=== PATIENT | male | born 1960 | race Caucasian/White ===

== ENCOUNTER → 2016-12-31 | Outpatient (CLI) | payer MEDICARE, BC | END | disposition home or self-care (01) | LOC: LABWHC1 10:54 | PROVIDERS: ATTEND Family Medicine | DX: Z09 Encounter for follow-up examination after completed treatment for conditions other than malignant neoplasm (principal); Z96.641 Presence of right artificial hip joint; Z96.642 Presence of left artificial hip joint | CPT/HCPCS: 36415; 82495; 83018 ==

== ENCOUNTER 2017-01-12 23:52 | Emergency (ER) | payer MEDICARE, BC ==
[2017-01-12 23:57] VITALS: RESP 20; TEMP 97.1
--- NOTE | 2017-01-13 00:10 | ED ---
Extremity Problem HPI - General Chief complaint: Extremity Problem,Nontraumatic Stated complaint: Leg pain Time Seen by Provider: 01/12/17 23:58 Source: patient, RN notes reviewed Mode of arrival: wheelchair Limitations: no limitations - History of Present Illness Initial comments: 56-year-old male presents to the emergency Department chief complaint of increased bilateral lower extremities swelling. Patient states he has a history of heart failure he has a history of cellulitis to the legs. Patient states her last 2 weeks he's noticed some increase in swelling he has noticed some mild shortness of breath as well. Patient states that he is having more Difficulty time walking. Patient states he has not been wearing his compression hose couldn't is unable to get them on. Patient states he was swelling without that he should be evaluated. Patient denies any recent fever, chills, shortness of breath, chest pain, back pain, abdominal pain, nausea vomiting, numbness or tingling, dysuria or hematuria, constipation or diarrhea, headaches or visual changes, or any other current symptoms. - Related Data Home Medications Medication Instructions Recorded Confirmed Aspirin 81 mg PO DAILY 09/13/14 10/08/16 Furosemide [Lasix] 40 mg PO DAILY 09/13/14 10/08/16 LORazepam [Ativan] 1 mg PO TID 09/13/14 10/08/16 Potassium Chloride [Klor-Con 20] 20 meq PO TID 09/13/14 10/08/16 buPROPion HCL [Wellbutrin] 150 mg PO QAM 09/13/14 10/08/16 Ergocalciferol [Vitamin D2 50,000 unit PO WESA 09/03/15 10/08/16 (DRISDOL)] Ferrous Sulfate [Feosol] 325 mg PO BID 09/03/15 10/08/16 OLANZapine [ZyPREXA] 20 mg PO HS 09/03/15 10/08/16 Omeprazole [PriLOSEC] 20 mg PO AC-BRKFST 09/03/15 10/08/16 Vitamin E 1,000 unit PO HS 09/03/15 10/08/16 lamoTRIgine 150 mg PO BID 09/03/15 10/08/16 Budesonide-Formot 160-4.5 Mcg 2 puff INHALATION RT-BID PRN 01/31/16 10/08/16 [Symbicort 160-4.5 Mcg Inhaler] Atorvastatin [Lipitor] 10 mg PO DAILY 06/09/16 10/08/16 Allopurinol [Zyloprim] 300 mg PO DAILY 06/17/16 10/08/16 Metolazone [Zaroxolyn] 2.5 mg PO DAILY 06/17/16 10/08/16 Morphine Sulfate [Morphine Sulfate 60 mg PO W/SUPPER 06/17/16 10/08/16 ER] Morphine Sulfate [Morphine Sulfate 120 mg PO QAM 06/17/16 10/08/16 ER] Vitamin B 6,000 mg PO DAILY 06/17/16 10/08/16 Vit C/E/Zn/Coppr/Lutein/Zeaxan 1 cap PO BID 08/21/16 10/08/16 [Preservision Areds 2 Softgel] Previous Rx's Medication Instructions Recorded Cephalexin [Keflex] 500 mg PO TID #9 cap 10/12/16 Spironolactone [Aldactone] 25 mg PO BID #60 tab 10/12/16 Cephalexin [Keflex] 500 mg PO Q6HR #40 cap 01/13/17 Allergies Allergy/AdvReac Type Severity Reaction Status Date / Time codeine Allergy Severe Anaphylaxis Verified 01/12/17 23:57 piperacillin sodium Allergy Unknown Verified 01/12/17 23:57 [From Zosyn] tazobactam sodium Allergy Unknown Verified 01/12/17 23:57 [From Zosyn] Review of Systems ROS Statement: Those systems with pertinent positive or pertinent negative responses have been documented in the HPI. ROS Other: All systems not noted in ROS Statement are negative. Past Medical History Past Medical History: Asthma, Cancer, COPD, Deep Vein Thrombosis (DVT), GERD/ Reflux, GI Bleed, Hyperlipidemia, Musculoskeletal Disorder, Osteoarthritis (OA) , Pulmonary Embolus (PE), Skin Disorder, Sleep Apnea/CPAP/BIPAP Additional Past Medical History / Comment(s): HYPOGLYCEMIA. NO C-PAP. DDD, SCOLIOSIS OF SPINE, SLEEPS IN RECLINER, PAIN UNCONTROLLED. HAVING MUSCLE FATIGUE. HX OF SKIN CANCER FACE, BACK. Hiatal Hernia. Irregular HR in the past. DVT IN LEG, WENT TO LUNG - AFTER HIP SURG. BLOOD FROM RECTUM RECENTLY. History of Any Multi-Drug Resistant Organisms: MRSA Date of last positivie culture/infection: AUG 2014 MDRO Source:: NASAL Past Surgical History: Appendectomy, Bariatric Surgery, Heart Catheterization, Hernia Repair, Joint Replacement, Orthopedic Surgery Additional Past Surgical History / Comment(s): RT ELBOW SURG X2, TOTAL RT HIP, LT KNEE X2, RT ANKLE RECONSTRUCTIVE SURG, JANUARY 2014 GASTRIC SLEEVE, COLONOSCOPY'S. Basal Cell CA Face, Back. LT ING HERNIA 05/2016. Past Anesthesia/Blood Transfusion Reactions: Previous Problems w/ Anesthesia Additional Past Anesthesia/Blood Transfusion Reaction / Comment(s): STATES HE WAS TOLD HE WAS A DIFFICULT INTUBATION WITH GASTRIC SLEEVE SURGERY, Difficulty Breathing UPON Waking Up. Past Psychological History: Anxiety, Depression, Panic Disorder, Schizoaffective Disorder Additional Psychological History / Comment(s): STATES PARANOID AT TIMES, claustrophobic, states very nervous about having general anesthesia. Smoking Status: Former smoker Past Alcohol Use History: None Reported Additional Past Alcohol Use History / Comment(s): QUIT SMOKING 1998, smoked 4 cigerettes/day, statrted as a teenager. FORMER ETOH ABUSE. Past Drug Use History: Marijuana Additional Drug Use History / Comment(s): PAST HX OF MARIJUANA USE, DENIES USE IN YEARS. - Past Family History Father Family Medical History: Cancer Additional Family Medical History / Comment(s): LUNG CA General Exam - General Exam Comments Initial Comments: General: The patient is awake and alert, in no distress, and does not appear acutely ill. Eye: Pupils are equal, round and reactive to light, extra-ocular movements are intact; there is normal conjunctiva bilaterally. No signs of icterus. Ears, nose, mouth and throat: There are moist mucous membranes and no oral lesions. Neck: The neck is supple, there is no tenderness. Cardiovascular: There is a regular rate and rhythm. No murmur, rub or gallop is appreciated. Respiratory: Lungs are clear to auscultation, respirations are non-labored, breath sounds are equal. No wheezes, stridor, rales, or rhonchi. Gastrointestinal: Soft, non-distended, non-tender abdomen without masses or organomegaly noted. There is no rebound or guarding present. No CVA tenderness. Bowel sounds are unremarkable. Back: There is no tenderness to palpation in the midline. There is no obvious deformity. No rashes noted. Musculoskeletal: Normal ROM, no tenderness, There is no pedal edema. 2+ edema bilateral lower family swelling. Sensation intact. Pulses equal bilaterally 2+ . Neurological: CN II-XII intact, There are no obvious motor or sensory deficits. Coordination appears grossly intact. Speech is normal. Skin: Skin is warm and dry and no rashes or lesions are noted. Psychiatric: Cooperative, appropriate mood & affect, normal judgment. Limitations: no limitations Course Vital Signs 01/12/17 23:55 Temperature 97.1 F L Pulse Rate 88 Respiratory 20 Rate Blood Pressure 139/69 O2 Sat by Pulse 99 Oximetry Medical Decision Making - Medical Decision Making 56-year-old male presents emergency Department chief complaint of leg swelling and mild redness. This patient's legs are swollen than just mild redness to the area. Patient's laboratory is reviewed that does not show any acute findings. At this time we will give the patient one dose of Lasix here. We will also start him on Keflex for possible mild lower externa a cellulitis. We discussed return parameters and follow-up. We discussed all the patient's questions. He stated he understood and evening. This plan. All questions have been answered. He will be discharged. - Lab Data Result diagrams: 01/13/17 00:33 01/13/17 00:33 Lab Results 01/13/17 01/13/17 01/13/17 Range/Units 00:33 00:33 00:33 WBC 6.6 (3.8-10.6) k/uL RBC 4.28 L (4.30-5.90) m/uL Hgb 12.5 L (13.0-17.5) gm/dL Hct 38.0 L (39.0-53.0) % MCV 88.7 (80.0-100.0) fL MCH 29.1 (25.0-35.0) pg MCHC 32.8 (31.0-37.0) g/dL RDW 13.9 (11.5-15.5) % Plt Count 225 (150-450) k/uL Neutrophils % 56 % Lymphocytes % 31 % Monocytes % 7 % Eosinophils % 3 % Basophils % 1 % Neutrophils # 3.7 (1.3-7.7) k/uL Lymphocytes # 2.1 (1.0-4.8) k/uL Monocytes # 0.4 (0-1.0) k/uL Eosinophils # 0.2 (0-0.7) k/uL Basophils # 0.1 (0-0.2) k/uL PT (9.0-12.0) sec INR (<1.1) APTT (22.0-30.0) sec Sodium (137-145) mmol/L Potassium (3.5-5.1) mmol/L Chloride (98-107) mmol/L Carbon Dioxide (22-30) mmol/L Anion Gap mmol/L BUN (9-20) mg/dL Creatinine (0.66-1.25) mg/dL Est GFR (MDRD) Af Amer (>60 ml/min/1.73 sqM) Est GFR (MDRD) Non-Af (>60 ml/min/1.73 sqM) Glucose (74-99) mg/dL Calcium (8.4-10.2) mg/dL Magnesium (1.6-2.3) mg/dL Total Bilirubin (0.2-1.3) mg/dL AST (17-59) U/L ALT (21-72) U/L Alkaline Phosphatase (38-126) U/L Total Creatine Kinase 89 (55-170) U/L CK-MB (CK-2) 1.7 (0.0-2.4) ng/mL CK-MB (CK-2) Rel Index 1.9 Troponin I <0.012 (0.000-0.034) ng/mL NT-Pro-B Natriuret Pep 267 pg/mL Total Protein (6.3-8.2) g/dL Albumin (3.5-5.0) g/dL 01/13/17 01/13/17 Range/Units 00:33 00:33 WBC (3.8-10.6) k/uL RBC (4.30-5.90) m/uL Hgb (13.0-17.5) gm/dL Hct (39.0-53.0) % MCV (80.0-100.0) fL MCH (25.0-35.0) pg MCHC (31.0-37.0) g/dL RDW (11.5-15.5) % Plt Count (150-450) k/uL Neutrophils % % Lymphocytes % % Monocytes % % Eosinophils % % Basophils % % Neutrophils # (1.3-7.7) k/uL Lymphocytes # (1.0-4.8) k/uL Monocytes # (0-1.0) k/uL Eosinophils # (0-0.7) k/uL Basophils # (0-0.2) k/uL PT 10.4 (9.0-12.0) sec INR 1.0 (<1.1) APTT 24.9 (22.0-30.0) sec Sodium 137 (137-145) mmol/L Potassium 3.5 (3.5-5.1) mmol/L Chloride 91 L (98-107) mmol/L Carbon Dioxide 35 H (22-30) mmol/L Anion Gap 11 mmol/L BUN 37 H (9-20) mg/dL Creatinine 1.20 (0.66-1.25) mg/dL Est GFR (MDRD) Af Amer >60 (>60 ml/min/1.73 sqM) Est GFR (MDRD) Non-Af >60 (>60 ml/min/1.73 sqM) Glucose 114 H (74-99) mg/dL Calcium 9.2 (8.4-10.2) mg/dL Magnesium 1.4 L (1.6-2.3) mg/dL Total Bilirubin 0.5 (0.2-1.3) mg/dL AST 22 (17-59) U/L ALT 35 (21-72) U/L Alkaline Phosphatase 87 (38-126) U/L Total Creatine Kinase (55-170) U/L CK-MB (CK-2) (0.0-2.4) ng/mL CK-MB (CK-2) Rel Index Troponin I (0.000-0.034) ng/mL NT-Pro-B Natriuret Pep pg/mL Total Protein 6.3 (6.3-8.2) g/dL Albumin 3.8 (3.5-5.0) g/dL 01/13/17 01:49 Normal sinus rhythm, ventricular rate 69, MD interval 170, QRS duration is 122 - Radiology Data Radiology results: report reviewed, image reviewed Disposition Clinical Impression: Lower extremity edema, Lower extremity cellulitis Disposition: HOME SELF-CARE Condition: Stable Instructions: Cellulitis (ED), Leg Edema (ED) Additional Instructions: Please use medication as discussed. Please follow up with family doctor if symptoms have not improved over the next two days. Please return to the emergency room if your symptoms increase or worsen or for any other concerns. Prescriptions: Cephalexin [Keflex] 500 mg PO Q6HR #40 cap Referrals: Yokasta Hinds DO [Primary Care Provider] - 1-2 days Time of Disposition: 01:50
[2017-01-13 00:55] LABS: Basophils # (A) 0.1 k/uL (0-0.2); Basophils % (A) 1 %; CH 30.2; CHCM 34.2; Eosinophils # (A) 0.2 k/uL (0-0.7); Eosinophils % (A) 3 %; HGB 12.5 gm/dL (13.0-17.5); Luc # (Auto) 0.12; Luc % (Auto) 2; Lymphocytes # (A) 2.1 k/uL (1.0-4.8); Lymphocytes % (A) 31 %; MCH 29.1 pg (25.0-35.0); MCHC 32.8 g/dL (31.0-37.0); MCV 88.7 fL (80.0-100.0); Mean Platelet Volume 7.9; Monocytes # (A) 0.4 k/uL (0-1.0); Monocytes % (A) 7 %; Neutrophils # (A) 3.7 k/uL (1.3-7.7); Neutrophils % (A) 56 %; RBC 4.28 m/uL (4.30-5.90); RDW 13.9 % (11.5-15.5); WBC 6.6 k/uL (3.8-10.6); WBC (Perox) 6.51
[2017-01-13 01:05] LABS: ALT 35 U/L (21-72); AST 22 U/L (17-59); Alkaline Phosphatase 87 U/L (38-126); Anion Gap 11 mmol/L; Blood Urea Nitrogen 37 mg/dL (9-20); Calcium 9.2 mg/dL (8.4-10.2); Carbon Dioxide 35 mmol/L (22-30); Chloride 91 mmol/L (98-107); Glucose 114 mg/dL (74-99); Magnesium 1.4 mg/dL (1.6-2.3); Non-African American GFR(MDRD) >60 (>60 ml/min/1.73 sqM); Partial Thromboplastin Time 24.9 sec (22.0-30.0); Potassium 3.5 mmol/L (3.5-5.1); Prothrombin Time 10.4 sec (9.0-12.0); Sodium 137 mmol/L (137-145); Total Bilirubin 0.5 mg/dL (0.2-1.3); Total Protein 6.3 g/dL (6.3-8.2)
[2017-01-13 01:16] LABS: Creatine Kinase 89 U/L (55-170)
[2017-01-13 01:29] LABS: Creatine Kinase MB 1.7 ng/mL (0.0-2.4); Troponin I <0.012 ng/mL (0.000-0.034)
--- NOTE | 2017-01-13 01:40 | XR ---
EXAMINATION TYPE: XR chest 2V DATE OF EXAM: 01/13/2017 12:47 AM COMPARISON: 10/08/2016 HISTORY: Chest pain bilateral lower extremity weakness and redness. TECHNIQUE: Frontal and lateral views of the chest are obtained. FINDINGS: Stable atelectasis and scarring noted in the right lung base. No focal pneumonia pneumothorax or pleu ral effusion is noted. Mild emphysematous changes are suggested in both lungs. The cardiac silhouette size is within normal limits. [id number] degenerative changes are presen t in the thoracic spine with mild old wedge compression deformities. IMPRESSION: 1. Stable atelectasis and scarring in the right lung base. 2. Chronic lung changes. 3. No focal pneumonia.
[2017-01-13] MEDS ORDERED: FUROSEMIDE 10 MG/ML 4 ML VIAL IV STA (01:50)
[2017-01-13 02:17] VITALS: BP 126/56; PULSE 69
== END 2017-01-13 02:16 | disposition home or self-care (01) ==
LOC: EC 23:52
DX: L03.115 Cellulitis of right lower limb (principal); L03.116 Cellulitis of left lower limb; M19.90 Unspecified osteoarthritis, unspecified site; F25.9 Schizoaffective disorder, unspecified; F32.9 Major depressive disorder, single episode, unspecified; F41.0 Panic disorder [episodic paroxysmal anxiety]; K21.9 Gastro-esophageal reflux disease without esophagitis; J44.9 Chronic obstructive pulmonary disease, unspecified; J45.909 Unspecified asthma, uncomplicated; E78.5 Hyperlipidemia, unspecified; Z87.891 Personal history of nicotine dependence; Z79.82 Long term (current) use of aspirin; Z79.899 Other long term (current) drug therapy; Z88.5 Allergy status to narcotic agent; Z88.0 Allergy status to penicillin; Z86.79 Personal history of other diseases of the circulatory system; Z86.718 Personal history of other venous thrombosis and embolism; Z86.2 Personal history of diseases of the blood and blood-forming organs and certain disorders involving the immune mechanism; Z96.652 Presence of left artificial knee joint; Z96.641 Presence of right artificial hip joint; Z96.661 Presence of right artificial ankle joint; Z98.890 Other specified postprocedural states
CPT/HCPCS: 99284 ×2; 96374 ×2; 36415; 93005; 83880; 80053; 82550; 82553; 83735; 84484; 85025; 85610; 85730; 87040; 71020; J1940

== ENCOUNTER 2017-01-23 21:16 | Emergency (ER) | payer MEDICARE, BC ==
[2017-01-23 21:24] VITALS: TEMP 97.5
[2017-01-23] MEDS ORDERED: ASPIRIN 325 MG TAB PO STA (21:53)
[2017-01-23 22:10] LABS: Basophils # (A) 0.1 k/uL (0-0.2); Basophils % (A) 1 %; CH 29.9; CHCM 33.8; Eosinophils # (A) 0.2 k/uL (0-0.7); Eosinophils % (A) 2 %; HCT 38.5 % (39.0-53.0); HDW 2.54; Luc # (Auto) 0.12; Luc % (Auto) 1; Lymphocytes # (A) 1.8 k/uL (1.0-4.8); Lymphocytes % (A) 21 %; MCH 29.9 pg (25.0-35.0); MCHC 33.6 g/dL (31.0-37.0); MCV 88.9 fL (80.0-100.0); Mean Platelet Volume 7.2; Monocytes # (A) 0.4 k/uL (0-1.0); Monocytes % (A) 5 %; Neutrophils # (A) 6.1 k/uL (1.3-7.7); Neutrophils % (A) 70 %; RBC 4.33 m/uL (4.30-5.90); RDW 13.8 % (11.5-15.5); WBC 8.7 k/uL (3.8-10.6)
[2017-01-23 22:18] LABS: Anion Gap 11 mmol/L; Blood Urea Nitrogen 34 mg/dL (9-20); Calcium 9.3 mg/dL (8.4-10.2); Carbon Dioxide 33 mmol/L (22-30); Chloride 93 mmol/L (98-107); Glucose 101 mg/dL (74-99); Non-African American GFR(MDRD) >60 (>60 ml/min/1.73 sqM); Potassium 3.5 mmol/L (3.5-5.1); Sodium 137 mmol/L (137-145)
--- NOTE | 2017-01-23 22:44 | XR ---
EXAM: PA and lateral views of the chest (3 views) INDICATION: 56-year-old male with lower extremity edema. COMPARISON: Chest radiograph 01/13/2017. FINDINGS: PA and lateral views of the chest show lungs and pleural margins are clear of consolidation, pneumothorax, or pleural effusion. Cardiomediastinal silhouette is stable. Stable scarring or atelectasis in the right lung base. There is prominence of the pulmonary vasculature, as before. Degenerative changes of the right acromioclavicular joint. Osseous structures are intact. Upper abdomen is unremarkable as visualized. IMPRESSION: No acute chest process or significant change since comparison.
[2017-01-24 00:42] VITALS: BP 131/78; PULSE 72; RESP 18
--- NOTE | 2017-01-24 00:52 | ED ---
General Adult HPI - General Chief complaint: Extremity Injury, Lower Stated complaint: lower extremity pain Source: patient, EMS Mode of arrival: EMS - History of Present Illness Initial comments: 56-year-old male with past medical history of asthma, cancer, COPD, DVT, GERD, GI bleed, hyperlipidemia, osteoarthritis, PE, sleep apnea presented for evaluation of lower extremity discoloration. He was seen at this facility about 11 days ago for evaluation of the same thing. At the time he was given a dose of Lasix and antibiotics prophylactically for lower extremity cellulitis. He is advised to follow-up with his primary care physician but states that he never made an appointment. He states that when he came here last time he was told that his legs are not red and off to be a cellulitis even though he was treated with antibiotics. During his evaluation today he uncovered his legs and stated they must be red enough now. He denies any associated shortness of breath, chest pain, fevers, chills, nausea, vomiting, focal swelling to one leg greater than the other. - Related Data Home Medications Medication Instructions Recorded Confirmed Aspirin 81 mg PO DAILY 09/13/14 10/08/16 Furosemide [Lasix] 40 mg PO DAILY 09/13/14 10/08/16 LORazepam [Ativan] 1 mg PO TID 09/13/14 10/08/16 Potassium Chloride [Klor-Con 20] 20 meq PO TID 09/13/14 10/08/16 buPROPion HCL [Wellbutrin] 150 mg PO QAM 09/13/14 10/08/16 Ergocalciferol [Vitamin D2 50,000 unit PO WESA 09/03/15 10/08/16 (DRISDOL)] Ferrous Sulfate [Feosol] 325 mg PO BID 09/03/15 10/08/16 OLANZapine [ZyPREXA] 20 mg PO HS 09/03/15 10/08/16 Omeprazole [PriLOSEC] 20 mg PO AC-BRKFST 09/03/15 10/08/16 Vitamin E 1,000 unit PO HS 09/03/15 10/08/16 lamoTRIgine 150 mg PO BID 09/03/15 10/08/16 Budesonide-Formot 160-4.5 Mcg 2 puff INHALATION RT-BID PRN 01/31/16 10/08/16 [Symbicort 160-4.5 Mcg Inhaler] Atorvastatin [Lipitor] 10 mg PO DAILY 06/09/16 10/08/16 Allopurinol [Zyloprim] 300 mg PO DAILY 06/17/16 10/08/16 Metolazone [Zaroxolyn] 2.5 mg PO DAILY 06/17/16 10/08/16 Morphine Sulfate [Morphine Sulfate 60 mg PO W/SUPPER 06/17/16 10/08/16 ER] Morphine Sulfate [Morphine Sulfate 120 mg PO QAM 06/17/16 10/08/16 ER] Vitamin B 6,000 mg PO DAILY 06/17/16 10/08/16 Vit C/E/Zn/Coppr/Lutein/Zeaxan 1 cap PO BID 08/21/16 10/08/16 [Preservision Areds 2 Softgel] Previous Rx's Medication Instructions Recorded Cephalexin [Keflex] 500 mg PO TID #9 cap 10/12/16 Spironolactone [Aldactone] 25 mg PO BID #60 tab 10/12/16 Cephalexin [Keflex] 500 mg PO Q6HR #40 cap 01/13/17 Allergies Allergy/AdvReac Type Severity Reaction Status Date / Time codeine Allergy Severe Anaphylaxis Verified 01/12/17 23:57 piperacillin sodium Allergy Unknown Verified 01/12/17 23:57 [From Zosyn] tazobactam sodium Allergy Unknown Verified 01/12/17 23:57 [From Zosyn] Review of Systems ROS Statement: Those systems with pertinent positive or pertinent negative responses have been documented in the HPI. ROS Other: All systems not noted in ROS Statement are negative. Constitutional: Denies: fever, chills Eyes: Denies: eye pain, eye discharge ENT: Denies: ear pain, throat pain Respiratory: Denies: cough, dyspnea Cardiovascular: Denies: chest pain, palpitations Endocrine: Denies: fatigue, polydipsia, polyuria Gastrointestinal: Denies: abdominal pain, nausea, vomiting Genitourinary: Denies: urgency, dysuria Musculoskeletal: Denies: back pain, arthralgia, myalgia Skin: Reports: change in color, other (Discoloration to the medial side of bilateral feet. Lower extremity swelling/edema chronic but improved from baseline. ). Denies: rash Neurological: Denies: headache, weakness Psychiatric: Denies: anxiety, depression Past Medical History Past Medical History: Asthma, Cancer, COPD, Deep Vein Thrombosis (DVT), GERD/ Reflux, GI Bleed, Hyperlipidemia, Musculoskeletal Disorder, Osteoarthritis (OA) , Pulmonary Embolus (PE), Skin Disorder, Sleep Apnea/CPAP/BIPAP Additional Past Medical History / Comment(s): HYPOGLYCEMIA. NO C-PAP. DDD, SCOLIOSIS OF SPINE, SLEEPS IN RECLINER, PAIN UNCONTROLLED. HAVING MUSCLE FATIGUE. HX OF SKIN CANCER FACE, BACK. Hiatal Hernia. Irregular HR in the past. DVT IN LEG, WENT TO LUNG - AFTER HIP SURG. BLOOD FROM RECTUM RECENTLY. History of Any Multi-Drug Resistant Organisms: MRSA Date of last positivie culture/infection: AUG 2014 MDRO Source:: NASAL Past Surgical History: Appendectomy, Bariatric Surgery, Heart Catheterization, Hernia Repair, Joint Replacement, Orthopedic Surgery Additional Past Surgical History / Comment(s): RT ELBOW SURG X2, TOTAL RT HIP, LT KNEE X2, RT ANKLE RECONSTRUCTIVE SURG, JANUARY 2014 GASTRIC SLEEVE, COLONOSCOPY'S. Basal Cell CA Face, Back. LT ING HERNIA 05/2016. Past Anesthesia/Blood Transfusion Reactions: Previous Problems w/ Anesthesia Additional Past Anesthesia/Blood Transfusion Reaction / Comment(s): STATES HE WAS TOLD HE WAS A DIFFICULT INTUBATION WITH GASTRIC SLEEVE SURGERY, Difficulty Breathing UPON Waking Up. Past Psychological History: Anxiety, Depression, Panic Disorder, Schizoaffective Disorder Additional Psychological History / Comment(s): STATES PARANOID AT TIMES, claustrophobic, states very nervous about having general anesthesia. Smoking Status: Former smoker Past Alcohol Use History: None Reported Additional Past Alcohol Use History / Comment(s): QUIT SMOKING 1998, smoked 4 cigerettes/day, statrted as a teenager. FORMER ETOH ABUSE. Past Drug Use History: Marijuana Additional Drug Use History / Comment(s): PAST HX OF MARIJUANA USE, DENIES USE IN YEARS. - Past Family History Father Family Medical History: Cancer Additional Family Medical History / Comment(s): LUNG CA General Exam General appearance: alert, in no apparent distress Head exam: Present: atraumatic, normocephalic Eye exam: Present: normal appearance, EOMI ENT exam: Present: normal exam, normal oropharynx, mucous membranes moist Neck exam: Present: normal inspection. Absent: tenderness Respiratory exam: Present: normal lung sounds bilaterally. Absent: respiratory distress, wheezes, rales Cardiovascular Exam: Present: regular rate, normal rhythm. Absent: bradycardia , tachycardia GI/Abdominal exam: Present: soft. Absent: distended, tenderness, guarding Rectal exam: Present: deferred Extremities exam: Present: normal inspection, full ROM Back exam: Present: normal inspection, full ROM Neurological exam: Present: alert, oriented X3 Psychiatric exam: Present: normal affect, normal mood Skin exam: Present: warm, dry, intact, erythema, other (Erythematous discoloration of the medial side bilateral feet without warmth to palpation. There is no induration. There is overlying edema to bilateral lower extremities and erythema is in a gravity dependent distribution and is symmetrical bilaterally.) Course Vital Signs 01/23/17 01/23/17 01/24/17 21:19 22:46 00:41 Temperature 97.5 F L Pulse Rate 70 74 72 Respiratory 16 16 18 Rate Blood Pressure 131/60 131/77 131/78 O2 Sat by Pulse 95 96 95 Oximetry EKG Findings - EKG Comments: EKG Findings:: EKG shows normal sinus rhythm with nonspecific right ventricular conduction delay. Ventricular rate of 69, MERCEDES 154, QRS 122, QT/QTc 448/440. This is compared to an EKG from January 13 2017 which is similar. Medical Decision Making - Medical Decision Making 56-year-old male with past medical history as noted above presented for evaluation of lower extremity erythema and edema. 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 He states that he did not make any arrangements with his primary care physician or assembler [employer] but that the lower extremity erythema has persisted. On physical examination erythema is consistent with venous stasis/insufficiency. Is located on the medial aspect of both feet and is symmetrical. There is no induration or overlying warmth. He has significant edema to both lower extremities but he states this is improved from his baseline. He states that he has long-term shortness of breath with exertion and that this is not changed acutely recently there is no associated chest pain either. He had a recent admission during which he had an echo and a lower extremity duplex both of which were negative. We'll obtain a cardiac workup to rule out any abnormalities. Labs revealed no significant abnormalities and troponin were negative 2. His BNP was lower than his baseline value. EKG was unchanged from previous, chest x -ray showed no acute process. 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 He was further informed to return to this facility if his symptoms should worsen or persist. The patient acknowledged an understanding of this information and agreed with this plan of care. - Lab Data Result diagrams: 01/23/17 21:56 01/23/17 21:56 Lab Results 01/23/17 01/23/17 01/23/17 Range/Units 21:56 21:56 21:56 WBC 8.7 (3.8-10.6) k/uL RBC 4.33 (4.30-5.90) m/uL Hgb 13.0 (13.0-17.5) gm/dL Hct 38.5 L (39.0-53.0) % MCV 88.9 (80.0-100.0) fL MCH 29.9 (25.0-35.0) pg MCHC 33.6 (31.0-37.0) g/dL RDW 13.8 (11.5-15.5) % Plt Count 267 (150-450) k/uL Neutrophils % 70 % Lymphocytes % 21 % Monocytes % 5 % Eosinophils % 2 % Basophils % 1 % Neutrophils # 6.1 (1.3-7.7) k/uL Lymphocytes # 1.8 (1.0-4.8) k/uL Monocytes # 0.4 (0-1.0) k/uL Eosinophils # 0.2 (0-0.7) k/uL Basophils # 0.1 (0-0.2) k/uL Sodium 137 (137-145) mmol/L Potassium 3.5 (3.5-5.1) mmol/L Chloride 93 L (98-107) mmol/L Carbon Dioxide 33 H (22-30) mmol/L Anion Gap 11 mmol/L BUN 34 H (9-20) mg/dL Creatinine 1.22 (0.66-1.25) mg/dL Est GFR (MDRD) Af Amer >60 (>60 ml/min/1.73 sqM) Est GFR (MDRD) Non-Af >60 (>60 ml/min/1.73 sqM) Glucose 101 H (74-99) mg/dL Calcium 9.3 (8.4-10.2) mg/dL Troponin I (0.000-0.034) ng/mL NT-Pro-B Natriuret Pep 281 pg/mL 01/23/17 01/24/17 Range/Units 21:56 00:03 WBC (3.8-10.6) k/uL RBC (4.30-5.90) m/uL Hgb (13.0-17.5) gm/dL Hct (39.0-53.0) % MCV (80.0-100.0) fL MCH (25.0-35.0) pg MCHC (31.0-37.0) g/dL RDW (11.5-15.5) % Plt Count (150-450) k/uL Neutrophils % % Lymphocytes % % Monocytes % % Eosinophils % % Basophils % % Neutrophils # (1.3-7.7) k/uL Lymphocytes # (1.0-4.8) k/uL Monocytes # (0-1.0) k/uL Eosinophils # (0-0.7) k/uL Basophils # (0-0.2) k/uL Sodium (137-145) mmol/L Potassium (3.5-5.1) mmol/L Chloride (98-107) mmol/L Carbon Dioxide (22-30) mmol/L Anion Gap mmol/L BUN (9-20) mg/dL Creatinine (0.66-1.25) mg/dL Est GFR (MDRD) Af Amer (>60 ml/min/1.73 sqM) Est GFR (MDRD) Non-Af (>60 ml/min/1.73 sqM) Glucose (74-99) mg/dL Calcium (8.4-10.2) mg/dL Troponin I <0.012 <0.012 (0.000-0.034) ng/mL NT-Pro-B Natriuret Pep pg/mL Disposition Clinical Impression: Venous stasis, Venous stasis dermatitis of both lower extremities Disposition: HOME SELF-CARE Condition: Stable Instructions: Peripheral Vascular Disease (ED) Referrals: Yokasta Hinds DO [Primary Care Provider] - 1-2 days Time of Disposition: 00:52
== END 2017-01-24 01:00 | disposition home or self-care (01) ==
LOC: EC 21:16
DX: I87.2 Venous insufficiency (chronic) (peripheral) (principal); J45.909 Unspecified asthma, uncomplicated; J44.9 Chronic obstructive pulmonary disease, unspecified; K21.9 Gastro-esophageal reflux disease without esophagitis; E78.5 Hyperlipidemia, unspecified; M19.90 Unspecified osteoarthritis, unspecified site; F25.9 Schizoaffective disorder, unspecified; F41.9 Anxiety disorder, unspecified; F32.9 Major depressive disorder, single episode, unspecified; F41.0 Panic disorder [episodic paroxysmal anxiety]; Z87.891 Personal history of nicotine dependence; Z79.899 Other long term (current) drug therapy; Z88.0 Allergy status to penicillin; Z88.1 Allergy status to other antibiotic agents; Z88.5 Allergy status to narcotic agent; Z86.718 Personal history of other venous thrombosis and embolism; Z85.828 Personal history of other malignant neoplasm of skin; Z86.711 Personal history of pulmonary embolism; Z96.641 Presence of right artificial hip joint; Z96.652 Presence of left artificial knee joint
CPT/HCPCS: 36415; 71020; 80048; 83880; 84484; 85025; 93005; 99284

== ENCOUNTER 2017-03-05 00:16 | Emergency (ER) | payer MEDICARE, BC ==
--- NOTE | 2017-03-05 01:01 | ED ---
General Adult HPI - General Chief complaint: Extremity Problem,Nontraumatic Stated complaint: R Ankle/Foot/Leg Pain Time Seen by Provider: 03/05/17 00:38 Source: patient, RN notes reviewed Mode of arrival: ambulatory Limitations: no limitations - History of Present Illness Initial comments: This is an 56-year-old male who presents with right foot and ankle pain 1 month. Patient states 10 days ago he was put on uloric for gout. Patient states since then the pain has been getting worse in his right ankle. Patient states the pain in his joints has been improving but it still hurts to ambulate. Patient denies any fall or trauma to the right lower extremity. Patient states he has also noticed some pain in the back of the right leg as well. Patient denies any increasing shortness of breath, cough, congestion and states he has chronic leg swelling. Patient denies any recent fever, chills, chest pain, abdominal pain, nausea/vomiting/diarrhea, back pain, numbness, tingling, hematuria, headache, or visual changes, or any other complaints. - Related Data Home Medications Medication Instructions Recorded Confirmed Aspirin 81 mg PO DAILY 09/13/14 03/05/17 Furosemide [Lasix] 40 mg PO DAILY 09/13/14 03/05/17 LORazepam [Ativan] 1 mg PO TID 09/13/14 03/05/17 Potassium Chloride [Klor-Con 20] 20 meq PO TID 09/13/14 03/05/17 buPROPion HCL [Wellbutrin] 150 mg PO QAM 09/13/14 03/05/17 Ergocalciferol [Vitamin D2 50,000 unit PO WESA 09/03/15 03/05/17 (DRISDOL)] Ferrous Sulfate [Feosol] 325 mg PO BID 09/03/15 03/05/17 OLANZapine [ZyPREXA] 20 mg PO HS 09/03/15 03/05/17 Omeprazole [PriLOSEC] 20 mg PO AC-BRKFST 09/03/15 03/05/17 Vitamin E 1,000 unit PO HS 09/03/15 03/05/17 lamoTRIgine 150 mg PO BID 09/03/15 03/05/17 Budesonide-Formot 160-4.5 Mcg 2 puff INHALATION RT-BID PRN 01/31/16 03/05/17 [Symbicort 160-4.5 Mcg Inhaler] Atorvastatin [Lipitor] 10 mg PO DAILY 06/09/16 03/05/17 Metolazone [Zaroxolyn] 2.5 mg PO DAILY 06/17/16 03/05/17 Morphine Sulfate [Morphine Sulfate 60 mg PO W/SUPPER 06/17/16 03/05/17 ER] Morphine Sulfate [Morphine Sulfate 120 mg PO QAM 06/17/16 03/05/17 ER] Vitamin B 6,000 mg PO DAILY 06/17/16 03/05/17 Vit C/E/Zn/Coppr/Lutein/Zeaxan 1 cap PO BID 08/21/16 03/05/17 [Preservision Areds 2 Softgel] Previous Rx's Medication Instructions Recorded Spironolactone [Aldactone] 25 mg PO BID #60 tab 10/12/16 Cephalexin [Keflex] 500 mg PO Q12HR 7 Days 03/05/17 Allergies Allergy/AdvReac Type Severity Reaction Status Date / Time codeine Allergy Severe Anaphylaxis Verified 01/12/17 23:57 piperacillin sodium Allergy Unknown Verified 01/12/17 23:57 [From Zosyn] tazobactam sodium Allergy Unknown Verified 01/12/17 23:57 [From Zosyn] Review of Systems ROS Statement: Those systems with pertinent positive or pertinent negative responses have been documented in the HPI. ROS Other: All systems not noted in ROS Statement are negative. Past Medical History Past Medical History: Asthma, Cancer, COPD, Deep Vein Thrombosis (DVT), GERD/ Reflux, GI Bleed, Hyperlipidemia, Musculoskeletal Disorder, Osteoarthritis (OA) , Pulmonary Embolus (PE), Skin Disorder, Sleep Apnea/CPAP/BIPAP Additional Past Medical History / Comment(s): HYPOGLYCEMIA. NO C-PAP. DDD, SCOLIOSIS OF SPINE, SLEEPS IN RECLINER, PAIN UNCONTROLLED. HAVING MUSCLE FATIGUE. HX OF SKIN CANCER FACE, BACK. Hiatal Hernia. Irregular HR in the past. DVT IN LEG, WENT TO LUNG - AFTER HIP SURG. BLOOD FROM RECTUM RECENTLY. History of Any Multi-Drug Resistant Organisms: MRSA Date of last positivie culture/infection: AUG 2014 MDRO Source:: NASAL Past Surgical History: Appendectomy, Bariatric Surgery, Heart Catheterization, Hernia Repair, Joint Replacement, Orthopedic Surgery Additional Past Surgical History / Comment(s): RT ELBOW SURG X2, TOTAL RT HIP, LT KNEE X2, RT ANKLE RECONSTRUCTIVE SURG, JANUARY 2014 GASTRIC SLEEVE, COLONOSCOPY'S. Basal Cell CA Face, Back. LT ING HERNIA 05/2016. Past Anesthesia/Blood Transfusion Reactions: Previous Problems w/ Anesthesia Additional Past Anesthesia/Blood Transfusion Reaction / Comment(s): STATES HE WAS TOLD HE WAS A DIFFICULT INTUBATION WITH GASTRIC SLEEVE SURGERY, Difficulty Breathing UPON Waking Up. Past Psychological History: Anxiety, Depression, Panic Disorder, Schizoaffective Disorder Additional Psychological History / Comment(s): STATES PARANOID AT TIMES, claustrophobic, states very nervous about having general anesthesia. Smoking Status: Former smoker Past Alcohol Use History: None Reported Additional Past Alcohol Use History / Comment(s): QUIT SMOKING 1998, smoked 4 cigerettes/day, statrted as a teenager. FORMER ETOH ABUSE. Past Drug Use History: None Reported Additional Drug Use History / Comment(s): PAST HX OF MARIJUANA USE, DENIES USE IN YEARS. - Past Family History Father Family Medical History: Cancer Additional Family Medical History / Comment(s): LUNG CA General Exam - General Exam Comments Initial Comments: General: The patient is awake and alert, in no distress, and does not appear acutely ill. Neck: The neck is supple, there is no tenderness or JVD. Cardiovascular: There is a regular rate and rhythm. No murmur, rub or gallop is appreciated. Respiratory: Lungs are clear to auscultation, respirations are non-labored, breath sounds are equal. No wheezes, stridor, rales, or rhonchi. Musculoskeletal: There is tenderness to palpation of the medial and lateral aspects of the right ankle. There is mild tenderness to the right foot. There is mild erythema to the medial aspect of the right ankle. There is mild right- sided calf tenderness and right lower extremity appears to be mildly more swollen than the left. 2+ pitting edema present bilaterally. Patient has full range of motion, strength 5/5 and Sensation intact. Dorsalis pedis pulses are 2 + bilaterally. Capillary refill is normal at less than 2 seconds. Neurological: A&O x 3. CN II-XII intact, There are no obvious motor or sensory deficits. Coordination appears grossly intact. Speech is normal. Skin: Skin is warm and dry and no rashes or lesions are noted. Psychiatric: Normal mood and affect. Limitations: no limitations Course Vital Signs 03/05/17 00:19 Temperature 99.2 F Pulse Rate 85 Respiratory 16 Rate Blood Pressure 142/65 Medical Decision Making - Medical Decision Making This is a 56-year-old male presents with right foot and ankle pain. On physical exam patient is well-appearing and afebrile. There is tenderness to palpation of the medial and lateral aspects of the right ankle. There is mild tenderness to the right foot. There is mild erythema to the medial aspect of the right ankle. There is mild right-sided calf tenderness and right lower extremity appears to be mildly more swollen than the left. 2+ pitting edema present bilaterally. Patient has full range of motion, strength 5/5 and Sensation intact. Dorsalis pedis pulses are 2+ bilaterally. Capillary refill is normal at less than 2 seconds. X-rays of the right foot and ankle were done and reviewed showing: X-ray right foot: No acute osseous abnormality identified. Prominent generalized soft tissue edema throughout the visualized right lower leg, ankle, and foot. Cellulitis cannot be excluded. Report by . X-ray right ankle: #1 no acute fracture or dislocation. No evidence of osteomyelitis. #2 generalized prominent soft tissue edema throughout the right lower leg, ankle, and foot. Cellulitis cannot be excluded. #3 well- circumscribed round lucency in the distal right fibula may be related to prior hardware. Correlate with clinical history. Report by Dr. Vail. Patient confirms that he does have a history of ankle surgery and had the hardware removed. A Doppler of the right lower extremity is done and reviewed showing: No evidence of deep venous thrombosis in the right lower extremity. Report by Dr. Vail. I discussed the results with patient. There is mild increased swelling to the right lower extremity and some warmth to the medial aspect of the right ankle so patient will be started on oral Keflex for cellulitis. I discussed rest, ice and elevating the leg. Patient states he has a walker that he can use for ambulation. Patient states he takes morphine twice a day for pain at home. I discussed return parameters at length and that the patient should follow-up with his primary care physician tomorrow or return to the for any worsening symptoms or for any further concerns. Patient was receptive to this plan and patient will be discharged home. I discussed this case with attending physician Dr. Nielson who agrees the plan as stated above. Disposition Clinical Impression: Cellulitis Disposition: HOME SELF-CARE Condition: Good Instructions: Cellulitis (ED) Additional Instructions: Please finish entire course of antibiotics. Please rest, ice, elevate and use her at home pain medications. Please follow-up with her primary care provider tomorrow. Please return to the [facility] for any worsening symptoms or for any further concerns. Prescriptions: Cephalexin [Keflex] 500 mg PO Q12HR 7 Days Time of Disposition: 02:59
--- NOTE | 2017-03-05 01:36 | US ---
EXAM: US Duplex Right Lower Extremity Veins. CLINICAL HISTORY: Reason: Pain TECHNIQUE: Real-time ultrasound scan of the veins of the right lower extremity with color Doppler flow, spectral waveform analysis and compression. COMPARISON: Ultrasound Doppler lower extremity bilateral/08/2016 FINDINGS: Normal compressibility is demonstrated from the right external iliac vein to the proximal calf veins. There is normal response to Valsalva and augmentation. Normal spontaneous phasic flow is noted. IMPRESSION: No evidence of deep venous thrombosis in the right lower extremity.
--- NOTE | 2017-03-05 02:01 | XR ---
EXAM: XR Right Ankle Complete, 3 or More Views. CLINICAL HISTORY: Reason: right foot/ankle pain, redness TECHNIQUE: Frontal, lateral and oblique views of the right ankle. COMPARISON: None FINDINGS: Bones/joints: No acute fracture or dislocation identified. Ankle mortise is intact. Well-circumscribed round lucent lesion in the distal right fibula may be related to prior hardware. Small plantar and posterior calcaneal spurs. Degenerative changes of the tibiotalar joint and dorsal midfoot. Soft tissues: Generalized soft tissue edema about the lower right leg and right ankle and foot. IMPRESSION: 1. No acute fracture or dislocation. No evidence of osteomyelitis. 2. Generalized prominent soft tissue edema throughout the right lower leg, ankle, and foot. Cellulitis cannot be excluded. 3. Well-circumscribed round lucency in the distal right fibula may be related to prior hardware. Correlate with clinical history.
--- NOTE | 2017-03-05 02:04 | XR ---
EXAM: XR Right Foot Complete, 3 or More Views. CLINICAL HISTORY: Reason: Pain TECHNIQUE: Frontal, lateral and oblique views of the right foot. COMPARISON: None FINDINGS: Bones/joints: No acute fracture or dislocation identified. Generalized osteopenia. Degenerative changes of the MTP joints and interphalangeal joints. Degenerative changes of the dorsal midfoot. No definite evidence of osteomyelitis. Soft tissues: Prominent generalized soft tissue edema throughout the right visualized lower leg, ankle, and foot. IMPRESSION: No acute osseous abnormality identified. Prominent generalized soft tissue edema throughout the visualized right lower leg, ankle, and foot. Cellulitis cannot be excluded.
[2017-03-05 03:09] VITALS: BP 145/78; PULSE 80; RESP 20; TEMP 98
== END 2017-03-05 03:08 | disposition home or self-care (01) ==
LOC: EC 00:16
DX: L03.115 Cellulitis of right lower limb (principal); M79.671 Pain in right foot; K21.9 Gastro-esophageal reflux disease without esophagitis; E78.5 Hyperlipidemia, unspecified; M19.90 Unspecified osteoarthritis, unspecified site; G47.30 Sleep apnea, unspecified; F41.9 Anxiety disorder, unspecified; F32.9 Major depressive disorder, single episode, unspecified; F41.0 Panic disorder [episodic paroxysmal anxiety]; Z86.711 Personal history of pulmonary embolism; Z86.718 Personal history of other venous thrombosis and embolism; Z88.5 Allergy status to narcotic agent; Z88.8 Allergy status to other drugs, medicaments and biological substances; Z79.899 Other long term (current) drug therapy; Z87.891 Personal history of nicotine dependence
CPT/HCPCS: 99284

== ENCOUNTER → 2017-04-10 | Outpatient (CLI) | payer MEDICARE, BC | END | disposition home or self-care (01) | LOC: LABWHC1 09:51 | PROVIDERS: ATTEND Family Medicine | DX: R79.89 Other specified abnormal findings of blood chemistry (principal); R82.5 Elevated urine levels of drugs, medicaments and biological substances | CPT/HCPCS: 36415; 82495; 83018 ==

== ENCOUNTER → 2017-07-19 | Outpatient (CLI) | payer MEDICARE, BC ==
--- NOTE | 2017-07-20 08:17 | NM ---
EXAMINATION TYPE: NM bone/joint limited DATE OF EXAM: 07/19/2017 COMPARISON: NONE HISTORY: Right hip pain TECHNIQUE: After the intravenous administration of 25.8 mCi Tc 99m MDP. Images acquired 3.25 hours post injection. Multiple views of pelvis are submitted. There is no abnormal uptake within the visualized osseous structures to suggest acute process. There is a photopenic defect within the right femoral head region. Correlate with the patient's surgical hi story. This could be compatible with a prosthesis. In the absence of prosthesis, other etiologies porsche uld be considered. MRI would be useful for additional evaluation. There are no plain film images for comparison at this location. IMPRESSION: 1. Correlate for history of a right hip prosthesis. In the absence of a prosthesis photopenic defect is present warranted additional workup. MRI may be useful. Plain film correlation would also be recom mended.
== END | disposition home or self-care (01) ==
LOC: RADNMMAIN 11:42
PROVIDERS: ATTEND Orthopaedic Surgery
DX: M25.551 Pain in right hip (principal); Z96.641 Presence of right artificial hip joint
CPT/HCPCS: 78300; A9503

== ENCOUNTER 2018-06-12 19:14 | Inpatient (IN) | payer MEDICARE, BC ==
[2018-06-12] MEDS ORDERED: IPRATROPIUM-ALBUTEROL 3 ML NEB INHALATION STA (19:32)
[2018-06-12 20:00] LABS: Basophils # (A) 0.1 k/uL (0-0.2); Basophils % (A) 0 %; Eosinophils # (A) 0.1 k/uL (0-0.7); Eosinophils % (A) 0 %; HCT 41.4 % (39.0-53.0); HGB 13.9 gm/dL (13.0-17.5); Lymphocytes # (A) 1.3 k/uL (1.0-4.8); Lymphocytes % (A) 9 %; MCH 28.7 pg (25.0-35.0); MCHC 33.6 g/dL (31.0-37.0); MCV 85.2 fL (80.0-100.0); Mean Platelet Volume 6.4; Monocytes # (A) 0.7 k/uL (0-1.0); Monocytes % (A) 5 %; Neutrophils # (A) 12.2 k/uL (1.3-7.7); Neutrophils % (A) 85 %; Platelet Count 309 k/uL (150-450); RBC 4.85 m/uL (4.30-5.90); RDW 13.4 % (11.5-15.5); WBC 14.4 k/uL (3.8-10.6)
[2018-06-12 20:16] LABS: Partial Thromboplastin Time 24.3 sec (22.0-30.0); Prothrombin Time 9.9 sec (9.0-12.0)
[2018-06-12 20:18] LABS: D-Dimer 0.74 mg/L FEU (<0.60)
--- NOTE | 2018-06-12 20:20 | XR ---
EXAMINATION TYPE: XR chest 2V DATE OF EXAM: 06/12/2018 COMPARISON: Prior chest 01/23/2017 HISTORY: Difficulty breathing TECHNIQUE: Frontal and lateral views of the chest are obtained on 3 images. FINDINGS: Patchy basilar density is present, patient is rotated and exam is expiratory. Heart size i s prominent and likely stable. No pneumothorax or pleural effusion evident. IMPRESSION: Findings may represent basilar atelectasis or scarring similar to prior exam, correlate, follow-up as indicated
[2018-06-12 20:21] LABS: Calcium 9.6 mg/dL (8.4-10.2); Total Bilirubin 0.8 mg/dL (0.2-1.3); Total Protein 6.5 g/dL (6.3-8.2)
[2018-06-12 20:22] LABS: Potassium 3.7 mmol/L (3.5-5.1)
[2018-06-12 20:39] LABS: Creatine Kinase 54 U/L (55-170)
[2018-06-12 20:50] LABS: Creatine Kinase MB 0.7 ng/mL (0.0-2.4); Troponin I <0.012 ng/mL (0.000-0.034)
--- NOTE | 2018-06-12 21:01 | US ---
EXAMINATION TYPE: US venous doppler duplex LE DATE OF EXAM: 06/12/2018 8:48 PM COMPARISON: right lower CLINICAL HISTORY: edema. SOB. Hx of blood clot in the lungs x 2. No hx of DVT. Not on blood thinne rs. No redness. SIDE PERFORMED: Bilateral TECHNIQUE: The lower extremity deep venous system is examined utilizing real time linear array sonog snehal with graded compression, doppler sonography and color-flow sonography. VESSELS IMAGED: External Iliac Vein (EIV) Common Femoral Vein Deep Femoral Vein Greater Saphenous Vein * Femoral Vein Popliteal Vein Small Saphenous Vein * Proximal Calf Veins (* superficial vessels) Severely limited exam due to patient body habitus, suboptimal visualization of veins Right Leg: Negative for acute DVT Left Leg: Negative for acute DVT Grayscale, color doppler, spectral doppler imaging performed of the deep veins of the lower extremiti es. There is normal flow, compressibility, vascular waveforms. IMPRESSION: Limited exam, no evident deep venous thrombosis at or above the knees, follow up as in dicated.
[2018-06-12] MEDS ORDERED: HEPARIN SODIUM,PORCINE 5,000 UNIT/ML 1 ML VIAL IV PRN (21:06)
[2018-06-12] MEDS ORDERED: HEPARIN SODIUM,PORCINE 10,000 UNIT/ML 1 ML VIAL IV ONE (21:06)
[2018-06-12] MEDS ORDERED: HEPARIN SOD,PORK IN 0.45% NACL 25,000 UNIT in 0.45% NACL 1 500ML.BAG IV SCH (21:15)
[2018-06-12] MEDS ORDERED: fentaNYL (PF) 50 MCG/ML 2 ML AMP IVP STA (21:27)
--- NOTE | 2018-06-12 21:31 | ED ---
General Adult HPI - General Chief complaint: Shortness of Breath Stated complaint: CAROLYN Time Seen by Provider: 06/12/18 19:32 Source: patient, EMS Mode of arrival: EMS Limitations: no limitations - History of Present Illness Initial comments: Donavon Saha is a morbidly obese 57-year-old male with past medical history of COPD as well as provoked DVT after a hip surgery multiple years ago patient presents the emergency department today for evaluation of fatigue and shortness of breath. She reports that he was in his usual state of health throughout the week, and yesterday he was feeling slightly more fatigued. This morning he states he had some chills and then decided to take a nap. He reports that after waking from a nap he is feeling slightly better, he decided to make himself some food but when he walked occasion he became very lightheaded and short of breath. He states he then decided that down for a short period of time. He states that after his food was seated up he walked back to the kitchen to get it bony step back down to eat he again felt very lightheaded and At that time he decided to call 911. Patient reports that he is feeling unwell and this is similar to previous episodes of pneumonia, the last of which was a year ago. - Related Data Home Medications Medication Instructions Recorded Confirmed Aspirin 81 mg PO DAILY 09/13/14 06/12/18 Furosemide [Lasix] 40 mg PO DAILY 09/13/14 06/12/18 Potassium Chloride [Klor-Con 20] 20 meq PO TID 09/13/14 06/12/18 buPROPion HCL [Wellbutrin] 150 mg PO QAM 09/13/14 06/12/18 Ergocalciferol [Vitamin D2 50,000 unit PO WESA 09/03/15 06/12/18 (DRISDOL)] OLANZapine [ZyPREXA] 20 mg PO HS 09/03/15 06/12/18 Omeprazole [PriLOSEC] 20 mg PO AC-BRKFST 09/03/15 06/12/18 Vitamin E 1,000 unit PO HS 09/03/15 06/12/18 lamoTRIgine 150 mg PO BID 09/03/15 06/12/18 Budesonide-Formot 160-4.5 Mcg 2 puff INHALATION RT-BID PRN 01/31/16 06/12/18 [Symbicort 160-4.5 Mcg Inhaler] Atorvastatin [Lipitor] 10 mg PO DAILY 06/09/16 06/12/18 Metolazone [Zaroxolyn] 2.5 mg PO DAILY 06/17/16 06/12/18 Morphine Sulfate [Morphine Sulfate 60 mg PO W/SUPPER 06/17/16 06/12/18 ER] Morphine Sulfate [Morphine Sulfate 120 mg PO QAM 06/17/16 06/12/18 ER] Vitamin B 6,000 mg PO DAILY 06/17/16 06/12/18 Vit C/E/Zn/Coppr/Lutein/Zeaxan 1 cap PO BID 08/21/16 06/12/18 [Preservision Areds 2 Softgel] Cilostazol [Pletal] 100 mg PO BID 06/12/18 06/12/18 busPIRone HCL 10 mg PO BID 06/12/18 06/12/18 Previous Rx's Medication Instructions Recorded Spironolactone [Aldactone] 25 mg PO BID #60 tab 10/12/16 Allergies Allergy/AdvReac Type Severity Reaction Status Date / Time codeine Allergy Severe Anaphylaxis Verified 06/12/18 19:18 piperacillin sodium Allergy Unknown Verified 06/12/18 19:18 [From Zosyn] tazobactam sodium Allergy Unknown Verified 06/12/18 19:18 [From Zosyn] Review of Systems ROS Statement: Those systems with pertinent positive or pertinent negative responses have been documented in the HPI. ROS Other: All systems not noted in ROS Statement are negative. Past Medical History Past Medical History: Asthma, Cancer, COPD, Deep Vein Thrombosis (DVT), GERD/ Reflux, GI Bleed, Hyperlipidemia, Musculoskeletal Disorder, Osteoarthritis (OA) , Pulmonary Embolus (PE), Skin Disorder, Sleep Apnea/CPAP/BIPAP Additional Past Medical History / Comment(s): HYPOGLYCEMIA. NO C-PAP. DDD, SCOLIOSIS OF SPINE, SLEEPS IN RECLINER, PAIN UNCONTROLLED. HAVING MUSCLE FATIGUE. HX OF SKIN CANCER FACE, BACK. Hiatal Hernia. Irregular HR in the past. DVT IN LEG, WENT TO LUNG - AFTER HIP SURG. BLOOD FROM RECTUM RECENTLY. History of Any Multi-Drug Resistant Organisms: MRSA Date of last positivie culture/infection: AUG 2014 MDRO Source:: NASAL Past Surgical History: Appendectomy, Bariatric Surgery, Heart Catheterization, Hernia Repair, Joint Replacement, Orthopedic Surgery Additional Past Surgical History / Comment(s): RT ELBOW SURG X2, TOTAL RT HIP, LT KNEE X2, RT ANKLE RECONSTRUCTIVE SURG, JANUARY 2014 GASTRIC SLEEVE, COLONOSCOPY'S. Basal Cell CA Face, Back. LT ING HERNIA 05/2016. Past Anesthesia/Blood Transfusion Reactions: Previous Problems w/ Anesthesia Additional Past Anesthesia/Blood Transfusion Reaction / Comment(s): STATES HE WAS TOLD HE WAS A DIFFICULT INTUBATION WITH GASTRIC SLEEVE SURGERY, Difficulty Breathing UPON Waking Up. Past Psychological History: Anxiety, Depression, Panic Disorder, Schizoaffective Disorder Smoking Status: Former smoker Past Alcohol Use History: None Reported Past Drug Use History: None Reported - Past Family History Father Family Medical History: Cancer Additional Family Medical History / Comment(s): LUNG CA General Exam Limitations: no limitations Course Vital Signs 06/12/18 06/12/18 06/12/18 19:16 19:37 21:35 Temperature 99.9 F H Pulse Rate 87 75 Respiratory 18 18 18 Rate Blood Pressure 136/64 107/69 O2 Sat by Pulse 95 95 Oximetry 06/12/18 22:42 Temperature Pulse Rate 77 Respiratory 18 Rate Blood Pressure 117/67 O2 Sat by Pulse 99 Oximetry Medical Decision Making - Medical Decision Making The patient was seen and evaluated, history was obtained from the patient and EMS Patient with a history of COPD as well as DVTs in the past currently not on any anticoagulation presenting with worsening shortness of breath and lightheadedness. Patient also noticed worsening bilateral lower extremity edema. Patient has no cardiac history or history of congestive heart failure Did have oxygen saturation in the low 90s on 2 L oxygen at home. Cardiac workup as well as workup for pulmonary embolism was ordered D-dimer was elevated him a CT angiogram of the chest was ordered to evaluate for pulmonary embolism, and initially patient declined this stating that he believed he would not in the machine and also stating that he cannot lie flat due to his chronic back pain. Empiric heparin was ordered with the plan for admission for presumed pulmonary embolism. Patient was ordered IV fentanyl and was agreeable to attempt to CT angiography. Solu-Medrol and breathing treatments were also ordered for COPD exacerbation. Patient care was discussed with Dr. Wilson who agrees with plan for admission for patient with COPD, DVT history, morbid obesity, and worsening shortness of breath. The time of admission CT angiography was pending, patient was on heparin, Solu-Medrol and breathing treatments were ordered. CT reveals right upper and right lower lobe infiltrate. No evidence of a PE. Heparin was discontinued and treatment for community-acquired pneumonia was ordered. Patient was updated on plan. Admission orders were placed - Lab Data Result diagrams: 06/12/18 19:29 06/12/18 19:29 Lab Results 06/12/18 06/12/18 06/12/18 Range/Units 19:29 19:29 19:29 WBC 14.4 H (3.8-10.6) k/uL RBC 4.85 (4.30-5.90) m/uL Hgb 13.9 (13.0-17.5) gm/dL Hct 41.4 (39.0-53.0) % MCV 85.2 (80.0-100.0) fL MCH 28.7 (25.0-35.0) pg MCHC 33.6 (31.0-37.0) g/dL RDW 13.4 (11.5-15.5) % Plt Count 309 (150-450) k/uL Neutrophils % 85 % Lymphocytes % 9 % Monocytes % 5 % Eosinophils % 0 % Basophils % 0 % Neutrophils # 12.2 H (1.3-7.7) k/uL Lymphocytes # 1.3 (1.0-4.8) k/uL Monocytes # 0.7 (0-1.0) k/uL Eosinophils # 0.1 (0-0.7) k/uL Basophils # 0.1 (0-0.2) k/uL PT (9.0-12.0) sec INR (<1.2) APTT (22.0-30.0) sec D-Dimer (<0.60) mg/L FEU Sodium 133 L (137-145) mmol/L Potassium 3.7 (3.5-5.1) mmol/L Chloride 90 L (98-107) mmol/L Carbon Dioxide 34 H (22-30) mmol/L Anion Gap 9 mmol/L BUN 27 H (9-20) mg/dL Creatinine 1.10 (0.66-1.25) mg/dL Est GFR (CKD-EPI)AfAm 86 (>60 ml/min/1.73 sqM) Est GFR (CKD-EPI)NonAf 75 (>60 ml/min/1.73 sqM) Glucose 119 H (74-99) mg/dL Calcium 9.6 (8.4-10.2) mg/dL Total Bilirubin 0.8 (0.2-1.3) mg/dL AST 22 (17-59) U/L ALT 31 (21-72) U/L Alkaline Phosphatase 85 (38-126) U/L Total Creatine Kinase 54 L (55-170) U/L CK-MB (CK-2) 0.7 (0.0-2.4) ng/mL CK-MB (CK-2) Rel Index 1.3 Troponin I <0.012 (0.000-0.034) ng/mL Total Protein 6.5 (6.3-8.2) g/dL Albumin 4.0 (3.5-5.0) g/dL 06/12/18 Range/Units 19:29 WBC (3.8-10.6) k/uL RBC (4.30-5.90) m/uL Hgb (13.0-17.5) gm/dL Hct (39.0-53.0) % MCV (80.0-100.0) fL MCH (25.0-35.0) pg MCHC (31.0-37.0) g/dL RDW (11.5-15.5) % Plt Count (150-450) k/uL Neutrophils % % Lymphocytes % % Monocytes % % Eosinophils % % Basophils % % Neutrophils # (1.3-7.7) k/uL Lymphocytes # (1.0-4.8) k/uL Monocytes # (0-1.0) k/uL Eosinophils # (0-0.7) k/uL Basophils # (0-0.2) k/uL PT 9.9 (9.0-12.0) sec INR 1.0 (<1.2) APTT 24.3 (22.0-30.0) sec D-Dimer 0.74 H (<0.60) mg/L FEU Sodium (137-145) mmol/L Potassium (3.5-5.1) mmol/L Chloride (98-107) mmol/L Carbon Dioxide (22-30) mmol/L Anion Gap mmol/L BUN (9-20) mg/dL Creatinine (0.66-1.25) mg/dL Est GFR (CKD-EPI)AfAm (>60 ml/min/1.73 sqM) Est GFR (CKD-EPI)NonAf (>60 ml/min/1.73 sqM) Glucose (74-99) mg/dL Calcium (8.4-10.2) mg/dL Total Bilirubin (0.2-1.3) mg/dL AST (17-59) U/L ALT (21-72) U/L Alkaline Phosphatase (38-126) U/L Total Creatine Kinase (55-170) U/L CK-MB (CK-2) (0.0-2.4) ng/mL CK-MB (CK-2) Rel Index Troponin I (0.000-0.034) ng/mL Total Protein (6.3-8.2) g/dL Albumin (3.5-5.0) g/dL Disposition Clinical Impression: Acute exacerbation of chronic obstructive airways disease, Community acquired pneumonia Disposition: ADMITTED IP TO THIS [facility] Referrals: Yokasta Hinds DO [Primary Care Provider] - 1-2 days Decision Time: 21:50
[2018-06-12] MEDS ORDERED: methylPREDNISolone SOD SUCCI 125 MG/2 ML VIAL IV STA (21:50)
--- NOTE | 2018-06-12 23:09 | CT ---
EXAM: CT Chest With Intravenous Contrast CLINICAL HISTORY: Pain TECHNIQUE: Axial computed tomography images of the chest with intravenous contrast during the arterial phase of enhancement. CTDI is 88.5 mGy and DLP is 790 mGy-cm. This CT exam was performed using one or more of the following dose reduction techniques: automated exposure control, adjustment of the mA and/or kV according to patient size, and/or use of iterative reconstruction technique. Coronal and sagittal reformatted images were created and reviewed. COMPARISON: No relevant prior studies available. FINDINGS: Pulmonary arteries: Unremarkable. No pulmonary embolism. Aorta: No acute findings. No thoracic aortic aneurysm. Lungs: Right lower lobe infiltrate early infiltrate in the right upper lobe suggestive of a infectious pneumonic process Pleural space: Unremarkable. No significant effusion. No pneumothorax. Heart: Unremarkable. No cardiomegaly. No significant pericardial effusion. No evidence of RV dysfunction. Bones/joints: No acute fracture. No dislocation. Soft tissues: Postoperative changes suggestive gastric bypass surgery Lymph nodes: Unremarkable. No enlarged lymph nodes. IMPRESSION: No pulmonary embolism. Right lower lobe and early right upper lobe infiltrate
[2018-06-12] MEDS ORDERED: cefTRIAXone IN SWFI 1,000 MG/10 ML SYRINGE IVP STA (23:19)
[2018-06-12] MEDS ORDERED: AZITHROMYCIN 500 MG in DEXTROSE 5% IN WATER 250 ML IVPB STA ×2 (23:19)
[2018-06-12] MEDS ORDERED: POTASSIUM CHLORIDE ER 20 MEQ TAB.ER PO STA (23:20)
[2018-06-12] MEDS ORDERED: lamoTRIgine 100 MG TAB PO STA (23:20)
[2018-06-12] MEDS ORDERED: CILOSTAZOL 100 MG TAB PO STA (23:20)
[2018-06-12] MEDS ORDERED: GABAPENTIN 300 MG CAP PO STA (23:23)
[2018-06-13] MEDS ORDERED: OLANZapine 10 MG TAB PO ONE
[2018-06-13 01:52] VITALS: BMI 53.3
[2018-06-13] MEDS ORDERED: MORPHINE SULFATE ER 60 MG TABLET PO STA (05:29)
[2018-06-13] MEDS ORDERED: MORPHINE SULFATE ER 60 MG TABLET PO SCH ×2 (09:00→17:00)
[2018-06-13 10:44] LABS: Basophils % (A) 0 %; Eosinophils % (A) 0 %; HCT 39.9 % (39.0-53.0); HGB 13.1 gm/dL (13.0-17.5); Lymphocytes # (A) 0.4 k/uL (1.0-4.8); Lymphocytes % (A) 5 %; MCHC 32.7 g/dL (31.0-37.0); MCV 85.7 fL (80.0-100.0); Mean Platelet Volume 6.5; Monocytes # (A) 0.3 k/uL (0-1.0); Monocytes % (A) 3 %; Neutrophils # (A) 8.8 k/uL (1.3-7.7); Neutrophils % (A) 93 %; Platelet Count 290 k/uL (150-450); RBC 4.66 m/uL (4.30-5.90); RDW 13.2 % (11.5-15.5); WBC 9.5 k/uL (3.8-10.6)
--- NOTE | 2018-06-13 10:59 | P.HPIM ---
History of Present Illness H&P Date: 06/13/18 Chief Complaint: Increased Shortness of Breath This is a 57-year-old patient of Dr. Hinds. Patient presented to the emergency department with complaints of increasing shortness of breath throughout the week and feeling more fatigued. Patient stated that he was making his dinner when he became very lightheaded and had to sit down. Patient does state that he wears oxygen intermittently at home but has required it more over the past few days. Patient has a significant history for asthma, COPD, DVT , GERD, GI bleed- rt to polyps in the past, skin CA, hyperlipidemia, OA, PE, chronic pain and hiatal hernia. D-dimer on admission 0.74. CTA was completed and showed no pulmonary embolism, right lower lobe and early right upper lobe infiltrate. Chest x-ray completed. Findings may represent basilar atelectasis or scarring similar to prior exam. Patient also presented with significant lower extremity edema. Ultrasound of the lower extremities were ordered. Limited exam due to body habitus but did show no evidence of DVT at or above the knees. EKG showing normal sinus rhythm, nonspecific intraventricular block. Patient received Zithromax and Rocephin, along with solumedrol in the emergency room. Patient also started on DuoNeb breathing treatments. Dr. Snowden per pulmonary services have been consulted. Blood cell 14.4 and admission, blood culture has been ordered. This time patient is on nasal cannula 2 L. Denies chest pain. Does state shortness of breath has improved from admission. Patient denies nausea vomiting or diarrhea. Patient denies burning or frequency with urination. Review of Systems Please refer to HPI otherwise unremarkable Past Medical History Past Medical History: Asthma, Cancer, COPD, Deep Vein Thrombosis (DVT), GERD/ Reflux, GI Bleed, Hyperlipidemia, Musculoskeletal Disorder, Osteoarthritis (OA) , Pulmonary Embolus (PE), Skin Disorder, Sleep Apnea/CPAP/BIPAP Additional Past Medical History / Comment(s): HYPOGLYCEMIA. NO C-PAP. DDD, SCOLIOSIS OF SPINE, SLEEPS IN RECLINER, PAIN UNCONTROLLED. HAVING MUSCLE FATIGUE. HX OF SKIN CANCER FACE, BACK. Hiatal Hernia. Irregular HR in the past. DVT IN LEG, WENT TO LUNG - AFTER HIP SURG. BLOOD FROM RECTUM RECENTLY. History of Any Multi-Drug Resistant Organisms: MRSA Date of last positivie culture/infection: AUG 2014 MDRO Source:: NASAL Past Surgical History: Appendectomy, Bariatric Surgery, Heart Catheterization, Hernia Repair, Joint Replacement, Orthopedic Surgery Additional Past Surgical History / Comment(s): RT ELBOW SURG X2, TOTAL RT HIP, LT KNEE X2, RT ANKLE RECONSTRUCTIVE SURG, JANUARY 2014 GASTRIC SLEEVE, COLONOSCOPY'S. Basal Cell CA Face, Back. LT ING HERNIA 05/2016. Past Anesthesia/Blood Transfusion Reactions: Previous Problems w/ Anesthesia Additional Past Anesthesia/Blood Transfusion Reaction / Comment(s): STATES HE WAS TOLD HE WAS A DIFFICULT INTUBATION WITH GASTRIC SLEEVE SURGERY, Difficulty Breathing UPON Waking Up. Past Psychological History: Anxiety, Depression, Panic Disorder, Schizoaffective Disorder Additional Psychological History / Comment(s): STATES PARANOID AT TIMES, claustrophobic, states very nervous about having general anesthesia. Smoking Status: Former smoker Past Alcohol Use History: None Reported Additional Past Alcohol Use History / Comment(s): QUIT SMOKING 1998, smoked 4 cigerettes/day, statrted as a teenager. FORMER ETOH ABUSE. Pt states he is 5 years sober. Past Drug Use History: None Reported Additional Drug Use History / Comment(s): PAST HX OF MARIJUANA USE, DENIES USE IN YEARS. - Past Family History Father Family Medical History: Cancer Additional Family Medical History / Comment(s): LUNG CA Medications and Allergies Home Medications Medication Instructions Recorded Confirmed Type Aspirin 81 mg PO DAILY 09/13/14 06/13/18 History Furosemide [Lasix] 40 mg PO DAILY 09/13/14 06/13/18 History Potassium Chloride [Klor-Con 20] 20 meq PO TID 09/13/14 06/13/18 History Ergocalciferol [Vitamin D2 50,000 unit PO WESA 09/03/15 06/13/18 History (DRISDOL)] OLANZapine [ZyPREXA] 20 mg PO HS 09/03/15 06/13/18 History Omeprazole [PriLOSEC] 20 mg PO AC-BRKFST 09/03/15 06/13/18 History Vitamin E 1,000 unit PO HS 09/03/15 06/13/18 History lamoTRIgine 150 mg PO BID 09/03/15 06/13/18 History Atorvastatin [Lipitor] 10 mg PO DAILY 06/09/16 06/13/18 History Metolazone [Zaroxolyn] 2.5 mg PO DAILY 06/17/16 06/13/18 History Morphine Sulfate [Morphine Sulfate 60 mg PO W/SUPPER 06/17/16 06/13/18 History ER] Morphine Sulfate [Morphine Sulfate 120 mg PO QAM 06/17/16 06/13/18 History ER] Spironolactone [Aldactone] 25 mg PO BID #60 tab 10/12/16 06/13/18 Rx Cilostazol [Pletal] 100 mg PO BID 06/12/18 06/13/18 History busPIRone HCL 10 mg PO BID 06/12/18 06/13/18 History Ascorbic Acid [Vitamin C] 1,000 mg PO BID 06/13/18 06/13/18 History Febuxostat [Uloric] 80 mg PO DAILY 06/13/18 06/13/18 History Gabapentin 600 mg PO TID 06/13/18 06/13/18 History buPROPion XL [Wellbutrin Xl] 150 mg PO DAILY 06/13/18 06/13/18 History Allergies Allergy/AdvReac Type Severity Reaction Status Date / Time codeine Allergy Severe Anaphylaxis Verified 06/13/18 09:36 piperacillin sodium Allergy Unknown Verified 06/13/18 09:36 [From Zosyn] tazobactam sodium Allergy Unknown Verified 06/13/18 09:36 [From Zosyn] Physical Exam Vitals: Vital Signs Temp Pulse Pulse Resp BP BP Pulse Ox 06/13/18 08:06 98.2 F 71 18 120/72 97 06/13/18 01:15 97.4 F L 79 14 132/63 99 06/13/18 00:25 97.5 F L 06/12/18 23:51 66 18 103/62 98 06/12/18 22:42 77 18 117/67 99 06/12/18 21:35 75 18 107/69 95 06/12/18 19:37 18 06/12/18 19:16 99.9 F H 87 18 136/64 95 Intake and Output 06/12/18 06/13/18 06/13/18 22:59 06:59 14:59 Output Total 950 Balance -950 Output: Urine 950 Other: Voiding Method Toilet Weight 204.117 kg 204.1 kg Head normocephalic Neck supple Lungs clear to auscultation bilaterally no wheezing or crackles Heart regular rate and rhythm S1-S2, no rub or gallop Abdomen is soft obese, nontender nondistended positive bowel sounds no hepatosplenomegaly Extremities +2 non pitting edema to lower extremities bilateral Neuro alert and orientated to 3 Results CBC & Chem 7: 06/12/18 19:29 06/12/18 19:29 Labs: Abnormal Lab Results - Last 24 Hours (Table) 06/12/18 06/12/18 06/12/18 Range/Units 19:29 19:29 19:29 WBC 14.4 H (3.8-10.6) k/uL Neutrophils # 12.2 H (1.3-7.7) k/uL D-Dimer (<0.60) mg/L FEU Sodium 133 L (137-145) mmol/L Chloride 90 L (98-107) mmol/L Carbon Dioxide 34 H (22-30) mmol/L BUN 27 H (9-20) mg/dL Glucose 119 H (74-99) mg/dL Total Creatine Kinase 54 L (55-170) U/L 06/12/18 Range/Units 19:29 WBC (3.8-10.6) k/uL Neutrophils # (1.3-7.7) k/uL D-Dimer 0.74 H (<0.60) mg/L FEU Sodium (137-145) mmol/L Chloride (98-107) mmol/L Carbon Dioxide (22-30) mmol/L BUN (9-20) mg/dL Glucose (74-99) mg/dL Total Creatine Kinase (55-170) U/L Thrombosis Risk Factor Assmnt - Choose All That Apply Each Factor Represents 1 point: Abnormal pulmonary function (COPD), Age 41-60 years, Obesity (BMI >25) Each Risk Factor Represents 3 Points: History of DVT/PE Thrombosis Risk Factor Assessment Total Risk Factor Score: 6 Thrombosis Risk Factor Assessment Level: High Risk Assessment and Plan Assessment: 1. Acute exacerbation of chronic obstructive airway disease and possible community-acquired pneumonia. Patient does require home O2. Chest x-ray completed showing findings that may represent basilar atelectasis or scarring similar to prior exam. Patient received Rocephin and Zithromax in the emergency room. Along with Solu-Medrol 1 time dose. CTA of the chest completed showing no pulmonary embolism. EKG completed showing normal sinus rhythm, nonspecific intraventricular block. Dr. Snowden per pulmonary services has been consulted. Patient currently on DuoNeb treatments. 2. Bilateral lower extremity edema. Venous Doppler completed of lower extremities, limited exam due to body habitus did show no evident deep vein thrombosis at or above the knees. Patient's home medication of Aldactone, Lasix and metolazone restarted. 3. History of asthma 4. History of deep vein thrombosis and pulmonary embolism. 5. History of schizoaffective disorder and panic disorder. Home medications of Buspar, Wellbutrin and Zyprexa. Patient also states he takes Lamictal for his panic disorder. 6. History of hyperlipidemia. Continue home Lipitor. 7. History of alcoholism. Patient states he is 5 years sober 8. Chronic pain of lower back. Patient's home medication of MS Contin 30 mg and 120mg ordered. 9. History of gout. Continue home Allopurinol DVT prophylaxis Lovenox, GI prophylaxis Protonix. Time with Patient: Greater than 30 (Greater than 60% of the total time spent in counseling and coordination of care. I performed an examination of the patient and discussed their management with the Nurse Practitioner. I have reviewed the Nurse Practitioner's notes and agree with the documented findings and plan of care)
[2018-06-13 11:04] LABS: ALT 28 U/L (21-72); AST 17 U/L (17-59); Albumin 3.7 g/dL (3.5-5.0); Alkaline Phosphatase 89 U/L (38-126); Anion Gap 10 mmol/L; Blood Urea Nitrogen 26 mg/dL (9-20); Calcium 9.5 mg/dL (8.4-10.2); Carbon Dioxide 31 mmol/L (22-30); Chloride 90 mmol/L (98-107); Glucose 208 mg/dL (74-99); Potassium 3.8 mmol/L (3.5-5.1); Sodium 131 mmol/L (137-145); Total Bilirubin 0.6 mg/dL (0.2-1.3); Total Protein 6.2 g/dL (6.3-8.2)
[2018-06-13] MEDS: IPRATROPIUM-ALBUTEROL 3 ML NEB INHALATION PRN (12:40)
--- NOTE | 2018-06-13 13:58 | P.CNPUL ---
History of Present Illness Consult date: 06/13/18 Requesting physician: Fernanda Wilson Reason for consult: pneumonia Chief complaint: Shortness of breath and profound weakness History of present illness: This is a 57-year-old white male with history of COPD, morbid obesity, had previous hip surgery in 2010, and since then the patient has been disabled. Patient has been using a walker and he is generally weak, he has history of severe chronic pain syndrome on very high doses of morphine for his pain control. Patient presented to the ER with a few days' history of increased shortness of breath, extreme fatigue, weakness, occasional chills, and as he was trying to walk a few steps at home to prepare some food, he became extremely lightheaded and short of breath. Denies any cough, and he denies any chest pain. Patient called EMS, and he was brought into the ER. Chest x-ray showed minimal atelectasis at the right lower lobe, it is no different from an old chest x-ray done in 2017. CT of the chest questioned the possibility of right lower lobe pneumonia although the findings could be postinflammatory in nature. Patient was admitted and this consult was initiated. Again the patient has no clear-cut symptoms to suggest active pneumonia, but his CT of the chest is warm and some for possible right lower lobe pneumonia. Patient denies any headache, no blurred vision, he does have lightheadedness shortness of breath with any activity, CT angiogram ruled out pulmonary embolism. Patient describes profound weakness which has been progressively getting worse since 2010. Patient is on disability since then. 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 After his hip surgery patient became disabled and required significant amount of pain medicine to control his pain. He lives by himself, does not drink any alcohol and he does not smoke anymore. Used to be a smoker until 20 years ago. Review of Systems 14 point review of systems were obtained, please refer to pertinent positives and negatives as per HPI, otherwise remaining systems are negative. Most of his symptoms are mostly symptoms of weakness fatigue malaise and shortness of breath with any activity as well as lightheadedness. Again he denies any palpitations, denies any chest pain, no nausea no vomiting, no abdominal pain except occasional left lower quadrant pain and discomfort in the left lower quadrant. No diarrhea, no melena, no hematemesis, no dysuria, no frequency, no urgency. Past Medical History Past Medical History: Asthma, Cancer, COPD, Deep Vein Thrombosis (DVT), GERD/ Reflux, GI Bleed, Hyperlipidemia, Musculoskeletal Disorder, Osteoarthritis (OA) , Pulmonary Embolus (PE), Skin Disorder, Sleep Apnea/CPAP/BIPAP Additional Past Medical History / Comment(s): HYPOGLYCEMIA. NO C-PAP. DDD, SCOLIOSIS OF SPINE, SLEEPS IN RECLINER, PAIN UNCONTROLLED. HAVING MUSCLE FATIGUE. HX OF SKIN CANCER FACE, BACK. Hiatal Hernia. Irregular HR in the past. DVT IN LEG, WENT TO LUNG - AFTER HIP SURG. BLOOD FROM RECTUM RECENTLY. History of Any Multi-Drug Resistant Organisms: MRSA Date of last positivie culture/infection: AUG 2014 MDRO Source:: NASAL Past Surgical History: Appendectomy, Bariatric Surgery, Heart Catheterization, Hernia Repair, Joint Replacement, Orthopedic Surgery Additional Past Surgical History / Comment(s): RT ELBOW SURG X2, TOTAL RT HIP, LT KNEE X2, RT ANKLE RECONSTRUCTIVE SURG, JANUARY 2014 GASTRIC SLEEVE, COLONOSCOPY'S. Basal Cell CA Face, Back. LT ING HERNIA 05/2016. Past Anesthesia/Blood Transfusion Reactions: Previous Problems w/ Anesthesia Additional Past Anesthesia/Blood Transfusion Reaction / Comment(s): STATES HE WAS TOLD HE WAS A DIFFICULT INTUBATION WITH GASTRIC SLEEVE SURGERY, Difficulty Breathing UPON Waking Up. Past Psychological History: Anxiety, Depression, Panic Disorder, Schizoaffective Disorder Additional Psychological History / Comment(s): STATES PARANOID AT TIMES, claustrophobic, states very nervous about having general anesthesia. Smoking Status: Former smoker Past Alcohol Use History: None Reported Additional Past Alcohol Use History / Comment(s): QUIT SMOKING 1998, smoked 4 cigerettes/day, statrted as a teenager. FORMER ETOH ABUSE. Pt states he is 5 years sober. Past Drug Use History: None Reported Additional Drug Use History / Comment(s): PAST HX OF MARIJUANA USE, DENIES USE IN YEARS. - Past Family History Father Family Medical History: Cancer Additional Family Medical History / Comment(s): LUNG CA Medications and Allergies Home Medications Medication Instructions Recorded Confirmed Type Aspirin 81 mg PO DAILY 09/13/14 06/13/18 History Furosemide [Lasix] 40 mg PO DAILY 09/13/14 06/13/18 History Potassium Chloride [Klor-Con 20] 20 meq PO TID 09/13/14 06/13/18 History Ergocalciferol [Vitamin D2 50,000 unit PO WESA 09/03/15 06/13/18 History (DRISDOL)] OLANZapine [ZyPREXA] 20 mg PO HS 09/03/15 06/13/18 History Omeprazole [PriLOSEC] 20 mg PO AC-BRKFST 09/03/15 06/13/18 History Vitamin E 1,000 unit PO HS 09/03/15 06/13/18 History lamoTRIgine 150 mg PO BID 09/03/15 06/13/18 History Atorvastatin [Lipitor] 10 mg PO DAILY 06/09/16 06/13/18 History Metolazone [Zaroxolyn] 2.5 mg PO DAILY 06/17/16 06/13/18 History Morphine Sulfate [Morphine Sulfate 60 mg PO W/SUPPER 06/17/16 06/13/18 History ER] Morphine Sulfate [Morphine Sulfate 120 mg PO QAM 06/17/16 06/13/18 History ER] Spironolactone [Aldactone] 25 mg PO BID #60 tab 10/12/16 06/13/18 Rx Cilostazol [Pletal] 100 mg PO BID 06/12/18 06/13/18 History busPIRone HCL 10 mg PO BID 06/12/18 06/13/18 History Ascorbic Acid [Vitamin C] 1,000 mg PO BID 06/13/18 06/13/18 History Febuxostat [Uloric] 80 mg PO DAILY 06/13/18 06/13/18 History Gabapentin 600 mg PO TID 06/13/18 06/13/18 History buPROPion XL [Wellbutrin Xl] 150 mg PO DAILY 06/13/18 06/13/18 History Allergies Allergy/AdvReac Type Severity Reaction Status Date / Time codeine Allergy Severe Anaphylaxis Verified 06/13/18 09:36 piperacillin sodium Allergy Unknown Verified 06/13/18 09:36 [From Zosyn] tazobactam sodium Allergy Unknown Verified 06/13/18 09:36 [From Zosyn] Physical Exam Vitals: Vital Signs Temp Pulse Pulse Resp BP BP Pulse Ox 06/13/18 12:51 72 06/13/18 12:40 72 06/13/18 08:15 16 07/16/18 08:06 98.2 F 71 18 120/72 97 06/13/18 01:15 97.4 F L 79 14 132/63 99 06/13/18 00:25 97.5 F L 06/12/18 23:51 66 18 103/62 98 06/12/18 22:42 77 18 117/67 99 06/12/18 21:35 75 18 107/69 95 06/12/18 19:37 18 06/12/18 19:16 99.9 F H 87 18 136/64 95 Intake and Output 06/12/18 06/13/18 06/13/18 22:59 06:59 14:59 Output Total 950 Balance -950 Output: Urine 950 Other: Voiding Method Toilet Weight 204.117 kg 204.1 kg Physical Exam: Revealed a 57-year-old white male, obese, in no distress, sitting in bed. Head: Atraumatic, normocephalic. HEENT:[Neck is supple.] [No neck masses.] [No thyromegaly.] [No JVD.] Chest: Diminished breath sounds at the bases, no crackles, minimal wheezing on forced expiratory maneuver only. Cardiac Exam: [Normal S1 and S2, no S3 gallop, no murmur.] Abdomen: [Obese, Soft, nontender, no megaly, no rebound, no guarding, normal bowel sounds.] Extremities: [No clubbing, 2+ bipedal edema, no cyanosis.] Neurological Exam: [No focal neurologic deficit.] Psychiatric: Normal mood affect and mental status examination. Lymphatics: No lymphadenopathy. Skin: No rashes. Results - Laboratory Findings CBC and BMP: 06/13/18 10:24 06/13/18 10:24 PT/INR, D-dimer PT 9.9 sec (9.0-12.0) 06/12/18 19:29 INR 1.0 (<1.2) 06/12/18 19:29 D-Dimer 0.74 mg/L FEU (<0.60) H 06/12/18 19:29 Abnormal lab findings: Abnormal Labs 06/12/18 06/12/18 06/12/18 19:29 19:29 19:29 WBC 14.4 H Neutrophils # 12.2 H Lymphocytes # D-Dimer Sodium 133 L Chloride 90 L Carbon Dioxide 34 H BUN 27 H Glucose 119 H Total Creatine Kinase 54 L Total Protein 06/12/18 06/13/18 06/13/18 19:29 10:24 10:24 WBC Neutrophils # 8.8 H Lymphocytes # 0.4 L D-Dimer 0.74 H Sodium 131 L Chloride 90 L Carbon Dioxide 31 H BUN 26 H Glucose 208 H Total Creatine Kinase Total Protein 6.2 L - Diagnostic Findings Chest x-ray: image reviewed CT scan - chest: image reviewed (As noted in HPI.) Assessment and Plan Assessment: Impression: 1 acute COPD exacerbation 2 acute on chronic hypoxic respiratory failure secondary to COPD 3 possible right lower lobe community-acquired pneumonia although I am more convinced that the findings are postinflammatory in nature, strongly doubt acute pneumonia. But would recommend empiric Rocephin and Zithromax. 4 multiple constitutional symptoms, and chronic weakness and fatigue, this may have to be investigated further, in the meantime I have recommended screening for myasthenia gravis, I have also ordered a sed rate, this may have to be further investigated on outpatient basis. What is concerning is the fact that the patient became disabled and profoundly weak since his last hip surgery in 2010. And has been disabled since. 5 morbid obesity 6 history of deep vein thrombosis. And history of pulmonary embolism. 7 obstructive sleep apnea syndrome, maintained on CPAP/BiPAP. Recommendation: Continue present treatment plan including bronchodilators, empiric antibiotics, consider echocardiogram looking into the possibility of pulmonary hypertension. And looking into the possibility of underlying cardiomyopathy and LV dysfunction. We'll continue to follow. Time with Patient: Greater than 30
[2018-06-13] MEDS: POTASSIUM CHLORIDE ER 20 MEQ TAB.ER PO SCH ×2 (15:00→20:48)
[2018-06-13] MEDS: SPIRONOLACTONE 25 MG TAB PO SCH (15:00)
[2018-06-13] MEDS: GABAPENTIN 300 MG CAP PO SCH ×2 (15:00→20:47)
[2018-06-13] MEDS: busPIRone HCl 10 MG TAB PO SCH (15:19)
--- NOTE | 2018-06-13 15:28 | ECHOF ---
Referral Reason:sob/pulm htn MEASUREMENTS -------- HEIGHT: 190.5 cm WEIGHT: 203.7 kg BP: 120/72 IVSd: 1.9 cm (0.6 - 1.1) LVIDd: 4.1 cm (3.9 - 5.3) LVPWd: 2.3 cm (0.6 - 1.1) IVSs: 1.9 cm LVIDs: 2.0 cm LVPWs: 1.8 cm MV E Angel: 0.64 m/s MV DecT: 197 ms MV A Angel: 0.76 m/s MV E/A Ratio: 0.85 AR PHT: 260 ms RAP: 5.00 mmHg RVSP: 12.60 mmHg FINDINGS -------- Sinus rhythm. This was a technically difficult study with suboptimal views. Morbid Obesity The left ventricular size is normal. Left ventricular wall thickness is normal. Overall left vent ricular systolic function is normal with, an EF between 55 - 60 %. The RV was not well visualized. The left atrium was not well visualized. The right atrium was not well visualized. Lumason used The aortic valve was not well visualized. The mitral valve was not well visualized. The tricuspid valve was not well visualized. The pulmonic valve was not well visualized. CONCLUSIONS -------- 1. Sinus rhythm. 2. This was a technically difficult study with suboptimal views. 3. Morbid Obesity 4. The left ventricular size is normal. 5. Left ventricular wall thickness is normal. 6. Overall left ventricular systolic function is normal with, an EF between 55 - 60 %. 7. The RV was not well visualized. 8. The left atrium was not well visualized. 9. The right atrium was not well visualized. 10. Lumason used 11. The aortic valve was not well visualized. 12. The mitral valve was not well visualized. 13. The tricuspid valve was not well visualized. 14. The pulmonic valve was not well visualized. FRONT OFFICE SUPERVISOR: Gale Tafoya RDCS
[2018-06-13] MEDS: METOLAZONE 2.5 MG TAB PO SCH (16:32)
[2018-06-13] MEDS: FUROSEMIDE 40 MG TAB PO SCH (16:32)
[2018-06-13] MEDS: ASCORBIC ACID 500 MG TAB PO SCH (20:45)
[2018-06-13] MEDS: AZITHROMYCIN 500 MG TAB PO SCH (20:46)
[2018-06-13] MEDS: lamoTRIgine 100 MG TAB PO SCH (20:46)
[2018-06-13] MEDS: cefTRIAXone IN SWFI 1,000 MG/10 ML SYRINGE IVP SCH (20:46)
[2018-06-13] MEDS: CILOSTAZOL 100 MG TAB PO SCH (20:46)
[2018-06-13] MEDS: VITAMIN E (DL,TOCOPHERYL ACET) 400 UNIT CAP PO SCH (20:47)
[2018-06-13] MEDS: OLANZapine 10 MG TAB PO SCH (20:47)
[2018-06-13] MEDS: SYMBICORT 160-4.5 MCG INHALER INHALATION SCH (21:30)
[2018-06-14] MEDS: SYMBICORT 160-4.5 MCG INHALER INHALATION SCH ×2 (07:41→21:01)
[2018-06-14] MEDS ORDERED: MORPHINE SULFATE ER 60 MG TABLET PO SCH (09:00)
[2018-06-14] MEDS: SPIRONOLACTONE 25 MG TAB PO SCH ×2 (09:28→17:32)
[2018-06-14] MEDS: ATORVASTATIN 10 MG TAB PO SCH (09:28)
[2018-06-14] MEDS: CILOSTAZOL 100 MG TAB PO SCH ×2 (09:28→21:22)
[2018-06-14] MEDS: ASCORBIC ACID 500 MG TAB PO SCH ×2 (09:28→21:20)
[2018-06-14] MEDS: lamoTRIgine 100 MG TAB PO SCH ×2 (09:29→21:23)
[2018-06-14] MEDS: METOLAZONE 2.5 MG TAB PO SCH (09:29)
[2018-06-14] MEDS: busPIRone HCl 10 MG TAB PO SCH ×2 (09:29→18:25)
[2018-06-14] MEDS: FUROSEMIDE 40 MG TAB PO SCH (09:29)
[2018-06-14] MEDS: ENOXAPARIN 40 MG/0.4 ML SYRINGE SQ SCH (09:29)
[2018-06-14] MEDS: PANTOPRAZOLE 40 MG TABLET PO SCH (09:29)
[2018-06-14] MEDS: POTASSIUM CHLORIDE ER 20 MEQ TAB.ER PO SCH ×3 (09:29→21:25)
[2018-06-14] MEDS: buPROPion XL 150 MG TAB.ER.24H PO SCH (09:29)
[2018-06-14] MEDS: ASPIRIN 81 MG PO SCH (09:29)
[2018-06-14] MEDS: GABAPENTIN 300 MG CAP PO SCH ×3 (09:29→21:24)
[2018-06-14] MEDS: ALLOPURINOL 100 MG TAB PO SCH (09:29)
[2018-06-14 10:08] LABS: Basophils % (A) 0 %; Eosinophils % (A) 0 %; HCT 43.2 % (39.0-53.0); HGB 13.9 gm/dL (13.0-17.5); Lymphocytes % (A) 15 %; MCH 27.8 pg (25.0-35.0); MCHC 32.3 g/dL (31.0-37.0); MCV 86.3 fL (80.0-100.0); Mean Platelet Volume 6.5; Monocytes # (A) 0.6 k/uL (0-1.0); Monocytes % (A) 4 %; Neutrophils # (A) 10.8 k/uL (1.3-7.7); Neutrophils % (A) 80 %; Platelet Count 346 k/uL (150-450); RDW 13.3 % (11.5-15.5); WBC 13.6 k/uL (3.8-10.6)
--- NOTE | 2018-06-14 10:20 | P.PN ---
Subjective Progress Note Date: 06/14/18 This is a 57-year-old patient of Dr. Hinds. Patient presented to the emergency department with complaints of increasing shortness of breath throughout the week and feeling more fatigued. Patient stated that he was making his dinner when he became very lightheaded and had to sit down. Patient does state that he wears oxygen intermittently at home but has required it more over the past few days. Patient has a significant history for asthma, COPD, DVT , GERD, GI bleed- rt to polyps in the past, skin CA, hyperlipidemia, OA, PE, chronic pain and hiatal hernia. D-dimer on admission 0.74. CTA was completed and showed no pulmonary embolism, right lower lobe and early right upper lobe infiltrate. Chest x-ray completed. Findings may represent basilar atelectasis or scarring similar to prior exam. Patient also presented with significant lower extremity edema. Ultrasound of the lower extremities were ordered. Limited exam due to body habitus but did show no evidence of DVT at or above the knees. EKG showing normal sinus rhythm, nonspecific intraventricular block. Patient received Zithromax and Rocephin, along with solumedrol in the emergency room. Patient also started on DuoNeb breathing treatments. Dr. Snowden per pulmonary services have been consulted. Blood cell 14.4 and admission, blood culture has been ordered. This time patient is on nasal cannula 2 L. Denies chest pain. Does state shortness of breath has improved from admission. Patient denies nausea vomiting or diarrhea. Patient denies burning or frequency with urination. On 06/14/2018. Patient currently resting in bed. Does complain that he is more anxious due to the timing of his BuSpar and MS Contin being different from home. Discussed with nurse and pharmacist and will time accordingly to when patient takes the medications at home. Patient denies chest pain or shortness of breath at this time. 2-D echo had been ordered by pulmonary care services. EF between 55 and 60%. Objective - Vital Signs Vital signs: Vital Signs Temp 97.9 F 06/14/18 07:29 Pulse 72 06/13/18 23:00 Resp 16 06/14/18 07:29 BP 132/72 06/14/18 07:29 Pulse Ox 98 06/13/18 23:00 Intake & Output 06/13/18 06/14/18 06/14/18 18:59 06:59 18:59 Output Total 550 1550 Balance -550 -1550 Output: Urine 550 1550 Other: Voiding Method Bedside Commode # Voids 1 - Exam Head normocephalic Neck supple Lungs clear to auscultation bilaterally no wheezing or crackles Heart regular rate and rhythm S1-S2, no rub or gallop Abdomen is soft obese positive bowel sounds no hepatosplenomegaly Extremities no edema, +2 CHAYO lower extremity edema Neuro alert and orientated to 3 - Labs CBC & Chem 7: 06/13/18 10:24 06/13/18 10:24 Labs: Abnormal Lab Results - Last 24 Hours (Table) 06/13/18 06/13/18 06/13/18 Range/Units 10:24 10:24 10:24 Neutrophils # 8.8 H (1.3-7.7) k/uL Lymphocytes # 0.4 L (1.0-4.8) k/uL ESR 40 H (0-15) mm/hr Sodium 131 L (137-145) mmol/L Chloride 90 L (98-107) mmol/L Carbon Dioxide 31 H (22-30) mmol/L BUN 26 H (9-20) mg/dL Glucose 208 H (74-99) mg/dL Total Protein 6.2 L (6.3-8.2) g/dL Microbiology - Last 24 Hours (Table) 06/12/18 19:29 Blood Culture - Preliminary Blood No Growth after 24 hours Assessment and Plan Assessment: 1. Acute exacerbation of chronic obstructive airway disease and possible community-acquired pneumonia. Patient does require home O2. Chest x-ray completed showing findings that may represent basilar atelectasis or scarring similar to prior exam. Patient received Rocephin and Zithromax in the emergency room. Along with Solu-Medrol 1 time dose. CTA of the chest completed showing no pulmonary embolism. EKG completed showing normal sinus rhythm, nonspecific intraventricular block. Dr. Snowden per pulmonary services has been consulted. Patient currently on DuoNeb treatments. Pulmonary services are following we'll continue bronchodilators and antibiotics of Zithromax and Rocephin. 2. Bilateral lower extremity edema. Venous Doppler completed of lower extremities, limited exam due to body habitus did show no evident deep vein thrombosis at or above the knees. Patient's home medication of Aldactone, Lasix and metolazone restarted. 3. History of asthma 4. History of deep vein thrombosis and pulmonary embolism. 5. History of schizoaffective disorder and panic disorder. Home medications of Buspar, Wellbutrin and Zyprexa. Patient also states he takes Lamictal for his panic disorder. 6. History of hyperlipidemia. Continue home Lipitor. 7. History of alcoholism. Patient states he is 5 years sober 8. Chronic pain of lower back. Patient's home medication of MS Contin 30 mg and 120mg ordered. 9. History of gout. Continue home Allopurinol 10. Increased weakness since 2015. Patient states that he has slowly become less mobile over the past 2 years. Sed rate is 40. Physical Therapy has been consulted. Neurology has been consulted 2-D echo completed showing EF of 55-60% DVT prophylaxis Lovenox, GI prophylaxis Protonix. I performed an examination of the patient and discussed their management with the Nurse Practitioner. I have reviewed the Nurse Practitioner's notes and agree with the documented findings and plan of care
[2018-06-14 10:22] LABS: ALT 26 U/L (21-72); AST 15 U/L (17-59); Albumin 3.6 g/dL (3.5-5.0); Alkaline Phosphatase 84 U/L (38-126); Blood Urea Nitrogen 24 mg/dL (9-20); Calcium 9.8 mg/dL (8.4-10.2); Carbon Dioxide 39 mmol/L (22-30); Chloride 88 mmol/L (98-107); Glucose 159 mg/dL (74-99); Potassium 3.6 mmol/L (3.5-5.1); Total Bilirubin 0.4 mg/dL (0.2-1.3); Total Protein 6.1 g/dL (6.3-8.2)
[2018-06-14 10:34] LABS: Anion Gap 6 mmol/L; Sodium 133 mmol/L (137-145)
[2018-06-14 12:27] LABS: Glucose,Whole Blood 119 mg/dL (75-99)
[2018-06-14] MEDS: INSULIN ASPART 100 UNIT/ML 1 ML 10 ML VIAL SQ SCH ×3 (12:36→21:19)
--- NOTE | 2018-06-14 16:47 | P.PN ---
Subjective Progress Note Date: 06/14/18 Principal diagnosis: Acute COPD exacerbation, possible right lower lobe community-acquired pneumonia This is a 57-year-old white male with history of COPD, morbid obesity, had previous hip surgery in 2010, and since then the patient has been disabled. Patient has been using a walker and he is generally weak, he has history of severe chronic pain syndrome on very high doses of morphine for his pain control. Patient presented to the ER with a few days' history of increased shortness of breath, extreme fatigue, weakness, occasional chills, and as he was trying to walk a few steps at home to prepare some food, he became extremely lightheaded and short of breath. Denies any cough, and he denies any chest pain. Patient called EMS, and he was brought into the ER. Chest x-ray showed minimal atelectasis at the right lower lobe, it is no different from an old chest x-ray done in 2017. CT of the chest questioned the possibility of right lower lobe pneumonia although the findings could be postinflammatory in nature. Patient was admitted and this consult was initiated. Again the patient has no clear-cut symptoms to suggest active pneumonia, but his CT of the chest is warm and some for possible right lower lobe pneumonia. Patient denies any headache, no blurred vision, he does have lightheadedness shortness of breath with any activity, CT angiogram ruled out pulmonary embolism. Patient describes profound weakness which has been progressively getting worse since 2010. Patient is on disability since then. 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 After his hip surgery patient became disabled and required significant amount of pain medicine to control his pain. He lives by himself, does not drink any alcohol and he does not smoke anymore. Used to be a smoker until 20 years ago. On 06/14/2018 patient seen in follow-up on medical surgical floor. Reports feeling better today, breathing easier, mucin 4 L per nasal cannula with pulse ox of 95%, afebrile, vital signs are stable. Occasional nonproductive cough, patient is being treated with empiric antibiotics in the form of Rocephin and Zithromax for a possibility of a right lower lobe pneumonia, today's labs were reviewed, WBC is 13.6, hemoglobin is 13.9, sodium is 133, potassium is 3.6, CO2 is 39, BUN is 24, creatinine 0.94. He is receiving oral diuretics, and there has been improvement in the appearance of bilateral lower extremity edema. He is maintaining negative fluid balance, he is -2100 over the last 24 hours. His sed rate today was 40, and this finding is not indicative of polymyositis to explain patient's limited mobility. Acetylcholine receptor binding antibody was ordered yesterday, the results are not available. Objective - Vital Signs Vital signs: Vital Signs Temp 98.0 F 06/14/18 14:41 Pulse 74 06/14/18 14:41 Resp 18 06/14/18 14:41 BP 121/53 06/14/18 14:41 Pulse Ox 95 06/14/18 14:41 Intake & Output 06/13/18 06/14/18 06/14/18 18:59 06:59 18:59 Intake Total 840 Output Total 550 1550 Balance -550 -1550 840 Intake: Oral 840 Output: Urine 550 1550 Other: Voiding Method Bedside Commode # Voids 1 2 - Exam Physical Exam: Revealed a 57-year-old white male, obese, in no distress, sitting in bed. Head: Atraumatic, normocephalic. HEENT:[Neck is supple.] [No neck masses.] [No thyromegaly.] [No JVD.] Chest: Diminished breath sounds at the bases, no crackles, minimal wheezing on forced expiratory maneuver only. Cardiac Exam: [Normal S1 and S2, no S3 gallop, no murmur.] Abdomen: [Obese, Soft, nontender, no megaly, no rebound, no guarding, normal bowel sounds.] Extremities: [No clubbing, 2+ bipedal edema, no cyanosis.] Neurological Exam: [No focal neurologic deficit.] Psychiatric: Normal mood affect and mental status examination. Lymphatics: No lymphadenopathy. Skin: No rashes. - Labs CBC & Chem 7: 06/14/18 08:34 06/14/18 08:34 Labs: Abnormal Lab Results - Last 24 Hours (Table) 06/14/18 06/14/18 06/14/18 Range/Units 08:34 08:34 11:43 WBC 13.6 H (3.8-10.6) k/uL Neutrophils # 10.8 H (1.3-7.7) k/uL Sodium 133 L (137-145) mmol/L Chloride 88 L (98-107) mmol/L Carbon Dioxide 39 H (22-30) mmol/L BUN 24 H (9-20) mg/dL Glucose 159 H (74-99) mg/dL POC Glucose (mg/dL) 119 H (75-99) mg/dL AST 15 L (17-59) U/L Total Protein 6.1 L (6.3-8.2) g/dL Microbiology - Last 24 Hours (Table) 06/12/18 19:29 Blood Culture - Preliminary Blood No Growth after 24 hours Assessment and Plan Plan: Assessment: 1 acute COPD exacerbation 2 acute on chronic hypoxic respiratory failure secondary to COPD 3 possible right lower lobe community-acquired pneumonia although I am more convinced that the findings are postinflammatory in nature, strongly doubt acute pneumonia. But would recommend empiric Rocephin and Zithromax. 4 multiple constitutional symptoms, and chronic weakness and fatigue, this may have to be investigated further, in the meantime I have recommended screening for myasthenia gravis, I have also ordered a sed rate, this may have to be further investigated on outpatient basis. What is concerning is the fact that the patient became disabled and profoundly weak since his hip surgery in 2010. And has been disabled since. ESR was 40, and this level is not concerning for polymyositis to explain the patient's limited mobility, and generalized weakness. Still awaiting the results of acetylcholine receptor binding antibody to rule out myasthenia gravis 5 morbid obesity, with history of gastric sleeve in 2013 6 history of deep vein thrombosis. And history of pulmonary embolism. 7 obstructive sleep apnea syndrome, maintained on CPAP/BiPAP. Recommendation: 2-D echocardiogram results were noted, EF was within normal limits at 55-60%, right-sided pressures not be obtained. Patient is improving, remains on empiric antibiotics, continue with current medical treatment. Continue nebulized bronchodilators, continue Symbicort. I performed a history & physical examination of the patient and discussed their management with my nurse practitioner, Sophia Martinez. I reviewed the nurse practitioner's note and agree with the documented findings and plan of care. Lung sounds are positive for diminished breath sounds with a few scattered crackles. The findings and the impression was discussed with the patient. I attest to the documentation by the nurse practitioner. Time with Patient: Less than 30
[2018-06-14 16:56] LABS: Glucose,Whole Blood 135 mg/dL (75-99)
[2018-06-14] MEDS: MORPHINE SULFATE ER 60 MG TABLET PO SCH (18:24)
--- NOTE | 2018-06-14 19:53 | P.CNNES ---
History of Present Illness Consult date: 06/14/18 History of Present Illness: The patient is a 57-year-old white male with history of rheumatoid arthritis and degenerative disc disease multiple joint replacements and obesity. He has severe ambulatory issues secondary to obesity and orthopedic issues. He states that in 2009 he had a right hip replacement and was walking with a cane up until 2014 when his weakness progressed and he went to a walker. In 2013 and he had some 125 pound weight loss but gained it all much of it back within a year. Now he states his overall health has been the issue for several years. He complains that his right woke foot has been everted for one year. He complains of left leg weakness due to left knee pain and left hip pain. The patient has been hospitalized due to shortness of breath. He presented to the hospital with shortness of breath. He has a history of COPD and apparently had become lightheaded. He wears oxygen at home intermittently. He is being treated for pneumonia. He was admitted to the hospital with acute exacerbation of COPD and bilateral lower extremity edema. He has had venous Dopplers of his legs which showed no DVT. He has a history of DVT and pulmonary embolus. As rheumatoid arthritis as well as gout. Also has some sensory complaints which she's had for over a year and his feet but also has a history of alcoholism. He takes morphine at home for his pain. Review of Systems Constitutional: Denies chills, Denies fever Eyes: denies blurred vision, denies pain Cardiovascular: Denies chest pain, Denies shortness of breath Respiratory: Denies cough Gastrointestinal: Reports as per HPI Musculoskeletal: Denies myalgias Integumentary: Denies pruritus, Denies rash Neurological: Denies numbness, Denies weakness Psychiatric: Reports as per HPI Past Medical History Past Medical History: Asthma, Cancer, COPD, Deep Vein Thrombosis (DVT), GERD/ Reflux, GI Bleed, Hyperlipidemia, Musculoskeletal Disorder, Osteoarthritis (OA) , Pulmonary Embolus (PE), Skin Disorder, Sleep Apnea/CPAP/BIPAP Additional Past Medical History / Comment(s): HYPOGLYCEMIA. NO C-PAP. DDD, SCOLIOSIS OF SPINE, SLEEPS IN RECLINER, PAIN UNCONTROLLED. HAVING MUSCLE FATIGUE. HX OF SKIN CANCER FACE, BACK. Hiatal Hernia. Irregular HR in the past. DVT IN LEG, WENT TO LUNG - AFTER HIP SURG. BLOOD FROM RECTUM RECENTLY. History of Any Multi-Drug Resistant Organisms: MRSA Date of last positivie culture/infection: AUG 2014 MDRO Source:: NASAL Past Surgical History: Appendectomy, Bariatric Surgery, Heart Catheterization, Hernia Repair, Joint Replacement, Orthopedic Surgery Additional Past Surgical History / Comment(s): RT ELBOW SURG X2, TOTAL RT HIP, LT KNEE X2, RT ANKLE RECONSTRUCTIVE SURG, JANUARY 2014 GASTRIC SLEEVE, COLONOSCOPY'S. Basal Cell CA Face, Back. LT ING HERNIA 05/2016. Past Anesthesia/Blood Transfusion Reactions: Previous Problems w/ Anesthesia Additional Past Anesthesia/Blood Transfusion Reaction / Comment(s): STATES HE WAS TOLD HE WAS A DIFFICULT INTUBATION WITH GASTRIC SLEEVE SURGERY, Difficulty Breathing UPON Waking Up. Past Psychological History: Anxiety, Depression, Panic Disorder, Schizoaffective Disorder Additional Psychological History / Comment(s): STATES PARANOID AT TIMES, claustrophobic, states very nervous about having general anesthesia. Smoking Status: Former smoker Past Alcohol Use History: None Reported Additional Past Alcohol Use History / Comment(s): QUIT SMOKING 1998, smoked 4 cigerettes/day, statrted as a teenager. FORMER ETOH ABUSE. Pt states he is 5 years sober. Past Drug Use History: None Reported Additional Drug Use History / Comment(s): PAST HX OF MARIJUANA USE, DENIES USE IN YEARS. - Past Family History Father Family Medical History: Cancer Additional Family Medical History / Comment(s): LUNG CA Medications and Allergies Home Medications Medication Instructions Recorded Confirmed Type Aspirin 81 mg PO DAILY 09/13/14 06/13/18 History Furosemide [Lasix] 40 mg PO DAILY 09/13/14 06/13/18 History Potassium Chloride [Klor-Con 20] 20 meq PO TID 09/13/14 06/13/18 History Ergocalciferol [Vitamin D2 50,000 unit PO WESA 09/03/15 06/13/18 History (DRISDOL)] OLANZapine [ZyPREXA] 20 mg PO HS 09/03/15 06/13/18 History Omeprazole [PriLOSEC] 20 mg PO AC-BRKFST 09/03/15 06/13/18 History Vitamin E 1,000 unit PO HS 09/03/15 06/13/18 History lamoTRIgine 150 mg PO BID 09/03/15 06/13/18 History Atorvastatin [Lipitor] 10 mg PO DAILY 06/09/16 06/13/18 History Metolazone [Zaroxolyn] 2.5 mg PO DAILY 06/17/16 06/13/18 History Morphine Sulfate [Morphine Sulfate 60 mg PO W/SUPPER 06/17/16 06/13/18 History ER] Morphine Sulfate [Morphine Sulfate 120 mg PO QAM 06/17/16 06/13/18 History ER] Spironolactone [Aldactone] 25 mg PO BID #60 tab 10/12/16 06/13/18 Rx Cilostazol [Pletal] 100 mg PO BID 06/12/18 06/13/18 History busPIRone HCL 10 mg PO BID 06/12/18 06/13/18 History Ascorbic Acid [Vitamin C] 1,000 mg PO BID 06/13/18 06/13/18 History Febuxostat [Uloric] 80 mg PO DAILY 06/13/18 06/13/18 History Gabapentin 600 mg PO TID 06/13/18 06/13/18 History buPROPion XL [Wellbutrin Xl] 150 mg PO DAILY 06/13/18 06/13/18 History Allergies Allergy/AdvReac Type Severity Reaction Status Date / Time codeine Allergy Severe Anaphylaxis Verified 06/13/18 09:36 piperacillin sodium Allergy Unknown Verified 06/13/18 09:36 [From Zosyn] tazobactam sodium Allergy Unknown Verified 06/13/18 09:36 [From Zosyn] Physical Examination - Vital Signs Vital Signs: Vital Signs Temp Pulse Resp BP Pulse Ox 06/14/18 16:00 18 06/14/18 14:41 98.0 F 74 18 121/53 95 06/14/18 08:00 16 06/14/18 07:29 97.9 F 16 132/72 06/13/18 23:00 97.8 F 72 18 115/53 98 06/13/18 21:37 99 Intake and Output 06/14/18 06/14/18 06/14/18 06:59 14:59 22:59 Intake Total 840 600 Output Total 850 Balance -850 840 600 Intake: Oral 840 600 Output: Urine 850 Other: # Voids 2 1 - Constitutional General appearance: morbidly obese - EENT EENT: PERRL, hearing intact, vision intact - Respiratory Respiratory: lungs clear - Cardiovascular Cardiovascular: regular rate - Neurologic Mental status: He was awake alert and oriented and answered questions appropriately. There was no a aphasia or dysarthria. Cranial nerve examination: PERRL, EOMI, face symmetric, tongue midline Speech examination: intact Detailed motor examination: other (Motor examination is difficult to examine given the patient's habitus. He is able to lift his legs, right more than left off the bed.) Detailed sensory examination: other (Stocking distribution sensory loss in the feet) - Psychiatric Psychiatric: mood/affect appropriate Results - Laboratory Findings CBC and BMP: 06/14/18 08:34 06/14/18 08:34 Abnormal Lab Findings: Abnormal Labs 06/12/18 06/12/18 06/12/18 19:29 19:29 19:29 WBC 14.4 H Neutrophils # 12.2 H Lymphocytes # ESR D-Dimer Sodium 133 L Chloride 90 L Carbon Dioxide 34 H BUN 27 H Glucose 119 H POC Glucose (mg/dL) AST Total Creatine Kinase 54 L Total Protein 06/12/18 06/13/18 06/13/18 19:29 10:24 10:24 WBC Neutrophils # 8.8 H Lymphocytes # 0.4 L ESR D-Dimer 0.74 H Sodium 131 L Chloride 90 L Carbon Dioxide 31 H BUN 26 H Glucose 208 H POC Glucose (mg/dL) AST Total Creatine Kinase Total Protein 6.2 L 06/13/18 06/14/18 06/14/18 10:24 08:34 08:34 WBC 13.6 H Neutrophils # 10.8 H Lymphocytes # ESR 40 H D-Dimer Sodium 133 L Chloride 88 L Carbon Dioxide 39 H BUN 24 H Glucose 159 H POC Glucose (mg/dL) AST 15 L Total Creatine Kinase Total Protein 6.1 L 06/14/18 06/14/18 11:43 16:49 WBC Neutrophils # Lymphocytes # ESR D-Dimer Sodium Chloride Carbon Dioxide BUN Glucose POC Glucose (mg/dL) 119 H 135 H AST Total Creatine Kinase Total Protein Assessment and Plan (1) General weakness Current Visit: Yes Status: Acute SNOMED Code(s): 27083256 (2) Acute exacerbation of chronic obstructive airways disease Current Visit: Yes Status: Acute SNOMED Code(s): 689659142 (3) Community acquired pneumonia Current Visit: Yes Status: Acute SNOMED Code(s): 092540125 Plan: The patient is a 57-year-old morbidly obese man who presents the hospital with increased shortness of breath, he is admitted with COPD exacerbation and community-acquired pneumonia. Neurology is requested to see the patient regarding general weakness. The patient does have history of difficulty with ambulation due to his orthopedic issues and obese habitus. He has no history of focal weakness or numbness. He does have history to suggest a peripheral neuropathy. Further evaluation of this can be done outpatient with EMG testing. His current acute exacerbation of COPD and the pneumonia is likely contributing to his more acute general weakness symptoms. Regarding his symptoms of chronic weakness which has been gradually worsening over the past years, he can follow-up with orthopedic surgery regarding his left hip and left knee pain, as well as his chronic back pain.
[2018-06-14] MEDS: IPRATROPIUM-ALBUTEROL 3 ML NEB INHALATION SCH (21:01)
[2018-06-14 21:13] LABS: Glucose,Whole Blood 96 mg/dL (75-99)
[2018-06-14] MEDS: AZITHROMYCIN 500 MG TAB PO SCH (21:21)
[2018-06-14] MEDS: cefTRIAXone IN SWFI 1,000 MG/10 ML SYRINGE IVP SCH (21:21)
[2018-06-14] MEDS: OLANZapine 10 MG TAB PO SCH (21:23)
[2018-06-14] MEDS: VITAMIN E (DL,TOCOPHERYL ACET) 400 UNIT CAP PO SCH (21:23)
[2018-06-14] MEDS ORDERED: IPRATROPIUM-ALBUTEROL 3 ML NEB ONE (23:35)
[2018-06-15] MEDS: IPRATROPIUM-ALBUTEROL 3 ML NEB INHALATION SCH ×6 (04:16→21:28)
[2018-06-15] MEDS: MORPHINE SULFATE ER 60 MG TABLET PO SCH ×2 (06:35→18:01)
[2018-06-15] MEDS: busPIRone HCl 10 MG TAB PO SCH ×2 (06:36→18:01)
[2018-06-15 07:23] LABS: Glucose,Whole Blood 99 mg/dL (75-99)
[2018-06-15] MEDS: INSULIN ASPART 100 UNIT/ML 1 ML 10 ML VIAL SQ SCH ×4 (07:41→22:04)
[2018-06-15] MEDS: SYMBICORT 160-4.5 MCG INHALER INHALATION SCH (08:50)
[2018-06-15 08:57] LABS: Basophils % (A) 1 %; Eosinophils # (A) 0.1 k/uL (0-0.7); Eosinophils % (A) 1 %; HCT 40.4 % (39.0-53.0); HGB 13.3 gm/dL (13.0-17.5); Lymphocytes # (A) 2.5 k/uL (1.0-4.8); Lymphocytes % (A) 28 %; MCH 28.6 pg (25.0-35.0); MCV 86.7 fL (80.0-100.0); Mean Platelet Volume 7.3; Monocytes # (A) 0.6 k/uL (0-1.0); Monocytes % (A) 7 %; Neutrophils # (A) 5.5 k/uL (1.3-7.7); Neutrophils % (A) 62 %; Platelet Count 302 k/uL (150-450); RBC 4.66 m/uL (4.30-5.90); RDW 13.3 % (11.5-15.5); WBC 8.9 k/uL (3.8-10.6)
[2018-06-15 09:30] LABS: ALT 25 U/L (21-72); AST 13 U/L (17-59); Albumin 3.5 g/dL (3.5-5.0); Alkaline Phosphatase 76 U/L (38-126); Anion Gap 7 mmol/L; Blood Urea Nitrogen 25 mg/dL (9-20); Calcium 9.6 mg/dL (8.4-10.2); Carbon Dioxide 38 mmol/L (22-30); Chloride 88 mmol/L (98-107); Glucose 97 mg/dL (74-99); Potassium 4.1 mmol/L (3.5-5.1); Sodium 133 mmol/L (137-145); Total Bilirubin 0.3 mg/dL (0.2-1.3)
[2018-06-15] MEDS: CILOSTAZOL 100 MG TAB PO SCH ×2 (09:37→22:05)
[2018-06-15] MEDS: ENOXAPARIN 40 MG/0.4 ML SYRINGE SQ SCH (09:37)
[2018-06-15] MEDS: ALLOPURINOL 100 MG TAB PO SCH (09:37)
[2018-06-15] MEDS: ASCORBIC ACID 500 MG TAB PO SCH ×2 (09:37→22:05)
[2018-06-15] MEDS: buPROPion XL 150 MG TAB.ER.24H PO SCH (09:38)
[2018-06-15] MEDS: lamoTRIgine 100 MG TAB PO SCH ×2 (09:38→22:06)
[2018-06-15] MEDS: SPIRONOLACTONE 25 MG TAB PO SCH ×2 (09:38→17:11)
[2018-06-15] MEDS: ATORVASTATIN 10 MG TAB PO SCH (09:38)
[2018-06-15] MEDS: POTASSIUM CHLORIDE ER 20 MEQ TAB.ER PO SCH ×3 (09:38→22:06)
[2018-06-15] MEDS: FUROSEMIDE 40 MG TAB PO SCH (09:38)
[2018-06-15] MEDS: METOLAZONE 2.5 MG TAB PO SCH (09:38)
[2018-06-15] MEDS: PANTOPRAZOLE 40 MG TABLET PO SCH (09:38)
[2018-06-15] MEDS: ERGOCALCIFEROL 50,000 UNIT CAP PO SCH (09:39)
[2018-06-15] MEDS: GABAPENTIN 300 MG CAP PO SCH ×3 (09:39→22:06)
[2018-06-15] MEDS: ASPIRIN 81 MG PO SCH (09:44)
--- NOTE | 2018-06-15 11:53 | P.PN ---
Subjective Progress Note Date: 06/15/18 This is a 57-year-old patient of Dr. Hinds. Patient presented to the emergency department with complaints of increasing shortness of breath throughout the week and feeling more fatigued. Patient stated that he was making his dinner when he became very lightheaded and had to sit down. Patient does state that he wears oxygen intermittently at home but has required it more over the past few days. Patient has a significant history for asthma, COPD, DVT , GERD, GI bleed- rt to polyps in the past, skin CA, hyperlipidemia, OA, PE, chronic pain and hiatal hernia. D-dimer on admission 0.74. CTA was completed and showed no pulmonary embolism, right lower lobe and early right upper lobe infiltrate. Chest x-ray completed. Findings may represent basilar atelectasis or scarring similar to prior exam. Patient also presented with significant lower extremity edema. Ultrasound of the lower extremities were ordered. Limited exam due to body habitus but did show no evidence of DVT at or above the knees. EKG showing normal sinus rhythm, nonspecific intraventricular block. Patient received Zithromax and Rocephin, along with solumedrol in the emergency room. Patient also started on DuoNeb breathing treatments. Dr. Snowden per pulmonary services have been consulted. Blood cell 14.4 and admission, blood culture has been ordered. This time patient is on nasal cannula 2 L. Denies chest pain. Does state shortness of breath has improved from admission. Patient denies nausea vomiting or diarrhea. Patient denies burning or frequency with urination. On 06/14/2018. Patient currently resting in bed. Does complain that he is more anxious due to the timing of his BuSpar and MS Contin being different from home. Discussed with nurse and pharmacist and will time accordingly to when patient takes the medications at home. Patient denies chest pain or shortness of breath at this time. 2-D echo had been ordered by pulmonary care services. EF between 55 and 60%. On 06/15/2018 patient currently resting in bed post working with physical therapy. Patient states he is feeling better today than he did yesterday. Currently on nasal cannula at 4 L. Neurology has been consulted for increased weakness over the past couple years. Patient denies chest pain or shortness of breath at this time denies nausea vomiting or diarrhea. Objective - Vital Signs Vital signs: Vital Signs Temp 96.9 F L 06/15/18 06:57 Pulse 69 06/15/18 10:46 Resp 16 06/15/18 10:46 BP 115/63 06/15/18 06:57 Pulse Ox 100 06/15/18 06:57 Intake & Output 06/14/18 06/15/18 06/15/18 18:59 06:59 18:59 Intake Total 1440 200 Balance 1440 200 Weight 204.1 kg Intake: Oral 1440 200 Other: Voiding Method Bedside Commode Urinal # Voids 1 2 # Bowel Movements 1 - Exam Head normocephalic Neck supple Lungs clear to auscultation bilaterally no wheezing or crackles Heart regular rate and rhythm S1-S2, no rub or gallop Abdomen is soft obese positive bowel sounds no hepatosplenomegaly Extremities no edema, +2 CHAYO lower extremity edema Neuro alert and orientated to 3 - Labs CBC & Chem 7: 06/15/18 08:32 06/15/18 08:32 Labs: Abnormal Lab Results - Last 24 Hours (Table) 06/14/18 06/14/18 06/15/18 Range/Units 11:43 16:49 08:32 Sodium 133 L (137-145) mmol/L Chloride 88 L (98-107) mmol/L Carbon Dioxide 38 H (22-30) mmol/L BUN 25 H (9-20) mg/dL POC Glucose (mg/dL) 119 H 135 H (75-99) mg/dL AST 13 L (17-59) U/L Total Protein 6.0 L (6.3-8.2) g/dL Microbiology - Last 24 Hours (Table) 06/12/18 19:29 Blood Culture - Preliminary Blood No Growth after 48 hours Assessment and Plan Assessment: 1. Acute exacerbation of chronic obstructive airway disease and possible community-acquired pneumonia. Patient does require home O2. Chest x-ray completed showing findings that may represent basilar atelectasis or scarring similar to prior exam. Patient received Rocephin and Zithromax in the emergency room. Along with Solu-Medrol 1 time dose. CTA of the chest completed showing no pulmonary embolism. EKG completed showing normal sinus rhythm, nonspecific intraventricular block. Dr. Snowden per pulmonary services has been consulted. Patient currently on DuoNeb treatments. Pulmonary services are following we'll continue bronchodilators and antibiotics of Zithromax and Rocephin. 2. Bilateral lower extremity edema. Venous Doppler completed of lower extremities, limited exam due to body habitus did show no evident deep vein thrombosis at or above the knees. Patient's home medication of Aldactone, Lasix and metolazone restarted. 3. History of asthma 4. History of deep vein thrombosis and pulmonary embolism. 5. History of schizoaffective disorder and panic disorder. Home medications of Buspar, Wellbutrin and Zyprexa. Patient also states he takes Lamictal for his panic disorder. 6. History of hyperlipidemia. Continue home Lipitor. 7. History of alcoholism. Patient states he is 5 years sober 8. Chronic pain of lower back. Patient's home medication of MS Contin 30 mg and 120mg ordered. 9. History of gout. Continue home Allopurinol 10. Increased weakness since 2015. Patient states that he has slowly become less mobile over the past 2 years. Sed rate is 40. Physical Therapy has been consulted. Neurology has been consulted. Per neurology weakness believes to be caused from his orthopedic issues and obese habitus. Possible peripheral neuropathy but further evaluation can be done outpatient with EMG testing. 2-D echo completed showing EF of 55-60% DVT prophylaxis Lovenox, GI prophylaxis Protonix. I performed an examination of the patient and discussed their management with the Nurse Practitioner. I have reviewed the Nurse Practitioner's notes and agree with the documented findings and plan of care
[2018-06-15 12:44] LABS: Glucose,Whole Blood 104 mg/dL (75-99)
--- NOTE | 2018-06-15 14:02 | P.PN ---
Subjective Progress Note Date: 06/15/18 Principal diagnosis: Acute COPD exacerbation, possible right lower lobe community-acquired pneumonia This is a 57-year-old white male with history of COPD, morbid obesity, had previous hip surgery in 2010, and since then the patient has been disabled. Patient has been using a walker and he is generally weak, he has history of severe chronic pain syndrome on very high doses of morphine for his pain control. Patient presented to the ER with a few days' history of increased shortness of breath, extreme fatigue, weakness, occasional chills, and as he was trying to walk a few steps at home to prepare some food, he became extremely lightheaded and short of breath. Denies any cough, and he denies any chest pain. Patient called EMS, and he was brought into the ER. Chest x-ray showed minimal atelectasis at the right lower lobe, it is no different from an old chest x-ray done in 2017. CT of the chest questioned the possibility of right lower lobe pneumonia although the findings could be postinflammatory in nature. Patient was admitted and this consult was initiated. Again the patient has no clear-cut symptoms to suggest active pneumonia, but his CT of the chest is warm and some for possible right lower lobe pneumonia. Patient denies any headache, no blurred vision, he does have lightheadedness shortness of breath with any activity, CT angiogram ruled out pulmonary embolism. Patient describes profound weakness which has been progressively getting worse since 2010. Patient is on disability since then. 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 After his hip surgery patient became disabled and required significant amount of pain medicine to control his pain. He lives by himself, does not drink any alcohol and he does not smoke anymore. Used to be a smoker until 20 years ago. On 06/14/2018 patient seen in follow-up on medical surgical floor. Reports feeling better today, breathing easier, mucin 4 L per nasal cannula with pulse ox of 95%, afebrile, vital signs are stable. Occasional nonproductive cough, patient is being treated with empiric antibiotics in the form of Rocephin and Zithromax for a possibility of a right lower lobe pneumonia, today's labs were reviewed, WBC is 13.6, hemoglobin is 13.9, sodium is 133, potassium is 3.6, CO2 is 39, BUN is 24, creatinine 0.94. He is receiving oral diuretics, and there has been improvement in the appearance of bilateral lower extremity edema. He is maintaining negative fluid balance, he is -2100 over the last 24 hours. His sed rate today was 40, and this finding is not indicative of polymyositis to explain patient's limited mobility. Acetylcholine receptor binding antibody was ordered yesterday, the results are not available. On 06/15/2018 patient seen in follow-up on medical surgical floor. Continues to improve, although still has some dyspnea with exertion, and still not able to produce much sputum. His cough is dry, noncongested. Lung sounds are positive for right lower lobe crackles, diminished breath sounds overall, no wheezing appreciated. No fever no chills, remains on 4 L per nasal cannula with a pulse ox of 100%, vital signs are stable. Remains on oral diuretics, bilateral lower extremity edema is improving. Generalized weakness is improving as well, and the patient was able to walk with a walker in the room today, and tolerated activity fairly well. -1250 ML fluid balance. Objective - Vital Signs Vital signs: Vital Signs Temp 96.9 F L 06/15/18 06:57 Pulse 80 06/15/18 12:42 Resp 16 06/15/18 10:46 BP 115/63 06/15/18 06:57 Pulse Ox 100 06/15/18 06:57 Intake & Output 06/14/18 06/15/18 06/15/18 18:59 06:59 18:59 Intake Total 1440 200 Output Total 1450 Balance 1440 -1250 Weight 204.1 kg Intake: Oral 1440 200 Output: Urine 1450 Other: Voiding Method Bedside Commode Urinal # Voids 1 2 2 # Bowel Movements 1 1 - Exam Physical Exam: Revealed a 57-year-old white male, obese, in no distress, sitting in bed. Head: Atraumatic, normocephalic. HEENT:[Neck is supple.] [No neck masses.] [No thyromegaly.] [No JVD.] Chest: Diminished breath sounds at the bases, minimal crackles at the right lower base Cardiac Exam: [Normal S1 and S2, no S3 gallop, no murmur.] Abdomen: [Obese, Soft, nontender, no megaly, no rebound, no guarding, normal bowel sounds.] Extremities: [No clubbing, 2+ bipedal edema, no cyanosis.] Neurological Exam: [No focal neurologic deficit.] Psychiatric: Normal mood affect and mental status examination. Lymphatics: No lymphadenopathy. Skin: No rashes. - Labs CBC & Chem 7: 06/15/18 08:32 06/15/18 08:32 Labs: Abnormal Lab Results - Last 24 Hours (Table) 06/14/18 06/15/18 06/15/18 Range/Units 16:49 08:32 12:28 Sodium 133 L (137-145) mmol/L Chloride 88 L (98-107) mmol/L Carbon Dioxide 38 H (22-30) mmol/L BUN 25 H (9-20) mg/dL POC Glucose (mg/dL) 135 H 104 H (75-99) mg/dL AST 13 L (17-59) U/L Total Protein 6.0 L (6.3-8.2) g/dL Microbiology - Last 24 Hours (Table) 06/12/18 19:29 Blood Culture - Preliminary Blood No Growth after 48 hours Assessment and Plan Plan: Assessment: 1 acute COPD exacerbation 2 acute on chronic hypoxic respiratory failure secondary to COPD 3 possible right lower lobe community-acquired pneumonia although I am more convinced that the findings are postinflammatory in nature, strongly doubt acute pneumonia. But would recommend empiric Rocephin and Zithromax. 4 multiple constitutional symptoms, and chronic weakness and fatigue, this may have to be investigated further, in the meantime I have recommended screening for myasthenia gravis, I have also ordered a sed rate, this may have to be further investigated on outpatient basis. What is concerning is the fact that the patient became disabled and profoundly weak since his hip surgery in 2010. And has been disabled since. ESR was 40, and this level is not concerning for polymyositis to explain the patient's limited mobility, and generalized weakness. Still awaiting the results of acetylcholine receptor binding antibody to rule out myasthenia gravis 5 morbid obesity, with history of gastric sleeve in 2013 6 history of deep vein thrombosis. And history of pulmonary embolism. 7 obstructive sleep apnea syndrome, maintained on CPAP/BiPAP. Recommendation: Continue current medical treatment, continue current antibiotic coverage, patient is afebrile, he is feeling better and breathing easier. Increase activity as tolerated, patient was able to walk in the room today. Continue the images images is oral diuretics, we'll repeat a chest x-ray in the morning, could possibly be considered for discharge in the next 24 hours pending further clinical improvement. I performed a history & physical examination of the patient and discussed their management with my nurse practitioner, Sophia Martinez. I reviewed the nurse practitioner's note and agree with the documented findings and plan of care. Lung sounds are positive for diminished breath sounds with a few scattered crackles at the right lower base. The findings and the impression was discussed with the patient. I attest to the documentation by the nurse practitioner. Time with Patient: Less than 30
[2018-06-15 17:25] LABS: Hemoglobin A1C 5.7 % (4.0-6.0)
[2018-06-15 17:34] LABS: Glucose,Whole Blood 109 mg/dL (75-99)
[2018-06-15 21:53] LABS: Glucose,Whole Blood 107 mg/dL (75-99)
[2018-06-15] MEDS: cefTRIAXone IN SWFI 1,000 MG/10 ML SYRINGE IVP SCH (22:05)
[2018-06-15] MEDS: AZITHROMYCIN 500 MG TAB PO SCH (22:05)
[2018-06-15] MEDS: OLANZapine 10 MG TAB PO SCH (22:06)
[2018-06-15] MEDS: VITAMIN E (DL,TOCOPHERYL ACET) 400 UNIT CAP PO SCH (22:06)
[2018-06-16] MEDS: SYMBICORT 160-4.5 MCG INHALER INHALATION SCH ×3 (04:31→20:12)
[2018-06-16] MEDS: IPRATROPIUM-ALBUTEROL 3 ML NEB INHALATION SCH ×6 (04:31→20:12)
[2018-06-16] MEDS: MORPHINE SULFATE ER 60 MG TABLET PO SCH ×2 (06:53→17:46)
[2018-06-16] MEDS: busPIRone HCl 10 MG TAB PO SCH ×2 (06:54→17:46)
[2018-06-16 07:42] LABS: Glucose,Whole Blood 77 mg/dL (75-99)
[2018-06-16] MEDS: INSULIN ASPART 100 UNIT/ML 1 ML 10 ML VIAL SQ SCH (07:59)
[2018-06-16] MEDS: SPIRONOLACTONE 25 MG TAB PO SCH ×2 (08:01→17:46)
[2018-06-16] MEDS: PANTOPRAZOLE 40 MG TABLET PO SCH (08:01)
[2018-06-16] MEDS: buPROPion XL 150 MG TAB.ER.24H PO SCH (08:01)
[2018-06-16] MEDS: CILOSTAZOL 100 MG TAB PO SCH ×2 (08:01→21:12)
[2018-06-16] MEDS: lamoTRIgine 100 MG TAB PO SCH ×2 (08:01→21:12)
[2018-06-16] MEDS: GABAPENTIN 300 MG CAP PO SCH ×3 (08:01→21:12)
[2018-06-16] MEDS: ALLOPURINOL 100 MG TAB PO SCH (08:01)
[2018-06-16] MEDS: ATORVASTATIN 10 MG TAB PO SCH (08:02)
[2018-06-16] MEDS: ENOXAPARIN 40 MG/0.4 ML SYRINGE SQ SCH (08:02)
[2018-06-16] MEDS: ASCORBIC ACID 500 MG TAB PO SCH ×2 (08:02→21:12)
[2018-06-16] MEDS: METOLAZONE 2.5 MG TAB PO SCH (08:02)
[2018-06-16] MEDS: POTASSIUM CHLORIDE ER 20 MEQ TAB.ER PO SCH ×3 (08:02→21:13)
[2018-06-16] MEDS: ASPIRIN 81 MG PO SCH (08:03)
[2018-06-16] MEDS: FUROSEMIDE 40 MG TAB PO SCH (08:03)
[2018-06-16 08:08] LABS: Basophils # (A) 0.1 k/uL (0-0.2); Basophils % (A) 1 %; Eosinophils # (A) 0.1 k/uL (0-0.7); Eosinophils % (A) 1 %; HCT 40.7 % (39.0-53.0); HGB 13.2 gm/dL (13.0-17.5); Lymphocytes # (A) 1.9 k/uL (1.0-4.8); Lymphocytes % (A) 24 %; MCHC 32.4 g/dL (31.0-37.0); MCV 86.6 fL (80.0-100.0); Mean Platelet Volume 7.6; Monocytes # (A) 0.4 k/uL (0-1.0); Monocytes % (A) 6 %; Neutrophils # (A) 5.3 k/uL (1.3-7.7); Neutrophils % (A) 67 %; Platelet Count 284 k/uL (150-450); RDW 13.3 % (11.5-15.5); WBC 7.9 k/uL (3.8-10.6)
[2018-06-16 08:34] LABS: ALT 26 U/L (21-72); AST 13 U/L (17-59); Albumin 3.5 g/dL (3.5-5.0); Alkaline Phosphatase 81 U/L (38-126); Anion Gap 7 mmol/L; Blood Urea Nitrogen 21 mg/dL (9-20); Calcium 9.5 mg/dL (8.4-10.2); Chloride 87 mmol/L (98-107); Glucose 105 mg/dL (74-99); Potassium 3.6 mmol/L (3.5-5.1); Sodium 134 mmol/L (137-145); Total Bilirubin 0.4 mg/dL (0.2-1.3); Total Protein 5.9 g/dL (6.3-8.2)
--- NOTE | 2018-06-16 09:16 | XR ---
EXAMINATION TYPE: XR chest 1V portable DATE OF EXAM: 06/16/2018 Comparison: 06/12/2018 Clinical History: 57-year-old male shortness of breath Findings: Low lung volumes with crowded vascular markings. Increasing patchy opacity at the right base. Large a ppearance to the central pulmonary arteries. Prominent hazy peripheral lung densities relating to ove rlying soft tissue. No significant pleural effusion seen. Heart appears borderline enlarged. Impression: 1. Borderline cardiomegaly and pulmonary arterial hypertension. 2. Hypoventilatory changes and increasing patchy right basilar opacity, possible pneumonia given the CT appearance.
[2018-06-16 09:45] LABS: Carbon Dioxide 40 mmol/L (22-30)
--- NOTE | 2018-06-16 12:09 | P.PN ---
Subjective Progress Note Date: 06/16/18 This is a 57-year-old patient of Dr. Hinds. Patient presented to the emergency department with complaints of increasing shortness of breath throughout the week and feeling more fatigued. Patient stated that he was making his dinner when he became very lightheaded and had to sit down. Patient does state that he wears oxygen intermittently at home but has required it more over the past few days. Patient has a significant history for asthma, COPD, DVT , GERD, GI bleed- rt to polyps in the past, skin CA, hyperlipidemia, OA, PE, chronic pain and hiatal hernia. D-dimer on admission 0.74. CTA was completed and showed no pulmonary embolism, right lower lobe and early right upper lobe infiltrate. Chest x-ray completed. Findings may represent basilar atelectasis or scarring similar to prior exam. Patient also presented with significant lower extremity edema. Ultrasound of the lower extremities were ordered. Limited exam due to body habitus but did show no evidence of DVT at or above the knees. EKG showing normal sinus rhythm, nonspecific intraventricular block. Patient received Zithromax and Rocephin, along with solumedrol in the emergency room. Patient also started on DuoNeb breathing treatments. Dr. Snowden per pulmonary services have been consulted. Blood cell 14.4 and admission, blood culture has been ordered. This time patient is on nasal cannula 2 L. Denies chest pain. Does state shortness of breath has improved from admission. Patient denies nausea vomiting or diarrhea. Patient denies burning or frequency with urination. On 06/14/2018. Patient currently resting in bed. Does complain that he is more anxious due to the timing of his BuSpar and MS Contin being different from home. Discussed with nurse and pharmacist and will time accordingly to when patient takes the medications at home. Patient denies chest pain or shortness of breath at this time. 2-D echo had been ordered by pulmonary care services. EF between 55 and 60%. On 06/15/2018 patient currently resting in bed post working with physical therapy. Patient states he is feeling better today than he did yesterday. Currently on nasal cannula at 4 L. Neurology has been consulted for increased weakness over the past couple years. Patient denies chest pain or shortness of breath at this time denies nausea vomiting or diarrhea. On 06/16/2018 patient currently resting in bed stating he is tired from all the activity of yesterday with physical therapy. Currently on his canal 2 L. CO2 elevated at 40. Chest x-ray completed yesterday showing borderline cardiomegaly and pulmonary arterial hypertension. Hypoventilatory changes and increasing patchy right basilar opacities, possible pneumonia given the CT appearance. Pulmonary following closely. Patient remains on Rocephin and Zithromax for antibiotics. Patient [facility]. Case management and social work consulted. Denies chest pain or shortness of breath at this time. Denies nausea. Denies any urinary burning or frequency. Objective - Vital Signs Vital signs: Vital Signs Temp 97.9 F 06/16/18 07:40 Pulse 84 06/16/18 11:07 Resp 20 06/16/18 07:40 BP 115/55 06/16/18 07:40 Pulse Ox 98 06/16/18 07:40 Intake & Output 06/15/18 06/16/18 06/16/18 18:59 06:59 18:59 Intake Total 500 1400 300 Output Total 2450 Balance -1950 1400 300 Weight 204.1 kg 204.1 kg Intake: Oral 500 1400 300 Output: Urine 2450 Other: Voiding Method Bedside Commode Bedside Commode Urinal Urinal # Voids 1 2 # Bowel Movements 0 - Exam Head normocephalic Neck supple Lungs clear to auscultation bilaterally no wheezing or crackles Heart regular rate and rhythm S1-S2, no rub or gallop Abdomen is soft obese positive bowel sounds no hepatosplenomegaly Extremities no edema, +2 CHAYO lower extremity edema Neuro alert and orientated to 3 - Labs CBC & Chem 7: 06/16/18 07:47 06/16/18 07:47 Labs: Abnormal Lab Results - Last 24 Hours (Table) 06/15/18 06/15/18 06/15/18 Range/Units 12:28 17:16 21:29 Sodium (137-145) mmol/L Chloride (98-107) mmol/L Carbon Dioxide (22-30) mmol/L BUN (9-20) mg/dL Glucose (74-99) mg/dL POC Glucose (mg/dL) 104 H 109 H 107 H (75-99) mg/dL AST (17-59) U/L Total Protein (6.3-8.2) g/dL 06/16/18 Range/Units 07:47 Sodium 134 L (137-145) mmol/L Chloride 87 L (98-107) mmol/L Carbon Dioxide 40 H* (22-30) mmol/L BUN 21 H (9-20) mg/dL Glucose 105 H (74-99) mg/dL POC Glucose (mg/dL) (75-99) mg/dL AST 13 L (17-59) U/L Total Protein 5.9 L (6.3-8.2) g/dL Microbiology - Last 24 Hours (Table) 06/12/18 19:29 Blood Culture - Preliminary Blood No Growth after 72 hours Assessment and Plan Assessment: 1. Acute exacerbation of chronic obstructive airway disease and possible community-acquired pneumonia. Patient does require home O2. Chest x-ray completed showing findings that may represent basilar atelectasis or scarring similar to prior exam. CTA of the chest completed showing no pulmonary embolism. EKG completed showing normal sinus rhythm, nonspecific intraventricular block. Dr. Snowden per pulmonary services has been consulted. Patient currently on DuoNeb treatments. Pulmonary services are following we' ll continue bronchodilators and antibiotics of Zithromax and Rocephin. Chest x- ray completed this morning. Showing borderline cardiomegaly and pulmonary arterial hypertension. Hypoventilatory changes and increasing patchy right basilar opacity, possible pneumonia given the CT appearance. Pulmonary service is following. 2. Bilateral lower extremity edema. Venous Doppler completed of lower extremities, limited exam due to body habitus did show no evident deep vein thrombosis at or above the knees. Patient's home medication of Aldactone, Lasix and metolazone restarted. 3. History of asthma 4. History of deep vein thrombosis and pulmonary embolism. 5. History of schizoaffective disorder and panic disorder. Home medications of Buspar, Wellbutrin and Zyprexa. Patient also states he takes Lamictal for his panic disorder. 6. History of hyperlipidemia. Continue home Lipitor. 7. History of alcoholism. Patient states he is 5 years sober 8. Chronic pain of lower back. Patient's home medication of MS Contin 30 mg and 120mg ordered. 9. History of gout. Continue home Allopurinol 10. Increased weakness since 2014. Patient states that he has slowly become less mobile over the past 2 years. Sed rate is 40. Physical Therapy has been consulted. Neurology has been consulted. Per neurology weakness believes to be caused from his orthopedic issues and obese habitus. Possible peripheral neuropathy but further evaluation can be done outpatient with EMG testing. 2-D echo completed showing EF of 55-60% Possible discharge to [facility] case management working on discharge planning DVT prophylaxis Lovenox, GI prophylaxis Protonix. I performed an examination of the patient and discussed their management with the Nurse Practitioner. I have reviewed the Nurse Practitioner's notes and agree with the documented findings and plan of care
--- NOTE | 2018-06-16 15:44 | P.PN ---
Subjective Progress Note Date: 06/16/18 Principal diagnosis: Acute COPD exacerbation, possible right lower lobe community-acquired pneumonia This is a 57-year-old white male with history of COPD, morbid obesity, had previous hip surgery in 2010, and since then the patient has been disabled. Patient has been using a walker and he is generally weak, he has history of severe chronic pain syndrome on very high doses of morphine for his pain control. Patient presented to the ER with a few days' history of increased shortness of breath, extreme fatigue, weakness, occasional chills, and as he was trying to walk a few steps at home to prepare some food, he became extremely lightheaded and short of breath. Denies any cough, and he denies any chest pain. Patient called EMS, and he was brought into the ER. Chest x-ray showed minimal atelectasis at the right lower lobe, it is no different from an old chest x-ray done in 2017. CT of the chest questioned the possibility of right lower lobe pneumonia although the findings could be postinflammatory in nature. Patient was admitted and this consult was initiated. Again the patient has no clear-cut symptoms to suggest active pneumonia, but his CT of the chest is warm and some for possible right lower lobe pneumonia. Patient denies any headache, no blurred vision, he does have lightheadedness shortness of breath with any activity, CT angiogram ruled out pulmonary embolism. Patient describes profound weakness which has been progressively getting worse since 2010. Patient is on disability since then. 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 After his hip surgery patient became disabled and required significant amount of pain medicine to control his pain. He lives by himself, does not drink any alcohol and he does not smoke anymore. Used to be a smoker until 20 years ago. On 06/14/2018 patient seen in follow-up on medical surgical floor. Reports feeling better today, breathing easier, mucin 4 L per nasal cannula with pulse ox of 95%, afebrile, vital signs are stable. Occasional nonproductive cough, patient is being treated with empiric antibiotics in the form of Rocephin and Zithromax for a possibility of a right lower lobe pneumonia, today's labs were reviewed, WBC is 13.6, hemoglobin is 13.9, sodium is 133, potassium is 3.6, CO2 is 39, BUN is 24, creatinine 0.94. He is receiving oral diuretics, and there has been improvement in the appearance of bilateral lower extremity edema. He is maintaining negative fluid balance, he is -2100 over the last 24 hours. His sed rate today was 40, and this finding is not indicative of polymyositis to explain patient's limited mobility. Acetylcholine receptor binding antibody was ordered yesterday, the results are not available. On 06/15/2018 patient seen in follow-up on medical surgical floor. Continues to improve, although still has some dyspnea with exertion, and still not able to produce much sputum. His cough is dry, noncongested. Lung sounds are positive for right lower lobe crackles, diminished breath sounds overall, no wheezing appreciated. No fever no chills, remains on 4 L per nasal cannula with a pulse ox of 100%, vital signs are stable. Remains on oral diuretics, bilateral lower extremity edema is improving. Generalized weakness is improving as well, and the patient was able to walk with a walker in the room today, and tolerated activity fairly well. -1250 ML fluid balance. On 06/16/2018 patient seen in follow-up on medical surgical floor. Today's chest x-ray shows an increased density in the right lower lobe, possibly developing infiltrate versus atelectasis. Patient's feeling fatigued today, he thinks he may have overdone it yesterday. He is resting in bed, has a nonproductive cough, still has a tightening ache in his chest with coughing. Afebrile, pulse ox on 2 L per nasal cannula is 98%. On sounds are positive for right posterior lower lobe crackles. He continues to diurese, knees and -550 ML fluid balance over the last 24 hours. Blood cultures are negative. Remains on empiric antibiotics. Objective - Vital Signs Vital signs: Vital Signs Temp 97.9 F 06/16/18 07:40 Pulse 84 06/16/18 11:07 Resp 20 06/16/18 07:40 BP 115/55 06/16/18 07:40 Pulse Ox 98 06/16/18 07:40 Intake & Output 06/15/18 06/16/18 06/16/18 18:59 06:59 18:59 Intake Total 500 1400 300 Output Total 2450 Balance -1950 1400 300 Weight 204.1 kg 204.1 kg Intake: Oral 500 1400 300 Output: Urine 2450 Other: Voiding Method Bedside Commode Bedside Commode Urinal Urinal # Voids 1 2 # Bowel Movements 0 - Exam Physical Exam: Revealed a 57-year-old white male, obese, in no distress, sitting in bed. Head: Atraumatic, normocephalic. HEENT:[Neck is supple.] [No neck masses.] [No thyromegaly.] [No JVD.] Chest: Diminished breath sounds at the bases, slightly more prominent crackles at the right lower base Cardiac Exam: [Normal S1 and S2, no S3 gallop, no murmur.] Abdomen: [Obese, Soft, nontender, no megaly, no rebound, no guarding, normal bowel sounds.] Extremities: [No clubbing, 2+ bipedal edema, no cyanosis.] Neurological Exam: [No focal neurologic deficit.] Psychiatric: Normal mood affect and mental status examination. Lymphatics: No lymphadenopathy. Skin: No rashes. - Labs CBC & Chem 7: 06/16/18 07:47 06/16/18 07:47 Labs: Abnormal Lab Results - Last 24 Hours (Table) 06/15/18 06/15/18 06/15/18 Range/Units 12:28 17:16 21:29 Sodium (137-145) mmol/L Chloride (98-107) mmol/L Carbon Dioxide (22-30) mmol/L BUN (9-20) mg/dL Glucose (74-99) mg/dL POC Glucose (mg/dL) 104 H 109 H 107 H (75-99) mg/dL AST (17-59) U/L Total Protein (6.3-8.2) g/dL 06/16/18 Range/Units 07:47 Sodium 134 L (137-145) mmol/L Chloride 87 L (98-107) mmol/L Carbon Dioxide 40 H* (22-30) mmol/L BUN 21 H (9-20) mg/dL Glucose 105 H (74-99) mg/dL POC Glucose (mg/dL) (75-99) mg/dL AST 13 L (17-59) U/L Total Protein 5.9 L (6.3-8.2) g/dL Microbiology - Last 24 Hours (Table) 07/15/18 19:29 Blood Culture - Preliminary Blood No Growth after 72 hours Assessment and Plan Plan: Assessment: 1 acute COPD exacerbation 2 acute on chronic hypoxic respiratory failure secondary to COPD 3 possible right lower lobe community-acquired pneumonia although I am more convinced that the findings are postinflammatory in nature, strongly doubt acute pneumonia. But would recommend empiric Rocephin and Zithromax. 4 multiple constitutional symptoms, and chronic weakness and fatigue, this may have to be investigated further, in the meantime I have recommended screening for myasthenia gravis, I have also ordered a sed rate, this may have to be further investigated on outpatient basis. What is concerning is the fact that the patient became disabled and profoundly weak since his hip surgery in 2010. And has been disabled since. ESR was 40, and this level is not concerning for polymyositis to explain the patient's limited mobility, and generalized weakness. Still awaiting the results of acetylcholine receptor binding antibody to rule out myasthenia gravis 5 morbid obesity, with history of gastric sleeve in 2013 6 history of deep vein thrombosis. And history of pulmonary embolism. 7 obstructive sleep apnea syndrome, maintained on CPAP/BiPAP. Recommendation: We'll continue current antibiotic coverage, patient is afebrile, cultures are negative. No worsening dyspnea, chest congestion. Increase activity as tolerated, patient seems to be more fatigued today, chest x-ray shows worsening of the right lower lobe density, could possibly be related to atelectasis, rather than worsening pneumonia. I performed a history & physical examination of the patient and discussed their management with my nurse practitioner, Sophia Martinez. I reviewed the nurse practitioner's note and agree with the documented findings and plan of care. Lung sounds are positive for diminished breath sounds with a few scattered crackles at the right lower base. The findings and the impression was discussed with the patient. I attest to the documentation by the nurse practitioner. Time with Patient: Less than 30
[2018-06-16 21:09] LABS: Glucose,Whole Blood 189 mg/dL (75-99)
[2018-06-16] MEDS: cefTRIAXone IN SWFI 1,000 MG/10 ML SYRINGE IVP SCH (21:11)
[2018-06-16] MEDS: VITAMIN E (DL,TOCOPHERYL ACET) 400 UNIT CAP PO SCH (21:12)
[2018-06-16] MEDS: AZITHROMYCIN 500 MG TAB PO SCH (21:12)
[2018-06-16] MEDS: OLANZapine 10 MG TAB PO SCH (21:12)
[2018-06-17] MEDS ORDERED: IPRATROPIUM-ALBUTEROL 3 ML NEB ONE
[2018-06-17 05:44] LABS: Basophils # (A) 0.1 k/uL (0-0.2); Basophils % (A) 1 %; Eosinophils # (A) 0.1 k/uL (0-0.7); Eosinophils % (A) 2 %; HCT 41.2 % (39.0-53.0); HGB 13.7 gm/dL (13.0-17.5); Lymphocytes # (A) 2.1 k/uL (1.0-4.8); Lymphocytes % (A) 21 %; MCH 29.3 pg (25.0-35.0); MCHC 33.3 g/dL (31.0-37.0); MCV 88.2 fL (80.0-100.0); Monocytes # (A) 0.6 k/uL (0-1.0); Monocytes % (A) 6 %; Neutrophils # (A) 6.6 k/uL (1.3-7.7); Neutrophils % (A) 69 %; Platelet Count 274 k/uL (150-450); RBC 4.67 m/uL (4.30-5.90); RDW 13.5 % (11.5-15.5); WBC 9.6 k/uL (3.8-10.6)
[2018-06-17 05:55] LABS: ALT 32 U/L (21-72); AST 16 U/L (17-59); Albumin 3.6 g/dL (3.5-5.0); Alkaline Phosphatase 79 U/L (38-126); Anion Gap 10 mmol/L; Blood Urea Nitrogen 19 mg/dL (9-20); Calcium 9.9 mg/dL (8.4-10.2); Carbon Dioxide 30 mmol/L (22-30); Chloride 93 mmol/L (98-107); Glucose 101 mg/dL (74-99); Sodium 133 mmol/L (137-145); Total Bilirubin 0.4 mg/dL (0.2-1.3); Total Protein 6.1 g/dL (6.3-8.2)
[2018-06-17] MEDS: SYMBICORT 160-4.5 MCG INHALER INHALATION SCH ×2 (08:36→21:13)
[2018-06-17] MEDS: IPRATROPIUM-ALBUTEROL 3 ML NEB INHALATION SCH ×6 (08:36→21:13)
[2018-06-17] MEDS: IPRATROPIUM-ALBUTEROL 3 ML NEB INHALATION PRN (08:36)
[2018-06-17] MEDS: GABAPENTIN 300 MG CAP PO SCH ×3 (10:23→22:07)
[2018-06-17] MEDS: lamoTRIgine 100 MG TAB PO SCH ×2 (10:24→22:06)
[2018-06-17] MEDS: PANTOPRAZOLE 40 MG TABLET PO SCH (10:24)
[2018-06-17] MEDS: buPROPion XL 150 MG TAB.ER.24H PO SCH (10:25)
[2018-06-17] MEDS: CILOSTAZOL 100 MG TAB PO SCH ×2 (10:25→22:06)
[2018-06-17] MEDS: ASPIRIN 81 MG PO SCH (10:25)
[2018-06-17] MEDS: SPIRONOLACTONE 25 MG TAB PO SCH ×2 (10:25→16:30)
[2018-06-17] MEDS: busPIRone HCl 10 MG TAB PO SCH ×2 (10:26→19:21)
[2018-06-17] MEDS: ATORVASTATIN 10 MG TAB PO SCH (10:26)
[2018-06-17] MEDS: POTASSIUM CHLORIDE ER 20 MEQ TAB.ER PO SCH ×3 (10:26→22:07)
[2018-06-17] MEDS: METOLAZONE 2.5 MG TAB PO SCH (10:26)
[2018-06-17] MEDS: ENOXAPARIN 40 MG/0.4 ML SYRINGE SQ SCH (10:27)
[2018-06-17] MEDS: FUROSEMIDE 40 MG TAB PO SCH (10:27)
[2018-06-17] MEDS: ALLOPURINOL 100 MG TAB PO SCH (10:31)
[2018-06-17] MEDS: ASCORBIC ACID 500 MG TAB PO SCH ×2 (10:31→22:05)
[2018-06-17] MEDS: MORPHINE SULFATE ER 60 MG TABLET PO SCH ×2 (10:36→19:22)
--- NOTE | 2018-06-17 11:55 | P.DS ---
Providers Date of admission: 06/12/18 21:53 Expected date of discharge: 06/17/18 Attending physician: Fernanda Wilson Consults: 06/12/18 21:50 Consult Physician Routine Consulting Provider: Ynes Hendrickson Consult Reason/Comments: COPD, SOB Do you want consulting provider notified?: Yes, Notify in am 06/14/18 10:18 Consult Physician Routine Consulting Provider: Anika Haney Consult Reason/Comments: increased weakness over the past 2 Do you want consulting provider notified?: Yes Primary care physician: [facility] [employer] [facility] Course: Discharge diagnosis 1. Acute exacerbation of chronic obstructive airway disease and possible community-acquired pneumonia. We'll continue Ceftin for 5 more days for possible pneumonia. Seen by pulmonary service felt likely more symptoms were related to atelectasis Patient does require home O2. Chest x-ray completed showing findings that may represent basilar atelectasis or scarring similar to prior exam. CTA of the chest completed showing no pulmonary embolism. EKG completed showing normal sinus rhythm, nonspecific intraventricular block. Dr. Snowden per pulmonary services has been consulted. Patient currently on DuoNeb treatments. Pulmonary services are following we'll continue bronchodilators and antibiotics of Zithromax and Rocephin. Chest x-ray completed this morning. Showing borderline cardiomegaly and pulmonary arterial hypertension. Hypoventilatory changes and increasing patchy right basilar opacity, possible pneumonia given the CT appearance. Pulmonary service is following. 2. Bilateral lower extremity edema. Venous Doppler completed of lower extremities, limited exam due to body habitus did show no evident deep vein thrombosis at or above the knees. 3. History of asthma 4. History of deep vein thrombosis and pulmonary embolism. 5. History of schizoaffective disorder and panic disorder. Home medications of Buspar, Wellbutrin and Zyprexa. Patient also states he takes Lamictal for his panic disorder. 6. History of hyperlipidemia. Continue home Lipitor. 7. History of alcoholism. Patient states he is 5 years sober 8. Chronic pain of lower back. Patient's home medication of MS Contin 60 mg and 120mg ordered. 9. History of gout. Continue home Allopurinol 10. Increased weakness since 2015. Patient states that he has slowly become less mobile over the past 2 years. Sed rate is 40. Physical Therapy has been consulted. Neurology has been consulted. Per neurology weakness believes to be caused from his orthopedic issues and obese habitus. Possible peripheral neuropathy but further evaluation can be done outpatient with EMG testing. 11. Chronic hypoxic respiratory failure on home O2 Hospital course This is a 57-year-old patient of Dr. Hinds. Patient presented to the emergency department with complaints of increasing shortness of breath throughout the week and feeling more fatigued. Patient stated that he was making his dinner when he became very lightheaded and had to sit down. Patient does state that he wears oxygen intermittently at home but has required it more over the past few days. Patient has a significant history for asthma, COPD, DVT , GERD, GI bleed- rt to polyps in the past, skin CA, hyperlipidemia, OA, PE, chronic pain and hiatal hernia. D-dimer on admission 0.74. CTA was completed and showed no pulmonary embolism, right lower lobe and early right upper lobe infiltrate. Chest x-ray completed. Findings may represent basilar atelectasis or scarring similar to prior exam. Patient also presented with significant lower extremity edema. Ultrasound of the lower extremities were ordered. Limited exam due to body habitus but did show no evidence of DVT at or above the knees. EKG showing normal sinus rhythm, nonspecific intraventricular block. Patient received Zithromax and Rocephin, along with solumedrol in the emergency room. Patient also started on DuoNeb breathing treatments. Dr. Snowden per pulmonary services have been consulted. Blood cell 14.4 and admission, blood culture has been ordered. This time patient is on nasal cannula 2 L. Denies chest pain. Does state shortness of breath has improved from admission. Patient denies nausea vomiting or diarrhea. Patient denies burning or frequency with urination. On 06/14/2018. Patient currently resting in bed. Does complain that he is more anxious due to the timing of his BuSpar and MS Contin being different from home. Discussed with nurse and pharmacist and will time accordingly to when patient takes the medications at home. Patient denies chest pain or shortness of breath at this time. 2-D echo had been ordered by pulmonary care services. EF between 55 and 60%. On 06/15/2018 patient currently resting in bed post working with physical therapy. Patient states he is feeling better today than he did yesterday. Currently on nasal cannula at 4 L. Neurology has been consulted for increased weakness over the past couple years. Patient denies chest pain or shortness of breath at this time denies nausea vomiting or diarrhea. On 06/16/2018 patient currently resting in bed stating he is tired from all the activity of yesterday with physical therapy. Currently on his canal 2 L. CO2 elevated at 40. Chest x-ray completed yesterday showing borderline cardiomegaly and pulmonary arterial hypertension. Hypoventilatory changes and increasing patchy right basilar opacities, possible pneumonia given the CT appearance. Pulmonary following closely. Patient remains on Rocephin and Zithromax for antibiotics. Patient contemplating possible discharge to [facility]. Case management and social work consulted. Denies chest pain or shortness of breath at this time. Denies nausea. Denies any urinary burning or frequency. 06/17/2018 patient's cough and shortness of breath have improved. Likely symptoms were related to his COPD exacerbation and possible underlying pneumonia versus atelectasis. We'll continue nebulizer treatments and Ceftin for 5 more days. Patient also seen by neurology during this admission due to increasing weakness over the last couple years. Again as stated above related to patient's orthopedic issues and obese habitus. They are recommending EMG outpatient. While patient follow-up with neurology and pulmonary service outpatient. He'll be discharged to [facility] today. Dr. Wilson will follow him at [facility] Also note that patient had complain of upper shoulder jaw and throat discomfort during this admission. Troponins were checked and were negative 3 sets. Cardiology consult was placed. However, patient is refusing cardiology evaluation. Therefore consult will be canceled and patient will proceed with a discharged to [facility]. Dr. Wilson discussed thoroughly the reason for the cardiology evaluation and consult. Patient reports complete understanding but felt that that it was unnecessary and wants to be discharged Also note that the Acetylchol Recept Bind Ab ordered by Dr. Whittington is still pending. These results can be followed up outpatient Patient is stable to be discharged to [facility] I performed an examination of the patient and discussed their management with the physician Rn Eligibility. I have reviewed the Physician Rn Eligibility's notes and agree with the documented findings and plan of care I performed an examination of the patient and discussed their management with the physician Rn Eligibility. I have reviewed the Physician Rn Eligibility's notes and agree with the documented findings and plan of care Patient Condition at Discharge: Stable Plan - Discharge Summary New Discharge Prescriptions: New Budesonide-Formot 160-4.5 Mcg [Symbicort 160-4.5 Mcg Inhaler] 2 puff INHALATION RT-BID puff Cefuroxime Axetil [Ceftin] 500 mg PO BID #10 tab Ipratropium-Albuterol Nebulize [Duoneb 0.5 mg-3 mg/3 ml Soln] 3 ml INHALATION RT-Q4H ampul.neb Ipratropium-Albuterol Nebulize [Duoneb 0.5 mg-3 mg/3 ml Soln] 3 ml INHALATION RT-Q4H PRN ampul.neb PRN Reason: Shortness Of Breath Or Wheezing Morphine Sulfate ER [Ms Contin] 120 mg PO 0700 #3 tablet Morphine Sulfate ER [Ms Contin] 60 mg PO 1900 #3 tablet Continue Potassium Chloride [Klor-Con 20] 20 meq PO TID Furosemide [Lasix] 40 mg PO DAILY Aspirin 81 mg PO DAILY OLANZapine [ZyPREXA] 20 mg PO HS lamoTRIgine 150 mg PO BID Omeprazole [PriLOSEC] 20 mg PO AC-BRKFST Ergocalciferol [Vitamin D2 (DRISDOL)] 50,000 unit PO WESA Vitamin E 1,000 unit PO HS Atorvastatin [Lipitor] 10 mg PO DAILY Metolazone [Zaroxolyn] 2.5 mg PO DAILY Spironolactone [Aldactone] 25 mg PO BID #60 tab busPIRone HCL 10 mg PO BID Cilostazol [Pletal] 100 mg PO BID Gabapentin 600 mg PO TID buPROPion XL [Wellbutrin XL] 150 mg PO DAILY Febuxostat [Uloric] 80 mg PO DAILY Ascorbic Acid [Vitamin C] 1,000 mg PO BID Discontinued Morphine Sulfate [Morphine Sulfate ER] 60 mg PO W/SUPPER Morphine Sulfate [Morphine Sulfate ER] 120 mg PO QAM Discharge Medication List Aspirin 81 mg PO DAILY 09/13/14 [History] Furosemide [Lasix] 40 mg PO DAILY 09/13/14 [History] Potassium Chloride [Klor-Con 20] 20 meq PO TID 09/13/14 [History] Ergocalciferol [Vitamin D2 (DRISDOL)] 50,000 unit PO WESA 09/03/15 [History] OLANZapine [ZyPREXA] 20 mg PO HS 09/03/15 [History] Omeprazole [PriLOSEC] 20 mg PO AC-BRKFST 09/03/15 [History] Vitamin E 1,000 unit PO HS 09/03/15 [History] lamoTRIgine 150 mg PO BID 09/03/15 [History] Atorvastatin [Lipitor] 10 mg PO DAILY 06/09/16 [History] Metolazone [Zaroxolyn] 2.5 mg PO DAILY 06/17/16 [History] Spironolactone [Aldactone] 25 mg PO BID #60 tab 10/12/16 [Rx] Cilostazol [Pletal] 100 mg PO BID 06/12/18 [History] busPIRone HCL 10 mg PO BID 06/12/18 [History] Ascorbic Acid [Vitamin C] 1,000 mg PO BID 06/13/18 [History] Febuxostat [Uloric] 80 mg PO DAILY 06/13/18 [History] Gabapentin 600 mg PO TID 06/13/18 [History] buPROPion XL [Wellbutrin XL] 150 mg PO DAILY 06/13/18 [History] Budesonide-Formot 160-4.5 Mcg [Symbicort 160-4.5 Mcg Inhaler] 2 puff INHALATION RT-BID puff 06/17/18 [Rx] Cefuroxime Axetil [Ceftin] 500 mg PO BID #10 tab 06/17/18 [Rx] Ipratropium-Albuterol Nebulize [Duoneb 0.5 mg-3 mg/3 ml Soln] 3 ml INHALATION RT -Q4H ampul.neb 06/17/18 [Rx] Ipratropium-Albuterol Nebulize [Duoneb 0.5 mg-3 mg/3 ml Soln] 3 ml INHALATION RT -Q4H PRN ampul.neb 06/17/18 [Rx] Morphine Sulfate ER [Ms Contin] 60 mg PO 1900 #3 tablet 06/17/18 [Rx] Morphine Sulfate ER [Ms Contin] 120 mg PO 0700 #3 tablet 06/17/18 [Rx] Follow up Appointment(s)/Referral(s): Yokasta Hinds DO [Primary Care Provider] - 1 Week Jay Whittington MD [STAFF PHYSICIAN] - 1 Week Activity/Diet/Wound Care/Special Instructions: Diet: cardiac, Activity: as tolerated Transfer patient to [facility]. Dr. Wilson will follow at [facility] Discharge Disposition: TRANSFER TO SNF/ECF
--- NOTE | 2018-06-17 12:03 | P.PN ---
Subjective Progress Note Date: 06/17/18 Principal diagnosis: Acute COPD exacerbation, possible right lower lobe community-acquired pneumonia This is a 57-year-old white male with history of COPD, morbid obesity, had previous hip surgery in 2010, and since then the patient has been disabled. Patient has been using a walker and he is generally weak, he has history of severe chronic pain syndrome on very high doses of morphine for his pain control. Patient presented to the ER with a few days' history of increased shortness of breath, extreme fatigue, weakness, occasional chills, and as he was trying to walk a few steps at home to prepare some food, he became extremely lightheaded and short of breath. Denies any cough, and he denies any chest pain. Patient called EMS, and he was brought into the ER. Chest x-ray showed minimal atelectasis at the right lower lobe, it is no different from an old chest x-ray done in 2017. CT of the chest questioned the possibility of right lower lobe pneumonia although the findings could be postinflammatory in nature. Patient was admitted and this consult was initiated. Again the patient has no clear-cut symptoms to suggest active pneumonia, but his CT of the chest is warm and some for possible right lower lobe pneumonia. Patient denies any headache, no blurred vision, he does have lightheadedness shortness of breath with any activity, CT angiogram ruled out pulmonary embolism. Patient describes profound weakness which has been progressively getting worse since 2010. Patient is on disability since then. 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 After his hip surgery patient became disabled and required significant amount of pain medicine to control his pain. He lives by himself, does not drink any alcohol and he does not smoke anymore. Used to be a smoker until 20 years ago. On 06/14/2018 patient seen in follow-up on medical surgical floor. Reports feeling better today, breathing easier, mucin 4 L per nasal cannula with pulse ox of 95%, afebrile, vital signs are stable. Occasional nonproductive cough, patient is being treated with empiric antibiotics in the form of Rocephin and Zithromax for a possibility of a right lower lobe pneumonia, today's labs were reviewed, WBC is 13.6, hemoglobin is 13.9, sodium is 133, potassium is 3.6, CO2 is 39, BUN is 24, creatinine 0.94. He is receiving oral diuretics, and there has been improvement in the appearance of bilateral lower extremity edema. He is maintaining negative fluid balance, he is -2100 over the last 24 hours. His sed rate today was 40, and this finding is not indicative of polymyositis to explain patient's limited mobility. Acetylcholine receptor binding antibody was ordered yesterday, the results are not available. On 06/15/2018 patient seen in follow-up on medical surgical floor. Continues to improve, although still has some dyspnea with exertion, and still not able to produce much sputum. His cough is dry, noncongested. Lung sounds are positive for right lower lobe crackles, diminished breath sounds overall, no wheezing appreciated. No fever no chills, remains on 4 L per nasal cannula with a pulse ox of 100%, vital signs are stable. Remains on oral diuretics, bilateral lower extremity edema is improving. Generalized weakness is improving as well, and the patient was able to walk with a walker in the room today, and tolerated activity fairly well. -1250 ML fluid balance. On 06/16/2018 patient seen in follow-up on medical surgical floor. Today's chest x-ray shows an increased density in the right lower lobe, possibly developing infiltrate versus atelectasis. Patient's feeling fatigued today, he thinks he may have overdone it yesterday. He is resting in bed, has a nonproductive cough, still has a tightening ache in his chest with coughing. Afebrile, pulse ox on 2 L per nasal cannula is 98%. On sounds are positive for right posterior lower lobe crackles. He continues to diurese, knees and -550 ML fluid balance over the last 24 hours. Blood cultures are negative. Remains on empiric antibiotics. On 06/17/2018 patient seen again in follow-up on medical surgical floor. No acute distress, vital signs are stable, room air pulse ox is 90%, he is afebrile , no fever no chills. Microbiology remains negative, patient has been treated with empiric antibiotics, for a possibility of community-acquired pneumonia, in the right lower lobe. No chest pain today, he states he had some chest tightness with coughing, would only last a few seconds, however that's improved. In -1010 mL fluid balance. Remains on oral diuretics. From pulmonary standpoint patient is cleared for discharge to subacute rehab today Objective - Vital Signs Vital signs: Vital Signs Temp 99.1 F 06/17/18 07:00 Pulse 84 06/17/18 08:45 Resp 16 06/17/18 07:00 BP 115/56 06/17/18 07:00 Pulse Ox 90 L 06/17/18 07:00 Intake & Output 06/16/18 06/17/18 06/17/18 18:59 06:59 18:59 Intake Total 650 1840 200 Output Total 1600 1900 Balance -950 -60 200 Weight 204.1 kg Intake: Oral 650 1840 200 Output: Urine 1600 1900 Other: Voiding Method Bedside Commode Urinal Urinal - Exam Physical Exam: Revealed a 57-year-old white male, obese, in no distress, sitting in bed. Head: Atraumatic, normocephalic. HEENT:[Neck is supple.] [No neck masses.] [No thyromegaly.] [No JVD.] Chest: Diminished breath sounds at the bases, a few crackles at the right lower base Cardiac Exam: [Normal S1 and S2, no S3 gallop, no murmur.] Abdomen: [Obese, Soft, nontender, no megaly, no rebound, no guarding, normal bowel sounds.] Extremities: [No clubbing, 2+ bipedal edema, no cyanosis.] Neurological Exam: [No focal neurologic deficit.] Psychiatric: Normal mood affect and mental status examination. Lymphatics: No lymphadenopathy. Skin: No rashes. - Labs CBC & Chem 7: 06/17/18 05:19 06/17/18 05:19 Labs: Abnormal Lab Results - Last 24 Hours (Table) 06/16/18 06/17/18 Range/Units 21:00 05:19 Sodium 133 L (137-145) mmol/L Chloride 93 L (98-107) mmol/L Glucose 101 H (74-99) mg/dL POC Glucose (mg/dL) 189 H (75-99) mg/dL AST 16 L (17-59) U/L Total Protein 6.1 L (6.3-8.2) g/dL Microbiology - Last 24 Hours (Table) 06/12/18 19:29 Blood Culture - Preliminary Blood No Growth after 96 hours Assessment and Plan Plan: Assessment: 1 acute COPD exacerbation 2 acute on chronic hypoxic respiratory failure secondary to COPD 3 possible right lower lobe community-acquired pneumonia although I am more convinced that the findings are postinflammatory in nature, strongly doubt acute pneumonia. But would recommend empiric Rocephin and Zithromax. 4 multiple constitutional symptoms, and chronic weakness and fatigue, this may have to be investigated further, in the meantime I have recommended screening for myasthenia gravis, I have also ordered a sed rate, this may have to be further investigated on outpatient basis. What is concerning is the fact that the patient became disabled and profoundly weak since his hip surgery in 2010. And has been disabled since. ESR was 40, and this level is not concerning for polymyositis to explain the patient's limited mobility, and generalized weakness. Still awaiting the results of acetylcholine receptor binding antibody to rule out myasthenia gravis 5 morbid obesity, with history of gastric sleeve in 2013 6 history of deep vein thrombosis. And history of pulmonary embolism. 7 obstructive sleep apnea syndrome, maintained on CPAP/BiPAP. Recommendation: Patient remains stable, breathing is improved, no wheezing, no chest congestion , he is on room air, with a pulse ox of 90%. No chest wall tenderness, no fever no chills, no phlegm production. From pulmonary standpoint patient is stable for discharge to the subacute rehab today. Follow-up with Dr. Zhang in one week. I performed a history & physical examination of the patient and discussed their management with my nurse practitioner, Sophia Martinez. I reviewed the nurse practitioner's note and agree with the documented findings and plan of care. Lung sounds are positive for diminished breath sounds with a few scattered crackles at the right lower base. The findings and the impression was discussed with the patient. I attest to the documentation by the nurse practitioner. Time with Patient: Less than 30
--- NOTE | 2018-06-17 12:14 | CONS ---
CONSULTATION Mr. Donavon Saha is a 57-year-old male patient who was complaining of epigastric and chest discomfort after he tried to lift himself up in the bed. He is being treated for COPD exacerbation and right lower lobe community-acquired pneumonia. At this time, he complains of pain in the chest when he takes a deep breath and feels that he pulled himself up to prop himself and in the process strained his chest wall. Cardiac enzyme is normal. A 2D echo shows normal LV size and systolic function. PAST MEDICAL HISTORY: Morbid obesity, currently being treated with acute COPD exacerbation, history of DVT, dyslipidemia, pulmonary embolism, sleep apnea. PAST SURGICAL HISTORY: Appendectomy, bariatric surgery, cardiac catheterization, orthopedic surgery. SOCIAL HISTORY: He was a former smoker. Quit smoking in 1998. MEDICATION LIST: Was reviewed and his home medications include aspirin, Lasix, potassium, Lipitor, metolazone, spironolactone, gabapentin, and Wellbutrin. ALLERGIES: CODEINE, ZOSYN and TAZOBACTAM. Blood pressure 120/72 mmHg, pulse rate in the 70s, respirations normal, breath sounds are reduced bilaterally with no rhonchus breath sounds bilaterally. Heart sounds S1, S2 normal. His chest wall is tender. Abdomen is soft. IMPRESSION: 1. A atypical chest discomfort with no evidence for myocardial injury. 2. Three cardiac enzymes are normal with normal 2D echo. Suggest continue management for chronic obstructive pulmonary disease exacerbation. Thank you for the consultation. Please call us as needed. MMODL / IJN: [id number] /
[2018-06-17 21:17] LABS: Glucose,Whole Blood 123 mg/dL (75-99)
[2018-06-17] MEDS: AZITHROMYCIN 500 MG TAB PO SCH (22:05)
[2018-06-17] MEDS: cefTRIAXone IN SWFI 1,000 MG/10 ML SYRINGE IVP SCH (22:05)
[2018-06-17] MEDS: VITAMIN E (DL,TOCOPHERYL ACET) 400 UNIT CAP PO SCH (22:06)
[2018-06-17] MEDS: OLANZapine 10 MG TAB PO SCH (22:06)
[2018-06-18] MEDS: IPRATROPIUM-ALBUTEROL 3 ML NEB INHALATION SCH ×5 (00:01→15:50)
[2018-06-18] MEDS: busPIRone HCl 10 MG TAB PO SCH (06:32)
[2018-06-18] MEDS: MORPHINE SULFATE ER 60 MG TABLET PO SCH (06:32)
[2018-06-18 08:05] LABS: Glucose,Whole Blood 100 mg/dL (75-99)
[2018-06-18 08:19] VITALS: BP 119/65; RESP 16; TEMP 97.7
[2018-06-18 08:28] LABS: Basophils % (A) 0 %; Eosinophils # (A) 0.2 k/uL (0-0.7); Eosinophils % (A) 2 %; HGB 13.1 gm/dL (13.0-17.5); Lymphocytes % (A) 22 %; MCHC 32.8 g/dL (31.0-37.0); MCV 85.5 fL (80.0-100.0); Mean Platelet Volume 6.3; Monocytes # (A) 0.6 k/uL (0-1.0); Monocytes % (A) 6 %; Neutrophils # (A) 6.1 k/uL (1.3-7.7); Neutrophils % (A) 68 %; Platelet Count 296 k/uL (150-450); RBC 4.68 m/uL (4.30-5.90); RDW 13.4 % (11.5-15.5); WBC 8.9 k/uL (3.8-10.6)
[2018-06-18] MEDS: SYMBICORT 160-4.5 MCG INHALER INHALATION SCH (08:33)
[2018-06-18] MEDS: POTASSIUM CHLORIDE ER 20 MEQ TAB.ER PO SCH (09:54)
[2018-06-18] MEDS: ATORVASTATIN 10 MG TAB PO SCH (09:54)
[2018-06-18] MEDS: GABAPENTIN 300 MG CAP PO SCH (09:54)
[2018-06-18] MEDS: ERGOCALCIFEROL 50,000 UNIT CAP PO SCH (09:55)
[2018-06-18] MEDS: lamoTRIgine 100 MG TAB PO SCH (09:55)
[2018-06-18] MEDS: SPIRONOLACTONE 25 MG TAB PO SCH (09:55)
[2018-06-18] MEDS: FUROSEMIDE 40 MG TAB PO SCH (09:55)
[2018-06-18] MEDS: ALLOPURINOL 100 MG TAB PO SCH (09:55)
[2018-06-18] MEDS: ASCORBIC ACID 500 MG TAB PO SCH (09:55)
[2018-06-18] MEDS: PANTOPRAZOLE 40 MG TABLET PO SCH (09:55)
[2018-06-18] MEDS: ENOXAPARIN 40 MG/0.4 ML SYRINGE SQ SCH (09:56)
[2018-06-18] MEDS: buPROPion XL 150 MG TAB.ER.24H PO SCH (09:56)
[2018-06-18] MEDS: ASPIRIN 81 MG PO SCH (09:56)
[2018-06-18] MEDS: METOLAZONE 2.5 MG TAB PO SCH (09:56)
[2018-06-18] MEDS: CILOSTAZOL 100 MG TAB PO SCH (09:56)
[2018-06-18 12:20] VITALS: PULSE 88
--- NOTE | 2018-06-18 12:39 | P.PN ---
Subjective Progress Note Date: 06/18/18 This is a 57-year-old patient of Dr. Hinds. Patient presented to the emergency department with complaints of increasing shortness of breath throughout the week and feeling more fatigued. Patient stated that he was making his dinner when he became very lightheaded and had to sit down. Patient does state that he wears oxygen intermittently at home but has required it more over the past few days. Patient has a significant history for asthma, COPD, DVT , GERD, GI bleed- rt to polyps in the past, skin CA, hyperlipidemia, OA, PE, chronic pain and hiatal hernia. D-dimer on admission 0.74. CTA was completed and showed no pulmonary embolism, right lower lobe and early right upper lobe infiltrate. Chest x-ray completed. Findings may represent basilar atelectasis or scarring similar to prior exam. Patient also presented with significant lower extremity edema. Ultrasound of the lower extremities were ordered. Limited exam due to body habitus but did show no evidence of DVT at or above the knees. EKG showing normal sinus rhythm, nonspecific intraventricular block. Patient received Zithromax and Rocephin, along with solumedrol in the emergency room. Patient also started on DuoNeb breathing treatments. Dr. Snowden per pulmonary services have been consulted. Blood cell 14.4 and admission, blood culture has been ordered. This time patient is on nasal cannula 2 L. Denies chest pain. Does state shortness of breath has improved from admission. Patient denies nausea vomiting or diarrhea. Patient denies burning or frequency with urination. On 06/14/2018. Patient currently resting in bed. Does complain that he is more anxious due to the timing of his BuSpar and MS Contin being different from home. Discussed with nurse and pharmacist and will time accordingly to when patient takes the medications at home. Patient denies chest pain or shortness of breath at this time. 2-D echo had been ordered by pulmonary care services. EF between 55 and 60%. On 06/15/2018 patient currently resting in bed post working with physical therapy. Patient states he is feeling better today than he did yesterday. Currently on nasal cannula at 4 L. Neurology has been consulted for increased weakness over the past couple years. Patient denies chest pain or shortness of breath at this time denies nausea vomiting or diarrhea. On 06/16/2018 patient currently resting in bed stating he is tired from all the activity of yesterday with physical therapy. Currently on his canal 2 L. CO2 elevated at 40. Chest x-ray completed yesterday showing borderline cardiomegaly and pulmonary arterial hypertension. Hypoventilatory changes and increasing patchy right basilar opacities, possible pneumonia given the CT appearance. Pulmonary following closely. Patient remains on Rocephin and Zithromax for antibiotics. Patient contemplating possible discharge to [facility] facility [facility]. Case management and social work consulted. Denies chest pain or shortness of breath at this time. Denies nausea. Denies any urinary burning or frequency. 06/17/2018 patient's cough and shortness of breath have improved. Likely symptoms were related to his COPD exacerbation and possible underlying pneumonia versus atelectasis. We'll continue nebulizer treatments and Ceftin for 5 more days. Patient also seen by neurology during this admission due to increasing weakness over the last couple years. Again as stated above related to patient's orthopedic issues and obese habitus. They are recommending EMG outpatient. While patient follow-up with neurology and pulmonary service outpatient. He'll be discharged to [facility] today. Dr. Wilson will follow him at [facility] Also note that patient had complain of upper shoulder jaw and throat discomfort during this admission. Troponins were checked and were negative 3 sets. Cardiology consult was placed. However, patient is refusing cardiology evaluation. Therefore consult will be canceled and patient will proceed with a discharged to [facility]. Dr. Wilson discussed thoroughly the reason for the cardiology evaluation and consult. Patient reports complete understanding but felt that that it was unnecessary and wants to be discharged Also note that the Acetylchol Recept Bind Ab ordered by Dr. Whittington is still pending. These results can be followed up outpatient Patient is stable to be discharged to [facility] On 06/18/2018 patient is resting comfortably in bed and awaiting discharge to [facility]. Cardiology consulted. Believes chest pain to be atypical with no evidence of myocardial injury and 3 cardiac enzymes are normal with a normal 2- D echo. Awaiting proper bed to be present at [facility] for discharge Objective - Vital Signs Vital signs: Vital Signs Temp 97.7 F 06/18/18 07:00 Pulse 88 06/18/18 12:20 Resp 16 06/18/18 07:00 BP 119/65 06/18/18 07:00 Pulse Ox 94 L 06/18/18 07:00 Intake & Output 06/17/18 06/18/18 06/18/18 18:59 06:59 18:59 Intake Total 200 2050 Output Total 4000 2300 Balance -3800 -250 Weight 204.1 kg Intake: Oral 200 2050 Output: Urine 4000 2300 Other: Voiding Method Urinal # Bowel Movements 1 - Exam Head normocephalic Neck supple Lungs clear to auscultation bilaterally no wheezing or crackles Heart regular rate and rhythm S1-S2, no rub or gallop Abdomen is soft obese positive bowel sounds no hepatosplenomegaly Extremities no edema, +2 CHAYO lower extremity edema Neuro alert and orientated to 3 - Labs CBC & Chem 7: 06/18/18 07:39 06/17/18 05:19 Labs: Abnormal Lab Results - Last 24 Hours (Table) 06/17/18 06/18/18 Range/Units 21:13 07:45 POC Glucose (mg/dL) 123 H 100 H (75-99) mg/dL Microbiology - Last 24 Hours (Table) 06/12/18 19:29 Blood Culture - Preliminary Blood No Growth after 120 hours Assessment and Plan Assessment: 1. Acute exacerbation of chronic obstructive airway disease and possible community-acquired pneumonia. We'll continue Ceftin for 5 more days for possible pneumonia. Seen by pulmonary service felt likely more symptoms were related to atelectasis Patient does require home O2. Chest x-ray completed showing findings that may represent basilar atelectasis or scarring similar to prior exam. CTA of the chest completed showing no pulmonary embolism. EKG completed showing normal sinus rhythm, nonspecific intraventricular block. Dr. Snowden per pulmonary services has been consulted. Patient currently on DuoNeb treatments. Pulmonary services are following we'll continue bronchodilators and antibiotics of Zithromax and Rocephin. Chest x-ray completed this morning. Showing borderline cardiomegaly and pulmonary arterial hypertension. Hypoventilatory changes and increasing patchy right basilar opacity, possible pneumonia given the CT appearance. Pulmonary service is following. 2. Bilateral lower extremity edema. Venous Doppler completed of lower extremities, limited exam due to body habitus did show no evident deep vein thrombosis at or above the knees. 3. History of asthma 4. History of deep vein thrombosis and pulmonary embolism. 5. History of schizoaffective disorder and panic disorder. Home medications of Buspar, Wellbutrin and Zyprexa. Patient also states he takes Lamictal for his panic disorder. 6. History of hyperlipidemia. Continue home Lipitor. 7. History of alcoholism. Patient states he is 5 years sober 8. Chronic pain of lower back. Patient's home medication of MS Contin 60 mg and 120mg ordered. 9. History of gout. Continue home Allopurinol 10. Increased weakness since 2015. Patient states that he has slowly become less mobile over the past 2 years. Sed rate is 40. Physical Therapy has been consulted. Neurology has been consulted. Per neurology weakness believes to be caused from his orthopedic issues and obese habitus. Possible peripheral neuropathy but further evaluation can be done outpatient with EMG testing. 11. Chronic hypoxic respiratory failure on home O2 12. Patient was complaining of chest pressure along with Jaw pain. Troponins ordered and were negative. Cardiology was consulted per cardiology was to be atypical chest pain no evidence of myocardial infarction. Awaiting discharge to [facility] I performed an examination of the patient and discussed their management with the Nurse Practitioner. I have reviewed the Nurse Practitioner's notes and agree with the documented findings and plan of care
--- NOTE | 2018-06-18 14:34 | P.PN ---
Subjective Progress Note Date: 06/18/18 Principal diagnosis: Acute exacerbation of chronic obstructive pulmonary disease complicated by a right lower lobe community-acquired pneumonia. This is a 57-year-old white male with history of COPD, morbid obesity, had previous hip surgery in 2010, and since then the patient has been disabled. Patient has been using a walker and he is generally weak, he has history of severe chronic pain syndrome on very high doses of morphine for his pain control. Patient presented to the ER with a few days' history of increased shortness of breath, extreme fatigue, weakness, occasional chills, and as he was trying to walk a few steps at home to prepare some food, he became extremely lightheaded and short of breath. Denies any cough, and he denies any chest pain. Patient called EMS, and he was brought into the ER. Chest x-ray showed minimal atelectasis at the right lower lobe, it is no different from an old chest x-ray done in 2017. CT of the chest questioned the possibility of right lower lobe pneumonia although the findings could be postinflammatory in nature. Patient was admitted and this consult was initiated. Again the patient has no clear-cut symptoms to suggest active pneumonia, but his CT of the chest is warm and some for possible right lower lobe pneumonia. Patient denies any headache, no blurred vision, he does have lightheadedness shortness of breath with any activity, CT angiogram ruled out pulmonary embolism. Patient describes profound weakness which has been progressively getting worse since 2010. Patient is on disability since then. 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 After his hip surgery patient became disabled and required significant amount of pain medicine to control his pain. He lives by himself, does not drink any alcohol and he does not smoke anymore. Used to be a smoker until 20 years ago. On 06/14/2018 patient seen in follow-up on medical surgical floor. Reports feeling better today, breathing easier, mucin 4 L per nasal cannula with pulse ox of 95%, afebrile, vital signs are stable. Occasional nonproductive cough, patient is being treated with empiric antibiotics in the form of Rocephin and Zithromax for a possibility of a right lower lobe pneumonia, today's labs were reviewed, WBC is 13.6, hemoglobin is 13.9, sodium is 133, potassium is 3.6, CO2 is 39, BUN is 24, creatinine 0.94. He is receiving oral diuretics, and there has been improvement in the appearance of bilateral lower extremity edema. He is maintaining negative fluid balance, he is -2100 over the last 24 hours. His sed rate today was 40, and this finding is not indicative of polymyositis to explain patient's limited mobility. Acetylcholine receptor binding antibody was ordered yesterday, the results are not available. On 06/15/2018 patient seen in follow-up on medical surgical floor. Continues to improve, although still has some dyspnea with exertion, and still not able to produce much sputum. His cough is dry, noncongested. Lung sounds are positive for right lower lobe crackles, diminished breath sounds overall, no wheezing appreciated. No fever no chills, remains on 4 L per nasal cannula with a pulse ox of 100%, vital signs are stable. Remains on oral diuretics, bilateral lower extremity edema is improving. Generalized weakness is improving as well, and the patient was able to walk with a walker in the room today, and tolerated activity fairly well. -1250 ML fluid balance. On 06/16/2018 patient seen in follow-up on medical surgical floor. Today's chest x-ray shows an increased density in the right lower lobe, possibly developing infiltrate versus atelectasis. Patient's feeling fatigued today, he thinks he may have overdone it yesterday. He is resting in bed, has a nonproductive cough, still has a tightening ache in his chest with coughing. Afebrile, pulse ox on 2 L per nasal cannula is 98%. On sounds are positive for right posterior lower lobe crackles. He continues to diurese, knees and -550 ML fluid balance over the last 24 hours. Blood cultures are negative. Remains on empiric antibiotics. On 06/17/2018 patient seen again in follow-up on medical surgical floor. No acute distress, vital signs are stable, room air pulse ox is 90%, he is afebrile , no fever no chills. Microbiology remains negative, patient has been treated with empiric antibiotics, for a possibility of community-acquired pneumonia, in the right lower lobe. No chest pain today, he states he had some chest tightness with coughing, would only last a few seconds, however that's improved. In -1010 mL fluid balance. Remains on oral diuretics. From pulmonary standpoint patient is cleared for discharge to subacute rehab today. The patient is seen again today 06/18/2018 in follow-up on the regular medical floor. He is awake and alert in no acute distress. He is resting comfortably in bed. He denies any worsening shortness of breath, cough or congestion. No chills or night sweats. Back to his baseline. Maintaining good O2 saturations in the 90s on room air. He is afebrile. Hemodynamically stable. Blood cultures reveal no growth. White count 8.9. Hemoglobin 13.1. Objective - Vital Signs Vital signs: Vital Signs Temp 97.7 F 06/18/18 07:00 Pulse 88 06/18/18 12:20 Resp 16 06/18/18 07:00 BP 119/65 06/18/18 07:00 Pulse Ox 94 L 06/18/18 07:00 Intake & Output 06/17/18 06/18/18 06/18/18 18:59 06:59 18:59 Intake Total 200 2050 500 Output Total 4000 2300 Balance -3800 -250 500 Weight 204.1 kg Intake: Oral 200 2050 500 Output: Urine 4000 2300 Other: Voiding Method Urinal # Bowel Movements 1 - Exam Physical Exam: Revealed a 57-year-old white male, obese, in no distress, sitting in bed. Head: Atraumatic, normocephalic. HEENT:[Neck is supple.] [No neck masses.] [No thyromegaly.] [No JVD.] Chest: Diminished breath sounds at the bases, a few crackles at the right lower base Cardiac Exam: [Normal S1 and S2, no S3 gallop, no murmur.] Abdomen: [Obese, Soft, nontender, no megaly, no rebound, no guarding, normal bowel sounds.] Extremities: [No clubbing, 2+ bipedal edema, no cyanosis.] Neurological Exam: [No focal neurologic deficit.] Psychiatric: Normal mood affect and mental status examination. Lymphatics: No lymphadenopathy. Skin: No rashes. - Labs CBC & Chem 7: 06/18/18 07:39 06/17/18 05:19 Labs: Abnormal Lab Results - Last 24 Hours (Table) 06/17/18 06/18/18 Range/Units 21:13 07:45 POC Glucose (mg/dL) 123 H 100 H (75-99) mg/dL Microbiology - Last 24 Hours (Table) 06/12/18 19:29 Blood Culture - Preliminary Blood No Growth after 120 hours Assessment and Plan Assessment: Assessment: 1 acute COPD exacerbation 2 acute on chronic hypoxic respiratory failure secondary to COPD 3 possible right lower lobe community-acquired pneumonia although I am more convinced that the findings are postinflammatory in nature, strongly doubt acute pneumonia. But would recommend empiric Rocephin and Zithromax. 4 multiple constitutional symptoms, and chronic weakness and fatigue, this may have to be investigated further, in the meantime I have recommended screening for myasthenia gravis, I have also ordered a sed rate, this may have to be further investigated on outpatient basis. What is concerning is the fact that the patient became disabled and profoundly weak since his hip surgery in 2010. And has been disabled since. ESR was 40, and this level is not concerning for polymyositis to explain the patient's limited mobility, and generalized weakness. Still awaiting the results of acetylcholine receptor binding antibody to rule out myasthenia gravis 5 morbid obesity, with history of gastric sleeve in 2013 6 history of deep vein thrombosis. And history of pulmonary embolism. 7 obstructive sleep apnea syndrome, maintained on CPAP/BiPAP. Recommendation: The patient was seen and evaluated by Dr. Whittington. He is stable from the pulmonary standpoint. The plan is for transfer to [facility] once specialty bed is in place. Continue with his current pulmonary medications. We will follow on as-needed basis. I, the cosigning physician, performed a history & physical examination of the patient. Lungs sounds are clear anteriorly, few crackles in posterior bases. Maintaining good O2 saturations in the 90s on room air. I discussed the assessment and plan of care with my nurse practitioner, Goldie Guardado. I attest to the above note as dictated by her.
== END 2018-06-18 16:18 | DRG 190 ==
LOC: EC 19:14 → 4MS4W 21:53
PROVIDERS: ADMIT Internal Medicine; ATTEND Internal Medicine
DX: J44.1 Chronic obstructive pulmonary disease with (acute) exacerbation (principal); J18.9 Pneumonia, unspecified organism; J96.21 Acute and chronic respiratory failure with hypoxia; J98.11 Atelectasis; Z68.43 Body mass index [BMI] 50.0-59.9, adult; E66.01 Morbid (severe) obesity due to excess calories; E78.5 Hyperlipidemia, unspecified; F25.9 Schizoaffective disorder, unspecified; F32.9 Major depressive disorder, single episode, unspecified; F40.240 Claustrophobia; F41.0 Panic disorder [episodic paroxysmal anxiety]; G47.33 Obstructive sleep apnea (adult) (pediatric); G89.4 Chronic pain syndrome; I27.20 Pulmonary hypertension, unspecified; I45.4 Nonspecific intraventricular block; J44.0 Chronic obstructive pulmonary disease with (acute) lower respiratory infection; K21.9 Gastro-esophageal reflux disease without esophagitis; M06.9 Rheumatoid arthritis, unspecified; M10.9 Gout, unspecified; M41.9 Scoliosis, unspecified; K44.9 Diaphragmatic hernia without obstruction or gangrene; M19.90 Unspecified osteoarthritis, unspecified site; M25.552 Pain in left hip; M25.562 Pain in left knee; M54.5 Low back pain; R07.89 Other chest pain; R60.0 Localized edema; I51.7 Cardiomegaly; R53.82 Chronic fatigue, unspecified; Z79.51 Long term (current) use of inhaled steroids; Z79.82 Long term (current) use of aspirin; Z79.899 Other long term (current) drug therapy; Z79.891 Long term (current) use of opiate analgesic; Z98.84 Bariatric surgery status; Z96.641 Presence of right artificial hip joint; Z87.891 Personal history of nicotine dependence; Z86.718 Personal history of other venous thrombosis and embolism; Z86.711 Personal history of pulmonary embolism; Z85.828 Personal history of other malignant neoplasm of skin; F10.21 Alcohol dependence, in remission; Z86.14 Personal history of Methicillin resistant Staphylococcus aureus infection; Z88.1 Allergy status to other antibiotic agents; Z88.5 Allergy status to narcotic agent; Z88.0 Allergy status to penicillin; Z90.49 Acquired absence of other specified parts of digestive tract; Z80.1 Family history of malignant neoplasm of trachea, bronchus and lung
CPT/HCPCS: 36415; 71045; 71046; 71275; 80053; 82550; 82553; 83036; 83519; 84484; 85025; 85379; 85610; 85652; 85730; 87040; 93005; 93306; 93970; 94640; 94760; 96365; 96366; 96368; 96374; 96375; 96376; 99285

== ENCOUNTER 2019-02-02 21:38 | Emergency (ER) | payer MEDICARE, BC ==
[2019-02-02] MEDS ORDERED: SODIUM CHLORIDE 0.9% 500 ML 500 ML IV STA (21:53)
[2019-02-02] MEDS ORDERED: MORPHINE SULFATE 4 MG/ML SYRINGE IVP PRN (21:53)
--- NOTE | 2019-02-02 21:57 | ED ---
General Adult HPI - General Chief complaint: Shortness of Breath Stated complaint: CAROLYN Time Seen by Provider: 02/02/19 21:40 Source: patient Mode of arrival: EMS Limitations: physical limitation - History of Present Illness Initial comments: Dictation was produced using [employer] dictation software. please excuse any grammatical, word or spelling errors. Chief Complaint: 58-year-old male past medical history of asthma, COPD, DVT, GERD, dyslipidemia, chronic debility presents with chief complaint of dyspnea. History of Present Illness: This 58-year-old male with multiple comorbidities. He states he woke up this morning with dyspnea. Patient states he woke approximately 8 AM with dyspnea. Patient called [facility] and allegedly spoke with a physician. He then called EMS. Here to our facility. Patient states that he feels short of breath and generally weak. EMS reports that patient had stable vital signs as not hypoxic prior to arrival. Patient was given breathing treatments without any clinical change in his symptoms. Patient does have history of COPD and asthma. Patient is concerned that he is having morphine withdrawals. He states that is by mouth morphine had been tapered to dramatically. The ROS documented in this emergency department record has been reviewed and confirmed by me. Those systems with pertinent positive or negative responses have been documented in the HPI. All other systems are other negative and/or noncontributory. PHYSICAL EXAM: General Impression: Alert and oriented x3, not in acute distress HEENT: Normocephalic atraumatic, extra-ocular movements intact, pupils equal and reactive to light bilaterally, mucous membranes moist. Cardiovascular: Heart regular rate and rhythm, S1&S2 audible, no murmurs, rubs or gallops Chest: Lungs clear to auscultation bilaterally, no rhonchi, no wheeze, no rales Abdomen: Bowel sounds present, abdomen soft, non-tender, non-distended, no organomegaly Musculoskeletal: Pulses present and equal in all extremities, no peripheral edema Motor: Power 5/5 bilaterally, no focal deficits noted Neurological: CN II-XII grossly intact, no focal motor or sensory deficits noted Skin: Intact with no visualized rashes Psych: Anxious ED course: 58-year-old male with chief complaint of dyspnea. Upon arrival are within acceptable limits. Patient is 96% without any supplemental oxygen. Rest of vital signs within normal limits. Patient's lungs are clear to auscultation bilaterally. Patient not showing any signs of acute respiratory distress.Laboratory evaluation obtained. CBC unremarkable. Coag panel unremarkable. D-dimer 0.67. Sodium 128, hypochloremic at 83, alkalotic with a carbon dioxide of 3290 is 1.5. Given intravenous fluids and supplemental magnesium. Discussed patient case in detail with Dr. Oleksandr Carrillo who takes care of [facility] at the [facility]. He is aware of these findings namely his electrolyte derangements and feel like as willing to manage his electrolyte derangements at the [facility] later on today. At this point patient main complaint is shortness of breath however no acute processes to suggest his symptoms. Patient clear for discharge back to [facility]. EKG interpretation: Ventricular rate 80, normal sinus rhythm, NM interval 172, QS 118, QTc 459. No NM prolongation, no QTC prolongation, no ST or T-wave changes noted. EKG compared to 06/12/2018 showing no changes. Overall, this EKG is unremarkable - Related Data Home Medications Medication Instructions Recorded Confirmed Aspirin 81 mg PO DAILY 09/13/14 02/02/19 Furosemide [Lasix] 40 mg PO DAILY 09/13/14 02/02/19 Potassium Chloride [Klor-Con 20] 20 meq PO TID 09/13/14 02/02/19 lamoTRIgine 150 mg PO BID 09/03/15 02/02/19 Atorvastatin [Lipitor] 10 mg PO HS 06/09/16 02/02/19 Metolazone [Zaroxolyn] 2.5 mg PO DAILY 06/17/16 02/02/19 Cilostazol [Pletal] 100 mg PO BID 06/12/18 02/02/19 busPIRone HCL 10 mg PO BID 06/12/18 02/02/19 Febuxostat [Uloric] 80 mg PO DAILY 06/13/18 02/02/19 Gabapentin 600 mg PO TID 06/13/18 02/02/19 buPROPion XL [Wellbutrin XL] 150 mg PO DAILY 06/13/18 02/02/19 ALPRAZolam [Xanax] 0.5 mg PO Q8H PRN 02/02/19 02/02/19 Albuterol Sulfate [Proventil Hfa] 1 - 2 puff INHALATION RT-QID PRN 02/02/19 02/02/19 Cholecalciferol [Vitamin D3] 1,000 unit PO DAILY 02/02/19 02/02/19 Docusate [Colace] 200 mg PO BID 02/02/19 02/02/19 Glycerin Adult Suppository 1 supp RECTAL ONCE PRN 02/02/19 02/02/19 Ipratropium-Albuterol Nebulize 3 ml INHALATION RT-QID 02/02/19 02/02/19 [Duoneb 0.5 mg-3 mg/3 ml Soln] Melatonin 5 mg PO HS 02/02/19 02/02/19 Morphine Sulfate ER [Ms Contin] 30 mg PO Q8H 02/02/19 02/02/19 Naloxegol Oxalate [Movantik] 25 mg PO HS 02/02/19 02/02/19 Omeprazole 20 mg PO DAILY 02/02/19 02/02/19 Polyethylene Glycol 3350 [Miralax] 17 gm PO DAILY PRN 02/02/19 02/02/19 QUEtiapine [SEROquel] 25 mg PO HS@2100 02/02/19 02/02/19 QUEtiapine [SEROquel] 100 mg PO BID@0900,2100 02/02/19 02/02/19 Previous Rx's Medication Instructions Recorded Spironolactone [Aldactone] 25 mg PO BID #60 tab 10/12/16 Allergies Allergy/AdvReac Type Severity Reaction Status Date / Time codeine Allergy Severe Swelling Verified 02/02/19 22:43 OF THROAT WITH COUGH SYRUP chlorpheniramine Allergy Unknown Verified 02/02/19 22:43 phenylephrine Allergy Unknown Verified 02/02/19 22:43 piperacillin sodium Allergy Unknown Verified 02/02/19 22:43 [From Zosyn] tazobactam sodium Allergy Unknown Verified 02/02/19 22:43 [From Zosyn] Review of Systems ROS Statement: Those systems with pertinent positive or pertinent negative responses have been documented in the HPI. ROS Other: All systems not noted in ROS Statement are negative. Past Medical History Past Medical History: Asthma, Cancer, COPD, Deep Vein Thrombosis (DVT), GERD/Reflux, GI Bleed, Hyperlipidemia, Osteoarthritis (OA), Pneumonia, Pulmonary Embolus (PE), Renal Disease, Sleep Apnea/CPAP/BIPAP Additional Past Medical History / Comment(s): HYPOGLYCEMIA. NO C-PAP. DDD, SCOLIOSIS OF SPINE, SLEEPS IN RECLINER. HAVING . HX OF SKIN CANCER , Hiatal Hernia. Irregular HR in the past. DVT IN LEG, WENT TO LUNG - AFTER HIP SURG. BLOOD IN STOOL,RENAL DISEASE-STAGE 3," RETAINS FLUIDS " History of Any Multi-Drug Resistant Organisms: MRSA Date of last positivie culture/infection: AUG 2014 MDRO Source:: NASAL Past Surgical History: Appendectomy, Bariatric Surgery, Heart Catheterization, Hernia Repair, Joint Replacement, Orthopedic Surgery Additional Past Surgical History / Comment(s): RT ELBOW SURG X2, TOTAL RT HIP,ARTHROSCOPIC LT KNEE X2, RT ANKLE RECONSTRUCTIVE SURG, JANUARY 2014 GASTRIC SLEEVE, COLONOSCOPY'S. Basal Cell CA Face, Back. LT ING HERNIA Past Anesthesia/Blood Transfusion Reactions: Previous Problems w/ Anesthesia Additional Past Anesthesia/Blood Transfusion Reaction / Comment(s): STATES HE WAS TOLD HE WAS A DIFFICULT INTUBATION WITH GASTRIC SLEEVE SURGERY, Past Psychological History: Anxiety, Depression, Panic Disorder, Schizoaffective Disorder Smoking Status: Former smoker - Past Family History Father Family Medical History: Cancer Additional Family Medical History / Comment(s): LUNG CA General Exam Limitations: physical limitation Course Vital Signs 02/02/19 02/02/19 02/02/19 21:41 21:45 22:47 Temperature 98.9 F Pulse Rate 86 77 Respiratory 20 20 20 Rate Blood Pressure 130/85 139/93 O2 Sat by Pulse 95 94 L Oximetry Medical Decision Making - Lab Data Result diagrams: 02/02/19 22:22 02/02/19 22:22 Lab Results 02/02/19 02/02/19 02/02/19 Range/Units 22:22 22:22 22:22 WBC 9.7 (3.8-10.6) k/uL RBC 4.86 (4.30-5.90) m/uL Hgb 14.1 (13.0-17.5) gm/dL Hct 41.4 (39.0-53.0) % MCV 85.2 (80.0-100.0) fL MCH 28.9 (25.0-35.0) pg MCHC 34.0 (31.0-37.0) g/dL RDW 13.3 (11.5-15.5) % Plt Count 280 (150-450) k/uL Neutrophils % 77 % Lymphocytes % 15 % Monocytes % 6 % Eosinophils % 1 % Basophils % 0 % Neutrophils # 7.4 (1.3-7.7) k/uL Lymphocytes # 1.4 (1.0-4.8) k/uL Monocytes # 0.6 (0-1.0) k/uL Eosinophils # 0.1 (0-0.7) k/uL Basophils # 0.0 (0-0.2) k/uL PT 9.8 (9.0-12.0) sec INR 0.9 (<1.2) APTT 24.8 (22.0-30.0) sec D-Dimer 0.67 H (<0.60) mg/L FEU Sodium 128 L (137-145) mmol/L Potassium 3.8 (3.5-5.1) mmol/L Chloride 83 L (98-107) mmol/L Carbon Dioxide 32 H (22-30) mmol/L Anion Gap 13 mmol/L BUN 27 H (9-20) mg/dL Creatinine 1.05 (0.66-1.25) mg/dL Est GFR (CKD-EPI)AfAm >90 (>60 ml/min/1.73 sqM) Est GFR (CKD-EPI)NonAf 79 (>60 ml/min/1.73 sqM) Glucose 140 H (74-99) mg/dL Calcium 10.5 H (8.4-10.2) mg/dL Magnesium 1.5 L (1.6-2.3) mg/dL Total Bilirubin 0.9 (0.2-1.3) mg/dL AST 20 (17-59) U/L ALT 35 (21-72) U/L Alkaline Phosphatase 106 (38-126) U/L Troponin I (0.000-0.034) ng/mL Total Protein 7.0 (6.3-8.2) g/dL Albumin 4.1 (3.5-5.0) g/dL 02/02/19 Range/Units 22:22 WBC (3.8-10.6) k/uL RBC (4.30-5.90) m/uL Hgb (13.0-17.5) gm/dL Hct (39.0-53.0) % MCV (80.0-100.0) fL MCH (25.0-35.0) pg MCHC (31.0-37.0) g/dL RDW (11.5-15.5) % Plt Count (150-450) k/uL Neutrophils % % Lymphocytes % % Monocytes % % Eosinophils % % Basophils % % Neutrophils # (1.3-7.7) k/uL Lymphocytes # (1.0-4.8) k/uL Monocytes # (0-1.0) k/uL Eosinophils # (0-0.7) k/uL Basophils # (0-0.2) k/uL PT (9.0-12.0) sec INR (<1.2) APTT (22.0-30.0) sec D-Dimer (<0.60) mg/L FEU Sodium (137-145) mmol/L Potassium (3.5-5.1) mmol/L Chloride (98-107) mmol/L Carbon Dioxide (22-30) mmol/L Anion Gap mmol/L BUN (9-20) mg/dL Creatinine (0.66-1.25) mg/dL Est GFR (CKD-EPI)AfAm (>60 ml/min/1.73 sqM) Est GFR (CKD-EPI)NonAf (>60 ml/min/1.73 sqM) Glucose (74-99) mg/dL Calcium (8.4-10.2) mg/dL Magnesium (1.6-2.3) mg/dL Total Bilirubin (0.2-1.3) mg/dL AST (17-59) U/L ALT (21-72) U/L Alkaline Phosphatase (38-126) U/L Troponin I <0.012 (0.000-0.034) ng/mL Total Protein (6.3-8.2) g/dL Albumin (3.5-5.0) g/dL Disposition Clinical Impression: Dyspnea Disposition: HOME SELF-CARE Condition: Good Instructions (If sedation given, give patient instructions): Dyspnea (ED) Is patient prescribed a controlled substance at d/c from ED?: No Referrals: Oleksandr Carrillo MD [Primary Care Provider] - 1-2 days Time of Disposition: 00:26
[2019-02-02 22:36] LABS: Basophils % (A) 0 %; Eosinophils # (A) 0.1 k/uL (0-0.7); Eosinophils % (A) 1 %; HCT 41.4 % (39.0-53.0); HGB 14.1 gm/dL (13.0-17.5); Lymphocytes # (A) 1.4 k/uL (1.0-4.8); Lymphocytes % (A) 15 %; MCH 28.9 pg (25.0-35.0); MCV 85.2 fL (80.0-100.0); Mean Platelet Volume 6.5; Monocytes # (A) 0.6 k/uL (0-1.0); Monocytes % (A) 6 %; Neutrophils # (A) 7.4 k/uL (1.3-7.7); Neutrophils % (A) 77 %; Platelet Count 280 k/uL (150-450); RBC 4.86 m/uL (4.30-5.90); RDW 13.3 % (11.5-15.5); WBC 9.7 k/uL (3.8-10.6)
[2019-02-02 22:46] LABS: ALT 35 U/L (21-72); AST 20 U/L (17-59); Albumin 4.1 g/dL (3.5-5.0); Alkaline Phosphatase 106 U/L (38-126); Anion Gap 13 mmol/L; Blood Urea Nitrogen 27 mg/dL (9-20); Calcium 10.5 mg/dL (8.4-10.2); Carbon Dioxide 32 mmol/L (22-30); Chloride 83 mmol/L (98-107); Glucose 140 mg/dL (74-99); Magnesium 1.5 mg/dL (1.6-2.3); Potassium 3.8 mmol/L (3.5-5.1); Sodium 128 mmol/L (137-145); Total Bilirubin 0.9 mg/dL (0.2-1.3)
[2019-02-02 22:51] LABS: INR 0.9 (<1.2); Partial Thromboplastin Time 24.8 sec (22.0-30.0); Prothrombin Time 9.8 sec (9.0-12.0)
[2019-02-02 22:54] LABS: D-Dimer 0.67 mg/L FEU (<0.60)
[2019-02-02] MEDS ORDERED: MAGNESIUM OXIDE 400 MG TAB PO STA (23:06)
--- NOTE | 2019-02-02 23:21 | XR ---
History: ITS.REASON XR Reason: difficulty breathing Exam: XR CXR 2 VIEWS Comparison: 06/16/2018 FINDINGS: Platelike opacity at the right base may represent scar atelectasis. Mild elevation of the right hemidiaphragm. The left lung is clear. Pulmonary vascularity appears within limits. No evidence of pleural effusion. Cardiac silhouette appears enlarged. IMPRESSION: Platelike opacity at the right base may represent scar atelectasis. Mild elevation of the right hemidiaphragm. The left lung is clear. Pulmonary vascularity appears within limits. No evidence of pleural effusion. Cardiac silhouette appears enlarged.
--- NOTE | 2019-02-03 00:21 | CT ---
History: ITS.REASON CT Reason: Pain Exam: CTA CHEST MIP images obtained Technique more: CTDI is 21.1 mGy and DLP is 923.2 mGy-cm. Technique more: This CT exam was performed using one or more of the following dose reduction techniques: automated exposure control, adjustment of the mA and/or kV according to patient size, and/or use of iterative reconstruction technique. Comparison: 06/12/2018 FINDINGS: No evidence of filling defect to suggest pulmonary embolism. The thoracic aorta and visualized great vessels appear within limits. No pericardial or pleural effusion. Coronary calcifications noted. Previous gastric surgery. Elevation of the right hemidiaphragm with right middle lobe and lower lobe atelectasis. Platelike area of opacification right lower lobe and lingula may represent atelectasis or scar. Left base atelectasis. The central airways are patent. IMPRESSION: No evidence of filling defect to suggest pulmonary embolism. Elevation of the right hemidiaphragm with right middle lobe and lower lobe atelectasis. Platelike area of opacification right lower lobe and lingula may represent atelectasis or scar. Left base atelectasis. The central airways are patent.
[2019-02-03 01:41] VITALS: BP 136/84; PULSE 82; RESP 18; TEMP 98.2
== END 2019-02-03 01:42 | disposition home or self-care (01) ==
LOC: EC 21:38
DX: R06.00 Dyspnea, unspecified (principal); J44.9 Chronic obstructive pulmonary disease, unspecified; K21.9 Gastro-esophageal reflux disease without esophagitis; E78.5 Hyperlipidemia, unspecified; M19.90 Unspecified osteoarthritis, unspecified site; G47.30 Sleep apnea, unspecified; F41.0 Panic disorder [episodic paroxysmal anxiety]; F32.9 Major depressive disorder, single episode, unspecified; F25.9 Schizoaffective disorder, unspecified; Z79.82 Long term (current) use of aspirin; Z79.51 Long term (current) use of inhaled steroids; Z79.899 Other long term (current) drug therapy; Z88.5 Allergy status to narcotic agent; Z88.8 Allergy status to other drugs, medicaments and biological substances; Z88.1 Allergy status to other antibiotic agents; Z87.891 Personal history of nicotine dependence; Z85.828 Personal history of other malignant neoplasm of skin; Z86.711 Personal history of pulmonary embolism; Z86.718 Personal history of other venous thrombosis and embolism
CPT/HCPCS: 36415; 93005; 85379; 80053; 83735; 84484; 85025; 85610; 85730; 71046; 71275; 99285; 96374; 96361; J2270; Q9967

== ENCOUNTER 2019-03-18 17:31 | Inpatient (IN) | payer MEDICARE, BC ==
[2019-03-18 18:13] LABS: ABG Base Excess -0.6 mmol/L; ABG HCO3 24 mmol/L (21-25); ABG Oxygen Saturation 99.1 % (94-97); ABG PCO2 41 mmHg (35-45); ABG PH 7.39 (7.35-7.45); ABG PO2 140 mmHg (83-108); ABG TCO2 26 mmol/L (19-24)
--- NOTE | 2019-03-18 18:17 | ED ---
General Adult HPI - General Chief complaint: Shortness of Breath Stated complaint: respiratory distress/kidney failure Time Seen by Provider: 03/18/19 17:43 Source: patient, RN/MD, EMS, RN notes reviewed, old records reviewed Mode of arrival: EMS Limitations: no limitations - History of Present Illness Initial comments: 58-year-old male presenting as transfer from outside hospital for evaluation of dyspnea, hypoxia. Patient has history of COPD, history of congestive heart failure. Patient was evaluated at outside hospital with complaints of dyspnea, followed be hypoxic and somewhat confused. He was placed initially on a nonrebreather ultimately on BiPAP. He was transferred to this institution for further evaluation and treatment. Patient currently living at assisted living facility, patient is predominantly bedbound secondary to obesity and comorbidities. Head revealed acute on chronic renal failure and leukocytosis. Patient transferred for further evaluation. - Related Data Home Medications Medication Instructions Recorded Confirmed Aspirin 81 mg PO DAILY 09/13/14 03/18/19 Furosemide [Lasix] 40 mg PO DAILY 09/13/14 03/18/19 Potassium Chloride [Klor-Con 20] 20 meq PO DAILY 09/13/14 03/18/19 lamoTRIgine 150 mg PO BID 09/03/15 03/18/19 Metolazone [Zaroxolyn] 2.5 mg PO DAILY 06/17/16 03/18/19 Cilostazol [Pletal] 100 mg PO BID 06/12/18 03/18/19 Gabapentin 600 mg PO TID 06/13/18 03/18/19 buPROPion XL [Wellbutrin XL] 150 mg PO DAILY 06/13/18 03/18/19 Cholecalciferol [Vitamin D3] 1,000 unit PO DAILY 02/02/19 03/18/19 Ipratropium-Albuterol Nebulize 3 ml INHALATION RT-QID 02/02/19 03/18/19 [Duoneb 0.5 mg-3 mg/3 ml Soln] Melatonin 5 mg PO HS 02/02/19 03/18/19 Naloxegol Oxalate [Movantik] 25 mg PO HS 02/02/19 03/18/19 Polyethylene Glycol 3350 [Miralax] 17 gm PO DAILY PRN 02/02/19 03/18/19 Acetaminophen [Tylenol] 650 mg PO Q4H PRN 03/18/19 03/18/19 Budesonide [Pulmicort Flexhaler] 1 puff INHALATION RT-BID 03/18/19 03/18/19 Enalapril Maleate [Vasotec] 20 mg PO BID 03/18/19 03/18/19 Ibuprofen [Motrin] 400 mg PO Q6HR PRN 03/18/19 03/18/19 Iron 15mg/1.5ml 45 mg PO DAILY 03/18/19 03/18/19 Magnesium Hydroxide [Milk of 2,400 mg PO DAILY 03/18/19 03/18/19 Magnesia] Multivitamins, Thera [Multivitamin 1 tab PO DAILY 03/18/19 03/18/19 (formulary)] OLANZapine [ZyPREXA] 10 mg PO DAILY 03/18/19 03/18/19 Pantoprazole [Protonix] 40 mg PO DAILY 03/18/19 03/18/19 Sucralfate [Carafate] 1 gm PO AC-TID 03/18/19 03/18/19 busPIRone HCL 15 mg PO BID 03/18/19 03/18/19 guaiFENesin [guaiFENesin Oral 200 mg PO Q6H PRN 03/18/19 03/18/19 Solution] predniSONE See Taper PO DIRECTED 03/18/19 03/18/19 Allergies Allergy/AdvReac Type Severity Reaction Status Date / Time codeine Allergy Severe Swelling Verified 03/18/19 19:04 OF THROAT WITH COUGH SYRUP chlorpheniramine Allergy Unknown Verified 03/18/19 19:04 phenylephrine Allergy Unknown Verified 03/18/19 19:04 piperacillin sodium Allergy Unknown Verified 03/18/19 19:04 [From Zosyn] tazobactam sodium Allergy Unknown Verified 03/18/19 19:04 [From Zosyn] Review of Systems ROS Statement: Those systems with pertinent positive or pertinent negative responses have been documented in the HPI. ROS Other: All systems not noted in ROS Statement are negative. Past Medical History Past Medical History: Asthma, Cancer, COPD, Deep Vein Thrombosis (DVT), GERD/Reflux, GI Bleed, Hyperlipidemia, Osteoarthritis (OA), Pneumonia, Pulmonary Embolus (PE), Renal Disease, Sleep Apnea/CPAP/BIPAP Additional Past Medical History / Comment(s): HYPOGLYCEMIA. NO C-PAP. DDD, SCOLIOSIS OF SPINE, SLEEPS IN RECLINER. HAVING . HX OF SKIN CANCER , Hiatal Hernia. Irregular HR in the past. DVT IN LEG, WENT TO LUNG - AFTER HIP SURG. BLOOD IN STOOL,RENAL DISEASE-STAGE 3," RETAINS FLUIDS " History of Any Multi-Drug Resistant Organisms: MRSA Date of last positivie culture/infection: AUG 2014 MDRO Source:: NASAL Past Surgical History: Appendectomy, Bariatric Surgery, Heart Catheterization, Hernia Repair, Joint Replacement, Orthopedic Surgery Additional Past Surgical History / Comment(s): RT ELBOW SURG X2, TOTAL RT HIP,ARTHROSCOPIC LT KNEE X2, RT ANKLE RECONSTRUCTIVE SURG, JANUARY 2014 GASTRIC SLEEVE, COLONOSCOPY'S. Basal Cell CA Face, Back. LT ING HERNIA Past Anesthesia/Blood Transfusion Reactions: Previous Problems w/ Anesthesia Additional Past Anesthesia/Blood Transfusion Reaction / Comment(s): STATES HE WAS TOLD HE WAS A DIFFICULT INTUBATION WITH GASTRIC SLEEVE SURGERY, Past Psychological History: Anxiety, Depression, Panic Disorder, Schizoaffective Disorder Smoking Status: Former smoker Past Alcohol Use History: None Reported Past Drug Use History: None Reported - Past Family History Father Family Medical History: Cancer Additional Family Medical History / Comment(s): LUNG CA General Exam Limitations: no limitations Course Vital Signs 03/18/19 03/18/19 03/18/19 17:54 18:00 18:30 Temperature 98.1 F Pulse Rate 90 90 97 Respiratory 16 21 23 Rate Blood Pressure 107/63 120/63 91/75 O2 Sat by Pulse 98 95 Oximetry - Reevaluation(s) Reevaluation #1: 03/18/19 18:14 Case discussed with patient's primary care physician Dr. Carrillo who is very familiar with this patient, will admit. 03/18/19 18:14 EKG Findings - EKG Comments: EKG Findings:: EKG: Sinus rhythm, no ST segment elevation, rate of 97, AK interval 162, QRS duration 116, QTC 424 Medical Decision Making - Medical Decision Making Workup at outside hospital revealed chest x-ray which is negative for focal pneumonia, head CT was obtained given the confusion, this was negative for any acute cranial pathology. Ferris catheter was placed with 1700 mL of urine returned. Patient had elevated BUN 84, elevated creatinine 2.8, negative troponin, normal lactic acid 1.6, leukocytosis with white blood cell count 19.6, hemoglobin 11.2. Repeat laboratory studies will be obtained in the emergency department, these are pending. Ferris will be continued. Repeat chest x-ray is obtained, no definitive focal pneumonia or acute process. Patient will be admitted for further evaluation and treatment of dyspnea, COPD, respiratory failure requiring BiPAP. - Lab Data Result diagrams: 03/18/19 19:12 03/18/19 19:12 Lab Results 03/18/19 03/18/19 03/18/19 Range/Units 17:52 18:56 19:12 WBC 19.5 H (3.8-10.6) k/uL RBC 4.07 L (4.30-5.90) m/uL Hgb 12.0 L (13.0-17.5) gm/dL Hct 36.5 L (39.0-53.0) % MCV 89.6 D (80.0-100.0) fL MCH 29.4 (25.0-35.0) pg MCHC 32.8 (31.0-37.0) g/dL RDW 15.0 (11.5-15.5) % Plt Count 405 (150-450) k/uL Neutrophils % 92 % Lymphocytes % 4 % Monocytes % 3 % Eosinophils % 0 % Basophils % 0 % Neutrophils # 17.9 H (1.3-7.7) k/uL Lymphocytes # 0.8 L (1.0-4.8) k/uL Monocytes # 0.6 (0-1.0) k/uL Eosinophils # 0.1 (0-0.7) k/uL Basophils # 0.0 (0-0.2) k/uL Sample Site L RADIAL ABG pH 7.39 (7.35-7.45) ABG pCO2 41 (35-45) mmHg ABG pO2 140 H (83-108) mmHg ABG HCO3 24 (21-25) mmol/L ABG Total CO2 26 H (19-24) mmol/L ABG O2 Saturation 99.1 H (94-97) % ABG Base Excess -0.6 mmol/L Adi Test Yes FiO2 60 % Sodium (137-145) mmol/L Potassium (3.5-5.1) mmol/L Chloride (98-107) mmol/L Carbon Dioxide (22-30) mmol/L Anion Gap mmol/L BUN (9-20) mg/dL Creatinine (0.66-1.25) mg/dL Est GFR (CKD-EPI)AfAm (>60 ml/min/1.73 sqM) Est GFR (CKD-EPI)NonAf (>60 ml/min/1.73 sqM) Glucose (74-99) mg/dL POC Glucose (mg/dL) 163 H (75-99) mg/dL POC Glu [employer] ID Benjamin Basurto Calcium (8.4-10.2) mg/dL Total Bilirubin (0.2-1.3) mg/dL AST (17-59) U/L ALT (21-72) U/L Alkaline Phosphatase (38-126) U/L Total Protein (6.3-8.2) g/dL Albumin (3.5-5.0) g/dL 03/18/19 Range/Units 19:12 WBC (3.8-10.6) k/uL RBC (4.30-5.90) m/uL Hgb (13.0-17.5) gm/dL Hct (39.0-53.0) % MCV (80.0-100.0) fL MCH (25.0-35.0) pg MCHC (31.0-37.0) g/dL RDW (11.5-15.5) % Plt Count (150-450) k/uL Neutrophils % % Lymphocytes % % Monocytes % % Eosinophils % % Basophils % % Neutrophils # (1.3-7.7) k/uL Lymphocytes # (1.0-4.8) k/uL Monocytes # (0-1.0) k/uL Eosinophils # (0-0.7) k/uL Basophils # (0-0.2) k/uL Sample Site ABG pH (7.35-7.45) ABG pCO2 (35-45) mmHg ABG pO2 (83-108) mmHg ABG HCO3 (21-25) mmol/L ABG Total CO2 (19-24) mmol/L ABG O2 Saturation (94-97) % ABG Base Excess mmol/L Adi Test FiO2 % Sodium 131 L (137-145) mmol/L Potassium 4.2 (3.5-5.1) mmol/L Chloride 94 L (98-107) mmol/L Carbon Dioxide 24 (22-30) mmol/L Anion Gap 13 mmol/L BUN 70 H (9-20) mg/dL Creatinine 2.24 H (0.66-1.25) mg/dL Est GFR (CKD-EPI)AfAm 36 (>60 ml/min/1.73 sqM) Est GFR (CKD-EPI)NonAf 32 (>60 ml/min/1.73 sqM) Glucose 146 H (74-99) mg/dL POC Glucose (mg/dL) (75-99) mg/dL POC Glu Truck Rental Manager ID Calcium 9.6 (8.4-10.2) mg/dL Total Bilirubin 0.6 (0.2-1.3) mg/dL AST 12 L (17-59) U/L ALT 40 (21-72) U/L Alkaline Phosphatase 84 (38-126) U/L Total Protein 6.1 L (6.3-8.2) g/dL Albumin 3.8 (3.5-5.0) g/dL Critical Care Time Critical Care Time: Yes Total Critical Care Time: 35 Disposition Clinical Impression: Acute exacerbation of chronic obstructive airways disease, Fluid overload, Congestive heart failure, Renal failure Disposition: ADMITTED IP TO THIS [facility] Condition: Serious Is patient prescribed a controlled substance at d/c from ED?: No Referrals: Jose Jimenes MD [REFERRING] - 1-2 days Decision to Admit Reason: Admit from EC Decision Date: 03/18/19 Decision Time: 19:10
--- NOTE | 2019-03-18 18:32 | XR ---
EXAMINATION TYPE: XR chest 1V portable DATE OF EXAM: 03/18/2019 Comparison: 02/02/2019 Clinical History: 58-year-old male with Pain Findings: Low lung volumes with crowded vascular markings. Heart appears upper limits of normal in size. Bilate ral hilar prominence. No steff consolidation seen. Periphery of the lungs are underpenetrated with cross zy densities. No sizable effusion. Impression: Hypoventilatory changes with right basilar atelectasis. The periphery of the lungs are underpenetrate d causing hazy densities and limiting assessment.
[2019-03-18 18:59] LABS: Glucose,Whole Blood 163 mg/dL (75-99)
[2019-03-18 19:31] LABS: Basophils % (A) 0 %; Eosinophils # (A) 0.1 k/uL (0-0.7); Eosinophils % (A) 0 %; HCT 36.5 % (39.0-53.0); Lymphocytes # (A) 0.8 k/uL (1.0-4.8); Lymphocytes % (A) 4 %; MCH 29.4 pg (25.0-35.0); MCHC 32.8 g/dL (31.0-37.0); Mean Platelet Volume 7.3; Monocytes # (A) 0.6 k/uL (0-1.0); Monocytes % (A) 3 %; Neutrophils # (A) 17.9 k/uL (1.3-7.7); Neutrophils % (A) 92 %; Platelet Count 405 k/uL (150-450); RBC 4.07 m/uL (4.30-5.90); WBC 19.5 k/uL (3.8-10.6)
[2019-03-18 19:33] LABS: MCV 89.6 fL (80.0-100.0)
[2019-03-18 19:39] LABS: Albumin 3.8 g/dL (3.5-5.0); Calcium 9.6 mg/dL (8.4-10.2); Potassium 4.2 mmol/L (3.5-5.1); Total Bilirubin 0.6 mg/dL (0.2-1.3); Total Protein 6.1 g/dL (6.3-8.2)
[2019-03-18] MEDS ORDERED: IPRATROPIUM-ALBUTEROL 3 ML NEB INHALATION PRN (19:49)
[2019-03-18] MEDS: IPRATROPIUM-ALBUTEROL 3 ML NEB INHALATION SCH (21:28)
[2019-03-18 21:39] LABS: Glucose,Whole Blood 111 mg/dL (75-99)
[2019-03-18 22:05] VITALS: BMI 44.1
[2019-03-18] MEDS ORDERED: guaiFENesin SYRUP 100MG/5ML 200 MG/10 ML CUP PO PRN (22:30)
[2019-03-18] MEDS: lamoTRIgine 100 MG TAB PO SCH (22:46)
[2019-03-18] MEDS: GABAPENTIN 300 MG CAP PO SCH (22:49)
[2019-03-18] MEDS: busPIRone HCl 5 MG TAB PO SCH (22:49)
[2019-03-18] MEDS: MELATONIN 5 MG TABLET PO SCH (22:49)
[2019-03-18] MEDS: ACETAMINOPHEN TAB 325 MG TAB PO PRN (22:49)
[2019-03-18] MEDS: methylPREDNISolone SOD SUCCI 125 MG/2 ML VIAL IV SCH (22:58)
[2019-03-18] MEDS: IBUPROFEN 400 MG TAB PO PRN (23:43)
[2019-03-19 02:07] LABS: Glucose,Whole Blood 115 mg/dL (75-99)
[2019-03-19 05:58] LABS: Glucose,Whole Blood 115 mg/dL (75-99)
[2019-03-19] MEDS: methylPREDNISolone SOD SUCCI 125 MG/2 ML VIAL IV SCH ×3 (06:48→17:26)
[2019-03-19] MEDS: SUCRALFATE 1 GM TAB PO SCH ×3 (06:49→15:20)
[2019-03-19] MEDS: ACETAMINOPHEN TAB 325 MG TAB PO PRN (07:21)
[2019-03-19] MEDS: IBUPROFEN 400 MG TAB PO PRN (07:22)
[2019-03-19] MEDS: BUDESONIDE 1 MG/2 ML NEBU INHALATION SCH ×2 (08:11→19:29)
[2019-03-19] MEDS: IPRATROPIUM-ALBUTEROL 3 ML NEB INHALATION SCH ×4 (08:11→19:29)
[2019-03-19] MEDS ORDERED: OLANZapine 10 MG TAB PO SCH (09:00)
[2019-03-19] MEDS ORDERED: POTASSIUM CHLORIDE ER 20 MEQ TAB.ER PO SCH (09:00)
[2019-03-19] MEDS ORDERED: PANTOPRAZOLE 40 MG TABLET PO SCH (09:00)
[2019-03-19] MEDS ORDERED: buPROPion XL 150 MG TAB.ER.24H PO SCH (09:00)
[2019-03-19] MEDS ORDERED: ASPIRIN 81 MG PO SCH (09:00)
[2019-03-19] MEDS ORDERED: POLYETHYLENE GLYCOL 3350 17 GM POWD.PACK PO PRN (09:00)
[2019-03-19] MEDS ORDERED: FUROSEMIDE 40 MG TAB PO SCH ×2 (09:00→16:00)
[2019-03-19] MEDS ORDERED: METOLAZONE 2.5 MG TAB PO SCH (09:00)
[2019-03-19] MEDS ORDERED: CHOLECALCIFEROL 1,000 UNIT TAB PO SCH (09:00)
[2019-03-19] MEDS: lamoTRIgine 100 MG TAB PO SCH ×2 (09:32→21:21)
[2019-03-19] MEDS: CILOSTAZOL 100 MG TAB PO SCH ×2 (09:33→21:21)
[2019-03-19] MEDS: GABAPENTIN 300 MG CAP PO SCH ×3 (09:33→21:21)
[2019-03-19] MEDS: busPIRone HCl 5 MG TAB PO SCH ×2 (09:34→21:21)
--- NOTE | 2019-03-19 10:56 | P.NPCON ---
History of Present Illness - Reason for Consult Consult date: 03/19/19 acute renal failure - Chief Complaint Shortness of breath with acute kidney - History of Present Illness 58-year-old male morbidly obese presenting as transfer from outside hospital for evaluation of dyspnea, hypoxia. Patient is seen because of acute kidney injury. He has been in various hospitals including [facility] and [facility] since December 2018 the last 2 months. His history is significant for COPD, history of congestive heart failure. Patient was evaluated at outside hospital with complaints of dyspnea, followed be hypoxic and somewhat confused. He was placed initially on a nonrebreather ultimately on BiPAP. He was transferred to this institution for further evaluation and treatment. Patient currently living at assisted living facility, patient is predominantly bedbound secondary to obesity and comorbidities. He complains of feeling fatigued, complains of multiple seizures including here. He is very anxious that he was unable to walk. Denies any fever chills nausea vomiting diarrhea. Appetite is fair. Is known with history of panic disorder schizoaffective disorder, bariatric surgery 2013 with a gastric sleeve, has history of DVT and PE. Past Medical History Past Medical History: Asthma, Cancer, COPD, Deep Vein Thrombosis (DVT), GERD/Reflux, GI Bleed, Hyperlipidemia, Osteoarthritis (OA), Pneumonia, Pulmonary Embolus (PE), Renal Disease, Sleep Apnea/CPAP/BIPAP Additional Past Medical History / Comment(s): HYPOGLYCEMIA. NO C-PAP. DDD, SCOLIOSIS OF SPINE, SLEEPS IN RECLINER. HAVING . HX OF SKIN CANCER , Hiatal Hernia. Irregular HR in the past. DVT IN LEG, WENT TO LUNG - AFTER HIP SURG. BLOOD IN STOOL,RENAL DISEASE-STAGE 3," RETAINS FLUIDS " History of Any Multi-Drug Resistant Organisms: MRSA Date of last positivie culture/infection: AUG 2014 MDRO Source:: NASAL Past Surgical History: Appendectomy, Bariatric Surgery, Heart Catheterization, Hernia Repair, Joint Replacement, Orthopedic Surgery Additional Past Surgical History / Comment(s): RT ELBOW SURG X2, TOTAL RT HIP,ARTHROSCOPIC LT KNEE X2, RT ANKLE RECONSTRUCTIVE SURG, JANUARY 2014 GASTRIC SLEEVE, COLONOSCOPY'S. Basal Cell CA Face, Back. LT ING HERNIA Past Anesthesia/Blood Transfusion Reactions: Previous Problems w/ Anesthesia Additional Past Anesthesia/Blood Transfusion Reaction / Comment(s): STATES HE WAS TOLD HE WAS A DIFFICULT INTUBATION WITH GASTRIC SLEEVE SURGERY, Smoking Status: Former smoker - Past Family History Father Family Medical History: Cancer Additional Family Medical History / Comment(s): LUNG CA Medications and Allergies Home Medications Medication Instructions Recorded Confirmed Type Aspirin 81 mg PO DAILY 09/13/14 03/18/19 History Furosemide [Lasix] 40 mg PO DAILY 09/13/14 03/18/19 History Potassium Chloride [Klor-Con 20] 20 meq PO DAILY 09/13/14 03/18/19 History lamoTRIgine 150 mg PO BID 09/03/15 03/18/19 History Metolazone [Zaroxolyn] 2.5 mg PO DAILY 06/17/16 03/18/19 History Cilostazol [Pletal] 100 mg PO BID 06/12/18 03/18/19 History Gabapentin 600 mg PO TID 06/13/18 03/18/19 History buPROPion XL [Wellbutrin XL] 150 mg PO DAILY 06/13/18 03/18/19 History Cholecalciferol [Vitamin D3] 1,000 unit PO DAILY 02/02/19 03/18/19 History Ipratropium-Albuterol Nebulize 3 ml INHALATION RT-QID 02/02/19 03/18/19 History [Duoneb 0.5 mg-3 mg/3 ml Soln] Melatonin 5 mg PO HS 02/02/19 03/18/19 History Naloxegol Oxalate [Movantik] 25 mg PO HS 02/02/19 03/18/19 History Polyethylene Glycol 3350 [Miralax] 17 gm PO DAILY PRN 02/02/19 03/18/19 History Acetaminophen [Tylenol] 650 mg PO Q4H PRN 03/18/19 03/18/19 History Budesonide [Pulmicort Flexhaler] 1 puff INHALATION RT-BID 03/18/19 03/18/19 History Enalapril Maleate [Vasotec] 20 mg PO BID 03/18/19 03/18/19 History Ibuprofen [Motrin] 400 mg PO Q6HR PRN 03/18/19 03/18/19 History Iron 15mg/1.5ml 45 mg PO DAILY 03/18/19 03/18/19 History Magnesium Hydroxide [Milk of 2,400 mg PO DAILY 03/18/19 03/18/19 History Magnesia] Multivitamins, Thera [Multivitamin 1 tab PO DAILY 03/18/19 03/18/19 History (formulary)] OLANZapine [ZyPREXA] 10 mg PO DAILY 03/18/19 03/18/19 History Pantoprazole [Protonix] 40 mg PO DAILY 03/18/19 03/18/19 History Sucralfate [Carafate] 1 gm PO AC-TID 03/18/19 03/18/19 History busPIRone HCL 15 mg PO BID 03/18/19 03/18/19 History guaiFENesin [guaiFENesin Oral 200 mg PO Q6H PRN 03/18/19 03/18/19 History Solution] predniSONE See Taper PO DIRECTED 03/18/19 03/18/19 History Allergies Allergy/AdvReac Type Severity Reaction Status Date / Time codeine Allergy Severe Swelling Verified 03/18/19 19:04 OF THROAT WITH COUGH SYRUP chlorpheniramine Allergy Unknown Verified 03/18/19 19:04 phenylephrine Allergy Unknown Verified 03/18/19 19:04 piperacillin sodium Allergy Unknown Verified 03/18/19 19:04 [From Zosyn] tazobactam sodium Allergy Unknown Verified 03/18/19 19:04 [From Zosyn] Physical Exam Vitals: Vital Signs Temp Pulse Pulse Resp BP BP Pulse Ox 03/19/19 08:25 80 03/19/19 08:11 84 03/19/19 08:00 98.0 F 87 16 120/60 98 03/19/19 07:15 86 87/56 96 03/19/19 04:00 98.0 F 90 18 109/58 97 03/19/19 00:00 97.8 F 100 20 99/47 98 03/18/19 21:53 97.8 F 90 20 96/48 99 03/18/19 21:39 90 03/18/19 21:29 88 16 98 03/18/19 21:20 97.8 F 90 20 96/45 100 03/18/19 20:54 97 16 95/76 100 03/18/19 18:30 97 23 91/75 95 03/18/19 18:00 90 21 120/63 03/18/19 17:54 98.1 F 90 16 107/63 98 Intake and Output 04/20/19 04/21/19 04/21/19 22:59 06:59 14:59 Output Total 800 Balance -800 Output: Urine 800 Other: Voiding Method Indwelling Catheter Indwelling Catheter Indwelling Catheter # Voids 1 Weight 189.602 kg 173 kg On examination is very anxious and hyperventilating, currently on nasal cannula HEENT exam no JVP neck is supple no facial asymmetry Lungs are significant for good air entry bilaterally with an occasional coarse crackle. Heart sounds are unremarkable for any murmur rub gallop Abdomen is obese difficult to examine Extremity exam was mild to moderate edema Neurologically awake alert oriented but very anxious and very worried. Has generalized weakness and had difficulty sitting up Results - Lab Results Most recent lab results ABG pH 7.39 (7.35-7.45) 03/18/19 17:52 ABG pCO2 41 mmHg (35-45) 03/18/19 17:52 ABG pO2 140 mmHg (83-108) H 03/18/19 17:52 ABG HCO3 24 mmol/L (21-25) 03/18/19 17:52 ABG O2 Saturation 99.1 % (94-97) H 03/18/19 17:52 Calcium 9.6 mg/dL (8.4-10.2) 03/18/19 19:12 03/18/19 19:12 03/18/19 19:12 Assessment and Plan Assessment: Impression 1. Acute kidney injury secondary to CHF and cardiorenal syndrome. 2. Mild hyponatremia sodium is 131 secondary to congestive heart failure. 3. No evidence of chronic kidney disease with GFR greater than 60 mL per minute creatinine baseline is 0.9-1.2 4.. Severe COPD, obesity, history of seizures per patient 5.. Mild anemia hemoglobin is 12. Likely secondary to chronic illness. Recommendation 1. Continue Lasix currently on 40 daily Will change it to 40 twice a day. 2. Maintain the metolazone 2.5F 3. Discontinue Motrin 4. Agree with maintaining the lisinopril. Currently 20 mg twice a day 5. Strict I's and O's 6. Monitor labs Thank you for this consultation we'll continue to follow with you
--- NOTE | 2019-03-19 11:10 | US ---
EXAMINATION TYPE: US venous doppler duplex LE DATE OF EXAM: 03/19/2019 10:33 AM COMPARISON: US 2018 CLINICAL HISTORY: 58-year-old male rule out DVT. Bilateral leg pain and swelling SIDE PERFORMED: Bilateral TECHNIQUE: The lower extremity deep venous system is examined utilizing real time linear array sonog snehal with graded compression, doppler sonography and color-flow sonography. FINDINGS: VESSELS IMAGED: External Iliac Vein (EIV) Common Femoral Vein Deep Femoral Vein Greater Saphenous Vein * Femoral Vein Popliteal Vein Small Saphenous Vein * Proximal Calf Veins (* superficial vessels) Geothermal Field Technician notes:Difficult and limited study due to patient body habitus Right Leg: Appears negative for DVT Left Leg: Appears negative for DVT IMPRESSION: Technically challenging exam due to patient body habitus. No DVT seen within the bilateral lower extr emities imaged from the groin to the upper calves.
[2019-03-19] MEDS: LISINOPRIL 20 MG TAB PO SCH ×2 (11:12→21:21)
[2019-03-19 11:21] LABS: Glucose,Whole Blood 143 mg/dL (75-99)
[2019-03-19 11:47] LABS: Appearance,Urine Clear (Clear); Bilirubin,Urine Negative (Negative); Blood,Urine Negative (Negative); Color,Urine Light Yellow; Glucose,Urine (UA) Negative (Negative); Ketones,Urine Negative (Negative); Leukocyte Esterase,Urine Negative (Negative); Nitrite,Urine Negative (Negative); Protein,Urine Negative (Negative); Specific Gravity,Urine 1.008 (1.001-1.035); Urobilinogen,Urine <2.0 mg/dL (<2.0)
[2019-03-19] MEDS ORDERED: MULTIVITAMINS, THERA 1 EACH TAB PO SCH (12:00)
--- NOTE | 2019-03-19 12:05 | HP ---
HISTORY AND PHYSICAL CHIEF COMPLAINT: 58-year-old white male who has been out of the hospital and in the rehab center of the [facility] in [place] for unclear etiology, possible pseudoseizures. He was sent to [place] and then transferred down here. He has had worsening renal failure, possibly more dehydration with prerenal renal failure. He has chronic shortness of breath, diastolic heart failure, COPD, anxiety, depression, bipolar disorder and was placed on BiPAP and on transferring. He has a history of pseudoseizures. He was at [facility] last month, that he had pseudoseizures checked out and a seizure disorder ruled out. He had a normal EEG. Last time he was seizing, less than 2-3 weeks ago at [facility]. He saw Neurology there, was cleared from seizure disorder. He has a severe history of panic and schizoaffective. He has a gastric sleeve, DVT and PE history; asthma, COPD, GERD, GI bleed, dyslipidemia, osteoarthritis, pulmonary embolism, renal disease, sleep apnea, history of hiatal hernia, history of MRSA. PAST SURGICAL HISTORY: Appendectomy, bariatric surgery, heart catheterization, knee replacement, orthopedic surgery, joint replacement, multiple elbow surgeries, ankle surgeries, basal cell cancer of the face and back, inguinal hernia repair, gastric sleeve surgery. FAMILY HISTORY: Father with lung cancer. ALLERGIES: CODEINE. MEDICATIONS: See list. Temp 98, pulse rate 88-100, blood pressure is 90s to 120s over 60s to 70s, O2 99% on room air. ABG was reviewed. LABS: Reviewed. White count 19.5, hemoglobin 12, sodium 131, potassium 4.2, BUN is 70, creatinine 2.24. ASSESSMENT: 1. Acute kidney injury secondary to congestive heart failure. 2. Cardiorenal syndrome. 3. Mild hyponatremia secondary to congestive heart failure. 4. Severe chronic obstructive pulmonary disease. 5. Chronic kidney disease. GFR greater than 60 per minute, creatinine baseline is 0.9 1.2. 6. Right-sided heart failure. 7. History of pseudoseizures. 8. Mild anemia. Cardiology, pulmonology, and renal physicians will be seeing. If he continues to have pseudoseizures, he may need a neurology consult at another hospital. Otherwise, continue with PT OT. Psychiatry seeing him for severe anxiety and panic disorder and pseudoseizures. The [facility] apparently was threatening to send him back home and he got very nervous and anxious and possibly started having pseudoseizures as he was sent home 2 or 3 times before in the last 2 months. He is unable to take care of himself, came right back to the hospital within 1 day. YARIEL / EVER: [id number] /
[2019-03-19] MEDS ORDERED: ALPRAZolam 0.5 MG TAB PO PRN (14:10)
[2019-03-19 16:16] LABS: Glucose,Whole Blood 284 mg/dL (75-99)
[2019-03-19] MEDS: INSULIN ASPART (NovoLOG) 100 UNIT/ML VIAL SQ SCH ×2 (17:27→21:27)
--- NOTE | 2019-03-19 19:59 | CONS ---
CONSULTATION Donavon Saha is a 58-year-old male who presented to the ER at [facility] when he was transferred from [facility]. He had been at [facility]. At that time, he had pseudoseizures, hypoglycemia and subsequently was transferred to a long-term. Over there, he apparently became unresponsive, was thought to have had a seizure and was hypoglycemic, was sent to the ER at [place] and transferred to [facility]. He is anxious at this time and has shortness of breath. He has a known history of pseudoseizures for which he had been at [facility] as well. PAST MEDICAL HISTORY: Positive for schizoaffective disorder, history of panic attacks, history of bariatric surgery with gastric sleeve, history of DVT and PE in the past, history of asthma, history of obstructive sleep apnea, history of skin cancer on his face, history of MRSA, history of hiatal hernia, appendectomy, cardiac cath, multiple elbow surgeries, ankle surgery and knee surgery. 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 Does not drink alcohol excessively. He does not smoke at this time. FAMILY HISTORY: Positive for lung cancer. MEDICATIONS: Prior to his admission were Zyprexa, Wellbutrin XL, Vasotec, Tylenol, Protonix, Pulmicort Flexhaler, prednisone, Klor-Con, Movantik, multivitamin, Zaroxolyn, melatonin, milk of magnesia, lamotrigine, iron, DuoNeb, gabapentin, Lasix, Pletal, cholecalciferol, buspirone, sucralfate, and aspirin. REVIEW OF SYSTEMS: Noncontributory. PHYSICAL EXAMINATION: Respiratory rate is 16, pulse rate of 85, temperature 98.2, blood pressure 98/49, O2 saturation on 3 L by nasal cannula is 100%. HEENT: Unremarkable except for redundant tissue in the posterior pharynx. Chest reveals decreased breath sounds. No clear wheeze. Cardiovascular system reveals an S1, S2. Abdomen is soft. There is trace to 1+ pedal edema. White count is 19.5 1000, hemoglobin 12. ABG showed a pH of 7.39, pCO2 of 41, PO2 of 140, bicarb of 24, O2 saturation of 99% on an FiO2 of 60%. Sodium is 131, potassium 4.2, chloride 94, bicarb 24, BUN 70, creatinine 2.24, glucose 146, AST 12, ALT 40, total protein 6.1. IMPRESSION: At this time: 1. Metabolic encephalopathy. 2. Acute renal failure in part due to prerenal azotemia. 3. Chronic obstructive pulmonary disease. 4. Obstructive sleep apnea relatively untreated. 5. Cor pulmonale. 6. History of pseudoseizures. 7. History of recurrent hypoglycemia. At this point in time, would keep him on bronchodilators, aerosolized steroids, IV steroids, GI and DVT prophylaxis. Blood sugar checks, BiPAP as needed and at night. The patient was counseled regarding his condition and this approach and has a fair understanding of our recommendations. MMODL / IJN: [id number] /
[2019-03-19] MEDS ORDERED: HEPARIN SODIUM,PORCINE 5,000 UNIT/ML 1 ML VIAL SQ SCH (21:00)
[2019-03-19] MEDS ORDERED: NON-FORMULARY DRUG (Naloxegol Oxalate [Movantik] 25 MG) PO SCH (21:00)
[2019-03-19 21:09] LABS: Glucose,Whole Blood 172 mg/dL (75-99)
[2019-03-19 21:20] VITALS: TEMP 97.8
[2019-03-19] MEDS: MELATONIN 5 MG TABLET PO SCH (21:21)
[2019-03-19] MEDS ORDERED: MELATONIN 5 MG TABLET PO SCH (22:30)
[2019-03-19] MEDS ORDERED: LORazepam 2 MG/ML INJ ONE (23:35)
[2019-03-19] MEDS ORDERED: LORazepam 2 MG/ML INJ IV STA (23:41)
[2019-03-20] MEDS: methylPREDNISolone SOD SUCCI 125 MG/2 ML VIAL IV SCH (00:12)
[2019-03-20 00:28] LABS: Glucose,Whole Blood 147 mg/dL (75-99)
[2019-03-20 02:00] VITALS: BP 107/61; PULSE 84; RESP 20
== END 2019-03-20 06:33 | disposition short-term general hospital (02) | DRG 682 ==
LOC: EC 17:31 → 3SCARD 19:51
PROVIDERS: ADMIT Family Medicine; ATTEND Family Medicine
DX: N17.9 Acute kidney failure, unspecified (principal); G93.41 Metabolic encephalopathy; E87.1 Hypo-osmolality and hyponatremia; I50.32 Chronic diastolic (congestive) heart failure; J44.1 Chronic obstructive pulmonary disease with (acute) exacerbation; Z68.42 Body mass index [BMI] 45.0-49.9, adult; I11.0 Hypertensive heart disease with heart failure; I27.81 Cor pulmonale (chronic); I50.812 Chronic right heart failure; E66.01 Morbid (severe) obesity due to excess calories; F25.9 Schizoaffective disorder, unspecified; M41.9 Scoliosis, unspecified; D72.829 Elevated white blood cell count, unspecified; E78.5 Hyperlipidemia, unspecified; D63.8 Anemia in other chronic diseases classified elsewhere; F41.0 Panic disorder [episodic paroxysmal anxiety]; G47.33 Obstructive sleep apnea (adult) (pediatric); K21.9 Gastro-esophageal reflux disease without esophagitis; K44.9 Diaphragmatic hernia without obstruction or gangrene; M19.90 Unspecified osteoarthritis, unspecified site; R26.2 Difficulty in walking, not elsewhere classified; F32.9 Major depressive disorder, single episode, unspecified; Z74.01 Bed confinement status; Z79.82 Long term (current) use of aspirin; Z79.899 Other long term (current) drug therapy; Z87.891 Personal history of nicotine dependence; Z98.84 Bariatric surgery status; Z88.1 Allergy status to other antibiotic agents; Z88.5 Allergy status to narcotic agent; Z88.0 Allergy status to penicillin; Z88.8 Allergy status to other drugs, medicaments and biological substances; Z86.718 Personal history of other venous thrombosis and embolism; Z85.828 Personal history of other malignant neoplasm of skin; Z86.711 Personal history of pulmonary embolism; Z96.659 Presence of unspecified artificial knee joint; Z96.651 Presence of right artificial knee joint; Z90.49 Acquired absence of other specified parts of digestive tract; Z86.14 Personal history of Methicillin resistant Staphylococcus aureus infection; Z80.1 Family history of malignant neoplasm of trachea, bronchus and lung
CPT/HCPCS: 36415; 36600; 51702; 71045; 80053; 81003; 82805; 83880; 84145; 85025; 85379; 87040; 93005; 93970; 94640; 94660; 94760; 99291

== ENCOUNTER 2019-04-13 16:26 | Inpatient (IN) | payer MEDICARE, BC ==
[2019-04-13 19:31] LABS: Glucose,Whole Blood 102 mg/dL (75-99)
[2019-04-13 19:42] LABS: HCT 40.1 % (39.0-53.0); HGB 12.6 gm/dL (13.0-17.5); MCH 29.2 pg (25.0-35.0); MCHC 31.4 g/dL (31.0-37.0); Mean Platelet Volume 6.3; Platelet Count 476 k/uL (150-450); RBC 4.31 m/uL (4.30-5.90); RDW 15.6 % (11.5-15.5); WBC 12.6 k/uL (3.8-10.6)
[2019-04-13] MEDS ORDERED: LORazepam 2 MG/ML INJ IV STA (19:46)
[2019-04-13 19:54] LABS: Anion Gap 10 mmol/L; Blood Urea Nitrogen 14 mg/dL (9-20); Calcium 10.4 mg/dL (8.4-10.2); Carbon Dioxide 28 mmol/L (22-30); Chloride 104 mmol/L (98-107); Glucose 108 mg/dL (74-99); Magnesium 1.6 mg/dL (1.6-2.3); Phosphorus 2.7 mg/dL (2.5-4.5); Potassium 3.7 mmol/L (3.5-5.1); Sodium 142 mmol/L (137-145)
[2019-04-13] MEDS ORDERED: NALOXONE 0.4 MG/ML 1 ML VIAL IV PRN (20:00)
[2019-04-13] MEDS ORDERED: ACETAMINOPHEN TAB 325 MG TAB PO PRN ×2 (20:00→21:15)
[2019-04-13] MEDS ORDERED: FAMOTIDINE 20 MG TAB PO SCH (21:00)
[2019-04-13] MEDS ORDERED: POLYETHYLENE GLYCOL 3350 17 GM POWD.PACK PO PRN (21:15)
[2019-04-13] MEDS ORDERED: IPRATROPIUM-ALBUTEROL 3 ML NEB INHALATION PRN (21:15)
[2019-04-13] MEDS ORDERED: IBUPROFEN 400 MG TAB PO PRN (21:15)
--- NOTE | 2019-04-13 22:11 | P.CNNES ---
History of Present Illness Consult date: 04/13/19 Requesting physician: Ralph Rondon Reason for Consult: Seizure Chief complaint: "I keep having pain which makes me go into a seizure" History of Present Illness: 58 RH male urgently consulted for recurrent seizures. Medical records at our facility from 2013 to present indicate patient has a h/o pseudoseizure. I was called by YOON Romeo at 199904/13/19 stating that patient had had a series of clinical events that looked epileptic. She had already administered lorazepam 2mg IV at 1946 and he continued to have clinical seizure-like activity that consisted of arching his back and being unresponsive. However, 20 minutes afterwards, RN called back and stated patient was up and awake and alert and conversing normally. Initial concern was raised about whether patient could be having a mix of epileptic and non-epileptic events and whether he might benefit from extended EEG monitoring that our facility does not provide. Call was made by hospitalist team Dr. Dickson who spoke with neurologist at [facility] where patient supposedly already had extended EEG monitoring and all his spells were non-epileptic. We do not have the records for confirmation yet, but per the neurologist at [facility], there was not much they could offer from a seizure standpoint. Per records review, it looks like patient has been evaluated by neurology at different facilities including [facility] and [facility], and all had cleared him from having epileptic seizure. Psychiatry was involved. In fact, patient is on an impressive list of psychotropics including lamotrigine, olanzapine, bupropion and buspirone. Patient also tells me that he was given alprazolam to take prn non-epileptic seizure. He states that his mood is not stabilized, and his pain is poorly controlled s/p multiple orthopedic surgeries. Patient states that one of his triggers of his seizure is severe pain. Patient admits that he is a recovering alcoholic and drug addict, but he would like his pain under better control with non-opioid meds. Of note, he was seen once by neurology at our facility in 05/2018. Note was reviewed. Consult at that time was for generalized weakness. Review of Systems I have performed a 14-point organ ROS with patient and pertinents are as per HPI. Neurologically, patient denies focal numbness/weakness, diplopia, amaurosis, facial droop, dysarthria, aphasia or bowel/bladder incontinence. He does c/o difficulty swallowing. Past Medical History Past Medical History: Asthma, Cancer, COPD, Deep Vein Thrombosis (DVT), GERD/Reflux, GI Bleed, Hyperlipidemia, Osteoarthritis (OA), Pneumonia, Pulmonary Embolus (PE), Renal Disease, Sleep Apnea/CPAP/BIPAP Additional Past Medical History / Comment(s): HYPOGLYCEMIA. NO C-PAP. DDD, SCOLIOSIS OF SPINE, SLEEPS IN RECLINER. HAVING . HX OF SKIN CANCER , Hiatal Hernia. Irregular HR in the past. DVT IN LEG, WENT TO LUNG - AFTER HIP SURG. BLOOD IN STOOL,RENAL DISEASE-STAGE 3," RETAINS FLUIDS " History of Any Multi-Drug Resistant Organisms: MRSA Date of last positivie culture/infection: AUG 2014 MDRO Source:: NASAL Past Surgical History: Appendectomy, Bariatric Surgery, Heart Catheterization, Hernia Repair, Joint Replacement, Orthopedic Surgery Additional Past Surgical History / Comment(s): RT ELBOW SURG X2, TOTAL RT HIP,ARTHROSCOPIC LT KNEE X2, RT ANKLE RECONSTRUCTIVE SURG, JANUARY 2014 GASTRIC SLEEVE, COLONOSCOPY'S. Basal Cell CA Face, Back. LT ING HERNIA Past Anesthesia/Blood Transfusion Reactions: Previous Problems w/ Anesthesia Additional Past Anesthesia/Blood Transfusion Reaction / Comment(s): STATES HE WAS TOLD HE WAS A DIFFICULT INTUBATION WITH GASTRIC SLEEVE SURGERY, Smoking Status: Former smoker - Past Family History Father Family Medical History: Cancer Additional Family Medical History / Comment(s): LUNG CA Medications and Allergies Home Medications Medication Instructions Recorded Confirmed Type Aspirin 81 mg PO DAILY 09/13/14 04/13/19 History Potassium Chloride [Klor-Con 20] 20 meq PO DAILY 09/13/14 04/13/19 History lamoTRIgine 150 mg PO BID 09/03/15 04/13/19 History Cilostazol [Pletal] 100 mg PO BID 06/12/18 04/13/19 History Gabapentin 600 mg PO TID 06/13/18 04/13/19 History buPROPion XL [Wellbutrin XL] 150 mg PO DAILY 06/13/18 04/13/19 History Cholecalciferol [Vitamin D3] 1,000 unit PO DAILY 02/02/19 04/13/19 History Ipratropium-Albuterol Nebulize 3 ml INHALATION RT-QID 02/02/19 04/13/19 History [Duoneb 0.5 mg-3 mg/3 ml Soln] Melatonin 5 mg PO HS 02/02/19 04/13/19 History Budesonide [Pulmicort Flexhaler] 1 puff INHALATION RT-BID 03/18/19 04/13/19 History Iron 15mg/1.5ml 45 mg PO DAILY 03/18/19 04/13/19 History Multivitamins, Thera [Multivitamin 1 tab PO DAILY 03/18/19 04/13/19 History (formulary)] OLANZapine [ZyPREXA] 10 mg PO DAILY 03/18/19 04/13/19 History Pantoprazole [Protonix] 40 mg PO DAILY 03/18/19 04/13/19 History Sucralfate [Carafate] 1 gm PO AC-TID 03/18/19 04/13/19 History busPIRone HCL 15 mg PO BID 03/18/19 04/13/19 History guaiFENesin [guaiFENesin Oral 200 mg PO Q6H PRN 03/18/19 04/13/19 History Solution] Acetaminophen Tab [Tylenol] 500 mg PO TID 04/13/19 04/13/19 History L.acidoph,Paracasei, B.lactis 1 cap PO BID 04/13/19 04/13/19 History [Probiotic] Magnesium Oxide [Mag-Ox] 400 mg PO BID 04/13/19 04/13/19 History Allergies Allergy/AdvReac Type Severity Reaction Status Date / Time codeine Allergy Severe Swelling Verified 03/18/19 19:04 OF THROAT WITH COUGH SYRUP chlorpheniramine Allergy Unknown Verified 03/18/19 19:04 febuxostat [From Uloric] Allergy Unknown Verified 04/13/19 21:29 phenylephrine Allergy Unknown Verified 03/18/19 19:04 piperacillin sodium Allergy Unknown Verified 03/18/19 19:04 [From Zosyn] tazobactam sodium Allergy Unknown Verified 03/18/19 19:04 [From Zosyn] Physical Examination - Vital Signs Vital Signs: Intake and Output 04/13/19 04/13/19 04/13/19 06:59 14:59 22:59 Other: Weight 204.117 kg Gen NAD Mostly cooperative Rambling HEENT NCAT Sclera without icterus No tongue lac O/P clear Neck Supple No carotid bruit Cor RRR no m/r/g Lungs Distant BS bilaterally Abd Soft Obese NT +BS Ext Warm to touch Neuro MS A+Ox4 Normal fluency and comprehension Able to follow all commands CN II-XII grossly intact no nystagmus Motor Normal bulk/tone No drift or tremors Strength 5/5 BUE 4-4+/5 with give-way weakness due to pain behavior in the BLE Sens Intact to LT x4 No neglect Coord No dysmetria as he grabs onto my hand with each of his DTRs 2+/4 sym throughout Toes mute bilaterally no ankle clonus Gait Deferred Results - Laboratory Findings CBC and BMP: 04/13/19 19:30 04/13/19 19:30 Abnormal Lab Findings: Abnormal Labs 04/13/19 04/13/19 04/13/19 19:20 19:30 19:30 WBC 12.6 H Hgb 12.6 L RDW 15.6 H Plt Count 476 H Glucose 108 H POC Glucose (mg/dL) 102 H Calcium 10.4 H Assessment and Plan Assessment: Non-epileptic seizure/pseudoseizure Plan: -Obtain neuro records from [facility] to ascertain that all his spells were non- epileptic and that we are not dealing with a mixed picture of epileptic +/- non- epileptic events, which can happen. But, based on the information we have so far and his clinical events in-house this evening, epileptic seizure appears less likely to be the case. -Immediate goal if he were to have another non-epileptic fit is his physical safety. -Lorazepam may be helpful but beyond 2mg x3 NOHEMI receptors will become saturated and its sedating efficacy will diminish. -Consider using other chemical restraints if absolutely necessary to ensure patient safety. -Valorie not load him on another AED such as PHT or LEV as we are dealing with non- epileptic events. -Hold bupropion, which at >=300mg/day can lower seizure threshold and cause actual epileptic seizure. -Consult psychiatry in am for psychotropic adjustment. -Pain management. According to patient, his severe pain triggers his non- epileptic events. -Cancel EEG here as he has already had extended EEG monitoring at [facility]. Records pending. Extensive discussions held with patient and also Agueda NETTLES and hospitalist team regarding my clinical impressions and recommendations. All questions answered. Time with Patient: Greater than 30 (Time spent in direct patient care, greater than 50% of which was spent in [id number] counseling and coordination of care: 70 minutes.)
[2019-04-13] MEDS ORDERED: LORazepam 2 MG/ML INJ IV PRN (22:30)
[2019-04-13 23:04] LABS: Glucose,Whole Blood 85 mg/dL (75-99)
[2019-04-13] MEDS: GABAPENTIN 300 MG CAP PO SCH (23:06)
[2019-04-13] MEDS: lamoTRIgine 100 MG TAB PO SCH (23:07)
[2019-04-13] MEDS ORDERED: LIDOCAINE URO-JET JELLY 2% 5 ML KIT URETHRAL ONE (23:24)
[2019-04-13 23:58] VITALS: BMI 61.0
--- NOTE | 2019-04-14 01:04 | P.GSCN ---
History of Present Illness Consult date: 04/14/19 Reason for Consult: Inability to void Requesting physician: Eldon Dickson History of present illness: The patient is a 58-year-old white male admitted for evaluation of seizures. An attempt was made to insert a Ferris catheter at a nursing facility prior to admission, which was unsuccessful and resulted in urethral bleeding. Due to his inability to void, attempts were made by the nursing staff here at [facility] to place a Ferris catheter but were unsuccessful. I am consulted for this reason. The patient is a vague historian, and it is unclear whether he has any relevant urologic history. However, he made it clear that he does not normally have an indwelling Ferris catheter, but has worn diapers in the past for urinary incontinence. Review of Systems - EENT Ears, nose, mouth and throat: Reports dysphagia - Genitourinary Reports incontinence Past Medical History Past Medical History: Asthma, Cancer, COPD, Diabetes Mellitus, Deep Vein Thrombosis (DVT), GERD/Reflux, GI Bleed, Hyperlipidemia, Osteoarthritis (OA), Pneumonia, Pulmonary Embolus (PE), Renal Disease, Sleep Apnea/CPAP/BIPAP Additional Past Medical History / Comment(s): HYPOGLYCEMIA. NO C-PAP. DDD, SCOLIOSIS OF SPINE, SLEEPS IN RECLINER. HAVING . HX OF SKIN CANCER , Hiatal Hernia. Irregular HR in the past. DVT IN LEG, WENT TO LUNG - AFTER HIP SURG. BLOOD IN STOOL,RENAL DISEASE-STAGE 3," RETAINS FLUIDS " History of Any Multi-Drug Resistant Organisms: MRSA Year Discovered:: AUG 2014 MDRO Source:: NASAL Past Surgical History: Appendectomy, Bariatric Surgery, Heart Catheterization, Hernia Repair, Joint Replacement, Orthopedic Surgery Additional Past Surgical History / Comment(s): RT ELBOW SURG X2, TOTAL RT HIP,ARTHROSCOPIC LT KNEE X2, RT ANKLE RECONSTRUCTIVE SURG, JANUARY 2014 GASTRIC SLEEVE, COLONOSCOPY'S. Basal Cell CA Face, Back. LT ING HERNIA Past Anesthesia/Blood Transfusion Reactions: Previous Problems w/ Anesthesia Additional Past Anesthesia/Blood Transfusion Reaction / Comm: STATES HE WAS TOLD HE WAS A DIFFICULT INTUBATION WITH GASTRIC SLEEVE SURGERY, Past Psychological History: Anxiety, Depression, Panic Disorder, Schizoaffective Disorder Additional Psychological History / Comment(s): STATES PARANOID AT TIMES, claustrophobic, states very nervous about having general anesthesia. Smoking Status: Former smoker Past Alcohol Use History: None Reported Additional Past Alcohol Use History / Comment(s): STARTED SMOKING AT AGE 15 QUIT SMOKING 1998, smoked 4 cigerettes- 1PPD FORMER ETOH ABUSE. Pt states QUIT 2012 Past Drug Use History: IV Drug Use Additional Drug Use History / Comment(s): PAST HX OF MARIJUANA USE, DENIES USE IN YEARS. - Past Family History Father Family Medical History: Cancer Additional Family Medical History / Comment(s): LUNG CA Medications and Allergies Home Medications Medication Instructions Recorded Confirmed Type Aspirin 81 mg PO DAILY 09/13/14 04/13/19 History Potassium Chloride [Klor-Con 20] 20 meq PO DAILY 09/13/14 04/13/19 History lamoTRIgine 150 mg PO BID 09/03/15 04/13/19 History Cilostazol [Pletal] 100 mg PO BID 06/12/18 04/13/19 History Gabapentin 600 mg PO TID 06/13/18 04/13/19 History buPROPion XL [Wellbutrin XL] 150 mg PO DAILY 06/13/18 04/13/19 History Cholecalciferol [Vitamin D3] 1,000 unit PO DAILY 02/02/19 04/13/19 History Ipratropium-Albuterol Nebulize 3 ml INHALATION RT-QID 02/02/19 04/13/19 History [Duoneb 0.5 mg-3 mg/3 ml Soln] Melatonin 5 mg PO HS 02/02/19 04/13/19 History Budesonide [Pulmicort Flexhaler] 1 puff INHALATION RT-BID 03/18/19 04/13/19 History Iron 15mg/1.5ml 45 mg PO DAILY 03/18/19 04/13/19 History Multivitamins, Thera [Multivitamin 1 tab PO DAILY 03/18/19 04/13/19 History (formulary)] OLANZapine [ZyPREXA] 10 mg PO DAILY 03/18/19 04/13/19 History Pantoprazole [Protonix] 40 mg PO DAILY 03/18/19 04/13/19 History Sucralfate [Carafate] 1 gm PO AC-TID 03/18/19 04/13/19 History busPIRone HCL 15 mg PO BID 03/18/19 04/13/19 History guaiFENesin [guaiFENesin Oral 200 mg PO Q6H PRN 03/18/19 04/13/19 History Solution] Acetaminophen Tab [Tylenol] 500 mg PO TID 04/13/19 04/13/19 History L.acidoph,Paracasei, B.lactis 1 cap PO BID 04/13/19 04/13/19 History [Probiotic] Magnesium Oxide [Mag-Ox] 400 mg PO BID 04/13/19 04/13/19 History Allergies Allergy/AdvReac Type Severity Reaction Status Date / Time codeine Allergy Severe Swelling Verified 03/18/19 19:04 OF THROAT WITH COUGH SYRUP chlorpheniramine Allergy Unknown Verified 03/18/19 19:04 febuxostat [From Uloric] Allergy Unknown Verified 04/13/19 21:29 phenylephrine Allergy Unknown Verified 03/18/19 19:04 piperacillin sodium Allergy Unknown Verified 03/18/19 19:04 [From Zosyn] tazobactam sodium Allergy Unknown Verified 03/18/19 19:04 [From Zosyn] Surgical - Exam - General well developed, well nourished, no distress - Respiratory normal respiratory effort - Abdomen Abdomen: soft, non tender, no guarding, no rigid, no rebound - Genitourinary normal penis with no external lesions, testicles non-tender Results - Labs 04/13/19 19:30 04/13/19 19:30 Abnormal Lab Results - Last 24 Hours (Table) 04/13/19 04/13/19 04/13/19 Range/Units 19:20 19:30 19:30 WBC 12.6 H (3.8-10.6) k/uL Hgb 12.6 L (13.0-17.5) gm/dL RDW 15.6 H (11.5-15.5) % Plt Count 476 H (150-450) k/uL Glucose 108 H (74-99) mg/dL POC Glucose (mg/dL) 102 H (75-99) mg/dL Calcium 10.4 H (8.4-10.2) mg/dL Diabetes panel 04/13/19 Range/Units 19:30 Sodium 142 (137-145) mmol/L Potassium 3.7 (3.5-5.1) mmol/L Chloride 104 (98-107) mmol/L Carbon Dioxide 28 (22-30) mmol/L BUN 14 (9-20) mg/dL Creatinine 0.69 (0.66-1.25) mg/dL Glucose 108 H (74-99) mg/dL Calcium 10.4 H (8.4-10.2) mg/dL Calcium panel 04/13/19 Range/Units 19:30 Calcium 10.4 H (8.4-10.2) mg/dL Phosphorus 2.7 (2.5-4.5) mg/dL Pituitary panel 04/13/19 Range/Units 19:30 Sodium 142 (137-145) mmol/L Potassium 3.7 (3.5-5.1) mmol/L Chloride 104 (98-107) mmol/L Carbon Dioxide 28 (22-30) mmol/L BUN 14 (9-20) mg/dL Creatinine 0.69 (0.66-1.25) mg/dL Glucose 108 H (74-99) mg/dL Calcium 10.4 H (8.4-10.2) mg/dL Adrenal panel 04/13/19 Range/Units 19:30 Sodium 142 (137-145) mmol/L Potassium 3.7 (3.5-5.1) mmol/L Chloride 104 (98-107) mmol/L Carbon Dioxide 28 (22-30) mmol/L BUN 14 (9-20) mg/dL Creatinine 0.69 (0.66-1.25) mg/dL Glucose 108 H (74-99) mg/dL Calcium 10.4 H (8.4-10.2) mg/dL Assessment and Plan (1) Urinary retention Current Visit: Yes Status: Acute Code(s): R33.9 - RETENTION OF URINE, UNSP ECIFIED SNOMED Code(s): 125464368 Plan: The penis was prepped and draped sterilely. 2% lidocaine gel was administered intraurethrally. An attempt to pass a 16-Danish coud Ferris catheter was unsuccessful, due to obstruction at the level of the proximal urethra. Next, filiforms were passed per urethra but could not be advanced into the bladder. Therefore, cystoscopy was performed and consequently an 18-Danish Ferris catheter was successfully placed. The catheter was irrigated and the bladder appeared to be free of clots. The catheter should be left to gravity drainage, and should remain in place for 1 week to allow the urethra to heal. Time with Patient: Greater than 30
--- NOTE | 2019-04-14 01:09 | P.OP ---
Date of Procedure: 04/14/19 Preoperative Diagnosis: Urinary retention Postoperative Diagnosis: Same Procedure(s) Performed: Cystoscopy, Ferris catheter insertion Anesthesia: local Surgeon: Harvey Cottrell Estimated Blood Loss (ml): 0 Pathology: none sent Condition: stable Disposition: PACU Indications for Procedure: The patient is unable to void. An attempt to pass a 16-Moldovan coud Ferris catheter was unsuccessful, due to obstruction at the level of the proximal urethra. Next, filiforms were passed per urethra but could not be advanced into the bladder. Therefore, cystoscopy will be performed. Operative Findings: Intraprostatic urethral false passage. Description of Procedure: The penis was prepped and draped sterilely. 2% lidocaine gel was administered intraurethrally. An attempt to pass a 16-Moldovan coud Ferris catheter was unsuccessful, due to obstruction at the level of the proximal urethra. Next, filiforms were passed per urethra but could not be advanced into the bladder. Therefore, the flexible cystoscope was used to perform cystourethroscopy. The anterior urethra appeared normal. Clot was noted within the prostatic urethra. The tip of the cystoscope was deflected anteriorly, and the cystoscope was advanced into the bladder. The urine within the bladder was bloody, thus limiting visualization. A 0.035 inch Glidewire was passed through the cystoscope, and coiled within the bladder. The scalpel was used to incise the tip of an 18-Moldovan Ferris catheter. The cystoscope was removed, and the catheter was passed over the wire and into the bladder. The catheter was irrigated and the bladder appeared to be free of clots. The catheter was left to gravity drainage.
[2019-04-14] MEDS: HEPARIN SODIUM,PORCINE 5,000 UNIT/ML 1 ML VIAL SQ SCH ×3 (01:15→19:41)
[2019-04-14] MEDS: FLUTICASONE 110 MCG INHALER INHALATION SCH ×2 (07:19→19:37)
[2019-04-14] MEDS ORDERED: PANTOPRAZOLE 40 MG TABLET PO SCH (07:30)
[2019-04-14] MEDS ORDERED: CILOSTAZOL 100 MG TAB PO SCH (09:00)
[2019-04-14] MEDS ORDERED: ASPIRIN 81 MG PO SCH (09:00)
[2019-04-14] MEDS ORDERED: busPIRone HCl 5 MG TAB PO SCH (09:00)
[2019-04-14] MEDS ORDERED: OLANZapine 10 MG TAB PO SCH (09:00)
[2019-04-14] MEDS ORDERED: MAGNESIUM HYDROXIDE 2,400 MG/10 ML CUP PO SCH (09:00)
[2019-04-14] MEDS ORDERED: LISINOPRIL 20 MG TAB PO SCH (09:00)
[2019-04-14 09:45] LABS: Basophils # (A) 0.1 k/uL (0-0.2); Basophils % (A) 1 %; Eosinophils # (A) 0.1 k/uL (0-0.7); Eosinophils % (A) 1 %; HCT 37.3 % (39.0-53.0); HGB 11.8 gm/dL (13.0-17.5); Lymphocytes # (A) 1.4 k/uL (1.0-4.8); Lymphocytes % (A) 12 %; MCH 29.2 pg (25.0-35.0); MCHC 31.8 g/dL (31.0-37.0); MCV 92.1 fL (80.0-100.0); Mean Platelet Volume 6.9; Monocytes # (A) 0.6 k/uL (0-1.0); Monocytes % (A) 6 %; Neutrophils # (A) 8.7 k/uL (1.3-7.7); Neutrophils % (A) 79 %; Platelet Count 420 k/uL (150-450); RBC 4.05 m/uL (4.30-5.90); RDW 15.9 % (11.5-15.5)
--- NOTE | 2019-04-14 09:52 | P.PN ---
Subjective Progress Note Date: 04/14/19 Principal diagnosis: Pseudoseizure Urology came in to put in Ferris. Patient has been grunting and otherwise non- verbal this morning. No new clinical events. Objective - Vital Signs Vital signs: Vital Signs Temp 98.8 F 04/14/19 07:50 Pulse 74 04/14/19 07:50 Resp 16 04/14/19 07:50 BP 139/74 04/14/19 07:50 Pulse Ox 91 L 04/14/19 07:50 Intake & Output 04/13/19 04/14/19 04/14/19 18:59 06:59 18:59 Intake Total 1000 Output Total 375 Balance 625 Weight 204.117 kg Intake: Intake, IV Titration 1000 Amount Sodium Chloride 0.9% 1, 1000 000 ml @ 100 mls/hr IV . Q10H YUN Rx#:[id number] Output: Urine 375 Other: Voiding Method Indwelling Catheter # Bowel Movements 2 - Exam Gen NAD MS Awake and alert tracks examiner on command grunting throughout exam non- verbal otherwise further detailed language function cannot be assessed CN II-XII grossly intact no nystagmus Motor Normal bulk Some paratonia No tremors, asterixis, myoclonus or other adventitious movements HUERTAS x4 Sens Grimaces to nailbed stim x4 No obvious neglect Coord No apparent ocular dysmetria Appendicular coordination cannot be tested due to lack of cooperation DTRs 2+/4 sym throughout Gait Deferred - Labs CBC & Chem 7: 04/14/19 09:11 04/13/19 19:30 Labs: Abnormal Lab Results - Last 24 Hours (Table) 04/13/19 04/13/19 04/13/19 Range/Units 19:20 19:30 19:30 WBC 12.6 H (3.8-10.6) k/uL RBC (4.30-5.90) m/uL Hgb 12.6 L (13.0-17.5) gm/dL Hct (39.0-53.0) % RDW 15.6 H (11.5-15.5) % Plt Count 476 H (150-450) k/uL Neutrophils # (1.3-7.7) k/uL Glucose 108 H (74-99) mg/dL POC Glucose (mg/dL) 102 H (75-99) mg/dL Calcium 10.4 H (8.4-10.2) mg/dL 04/14/19 Range/Units 09:11 WBC 11.0 H (3.8-10.6) k/uL RBC 4.05 L (4.30-5.90) m/uL Hgb 11.8 L (13.0-17.5) gm/dL Hct 37.3 L (39.0-53.0) % RDW 15.9 H (11.5-15.5) % Plt Count (150-450) k/uL Neutrophils # 8.7 H (1.3-7.7) k/uL Glucose (74-99) mg/dL POC Glucose (mg/dL) (75-99) mg/dL Calcium (8.4-10.2) mg/dL Assessment and Plan Assessment: Non-epileptic seizure/pseudoseizure Plan: -Await neuro records from [facility] to ascertain that all his spells were non- epileptic and that we are not dealing with a mixed picture of epileptic +/- non- epileptic events, which can happen. But, based on the information we have so far and his clinical events in-house this evening, epileptic seizure appears less likely to be the case. -Immediate goal if he were to have another non-epileptic fit is his physical safety. -Lorazepam may be helpful but beyond 2mg x3 NOHEMI receptors will become saturated and its sedating efficacy will diminish. -Consider using other chemical restraints if absolutely necessary to ensure patient safety. -Valorie not load him on another AED such as PHT or LEV as we are dealing with non- epileptic events. -Hold bupropion, which at >=300mg/day can lower seizure threshold and cause actual epileptic seizure. -Consult psychiatry for psychotropic adjustment. -Pain management. According to patient, his severe pain triggers his non- epileptic events. -Cancel EEG here as he has already had extended EEG monitoring at [facility]. Records pending. d/w RN and primary team. All questions answered. Time with Patient: Less than 30 (Time spent in direct patient care, greater than 50% of which was spent in [id number] counseling and coordination of care: 25 minutes.)
[2019-04-14 10:01] LABS: Anion Gap 7 mmol/L; Blood Urea Nitrogen 14 mg/dL (9-20); Calcium 9.7 mg/dL (8.4-10.2); Carbon Dioxide 29 mmol/L (22-30); Chloride 106 mmol/L (98-107); Glucose 85 mg/dL (74-99); Magnesium 1.4 mg/dL (1.6-2.3); Phosphorus 2.9 mg/dL (2.5-4.5); Potassium 3.7 mmol/L (3.5-5.1); Sodium 142 mmol/L (137-145)
--- NOTE | 2019-04-14 11:20 | P.HPIM ---
History of Present Illness patient is a 58-year-old male was transferred here because of recurrent seizures. Shortly after arrival to the hospital nursing staff reported 3 episodes of seizures with a tonic activity and a tonic-clonic activity rolling of eyes and the unresponsiveness briefly without any significant postictal confusion patient was given Ativan 2 mg. Patient has a lengthy history of pseudoseizures patient was recently hospitalized in [facility] underwent extensive workup for source pseudoseizures I did discuss with the [facility] physician as today as initially the plan was to transfer him as recommended by the neurologist here. After discussing with [facility] neurologist patient underwent extensive evaluation about a month ago and finally diagnosed with pseudoseizures and off his seizures were actually epileptiform. Patient has an extended EEG monitoring. No further benefit in transferring the patient because of that reason patient was not transferred same thing was informed to the neurologist and we are closely monitoring him one-on-one. Patient will need psychiatric evaluation may be placement and to psychiatric floor. Patient has history of COPD not in acute exacerbation. Patient is also on bupropion all the lower dose will discontinue that. Patient stated to the neurologist that his a trigger for seizures severe pain although didn't answer any of my questions patientis nonverbal to me. Which I believe is mostly psychosomatic. Patient apparently is a recovering alcohol addict as per the dictation from neurologist from yesterday. Review of Systems unable to obtain Past Medical History Past Medical History: Asthma, Cancer, COPD, Diabetes Mellitus, Deep Vein Thrombosis (DVT), GERD/Reflux, GI Bleed, Hyperlipidemia, Osteoarthritis (OA), Pneumonia, Pulmonary Embolus (PE), Renal Disease, Sleep Apnea/CPAP/BIPAP Additional Past Medical History / Comment(s): HYPOGLYCEMIA. NO C-PAP. DDD, SCOLIOSIS OF SPINE, SLEEPS IN RECLINER. HAVING . HX OF SKIN CANCER , Hiatal Hernia. Irregular HR in the past. DVT IN LEG, WENT TO LUNG - AFTER HIP SURG. BLOOD IN STOOL,RENAL DISEASE-STAGE 3," RETAINS FLUIDS " History of Any Multi-Drug Resistant Organisms: MRSA Date of last positivie culture/infection: AUG 2014 MDRO Source:: NASAL Past Surgical History: Appendectomy, Bariatric Surgery, Heart Catheterization, Hernia Repair, Joint Replacement, Orthopedic Surgery Additional Past Surgical History / Comment(s): RT ELBOW SURG X2, TOTAL RT HIP,ARTHROSCOPIC LT KNEE X2, RT ANKLE RECONSTRUCTIVE SURG, JANUARY 2014 GASTRIC SLEEVE, COLONOSCOPY'S. Basal Cell CA Face, Back. LT ING HERNIA Past Anesthesia/Blood Transfusion Reactions: Previous Problems w/ Anesthesia Additional Past Anesthesia/Blood Transfusion Reaction / Comment(s): STATES HE WAS TOLD HE WAS A DIFFICULT INTUBATION WITH GASTRIC SLEEVE SURGERY, Past Psychological History: Anxiety, Depression, Panic Disorder, Schizoaffective Disorder Additional Psychological History / Comment(s): STATES PARANOID AT TIMES, claustrophobic, states very nervous about having general anesthesia. Smoking Status: Former smoker Past Alcohol Use History: None Reported Additional Past Alcohol Use History / Comment(s): STARTED SMOKING AT AGE 15 QUIT SMOKING 1998, smoked 4 cigerettes- 1PPD FORMER ETOH ABUSE. Pt states QUIT 2012 Past Drug Use History: IV Drug Use Additional Drug Use History / Comment(s): PAST HX OF MARIJUANA USE, DENIES USE IN YEARS. - Past Family History Father Family Medical History: Cancer Additional Family Medical History / Comment(s): LUNG CA Medications and Allergies Home Medications Medication Instructions Recorded Confirmed Type Aspirin 81 mg PO DAILY 09/13/14 04/13/19 History Potassium Chloride [Klor-Con 20] 20 meq PO DAILY 09/13/14 04/13/19 History lamoTRIgine 150 mg PO BID 09/03/15 04/13/19 History Cilostazol [Pletal] 100 mg PO BID 06/12/18 04/13/19 History Gabapentin 600 mg PO TID 06/13/18 04/13/19 History buPROPion XL [Wellbutrin XL] 150 mg PO DAILY 06/13/18 04/13/19 History Cholecalciferol [Vitamin D3] 1,000 unit PO DAILY 02/02/19 04/13/19 History Ipratropium-Albuterol Nebulize 3 ml INHALATION RT-QID 02/02/19 04/13/19 History [Duoneb 0.5 mg-3 mg/3 ml Soln] Melatonin 5 mg PO HS 02/02/19 04/13/19 History Budesonide [Pulmicort Flexhaler] 1 puff INHALATION RT-BID 03/18/19 04/13/19 History Iron 15mg/1.5ml 45 mg PO DAILY 03/18/19 04/13/19 History Multivitamins, Thera [Multivitamin 1 tab PO DAILY 03/18/19 04/13/19 History (formulary)] OLANZapine [ZyPREXA] 10 mg PO DAILY 03/18/19 04/13/19 History Pantoprazole [Protonix] 40 mg PO DAILY 03/18/19 04/13/19 History Sucralfate [Carafate] 1 gm PO AC-TID 03/18/19 04/13/19 History busPIRone HCL 15 mg PO BID 03/18/19 04/13/19 History guaiFENesin [guaiFENesin Oral 200 mg PO Q6H PRN 03/18/19 04/13/19 History Solution] Acetaminophen Tab [Tylenol] 500 mg PO TID 04/13/19 04/13/19 History L.acidoph,Paracasei, B.lactis 1 cap PO BID 04/13/19 04/13/19 History [Probiotic] Magnesium Oxide [Mag-Ox] 400 mg PO BID 04/13/19 04/13/19 History Allergies Allergy/AdvReac Type Severity Reaction Status Date / Time codeine Allergy Severe Swelling Verified 03/18/19 19:04 OF THROAT WITH COUGH SYRUP chlorpheniramine Allergy Unknown Verified 03/18/19 19:04 febuxostat [From Uloric] Allergy Unknown Verified 04/13/19 21:29 phenylephrine Allergy Unknown Verified 03/18/19 19:04 piperacillin sodium Allergy Unknown Verified 03/18/19 19:04 [From Zosyn] tazobactam sodium Allergy Unknown Verified 03/18/19 19:04 [From Zosyn] Physical Exam Vitals: Vital Signs Temp Pulse Resp BP Pulse Ox 04/14/19 07:50 98.8 F 74 16 139/74 91 L 04/14/19 04:07 98.6 F 81 19 143/74 94 L 04/13/19 19:25 98.4 F 71 20 144/80 99 Intake and Output 04/13/19 04/14/19 04/14/19 22:59 06:59 14:59 Intake Total 200 800 Output Total 375 Balance 200 425 Intake: Intake, IV Titration 200 800 Amount Sodium Chloride 0.9% 1, 200 800 000 ml @ 100 mls/hr IV . Q10H [facility] Rx#:[id number] Output: Urine 375 Other: Voiding Method Indwelling Catheter # Bowel Movements 2 Weight 204.117 kg PHYSICAL EXAMINATION: GENERAL: The patient is alert aaphasic and unable to obtain any history from the patient, not in any acute distress. obese HEENT: Pupils are round and equally reacting to light. EOMI. No scleral icterus. No conjunctival pallor. Normocephalic, atraumatic. No pharyngeal erythema. No thyromegaly. CARDIOVASCULAR: S1 and S2 present. No murmurs, rubs, or gallops. PULMONARY: Chest is clear to auscultation, no wheezing or crackles. ABDOMEN: Soft, nontender, nondistended, normoactive bowel sounds. No palpable organomegaly. MUSCULOSKELETAL: No joint swelling or deformity. EXTREMITIES: No cyanosis, clubbing, or pedal edema. NEUROLOGICAL: unable to assess as patient doesn't follow commands when I evaluated the patient and please refer to neurologist dictation for further details SKIN: No rashes. Results CBC & Chem 7: 04/14/19 09:11 04/14/19 09:11 Labs: Abnormal Lab Results - Last 24 Hours (Table) 04/13/19 04/13/19 04/13/19 Range/Units 19:20 19:30 19:30 WBC 12.6 H (3.8-10.6) k/uL RBC (4.30-5.90) m/uL Hgb 12.6 L (13.0-17.5) gm/dL Hct (39.0-53.0) % RDW 15.6 H (11.5-15.5) % Plt Count 476 H (150-450) k/uL Neutrophils # (1.3-7.7) k/uL Glucose 108 H (74-99) mg/dL POC Glucose (mg/dL) 102 H (75-99) mg/dL Calcium 10.4 H (8.4-10.2) mg/dL Magnesium (1.6-2.3) mg/dL 04/14/19 04/14/19 Range/Units 09:11 09:11 WBC 11.0 H (3.8-10.6) k/uL RBC 4.05 L (4.30-5.90) m/uL Hgb 11.8 L (13.0-17.5) gm/dL Hct 37.3 L (39.0-53.0) % RDW 15.9 H (11.5-15.5) % Plt Count (150-450) k/uL Neutrophils # 8.7 H (1.3-7.7) k/uL Glucose (74-99) mg/dL POC Glucose (mg/dL) (75-99) mg/dL Calcium (8.4-10.2) mg/dL Magnesium 1.4 L (1.6-2.3) mg/dL Thrombosis Risk Factor Assmnt - Choose All That Apply Any of the Below Risk Factors Present?: Yes Each Factor Represents 1 point: Age 41-60 years Thrombosis Risk Factor Assessment Total Risk Factor Score: 1 Thrombosis Risk Factor Assessment Level: Low Risk Assessment and Plan Plan: -seizures: Appear to be pseudoseizures underwent extensive workup no further intervention is necessary we will put in safety measures in place and patient whenever appropriate will be transferred to psychiatric floor medically cleared to be discharged psychiatric floor. Bupropion will be discontinued COPD without any acute exacerbation - leukocytosis reactive -hypomagnesemia magnesium will be supplementedsecondary to chronic alcoholism -hypertension continue lisinopril 40 mg -Peripheral neuropathy continue with gabapentin -gastroesophageal reflux disease -History of PE in the past not on any anti-correlation at this time -Sleep apnea continue with CPAP machine -Schizoaffective disorder multiple other psychiatric issues: Management as per psychiatric psychiatry was consulted Zyprexa laminectomy will be continued limited is basically for mood stabilization in his situation. -Morbid obesity. Patient will benefit from a psychiatric evaluation and possibly inpatient psychiatric floor. Patient is medically stable to be discharged at this time.
--- NOTE | 2019-04-14 12:43 | P.CN ---
Psychiatric Consult - . Consult date: 04/14/19 Consult:: 04/14/19 11:43 psych meds Assessment and Plan Assessment: This is a patient who is a 58-year-old male was transferred here because of recurrent seizures. Shortly after arrival to the hospital nursing staff reported 3 episodes of seizures with a tonic activity and a tonic-clonic activity rolling of eyes and the unresponsiveness briefly without any significant postictal confusion patient was given Ativan 2 mg. Patient has a lengthy history of pseudoseizures patient was recently hospitalized in [facility] underwent extensive workup for source pseudoseizures I did discuss with the [facility] physician as today as initially the plan was to transfer him as recommended by the neurologist here. After discussing with [facility] neurologist patient underwent extensive evaluation about a month ago and finally diagnosed with pseudoseizures and off his seizures were actually epileptiform. Patient has an extended EEG monitoring. No further benefit in transferring the patient because of that reason patient was not transferred same thing was informed to the neurologist and we are closely monitoring him one-on-one. Patient will need psychiatric evaluation may be placement and to psychiatric floor. Patient has history of COPD not in acute exacerbation. Patient is also on bupropion all the lower dose will discontinue that. Patient stated to the neurologist that his a trigger for seizures severe pain although didn't answer any of my questions patients nonverbal to me. Which I believe is mostly psychosomatic. Patient apparently is a recovering alcohol addict as per the dictation from neurologist from yesterday. Past Medical History Past Medical History: Asthma, Cancer, COPD, Diabetes Mellitus, Deep Vein Thrombosis (DVT), GERD/Reflux, GI Bleed, Hyperlipidemia, Osteoarthritis (OA), Pneumonia, Pulmonary Embolus (PE), Renal Disease, Sleep Apnea/CPAP/BIPAP Additional Past Medical History / Comment(s): HYPOGLYCEMIA. NO C-PAP. DDD, SCOLIOSIS OF SPINE, SLEEPS IN RECLINER. HAVING . HX OF SKIN CANCER , Hiatal Hernia. Irregular HR in the past. DVT IN LEG, WENT TO LUNG - AFTER HIP SURG. BLOOD IN STOOL,RENAL DISEASE-STAGE 3," RETAINS FLUIDS " History of Any Multi-Drug Resistant Organisms: MRSA Date of last positivie culture/infection: AUG 2014 MDRO Source:: NASAL Past Surgical History: Appendectomy, Bariatric Surgery, Heart Catheterization, Hernia Repair, Joint Replacement, Orthopedic Surgery Additional Past Surgical History / Comment(s): RT ELBOW SURG X2, TOTAL RT HIP,ARTHROSCOPIC LT KNEE X2, RT ANKLE RECONSTRUCTIVE SURG, JANUARY 2014 GASTRIC SLEEVE, COLONOSCOPY'S. Basal Cell CA Face, Back. LT ING HERNIA Past Anesthesia/Blood Transfusion Reactions: Previous Problems w/ Anesthesia Additional Past Anesthesia/Blood Transfusion Reaction / Comment(s): STATES HE WAS TOLD HE WAS A DIFFICULT INTUBATION WITH GASTRIC SLEEVE SURGERY, Past Psychological History: Anxiety, Depression, Panic Disorder, Schizoaffective Disorder Additional Psychological History / Comment(s): STATES PARANOID AT TIMES, claustrophobic, states very nervous about having general anesthesia. Smoking Status: Former smoker Past Alcohol Use History: None Reported Additional Past Alcohol Use History / Comment(s): STARTED SMOKING AT AGE 15 QUIT SMOKING 1998, smoked 4 cigerettes- 1PPD FORMER ETOH ABUSE. Pt states QUIT 2012 Past Drug Use History: IV Drug Use Additional Drug Use History / Comment(s): PAST HX OF MARIJUANA USE, DENIES USE IN YEARS. - Past Family History Father Family Medical History: Cancer Additional Family Medical History / Comment(s): LUNG CA Medications and Allergies Home Medications Medication Instructions Recorded Confirmed Type Aspirin 81 mg PO DAILY 09/13/14 04/13/19 History Potassium Chloride [Klor-Con 20] 20 meq PO DAILY 09/13/14 04/13/19 History lamoTRIgine 150 mg PO BID 09/03/15 04/13/19 History Cilostazol [Pletal] 100 mg PO BID 06/12/18 04/13/19 History Gabapentin 600 mg PO TID 06/13/18 04/13/19 History buPROPion XL [Wellbutrin XL] 150 mg PO DAILY 06/13/18 04/13/19 History Cholecalciferol [Vitamin D3] 1,000 unit PO DAILY 02/02/19 04/13/19 History Ipratropium-Albuterol Nebulize 3 ml INHALATION RT-QID 02/02/19 04/13/19 History [Duoneb 0.5 mg-3 mg/3 ml Soln] Melatonin 5 mg PO HS 02/02/19 04/13/19 History Budesonide [Pulmicort Flexhaler] 1 puff INHALATION RT-BID 03/18/19 04/13/19 History Iron 15mg/1.5ml 45 mg PO DAILY 03/18/19 04/13/19 History Multivitamins, Thera [Multivitamin 1 tab PO DAILY 03/18/19 04/13/19 History (formulary)] OLANZapine [ZyPREXA] 10 mg PO DAILY 03/18/19 04/13/19 History Pantoprazole [Protonix] 40 mg PO DAILY 03/18/19 04/13/19 History Sucralfate [Carafate] 1 gm PO AC-TID 03/18/19 04/13/19 History busPIRone HCL 15 mg PO BID 03/18/19 04/13/19 History guaiFENesin [guaiFENesin Oral 200 mg PO Q6H PRN 03/18/19 04/13/19 History Solution] Acetaminophen Tab [Tylenol] 500 mg PO TID 04/13/19 04/13/19 History L.acidoph,Paracasei, B.lactis 1 cap PO BID 04/13/19 04/13/19 History [Probiotic] Magnesium Oxide [Mag-Ox] 400 mg PO BID 04/13/19 04/13/19 History Allergies Allergy/AdvReac Type Severity Reaction Status Date / Time codeine Allergy Severe Swelling Verified 03/18/19 19:04 OF THROAT WITH COUGH SYRUP chlorpheniramine Allergy Unknown Verified 03/18/19 19:04 febuxostat [From Uloric] Allergy Unknown Verified 04/13/19 21:29 phenylephrine Allergy Unknown Verified 03/18/19 19:04 piperacillin sodium Allergy Unknown Verified 03/18/19 19:04 [From Zosyn] tazobactam sodium Allergy Unknown Verified 03/18/19 19:04 [From Zosyn] Physical Exam Vitals: Vital Signs Temp Pulse Resp BP Pulse Ox 04/14/19 07:50 98.8 F 74 16 139/74 91 L 04/14/19 04:07 98.6 F 81 19 143/74 94 L 04/13/19 19:25 98.4 F 71 20 144/80 99 Mental status examination: He was unable to participate in any mental status examination because he was grunting and could not answer any of the questions. I have little to offer in regards to his psychiatric meds and his condition. The literature states that people are in psychogenic or conversion or or malingering they will stay conve rted. There is one off crack and manic which is to stop his Wellbutrin because it has been noted in the past to have seizure-like activity but aren't be highly doubtful since he is on gabapentin as well as Lamictal. After talking with the nurse he's not been talking all day thus I have little to offer. If this is a psychogenic fugue I have little to offer. These usually go away on their own and since he has a diagnosis of pseudoseizure he is most likely not to get better in the hospital. Treatment Treatment for pseudoseizures varies considerably and will often focus on managing the symptoms of any mental health conditions or other stress factors. In general, some treatments that may be effective for treating PNES include: individual or family counseling cognitive behavioral therapy (CBT) relaxation techniques behavioral therapy eye movement desensitization and reprocessing (EMDR) therapy, for traumatic memories Thank you for the consult Mike Oakley D.O. 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
--- NOTE | 2019-04-14 13:33 | P.DS ---
Providers Date of admission: 04/13/19 18:43 Attending physician: Eldon Dickson Consults: 04/13/19 19:39 Consult Physician Stat Consulting Provider: Blair Elizondo Consult Reason/Comments: seizures, eeg Do you want consulting provider notified?: Yes Placement Type Exists?: Yes 04/13/19 22:30 Consult Physician Routine Consulting Provider: Mike Oakley Consult Reason/Comments: Psych history and the doctors think seizures maybe psych related Do you want consulting provider notified?: Yes, Notify in am 04/13/19 23:35 Consult Physician Stat Consulting Provider: Harvey Cottrell Consult Reason/Comments: unable to insert vidales Do you want consulting provider notified?: Already Contacted Primary care physician: Eldon Dickson Hospital Course: patient was admitted the for seizures which was admitted through seizures patient was a valid by neurology and psychiatry.. Psychiatric please patient has a conversion disorder or malingering and the no further recommendations from that perspective patient the LAD benefit from inpatient hospitalization as per psychiatry. No further intervention can be done as per the neurology as well patient will be [facility]. Patient apparently will need cognitive behavioral therapy as an outpatient. Plan - Discharge Summary Discharge Rx Participant: Yes New Discharge Prescriptions: Continue Aspirin 81 mg PO DAILY lamoTRIgine 150 mg PO BID Cilostazol [Pletal] 100 mg PO BID Gabapentin 600 mg PO TID Ipratropium-Albuterol Nebulize [Duoneb 0.5 mg-3 mg/3 ml Soln] 3 ml INHALATION RT-QID Cholecalciferol [Vitamin D3 (25 Mcg = 1000 Iu)] 1,000 unit PO DAILY Melatonin 5 mg PO HS Pantoprazole [Protonix] 40 mg PO DAILY Budesonide [Pulmicort Flexhaler] 1 puff INHALATION RT-BID Multivitamins, Thera [Multivitamin (formulary)] 1 tab PO DAILY Iron 15mg/1.5ml 45 mg PO DAILY guaiFENesin [guaiFENesin Oral Solution] 200 mg PO Q6H PRN PRN Reason: Cough busPIRone HCL 15 mg PO BID Sucralfate [Carafate] 1 gm PO AC-TID OLANZapine [ZyPREXA] 10 mg PO DAILY Magnesium Oxide [Mag-Ox] 400 mg PO BID L.acidoph,Paracasei, B.lactis [Probiotic] 1 cap PO BID Acetaminophen Tab [Tylenol] 500 mg PO TID Discontinued Potassium Chloride [Klor-Con 20] 20 meq PO DAILY buPROPion XL [Wellbutrin XL] 150 mg PO DAILY Discharge Medication List Aspirin 81 mg PO DAILY 09/13/14 [History] lamoTRIgine 150 mg PO BID 09/03/15 [History] Cilostazol [Pletal] 100 mg PO BID 06/12/18 [History] Gabapentin 600 mg PO TID 06/13/18 [History] Cholecalciferol [Vitamin D3 (25 Mcg = 1000 Iu)] 1,000 unit PO DAILY 02/02/19 [History] Ipratropium-Albuterol Nebulize [Duoneb 0.5 mg-3 mg/3 ml Soln] 3 ml INHALATION RT-QID 02/02/19 [History] Melatonin 5 mg PO HS 02/02/19 [History] Budesonide [Pulmicort Flexhaler] 1 puff INHALATION RT-BID 03/18/19 [History] Iron 15mg/1.5ml 45 mg PO DAILY 03/18/19 [History] Multivitamins, Thera [Multivitamin (formulary)] 1 tab PO DAILY 03/18/19 [History] OLANZapine [ZyPREXA] 10 mg PO DAILY 03/18/19 [History] Pantoprazole [Protonix] 40 mg PO DAILY 03/18/19 [History] Sucralfate [Carafate] 1 gm PO AC-TID 03/18/19 [History] busPIRone HCL 15 mg PO BID 03/18/19 [History] guaiFENesin [guaiFENesin Oral Solution] 200 mg PO Q6H PRN 03/18/19 [History] Acetaminophen Tab [Tylenol] 500 mg PO TID 04/13/19 [History] L.acidoph,Paracasei, B.lactis [Probiotic] 1 cap PO BID 04/13/19 [History] Magnesium Oxide [Mag-Ox] 400 mg PO BID 04/13/19 [History] Follow up Appointment(s)/Referral(s): [facility] [NON-STAFF] - As Needed Discharge Disposition: HOME SELF-CARE
[2019-04-14] MEDS: SUCRALFATE 1 GM TAB PO SCH ×3 (19:38→19:42)
[2019-04-14] MEDS: SODIUM CHLORIDE 0.9% 1,000 ML IV SCH ×2 (19:38→19:42)
[2019-04-14] MEDS: lamoTRIgine 100 MG TAB PO SCH (19:40)
[2019-04-14] MEDS: GABAPENTIN 300 MG CAP PO SCH ×2 (19:40→19:41)
[2019-04-14] MEDS: MAGNESIUM SULFATE-D5W PMX 1 GM in DEXTROSE/WATER 1 100ML.BAG IVPB SCH ×2 (19:41→19:42)
[2019-04-14 19:43] VITALS: BP 153/78; PULSE 69; RESP 18; TEMP 98.7
== END 2019-04-14 21:17 | DRG 880 ==
LOC: 4SSUR 18:43
PROVIDERS: ADMIT Internal Medicine; ATTEND Internal Medicine
PROC: 0T9B80Z Drainage of Bladder with Drainage Device, Via Natural or Artificial Opening Endoscopic (ICD-10-PCS; principal; 2019-04-14)
DX: F44.5 Conversion disorder with seizures or convulsions (principal); Z68.44 Body mass index [BMI] 60.0-69.9, adult; F10.21 Alcohol dependence, in remission; F25.9 Schizoaffective disorder, unspecified; F32.9 Major depressive disorder, single episode, unspecified; F40.240 Claustrophobia; D72.829 Elevated white blood cell count, unspecified; E11.9 Type 2 diabetes mellitus without complications; E66.01 Morbid (severe) obesity due to excess calories; E78.5 Hyperlipidemia, unspecified; E83.42 Hypomagnesemia; F41.0 Panic disorder [episodic paroxysmal anxiety]; G47.30 Sleep apnea, unspecified; E11.40 Type 2 diabetes mellitus with diabetic neuropathy, unspecified; I10 Essential (primary) hypertension; J44.9 Chronic obstructive pulmonary disease, unspecified; K21.9 Gastro-esophageal reflux disease without esophagitis; M41.9 Scoliosis, unspecified; N36.5 Urethral false passage; Z76.5 Malingerer [conscious simulation]; Z79.02 Long term (current) use of antithrombotics/antiplatelets; Z79.82 Long term (current) use of aspirin; Z79.899 Other long term (current) drug therapy; Z79.51 Long term (current) use of inhaled steroids; Z80.1 Family history of malignant neoplasm of trachea, bronchus and lung; Z85.828 Personal history of other malignant neoplasm of skin; Z86.711 Personal history of pulmonary embolism; Z86.718 Personal history of other venous thrombosis and embolism; Z87.891 Personal history of nicotine dependence; Z88.5 Allergy status to narcotic agent; Z88.0 Allergy status to penicillin; Z88.8 Allergy status to other drugs, medicaments and biological substances; Z87.19 Personal history of other diseases of the digestive system; Z87.01 Personal history of pneumonia (recurrent); Z86.14 Personal history of Methicillin resistant Staphylococcus aureus infection; Z96.641 Presence of right artificial hip joint; Z90.3 Acquired absence of stomach [part of]; R32 Unspecified urinary incontinence
CPT/HCPCS: 80048; 83605; 83735; 84100; 85025; 85027

== ENCOUNTER 2019-07-12 19:14 | Emergency (ER) | payer MEDICARE, BC ==
[2019-07-12 19:24] VITALS: RESP 18; TEMP 98
[2019-07-12] MEDS ORDERED: SODIUM CHLORIDE 0.9% 500 ML 500 ML IV STA (20:12)
[2019-07-12] MEDS ORDERED: KETOROLAC 30 MG/ML 1 ML VIAL IVP STA (20:12)
--- NOTE | 2019-07-12 20:24 | ED ---
Abdominal Pain HPI - General Chief Complaint: Abdominal Pain Stated Complaint: Abd pain Time Seen by Provider: 07/12/19 19:26 Source: patient, EMS Mode of arrival: EMS - History of Present Illness Initial Comments: 58-year-old male patient with multiple complex medical problems, recently discharged from rehab facility, presents to the emergency department today for evaluation of generalized abdominal pain and cramping. Patient states he is also been having diarrhea. States his been having symptoms for the last 6 weeks. Patient states he did test negative for C. diff 3 weeks ago but has had in the past. Patient states he does have a history of colitis as well this pain feels worse. Patient states his abdomen is quite bloated. Denies any fever or chills. States he has been nauseated but denies any vomiting. He was able tolerate eating this morning with states his appetite is diminished. Denies any weight loss. Denies any hematochezia or melena. Patient denies any recent rash, shortness breath, chest pain, back pain, numbness, tingling, dizziness, weakness, hematuria, dysuria, urinary urgency, urinary frequency, headache, visual changes, or any other complaints. - Related Data Home Medications Medication Instructions Recorded Confirmed Aspirin 81 mg PO DAILY 09/13/14 04/13/19 lamoTRIgine 150 mg PO BID 09/03/15 04/13/19 Cilostazol [Pletal] 100 mg PO BID 06/12/18 04/13/19 Cholecalciferol [Vitamin D3 (25 1,000 unit PO DAILY 02/02/19 04/13/19 Mcg = 1000 Iu)] Ipratropium-Albuterol Nebulize 3 ml INHALATION RT-QID 02/02/19 04/13/19 [Duoneb 0.5 mg-3 mg/3 ml Soln] Melatonin 5 mg PO HS 02/02/19 04/13/19 Budesonide [Pulmicort Flexhaler] 1 puff INHALATION RT-BID 03/18/19 04/13/19 Iron 15mg/1.5ml 45 mg PO DAILY 03/18/19 04/13/19 Multivitamins, Thera [Multivitamin 1 tab PO DAILY 03/18/19 04/13/19 (formulary)] OLANZapine [ZyPREXA] 10 mg PO DAILY 03/18/19 04/13/19 Pantoprazole [Protonix] 40 mg PO DAILY 03/18/19 04/13/19 Sucralfate [Carafate] 1 gm PO AC-TID 03/18/19 04/13/19 busPIRone HCL 15 mg PO BID 03/18/19 04/13/19 guaiFENesin [guaiFENesin Oral 200 mg PO Q6H PRN 03/18/19 04/13/19 Solution] Acetaminophen Tab [Tylenol] 500 mg PO TID 04/13/19 04/13/19 L.acidoph,Paracasei, B.lactis 1 cap PO BID 04/13/19 04/13/19 [Probiotic] Magnesium Oxide [Mag-Ox] 400 mg PO BID 04/13/19 04/13/19 Previous Rx's Medication Instructions Recorded Gabapentin 600 mg PO TID #20 tablet 04/14/19 Allergies Allergy/AdvReac Type Severity Reaction Status Date / Time codeine Allergy Severe Swelling Verified 03/18/19 19:04 OF THROAT WITH COUGH SYRUP chlorpheniramine Allergy Unknown Verified 03/18/19 19:04 febuxostat [From Uloric] Allergy Unknown Verified 04/13/19 21:29 phenylephrine Allergy Unknown Verified 03/18/19 19:04 piperacillin sodium Allergy Unknown Verified 03/18/19 19:04 [From Zosyn] tazobactam sodium Allergy Unknown Verified 03/18/19 19:04 [From Zosyn] Review of Systems ROS Statement: Those systems with pertinent positive or pertinent negative responses have been documented in the HPI. ROS Other: All systems not noted in ROS Statement are negative. Past Medical History Past Medical History: Asthma, Cancer, COPD, Diabetes Mellitus, Deep Vein Thrombosis (DVT), GERD/Reflux, GI Bleed, Hyperlipidemia, Osteoarthritis (OA), Pneumonia, Pulmonary Embolus (PE), Renal Disease, Sleep Apnea/CPAP/BIPAP Additional Past Medical History / Comment(s): HYPOGLYCEMIA. NO C-PAP. DDD, SCOLIOSIS OF SPINE, SLEEPS IN RECLINER. HAVING . HX OF SKIN CANCER , Hiatal Hernia. Irregular HR in the past. DVT IN LEG, WENT TO LUNG - AFTER HIP SURG. BLOOD IN STOOL,RENAL DISEASE-STAGE 3," RETAINS FLUIDS " History of Any Multi-Drug Resistant Organisms: MRSA Date of last positivie culture/infection: AUG 2014 MDRO Source:: NASAL Past Surgical History: Appendectomy, Bariatric Surgery, Heart Catheterization, Hernia Repair, Joint Replacement, Orthopedic Surgery Additional Past Surgical History / Comment(s): RT ELBOW SURG X2, TOTAL RT HIP,ARTHROSCOPIC LT KNEE X2, RT ANKLE RECONSTRUCTIVE SURG, JANUARY 2014 GASTRIC SLEEVE, COLONOSCOPY'S. Basal Cell CA Face, Back. LT ING HERNIA Past Anesthesia/Blood Transfusion Reactions: Previous Problems w/ Anesthesia Additional Past Anesthesia/Blood Transfusion Reaction / Comment(s): STATES HE WAS TOLD HE WAS A DIFFICULT INTUBATION WITH GASTRIC SLEEVE SURGERY, Past Psychological History: Anxiety, Depression, Panic Disorder, Schizoaffective Disorder Smoking Status: Former smoker Past Alcohol Use History: None Reported Past Drug Use History: IV Drug Use - Past Family History Father Family Medical History: Cancer Additional Family Medical History / Comment(s): LUNG CA General Exam General appearance: alert, in no apparent distress, other (Physical well- developed, well-nourished adult male patient in no acute distress. Vital signs upon presentation are temperature 98.0F, pulse 85, respirations 18, blood pressure 126/67, pulse ox 97% on room air.) Eye exam: Present: normal appearance, PERRL, EOMI. Absent: scleral icterus, conjunctival injection, periorbital swelling ENT exam: Present: normal exam, normal oropharynx, mucous membranes moist Respiratory exam: Present: normal lung sounds bilaterally. Absent: respiratory distress, wheezes, rales, rhonchi, stridor Cardiovascular Exam: Present: regular rate, normal rhythm, normal heart sounds. Absent: systolic murmur, diastolic murmur, rubs, gallop, clicks GI/Abdominal exam: Present: soft, tenderness (Generalized), normal bowel sounds. Absent: distended, guarding, rebound, rigid Neurological exam: Present: alert, oriented X3, CN II-XII intact Psychiatric exam: Present: normal affect, normal mood Skin exam: Present: warm, dry, intact, normal color. Absent: rash Course Vital Signs 07/12/19 07/12/19 07/13/19 19:20 23:10 00:03 Temperature 98 F 98 F Pulse Rate 85 67 70 Respiratory 18 18 18 Rate Blood Pressure 126/67 111/72 126/72 O2 Sat by Pulse 97 97 99 Oximetry Medical Decision Making - Medical Decision Making 58-year-old male patient presents to the emergency department today for evaluation of generalized abdominal pain and diarrhea for the last 6 weeks. Physical examination revealed mild generalized abdominal tenderness. Labs reviewed and are unremarkable. CT abdomen and pelvis was obtained and showed no acute intra-abdominal process. Patient was unable to provide a stool sample here in the department. He is afebrile normal vital signs. Tolerating oral intake. I did discuss findings and results with him. He is instructed to follow-up with his primary care physician for recheck in 1-2 days. He is urged discuss referral to gastroenterology for possible colonoscopy. Return par ameters were discussed in detail. He verbalizes understanding and agrees with this plan. - Lab Data Result diagrams: 07/12/19 20:34 07/12/19 20:34 Lab Results 07/12/19 07/12/19 07/12/19 Range/Units 20:34 20:34 20:34 WBC 9.8 (3.8-10.6) k/uL RBC 4.58 (4.30-5.90) m/uL Hgb 12.4 L (13.0-17.5) gm/dL Hct 39.7 (39.0-53.0) % MCV 86.8 (80.0-100.0) fL MCH 27.0 (25.0-35.0) pg MCHC 31.1 (31.0-37.0) g/dL RDW 15.1 (11.5-15.5) % Plt Count 269 (150-450) k/uL Neutrophils % 76 % Lymphocytes % 12 % Monocytes % 7 % Eosinophils % 4 % Basophils % 0 % Neutrophils # 7.4 (1.3-7.7) k/uL Lymphocytes # 1.1 (1.0-4.8) k/uL Monocytes # 0.7 (0-1.0) k/uL Eosinophils # 0.4 (0-0.7) k/uL Basophils # 0.0 (0-0.2) k/uL Sodium 137 (137-145) mmol/L Potassium 4.0 (3.5-5.1) mmol/L Chloride 94 L (98-107) mmol/L Carbon Dioxide 37 H (22-30) mmol/L Anion Gap 6 mmol/L BUN 11 (9-20) mg/dL Creatinine 0.68 (0.66-1.25) mg/dL Est GFR (CKD-EPI)AfAm >90 (>60 ml/min/1.73 sqM) Est GFR (CKD-EPI)NonAf >90 (>60 ml/min/1.73 sqM) Glucose 101 H (74-99) mg/dL Plasma Lactic Acid Benjie 0.7 (0.7-2.0) mmol/L Calcium 9.4 (8.4-10.2) mg/dL Total Bilirubin 0.3 (0.2-1.3) mg/dL AST 14 L (17-59) U/L ALT 19 L (21-72) U/L Alkaline Phosphatase 82 (38-126) U/L Total Protein 5.8 L (6.3-8.2) g/dL Albumin 3.3 L (3.5-5.0) g/dL Amylase <30 L (30-110) U/L Lipase 38 (23-300) U/L - Radiology Data Radiology results: report reviewed, image reviewed CT abdomen and pelvis was obtained with contrast. Report was reviewed in its entirety. Impression by Dr. Pena shows no sign of acute abdomen and pelvis. Cardiomegaly. Bilateral pleural effusions with bibasilar atelectasis. Disposition Clinical Impression: Diarrhea, Abdominal pain Disposition: HOME SELF-CARE Condition: Good Instructions (If sedation given, give patient instructions): Chronic Diarrhea (ED), Abdominal Pain (ED) Additional Instructions: Start with clear liquid diet and advance as tolerated. Follow-up with your primary care physician for recheck as soon as possible. Bring stool in for culture. Follow-up with gastroenterology for recheck as soon as possible. Return to the emergency department immediately for any new, worsening, or concerning symptoms. Is patient prescribed a controlled substance at d/c from ED?: No Referrals: Hugo Bailey MD [Primary Care Provider] - 1-2 days Stephanie Thompson MD [STAFF PHYSICIAN] - 1-2 days Time of Disposition: 23:29
[2019-07-12 20:47] LABS: Basophils % (A) 0 %; Eosinophils # (A) 0.4 k/uL (0-0.7); Eosinophils % (A) 4 %; HCT 39.7 % (39.0-53.0); HGB 12.4 gm/dL (13.0-17.5); Lymphocytes # (A) 1.1 k/uL (1.0-4.8); Lymphocytes % (A) 12 %; MCHC 31.1 g/dL (31.0-37.0); MCV 86.8 fL (80.0-100.0); Mean Platelet Volume 7.1; Monocytes # (A) 0.7 k/uL (0-1.0); Monocytes % (A) 7 %; Neutrophils # (A) 7.4 k/uL (1.3-7.7); Neutrophils % (A) 76 %; Platelet Count 269 k/uL (150-450); RBC 4.58 m/uL (4.30-5.90); RDW 15.1 % (11.5-15.5); WBC 9.8 k/uL (3.8-10.6)
[2019-07-12 21:07] LABS: ALT 19 U/L (21-72); AST 14 U/L (17-59); African American GFR (CKD) >90 (>60 ml/min/1.73 sqM); Albumin 3.3 g/dL (3.5-5.0); Alkaline Phosphatase 82 U/L (38-126); Amylase <30 U/L (30-110); Blood Urea Nitrogen 11 mg/dL (9-20); Calcium 9.4 mg/dL (8.4-10.2); Chloride 94 mmol/L (98-107); Glucose 101 mg/dL (74-99); Sodium 137 mmol/L (137-145); Total Bilirubin 0.3 mg/dL (0.2-1.3); Total Protein 5.8 g/dL (6.3-8.2)
[2019-07-12 21:17] LABS: Anion Gap 6 mmol/L; Carbon Dioxide 37 mmol/L (22-30)
--- NOTE | 2019-07-12 22:08 | CT ---
EXAMINATION TYPE: CT abdomen pelvis w con DATE OF EXAM: 07/12/2019 COMPARISON: None HISTORY: Abdominal pain, diarrhea CT DLP: 2902.5 mGycm Automated exposure control for dose reduction was used. TECHNIQUE: Helical acquisition of images was performed from the lung bases through the pelvis. CONTRAST: Performed without Oral Contrast and with IV Contrast, patient injected with 100 mL of Isovue 300. FINDINGS: There is right pleural effusion. There is some atelectasis and infiltrate at the right posterior lung base. There is small left pleural effusion. Liver shows no focal defect. Heart is enlarged. Spleen appears normal. There is no pancreatic mass. G allbladder appears normal. Bile ducts are not dilated. There is no adrenal mass. Kidneys show satisfactory contrast opacification. There is no hydronephrosi s. Ureters are not dilated. There is no retroperitoneal adenopathy. Bladder distends smoothly. There is metal artifact from right hip prosthesis. There is no sign of a p elvic mass. There are bilateral inguinal hernias that contain fat. There is no ascites. There is no sign of free air. There is no evidence of a bowel obstruction. There is no mesenteric edema. Appendix is not seen. There is no sign of thickened appendix. LUMBAR VERTEBRA HAVE NORMAL ALIGNMENT. DISC SPACES ARE FAIRLY NORMAL. I SEE NO BONY DESTRUCTIVE PROCE SS. There is bone island in the anterior L4 vertebral body. There is advanced osteoarthritis in the l eft hip joint. IMPRESSION: No sign of acute abdomen and pelvis. Cardiomegaly. Bilateral pleural effusions with right basilar atelectasis.
[2019-07-13 00:09] VITALS: BP 126/72; PULSE 70
== END 2019-07-13 00:34 | disposition home or self-care (01) ==
LOC: EC 19:14
DX: R10.84 Generalized abdominal pain (principal); R19.7 Diarrhea, unspecified; R11.0 Nausea; R10.817 Generalized abdominal tenderness; J44.9 Chronic obstructive pulmonary disease, unspecified; K21.9 Gastro-esophageal reflux disease without esophagitis; G47.30 Sleep apnea, unspecified; F41.0 Panic disorder [episodic paroxysmal anxiety]; F32.9 Major depressive disorder, single episode, unspecified; F25.9 Schizoaffective disorder, unspecified; Z79.82 Long term (current) use of aspirin; Z79.51 Long term (current) use of inhaled steroids; Z99.89 Dependence on other enabling machines and devices; Z79.899 Other long term (current) drug therapy; Z88.5 Allergy status to narcotic agent; Z88.8 Allergy status to other drugs, medicaments and biological substances; Z88.1 Allergy status to other antibiotic agents; Z87.891 Personal history of nicotine dependence; Z98.84 Bariatric surgery status; Z95.5 Presence of coronary angioplasty implant and graft; Z90.89 Acquired absence of other organs; Z86.718 Personal history of other venous thrombosis and embolism; Z86.711 Personal history of pulmonary embolism
CPT/HCPCS: 36415; 80053; 82150; 83605; 83690; 85025; 74177; 99284; 96374; 96361 ×2; J1885; Q9967

== ENCOUNTER 2019-07-14 19:13 | Inpatient (IN) | payer MEDICARE, BC ==
[2019-07-14] MEDS ORDERED: HYDROmorphone 1 MG/ML 1 ML SYRINGE IVP STA (19:37)
[2019-07-14] MEDS ORDERED: ONDANSETRON 4 MG/2 ML VIAL IVP STA (19:37)
--- NOTE | 2019-07-14 19:39 | ED ---
Abdominal Pain HPI - General Stated Complaint: Diarrhea,rectal bleed Time Seen by Provider: 07/14/19 19:16 Source: RN notes reviewed, old records reviewed - History of Present Illness Initial Comments: This is a 58 male the ER for evaluation resents a for evaluation of bowel pain diarrhea not feeling well weakness. Patient is 2 days from in ER visit 3 days from [facility] and discharged. Patient has no headache no chest pain or shortness of breath. No recent fevers. Patient has recent diagnosis of C. diff but she believes is clear from he does have colitis which he states is a nonspecific colitis. He admits to blood in the stool as well today. Patient has significant and complicated medical history. MD Complaint: abdominal pain -: days(s) Location: diffuse Radiation: none Migration to: epigastric, suprapubic Severity: mild Severity scale (1-10): 3 Quality: fullness Consistency: constant, colicky Worsens With: nothing Associated Symptoms: nausea, diarrhea - Related Data Home Medications Medication Instructions Recorded Confirmed Aspirin 81 mg PO DAILY 09/13/14 04/13/19 lamoTRIgine 150 mg PO BID 09/03/15 04/13/19 Cilostazol [Pletal] 100 mg PO BID 06/12/18 04/13/19 Cholecalciferol [Vitamin D3 (25 1,000 unit PO DAILY 02/02/19 04/13/19 Mcg = 1000 Iu)] Ipratropium-Albuterol Nebulize 3 ml INHALATION RT-QID 02/02/19 04/13/19 [Duoneb 0.5 mg-3 mg/3 ml Soln] Melatonin 5 mg PO HS 02/02/19 04/13/19 Budesonide [Pulmicort Flexhaler] 1 puff INHALATION RT-BID 03/18/19 04/13/19 Iron 15mg/1.5ml 45 mg PO DAILY 03/18/19 04/13/19 Multivitamins, Thera [Multivitamin 1 tab PO DAILY 03/18/19 04/13/19 (formulary)] OLANZapine [ZyPREXA] 10 mg PO DAILY 03/18/19 04/13/19 Pantoprazole [Protonix] 40 mg PO DAILY 03/18/19 04/13/19 Sucralfate [Carafate] 1 gm PO AC-TID 03/18/19 04/13/19 busPIRone HCL 15 mg PO BID 03/18/19 04/13/19 guaiFENesin [guaiFENesin Oral 200 mg PO Q6H PRN 03/18/19 04/13/19 Solution] Acetaminophen Tab [Tylenol] 500 mg PO TID 04/13/19 04/13/19 L.acidoph,Paracasei, B.lactis 1 cap PO BID 04/13/19 04/13/19 [Probiotic] Magnesium Oxide [Mag-Ox] 400 mg PO BID 04/13/19 04/13/19 Previous Rx's Medication Instructions Recorded Gabapentin 600 mg PO TID #20 tablet 04/14/19 Allergies Allergy/AdvReac Type Severity Reaction Status Date / Time codeine Allergy Severe Swelling Verified 03/18/19 19:04 OF THROAT WITH COUGH SYRUP chlorpheniramine Allergy Unknown Verified 03/18/19 19:04 febuxostat [From Uloric] Allergy Unknown Verified 04/13/19 21:29 phenylephrine Allergy Unknown Verified 03/18/19 19:04 piperacillin sodium Allergy Unknown Verified 03/18/19 19:04 [From Zosyn] tazobactam sodium Allergy Unknown Verified 03/18/19 19:04 [From Zosyn] Review of Systems ROS Statement: Those systems with pertinent positive or pertinent negative responses have been documented in the HPI. ROS Other: All systems not noted in ROS Statement are negative. Past Medical History Past Medical History: Asthma, Cancer, COPD, Diabetes Mellitus, Deep Vein Thrombosis (DVT), GERD/Reflux, GI Bleed, Hyperlipidemia, Osteoarthritis (OA), Pneumonia, Pulmonary Embolus (PE), Renal Disease, Sleep Apnea/CPAP/BIPAP Additional Past Medical History / Comment(s): HYPOGLYCEMIA. NO C-PAP. DDD, SCOLIOSIS OF SPINE, SLEEPS IN RECLINER. HAVING . HX OF SKIN CANCER , Hiatal Hernia. Irregular HR in the past. DVT IN LEG, WENT TO LUNG - AFTER HIP SURG. BLOOD IN STOOL,RENAL DISEASE-STAGE 3," RETAINS FLUIDS " History of Any Multi-Drug Resistant Organisms: MRSA Date of last positivie culture/infection: AUG 2014 MDRO Source:: NASAL Past Surgical History: Appendectomy, Bariatric Surgery, Heart Catheterization, Hernia Repair, Joint Replacement, Orthopedic Surgery Additional Past Surgical History / Comment(s): RT ELBOW SURG X2, TOTAL RT HIP,ARTHROSCOPIC LT KNEE X2, RT ANKLE RECONSTRUCTIVE SURG, JANUARY 2014 GASTRIC SLEEVE, COLONOSCOPY'S. Basal Cell CA Face, Back. LT ING HERNIA Past Anesthesia/Blood Transfusion Reactions: Previous Problems w/ Anesthesia Additional Past Anesthesia/Blood Transfusion Reaction / Comment(s): STATES HE WAS TOLD HE WAS A DIFFICULT INTUBATION WITH GASTRIC SLEEVE SURGERY, Past Psychological History: Anxiety, Depression, Panic Disorder, Schizoaffective Disorder Smoking Status: Former smoker Past Alcohol Use History: None Reported Past Drug Use History: IV Drug Use - Past Family History Father Family Medical History: Cancer Additional Family Medical History / Comment(s): LUNG CA General Exam General appearance: alert, in no apparent distress Head exam: Present: atraumatic, normocephalic, normal inspection Eye exam: Present: normal appearance, PERRL, EOMI. Absent: scleral icterus, conjunctival injection, periorbital swelling ENT exam: Present: normal exam, mucous membranes moist Neck exam: Present: normal inspection. Absent: tenderness, meningismus, lymphadenopathy Respiratory exam: Present: normal lung sounds bilaterally. Absent: respiratory distress, wheezes, rales, rhonchi, stridor Cardiovascular Exam: Present: regular rate, normal rhythm, normal heart sounds. Absent: systolic murmur, diastolic murmur, rubs, gallop, clicks GI/Abdominal exam: Present: soft, normal bowel sounds. Absent: distended, tenderness, guarding, rebound, rigid Extremities exam: Present: normal inspection, full ROM, normal capillary refill. Absent: tenderness, pedal edema, joint swelling, calf tenderness Back exam: Present: normal inspection Neurological exam: Present: alert, oriented X3, CN II-XII intact Psychiatric exam: Present: normal affect, normal mood Skin exam: Present: warm, dry, intact, normal color. Absent: rash Course Vital Signs 07/14/19 19:30 Temperature 97.8 F Pulse Rate 83 Respiratory 18 Rate Blood Pressure 120/62 O2 Sat by Pulse 95 Oximetry - Reevaluation(s) Reevaluation #1: 07/14/19 19:44 Medical records reviewed 07/14/19 19:44 ER visit from yesterday is also reviewed Reevaluation #2: 07/14/19 19:44 Patient does have improvement pain control Medical Decision Making - Medical Decision Making 58 male the ER for evaluation. Patient presents the abdominal pain blood in the stool feels a prior colitis feels like possible C. diff colitis, patient will be admitted for prior surgery, GI evaluation. Patient has no stool output here in the ER. Patient is feeling significantly dehydrated - Radiology Data Radiology results: report reviewed (X-ray abdominal series and chest negative for acute disease), image reviewed Disposition Clinical Impression: General weakness, Diarrhea, Abdominal pain, Fluid overload, Urinary retention Disposition: ADMITTED IP TO THIS HOSP Condition: Fair Is patient prescribed a controlled substance at d/c from ED?: No Referrals: Hugo Bailey MD [Primary Care Provider] - 1-2 days
[2019-07-14] MEDS ORDERED: MORPHINE SULFATE 4 MG/ML SYRINGE IVP PRN (19:40)
[2019-07-14] MEDS ORDERED: ONDANSETRON 4 MG/2 ML VIAL IVP PRN (19:40)
[2019-07-14 20:15] LABS: Basophils % (A) 0 %; Eosinophils # (A) 0.3 k/uL (0-0.7); Eosinophils % (A) 4 %; HGB 11.9 gm/dL (13.0-17.5); Lymphocytes # (A) 0.9 k/uL (1.0-4.8); Lymphocytes % (A) 12 %; MCH 26.3 pg (25.0-35.0); MCHC 30.5 g/dL (31.0-37.0); MCV 86.3 fL (80.0-100.0); Mean Platelet Volume 7.7; Monocytes # (A) 0.5 k/uL (0-1.0); Monocytes % (A) 7 %; Neutrophils # (A) 5.6 k/uL (1.3-7.7); Neutrophils % (A) 76 %; Platelet Count 269 k/uL (150-450); RBC 4.52 m/uL (4.30-5.90); RDW 15.2 % (11.5-15.5); WBC 7.4 k/uL (3.8-10.6)
--- NOTE | 2019-07-14 20:20 | XR ---
EXAMINATION TYPE: XR abdomen acute w cxr DATE OF EXAM: 07/14/2019 COMPARISON: Chest x-ray 03/18/2019 HISTORY: Diarrhea TECHNIQUE: Chest x-ray with supine and upright abdomen FINDINGS: There is blunting right costophrenic angle. There is infiltrate in the right lower lobe. Left lung is clear. There is no heart failure. There is right hip prosthesis. There is severe narrowing left hip joint space with spurring and lateral femoral head subluxation. Bowel gas pattern is normal. There is no sign of intestinal obstruction or pneumoperitoneum. Fecal pa ttern is normal. I see no pathologic calcifications over the kidneys. \ IMPRESSION: Right pleural effusion and right lower lobe infiltrate is new compared to old exam. No heart failure. Nonacute abdomen. Severe osteoarthritis left hip joint.
[2019-07-14 20:25] LABS: INR 1.2 (<1.2); Partial Thromboplastin Time 42.3 sec (22.0-30.0); Prothrombin Time 12.6 sec (9.0-12.0)
[2019-07-14 20:34] LABS: ALT 16 U/L (21-72); AST 15 U/L (17-59); African American GFR (CKD) >90 (>60 ml/min/1.73 sqM); Albumin 3.2 g/dL (3.5-5.0); Alkaline Phosphatase 76 U/L (38-126); Anion Gap 2 mmol/L; Blood Urea Nitrogen 10 mg/dL (9-20); Calcium 9.6 mg/dL (8.4-10.2); Carbon Dioxide 38 mmol/L (22-30); Chloride 98 mmol/L (98-107); Creatine Kinase <20 U/L (55-170); Glucose 125 mg/dL (74-99); Magnesium 1.5 mg/dL (1.6-2.3); Non-African American GFR(CKD) >90 (>60 ml/min/1.73 sqM); Phosphorus 2.5 mg/dL (2.5-4.5); Potassium 3.9 mmol/L (3.5-5.1); Sodium 138 mmol/L (137-145); Total Bilirubin 0.3 mg/dL (0.2-1.3); Total Protein 5.8 g/dL (6.3-8.2)
--- NOTE | 2019-07-15 02:04 | P.HPIM ---
History of Present Illness H&P Date: 07/15/19 The patient is a 58-year-old male with a PMH of diastolic chf, afib (on Xarelto), pseudoseizures, morbid obesity, sleeve gastrectomy, COPD, diabetes mellitus, anxiety, depression, and bipolar disorder who presented to the ED with complaints of abdominal pain and diarrhea. The patient notes that he has been suffering from soft and watery stools for the past 3 months. He states that he was at [facility] for 6 weeks where he underwent testing for C. diff multiple times which always returned negative. He also endorsed a chronic diffuse abdominal pain, which he characterized as a 6/10 at time of the interview. The patient also noticed an episode of bright red blood in his stool earlier today. The patient notes that he is very concerned due to his diarrhea, especially since he was discharged from [facility] due to lack of progress and is currently at home, with his son having to take care of him. The patient states that feels he should be in an institution since he doesn't wish to burden his son. He denied fever, chills, vomiting, chest pain, SOB, dizziness, or headaches. The patient underwent an extensive evaluation in the ED w/ WBC count 7.4, hemoglobin 11.9, platelets 269, CO2 38, Glucose 125, BUN 10, and Cr 0.73. The patient also had an acute abdomen series which revealed a nonacute abdomen. Review of Systems Pertinent positives and negatives as discussed in HPI, a complete review of systems was performed and all other systems are negative. Past Medical History Past Medical History: Asthma, Cancer, COPD, Diabetes Mellitus, Deep Vein Thrombosis (DVT), GERD/Reflux, GI Bleed, Hyperlipidemia, Osteoarthritis (OA), Pneumonia, Pulmonary Embolus (PE), Renal Disease, Sleep Apnea/CPAP/BIPAP Additional Past Medical History / Comment(s): HYPOGLYCEMIA. NO C-PAP. DDD, SCOLIOSIS OF SPINE, SLEEPS IN RECLINER. HAVING . HX OF SKIN CANCER , Hiatal Hernia. Irregular HR in the past. DVT IN LEG, WENT TO LUNG - AFTER HIP SURG. BLOOD IN STOOL,RENAL DISEASE-STAGE 3," RETAINS FLUIDS " History of Any Multi-Drug Resistant Organisms: MRSA Date of last positivie culture/infection: AUG 2014 MDRO Source:: NASAL Past Surgical History: Appendectomy, Bariatric Surgery, Heart Catheterization, Hernia Repair, Joint Replacement, Orthopedic Surgery Additional Past Surgical History / Comment(s): RT ELBOW SURG X2, TOTAL RT HIP,ARTHROSCOPIC LT KNEE X2, RT ANKLE RECONSTRUCTIVE SURG, JANUARY 2014 GASTRIC SLEEVE, COLONOSCOPY'S. Basal Cell CA Face, Back. LT ING HERNIA Past Anesthesia/Blood Transfusion Reactions: Previous Problems w/ Anesthesia Additional Past Anesthesia/Blood Transfusion Reaction / Comment(s): STATES HE WAS TOLD HE WAS A DIFFICULT INTUBATION WITH GASTRIC SLEEVE SURGERY, Past Psychological History: Anxiety, Depression, Panic Disorder, Schizoaffective Disorder Smoking Status: Former smoker Past Alcohol Use History: None Reported Past Drug Use History: IV Drug Use - Past Family History Father Family Medical History: Cancer Additional Family Medical History / Comment(s): LUNG CA Medications and Allergies Home Medications Medication Instructions Recorded Confirmed Type Aspirin 81 mg PO DAILY 09/13/14 04/13/19 History lamoTRIgine 150 mg PO BID 09/03/15 04/13/19 History Cilostazol [Pletal] 100 mg PO BID 06/12/18 04/13/19 History Cholecalciferol [Vitamin D3 (25 1,000 unit PO DAILY 02/02/19 04/13/19 History Mcg = 1000 Iu)] Ipratropium-Albuterol Nebulize 3 ml INHALATION RT-QID 02/02/19 04/13/19 History [Duoneb 0.5 mg-3 mg/3 ml Soln] Melatonin 5 mg PO HS 02/02/19 04/13/19 History Budesonide [Pulmicort Flexhaler] 1 puff INHALATION RT-BID 03/18/19 04/13/19 History Iron 15mg/1.5ml 45 mg PO DAILY 03/18/19 04/13/19 History Multivitamins, Thera [Multivitamin 1 tab PO DAILY 03/18/19 04/13/19 History (formulary)] OLANZapine [ZyPREXA] 10 mg PO DAILY 03/18/19 04/13/19 History Pantoprazole [Protonix] 40 mg PO DAILY 03/18/19 04/13/19 History Sucralfate [Carafate] 1 gm PO AC-TID 03/18/19 04/13/19 History busPIRone HCL 15 mg PO BID 03/18/19 04/13/19 History guaiFENesin [guaiFENesin Oral 200 mg PO Q6H PRN 03/18/19 04/13/19 History Solution] Acetaminophen Tab [Tylenol] 500 mg PO TID 04/13/19 04/13/19 History L.acidoph,Paracasei, B.lactis 1 cap PO BID 04/13/19 04/13/19 History [Probiotic] Magnesium Oxide [Mag-Ox] 400 mg PO BID 04/13/19 04/13/19 History Diphenox-Atrop 2.5-0.025 mg 1 tab PO QID PRN 07/14/19 07/14/19 History [Lomotil] Gabapentin [Neurontin] 600 mg PO DAILY 07/14/19 07/14/19 History HYDROcodone/APAP 5-325MG [[place] 1 tab PO Q6HR PRN 07/14/19 07/14/19 History 5-325] Rivaroxaban [Xarelto] 20 mg PO DAILY 07/14/19 07/14/19 History Allergies Allergy/AdvReac Type Severity Reaction Status Date / Time codeine Allergy Severe Swelling Verified 07/14/19 20:34 OF THROAT WITH COUGH SYRUP chlorpheniramine Allergy Unknown Verified 07/14/19 20:34 febuxostat [From Uloric] Allergy Unknown Verified 07/14/19 20:34 phenylephrine Allergy Unknown Verified 07/14/19 20:34 piperacillin sodium Allergy Unknown Verified 07/14/19 20:34 [From Zosyn] tazobactam sodium Allergy Unknown Verified 07/14/19 20:34 [From Zosyn] Physical Exam Vitals: Vital Signs Temp Pulse Resp BP Pulse Ox 07/14/19 23:00 84 18 121/64 97 07/14/19 19:30 97.8 F 83 18 120/62 95 Intake and Output 07/14/19 07/14/19 07/15/19 14:59 22:59 06:59 Other: Weight 181.437 kg General: non toxic, no distress, appears at stated age, morbidly obese Derm: no unusual rashes/lesions no unusual ecchymoses, warm, dry Head: atraumatic, normocephalic, symmetric Eyes: EOMI, no lid lag, anicteric sclera, pupils equal round reactive to light ENT: Nose and ears atraumatic, no thrush, no pharyngeal erythema Neck: No thyromegaly, no cervical lymphadenopathy, trachea midline, supple Mouth: no lip lesion, mucus membranes moist Cardiovascular: S1S2 reg, no murmur, positive posterior tibial pulse bilateral, no edema, capillary refill less than 2 seconds Lungs: CTA bilateral, no rhonchi, no rales , no accessory muscle use Abdominal: soft, mild RLQ tenderness, no guarding, no appreciable organomegaly, normal bowel sounds Ext: no gross muscle atrophy, muscle strength 5 out of 5 in all 4 extremities grossly, no contractures Neuro: CN II-XI grossly intact, light touch intact all 4 extremities, finger to nose within normal limits Psych: Alert, oriented, appropriate affect Results CBC & Chem 7: 07/14/19 19:54 07/14/19 19:54 Labs: Abnormal Lab Results - Last 24 Hours (Table) 07/14/19 07/14/19 07/14/19 Range/Units 19:54 19:54 19:54 Hgb 11.9 L (13.0-17.5) gm/dL MCHC 30.5 L (31.0-37.0) g/dL Lymphocytes # 0.9 L (1.0-4.8) k/uL PT 12.6 H (9.0-12.0) sec INR 1.2 H (<1.2) APTT 42.3 H (22.0-30.0) sec Carbon Dioxide 38 H (22-30) mmol/L Glucose 125 H (74-99) mg/dL Magnesium 1.5 L (1.6-2.3) mg/dL AST 15 L (17-59) U/L ALT 16 L (21-72) U/L Creatine Kinase <20 L (55-170) U/L Total Protein 5.8 L (6.3-8.2) g/dL Albumin 3.2 L (3.5-5.0) g/dL Assessment and Plan Plan: Abdominal pain, diarrhea, w/ episode of BRBPR -C/w Zofran prn and pain control -Consider GI consult for persistent diarrhea -Monitor CBC Alkalosis -Monitor for now Hypomagnasemia -Replace and monitor Paroxysmal A-fib -Hold anticoagulants for now Chronic conditions: COPD, DM -C/w home meds DVT prophylaxis -IPCDs The patient is admitted with an anticipated less than 2 midnight stay for evaluation of abd pain, diarrhea. CODE STATUS:Full Code Discussed with: Patient Anticipated discharge date: 07/16/[address]: Home A total of 45 minutes was spent on the care of this complex patient more than 50% of the time was spent in counseling and care coordination.
[2019-07-15] MEDS ORDERED: NALOXONE 0.4 MG/ML 1 ML VIAL IV PRN (03:10)
[2019-07-15] MEDS ORDERED: MORPHINE SULFATE 4 MG/ML SYRINGE IVP STA (03:14)
[2019-07-15 04:15] LABS: HCT 36.4 % (39.0-53.0); HGB 11.7 gm/dL (13.0-17.5); Hypochromasia Slight; MCH 27.9 pg (25.0-35.0); MCHC 32.1 g/dL (31.0-37.0); Mean Platelet Volume 6.9; Platelet Count 259 k/uL (150-450); RBC 4.19 m/uL (4.30-5.90); RDW 15.2 % (11.5-15.5); WBC 7.8 k/uL (3.8-10.6)
[2019-07-15 05:15] LABS: Appearance,Urine Clear (Clear); Bilirubin,Urine Negative (Negative); Blood,Urine Negative (Negative); Color,Urine Light Yellow; Glucose,Urine (UA) Negative (Negative); Ketones,Urine Negative (Negative); Leukocyte Esterase,Urine Negative (Negative); Nitrite,Urine Negative (Negative); Protein,Urine Negative (Negative); Specific Gravity,Urine 1.004 (1.001-1.035); Urobilinogen,Urine <2.0 mg/dL (<2.0)
[2019-07-15 07:17] LABS: Glucose,Whole Blood 87 mg/dL (75-99)
[2019-07-15] MEDS: INSULIN ASPART (NovoLOG) 100 UNIT/ML VIAL SQ SCH ×4 (07:50→20:30)
[2019-07-15] MEDS ORDERED: DIPHENOX-ATROP 2.5-0.025 MG 1 EACH TAB PO PRN (08:31)
[2019-07-15] MEDS ORDERED: HYDROmorphone 0.5 MG/0.5 ML SYRINGE IVP STA (08:33)
[2019-07-15] MEDS: MAGNESIUM SULFATE-D5W PMX 1 GM in DEXTROSE/WATER 1 100ML.BAG IVPB SCH ×2 (08:57→10:11)
[2019-07-15] MEDS: ASPIRIN 81 MG PO SCH (08:58)
[2019-07-15] MEDS: CHOLECALCIFEROL 1,000 UNIT TAB PO SCH (08:58)
[2019-07-15] MEDS: MAGNESIUM OXIDE 400 MG TAB PO SCH ×2 (08:58→21:10)
[2019-07-15] MEDS: GABAPENTIN 300 MG CAP PO SCH (08:58)
[2019-07-15] MEDS ORDERED: busPIRone HCl 5 MG TAB PO SCH (09:00)
[2019-07-15] MEDS ORDERED: PANTOPRAZOLE 40 MG/10 ML VIAL IVP SCH (09:00)
[2019-07-15] MEDS ORDERED: OLANZapine 10 MG TAB PO SCH ×2 (09:00→21:00)
[2019-07-15] MEDS: DILTIAZEM ORAL 30 MG TAB PO SCH ×4 (11:18→21:10)
[2019-07-15] MEDS: SUCRALFATE 1 GM TAB PO SCH ×2 (11:18→17:03)
[2019-07-15] MEDS: IPRATROPIUM-ALBUTEROL 3 ML NEB INHALATION SCH ×3 (11:30→19:20)
--- NOTE | 2019-07-15 11:31 | P.PN ---
Progress Note - Text Progress Note Date: 07/15/19 Patient was seen and examined today, H&P reviewed. Patient has been in and out of the hospital over the past 6 months. He was treated for 2 episodes of pneumonia and one episode of C. diff. He has been having diarrhea over the past 1-2 months. Subsequent C. diff testing came back negative. Patient feels dehydrated and weak. He also states that he was diagnosed with A. fib several months ago and was started on Cardizem and AC therapy. I will consult GI to assist with his management.
[2019-07-15 11:41] LABS: Glucose,Whole Blood 99 mg/dL (75-99)
[2019-07-15] MEDS: DICYCLOMINE 20 MG TAB PO SCH ×3 (12:22→21:10)
[2019-07-15] MEDS: KETOROLAC 30 MG/ML 1 ML VIAL IVP PRN ×2 (12:56→18:48)
[2019-07-15 16:49] LABS: Glucose,Whole Blood 106 mg/dL (75-99)
--- NOTE | 2019-07-15 18:15 | P.CONS ---
History of Present Illness - Reason for Consult Consult date: 07/15/19 Abdominal pain, diarrhea Requesting physician: Alejandra Mak - Chief Complaint Abdominal pain, diarrhea - History of Present Illness 58-year-old male with a past medical history significant for diastolic CHF, atrial fibrillation on Xarelto, morbid obesity, previous sleeve gastrectomy, COPD, diabetes mellitus, anxiety, depression and bipolar disorder who presented to the hospital with complaints of loose stool and abdominal pain. The patient reports loose bowel movements for the past 3 months. He states he is been going approximately 3-4 times per day generally loose to soft but states that on and Wednesday he had 6 bowel movements each day which were watery. The patient previously was treated for Clostridium difficile colitis however testing over the past few months while he has been at a rehabilitation facility has been negative. He reports one episode of some blood streaking with the bowel movement. No further bleeding since that time. The patient has had colonoscopies in the past with one colonoscopy in 07/2016 significant for 1 polyp removed with snare polypectomy. He also reports a subsequent colonoscopy in 2018 when he was ambulating but is unsure of the results. The patient also reports diffuse abdominal pain which is on the right side of his abdomen and radiates to the left side of his abdomen. It is described as sharp and aching in quality and he states is worse with bowel movements and with eating. He states he has been on numerous medications over the past few months and is unsure if the change in bowel habits is related to these medications. On presentation to the hospital x-ray of the abdomen was significant for a nonacute abdomen. WBC 7.8, hemoglobin stable at 11.7 from 11.9 on presentation. Platelet count 259,000, INR 1.2, stool positive for occult blood, with stool testing for Clostridium difficile negative. On questioning the patient also states he was told he had colitis in the 90s but is unsure what kind of colitis he had. He does report being treated with oral medications but has not taken these since the . Review of Systems REVIEW OF SYSTEMS: CONSTITUTIONAL: Denies any fevers, chills, weight change or fatigue. CARDIOVASCULAR: Denies any chest pain, palpitations high or low blood pressures RESPIRATORY: Denies any shortness of breath, hemoptysis or cough. GENITOURINARY: No dysuria or hematuria. MUSCULOSKELETAL: Patient is not ambulating, chronic. SKIN: Denies any new rashes or lesions, jaundice or pallor. PSYCHIATRIC: History of depression, anxiety and bipolar disorder. NEUROLOGY: Denies headache, denies any new focal deficits. EARS/NOSE/THROAT: No recent hearing change, congestion, nasal discharge or sore throat. EYES: No pain in eyes, discharge or change in vision. GASTROINTESTINAL: As per HPI. Past Medical History Past Medical History: Asthma, Cancer, COPD, Diabetes Mellitus, Deep Vein Thrombosis (DVT), GERD/Reflux, GI Bleed, Hyperlipidemia, Osteoarthritis (OA), Pneumonia, Pulmonary Embolus (PE), Renal Disease, Sleep Apnea/CPAP/BIPAP Additional Past Medical History / Comment(s): HYPOGLYCEMIA. NO C-PAP. DDD, SCOLIOSIS OF SPINE, SLEEPS IN RECLINER. HAVING . HX OF SKIN CANCER , Hiatal Hernia. Irregular HR in the past. DVT IN LEG, WENT TO LUNG - AFTER HIP SURG. BLOOD IN STOOL,RENAL DISEASE-STAGE 3," RETAINS FLUIDS " History of Any Multi-Drug Resistant Organisms: MRSA Year Discovered:: AUG 2014 MDRO Source:: NASAL Past Surgical History: Appendectomy, Bariatric Surgery, Heart Catheterization, Hernia Repair, Joint Replacement, Orthopedic Surgery Additional Past Surgical History / Comment(s): RT ELBOW SURG X2, TOTAL RT HIP,ARTHROSCOPIC LT KNEE X2, RT ANKLE RECONSTRUCTIVE SURG, JANUARY 2014 GASTRIC SLEEVE, COLONOSCOPY'S. Basal Cell CA Face, Back. LT ING HERNIA Past Anesthesia/Blood Transfusion Reactions: Previous Problems w/ Anesthesia Additional Past Anesthesia/Blood Transfusion Reaction / Comm: STATES HE WAS TOLD HE WAS A DIFFICULT INTUBATION WITH GASTRIC SLEEVE SURGERY, Past Psychological History: Anxiety, Depression, Panic Disorder, Schizoaffective Disorder Additional Psychological History / Comment(s): STATES PARANOID AT TIMES, claustrophobic, states very nervous about having general anesthesia. Smoking Status: Former smoker Past Alcohol Use History: None Reported Additional Past Alcohol Use History / Comment(s): STARTED SMOKING AT AGE 15 QUIT SMOKING 1998, smoked 4 cigerettes- 1PPD FORMER ETOH ABUSE. Pt states QUIT 2012 Past Drug Use History: IV Drug Use Additional Drug Use History / Comment(s): PAST HX OF MARIJUANA USE, DENIES USE IN YEARS. - Past Family History Father Family Medical History: Cancer Additional Family Medical History / Comment(s): LUNG CA Medications and Allergies Home Medications Medication Instructions Recorded Confirmed Type OLANZapine [ZyPREXA] 20 mg PO HS 03/18/19 07/15/19 History Diphenox-Atrop 2.5-0.025 mg 1 tab PO QID PRN 07/14/19 07/15/19 History [Lomotil] Gabapentin [Neurontin] 600 mg PO DAILY 07/14/19 07/14/19 History HYDROcodone/APAP 5-325MG [[place] 1 tab PO Q8H PRN 07/14/19 07/15/19 History 5-325] Rivaroxaban [Xarelto] 20 mg PO DAILY 07/14/19 07/15/19 History DULoxetine HCL [Cymbalta] 40 mg PO DAILY 07/15/19 07/15/19 History Diltiazem HCl 30 mg PO Q6H 07/15/19 07/15/19 History Ergocalciferol (Vitamin D2) 50,000 unit PO MO 07/15/19 07/15/19 History [Vitamin D2] busPIRone HCl [Buspar] 5 mg PO BID 07/15/19 07/15/19 History Allergies Allergy/AdvReac Type Severity Reaction Status Date / Time codeine Allergy Severe Swelling Verified 07/15/19 13:28 OF THROAT WITH COUGH SYRUP chlorpheniramine Allergy Unknown Verified 07/15/19 13:28 febuxostat [From Uloric] Allergy Unknown Verified 07/15/19 13:28 phenylephrine Allergy Unknown Verified 07/15/19 13:28 piperacillin sodium Allergy Unknown Verified 07/15/19 13:28 [From Zosyn] tazobactam sodium Allergy Unknown Verified 07/15/19 13:28 [From Zosyn] Physical Exam Vitals: Vital Signs Temp Pulse Pulse Resp BP BP Pulse Ox 07/15/19 09:34 98.4 F 81 16 137/81 97 07/15/19 05:05 97.7 F 75 16 109/66 98 07/15/19 05:00 18 07/15/19 03:20 98 F 92 18 140/64 98 07/14/19 23:00 84 18 121/64 97 07/14/19 19:30 97.8 F 83 18 120/62 95 Intake and Output 07/14/19 07/15/19 07/15/19 22:59 06:59 14:59 Other: Voiding Method Urinal # Voids 1 Weight 181.437 kg On physical examination, patient appears comfortable in no apparent distress. HEAD: Normocephalic, atraumatic. EYES: No scleral icterus. No conjunctival injection. MOUTH: No lesions, tongue midline. NECK: Trachea midline, no gross abnormalities. CHEST: Decreased air entry in all lung vasquez. HEART: S1-S2 appreciated. ABDOMEN: Soft, obese. Bowel sounds are positive. No organomegaly. No guarding or rigidity. EXTREMITIES: Bilateral pedal edema. SKIN: No jaundice. NEUROLOGIC: Alert and oriented x3. No focal deficits. Results CBC & Chem 7: 07/15/19 04:06 07/14/19 19:54 Labs: Abnormal Lab Results - Last 24 Hours (Table) 07/14/19 07/14/19 07/14/19 Range/Units 19:54 19:54 19:54 RBC (4.30-5.90) m/uL Hgb 11.9 L (13.0-17.5) gm/dL Hct (39.0-53.0) % MCHC 30.5 L (31.0-37.0) g/dL Lymphocytes # 0.9 L (1.0-4.8) k/uL PT 12.6 H (9.0-12.0) sec INR 1.2 H (<1.2) APTT 42.3 H (22.0-30.0) sec Carbon Dioxide 38 H (22-30) mmol/L Glucose 125 H (74-99) mg/dL Magnesium 1.5 L (1.6-2.3) mg/dL AST 15 L (17-59) U/L ALT 16 L (21-72) U/L Creatine Kinase <20 L (55-170) U/L Total Protein 5.8 L (6.3-8.2) g/dL Albumin 3.2 L (3.5-5.0) g/dL 07/15/19 Range/Units 04:06 RBC 4.19 L (4.30-5.90) m/uL Hgb 11.7 L (13.0-17.5) gm/dL Hct 36.4 L (39.0-53.0) % MCHC (31.0-37.0) g/dL Lymphocytes # (1.0-4.8) k/uL PT (9.0-12.0) sec INR (<1.2) APTT (22.0-30.0) sec Carbon Dioxide (22-30) mmol/L Glucose (74-99) mg/dL Magnesium (1.6-2.3) mg/dL AST (17-59) U/L ALT (21-72) U/L Creatine Kinase (55-170) U/L Total Protein (6.3-8.2) g/dL Albumin (3.5-5.0) g/dL Microbiology - Last 24 Hours (Table) 07/15/19 00:42 Stool Culture - Preliminary Stool Abdominal x-ray: report reviewed (Abdominal x-ray, nonacute abdomen.) Assessment and Plan (1) Diarrhea Narrative/Plan: 58-year-old male with multiple medical comorbidities who presents to the [facility] for evaluation of abdominal pain and diarrhea. He reports diarrhea has been present over the past 3 months generally 3-4 loose bowel movements daily, with symptoms worsened 2 days this prior week during which the patient had 6 loose bowel movements each day. Testing for Clostridium difficile was negative in the outpatient setting as well as on presentation to the hospital. He reports a remote history of colitis in the but is unsure what kind of colitis he had and has not been on medication since that time. Colonoscopy in 2016 was significant for 1 polyp removed with snare polypectomy and the patient reports a subsequent colonoscopy in 2018 when he was ambulating but is unsure of the results. He had 1 episode of blood streaking with the stool. Abdominal x- ray on presentation was negative. Unclear etiology, may be functional in nature with the patient reporting chronic abdominal pain, medication related, less likely infectious or other etiology. Current Visit: Yes Status: Acute Code(s): R19.7 - DIARRHEA, UNSPECIFIED SNOMED Code(s): 40909453 (2) Abdominal pain Current Visit: Yes Status: Acute Code(s): R10.9 - UNSPECIFIED ABDOMINAL PAIN SNOMED Code(s): 45943985 Plan: Supportive care Okay for diet Testing for Clostridium difficile negative for toxin, will order PCR Stool culture pending Stool lactoferrin pending Okay for antidiarrheal use as needed Will add Bentyl 20 mg 4 times a day around the clock No plans for colonoscopy at this time, as the patient is currently bedbound and does not feel he could prep for the procedure as well as normal evaluations with report from 2016 reviewed and patient stating he had repeat colonoscopy in 2018 when he was ambulating Thank you for allowing us to participate in the care of the patient we will continue to follow
[2019-07-15] MEDS: FLUTICASONE 110 MCG INHALER INHALATION SCH (19:20)
[2019-07-15 20:34] LABS: Glucose,Whole Blood 98 mg/dL (75-99)
[2019-07-15] MEDS: MELATONIN 5 MG TABLET PO SCH (21:09)
[2019-07-15] MEDS: busPIRone HCl 5 MG TAB PO SCH (21:10)
[2019-07-16] MEDS: KETOROLAC 30 MG/ML 1 ML VIAL IVP PRN ×3 (02:36→17:27)
[2019-07-16 06:57] LABS: Glucose,Whole Blood 89 mg/dL (75-99)
[2019-07-16] MEDS: MAGNESIUM OXIDE 400 MG TAB PO SCH ×2 (07:09→21:05)
[2019-07-16] MEDS: INSULIN ASPART (NovoLOG) 100 UNIT/ML VIAL SQ SCH ×4 (07:09→21:05)
[2019-07-16] MEDS: busPIRone HCl 5 MG TAB PO SCH ×2 (07:09→21:05)
[2019-07-16] MEDS: CHOLECALCIFEROL 1,000 UNIT TAB PO SCH (07:09)
[2019-07-16] MEDS: ASPIRIN 81 MG PO SCH (07:09)
[2019-07-16] MEDS: SUCRALFATE 1 GM TAB PO SCH ×3 (07:09→17:24)
[2019-07-16] MEDS: PANTOPRAZOLE 40 MG TABLET PO SCH (07:09)
[2019-07-16] MEDS: DICYCLOMINE 20 MG TAB PO SCH ×4 (07:09→21:05)
[2019-07-16] MEDS: DILTIAZEM ORAL 30 MG TAB PO SCH ×4 (07:09→21:05)
[2019-07-16] MEDS: GABAPENTIN 300 MG CAP PO SCH (07:10)
[2019-07-16] MEDS: IPRATROPIUM-ALBUTEROL 3 ML NEB INHALATION SCH ×4 (07:19→20:54)
[2019-07-16] MEDS: FLUTICASONE 110 MCG INHALER INHALATION SCH ×2 (07:20→20:51)
[2019-07-16 08:54] LABS: African American GFR (CKD) >90 (>60 ml/min/1.73 sqM); Anion Gap 5 mmol/L; Blood Urea Nitrogen 16 mg/dL (9-20); Calcium 9.8 mg/dL (8.4-10.2); Carbon Dioxide 37 mmol/L (22-30); Chloride 97 mmol/L (98-107); Glucose 89 mg/dL (74-99); Magnesium 1.7 mg/dL (1.6-2.3); Non-African American GFR(CKD) >90 (>60 ml/min/1.73 sqM); Potassium 4.1 mmol/L (3.5-5.1); Sodium 139 mmol/L (137-145)
--- NOTE | 2019-07-16 11:28 | P.PN ---
Subjective Progress Note Date: 07/16/19 Principal diagnosis: Diarrhea and generalized weakness Patient still significantly weak. He is unable to get up from the bed. He is still having diarrhea as well. Stool color is brown. No blood. No melena. No nausea or vomiting. Objective - Vital Signs Vital signs: Vital Signs Temp 97.7 F 07/16/19 04:32 Pulse 82 07/16/19 11:05 Resp 18 07/16/19 04:32 BP 117/70 07/16/19 04:32 Pulse Ox 96 07/16/19 04:32 Intake & Output 07/15/19 07/16/19 07/16/19 18:59 06:59 18:59 Intake Total 200 Output Total 1500 Balance -1300 Intake: Oral 200 Output: Urine 1500 Other: # Voids 1 # Bowel Movements 2 - Exam Constitutional: No acute distress, conversant, pleasant Eyes:Anicteric sclerae, moist conjunctiva, no lid-lag, PERRLA, ENMT: Oropharynx clear, no erythema, exudates Neck: Supple, FROM, no masses, or JVD, No carotid bruits, No thyromegaly Lungs: Clear to auscultation, Clear to percussion, Normal respiratory effort, no accessory muscle use Cardiovascular: Heart regular in rate and rhythm, No murmurs, gallops, or rubs, No peripheral edema Abdominal: Soft, right-sided abdominal tenderness. no guarding, rebound or rigidity, Normoactive bowel sounds, No hepatomegaly, No splenomegaly, No palpa ble mass Skin: Normal temperature, tone, texture, turgor, no induration, No subcutaneous nodules, No rash, lesions, No ulcers Extremities: No digital cyanosis, No clubbing, Pedal pulses intact and sy mmetrical, Radial pulses intact and symmetrical, No calf tenderness Psychiatric: Alert and oriented to person, place and time, appropriate affect, intact judgement Neuro: Gen. weakness, no focal sensory deficits - Labs CBC & Chem 7: 07/15/19 04:06 07/16/19 07:45 Labs: Abnormal Lab Results - Last 24 Hours (Table) 07/15/19 07/16/19 07/16/19 Range/Units 16:43 07:45 09:00 Chloride 97 L (98-107) mmol/L Carbon Dioxide 37 H (22-30) mmol/L POC Glucose (mg/dL) 106 H (75-99) mg/dL C. difficile (EIA) Intrp Positive A (Negative) Microbiology - Last 24 Hours (Table) 07/15/19 00:42 Stool Culture - Preliminary Stool Assessment and Plan Plan: Abdominal pain, diarrhea -C.diff back positive, start vancomycin po. Contact isolation. -Toradol and mophine for pain -GI consulted, no plans for colonoscopy -Monitor CBC Hypomagnasemia -Replaced Paroxysmal A-fib -Hold anticoagulants for now as he had an episode of BRBPR when he first came in -Continue cardizem Chronic conditions: COPD, DM 2 -C/w home meds General weakness: Extensive discussion with him carried out to encourage him to ambulate PT/OT DVT prophylaxis -IPCDs Anticipated discharge date: 07/18/[address]: Rehab
[2019-07-16] MEDS: CHERRY FLAVOR 60 ML BOTTLE PO PRN ×3 (12:34→23:32)
[2019-07-16] MEDS: VANCOMYCIN ORAL SOLUTION 250 MG/5 ML BOTTLE PO SCH ×3 (12:34→23:32)
[2019-07-16 12:35] LABS: Glucose,Whole Blood 91 mg/dL (75-99)
[2019-07-16] MEDS ORDERED: MORPHINE SULFATE ER 30 MG TABLET PO SCH (12:45)
[2019-07-16] MEDS: MORPHINE SULFATE ER 15 MG TABLET PO SCH ×2 (12:58→21:05)
[2019-07-16 17:27] LABS: Glucose,Whole Blood 96 mg/dL (75-99)
[2019-07-16 20:43] LABS: Glucose,Whole Blood 96 mg/dL (75-99)
--- NOTE | 2019-07-16 20:43 | P.PN ---
Subjective Progress Note Date: 07/16/19 Principal diagnosis: Abdominal pain, diarrhea Patient is seen lying in bed reporting 3 loose bowel movements today. No blood per rectum reported. Tolerating diet. Objective - Vital Signs Vital signs: Vital Signs Temp 97.8 F 07/16/19 15:00 Pulse 88 07/16/19 15:14 Resp 18 07/16/19 15:00 BP 105/56 07/16/19 15:00 Pulse Ox 93 L 07/16/19 15:00 Intake & Output 07/16/19 07/16/19 07/17/19 06:59 18:59 06:59 Other: # Voids 1 2 # Bowel Movements 2 - Exam On physical examination, patient appears comfortable in no apparent distress. HEAD: Normocephalic, atraumatic. EYES: No scleral icterus. No conjunctival injection. MOUTH: No lesions, tongue midline. NECK: Trachea midline, no gross abnormalities. CHEST: Decreased air entry bilaterally. HEART: S1-S2 appreciated. ABDOMEN: Soft, morbidly obese. Bowel sounds are positive. No organomegaly. No guarding or rigidity. EXTREMITIES: Bilateral pedal edema. SKIN: No jaundice. NEUROLOGIC: Alert and oriented x3. - Labs CBC & Chem 7: 07/15/19 04:06 07/16/19 07:45 Labs: Abnormal Lab Results - Last 24 Hours (Table) 07/16/19 07/16/19 Range/Units 07:45 09:00 Chloride 97 L (98-107) mmol/L Carbon Dioxide 37 H (22-30) mmol/L C. difficile (EIA) Intrp Positive A (Negative) Assessment and Plan (1) Diarrhea Narrative/Plan: 58-year-old male with multiple medical comorbidities who presents to the hospital for evaluation of abdominal pain and diarrhea. He reports diarrhea has been present over the past 3 months generally 3-4 loose bowel movements daily, with symptoms worsened 2 days this prior week during which the patient had 6 loose bowel movements each day. Testing for Clostridium difficile was negative in the outpatient setting as well as on presentation to the hospital. He reports a remote history of colitis in the but is unsure what kind of colitis he had and has not been on medication since that time. Colonoscopy in 2015 was significant for 1 polyp removed with snare polypectomy and the patient reports a subsequent colonoscopy in 2018 when he was ambulating but is unsure of the results. He had 1 episode of blood streaking with the stool. Abdominal x- ray on presentation was negative. PCR for Clostridium difficile ordered and positive today. Current Visit: Yes Status: Acute Code(s): R19.7 - DIARRHEA, UNSPECIFIED SNOMED Code(s): 43147925 (2) Abdominal pain Current Visit: Yes Status: Acute Code(s): R10.9 - UNSPECIFIED ABDOMINAL PAIN SNOMED Code(s): 77223830 Plan: Supportive care Okay for diet Testing for Clostridium difficile negative for toxin, but PCR ordered yesterday came back positive Continue vancomycin therapy Antidiarrheal should be stopped given positive testing for C. diff No plans for colonoscopy at this time given positive testing for Clostridium difficile as well as colonoscopy in 2016 with report reviewed and patient stating colonoscopy in 2018 Thank you for allowing us to participate in the care of the patient we will continue to follow
[2019-07-16] MEDS: MELATONIN 5 MG TABLET PO SCH (21:05)
[2019-07-16] MEDS: OLANZapine 10 MG TAB PO SCH (21:05)
[2019-07-17] MEDS: KETOROLAC 30 MG/ML 1 ML VIAL IVP PRN ×3 (03:13→22:44)
[2019-07-17 04:04] LABS: Glucose,Whole Blood 105 mg/dL (75-99)
[2019-07-17] MEDS: CHERRY FLAVOR 60 ML BOTTLE PO PRN ×2 (05:46→12:12)
[2019-07-17] MEDS: VANCOMYCIN ORAL SOLUTION 250 MG/5 ML BOTTLE PO SCH ×2 (05:46→12:12)
[2019-07-17] MEDS: DILTIAZEM ORAL 30 MG TAB PO SCH ×4 (05:48→20:18)
[2019-07-17] MEDS: FLUTICASONE 110 MCG INHALER INHALATION SCH ×2 (07:17→19:25)
[2019-07-17] MEDS: IPRATROPIUM-ALBUTEROL 3 ML NEB INHALATION SCH ×4 (07:17→19:25)
[2019-07-17] MEDS: ASPIRIN 81 MG PO SCH (07:18)
[2019-07-17] MEDS: CHOLECALCIFEROL 1,000 UNIT TAB PO SCH (07:18)
[2019-07-17] MEDS: DICYCLOMINE 20 MG TAB PO SCH (07:18)
[2019-07-17] MEDS: GABAPENTIN 300 MG CAP PO SCH (07:18)
[2019-07-17] MEDS: PANTOPRAZOLE 40 MG TABLET PO SCH (07:18)
[2019-07-17] MEDS: busPIRone HCl 5 MG TAB PO SCH ×2 (07:18→20:18)
[2019-07-17] MEDS: MAGNESIUM OXIDE 400 MG TAB PO SCH ×2 (07:18→20:18)
[2019-07-17] MEDS: SUCRALFATE 1 GM TAB PO SCH ×3 (07:18→17:23)
[2019-07-17] MEDS: MORPHINE SULFATE ER 15 MG TABLET PO SCH ×2 (07:19→20:20)
[2019-07-17 07:29] LABS: Glucose,Whole Blood 94 mg/dL (75-99)
[2019-07-17] MEDS: INSULIN ASPART (NovoLOG) 100 UNIT/ML VIAL SQ SCH ×4 (07:32→20:21)
--- NOTE | 2019-07-17 09:21 | P.PN ---
Subjective Progress Note Date: 07/17/19 Principal diagnosis: diarrhea c. difficile Passing multiple nonbloody BMs. ID consulted. Diffuse bilateral lower abdominal pain. Afebrile. Receiving oral vancomycin. Objective - Vital Signs Vital signs: Vital Signs Temp 98 F 07/17/19 04:45 Pulse 74 07/17/19 07:29 Resp 20 07/17/19 07:21 BP 109/64 07/17/19 04:45 Pulse Ox 95 07/17/19 04:45 Intake & Output 07/16/19 07/17/19 07/17/19 18:59 06:59 18:59 Intake Total 600 Output Total 2 2 Balance 598 -2 Intake: Oral 600 Output: Stool 2 2 Other: Voiding Method Urinal # Voids 2 1 # Bowel Movements 2 1 - Exam General appearance: The patient is alert, oriented, in no acute distress. HET: Head is normocephalic and atraumatic. Pupils are equal and reactive. Oropharynx is clear without lesions. Neck: Supple without lymphadenopathy. Trachea midline. Heart: S1 S2. Regular rate and rhythm. Lungs: No crackles or wheezes are heard. Abdomen: Soft, diffusely tender bilateral lower abdomen, nondistended with bowel sounds. No peritoneal signs. No palpable organomegaly or masses. Extremities: Normal skin color and turgor. No cyanosis, rash, ulceration, clubbing, or edema. Radial and pedal pulses are 2/4 bilaterally. Neurological: No focal deficits. Strength and sensation are grossly intact. - Labs CBC & Chem 7: 07/15/19 04:06 07/16/19 07:45 Labs: Abnormal Lab Results - Last 24 Hours (Table) 07/16/19 07/17/19 Range/Units 09:00 03:58 POC Glucose (mg/dL) 105 H (75-99) mg/dL C. difficile (EIA) Intrp Positive A (Negative) Assessment and Plan (1) Diarrhea Narrative/Plan: History of Clostridium difficile colitis earlier this year previously maintained on vancomycin with persistent diarrhea positive Clostridium difficile testing per EIA. Current Visit: Yes Status: Acute Code(s): R19.7 - DIARRHEA, UNSPECIFIED SNOMED Code(s): 78731778 (2) Abdominal pain Current Visit: Yes Status: Acute Code(s): R10.9 - UNSPECIFIED ABDOMINAL PAIN SNOMED Code(s): 71911314 Plan: 1. ID consult. Continue with present medical therapy. No plans for inpatient endoscopy at this time. Assessment and plan a care discussed with Dr. Pickard
--- NOTE | 2019-07-17 10:00 | P.PN ---
Subjective Progress Note Date: 07/17/19 Principal diagnosis: Diarrhea and generalized weakness Patient is still having diarrhea, stool is smelly. Still with abdominal pain on the right side. No nausea or vomiting. Objective - Vital Signs Vital signs: Vital Signs Temp 98 F 07/17/19 04:45 Pulse 74 07/17/19 07:29 Resp 20 07/17/19 07:21 BP 109/64 07/17/19 04:45 Pulse Ox 95 07/17/19 04:45 Intake & Output 07/16/19 07/17/19 07/17/19 18:59 06:59 18:59 Intake Total 600 100 Output Total 2 2 Balance 598 98 Intake: Oral 600 100 Output: Stool 2 2 Other: Voiding Method Urinal # Voids 2 1 # Bowel Movements 2 1 - Exam Constitutional: No acute distress, conversant, pleasant Eyes:Anicteric sclerae, moist conjunctiva, no lid-lag, PERRLA, ENMT: Oropharynx clear, no erythema, exudates Neck: Supple, FROM, no masses, or JVD, No carotid bruits, No thyromegaly Lungs: Clear to auscultation, Clear to percussion, Normal respiratory effort, no accessory muscle use Cardiovascular: Heart regular in rate and rhythm, No murmurs, gallops, or rubs, No peripheral edema Abdominal: Soft, right-sided abdominal tenderness. no guarding, rebound or rigidity, Normoactive bowel sounds, No hepatomegaly, No splenomegaly, No palpable mass Skin: Normal temperature, tone, texture, turgor, no induration, No subcutaneous nodules, No rash, lesions, No ulcers Extremities: No digital cyanosis, No clubbing, Pedal pulses intact and symmetrical, Radial pulses intact and symmetrical, No calf tenderness Psychiatric: Alert and oriented to person, place and time, appropriate affect, intact judgement Neuro: Gen. weakness, no focal sensory deficits - Labs CBC & Chem 7: 07/15/19 04:06 07/16/19 07:45 Labs: Abnormal Lab Results - Last 24 Hours (Table) 07/16/19 07/17/19 Range/Units 09:00 03:58 POC Glucose (mg/dL) 105 H (75-99) mg/dL C. difficile (EIA) Intrp Positive A (Negative) Assessment and Plan Plan: Abdominal pain, diarrhea -C.diff back positive, continue vancomycin po. Contact isolation. -Toradol and mophine for pain -GI consulted, no plans for colonoscopy -Consult ID -Monitor CBC and electrolytes Hypomagnasemia -Replaced , will follow Paroxysmal A-fib -Hold anticoagulants for now as he had an episode of BRBPR when he first came in -Continue cardizem Chronic conditions: COPD, DM 2 -C/w home meds General weakness: Extensive discussion with him carried out to encourage him to ambulate PT/OT DVT prophylaxis -IPCDs Anticipated discharge date: 07/20/[address]: Rehab
[2019-07-17 11:22] LABS: Glucose,Whole Blood 71 mg/dL (75-99)
[2019-07-17] MEDS: FIDAXOMICIN 200 MG TABLET PO SCH ×2 (13:48→20:19)
--- NOTE | 2019-07-17 16:18 | P.CONS ---
History of Present Illness - Reason for Consult Consult date: 07/17/19 C. difficile colitis Requesting physician: Robert Hernandez - Chief Complaint diarrhea and bleading per rectum - History of Present Illness Patient is a 58-year-old male with a past medical history significant for C. difficile colitis patient reporting his initial episode was back in February 2019 the patient has been treated with oral vancomycin and did have improvement subsequently the patient has multiple admission both local hospital as well as at [facility] with the patient was diagnosed with another episode of C. difficile colitis and apparently has been treated with tapering course of oral vancomycin as the patient said he was on vancomycin for almost 6 weeks, patient said that while he was at the rehabilitation/fdc he did have problem with diarrhea off and on and apparently he did have stool for C. difficile checked which came back negative the patient is now presenting to [facility] after the patient noticed some blood in his stool patient did have a chronic diarrhea however the last few days the patient has almost 6 loose stools per day with some blood streaking recently they have been compelling of pain mostly in the right lower abdominal area to be colicky at times sharp almost 7-8 out of 10 with some radiation to the left abdominal area patient felt nauseated but no vomiting and denies high-grade fever with the symptom the patient was evaluated by the physician subsequently admitted hospital for management of his GI bleed posterior for C. difficile was sent which can be positive patient was started on oral vancomycin and infectious disease was consulted for further recommendation about antibiotic therapy because of his recurrent persistent diarrhea and C. difficile colitis. Review of Systems As per history of present illness Past Medical History Past Medical History: Asthma, Cancer, COPD, Diabetes Mellitus, Deep Vein Thrombosis (DVT), GERD/Reflux, GI Bleed, Hyperlipidemia, Osteoarthritis (OA), Pneumonia, Pulmonary Embolus (PE), Renal Disease, Sleep Apnea/CPAP/BIPAP Additional Past Medical History / Comment(s): HYPOGLYCEMIA. NO C-PAP. DDD, SCOLIOSIS OF SPINE, SLEEPS IN RECLINER. HAVING . HX OF SKIN CANCER , Hiatal Hernia. Irregular HR in the past. DVT IN LEG, WENT TO LUNG - AFTER HIP SURG. BLOOD IN STOOL,RENAL DISEASE-STAGE 3," RETAINS FLUIDS " History of Any Multi-Drug Resistant Organisms: MRSA Year Discovered:: AUG 2014 MDRO Source:: NASAL Past Surgical History: Appendectomy, Bariatric Surgery, Heart Catheterization, Hernia Repair, Joint Replacement, Orthopedic Surgery Additional Past Surgical History / Comment(s): RT ELBOW SURG X2, TOTAL RT HIP,ARTHROSCOPIC LT KNEE X2, RT ANKLE RECONSTRUCTIVE SURG, JANUARY 2014 GASTRIC SLEEVE, COLONOSCOPY'S. Basal Cell CA Face, Back. LT ING HERNIA Past Anesthesia/Blood Transfusion Reactions: Previous Problems w/ Anesthesia Additional Past Anesthesia/Blood Transfusion Reaction / Comm: STATES HE WAS TOLD HE WAS A DIFFICULT INTUBATION WITH GASTRIC SLEEVE SURGERY, Past Psychological History: Anxiety, Depression, Panic Disorder, Schizoaffective Disorder Additional Psychological History / Comment(s): STATES PARANOID AT TIMES, claustrophobic, states very nervous about having general anesthesia. Smoking Status: Former smoker Past Alcohol Use History: None Reported Additional Past Alcohol Use History / Comment(s): STARTED SMOKING AT AGE 15 QUIT SMOKING 1998, smoked 4 cigerettes- 1PPD FORMER ETOH ABUSE. Pt states QUIT 2012 Past Drug Use History: IV Drug Use Additional Drug Use History / Comment(s): PAST HX OF MARIJUANA USE, DENIES USE IN YEARS. - Past Family History Father Family Medical History: Cancer Additional Family Medical History / Comment(s): LUNG CA Medications and Allergies Home Medications Medication Instructions Recorded Confirmed Type OLANZapine [ZyPREXA] 20 mg PO HS 03/18/19 07/15/19 History Diphenox-Atrop 2.5-0.025 mg 1 tab PO QID PRN 07/14/19 07/15/19 History [Lomotil] Gabapentin [Neurontin] 600 mg PO DAILY 07/14/19 07/14/19 History HYDROcodone/APAP 5-325MG [[place] 1 tab PO Q8H PRN 07/14/19 07/15/19 History 5-325] Rivaroxaban [Xarelto] 20 mg PO DAILY 07/14/19 07/15/19 History DULoxetine HCL [Cymbalta] 40 mg PO DAILY 07/15/19 07/15/19 History Diltiazem HCl 30 mg PO Q6H 07/15/19 07/15/19 History Ergocalciferol (Vitamin D2) 50,000 unit PO MO 07/15/19 07/15/19 History [Vitamin D2] busPIRone HCl [Buspar] 5 mg PO BID 07/15/19 07/15/19 History Allergies Allergy/AdvReac Type Severity Reaction Status Date / Time codeine Allergy Severe Swelling Verified 07/15/19 13:28 OF THROAT WITH COUGH SYRUP chlorpheniramine Allergy Unknown Verified 07/15/19 13:28 febuxostat [From Uloric] Allergy Unknown Verified 07/15/19 13:28 phenylephrine Allergy Unknown Verified 07/15/19 13:28 piperacillin sodium Allergy Unknown Verified 07/15/19 13:28 [From Zosyn] tazobactam sodium Allergy Unknown Verified 07/15/19 13:28 [From Zosyn] Physical Exam Vitals: Vital Signs Temp Pulse Pulse Resp BP Pulse Ox 07/17/19 11:21 79 07/17/19 11:13 78 07/17/19 07:29 74 07/17/19 07:21 78 20 07/17/19 07:17 74 07/17/19 04:45 98 F 78 20 109/64 95 07/16/19 21:30 98.1 F 87 20 131/74 95 07/16/19 21:04 80 07/16/19 20:49 78 07/16/19 15:14 88 07/16/19 15:03 84 07/16/19 15:00 97.8 F 94 18 105/56 93 L Intake and Output 07/16/19 07/17/19 07/17/19 22:59 06:59 14:59 Intake Total 300 300 100 Output Total 2 312 Balance 300 298 -212 Intake: Oral 300 300 100 Output: Urine 310 Stool 2 2 Other: Voiding Method Urinal # Voids 1 2 # Bowel Movements 1 2 GENERAL DESCRIPTION: Middle-aged male lying in bed, no distress. No tachypnea or accessory muscle of respiration use. HEENT: Shows Pallor , no scleral icterus. Oral mucous membrane is dry. No pharyngeal erythema or thrush NECK: Trachea central, no thyromegaly. LUNGS: Unlabored breathing. Clear to auscultation anteriorly. No wheeze or crackle. HEART: S1, S2, regular rate and rhythm. No loud murmur ABDOMEN: Soft, mild right lower quadrant tenderness , guarding or rigidity, no organomegaly EXTREMITIES: diffuse swelling in the legs no pitting edema SKIN: No rash, no masses palpable. NEUROLOGICAL: The patient is awake, alert, oriented x3, mood and affect normal. Results CBC & Chem 7: 07/15/19 04:06 07/16/19 07:45 Labs: Abnormal Lab Results - Last 24 Hours (Table) 07/17/19 07/17/19 Range/Units 03:58 11:21 POC Glucose (mg/dL) 105 H 71 L (75-99) mg/dL Microbiology - Last 24 Hours (Table) 07/15/19 00:42 Stool Culture - Preliminary Stool Assessment and Plan Assessment: 1-patient with recurrent C. difficile colitis in this patient who has failed outpatient oral vancomycin standard treatment as well as a tapering course over few weeks with risk for failure with oral vancomycin. (1) C. difficile colitis Current Visit: Yes Status: Acute Code(s): A04.72 - ENTEROCOLITIS D/T CLOSTRIDIUM DIFFICILE, NOT SPCF RECUR SNOMED Code(s): 208023588 Plan: 1-discontinue the oral vancomycin 2-start the patient on dificid 200 mg by mouth twice a day 3-if the patient failed diffuse and he will be referred to [facility] transplant 4-patient has been advised to increase yogurt antibiotic intake. We will follow on clinical condition and further adjust medication if needed Thank you for this consultation, will follow this patient along with you Time with Patient: Greater than 30
[2019-07-17 16:56] LABS: Glucose,Whole Blood 140 mg/dL (75-99)
[2019-07-17] MEDS: OLANZapine 10 MG TAB PO SCH (20:18)
[2019-07-17] MEDS: MELATONIN 5 MG TABLET PO SCH (20:18)
[2019-07-17 20:28] LABS: Glucose,Whole Blood 85 mg/dL (75-99)
[2019-07-17 22:38] LABS: Glucose,Whole Blood 118 mg/dL (75-99)
[2019-07-18] MEDS: KETOROLAC 30 MG/ML 1 ML VIAL IVP PRN ×2 (05:56→12:15)
[2019-07-18] MEDS: FIDAXOMICIN 200 MG TABLET PO SCH ×2 (07:12→21:25)
[2019-07-18] MEDS: DILTIAZEM ORAL 30 MG TAB PO SCH ×4 (07:12→21:25)
[2019-07-18] MEDS: PANTOPRAZOLE 40 MG TABLET PO SCH (07:12)
[2019-07-18] MEDS: busPIRone HCl 5 MG TAB PO SCH ×2 (07:12→21:25)
[2019-07-18] MEDS: MORPHINE SULFATE ER 15 MG TABLET PO SCH ×2 (07:12→21:26)
[2019-07-18] MEDS: SUCRALFATE 1 GM TAB PO SCH ×3 (07:12→17:11)
[2019-07-18] MEDS: MAGNESIUM OXIDE 400 MG TAB PO SCH ×2 (07:12→21:25)
[2019-07-18] MEDS: ASPIRIN 81 MG PO SCH (07:13)
[2019-07-18] MEDS: INSULIN ASPART (NovoLOG) 100 UNIT/ML VIAL SQ SCH ×4 (07:13→21:26)
[2019-07-18] MEDS: GABAPENTIN 300 MG CAP PO SCH (07:13)
[2019-07-18] MEDS: CHOLECALCIFEROL 1,000 UNIT TAB PO SCH (07:13)
[2019-07-18 07:18] LABS: Glucose,Whole Blood 82 mg/dL (75-99)
[2019-07-18] MEDS: FLUTICASONE 110 MCG INHALER INHALATION SCH ×2 (07:23→19:20)
[2019-07-18] MEDS: IPRATROPIUM-ALBUTEROL 3 ML NEB INHALATION SCH ×4 (07:23→19:19)
[2019-07-18 08:12] LABS: Basophils % (A) 1 %; Eosinophils # (A) 0.3 k/uL (0-0.7); Eosinophils % (A) 5 %; HCT 37.6 % (39.0-53.0); HGB 11.6 gm/dL (13.0-17.5); Hypochromasia Slight; Lymphocytes # (A) 1.4 k/uL (1.0-4.8); Lymphocytes % (A) 21 %; MCH 26.6 pg (25.0-35.0); MCHC 30.7 g/dL (31.0-37.0); MCV 86.5 fL (80.0-100.0); Mean Platelet Volume 7.9; Monocytes # (A) 0.7 k/uL (0-1.0); Monocytes % (A) 10 %; Neutrophils # (A) 4.1 k/uL (1.3-7.7); Neutrophils % (A) 62 %; Platelet Count 283 k/uL (150-450); RBC 4.35 m/uL (4.30-5.90); RDW 15.3 % (11.5-15.5); WBC 6.6 k/uL (3.8-10.6)
[2019-07-18 08:35] LABS: African American GFR (CKD) >90 (>60 ml/min/1.73 sqM); Anion Gap 5 mmol/L; Blood Urea Nitrogen 15 mg/dL (9-20); Calcium 9.8 mg/dL (8.4-10.2); Carbon Dioxide 36 mmol/L (22-30); Chloride 98 mmol/L (98-107); Glucose 86 mg/dL (74-99); Magnesium 1.6 mg/dL (1.6-2.3); Non-African American GFR(CKD) >90 (>60 ml/min/1.73 sqM); Potassium 3.9 mmol/L (3.5-5.1); Sodium 139 mmol/L (137-145)
--- NOTE | 2019-07-18 12:00 | P.PN ---
Subjective Progress Note Date: 07/18/19 Principal diagnosis: Diarrhea and generalized weakness Patient is still having diarrhea, stool is smelly. Still with abdominal pain as well. No nausea or vomiting. Patient reported episodes of low sugars asha if he doesn't eat. Sugars here went as low as 82. Objective - Vital Signs Vital signs: Vital Signs Temp 97.2 F L 07/18/19 06:21 Pulse 88 07/18/19 11:14 Resp 15 07/18/19 06:21 BP 115/60 07/18/19 06:21 Pulse Ox 98 07/18/19 06:21 Intake & Output 07/17/19 07/18/19 07/18/19 18:59 06:59 18:59 Intake Total 400 Output Total 624 500 Balance -224 -500 Intake: Oral 400 Output: Urine 620 500 Stool 4 Other: Voiding Method Urinal # Voids 2 2 # Bowel Movements 2 3 - Exam Constitutional: No acute distress, conversant, pleasant Eyes:Anicteric sclerae, moist conjunctiva, no lid-lag, PERRLA, ENMT: Oropharynx clear, no erythema, exudates Neck: Supple, FROM, no masses, or JVD, No carotid bruits, No thyromegaly Lungs: Clear to auscultation, Clear to percussion, Normal respiratory effort, no accessory muscle use Cardiovascular: Heart regular in rate and rhythm, No murmurs, gallops, or rubs, No peripheral edema Abdominal: Soft, right-sided abdominal tenderness. no guarding, rebound or rigidity, Normoactive bowel sounds, No hepatomegaly, No splenomegaly, No palpable mass Skin: Normal temperature, tone, texture, turgor, no induration, No subcutaneous nodules, No rash, lesions, No ulcers Extremities: No digital cyanosis, No clubbing, Pedal pulses intact and symmetrical, Radial pulses intact and symmetrical, No calf tenderness Psychiatric: Alert and oriented to person, place and time, appropriate affect, intact judgement Neuro: Gen. weakness, no focal sensory deficits - Labs CBC & Chem 7: 07/18/19 07:57 07/18/19 07:57 Labs: Abnormal Lab Results - Last 24 Hours (Table) 07/17/19 07/17/19 07/18/19 Range/Units 16:54 22:31 07:57 Hgb 11.6 L (13.0-17.5) gm/dL Hct 37.6 L (39.0-53.0) % MCHC 30.7 L (31.0-37.0) g/dL Carbon Dioxide (22-30) mmol/L POC Glucose (mg/dL) 140 H 118 H (75-99) mg/dL 07/18/19 Range/Units 07:57 Hgb (13.0-17.5) gm/dL Hct (39.0-53.0) % MCHC (31.0-37.0) g/dL Carbon Dioxide 36 H (22-30) mmol/L POC Glucose (mg/dL) (75-99) mg/dL Microbiology - Last 24 Hours (Table) 07/15/19 00:42 Stool Culture - Final Stool Assessment and Plan Plan: Abdominal pain, diarrhea -C.diff back positive, -Abx switched to dificid per ID -Contact isolation. -Toradol and mophine for pain -GI consulted, no plans for colonoscopy Paroxysmal A-fib -Continue AC as no evidence of bleeding found -Continue cardizem Chronic conditions: COPD, DM 2 -C/w home meds General weakness: Extensive discussion with him carried out to encourage him to ambulate PT/OT DVT prophylaxis -IPCDs Anticipated discharge date: 07/20/[address]: Rehab
[2019-07-18 12:07] LABS: Glucose,Whole Blood 63 mg/dL (75-99)
[2019-07-18] MEDS: RIVAROXABAN 20 MG TAB PO SCH (12:11)
[2019-07-18 12:35] LABS: Glucose,Whole Blood 79 mg/dL (75-99)
[2019-07-18] MEDS ORDERED: ALBUTEROL NEBULIZED 2.5 MG/3 ML INHALATION ONE (13:30)
--- NOTE | 2019-07-18 16:41 | PN ---
PROGRESS NOTE DATE OF SERVICE: 07/18/2019. REASON FOR FOLLOWUP: Recurrent C difficile colitis. INTERVAL HISTORY: The patient is currently afebrile. The patient has been breathing comfortably. The patient had about 5 loose stools yesterday and about 3 last night, but no bowel movement since 7 in the morning. Still complaining of abdominal pain, though. No chest pain, shortness of breath or cough. He has been concerned about his low blood sugar. PHYSICAL EXAMINATION: Blood pressure is 115/63 with a pulse of 72, temperature 97.2. He is 98% on room air. General description is a middle-aged male lying in bed in no distress. RESPIRATORY SYSTEM: Unlabored breathing. Clear to auscultation anteriorly. HEART: S1, S2. Regular rate and rhythm. ABDOMEN: Soft. No guarding. No rigidity. No distention. LABS: Hemoglobin is 11.6, white count 6.6, BUN of 15, creatinine 0.78. DIAGNOSTIC IMPRESSION AND PLAN: Patient with recurrent Clostridium difficile colitis, almost third to fourth at this point. He was started on Dificid, as he previously failed oral vancomycin on a tapering course. To continue with oral Dificid for 10 days. Advised to increase his probiotic and yogurt intake. Questions were answered. MMODL / IJN: [id number] /
[2019-07-18] MEDS ORDERED: DEXTROSE 10 % IN WATER 250 ML IV ONE (17:21)
[2019-07-18] MEDS ORDERED: DEXTROSE 4 GM CHEWABLE PO STA (17:28)
[2019-07-18 17:34] LABS: Glucose,Whole Blood 36 mg/dL (75-99)
[2019-07-18 17:50] LABS: Glucose,Whole Blood 49 mg/dL (75-99)
[2019-07-18 17:50] LABS: Glucose,Whole Blood 102 mg/dL (75-99)
[2019-07-18 17:50] LABS: Glucose,Whole Blood 24 mg/dL (75-99)
[2019-07-18 17:50] LABS: Glucose,Whole Blood 48 mg/dL (75-99)
[2019-07-18 20:52] LABS: Glucose,Whole Blood 60 mg/dL (75-99)
[2019-07-18 21:07] LABS: Glucose,Whole Blood 58 mg/dL (75-99)
[2019-07-18] MEDS: DEXTROSE 5% IN WATER 1,000 ML IV SCH (21:25)
[2019-07-18] MEDS: OLANZapine 10 MG TAB PO SCH (21:25)
[2019-07-18] MEDS: MELATONIN 5 MG TABLET PO SCH (21:25)
[2019-07-19 04:05] LABS: Glucose,Whole Blood 57 mg/dL (75-99)
[2019-07-19] MEDS: RIVAROXABAN 20 MG TAB PO SCH (07:03)
[2019-07-19] MEDS: SUCRALFATE 1 GM TAB PO SCH ×3 (07:03→17:48)
[2019-07-19] MEDS: MAGNESIUM OXIDE 400 MG TAB PO SCH ×2 (07:03→21:33)
[2019-07-19] MEDS: GABAPENTIN 300 MG CAP PO SCH (07:03)
[2019-07-19] MEDS: PANTOPRAZOLE 40 MG TABLET PO SCH (07:03)
[2019-07-19] MEDS: DILTIAZEM ORAL 30 MG TAB PO SCH ×4 (07:03→21:33)
[2019-07-19] MEDS: CHOLECALCIFEROL 1,000 UNIT TAB PO SCH (07:03)
[2019-07-19] MEDS: FIDAXOMICIN 200 MG TABLET PO SCH ×2 (07:03→21:33)
[2019-07-19] MEDS: busPIRone HCl 5 MG TAB PO SCH ×2 (07:03→22:11)
[2019-07-19] MEDS: MORPHINE SULFATE ER 15 MG TABLET PO SCH ×2 (07:03→21:33)
[2019-07-19] MEDS: ASPIRIN 81 MG PO SCH (07:03)
[2019-07-19] MEDS: INSULIN ASPART (NovoLOG) 100 UNIT/ML VIAL SQ SCH ×4 (07:04→21:27)
[2019-07-19] MEDS: DEXTROSE 5% IN WATER 1,000 ML IV SCH (07:07)
[2019-07-19] MEDS: IPRATROPIUM-ALBUTEROL 3 ML NEB INHALATION SCH ×4 (07:12→19:44)
[2019-07-19] MEDS: FLUTICASONE 110 MCG INHALER INHALATION SCH ×2 (07:13→19:44)
[2019-07-19 07:43] LABS: Glucose,Whole Blood 47 mg/dL (75-99)
[2019-07-19 07:43] LABS: Glucose,Whole Blood 61 mg/dL (75-99)
[2019-07-19 07:54] LABS: Glucose,Whole Blood 67 mg/dL (75-99)
[2019-07-19 07:56] LABS: Basophils % (A) 1 %; Eosinophils # (A) 0.3 k/uL (0-0.7); Eosinophils % (A) 4 %; HCT 36.3 % (39.0-53.0); HGB 11.2 gm/dL (13.0-17.5); Hypochromasia Slight; Lymphocytes # (A) 1.6 k/uL (1.0-4.8); Lymphocytes % (A) 25 %; MCH 26.8 pg (25.0-35.0); MCHC 30.9 g/dL (31.0-37.0); MCV 86.7 fL (80.0-100.0); Mean Platelet Volume 7.6; Monocytes # (A) 0.6 k/uL (0-1.0); Monocytes % (A) 9 %; Neutrophils # (A) 3.7 k/uL (1.3-7.7); Neutrophils % (A) 59 %; Platelet Count 288 k/uL (150-450); RBC 4.19 m/uL (4.30-5.90); RDW 15.6 % (11.5-15.5); WBC 6.2 k/uL (3.8-10.6)
[2019-07-19 08:11] LABS: Glucose,Whole Blood 62 mg/dL (75-99)
[2019-07-19 08:15] LABS: ALT 22 U/L (21-72); AST 12 U/L (17-59); African American GFR (CKD) >90 (>60 ml/min/1.73 sqM); Albumin 2.9 g/dL (3.5-5.0); Alkaline Phosphatase 66 U/L (38-126); Anion Gap 4 mmol/L; Blood Urea Nitrogen 14 mg/dL (9-20); Calcium 9.5 mg/dL (8.4-10.2); Carbon Dioxide 37 mmol/L (22-30); Chloride 98 mmol/L (98-107); Glucose 77 mg/dL (74-99); Non-African American GFR(CKD) >90 (>60 ml/min/1.73 sqM); Potassium 4.2 mmol/L (3.5-5.1); Sodium 139 mmol/L (137-145); Total Bilirubin 0.4 mg/dL (0.2-1.3); Total Protein 5.3 g/dL (6.3-8.2)
[2019-07-19] MEDS ORDERED: DEXTROSE 10% IN WATER 500 ML in EMPTY BAG 1 BAG IV SCH (09:00)
[2019-07-19] MEDS: DEXTROSE 10% IN WATER 1,000 ML IV SCH ×2 (09:17→21:26)
--- NOTE | 2019-07-19 09:41 | P.PN ---
Subjective Progress Note Date: 07/19/19 Principal diagnosis: Diarrhea and generalized weakness Patient is having episodes of hypoglycemia which she states he has history of since February when he started having the colitis. His sugar was dropping into the 30s and 40s per Accu-Cheks but the lowest he was on the BMP was 77. Objective - Vital Signs Vital signs: Vital Signs Temp 97.5 F L 07/19/19 06:11 Pulse 86 07/19/19 07:27 Resp 15 07/19/19 06:11 BP 125/63 07/19/19 06:11 Pulse Ox 96 07/19/19 06:11 Intake & Output 07/18/19 07/19/19 07/19/19 18:59 06:59 18:59 Output Total 600 1150 Balance -600 -1150 Output: Urine 600 1150 Other: # Voids 1 # Bowel Movements 4 1 - Exam Constitutional: No acute distress, conversant, pleasant Eyes:Anicteric sclerae, moist conjunctiva, no lid-lag, PERRLA, ENMT: Oropharynx clear, no erythema, exudates Neck: Supple, FROM, no masses, or JVD, No carotid bruits, No thyromegaly Lungs: Clear to auscultation, Clear to percussion, Normal respiratory effort, no accessory muscle use Cardiovascular: Heart regular in rate and rhythm, No murmurs, gallops, or rubs, No peripheral edema Abdominal: Soft, right-sided abdominal tenderness. no guarding, rebound or rigidity, Normoactive bowel sounds, No hepatomegaly, No splenomegaly, No palpable mass Skin: Normal temperature, tone, texture, turgor, no induration, No subcutaneous nodules, No rash, lesions, No ulcers Extremities: No digital cyanosis, No clubbing, Pedal pulses intact and symmetrical, Radial pulses intact and symmetrical, No calf tenderness Psychiatric: Alert and oriented to person, place and time, appropriate affect, intact judgement Neuro: Gen. weakness, no focal sensory deficits - Labs CBC & Chem 7: 07/19/19 07:24 07/19/19 07:24 Labs: Abnormal Lab Results - Last 24 Hours (Table) 07/18/19 07/18/19 07/18/19 Range/Units 12:03 17:02 17:14 RBC (4.30-5.90) m/uL Hgb (13.0-17.5) gm/dL Hct (39.0-53.0) % MCHC (31.0-37.0) g/dL RDW (11.5-15.5) % Carbon Dioxide (22-30) mmol/L Glucose (74-99) mg/dL POC Glucose (mg/dL) 63 L 49 L 48 L (75-99) mg/dL AST (17-59) U/L Total Protein (6.3-8.2) g/dL Albumin (3.5-5.0) g/dL 07/18/19 07/18/19 07/18/19 Range/Units 17:24 17:33 17:39 RBC (4.30-5.90) m/uL Hgb (13.0-17.5) gm/dL Hct (39.0-53.0) % MCHC (31.0-37.0) g/dL RDW (11.5-15.5) % Carbon Dioxide (22-30) mmol/L Glucose 203 H (74-99) mg/dL POC Glucose (mg/dL) 24 L 36 L (75-99) mg/dL AST (17-59) U/L Total Protein (6.3-8.2) g/dL Albumin (3.5-5.0) g/dL 07/18/19 07/18/19 07/18/19 Range/Units 17:47 20:32 20:55 RBC (4.30-5.90) m/uL Hgb (13.0-17.5) gm/dL Hct (39.0-53.0) % MCHC (31.0-37.0) g/dL RDW (11.5-15.5) % Carbon Dioxide (22-30) mmol/L Glucose (74-99) mg/dL POC Glucose (mg/dL) 102 H 60 L 58 L (75-99) mg/dL AST (17-59) U/L Total Protein (6.3-8.2) g/dL Albumin (3.5-5.0) g/dL 07/18/19 07/19/19 07/19/19 Range/Units 21:09 04:03 07:18 RBC (4.30-5.90) m/uL Hgb (13.0-17.5) gm/dL Hct (39.0-53.0) % MCHC (31.0-37.0) g/dL RDW (11.5-15.5) % Carbon Dioxide (22-30) mmol/L Glucose 106 H (74-99) mg/dL POC Glucose (mg/dL) 57 L 47 L (75-99) mg/dL AST (17-59) U/L Total Protein (6.3-8.2) g/dL Albumin (3.5-5.0) g/dL 07/19/19 07/19/19 07/19/19 Range/Units 07:24 07:24 07:36 RBC 4.19 L (4.30-5.90) m/uL Hgb 11.2 L (13.0-17.5) gm/dL Hct 36.3 L (39.0-53.0) % MCHC 30.9 L (31.0-37.0) g/dL RDW 15.6 H (11.5-15.5) % Carbon Dioxide 37 H (22-30) mmol/L Glucose (74-99) mg/dL POC Glucose (mg/dL) 61 L (75-99) mg/dL AST 12 L (17-59) U/L Total Protein 5.3 L (6.3-8.2) g/dL Albumin 2.9 L (3.5-5.0) g/dL 07/19/19 07/19/19 Range/Units 07:51 08:06 RBC (4.30-5.90) m/uL Hgb (13.0-17.5) gm/dL Hct (39.0-53.0) % MCHC (31.0-37.0) g/dL RDW (11.5-15.5) % Carbon Dioxide (22-30) mmol/L Glucose (74-99) mg/dL POC Glucose (mg/dL) 67 L 62 L (75-99) mg/dL AST (17-59) U/L Total Protein (6.3-8.2) g/dL Albumin (3.5-5.0) g/dL Microbiology - Last 24 Hours (Table) 07/15/19 00:42 Stool Culture - Final Stool Assessment and Plan Plan: C.diff colitis -Abx switched to dificid per ID -Contact isolation. -Toradol and mophine for pain -GI consulted, no plans for colonoscopy Paroxysmal A-fib -Continue AC as no evidence of bleeding found -Continue cardizem Hypoglycemia: Unclear etiology Patient has history of gastric sleeve which could be interfering with his insulin metabolism in the setting of acute colitis Started on D10 in water gtt with BLOOD sugar checks every 2 hours. COPD -C/w home meds General weakness: PT/OT DVT prophylaxis -IPCDs Anticipated discharge date: 07/22/[address]: Rehab
[2019-07-19] MEDS ORDERED: DEXTROSE 4 GM CHEWABLE PO PRN (12:00)
[2019-07-19 12:01] LABS: Glucose,Whole Blood 48 mg/dL (75-99)
[2019-07-19 12:09] LABS: Glucose,Whole Blood 62 mg/dL (75-99)
[2019-07-19 13:24] LABS: Glucose,Whole Blood 57 mg/dL (75-99)
[2019-07-19 13:24] LABS: Glucose,Whole Blood 31 mg/dL (75-99)
[2019-07-19 13:24] LABS: Glucose,Whole Blood 41 mg/dL (75-99)
[2019-07-19 17:07] LABS: Glucose,Whole Blood 71 mg/dL (75-99)
--- NOTE | 2019-07-19 17:09 | PN ---
PROGRESS NOTE DATE OF SERVICE: 07/19/2019. REASON FOR FOLLOWUP: Recurrent C difficile colitis. INTERVAL HISTORY: The patient is currently afebrile. The patient mentioned he had about 4 to 8 episodes of loose stool yesterday but only one since morning. Still complaining of right-sided abdominal pain, but no worsening. Denies any chest pain, shortness of breath or cough. His main concern remains low blood sugar. PHYSICAL EXAMINATION: Blood pressure 133/62 with a pulse of 85, temperature of 98. He is 95% on 3 L nasal cannula. General description is a middle-aged male lying in bed in no distress. RESPIRATORY SYSTEM: Unlabored breathing. Clear to auscultation anteriorly. HEART: S1, S2. Regular rate and rhythm. ABDOMEN: Soft. No tenderness. LABS: No new labs have been obtained today. DIAGNOSTIC IMPRESSION AND PLAN: Patient with Clostridium difficile colitis, recurrent episode. This patient did have multiple C difficile episodes in the past and has failed a tapering course of oral vancomycin. Currently on Dificid; seems to have shown some clinical improvement. Recommend keeping the patient on oral Dificid to finish a 10-day course of therapy. Also advised him to increase his probiotic and yogurt intake. Continue with supportive care. MMODL / IJN: [id number] /
[2019-07-19] MEDS: MELATONIN 5 MG TABLET PO SCH (22:11)
[2019-07-19] MEDS: OLANZapine 10 MG TAB PO SCH (22:11)
[2019-07-20 05:11] LABS: Glucose,Whole Blood 92 mg/dL (75-99)
[2019-07-20 05:57] LABS: HCT 34.2 % (39.0-53.0); HGB 10.9 gm/dL (13.0-17.5); Hypochromasia Moderate; MCH 27.6 pg (25.0-35.0); MCHC 31.9 g/dL (31.0-37.0); MCV 86.5 fL (80.0-100.0); Mean Platelet Volume 8.2; Platelet Count 292 k/uL (150-450); RBC 3.96 m/uL (4.30-5.90); RDW 15.5 % (11.5-15.5); WBC 6.2 k/uL (3.8-10.6)
[2019-07-20 06:13] LABS: African American GFR (CKD) >90 (>60 ml/min/1.73 sqM); Anion Gap -1 mmol/L; Blood Urea Nitrogen 11 mg/dL (9-20); Calcium 9.7 mg/dL (8.4-10.2); Carbon Dioxide 40 mmol/L (22-30); Chloride 98 mmol/L (98-107); Glucose 99 mg/dL (74-99); Non-African American GFR(CKD) >90 (>60 ml/min/1.73 sqM); Potassium 4.2 mmol/L (3.5-5.1); Sodium 137 mmol/L (137-145)
[2019-07-20 06:31] LABS: Glucose,Whole Blood 85 mg/dL (75-99)
[2019-07-20] MEDS: DEXTROSE 10% IN WATER 1,000 ML IV SCH ×2 (06:43→16:48)
[2019-07-20] MEDS: IPRATROPIUM-ALBUTEROL 3 ML NEB INHALATION SCH ×4 (07:03→19:07)
[2019-07-20] MEDS: FLUTICASONE 110 MCG INHALER INHALATION SCH ×2 (07:03→19:08)
[2019-07-20] MEDS: INSULIN ASPART (NovoLOG) 100 UNIT/ML VIAL SQ SCH ×4 (08:34→20:30)
[2019-07-20] MEDS: ASPIRIN 81 MG PO SCH (08:55)
[2019-07-20] MEDS: PANTOPRAZOLE 40 MG TABLET PO SCH (08:55)
[2019-07-20] MEDS: GABAPENTIN 300 MG CAP PO SCH (08:55)
[2019-07-20] MEDS: MAGNESIUM OXIDE 400 MG TAB PO SCH ×2 (08:55→21:17)
[2019-07-20] MEDS: SUCRALFATE 1 GM TAB PO SCH ×3 (08:55→16:48)
[2019-07-20] MEDS: CHOLECALCIFEROL 1,000 UNIT TAB PO SCH (08:55)
[2019-07-20] MEDS: DILTIAZEM ORAL 30 MG TAB PO SCH ×4 (08:56→23:54)
[2019-07-20] MEDS: MORPHINE SULFATE ER 15 MG TABLET PO SCH ×2 (08:56→21:17)
[2019-07-20] MEDS: busPIRone HCl 5 MG TAB PO SCH ×2 (08:56→21:17)
[2019-07-20] MEDS: RIVAROXABAN 20 MG TAB PO SCH (08:57)
[2019-07-20] MEDS: FIDAXOMICIN 200 MG TABLET PO SCH ×2 (08:57→21:17)
--- NOTE | 2019-07-20 09:09 | P.PN ---
Subjective Progress Note Date: 07/20/19 Principal diagnosis: Diarrhea and generalized weakness Patient is doing better today. Diarrhea has decreased significantly. No fevers or chills. Blood sugar still borderline, started on D10 drip. Objective - Vital Signs Vital signs: Vital Signs Temp 97.0 F L 07/20/19 04:00 Pulse 84 07/20/19 07:21 Resp 12 07/20/19 07:00 BP 119/63 07/20/19 07:00 Pulse Ox 93 L 07/20/19 07:00 Intake & Output 07/19/19 07/20/19 07/20/19 18:59 06:59 18:59 Intake Total 640 2450 100 Output Total 700 2250 700 Balance -60 200 -600 Weight 195.9 kg Intake: IV 100 1200 100 Dextrose 10% in Water 1, 100 1200 100 000 ml @ 100 mls/hr IV . Q10H [facility] Rx#:[id number] Oral 540 1250 Output: Urine 700 2250 700 Other: Voiding Method Urinal Urinal # Voids 2 1 0 # Bowel Movements 1 1 - Exam Constitutional: No acute distress, conversant, pleasant Eyes:Anicteric sclerae, moist conjunctiva, no lid-lag, PERRLA, ENMT: Oropharynx clear, no erythema, exudates Neck: Supple, FROM, no masses, or JVD, No carotid bruits, No thyromegaly Lungs: Clear to auscultation, Clear to percussion, Normal respiratory effort, no accessory muscle use Cardiovascular: Heart regular in rate and rhythm, No murmurs, gallops, or rubs, No peripheral edema Abdominal: Soft, right-sided abdominal tenderness. no guarding, rebound or rigidity, Normoactive bowel sounds, No hepatomegaly, No splenomegaly, No palpable mass Skin: Normal temperature, tone, texture, turgor, no induration, No subcutaneous nodules, No rash, lesions, No ulcers Extremities: No digital cyanosis, No clubbing, Pedal pulses intact and symmetrical, Radial pulses intact and symmetrical, No calf tenderness Psychiatric: Alert and oriented to person, place and time, appropriate affect, intact judgement Neuro: Gen. weakness, no focal sensory deficits - Labs CBC & Chem 7: 07/20/19 05:34 07/20/19 05:34 Labs: Abnormal Lab Results - Last 24 Hours (Table) 07/19/19 07/19/19 07/19/19 Range/Units 11:42 12:07 12:25 RBC (4.30-5.90) m/uL Hgb (13.0-17.5) gm/dL Hct (39.0-53.0) % Carbon Dioxide (22-30) mmol/L Glucose (74-99) mg/dL POC Glucose (mg/dL) 48 L 62 L 57 L (75-99) mg/dL Insulin Level (3.0-25.0) mIU/mL 07/19/19 07/19/19 07/19/19 Range/Units 12:46 13:04 13:13 RBC (4.30-5.90) m/uL Hgb (13.0-17.5) gm/dL Hct (39.0-53.0) % Carbon Dioxide (22-30) mmol/L Glucose 173 H (74-99) mg/dL POC Glucose (mg/dL) 31 L 41 L (75-99) mg/dL Insulin Level (3.0-25.0) mIU/mL 07/19/19 07/19/19 07/19/19 Range/Units 14:44 17:04 17:06 RBC (4.30-5.90) m/uL Hgb (13.0-17.5) gm/dL Hct (39.0-53.0) % Carbon Dioxide (22-30) mmol/L Glucose 71 L (74-99) mg/dL POC Glucose (mg/dL) 71 L (75-99) mg/dL Insulin Level 40.3 H (3.0-25.0) mIU/mL 07/20/19 07/20/19 Range/Units 05:34 05:34 RBC 3.96 L (4.30-5.90) m/uL Hgb 10.9 L (13.0-17.5) gm/dL Hct 34.2 L (39.0-53.0) % Carbon Dioxide 40 H (22-30) mmol/L Glucose (74-99) mg/dL POC Glucose (mg/dL) (75-99) mg/dL Insulin Level (3.0-25.0) mIU/mL Microbiology - Last 24 Hours (Table) 07/15/19 00:42 Stool Culture - Final Stool Assessment and Plan Plan: C.diff colitis -Abx switched to dificid per ID -Contact isolation. -Toradol and mophine for pain, add [place] for breakthrough pain -GI consulted, no plans for colonoscopy Paroxysmal A-fib -Continue AC as no evidence of bleeding found -Continue cardizem Hypoglycemia: Unclear etiology Insulin level high, cortisol level low Called Dr. Thompson's office, awaiting callback Continue on D10 in water gtt with BLOOD sugar checks every 2 hours. COPD -C/w home meds General weakness: PT/OT DVT prophylaxis -IPCDs Anticipated discharge date: 07/22/[address]: Home
[2019-07-20 11:08] LABS: Glucose,Whole Blood 45 mg/dL (75-99)
--- NOTE | 2019-07-20 12:56 | CDI ---
Documentation Clarification Form Date: 07/20/2019 12:47:24 PM From: Saima LylesDiazMICHAEL, CCDS Admit Date: 07/16/2019 2:08:00 PM Patient Name: Donavon Saha Visit Number: [id number] Discharge Date: ATTENTION: The Clinical Documentation Specialists (CDI) and [facility] Coding Staff appreciate your assistance in clarifying documentation. Please respond to the clarification below the line at the bottom and electronically sign. The CDI & [facility] Coding staff will review the response and follow-up if needed. Please note: Queries are made part of the Legal Health Record. If you have any questions, please contact the author of this message via ITS. Dr. Robert Hernandez: Per the ED note, the patient has a history of hypoglycemia. Per the 07/19 PN, "patient is having episodes of hypoglycemia... " History/Risk Factors: DM, DVT, PE, GERD, COPD, OA, Sleep apnea. Former smoker & history of IV drug use. Clinical Indicators: Presented with abdominal pain & diarrhea. Diagnosed with C diff colitis. LAB: Glucose: 125^ - (89) - (86) - 203^ - 106^ - (96) - (95) - (77) - 173^^ - 71* - (99) Treatment: IV Dilaudid, IV Zofran, IV Ms, IV MagSulfate, INH Albuterol, IV Toradol, po Vanco, po Dificid, IV Dextrose/Water In order to capture the severity of Illness and necessary documentation specificity, please clarify: DM Type 2 o With Hypoglycemia o With Hyperglycemia, present on admission: Yes or No Other, please specify Unable to Determine (Last Revision: August 2017) Type 2 diabetes with hypoglycemia MTDD
[2019-07-20] MEDS: HYDROcodone/APAP 7.5-325MG 1 EACH TAB PO PRN ×2 (16:48→23:54)
--- NOTE | 2019-07-20 17:40 | PN ---
PROGRESS NOTE DATE OF SERVICE: 07/20/2019. REASON FOR FOLLOWUP: C difficile colitis. INTERVAL HISTORY: The patient has been transferred down to the ICU because of persistent hypoglycemia. The patient denies having a headache or chest pain or shortness of breath or cough. Abdominal pain -- no worsening. The patient's diarrhea has slowed down, slightly forming up. No blood or mucus in the stool. No nausea. No vomiting. PHYSICAL EXAMINATION: Blood pressure 124/75 with pulse of 85, temperature 97.8. He is 98% on 3 L nasal cannula. General description is a middle-aged male lying in bed in no distress. RESPIRATORY SYSTEM: Unlabored breathing. Clear to auscultation anteriorly. HEART: S1, S2. Regular rate and rhythm. ABDOMEN: Soft. No tenderness. LABS: Hemoglobin is 10.9, white count 6.2, BUN of 11, creatinine 0.74. DIAGNOSTIC IMPRESSION AND PLAN: Patient with recurrent Clostridium difficile colitis in this patient who has failed tapering course of oral vancomycin. Currently on Dificid and seems to have shown clinical improvement. Recommend keeping the patient on Dificid to finish a 10-day course of therapy and monitoring his clinical course closely. Continue with supportive care. MMODL / IJN: [id number] /
[2019-07-20] MEDS: OLANZapine 10 MG TAB PO SCH (21:18)
[2019-07-20 23:35] VITALS: BP 118/95; PULSE 81; RESP 16
[2019-07-21] MEDS: MELATONIN 5 MG TABLET PO SCH (00:22)
[2019-07-21 00:42] VITALS: TEMP 98.7
--- NOTE | 2019-07-21 09:09 | P.DS ---
Providers Date of admission: 07/16/19 14:08 Expected date of discharge: 07/21/19 Attending physician: Alejandra Mak MD Consults: 07/16/19 17:35 Consult Physician Routine Consulting Provider: Leonides Whitt Consult Reason/Comments: c.diff Do you want consulting provider notified?: Yes 07/20/19 07:36 Consult Physician Routine Consulting Provider: Fanny Thompson Consult Reason/Comments: hypoglycemia Do you want consulting provider notified?: Yes Primary care physician: [facility] Course: 58-year-old male with a PMH of diastolic chf, afib (on Xarelto), pseudoseizure s, morbid obesity, sleeve gastrectomy, COPD, diabetes mellitus, anxiety, depression, and bipolar disorder who presented to the ED with complaints of abdominal pain and diarrhea. Patient has been suffering from soft and watery stools for the past 3 months. He states that he was at [facility] for 6 weeks where he underwent testing for C. diff multiple times which always returned negative. He also endorsed a chronic diffuse abdominal pain, which was 6/10 in intensity. The patient also noticed an episode of bright red blood in his stool on the day of admission. He denied fever, chills, vomiting, chest pain, SOB, dizziness, or headaches. In the emergency department workup revealed WBC count 7.4, hemoglobin 11.9, platelets 269, CO2 38, Glucose 125, BUN 10, and Cr 0.73. The patient also had an acute abdomen series which revealed a nonacute abdomen. Patient was admitted, he was started on IV fluids. He was seen by GI and ID. Initial C. diff toxin was negative but he subsequently had PCR testing which came back positive. Because of that he was started on vancomycin initially, then ID economic consultant switch him to dificid. Initially throughout the hospitalization he was having 6-8 watery bowel movements every day but towards the end of it the diarrhea started to improve. GI did not advise colonoscopy. His blood glucose was noted to be on the low side, he was testing 30s and 40s on fingersticks, and once he was given IV dextrose and juices it would come up but not substantially. He was started on D5 initially but kept having episodes of hypoglycemia so he was transitioned to D10. I tried to call Dr. Thompson from endocrinology service, unfortunately she was not available for consult. Because of that patient was transferred to [facility] for inpatient endocrinology evaluation. Case discussed with care management and nursing. Time for discharge 35 minutes. Patient Condition at Discharge: Fair Plan - Discharge Summary New Discharge Prescriptions: No Action OLANZapine [ZyPREXA] 20 mg PO HS Rivaroxaban [Xarelto] 20 mg PO DAILY HYDROcodone/APAP 5-325MG [[place] 5-325] 1 tab PO Q8H PRN PRN Reason: Pain Diphenox-Atrop 2.5-0.025 mg [Lomotil] 1 tab PO QID PRN PRN Reason: Diarrhea Gabapentin [Neurontin] 600 mg PO DAILY busPIRone HCl [Buspar] 5 mg PO BID Diltiazem HCl 30 mg PO Q6H DULoxetine HCL [Cymbalta] 40 mg PO DAILY Ergocalciferol (Vitamin D2) [Vitamin D2] 50,000 unit PO MO Discharge Medication List OLANZapine [ZyPREXA] 20 mg PO HS 03/18/19 [History] Diphenox-Atrop 2.5-0.025 mg [Lomotil] 1 tab PO QID PRN 07/14/19 [History] Gabapentin [Neurontin] 600 mg PO DAILY 07/14/19 [History] HYDROcodone/APAP 5-325MG [[place] 5-325] 1 tab PO Q8H PRN 07/14/19 [History] Rivaroxaban [Xarelto] 20 mg PO DAILY 07/14/19 [History] DULoxetine HCL [Cymbalta] 40 mg PO DAILY 07/15/19 [History] Diltiazem HCl 30 mg PO Q6H 07/15/19 [History] Ergocalciferol (Vitamin D2) [Vitamin D2] 50,000 unit PO MO 07/15/19 [History] busPIRone HCl [Buspar] 5 mg PO BID 07/15/19 [History] Follow up Appointment(s)/Referral(s): [facility], [NON-STAFF] - Hugo Bailey MD [Primary Care Provider] - 1-2 days Discharge Disposition: DC/TRNS IP HOSP W/PLND IP READ
== END 2019-07-21 01:18 | disposition short-term general hospital (02) | DRG 372 ==
LOC: EC 19:13 → 4MS4W 07-15 03:10 → OBSVTOIN 07-16 14:08 → 2SICU 07-19 16:39
PROVIDERS: ADMIT Internal Medicine; ATTEND Internal Medicine
DX: A04.71 Enterocolitis due to Clostridium difficile, recurrent (principal); E87.3 Alkalosis; I50.32 Chronic diastolic (congestive) heart failure; K92.2 Gastrointestinal hemorrhage, unspecified; Z68.43 Body mass index [BMI] 50.0-59.9, adult; E11.649 Type 2 diabetes mellitus with hypoglycemia without coma; E83.42 Hypomagnesemia; F25.9 Schizoaffective disorder, unspecified; I48.0 Paroxysmal atrial fibrillation; M41.9 Scoliosis, unspecified; E66.01 Morbid (severe) obesity due to excess calories; F44.5 Conversion disorder with seizures or convulsions; E78.5 Hyperlipidemia, unspecified; F40.240 Claustrophobia; F41.0 Panic disorder [episodic paroxysmal anxiety]; G47.30 Sleep apnea, unspecified; J44.9 Chronic obstructive pulmonary disease, unspecified; K21.9 Gastro-esophageal reflux disease without esophagitis; K44.9 Diaphragmatic hernia without obstruction or gangrene; M19.90 Unspecified osteoarthritis, unspecified site; R33.9 Retention of urine, unspecified; F32.9 Major depressive disorder, single episode, unspecified; Z79.01 Long term (current) use of anticoagulants; Z79.02 Long term (current) use of antithrombotics/antiplatelets; Z79.82 Long term (current) use of aspirin; Z79.899 Other long term (current) drug therapy; Z88.1 Allergy status to other antibiotic agents; Z88.5 Allergy status to narcotic agent; Z88.8 Allergy status to other drugs, medicaments and biological substances; Z85.828 Personal history of other malignant neoplasm of skin; Z86.711 Personal history of pulmonary embolism; Z86.718 Personal history of other venous thrombosis and embolism; Z98.84 Bariatric surgery status; Z87.891 Personal history of nicotine dependence; Z87.01 Personal history of pneumonia (recurrent); Z86.14 Personal history of Methicillin resistant Staphylococcus aureus infection; Z86.010 Personal history of colon polyps; Z90.49 Acquired absence of other specified parts of digestive tract; Z96.641 Presence of right artificial hip joint; Z80.1 Family history of malignant neoplasm of trachea, bronchus and lung
CPT/HCPCS: 36415; 74022; 80048; 80053; 81003; 82272; 82533; 82550; 82941; 82943; 82947; 83519; 83525; 83605; 83630; 83690; 83735; 84100; 84206; 84484; 84586; 85025; 85027; 85610; 85730; 87045; 87046; 87324; 94640; 96374; 96375; 99285

== ENCOUNTER 2019-07-28 00:02 | Emergency (ER) | payer MEDICARE, BC ==
[2019-07-28 01:26] LABS: Basophils % (A) 0 %; Eosinophils # (A) 0.3 k/uL (0-0.7); Eosinophils % (A) 3 %; HCT 35.8 % (39.0-53.0); HGB 11.2 gm/dL (13.0-17.5); Lymphocytes # (A) 1.7 k/uL (1.0-4.8); Lymphocytes % (A) 17 %; MCH 26.7 pg (25.0-35.0); MCHC 31.2 g/dL (31.0-37.0); MCV 85.7 fL (80.0-100.0); Mean Platelet Volume 7.6; Monocytes # (A) 0.6 k/uL (0-1.0); Monocytes % (A) 6 %; Neutrophils # (A) 7.1 k/uL (1.3-7.7); Neutrophils % (A) 72 %; Platelet Count 302 k/uL (150-450); RBC 4.18 m/uL (4.30-5.90); RDW 15.8 % (11.5-15.5); WBC 9.8 k/uL (3.8-10.6)
[2019-07-28 01:35] LABS: Partial Thromboplastin Time 37.1 sec (22.0-30.0); Prothrombin Time 10.9 sec (9.0-12.0)
[2019-07-28 01:42] LABS: ALT 34 U/L (21-72); AST 22 U/L (17-59); African American GFR (CKD) >90 (>60 ml/min/1.73 sqM); Albumin 3.3 g/dL (3.5-5.0); Alkaline Phosphatase 109 U/L (38-126); Blood Urea Nitrogen 16 mg/dL (9-20); Calcium 9.7 mg/dL (8.4-10.2); Chloride 96 mmol/L (98-107); Glucose 99 mg/dL (74-99); Magnesium 1.8 mg/dL (1.6-2.3); Potassium 4.1 mmol/L (3.5-5.1); Sodium 140 mmol/L (137-145); Total Bilirubin 0.3 mg/dL (0.2-1.3); Total Protein 5.9 g/dL (6.3-8.2)
--- NOTE | 2019-07-28 01:42 | ED ---
Chest Pain HPI - General Chief Complaint: Chest Pain Stated Complaint: chest pain Time Seen by Provider: 07/28/19 00:13 Source: patient, EMS Mode of arrival: EMS Limitations: physical limitation - History of Present Illness Initial Comments: Donavon Saha is a 58-year-old gentleman with an extensive past medical history who presents to the emergency department tonight with a multitude of vague complaints. Patient was recently admitted to our hospital but found to become hypoglycemic and subsequently transferred to an outside facility for evaluation by endocrinology. Patient remained in the hospital for a number of days and was discharged earlier if evening. Patient states that after being discharged home he began to feel some vague discomfort that radiated throughout both sides of his chest. Upon reevaluation patient states that he came to the emergency department due to numbness and tingling in his feet that began 2-3 days ago when asked if he discussed this with the admitting physician at the hospital he was admitted to earlier today patient stated that he just realized that the began this morning prior to being discharged and he did not discuss it with the physician. - Related Data Home Medications Medication Instructions Recorded Confirmed OLANZapine [ZyPREXA] 20 mg PO HS 03/18/19 07/15/19 Diphenox-Atrop 2.5-0.025 mg 1 tab PO QID PRN 07/14/19 07/15/19 [Lomotil] Gabapentin [Neurontin] 600 mg PO DAILY 07/14/19 07/14/19 HYDROcodone/APAP 5-325MG [[place] 1 tab PO Q8H PRN 07/14/19 07/15/19 5-325] Rivaroxaban [Xarelto] 20 mg PO DAILY 07/14/19 07/15/19 DULoxetine HCL [Cymbalta] 40 mg PO DAILY 07/15/19 07/15/19 Diltiazem HCl 30 mg PO Q6H 07/15/19 07/15/19 Ergocalciferol (Vitamin D2) 50,000 unit PO MO 07/15/19 07/15/19 [Vitamin D2] busPIRone HCl [Buspar] 5 mg PO BID 07/15/19 07/15/19 Allergies Allergy/AdvReac Type Severity Reaction Status Date / Time codeine Allergy Severe Swelling Verified 07/15/19 13:28 OF THROAT WITH COUGH SYRUP chlorpheniramine Allergy Unknown Verified 07/15/19 13:28 febuxostat [From Uloric] Allergy Unknown Verified 07/15/19 13:28 phenylephrine Allergy Unknown Verified 07/15/19 13:28 piperacillin sodium Allergy Unknown Verified 07/15/19 13:28 [From Zosyn] tazobactam sodium Allergy Unknown Verified 07/15/19 13:28 [From Zosyn] Review of Systems ROS Statement: Those systems with pertinent positive or pertinent negative responses have been documented in the HPI. ROS Other: All systems not noted in ROS Statement are negative. EKG Findings - EKG Comments: EKG Findings:: EKG was obtained due to complaint of chest pain, EKG was obtained at 12:31 AM, rate is 84 rhythm sinus there is normal axis, ID is 180, QRS is 122, QTc is 472 there are no acute ST elevations or depressions is no evidence of acute ischemia or infarction. Past Medical History Past Medical History: Asthma, Cancer, COPD, Diabetes Mellitus, Deep Vein Thrombosis (DVT), GERD/Reflux, GI Bleed, Hyperlipidemia, Osteoarthritis (OA), Pneumonia, Pulmonary Embolus (PE), Renal Disease, Sleep Apnea/CPAP/BIPAP Additional Past Medical History / Comment(s): HYPOGLYCEMIA. NO C-PAP. DDD, SCOLIOSIS OF SPINE, SLEEPS IN RECLINER. HAVING . HX OF SKIN CANCER , Hiatal Hernia. Irregular HR in the past. DVT IN LEG, WENT TO LUNG - AFTER HIP SURG. BLOOD IN STOOL,RENAL DISEASE-STAGE 3," RETAINS FLUIDS " History of Any Multi-Drug Resistant Organisms: MRSA Date of last positivie culture/infection: AUG 2014 MDRO Source:: NASAL Past Surgical History: Appendectomy, Bariatric Surgery, Heart Catheterization, Hernia Repair, Joint Replacement, Orthopedic Surgery Additional Past Surgical History / Comment(s): RT ELBOW SURG X2, TOTAL RT HIP,ARTHROSCOPIC LT KNEE X2, RT ANKLE RECONSTRUCTIVE SURG, JANUARY 2014 GASTRIC SLEEVE, COLONOSCOPY'S. Basal Cell CA Face, Back. LT ING HERNIA Past Anesthesia/Blood Transfusion Reactions: Previous Problems w/ Anesthesia Additional Past Anesthesia/Blood Transfusion Reaction / Comment(s): STATES HE WAS TOLD HE WAS A DIFFICULT INTUBATION WITH GASTRIC SLEEVE SURGERY, Past Psychological History: Anxiety, Depression, Panic Disorder, Schizoaffective Disorder Additional Psychological History / Comment(s): STATES PARANOID AT TIMES, claustr ophobic, states very nervous about having general anesthesia. Smoking Status: Former smoker Past Alcohol Use History: None Reported Additional Past Alcohol Use History / Comment(s): STARTED SMOKING AT AGE 15 QUIT SMOKING 1998, smoked 4 cigerettes- 1PPD FORMER ETOH ABUSE. Pt states QUIT 2012 Past Drug Use History: IV Drug Use Additional Drug Use History / Comment(s): PAST HX OF MARIJUANA USE, DENIES USE IN YEARS. - Past Family History Father Family Medical History: Cancer Additional Family Medical History / Comment(s): LUNG CA General Exam - General Exam Comments Initial Comments: Physical Exam GENERAL: Chronically ill-appearing, morbidly obese, bedbound HENT: Normocephalic, Atraumatic. EYES: PERRL, EOMI PULMONARY: Unlabored respirations. No audible rales rhonchi or wheezing was noted. CARDIOVASCULAR: RRR Warm and well perfused extremities ABDOMEN: Soft and nontender with normal bowel sounds. SKIN: Skin color changes on abdomen consistent with recent heparin injections Chronic changes of bilateral lower extremities : Deferred NEUROLOGIC: Patient is alert and oriented x3. Moving all extremities spontaneously MUSCULOSKELETAL: Normal extremities with adequate strength and full range of motion. No lower extremity swelling or edema. No calf tenderness. PSYCHIATRIC: Helpless affect Limitations: physical limitation Course Vital Signs 07/28/19 07/28/19 07/28/19 00:08 04:00 05:25 Temperature 97.7 F 97.8 F Pulse Rate 80 78 88 Respiratory 20 18 20 Rate Blood Pressure 128/75 133/82 127/81 O2 Sat by Pulse 96 94 L 100 Oximetry Chest Pain MDM - [facility] The patient was seen and evaluated, upon arrival the patient complaining of vague diffuse chest pain that began 2 hours prior to arrival in the emergency department EKG is nonischemic Labs and imaging ordered Labs and imaging were unremarkable, due to patient having chest pain for only 2 hours decision was made to repeat the troponin 3 hours. Repeat troponin was again negative Upon reevaluation discussing with the patient that his chest pain workup is negative at this point, patient began complaining of numbness in the bilateral lower extremities which is been present for a couple of days, patient reports he's not numb they just feel tingly. Patient is minimally mobile at baseline. He is able to move his feet. They're warm and well perfused. At this time I do not feel there is any indication for admission to the hospital. Patient has refused admission into nursing homes in the past, he repeatedly returns to the emergency department seeking admission to the hospital because his insurance will not cover him staying in a fci. At this time I advised the patient he will be discharged home he follow up outpatient with his primary care physician. Disposition Clinical Impression: Atypical chest pain Disposition: HOME SELF-CARE Instructions (If sedation given, give patient instructions): Chest Pain (ED), Costochondritis (ED) Is patient prescribed a controlled substance at d/c from ED?: No Referrals: Hugo Bailey MD [Primary Care Provider] - 1-2 days
[2019-07-28 01:48] LABS: Anion Gap 6 mmol/L
[2019-07-28 01:53] LABS: Carbon Dioxide 38 mmol/L (22-30)
--- NOTE | 2019-07-28 02:08 | XR ---
EXAM: XR Chest, 2 Views CLINICAL HISTORY: ITS.REASON XR Reason: Chest Pain TECHNIQUE: Frontal and lateral views of the chest. COMPARISON: 07/14/19 FINDINGS/IMPRESSION: Limited by body habitus and summation. Patient rotated. Cardiac and mediastinal silhouette appear unchanged in size and contour allowing for differences in technique. There is some silhouetting of the right heart border. Right pleural effusion with suggestion of pleural fluid in right lung fissures. Increasing right lung opacity. Findings may represent combination of atelectasis and pneumonia. Correlate clinically. Recommend follow-up to resolution.
[2019-07-28] MEDS ORDERED: KETOROLAC 30 MG/ML 1 ML VIAL IVP STA (05:13)
[2019-07-28 05:21] LABS: Glucose,Whole Blood 85 mg/dL (75-99)
[2019-07-28 05:26] VITALS: BP 127/81; PULSE 88; RESP 20; TEMP 97.8
== END 2019-07-28 06:20 | disposition home or self-care (01) ==
LOC: EC 00:02
DX: R07.89 Other chest pain (principal); R20.0 Anesthesia of skin; R20.2 Paresthesia of skin; M19.90 Unspecified osteoarthritis, unspecified site; N18.3 Chronic kidney disease, stage 3 (moderate); F32.9 Major depressive disorder, single episode, unspecified; F41.9 Anxiety disorder, unspecified; Z87.891 Personal history of nicotine dependence; Z88.0 Allergy status to penicillin; Z88.5 Allergy status to narcotic agent; Z88.8 Allergy status to other drugs, medicaments and biological substances; Z79.01 Long term (current) use of anticoagulants; Z79.899 Other long term (current) drug therapy; Z86.711 Personal history of pulmonary embolism; Z86.718 Personal history of other venous thrombosis and embolism; Z86.14 Personal history of Methicillin resistant Staphylococcus aureus infection; Z85.828 Personal history of other malignant neoplasm of skin; Z96.641 Presence of right artificial hip joint; Z98.890 Other specified postprocedural states; Z74.01 Bed confinement status
CPT/HCPCS: 36415; 93005; 83880; 80053; 83735; 84484; 85025; 85610; 85730; 71046; 99285; 96374; J1885

== ENCOUNTER 2019-08-03 10:53 | Inpatient (IN) | payer MEDICARE, BC ==
--- NOTE | 2019-08-03 11:45 | ED ---
SOB HPI - General Chief Complaint: Shortness of Breath Stated Complaint: SOB, Poss Blood Clot Time Seen by Provider: 08/03/19 11:00 Source: patient Mode of arrival: ambulatory Limitations: no limitations - History of Present Illness Initial Comments: The patient is a 58-year-old male with past medical history of COPD, CHF who presents emergency Department with reported shortness of breath and lower extremity edema. The patient states that he has had multiple recent hospital admissions. He was seen at [facility] for hypoglycemia after being transferred from our facility. After discharge he went home. He reports to a 10 pound weight gain with increased bilateral lower extremity edema. Reports to increasing short of shortness of breath. He is on 3 L of oxygen at all times. States it has not been sufficient for him. He denies productive cough. Does report to chest pain. He was seen previously in her emergency department and released home as he did have negative troponins. Patient reports that the chest pain has continued. He denies ripping or tearing sensation to his back. Does admit to a history of DVT. Patient is not currently on any anticoagulation. He denies any any associated nausea, vomiting or diaphoresis. Does not take any diuretics. States he is taken off Lasix during his last hospital admission. He denies any additional symptoms to include productive cough, headache, neck pain, back pain, flank pain, unilateral numbness or weakness. There are no other alleviating, precipitating or modifying factors - Related Data Home Medications Medication Instructions Recorded Confirmed OLANZapine [ZyPREXA] 20 mg PO HS 03/18/19 08/03/19 Gabapentin [Neurontin] 600 mg PO DAILY 07/14/19 08/03/19 HYDROcodone/APAP 5-325MG [[place]osevelt 1 tab PO Q6H PRN 07/14/19 08/03/19 5-325] Rivaroxaban [Xarelto] 20 mg PO DAILY 07/14/19 08/03/19 DULoxetine HCL [Cymbalta] 40 mg PO DAILY 07/15/19 08/03/19 Diltiazem HCl 30 mg PO Q6H 07/15/19 08/03/19 busPIRone HCl [Buspar] 5 mg PO BID 07/15/19 08/03/19 Albuterol Inhaler [Ventolin Hfa 1 - 2 puff INHALATION RT-Q6H PRN 08/03/19 0 08/03/19 Inhaler] Aspirin EC [Ecotrin Low Dose] 81 mg PO DAILY 08/03/19 08/03/19 Atorvastatin [Lipitor] 10 mg PO HS 08/03/19 08/03/19 Ergocalciferol (Vitamin D2) 50,000 unit PO WE 08/03/19 08/03/19 [Vitamin D2] Hydrocortisone [Cortef] 10 mg PO BID 08/03/19 08/03/19 Lidocaine 5% Patch [Lidoderm 5% 1 patch TOPICAL DAILY 08/03/19 08/03/19 Patch] Melatonin 5 mg PO HS 08/03/19 08/03/19 Polyethylene Glycol 3350 [Miralax] 17 gm PO Q3D PRN 08/03/19 08/03/19 Tiotropium 18 Mcg/Puff [Spiriva] 1 puff INHALATION RT-DAILY 08/03/19 08/03/19 Previous Rx's Medication Instructions Recorded Furosemide [Lasix] 40 mg PO BID #60 08/07/19 Potassium Chloride ER [K-Dur 20] 20 meq PO DAILY #30 tab 08/07/19 Allergies Allergy/AdvReac Type Severity Reaction Status Date / Time codeine Allergy Severe Swelling Verified 08/03/19 12:32 OF THROAT WITH COUGH SYRUP chlorpheniramine Allergy Unknown Verified 08/03/19 12:32 febuxostat [From Uloric] Allergy Unknown Verified 08/03/19 12:32 phenylephrine Allergy Unknown Verified 08/03/19 12:32 piperacillin sodium Allergy Unknown Verified 08/03/19 12:32 [From Zosyn] tazobactam sodium Allergy Unknown Verified 08/03/19 12:32 [From Zosyn] Review of Systems ROS Statement: Those systems with pertinent positive or pertinent negative responses have been documented in the HPI. ROS Other: All systems not noted in ROS Statement are negative. Past Medical History Past Medical History: Asthma, Cancer, COPD, CVA/TIA, Diabetes Mellitus, Deep Vein Thrombosis (DVT), GERD/Reflux, GI Bleed, Hyperlipidemia, Osteoarthritis (OA), Pneumonia, Pulmonary Embolus (PE), Renal Disease, Sleep Apnea/CPAP/BIPAP Additional Past Medical History / Comment(s): HYPOGLYCEMIA. NO C-PAP. DDD, SCOLIOSIS OF SPINE, SLEEPS IN RECLINER. HAVING . HX OF SKIN CANCER , Hiatal Hernia. Irregular HR in the past. DVT IN LEG, WENT TO LUNG - AFTER HIP SURG. BLOOD IN STOOL,RENAL DISEASE-STAGE 3," RETAINS FLUIDS " History of Any Multi-Drug Resistant Organisms: MRSA Date of last positivie culture/infection: AUG 2014 MDRO Source:: NASAL Past Surgical History: Appendectomy, Bariatric Surgery, Heart Catheterization, Hernia Repair, Joint Replacement, Orthopedic Surgery Additional Past Surgical History / Comment(s): RT ELBOW SURG X2, TOTAL RT HIP,ARTHROSCOPIC LT KNEE X2, RT ANKLE RECONSTRUCTIVE SURG, JANUARY 2014 GASTRIC SLEEVE, COLONOSCOPY'S. Basal Cell CA Face, Back. LT ING HERNIA Past Anesthesia/Blood Transfusion Reactions: Previous Problems w/ Anesthesia Additional Past Anesthesia/Blood Transfusion Reaction / Comment(s): STATES HE WAS TOLD HE WAS A DIFFICULT INTUBATION WITH GASTRIC SLEEVE SURGERY, Past Psychological History: Anxiety, Depression, Panic Disorder, Schizoaffective Disorder Smoking Status: Former smoker Past Alcohol Use History: None Reported Past Drug Use History: IV Drug Use - Past Family History Father Family Medical History: Cancer Additional Family Medical History / Comment(s): LUNG CA General Exam Limitations: no limitations General appearance: alert, in no apparent distress Head exam: Present: atraumatic, normocephalic, normal inspection Eye exam: Present: normal appearance, PERRL, EOMI. Absent: scleral icterus, conjunctival injection, periorbital swelling ENT exam: Present: normal exam, mucous membranes moist Neck exam: Present: normal inspection. Absent: tenderness, meningismus, lymphadenopathy Respiratory exam: Present: rales. Absent: normal lung sounds bilaterally, respiratory distress, wheezes, rhonchi, stridor Cardiovascular Exam: Present: regular rate, normal rhythm, normal heart sounds. Absent: systolic murmur, diastolic murmur, rubs, gallop, clicks GI/Abdominal exam: Present: soft, normal bowel sounds. Absent: distended, tenderness, guarding, rebound, rigid Extremities exam: Present: normal inspection, full ROM, normal capillary refill, pedal edema. Absent: tenderness, joint swelling, calf tenderness Back exam: Present: normal inspection Neurological exam: Present: alert, oriented X3, CN II-XII intact Psychiatric exam: Present: normal affect, normal mood Skin exam: Present: warm, dry, intact, normal color. Absent: rash Course Vital Signs 08/03/19 08/03/19 08/03/19 10:55 11:00 11:30 Temperature 84 F L Pulse Rate 83 88 82 Respiratory 18 Rate Blood Pressure 129/64 129/64 129/64 O2 Sat by Pulse 93 L 97 93 L Oximetry 08/03/19 08/03/19 08/03/19 12:00 12:30 13:00 Temperature Pulse Rate 83 78 Respiratory Rate Blood Pressure 129/64 129/64 129/64 O2 Sat by Pulse 98 97 Oximetry 08/03/19 08/03/19 08/03/19 13:30 13:46 14:15 Temperature Pulse Rate 86 Respiratory 18 Rate Blood Pressure 115/77 115/77 O2 Sat by Pulse 94 L 94 L Oximetry 08/03/19 08/03/19 08/03/19 14:22 15:30 16:12 Temperature 99.0 F 99.1 F Pulse Rate 82 84 87 Respiratory 20 22 Rate Blood Pressure 149/73 160/78 O2 Sat by Pulse 99 99 Oximetry Medical Decision Making - Medical Decision Making Upon arrival the patient is placed into room 15. He is hooked up to continuous pulse ox and cardiac monitoring. 12-lead EKG is performed on the patient which demonstrated a normal sinus rhythm. Laboratory says were conducted. The patient was sent for a chest x-ray. Upon review of the results it is noted that the patient's CO2 is 46. BNP is elevated at 336. Chest x-ray does demonstrate signs of chronic volume overload. Patient does have an elevated d-dimer at 0.95. I did perform a CT of the patient's thorax which reveals no PE. Pe ripheral IV had been established. The patient was given a DuoNeb breathing treatment, 1 g of magnesium and 125 mg of Solu-Medrol. Because the patient does grossly appear volume overloaded I did recommend admission to the hospital. The patient did agree to this. I did call discuss case with Dr. Bashir who did accept admission for the patient. He recommended pulmonology and cardiology to be on consult. I we'll trend the patient's troponins. His medications are ordered. I did order him a dose of IV Lasix. An Accu-Chek was performed and demonstrated a blood glucose of 67. Because of this I did provide the patient with an amp of D50. He was also given something to eat. We will continue to trend his glucose. The patient remained in stable condition and was transported to the floor - Lab Data Result diagrams: 08/04/19 06:57 08/07/19 06:27 Lab Results 08/03/19 08/03/19 08/03/19 Range/Units 12:40 12:40 12:40 WBC 5.8 (3.8-10.6) k/uL RBC 4.03 L (4.30-5.90) m/uL Hgb 11.1 L (13.0-17.5) gm/dL Hct 35.9 L (39.0-53.0) % MCV 89.1 (80.0-100.0) fL MCH 27.6 (25.0-35.0) pg MCHC 31.0 (31.0-37.0) g/dL RDW 16.1 H (11.5-15.5) % Plt Count 305 (150-450) k/uL Neutrophils % 71 % Lymphocytes % 16 % Monocytes % 5 % Eosinophils % 5 % Basophils % 1 % Neutrophils # 4.1 (1.3-7.7) k/uL Lymphocytes # 1.0 (1.0-4.8) k/uL Monocytes # 0.3 (0-1.0) k/uL Eosinophils # 0.3 (0-0.7) k/uL Basophils # 0.0 (0-0.2) k/uL Hypochromasia Marked Anisocytosis Slight PT 10.6 (9.0-12.0) sec INR 1.0 (<1.2) APTT 29.7 (22.0-30.0) sec D-Dimer 0.95 H (<0.60) mg/L FEU Sodium 140 (137-145) mmol/L Potassium 4.3 (3.5-5.1) mmol/L Chloride 91 L (98-107) mmol/L Carbon Dioxide 46 H* (22-30) mmol/L Anion Gap 3 mmol/L BUN 16 (9-20) mg/dL Creatinine 0.77 (0.66-1.25) mg/dL Est GFR (CKD-EPI)AfAm >90 (>60 ml/min/1.73 sqM) Est GFR (CKD-EPI)NonAf >90 (>60 ml/min/1.73 sqM) Glucose 92 (74-99) mg/dL POC Glucose (mg/dL) (75-99) mg/dL POC Glu Instructor Modeling ID Calcium 9.5 (8.4-10.2) mg/dL Total Bilirubin 0.5 (0.2-1.3) mg/dL AST 25 (17-59) U/L ALT 41 (21-72) U/L Alkaline Phosphatase 99 (38-126) U/L Troponin I (0.000-0.034) ng/mL NT-Pro-B Natriuret Pep pg/mL Total Protein 5.8 L (6.3-8.2) g/dL Albumin 3.2 L (3.5-5.0) g/dL Fluid Source Fluid Color Fluid Appearance Fluid RBC /uL Fluid Nucleated Cells /uL Fluid Polynuclear WBCs % Fluid Mononuclear WBCs % Fluid Eosinophils % Body Fluid Glucose Source Fluid Glucose mg/dL Body Fluid Protein Source Fluid Total Protein mg/dL Body Fluid LDH Source Fluid LDH U/L Virus Source Viral Test Virus Analysis Interp 08/03/19 08/03/19 08/03/19 Range/Units 12:40 12:40 14:43 WBC (3.8-10.6) k/uL RBC (4.30-5.90) m/uL Hgb (13.0-17.5) gm/dL Hct (39.0-53.0) % MCV (80.0-100.0) fL MCH (25.0-35.0) pg MCHC (31.0-37.0) g/dL RDW (11.5-15.5) % Plt Count (150-450) k/uL Neutrophils % % Lymphocytes % % Monocytes % % Eosinophils % % Basophils % % Neutrophils # (1.3-7.7) k/uL Lymphocytes # (1.0-4.8) k/uL Monocytes # (0-1.0) k/uL Eosinophils # (0-0.7) k/uL Basophils # (0-0.2) k/uL Hypochromasia Anisocytosis PT (9.0-12.0) sec INR (<1.2) APTT (22.0-30.0) sec D-Dimer (<0.60) mg/L FEU Sodium (137-145) mmol/L Potassium (3.5-5.1) mmol/L Chloride (98-107) mmol/L Carbon Dioxide (22-30) mmol/L Anion Gap mmol/L BUN (9-20) mg/dL Creatinine (0.66-1.25) mg/dL Est GFR (CKD-EPI)AfAm (>60 ml/min/1.73 sqM) Est GFR (CKD-EPI)NonAf (>60 ml/min/1.73 sqM) Glucose (74-99) mg/dL POC Glucose (mg/dL) 67 L (75-99) mg/dL POC Glu Instructor Modeling Leidy Manrique Calcium (8.4-10.2) mg/dL Total Bilirubin (0.2-1.3) mg/dL AST (17-59) U/L ALT (21-72) U/L Alkaline Phosphatase (38-126) U/L Troponin I <0.012 (0.000-0.034) ng/mL NT-Pro-B Natriuret Pep 336 pg/mL Total Protein (6.3-8.2) g/dL Albumin (3.5-5.0) g/dL Fluid Source Fluid Color Fluid Appearance Fluid RBC /uL Fluid Nucleated Cells /uL Fluid Polynuclear WBCs % Fluid Mononuclear WBCs % Fluid Eosinophils % Body Fluid Glucose Source Fluid Glucose mg/dL Body Fluid Protein Source Fluid Total Protein mg/dL Body Fluid LDH Source Fluid LDH U/L Virus Source Viral Test Virus Analysis Interp 08/03/19 08/03/19 08/03/19 Range/Units 15:27 15:45 17:03 WBC (3.8-10.6) k/uL RBC (4.30-5.90) m/uL Hgb (13.0-17.5) gm/dL Hct (39.0-53.0) % MCV (80.0-100.0) fL MCH (25.0-35.0) pg MCHC (31.0-37.0) g/dL RDW (11.5-15.5) % Plt Count (150-450) k/uL Neutrophils % % Lymphocytes % % Monocytes % % Eosinophils % % Basophils % % Neutrophils # (1.3-7.7) k/uL Lymphocytes # (1.0-4.8) k/uL Monocytes # (0-1.0) k/uL Eosinophils # (0-0.7) k/uL Basophils # (0-0.2) k/uL Hypochromasia Anisocytosis PT (9.0-12.0) sec INR (<1.2) APTT (22.0-30.0) sec D-Dimer (<0.60) mg/L FEU Sodium (137-145) mmol/L Potassium (3.5-5.1) mmol/L Chloride (98-107) mmol/L Carbon Dioxide (22-30) mmol/L Anion Gap mmol/L BUN (9-20) mg/dL Creatinine (0.66-1.25) mg/dL Est GFR (CKD-EPI)AfAm (>60 ml/min/1.73 sqM) Est GFR (CKD-EPI)NonAf (>60 ml/min/1.73 sqM) Glucose (74-99) mg/dL POC Glucose (mg/dL) 61 L 84 125 H (75-99) mg/dL POC Glu Instructor Modeling ID Simasko, Delfina Calcium (8.4-10.2) mg/dL Total Bilirubin (0.2-1.3) mg/dL AST (17-59) U/L ALT (21-72) U/L Alkaline Phosphatase (38-126) U/L Troponin I (0.000-0.034) ng/mL NT-Pro-B Natriuret Pep pg/mL Total Protein (6.3-8.2) g/dL Albumin (3.5-5.0) g/dL Fluid Source Fluid Color Fluid Appearance Fluid RBC /uL Fluid Nucleated Cells /uL Fluid Polynuclear WBCs % Fluid Mononuclear WBCs % Fluid Eosinophils % Body Fluid Glucose Source Fluid Glucose mg/dL Body Fluid Protein Source Fluid Total Protein mg/dL Body Fluid LDH Source Fluid LDH U/L Virus Source Viral Test Virus Analysis Interp 08/03/19 08/03/19 08/04/19 Range/Units 18:57 22:13 00:55 WBC (3.8-10.6) k/uL RBC (4.30-5.90) m/uL Hgb (13.0-17.5) gm/dL Hct (39.0-53.0) % MCV (80.0-100.0) fL MCH (25.0-35.0) pg MCHC (31.0-37.0) g/dL RDW (11.5-15.5) % Plt Count (150-450) k/uL Neutrophils % % Lymphocytes % % Monocytes % % Eosinophils % % Basophils % % Neutrophils # (1.3-7.7) k/uL Lymphocytes # (1.0-4.8) k/uL Monocytes # (0-1.0) k/uL Eosinophils # (0-0.7) k/uL Basophils # (0-0.2) k/uL Hypochromasia Anisocytosis PT (9.0-12.0) sec INR (<1.2) APTT (22.0-30.0) sec D-Dimer (<0.60) mg/L FEU Sodium (137-145) mmol/L Potassium (3.5-5.1) mmol/L Chloride (98-107) mmol/L Carbon Dioxide (22-30) mmol/L Anion Gap mmol/L BUN (9-20) mg/dL Creatinine (0.66-1.25) mg/dL Est GFR (CKD-EPI)AfAm (>60 ml/min/1.73 sqM) Est GFR (CKD-EPI)NonAf (>60 ml/min/1.73 sqM) Glucose (74-99) mg/dL POC Glucose (mg/dL) 200 H (75-99) mg/dL POC Glu Instructor Modeling ID Ciera Acharya Calcium (8.4-10.2) mg/dL Total Bilirubin (0.2-1.3) mg/dL AST (17-59) U/L ALT (21-72) U/L Alkaline Phosphatase (38-126) U/L Troponin I <0.012 <0.012 (0.000-0.034) ng/mL NT-Pro-B Natriuret Pep pg/mL Total Protein (6.3-8.2) g/dL Albumin (3.5-5.0) g/dL Fluid Source Fluid Color Fluid Appearance Fluid RBC /uL Fluid Nucleated Cells /uL Fluid Polynuclear WBCs % Fluid Mononuclear WBCs % Fluid Eosinophils % Body Fluid Glucose Source Fluid Glucose mg/dL Body Fluid Protein Source Fluid Total Protein mg/dL Body Fluid LDH Source Fluid LDH U/L Virus Source Viral Test Virus Analysis Interp 08/04/19 08/04/19 08/04/19 Range/Units 06:57 06:57 07:02 WBC 6.1 (3.8-10.6) k/uL RBC 4.12 L (4.30-5.90) m/uL Hgb 11.3 L (13.0-17.5) gm/dL Hct 35.2 L (39.0-53.0) % MCV 85.5 (80.0-100.0) fL MCH 27.4 (25.0-35.0) pg MCHC 32.1 (31.0-37.0) g/dL RDW 16.0 H (11.5-15.5) % Plt Count 291 (150-450) k/uL Neutrophils % 89 % Lymphocytes % 7 % Monocytes % 3 % Eosinophils % 0 % Basophils % 0 % Neutrophils # 5.4 (1.3-7.7) k/uL Lymphocytes # 0.4 L (1.0-4.8) k/uL Monocytes # 0.2 (0-1.0) k/uL Eosinophils # 0.0 (0-0.7) k/uL Basophils # 0.0 (0-0.2) k/uL Hypochromasia Slight Anisocytosis Slight PT (9.0-12.0) sec INR (<1.2) APTT (22.0-30.0) sec D-Dimer (<0.60) mg/L FEU Sodium 138 (137-145) mmol/L Potassium 3.9 (3.5-5.1) mmol/L Chloride 89 L (98-107) mmol/L Carbon Dioxide 43 H* (22-30) mmol/L Anion Gap 6 mmol/L BUN 20 (9-20) mg/dL Creatinine 0.69 (0.66-1.25) mg/dL Est GFR (CKD-EPI)AfAm >90 (>60 ml/min/1.73 sqM) Est GFR (CKD-EPI)NonAf >90 (>60 ml/min/1.73 sqM) Glucose 166 H (74-99) mg/dL POC Glucose (mg/dL) 166 H (75-99) mg/dL POC Glu Instructor Modeling ID Daggs, Lindsey Calcium 9.9 (8.4-10.2) mg/dL Total Bilirubin (0.2-1.3) mg/dL AST (17-59) U/L ALT (21-72) U/L Alkaline Phosphatase (38-126) U/L Troponin I (0.000-0.034) ng/mL NT-Pro-B Natriuret Pep pg/mL Total Protein (6.3-8.2) g/dL Albumin (3.5-5.0) g/dL Fluid Source Fluid Color Fluid Appearance Fluid RBC /uL Fluid Nucleated Cells /uL Fluid Polynuclear WBCs % Fluid Mononuclear WBCs % Fluid Eosinophils % Body Fluid Glucose Source Fluid Glucose mg/dL Body Fluid Protein Source Fluid Total Protein mg/dL Body Fluid LDH Source Fluid LDH U/L Virus Source Viral Test Virus Analysis Interp 08/04/19 08/04/19 08/04/19 Range/Units 11:29 13:38 15:50 WBC (3.8-10.6) k/uL RBC (4.30-5.90) m/uL Hgb (13.0-17.5) gm/dL Hct (39.0-53.0) % MCV (80.0-100.0) fL MCH (25.0-35.0) pg MCHC (31.0-37.0) g/dL RDW (11.5-15.5) % Plt Count (150-450) k/uL Neutrophils % % Lymphocytes % % Monocytes % % Eosinophils % % Basophils % % Neutrophils # (1.3-7.7) k/uL Lymphocytes # (1.0-4.8) k/uL Monocytes # (0-1.0) k/uL Eosinophils # (0-0.7) k/uL Basophils # (0-0.2) k/uL Hypochromasia Anisocytosis PT (9.0-12.0) sec INR (<1.2) APTT (22.0-30.0) sec D-Dimer (<0.60) mg/L FEU Sodium (137-145) mmol/L Potassium (3.5-5.1) mmol/L Chloride (98-107) mmol/L Carbon Dioxide (22-30) mmol/L Anion Gap mmol/L BUN (9-20) mg/dL Creatinine (0.66-1.25) mg/dL Est GFR (CKD-EPI)AfAm (>60 ml/min/1.73 sqM) Est GFR (CKD-EPI)NonAf (>60 ml/min/1.73 sqM) Glucose (74-99) mg/dL POC Glucose (mg/dL) 124 H 170 H (75-99) mg/dL POC Glu Instructor Modeling Lindsey Kramer Kalib Calcium (8.4-10.2) mg/dL Total Bilirubin (0.2-1.3) mg/dL AST (17-59) U/L ALT (21-72) U/L Alkaline Phosphatase (38-126) U/L Troponin I (0.000-0.034) ng/mL NT-Pro-B Natriuret Pep pg/mL Total Protein (6.3-8.2) g/dL Albumin (3.5-5.0) g/dL Fluid Source Pleural Fluid Color [place]by Fluid Appearance [place] RBC 17879 /uL Fluid Nucleated Cells 1111 /uL Fluid Polynuclear WBCs 4 % Fluid Mononuclear WBCs 95 % Fluid Eosinophils 1 % Body Fluid Glucose Source Fluid Glucose mg/dL Body Fluid Protein Source Fluid Total Protein mg/dL Body Fluid LDH Source Fluid LDH U/L Virus Source Viral Test Virus Analysis Interp 08/04/19 08/04/19 08/04/19 Range/Units 15:50 15:50 16:46 WBC (3.8-10.6) k/uL RBC (4.30-5.90) m/uL Hgb (13.0-17.5) gm/dL Hct (39.0-53.0) % MCV (80.0-100.0) fL MCH (25.0-35.0) pg MCHC (31.0-37.0) g/dL RDW (11.5-15.5) % Plt Count (150-450) k/uL Neutrophils % % Lymphocytes % % Monocytes % % Eosinophils % % Basophils % % Neutrophils # (1.3-7.7) k/uL Lymphocytes # (1.0-4.8) k/uL Monocytes # (0-1.0) k/uL Eosinophils # (0-0.7) k/uL Basophils # (0-0.2) k/uL Hypochromasia Anisocytosis PT (9.0-12.0) sec INR (<1.2) APTT (22.0-30.0) sec D-Dimer (<0.60) mg/L FEU Sodium (137-145) mmol/L Potassium (3.5-5.1) mmol/L Chloride (98-107) mmol/L Carbon Dioxide (22-30) mmol/L Anion Gap mmol/L BUN (9-20) mg/dL Creatinine (0.66-1.25) mg/dL Est GFR (CKD-EPI)AfAm (>60 ml/min/1.73 sqM) Est GFR (CKD-EPI)NonAf (>60 ml/min/1.73 sqM) Glucose (74-99) mg/dL POC Glucose (mg/dL) 128 H (75-99) mg/dL POC Glu Instructor Modeling ID Dana, Kalib Calcium (8.4-10.2) mg/dL Total Bilirubin (0.2-1.3) mg/dL AST (17-59) U/L ALT (21-72) U/L Alkaline Phosphatase (38-126) U/L Troponin I (0.000-0.034) ng/mL NT-Pro-B Natriuret Pep pg/mL Total Protein (6.3-8.2) g/dL Albumin (3.5-5.0) g/dL Fluid Source Fluid Color Fluid Appearance Fluid RBC /uL Fluid Nucleated Cells /uL Fluid Polynuclear WBCs % Fluid Mononuclear WBCs % Fluid Eosinophils % Body Fluid Glucose Source Pleural Fluid Fluid Glucose 137 mg/dL Body Fluid Protein Source Pleural Fluid Fluid Total Protein 2715.0 mg/dL Body Fluid LDH Source Pleural Fluid Fluid LDH 164 U/L Virus Source See Below Viral Test See Below Virus Analysis Interp See Below 08/04/19 08/04/19 08/05/19 Range/Units 20:55 23:06 05:10 WBC (3.8-10.6) k/uL RBC (4.30-5.90) m/uL Hgb (13.0-17.5) gm/dL Hct (39.0-53.0) % MCV (80.0-100.0) fL MCH (25.0-35.0) pg MCHC (31.0-37.0) g/dL RDW (11.5-15.5) % Plt Count (150-450) k/uL Neutrophils % % Lymphocytes % % Monocytes % % Eosinophils % % Basophils % % Neutrophils # (1.3-7.7) k/uL Lymphocytes # (1.0-4.8) k/uL Monocytes # (0-1.0) k/uL Eosinophils # (0-0.7) k/uL Basophils # (0-0.2) k/uL Hypochromasia Anisocytosis PT (9.0-12.0) sec INR (<1.2) APTT (22.0-30.0) sec D-Dimer (<0.60) mg/L FEU Sodium (137-145) mmol/L Potassium (3.5-5.1) mmol/L Chloride (98-107) mmol/L Carbon Dioxide (22-30) mmol/L Anion Gap mmol/L BUN (9-20) mg/dL Creatinine (0.66-1.25) mg/dL Est GFR (CKD-EPI)AfAm (>60 ml/min/1.73 sqM) Est GFR (CKD-EPI)NonAf (>60 ml/min/1.73 sqM) Glucose (74-99) mg/dL POC Glucose (mg/dL) 135 H 136 H 100 H (75-99) mg/dL POC Glu Instructor Modeling Semaj Sanchez, Semaj Kearns Calcium (8.4-10.2) mg/dL Total Bilirubin (0.2-1.3) mg/dL AST (17-59) U/L ALT (21-72) U/L Alkaline Phosphatase (38-126) U/L Troponin I (0.000-0.034) ng/mL NT-Pro-B Natriuret Pep pg/mL Total Protein (6.3-8.2) g/dL Albumin (3.5-5.0) g/dL Fluid Source Fluid Color Fluid Appearance Fluid RBC /uL Fluid Nucleated Cells /uL Fluid Polynuclear WBCs % Fluid Mononuclear WBCs % Fluid Eosinophils % Body Fluid Glucose Source Fluid Glucose mg/dL Body Fluid Protein Source Fluid Total Protein mg/dL Body Fluid LDH Source Fluid LDH U/L Virus Source Viral Test Virus Analysis Interp 08/05/19 08/05/19 08/05/19 Range/Units 06:55 07:12 11:12 WBC (3.8-10.6) k/uL RBC (4.30-5.90) m/uL Hgb (13.0-17.5) gm/dL Hct (39.0-53.0) % MCV (80.0-100.0) fL MCH (25.0-35.0) pg MCHC (31.0-37.0) g/dL RDW (11.5-15.5) % Plt Count (150-450) k/uL Neutrophils % % Lymphocytes % % Monocytes % % Eosinophils % % Basophils % % Neutrophils # (1.3-7.7) k/uL Lymphocytes # (1.0-4.8) k/uL Monocytes # (0-1.0) k/uL Eosinophils # (0-0.7) k/uL Basophils # (0-0.2) k/uL Hypochromasia Anisocytosis PT (9.0-12.0) sec INR (<1.2) APTT (22.0-30.0) sec D-Dimer (<0.60) mg/L FEU Sodium (137-145) mmol/L Potassium (3.5-5.1) mmol/L Chloride (98-107) mmol/L Carbon Dioxide (22-30) mmol/L Anion Gap mmol/L BUN (9-20) mg/dL Creatinine (0.66-1.25) mg/dL Est GFR (CKD-EPI)AfAm (>60 ml/min/1.73 sqM) Est GFR (CKD-EPI)NonAf (>60 ml/min/1.73 sqM) Glucose (74-99) mg/dL POC Glucose (mg/dL) 107 H 78 (75-99) mg/dL POC Glu Instructor Modeling ID Closs, Carlie Closs, Carlie Calcium (8.4-10.2) mg/dL Total Bilirubin (0.2-1.3) mg/dL AST (17-59) U/L ALT (21-72) U/L Alkaline Phosphatase (38-126) U/L Troponin I (0.000-0.034) ng/mL NT-Pro-B Natriuret Pep 263 pg/mL Total Protein (6.3-8.2) g/dL Albumin (3.5-5.0) g/dL Fluid Source Fluid Color Fluid Appearance Fluid RBC /uL Fluid Nucleated Cells /uL Fluid Polynuclear WBCs % Fluid Mononuclear WBCs % Fluid Eosinophils % Body Fluid Glucose Source Fluid Glucose mg/dL Body Fluid Protein Source Fluid Total Protein mg/dL Body Fluid LDH Source Fluid LDH U/L Virus Source Viral Test Virus Analysis Interp 08/05/19 Range/Units 13:59 WBC (3.8-10.6) k/uL RBC (4.30-5.90) m/uL Hgb (13.0-17.5) gm/dL Hct (39.0-53.0) % MCV (80.0-100.0) fL MCH (25.0-35.0) pg MCHC (31.0-37.0) g/dL RDW (11.5-15.5) % Plt Count (150-450) k/uL Neutrophils % % Lymphocytes % % Monocytes % % Eosinophils % % Basophils % % Neutrophils # (1.3-7.7) k/uL Lymphocytes # (1.0-4.8) k/uL Monocytes # (0-1.0) k/uL Eosinophils # (0-0.7) k/uL Basophils # (0-0.2) k/uL Hypochromasia Anisocytosis PT (9.0-12.0) sec INR (<1.2) APTT (22.0-30.0) sec D-Dimer (<0.60) mg/L FEU Sodium (137-145) mmol/L Potassium (3.5-5.1) mmol/L Chloride (98-107) mmol/L Carbon Dioxide (22-30) mmol/L Anion Gap mmol/L BUN (9-20) mg/dL Creatinine (0.66-1.25) mg/dL Est GFR (CKD-EPI)AfAm (>60 ml/min/1.73 sqM) Est GFR (CKD-EPI)NonAf (>60 ml/min/1.73 sqM) Glucose (74-99) mg/dL POC Glucose (mg/dL) 98 (75-99) mg/dL POC Glu Instructor Modeling ID Carlie Guillory Calcium (8.4-10.2) mg/dL Total Bilirubin (0.2-1.3) mg/dL AST (17-59) U/L ALT (21-72) U/L Alkaline Phosphatase (38-126) U/L Troponin I (0.000-0.034) ng/mL NT-Pro-B Natriuret Pep pg/mL Total Protein (6.3-8.2) g/dL Albumin (3.5-5.0) g/dL Fluid Source Fluid Color Fluid Appearance Fluid RBC /uL Fluid Nucleated Cells /uL Fluid Polynuclear WBCs % Fluid Mononuclear WBCs % Fluid Eosinophils % Body Fluid Glucose Source Fluid Glucose mg/dL Body Fluid Protein Source Fluid Total Protein mg/dL Body Fluid LDH Source Fluid LDH U/L Virus Source Viral Test Virus Analysis Interp - EKG Data EKG Comments: EKG demonstrates a sinus rhythm with a ventricular rate of 81. MN interval 148. QRS 108. QTC of 418. There is significant baseline artifact. No acute ST segment elevations. Disposition Clinical Impression: Acute exacerbation of chronic obstructive airways disease, Congestive heart failure, Fluid overload Disposition: ADMITTED IP TO THIS HOSP Condition: Stable Is patient prescribed a controlled substance at d/c from ED?: No Decision to Admit Reason: Admit from EC Decision Date: 08/03/19 Decision Time: 14:43
--- NOTE | 2019-08-03 13:09 | XR ---
EXAMINATION TYPE: XR chest 2V DATE OF EXAM: 08/03/2019 COMPARISON: July 28, 2019 HISTORY: Shortness of breath TECHNIQUE: Frontal and lateral views of the chest are obtained. FINDINGS: Scattered senescent parenchymal changes noted. Hyperinflation compatible with COPD. Right-sided pleural effusion appears unchanged with regards to size. Hazy opacity overlying the right lung may reflect layering effusion and/or pleural thickening. The left lung remains clear. Heart size is stable. Mediastinal structures are stable and grossly unremarkable. No evidence for hilar prominence. Degenerative changes dorsal spine. IMPRESSION: 1. Stable chest.
[2019-08-03 13:14] LABS: Anisocytosis Slight; Basophils % (A) 1 %; Eosinophils # (A) 0.3 k/uL (0-0.7); Eosinophils % (A) 5 %; HCT 35.9 % (39.0-53.0); HGB 11.1 gm/dL (13.0-17.5); Hypochromasia Marked; Lymphocytes % (A) 16 %; MCH 27.6 pg (25.0-35.0); MCV 89.1 fL (80.0-100.0); Mean Platelet Volume 7.1; Monocytes # (A) 0.3 k/uL (0-1.0); Monocytes % (A) 5 %; Neutrophils # (A) 4.1 k/uL (1.3-7.7); Neutrophils % (A) 71 %; Platelet Count 305 k/uL (150-450); RBC 4.03 m/uL (4.30-5.90); RDW 16.1 % (11.5-15.5); WBC 5.8 k/uL (3.8-10.6)
[2019-08-03 13:21] LABS: ALT 41 U/L (21-72); AST 25 U/L (17-59); African American GFR (CKD) >90 (>60 ml/min/1.73 sqM); Albumin 3.2 g/dL (3.5-5.0); Alkaline Phosphatase 99 U/L (38-126); Blood Urea Nitrogen 16 mg/dL (9-20); Calcium 9.5 mg/dL (8.4-10.2); Chloride 91 mmol/L (98-107); Glucose 92 mg/dL (74-99); Potassium 4.3 mmol/L (3.5-5.1); Sodium 140 mmol/L (137-145); Total Bilirubin 0.5 mg/dL (0.2-1.3); Total Protein 5.8 g/dL (6.3-8.2)
[2019-08-03 13:22] LABS: Partial Thromboplastin Time 29.7 sec (22.0-30.0); Prothrombin Time 10.6 sec (9.0-12.0)
[2019-08-03 13:27] LABS: Anion Gap 3 mmol/L
[2019-08-03 13:30] LABS: Carbon Dioxide 46 mmol/L (22-30)
[2019-08-03 13:37] LABS: D-Dimer 0.95 mg/L FEU (<0.60)
[2019-08-03] MEDS ORDERED: IPRATROPIUM-ALBUTEROL 3 ML NEB INHALATION STA (13:50)
[2019-08-03] MEDS ORDERED: methylPREDNISolone SOD SUCCI 125 MG/2 ML VIAL IV STA (14:41)
[2019-08-03 14:45] LABS: Glucose,Whole Blood 67 mg/dL (75-99)
[2019-08-03] MEDS ORDERED: DEXTROSE 50% SYRINGE 50 ML IVP STA (14:48)
[2019-08-03] MEDS ORDERED: NALOXONE 0.4 MG/ML 1 ML VIAL IV PRN (14:49)
[2019-08-03] MEDS ORDERED: FUROSEMIDE 10 MG/ML 10 ML VIAL IV STA (14:53)
[2019-08-03 15:28] LABS: Glucose,Whole Blood 61 mg/dL (75-99)
--- NOTE | 2019-08-03 15:30 | CT ---
EXAMINATION TYPE: CT chest angio for PE DATE OF EXAM: 08/03/2019 COMPARISON: 06/12/2018 HISTORY: Chest pain and shortness of breath CT DLP: 972.5 mGycm CONTRAST: CT chest with contrast and 3D reconstruction with MIP imaging is performed with IV Contrast, patient injected with 100 mL of Isovue 370. Contrast-enhanced CT of the chest was performed through the course of the pulmonary arteries with julio cesar g and mediastinal window settings submitted. 3D reconstruction with MIP imaging was also performed. PULMONARY ARTERIES: The pulmonary arteries and their major tributaries are patent. I do not see noni dence for sizable filling defect to suggest pulmonary embolic process. LUNGS: Bilateral pleural effusions right much greater than left. Right-sided volume loss. Right hilar mass is difficult to exclude. MEDIASTINUM: Thoracic aorta is of normal caliber,however, evaluation is limited given timing of the contrast bolus. If there is concern for thoracic aortic pathology consider LUIZA. Correlate clinicall y . The heart is not enlarged. No evidence for mediastinal mass. No mediastinal lymph nodes greater than 1cm. HILAR STRUCTURES: No hilar lymph nodes greater than 1 cm. UPPER ABDOMEN: No significant abnormality is seen. IMPRESSION: 1. No evidence for Pulmonary embolism at this time. 2.Bilateral pleural effusions right much greater than left. Right-sided volume loss. Right hilar mass is difficult to exclude.
[2019-08-03 15:46] LABS: Glucose,Whole Blood 84 mg/dL (75-99)
[2019-08-03] MEDS: IPRATROPIUM-ALBUTEROL 3 ML NEB INHALATION SCH ×3 (16:36→19:54)
[2019-08-03] MEDS ORDERED: IPRATROPIUM-ALBUTEROL 3 ML NEB INHALATION SCH (17:00)
[2019-08-03 17:06] LABS: Glucose,Whole Blood 125 mg/dL (75-99)
[2019-08-03] MEDS: ASPIRIN 81 MG PO SCH (17:19)
[2019-08-03] MEDS: DULoxetine HCL 20 MG CAPSULE.DR PO SCH (17:19)
[2019-08-03] MEDS: GABAPENTIN 300 MG CAP PO SCH (17:19)
[2019-08-03] MEDS: DILTIAZEM ORAL 30 MG TAB PO SCH (17:19)
[2019-08-03] MEDS: RIVAROXABAN 20 MG TAB PO SCH (17:20)
[2019-08-03] MEDS: ATORVASTATIN 10 MG TAB PO SCH ×2 (21:07→21:08)
[2019-08-03] MEDS: OLANZapine 10 MG TAB PO SCH (21:08)
[2019-08-03] MEDS: HYDROCORTISONE 10 MG TAB PO SCH (21:08)
[2019-08-03] MEDS: busPIRone HCl 5 MG TAB PO SCH (21:08)
[2019-08-03 22:15] LABS: Glucose,Whole Blood 200 mg/dL (75-99)
[2019-08-04] MEDS: DILTIAZEM ORAL 30 MG TAB PO SCH ×5 (00:38→23:08)
[2019-08-04 07:04] LABS: Glucose,Whole Blood 166 mg/dL (75-99)
[2019-08-04 07:38] LABS: African American GFR (CKD) >90 (>60 ml/min/1.73 sqM); Blood Urea Nitrogen 20 mg/dL (9-20); Calcium 9.9 mg/dL (8.4-10.2); Chloride 89 mmol/L (98-107); Glucose 166 mg/dL (74-99); Potassium 3.9 mmol/L (3.5-5.1); Sodium 138 mmol/L (137-145)
[2019-08-04 07:45] LABS: Anion Gap 6 mmol/L
[2019-08-04 07:50] LABS: Carbon Dioxide 43 mmol/L (22-30)
[2019-08-04] MEDS ORDERED: NON-FORMULARY DRUG (Tiotropium 18 Mcg/Puff 1 PUFF) INHALATION SCH (08:00)
[2019-08-04] MEDS: GABAPENTIN 300 MG CAP PO SCH (08:17)
[2019-08-04] MEDS: HYDROcodone/APAP 5-325MG 1 EACH TAB PO PRN ×2 (08:18→17:52)
[2019-08-04] MEDS: busPIRone HCl 5 MG TAB PO SCH ×2 (08:18→20:59)
[2019-08-04] MEDS: ASPIRIN 81 MG PO SCH (08:18)
[2019-08-04] MEDS: RIVAROXABAN 20 MG TAB PO SCH (08:20)
[2019-08-04] MEDS: HYDROCORTISONE 10 MG TAB PO SCH ×2 (08:20→21:00)
[2019-08-04] MEDS: IPRATROPIUM-ALBUTEROL 3 ML NEB INHALATION SCH ×4 (08:39→20:27)
[2019-08-04] MEDS ORDERED: LIDOCAINE 5% PATCH TOPICAL SCH (09:00)
[2019-08-04 09:37] LABS: Anisocytosis Slight; Basophils % (A) 0 %; Eosinophils % (A) 0 %; HCT 35.2 % (39.0-53.0); HGB 11.3 gm/dL (13.0-17.5); Hypochromasia Slight; Lymphocytes # (A) 0.4 k/uL (1.0-4.8); Lymphocytes % (A) 7 %; MCH 27.4 pg (25.0-35.0); MCHC 32.1 g/dL (31.0-37.0); MCV 85.5 fL (80.0-100.0); Mean Platelet Volume 6.9; Monocytes # (A) 0.2 k/uL (0-1.0); Monocytes % (A) 3 %; Neutrophils # (A) 5.4 k/uL (1.3-7.7); Neutrophils % (A) 89 %; Platelet Count 291 k/uL (150-450); RBC 4.12 m/uL (4.30-5.90); WBC 6.1 k/uL (3.8-10.6)
[2019-08-04] MEDS ORDERED: POLYETHYLENE GLYCOL 3350 17 GM POWD.PACK PO PRN (10:36)
[2019-08-04 11:30] LABS: Glucose,Whole Blood 124 mg/dL (75-99)
--- NOTE | 2019-08-04 12:33 | ECHOF ---
Referral Reason:cp, sob MEASUREMENTS -------- HEIGHT: 195.6 cm WEIGHT: 199.6 kg BP: 136/72 RVIDd: 4.3 cm (< 3.3) IVSd: 1.9 cm (0.6 - 1.1) LVIDd: 4.8 cm (3.9 - 5.3) LVPWd: 1.9 cm (0.6 - 1.1) IVSs: 2.0 cm LVIDs: 3.8 cm LVPWs: 2.3 cm LA Diam: 4.4 cm (2.7 - 3.8) LAESV Index (A-L): 31.62 ml/m Ao Diam: 4.9 cm (2.0 - 3.7) AV Cusp: 2.9 cm (1.5 - 2.6) MV EXCURSION: 28.438 mm (> 18.000) MV EF SLOPE: 55 mm/s (70 - 150) EPSS: 0.9 cm MV E Angel: 0.65 m/s MV DecT: 177 ms MV A Angel: 0.83 m/s MV E/A Ratio: 0.78 AR PHT: 1005 ms RAP: 5.00 mmHg RVSP: 40.15 mmHg FINDINGS -------- Sinus rhythm. This was a technically adequate study. The left ventricular size is normal. There is severe concentric left ventricular hypertrophy. Ove rall left ventricular systolic function is normal with, an EF between 60 - 65 %. The right ventricle is severely enlarged. LA is midly dilated 29-33ml/m2. The right atrium is normal in size. Aneurysmal Interatrial septum. There is mild aortic valve sclerosis. There is [id number] aortic regurgitation. Mild mitral annular calcification present. Moderate tricuspid regurgitation present. There is mild pulmonary hypertension. The right ventric ular systolic pressure, as measured by Doppler, is 40.15mmHg. The pulmonic valve was not well visualized. 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 Normal inferior vena cava with normal inspiratory collapse consistent with estimated right atrial pre ssure of 5 mmHg. The inferior vena cava is mildly dilated. There is no pericardial effusion. CONCLUSIONS -------- 1. Sinus rhythm. 2. This was a technically adequate study. 3. The left ventricular size is normal. 4. There is severe concentric left ventricular hypertrophy. 5. Overall left ventricular systolic function is normal with, an EF between 60 - 65 %. 6. The right ventricle is severely enlarged. 7. LA is midly dilated 29-33ml/m2. 8. The right atrium is normal in size. 9. Aneurysmal Interatrial septum. 10. There is mild aortic valve sclerosis. 11. There is [id number] aortic regurgitation. 12. Mild mitral annular calcification present. 13. Moderate tricuspid regurgitation present. 14. There is mild pulmonary hypertension. 15. The right ventricular systolic pressure, as measured by Doppler, is 40.15mmHg. 16. The pulmonic valve was not well visualized. 17. 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 18. Normal inferior vena cava with normal inspiratory collapse consistent with estimated right atrial pressure of 5 mmHg. 19. The inferior vena cava is mildly dilated. 20. There is no pericardial effusion. FEATHER WASHER: Catrina Escalante RDCS
--- NOTE | 2019-08-04 13:15 | P.CRDCN ---
History of Present Illness History of present illness: This is a pleasant 58-year-old male past medical history significant for paroxysmal atrial fibrillation on long-term anticoagulation, diabetes mellitus, CVA, dyslipidemia, gastroesophageal reflux disease, COPD and former nicotine dependence. He denies prior history of coronary artery disease. 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 He was diagnosed with atrial fibrillation a couple of months ago while admitted to the [facility] [place] in [place] for C. diff. We have been asked to see him in consultation secondary to shortness of breath. He presented to the hospital last evening and states he has noticed increased lower extremity edema, 10 pound weight gain and increased shortness of breath over the previous few days. He also describes having a cough bringing up thick sputum. Associated with his cough and deep breathing he feels a discomfort around chest like a vice squeezing. He states he had significant chills for the previous 24 hours however no documented fevers. He denies any exertional chest discomfort, dizziness, palpitations, nausea, vomi ting or diaphoresis. EKG reveals sinus mechanism, incomplete right bundle branch block with a heart rate of 81. No acute ST changes noted however significant amount of artifact. Chest x-ray is negative for an acute cardiopulmonary process. CT is negative for pulmonary embolism, bilateral pleural effusions right greater than left. Right-sided volume loss noted. Laboratory data reviewed, WBC 6.1, hemoglobin 11.3, platelets 291, sodium 138, potassium 3.9, CO2 43 down from 46 on admission, creatinine 0.69, cardiac enzymes negative 3, proBNP 336. Current cardiac medications include aspirin 81 mg daily, atorvastatin 10 mg daily, diltiazem 30 mg 4 times a day, Lasix 40 mg at bedtime, Xarelto 20 mg daily. At the time of my exam: CONSTITUTIONAL: Denies fever. Denies chills. EYES: Denies blurred vision. Denies vision changes. Denies eye pain. EARS, NOSE, MOUTH & THROAT: Denies headache. Denies sore throat. Denies ear pain. CARDIOVASCULAR: Denies chest pain. Complains of shortness of breath. Denies orthopnea. Denies PND. Denies palpitations. RESPIRATORY: Denies cough. GASTROINTESTINAL: Denies abdominal pain. Denies diarrhea. Denies constipation. Denies nausea. Denies vomiting. MUSCULOSKELETAL: Denies myalgias. INTEGUMENTARY: Denies pruitis. Denies rash. NEUROLOGIC: Denies numbness. Denies tingling. Denies weakness. PSYCHIATRIC: Denies anxiety. Denies depression. ENDOCRINE: Denies fatigue. Denies weight change. Denies polydipsia. Denies polyurina. GENITOURINARY: Denies burning, hematuria or urgency with micturation. HEMATOLOGIC: Denies history of anemia. Denies bleeding. Blood pressure 136/72 heart rate 75 afebrile maintaining oxygen saturation on nasal cannula GENERAL: This is a 58-year-old male in no apparent distress at the time of my examination. Morbidly obese. HEENT: Head is atraumatic, normocephalic. Pupils are equal, round. Sclerae anicteric. Conjunctivae are clear. Mucous membranes of the mouth are moist. Neck is supple. There is no jugular venous distention. No carotid bruit is heard. LUNGS: Clear to auscultation no wheezes, rales or rhonchi. No chest wall tenderness is noted on palpation or with deep breathing. HEART: Regular rate and rhythm without murmurs, rubs or gallops. S1 and S2 heard. ABDOMEN: Soft, nontender. Bowel sounds are heard. No organomegaly noted. EXTREMITIES: Bilateral lower extremity circumferential nonpitting edema. No calf tenderness noted. VASCULAR: Radial and dorsalis pedis pulses palpated, no evidence of clubbing. NEUROLOGIC: Patient is awake, alert and oriented x3. ASSESSMENT Chest pain, atypical. Pleuritic. An acute coronary event is ruled out. Shortness of breath. Clinically the patient is euvolemic with no evidence of congestive cardiac failure. CO2 retention History of COPD Paroxysmal atrial fibrillation on long-term anticoagulation. Currently maintaining sinus mechanism Dyslipidemia History of CVA Morbid obesity, BMI 52 PLAN Clinically the patient is euvolemic with no evidence of congestive cardiac failure. ProBNP is normal. Obtain 2-D echocardiogram and Doppler study to assess cardiac structure and function. Resume lasix 40 mg PO daily. Ongoing medical management. Thank you kindly for this consultation. Nurse Practitioner note has been reviewed, I agree with a documented findings and plan of care. Patient was seen and examined. Past Medical History Past Medical History: Asthma, Cancer, COPD, CVA/TIA, Diabetes Mellitus, Deep Vein Thrombosis (DVT), GERD/Reflux, GI Bleed, Hyperlipidemia, Osteoarthritis (OA), Pneumonia, Pulmonary Embolus (PE), Renal Disease, Sleep Apnea/CPAP/BIPAP Additional Past Medical History / Comment(s): HYPOGLYCEMIA. NO C-PAP. DDD, SCOLIOSIS OF SPINE, SLEEPS IN RECLINER. HAVING . HX OF SKIN CANCER , Hiatal Hernia. Irregular HR in the past. DVT IN LEG, WENT TO LUNG - AFTER HIP SURG. BLOOD IN STOOL,RENAL DISEASE-STAGE 3," RETAINS FLUIDS " History of Any Multi-Drug Resistant Organisms: MRSA Date of last positivie culture/infection: AUG 2014 MDRO Source:: NASAL Past Surgical History: Appendectomy, Bariatric Surgery, Heart Catheterization, Hernia Repair, Joint Replacement, Orthopedic Surgery Additional Past Surgical History / Comment(s): RT ELBOW SURG X2, TOTAL RT HIP,ARTHROSCOPIC LT KNEE X2, RT ANKLE RECONSTRUCTIVE SURG, JANUARY 2014 GASTRIC SLEEVE, COLONOSCOPY'S. Basal Cell CA Face, Back. LT ING HERNIA Past Anesthesia/Blood Transfusion Reactions: Previous Problems w/ Anesthesia Additional Past Anesthesia/Blood Transfusion Reaction / Comment(s): STATES HE WAS TOLD HE WAS A DIFFICULT INTUBATION WITH GASTRIC SLEEVE SURGERY, Past Psychological History: Anxiety, Depression, Panic Disorder, Schizoaffective Disorder Smoking Status: Former smoker Past Alcohol Use History: None Reported Past Drug Use History: IV Drug Use - Past Family History Father Family Medical History: Cancer Additional Family Medical History / Comment(s): LUNG CA Medications and Allergies Home Medications Medication Instructions Recorded Confirmed Type OLANZapine [ZyPREXA] 20 mg PO HS 03/18/19 08/03/19 History Gabapentin [Neurontin] 600 mg PO DAILY 07/14/19 08/03/19 History HYDROcodone/APAP 5-325MG [[place] 1 tab PO Q6H PRN 07/14/19 08/03/19 History 5-325] Rivaroxaban [Xarelto] 20 mg PO DAILY 07/14/19 08/03/19 History DULoxetine HCL [Cymbalta] 40 mg PO DAILY 07/15/19 08/03/19 History Diltiazem HCl 30 mg PO Q6H 07/15/19 08/03/19 History busPIRone HCl [Buspar] 5 mg PO BID 07/15/19 08/03/19 History Albuterol Inhaler [Ventolin Hfa 1 - 2 puff INHALATION RT-Q6H PRN 08/03/19 08/03/19 History Inhaler] Aspirin EC [Ecotrin Low Dose] 81 mg PO DAILY 08/03/19 08/03/19 History Atorvastatin [Lipitor] 10 mg PO HS 08/03/19 08/03/19 History Ergocalciferol (Vitamin D2) 50,000 unit PO WE 08/03/19 08/03/19 History [Vitamin D2] Furosemide [Lasix] 40 mg PO HS 08/03/19 08/03/19 History Furosemide [Lasix] 80 mg PO Q7D 08/03/19 08/03/19 History Hydrocortisone [Cortef] 10 mg PO BID 08/03/19 08/03/19 History Lidocaine 5% Patch [Lidoderm] 1 patch TOPICAL DAILY 08/03/19 08/03/19 History Melatonin 5 mg PO HS 08/03/19 08/03/19 History Polyethylene Glycol 3350 [Miralax] 17 gm PO Q3D PRN 08/03/19 08/03/19 History Tiotropium 18 Mcg/Puff [Spiriva] 1 puff INHALATION RT-DAILY 08/03/19 08/03/19 History Allergies Allergy/AdvReac Type Severity Reaction Status Date / Time codeine Allergy Severe Swelling Verified 08/03/19 12:32 OF THROAT WITH COUGH SYRUP chlorpheniramine Allergy Unknown Verified 08/03/19 12:32 febuxostat [From Uloric] Allergy Unknown Verified 08/03/19 12:32 phenylephrine Allergy Unknown Verified 08/03/19 12:32 piperacillin sodium Allergy Unknown Verified 08/03/19 12:32 [From Zosyn] tazobactam sodium Allergy Unknown Verified 08/03/19 12:32 [From Zosyn] Physical Exam Vitals: Vital Signs Temp Pulse Pulse Resp BP BP BP 08/04/19 08:50 88 08/04/19 08:41 86 08/04/19 06:54 98.0 F 75 16 136/72 08/04/19 06:31 97.1 F L 85 18 121/64 08/04/19 00:34 93 142/80 08/03/19 19:55 88 08/03/19 19:47 88 08/03/19 19:45 99.2 F 88 16 132/78 08/03/19 16:45 98.7 F 92 142/76 08/03/19 16:44 90 08/03/19 16:36 88 08/03/19 16:12 99.1 F 87 22 160/78 08/03/19 15:30 99.0 F 84 20 149/73 08/03/19 14:22 82 08/03/19 14:15 86 08/03/19 13:46 18 115/77 08/03/19 13:30 115/77 08/03/19 13:00 129/64 08/03/19 12:30 78 129/64 08/03/19 12:00 83 129/64 08/03/19 11:30 82 129/64 08/03/19 11:00 88 129/64 08/03/19 10:55 84 F L 83 18 129/64 Pulse Ox 08/04/19 08:50 08/04/19 08:41 08/04/19 06:54 92 L 08/04/19 06:31 96 08/04/19 00:34 08/03/19 19:55 08/03/19 19:47 08/03/19 19:45 08/03/19 16:45 08/03/19 16:44 08/03/19 16:36 08/03/19 16:12 99 08/03/19 15:30 99 08/03/19 14:22 08/03/19 14:15 08/03/19 13:46 94 L 08/03/19 13:30 94 L 08/03/19 13:00 08/03/19 12:30 97 08/03/19 12:00 98 08/03/19 11:30 93 L 08/03/19 11:00 97 08/03/19 10:55 93 L Intake and Output 08/03/19 08/04/19 08/04/19 22:59 06:59 14:59 Intake Total 590 240 Output Total 1500 1000 Balance -910 -1000 240 Intake: Oral 590 240 Output: Urine 1500 1000 Other: Voiding Method Urinal # Bowel Movements 1 Results 08/04/19 06:57 08/04/19 06:57 Cardiac Enzymes 08/03/19 08/03/19 08/03/19 Range/Units 12:40 12:40 18:57 AST 25 (17-59) U/L Troponin I <0.012 <0.012 (0.000-0.034) ng/mL 08/04/19 Range/Units 00:55 AST (17-59) U/L Troponin I <0.012 (0.000-0.034) ng/mL Coagulation 08/03/19 Range/Units 12:40 PT 10.6 (9.0-12.0) sec APTT 29.7 (22.0-30.0) sec CBC 08/03/19 08/04/19 Range/Units 12:40 06:57 WBC 5.8 6.1 (3.8-10.6) k/uL RBC 4.03 L 4.12 L (4.30-5.90) m/uL Hgb 11.1 L 11.3 L (13.0-17.5) gm/dL Hct 35.9 L 35.2 L (39.0-53.0) % Plt Count 305 291 (150-450) k/uL Comprehensive Metabolic Panel 08/03/19 08/04/19 Range/Units 12:40 06:57 Sodium 140 138 (137-145) mmol/L Potassium 4.3 3.9 (3.5-5.1) mmol/L Chloride 91 L 89 L (98-107) mmol/L Carbon Dioxide 46 H* 43 H* (22-30) mmol/L BUN 16 20 (9-20) mg/dL Creatinine 0.77 0.69 (0.66-1.25) mg/dL Glucose 92 166 H (74-99) mg/dL Calcium 9.5 9.9 (8.4-10.2) mg/dL AST 25 (17-59) U/L ALT 41 (21-72) U/L Alkaline Phosphatase 99 (38-126) U/L Total Protein 5.8 L (6.3-8.2) g/dL Albumin 3.2 L (3.5-5.0) g/dL Current Medications Generic Name Dose Route Start Last Admin Trade Name Freq PRN Reason Stop Dose Admin Hydrocodone Bitart/Acetaminophen 1 each 08/03/19 14:51 08/04/19 08:18 [place] 5-325 PO 1 each Q6H PRN Administration Pain Albuterol/Ipratropium 3 ml 08/03/19 20:00 08/04/19 08:39 Duoneb 0.5 Mg-3 Mg/3 Ml Soln INHALATION 3 ml RT-QID YUN Administration Albuterol/Ipratropium 3 ml 08/03/19 19:48 Duoneb 0.5 Mg-3 Mg/3 Ml Soln INHALATION RT-Q2H PRN Shortness Of Breath Or Wheezing Aspirin 81 mg 08/03/19 15:00 08/04/19 08:18 Aspirin PO 81 mg DAILY YUN Administration Atorvastatin Calcium 10 mg 08/03/19 21:00 08/03/19 21:08 Lipitor PO 10 mg HS YUN Administration Buspirone HCl 5 mg 08/03/19 21:00 08/04/19 08:18 Buspar PO 5 mg BID YUN Administration Diltiazem HCl 30 mg 08/03/19 18:00 08/04/19 06:31 Cardizem Oral PO 30 mg Q6HR YUN Administration Duloxetine HCl 40 mg 08/03/19 15:00 08/03/19 17:19 Cymbalta PO 40 mg DAILY YUN Administration Gabapentin 600 mg 08/03/19 15:00 08/04/19 08:17 Neurontin PO 600 mg DAILY YUN Administration Hydrocortisone 10 mg 08/03/19 21:00 08/04/19 08:20 Cortef PO 10 mg BID YUN Administration Lidocaine 2 patch 08/04/19 09:00 Lidoderm TOPICAL DAILY YUN Naloxone HCl 0.2 mg 08/03/19 14:49 Narcan IV Q2M PRN Opioid Reversal Olanzapine 20 mg 08/03/19 21:00 08/03/19 21:08 Zyprexa PO 20 mg HS YUN Administration Rivaroxaban 20 mg 08/03/19 15:00 08/04/19 08:20 Xarelto PO 20 mg DAILY YUN Administration Intake and Output 08/03/19 08/04/19 08/04/19 22:59 06:59 14:59 Intake Total 590 240 Output Total 1500 1000 Balance -910 -1000 240 Intake: Oral 590 240 Output: Urine 1500 1000 Other: Voiding Method Urinal # Bowel Movements 1 08/04/19 06:57 08/04/19 06:57
[2019-08-04 13:41] LABS: Glucose,Whole Blood 170 mg/dL (75-99)
[2019-08-04] MEDS: DULoxetine HCL 20 MG CAPSULE.DR PO SCH (14:25)
[2019-08-04] MEDS: LIDOCAINE 5% PATCH TOPICAL SCH (14:25)
[2019-08-04 15:37] VITALS: BMI 52.2
--- NOTE | 2019-08-04 16:05 | XR ---
EXAMINATION TYPE: XR chest 1V portable DATE OF EXAM: 08/04/2019 Comparison: 08/03/2019 Clinical History: 58-year-old female status post right thoracentesis Findings: Heart upper limits of normal in size. Residual small right pleural effusion significantly decreased f rom prior exam. Prominent densities project over the bilateral apices, likely superimposition artifac t with the ribs. Additional short interval follow-up is recommended. No obvious pneumothorax seen at this time. Impression: Residual small right pleural effusion, significantly improved from prior. Prominent overlapping struc tures within the apices. No definite pneumothorax is seen. Short interval follow-up should be conside red.
[2019-08-04 16:49] LABS: Glucose,Whole Blood 128 mg/dL (75-99)
[2019-08-04] MEDS: FUROSEMIDE 40 MG TAB PO SCH (17:52)
--- NOTE | 2019-08-04 17:52 | P.HPIM ---
History of Present Illness H&P Date: 08/04/19 Chief Complaint: Shortness of breath with edema History of presenting complaint: This is a 58-year-old patient who follows with visiting physician Dr. Antelmo Steele. Patient has a rather extensive medical history. Patient presented increasing shortness of breath chest tightness for about a week. Also increasing lower extremity edema for the same period. Slight cough. Did bring up some mucus today. Appetite is gone down. Bowels are okay. No change in urination. Patient has not really walked since January of this year. Has a hospital bed at home. Denies any fever and chills. Diastolic CHF, atrial fibrillation, pseudoseizures with extensive work up including congestive EEG monitoring done at [facility] recently, morbid obesity, sleep gastrectomy, COPD, diabetes mellitus, anxiety, depression, bipolar disorder. Patient recently positive for C. diff.That failed vancomycin taper and was treated with Dificid. Patient's at home with his son. Review of systems: GEN.: Tired EYES: None HEENT: None NECK: None RESPIRATORY: Short of breath CARDIOVASCULAR: As above GASTROINTESTINAL: None GENITOURINARY: None MUSCULOSKELETAL: None LYMPHATICS: None HEMATOLOGICAL: None PSYCHIATRY: Slightly anxious NEUROLOGICAL: Weakness in the legs Past medical history: To include Diastolic CHF, atrial fibrillation, pseudoseizures with extensive work up including congestive EEG monitoring done at [facility] recently, morbid obesity, sleep gastrectomy, COPD, diabetes mellitus, anxiety, depression, bipolar disorder. Recent C. diff Social history: Currently at home with her son. Has a hospital bed apparently has a Marah lift. Smoked from age of 15 stopped in 1998. Smoked a few cigarettes a day. Prior alcohol abuse. Stopped in 2012. Did do IV drug in the past. Family history: Lung cancer Physical examination: VITAL SIGNS: 99, 84, 20, 149/73, 99% on 3 L GENERAL: BMI 52.2, sitting up in the bed slightly short of breath. EYES: Pupils equal. Conjunctiva normal. HEENT: External appearance of nose and ears normal, oral cavity grossly normal. NECK: JVD unable to assess, mass not palpable. HEART: Heart sounds are distant, edema present. LUNGS: Respiratory rate increased, diminished breath sounds. ABDOMEN: Soft, nontender, liver spleen not palpable, no masses palpable. PSYCH: Alert and oriented x3; mood and affect normal. NEUROLOGICAL: Cranial nerves grossly intact; no facial asymmetry, decreased power in both lower extremity. LYMPHATICS: No lymph nodes palpable in the axilla and neck INVESTIGATIONS, reviewed in the clinical context: White count 5.8 hemoglobin 11.1 platelets 305 potassium 4.3 bun 16 creatinine 0. 77 Accu-Cheks 67, 61 Chest x-ray film personally reviewed by me-personally reviewed by me shows large right pleural effusion EKG tracing personally reviewed by me-normal sinus rhythm, poor baseline Chest CTA-bilateral pleural effusion right much greater than the left, some right-sided volume loss 2-D echocardiogram-severe concentric LVH, EF 60-65%, moderate tricuspid regurgitation Assessment: -Acute on chronic congestive heart failure from diastolic dysfunction EF 60-65%, from hypertensive heart disease -Hypertensive heart disease -Paroxysmal atrial fibrillation currently in sinus rhythm, chronically on 0 to -C2 seizures with extensive workup at [facility] in the past -Morbid obesity BMI 52.2 -Diabetes mellitus type 2 -Bipolar disorder -Medical debility line- -Bilateral pleural effusion, with large right pleural effusion possibly from underlying CHF other causes to be ruled out Plan: Consultation was made to cardiology and pulmonary. Home medications resumed. Accu-Cheks will be followed. Earlier today right thoracentesis was carried out. Care was discussed with the patient. Questions were answered. We'll order proBNP Past Medical History Past Medical History: Asthma, Cancer, COPD, CVA/TIA, Diabetes Mellitus, Deep Vein Thrombosis (DVT), GERD/Reflux, GI Bleed, Hyperlipidemia, Osteoarthritis (OA), Pneumonia, Pulmonary Embolus (PE), Renal Disease, Sleep Apnea/CPAP/BIPAP Additional Past Medical History / Comment(s): HYPOGLYCEMIA. NO C-PAP. DDD, SCOLIOSIS OF SPINE, SLEEPS IN RECLINER. HAVING . HX OF SKIN CANCER , Hiatal Hernia. Irregular HR in the past. DVT IN LEG, WENT TO LUNG - AFTER HIP SURG. BLOOD IN STOOL,RENAL DISEASE-STAGE 3," RETAINS FLUIDS " History of Any Multi-Drug Resistant Organisms: MRSA Date of last positivie culture/infection: AUG 2014 MDRO Source:: NASAL Past Surgical History: Appendectomy, Bariatric Surgery, Heart Catheterization, Hernia Repair, Joint Replacement, Orthopedic Surgery Additional Past Surgical History / Comment(s): RT ELBOW SURG X2, TOTAL RT HIP,ARTHROSCOPIC LT KNEE X2, RT ANKLE RECONSTRUCTIVE SURG, JANUARY 2014 GASTRIC SLEEVE, COLONOSCOPY'S. Basal Cell CA Face, Back. LT ING HERNIA Past Anesthesia/Blood Transfusion Reactions: Previous Problems w/ Anesthesia Additional Past Anesthesia/Blood Transfusion Reaction / Comment(s): STATES HE WAS TOLD HE WAS A DIFFICULT INTUBATION WITH GASTRIC SLEEVE SURGERY, Past Psychological History: Anxiety, Depression, Panic Disorder, Schizoaffective Disorder Smoking Status: Former smoker Past Alcohol Use History: None Reported Past Drug Use History: IV Drug Use - Past Family History Father Family Medical History: Cancer Additional Family Medical History / Comment(s): LUNG CA Medications and Allergies Home Medications Medication Instructions Recorded Confirmed Type OLANZapine [ZyPREXA] 20 mg PO HS 03/18/19 08/03/19 History Gabapentin [Neurontin] 600 mg PO DAILY 07/14/19 08/03/19 History HYDROcodone/APAP 5-325MG [[place] 1 tab PO Q6H PRN 07/14/19 08/03/19 History 5-325] Rivaroxaban [Xarelto] 20 mg PO DAILY 07/14/19 08/03/19 History DULoxetine HCL [Cymbalta] 40 mg PO DAILY 07/15/19 08/03/19 History Diltiazem HCl 30 mg PO Q6H 07/15/19 08/03/19 History busPIRone HCl [Buspar] 5 mg PO BID 07/15/19 08/03/19 History Albuterol Inhaler [Ventolin Hfa 1 - 2 puff INHALATION RT-Q6H PRN 08/03/19 08/03/19 History Inhaler] Aspirin EC [Ecotrin Low Dose] 81 mg PO DAILY 08/03/19 08/03/19 History Atorvastatin [Lipitor] 10 mg PO HS 08/03/19 08/03/19 History Ergocalciferol (Vitamin D2) 50,000 unit PO WE 08/03/19 08/03/19 History [Vitamin D2] Furosemide [Lasix] 40 mg PO HS 08/03/19 08/03/19 History Furosemide [Lasix] 80 mg PO Q7D 08/03/19 08/03/19 History Hydrocortisone [Cortef] 10 mg PO BID 08/03/19 08/03/19 History Lidocaine 5% Patch [Lidoderm] 1 patch TOPICAL DAILY 08/03/19 08/03/19 History Melatonin 5 mg PO HS 08/03/19 08/03/19 History Polyethylene Glycol 3350 [Miralax] 17 gm PO Q3D PRN 08/03/19 08/03/19 History Tiotropium 18 Mcg/Puff [Spiriva] 1 puff INHALATION RT-DAILY 08/03/19 08/03/19 History Allergies Allergy/AdvReac Type Severity Reaction Status Date / Time codeine Allergy Severe Swelling Verified 08/03/19 12:32 OF THROAT WITH COUGH SYRUP chlorpheniramine Allergy Unknown Verified 08/03/19 12:32 febuxostat [From Uloric] Allergy Unknown Verified 08/03/19 12:32 phenylephrine Allergy Unknown Verified 08/03/19 12:32 piperacillin sodium Allergy Unknown Verified 08/03/19 12:32 [From Zosyn] tazobactam sodium Allergy Unknown Verified 08/03/19 12:32 [From Zosyn] Physical Exam Vitals: Vital Signs Temp Pulse Pulse Resp BP BP BP 08/04/19 08:50 88 08/04/19 08:41 86 08/04/19 06:54 98.0 F 75 16 136/72 08/04/19 06:31 97.1 F L 85 18 121/64 08/04/19 00:34 93 142/80 08/03/19 19:55 88 08/03/19 19:47 88 08/03/19 19:45 99.2 F 88 16 132/78 08/03/19 16:45 98.7 F 92 142/76 08/03/19 16:44 90 08/03/19 16:36 88 08/03/19 16:12 99.1 F 87 22 160/78 08/03/19 15:30 99.0 F 84 20 149/73 08/03/19 14:22 82 08/03/19 14:15 86 08/03/19 13:46 18 115/77 08/03/19 13:30 115/77 08/03/19 13:00 129/64 08/03/19 12:30 78 129/64 08/03/19 12:00 83 129/64 08/03/19 11:30 82 129/64 08/03/19 11:00 88 129/64 08/03/19 10:55 84 F L 83 18 129/64 Pulse Ox 08/04/19 08:50 08/04/19 08:41 09/06/19 06:54 92 L 08/04/19 06:31 96 08/04/19 00:34 08/03/19 19:55 08/03/19 19:47 08/03/19 19:45 08/03/19 16:45 08/03/19 16:44 08/03/19 16:36 08/03/19 16:12 99 08/03/19 15:30 99 08/03/19 14:22 08/03/19 14:15 08/03/19 13:46 94 L 08/03/19 13:30 94 L 08/03/19 13:00 08/03/19 12:30 97 08/03/19 12:00 98 08/03/19 11:30 93 L 08/03/19 11:00 97 08/03/19 10:55 93 L Intake and Output 08/03/19 08/04/19 08/04/19 22:59 06:59 14:59 Intake Total 590 240 Output Total 1500 1000 Balance -910 -1000 240 Intake: Oral 590 240 Output: Urine 1500 1000 Other: Voiding Method Urinal # Bowel Movements 1 Results CBC & Chem 7: 08/04/19 06:57 08/04/19 06:57 Labs: Abnormal Lab Results - Last 24 Hours (Table) 08/03/19 08/03/19 08/03/19 Range/Units 12:40 12:40 12:40 RBC 4.03 L (4.30-5.90) m/uL Hgb 11.1 L (13.0-17.5) gm/dL Hct 35.9 L (39.0-53.0) % RDW 16.1 H (11.5-15.5) % Lymphocytes # (1.0-4.8) k/uL D-Dimer 0.95 H (<0.60) mg/L FEU Chloride 91 L (98-107) mmol/L Carbon Dioxide 46 H* (22-30) mmol/L Glucose (74-99) mg/dL POC Glucose (mg/dL) (75-99) mg/dL Total Protein 5.8 L (6.3-8.2) g/dL Albumin 3.2 L (3.5-5.0) g/dL 08/03/19 08/03/1919 Range/Units 14:43 15:27 17:03 RBC (4.30-5.90) m/uL Hgb (13.0-17.5) gm/dL Hct (39.0-53.0) % RDW (11.5-15.5) % Lymphocytes # (1.0-4.8) k/uL D-Dimer (<0.60) mg/L FEU Chloride (98-107) mmol/L Carbon Dioxide (22-30) mmol/L Glucose (74-99) mg/dL POC Glucose (mg/dL) 67 L 61 L 125 H (75-99) mg/dL Total Protein (6.3-8.2) g/dL Albumin (3.5-5.0) g/dL 08/03/19 08/04/19 08/04/19 Range/Units 22:13 06:57 06:57 RBC 4.12 L (4.30-5.90) m/uL Hgb 11.3 L (13.0-17.5) gm/dL Hct 35.2 L (39.0-53.0) % RDW 16.0 H (11.5-15.5) % Lymphocytes # 0.4 L (1.0-4.8) k/uL D-Dimer (<0.60) mg/L FEU Chloride 89 L (98-107) mmol/L Carbon Dioxide 43 H* (22-30) mmol/L Glucose 166 H (74-99) mg/dL POC Glucose (mg/dL) 200 H (75-99) mg/dL Total Protein (6.3-8.2) g/dL Albumin (3.5-5.0) g/dL 08/04/19 Range/Units 07:02 RBC (4.30-5.90) m/uL Hgb (13.0-17.5) gm/dL Hct (39.0-53.0) % RDW (11.5-15.5) % Lymphocytes # (1.0-4.8) k/uL D-Dimer (<0.60) mg/L FEU Chloride (98-107) mmol/L Carbon Dioxide (22-30) mmol/L Glucose (74-99) mg/dL POC Glucose (mg/dL) 166 H (75-99) mg/dL Total Protein (6.3-8.2) g/dL Albumin (3.5-5.0) g/dL Thrombosis Risk Factor Assmnt - Choose All That Apply Any of the Below Risk Factors Present?: Yes Each Factor Represents 1 point: Age 41-60 years, Obesity (BMI >25), Swollen legs (current) Thrombosis Risk Factor Assessment Total Risk Factor Score: 3 Thrombosis Risk Factor Assessment Level: Moderate Risk
[2019-08-04 17:59] LABS: Appearance,BF Cloudy; Color,BF Orange; Nucleated Cells, Body Fluid 1111 /uL; RBC, Body Fluid 40000 /uL
--- NOTE | 2019-08-04 18:04 | P.CNPUL ---
History of Present Illness Consult date: 08/04/19 Reason for consult: pleural effusion Chief complaint: Shortness of breath History of present illness: A 58-year-old morbidly obese male patient who has been bedridden and has multiple medical problems and comorbidities. He denies having any previous history of coronary artery disease. He has history of paroxysmal atrial fibrillation and his been on long-term anticoagulation. He has diabetes, hyperlipidemia and COPD as the patient is a former smoker. He has also suffered a previous CVA. He has had multiple hospitalization for complications related to C. diff colitis. Currently this issue is not active. The patient came into the hospital because of increased shortness of breath. No pleurisy. No hemoptysis. A computed tomography scan of the chest was done that showed no evidence of any pulmonary embolism. There was a large right-sided pleural effusion noted with compressive atelectasis of the right lung base. Based on this, a pulmonary consultation was requested. There was no evidence of any pul monary embolism. There was some volume loss in the right lung base. ProBNP level was 336. Troponins were negative. The patient has chronic hypercapnic respiratory failure and a serum bicarbonate of 43. The white cell count is not elevated at 6.1. He was maintained on Xarelto on outpatient basis regarding anticoagulants. Review of Systems CONSTITUTIONAL: Denies fever. Denies chills. EYES: Denies blurred vision. Denies vision changes. Denies eye pain. EARS, NOSE, MOUTH & THROAT: Denies headache. Denies sore throat. Denies ear pain. CARDIOVASCULAR: Denies chest pain. Complains of shortness of breath. Denies orthopnea. Denies PND. Denies palpitations. RESPIRATORY: Denies cough. There is reported history of worsening shortness of breath even at rest. The patient is bedridden. GASTROINTESTINAL: Denies abdominal pain. Denies diarrhea. Denies constipation. Denies nausea. Denies vomiting. MUSCULOSKELETAL: Denies myalgias. In general, the patient has significant motor weakness in lower extremities. The patient has undergone a previous hip surgery in 2010. He also has degenerative arthritis and scoliosis of the spine and along with his morbid obesity has become nonambulatory. His speech is within normal limits. INTEGUMENTARY: Denies pruitis. Denies rash. NEUROLOGIC: Denies numbness. Denies tingling. The patient is nonambulatory. He has chronic edema lower extremities bilaterally. PSYCHIATRIC: Denies anxiety. Denies depression. ENDOCRINE: Denies fatigue. Denies weight change. Denies polydipsia. Denies polyurina. GENITOURINARY: Denies burning, hematuria or urgency with micturation. HEMATOLOGIC: Denies history of anemia. Denies bleeding. Past Medical History Past Medical History: Cancer, COPD, CVA/TIA, Diabetes Mellitus, Deep Vein Thrombosis (DVT), GERD/Reflux, GI Bleed, Hyperlipidemia, Osteoarthritis (OA), Pneumonia, Pulmonary Embolus (PE), Renal Disease, Sleep Apnea/CPAP/BIPAP Additional Past Medical History / Comment(s): Morbid obesity, COPD, diabetes mellitus, history of CVA, hyperlipidemia, chronic stage III kidney disease, history of skin cancer, chronic atrial fibrillation, DVT in the left lower extremity, previous history of pulmonary embolism, previous history of obstructive sleep apnea, previous history of GI bleed, severe degenerative arthritis, scoliosis of the spine, chronic pain, hiatal hernia, previous history of C. diff colitis and ongoing recurrent issue History of Any Multi-Drug Resistant Organisms: MRSA Date of last positivie culture/infection: AUG 2014 MDRO Source:: NASAL Past Surgical History: Appendectomy, Bariatric Surgery, Heart Catheterization, Hernia Repair, Joint Replacement, Orthopedic Surgery Additional Past Surgical History / Comment(s): Appendectomy, cardiac catheterization, left inguinal hernia repair, hip replacement on the right, left knee surgery 2, right ankle reconstructive surgery, bariatric surgery which includes gastric sleeve, colonoscopy, resection of a skin cancer from the face, back surgery, elbow surgery Past Anesthesia/Blood Transfusion Reactions: Previous Problems w/ Anesthesia Additional Past Anesthesia/Blood Transfusion Reaction / Comment(s): STATES HE WAS TOLD HE WAS A DIFFICULT INTUBATION WITH GASTRIC SLEEVE SURGERY, Past Psychological History: Anxiety, Depression, Panic Disorder, Schizoaffective Disorder Smoking Status: Former smoker Past Alcohol Use History: None Reported Past Drug Use History: IV Drug Use - Past Family History Father Family Medical History: Cancer Additional Family Medical History / Comment(s): LUNG CA Medications and Allergies Home Medications Medication Instructions Recorded Confirmed Type OLANZapine [ZyPREXA] 20 mg PO HS 03/18/19 08/03/19 History Gabapentin [Neurontin] 600 mg PO DAILY 07/14/19 08/03/19 History HYDROcodone/APAP 5-325MG [[place] 1 tab PO Q6H PRN 07/14/19 08/03/19 History 5-325] Rivaroxaban [Xarelto] 20 mg PO DAILY 07/14/19 08/03/19 History DULoxetine HCL [Cymbalta] 40 mg PO DAILY 07/15/19 08/03/19 History Diltiazem HCl 30 mg PO Q6H 07/15/19 08/03/19 History busPIRone HCl [Buspar] 5 mg PO BID 07/15/19 08/03/19 History Albuterol Inhaler [Ventolin Hfa 1 - 2 puff INHALATION RT-Q6H PRN 08/03/19 08/03/19 History Inhaler] Aspirin EC [Ecotrin Low Dose] 81 mg PO DAILY 08/03/19 08/03/19 History Atorvastatin [Lipitor] 10 mg PO HS 08/03/19 08/03/19 History Ergocalciferol (Vitamin D2) 50,000 unit PO WE 08/03/19 08/03/19 History [Vitamin D2] Furosemide [Lasix] 40 mg PO HS 08/03/19 08/03/19 History Furosemide [Lasix] 80 mg PO Q7D 08/03/19 08/03/19 History Hydrocortisone [Cortef] 10 mg PO BID 08/03/19 08/03/19 History Lidocaine 5% Patch [Lidoderm] 1 patch TOPICAL DAILY 08/03/19 08/03/19 History Melatonin 5 mg PO HS 08/03/19 08/03/19 History Polyethylene Glycol 3350 [Miralax] 17 gm PO Q3D PRN 08/03/19 08/03/19 History Tiotropium 18 Mcg/Puff [Spiriva] 1 puff INHALATION RT-DAILY 08/03/19 08/03/19 History Allergies Allergy/AdvReac Type Severity Reaction Status Date / Time codeine Allergy Severe Swelling Verified 08/03/19 12:32 OF THROAT WITH COUGH SYRUP chlorpheniramine Allergy Unknown Verified 08/03/19 12:32 febuxostat [From Uloric] Allergy Unknown Verified 08/03/19 12:32 phenylephrine Allergy Unknown Verified 08/03/19 12:32 piperacillin sodium Allergy Unknown Verified 08/03/19 12:32 [From Zosyn] tazobactam sodium Allergy Unknown Verified 08/03/19 12:32 [From Zosyn] Physical Exam Vitals: Vital Signs Temp Pulse Pulse Resp BP BP Pulse Ox 08/04/19 16:11 88 08/04/19 16:00 88 08/04/19 13:31 98.6 F 108 H 16 111/67 94 L 08/04/19 11:48 86 08/04/19 11:37 84 08/04/19 08:50 88 08/04/19 08:41 86 08/04/19 06:54 98.0 F 75 16 136/72 92 L 08/04/19 06:31 97.1 F L 85 18 121/64 96 08/04/19 00:34 93 142/80 08/03/19 19:55 88 08/03/19 19:47 88 08/03/19 19:45 99.2 F 88 16 132/78 Intake and Output 08/04/19 08/04/19 08/04/19 06:59 14:59 22:59 Intake Total 480 Output Total 1000 825 Balance -1000 -345 Intake: Oral 480 Output: Urine 1000 825 Other: # Bowel Movements 1 Weight 199.581 kg GENERAL: This is a 58-year-old male in no apparent distress at the time of my examination. Morbidly obese. The patient has a BMI 52.2 Head exam was generally normal. There was no scleral icterus or corneal arcus. Mucous membranes were moist. Neck was supple and without jugular venous distension, thyromegaly, or carotid bruits. Carotids were easily palpable bilaterally. There was no adenopathy. LUNGS: Initial breath sounds bilaterally especially in the right lung along with dullness to percussion. Breath sounds are quite diminished in the right lung base. HEART: Regular rate and rhythm without murmurs, rubs or gallops. S1 and S2 heard. ABDOMEN: Soft, nontender. Bowel sounds are heard. No organomegaly noted. EXTREMITIES: Bilateral lower extremity circumferential nonpitting edema. No calf tenderness noted. VASCULAR: Radial and dorsalis pedis pulses palpated, no evidence of clubbing. NEUROLOGIC: Patient is awake, alert and oriented x3. Motor weakness is obvious in lower extremities bilaterally. Skeletal examination the patient has scars of previous surgery and chronic contractures in lower extremities bilaterally. Results - Laboratory Findings CBC and BMP: 08/04/19 06:57 08/04/19 06:57 PT/INR, D-dimer PT 10.6 sec (9.0-12.0) 08/03/19 12:40 INR 1.0 (<1.2) 08/03/19 12:40 D-Dimer 0.95 mg/L FEU (<0.60) H 08/03/19 12:40 Abnormal lab findings: Abnormal Labs 08/03/19 08/03/19 08/03/19 12:40 12:40 12:40 RBC 4.03 L Hgb 11.1 L Hct 35.9 L RDW 16.1 H Lymphocytes # D-Dimer 0.95 H Chloride 91 L Carbon Dioxide 46 H* Glucose POC Glucose (mg/dL) Total Protein 5.8 L Albumin 3.2 L 08/03/19 08/03/19 08/03/19 14:43 15:27 17:03 RBC Hgb Hct RDW Lymphocytes # D-Dimer Chloride Carbon Dioxide Glucose POC Glucose (mg/dL) 67 L 61 L 125 H Total Protein Albumin 08/03/19 08/04/19 08/04/19 22:13 06:57 06:57 RBC 4.12 L Hgb 11.3 L Hct 35.2 L RDW 16.0 H Lymphocytes # 0.4 L D-Dimer Chloride 89 L Carbon Dioxide 43 H* Glucose 166 H POC Glucose (mg/dL) 200 H Total Protein Albumin 08/04/19 08/04/19 08/04/19 07:02 11:29 13:38 RBC Hgb Hct RDW Lymphocytes # D-Dimer Chloride Carbon Dioxide Glucose POC Glucose (mg/dL) 166 H 124 H 170 H Total Protein Albumin 08/04/19 16:46 RBC Hgb Hct RDW Lymphocytes # D-Dimer Chloride Carbon Dioxide Glucose POC Glucose (mg/dL) 128 H Total Protein Albumin - Diagnostic Findings Chest x-ray: image reviewed CT scan - chest: image reviewed Assessment and Plan Plan: 1 acute on chronic shortness of breath, the decompensating fact there is development of a large right-sided pleural effusion with compressive atelectasis of the right lung base that needs to be further investigated. 2 large right-sided pleural effusion, etiology is not clear. 3 morbid obesity with a BMI of 52.2, the patient is post gastric sleeve procedure for morbid obesity 4 obstructive sleep apnea. 5 history of DVT and pulmonary embolism maintained on Xarelto 6 paroxysmal atrial fibrillation 7 diabetes mellitus 8 COPD 9 hyperlipidemia 10 osteoarthritis/scoliosis of the spine/chronic difficulties mobility related to multiple orthopedic surgeries and morbid obesity. The patient has had surgeries on his ankles, knees, back and hip. 11 previous history of C. diff colitis 12 chronic difficulty with mobility and gait and the patient is bedridden 13 generalized weakness 14 chronic pain 15 history of depression/bipolar disorder 16 history of pseudoseizures Plan We will to proceed with a right-sided thoracentesis and is noted on the bedside. Fluid was sent for analysis. Further recommendations are to follow.
[2019-08-04 19:29] LABS: Mononuclear WBC,Body Fluid 95 %; Polynuclear WBC,Body Fluid 4 %; Total Cells Counted,Body Fluid 100
[2019-08-04 20:56] LABS: Glucose,Whole Blood 135 mg/dL (75-99)
[2019-08-04] MEDS: ATORVASTATIN 10 MG TAB PO SCH (20:59)
[2019-08-04] MEDS: MELATONIN 5 MG TABLET PO SCH (20:59)
[2019-08-04] MEDS: OLANZapine 10 MG TAB PO SCH (21:00)
[2019-08-04 23:07] LABS: Glucose,Whole Blood 136 mg/dL (75-99)
[2019-08-04] MEDS: IPRATROPIUM-ALBUTEROL 3 ML NEB INHALATION PRN (23:32)
[2019-08-05] MEDS: IPRATROPIUM-ALBUTEROL 3 ML NEB INHALATION PRN (05:05)
[2019-08-05] MEDS: HYDROcodone/APAP 5-325MG 1 EACH TAB PO PRN ×3 (05:13→22:41)
[2019-08-05 05:31] LABS: Glucose,Whole Blood 100 mg/dL (75-99)
[2019-08-05] MEDS: DILTIAZEM ORAL 30 MG TAB PO SCH ×4 (06:38→22:44)
[2019-08-05 07:07] LABS: Glucose,Whole Blood 107 mg/dL (75-99)
--- NOTE | 2019-08-05 07:07 | OP ---
OPERATIVE REPORT Indication Pleural effusion. A time-out was completed verifying correct patient, procedure, site, positioning, and implant(s) or special equipment if applicable. Ultrasound guidance was not used and appropriate fluid pocket was identified and marked. Patient was positioned, prepped and draped in usual sterile fashion. Lidocaine was used to anesthetize the area. A Thoracentesis catheter was introduced into the pleural space and fluid was removed. Blood loss was none. A chest x-ray was ordered to evaluate for pneumothorax. It showed no evidence of any pneumothorax. Total Fluid Removed: 950 mL Color of Fluid: Turbid dark yellowish pleural fluid. Fluid will be sent for analysis. Patient tolerated the procedure well and there were no complications. MMODL / IJN: [id number] /
[2019-08-05] MEDS: IPRATROPIUM-ALBUTEROL 3 ML NEB INHALATION SCH ×4 (07:54→20:20)
[2019-08-05] MEDS: GABAPENTIN 300 MG CAP PO SCH (09:15)
[2019-08-05] MEDS: METOPROLOL TARTRATE 25 MG TAB PO SCH (09:16)
[2019-08-05] MEDS: busPIRone HCl 5 MG TAB PO SCH ×2 (09:16→22:42)
[2019-08-05] MEDS: FUROSEMIDE 40 MG TAB PO SCH (09:16)
[2019-08-05] MEDS: DULoxetine HCL 20 MG CAPSULE.DR PO SCH (09:17)
[2019-08-05] MEDS: HYDROCORTISONE 10 MG TAB PO SCH ×2 (09:18→22:43)
[2019-08-05] MEDS: RIVAROXABAN 20 MG TAB PO SCH (09:18)
[2019-08-05] MEDS: LIDOCAINE 5% PATCH TOPICAL SCH (09:19)
--- NOTE | 2019-08-05 09:35 | PN ---
PROGRESS NOTE Mr. Saha is an obese gentleman 58 years of age, underwent thoracentesis yesterday with a L of pleural fluid taken out. The details and the results are pending. He has paroxysmal atrial fib, hypertension, obesity. He is comfortable, doing better overall. His edema is less. Vital signs are stable. There is JVD of 1 cm. No carotid bruit. S1-S2 heard normally. No significant murmurs. Heart rhythm is regular. No significant murmurs. Lungs revealed decent air entry bilateral lung vasquez. Improved compared to yesterday. Abdomen is soft. Lower extremity edema has improved. This gentleman has probably some diastolic heart failure. I am recommending that we discontinue his aspirin. Continue Xarelto and place him on 25 mg of metoprolol tartrate. No further intervention necessary from a cardiac standpoint. We will continue to see the patient as needed. MMODL / IJN: [id number] /
[2019-08-05 11:25] LABS: Glucose,Whole Blood 78 mg/dL (75-99)
--- NOTE | 2019-08-05 14:04 | P.PN ---
Subjective Progress Note Date: 08/05/19 A 58-year-old morbidly obese male patient who has been bedridden and has multiple medical problems and comorbidities. He denies having any previous history of coronary artery disease. He has history of paroxysmal atrial fibrillation and his been on long-term anticoagulation. He has diabetes, hyperlipidemia and COPD as the patient is a former smoker. He has also suffered a previous CVA. He has had multiple hospitalization for complications related to C. diff colitis. Currently this issue is not active. The patient came into the hospital because of increased shortness of breath. No pleurisy. No hemoptysis. A computed tomography scan of the chest was done that showed no evidence of any pulmonary embolism. There was a large right-sided pleural effusion noted with compressive atelectasis of the right lung base. Based on this, a pulmonary consultation was requested. There was no evidence of any pulmonary embolism. There was some volume loss in the right lung base. ProBNP level was 336. Troponins were negative. The patient has chronic hypercapnic respiratory failure and a serum bicarbonate of 43. The white cell count is not elevated at 6.1. He was maintained on Xarelto on outpatient basis regarding anticoagulants. On 08/05/2019 I'm seeing this patient for a follow-up. Following the bronchoscopy the patient is some pain in his right chest and for that reason a repeat chest x-ray will be done. There was no evidence of any pneumothorax at time of the procedure. The fluid seems to be transudate based on the fluid LDH and protein levels which are on the lower side. Final fluid cytology still pending for now. On today's evaluation the patient noted some fullness in the firm lesion the right chest wall area close to his right breast and this is to be further ultrasound to make sure there is no underlying malignancy or solid lesions. His resting comfortably in bed. He is currently on oxygen 2 L per minute nasal cannula. His hemodynamic is stable. Objective - Vital Signs Vital signs: Vital Signs Temp 98.2 F 08/05/19 07:00 Pulse 80 08/05/19 11:44 Resp 17 08/05/19 07:50 BP 118/70 08/05/19 07:00 Pulse Ox 95 08/05/19 07:00 Intake & Output 08/04/19 08/05/19 08/05/19 18:59 06:59 18:59 Intake Total 480 250 Output Total 825 950 Balance -345 -700 Weight 199.581 kg 177 kg Intake: Oral 480 250 Output: Urine 825 950 Other: Voiding Method Urinal # Voids 3 - Exam GENERAL: This is a 58-year-old male in no apparent distress at the time of my examination. Morbidly obese. The patient has a BMI 52.2 Head exam was generally normal. There was no scleral icterus or corneal arcus. Mucous membranes were moist. Neck was supple and without jugular venous distension, thyromegaly, or carotid bruits. Carotids were easily palpable bilaterally. There was no adenopathy. LUNGS: Initial breath sounds bilaterally especially in the right lung along with dullness to percussion. Breath sounds are quite diminished in the right lung base. HEART: Regular rate and rhythm without murmurs, rubs or gallops. S1 and S2 heard. ABDOMEN: Soft, nontender. Bowel sounds are heard. No organomegaly noted. EXTREMITIES: Bilateral lower extremity circumferential nonpitting edema. No calf tenderness noted. VASCULAR: Radial and dorsalis pedis pulses palpated, no evidence of clubbing. NEUROLOGIC: Patient is awake, alert and oriented x3. Motor weakness is obvious in lower extremities bilaterally. Skeletal examination the patient has scars of previous surgery and chronic contractures in lower extremities bilaterally. - Labs CBC & Chem 7: 08/04/19 06:57 08/04/19 06:57 Labs: Abnormal Lab Results - Last 24 Hours (Table) 08/04/19 08/04/19 08/04/19 Range/Units 16:46 20:55 23:06 POC Glucose (mg/dL) 128 H 135 H 136 H (75-99) mg/dL 08/05/19 08/05/19 Range/Units 05:10 06:55 POC Glucose (mg/dL) 100 H 107 H (75-99) mg/dL Microbiology - Last 24 Hours (Table) 08/04/19 15:50 Gram Stain - Preliminary Pleural Fluid Body Fluid Culture - Preliminary 08/04/19 15:50 Acid Fast Bacilli Smear - Final Pleural Fluid Acid Fast Bacilli Culture - Preliminary 08/04/19 15:50 Fungal Culture - Preliminary Pleural Fluid 08/04/19 15:50 Anaerobic Culture - Preliminary Pleural Fluid Assessment and Plan Plan: 1 acute on chronic shortness of breath, the decompensating fact there is development of a large right-sided pleural effusion with compressive atelectasis of the right lung base that needs to be further investigated. The patient underwent a thoracentesis yesterday and the pleural fluid is likely a tr ansudate. Repeat chest x-ray will be done today. Fluid cytology still pending for now. 2 large right-sided pleural effusion, etiology is not clear. Awaiting fluid cytology. The fluid itself is probably a transudate. 3 morbid obesity with a BMI of 52.2, the patient is post gastric sleeve proced ure for morbid obesity 4 obstructive sleep apnea. 5 history of DVT and pulmonary embolism maintained on Xarelto 6 paroxysmal atrial fibrillation 7 diabetes mellitus 8 COPD 9 hyperlipidemia 10 osteoarthritis/scoliosis of the spine/chronic difficulties mobility related to multiple orthopedic surgeries and morbid obesity. The patient has had surgeries on his ankles, knees, back and hip. 11 previous history of C. diff colitis 12 chronic difficulty with mobility and gait and the patient is bedridden 13 generalized weakness 14 chronic pain 15 history of depression/bipolar disorder 16 history of pseudoseizures Plan 3 chest x-ray today. Obtain an ultrasound of the right chest looking for any solid masses can be palpated on today's examination. This may be also breast tissue. Keep oxygen at 3 L per minute nasal cannula. Provide the patient incentive spirometer. We'll continue to follow.
[2019-08-05 14:13] LABS: Glucose,Whole Blood 98 mg/dL (75-99)
--- NOTE | 2019-08-05 15:23 | XR ---
EXAMINATION TYPE: XR chest 1V DATE OF EXAM: 08/05/2019 COMPARISON: Yesterday HISTORY: Short of breath. Pain. TECHNIQUE: Single frontal view of the chest is obtained. FINDINGS: There is blunting of right costophrenic angle. There are chest leads. There are no hilar m asses. Heart is probably enlarged. IMPRESSION: Right pleural effusion unchanged. No heart failure seen.
[2019-08-05 16:59] LABS: Glucose,Whole Blood 142 mg/dL (75-99)
--- NOTE | 2019-08-05 17:34 | P.PN ---
Progress Note - Text Progress Note Date: 08/05/19 Chief Complaint: Shortness of breath with edema Interval history: This is a 58-year-old patient who follows with visiting physician Dr. Antelmo Steele. Patient has a rather extensive medical history. Patient presented increasing shortness of breath chest tightness for about a week. Also increasing lower extremity edema for the same period. Slight cough. Did bring up some mucus today. Appetite is gone down. Bowels are okay. No change in urination. Patient has not really walked since January of this year. Has a hospital bed at home. Denies any fever and chills. Diastolic CHF, atrial fibrillation, pseudoseizures with extensive work up including congestive EEG monitoring done at [facility] recently, morbid obesity, sleep gastrectomy, COPD, diabetes mellitus, anxiety, depression, bipolar disorder. Patient recently positive for C. diff.That failed vancomycin taper and was treated with Dificid. Patient's at home with his son. Admitted with CHF exacerbation. Large right pleural effusion-9 50 mL of thoracentesis Today-laying in bed appears more comfortable. Had all breakfast and all his lunch. Pleural fluid cytology pending Review of systems: Was done for constitutional, cardiovascular, GI, pulmonary. relevant finding as above Active Medications Hydrocodone Bitart/Acetaminophen ([place] 5-325) 1 each PO Q6H PRN PRN Reason: Pain Last Admin: 08/05/19 16:06 Dose: 1 each Documented by: Albuterol/Ipratropium (Duoneb 0.5 Mg-3 Mg/3 Ml Soln) 3 ml INHALATION RT-QID ON LICENSE OF [facility] Last Admin: 08/05/19 15:45 Dose: 3 ml Documented by: Albuterol/Ipratropium (Duoneb 0.5 Mg-3 Mg/3 Ml Soln) 3 ml INHALATION RT-Q2H PRN PRN Reason: Shortness Of Breath Or Wheezing Last Admin: 08/05/19 05:05 Dose: 3 ml Documented by: Atorvastatin Calcium (Lipitor) 10 mg PO HS ON LICENSE OF [facility] Last Admin: 08/04/19 20:59 Dose: 10 mg Documented by: Buspirone HCl (Buspar) 5 mg PO BID ON LICENSE OF [facility] Last Admin: 08/05/19 09:16 Dose: 5 mg Documented by: Diltiazem HCl (Cardizem Oral) 30 mg PO Q6HR ON LICENSE OF [facility] Last Admin: 08/05/19 12:03 Dose: 30 mg Documented by: Duloxetine HCl (Cymbalta) 40 mg PO DAILY ON [facility] OF [facility] Last Admin: 08/05/19 09:17 Dose: 40 mg Documented by: Furosemide (Lasix) 40 mg PO DAILY ON [facility] OF [facility] Last Admin: 08/05/19 09:16 Dose: 40 mg Documented by: Gabapentin (Neurontin) 600 mg PO DAILY ON [facility] OF [facility] Last Admin: 08/05/19 09:15 Dose: 600 mg Documented by: Hydrocortisone (Cortef) 10 mg PO BID ON LICENSE OF [facility] Last Admin: 08/05/19 09:18 Dose: 10 mg Documented by: Lidocaine (Lidoderm) 2 patch TOPICAL DAILY ON LICENSE OF [facility] Last Admin: 08/05/19 09:19 Dose: 2 patch Documented by: Melatonin (Melatonin) 5 mg PO HS ON LICENSE OF [facility] Last Admin: 08/04/19 20:59 Dose: 5 mg Documented by: Metoprolol Tartrate (Lopressor) 25 mg PO DAILY ON [facility] OF [facility] Last Admin: 08/05/19 09:16 Dose: 25 mg Documented by: Naloxone HCl (Narcan) 0.2 mg IV Q2M PRN PRN Reason: Opioid Reversal Olanzapine (Zyprexa) 20 mg PO HS ON LICENSE OF [facility] Last Admin: 08/04/19 21:00 Dose: 20 mg Documented by: Polyethylene Glycol (Miralax) 17 gm PO Q3D PRN PRN Reason: Constipation Rivaroxaban (Xarelto) 20 mg PO DAILY ON LICENSE OF [facility] Last Admin: 08/05/19 09:18 Dose: 20 mg Documented by: Physical examination: VITAL SIGNS: 98.3, 94, 16, 1 22 x 7 6, 97% room air GENERAL: Propped up in bed, appears comfortable. EYES: Pupils equal. Conjunctiva normal. HEENT: External appearance of nose and ears normal, oral cavity grossly normal. NECK: JVD unable to assess, mass not palpable. HEART: Heart sounds are distant, decreased edema LUNGS: Respiratory rate increased, diminished breath sounds. ABDOMEN: Soft, nontender, liver spleen not palpable, no masses palpable. PSYCH: Alert and oriented x3; mood and affect normal. NEUROLOGICAL: Cranial nerves grossly intact; no facial asymmetry, decreased power in both lower extremity. LYMPHATICS: No lymph nodes palpable in the axilla and neck INVESTIGATIONS, reviewed in the clinical context: White count 5.8 hemoglobin 11.1 platelets 305 potassium 4.3 bun 16 creatinine 0.77 Accu-Cheks 67, 61 Chest x-ray film personally reviewed by me-personally reviewed by me shows large right pleural effusion EKG tracing personally reviewed by me-normal sinus rhythm, poor baseline Chest CTA-bilateral pleural effusion right much greater than the left, some right-sided volume loss 2-D echocardiogram-severe concentric LVH, EF 60-65%, moderate tricuspid regurgitation Assessment: -Acute on chronic congestive heart failure from diastolic dysfunction EF 60-65%, from hypertensive heart disease -Hypertensive heart disease -Moderate tricuspid regurgitation, nontraumatic -Paroxysmal atrial fibrillation currently in sinus rhythm, chronically on 0 to -psuedo- seizures with extensive workup at [facility] in the past -Morbid obesity BMI 52.2 -Diabetes mellitus type 2 -Bipolar disorder -Medical debility line- -Bilateral pleural effusion, with large right pleural effusion status post thoracentesis on the right side Plan: Per the patient on IV Lasix. Await results of the pleural fluid. Follow with pulmonary. Care was discussed with the patient. We'll also put the patient on fluid restriction 1500 mL a day.
[2019-08-05] MEDS: FUROSEMIDE 10 MG/ML 4 ML VIAL IV SCH (18:43)
[2019-08-05 21:01] LABS: Glucose,Whole Blood 90 mg/dL (75-99)
[2019-08-05] MEDS: MELATONIN 5 MG TABLET PO SCH (22:42)
[2019-08-05] MEDS: ATORVASTATIN 10 MG TAB PO SCH (22:42)
[2019-08-05] MEDS: OLANZapine 10 MG TAB PO SCH (22:43)
[2019-08-06] MEDS: FUROSEMIDE 10 MG/ML 4 ML VIAL IV SCH ×3 (00:25→22:10)
[2019-08-06] MEDS: IPRATROPIUM-ALBUTEROL 3 ML NEB INHALATION PRN (03:47)
[2019-08-06 03:57] LABS: Glucose,Whole Blood 96 mg/dL (75-99)
[2019-08-06] MEDS: DILTIAZEM ORAL 30 MG TAB PO SCH ×3 (06:04→17:45)
[2019-08-06] MEDS: HYDROcodone/APAP 5-325MG 1 EACH TAB PO PRN ×3 (06:05→19:45)
[2019-08-06 06:58] LABS: Glucose,Whole Blood 102 mg/dL (75-99)
--- NOTE | 2019-08-06 07:39 | XR ---
EXAMINATION TYPE: XR chest 1V portable DATE OF EXAM: 08/06/2019 COMPARISON: 08/03/2019 HISTORY: Dyspnea TECHNIQUE: Single frontal view of the chest is obtained. FINDINGS: There is a questionable new widened mediastinum superiorly versus changes in technique. In comparison to the prior of 08/04/2019 this may represent changes in technique as there was density jus t superior to the mediastinum and clavicles appear no different position in this examination. Slightl y increasing moderate right pleural effusion and associated right-sided airspace disease. Multifocal left-sided atelectasis is identified. No acute osseous pathology. IMPRESSION: Apical lordotic chest x-ray is recommended to assess for density overlying the superior mediastinum creating likely artifactual superior mediastinal widening. Persistent moderate right pleu ral effusion and associated right-sided airspace disease with multifocal left basilar airspace diseas e.
[2019-08-06] MEDS: IPRATROPIUM-ALBUTEROL 3 ML NEB INHALATION SCH ×4 (07:50→20:58)
[2019-08-06 08:20] LABS: African American GFR (CKD) >90 (>60 ml/min/1.73 sqM); Blood Urea Nitrogen 26 mg/dL (9-20); Calcium 9.1 mg/dL (8.4-10.2); Chloride 89 mmol/L (98-107); Glucose 86 mg/dL (74-99); Potassium 3.2 mmol/L (3.5-5.1); Sodium 140 mmol/L (137-145)
[2019-08-06 08:28] LABS: Anion Gap 6 mmol/L
[2019-08-06 08:36] LABS: Carbon Dioxide 45 mmol/L (22-30)
[2019-08-06] MEDS: LIDOCAINE 5% PATCH TOPICAL SCH (09:14)
[2019-08-06] MEDS: HYDROCORTISONE 10 MG TAB PO SCH ×2 (09:21→22:03)
[2019-08-06] MEDS: DULoxetine HCL 20 MG CAPSULE.DR PO SCH (09:21)
[2019-08-06] MEDS: RIVAROXABAN 20 MG TAB PO SCH (09:22)
[2019-08-06] MEDS: GABAPENTIN 300 MG CAP PO SCH (09:22)
[2019-08-06] MEDS: busPIRone HCl 5 MG TAB PO SCH ×2 (09:23→22:03)
[2019-08-06] MEDS: METOPROLOL TARTRATE 25 MG TAB PO SCH (09:23)
[2019-08-06 11:43] LABS: Glucose,Whole Blood 101 mg/dL (75-99)
--- NOTE | 2019-08-06 13:19 | P.PN ---
Subjective Progress Note Date: 08/06/19 A 58-year-old morbidly obese male patient who has been bedridden and has multiple medical problems and comorbidities. He denies having any previous history of coronary artery disease. He has history of paroxysmal atrial fibrillation and his been on long-term anticoagulation. He has diabetes, hyperlipidemia and COPD as the patient is a former smoker. He has also suffered a previous CVA. He has had multiple hospitalization for complications related to C. diff colitis. Currently this issue is not active. The patient came into the hospital because of increased shortness of breath. No pleurisy. No hemoptysis. A computed tomography scan of the chest was done that showed no evidence of any pulmonary embolism. There was a large right-sided pleural effusion noted with compressive atelectasis of the right lung base. Based on this, a pulmonary consultation was requested. There was no evidence of any pulmonary embolism. There was some volume loss in the right lung base. ProBNP level was 336. Troponins were negative. The patient has chronic hypercapnic respiratory failure and a serum bicarbonate of 43. The white cell count is not elevated at 6.1. He was maintained on Xarelto on outpatient basis regarding anticoagulants. On 08/05/2019 I'm seeing this patient for a follow-up. Following the bronchoscopy the patient is some pain in his right chest and for that reason a repeat chest x-ray will be done. There was no evidence of any pneumothorax at time of the procedure. The fluid seems to be transudate based on the fluid LDH and protein levels which are on the lower side. Final fluid cytology still pending for now. On today's evaluation the patient noted some fullness in the firm lesion the right chest wall area close to his right breast and this is to be further ultrasound to make sure there is no underlying malignancy or solid lesions. His resting comfortably in bed. He is currently on oxygen 2 L per minute nasal cannula. His hemodynamic is stable. On 08/06/2019 the patient is laying comfortably in bed. No chest pain. A repeat chest x-ray was done yesterday and shows some the Coblation the right- sided pleural effusion. Fluid cytology is pending for now. He remains on Lasix 40 mg IV and the dose has been tapered as the patient has been in a significant negative fluid balance. No chest pain. No angina. No palpitation. No other new complaints otherwise for now. Awaiting pleural fluid cytology. He is on DuoNeb nebulized treatment [id number]. He is on Xarelto for long-term anticoagulants. Objective - Vital Signs Vital signs: Vital Signs Temp 98.6 F 08/06/19 07:00 Pulse 76 08/06/19 11:58 Resp 17 08/06/19 07:00 BP 117/75 08/06/19 07:00 Pulse Ox 97 08/06/19 07:00 Intake & Output 08/05/19 08/06/19 08/06/19 18:59 06:59 18:59 Intake Total 225 180 Output Total 1999 1099 Balance -0505 -920 Weight 177 kg Intake: Oral 225 180 Output: Urine 1999 1099 Other: Voiding Method Urinal # Voids 3 # Bowel Movements 2 1 - Exam GENERAL: This is a 58-year-old male in no apparent distress at the time of my examination. Morbidly obese. The patient has a BMI 52.2 Head exam was generally normal. There was no scleral icterus or corneal arcus. Mucous membranes were moist. Neck was supple and without jugular venous distension, thyromegaly, or carotid bruits. Carotids were easily palpable bilaterally. There was no adenopathy. LUNGS: Initial breath sounds bilaterally especially in the right lung along with dullness to percussion. Breath sounds are quite diminished in the right lung base. HEART: Regular rate and rhythm without murmurs, rubs or gallops. S1 and S2 heard. ABDOMEN: Soft, nontender. Bowel sounds are heard. No organomegaly noted. EXTREMITIES: Bilateral lower extremity circumferential nonpitting edema. No calf tenderness noted. VASCULAR: Radial and dorsalis pedis pulses palpated, no evidence of clubbing. NEUROLOGIC: Patient is awake, alert and oriented x3. Motor weakness is obvious in lower extremities bilaterally. Skeletal examination the patient has scars of previous surgery and chronic contractures in lower extremities bilaterally. - Labs CBC & Chem 7: 08/04/19 06:57 08/06/19 07:12 Labs: Abnormal Lab Results - Last 24 Hours (Table) 08/05/19 08/06/19 08/06/19 Range/Units 16:47 06:57 07:12 Potassium 3.2 L (3.5-5.1) mmol/L Chloride 89 L (98-107) mmol/L Carbon Dioxide 45 H* (22-30) mmol/L BUN 26 H (9-20) mg/dL POC Glucose (mg/dL) 142 H 102 H (75-99) mg/dL 08/06/19 Range/Units 11:41 Potassium (3.5-5.1) mmol/L Chloride (98-107) mmol/L Carbon Dioxide (22-30) mmol/L BUN (9-20) mg/dL POC Glucose (mg/dL) 101 H (75-99) mg/dL Microbiology - Last 24 Hours (Table) 08/04/19 15:50 Gram Stain - Preliminary Pleural Fluid Body Fluid Culture - Preliminary Assessment and Plan Plan: 1 acute on chronic shortness of breath, the decompensating fact there is development of a large right-sided pleural effusion with compressive atelectasis of the right lung base that needs to be further investigated. The patient underwent a thoracentesis yesterday and the pleural fluid is likely a transudate. Repeat chest x-ray will be done today. Fluid cytology still pending for now. 2 large right-sided pleural effusion, etiology is not clear. Awaiting fluid cytology. The fluid itself is probably a transudate. 3 morbid obesity with a BMI of 52.2, the patient is post gastric sleeve procedure for morbid obesity 4 obstructive sleep apnea. 5 history of DVT and pulmonary embolism maintained on Xarelto 6 paroxysmal atrial fibrillation 7 diabetes mellitus 8 COPD 9 hyperlipidemia 10 osteoarthritis/scoliosis of the spine/chronic difficulties mobility related to multiple orthopedic surgeries and morbid obesity. The patient has had surgeries on his ankles, knees, back and hip. 11 previous history of C. diff colitis 12 chronic difficulty with mobility and gait and the patient is bedridden 13 generalized weakness 14 chronic pain 15 history of depression/bipolar disorder 16 history of pseudoseizures Plan Chest x-ray shows some recuperation the right-sided pleural effusion. No need for any repeat thoracentesis. Continue diuretics. Reduce Down the Lasix to 40 Mg Every 12 Hours. Awaiting Pleural Fluid Cytology.
[2019-08-06 16:37] LABS: Glucose,Whole Blood 92 mg/dL (75-99)
--- NOTE | 2019-08-06 20:48 | P.PN ---
Progress Note - Text Progress Note Date: 08/06/19 Interval history: This is a 58-year-old patient who follows with visiting physician Dr. Antelmo Steele. Patient has a rather extensive medical history. Patient presented increasing shortness of breath chest tightness for about a week. Also increasing lower extremity edema for the same period. Slight cough. Did bring up some mucus today. Appetite is gone down. Bowels are okay. No change in urination. Patient has not really walked since January of this year. Has a hospital bed at home. Denies any fever and chills. Diastolic CHF, atrial fibrillation, pseudoseizures with extensive work up including congestive EEG monitoring done at [facility] recently, morbid obesity, sleep gastrectomy, COPD, diabetes mellitus, anxiety, depression, bipolar disorder. Patient recently positive for C. diff.That failed vancomycin taper and was treated with Dificid. Patient's at home with his son. Admitted with CHF exacerbation. Large right pleural effusion-9 50 mL of thoracentesis Today-doing well. Eating all his meals. Edema was gone down. Was on IV Lasix. Review of systems: Was done for constitutional, cardiovascular, GI, pulmonary. relevant finding as above Active Medications Hydrocodone Bitart/Acetaminophen ([place] 5-325) 1 each PO Q6H PRN PRN Reason: Pain Last Admin: 08/06/19 19:45 Dose: 1 each Documented by: Albuterol/Ipratropium (Duoneb 0.5 Mg-3 Mg/3 Ml Soln) 3 ml INHALATION RT-QID [facility] Last Admin: 08/06/19 16:35 Dose: 3 ml Documented by: Albuterol/Ipratropium (Duoneb 0.5 Mg-3 Mg/3 Ml Soln) 3 ml INHALATION RT-Q2H PRN PRN Reason: Shortness Of Breath Or Wheezing Last Admin: 08/06/19 03:47 Dose: 3 ml Documented by: Atorvastatin Calcium (Lipitor) 10 mg PO HS [facility] Last Admin: 08/05/19 22:42 Dose: 10 mg Documented by: Buspirone HCl (Buspar) 5 mg PO BID [facility] Last Admin: 08/06/19 09:23 Dose: 5 mg Documented by: Diltiazem HCl (Cardizem Oral) 30 mg PO Q6HR [facility] Last Admin: 08/06/19 17:45 Dose: 30 mg Documented by: Duloxetine HCl (Cymbalta) 40 mg PO DAILY [facility] Last Admin: 08/06/19 09:21 Dose: 40 mg Documented by: Furosemide (Lasix) 40 mg IV Q12HR [facility] Gabapentin (Neurontin) 600 mg PO DAILY [facility] Last Admin: 08/06/19 09:22 Dose: 600 mg Documented by: Hydrocortisone (Cortef) 10 mg PO BID [facility] Last Admin: 08/06/19 09:21 Dose: 10 mg Documented by: Lidocaine (Lidoderm) 2 patch TOPICAL DAILY [facility] Last Admin: 08/06/19 09:14 Dose: 2 patch Documented by: Melatonin (Melatonin) 5 mg PO [facility] Last Admin: 08/05/19 22:42 Dose: 5 mg Documented by: Metoprolol Tartrate (Lopressor) 25 mg PO DAILY [facility] Last Admin: 08/06/19 09:23 Dose: 25 mg Documented by: Naloxone HCl (Narcan) 0.2 mg IV Q2M PRN PRN Reason: Opioid Reversal Olanzapine (Zyprexa) 20 mg PO [facility] Last Admin: 08/05/19 22:43 Dose: 20 mg Documented by: Polyethylene Glycol (Miralax) 17 gm PO Q3D PRN PRN Reason: Constipation Rivaroxaban (Xarelto) 20 mg PO DAILY [facility] Last Admin: 08/06/19 09:22 Dose: 20 mg Documented by: Physical examination: VITAL SIGNS: 97.6, 72, 16, 114 bun 90, 97% at 3 L GENERAL: Laying in bed, comfortable EYES: Pupils equal. Conjunctiva normal. HEENT: External appearance of nose and ears normal, oral cavity grossly normal. NECK: JVD unable to assess, mass not palpable. HEART: Heart sounds are distant, edema much improved LUNGS: Respiratory rate normal, diminished breath sounds. ABDOMEN: Soft, nontender, liver spleen not palpable, no masses palpable. PSYCH: Alert and oriented x3; mood and affect normal. NEUROLOGICAL: Cranial nerves grossly intact; no facial asymmetry, decreased power in both lower extremity. INVESTIGATIONS, reviewed in the clinical context: Potassium 3.2 bun 26 creatinine 0.90 Accu-Cheks 101, 92 ProBNP 246 Previous testing Chest x-ray film personally reviewed by me-personally reviewed by me shows large right pleural effusion EKG tracing personally reviewed by me-normal sinus rhythm, poor baseline Chest CTA-bilateral pleural effusion right much greater than the left, some right-sided volume loss 2-D echocardiogram-severe concentric LVH, EF 60-65%, moderate tricuspid regurgitation Assessment: -Acute on chronic congestive heart failure from diastolic dysfunction EF 60-65%, from hypertensive heart disease -Hypertensive heart disease -Moderate tricuspid regurgitation, nontraumatic -Paroxysmal atrial fibrillation currently in sinus rhythm, chronically on 0 to -psuedo- seizures with extensive workup at [facility] in the past -Morbid obesity BMI 52.2 -Diabetes mellitus type 2 -Bipolar disorder -Medical debility line- -Bilateral pleural effusion, with large right pleural effusion status post thoracentesis on the right side Plan: IV Lasix decreased. Discussed with Dr. Hendrickson. Should be able to be discharged tomorrow. Fluid cytology pending.
[2019-08-06] MEDS: MELATONIN 5 MG TABLET PO SCH (22:03)
[2019-08-06] MEDS: OLANZapine 10 MG TAB PO SCH (22:04)
[2019-08-06 22:31] LABS: Glucose,Whole Blood 116 mg/dL (75-99)
[2019-08-07] MEDS: DILTIAZEM ORAL 30 MG TAB PO SCH ×4 (00:39→17:35)
[2019-08-07 03:17] VITALS: RESP 18
[2019-08-07] MEDS: HYDROcodone/APAP 5-325MG 1 EACH TAB PO PRN ×2 (06:16→12:41)
[2019-08-07 07:21] LABS: Glucose,Whole Blood 81 mg/dL (75-99)
[2019-08-07 07:27] LABS: African American GFR (CKD) >90 (>60 ml/min/1.73 sqM); Blood Urea Nitrogen 27 mg/dL (9-20); Calcium 9.1 mg/dL (8.4-10.2); Chloride 86 mmol/L (98-107); Glucose 87 mg/dL (74-99); Potassium 3.4 mmol/L (3.5-5.1); Sodium 138 mmol/L (137-145)
[2019-08-07 07:34] LABS: Anion Gap 7 mmol/L
[2019-08-07 07:36] LABS: Carbon Dioxide 45 mmol/L (22-30)
--- NOTE | 2019-08-07 08:17 | USB ---
Reason for exam: clinical finding. US Breast Limited RT Right limited breast ultrasound including focal area of concern, retroareolar and axilla demonstrates no cystic or solid lesion seen. ASSESSMENT: Negative, BI-RAD 1 RECOMMENDATION: Clinical management of the right breast. Manage patient on a clinical basis.
[2019-08-07] MEDS: IPRATROPIUM-ALBUTEROL 3 ML NEB INHALATION SCH ×3 (08:36→16:12)
[2019-08-07] MEDS: HYDROCORTISONE 10 MG TAB PO SCH (09:19)
[2019-08-07] MEDS: GABAPENTIN 300 MG CAP PO SCH (09:19)
[2019-08-07] MEDS: METOPROLOL TARTRATE 25 MG TAB PO SCH ×3 (09:19→09:29)
[2019-08-07] MEDS: FUROSEMIDE 10 MG/ML 4 ML VIAL IV SCH (09:19)
[2019-08-07] MEDS: DULoxetine HCL 20 MG CAPSULE.DR PO SCH (09:20)
[2019-08-07] MEDS: busPIRone HCl 5 MG TAB PO SCH (09:20)
[2019-08-07] MEDS: RIVAROXABAN 20 MG TAB PO SCH (09:20)
--- NOTE | 2019-08-07 10:08 | XR ---
EXAMINATION TYPE: XR chest 1V portable DATE OF EXAM: 08/07/2019 HISTORY: Shortness of breath. COMPARISON: 08/06/2019 TECHNIQUE: Single view of the chest is submitted. FINDINGS: Demonstrated are scattered senescent parenchymal change. Essentially stable Right basilar pleural effusion and basilar atelectasis. The heart is stable. Hilar and mediastinal structures are within normal limits. Degenerative changes are seen of the dorsal spine. IMPRESSION: 1. Essentially stable Right basilar pleural effusion and basilar atelectasis.
[2019-08-07] MEDS: LIDOCAINE 5% PATCH TOPICAL SCH (10:25)
[2019-08-07 10:37] LABS: Glucose,Whole Blood 74 mg/dL (75-99)
[2019-08-07 11:13] LABS: Glucose,Whole Blood 103 mg/dL (75-99)
--- NOTE | 2019-08-07 13:11 | P.PN ---
Subjective Progress Note Date: 08/07/19 Principal diagnosis: Acute on chronic shortness of breath, with a large right-sided pleural effusion with compressive atelectasis status post right-sided thoracentesis A 58-year-old morbidly obese male patient who has been bedridden and has multiple medical problems and comorbidities. He denies having any previous history of coronary artery disease. He has history of paroxysmal atrial fibrillation and his been on long-term anticoagulation. He has diabetes, hyperlipidemia and COPD as the patient is a former smoker. He has also suffered a previous CVA. He has had multiple hospitalization for complications related to C. diff colitis. Currently this issue is not active. The patient came into the hospital because of increased shortness of breath. No pleurisy. No he moptysis. A computed tomography scan of the chest was done that showed no evidence of any pulmonary embolism. There was a large right-sided pleural effusion noted with compressive atelectasis of the right lung base. Based on this, a pulmonary consultation was requested. There was no evidence of any pulmonary embolism. There was some volume loss in the right lung base. ProBNP level was 336. Troponins were negative. The patient has chronic hypercapnic respiratory failure and a serum bicarbonate of 43. The white cell count is not elevated at 6.1. He was maintained on Xarelto on outpatient basis regarding anticoagulants. On 08/05/2019 I'm seeing this patient for a follow-up. Following the bronchoscopy the patient is some pain in his right chest and for that reason a repeat chest x-ray will be done. There was no evidence of any pneumothorax at time of the procedure. The fluid seems to be transudate based on the fluid LDH and protein levels which are on the lower side. Final fluid cytology still pending for now. On today's evaluation the patient noted some fullness in the firm lesion the right chest wall area close to his right breast and this is to be further ultrasound to make sure there is no underlying malignancy or solid lesions. His resting comfortably in bed. He is currently on oxygen 2 L per minute nasal cannula. His hemodynamic is stable. On 08/06/2019 the patient is laying comfortably in bed. No chest pain. A repeat chest x-ray was done yesterday and shows some the Coblation the right- sided pleural effusion. Fluid cytology is pending for now. He remains on Lasix 40 mg IV and the dose has been tapered as the patient has been in a significant negative fluid balance. No chest pain. No angina. No palpitation. No other new complaints otherwise for now. Awaiting pleural fluid cytology. He is on DuoNeb nebulized treatment [id number]. He is on Xarelto for long-term anticoagulants. On 08/07/2019 patient seen in follow-up on medical surgical floor. He is awake and alert, in no acute distress, his lungs are essentially clear to au scultation, today's chest x-ray shows right basilar pleural effusion and basilar atelectasis. Stable in appearance, and denies any chest pain. He remains on 3 L of oxygen and the pulse ox of 97%, afebrile, pleural fluid cultures are negative thus far. Total fluid analysis showed transudative fluid. Cytology is pending. Patient's IV Lasix has been transitioned to oral Lasix, patient has developed worsening metabolic alkalosis likely related to diuretics. Hemodynamically stable, no complaints of chest pain, no fever or chills. Objective - Vital Signs Vital signs: Vital Signs Temp 97.6 F 08/07/19 08:57 Pulse 80 08/07/19 12:00 Resp 18 08/07/19 08:57 BP 152/66 08/07/19 08:57 Pulse Ox 97 08/07/19 08:57 Intake & Output 08/06/19 08/07/19 08/07/19 18:59 06:59 18:59 Intake Total 540 180 180 Output Total 1100 1400 500 Balance -560 -1220 -320 Intake: Oral 540 180 180 Output: Urine 1100 1400 500 Other: Voiding Method Urinal Urinal # Bowel Movements 1 1 - Exam GENERAL EXAM: Alert, 58-year-old obese white male on 3 L of oxygen with a pulse ox of 97% comfortable in no apparent distress. HEAD: Normocephalic/atraumatic. EYES: Normal reaction of pupils, equal size. Conjunctiva pink, sclera white. NOSE: Clear with pink turbinates. THROAT: No erythema or exudates. NECK: No masses, no JVD, no thyroid enlargement, no adenopathy. CHEST: No chest wall deformity. Symmetrical expansion. LUNGS: Equal air entry with no crackles, wheeze, rhonchi or dullness. CVS: Regular rate and rhythm, normal S1 and S2, no gallops, no murmurs, no rubs ABDOMEN: Soft, nontender. No hepatosplenomegaly, normal bowel sounds, no guarding or rigidity. EXTREMITIES: No clubbing, improving lower extremity edema, no cyanosis, 2+ pulses and upper and lower extremities. MUSCULOSKELETAL: Muscle strength and tone normal. SPINE: No scoliosis or deformity SKIN: No rashes CENTRAL NERVOUS SYSTEM: Alert and oriented -3. No focal deficits, tone is normal in all 4 extremities. PSYCHIATRIC: Alert and oriented -3. Appropriate affect. Intact judgment and insight. - Labs CBC & Chem 7: 08/04/19 06:57 08/07/19 06:27 Labs: Abnormal Lab Results - Last 24 Hours (Table) 08/06/19 08/07/19 08/07/19 Range/Units 22:17 06:27 10:25 Potassium 3.4 L (3.5-5.1) mmol/L Chloride 86 L (98-107) mmol/L Carbon Dioxide 45 H* (22-30) mmol/L BUN 27 H (9-20) mg/dL POC Glucose (mg/dL) 116 H 74 L (75-99) mg/dL 08/07/19 Range/Units 11:03 Potassium (3.5-5.1) mmol/L Chloride (98-107) mmol/L Carbon Dioxide (22-30) mmol/L BUN (9-20) mg/dL POC Glucose (mg/dL) 103 H (75-99) mg/dL Microbiology - Last 24 Hours (Table) 08/04/19 15:50 Anaerobic Culture - Preliminary Pleural Fluid 08/04/19 15:50 Gram Stain - Preliminary Pleural Fluid Body Fluid Culture - Preliminary Assessment and Plan Plan: Assessment: 1 acute on chronic shortness of breath, the decompensating fact there is development of a large right-sided pleural effusion with compressive atelectasis of the right lung base that needs to be further investigated. The patient underwent a thoracentesis yesterday and the pleural fluid is likely a transudate. Repeat chest x-ray will be done today. Fluid cytology still pending for now. 2 large right-sided pleural effusion, etiology is not clear. Awaiting fluid cytology. The fluid itself is probably a transudate. 3 morbid obesity with a BMI of 52.2, the patient is post gastric sleeve procedure for morbid obesity 4 obstructive sleep apnea. 5 history of DVT and pulmonary embolism maintained on Xarelto 6 paroxysmal atrial fibrillation 7 diabetes mellitus 8 COPD 9 hyperlipidemia 10 osteoarthritis/scoliosis of the spine/chronic difficulties mobility related to multiple orthopedic surgeries and morbid obesity. The patient has had surgeries on his ankles, knees, back and hip. 11 previous history of C. diff colitis 12 chronic difficulty with mobility and gait and the patient is bedridden 13 generalized weakness 14 chronic pain 15 history of depression/bipolar disorder 16 history of pseudoseizures Plan: Repeat chest x-ray was reviewed and shows essentially stable findings of right basilar pleural effusion and basilar atelectasis. Patient has been transitioned to oral Lasix, denies any worsening dyspnea, he is maintaining stable oxygenation on 3 L. No fever or chills, pleural fluid cultures are negative thus far, cytology is pending. Would continue oral diuretics, oral anticoagulation for paroxysmal A. fib. From pulmonary perspective patient could be considered for discharge home today, with the follow-up by the visiting physicians and visiting nursing service. I performed a history & physical examination of the patient and discussed their management with my nurse practitioner, Sophia Martinez. I reviewed the nurse practitioner's note and agree with the documented findings and plan of care. Lung sounds are positive for clear breath sounds. The findings and the impression was discussed with the patient. I attest to the documentation by the nurse practitioner. Time with Patient: Less than 30
[2019-08-07 16:03] VITALS: BP 124/70; TEMP 98.2
[2019-08-07 16:24] VITALS: PULSE 102
[2019-08-07 17:05] LABS: Glucose,Whole Blood 91 mg/dL (75-99)
[2019-08-08] MEDS ORDERED: FUROSEMIDE 40 MG TAB PO SCH (09:00)
--- NOTE | 2019-08-11 10:15 | P.DS ---
Providers Date of admission: 08/05/19 14:37 Expected date of discharge: 08/07/19 Attending physician: Roge Bashir Consults: 08/03/19 15:34 Consult Physician Urgent Consulting Provider: [facility] Consult Reason/Comments: acute chest pain, AECHF Do you want consulting provider notified?: Yes 08/03/19 15:38 Consult Physician Urgent Consulting Provider: Ynes Hendrickson Consult Reason/Comments: AECOPD Do you want consulting provider notified?: Yes 08/06/19 16:03 Consult Physician Routine Consulting Provider: Fili Yeager Consult Reason/Comments: clip toe nails onchomycosis Do you want consulting provider notified?: Yes Primary care physician: [facility] Hospital Course: Hospital course: This is a 58-year-old patient who follows with visiting physician Dr. Antelmo Steele. Patient has a rather extensive medical history. Patient presented increasing shortness of breath chest tightness for about a week. Also increasing lower extremity edema for the same period. Slight cough. Did bring up some mucus today. Appetite is gone down. Bowels are okay. No change in urination. Patient has not really walked since January of this year. Has a hos pital bed at home. Denies any fever and chills. Diastolic CHF, atrial fibrillation, pseudoseizures with extensive work up including continues EEG monitoring done at [facility] recently, morbid obesity, sleep gastrectomy, COPD, diabetes mellitus, anxiety, depression, bipolar disorder. Patient recently positive for C. diff.That failed vancomycin taper was done and was treated with Dificid. Patient's at home with his son. Admitted with CHF exacerbation. Large right pleural effusion-9 50 mL of thoracentesis. Doing much better. Given IV Lasix. Put out good amount of fluids. Patient counseled about fluid restriction. Discussed with pulmonary. Okay to be discharged. Discussed with the patient.. Consultation: Dr. ASHLIE Fernández from cardiology Dr. Hendrickson from pulmonary Physical examination: VITAL SIGNS: 98.2, 100, 18, 124/70, 99% on 3 L GENERAL: Laying in bed, comfortable EYES: Pupils equal. Conjunctiva normal. HEENT: External appearance of nose and ears normal, oral cavity grossly normal. NECK: JVD unable to assess, mass not palpable. HEART: Heart sounds are distant, edema much improved LUNGS: Respiratory rate normal, diminished breath sounds. ABDOMEN: Soft, nontender, liver spleen not palpable, no masses palpable. PSYCH: Alert and oriented x3; mood and affect normal. NEUROLOGICAL: Cranial nerves grossly intact; no facial asymmetry, decreased power in both lower extremity. INVESTIGATIONS, reviewed in the clinical context: Bun 27 creatinine 0.84 Previous testing Chest x-ray film personally reviewed by me-personally reviewed by me shows large right pleural effusion EKG tracing personally reviewed by me-normal sinus rhythm, poor baseline Chest CTA-bilateral pleural effusion right much greater than the left, some right-sided volume loss 2-D echocardiogram-severe concentric LVH, EF 60-65%, moderate tricuspid regurgitation Discharge diagnoses: -Acute on chronic congestive heart failure exacerbation from diastolic dysfunction EF 60-65%, from hypertensive heart disease -Hypertensive heart disease -Moderate tricuspid regurgitation, nontraumatic -Paroxysmal atrial fibrillation currently in sinus rhythm, chronically on 0 to -psuedo- seizures with extensive workup at [facility] in the past -Morbid obesity BMI 52.2 -Diabetes mellitus type 2 -Bipolar disorder -Medical debility line- -Bilateral pleural effusion, with large right pleural effusion status post thoracentesis on the right side Disposition: Home Patient Condition at Discharge: Stable Plan - Discharge Summary Discharge Rx Participant: No New Discharge Prescriptions: New Potassium Chloride ER [K-Dur 20] 20 meq PO DAILY #30 tab Continue OLANZapine [ZyPREXA] 20 mg PO HS Rivaroxaban [Xarelto] 20 mg PO DAILY HYDROcodone/APAP 5-325MG [Victor 5-325] 1 tab PO Q6H PRN PRN Reason: Pain Gabapentin [Neurontin] 600 mg PO DAILY busPIRone HCl [Buspar] 5 mg PO BID Diltiazem HCl 30 mg PO Q6H DULoxetine HCL [Cymbalta] 40 mg PO DAILY Atorvastatin [Lipitor] 10 mg PO HS Ergocalciferol (Vitamin D2) [Vitamin D2] 50,000 unit PO WE Lidocaine 5% Patch [Lidoderm 5% Patch] 1 patch TOPICAL DAILY Hydrocortisone [Cortef] 10 mg PO BID Albuterol Inhaler [Ventolin Hfa Inhaler] 1 - 2 puff INHALATION RT-Q6H PRN PRN Reason: Shortness Of Breath Tiotropium 18 Mcg/Puff [Spiriva] 1 puff INHALATION RT-DAILY Melatonin 5 mg PO HS Aspirin EC [Ecotrin Low Dose] 81 mg PO DAILY Polyethylene Glycol 3350 [Miralax] 17 gm PO Q3D PRN PRN Reason: Constipation Changed Furosemide [Lasix] 40 mg PO BID #60 Discontinued Furosemide [Lasix] 80 mg PO Q7D Discharge Medication List OLANZapine [ZyPREXA] 20 mg PO HS 03/18/19 [History] Gabapentin [Neurontin] 600 mg PO DAILY 07/14/19 [History] HYDROcodone/APAP 5-325MG [Victor 5-325] 1 tab PO Q6H PRN 07/14/19 [History] Rivaroxaban [Xarelto] 20 mg PO DAILY 07/14/19 [History] DULoxetine HCL [Cymbalta] 40 mg PO DAILY 07/15/19 [History] Diltiazem HCl 30 mg PO Q6H 07/15/19 [History] busPIRone HCl [Buspar] 5 mg PO BID 07/15/19 [History] Albuterol Inhaler [Ventolin Hfa Inhaler] 1 - 2 puff INHALATION RT-Q6H PRN 08/03/19 [History] Aspirin EC [Ecotrin Low Dose] 81 mg PO DAILY 08/03/19 [History] Atorvastatin [Lipitor] 10 mg PO HS 08/03/19 [History] Ergocalciferol (Vitamin D2) [Vitamin D2] 50,000 unit PO WE 08/03/19 [History] Hydrocortisone [Cortef] 10 mg PO BID 08/03/19 [History] Lidocaine 5% Patch [Lidoderm 5% Patch] 1 patch TOPICAL DAILY 08/03/19 [History] Melatonin 5 mg PO HS 08/03/19 [History] Polyethylene Glycol 3350 [Miralax] 17 gm PO Q3D PRN 08/03/19 [History] Tiotropium 18 Mcg/Puff [Spiriva] 1 puff INHALATION RT-DAILY 08/03/19 [History] Furosemide [Lasix] 40 mg PO BID #60 08/07/19 [Rx] Potassium Chloride ER [K-Dur 20] 20 meq PO DAILY #30 tab 08/07/19 [Rx] Follow up Appointment(s)/Referral(s): [facility], [NON-STAFF] - Hugo Bailey MD [Primary Care Provider] - 08/08/19 (office will call in morning with appointment time) Fili Yeager DPM [STAFF PHYSICIAN] - 08/16/19 10:00 am Discharge Disposition: HOME WITH HOME HEALTH SERVICES
== END 2019-08-07 18:56 | disposition home health service (06) | DRG 291 ==
LOC: EC 10:53 → 4SSUR 14:49 → OBSVTOIN 08-05 14:37
PROVIDERS: ADMIT Hospitalist; ATTEND Hospitalist
PROC: 0W993ZX Drainage of Right Pleural Cavity, Percutaneous Approach, Diagnostic (ICD-10-PCS; principal; 2019-08-04)
DX: I13.0 Hypertensive heart and chronic kidney disease with heart failure and stage 1 through stage 4 chronic kidney disease, or unspecified chronic kidney disease (principal); I50.33 Acute on chronic diastolic (congestive) heart failure; J44.1 Chronic obstructive pulmonary disease with (acute) exacerbation; Z68.43 Body mass index [BMI] 50.0-59.9, adult; J91.8 Pleural effusion in other conditions classified elsewhere; J96.12 Chronic respiratory failure with hypercapnia; J98.11 Atelectasis; E87.4 Mixed disorder of acid-base balance; E11.22 Type 2 diabetes mellitus with diabetic chronic kidney disease; E66.01 Morbid (severe) obesity due to excess calories; I07.1 Rheumatic tricuspid insufficiency; M41.9 Scoliosis, unspecified; F44.5 Conversion disorder with seizures or convulsions; E11.649 Type 2 diabetes mellitus with hypoglycemia without coma; N18.3 Chronic kidney disease, stage 3 (moderate); I48.0 Paroxysmal atrial fibrillation; I45.10 Unspecified right bundle-branch block; G89.29 Other chronic pain; K21.9 Gastro-esophageal reflux disease without esophagitis; E78.5 Hyperlipidemia, unspecified; M19.90 Unspecified osteoarthritis, unspecified site; G47.33 Obstructive sleep apnea (adult) (pediatric); K44.9 Diaphragmatic hernia without obstruction or gangrene; T50.2X5A Adverse effect of carbonic-anhydrase inhibitors, benzothiadiazides and other diuretics, initial encounter; R26.9 Unspecified abnormalities of gait and mobility; F32.9 Major depressive disorder, single episode, unspecified; F41.0 Panic disorder [episodic paroxysmal anxiety]; F10.11 Alcohol abuse, in remission; Z99.81 Dependence on supplemental oxygen; Z79.82 Long term (current) use of aspirin; Z79.01 Long term (current) use of anticoagulants; Z79.52 Long term (current) use of systemic steroids; Z79.899 Other long term (current) drug therapy; Z71.3 Dietary counseling and surveillance; Z87.891 Personal history of nicotine dependence; Z86.711 Personal history of pulmonary embolism; Z86.73 Personal history of transient ischemic attack (TIA), and cerebral infarction without residual deficits; Z86.718 Personal history of other venous thrombosis and embolism; Z99.89 Dependence on other enabling machines and devices; Z85.828 Personal history of other malignant neoplasm of skin; Z86.14 Personal history of Methicillin resistant Staphylococcus aureus infection; Z90.49 Acquired absence of other specified parts of digestive tract; Z98.84 Bariatric surgery status; Z96.641 Presence of right artificial hip joint; Z74.01 Bed confinement status; Z86.19 Personal history of other infectious and parasitic diseases; Z98.890 Other specified postprocedural states; Z88.1 Allergy status to other antibiotic agents; Z88.5 Allergy status to narcotic agent; Z88.8 Allergy status to other drugs, medicaments and biological substances; Z80.1 Family history of malignant neoplasm of trachea, bronchus and lung
CPT/HCPCS: 36415; 71045; 71046; 71275; 80048; 80053; 82945; 83615; 83880; 84157; 84484; 85025; 85379; 85610; 85730; 87070; 87075; 87102; 87116; 87205; 87206; 87252; 87324; 87496; 87498; 87502; 87529; 87634; 87798; 89050; 93005; 93306; 94640; 94760; 96374; 96375; 99285

== ENCOUNTER 2019-08-15 20:25 | Inpatient (IN) | payer MEDICARE, BC ==
--- NOTE | 2019-08-15 21:44 | ED ---
SOB HPI - General Chief Complaint: Shortness of Breath Stated Complaint: sent by dr Mccauley Seen by Provider: 08/15/19 21:06 Source: patient, EMS Mode of arrival: EMS Limitations: physical limitation - History of Present Illness Initial Comments: This patient is a 58-year-old man who presents to be evaluated for right-sided chest pain. He states that it had started early today. The patient indicates the right lower chest. He states that it feels like someone is reaching up under his rib. Patient states the pain is constant and moderate intensity. He he called his visiting nurse who did come and see him and then referred him to the emergency department. Patient denies associated symptoms. When questioned about leg pain or swelling, he states that his legs have actually decreased and there is no pain. There is no fever or chills. No change in chronic cough. MD Complaint: shortness of breath, chest pain Onset/Timin -: days(s) Severity: moderate Quality: other (Like someone's reaching up under my rib) Consistency: constant Improves With: nothing Worsens With: nothing Associated Symptoms: denies other symptoms Treatments Prior to Arrival: none - Related Data Home Medications Medication Instructions Recorded Confirmed OLANZapine [ZyPREXA] 20 mg PO HS 03/18/19 08/15/19 Gabapentin [Neurontin] 600 mg PO DAILY 07/14/19 08/15/19 HYDROcodone/APAP 5-325MG [[place] 1 tab PO Q6H PRN 07/14/19 08/15/19 5-325] Rivaroxaban [Xarelto] 20 mg PO DAILY 07/14/19 08/15/19 DULoxetine HCL [Cymbalta] 40 mg PO DAILY 07/15/19 08/15/19 Diltiazem HCl 30 mg PO Q6H 07/15/19 08/15/19 busPIRone HCl [Buspar] 5 mg PO BID 07/15/19 08/15/19 Albuterol Inhaler [Ventolin Hfa 2 puff INHALATION RT-Q6H PRN 08/03/19 08/15/19 Inhaler] Aspirin EC [Ecotrin Low Dose] 81 mg PO DAILY 08/03/19 08/15/19 Atorvastatin [Lipitor] 10 mg PO HS 08/03/19 08/15/19 Ergocalciferol (Vitamin D2) 50,000 unit PO WE 08/03/19 08/15/19 [Vitamin D2] Hydrocortisone [Cortef] 10 mg PO BID 08/03/19 08/15/19 Lidocaine 5% Patch [Lidoderm 5% 1 patch TOPICAL DAILY 08/03/19 08/15/19 Patch] Melatonin 5 mg PO HS 08/03/19 08/15/19 Tiotropium 18 Mcg/Puff [Spiriva] 1 puff INHALATION RT-DAILY 08/03/19 08/15/19 Previous Rx's Medication Instructions Recorded Furosemide [Lasix] 40 mg PO BID #60 08/07/19 Potassium Chloride ER [K-Dur 20] 20 meq PO DAILY #30 tab 08/07/19 Allergies Allergy/AdvReac Type Severity Reaction Status Date / Time codeine Allergy Severe Swelling Verified 08/15/19 20:58 OF THROAT WITH COUGH SYRUP chlorpheniramine Allergy Unknown Verified 08/15/19 20:58 febuxostat [From Uloric] Allergy Unknown Verified 08/15/19 20:58 phenylephrine Allergy Unknown Verified 08/15/19 20:58 piperacillin sodium Allergy Unknown Verified 08/15/19 20:58 [From Zosyn] tazobactam sodium Allergy Unknown Verified 08/15/19 20:58 [From Zosyn] Review of Systems ROS Statement: Those systems with pertinent positive or pertinent negative responses have been documented in the HPI. ROS Other: All systems not noted in ROS Statement are negative. Constitutional: Denies: fever, chills Respiratory: Reports: as per HPI, cough (Chronic), dyspnea (Mild). Denies: wheezes, hemoptysis Cardiovascular: Reports: as per HPI, chest pain, edema (Decreased). Denies: palpitations, orthopnea, syncope Gastrointestinal: Denies: abdominal pain, nausea, vomiting Genitourinary: Denies: dysuria, hematuria Musculoskeletal: Denies: back pain Skin: Denies: rash Neurological: Denies: headache, weakness, numbness Past Medical History Past Medical History: Asthma, Cancer, COPD, CVA/TIA, Diabetes Mellitus, Deep Vein Thrombosis (DVT), GERD/Reflux, GI Bleed, Hyperlipidemia, Osteoarthritis (OA), Pneumonia, Pulmonary Embolus (PE), Renal Disease, Sleep Apnea/CPAP/BIPAP Additional Past Medical History / Comment(s): HYPOGLYCEMIA. NO C-PAP. DDD, SCOLIOSIS OF SPINE, SLEEPS IN RECLINER. HAVING . HX OF SKIN CANCER , Hiatal Hernia. Irregular HR in the past. DVT IN LEG, WENT TO LUNG - AFTER HIP SURG. BLOOD IN STOOL,RENAL DISEASE-STAGE 3," RETAINS FLUIDS " History of Any Multi-Drug Resistant Organisms: MRSA Date of last positivie culture/infection: AUG 2014 MDRO Source:: NASAL Past Surgical History: Appendectomy, Bariatric Surgery, Heart Catheterization, Hernia Repair, Joint Replacement, Orthopedic Surgery Additional Past Surgical History / Comment(s): RT ELBOW SURG X2, TOTAL RT HIP,ARTHROSCOPIC LT KNEE X2, RT ANKLE RECONSTRUCTIVE SURG, JANUARY 2014 GASTRIC SLEEVE, COLONOSCOPY'S. Basal Cell CA Face, Back. LT ING HERNIA Past Anesthesia/Blood Transfusion Reactions: Previous Problems w/ Anesthesia Additional Past Anesthesia/Blood Transfusion Reaction / Comment(s): STATES HE WAS TOLD HE WAS A DIFFICULT INTUBATION WITH GASTRIC SLEEVE SURGERY, Past Psychological History: Anxiety, Depression, Panic Disorder, Schizoaffective Disorder Smoking Status: Former smoker Past Alcohol Use History: None Reported Past Drug Use History: IV Drug Use - Past Family History Father Family Medical History: Cancer Additional Family Medical History / Comment(s): LUNG CA General Exam Limitations: physical limitation General appearance: alert, in no apparent distress Head exam: Present: atraumatic, normocephalic Eye exam: Present: normal appearance. Absent: scleral icterus, conjunctival injection ENT exam: Present: normal oropharynx Neck exam: Present: normal inspection Respiratory exam: Present: normal lung sounds bilaterally. Absent: respiratory distress, wheezes, rales, rhonchi, stridor, chest wall tenderness Cardiovascular Exam: Present: regular rate, normal rhythm, normal heart sounds. Absent: systolic murmur, diastolic murmur, rubs, gallop GI/Abdominal exam: Present: soft. Absent: distended, tenderness, guarding, rebound, rigid, mass Extremities exam: Present: normal capillary refill, pedal edema (There has bilateral pitting edema above the ankles bilaterally). Absent: tenderness, calf tenderness Back exam: Present: normal inspection. Absent: CVA tenderness (R), CVA tenderness (L) Neurological exam: Present: alert Skin exam: Present: warm, dry, intact, normal color. Absent: rash Course Vital Signs 08/15/19 08/15/19 08/15/19 20:27 22:00 22:32 Temperature 97.5 F L Pulse Rate 87 83 Respiratory 20 20 Rate Blood Pressure 130/88 126/69 O2 Sat by Pulse 97 98 Oximetry 08/15/19 08/16/19 08/16/19 23:00 00:00 01:00 Temperature Pulse Rate 82 83 80 Respiratory 19 Rate Blood Pressure 124/73 139/79 136/81 O2 Sat by Pulse 98 96 98 Oximetry 08/16/19 02:00 Temperature Pulse Rate 81 Respiratory 20 Rate Blood Pressure 131/80 O2 Sat by Pulse 98 Oximetry Medical Decision Making - Lab Data Result diagrams: 08/15/19 23:55 08/15/19 23:55 Lab Results 08/15/19 08/15/19 08/15/19 Range/Units 23:55 23:55 23:55 WBC 8.8 (3.8-10.6) k/uL RBC 4.26 L (4.30-5.90) m/uL Hgb 11.6 L (13.0-17.5) gm/dL Hct 36.5 L (39.0-53.0) % MCV 85.6 (80.0-100.0) fL MCH 27.2 (25.0-35.0) pg MCHC 31.8 (31.0-37.0) g/dL RDW 16.7 H (11.5-15.5) % Plt Count 330 (150-450) k/uL Neutrophils % 73 % Lymphocytes % 15 % Monocytes % 5 % Eosinophils % 5 % Basophils % 1 % Neutrophils # 6.4 (1.3-7.7) k/uL Lymphocytes # 1.3 (1.0-4.8) k/uL Monocytes # 0.5 (0-1.0) k/uL Eosinophils # 0.4 (0-0.7) k/uL Basophils # 0.1 (0-0.2) k/uL Hypochromasia Slight Anisocytosis Slight PT (9.0-12.0) sec INR (<1.2) APTT (22.0-30.0) sec D-Dimer (<0.60) mg/L FEU Sodium 137 (137-145) mmol/L Potassium 3.7 (3.5-5.1) mmol/L Chloride 91 L (98-107) mmol/L Carbon Dioxide 39 H (22-30) mmol/L Anion Gap 7 mmol/L BUN 20 (9-20) mg/dL Creatinine 0.64 L (0.66-1.25) mg/dL Est GFR (CKD-EPI)AfAm >90 (>60 ml/min/1.73 sqM) Est GFR (CKD-EPI)NonAf >90 (>60 ml/min/1.73 sqM) Glucose 103 H (74-99) mg/dL Calcium 9.8 (8.4-10.2) mg/dL Magnesium 1.7 (1.6-2.3) mg/dL Total Bilirubin 0.5 (0.2-1.3) mg/dL AST 23 (17-59) U/L ALT 27 (21-72) U/L Alkaline Phosphatase 97 (38-126) U/L Troponin I (0.000-0.034) ng/mL NT-Pro-B Natriuret Pep 80 pg/mL Total Protein 6.3 (6.3-8.2) g/dL Albumin 3.6 (3.5-5.0) g/dL Amylase (30-110) U/L Lipase (23-300) U/L 08/15/19 08/15/19 08/15/19 Range/Units 23:55 23:55 23:55 WBC (3.8-10.6) k/uL RBC (4.30-5.90) m/uL Hgb (13.0-17.5) gm/dL Hct (39.0-53.0) % MCV (80.0-100.0) fL MCH (25.0-35.0) pg MCHC (31.0-37.0) g/dL RDW (11.5-15.5) % Plt Count (150-450) k/uL Neutrophils % % Lymphocytes % % Monocytes % % Eosinophils % % Basophils % % Neutrophils # (1.3-7.7) k/uL Lymphocytes # (1.0-4.8) k/uL Monocytes # (0-1.0) k/uL Eosinophils # (0-0.7) k/uL Basophils # (0-0.2) k/uL Hypochromasia Anisocytosis PT 11.3 (9.0-12.0) sec INR 1.1 (<1.2) APTT 32.5 H (22.0-30.0) sec D-Dimer 1.62 H (<0.60) mg/L FEU Sodium (137-145) mmol/L Potassium (3.5-5.1) mmol/L Chloride (98-107) mmol/L Carbon Dioxide (22-30) mmol/L Anion Gap mmol/L BUN (9-20) mg/dL Creatinine (0.66-1.25) mg/dL Est GFR (CKD-EPI)AfAm (>60 ml/min/1.73 sqM) Est GFR (CKD-EPI)NonAf (>60 ml/min/1.73 sqM) Glucose (74-99) mg/dL Calcium (8.4-10.2) mg/dL Magnesium (1.6-2.3) mg/dL Total Bilirubin (0.2-1.3) mg/dL AST (17-59) U/L ALT (21-72) U/L Alkaline Phosphatase (38-126) U/L Troponin I <0.012 (0.000-0.034) ng/mL NT-Pro-B Natriuret Pep pg/mL Total Protein (6.3-8.2) g/dL Albumin (3.5-5.0) g/dL Amylase 48 (30-110) U/L Lipase 42 (23-300) U/L - EKG Data -: EKG Interpreted by Ia EKG shows normal: sinus rhythm, axis (Normal), intervals (Normal), QRS complexes (Incomplete right bundle branch block), ST-T waves (Normal) Rate: normal (85 Bpm) Disposition Clinical Impression: Pleural effusion, right Disposition: ADMITTED IP TO THIS HOSP Condition: Fair Referrals: Hugo Bailey MD [Primary Care Provider] - 1-2 days
--- NOTE | 2019-08-15 22:02 | XR ---
EXAMINATION TYPE: XR chest 2V DATE OF EXAM: 08/15/2019 COMPARISON: 08/07/2019 HISTORY: Difficulty breathing TECHNIQUE: Frontal and lateral views of the chest are obtained. FINDINGS: There is moderate right pleural effusion. There is no heart failure. Left lung is clear. H eart is top normal in size. There are chest leads. IMPRESSION: Right pleural effusion with some loculation. Right lower lobe pneumonia is possible. No significant change compared to last exam. No heart failure.
[2019-08-16 00:10] LABS: Anisocytosis Slight; Basophils # (A) 0.1 k/uL (0-0.2); Basophils % (A) 1 %; Eosinophils # (A) 0.4 k/uL (0-0.7); Eosinophils % (A) 5 %; HCT 36.5 % (39.0-53.0); HGB 11.6 gm/dL (13.0-17.5); Hypochromasia Slight; Lymphocytes # (A) 1.3 k/uL (1.0-4.8); Lymphocytes % (A) 15 %; MCH 27.2 pg (25.0-35.0); MCHC 31.8 g/dL (31.0-37.0); MCV 85.6 fL (80.0-100.0); Mean Platelet Volume 6.8; Monocytes # (A) 0.5 k/uL (0-1.0); Monocytes % (A) 5 %; Neutrophils # (A) 6.4 k/uL (1.3-7.7); Neutrophils % (A) 73 %; Platelet Count 330 k/uL (150-450); RBC 4.26 m/uL (4.30-5.90); RDW 16.7 % (11.5-15.5); WBC 8.8 k/uL (3.8-10.6)
[2019-08-16 00:19] LABS: ALT 27 U/L (21-72); AST 23 U/L (17-59); African American GFR (CKD) >90 (>60 ml/min/1.73 sqM); Albumin 3.6 g/dL (3.5-5.0); Alkaline Phosphatase 97 U/L (38-126); Blood Urea Nitrogen 20 mg/dL (9-20); Calcium 9.8 mg/dL (8.4-10.2); Chloride 91 mmol/L (98-107); Glucose 103 mg/dL (74-99); Magnesium 1.7 mg/dL (1.6-2.3); Potassium 3.7 mmol/L (3.5-5.1); Sodium 137 mmol/L (137-145); Total Bilirubin 0.5 mg/dL (0.2-1.3); Total Protein 6.3 g/dL (6.3-8.2)
[2019-08-16 00:26] LABS: Anion Gap 7 mmol/L; Carbon Dioxide 39 mmol/L (22-30)
[2019-08-16] MEDS ORDERED: HYDROcodone/APAP 5-325MG 1 EACH TAB PO STA (00:28)
[2019-08-16] MEDS ORDERED: OLANZapine 10 MG TAB PO STA (00:28)
[2019-08-16] MEDS ORDERED: DILTIAZEM ORAL 30 MG TAB PO STA (00:29)
[2019-08-16 00:34] LABS: INR 1.1 (<1.2); Partial Thromboplastin Time 32.5 sec (22.0-30.0); Prothrombin Time 11.3 sec (9.0-12.0)
[2019-08-16 00:41] LABS: D-Dimer 1.62 mg/L FEU (<0.60)
[2019-08-16 01:05] LABS: Amylase 48 U/L (30-110)
--- NOTE | 2019-08-16 01:58 | CT ---
EXAMINATION TYPE: CT chest angio for PE DATE OF EXAM: 08/16/2019 COMPARISON: 08/03/2019 HISTORY: R/O PE CT DLP: 1168.70 mGycm Automated exposure control for dose reduction was used. CONTRAST: CT Chest for pulmonary embolism performed with with IV Contrast, patient injected with 100 mL of Isov ue 370. There are 3-D post processed images. FINDINGS: There is very large right pleural effusion. There is significant atelectasis in the right lung. I see no filling defects in the pulmonary arteries. There is no mediastinal adenopathy. There is no eviden ce of thoracic aortic aneurysm or dissection. There is significant narrowing of the right lower lobe bronchus. I do not see a definite obstructing mass. There is minimal subsegmental atelectasis in the left lung. The bony thorax is intact.. IMPRESSION: No evidence of pulmonary embolism. Very large right pleural effusion and right lower lobe atelectasis without change. This could be passive atelectasis.
[2019-08-16] MEDS ORDERED: NALOXONE 0.4 MG/ML 1 ML VIAL IV PRN (02:35)
[2019-08-16] MEDS ORDERED: ALBUTEROL NEBULIZED 2.5 MG/3 ML INHALATION PRN (02:38)
[2019-08-16 05:36] LABS: Glucose,Whole Blood 119 mg/dL (75-99)
[2019-08-16] MEDS: DILTIAZEM ORAL 30 MG TAB PO SCH ×3 (06:26→18:28)
[2019-08-16] MEDS: IPRATROPIUM 0.5 MG/2.5 ML NEBU INHALATION SCH ×4 (07:26→19:16)
--- NOTE | 2019-08-16 07:36 | P.HPIM ---
History of Present Illness H&P Date: 08/16/19 The patient is a 58-year-old male with a PMH of mild diastolic chf, chronic hypercapnic respiratory failure, paroxysmal afib (on Xarelto), pseudoseizures, morbid obesity, sleeve gastrectomy, bedbound M, uses a hospital bed at home w/ a Marah lift, COPD, diabetes mellitus, anxiety, depression, and bipolar disorder who presented to the ED with complaints of chest pain and SOB. He notes that the pain started yesterday, is located in the R lower chest, constant, 5/10, with no alleviating or exacerbating features. Of note, the patient was recently admitted on 08/04/19 for chest pain and SOB when he was found to have a large R sided pleural effusion for which he underwent thoracentesis. Denying nausea, vomiting, palpitations. Denied diarrhea or abdominal pain. Denied fever, chills, or cough. He underwent an extensive evaluation in the ED w/ a Chest CTA showing very large R sided pleural effusion w/ RLL atelectasis. EKG as reviewed by me revealed NSR @ 85 bpm w/ IRBBB and without ST-T wave changes noted. Laboratory evaluation and revealed a WBC count of 8.8, hemoglobin of 11.6, platelets 330, sodium 137, potassium 3.7, CO2 39, BUN 20, Cr 0.64, Troponin < 0.012, and BNP 80. Patient was admitted to the medicine service for chest pain w/ recurrent R sided pleural effusion. Review of Systems Pertinent positives and negatives as discussed in HPI, a complete review of systems was performed and all other systems are negative. Past Medical History Past Medical History: Asthma, Cancer, COPD, CVA/TIA, Diabetes Mellitus, Deep Vein Thrombosis (DVT), GERD/Reflux, GI Bleed, Hyperlipidemia, Osteoarthritis (OA), Pneumonia, Pulmonary Embolus (PE), Renal Disease, Sleep Apnea/CPAP/BIPAP Additional Past Medical History / Comment(s): HYPOGLYCEMIA. NO C-PAP. DDD, SCOLIOSIS OF SPINE, SLEEPS IN RECLINER. HAVING . HX OF SKIN CANCER , Hiatal Hernia. Irregular HR in the past. DVT IN LEG, WENT TO LUNG - AFTER HIP SURG. BLOOD IN STOOL,RENAL DISEASE-STAGE 3," RETAINS FLUIDS " History of Any Multi-Drug Resistant Organisms: MRSA Date of last positivie culture/infection: AUG 2014 MDRO Source:: NASAL Past Surgical History: Appendectomy, Bariatric Surgery, Heart Catheterization, Hernia Repair, Joint Replacement, Orthopedic Surgery Additional Past Surgical History / Comment(s): RT ELBOW SURG X2, TOTAL RT HIP,ARTHROSCOPIC LT KNEE X2, RT ANKLE RECONSTRUCTIVE SURG, JANUARY 2014 GASTRIC SLEEVE, COLONOSCOPY'S. Basal Cell CA Face, Back. LT ING HERNIA Past Anesthesia/Blood Transfusion Reactions: Previous Problems w/ Anesthesia Additional Past Anesthesia/Blood Transfusion Reaction / Comment(s): STATES HE WAS TOLD HE WAS A DIFFICULT INTUBATION WITH GASTRIC SLEEVE SURGERY, Past Psychological History: Anxiety, Depression, Panic Disorder, Schizoaffective Disorder Smoking Status: Former smoker Past Alcohol Use History: None Reported Past Drug Use History: IV Drug Use - Past Family History Father Family Medical History: Cancer Additional Family Medical History / Comment(s): LUNG CA Medications and Allergies Home Medications Medication Instructions Recorded Confirmed Type OLANZapine [ZyPREXA] 20 mg PO HS 03/18/19 08/15/19 History Gabapentin [Neurontin] 600 mg PO DAILY 07/14/19 08/15/19 History HYDROcodone/APAP 5-325MG [[place] 1 tab PO Q6H PRN 07/14/19 08/15/19 History 5-325] Rivaroxaban [Xarelto] 20 mg PO DAILY 07/14/19 08/15/19 History DULoxetine HCL [Cymbalta] 40 mg PO DAILY 07/15/19 08/15/19 History Diltiazem HCl 30 mg PO Q6H 07/15/19 08/15/19 History busPIRone HCl [Buspar] 5 mg PO BID 07/15/19 08/15/19 History Albuterol Inhaler [Ventolin Hfa 2 puff INHALATION RT-Q6H PRN 08/03/19 08/15/19 History Inhaler] Aspirin EC [Ecotrin Low Dose] 81 mg PO DAILY 08/03/19 08/15/19 History Atorvastatin [Lipitor] 10 mg PO HS 08/03/19 08/15/19 History Ergocalciferol (Vitamin D2) 50,000 unit PO WE 08/03/19 08/15/19 History [Vitamin D2] Hydrocortisone [Cortef] 10 mg PO BID 08/03/19 08/15/19 History Lidocaine 5% Patch [Lidoderm 5% 1 patch TOPICAL DAILY 08/03/19 08/15/19 History Patch] Melatonin 5 mg PO HS 08/03/19 08/15/19 History Tiotropium 18 Mcg/Puff [Spiriva] 1 puff INHALATION RT-DAILY 08/03/19 08/15/19 History Furosemide [Lasix] 40 mg PO BID #60 08/07/19 08/15/19 Rx Potassium Chloride ER [K-Dur 20] 20 meq PO DAILY #30 tab 08/07/19 08/15/19 Rx Allergies Allergy/AdvReac Type Severity Reaction Status Date / Time codeine Allergy Severe Swelling Verified 08/15/19 20:58 OF THROAT WITH COUGH SYRUP chlorpheniramine Allergy Unknown Verified 08/15/19 20:58 febuxostat [From Uloric] Allergy Unknown Verified 08/15/19 20:58 phenylephrine Allergy Unknown Verified 08/15/19 20:58 piperacillin sodium Allergy Unknown Verified 08/15/19 20:58 [From Zosyn] tazobactam sodium Allergy Unknown Verified 08/15/19 20:58 [From Zosyn] Physical Exam Vitals: Vital Signs Temp Pulse Pulse Resp BP BP Pulse Ox 08/16/19 06:32 70 130/67 97 08/16/19 05:26 75 125/74 08/16/19 04:00 98.2 F 83 16 84/49 97 08/16/19 02:00 81 20 131/80 98 08/16/19 01:00 80 19 136/81 98 08/16/19 00:00 83 139/79 96 08/15/19 23:00 82 124/73 98 08/15/19 22:32 20 08/15/19 22:00 83 126/69 98 08/15/19 20:27 97.5 F L 87 20 130/88 97 Intake and Output 08/15/19 08/15/19 08/16/19 14:59 22:59 06:59 Output Total 700 Balance -700 Output: Urine 700 Other: Voiding Method Urinal Weight 172.365 kg General: non toxic, no distress, appears at stated age, morbidly obese Derm: no unusual rashes/lesions no unusual ecchymoses, warm, dry Head: atraumatic, normocephalic, symmetric Eyes: EOMI, no lid lag, anicteric sclera, pupils equal round reactive to light ENT: Nose and ears atraumatic, no thrush, no pharyngeal erythema Neck: No thyromegaly, no cervical lymphadenopathy, trachea midline, supple Mouth: no lip lesion, mucus membranes dry Cardiovascular: S1S2 reg, no murmur, positive posterior tibial pulse bilateral, no edema, capillary refill less than 2 seconds Lungs: Decreased breath sounds at RLL, no ronchi appreciated, no accessory muscle use Abdominal: soft, nontender to palpation, no guarding, no appreciable organomegaly, normal bowel sounds Ext: no gross muscle atrophy, muscle strength 4 out of 5 in all 4 extremities grossly, no contractures, Neuro: CN II-XI grossly intact, light touch intact all 4 extremities, finger to nose within normal limits, Psych: Alert, oriented, appropriate affect Results CBC & Chem 7: 08/15/19 23:55 08/15/19 23:55 Labs: Abnormal Lab Results - Last 24 Hours (Table) 08/15/19 08/15/19 08/15/19 Range/Units 23:55 23:55 23:55 RBC 4.26 L (4.30-5.90) m/uL Hgb 11.6 L (13.0-17.5) gm/dL Hct 36.5 L (39.0-53.0) % RDW 16.7 H (11.5-15.5) % APTT 32.5 H (22.0-30.0) sec D-Dimer 1.62 H (<0.60) mg/L FEU Chloride 91 L (98-107) mmol/L Carbon Dioxide 39 H (22-30) mmol/L Creatinine 0.64 L (0.66-1.25) mg/dL Glucose 103 H (74-99) mg/dL POC Glucose (mg/dL) (75-99) mg/dL 08/16/19 Range/Units 05:34 RBC (4.30-5.90) m/uL Hgb (13.0-17.5) gm/dL Hct (39.0-53.0) % RDW (11.5-15.5) % APTT (22.0-30.0) sec D-Dimer (<0.60) mg/L FEU Chloride (98-107) mmol/L Carbon Dioxide (22-30) mmol/L Creatinine (0.66-1.25) mg/dL Glucose (74-99) mg/dL POC Glucose (mg/dL) 119 H (75-99) mg/dL Assessment and Plan Plan: Chest pain, likely secondary to recurrent pleural effusion -Consult pulmonary for thoracentesis -Cardiac monitoring -Likely secondary to chronic atelectasis Chronic elevated Bicarb, likely compensatory from hypercapnic resp failure -Monitor for now -Consider nocturnal bipap therapy Debility -PT/OT consult Paroxysmal Afib, hx of DVT/PE -C/w Xarelto COPD, not in acute exacerbation -C/w home meds Type 2 DM -THOMAS with FS DVT prophylaxis -Xarelto The patient is admitted with an anticipated less than 2 midnight stay for evaluation of recurrent pleural effusion CODE STATUS: Full Code Discussed with: Patient Anticipated discharge date: 08/18/[address]: Home A total of 35 minutes was spent on the care of this complex patient more than 50% of the time was spent in counseling and care coordination.
[2019-08-16] MEDS ORDERED: FUROSEMIDE 40 MG TAB PO SCH (09:00)
[2019-08-16] MEDS ORDERED: ERGOCALCIFEROL 50,000 UNIT CAP PO SCH (09:00)
[2019-08-16] MEDS: LIDOCAINE 5% PATCH TOPICAL SCH (09:12)
[2019-08-16] MEDS: POTASSIUM CHLORIDE ER 20 MEQ TAB.ER PO SCH (09:13)
[2019-08-16] MEDS: GABAPENTIN 300 MG CAP PO SCH (09:13)
[2019-08-16] MEDS: ASPIRIN 81 MG PO SCH ×2 (09:13→16:09)
[2019-08-16] MEDS: busPIRone HCl 5 MG TAB PO SCH ×2 (09:14→20:52)
[2019-08-16] MEDS: HYDROCORTISONE 10 MG TAB PO SCH ×2 (09:14→20:52)
[2019-08-16] MEDS: DULoxetine HCL 20 MG CAPSULE.DR PO SCH (09:14)
[2019-08-16] MEDS: RIVAROXABAN 20 MG TAB PO SCH ×2 (09:14→16:09)
[2019-08-16] MEDS: HYDROcodone/APAP 5-325MG 1 EACH TAB PO PRN ×3 (09:22→22:38)
--- NOTE | 2019-08-16 15:07 | P.CNPUL ---
History of Present Illness Consult date: 08/16/19 Requesting physician: Alejandra Mak Reason for consult: dyspnea, pleural effusion Chief complaint: Shortness of breath History of present illness: This is a 58-year-old white male patient with the medical history significant for multiple medical problems and comorbidities, including history of morbid obesity with previous sleeve gastrectomy, paroxysmal atrial fibrillation on Xarelto, diabetes, hyperlipidemia, COPD, patient is a former smoker, his had a history of previous CVA, and previous episodes of C. diff colitis requiring hospitalization. In addition patient suffers from chronic pain, chronic difficulty with mobility and patient is essentially bedridden at home. Patient was previously seen by our group on 08/03/2019 for shortness of breath and he had a large right-sided pleural effusion and underwent right-sided thoracentesis would removal of 900 mL of pleural fluid which was found to be transudative in nature, with negative cytology and negative cultures. Patient was discharged home on oral 08/11/2019 in stable condition. Patient came back to the emergency department on 08/15/2019 with complaints of increasing shortness of breath, and right-sided chest pain. Described the pain as if someone was reaching up under his rib, constant in nature and moderate in intensity. Denied any fever or chills, denied any sternal discomfort, no nausea, no vomiting, no diaphoresis. Labs revealed white blood cell count of 8.8, hemoglobin of 11.6, reticulocyte count of 330, INR 1.1, d-dimer was 1.62, sodium is 137, potassium is 3.7, chloride is 91, CO2 39, BUN is 20 and creatinine 0.64. Troponin was negative 1, proBNP was within normal limits at 80. Patient has been afebrile, no fever or chills. Chest x-ray was completed showing right pleural effusion with some loculation, no significant change from prior exam. CT angios chest was completed in view of elevated d-dimer, and showed no evidence of pulmonary embolism, very large right pleural effusion and right lower lobe atelectasis without change. Patient is on the maintenance dose of Lasix 40 mg twice daily, and we were consulted for possible right-sided thoracentesis. Review of Systems All systems: negative Constitutional: Denies chills, Denies fever Eyes: denies blurred vision, denies pain Ears, nose, mouth and throat: Denies headache, Denies sore throat Cardiovascular: Reports chest pain, Denies shortness of breath Respiratory: Reports dyspnea, Denies cough Gastrointestinal: Denies abdominal pain, Denies diarrhea, Denies nausea, Denies vomiting Musculoskeletal: Denies myalgias Integumentary: Denies pruritus, Denies rash Neurological: Denies numbness, Denies weakness Psychiatric: Denies anxiety, Denies depression Endocrine: Denies fatigue, Denies weight change Past Medical History Past Medical History: Atrial Fibrillation, Asthma, Cancer, Heart Failure, COPD, CVA/TIA, Diabetes Mellitus, Deep Vein Thrombosis (DVT), GERD/Reflux, GI Bleed, Hyperlipidemia, Hypertension, Osteoarthritis (OA), Pneumonia, Pulmonary Embolus (PE), Renal Disease, Respiratory Disorder, Sleep Apnea/CPAP/BIPAP Additional Past Medical History / Comment(s): Pt recently admitted to [facility] on 08/05/19 with acute on chronic CHF/abnormal ECHO-see report/paroxysmal afib/bilateral pleural effusions with R sided thoracentesis. Other hx: Pt denies diabetes stating he has hypoglycemia/pt recently transfered to [facility] for endocrinology consultation-states he wasn't told anything new, states he has bilateral feet neuropathy, recent soft watery stools that have resolved, colitis, chronic diffuse abdominal pain, chronic generalized pain, fluid retent ion, bedbound, lower GI bleed, hiatal hernia, DVT in leg which traveled to his lung, DDD, scoliosis, ALEXIS without device, CKD stage III, pseudoseizures with past extensive work up thru [facility], basal cell skin cancer removed from face. History of Any Multi-Drug Resistant Organisms: MRSA Date of last positivie culture/infection: AUG 2014 MDRO Source:: NASAL Past Surgical History: Appendectomy, Bariatric Surgery, Heart Catheterization, Hernia Repair, Joint Replacement, Orthopedic Surgery Additional Past Surgical History / Comment(s): Gastric sleeve in 2014, L inguinal hernia repair, R elbow surgery x2, total R hip arthroplasty, L knee arthroscopy/ACL surgery, R ankle ORIF, EGD, colonoscopy, basal cell skin cancer from face, surgery for varicele. Past Anesthesia/Blood Transfusion Reactions: Previous Problems w/ Anesthesia Additional Past Anesthesia/Blood Transfusion Reaction / Comment(s): STATES HE WAS TOLD HE WAS A DIFFICULT INTUBATION WITH GASTRIC SLEEVE SURGERY, Smoking Status: Former smoker - Past Family History Father Family Medical History: Cancer Additional Family Medical History / Comment(s): LUNG CA Mother Additional Family Medical History / Comment(s): Mother of an infection. Medications and Allergies Home Medications Medication Instructions Recorded Confirmed Type OLANZapine [ZyPREXA] 20 mg PO HS 03/18/19 08/15/19 History Gabapentin [Neurontin] 600 mg PO DAILY 07/14/19 08/15/19 History HYDROcodone/APAP 5-325MG [Harris 1 tab PO Q6H PRN 07/14/19 08/15/19 History 5-325] Rivaroxaban [Xarelto] 20 mg PO DAILY 07/14/19 08/15/19 History DULoxetine HCL [Cymbalta] 40 mg PO DAILY 07/15/19 08/15/19 History Diltiazem HCl 30 mg PO Q6H 07/15/19 08/15/19 History busPIRone HCl [Buspar] 5 mg PO BID 07/15/19 08/15/19 History Albuterol Inhaler [Ventolin Hfa 2 puff INHALATION RT-Q6H PRN 08/03/19 08/15/19 History Inhaler] Aspirin EC [Ecotrin Low Dose] 81 mg PO DAILY 08/03/19 08/15/19 History Atorvastatin [Lipitor] 10 mg PO HS 08/03/19 08/15/19 History Ergocalciferol (Vitamin D2) 50,000 unit PO WE 08/03/19 08/15/19 History [Vitamin D2] Hydrocortisone [Cortef] 10 mg PO BID 08/03/19 08/15/19 History Lidocaine 5% Patch [Lidoderm 5% 1 patch TOPICAL DAILY 08/03/19 08/15/19 History Patch] Melatonin 5 mg PO HS 08/03/19 08/15/19 History Tiotropium 18 Mcg/Puff [Spiriva] 1 puff INHALATION RT-DAILY 08/03/19 08/15/19 History Furosemide [Lasix] 40 mg PO BID #60 08/07/19 08/15/19 Rx Potassium Chloride ER [K-Dur 20] 20 meq PO DAILY #30 tab 08/07/19 08/15/19 Rx Allergies Allergy/AdvReac Type Severity Reaction Status Date / Time codeine Allergy Severe Swelling Verified 08/15/19 20:58 OF THROAT WITH COUGH SYRUP chlorpheniramine Allergy Unknown Verified 08/15/19 20:58 febuxostat [From Uloric] Allergy Unknown Verified 08/15/19 20:58 phenylephrine Allergy Unknown Verified 08/15/19 20:58 piperacillin sodium Allergy Unknown Verified 08/15/19 20:58 [From Zosyn] tazobactam sodium Allergy Unknown Verified 08/15/19 20:58 [From Zosyn] Physical Exam Vitals: Vital Signs Temp Pulse Pulse Resp BP BP Pulse Ox 08/16/19 12:07 97.6 F 74 17 115/71 98 08/16/19 11:45 72 08/16/19 11:37 72 08/16/19 07:33 74 08/16/19 07:26 72 08/16/19 06:32 70 130/67 97 08/16/19 05:26 75 125/74 08/16/19 04:00 98.2 F 83 16 84/49 97 08/16/19 02:00 81 20 131/80 98 08/16/19 01:00 80 19 136/81 98 08/16/19 00:00 83 139/79 96 08/15/19 23:00 82 124/73 98 08/15/19 22:32 20 08/15/19 22:00 83 126/69 98 08/15/19 20:27 97.5 F L 87 20 130/88 97 Intake and Output 08/15/19 08/16/19 08/16/19 22:59 06:59 14:59 Output Total 700 Balance -700 Output: Urine 700 Other: Voiding Method Urinal Urinal Weight 172.365 kg GENERAL EXAM: Alert, pleasant, morbidly obese 58-year-old white male on 2 L of oxygen comfortable in no apparent distress. HEAD: Normocephalic/atraumatic. EYES: Normal reaction of pupils, equal size. Conjunctiva pink, sclera white. NOSE: Clear with pink turbinates. THROAT: No erythema or exudates. NECK: No masses, no JVD, no thyroid enlargement, no adenopathy. CHEST: No chest wall deformity. Symmetrical expansion. LUNGS: Equal air entry with diminished breath sounds over right lower lobe, with some limited crackles CVS: Regular rate and rhythm, normal S1 and S2, no gallops, no murmurs, no rubs ABDOMEN: Soft, nontender. No hepatosplenomegaly, normal bowel sounds, no guarding or rigidity. EXTREMITIES: No clubbing, 2+ edema in right lower extremity, 1+ in the left lower extremity and no cyanosis, 2+ pulses and upper and lower extremities. MUSCULOSKELETAL: Muscle strength and tone normal. SPINE: No scoliosis or deformity SKIN: No rashes CENTRAL NERVOUS SYSTEM: Alert and oriented -3. No focal deficits, tone is normal in all 4 extremities. PSYCHIATRIC: Alert and oriented -3. Appropriate affect. Intact judgment and insight. Results - Laboratory Findings CBC and BMP: 08/15/19 23:55 08/15/19 23:55 PT/INR, D-dimer PT 11.3 sec (9.0-12.0) 08/15/19 23:55 INR 1.1 (<1.2) 08/15/19 23:55 D-Dimer 1.62 mg/L FEU (<0.60) H 08/15/19 23:55 Abnormal lab findings: Abnormal Labs 08/15/19 08/15/19 08/15/19 23:55 23:55 23:55 RBC 4.26 L Hgb 11.6 L Hct 36.5 L RDW 16.7 H APTT 32.5 H D-Dimer 1.62 H Chloride 91 L Carbon Dioxide 39 H Creatinine 0.64 L Glucose 103 H POC Glucose (mg/dL) 08/16/19 05:34 RBC Hgb Hct RDW APTT D-Dimer Chloride Carbon Dioxide Creatinine Glucose POC Glucose (mg/dL) 119 H - Diagnostic Findings Chest x-ray: report reviewed, image reviewed CT scan - chest: report reviewed, image reviewed Additional studies: EKG reviewed Assessment and Plan Plan: Assessment: #1. Recurrent loculated right-sided pleural effusion, status post right-sided thoracentesis during previous admission on 08/07/2019 with negative cytology, and cultures, and fluid was transudative in nature. ProBNP is negative, the etiology of the pleural effusion is unknown #2. Elevated d-dimer, CT angios chest negative for evidence of pulmonary embolism, patient is on chronic anticoagulation #3. Morbid obesity with a BMI of 61.3, patient is status post gastric sleeve for morbid obesity #4. Obstructive sleep apnea #5. History of DVT and pulmonary embolism on Xarelto #6. Paroxysmal atrial fibrillation currently in sinus rhythm #7. Diabetes mellitus type 2 #8. COPD #9. Hyperlipidemia #10. Osteoarthritis/scoliosis of the spine, chronic difficulties with mobility related to morbid obesity and multiple orthopedic surgeries #11. Previous history of C. diff colitis #12. Gait dysfunction, patient is bedridden on a regular basis #13. Generalized weakness #14. Chronic pain #15. History of depression/bipolar disorder #16. History of pseudoseizures Plan: We'll obtain ultrasound of the chest. Patient will be initiated on IV Lasix drip at 10 mg per hour, we'll repeat chest x-ray tomorrow, X-ray diagnosed, insert Ferris catheter daily weights. The etiology of the recurrence of the right pleural effusion is unclear, it is however appears to be more loculated on this admission, if patient requires repeat thoracentesis we will consult interventional radiology for for now will medically manage the patient as he appears to have some generalized swelling including his lower extremities as well. Continue with current medical treatment otherwise, continue with daily labs I performed a history & physical examination of the patient and discussed their management with my nurse practitioner, Sophia Martinez. I reviewed the nurse practitioner's note and agree with the documented findings and plan of care. Lung sounds are positive for diminished breath sounds. The findings and the impression was discussed with the patient. I attest to the documentation by the nurse practitioner. Time with Patient: Greater than 30
--- NOTE | 2019-08-16 15:29 | US ---
EXAMINATION TYPE: US chest DATE OF EXAM: 08/16/2019 COMPARISON: CTA chest earlier today. CLINICAL HISTORY: right chest ultrasound. Pleural effusion TECHNIQUE: Targeted ultrasound of the posterior lower right EXAM MEASUREMENTS: Right Pleural Effusion pocket size: 4.2 cm Right skin surface to fluid distance: 3.3 cm Right side marked for possible thoracentesis outside the dept. Pulmonologists are able to review the images in the patient?s EMR. Redemonstration of moderate-sized right pleural effusion on 4 images saved. Findings correlate with C T earlier today. IMPRESSIONS: As above.
[2019-08-16 16:20] LABS: Glucose,Whole Blood 126 mg/dL (75-99)
[2019-08-16] MEDS: FUROSEMIDE 100 MG in SODIUM CHLORIDE 0.9% 90 ML IV SCH (16:22)
[2019-08-16] MEDS: ATORVASTATIN 10 MG TAB PO SCH (20:52)
[2019-08-16] MEDS: MELATONIN 5 MG TABLET PO SCH (20:52)
[2019-08-16] MEDS: OLANZapine 10 MG TAB PO SCH (20:53)
[2019-08-17] MEDS: DILTIAZEM ORAL 30 MG TAB PO SCH ×5 (00:01→23:47)
[2019-08-17] MEDS: FUROSEMIDE 100 MG in SODIUM CHLORIDE 0.9% 90 ML IV SCH ×3 (00:13→16:46)
[2019-08-17 03:38] LABS: Glucose,Whole Blood 113 mg/dL (75-99)
[2019-08-17] MEDS: GABAPENTIN 300 MG CAP PO SCH (07:50)
[2019-08-17] MEDS: HYDROcodone/APAP 5-325MG 1 EACH TAB PO PRN ×3 (07:50→19:46)
[2019-08-17] MEDS: POTASSIUM CHLORIDE ER 20 MEQ TAB.ER PO SCH ×3 (07:51→13:45)
[2019-08-17] MEDS: LIDOCAINE 5% PATCH TOPICAL SCH ×2 (07:51→08:11)
[2019-08-17] MEDS: HYDROCORTISONE 10 MG TAB PO SCH ×2 (07:52→21:26)
[2019-08-17] MEDS: DULoxetine HCL 20 MG CAPSULE.DR PO SCH (07:52)
[2019-08-17] MEDS: busPIRone HCl 5 MG TAB PO SCH ×2 (07:52→21:26)
[2019-08-17 08:00] LABS: Glucose,Whole Blood 91 mg/dL (75-99)
[2019-08-17 08:32] LABS: African American GFR (CKD) >90 (>60 ml/min/1.73 sqM); Blood Urea Nitrogen 16 mg/dL (9-20); Calcium 9.7 mg/dL (8.4-10.2); Chloride 84 mmol/L (98-107); Glucose 88 mg/dL (74-99); Potassium 3.1 mmol/L (3.5-5.1); Sodium 140 mmol/L (137-145)
[2019-08-17 08:39] LABS: Anion Gap 8 mmol/L
[2019-08-17 08:45] LABS: Carbon Dioxide 48 mmol/L (22-30)
[2019-08-17] MEDS: IPRATROPIUM 0.5 MG/2.5 ML NEBU INHALATION SCH ×4 (08:55→19:56)
[2019-08-17 10:41] LABS: Glucose,Whole Blood 103 mg/dL (75-99)
--- NOTE | 2019-08-17 11:22 | P.PCN ---
Date of Procedure: 08/17/19 Preoperative Diagnosis: pleural effusion Postoperative Diagnosis: sanguinous pleural effusion Procedure(s) Performed: thoracentesis Anesthesia: local Estimated Blood Loss (ml): 10 Pathology: other Condition: stable Disposition: no change Operative Findings: 20cc serous sanguionous fluid, 2 punctures, full report follows
[2019-08-17] MEDS ORDERED: Potassium Replacement Protocol 1 EACH MISC MISCELLANE PRN (11:56)
--- NOTE | 2019-08-17 11:56 | XR ---
EXAMINATION TYPE: XR chest 1V portable DATE OF EXAM: 08/17/2019 Comparison: 08/17/2019 earlier today Clinical History: 58-year-old male post right thoracentesis Findings: Heart borderline enlarged. Partial obscuration right heart margin. Continued moderate right effusion with hazy density extending up into the upper lung. Effusion stable to minimally decreased. No apprec iable pneumothorax. Impression: Moderate effusion, slightly decreased. Extensive adjacent atelectasis and/or consolidation throughout the right chest. No appreciable pneumothorax.
--- NOTE | 2019-08-17 12:14 | US ---
EXAMINATION TYPE: US thoracentesis DATE OF EXAM: 08/17/2019 COMPARISON: NONE HISTORY: Pleural effusion. FINDINGS: Maximal barrier technique was utilized. The skin overlying a suitable pocket of fluid was localized and the overlying skin prepped and draped. Lidocaine was used for local anesthesia. Ultras ound was used with sterile technique. A 5 Indonesian catheter over guide needle was advanced into the pl eural fluid collection using ultrasound guidance and the catheter advanced, needle removed. No signi ficant fluid return, the procedure was repeated and approximately 20 cc of serous sanguinous material obtained. Catheter was withdrawn and hemostasis achieved. There is no immediate complication. The patient discharged in stable condition without complication. IMPRESSION: STATUS POST ULTRASOUND GUIDED THORACENTESIS, POST PROCEDURE CHEST X-RAY PENDING. THIS [place] OCEDURE WAS PERFORMED BY THE UNDERSIGNED.
[2019-08-17 12:46] VITALS: RESP 20
--- NOTE | 2019-08-17 12:47 | XR ---
EXAMINATION TYPE: XR chest 1V portable DATE OF EXAM: 08/17/2019 Comparison: 08/15/2019 Clinical History: 58-year-old male follow-up for effusion Findings: Heart borderline enlarged. Partial obscuration of the right hemidiaphragm. Moderate to large right pl eural effusion persists, slightly increased in size. Hazy density extends up to the upper lung. Impression: Moderate to large right pleural effusion stable to slightly larger. Underlying atelectasis and/or con solidation.
--- NOTE | 2019-08-17 13:13 | P.PN ---
Subjective Progress Note Date: 08/17/19 Principal diagnosis: Shortness of breath Patient was seen and examined. No acute events overnight. Patient reports minimal changes in his breathing since yesterday. He continues to complain of shortness of breath. Also has some pleuritic right-sided chest pain with deep inspiration. He denies any palpitations. No nausea or vomiting. No fever or chills. Tolerating diet well. Has not had a bowel movement since Wednesday, requesting stool softener. Objective - Vital Signs Vital signs: Vital Signs Temp 96.9 F L 08/17/19 12:41 Pulse 89 08/17/19 12:41 Resp 20 08/17/19 12:41 BP 127/66 08/17/19 12:41 Pulse Ox 96 08/17/19 12:41 Intake & Output 08/16/19 08/17/19 08/17/19 18:59 06:59 18:59 Intake Total 78.5 579.5 Output Total 3575 500 Balance -3496.5 79.5 Weight 175.54 kg 178.5 kg Intake: Intake, IV Titration 78.5 79.5 Amount Furosemide 100 mg In 78.5 79.5 Sodium Chloride 0.9% 90 ml @ 10 MG/HR 10 mls/hr IV .Q10H [facility] Rx#: [id number] Oral 500 Output: Urine 3575 500 Other: Voiding Method Urinal Urinal Urinal - Exam General: [non toxic], [no distress], [appears at stated age] Derm: [warm], [dry] Head: [atraumatic], [normocephalic], [symmetric] Eyes: [EOMI], [no lid lag], [anicteric sclera] Mouth: [no lip lesion], [mucus membranes moist] Cardiovascular: [S1S2 reg], [no murmur] Lungs: [Decreased breath sounds bilateral especially at the bases], [no rhonchi, no rales] , [no accessory muscle use] Abdominal: [soft], [mild tenderness in the right upper and lower quadrant without rebound], [no guarding], [no appreciable organomegaly] Ext: [no gross muscle atrophy], [no edema], [no contractures] Neuro: [no focal neuro deficits] Psych: [Alert], [oriented], [appropriate affect] - Labs CBC & Chem 7: 09/17/19 23:55 08/17/19 07:33 Labs: Abnormal Lab Results - Last 24 Hours (Table) 08/16/19 08/17/19 08/17/19 Range/Units 16:19 03:37 07:33 Potassium 3.1 L (3.5-5.1) mmol/L Chloride 84 L (98-107) mmol/L Carbon Dioxide 48 H* (22-30) mmol/L POC Glucose (mg/dL) 126 H 113 H (75-99) mg/dL 08/17/19 Range/Units 10:39 Potassium (3.5-5.1) mmol/L Chloride (98-107) mmol/L Carbon Dioxide (22-30) mmol/L POC Glucose (mg/dL) 103 H (75-99) mg/dL Assessment and Plan Assessment: Assessment and Plan Dyspnea likely related to recurrent pleural effusion Elevated bicarbonate, likely compensation from hypercapnic respiratory failure Hypokalemia Paroxysmal atrial fibrillation with history of PE and DVT COPD, stable Type 2 diabetes mellitus Morbid obesity with BMI 63.5 Thoracentesis performed by IR. 20 mL serous sanguinous fluid drained. Plans: Albuterol neb as needed for shortness of breath and wheezing. Continue Lasix drip. Follow pulmonology recommendations. Repeat chest x-ray in the morning. Bicarbonate of 48. Likely compensation from hypercapnic respiratory failure. Plans: Nocturnal BiPAP. No respiratory distress, no need for a PEG. Potassium 3.1. Plans: Replaced via protocol. Plans: Rate control with diltiazem. Xarelto for anticoagulation. Plans: Albuterol neb as needed for shortness of breath and wheezing. [id number] glucose 103. Plans: Hold insulin sliding scale for now. Regular Accu-Cheks. Hypoglycemic precautions. Bariatric surgery in the past. Plans: Structured weight loss program. [Patient admitted for recurrent pleural effusion. Thoracentesis performed by IR today, 20 mL drained. Continue IV Lasix. Follow pulmonology recommendations. Likely DC in 1-2 days.]
[2019-08-17] MEDS: BISACODYL 5 MG TABLET.DR PO PRN (13:45)
--- NOTE | 2019-08-17 13:54 | P.PN ---
Subjective Progress Note Date: 08/17/19 Principal diagnosis: Dyspnea, small pleural effusion This is a 58-year-old white male patient with the medical history significant for multiple medical problems and comorbidities, including history of morbid obesity with previous sleeve gastrectomy, paroxysmal atrial fibrillation on Xarelto, diabetes, hyperlipidemia, COPD, patient is a former smoker, his had a history of previous CVA, and previous episodes of C. diff colitis requiring hospitalization. In addition patient suffers from chronic pain, chronic difficulty with mobility and patient is essentially bedridden at home. Patient was previously seen by our group on 08/03/2019 for shortness of breath and he had a large right-sided pleural effusion and underwent right-sided thoracentesis would removal of 900 mL of pleural fluid which was found to be transudative in nature, with negative cytology and negative cultures. Patient was discharged home on oral 08/11/2019 in stable condition. Patient came back to the emergency department on 08/15/2019 with complaints of increasing shortness of breath, and right-sided chest pain. Described the pain as if someone was reaching up under his rib, constant in nature and moderate in intensity. Denied any fever or chills, denied any sternal discomfort, no nausea, no vomiting, no diaphoresis. Labs revealed white blood cell count of 8.8, hemoglobin of 11.6, reticulocyte count of 330, INR 1.1, d-dimer was 1.62, sodium is 137, potassium is 3.7, chloride is 91, CO2 39, BUN is 20 and creatinine 0.64. Troponin was negative 1, proBNP was within normal limits at 80. Patient has been afebrile, no fever or chills. Chest x-ray was completed showing right pleural effusion with some loculation, no significant change from prior exam. CT angios chest was completed in view of elevated d-dimer, and showed no evidence of pulmonary embolism, very large right pleural effusion and right lower lobe atelectasis without change. Patient is on the maintenance dose of Lasix 40 mg twice daily, and we were consulted for possible right-sided thoracentesis. The patient was seen today 08/17/2019 in follow-up on the regular medical floor. He is awake and alert in no acute distress. No worsening shortness of breath, cough or congestion. He did undergo a right-sided thoracentesis however only 20 MLS of serosanguineous fluid removed per interventional radiology. Follow-up chest x-ray continues to show moderate to large right-sided pleural effusion stable compared to previous. He is maintaining good O2 saturations in the 90s on room air. He's afebrile. Hemodynamically stable. Sodium 140. Potassium 3.1. Chloride 84. Bicarb 48. Creatinine 0.87. He is currently on a Lasix drip at 10 mg per hour. Anticoagulated with Xarelto. Objective - Vital Signs Vital signs: Vital Signs Temp 96.9 F L 08/17/19 12:41 Pulse 89 08/17/19 12:41 Resp 20 08/17/19 12:41 BP 127/66 08/17/19 12:41 Pulse Ox 96 08/17/19 12:41 Intake & Output 08/16/19 08/17/19 08/17/19 18:59 06:59 18:59 Intake Total 78.5 579.5 Output Total 3575 500 Balance -3496.5 79.5 Weight 175.54 kg 178.5 kg Intake: Intake, IV Titration 78.5 79.5 Amount Furosemide 100 mg In 78.5 79.5 Sodium Chloride 0.9% 90 ml @ 10 MG/HR 10 mls/hr IV .Q10H [facility] Rx#: [id number] Oral 500 Output: Urine 3575 500 Other: Voiding Method Urinal Urinal Urinal - Exam GENERAL EXAM: Alert, pleasant, morbidly obese 58-year-old gentleman on room air, comfortable in no apparent distress. HEAD: Normocephalic/atraumatic. EYES: Normal reaction of pupils, equal size. Conjunctiva pink, sclera white. NOSE: Clear with pink turbinates. THROAT: No erythema or exudates. NECK: No masses, no JVD, no thyroid enlargement, no adenopathy. CHEST: No chest wall deformity. Symmetrical expansion. LUNGS: Equal air entry with diminished breath sounds over right lower lobe, with some limited crackles CVS: Regular rate and rhythm, normal S1 and S2, no gallops, no murmurs, no rubs ABDOMEN: Soft, nontender. No hepatosplenomegaly, normal bowel sounds, no guarding or rigidity. EXTREMITIES: No clubbing, 2+ edema in right lower extremity, 1+ in the left lower extremity and no cyanosis, 2+ pulses and upper and lower extremities. MUSCULOSKELETAL: Muscle strength and tone normal. SPINE: No scoliosis or deformity SKIN: No rashes CENTRAL NERVOUS SYSTEM: No focal deficits, tone is normal in all 4 extremities. PSYCHIATRIC: Alert and oriented -3. Appropriate affect. Intact judgment and insight. - Labs CBC & Chem 7: 08/15/19 23:55 08/17/19 07:33 Labs: Abnormal Lab Results - Last 24 Hours (Table) 08/16/19 08/17/19 08/17/19 Range/Units 16:19 03:37 07:33 Potassium 3.1 L (3.5-5.1) mmol/L Chloride 84 L (98-107) mmol/L Carbon Dioxide 48 H* (22-30) mmol/L POC Glucose (mg/dL) 126 H 113 H (75-99) mg/dL 08/17/19 Range/Units 10:39 Potassium (3.5-5.1) mmol/L Chloride (98-107) mmol/L Carbon Dioxide (22-30) mmol/L POC Glucose (mg/dL) 103 H (75-99) mg/dL Assessment and Plan Assessment: Assessment: #1. Recurrent loculated right-sided pleural effusion, status post right-sided thoracentesis during previous admission on 08/07/2019 with negative cytology, and cultures, and fluid was transudative in nature. ProBNP is negative, the etiology of the pleural effusion is unknown #2. Elevated d-dimer, CT angios chest negative for evidence of pulmonary embolism, patient is on chronic anticoagulation #3. Morbid obesity with a BMI of 61.3, patient is status post gastric sleeve for morbid obesity #4. Obstructive sleep apnea #5. History of DVT and pulmonary embolism on Xarelto #6. Paroxysmal atrial fibrillation currently in sinus rhythm #7. Diabetes mellitus type 2 #8. COPD #9. Hyperlipidemia #10. Osteoarthritis/scoliosis of the spine, chronic difficulties with mobility related to morbid obesity and multiple orthopedic surgeries #11. Previous history of C. diff colitis #12. Gait dysfunction, patient is bedridden on a regular basis #13. Generalized weakness #14. Chronic pain #15. History of depression/bipolar disorder #16. History of pseudoseizures Plan: The patient was seen and evaluated by Dr. Rondon. Chest x-ray and labs reviewed. He is continued on a Lasix drip at 10 mg per hour. He did undergo ultrasound- guided right-sided thoracentesis with only 20 ML's of serous tenderness fluid removed per interventional radiology. No immediate complications. We'll continue with current treatment plan. Increase his activity as tolerated. We'll continue to follow. I, the cosigning physician, performed a history & physical examination of the patient. Lungs sounds with crackles, dullness in the right lung base. Maintaining good O2 saturations in the 90s on room air. I discussed the assessment and plan of care with my nurse practitioner, Goldie Guardado. I attest to the above note as dictated by her.
[2019-08-17] MEDS: ATORVASTATIN 10 MG TAB PO SCH (21:26)
[2019-08-17] MEDS: OLANZapine 10 MG TAB PO SCH (21:26)
[2019-08-17] MEDS: MELATONIN 5 MG TABLET PO SCH (21:26)
[2019-08-18] MEDS: FUROSEMIDE 100 MG in SODIUM CHLORIDE 0.9% 90 ML IV SCH (02:00)
[2019-08-18] MEDS: HYDROcodone/APAP 5-325MG 1 EACH TAB PO PRN ×3 (03:52→17:57)
[2019-08-18 05:02] LABS: Glucose,Whole Blood 94 mg/dL (75-99)
[2019-08-18] MEDS: DILTIAZEM ORAL 30 MG TAB PO SCH ×3 (05:25→17:32)
[2019-08-18 05:43] VITALS: BP 117/65; TEMP 97.9
[2019-08-18] MEDS: IPRATROPIUM 0.5 MG/2.5 ML NEBU INHALATION SCH ×3 (07:49→15:46)
[2019-08-18] MEDS: RIVAROXABAN 20 MG TAB PO SCH (09:33)
[2019-08-18] MEDS: POTASSIUM CHLORIDE ER 20 MEQ TAB.ER PO SCH ×3 (09:33→12:05)
[2019-08-18] MEDS: BISACODYL 5 MG TABLET.DR PO PRN (09:33)
[2019-08-18] MEDS: ASPIRIN 81 MG PO SCH (09:33)
[2019-08-18] MEDS: GABAPENTIN 300 MG CAP PO SCH (09:33)
[2019-08-18] MEDS: LIDOCAINE 5% PATCH TOPICAL SCH ×2 (09:34→10:20)
[2019-08-18] MEDS: DULoxetine HCL 20 MG CAPSULE.DR PO SCH (09:35)
[2019-08-18] MEDS: busPIRone HCl 5 MG TAB PO SCH (09:35)
[2019-08-18] MEDS: HYDROCORTISONE 10 MG TAB PO SCH (09:36)
[2019-08-18 09:39] LABS: Anisocytosis Slight; Basophils # (A) 0.1 k/uL (0-0.2); Basophils % (A) 1 %; Eosinophils # (A) 0.4 k/uL (0-0.7); Eosinophils % (A) 4 %; HCT 41.8 % (39.0-53.0); HGB 13.3 gm/dL (13.0-17.5); Lymphocytes # (A) 1.7 k/uL (1.0-4.8); Lymphocytes % (A) 18 %; MCH 27.2 pg (25.0-35.0); MCHC 31.8 g/dL (31.0-37.0); MCV 85.7 fL (80.0-100.0); Mean Platelet Volume 6.8; Monocytes # (A) 0.5 k/uL (0-1.0); Monocytes % (A) 5 %; Neutrophils # (A) 6.7 k/uL (1.3-7.7); Neutrophils % (A) 70 %; Platelet Count 356 k/uL (150-450); RBC 4.87 m/uL (4.30-5.90); RDW 17.1 % (11.5-15.5); WBC 9.5 k/uL (3.8-10.6)
[2019-08-18 10:08] LABS: African American GFR (CKD) >90 (>60 ml/min/1.73 sqM); Blood Urea Nitrogen 21 mg/dL (9-20); Calcium 9.9 mg/dL (8.4-10.2); Chloride 82 mmol/L (98-107); Glucose 97 mg/dL (74-99); Sodium 139 mmol/L (137-145)
[2019-08-18 10:15] LABS: Anion Gap 12 mmol/L
[2019-08-18 10:19] LABS: Carbon Dioxide 45 mmol/L (22-30)
[2019-08-18] MEDS ORDERED: Potassium Replacement Protocol 1 EACH MISC MISCELLANE PRN (10:33)
--- NOTE | 2019-08-18 10:46 | XR ---
EXAMINATION TYPE: XR chest 1V portable DATE OF EXAM: 08/18/2019 HISTORY: Shortness of breath. COMPARISON: 08/17/2019 TECHNIQUE: Single view of the chest is submitted. FINDINGS: Demonstrated are scattered senescent parenchymal change. Right-sided pleural effusion with right basilar atelectasis and/or infiltrate appears stable. The heart is stable. Hilar and mediastinal structures are within normal limits. Degenerative changes are seen of the dorsal spine. IMPRESSION: 1. Right-sided pleural effusion with right basilar atelectasis and/or infiltrate appears stable.
--- NOTE | 2019-08-18 11:45 | P.PN ---
Subjective Progress Note Date: 08/18/19 Principal diagnosis: Dyspnea, small pleural effusion This is a 58-year-old white male patient with the medical history significant for multiple medical problems and comorbidities, including history of morbid obesity with previous sleeve gastrectomy, paroxysmal atrial fibrillation on Xarelto, diabetes, hyperlipidemia, COPD, patient is a former smoker, his had a history of previous CVA, and previous episodes of C. diff colitis requiring hospitalization. In addition patient suffers from chronic pain, chronic difficulty with mobility and patient is essentially bedridden at home. Patient was previously seen by our group on 08/03/2019 for shortness of breath and he had a large right-sided pleural effusion and underwent right-sided thoracentesis would removal of 900 mL of pleural fluid which was found to be transudative in nature, with negative cytology and negative cultures. Patient was discharged home on oral 08/11/2019 in stable condition. Patient came back to the emergency department on 08/15/2019 with complaints of increasing shortness of breath, and right-sided chest pain. Described the pain as if someone was reaching up under his rib, constant in nature and moderate in intensity. Denied any fever or chills, denied any sternal discomfort, no nausea, no vomiting, no diaphoresis. Labs revealed white blood cell count of 8.8, hemoglobin of 11.6, reticulocyte count of 330, INR 1.1, d-dimer was 1.62, sodium is 137, potassium is 3.7, chloride is 91, CO2 39, BUN is 20 and creatinine 0.64. Troponin was negative 1, proBNP was within normal limits at 80. Patient has been afebrile, no fever or chills. Chest x-ray was completed showing right pleural effusion with some loculation, no significant change from prior exam. CT angios chest was completed in view of elevated d-dimer, and showed no evidence of pulmonary embolism, very large right pleural effusion and right lower lobe atelectasis without change. Patient is on the maintenance dose of Lasix 40 mg twice daily, and we were consulted for possible right-sided thoracentesis. The patient was seen today 08/17/2019 in follow-up on the regular medical floor. He is awake and alert in no acute distress. No worsening shortness of breath, cough or congestion. He did undergo a right-sided thoracentesis however only 20 MLS of serosanguineous fluid removed per interventional radiology. Follow-up chest x-ray continues to show moderate to large right-sided pleural effusion stable compared to previous. He is maintaining good O2 saturations in the 90s on room air. He's afebrile. Hemodynamically stable. Sodium 140. Potassium 3.1. Chloride 84. Bicarb 48. Creatinine 0.87. He is currently on a Lasix drip at 10 mg per hour. Anticoagulated with Xarelto. The patient is seen today 08/18/2018 in follow-up on the regular medical floor. He is awake and alert in no acute distress. Resting in bed. Maintain O2 saturations in the 90s on 2 L/m per nasal cannula. White count 9.5. Hemoglobin 13.3. Bicarb 45. Creatinine 0.80. Potassium 3.0. He remains on a Lasix drip at 10 mg per hour. Currently in a negative balance. His weight is 174.8 kg. Objective - Vital Signs Vital signs: Vital Signs Temp 97.9 F 08/18/19 05:42 Pulse 88 08/18/19 11:35 Resp 20 08/18/19 05:42 BP 117/65 08/18/19 05:42 Pulse Ox 96 08/18/19 05:42 Intake & Output 08/17/19 08/18/19 08/18/19 18:59 06:59 18:59 Intake Total 1065.5 1532.333 Output Total 1600 2800 600 Balance -534.5 -1267.667 -600 Weight 174.8 kg Intake: Intake, IV Titration 165.5 92.333 Amount Furosemide 100 mg In 165.5 92.333 Sodium Chloride 0.9% 90 ml @ 10 MG/HR 10 mls/hr IV .Q10H [facility] Rx#: [id number] Oral 900 1440 Output: Urine 1600 2800 600 Other: Voiding Method Urinal Urinal Urinal # Bowel Movements 1 - Exam GENERAL EXAM: Alert, morbidly obese 58-year-old gentleman on 2 L/m per nasal cannula, comfortable in no apparent distress. HEAD: Normocephalic/atraumatic. EYES: Normal reaction of pupils, equal size. Conjunctiva pink, sclera white. NOSE: Clear with pink turbinates. THROAT: No erythema or exudates. NECK: No masses, no JVD, no thyroid enlargement, no adenopathy. CHEST: No chest wall deformity. Symmetrical expansion. LUNGS: Equal air entry with diminished breath sounds over right lower lobe, with some limited crackles CVS: Regular rate and rhythm, normal S1 and S2, no gallops, no murmurs, no rubs ABDOMEN: Soft, nontender. No hepatosplenomegaly, normal bowel sounds, no guarding or rigidity. EXTREMITIES: No clubbing, 2+ edema in right lower extremity, 1+ in the left lower extremity and no cyanosis, 2+ pulses and upper and lower extremities. MUSCULOSKELETAL: Muscle strength and tone normal. SPINE: No scoliosis or deformity SKIN: No rashes CENTRAL NERVOUS SYSTEM: No focal deficits, tone is normal in all 4 extremities. PSYCHIATRIC: Alert and oriented -3. Appropriate affect. Intact judgment and insight. - Labs CBC & Chem 7: 08/18/19 09:08/18/19 09: Labs: Abnormal Lab Results - Last 24 Hours (Table) 08/18/19 08/18/19 Range/Units :17 08: RDW 17.1 H (11.5-15.5) % Potassium 3.0 L (3.5-5.1) mmol/L Chloride 82 L (98-107) mmol/L Carbon Dioxide 45 H* (22-30) mmol/L BUN 21 H (9-20) mg/dL Assessment and Plan Assessment: Assessment: #1. Recurrent loculated right-sided pleural effusion, status post right-sided thoracentesis during previous admission on 08/07/2019 with negative cytology, and cultures, and fluid was transudative in nature. ProBNP is negative, the etiology of the pleural effusion is unknown. Repeat thoracentesis 08/17/2019 only found 20 ML's of fluid drained. #2. Elevated d-dimer, CT angios chest negative for evidence of pulmonary embolism, patient is on chronic anticoagulation #3. Morbid obesity with a BMI of 61.3, patient is status post gastric sleeve for morbid obesity #4. Obstructive sleep apnea #5. History of DVT and pulmonary embolism on Xarelto #6. Paroxysmal atrial fibrillation currently in sinus rhythm #7. Diabetes mellitus type 2 #8. COPD #9. Hyperlipidemia #10. Osteoarthritis/scoliosis of the spine, chronic difficulties with mobility related to morbid obesity and multiple orthopedic surgeries #11. Previous history of C. diff colitis #12. Gait dysfunction, patient is bedridden on a regular basis #13. Generalized weakness #14. Chronic pain #15. History of depression/bipolar disorder #16. History of pseudoseizures Plan: The patient was seen and evaluated by Dr. Rondon. He is continued on a Lasix drip at 10 mg per hour. Potassium replacement. We'll continue with current treatment plan. The patient is is requesting to go home as he is uncomfortable in the bed. He also states he would most likely be back as most of his health conditions are chronic in nature. We'll leave it up to medicine. We will see the patient on as-needed basis. I, the cosigning physician, performed a history & physical examination of the patient. Lungs sounds with crackles, dullness in the right lung base. Maintaini ng good O2 saturations in the 90s on 2 L/m per nasal cannula. I discussed the assessment and plan of care with my nurse practitioner, Goldie Guardado. I attest to the above note as dictated by her.
[2019-08-18] MEDS ORDERED: POTASSIUM CHLORIDE ER 20 MEQ TAB.ER PO STA (12:23)
--- NOTE | 2019-08-18 12:45 | P.DS ---
Providers Date of admission: 08/18/19 08:32 Expected date of discharge: 08/18/19 Attending physician: Alejandra Mak MD Consults: 08/16/19 02:36 Consult Physician Routine Consulting Provider: Ynes Hendrickson Consult Reason/Comments: Right plural effusion Do you want consulting provider notified?: Yes Primary care physician: [facility] Course: The patient is a 58-year-old male with a PMH of mild diastolic chf, chronic hypercapnic respiratory failure, paroxysmal afib (on Xarelto), pseudoseizures, morbid obesity, sleeve gastrectomy, bedbound M, uses a hospital bed at home w/ a Marah lift, COPD, diabetes mellitus, anxiety, depression, and bipolar disorder who presented to the ED with complaints of chest pain and SOB. He notes that the pain started yesterday, is located in the R lower chest, constant, 5/10, with no alleviating or exacerbating features. Of note, the patient was recently admitted on 08/04/19 for chest pain and SOB when he was found to have a large R sided pleural effusion for which he underwent thoracentesis. Denying nausea, vomiting, palpitations. Denied diarrhea or abdominal pain. Denied fever, chills, or cough. He underwent an extensive evaluation in the ED w/ a Chest CTA showing very large R sided pleural effusion w/ RLL atelectasis. EKG as reviewed by me revealed NSR @ 85 bpm w/ IRBBB and without ST-T wave changes noted. Laboratory evaluation and revealed a WBC count of 8.8, hemoglobin of 11.6, platelets 330, sodium 137, potassium 3.7, CO2 39, BUN 20, Cr 0.64, Troponin < 0.012, and BNP 80. Patient was admitted to the medicine service for chest pain w/ recurrent R sided pleural effusion. Pulmonology was consulted and recommended ultrasound of the chest. Due to the loculated nature of the pleural effusion, INR was consulted. Patient underwent thoracentesis under IR but only 20 mL was able to be drained on 08/17/2019. Repeat chest x-ray showed stable right-sided pleural effusion. Patient was started on a Lasix drip for his pleural effusion. Pulmonology cleared the patient for discharge on 08/18/2019. Patient was saturating high 90s on 2 L NC, home O2. Patient was seen and examined. No acute events overnight. Patient reports slight improvement in his breathing since admission. Patient is looking forward to going home. He denies any chest pain, shortness of breath or palpitations. No nausea or vomiting. No fever or chills. General: [non toxic], [no distress], [appears at stated age] Derm: [warm], [dry] Head: [atraumatic], [normocephalic], [symmetric] Eyes: [EOMI], [no lid lag], [anicteric sclera] Mouth: [no lip lesion], [mucus membranes moist] Cardiovascular: [S1S2 reg], [no murmur] Lungs: [Decreased breath sounds bilateral especially at the bases], [no rhonchi, no rales] , [no accessory muscle use] Abdominal: [soft], [nontender to palpation], [no guarding], [no appreciable organomegaly] Ext: [no gross muscle atrophy], [no edema], [no contractures] Neuro: [no focal neuro deficits] Psych: [Alert], [oriented], [appropriate affect] Assessment and Plan Dyspnea likely related to recurrent pleural effusion Elevated bicarbonate, likely compensation from hypercapnic respiratory failure Hypokalemia Paroxysmal atrial fibrillation with history of PE and DVT COPD, stable Type 2 diabetes mellitus Morbid obesity with BMI 63.5 Thoracentesis performed by IR yesterday. 20 mL serous sanguinous fluid drained. Repeat chest x-ray stable. Plans: Albuterol neb as needed for shortness of breath and wheezing. DC Lasix drip to by mouth for discharge. Follow pulmon ology recommendations. Repeat chest x-ray in 3 days and follow pulmonology outpatient. Bicarbonate of 45. Likely compensation from hypercapnic respiratory failure. Plans: Nocturnal BiPAP. No respiratory distress, no need for a PEG. Potassium 3.0. Plans: Replace via protocol. Repeat in the afternoon. Plans: Rate control with diltiazem. Xarelto for anticoagulation. Plans: Albuterol neb as needed for shortness of breath and wheezing. [id number] glucose 97. Plans: Hold insulin sliding scale for now. Regular Accu-Cheks. Hypoglycemic precautions. Bariatric surgery in the past. Plans: Structured weight loss program. [Patient admitted for recurrent pleural effusion. Thoracentesis performed by IR yesterday, 20 mL drained. Pulmonology cleared. Repeat potassium, DC if normalized this afternoon.] Pertinent Studies: Chest x-ray, chest CTA, chest ultrasound Procedures: Thoracentesis by IR Patient Condition at Discharge: Stable Plan - Discharge Summary Discharge Rx Participant: No New Discharge Prescriptions: New RX: Albuterol Nebulized [Ventolin Nebulized] 2.5 mg INHALATION Q6H #60 nebu Continue RX: OLANZapine [ZyPREXA] 20 mg PO HS RX: Rivaroxaban [Xarelto] 20 mg PO DAILY RX: HYDROcodone/APAP 5-325MG [[place] 5-325] 1 tab PO Q6H PRN PRN Reason: Pain RX: Gabapentin [Neurontin] 600 mg PO DAILY RX: busPIRone HCl [Buspar] 5 mg PO BID RX: Diltiazem HCl 30 mg PO Q6H RX: DULoxetine HCL [Cymbalta] 40 mg PO DAILY RX: Atorvastatin [Lipitor] 10 mg PO HS RX: Ergocalciferol (Vitamin D2) [Vitamin D2] 50,000 unit PO WE RX: Lidocaine 5% Patch [Lidoderm 5% Patch] 1 patch TOPICAL DAILY RX: Hydrocortisone [Cortef] 10 mg PO BID RX: Albuterol Inhaler [Ventolin Hfa Inhaler] 2 puff INHALATION RT-Q6H PRN PRN Reason: Shortness Of Breath RX: Tiotropium 18 Mcg/Puff [Spiriva] 1 puff INHALATION RT-DAILY RX: Melatonin 5 mg PO HS RX: Aspirin EC [Ecotrin Low Dose] 81 mg PO DAILY RX: Potassium Chloride ER [K-Dur 20] 20 meq PO DAILY #30 tab RX: Furosemide [Lasix] 40 mg PO BID #60 tab Discharge Medication List RX: OLANZapine [ZyPREXA] 20 mg PO HS 03/18/19 [History] RX: Gabapentin [Neurontin] 600 mg PO DAILY 07/14/19 [History] RX: HYDROcodone/APAP 5-325MG [[place] 5-325] 1 tab PO Q6H PRN 07/14/19 [History] RX: Rivaroxaban [Xarelto] 20 mg PO DAILY 07/14/19 [History] RX: DULoxetine HCL [Cymbalta] 40 mg PO DAILY 07/15/19 [History] RX: Diltiazem HCl 30 mg PO Q6H 07/15/19 [History] RX: busPIRone HCl [Buspar] 5 mg PO BID 07/15/19 [History] RX: Albuterol Inhaler [Ventolin Hfa Inhaler] 2 puff INHALATION RT-Q6H PRN 08/03/19 [History] RX: Aspirin EC [Ecotrin Low Dose] 81 mg PO DAILY 08/03/19 [History] RX: Atorvastatin [Lipitor] 10 mg PO HS 08/03/19 [History] RX: Ergocalciferol (Vitamin D2) [Vitamin D2] 50,000 unit PO WE 08/03/19 [History] RX: Hydrocortisone [Cortef] 10 mg PO BID 08/03/19 [History] RX: Lidocaine 5% Patch [Lidoderm 5% Patch] 1 patch TOPICAL DAILY 08/03/19 [History] RX: Melatonin 5 mg PO HS 08/03/19 [History] RX: Tiotropium 18 Mcg/Puff [Spiriva] 1 puff INHALATION RT-DAILY 08/03/19 [History] RX: Potassium Chloride ER [K-Dur 20] 20 meq PO DAILY #30 tab 08/07/19 [Rx] RX: Albuterol Nebulized [Ventolin Nebulized] 2.5 mg INHALATION Q6H #60 nebu 08/18/19 [Rx] RX: Furosemide [Lasix] 40 mg PO BID #60 tab 08/18/19 [Rx] Follow up Appointment(s)/Referral(s): [facility], [NON-STAFF] - 1 Week Hugo Bailey MD [Primary Care Provider] - 1-2 days Ralph Rondon DO [Doctor of Osteopathic Medicine] - 1 Week Ambulatory/Diagnostic Orders: XR chest 2V [RAD.AMB] Time Frame: 3 Days, Location: None Selected Activity/Diet/Wound Care/Special Instructions: Diet: Low-salt Follow-up PCP within 1-2 days of discharge. Follow-up with pulmonology within 1 week of discharge. Please repeat a chest x-ray within 3 days. Follow-up with your PCP for the results. Take all medications as advised. Discharge Disposition: HOME SELF-CARE
[2019-08-18 15:55] VITALS: PULSE 84
[2019-08-18] MEDS ORDERED: FUROSEMIDE 40 MG TAB PO SCH (16:00)
== END 2019-08-18 19:00 | disposition home health service (06) | DRG 187 ==
LOC: EC 20:25 → 3NMEDONC 08-16 02:38 → OBSVTOIN 08-18 08:32
PROVIDERS: ADMIT Internal Medicine; ATTEND Internal Medicine
PROC: 0W993ZZ Drainage of Right Pleural Cavity, Percutaneous Approach (ICD-10-PCS; principal; 2019-08-17)
DX: J90 Pleural effusion, not elsewhere classified (principal); J96.12 Chronic respiratory failure with hypercapnia; I50.32 Chronic diastolic (congestive) heart failure; Z68.44 Body mass index [BMI] 60.0-69.9, adult; J98.11 Atelectasis; I13.0 Hypertensive heart and chronic kidney disease with heart failure and stage 1 through stage 4 chronic kidney disease, or unspecified chronic kidney disease; E11.22 Type 2 diabetes mellitus with diabetic chronic kidney disease; E66.01 Morbid (severe) obesity due to excess calories; M41.9 Scoliosis, unspecified; F25.9 Schizoaffective disorder, unspecified; N18.3 Chronic kidney disease, stage 3 (moderate); I48.0 Paroxysmal atrial fibrillation; J44.9 Chronic obstructive pulmonary disease, unspecified; G89.29 Other chronic pain; E87.6 Hypokalemia; E78.5 Hyperlipidemia, unspecified; G47.33 Obstructive sleep apnea (adult) (pediatric); M19.90 Unspecified osteoarthritis, unspecified site; R26.9 Unspecified abnormalities of gait and mobility; K21.9 Gastro-esophageal reflux disease without esophagitis; K44.9 Diaphragmatic hernia without obstruction or gangrene; F41.0 Panic disorder [episodic paroxysmal anxiety]; Z79.82 Long term (current) use of aspirin; Z79.01 Long term (current) use of anticoagulants; Z79.52 Long term (current) use of systemic steroids; Z79.899 Other long term (current) drug therapy; Z86.73 Personal history of transient ischemic attack (TIA), and cerebral infarction without residual deficits; Z86.718 Personal history of other venous thrombosis and embolism; Z86.711 Personal history of pulmonary embolism; Z85.828 Personal history of other malignant neoplasm of skin; Z86.14 Personal history of Methicillin resistant Staphylococcus aureus infection; Z96.641 Presence of right artificial hip joint; Z98.84 Bariatric surgery status; Z87.891 Personal history of nicotine dependence; Z86.19 Personal history of other infectious and parasitic diseases; Z74.01 Bed confinement status; Z86.69 Personal history of other diseases of the nervous system and sense organs; Z87.01 Personal history of pneumonia (recurrent); Z98.890 Other specified postprocedural states; Z88.1 Allergy status to other antibiotic agents; Z88.5 Allergy status to narcotic agent; Z88.8 Allergy status to other drugs, medicaments and biological substances; Z80.1 Family history of malignant neoplasm of trachea, bronchus and lung
CPT/HCPCS: 32555; 36415; 71045; 71046; 71275; 76604; 80048; 80053; 82150; 83690; 83735; 83880; 84132; 84145; 84484; 85025; 85379; 85610; 85730; 93005; 94640; 99285

== ENCOUNTER 2019-08-27 01:21 | Emergency (ER) | payer MEDICARE, BC ==
[2019-08-27 01:30] VITALS: RESP 18
[2019-08-27 02:10] LABS: Basophils # (A) 0.1 k/uL (0-0.2); Basophils % (A) 1 %; Eosinophils # (A) 0.3 k/uL (0-0.7); Eosinophils % (A) 4 %; HGB 11.6 gm/dL (13.0-17.5); Hypochromasia Slight; Lymphocytes # (A) 1.1 k/uL (1.0-4.8); Lymphocytes % (A) 14 %; MCH 26.9 pg (25.0-35.0); MCHC 31.4 g/dL (31.0-37.0); MCV 85.4 fL (80.0-100.0); Mean Platelet Volume 7.2; Monocytes # (A) 0.5 k/uL (0-1.0); Monocytes % (A) 6 %; Neutrophils # (A) 5.6 k/uL (1.3-7.7); Neutrophils % (A) 74 %; Platelet Count 309 k/uL (150-450); RBC 4.33 m/uL (4.30-5.90); RDW 15.4 % (11.5-15.5); WBC 7.6 k/uL (3.8-10.6)
[2019-08-27 02:18] LABS: ALT 25 U/L (21-72); AST 19 U/L (17-59); African American GFR (CKD) >90 (>60 ml/min/1.73 sqM); Albumin 3.6 g/dL (3.5-5.0); Alkaline Phosphatase 85 U/L (38-126); Blood Urea Nitrogen 20 mg/dL (9-20); Calcium 9.9 mg/dL (8.4-10.2); Chloride 88 mmol/L (98-107); Glucose 167 mg/dL (74-99); Potassium 3.9 mmol/L (3.5-5.1); Sodium 138 mmol/L (137-145); Total Bilirubin 0.4 mg/dL (0.2-1.3); Total Protein 6.4 g/dL (6.3-8.2)
[2019-08-27 02:22] LABS: Partial Thromboplastin Time 32.4 sec (22.0-30.0); Prothrombin Time 10.8 sec (9.0-12.0)
[2019-08-27 02:24] LABS: Anion Gap 9 mmol/L
--- NOTE | 2019-08-27 02:27 | XR ---
EXAMINATION TYPE: XR chest 2V DATE OF EXAM: 08/27/2019 COMPARISON: 08/18/2019 HISTORY: Difficulty breathing TECHNIQUE: Frontal and lateral views of the chest are obtained. FINDINGS: There is large right pleural effusion. Left lung is fairly clear. Heart is enlarged. There is no gross heart failure. IMPRESSION: Large right pleural effusion unchanged compared to old exam. No heart failure seen.
[2019-08-27 02:33] LABS: Carbon Dioxide 41 mmol/L (22-30)
[2019-08-27 03:07] VITALS: BP 128/75; PULSE 69; TEMP 98
--- NOTE | 2019-08-27 03:42 | ED ---
SOB HPI - General Chief Complaint: Shortness of Breath Stated Complaint: SOB Time Seen by Provider: 08/27/19 01:51 Source: patient, EMS - History of Present Illness Initial Comments: 58-year-old male patient with multiple chronic medical conditions presents to the emergency department today for evaluation of chest tightness. Patient states he was admitted recently for right pleural effusion. States that he has had thoracentesis 2 times in the past with drainage of approximately 1 L from the lung. Patient states that over the last 2-3 days he has noticed his chest is becoming increasingly tight. States he is not having difficulty breathing. Denies any chest pain. States that this is felt similar to when he needed drainage in the past. He states he does have a cough with no sputum production. He denies fever or chills. Denies any nausea, vomiting, Patient, or diarrhea. States he is currently taking 80 mg of Lasix daily, states the swelling is much improved in his lower extremities. States Dr. Rondon outpatient for pulmonology. Patient denies any recent rash, back pain, numbness, tingling, dizziness, weakness, hematuria, dysuria, urinary urgency, urinary frequency, headache, visual changes, or any other complaints. - Related Data Home Medications Medication Instructions Recorded Confirmed OLANZapine [ZyPREXA] 20 mg PO HS 03/18/19 08/15/19 Gabapentin [Neurontin] 600 mg PO DAILY 07/14/19 08/15/19 HYDROcodone/APAP 5-325MG [[place] 1 tab PO Q6H PRN 07/14/19 08/15/19 5-325] Rivaroxaban [Xarelto] 20 mg PO DAILY 07/14/19 08/15/19 DULoxetine HCL [Cymbalta] 40 mg PO DAILY 07/15/19 08/15/19 Diltiazem HCl 30 mg PO Q6H 07/15/19 08/15/19 busPIRone HCl [Buspar] 5 mg PO BID 07/15/19 08/15/19 Albuterol Inhaler [Ventolin Hfa 2 puff INHALATION RT-Q6H PRN 08/03/19 08/15/19 Inhaler] Aspirin EC [Ecotrin Low Dose] 81 mg PO DAILY 08/03/19 08/15/19 Atorvastatin [Lipitor] 10 mg PO HS 08/03/19 08/15/19 Ergocalciferol (Vitamin D2) 50,000 unit PO WE 08/03/19 08/15/19 [Vitamin D2] Hydrocortisone [Cortef] 10 mg PO BID 08/03/19 08/15/19 Lidocaine 5% Patch [Lidoderm 5% 1 patch TOPICAL DAILY 08/03/19 08/15/19 Patch] Melatonin 5 mg PO HS 08/03/19 08/15/19 Tiotropium 18 Mcg/Puff [Spiriva] 1 puff INHALATION RT-DAILY 08/03/19 08/15/19 Previous Rx's Medication Instructions Recorded Potassium Chloride ER [K-Dur 20] 20 meq PO DAILY #30 tab 08/07/19 Albuterol Nebulized [Ventolin 2.5 mg INHALATION Q6H #60 nebu 08/18/19 Nebulized] Furosemide [Lasix] 40 mg PO BID #60 tab 08/18/19 Allergies Allergy/AdvReac Type Severity Reaction Status Date / Time codeine Allergy Severe Swelling Verified 08/15/19 20:58 OF THROAT WITH COUGH SYRUP chlorpheniramine Allergy Unknown Verified 08/15/19 20:58 febuxostat [From Uloric] Allergy Unknown Verified 08/15/19 20:58 phenylephrine Allergy Unknown Verified 08/15/19 20:58 piperacillin sodium Allergy Unknown Verified 08/15/19 20:58 [From Zosyn] tazobactam sodium Allergy Unknown Verified 08/15/19 20:58 [From Zosyn] Review of Systems ROS Statement: Those systems with pertinent positive or pertinent negative responses have been documented in the HPI. ROS Other: All systems not noted in ROS Statement are negative. Past Medical History Past Medical History: Atrial Fibrillation, Asthma, Cancer, Heart Failure, COPD, CVA/TIA, Diabetes Mellitus, Deep Vein Thrombosis (DVT), GERD/Reflux, GI Bleed, Hyperlipidemia, Hypertension, Osteoarthritis (OA), Pneumonia, Pulmonary Embolus (PE), Renal Disease, Respiratory Disorder, Sleep Apnea/CPAP/BIPAP Additional Past Medical History / Comment(s): Pt recently admitted to [facility] on 08/05/19 with acute on chronic CHF/abnormal ECHO-see report/paroxysmal afib/bilateral pleural effusions with R sided thoracentesis. Other hx: Pt denies diabetes stating he has hypoglycemia/pt recently transfered to [facility] for endocrinology consultation-states he wasn't told anything new, states he has bilateral feet neuropathy, recent soft watery stools that have resolved, colitis, chronic diffuse abdominal pain, chronic generalized pain, fluid retention, bedbound, lower GI bleed, hiatal hernia, DVT in leg which traveled to his lung, DDD, scoliosis, ALEXIS without device, CKD stage III, pseudoseizures with past extensive work up thru [facility], basal cell skin cancer removed from face. History of Any Multi-Drug Resistant Organisms: MRSA Date of last positivie culture/infection: AUG 2014 MDRO Source:: NASAL Past Surgical History: Appendectomy, Bariatric Surgery, Heart Catheterization, Hernia Repair, Joint Replacement, Orthopedic Surgery Additional Past Surgical History / Comment(s): Gastric sleeve in 2014, L inguinal hernia repair, R elbow surgery x2, total R hip arthroplasty, L knee arthroscopy/ACL surgery, R ankle ORIF, EGD, colonoscopy, basal cell skin cancer from face, surgery for varicele. Past Anesthesia/Blood Transfusion Reactions: Previous Problems w/ Anesthesia Additional Past Anesthesia/Blood Transfusion Reaction / Comment(s): STATES HE WAS TOLD HE WAS A DIFFICULT INTUBATION WITH GASTRIC SLEEVE SURGERY, Past Psychological History: Anxiety, Depression, Panic Disorder, Schizoaffective Disorder Smoking Status: Former smoker Past Alcohol Use History: None Reported Past Drug Use History: None Reported - Past Family History Father Family Medical History: Cancer Additional Family Medical History / Comment(s): LUNG CA Mother Additional Family Medical History / Comment(s): Mother of an infection. General Exam General appearance: alert, in no apparent distress, other (This is a well- developed, well-nourished adult male patient in no acute distress. Vital signs upon presentation are temperature 98.3F, pulse 75, respirations 18, blood pressure 124/74, pulse ox 93% on room air.) Eye exam: Present: normal appearance, PERRL, EOMI. Absent: scleral icterus, conjunctival injection, periorbital swelling ENT exam: Present: normal exam, normal oropharynx, mucous membranes moist Respiratory exam: Present: decreased breath sounds (Right posterior lower lobe). Absent: normal lung sounds bilaterally, respiratory distress, wheezes, rales, rhonchi, stridor Cardiovascular Exam: Present: regular rate, normal rhythm, normal heart sounds. Absent: systolic murmur, diastolic murmur, rubs, gallop, clicks GI/Abdominal exam: Present: soft, normal bowel sounds. Absent: distended, tenderness, guarding, rebound, rigid Neurological exam: Present: alert, oriented X3, CN II-XII intact Psychiatric exam: Present: normal affect, normal mood Skin exam: Present: warm, dry, intact, normal color. Absent: rash Course Vital Signs 08/27/19 08/27/19 08/27/19 01:25 01:31 03:07 Temperature 98.3 F 98 F Pulse Rate 75 69 Respiratory 18 18 18 Rate Blood Pressure 124/74 128/75 O2 Sat by Pulse 93 L 95 Oximetry Medical Decision Making - Lab Data Result diagrams: 08/27/19 01:35 08/27/19 01:35 Lab Results 08/27/19 08/27/19 08/27/19 Range/Units 01:35 01:35 01:35 WBC 7.6 (3.8-10.6) k/uL RBC 4.33 (4.30-5.90) m/uL Hgb 11.6 L (13.0-17.5) gm/dL Hct 37.0 L (39.0-53.0) % MCV 85.4 (80.0-100.0) fL MCH 26.9 (25.0-35.0) pg MCHC 31.4 (31.0-37.0) g/dL RDW 15.4 (11.5-15.5) % Plt Count 309 (150-450) k/uL Neutrophils % 74 % Lymphocytes % 14 % Monocytes % 6 % Eosinophils % 4 % Basophils % 1 % Neutrophils # 5.6 (1.3-7.7) k/uL Lymphocytes # 1.1 (1.0-4.8) k/uL Monocytes # 0.5 (0-1.0) k/uL Eosinophils # 0.3 (0-0.7) k/uL Basophils # 0.1 (0-0.2) k/uL Hypochromasia Slight PT 10.8 (9.0-12.0) sec INR 1.0 (<1.2) APTT 32.4 H (22.0-30.0) sec Sodium 138 (137-145) mmol/L Potassium 3.9 (3.5-5.1) mmol/L Chloride 88 L (98-107) mmol/L Carbon Dioxide 41 H* (22-30) mmol/L Anion Gap 9 mmol/L BUN 20 (9-20) mg/dL Creatinine 0.83 (0.66-1.25) mg/dL Est GFR (CKD-EPI)AfAm >90 (>60 ml/min/1.73 sqM) Est GFR (CKD-EPI)NonAf >90 (>60 ml/min/1.73 sqM) Glucose 167 H (74-99) mg/dL Calcium 9.9 (8.4-10.2) mg/dL Total Bilirubin 0.4 (0.2-1.3) mg/dL AST 19 (17-59) U/L ALT 25 (21-72) U/L Alkaline Phosphatase 85 (38-126) U/L Troponin I (0.000-0.034) ng/mL Total Protein 6.4 (6.3-8.2) g/dL Albumin 3.6 (3.5-5.0) g/dL 08/27/19 Range/Units 01:35 WBC (3.8-10.6) k/uL RBC (4.30-5.90) m/uL Hgb (13.0-17.5) gm/dL Hct (39.0-53.0) % MCV (80.0-100.0) fL MCH (25.0-35.0) pg MCHC (31.0-37.0) g/dL RDW (11.5-15.5) % Plt Count (150-450) k/uL Neutrophils % % Lymphocytes % % Monocytes % % Eosinophils % % Basophils % % Neutrophils # (1.3-7.7) k/uL Lymphocytes # (1.0-4.8) k/uL Monocytes # (0-1.0) k/uL Eosinophils # (0-0.7) k/uL Basophils # (0-0.2) k/uL Hypochromasia PT (9.0-12.0) sec INR (<1.2) APTT (22.0-30.0) sec Sodium (137-145) mmol/L Potassium (3.5-5.1) mmol/L Chloride (98-107) mmol/L Carbon Dioxide (22-30) mmol/L Anion Gap mmol/L BUN (9-20) mg/dL Creatinine (0.66-1.25) mg/dL Est GFR (CKD-EPI)AfAm (>60 ml/min/1.73 sqM) Est GFR (CKD-EPI)NonAf (>60 ml/min/1.73 sqM) Glucose (74-99) mg/dL Calcium (8.4-10.2) mg/dL Total Bilirubin (0.2-1.3) mg/dL AST (17-59) U/L ALT (21-72) U/L Alkaline Phosphatase (38-126) U/L Troponin I <0.012 (0.000-0.034) ng/mL Total Protein (6.3-8.2) g/dL Albumin (3.5-5.0) g/dL - EKG Data -: EKG Interpreted by Me EKG Comments: EKG obtained at 02 45 shows normal sinus rhythm with a ventricular rate of 66, KS interval 168, QR druze 124, QT 432, QTc 452. No evidence of ST elevation or depression. - Radiology Data Radiology results: report reviewed, image reviewed Two-view x-ray of the chest is obtained. Report was reviewed in its entirety. Impression by Dr. Pena shows large right pleural effusion unchanged compared to old exam. No heart failure seen. Disposition Clinical Impression: Chest tightness Disposition: HOME SELF-CARE Condition: Good Instructions (If sedation given, give patient instructions): Chest Pain (ED) Additional Instructions: Follow up with your forensic identification specialist for further evaluation. Follow-up with your primary care physician for recheck in 1-2 days. Return to the emergency department immediately for any new, worsening, or concerning symptoms. Is patient prescribed a controlled substance at d/c from ED?: No Referrals: Hugo Bailey MD [Primary Care Provider] - 1-2 days Time of Disposition: 03:42
== END 2019-08-27 04:38 | disposition home or self-care (01) ==
LOC: EC 01:21
DX: R07.89 Other chest pain (principal); R09.89 Other specified symptoms and signs involving the circulatory and respiratory systems; R05 Cough; I48.0 Paroxysmal atrial fibrillation; J44.9 Chronic obstructive pulmonary disease, unspecified; I13.0 Hypertensive heart and chronic kidney disease with heart failure and stage 1 through stage 4 chronic kidney disease, or unspecified chronic kidney disease; I50.9 Heart failure, unspecified; N18.3 Chronic kidney disease, stage 3 (moderate); E78.5 Hyperlipidemia, unspecified; M19.90 Unspecified osteoarthritis, unspecified site; G62.9 Polyneuropathy, unspecified; F32.9 Major depressive disorder, single episode, unspecified; F41.9 Anxiety disorder, unspecified; Z87.891 Personal history of nicotine dependence; Z88.0 Allergy status to penicillin; Z88.5 Allergy status to narcotic agent; Z88.8 Allergy status to other drugs, medicaments and biological substances; Z79.01 Long term (current) use of anticoagulants; Z79.52 Long term (current) use of systemic steroids; Z79.82 Long term (current) use of aspirin; Z79.899 Other long term (current) drug therapy; Z86.73 Personal history of transient ischemic attack (TIA), and cerebral infarction without residual deficits; Z85.828 Personal history of other malignant neoplasm of skin; Z74.01 Bed confinement status; Z86.718 Personal history of other venous thrombosis and embolism; Z86.711 Personal history of pulmonary embolism; Z86.14 Personal history of Methicillin resistant Staphylococcus aureus infection; Z95.818 Presence of other cardiac implants and grafts; Z96.641 Presence of right artificial hip joint; Z87.09 Personal history of other diseases of the respiratory system; Z98.890 Other specified postprocedural states; Z80.1 Family history of malignant neoplasm of trachea, bronchus and lung
CPT/HCPCS: 36415; 71046; 80053; 84484; 85025; 85610; 85730; 93005; 99285

== ENCOUNTER 2019-09-06 21:46 | Inpatient (IN) | payer MEDICARE, BC ==
[2019-09-06] MEDS ORDERED: SODIUM CHLORIDE 0.9% 1,000 ML IV STA ×2 (22:10)
[2019-09-06] MEDS ORDERED: ALBUTEROL NEBULIZED 2.5 MG/3 ML INHALATION STA (22:17)
[2019-09-06 22:20] LABS: Basophils % (A) 1 %; Eosinophils # (A) 0.2 k/uL (0-0.7); Eosinophils % (A) 3 %; HCT 38.5 % (39.0-53.0); HGB 11.8 gm/dL (13.0-17.5); Hypochromasia Slight; Lymphocytes % (A) 13 %; MCH 27.6 pg (25.0-35.0); MCHC 30.6 g/dL (31.0-37.0); Mean Platelet Volume 7.1; Monocytes # (A) 0.5 k/uL (0-1.0); Monocytes % (A) 6 %; Neutrophils # (A) 5.9 k/uL (1.3-7.7); Neutrophils % (A) 76 %; Platelet Count 256 k/uL (150-450); RBC 4.28 m/uL (4.30-5.90); RDW 15.2 % (11.5-15.5); WBC 7.8 k/uL (3.8-10.6)
[2019-09-06 22:29] LABS: ALT 28 U/L (21-72); AST 22 U/L (17-59); African American GFR (CKD) >90 (>60 ml/min/1.73 sqM); Albumin 3.6 g/dL (3.5-5.0); Alkaline Phosphatase 107 U/L (38-126); Amylase 40 U/L (30-110); Blood Urea Nitrogen 22 mg/dL (9-20); Calcium 9.8 mg/dL (8.4-10.2); Chloride 88 mmol/L (98-107); Glucose 101 mg/dL (74-99); Magnesium 1.6 mg/dL (1.6-2.3); Potassium 3.9 mmol/L (3.5-5.1); Sodium 137 mmol/L (137-145); Total Bilirubin 0.4 mg/dL (0.2-1.3); Total Protein 6.4 g/dL (6.3-8.2)
[2019-09-06 22:35] LABS: Anion Gap 6 mmol/L; Prothrombin Time 10.6 sec (9.0-12.0)
[2019-09-06 22:36] LABS: Partial Thromboplastin Time 33.1 sec (22.0-30.0)
--- NOTE | 2019-09-06 22:36 | XR ---
EXAMINATION TYPE: XR chest 2V DATE OF EXAM: 09/06/2019 COMPARISON: 08/27/2019 HISTORY: Chest pain TECHNIQUE: Frontal and lateral views of the chest are obtained. FINDINGS: There is blunting of the right costophrenic angle related to moderate sized right pleural effusion. There is no heart failure. Left lung is fairly clear. There are chest leads. There are ches t leads. IMPRESSION: Large right pleural effusion unchanged. No heart failure seen.
[2019-09-06 22:41] LABS: Carbon Dioxide 43 mmol/L (22-30)
--- NOTE | 2019-09-06 23:58 | ED ---
Chest Pain HPI - General Chief Complaint: Chest Pain Stated Complaint: chest pain Time Seen by Provider: 09/06/19 21:59 Source: patient, EMS, RN notes reviewed, old records reviewed Mode of arrival: EMS - History of Present Illness Initial Comments: Patient is a 58-year-old male, states that he is bedbound, who presents [facility] department today with worsening difficulty in breathing chest pain and tightness. He reports he was here on the last week for similar complaints. Patient states that he has generalized weakness as well. Patient states that he has not been able to follow-up with his milker machine Dr. Ruano as of this time. Patient reports he has pain in the left and right lower portions of his chest. He states it does not feel like this is related to his heart. Patient states that he has the pain reaching under his rib and constant in nature. Patient reports he isn't taking his Lasix daily. He denies a specific sputum production. He did have thoracentesis for right pleural effusion removed twice in the past week and had 1 L of fluid removed. - Related Data Home Medications Medication Instructions Recorded Confirmed OLANZapine [ZyPREXA] 20 mg PO HS 03/18/19 08/15/19 Gabapentin [Neurontin] 600 mg PO DAILY 07/14/19 08/15/19 HYDROcodone/APAP 5-325MG [[place] 1 tab PO Q6H PRN 07/14/19 08/15/19 5-325] Rivaroxaban [Xarelto] 20 mg PO DAILY 07/14/19 08/15/19 DULoxetine HCL [Cymbalta] 40 mg PO DAILY 07/15/19 08/15/19 Diltiazem HCl 30 mg PO Q6H 07/15/19 08/15/19 busPIRone HCl [Buspar] 5 mg PO BID 07/15/19 08/15/19 Albuterol Inhaler [Ventolin Hfa 2 puff INHALATION RT-Q6H PRN 08/03/19 08/15/19 Inhaler] Aspirin EC [Ecotrin Low Dose] 81 mg PO DAILY 08/03/19 08/15/19 Atorvastatin [Lipitor] 10 mg PO HS 08/03/19 08/15/19 Ergocalciferol (Vitamin D2) 50,000 unit PO WE 08/03/19 08/15/19 [Vitamin D2] Hydrocortisone [Cortef] 10 mg PO BID 08/03/19 08/15/19 Lidocaine 5% Patch [Lidoderm 5% 1 patch TOPICAL DAILY 08/03/19 08/15/19 Patch] Melatonin 5 mg PO HS 08/03/19 08/15/19 Tiotropium 18 Mcg/Puff [Spiriva] 1 puff INHALATION RT-DAILY 08/03/19 08/15/19 Previous Rx's Medication Instructions Recorded Potassium Chloride ER [K-Dur 20] 20 meq PO DAILY #30 tab 08/07/19 Albuterol Nebulized [Ventolin 2.5 mg INHALATION Q6H #60 nebu 08/18/19 Nebulized] Furosemide [Lasix] 40 mg PO BID #60 tab 08/18/19 Allergies Allergy/AdvReac Type Severity Reaction Status Date / Time codeine Allergy Severe Swelling Verified 08/15/19 20:58 OF THROAT WITH COUGH SYRUP chlorpheniramine Allergy Unknown Verified 08/15/19 20:58 febuxostat [From Uloric] Allergy Unknown Verified 08/15/19 20:58 phenylephrine Allergy Unknown Verified 08/15/19 20:58 piperacillin sodium Allergy Unknown Verified 08/15/19 20:58 [From Zosyn] tazobactam sodium Allergy Unknown Verified 08/15/19 20:58 [From Zosyn] Review of Systems ROS Statement: Those systems with pertinent positive or pertinent negative responses have been documented in the HPI. ROS Other: All systems not noted in ROS Statement are negative. EKG Findings - EKG Comments: EKG Findings:: EKG performed at 2157 shows normal sinus rhythm nonspecific intraventricular conduction delay. Borderline EKG. Ventricular rate of 79 bpm. Verbal is 152 ms. QS duration is 112 ms. QT QTc is 360/421 ms. Past Medical History Past Medical History: Atrial Fibrillation, Asthma, Cancer, Heart Failure, COPD, CVA/TIA, Diabetes Mellitus, Deep Vein Thrombosis (DVT), GERD/Reflux, GI Bleed, Hyperlipidemia, Hypertension, Osteoarthritis (OA), Pneumonia, Pulmonary Embolus (PE), Renal Disease, Respiratory Disorder, Sleep Apnea/CPAP/BIPAP Additional Past Medical History / Comment(s): Pt recently admitted to [facility] on 08/05/19 with acute on chronic CHF/abnormal ECHO-see report/paroxysmal afib/bilateral pleural effusions with R sided thoracentesis. Other hx: Pt denies diabetes stating he has hypoglycemia/pt recently transfered to [facility] for endocrinology consultation-states he wasn't told anything new, states he has bilateral feet neuropathy, recent soft watery stools that have resolved, colitis, chronic diffuse abdominal pain, chronic generalized pain, fluid retention, bedbound, lower GI bleed, hiatal hernia, DVT in leg which traveled to his lung, DDD, scoliosis, ALEXIS without device, CKD stage III, pseudoseizures with past extensive work up thru [facility], basal cell skin cancer removed from face. History of Any Multi-Drug Resistant Organisms: MRSA Date of last positivie culture/infection: AUG 2014 MDRO Source:: NASAL Past Surgical History: Appendectomy, Bariatric Surgery, Heart Catheterization, Hernia Repair, Joint Replacement, Orthopedic Surgery Additional Past Surgical History / Comment(s): Gastric sleeve in 2013, L inguinal hernia repair, R elbow surgery x2, total R hip arthroplasty, L knee arthroscopy/ACL surgery, R ankle ORIF, EGD, colonoscopy, basal cell skin cancer from face, surgery for varicele. Past Anesthesia/Blood Transfusion Reactions: Previous Problems w/ Anesthesia Additional Past Anesthesia/Blood Transfusion Reaction / Comment(s): STATES HE WAS TOLD HE WAS A DIFFICULT INTUBATION WITH GASTRIC SLEEVE SURGERY, Past Psychological History: Anxiety, Depression, Panic Disorder, Schizoaffective Disorder Smoking Status: Former smoker Past Alcohol Use History: None Reported Past Drug Use History: None Reported - Past Family History Father Family Medical History: Cancer Additional Family Medical History / Comment(s): LUNG CA Mother Additional Family Medical History / Comment(s): Mother of an infection. General Exam - General Exam Comments Initial Comments: 58-year-old male. Morbidly obese. Patient is bedbound. Is resting comfortably in bed and appears in no distress. General appearance: alert, in no apparent distress Head exam: Present: atraumatic, normocephalic, normal inspection Eye exam: Present: normal appearance, PERRL, EOMI. Absent: scleral icterus, conjunctival injection, periorbital swelling ENT exam: Present: normal exam, mucous membranes moist Neck exam: Present: normal inspection. Absent: tenderness, meningismus, lymphadenopathy Respiratory exam: Present: normal lung sounds bilaterally, decreased breath sounds (Diminished lung sounds on the right.). Absent: respiratory distress, w heezes, rales, rhonchi, stridor Cardiovascular Exam: Present: regular rate, normal rhythm, normal heart sounds. Absent: systolic murmur, diastolic murmur, rubs, gallop, clicks GI/Abdominal exam: Present: soft, normal bowel sounds. Absent: distended, tenderness, guarding, rebound, rigid Extremities exam: Present: normal inspection, full ROM, normal capillary refill. Absent: tenderness, pedal edema, joint swelling, calf tenderness Back exam: Present: normal inspection Course Vital Signs 09/06/19 09/06/19 09/06/19 21:50 21:59 22:54 Temperature 98.2 F Pulse Rate 79 80 Pulse Rate [ 79 Poke In ] Respiratory 18 12 Rate Blood Pressure 120/69 O2 Sat by Pulse 96 Oximetry 09/06/19 09/06/19 23:02 23:53 Temperature Pulse Rate 78 79 Pulse Rate [ Poke In ] Respiratory 18 Rate Blood Pressure 115/59 O2 Sat by Pulse 98 Oximetry [facility] This is a 38-year-old male presents today for evaluation for difficulty breathing, complaining of severe right left sided chest pain. He reports that history of pleural effusions, this was drained by Dr. Rondon. He has not followed up outpatient only as of this time. Reports the pain is difficulty breathing is worsened. Patient was seen on August 07 and reports the pains been progressive since that time. Patient chest x-ray shows evidence of a large right-sided pleural effusion. Laboratory was reviewed relatively unremarkable. Troponin negative and BNP is within normal limits. I discussed the findings with the Patient. I discussed that with a continued effusion, worsened shortness of breath and pain we can have the Patient admitted for observation with consult to Dr. Rondon for possible thoracentesis again. Disposition Clinical Impression: Chest tightness, Fluid overload, Pleural effusion, right, Obesity, Immobility Disposition: ADMITTED IP TO THIS [facility] Condition: Stable Is patient prescribed a controlled substance at d/c from ED?: No Referrals: Hugo Bailey MD [Primary Care Provider] - 1-2 days Time of Disposition: 00:21
[2019-09-07] MEDS ORDERED: ALBUTEROL INHALER 60 PUFF/8 GM INHALER INHALATION PRN (00:11)
[2019-09-07 00:21] LABS: Glucose,Whole Blood 97 mg/dL (75-99)
[2019-09-07] MEDS ORDERED: MORPHINE SULFATE 4 MG/ML SYRINGE IV PRN (00:22)
[2019-09-07] MEDS ORDERED: ACETAMINOPHEN TAB 325 MG TAB PO PRN (00:22)
[2019-09-07] MEDS ORDERED: NALOXONE 0.4 MG/ML 1 ML VIAL IV PRN (00:22)
[2019-09-07] MEDS ORDERED: ONDANSETRON 4 MG/2 ML VIAL IVP PRN (00:22)
[2019-09-07] MEDS: SODIUM CHLORIDE 0.9% 1,000 ML IV SCH (01:46)
[2019-09-07] MEDS: ALBUTEROL NEBULIZED 2.5 MG/3 ML INHALATION SCH ×2 (05:22→08:04)
[2019-09-07] MEDS: DILTIAZEM ORAL 30 MG TAB PO SCH ×3 (05:50→17:19)
[2019-09-07] MEDS ORDERED: IPRATROPIUM 0.5 MG/2.5 ML NEBU INHALATION SCH (08:00)
[2019-09-07] MEDS ORDERED: IPRATROPIUM-ALBUTEROL 3 ML NEB ONE (08:07)
[2019-09-07] MEDS: IPRATROPIUM-ALBUTEROL 3 ML NEB INHALATION SCH ×4 (08:09→19:31)
[2019-09-07] MEDS ORDERED: RIVAROXABAN 20 MG TAB PO SCH (09:00)
[2019-09-07] MEDS ORDERED: ASPIRIN 81 MG ONE (09:34)
[2019-09-07] MEDS ORDERED: POTASSIUM CHLORIDE ER 20 MEQ TAB.ER PO ONE (09:35)
[2019-09-07] MEDS: GABAPENTIN 300 MG CAP PO SCH (09:37)
[2019-09-07] MEDS: POTASSIUM CHLORIDE ER 20 MEQ TAB.ER PO SCH (09:37)
[2019-09-07] MEDS: FUROSEMIDE 40 MG TAB PO SCH ×2 (09:37→20:50)
[2019-09-07] MEDS: HYDROCORTISONE 10 MG TAB PO SCH ×2 (09:37→20:49)
[2019-09-07] MEDS: ASPIRIN 81 MG PO SCH (09:37)
[2019-09-07] MEDS: busPIRone HCl 5 MG TAB PO SCH ×2 (09:37→20:50)
[2019-09-07] MEDS: DULoxetine HCL 20 MG CAPSULE.DR PO SCH (09:37)
[2019-09-07] MEDS: LIDOCAINE 5% PATCH TOPICAL SCH (09:40)
[2019-09-07] MEDS: HYDROcodone/APAP 5-325MG 1 EACH TAB PO PRN ×2 (09:45→20:49)
--- NOTE | 2019-09-07 10:04 | US ---
EXAMINATION TYPE: US chest DATE OF EXAM: 09/07/2019 COMPARISON: Radiograph 09/06/2019 CLINICAL HISTORY: 58-year-old male Markings for thoracentesis by pulmonary staff. Pleural effusion TECHNIQUE: Targeted ultrasound of the posterior lower bilateral hemithoraces findings: EXAM MEASUREMENTS: Right Pleural Effusion pocket size: 12.8 cm Right skin surface to fluid distance: 4.3 cm Left Pleural Effusion pocket size: no significant fluid collection seen Right side marked for possible thoracentesis outside the dept. Left side NOT marked for possible thoracentesis outside the dept. Pulmonologists are able to review the images in the patient?s EMR. IMPRESSIONS: Moderate to large right pleural effusion.
[2019-09-07] MEDS ORDERED: RX INFO: IV CONTRAST WAS GIVEN 1 EACH MISC MISCELLANE PRN (10:55)
[2019-09-07] MEDS: IBUPROFEN 400 MG TAB PO PRN (13:05)
--- NOTE | 2019-09-07 14:22 | CT ---
EXAMINATION TYPE: CT chest w con DATE OF EXAM: 09/07/2019 COMPARISON: 08/16/2019 HISTORY: 58-year-old male History of mass. TECHNIQUE: Contiguous axial scanning of the chest after the administration of 100 mL of Isovue M300. Coronal/sagittal reconstructions performed. CT DLP: 1113.4mGycm. Automatic exposure control utilized for a dose reduction. FINDINGS: Heart upper limits of normal in size without pericardial effusion. Mild scattered coronary vessel krish cifications are present. Aneurysmal aortic root at 4.4 cm. Bovine configuration to the aortic arch. No thoracic lymphadenopathy by CT size criteria. Large caliber to the main right and left pulmonary arteries are 3.6 and 2.0 cm, respectively, suggest ing underlying pulmonary hypertension. Focal mild patch of groundglass anterior left perihilar region, axial image 27. Calcified granuloma p eripheral left midlung, axial image 27. Continued moderate size right pleural effusion extending up to the apex. There is nearly complete rig ht lower lobar collapse. Some of the lateral basilar segment remains aerated. Are a few calcified gra nulomas within the collapsed portion of the lung. Small hiatal hernia. Postsurgical changes of gastrectomy. Asymmetric elevation right hemidiaphragm pr obably secondary to the volume loss. Bones: Accentuated midthoracic kyphosis with anterior and endplate spondylosis lower thoracic spine. IMPRESSION: 1. Relatively similar moderate to large right pleural effusion with adjacent right lower lobar collap se. Only a small portion of the lateral basilar segment of the right lower lobe remains aerated. 2. Small patch of groundglass in the anterior left perihilar region suggest a small infectious/inflam matory focus. 3. Underlying pulmonary arterial hypertension. 4. Aneurysmal aortic root at 4.4 cm. 5. Small hiatal hernia.
--- NOTE | 2019-09-07 19:15 | P.HPIM ---
History of Present Illness H&P Date: 09/07/19 Chief Complaint: Short of breath History of presenting complaint: This is a 58-year-old patient who follows with visiting physician Dr. Antelmo Steele. Patient has a rather extensive medical history. Patient presented increasing shortness of breath . Patient has not really walked since January of this year. Has a hospital bed at home. Chronic stable medical conditions include Diastolic CHF, paroxysmal atrial fibrillation, pseudoseizures with extensive work up including continuous EEG monitoring done at [facility] recently, morbid obesity, sleeve gastrectomy, COPD, diabetes mellitus,, bipolar disorder. Patient recently positive for C. diff.That failed vancomycin taper and was treated with Dificid. Patient also has bilateral pleural effusion on the large one on the right. In the beginning of July close to thousand cc were removed. Then attempted thoracentesis more recently. Patient now presents to the ER again with worsening difficulty breathing and some chest tightness. Also feels generalized weakness. No fever no chills. Has a dry cough. Again found of a significant left-sided pleural effusion. CT chest was done and ultrasound marked was done. Dr. Ruiz was consulted. Review of systems: GEN.: Tired EYES: None HEENT: None NECK: None RESPIRATORY: Short of breath CARDIOVASCULAR: As above GASTROINTESTINAL: None GENITOURINARY: None MUSCULOSKELETAL: None LYMPHATICS: None HEMATOLOGICAL: None PSYCHIATRY: Slightly anxious NEUROLOGICAL: Weakness in the legs Past medical history: To include Diastolic CHF EF 55-60%, paroxysmal atrial fibrillation, pseudoseizures with extensive work up including congestive EEG monitoring done at [facility] recently, morbid obesity, sleeve gastrectomy, COPD, diabetes mellitus, bipolar disorder. Recent C. diff -treated with Dificid Social history: Currently at home with his son. Has a hospital bed apparently has a Marah lift. Smoked from age of 15 stopped in 1998. Smoked a few cigarettes a day. Prior alcohol abuse. Stopped in 2012. Did do IV drug in the past. Family history: Lung cancer Physical examination: VITAL SIGNS: 98.2, 79, 18, 120/69, 96% on 2 L GENERAL: BMI 45.4, laying in bed. Tired EYES: Pupils equal. Conjunctiva normal. HEENT: External appearance of nose and ears normal, oral cavity grossly normal. NECK: Neck is short and thick, JVD unable to assess, mass not palpable. HEART: Heart sounds are distant, edema present. LUNGS: Respiratory rate increased, diminished breath sounds. ABDOMEN: Soft, nontender, liver spleen not palpable, no masses palpable. PSYCH: Tired but answering questions NEUROLOGICAL: Cranial nerves grossly intact; no facial asymmetry, decreased power in both lower extremity. LYMPHATICS: No lymph nodes palpable in the axilla and neck INVESTIGATIONS, reviewed in the clinical context: White count 7.8 hemoglobin 11.8 platelets 256 potassium 3.9 white count 43 bun 22 creatinine 0.70 ProBNP 76 Chest x-ray film personally reviewed by me-large right pleural effusion EKG tracing personally reviewed by me-normal sinus rhythm 2-D echocardiogram-severe concentric LVH, EF 60-65%, moderate tricuspid regurgitation Previous cytology of the fluid from a month ago shows negative for malignancy Assessment: -Recurrent acute on chronic large right-sided pleural effusion, symptomatic -Chronic congestive heart failure from gastric dysfunction EF 55-60% -Hypertensive heart disease -Paroxysmal atrial fibrillation currently in sinus rhythm, chronically on 0 to -suedo-seizures with extensive workup at [facility] in the past -Morbid obesity BMI 45.4 -Diabetes mellitus type 2 -Bipolar disorder -Medical debility Plan: Home medications resumed. Dr. Ruiz was consulted. He has consulted cardiothoracic for a possible pigtail catheter. Patient is on Xarelto. Care was discussed with the patient. Questions were answered.. Past Medical History Past Medical History: Atrial Fibrillation, Asthma, Cancer, Heart Failure, COPD, CVA/TIA, Diabetes Mellitus, Deep Vein Thrombosis (DVT), GERD/Reflux, GI Bleed, Hyperlipidemia, Hypertension, Osteoarthritis (OA), Pneumonia, Pulmonary Embolus (PE), Renal Disease, Respiratory Disorder, Sleep Apnea/CPAP/BIPAP Additional Past Medical History / Comment(s): Pt recently admitted to [facility] on 08/05/19 with acute on chronic CHF/abnormal ECHO-see report/paroxysmal afib/bilateral pleural effusions with R sided thoracentesis. Other hx: Pt denies diabetes stating he has hypoglycemia/pt recently transfered to [facility] for endocrinology consultation-states he wasn't told anything new, states he has bilateral feet neuropathy, colitis, chronic diffuse abdominal pain, chronic generalized pain, fluid retention, bedbound, lower GI bleed, hiatal hernia, DVT in leg which traveled to his lung, DDD, scoliosis, ALEXIS without device, CKD stage III, pseudoseizures with past extensive work up thru [facility], basal cell skin cancer removed from face. History of Any Multi-Drug Resistant Organisms: MRSA Date of last positivie culture/infection: AUG 2014 MDRO Source:: NASAL Past Surgical History: Appendectomy, Bariatric Surgery, Heart Catheterization, Hernia Repair, Joint Replacement, Orthopedic Surgery Additional Past Surgical History / Comment(s): Gastric sleeve in 2014, L inguinal hernia repair, R elbow surgery x2, total R hip arthroplasty, L knee arthroscopy/ACL surgery, R ankle ORIF, EGD, colonoscopy, basal cell skin cancer from face, surgery for varicele. Past Anesthesia/Blood Transfusion Reactions: Previous Problems w/ Anesthesia Additional Past Anesthesia/Blood Transfusion Reaction / Comment(s): STATES HE WAS TOLD HE WAS A DIFFICULT INTUBATION WITH GASTRIC SLEEVE SURGERY, Past Psychological History: Anxiety, Depression, Panic Disorder, Schizoaffective Disorder Additional Psychological History / Comment(s): Pt resides with his son. states his home care services just stopped 09/06/19 He states he has been bedbound past few months. Pt states he gets paranoid at times. Smoking Status: Former smoker Past Alcohol Use History: None Reported Additional Past Alcohol Use History / Comment(s): STARTED SMOKING AT AGE 15 QUIT SMOKING 1998, smoked 4 cigerettes- 1PPD FORMER ETOH ABUSE. Pt states QUIT 2012 Past Drug Use History: None Reported Additional Drug Use History / Comment(s): PAST HX OF MARIJUANA USE, DENIES USE IN YEARS. - Past Family History Father Family Medical History: Cancer Additional Family Medical History / Comment(s): LUNG CA Mother Additional Family Medical History / Comment(s): Mother of an infection. Medications and Allergies Home Medications Medication Instructions Recorded Confirmed Type OLANZapine [ZyPREXA] 20 mg PO HS 03/18/19 09/07/19 History Gabapentin [Neurontin] 600 mg PO DAILY 07/14/19 09/07/19 History HYDROcodone/APAP 5-325MG [[place] 1 tab PO Q6H PRN 07/14/19 09/07/19 History 5-325] Rivaroxaban [Xarelto] 20 mg PO DAILY 07/14/19 09/07/19 History DULoxetine HCL [Cymbalta] 40 mg PO DAILY 07/15/19 09/07/19 History Diltiazem HCl 30 mg PO Q6H 07/15/19 09/07/19 History busPIRone HCl [Buspar] 5 mg PO BID 07/15/19 09/07/19 History Albuterol Inhaler [Ventolin Hfa 2 puff INHALATION RT-Q6H PRN 08/03/19 09/07/19 History Inhaler] Aspirin EC [Ecotrin Low Dose] 81 mg PO DAILY 08/03/19 09/07/19 History Atorvastatin [Lipitor] 10 mg PO HS 08/03/19 09/07/19 History Ergocalciferol (Vitamin D2) 50,000 unit PO WE 08/03/19 09/07/19 History [Vitamin D2] Hydrocortisone [Cortef] 10 mg PO BID 08/03/19 09/07/19 History Lidocaine 5% Patch [Lidoderm 5% 1 patch TOPICAL DAILY 08/03/19 09/07/19 History Patch] Melatonin 5 mg PO HS 08/03/19 09/07/19 History Tiotropium 18 Mcg/Puff [Spiriva] 1 puff INHALATION RT-DAILY 08/03/19 09/07/19 History Potassium Chloride ER [K-Dur 20] 20 meq PO DAILY #30 tab 08/07/19 09/07/19 Rx Furosemide [Lasix] 40 mg PO BID #60 tab 08/18/19 09/07/19 Rx Albuterol Nebulized [Ventolin 2.5 mg INHALATION RT-Q6H PRN 09/07/19 09/07/19 History Nebulized] Allergies Allergy/AdvReac Type Severity Reaction Status Date / Time codeine Allergy Severe Swelling Verified 09/07/19 08:15 OF THROAT WITH COUGH SYRUP chlorpheniramine Allergy Unknown Verified 09/07/19 08:15 febuxostat [From Uloric] Allergy Unknown Verified 09/07/19 08:15 phenylephrine Allergy Unknown Verified 09/07/19 08:15 piperacillin sodium Allergy Unknown Verified 09/07/19 08:15 [From Zosyn] tazobactam sodium Allergy Unknown Verified 09/07/19 08:15 [From Zosyn] Physical Exam Vitals: Vital Signs Temp Pulse Pulse Pulse Resp BP BP 09/07/19 15:52 81 09/07/19 15:43 79 09/07/19 11:30 78 09/07/19 11:18 78 09/07/19 11:04 97.8 F 78 18 116/59 09/07/19 08:19 80 09/07/19 08:09 78 09/07/19 05:35 97.9 F 78 16 123/57 09/07/19 05:34 78 09/07/19 05:24 82 09/07/19 02:34 97.3 F L 85 16 118/56 09/06/19 23:53 79 18 115/59 09/06/19 23:02 78 09/06/19 22:54 80 12 09/06/19 21:59 79 09/06/19 21:50 98.2 F 79 18 120/69 Pulse Ox 09/07/19 15:52 09/07/19 15:43 09/07/19 11:30 09/07/19 11:18 09/07/19 11:04 97 09/07/19 08:19 09/07/19 08:09 09/07/19 05:35 96 09/07/19 05:34 09/07/19 05:24 98 09/07/19 02:34 98 09/06/19 23:53 98 09/06/19 23:02 09/06/19 22:54 09/06/19 21:59 09/06/19 21:50 96 Intake and Output 09/07/19 09/07/19 09/07/19 06:59 14:59 22:59 Intake Total 590 Output Total 800 Balance 590 -800 Intake: Oral 590 Output: Urine 800 Other: Voiding Method Urinal Urinal # Voids 3 Results CBC & Chem 7: 09/06/19 22:01 09/06/19 22:01 Labs: Abnormal Lab Results - Last 24 Hours (Table) 09/06/19 09/06/19 09/06/19 Range/Units 22:01 22:01 22:01 RBC 4.28 L (4.30-5.90) m/uL Hgb 11.8 L (13.0-17.5) gm/dL Hct 38.5 L (39.0-53.0) % MCHC 30.6 L (31.0-37.0) g/dL APTT 33.1 H (22.0-30.0) sec Chloride 88 L (98-107) mmol/L Carbon Dioxide 43 H* (22-30) mmol/L BUN 22 H (9-20) mg/dL Glucose 101 H (74-99) mg/dL Thrombosis Risk Factor Assmnt - Choose All That Apply Any of the Below Risk Factors Present?: Yes Each Factor Represents 1 point: Age 41-60 years, Medical pt on bed rest, Obesity (BMI >25) Each Risk Factor Represents 3 Points: History of DVT/PE Thrombosis Risk Factor Assessment Total Risk Factor Score: 6 Thrombosis Risk Factor Assessment Level: High Risk
--- NOTE | 2019-09-07 20:10 | CONS ---
CONSULTATION Pulmonary/Critical care consultation DATE OF SERVICE: September 07, 2019 This is a 58-year-old male who is bed bound. The patient presents to the emergency room via EMS for complaints of shortness of breath and chest pain. The patient has a history of chronic right-sided pleural effusion. He was drained a number of weeks back by my partner. More recently, the Interventional Radiology tried to drain the patient under ultrasound guidance, but was only able to get 20 mL from the right pleural space. The patient's cytology from the pleural fluid was negative. He comes back in complaining of tightness in his back, difficulty breathing and chest discomfort. Again, his ultrasound and CT scan seemed to suggest a large right-sided effusion. The patient denies any fever or chills. He is coughing a bit. Not producing any phlegm. States the pain in the right chest is very sharp. I am going to have Dr. Larson see the patient for consideration of a PleurX catheter versus a chest tube placement. This seems to be a chronic problem for this patient. He has not been successful in getting any fluid out recently as mentioned above. CURRENT HOME MEDICATIONS: Include Zyprexa, Neurontin, Neligh, Xarelto, Cymbalta, Cardizem, BuSpar, Ventolin inhaler, aspirin, Lipitor, vitamin D, Cortef, Lidoderm patch, melatonin, Spiriva, K- Dur, albuterol updrafts, and Lasix. ALLERGIES: Numerous and include codeine, Chlor-Trimeton, Uloric, phenylephrine, Zosyn. PAST MEDICAL HISTORY: Positive for atrial fibrillation, chronic bronchial asthma, heart failure, COPD, CVA, diabetes, DVT, GERD, GI bleed, hyperlipidemia, hypertension, DJD, pneumonia, pulmonary embolism and sleep apnea. Additional history includes colitis, stage 3 chronic kidney disease, and skin cancer. SURGICAL HISTORY: Includes appendectomy, bariatric surgery, heart catheterization, hernia repair, joint replacement and various other orthopedic surgery. His bariatric surgery was in 2013 and was a gastric sleeve. He has also undergone surgery for varicocele and left inguinal hernia repair. SOCIAL HISTORY: Positive for previous tobacco use. Does not smoke currently. Denies any alcohol use or illicit drug use. FAMILY HISTORY: Positive for a father with lung cancer and mother who from an infection. REVIEW OF SYSTEMS: CONSTITUTIONAL negative. NEUROLOGIC negative. HEENT negative. CARDIOVASCULAR negative. PULMONARY: Chest pain, difficulty breathing, cough, chest congestion with minimal to no phlegm production. GI negative. negative. RHEUMATOLOGIC negative. IMMUNOLOGIC negative. ENDOCRINOLOGIC negative. DERMATOLOGIC negative. PHYSICAL EXAMINATION: VITAL SIGNS: Current vital signs are reviewed. Temperature is 97.8. Heart rate 78, respiratory rate 18, blood pressure 116/59, mean 78. Room-air saturation 97%. The patient does not appear to have any acute respiratory distress. HEENT examination is grossly unremarkable. Mucous membranes are moist. No oral lesions. NECK: Supple. Full range of motion. No adenopathy or thyromegaly. Neck veins are flat. CARDIOVASCULAR examination reveals regular rhythm and rate. S1, S2 normal. Heart sounds are distant. LUNGS: Diminished breath sounds on the right. There is dullness at the right base. Left lung is relatively clear. A few scattered rhonchi noted on the right side as well. ABDOMEN: Obese. Bowel sounds are heard. EXTREMITIES are intact. Minimal edema. SKIN: Without rash. NEUROLOGIC examination is brief but nonfocal. LAB DATA: Reviewed. White count 7.8, hemoglobin 11.8, hematocrit 38.5, platelet count 356,000 PT/INR and PTT normal. Sodium 137, potassium 3.9, chloride 88, CO2 43, BUN and creatinine were 22 and 0.7. Anion gap is 6. Rest of the labs look pretty good. X-RAY: Chest x-ray is done. It shows a large right-sided pleural effusion. A chest ultrasound is done. It also shows a right pleural effusion pocket size to be 12.8 cm and 4.3 cm below the skin surface. Chest CT is reviewed. It shows moderate to large right-sided pleural effusion with adjacent right lower lobe collapse. There is also a patchy ground-glass in the anterior left parahilar region. There may be some underlying pulmonary arterial hypertension. There is a small hiatal hernia. ASSESSMENT: 1. Large right pleural effusion causing both shortness of breath and pain. The effusion has been attempted twice, once by my partner and once by Interventional Radiology. 2. History of atrial fibrillation. 3. History of chronic obstructive pulmonary disease/asthma. 4. History of skin cancer. 5. History of heart failure. 6. History of cerebrovascular accident. 7. Diabetes mellitus. 8. deep vein thrombosis/pulmonary embolism. 9. History of gastroesophageal reflux disease. 10.History of gastrointestinal bleed. 11.History of hyperlipidemia. 12.History of hypertension. 13.History of osteoarthritis. 14.History of sleep apnea syndrome, currently on CPAP. 15.Multiple other medical problems and comorbidities. PLAN: We did an ultrasound and a CT scan of the chest. Appears to show a large right-sided effusion. The last time it was drained by Interventional Radiology, only 20 mL was removed. We are going to ask cardiothoracic to see him for consideration of a PleurX catheter versus administration the insertion of the chest tube. We will await the input. No additional recommendations are made. Prognosis is guarded. MMODL / IJN: [id number] /
[2019-09-07] MEDS: OLANZapine 10 MG TAB PO SCH (20:50)
[2019-09-07] MEDS: ATORVASTATIN 10 MG TAB PO SCH (20:50)
[2019-09-07] MEDS: MELATONIN 5 MG TABLET PO SCH (20:50)
[2019-09-08] MEDS: DILTIAZEM ORAL 30 MG TAB PO SCH ×5 (00:15→23:37)
[2019-09-08] MEDS: SODIUM CHLORIDE 0.9% 1,000 ML IV SCH (03:48)
[2019-09-08] MEDS: IPRATROPIUM-ALBUTEROL 3 ML NEB INHALATION SCH ×4 (07:20→19:46)
[2019-09-08] MEDS: HEPARIN SODIUM,PORCINE 5,000 UNIT/ML 1 ML VIAL SQ SCH ×3 (08:28→23:37)
[2019-09-08] MEDS: DULoxetine HCL 20 MG CAPSULE.DR PO SCH (08:30)
[2019-09-08] MEDS: busPIRone HCl 5 MG TAB PO SCH ×2 (08:30→22:03)
[2019-09-08] MEDS: ASPIRIN 81 MG PO SCH (08:30)
[2019-09-08] MEDS: FUROSEMIDE 40 MG TAB PO SCH (08:31)
[2019-09-08] MEDS: GABAPENTIN 300 MG CAP PO SCH (08:31)
[2019-09-08] MEDS: LIDOCAINE 5% PATCH TOPICAL SCH (08:31)
[2019-09-08] MEDS: HYDROCORTISONE 10 MG TAB PO SCH ×2 (08:31→22:20)
[2019-09-08] MEDS: POTASSIUM CHLORIDE ER 20 MEQ TAB.ER PO SCH (08:37)
[2019-09-08] MEDS: SENNOSIDES 8.6 MG TAB PO PRN (11:32)
[2019-09-08] MEDS: HYDROcodone/APAP 5-325MG 1 EACH TAB PO PRN ×3 (11:35→23:38)
--- NOTE | 2019-09-08 12:08 | P.PN ---
Subjective Progress Note Date: 09/08/19 Principal diagnosis: Moderate to large right lung pleural effusion with adjacent right lower lobe collapse. The patient is seen today 09/08/2019 in follow-up on the regular medical floor. He is currently resting comfortably in bed. Awake and alert in no acute distress. Still some discomfort on inhalation in the right lung. Maintaining good O2 saturations in the mid 90s on 2 L/m per nasal cannula. He is afebrile. Hemodynamically stable. The plan is for possible Pleurx catheter placement on 09/11/2019. Objective - Vital Signs Vital signs: Vital Signs Temp 96.9 F L 09/08/19 11:47 Pulse 85 09/08/19 11:47 Resp 16 09/08/19 11:47 BP 125/62 09/08/19 11:47 Pulse Ox 96 09/08/19 11:47 Intake & Output 09/07/19 09/08/19 09/08/19 18:59 06:59 18:59 Intake Total 1180 Output Total 800 1800 600 Balance -800 -620 -600 Intake: Oral 1180 Output: Urine 800 1800 600 Other: Voiding Method Urinal Urinal # Voids 3 2 - Exam GENERAL EXAM: Alert, morbidly obese 58-year-old gentleman, on 2 L nasal cannula, fairly comfortable in no apparent distress. HEAD: Normocephalic. EYES: Normal reaction of pupils, equal size. NOSE: Clear with pink turbinates. THROAT: No erythema or exudates. NECK: No masses, no JVD. CHEST: No chest wall deformity. LUNGS: Equal air entry with crackles, diminished in the right lung base. CVS: S1 and S2 normal with no audible murmur, regular rhythm. ABDOMEN: No hepatosplenomegaly, normal bowel sounds, no guarding or rigidity. SPINE: No scoliosis or deformity SKIN: No rashes CENTRAL NERVOUS SYSTEM: No focal deficits, tone is normal in all 4 extremities. EXTREMITIES: There is no peripheral edema. No clubbing, no cyanosis. Peripheral pulses are intact. - Labs CBC & Chem 7: 09/06/19 22:01 09/06/19 22:01 Assessment and Plan Assessment: Impression: #1 Right-sided chest discomfort secondary to recurrent moderate to large right pleural effusion, loculated. #2 History of atrial fibrillation, anticoagulated with Xarelto. #3 Chronic obstructive pleural disease/asthma. #4 History of skin cancer. #5 History of heart failure. #6 History of CVA. #7 Diabetes mellitus. #8 History of DVT/PE. #9 GERD. #10 History of GI bleed. #11 Hyperlipidemia. #12 Hypertension. #13 Osteoarthritis. #14 History of sleep apnea, on CPAP. #15 Poor overall functional performance based on the above-mentioned multiple comorbidities. Plan: The patient was seen and evaluated by Dr. Rondon. He is currently stable from the pulmonary standpoint. We have requested cardiothoracic surgeons to consider him for Pleurx catheter placement due to the recurrent effusions and loculations. The plan is for 09/11/2019 while off Xarelto. We'll continue to follow. I, the cosigning physician, performed a history & physical examination of the patient. Lungs sounds with crackles, diminished in the right lung base. Maintaining good O2 saturations in the 90s on 2 L/m per nasal cannula. I discus sed the assessment and plan of care with my nurse practitioner, Goldie Guardado. I attest to the above note as dictated by her.
[2019-09-08 14:44] VITALS: BMI 45.3
--- NOTE | 2019-09-08 14:48 | P.GSCN ---
History of Present Illness Consult date: 09/08/19 Reason for Consult: Large right-sided pleural effusion, Pleurx catheter placement Requesting physician: Goldie Guardado History of present illness: This is a 58-year-old gentleman who follows on an outpatient basis with Dr. Bailey. He has a previous medical history of chronic congestive heart failure, paroxysmal atrial fibrillation on Xarelto for anticoagulation, DVT/PE, hypertension, hyperlipidemia, pseudo-seizure disorder, asthma, COPD with previous tobacco dependence, obstructive sleep apnea, stage III chronic kidney disease, TIA, rheumatoid arthritis, degenerative disc disease, basal cell carcinoma with removal, hypoglycemia, morbid obesity status post gastric sleeve surgery, significant debility being bedbound, and psychiatric history including bipolar disorder and schizoaffective disorder. He presented to [facility] emergency room with complaints of right-sided intermittent chest pain and shortness of breath for the previous week since previous thoracentesis. Apparently he had a thoracentesis by pulmonology on 08/04/2019 with removal of 950 mL of fluid. He was again drained by interventional radiology on August 17, this time only 20 mL of fluid was able to be removed. He has continued to have shortness of breath and chest pain, and subsequently presented to the emergency room. He was admitted for further evaluation and treatment with consultation placed to Dr. Rondon for pulmonology. An ultrasound of the chest demonstrated 12.8 cm fluid pocket on the right. CT of the chest demonstrated moderate to large right pleural effusion with right lower lobe collapse. Dr. Rondon consul ravinder Dr. Barton from cardiothoracic surgery for placement of a right-sided Pleurx catheter. Review of Systems Review of systems was completed and was negative except as noted in the HPI Past Medical History Past Medical History: Atrial Fibrillation, Asthma, Cancer, Heart Failure, COPD, CVA/TIA, Diabetes Mellitus, Deep Vein Thrombosis (DVT), GERD/Reflux, GI Bleed, Hyperlipidemia, Hypertension, Osteoarthritis (OA), Pneumonia, Pulmonary Embolus (PE), Renal Disease, Respiratory Disorder, Sleep Apnea/CPAP/BIPAP Additional Past Medical History / Comment(s): Pt recently admitted to [facility] on 08/05/19 with acute on chronic CHF/abnormal ECHO-see report/paroxysmal afib/bilateral pleural effusions with R sided thoracentesis. Other hx: Pt denies diabetes stating he has hypoglycemia/pt recently transfered to [facility] for endocrinology consultation-states he wasn't told anything new, states he has bilateral feet neuropathy, colitis, chronic diffuse abdominal pain, chronic generalized pain, fluid retention, bedbound, lower GI bleed, hiatal hernia, DVT in leg which traveled to his lung, DDD, scoliosis, ALEXIS without device, CKD stage III, pseudoseizures with past extensive work up thru [facility], basal cell skin cancer removed from face. History of Any Multi-Drug Resistant Organisms: MRSA Year Discovered:: AUG 2018 MDRO Source:: sputum Past Surgical History: Appendectomy, Bariatric Surgery, Heart Catheterization, Hernia Repair, Joint Replacement, Orthopedic Surgery Additional Past Surgical History / Comment(s): Gastric sleeve in 2013, L inguinal hernia repair, R elbow surgery x2, total R hip arthroplasty, L knee arthroscopy/ACL surgery, R ankle ORIF, EGD, colonoscopy, basal cell skin cancer from face, surgery for varicele. Past Anesthesia/Blood Transfusion Reactions: Previous Problems w/ Anesthesia Additional Past Anesthesia/Blood Transfusion Reaction / Comm: STATES HE WAS TOLD HE WAS A DIFFICULT INTUBATION WITH GASTRIC SLEEVE SURGERY, Past Psychological History: Anxiety, Depression, Panic Disorder, Schizoaffective Disorder Additional Psychological History / Comment(s): Pt resides with his son. states his home care services just stopped 09/06/19 He states he has been bedbound past few months. Pt states he gets paranoid at times. Smoking Status: Former smoker Past Alcohol Use History: None Reported Additional Past Alcohol Use History / Comment(s): STARTED SMOKING AT AGE 15 QUIT SMOKING 1998, smoked 4 cigerettes- 1PPD FORMER ETOH ABUSE. Pt states QUIT 2012 Past Drug Use History: None Reported Additional Drug Use History / Comment(s): PAST HX OF MARIJUANA USE, DENIES USE IN YEARS. - Past Family History Father Family Medical History: Cancer Additional Family Medical History / Comment(s): LUNG CA Mother Family Medical History: Coronary Artery Disease (CAD) Additional Family Medical History / Comment(s): Mother of an infection. Medications and Allergies Home Medications Medication Instructions Recorded Confirmed Type OLANZapine [ZyPREXA] 20 mg PO HS 03/18/19 09/07/19 History Gabapentin [Neurontin] 600 mg PO DAILY 07/14/19 09/07/19 History HYDROcodone/APAP 5-325MG [[place] 1 tab PO Q6H PRN 07/14/19 09/07/19 History 5-325] Rivaroxaban [Xarelto] 20 mg PO DAILY 07/14/19 09/07/19 History DULoxetine HCL [Cymbalta] 40 mg PO DAILY 07/15/19 09/07/19 History Diltiazem HCl 30 mg PO Q6H 07/15/19 09/07/19 History busPIRone HCl [Buspar] 5 mg PO BID 07/15/19 09/07/19 History Albuterol Inhaler [Ventolin Hfa 2 puff INHALATION RT-Q6H PRN 08/03/19 09/07/19 History Inhaler] Aspirin EC [Ecotrin Low Dose] 81 mg PO DAILY 08/03/19 09/07/19 History Atorvastatin [Lipitor] 10 mg PO HS 08/03/19 09/07/19 History Ergocalciferol (Vitamin D2) 50,000 unit PO WE 08/03/19 09/07/19 History [Vitamin D2] Hydrocortisone [Cortef] 10 mg PO BID 08/03/19 09/07/19 History Lidocaine 5% Patch [Lidoderm 5% 1 patch TOPICAL DAILY 08/03/19 09/07/19 History Patch] Melatonin 5 mg PO HS 08/03/19 09/07/19 History Tiotropium 18 Mcg/Puff [Spiriva] 1 puff INHALATION RT-DAILY 08/03/19 09/07/19 History Potassium Chloride ER [K-Dur 20] 20 meq PO DAILY #30 tab 08/07/19 09/07/19 Rx Furosemide [Lasix] 40 mg PO BID #60 tab 08/18/19 09/07/19 Rx Albuterol Nebulized [Ventolin 2.5 mg INHALATION RT-Q6H PRN 09/07/19 09/07/19 History Nebulized] Allergies Allergy/AdvReac Type Severity Reaction Status Date / Time codeine Allergy Severe Swelling Verified 09/07/19 08:15 OF THROAT WITH COUGH SYRUP chlorpheniramine Allergy Unknown Verified 09/07/19 08:15 febuxostat [From Uloric] Allergy Unknown Verified 09/07/19 08:15 phenylephrine Allergy Unknown Verified 09/07/19 08:15 piperacillin sodium Allergy Unknown Verified 09/07/19 08:15 [From Zosyn] tazobactam sodium Allergy Unknown Verified 09/07/19 08:15 [From Zosyn] Surgical - Exam Vital Signs Temp Pulse Resp BP Pulse Ox 98.2 F 79 18 120/69 96 09/06/19 21:50 09/06/19 21:50 09/06/19 21:50 09/06/19 21:50 09/06/19 21:50 - General well developed, well nourished, no distress, no pain, chronically ill, obese - Eyes PERRL, normal ocular movement - ENT no hearing loss, poor intermediate - Neck no masses, no bruits, trachea midline - Respiratory Lungs sounds diminished bilaterally, right greater than left. Respirations even, nonlabored. Currently on 2 L nasal cannula with oxygen saturation 96%. - Cardiovascular S1, S2 present. Regular rate and rhythm. Palpable peripheral pulses bilaterally. Bilateral lower extremity edema present. No calf pain or tenderness noted. - Abdomen Abdomen: soft, non tender, bowel sounds - Genitourinary Deferred - Rectum Deferred - Integumentary no rash, no growths - Neurologic normal sensation - Musculoskeletal Severe debility. Patient is able to move his legs minimally but does complain of significant pain with movement, he has been bedbound for quite some time - Psychiatric oriented to time, oriented to person, oriented to place Results - Labs 09/06/19 22:01 09/06/19 22:01 - Imaging Chest x-ray: report reviewed, image reviewed CT scan - chest: report reviewed, image reviewed Additional studies: Chest ultrasound reviewed Assessment and Plan Assessment: 1. Large right-sided pleural effusion 2. History of chronic congestive heart failure 3. Paroxysmal atrial fibrillation, on Xarelto for anticoagulation, last dose 09/09/2019 4. DVT/PE 5. Hypertension 6. Hyperlipidemia 7. Pseudo-seizure disorder 8. Asthma 9. COPD with previous tobacco dependence 10. Obstructive sleep apnea 11. Stage III chronic kidney disease 12. Morbid obesity 13. Significant debility, bed bound 14. Schizoaffective disorder, bipolar disorder Plan: The patient was seen and examined at the bedside. Chart/diagnostics were revi ewed. Case to be discussed with Dr. Barton. The possibility of Pleurx catheter placement was discussed in detail with the patient, risks and benefits were reviewed, patient is agreeable to procedure. The patient did receive Xarelto yesterday afternoon so placement of any invasive line will have to wait until at least Wednesday. This was discussed with the patient and he is in understanding. Continued medical management of other comorbidities per primary care, pulmonology. More recommendations to follow. Thank you Dr. Rondon for this consult. Please call us with any further questions. Time with Patient: Greater than 30
[2019-09-08] MEDS: FUROSEMIDE 10 MG/ML 4 ML VIAL IV SCH ×2 (17:09→23:38)
--- NOTE | 2019-09-08 18:02 | P.PN ---
Progress Note - Text Progress Note Date: 09/08/19 Chief Complaint: Short of breath Interval history: This is a 58-year-old patient who follows with visiting physician Dr. Antelmo Steele. Patient has a rather extensive medical history. Patient presented increasing shortness of breath . Patient has not really walked since January of this year. Has a hospital bed at home. Chronic stable medical conditions include Diastolic CHF, paroxysmal atrial fibrillation, pseudoseizures with extensive work up including continuous EEG monitoring done at [facility] recently, morbid obesity, sleeve gastrectomy, COPD, diabetes mellitus,, bipolar disorder. Patient recently positive for C. diff.That failed vancomycin taper and was treated with Dificid. Patient also has bilateral pleural effusion on the large one on the right. In the beginning of July close to thousand cc were removed. Then attempted thoracentesis more recently. Patient now presents to the ER again with worsening difficulty breathing and some chest tightness. Also feels generalized weakness. No fever no chills. Has a dry cough. Again found of a significant left-sided pleural effusion. CT chest was done and ultrasound marked was done. Dr. Ruiz was consulted. Patient has chronic pain. Admitted with worsening right pleural effusion. Today-laying in bed. Not in distress. Also for his pain medications to be increased. Review of systems: Was done for constitutional, cardiovascular, GI, pulmonary. relevant finding as above Active Medications Acetaminophen (Tylenol Tab) 650 mg PO Q6HR PRN PRN Reason: Mild Pain or Fever > 100.5 Hydrocodone Bitart/Acetaminophen ([place] 5-325) 1 each PO Q6H PRN PRN Reason: Pain Last Admin: 09/08/19 17:11 Dose: 1 each Documented by: Albuterol/Ipratropium (Duoneb 0.5 Mg-3 Mg/3 Ml Soln) 3 ml INHALATION RT-QID [facility] Last Admin: 09/08/19 16:08 Dose: 3 ml Documented by: Aspirin (Aspirin) 81 mg PO DAILY [facility] Last Admin: 09/08/19 08:30 Dose: 81 mg Documented by: Atorvastatin Calcium (Lipitor) 10 mg PO HS [facility] Last Admin: 09/07/19 20:50 Dose: 10 mg Documented by: Buspirone HCl (Buspar) 5 mg PO BID [facility] Last Admin: 09/08/19 08:30 Dose: 5 mg Documented by: Diltiazem HCl (Cardizem Oral) 30 mg PO Q6HR [facility] Last Admin: 09/08/19 17:09 Dose: 30 mg Documented by: Duloxetine HCl (Cymbalta) 40 mg PO DAILY [facility] Last Admin: 09/08/19 08:30 Dose: 40 mg Documented by: Ergocalciferol (Vitamin D2) 50,000 unit PO [facility] Furosemide (Lasix) 40 mg IV Q8HR [facility] Last Admin: 09/08/19 17:09 Dose: 40 mg Documented by: Gabapentin (Neurontin) 600 mg PO DAILY [facility] Last Admin: 09/08/19 08:31 Dose: 600 mg Documented by: Heparin Sodium (Porcine) (Heparin) 5,000 unit SQ Q8HR [facility] Last Admin: 09/08/19 17:09 Dose: 5,000 unit Documented by: Hydrocortisone (Cortef) 10 mg PO BID [facility] Last Admin: 09/08/19 08:31 Dose: 10 mg Documented by: Sodium Chloride (Saline 0.9%) 1,000 mls @ 20 mls/hr IV .Q24H [facility] Last Admin: 09/08/19 03:48 Dose: Not Given Documented by: Ibuprofen (Motrin) 400 mg PO Q6HR PRN PRN Reason: Mild Pain or Fever > 100.5 Last Admin: 09/07/19 13:05 Dose: 400 mg Documented by: Lidocaine (Lidoderm) 1 patch TOPICAL DAILY [facility] Last Admin: 09/08/19 08:31 Dose: 1 patch Documented by: Melatonin (Melatonin) 5 mg PO [facility] Last Admin: 09/07/19 20:50 Dose: 5 mg Documented by: Miscellaneous Information (Rx Info: Iv Contrast Was Given) 1 each MISCELLANE DAILY PRN PRN Reason: Per Protocol Stop: 09/09/19 10:56 Morphine Sulfate (Morphine Sulfate (Inj)) 4 mg IV Q4HR PRN PRN Reason: Severe Pain Naloxone HCl (Narcan) 0.2 mg IV Q2M PRN PRN Reason: Opioid Reversal Olanzapine (Zyprexa) 20 mg PO [facility] Last Admin: 09/07/19 20:50 Dose: 20 mg Documented by: Ondansetron HCl (Zofran) 4 mg IVP Q8HR PRN PRN Reason: Nausea And Vomiting Potassium Chloride (K-Dur 20) 20 meq PO DAILY [facility] Last Admin: 09/08/19 08:37 Dose: 20 meq Documented by: Eric (Senokot) 8.6 mg PO DAILY PRN PRN Reason: Constipation Last Admin: 09/08/19 11:32 Dose: 8.6 mg Documented by: Physical examination: VITAL SIGNS: 96.9, 85, 16, 125/62, 96% on 2 L GENERAL: Laying in bed, awake, comfortable EYES: Pupils equal. Conjunctiva normal. HEENT: External appearance of nose and ears normal, oral cavity grossly normal. NECK: Neck is short and thick, JVD unable to assess, mass not palpable. HEART: Heart sounds are distant, edema present. LUNGS: Respiratory rate increased, diminished breath sounds. ABDOMEN: Soft, nontender, liver spleen not palpable, no masses palpable. PSYCH: Tired but answering questions NEUROLOGICAL: Cranial nerves grossly intact; no facial asymmetry, decreased power in both lower extremity. LYMPHATICS: No lymph nodes palpable in the axilla and neck INVESTIGATIONS, reviewed in the clinical context: White count 7.8 hemoglobin 11.8 platelets 256 potassium 3.9 white count 43 bun 22 creatinine 0.70 ProBNP 76 Chest x-ray film personally reviewed by me-large right pleural effusion EKG tracing personally reviewed by me-normal sinus rhythm 2-D echocardiogram-severe concentric LVH, EF 60-65%, moderate tricuspid regurgitation Previous cytology of the fluid from a month ago shows negative for malignancy Assessment: -Recurrent acute on chronic large right-sided pleural effusion, symptomatic -Chronic congestive heart failure from gastric dysfunction EF 55-60% -Hypertensive heart disease -Paroxysmal atrial fibrillation currently in sinus rhythm, chronically on 0 to -suedo-seizures with extensive workup at [facility] in the past -Morbid obesity BMI 45.4 -Diabetes mellitus type 2 -Bipolar disorder -Medical debility Plan: Patient's Xarelto is to be held about possibility of Pleurx catheter as per cardio thoracic surgery. Patient wonders home. Medications to be increased. I did explain to be at length that for chronic pain, increase in narcotics not advocated and is very comfortable at rest. Would get him a consultation with Dr. Hernandez for pain management.
[2019-09-08] MEDS: ATORVASTATIN 10 MG TAB PO SCH (22:03)
[2019-09-08] MEDS: MELATONIN 5 MG TABLET PO SCH (22:03)
[2019-09-08] MEDS: OLANZapine 10 MG TAB PO SCH (22:03)
[2019-09-09] MEDS: SODIUM CHLORIDE 0.9% 1,000 ML IV SCH (02:33)
[2019-09-09] MEDS: DILTIAZEM ORAL 30 MG TAB PO SCH ×3 (06:05→17:34)
[2019-09-09] MEDS: HYDROcodone/APAP 5-325MG 1 EACH TAB PO PRN ×2 (06:23→15:55)
--- NOTE | 2019-09-09 06:43 | XR ---
EXAMINATION TYPE: XR chest 1V portable DATE OF EXAM: 09/09/2019 HISTORY: pleural effusion. REFERENCE: Previous study dated 09/06/2019. FINDINGS: There is a worsening right-sided pleural effusion. The heart is enlarged. Left lung is rela tively clear. IMPRESSION: ENLARGING RIGHT-SIDED PLEURAL EFFUSION.
[2019-09-09] MEDS: LIDOCAINE 5% PATCH TOPICAL SCH (07:53)
[2019-09-09] MEDS: HEPARIN SODIUM,PORCINE 5,000 UNIT/ML 1 ML VIAL SQ SCH ×2 (07:55→15:54)
[2019-09-09] MEDS: FUROSEMIDE 10 MG/ML 4 ML VIAL IV SCH ×2 (07:55→15:54)
[2019-09-09] MEDS: ASPIRIN 81 MG PO SCH (07:55)
[2019-09-09] MEDS: busPIRone HCl 5 MG TAB PO SCH ×2 (07:55→20:56)
[2019-09-09] MEDS: DULoxetine HCL 20 MG CAPSULE.DR PO SCH (07:56)
[2019-09-09] MEDS: POTASSIUM CHLORIDE ER 20 MEQ TAB.ER PO SCH (07:56)
[2019-09-09] MEDS: GABAPENTIN 300 MG CAP PO SCH (07:56)
[2019-09-09] MEDS: HYDROCORTISONE 10 MG TAB PO SCH ×2 (07:56→20:56)
[2019-09-09] MEDS: IPRATROPIUM-ALBUTEROL 3 ML NEB INHALATION SCH ×4 (08:44→20:56)
[2019-09-09] MEDS: IBUPROFEN 400 MG TAB PO PRN ×2 (09:26→17:34)
--- NOTE | 2019-09-09 09:47 | P.PN ---
Subjective Progress Note Date: 09/09/19 Principal diagnosis: Large right-sided pleural effusion. Previous medical history of chronic diastolic heart failure, paroxysmal atrial fibrillation on Xarelto for anticoagulation, DVT/PE, hypertension, hyperlipidemia, pseudo-seizure disorder, asthma, COPD with previous tobacco dependence, obstructive sleep apnea, stage III chronic kidney disease, TIA, rheumatoid arthritis, degenerative disc disease, basal cell carcinoma with removal, hypoglycemia, morbid obesity status post gastric sleeve surgery, significant debility being bedbound, and psychiatric history including bipolar disorder and schizoaffective disorder. The patient is currently laying in bed in no acute distress. Does continue to complain of chronic pain. Denies significant shortness of breath. Objective - Vital Signs Vital signs: Vital Signs Temp 97.1 F L 09/09/19 04:56 Pulse 79 09/09/19 09:00 Resp 16 09/09/19 04:56 BP 119/63 09/09/19 04:56 Pulse Ox 98 09/09/19 08:45 Intake & Output 09/08/19 09/09/19 09/09/19 18:59 06:59 18:59 Intake Total 120 Output Total 3400 800 Balance -3400 -680 Weight 173.726 kg 184.5 kg Intake: Oral 120 Output: Urine 3400 800 Other: Voiding Method Urinal # Voids 2 - Constitutional General appearance: Present: cooperative, no acute distress, obese - Respiratory Details: Lungs sounds diminished bilaterally, right greater than left. Respirations even, nonlabored. Currently on 2 L nasal cannula with oxygen saturation 96%. - Cardiovascular Details: S1, S2 present. Regular rate and rhythm. Palpable peripheral pulses bilaterally. Bilateral lower extremity edema present. No calf pain or t enderness noted. - Gastrointestinal Gastrointestinal Comment(s): Abdomen soft, nontender, nondistended. Active bowel sounds 4 quadrants. Tolerating diet. - Genitourinary Genitourinary Comment(s): Continues to void per urinal - Integumentary Integumentary Comment(s): Skin is warm and dry with evidence of good perfusion - Neurologic Neurologic: Present: CNII-XII intact - Musculoskeletal Musculoskeletal: Present: strength equal bilaterally - Psychiatric Psychiatric: Present: A&O x's 3, appropriate affect - Allied health notes Allied health notes reviewed: nursing - Labs CBC & Chem 7: 09/06/19 22:09/06/19 22:01 - Imaging and Cardiology Chest x-ray: report reviewed, image reviewed Assessment and Plan Assessment: 1. Large right-sided pleural effusion 2. History of chronic diastolic heart failure 3. Paroxysmal atrial fibrillation, on Xarelto for anticoagulation, last dose 09/09/2019 4. DVT/PE 5. Hypertension 6. Hyperlipidemia 7. Pseudo-seizure disorder 8. Asthma 9. COPD with previous tobacco dependence 10. Obstructive sleep apnea 11. Stage III chronic kidney disease 12. Morbid obesity 13. Significant debility, bed bound 14. Schizoaffective disorder, bipolar disorder Plan: 1. The patient was seen at the bedside yesterday with Dr. Barton. Cytology from previous thoracentesis indicates fluid was consistent with heart failure. We would like another thoracentesis to be completed. This was discussed with Dr. Rondon and he is agreeable. This was also discussed with Dr. Bashir. 2. Pleurx catheter not likely to improve patient's health status, rather he needs better management of his heart failure and other comorbid conditions. 3. Management of comorbidities per primary care service. 4. More recommendations to follow. Discussed with any questions. Time with Patient: Greater than 30
--- NOTE | 2019-09-09 16:03 | P.PN ---
Subjective Progress Note Date: 09/09/19 Principal diagnosis: Right-sided pleural effusion Mr. Saha is a 58-year-old male with a past medical history of atrial fibrillation, asthma, heart failure, COPD, diverticulitis, DVT, GERD, GI., Hypertension, hyperlipidemia, osteoarthritis, obstructive sleep apnea, diabetic neuropathy, basal cell skin cancer status post removal coming into the hospital with a chief complaint of difficulty in breathing. Patient had multiple hospital admissions since January of this year. Patient has a hospital bed at home due to chronic debility. Patient presents this time to the hospital with worsening of difficulty in breathing. So he had a CT chest done showing worsening of right-sided pleural effusion and so he has been admitted for it. On 09/09/2019 -patient is lying in the bed comfortably. He states that his difficulty in breathing is still present. He denies having any chest pain or palpitations. Patient has chronic lower extremity swelling that has been stable. Patient denies having any cough or sputum production. No abdominal pain nausea vomiting or diarrhea. He denies having any dysuria or hematuria. Patient's vital signs and labs have been reviewed. Active Medications Acetaminophen (Tylenol Tab) 650 mg PO Q6HR PRN PRN Reason: Mild Pain or Fever > 100.5 Hydrocodone Bitart/Acetaminophen ([place] 5-325) 1 each PO Q6H PRN PRN Reason: Pain Last Admin: 09/09/19 15:55 Dose: 1 each Documented by: Albuterol/Ipratropium (Duoneb 0.5 Mg-3 Mg/3 Ml Soln) 3 ml INHALATION RT-QID [facility] Last Admin: 09/09/19 12:03 Dose: 3 ml Documented by: Aspirin (Aspirin) 81 mg PO DAILY [facility] Last Admin: 09/09/19 07:55 Dose: 81 mg Documented by: Atorvastatin Calcium (Lipitor) 10 mg PO HS [facility] Last Admin: 09/08/19 22:03 Dose: 10 mg Documented by: Buspirone HCl (Buspar) 5 mg PO BID [facility] Last Admin: 09/09/19 07:55 Dose: 5 mg Documented by: Diltiazem HCl (Cardizem Oral) 30 mg PO Q6HR [facility] Last Admin: 09/09/19 12:59 Dose: 30 mg Documented by: Duloxetine HCl (Cymbalta) 40 mg PO DAILY [facility] Last Admin: 09/09/19 07:56 Dose: 40 mg Documented by: Ergocalciferol (Vitamin D2) 50,000 unit PO WE [facility] Furosemide (Lasix) 40 mg IV Q8HR [facility] Last Admin: 09/09/19 15:54 Dose: 40 mg Documented by: Gabapentin (Neurontin) 600 mg PO DAILY [facility] Last Admin: 09/09/19 07:56 Dose: 600 mg Documented by: Heparin Sodium (Porcine) (Heparin) 5,000 unit SQ Q8HR [facility] Last Admin: 09/09/19 15:54 Dose: 5,000 unit Documented by: Hydrocortisone (Cortef) 10 mg PO BID [facility] Last Admin: 09/09/19 07:56 Dose: 10 mg Documented by: Sodium Chloride (Saline 0.9%) 1,000 mls @ 20 mls/hr IV .Q24H [facility] Last Admin: 09/09/19 02:33 Dose: Not Given Documented by: Ibuprofen (Motrin) 400 mg PO Q6HR PRN PRN Reason: Mild Pain or Fever > 100.5 Last Admin: 09/09/19 09:26 Dose: 400 mg Documented by: Lidocaine (Lidoderm) 1 patch TOPICAL DAILY [facility] Last Admin: 09/09/19 07:53 Dose: 1 patch Documented by: Melatonin (Melatonin) 5 mg PO HS [facility] Last Admin: 09/08/19 22:03 Dose: 5 mg Documented by: Morphine Sulfate (Morphine Sulfate (Inj)) 4 mg IV Q4HR PRN PRN Reason: Severe Pain Naloxone HCl (Narcan) 0.2 mg IV Q2M PRN PRN Reason: Opioid Reversal Olanzapine (Zyprexa) 20 mg PO [facility] Last Admin: 09/08/19 22:03 Dose: 20 mg Documented by: Ondansetron HCl (Zofran) 4 mg IVP Q8HR PRN PRN Reason: Nausea And Vomiting Potassium Chloride (K-Dur 20) 20 meq PO DAILY [facility] Last Admin: 09/09/19 07:56 Dose: 20 meq Documented by: Senna (Senokot) 8.6 mg PO DAILY PRN PRN Reason: Constipation Last Admin: 09/08/19 11:32 Dose: 8.6 mg Documented by: Objective - Vital Signs Vital signs: Vital Signs Temp 96.8 F L 09/09/19 12:58 Pulse 77 10/12/19 12:58 Resp 16 09/09/19 12:58 BP 124/67 09/09/19 12:58 Pulse Ox 96 09/09/19 12:58 Intake & Output 09/08/19 09/09/19 09/09/19 18:59 06:59 18:59 Intake Total 120 1080 Output Total 3400 800 Balance -3400 -680 1080 Weight 173.726 kg 184.5 kg Intake: Intake, IV Titration 0 Amount Sodium Chloride 0.9% 1, 0 000 ml @ 20 mls/hr IV . Q24H [facility] Rx#:[id number] Oral 120 1080 Output: Urine 3400 800 Other: Voiding Method Urinal Urinal # Voids 2 3 - Exam GENERAL: Laying in bed, awake, comfortable EYES: Pupils equal. Conjunctiva normal. NECK: Neck is short and thick, JVD unable to assess, mass not palpable. HEART: Heart sounds are distant. EXTREMITIES: Bilateral pitting edema LUNGS: Respiratory rate increased, diminished breath sounds. ABDOMEN: Soft, nontender, liver spleen not palpable, no masses palpable. NEUROLOGICAL: Cranial nerves grossly intact; no facial asymmetry, decreased power in both lower extremity. - Labs CBC & Chem 7: 09/06/19 22:01 09/06/19 22:01 Assessment and Plan Assessment: Assessment: -Recurrent acute on chronic large right-sided pleural effusion, symptomatic -Chronic congestive heart failure from diastolic dysfunction EF 55-60% -Hypertensive heart disease -Paroxysmal atrial fibrillation currently in sinus rhythm, chronically on 0 to -suedo-seizures with extensive workup at [facility] in the past - CK D stage III -Morbid obesity BMI 45.4 -Diabetes mellitus type 2 -Bipolar disorder -Medical debility -Schizoaffective disorder, bipolar disorde -ALEXIS PLAN: Patient has history of recurrent right-sided pleural effusion. Pulmonary Dr. Rondon following the patient for this. CT surgery has been consulted for possible Pleurx catheter placement. Patient is currently off of Xarelto for possible procedure in 2-3 days. Continue the patient on current medication regimen. Further recommendations to follow depending on the progress of the patient.
[2019-09-09] MEDS: ATORVASTATIN 10 MG TAB PO SCH (20:55)
[2019-09-09] MEDS: MELATONIN 5 MG TABLET PO SCH (20:55)
[2019-09-09] MEDS: OLANZapine 10 MG TAB PO SCH (20:56)
[2019-09-10] MEDS: DILTIAZEM ORAL 30 MG TAB PO SCH ×4 (00:40→18:00)
[2019-09-10] MEDS: FUROSEMIDE 10 MG/ML 4 ML VIAL IV SCH ×2 (00:40→08:48)
[2019-09-10] MEDS: HEPARIN SODIUM,PORCINE 5,000 UNIT/ML 1 ML VIAL SQ SCH ×3 (00:41→16:05)
[2019-09-10] MEDS: IBUPROFEN 400 MG TAB PO PRN ×3 (00:44→21:21)
[2019-09-10] MEDS: SODIUM CHLORIDE 0.9% 1,000 ML IV SCH (00:47)
[2019-09-10] MEDS: HYDROcodone/APAP 5-325MG 1 EACH TAB PO PRN ×3 (05:10→18:00)
[2019-09-10 08:12] LABS: Basophils # (A) 0.1 k/uL (0-0.2); Basophils % (A) 1 %; Eosinophils # (A) 0.2 k/uL (0-0.7); Eosinophils % (A) 4 %; HCT 36.9 % (39.0-53.0); HGB 11.3 gm/dL (13.0-17.5); Hypochromasia Slight; Lymphocytes # (A) 1.4 k/uL (1.0-4.8); Lymphocytes % (A) 23 %; MCH 27.7 pg (25.0-35.0); MCHC 30.7 g/dL (31.0-37.0); MCV 90.2 fL (80.0-100.0); Mean Platelet Volume 6.6; Monocytes # (A) 0.4 k/uL (0-1.0); Monocytes % (A) 6 %; Neutrophils # (A) 3.9 k/uL (1.3-7.7); Neutrophils % (A) 65 %; Platelet Count 235 k/uL (150-450); RBC 4.09 m/uL (4.30-5.90); RDW 15.2 % (11.5-15.5)
[2019-09-10 08:17] LABS: African American GFR (CKD) >90 (>60 ml/min/1.73 sqM); Blood Urea Nitrogen 23 mg/dL (9-20); Calcium 9.7 mg/dL (8.4-10.2); Chloride 85 mmol/L (98-107); Glucose 68 mg/dL (74-99); Potassium 3.6 mmol/L (3.5-5.1); Sodium 137 mmol/L (137-145)
[2019-09-10 08:24] LABS: Anion Gap 7 mmol/L
[2019-09-10] MEDS: IPRATROPIUM-ALBUTEROL 3 ML NEB INHALATION SCH ×4 (08:27→20:13)
[2019-09-10 08:28] LABS: Carbon Dioxide 45 mmol/L (22-30)
[2019-09-10] MEDS: POTASSIUM CHLORIDE ER 20 MEQ TAB.ER PO SCH (08:47)
[2019-09-10] MEDS: ASPIRIN 81 MG PO SCH (08:47)
[2019-09-10] MEDS: GABAPENTIN 300 MG CAP PO SCH (08:47)
[2019-09-10] MEDS: busPIRone HCl 5 MG TAB PO SCH ×2 (08:48→21:16)
[2019-09-10] MEDS: DULoxetine HCL 20 MG CAPSULE.DR PO SCH (08:48)
[2019-09-10] MEDS: LIDOCAINE 5% PATCH TOPICAL SCH (08:49)
[2019-09-10] MEDS: HYDROCORTISONE 10 MG TAB PO SCH ×2 (08:49→21:15)
[2019-09-10] MEDS: SENNOSIDES 8.6 MG TAB PO PRN (08:56)
--- NOTE | 2019-09-10 10:37 | PN ---
PROGRESS NOTE DATE OF SERVICE: September 10, 2019 This is a 58-year-old male with multiple admissions recently to the hospital. He was admitted this time on September 06. He came in primarily for shortness of breath and chest pain. He was found to have a right-sided pleural effusion. In the past, he was drained by Dr. Hendrickson and 850-900 mL was removed. On his more recent admission, because of concerns of loculated effusion, Dr. Patel attempted thoracentesis and only about 20 mL was removed. I did ask cardiothoracic to see the patient. They were not really excited about putting in a PleurX catheter or chest tube in this individual. Part of it was because the patient's likely pleural effusion explanation relates to congestive heart failure. The other reason related to the fact that the patient had been on a factor Xa inhibitor. Nonetheless, the factor Xa inhibitor has been discontinued. We will either have Interventional Radiology or my partner to consider thoracentesis early this week. In addition, we upped his Lasix dose to see whether or not the pleural effusion would improve despite diuresis. Currently, the patient is resting comfortably. His primary issue is pain not shortness of breath. He does have a sharp pain in the right posterior chest area. PHYSICAL EXAMINATION: VITAL SIGNS: Current vital signs are reviewed temperature 97.3, heart rate 74, respiratory rate 16, blood pressure 112/64, mean 85, 2 L saturation 97%. GENERAL: He appears in no acute distress. HEENT examination is grossly unremarkable. Nasal O2 noted. NECK: Supple. Full range of motion. No adenopathy or thyromegaly. Neck veins are flat. CARDIOVASCULAR examination reveals regular rhythm and rate. S1, S2 normal. LUNGS: Diminished breath sounds on the right. Dullness at the right base. No crackles. No wheezes. The left lung is essentially clear. ABDOMEN: Soft. Bowel sounds are heard. EXTREMITIES are intact. He does have some mild edema. SKIN: Without rash. NEUROLOGIC: Examination reveals profound weakness to lower extremities. LAB DATA: Reviewed. White count 6, hemoglobin 11.3, hematocrit 36.9, platelet count 335,000. Sodium 137, potassium 3.6, chloride 85, CO2 of 45. Anion gap 7. BUN and creatinine were 23 and 0.79. The rest of the laboratory data is normal. Microbiologic data is negative. X-RAY: Chest x-ray from yesterday shows an enlarging right-sided pleural effusion. ASSESSMENT: 1. Right-sided chest discomfort, sharp, secondary to recurrent moderate to large right- sided pleural effusion which appears to be somewhat loculated. 2. History of atrial fibrillation, previously on Xarelto. 3. Chronic obstructive pulmonary disease/asthma. 4. History of skin cancer. 5. History of heart failure. 6. History of cerebrovascular accident. 7. Diabetes mellitus. 8. History of deep vein thrombosis/pulmonary embolism. 9. Gastroesophageal reflux disease. 10.History of gastrointestinal bleed. 11.Hyperlipidemia. 12.Hypertension. 13.Degenerative joint disease. 14.History of sleep apnea syndrome. 15.General medical debility. PLAN: I did ask Cardiothoracic Service to see the patient for consideration of chest tube drainage and/or PleurX catheter. They would prefer that we either attempt another thoracentesis and/or have Interventional Radiology to do a thoracentesis. The patient had been on Xarelto. It was just recently stopped. The patient will be evaluated by my partner and/or Interventional Radiology for possible thoracentesis. Additional recommendations and suggestions are forthcoming. In the meantime, if his lab data is okay, we will increase his diuretic therapy. MMODL / IJN: [id number] /
--- NOTE | 2019-09-10 15:30 | P.PN ---
Subjective Progress Note Date: 09/10/19 Principal diagnosis: Right-sided pleural effusion Mr. Saha is a 58-year-old male with a past medical history of atrial fibrillation, asthma, heart failure, COPD, diverticulitis, DVT, GERD, GI., Hypertension, hyperlipidemia, osteoarthritis, obstructive sleep apnea, diabetic neuropathy, basal cell skin cancer status post removal coming into the hospital with a chief complaint of difficulty in breathing. Patient had multiple hospital admissions since January of this year. Patient has a hospital bed at home due to chronic debility. Patient presents this time to the hospital with worsening of difficulty in breathing. So he had a CT chest done showing worsening of right-sided pleural effusion and so he has been admitted for it. On 09/10/2019 - no acute events from overnight reported by nursing staff. Patient is lying in bed comfortably appears to be in no acute distress. He states that his difficulty in breathing is at baseline. No cough. No fever chills or rigors. He denies having any chest pain or palpitations. Patient has pain in both his bilateral lower extremities due to peripheral neuropathy and this has been ongoing no new changes. He also reports having chronic left knee pain that is slightly getting worse and the lidocaine patch has been helping him. No other complaints. Active Medications Acetaminophen (Tylenol Tab) 650 mg PO Q6HR PRN PRN Reason: Mild Pain or Fever > 100.5 Hydrocodone Bitart/Acetaminophen ([place] 5-325) 1 each PO Q6H PRN PRN Reason: Pain Last Admin: 09/10/19 11:15 Dose: 1 each Documented by: Albuterol/Ipratropium (Duoneb 0.5 Mg-3 Mg/3 Ml Soln) 3 ml INHALATION RT-QID [facility] Last Admin: 09/10/19 15:10 Dose: 3 ml Documented by: Aspirin (Aspirin) 81 mg PO DAILY [facility] Last Admin: 09/10/19 08:47 Dose: 81 mg Documented by: Atorvastatin Calcium (Lipitor) 10 mg PO HS [facility] Last Admin: 09/09/19 20:55 Dose: 10 mg Documented by: Buspirone HCl (Buspar) 5 mg PO BID [facility] Last Admin: 09/10/19 08:48 Dose: 5 mg Documented by: Diltiazem HCl (Cardizem Oral) 30 mg PO Q6HR [facility] Last Admin: 09/10/19 11:15 Dose: 30 mg Documented by: Duloxetine HCl (Cymbalta) 40 mg PO DAILY [facility] Last Admin: 09/10/19 08:48 Dose: 40 mg Documented by: Ergocalciferol (Vitamin D2) 50,000 unit PO WE [facility] Furosemide (Lasix) 60 mg IV Q8HR [facility] Gabapentin (Neurontin) 600 mg PO DAILY [facility] Last Admin: 09/10/19 08:47 Dose: 600 mg Documented by: Heparin Sodium (Porcine) (Heparin) 5,000 unit SQ Q8HR [facility] Last Admin: 09/10/19 08:48 Dose: 5,000 unit Documented by: Hydrocortisone (Cortef) 10 mg PO BID [facility] Last Admin: 09/10/19 08:49 Dose: 10 mg Documented by: Sodium Chloride (Saline 0.9%) 1,000 mls @ 20 mls/hr IV .Q24H [facility] Last Admin: 09/10/19 00:47 Dose: Not Given Documented by: Ibuprofen (Motrin) 400 mg PO Q6HR PRN PRN Reason: Mild Pain or Fever > 100.5 Last Admin: 09/10/19 13:44 Dose: 400 mg Documented by: Lidocaine (Lidoderm) 1 patch TOPICAL DAILY [facility] Last Admin: 09/10/19 08:49 Dose: 1 patch Documented by: Melatonin (Melatonin) [address] [facility] Last Admin: 09/09/19 20:55 Dose: 5 mg Documented by: Morphine Sulfate (Morphine Sulfate (Inj)) 4 mg IV Q4HR PRN PRN Reason: Severe Pain Naloxone HCl (Narcan) 0.2 mg IV Q2M PRN PRN Reason: Opioid Reversal Olanzapine (Zyprexa) 20 mg PO HS [facility] Last Admin: 09/09/19 20:56 Dose: 20 mg Documented by: Ondansetron HCl (Zofran) 4 mg IVP Q8HR PRN PRN Reason: Nausea And Vomiting Potassium Chloride (K-Dur 20) 20 meq PO DAILY [facility] Last Admin: 09/10/19 08:47 Dose: 20 meq Documented by: Senna (Senokot) 8.6 mg PO DAILY PRN PRN Reason: Constipation Last Admin: 09/10/19 08:56 Dose: 8.6 mg Documented by: Objective - Vital Signs Vital signs: Vital Signs Temp 97.8 F 09/10/19 13:00 Pulse 82 09/10/19 15:20 Resp 19 09/10/19 13:00 BP 123/67 09/10/19 13:00 Pulse Ox 95 09/10/19 13:00 Intake & Output 09/09/19 09/10/19 09/10/19 18:59 06:59 18:59 Intake Total 1560 1200 Output Total 1999 Balance 1560 -800 Weight 183.5 kg Intake: Intake, IV Titration 0 Amount Sodium Chloride 0.9% 1, 0 000 ml @ 20 mls/hr IV . Q24H [facility] Rx#:[id number] Oral 1560 1200 Output: Urine 1999 Other: Voiding Method Urinal Urinal # Voids 3 - Exam GENERAL: Laying in bed, awake, comfortable EYES: Pupils equal. Conjunctiva normal. NECK: Neck is short and thick, JVD unable to assess, mass not palpable. HEART: Heart sounds are distant. EXTREMITIES: Bilateral pitting edema LUNGS: Respiratory rate increased, diminished breath sounds. ABDOMEN: Soft, nontender, liver spleen not palpable, no masses palpable. NEUROLOGICAL: Cranial nerves grossly intact; no facial asymmetry, decreased power in both lower extremity. Left knee exam: No swelling or redness. Lidocaine patch in place. Mild tenderness on the lateral side. - Labs CBC & Chem 7: 09/10/19 07:17 09/10/19 07:17 Labs: Abnormal Lab Results - Last 24 Hours (Table) 09/10/19 09/10/19 Range/Units 07:17 07:17 RBC 4.09 L (4.30-5.90) m/uL Hgb 11.3 L (13.0-17.5) gm/dL Hct 36.9 L (39.0-53.0) % MCHC 30.7 L (31.0-37.0) g/dL Chloride 85 L (98-107) mmol/L Carbon Dioxide 45 H* (22-30) mmol/L BUN 23 H (9-20) mg/dL Glucose 68 L (74-99) mg/dL Assessment and Plan Assessment: Assessment: -Recurrent acute on chronic large right-sided pleural effusion, symptomatic -Chronic congestive heart failure from diastolic dysfunction EF 55-60% - Contraction alkalosis -Hypertensive heart disease -Paroxysmal atrial fibrillation currently in sinus rhythm -Psuedo-seizures with extensive workup at [facility] in the past - CK D stage III -Morbid obesity BMI 45.4 -Diabetes mellitus type 2 -Bipolar disorder -Medical debility -Schizoaffective disorder, bipolar disorde -ALEXIS PLAN: Patient has history of recurrent right-sided pleural effusion. Pulmonary Dr. Rondon following the patient for this. Plan for thoracentesis by pulmonary or interventional radiology in 2-[address] surgery has been consulted for possible Pleurx catheter placement. Patient is currently off of Xarelto since 09/07/19 . Continue the patient on current medication regimen. Further recommendations to follow depending on the progress of the patient.
[2019-09-10] MEDS: FUROSEMIDE 10 MG/ML 10 ML VIAL IV SCH (16:04)
[2019-09-10] MEDS: MELATONIN 5 MG TABLET PO SCH (21:16)
[2019-09-10] MEDS: OLANZapine 10 MG TAB PO SCH (21:16)
[2019-09-10] MEDS: ATORVASTATIN 10 MG TAB PO SCH (21:16)
[2019-09-11] MEDS: DILTIAZEM ORAL 30 MG TAB PO SCH ×5 (00:22→23:44)
[2019-09-11] MEDS: FUROSEMIDE 10 MG/ML 10 ML VIAL IV SCH ×4 (00:22→23:44)
[2019-09-11] MEDS: HEPARIN SODIUM,PORCINE 5,000 UNIT/ML 1 ML VIAL SQ SCH ×4 (00:22→23:44)
[2019-09-11] MEDS: SODIUM CHLORIDE 0.9% 1,000 ML IV SCH (05:42)
[2019-09-11] MEDS: HYDROcodone/APAP 5-325MG 1 EACH TAB PO PRN ×3 (05:43→17:59)
--- NOTE | 2019-09-11 06:40 | P.CONS ---
History of Present Illness - Chief Complaint Medical debility - History of Present Illness I had the opportunity to see patient for inpatient rehab consultation with regard to medical debility. He was admitted to [facility] September 07 with increasing shortness of breath. Chest x-rays, chest ultrasound and chest CTs follow right pleural effusion and note groundglass appearance. Followed by pulmonary, Dr. Andrea. Did undergo thoracentesis. PT and OT prescribed. Previous functional history as elicited from patient: 58 year old right-handed white male who is lives in one floor home with son and daughter. Son does the cooking, laundry, driving. Patient on disability/group home. Receives physical assistance for dressing and bathing and for mobility and this has been so for at least the last [address] Romano visiting physician. Patient denies tobacco or alcohol. Review of Systems Review of systems: ENT: Denies sneezes or discharge. Eyes: Denies discharge or photophobia. Cardiac: Denies chest pain or palpitation. Pulmonary: Mild or resolved shortness of breath. Gastrointestinal: Denies nausea, emesis, constipation, diarrhea. Genitourinary: Denies discharge or frequency. Musculoskeletal: Denies muscle or bone aches. Neurologic: Poor voluntary movement legs. Endocrine: Denies shakes or sweats. Oncology: Denies cancers. Dermatologic: Denies rash, itching, pruritus. ALLERGY/immunology: Denies sneezes, rashes. Past Medical History Past Medical History: Atrial Fibrillation, Asthma, Cancer, Heart Failure, COPD, CVA/TIA, Diabetes Mellitus, Deep Vein Thrombosis (DVT), GERD/Reflux, GI Bleed, Hyperlipidemia, Hypertension, Osteoarthritis (OA), Pneumonia, Pulmonary Embolus (PE), Renal Disease, Respiratory Disorder, Sleep Apnea/CPAP/BIPAP Additional Past Medical History / Comment(s): Pt recently admitted to [facility] on 08/05/19 with acute on chronic CHF/abnormal ECHO-see report/paroxysmal afib/bilateral pleural effusions with R sided thoracentesis. Other hx: Pt denies diabetes stating he has hypoglycemia/pt recently transfered to [facility] for endocrinology consultation-states he wasn't told anything new, states he has bilateral feet neuropathy, colitis, chronic diffuse abdominal pain, chronic generalized pain, fluid retention, bedbound, lower GI bleed, hiatal hernia, DVT in leg which traveled to his lung, DDD, scoliosis, ALEXIS without device, CKD stage III, pseudoseizures with past extensive work up thru H, basal cell skin cancer removed from face. History of Any Multi-Drug Resistant Organisms: MRSA Year Discovered:: AUG 2018 MDRO Source:: sputum Past Surgical History: Appendectomy, Bariatric Surgery, Heart Catheterization, Hernia Repair, Joint Replacement, Orthopedic Surgery Additional Past Surgical History / Comment(s): Gastric sleeve in 2014, L inguinal hernia repair, R elbow surgery x2, total R hip arthroplasty, L knee arthroscopy/ACL surgery, R ankle ORIF, EGD, colonoscopy, basal cell skin cancer from face, surgery for varicele. Past Anesthesia/Blood Transfusion Reactions: Previous Problems w/ Anesthesia Additional Past Anesthesia/Blood Transfusion Reaction / Comm: STATES HE WAS TOLD HE WAS A DIFFICULT INTUBATION WITH GASTRIC SLEEVE SURGERY, Past Psychological History: Anxiety, Depression, Panic Disorder, Schizoaffective Disorder Additional Psychological History / Comment(s): Pt resides with his son. states his home care services just stopped 09/06/19 He states he has been bedbound past few months. Pt states he gets paranoid at times. Smoking Status: Former smoker Past Alcohol Use History: None Reported Additional Past Alcohol Use History / Comment(s): STARTED SMOKING AT AGE 15 QUIT SMOKING 1998, smoked 4 cigerettes- 1PPD FORMER ETOH ABUSE. Pt states QUIT 2012 Past Drug Use History: None Reported Additional Drug Use History / Comment(s): PAST HX OF MARIJUANA USE, DENIES USE IN YEARS. - Past Family History Father Family Medical History: Cancer Additional Family Medical History / Comment(s): LUNG CA Mother Family Medical History: Coronary Artery Disease (CAD) Additional Family Medical History / Comment(s): Mother of an infection. Medications and Allergies Home Medications Medication Instructions Recorded Confirmed Type OLANZapine [ZyPREXA] 20 mg PO HS 03/18/19 09/07/19 History Gabapentin [Neurontin] 600 mg PO DAILY 07/14/19 09/07/19 History HYDROcodone/APAP 5-325MG [[place]es 1 tab PO Q6H PRN 07/14/19 09/07/19 History 5-325] Rivaroxaban [Xarelto] 20 mg PO DAILY 07/14/19 09/07/19 History DULoxetine HCL [Cymbalta] 40 mg PO DAILY 07/15/19 09/07/19 History Diltiazem HCl 30 mg PO Q6H 07/15/19 09/07/19 History busPIRone HCl [Buspar] 5 mg PO BID 07/15/19 09/07/19 History Albuterol Inhaler [Ventolin Hfa 2 puff INHALATION RT-Q6H PRN 08/03/19 09/07/19 History Inhaler] Aspirin EC [Ecotrin Low Dose] 81 mg PO DAILY 08/03/19 09/07/19 History Atorvastatin [Lipitor] 10 mg PO HS 08/03/19 09/07/19 History Ergocalciferol (Vitamin D2) 50,000 unit PO WE 08/03/19 09/07/19 History [Vitamin D2] Hydrocortisone [Cortef] 10 mg PO BID 08/03/19 09/07/19 History Lidocaine 5% Patch [Lidoderm 5% 1 patch TOPICAL DAILY 08/03/19 09/07/19 History Patch] Melatonin 5 mg PO HS 08/03/19 09/07/19 History Tiotropium 18 Mcg/Puff [Spiriva] 1 puff INHALATION RT-DAILY 08/03/19 09/07/19 History Potassium Chloride ER [K-Dur 20] 20 meq PO DAILY #30 tab 08/07/19 09/07/19 Rx Furosemide [Lasix] 40 mg PO BID #60 tab 08/18/19 09/07/19 Rx Albuterol Nebulized [Ventolin 2.5 mg INHALATION RT-Q6H PRN 09/07/19 09/07/19 History Nebulized] Allergies Allergy/AdvReac Type Severity Reaction Status Date / Time codeine Allergy Severe Swelling Verified 09/07/19 08:15 OF THROAT WITH COUGH SYRUP chlorpheniramine Allergy Unknown Verified 09/07/19 08:15 febuxostat [From Uloric] Allergy Unknown Verified 09/07/19 08:15 phenylephrine Allergy Unknown Verified 09/07/19 08:15 piperacillin sodium Allergy Unknown Verified 09/07/19 08:15 [From Zosyn] tazobactam sodium Allergy Unknown Verified 09/07/19 08:15 [From Zosyn] Physical Exam Vitals: Vital Signs Temp Pulse Pulse Resp BP Pulse Ox 09/11/19 04:47 97.5 F L 73 16 128/77 97 09/11/19 00:13 97.8 F 75 16 127/61 94 L 09/10/19 21:00 98.8 F 76 16 114/62 96 09/10/19 20:28 80 09/10/19 20:13 82 96 09/10/19 16:00 80 19 09/10/19 15:20 82 09/10/19 15:10 80 09/10/19 13:00 97.8 F 80 19 123/67 95 09/10/19 11:44 79 09/10/19 11:34 76 09/10/19 08:40 74 09/10/19 08:27 72 09/10/19 08:00 80 19 Intake and Output 09/10/19 09/10/19 09/11/19 14:59 22:59 06:59 Intake Total 420 1800 Output Total 873 702 6652 Balance -800 -380 600 Intake: Intake, IV Titration 60 Amount Sodium Chloride 0.9% 1, 60 000 ml @ 20 mls/hr IV . Q24H [facility] Rx#:[id number] Oral 360 1800 Output: Urine 501 760 1873 Other: Voiding Method Urinal Urinal Urinal # Voids 3 # Bowel Movements 1 Weight 182.5 kg Skin: Good color, texture, turgor. General: Obese build and comfortable appearance. Head: Normocephalic, atraumatic. Eyes: Symmetric. Pupils equal round. Ears: Symmetric. Hearing within normal limits. Mouth: Clear. Neck: Supple. Carotid without bruit. Cardiac: Regular rate and rhythm. Lungs: Clear anteriorly and posteriorly. Abdomen: Soft active nontender. Extremities: Normal tone. Neurological: Mental status: Alert, cooperative, pleasant. Cranial nerves: Symmetric facial tone and trapezius. Motor: Normal movement arms. Poor movement legs. Sensation: Intact arms and poor in legs. DTRs: Symmetric and equal throughout. Mobility: Requires physical assistance to sit up. Results CBC & Chem 7: 09/10/19 07:17 09/10/19 07:17 Labs: Abnormal Lab Results - Last 24 Hours (Table) 09/10/19 09/10/19 Range/Units 07:17 07:17 RBC 4.09 L (4.30-5.90) m/uL Hgb 11.3 L (13.0-17.5) gm/dL Hct 36.9 L (39.0-53.0) % MCHC 30.7 L (31.0-37.0) g/dL Chloride 85 L (98-107) mmol/L Carbon Dioxide 45 H* (22-30) mmol/L BUN 23 H (9-20) mg/dL Glucose 68 L (74-99) mg/dL Assessment and Plan (1) C. difficile colitis Current Visit: No Status: Acute Code(s): A04.72 - ENTEROCOLITIS D/T CLOSTRIDIUM DIFFICILE, NOT SPCF RECUR SNOMED Code(s): 300571244 (2) Community acquired pneumonia Current Visit: No Status: Acute Code(s): J18.9 - PNEUMONIA, UNSPECIFIED ORGANISM SNOMED Code(s): 851179366 Plan: Impression: 1. Medical debility. 2. Community-acquired pneumonia. 3. C. difficile colitis, VRE. 4. Morbid obesity. 5. Hypertension. 6. History of PE and DVT. 7. Osteoarthritis. Comments and plan: PT and OT prescribed. Rehab prognosis guarded as patient has really had poor function for at least the last 10 months.
[2019-09-11] MEDS: DULoxetine HCL 20 MG CAPSULE.DR PO SCH (07:26)
[2019-09-11] MEDS: HYDROCORTISONE 10 MG TAB PO SCH ×2 (07:26→22:03)
[2019-09-11] MEDS: POTASSIUM CHLORIDE ER 20 MEQ TAB.ER PO SCH ×4 (07:26→14:42)
[2019-09-11] MEDS: GABAPENTIN 300 MG CAP PO SCH (07:26)
[2019-09-11] MEDS: busPIRone HCl 5 MG TAB PO SCH ×2 (07:26→22:04)
[2019-09-11] MEDS: ASPIRIN 81 MG PO SCH (07:26)
[2019-09-11] MEDS: LIDOCAINE 5% PATCH TOPICAL SCH (07:27)
[2019-09-11] MEDS: IBUPROFEN 400 MG TAB PO PRN ×2 (07:28→14:38)
[2019-09-11 08:08] LABS: African American GFR (CKD) >90 (>60 ml/min/1.73 sqM); Blood Urea Nitrogen 24 mg/dL (9-20); Calcium 9.9 mg/dL (8.4-10.2); Chloride 84 mmol/L (98-107); Glucose 76 mg/dL (74-99); Potassium 3.4 mmol/L (3.5-5.1); Sodium 138 mmol/L (137-145)
[2019-09-11] MEDS: IPRATROPIUM-ALBUTEROL 3 ML NEB INHALATION SCH ×4 (08:13→20:00)
[2019-09-11 08:15] LABS: Anion Gap 6 mmol/L
[2019-09-11 08:19] LABS: Carbon Dioxide 48 mmol/L (22-30)
--- NOTE | 2019-09-11 10:46 | US ---
Ultrasound-guided therapeutic and diagnostic thoracentesis DATE OF EXAM: 09/11/2019 CLINICAL HISTORY: Pleural effusion The procedure was discussed with the patient. The risks, complications, benefits, and alternatives we re discussed and any questions were answered. Informed consent was obtained. The patient could not position properly to have safe access in the pleural space the procedure was re quested by the patient to be discontinued. IMPRESSION: 1. Discontinued thoracentesis
[2019-09-11] MEDS ORDERED: Potassium Replacement Protocol 1 EACH MISC MISCELLANE PRN (12:17)
[2019-09-11] MEDS ORDERED: LIDOCAINE 5% PATCH TOPICAL ONE (13:00)
--- NOTE | 2019-09-11 18:25 | P.PN ---
Subjective Progress Note Date: 09/11/19 Principal diagnosis: Shortness of breath, right-sided pleural effusion On 09/11/2019 patient seen in follow-up on medical surgical floor. He had just returned from a ultrasound with thoracentesis attempted by interventional radiology and interventional radiologist was unsuccessful in completing a thoracentesis related to difficulty positioning the patient and increased disco mfort patient's inability to tolerate the procedure. Right now patient is seen resting in bed, he is in no acute distress, he is on 3 L of oxygen with a pulse ox of 97%, appears comfortable, denies any acute dyspnea, he is afebrile, hemodynamically stable, denies any chest pain. No cough or congestion. No fever or chills, no chest pain or palpitations. Objective - Vital Signs Vital signs: Vital Signs Temp 98.7 F 09/11/19 11:47 Pulse 76 09/11/19 16:23 Resp 17 09/11/19 11:47 BP 111/65 09/11/19 11:47 Pulse Ox 97 09/11/19 11:47 Intake & Output 09/10/19 09/11/19 09/11/19 18:59 06:59 18:59 Intake Total 360 1860 Output Total 1600 1200 550 Balance -1240 660 -550 Weight 182.5 kg Intake: Intake, IV Titration 60 Amount Sodium Chloride 0.9% 1, 60 000 ml @ 20 mls/hr IV . Q24H [facility] Rx#:[id number] Oral 360 1800 Output: Urine 1600 1200 550 Other: Voiding Method Urinal Urinal Urinal # Voids 3 # Bowel Movements 1 - Exam GENERAL EXAM: Alert, pleasant, 58-year-old white male, comfortable in no apparent distress. HEAD: Normocephalic/atraumatic. EYES: Normal reaction of pupils, equal size. Conjunctiva pink, sclera white. NOSE: Clear with pink turbinates. THROAT: No erythema or exudates. NECK: No masses, no JVD, no thyroid enlargement, no adenopathy. CHEST: No chest wall deformity. Symmetrical expansion. LUNGS: Equal air entry with diminished breath sounds over right lower lobe, with basilar crackles, no wheeze, rhonchi or dullness. CVS: Regular rate and rhythm, normal S1 and S2, no gallops, no murmurs, no rubs ABDOMEN: Soft, nontender. No hepatosplenomegaly, normal bowel sounds, no guarding or rigidity. EXTREMITIES: No clubbing, no edema, no cyanosis, 2+ pulses and upper and lower extremities. MUSCULOSKELETAL: Muscle strength and tone normal. SPINE: No scoliosis or deformity SKIN: No rashes CENTRAL NERVOUS SYSTEM: Alert and oriented -3. No focal deficits, tone is normal in all 4 extremities. PSYCHIATRIC: Alert and oriented -3. Appropriate affect. Intact judgment and insight. - Labs CBC & Chem 7: 09/10/19 07:17 09/11/19 16:29 Labs: Abnormal Lab Results - Last 24 Hours (Table) 09/11/19 Range/Units 07:23 Potassium 3.4 L (3.5-5.1) mmol/L Chloride 84 L (98-107) mmol/L Carbon Dioxide 48 H* (22-30) mmol/L BUN 24 H (9-20) mg/dL Assessment and Plan Plan: Assessment: #1. Shortness of breath, and right-sided chest discomfort related to large right-sided pleural effusion which appears to be loculated #2. Previous hospitalization for right-sided pleural effusion with previous thoracentesis, negative cytology, and negative cultures, and fluid was transudate of in nature #3. Morbid obesity #4. Obstructive sleep apnea #5. History of DVT and pulmonary embolism on Zaroxolyn #6. Paroxysmal atrial fibrillation #7. Diabetes type II #8. COPD #9. Hyperlipidemia #10. Osteoarthritis/scoliosis of the spine, chronic difficulties with mobility related to morbid obesity and multiple orthopedic surgeries #11. Previous history of C. diff colitis #12. Gait dysfunction, is bedridden on a regular basis #13. Generalized weakness #14. Chronic pain #15. History of depression/bipolar disorder Plan: Patient had unsuccessful ultrasound-guided thoracentesis by interventional radiology, ultrasound the chest did reveal a sizable pocket of 12.8 centimeters of pleural fluid on the right, Xarelto is on hold, we will with right-sided thoracentesis by Dr. Hendrickson tomorrow. We discussed this with the patient was agreeable to proceed, for now continue with medical treatment. I performed a history & physical examination of the patient and discussed their management with my nurse practitioner, Sophia Martinez. I reviewed the nurse practitioner's note and agree with the documented findings and plan of care. Lung sounds are positive for diminished breath sounds. The findings and the i mpression was discussed with the patient. I attest to the documentation by the nurse practitioner. Time with Patient: Less than 30
[2019-09-11] MEDS: SENNOSIDES 8.6 MG TAB PO PRN (19:18)
--- NOTE | 2019-09-11 21:29 | P.PN ---
Subjective Progress Note Date: 09/11/19 Principal diagnosis: Right-sided pleural effusion, diastolic congestive heart failure Mr. Saha is a 58-year-old male with a past medical history of atrial fibrillation, asthma, heart failure, COPD, diverticulitis, DVT, GERD, GI., Hypertension, hyperlipidemia, osteoarthritis, obstructive sleep apnea, diabetic neuropathy, basal cell skin cancer status post removal coming into the hospital with a chief complaint of difficulty in breathing. Patient had multiple hospital admissions since January of this year. Patient has a hospital bed at home due to chronic debility. Patient presents this time to the hospital with worsening of difficulty in breathing. So he had a CT chest done showing worsening of right-sided pleural effusion and so he has been admitted for it. On 09/11 - Pt is lying in bed comfortably. IR attempted thoracentesis but failed as he could not be positioned due to pain and unable to tolerate the procedure. Patient wanted to abort the procedure. He is now in his bed and denies having any active issues. He was c/o pain in his left knee an hip and that he could not tolerate the procedure. Difficulty in breathing is the same, no worsening. Denies any chest pain or palpations. No abdominal pain, nausea , vomiting or diarrhea. His lower extremity swelling is the same. Vitals and labs reviewed. Active Medications Acetaminophen (Tylenol Tab) 650 mg PO Q6HR PRN PRN Reason: Mild Pain or Fever > 100.5 Hydrocodone Bitart/Acetaminophen ([place] 5-325) 1 each PO Q6H PRN PRN Reason: Pain Last Admin: 09/11/19 17:59 Dose: 1 each Documented by: Albuterol/Ipratropium (Duoneb 0.5 Mg-3 Mg/3 Ml Soln) 3 ml INHALATION RT-QID [facility] Last Admin: 09/11/19 20:00 Dose: 3 ml Documented by: Aspirin (Aspirin) 81 mg PO DAILY [facility] Last Admin: 09/11/19 07:26 Dose: 81 mg Documented by: Atorvastatin Calcium (Lipitor) 10 mg PO HS [facility] Last Admin: 09/10/19 21:16 Dose: 10 mg Documented by: Buspirone HCl (Buspar) 5 mg PO BID [facility] Last Admin: 09/11/19 07:26 Dose: 5 mg Documented by: Diltiazem HCl (Cardizem Oral) 30 mg PO Q6HR [facility] Last Admin: 09/11/19 17:06 Dose: 30 mg Documented by: Duloxetine HCl (Cymbalta) 40 mg PO DAILY [facility] Last Admin: 09/11/19 07:26 Dose: 40 mg Documented by: Ergocalciferol (Vitamin D2) 50,000 unit PO WE [facility] Furosemide (Lasix) 60 mg IV Q8HR [facility] Last Admin: 09/11/19 17:06 Dose: 60 mg Documented by: Gabapentin (Neurontin) 600 mg PO DAILY [facility] Last Admin: 09/11/19 07:26 Dose: 600 mg Documented by: Heparin Sodium (Porcine) (Heparin) 5,000 unit SQ Q8HR [facility] Last Admin: 09/11/19 17:06 Dose: 5,000 unit Documented by: Hydrocortisone (Cortef) 10 mg PO BID [facility] Last Admin: 09/11/19 07:26 Dose: 10 mg Documented by: Sodium Chloride (Saline 0.9%) 1,000 mls @ 20 mls/hr IV .Q24H [facility] Last Admin: 09/11/19 05:42 Dose: Not Given Documented by: Ibuprofen (Motrin) 400 mg PO Q6HR PRN PRN Reason: Mild Pain or Fever > 100.5 Last Admin: 09/11/19 14:38 Dose: 400 mg Documented by: Lidocaine (Lidoderm) 2 patch TOPICAL DAILY [facility] Melatonin (Melatonin) 5 mg PO [facility] Last Admin: 09/10/19 21:16 Dose: 5 mg Documented by: Miscellaneous Information (Potassium Per Protocol) 1 each MISCELLANE DAILY PRN; Protocol PRN Reason: Per Protocol Morphine Sulfate (Morphine Sulfate (Inj)) 4 mg IV Q4HR PRN PRN Reason: Severe Pain Naloxone HCl (Narcan) 0.2 mg IV Q2M PRN PRN Reason: Opioid Reversal Olanzapine (Zyprexa) 20 mg PO HS [facility] Last Admin: 09/10/19 21:16 Dose: 20 mg Documented by: Ondansetron HCl (Zofran) 4 mg IVP Q8HR PRN PRN Reason: Nausea And Vomiting Potassium Chloride (K-Dur 20) 20 meq PO DAILY [facility] Last Admin: 09/11/19 14:38 Dose: 20 meq Documented by: Senna (Senokot) 8.6 mg PO DAILY PRN PRN Reason: Constipation Last Admin: 09/11/19 19:18 Dose: 8.6 mg Documented by: Objective - Vital Signs Vital signs: Vital Signs Temp 98.7 F 09/11/19 11:47 Pulse 76 09/11/19 16:23 Resp 17 09/11/19 11:47 BP 111/65 09/11/19 11:47 Pulse Ox 97 09/11/19 11:47 Intake & Output 09/10/19 09/11/19 09/11/19 18:59 06:59 18:59 Intake Total 360 1860 Output Total 1600 1200 550 Balance -1240 660 -550 Weight 182.5 kg Intake: Intake, IV Titration 60 Amount Sodium Chloride 0.9% 1, 60 000 ml @ 20 mls/hr IV . Q24H [facility] Rx#:[id number] Oral 360 1800 Output: Urine 1600 1200 550 Other: Voiding Method Urinal Urinal Urinal # Voids 3 # Bowel Movements 1 - Exam GENERAL: Lying in bed, awake, comfortable EYES: Pupils equal. Conjunctiva normal. NECK: Neck is short and thick, JVD unable to assess, mass not palpable. HEART: Heart sounds are distant. EXTREMITIES: Bilateral pitting edema LUNGS: Respiratory rate increased, diminished more on the right than left . ABDOMEN: Soft, nontender, liver spleen not palpable, no masses palpable. NEUROLOGICAL: Cranial nerves grossly intact; no facial asymmetry, decreased power in both lower extremity. Left knee exam: No swelling or redness. Lidocaine patch in place. Mild tenderness on the lateral side. - Labs CBC & Chem 7: 09/10/19 07:17 09/11/19 16:29 Labs: Abnormal Lab Results - Last 24 Hours (Table) 09/11/19 Range/Units 07:23 Potassium 3.4 L (3.5-5.1) mmol/L Chloride 84 L (98-107) mmol/L Carbon Dioxide 48 H* (22-30) mmol/L BUN 24 H (9-20) mg/dL Assessment and Plan Assessment: Assessment: -Recurrent acute on chronic large right-sided pleural effusion, symptomatic -Chronic congestive heart failure from diastolic dysfunction EF 55-60% - Contraction alkalosis -Hypertensive heart disease -Paroxysmal atrial fibrillation currently in sinus rhythm -Psuedo-seizures with extensive workup at [facility] in the past - CK D stage III -Morbid obesity BMI 45.4 -Diabetes mellitus type 2 -Bipolar disorder -Medical debility -Schizoaffective disorder, bipolar disorder -ALEXIS PLAN: Patient has history of recurrent right-sided pleural effusion. Thoracentesis attempted by interventional radiology but failed due to unsuccessful positing of the patient. CT surgery has been consulted for possible Pleurx catheter placement. Patient is currently off of Xarelto since 09/07/[address] Hendrickson to attempt thoracentesis tomorrow. Continue the patient on current medication regimen. Further recommendations to follow depending on the progress of the patient.
[2019-09-11] MEDS: MELATONIN 5 MG TABLET PO SCH (22:03)
[2019-09-11] MEDS: OLANZapine 10 MG TAB PO SCH (22:03)
[2019-09-11] MEDS: ATORVASTATIN 10 MG TAB PO SCH (22:04)
[2019-09-12] MEDS: SODIUM CHLORIDE 0.9% 1,000 ML IV SCH (01:45)
[2019-09-12] MEDS: DILTIAZEM ORAL 30 MG TAB PO SCH ×3 (05:28→17:58)
[2019-09-12] MEDS: IPRATROPIUM-ALBUTEROL 3 ML NEB INHALATION SCH ×4 (08:16→19:48)
--- NOTE | 2019-09-12 08:50 | P.PN ---
Subjective Progress Note Date: 09/12/19 On today's evaluation of 09/12/2019 the patient has no specific complaints. Is complaining of some chronic shortness of breath and as mentioned earlier the patient has a right-sided pleural effusion that needs to be drained. Interventional radiology was unable to do with. I'm going to do this at the [facility]. I did this with the help of the nursing staff. The patient was able to sit up and I drained approximately 950 mL of turbid dark yellowish to reddish pleural effusion from the right without any complication. The chest x-rays to follow. The patient did have some cough on lying the procedure which ultimately subsided. The fluid will be sent for analysis. No other complaints otherwise. No chest pain. No pleurisy. No hemoptysis. No worsening in swelling in the lower extremities at this point in time Objective - Vital Signs Vital signs: Vital Signs Temp 97.7 F 09/12/19 07:38 Pulse 80 09/12/19 08:26 Resp 14 09/12/19 07:38 BP 113/65 09/12/19 07:38 Pulse Ox 92 L 09/12/19 07:38 Intake & Output 09/11/19 09/12/19 09/12/19 18:59 06:59 18:59 Intake Total 2340 Output Total 550 1400 Balance -550 940 Weight 180.076 kg Intake: Oral 2340 Output: Urine 550 1400 Other: Voiding Method Urinal Urinal - Exam GENERAL EXAM: Alert, pleasant, 58-year-old white male, comfortable in no apparent distress. HEAD: Normocephalic/atraumatic. EYES: Normal reaction of pupils, equal size. Conjunctiva pink, sclera white. NOSE: Clear with pink turbinates. THROAT: No erythema or exudates. NECK: No masses, no JVD, no thyroid enlargement, no adenopathy. CHEST: No chest wall deformity. Symmetrical expansion. LUNGS: Equal air entry with diminished breath sounds over right lower lobe, with basilar crackles, no wheeze, rhonchi or dullness. The patient diminished breath on the right lower lobe along with dullness to percussion which improved following the thoracentesis. CVS: Regular rate and rhythm, normal S1 and S2, no gallops, no murmurs, no rubs ABDOMEN: Soft, nontender. No hepatosplenomegaly, normal bowel sounds, no guarding or rigidity. EXTREMITIES: No clubbing, no edema, no cyanosis, 2+ pulses and upper and lower extremities. MUSCULOSKELETAL: Muscle strength and tone normal. SPINE: No scoliosis or deformity SKIN: No rashes CENTRAL NERVOUS SYSTEM: Alert and oriented -3. No focal deficits, tone is normal in all 4 extremities. PSYCHIATRIC: Alert and oriented -3. Appropriate affect. Intact judgment and insight. - Labs CBC & Chem 7: 09/10/19 07:17 09/11/19 16:29 Assessment and Plan Plan: #1. Shortness of breath, and right-sided chest discomfort related to large right-sided pleural effusion which appears to be loculated #2. Previous hospitalization for right-sided pleural effusion with previous thoracentesis, negative cytology, and negative cultures, and fluid was transudate of in nature #3. Morbid obesity #4. Obstructive sleep apnea #5. History of DVT and pulmonary embolism on Xarelto #6. Paroxysmal atrial fibrillation #7. Diabetes type II #8. COPD #9. Hyperlipidemia #10. Osteoarthritis/scoliosis of the spine, chronic difficulties with mobility related to morbid obesity and multiple orthopedic surgeries #11. Previous history of C. diff colitis #12. Gait dysfunction, he is bedridden on a regular basis #13. Generalized weakness #14. Chronic pain #15. History of depression/bipolar disorder Plan thoracentesis was done and total of 950 mL of pleural fluid aspirated from the right lung without any complications. Chest x-rays to follow. The fluid was sent for analysis. The patient is less short of breath lying a thoracentesis.. The exact cause of this pleural effusion is not clear. The patient's fluid was a transudate during the last evaluation. The fluid cytology was negative. CAT scan of the chest during his last hospitalization from 08/16/2019 was negative for any other acute abnormalities other than a large right-sided pleural effusion. The patient can be restarted back on Xarelto.
--- NOTE | 2019-09-12 09:30 | XR ---
EXAMINATION TYPE: XR chest 1V portable DATE OF EXAM: 09/12/2019 COMPARISON: 09/09/[address] chest dated 09/07/2019 HISTORY: Status post right-sided thoracentesis TECHNIQUE: Single frontal view of the chest is obtained. FINDINGS: No postprocedural pneumothorax seen. Improved right-sided pleural effusion is now small. En largement of the lizabeth bilaterally may relate to underlying pulmonary hypertension as enlargement pulm onary arteries were seen on the recent CT chest dated 09/07/2019. Left lung remains well aerated over all. Cardiomediastinal silhouette is partially obscured but enlarged. No acute osseous pathology. IMPRESSION: Improved now small right pleural effusion with associated right basilar airspace disease , likely compressive atelectasis. No postprocedural pneumothorax.
[2019-09-12] MEDS: FUROSEMIDE 10 MG/ML 10 ML VIAL IV SCH ×2 (10:03→16:36)
[2019-09-12] MEDS: ASPIRIN 81 MG PO SCH (10:04)
[2019-09-12] MEDS: busPIRone HCl 5 MG TAB PO SCH ×2 (10:05→21:18)
[2019-09-12] MEDS: GABAPENTIN 300 MG CAP PO SCH (10:06)
[2019-09-12] MEDS: DULoxetine HCL 20 MG CAPSULE.DR PO SCH (10:06)
[2019-09-12] MEDS: LIDOCAINE 5% PATCH TOPICAL SCH (10:07)
[2019-09-12] MEDS: HYDROCORTISONE 10 MG TAB PO SCH ×2 (10:07→21:17)
[2019-09-12] MEDS: RIVAROXABAN 20 MG TAB PO SCH (10:10)
[2019-09-12] MEDS: HYDROcodone/APAP 5-325MG 1 EACH TAB PO PRN ×2 (10:10→16:42)
[2019-09-12 10:21] LABS: Glucose,Whole Blood 86 mg/dL (75-99)
[2019-09-12] MEDS: HEPARIN SODIUM,PORCINE 5,000 UNIT/ML 1 ML VIAL SQ SCH (11:50)
--- NOTE | 2019-09-12 12:26 | PCN ---
PROCEDURE NOTE PREOPERATIVE DIAGNOSIS: Right-sided pleural effusion. POSTOPERATIVE DIAGNOSIS: Right-sided pleural effusion. A time-out was completed verifying correct patient, procedure, site, positioning , and implant (s) or special equipment if applicable. Ultrasound guidance was not used and appropriate fluid pocket was identified and marked. Patient was positioned, prepped and draped in usual sterile fashion. Lidocaine was used to anesthetize the area. A Thoracentesis catheter was introduced into the pleural space and fluid was removed. Blood loss was none. A chest x-ray shows no evidence of a pneumothorax. Total Fluid Removed 950 mL Color of Fluid Dark Turbid yellowish to reddish in color Patient tolerated the procedure well and there were no complications. MMODL / IJN: [id number] /
[2019-09-12] MEDS: IBUPROFEN 400 MG TAB PO PRN ×2 (12:46→21:19)
--- NOTE | 2019-09-12 15:25 | P.PN ---
Subjective Progress Note Date: 09/12/19 Principal diagnosis: Right-sided pleural effusion, diastolic congestive heart failure Mr. Saha is a 58-year-old male with a past medical history of atrial fibrillation, asthma, heart failure, COPD, diverticulitis, DVT, GERD, GI., Hypertension, hyperlipidemia, osteoarthritis, obstructive sleep apnea, diabetic neuropathy, basal cell skin cancer status post removal coming into the hospital with a chief complaint of difficulty in breathing. Patient had multiple hospital admissions since January of this year. Patient has a hospital bed at home due to chronic debility. Patient presents this time to the hospital with worsening of difficulty in breathing. So he had a CT chest done showing worsening of right-sided pleural effusion and so he has been admitted for it. On 09/11 - Pt is lying in bed comfortably. IR attempted thoracentesis but failed as he could not be positioned due to pain and unable to tolerate the procedure. Patient wanted to abort the procedure. He is now in his bed and denies having any active issues. He was c/o pain in his left knee an hip and that he could not tolerate the procedure. Difficulty in breathing is the same, no worsening. Denies any chest pain or palpations. No abdominal pain, nausea , vomiting or diarrhea. His lower extremity swelling is the same. Vitals and labs reviewed. 09/12/2019 Patient is lying in bed with the head of the bed elevated in no acute distress. Patient is O2 dependent at home and is currently at his baseline on 2 L via nasal cannula. Patient states that his shortness of breath has improved and a thoracentesis was done today with Dr. Hendrickson and per patient approximately 950 mL were removed today. Patient denies any chest pain or palpitations at this time. Patient is afebrile. Patient denies any nausea or vomiting and is tolerating diet. Guarded prognosis. Objective - Vital Signs Vital signs: Vital Signs Temp 97.4 F L 09/12/19 11:52 Pulse 90 09/12/19 11:52 Resp 14 09/12/19 11:52 BP 117/61 09/12/19 11:52 Pulse Ox 93 L 09/12/19 11:52 Intake & Output 09/11/19 09/12/19 09/12/19 18:59 06:59 18:59 Intake Total 2340 Output Total 550 1400 350 Balance -550 940 -350 Weight 180.076 kg Intake: Oral 2340 Output: Urine 550 1400 350 Other: Voiding Method Urinal Urinal Urinal - Exam GENERAL: Lying in bed, awake, comfortable in no acute distress. Vital signs are stable. EYES: Pupils equal. Conjunctiva normal. NECK: Neck is short and thick, JVD unable to assess, mass not palpable. HEART: Heart sounds are distant. EXTREMITIES: Bilateral pitting edema of the lower extremities noted LUNGS: Diminished breath sounds noted of the lung bases, diminished more on the right than left . Slightly improved status post thoracentesis done this morning with improved air entry ABDOMEN: Soft, obese. nontender, liver spleen not palpable, no masses palpable. NEUROLOGICAL: Cranial nerves grossly intact; no facial asymmetry, decreased power in both lower extremity. Left knee exam: No swelling or redness. Lidocaine patch in place. Mild tenderness on the lateral side. - Labs CBC & Chem 7: 09/10/19 07:17 09/11/19 16:29 Assessment and Plan Assessment: -Recurrent acute on chronic large right-sided pleural effusion, symptomatic. Patient underwent thoracentesis with Dr. Madhavi hand at the bedside and removed approximately 950 mL -Chronic congestive heart failure from diastolic dysfunction EF 55-60% - Contraction alkalosis -Hypertensive heart disease -Paroxysmal atrial fibrillation currently in sinus rhythm -Psuedo-seizures with extensive workup at [facility] in the past - CK D stage III -Morbid obesity BMI 45.4 -Diabetes mellitus type 2 -Bipolar disorder -Medical debility -Schizoaffective disorder, bipolar disorder -ALEXIS PLAN: Patient has history of recurrent right-sided pleural effusion. Thoracentesis done by Dr. Madhavi hand at the bedside. Pleural fluid was sent for analysis. Pulmonary is following closely. Per pulmonary recommendations patient may be resumed on anticoagulation Xarelto. CT surgery has been consulted for possible Pleurx catheter placement. Discussed discharge plans with the patient at length today and states he will be returning home with 24/7 care from his son and daughter as he owes rehab facilities thousands of dollars and cannot afford rehab at this time. Continue the patient on current medication regimen. Further recommendations to follow depending on the progress of the patient. Possible discharge in 24 hours.
[2019-09-12 20:11] LABS: Appearance,BF Cloudy; Color,BF Red; Nucleated Cells, Body Fluid 15000 /uL; RBC, Body Fluid 144500 /uL
[2019-09-12 20:13] LABS: Mononuclear WBC,Body Fluid 94 %; Polynuclear WBC,Body Fluid 4 %; Total Cells Counted,Body Fluid 100
[2019-09-12] MEDS: ATORVASTATIN 10 MG TAB PO SCH (21:17)
[2019-09-12] MEDS: OLANZapine 10 MG TAB PO SCH (21:18)
[2019-09-12] MEDS: SENNOSIDES 8.6 MG TAB PO PRN (21:18)
[2019-09-12] MEDS: MELATONIN 5 MG TABLET PO SCH (21:19)
[2019-09-12] MEDS ORDERED: HYDROcodone/APAP 5-325MG 1 EACH TAB ONE (23:55)
[2019-09-13] MEDS ORDERED: HYDROcodone/APAP 5-325MG 1 EACH TAB ONE (05:00)
[2019-09-13] MEDS ORDERED: DILTIAZEM ORAL 30 MG TAB ONE ×2 (05:00)
[2019-09-13] MEDS ORDERED: FUROSEMIDE 10 MG/ML 10 ML VIAL ONE (05:00)
[2019-09-13] MEDS ORDERED: IBUPROFEN 400 MG TAB ONE (05:00)
[2019-09-13] MEDS: DILTIAZEM ORAL 30 MG TAB PO SCH ×2 (07:42→11:47)
[2019-09-13] MEDS: SODIUM CHLORIDE 0.9% 1,000 ML IV SCH (07:42)
[2019-09-13] MEDS: FUROSEMIDE 10 MG/ML 10 ML VIAL IV SCH ×2 (07:42→09:06)
[2019-09-13 07:53] LABS: Glucose, BF Source Pleural Fluid; Glucose, Body Fluid 93 mg/dL; Total Protein, Body Fluid 4059 mg/dL
[2019-09-13] MEDS: IPRATROPIUM-ALBUTEROL 3 ML NEB INHALATION SCH ×2 (08:18→12:25)
[2019-09-13] MEDS ORDERED: ERGOCALCIFEROL 50,000 UNIT CAP PO SCH (09:00)
[2019-09-13] MEDS: busPIRone HCl 5 MG TAB PO SCH (09:08)
[2019-09-13] MEDS: ASPIRIN 81 MG PO SCH (09:08)
[2019-09-13] MEDS: DULoxetine HCL 20 MG CAPSULE.DR PO SCH (09:09)
[2019-09-13] MEDS: GABAPENTIN 300 MG CAP PO SCH (09:09)
[2019-09-13] MEDS: HYDROCORTISONE 10 MG TAB PO SCH (09:09)
[2019-09-13] MEDS: LIDOCAINE 5% PATCH TOPICAL SCH (09:09)
[2019-09-13] MEDS: POTASSIUM CHLORIDE ER 20 MEQ TAB.ER PO SCH (09:09)
[2019-09-13] MEDS: RIVAROXABAN 20 MG TAB PO SCH (09:10)
--- NOTE | 2019-09-13 10:27 | P.PN ---
Subjective Progress Note Date: 09/13/19 On today's evaluation of 09/13/2019 the patient is status post thoracentesis. A total of 1 L of fluid was removed from the right side. The fluid is more so on the next visit in nature based on elevated LDH and protein and this contrary to the findings that we had during his earlier procedure. Following the procedure the patient did not have any pneumothorax. The chest x-ray still showing some elevation of right hemidiaphragm and volume loss in the right lung base. He did express some pleuritic chest pain following thoracentesis especially with deep breathing and cough and ultimately this recovered. He is alert and well for now. Examination his breath sounds on the right lung base is improved. He is currently on oxygen at 2 L. Lower eczematous swelling is unchanged. No fever. No chills. No hemoptysis. CAT scan of the chest that was done during his early hospitalization was negative. Objective - Vital Signs Vital signs: Vital Signs Temp 97.1 F L 09/13/19 06:50 Pulse 80 09/13/19 08:30 Resp 14 09/13/19 06:50 BP 111/68 09/13/19 06:50 Pulse Ox 98 09/13/19 06:50 Intake & Output 09/12/19 09/13/19 09/13/19 18:59 06:59 18:59 Output Total 1450 450 Balance -1450 -450 Output: Urine 1450 450 Other: Voiding Method Urinal Urinal - Exam GENERAL EXAM: Alert, pleasant, 58-year-old white male, comfortable in no apparent distress. HEAD: Normocephalic/atraumatic. EYES: Normal reaction of pupils, equal size. Conjunctiva pink, sclera white. NOSE: Clear with pink turbinates. THROAT: No erythema or exudates. NECK: No masses, no JVD, no thyroid enlargement, no adenopathy. CHEST: No chest wall deformity. Symmetrical expansion. LUNGS: Equal air entry with diminished breath sounds over right lower lobe, with basilar crackles, no wheeze, rhonchi or dullness. The patient diminished breath on the right lower lobe along with dullness to percussion which improved following the thoracentesis. CVS: Regular rate and rhythm, normal S1 and S2, no gallops, no murmurs, no rubs ABDOMEN: Soft, nontender. No hepatosplenomegaly, normal bowel sounds, no guarding or rigidity. EXTREMITIES: No clubbing, no edema, no cyanosis, 2+ pulses and upper and lower extremities. MUSCULOSKELETAL: Muscle strength and tone normal. SPINE: No scoliosis or deformity SKIN: No rashes CENTRAL NERVOUS SYSTEM: Alert and oriented -3. No focal deficits, tone is normal in all 4 extremities. PSYCHIATRIC: Alert and oriented -3. Appropriate affect. Intact judgment and insight. - Labs CBC & Chem 7: 09/10/19 07:17 09/11/19 16:29 Labs: Microbiology - Last 24 Hours (Table) 09/12/19 12:35 Gram Stain - Preliminary Pleural Fluid Body Fluid Culture - Preliminary 09/12/19 12:35 Acid Fast Bacilli Culture - Preliminary Pleural Fluid 09/12/19 12:35 Fungal Culture - Preliminary Pleural Fluid Assessment and Plan Plan: #1. Shortness of breath, and right-sided chest discomfort related to large rig ht-sided pleural effusion which appears to be loculated. I performed a thoracentesis a total of 1 L of fluid was removed and the patient experienced some pleuritic chest pain following the procedure which ultimately recovered. The chest x-ray shows improvement in aeration in the right lung. There is some residual volume loss and atelectasis in the right lung base. The fluid characteristics contrary to the previous evaluation was an exudate. The cytology still pending for now. #2. Previous hospitalization for right-sided pleural effusion with previous thoracentesis, negative cytology, and negative cultures, and fluid was transudate of in nature #3. Morbid obesity #4. Obstructive sleep apnea #5. History of DVT and pulmonary embolism on Xarelto #6. Paroxysmal atrial fibrillation #7. Diabetes type II #8. COPD #9. Hyperlipidemia #10. Osteoarthritis/scoliosis of the spine, chronic difficulties with mobility related to morbid obesity and multiple orthopedic surgeries #11. Previous history of C. diff colitis #12. Gait dysfunction, he is bedridden on a regular basis #13. Generalized weakness #14. Chronic pain #15. History of depression/bipolar disorder Plan Awaiting final fluid cytology. Provide the patient incentive spirometer. Discharge planning is in progress. Back on Xarelto which she takes for long- term anticoagulation for atrial fibrillation. He is also on IV Lasix. We'll leave the diuresis to the medical team and will continue to follow. Already lost around 10 pounds. He is a negative fluid balance. We'll continue to follow.
[2019-09-13] MEDS: HYDROcodone/APAP 5-325MG 1 EACH TAB PO PRN (11:47)
[2019-09-13 11:48] VITALS: BP 115/60; RESP 16; TEMP 97.2
--- NOTE | 2019-09-13 12:31 | CDI ---
Documentation Clarification Form Date: 09/13/2019 12:07:19 PM From: Saima DiazMICHAEL, CCDS Admit Date: 09/08/2019 3:21:00 PM Patient Name: Donavon Saha Visit Number: [id number] Discharge Date: ATTENTION: The Clinical Documentation Specialists (CDI) and [facility] Coding Staff appreciate your assistance in clarifying documentation. Please respond to the clarification below the line at the bottom and electronically sign. The CDI & [facility] Coding staff will review the response and follow-up if needed. Please note: Queries are made part of the Legal Health Record. If you have any questions, please contact the author of this message via ITS. Dr. Ynes Hendrickson: Per the ED note, the patient presented with SOB, generalized weakness, chest tightness, fluid overload. History/Risk Factors: Bedbound, Previous thoracentesis for right pleural effusion twice. Obesity, BMI: 47.1, Sleep apnea, Atrial fibrillation, Asthma, CHF, COPD, CVA, DM, DVT, GERD, GI bleed, Hyperlipidemia, Hypertension, Pneumonia, PE, former smoker. Clinical Indicators: Presented as above. Repeat right side thoracentesis with 950 mL removed. Home O2 2Lnc Vital signs stable. PO 96 2 - 3Lnc. 92 RA LAB: CO2 43^^ RAD: CXR: large right side pleural effusion. Treatment: IV fl bolus, IV fluid rate 100, INH Albuterol, IV Lasix, O2 2-3Lnc. In your professional opinion, can you please clarify if these findings signify one of the following conditions? Respiratory Failure ruled out Respiratory Failure ruled in Chronic Respiratory Failure with Hypoxia with Hypercapnia Other Diagnosis, please specify Unable to determine (Last Query Form Revision: July 2019) Respiratory Failure ruled in Chronic Respiratory Failure with Hypoxia with Hypercapnia MTDD
[2019-09-13 12:37] VITALS: PULSE 84
[2019-09-13] MEDS: IBUPROFEN 400 MG TAB PO PRN (15:16)
--- NOTE | 2019-09-13 23:42 | P.DS ---
Providers Date of admission: 09/08/19 15:21 Expected date of discharge: 09/13/19 Attending physician: Roge Bashir Consults: 09/07/19 00:22 Consult Physician Stat Consulting Provider: Ralph Rondon Consult Reason/Comments: Pleural effusion Do you want consulting provider notified?: Yes, Notify in am 09/07/19 15:27 Consult Physician Routine Consulting Provider: Stiven Larson Consult Reason/Comments: Right chest tube or Pleurx catheter placement Do you want consulting provider notified?: Yes 09/08/19 18:02 Consult Physician Routine Consulting Provider: Dereje Hill Consult Reason/Comments: Pain management Do you want consulting provider notified?: Yes Primary care physician: [facility] Course: Chief Complaint: Short of breath Hospital course: This is a 58-year-old patient who follows with visiting physician Dr. Antelmo Steele. Patient has a rather extensive medical history. Patient presented increasing shortness of breath . Patient has not really walked since January of this year. Has a hospital bed at home. Chronic stable medical conditions include Diastolic CHF, paroxysmal atrial fibrillation, pseudoseizures with extensive work up including continuous EEG monitoring done at [facility] recently, morbid obesity, sleeve gastrectomy, COPD, diabetes mellitus,, bipolar disorder. Patient recently positive for C. diff.That failed vancomycin taper and was treated with Dificid. Patient also has bilateral pleural effusion on the large one on the right. In the beginning of July close to thousand cc were removed. Then attempted thoracentesis more recently. Patient now presents to the ER again with worsening difficulty breathing and some chest tightness. Also feels generalized weakness. No fever no chills. Has a dry cough. Again found of a significant left-sided pleural effusion. CT chest was done and ultrasound marked was done. Dr. Ruiz was consulted. Patient has chronic pain.patient was treated with IV Lasix. He did diurese well.on September 12 150 mL of thoracentesis was carried out.-It was the yellow-reddish color.it may be recalled that is had thoracentesis twice in the past.this was on the right side. Patient has been tolerating his diet well. it turned out to be an exudate. Cytology has a weight today was negative for malignant cells but the final results pending. Today-discussed with Dr. suarez. From pulmonary. Okay to discharge the patient. He'll follow-up. Care was discussed with the patient. Patient also reported that his close to 6 L in negative fluid balance. Patient was told to remain on a restricted fluid diet. Discussion and discharge planning more than 35 minutes consultation: Dr. Morgan from pulmonary Dr. Rueda from cardiothoracic surgery Physical examination: VITAL SIGNS: 97.2, 83, 16, 11 5/60, 95% on 2 L GENERAL: sitting up in the bed, comfortable EYES: Pupils equal. Conjunctiva normal. HEENT: External appearance of nose and ears normal, oral cavity grossly normal. NECK: Neck is short and thick, JVD unable to assess, mass not palpable. HEART: Heart sounds are distant, edema present. LUNGS: Respiratory rate increased, diminished breath sounds. ABDOMEN: Soft, nontender, liver spleen not palpable, no masses palpable. PSYCH: short Atricor mode affect normal NEUROLOGICAL: decreased power in both lower extremity. INVESTIGATIONS, reviewed in the clinical context: potassium 4.1 creatinine 0.77 ProBNP 76 Chest x-ray film personally reviewed by me-large right pleural effusion EKG tracing personally reviewed by me-normal sinus rhythm 2-D echocardiogram-severe concentric LVH, EF 60-65%, moderate tricuspid regurgitation Previous cytology of the fluid from a month ago shows negative for malignancy Assessment: -Recurrent acute on chronic large right-sided pleural effusion, symptomatic, exudate -Right-sided thoracentesis 950 mL -acute onChronic congestive heart failure from diastolic dysfunction EF 55-60% -Hypertensive heart disease -Paroxysmal atrial fibrillation currently in sinus rhythm, chronically Xarelto -psuedo-seizures with extensive workup at [facility] in the past -Morbid obesity BMI 45.4 -Diabetes mellitus type 2 -Bipolar disorder -Medical debility -Chronic pain syndrome disposition: Home Patient Condition at Discharge: Stable Plan - Discharge Summary Discharge Rx Participant: No New Discharge Prescriptions: Continue OLANZapine [ZyPREXA] 20 mg PO HS Rivaroxaban [Xarelto] 20 mg PO DAILY HYDROcodone/APAP 5-325MG [Beulah 5-325] 1 tab PO Q6H PRN PRN Reason: Pain Gabapentin [Neurontin] 600 mg PO DAILY busPIRone HCl [Buspar] 5 mg PO BID Diltiazem HCl 30 mg PO Q6H DULoxetine HCL [Cymbalta] 40 mg PO DAILY Atorvastatin [Lipitor] 10 mg PO HS Ergocalciferol (Vitamin D2) [Vitamin D2] 50,000 unit PO WE Lidocaine 5% Patch [Lidoderm 5% Patch] 1 patch TOPICAL DAILY Hydrocortisone [Cortef] 10 mg PO BID Albuterol Inhaler [Ventolin Hfa Inhaler] 2 puff INHALATION RT-Q6H PRN PRN Reason: Shortness Of Breath Tiotropium 18 Mcg/Puff [Spiriva] 1 puff INHALATION RT-DAILY Melatonin 5 mg PO HS Aspirin EC [Ecotrin Low Dose] 81 mg PO DAILY Potassium Chloride ER [K-Dur 20] 20 meq PO DAILY #30 tab Albuterol Nebulized [Ventolin Nebulized] 2.5 mg INHALATION RT-Q6H PRN PRN Reason: Shortness Of Breath Changed Furosemide [Lasix] 60 mg PO BID #60 tab Discharge Medication List OLANZapine [ZyPREXA] 20 mg PO HS 03/18/19 [History] Gabapentin [Neurontin] 600 mg PO DAILY 07/14/19 [History] HYDROcodone/APAP 5-325MG [Beulah 5-325] 1 tab PO Q6H PRN 07/14/19 [History] Rivaroxaban [Xarelto] 20 mg PO DAILY 07/14/19 [History] DULoxetine HCL [Cymbalta] 40 mg PO DAILY 07/15/19 [History] Diltiazem HCl 30 mg PO Q6H 07/15/19 [History] busPIRone HCl [Buspar] 5 mg PO BID 07/15/19 [History] Albuterol Inhaler [Ventolin Hfa Inhaler] 2 puff INHALATION RT-Q6H PRN 08/03/19 [History] Aspirin EC [Ecotrin Low Dose] 81 mg PO DAILY 08/03/19 [History] Atorvastatin [Lipitor] 10 mg PO HS 08/03/19 [History] Ergocalciferol (Vitamin D2) [Vitamin D2] 50,000 unit PO WE 08/03/19 [History] Hydrocortisone [Cortef] 10 mg PO BID 08/03/19 [History] Lidocaine 5% Patch [Lidoderm 5% Patch] 1 patch TOPICAL DAILY 08/03/19 [History] Melatonin 5 mg PO HS 08/03/19 [History] Tiotropium 18 Mcg/Puff [Spiriva] 1 puff INHALATION RT-DAILY 08/03/19 [History] Potassium Chloride ER [K-Dur 20] 20 meq PO DAILY #30 tab 08/07/19 [Rx] Albuterol Nebulized [Ventolin Nebulized] 2.5 mg INHALATION RT-Q6H PRN 09/07/19 [History] Furosemide [Lasix] 60 mg PO BID #60 tab 09/13/19 [Rx] Follow up Appointment(s)/Referral(s): [facility], [NON-STAFF] - 1-2 Days ([facility] will call you to set up schedule. If any questions please call agency. ) Ralph Rondon DO [Doctor of Osteopathic Medicine] - 09/19/19 1:15 pm Hugo Bailey MD [Primary Care Provider] - 1-2 days (Family to call Dr. Bailey's office to schedule visit. ) Patient Instructions/Handouts: Pleural Effusion (DC) Activity/Diet/Wound Care/Special Instructions: fluid restict 1800 cc/day BMP- 3 days Discharge Disposition: HOME WITH HOME HEALTH SERVICES
== END 2019-09-13 15:50 | disposition home health service (06) | DRG 291 ==
LOC: EC 21:46 → 3NMEDONC 09-07 00:07 → OBSVTOIN 09-08 15:21 → 3NMEDONC 09-09 17:42
PROVIDERS: ADMIT Hospitalist; ATTEND Hospitalist
PROC: 0W993ZZ Drainage of Right Pleural Cavity, Percutaneous Approach (ICD-10-PCS; principal; 2019-09-08)
DX: I13.0 Hypertensive heart and chronic kidney disease with heart failure and stage 1 through stage 4 chronic kidney disease, or unspecified chronic kidney disease (principal); I50.33 Acute on chronic diastolic (congestive) heart failure; J18.9 Pneumonia, unspecified organism; Z68.42 Body mass index [BMI] 45.0-49.9, adult; J90 Pleural effusion, not elsewhere classified; A04.72 Enterocolitis due to Clostridium difficile, not specified as recurrent; E87.3 Alkalosis; J44.0 Chronic obstructive pulmonary disease with (acute) lower respiratory infection; J98.19 Other pulmonary collapse; N18.3 Chronic kidney disease, stage 3 (moderate); I48.0 Paroxysmal atrial fibrillation; E66.01 Morbid (severe) obesity due to excess calories; F31.9 Bipolar disorder, unspecified; R53.81 Other malaise; G89.4 Chronic pain syndrome; E11.22 Type 2 diabetes mellitus with diabetic chronic kidney disease; E11.40 Type 2 diabetes mellitus with diabetic neuropathy, unspecified; E78.5 Hyperlipidemia, unspecified; F17.210 Nicotine dependence, cigarettes, uncomplicated; F25.9 Schizoaffective disorder, unspecified; F41.0 Panic disorder [episodic paroxysmal anxiety]; G40.909 Epilepsy, unspecified, not intractable, without status epilepticus; G47.33 Obstructive sleep apnea (adult) (pediatric); K21.9 Gastro-esophageal reflux disease without esophagitis; K59.00 Constipation, unspecified; M06.9 Rheumatoid arthritis, unspecified; M19.90 Unspecified osteoarthritis, unspecified site; M41.9 Scoliosis, unspecified; L30.9 Dermatitis, unspecified; Z74.01 Bed confinement status; Z79.01 Long term (current) use of anticoagulants; Z79.82 Long term (current) use of aspirin; Z79.899 Other long term (current) drug therapy; Z80.1 Family history of malignant neoplasm of trachea, bronchus and lung; Z85.828 Personal history of other malignant neoplasm of skin; Z82.49 Family history of ischemic heart disease and other diseases of the circulatory system; Z86.19 Personal history of other infectious and parasitic diseases; Z86.711 Personal history of pulmonary embolism; Z86.73 Personal history of transient ischemic attack (TIA), and cerebral infarction without residual deficits; Z86.718 Personal history of other venous thrombosis and embolism; Z96.641 Presence of right artificial hip joint; Z98.84 Bariatric surgery status; Z99.81 Dependence on supplemental oxygen
CPT/HCPCS: 36415; 71045; 71046; 71260; 76604; 80048; 80053; 82150; 82945; 83615; 83690; 83735; 83880; 84132; 84157; 84484; 85025; 85610; 85730; 87070; 87102; 87116; 87205; 87206; 87252; 87496; 87498; 87502; 87529; 87634; 87798; 88108; 88305; 89050; 93005; 94640; 94760; 96360; 96361; 99285

== ENCOUNTER 2019-09-15 20:00 | Observation (INO) | payer MEDICARE, BC ==
[2019-09-15] MEDS ORDERED: MAGNESIUM SULFATE-D5W PMX 1 GM in DEXTROSE/WATER 1 100ML.BAG IVPB SCH (20:15)
[2019-09-15] MEDS ORDERED: KETOROLAC 30 MG/ML 1 ML VIAL IVP STA (20:58)
[2019-09-15 20:59] LABS: Basophils # (A) 0.2 k/uL (0-0.2); Basophils % (A) 2 %; Eosinophils # (A) 0.2 k/uL (0-0.7); Eosinophils % (A) 2 %; HCT 40.8 % (39.0-53.0); HGB 12.6 gm/dL (13.0-17.5); Hypochromasia Slight; Lymphocytes # (A) 0.6 k/uL (1.0-4.8); Lymphocytes % (A) 7 %; MCH 27.7 pg (25.0-35.0); MCHC 30.8 g/dL (31.0-37.0); MCV 89.7 fL (80.0-100.0); Mean Platelet Volume 6.9; Monocytes # (A) 0.8 k/uL (0-1.0); Monocytes % (A) 8 %; Neutrophils # (A) 7.9 k/uL (1.3-7.7); Neutrophils % (A) 80 %; Platelet Count 272 k/uL (150-450); RBC 4.55 m/uL (4.30-5.90); RDW 15.1 % (11.5-15.5); WBC 9.9 k/uL (3.8-10.6)
--- NOTE | 2019-09-15 21:01 | XR ---
EXAMINATION TYPE: XR chest 1V portable DATE OF EXAM: 09/15/2019 COMPARISON: 09/12/2019 HISTORY: Chest pain TECHNIQUE: Single frontal view of the chest is obtained. FINDINGS: There is blunting right costophrenic angle. Left lung is clear. Heart is enlarged. Thoraci c aorta shows mild atheromatous change. There are chest leads. There is no gross heart failure. IMPRESSION: Moderate right pleural effusion unchanged. No gross heart failure.
[2019-09-15 21:07] LABS: African American GFR (CKD) >90 (>60 ml/min/1.73 sqM); Blood Urea Nitrogen 24 mg/dL (9-20); Chloride 91 mmol/L (98-107); Glucose 130 mg/dL (74-99); Non-African American GFR(CKD) >90 (>60 ml/min/1.73 sqM); Potassium 3.8 mmol/L (3.5-5.1); Sodium 139 mmol/L (137-145)
[2019-09-15 21:08] LABS: Partial Thromboplastin Time 35.1 sec (22.0-30.0); Prothrombin Time 10.9 sec (9.0-12.0)
[2019-09-15 21:15] LABS: Anion Gap 11 mmol/L
[2019-09-15 21:42] LABS: Carbon Dioxide 37 mmol/L (22-30)
--- NOTE | 2019-09-15 22:18 | ED ---
General Adult HPI - General Chief complaint: Chest Pain Stated complaint: Chest Pressure Time Seen by Provider: 09/15/19 20:15 Source: EMS Mode of arrival: EMS Limitations: no limitations - History of Present Illness Initial comments: Dictation was produced using [employer] dictation software. please excuse any grammatical, word or spelling errors. Chief Complaint: 58-year-old male presents with right-sided chest pain. History of Present Illness: 58-year-old male presents with right-sided chest pain. Patient states that 3 days ago he had a thoracentesis performed. He was informed that he might express chest pain after the procedure. Patient states he was recently discharged from the hospital at that point when he did have the thoracentesis performed. Chart review shows that patient is discharged 2 days ago. Patient states that his right-sided chest pain is unbearable. States sharp stabbing in nature worse when he rolls over. Patient is concerned that he might have an infection because he's been having some constitutional symptoms. Patient denies any cough. He requested Toradol for his pain. The ROS documented in this emergency department record has been reviewed and confirmed by me. Those systems with pertinent positive or negative responses have been documented in the HPI. All other systems are other negative and/or noncontributory. PHYSICAL EXAM: General Impression: Alert and oriented x3, not in acute distress HEENT: Normocephalic atraumatic, extra-ocular movements intact, pupils equal and reactive to light bilaterally, mucous membranes moist. Cardiovascular: Heart regular rate and rhythm, S1&S2 audible, no murmurs, rubs or gallops Chest: diminished lung sounds to the right lung base Abdomen: Bowel sounds present, abdomen soft, non-tender, non-distended, no organomegaly Musculoskeletal: Pulses present and equal in all extremities, no peripheral edema Motor: no focal deficits noted Neurological: CN II-XII grossly intact, no focal motor or sensory deficits noted Skin: Intact with no visualized rashes Psych: Normal affect and mood ED course: 58-year-old male presents with a typical chest pain. 3 days ago patient had thoracentesis to the right lung. Vital signs upon arrival shows temperature 99.7, heart rate 104, rest of vital signs within acceptable limits. Return evaluation obtained. CBC, coag panel, metabolic panel is obtained. Patient's labs all appear to be baseline. Patient states he has history of kidney disease however has normal renal markers. Chest x-ray is stable. Patient is given Toradol for pain with slight improvement. He does have chronic right pleural effusion that is unchanged. Fluid from thoracentesis was reviewed. There is no cultures drawn from the fluid that's available in the EMR. he feels unfit to be discharge back to home. Patient be admitted for postthoracentesis chest pain. He'll be admitted to observation unit. Consult w as made for pulmonology. EKG interpretation: Ventricular rate 93, normal sinus rhythm, NC interval 170, QRS 122, QTc 437. No NC prolongation, no QTC prolongation, no ST or T-wave changes noted. EKG compared to August 1919 showing no changes. Overall, this EKG is unremarkable - Related Data Home Medications Medication Instructions Recorded Confirmed OLANZapine [ZyPREXA] 20 mg PO HS 03/18/19 09/15/19 Gabapentin [Neurontin] 600 mg PO DAILY 07/14/19 09/15/19 HYDROcodone/APAP 5-325MG [[place] 1 tab PO Q6H PRN 07/14/19 09/15/19 5-325] Rivaroxaban [Xarelto] 20 mg PO DAILY 07/14/19 09/15/19 DULoxetine HCL [Cymbalta] 40 mg PO DAILY 07/15/19 09/15/19 Diltiazem HCl 30 mg PO Q6H 07/15/19 09/15/19 busPIRone HCl [Buspar] 5 mg PO BID 07/15/19 09/15/19 Albuterol Inhaler [Ventolin Hfa 2 puff INHALATION RT-Q6H PRN 08/03/19 09/15/19 Inhaler] Aspirin EC [Ecotrin Low Dose] 81 mg PO DAILY 08/03/19 09/15/19 Atorvastatin [Lipitor] 10 mg PO HS 08/03/19 09/15/19 Ergocalciferol (Vitamin D2) 50,000 unit PO WE 08/03/19 09/15/19 [Vitamin D2] Hydrocortisone [Cortef] 10 mg PO BID 08/03/19 09/15/19 Lidocaine 5% Patch [Lidoderm 5% 1 patch TOPICAL DAILY 08/03/19 09/15/19 Patch] Melatonin 5 mg PO HS 08/03/19 09/15/19 Tiotropium 18 Mcg/Puff [Spiriva] 1 puff INHALATION RT-DAILY 08/03/19 09/15/19 Albuterol Nebulized [Ventolin 2.5 mg INHALATION RT-Q6H PRN 09/07/19 09/15/19 Nebulized] Tamsulosin HCl [Flomax] 0.4 mg PO DAILY 09/15/19 09/15/19 Previous Rx's Medication Instructions Recorded Potassium Chloride ER [K-Dur 20] 20 meq PO DAILY #30 tab 08/07/19 Furosemide [Lasix] 60 mg PO BID #60 tab 09/13/19 Allergies Allergy/AdvReac Type Severity Reaction Status Date / Time codeine Allergy Severe Swelling Verified 09/15/19 20:37 OF THROAT WITH COUGH SYRUP chlorpheniramine Allergy Unknown Verified 09/15/19 20:37 febuxostat [From Uloric] Allergy Unknown Verified 09/15/19 20:37 phenylephrine Allergy Unknown Verified 09/15/19 20:37 piperacillin sodium Allergy Unknown Verified 09/15/19 20:37 [From Zosyn] tazobactam sodium Allergy Unknown Verified 09/15/19 20:37 [From Zosyn] Review of Systems ROS Statement: Those systems with pertinent positive or pertinent negative responses have been documented in the HPI. ROS Other: All systems not noted in ROS Statement are negative. Past Medical History Past Medical History: Atrial Fibrillation, Asthma, Cancer, Heart Failure, COPD, CVA/TIA, Diabetes Mellitus, Deep Vein Thrombosis (DVT), GERD/Reflux, GI Bleed, Hyperlipidemia, Hypertension, Osteoarthritis (OA), Pneumonia, Pulmonary Embolus (PE), Renal Disease, Respiratory Disorder, Sleep Apnea/CPAP/BIPAP Additional Past Medical History / Comment(s): Pt recently admitted to [facility] on 08/05/19 with acute on chronic CHF/abnormal ECHO-see report/paroxysmal afib/bilateral pleural effusions with R sided thoracentesis. Other hx: Pt denies diabetes stating he has hypoglycemia/pt recently transfered to [facility] for endocrinology consultation-states he wasn't told anything new, states he has bilateral feet neuropathy, colitis, chronic diffuse abdominal pain, chronic generalized pain, fluid retention, bedbound, lower GI bleed, hiatal hernia, DVT in leg which traveled to his lung, DDD, scoliosis, ALEXIS without device, CKD stage III, pseudoseizures with past extensive work up thru [facility], basal cell skin cancer removed from face. History of Any Multi-Drug Resistant Organisms: MRSA Date of last positivie culture/infection: AUG 2018 MDRO Source:: sputum Past Surgical History: Appendectomy, Bariatric Surgery, Heart Catheterization, Hernia Repair, Joint Replacement, Orthopedic Surgery Additional Past Surgical History / Comment(s): Gastric sleeve in 2014, L inguinal hernia repair, R elbow surgery x2, total R hip arthroplasty, L knee arthroscopy/ACL surgery, R ankle ORIF, EGD, colonoscopy, basal cell skin cancer from face, surgery for varicele. Past Anesthesia/Blood Transfusion Reactions: Previous Problems w/ Anesthesia Additional Past Anesthesia/Blood Transfusion Reaction / Comment(s): STATES HE WAS TOLD HE WAS A DIFFICULT INTUBATION WITH GASTRIC SLEEVE SURGERY, Past Psychological History: Anxiety, Depression, Panic Disorder, Schizoaffective Disorder Smoking Status: Former smoker Past Alcohol Use History: None Reported Past Drug Use History: None Reported - Past Family History Father Family Medical History: Cancer Additional Family Medical History / Comment(s): LUNG CA Mother Family Medical History: Coronary Artery Disease (CAD) Additional Family Medical History / Comment(s): Mother of an infection. General Exam Limitations: no limitations Course Vital Signs 09/15/19 09/15/19 20:01 20:42 Temperature 99.7 F H Pulse Rate 104 H 100 Respiratory 20 20 Rate Blood Pressure 122/78 120/78 O2 Sat by Pulse 95 90 L Oximetry Medical Decision Making - Lab Data Result diagrams: 09/15/19 20:50 09/15/19 20:50 Lab Results 09/15/19 09/15/19 09/15/19 Range/Units 20:50 20:50 20:50 WBC 9.9 (3.8-10.6) k/uL RBC 4.55 (4.30-5.90) m/uL Hgb 12.6 L (13.0-17.5) gm/dL Hct 40.8 (39.0-53.0) % MCV 89.7 (80.0-100.0) fL MCH 27.7 (25.0-35.0) pg MCHC 30.8 L (31.0-37.0) g/dL RDW 15.1 (11.5-15.5) % Plt Count 272 (150-450) k/uL Neutrophils % 80 % Lymphocytes % 7 % Monocytes % 8 % Eosinophils % 2 % Basophils % 2 % Neutrophils # 7.9 H (1.3-7.7) k/uL Lymphocytes # 0.6 L (1.0-4.8) k/uL Monocytes # 0.8 (0-1.0) k/uL Eosinophils # 0.2 (0-0.7) k/uL Basophils # 0.2 (0-0.2) k/uL Hypochromasia Slight PT 10.9 (9.0-12.0) sec INR 1.0 (<1.2) APTT 35.1 H (22.0-30.0) sec Sodium 139 (137-145) mmol/L Potassium 3.8 (3.5-5.1) mmol/L Chloride 91 L (98-107) mmol/L Carbon Dioxide 37 H (22-30) mmol/L Anion Gap 11 mmol/L BUN 24 H (9-20) mg/dL Creatinine 0.83 (0.66-1.25) mg/dL Est GFR (CKD-EPI)AfAm >90 (>60 ml/min/1.73 sqM) Est GFR (CKD-EPI)NonAf >90 (>60 ml/min/1.73 sqM) Glucose 130 H (74-99) mg/dL Calcium 10.0 (8.4-10.2) mg/dL Disposition Clinical Impression: Chest pain Disposition: ADMITTED IP TO THIS [facility] Referrals: Hugo Bailey MD [Primary Care Provider] - 1-2 days Decision Time: 22:36
[2019-09-15] MEDS ORDERED: NALOXONE 0.4 MG/ML 1 ML VIAL IV PRN (22:31)
[2019-09-15] MEDS ORDERED: ALBUTEROL INHALER 60 PUFF/8 GM INHALER INHALATION PRN (22:37)
[2019-09-15] MEDS ORDERED: ALBUTEROL NEBULIZED 2.5 MG/3 ML INHALATION PRN (22:37)
[2019-09-15] MEDS ORDERED: SODIUM CHLORIDE 0.9% 1,000 ML IV SCH (22:45)
[2019-09-15] MEDS ORDERED: ATORVASTATIN 10 MG TAB PO SCH (22:45)
[2019-09-16 00:20] VITALS: TEMP 98.1; BMI 47.0
[2019-09-16] MEDS ORDERED: HYDROcodone/APAP 5-325MG 1 EACH TAB PO PRN (00:24)
[2019-09-16] MEDS ORDERED: MELATONIN 5 MG TABLET PO SCH (00:30)
[2019-09-16] MEDS ORDERED: OLANZapine 10 MG TAB PO SCH (00:30)
[2019-09-16] MEDS: busPIRone HCl 5 MG TAB PO SCH ×2 (00:46→08:51)
[2019-09-16] MEDS: ASPIRIN 81 MG PO SCH ×2 (00:46→08:50)
[2019-09-16] MEDS: DILTIAZEM ORAL 30 MG TAB PO SCH ×4 (00:47→17:15)
[2019-09-16] MEDS: FUROSEMIDE 40 MG TAB PO SCH ×2 (00:47→08:51)
[2019-09-16] MEDS: KETOROLAC 30 MG/ML 1 ML VIAL IVP SCH ×4 (00:48→17:18)
[2019-09-16] MEDS: HYDROCORTISONE 10 MG TAB PO SCH ×2 (00:51→08:51)
[2019-09-16 02:36] LABS: Glucose,Whole Blood 108 mg/dL (75-99)
[2019-09-16 08:28] VITALS: RESP 18
[2019-09-16] MEDS: IPRATROPIUM 0.5 MG/2.5 ML NEBU INHALATION SCH ×3 (08:43→15:48)
[2019-09-16] MEDS ORDERED: RIVAROXABAN 20 MG TAB PO SCH (09:00)
[2019-09-16] MEDS ORDERED: LIDOCAINE 5% PATCH TOPICAL SCH (09:00)
[2019-09-16] MEDS ORDERED: TAMSULOSIN 0.4 MG CAP.ER.24H PO SCH (09:00)
[2019-09-16] MEDS ORDERED: GABAPENTIN 300 MG CAP PO SCH (09:00)
[2019-09-16] MEDS ORDERED: POTASSIUM CHLORIDE ER 20 MEQ TAB.ER PO SCH (09:00)
[2019-09-16] MEDS ORDERED: DULoxetine HCL 20 MG CAPSULE.DR PO SCH (09:00)
--- NOTE | 2019-09-16 12:02 | P.CNPUL ---
History of Present Illness Consult date: 09/16/19 Reason for consult: dyspnea, chest pain History of present illness: History of Present Illness: 58-year-old male presents with right-sided chest pain. Patient had a thoracentesis done approximately 3 days ago during which a total of 9 50 mL of pleural fluid was aspirated and the fluid was an exudate based on the chemistry. Fluid cytology came back negative for malignancy. He did well following the procedure. He did have some limited discomfort across his right chest which I thought this was related to reexpansion of the right lung. The chest x-ray did not show any postoperative complications. No pneumothorax. The patient was discharged home.. He was informed that he might express chest pain after the procedure. Patient states he was recently discharged from the hospital at that point when he did have the thoracentesis performed. Chart review shows that patient is discharged 2 days ago. Patient states that his right-sided chest pain is unbearable. States sharp stabbing in nature worse when he rolls over. Patient is concerned that he might have an infection because he's been having some constitutional symptoms. Patient denies any cough. He requested Toradol for his pain. He is on 2 L of oxygen by nasal cannula. Overall condition is the same. No fever. No chills. No leukocytosis. The chest x-ray still showing some residual right-sided pleural effusion. No pneumothorax. Review of Systems Constitutional: Denies chills, doses fever at home with a temperature max of 99.7 Eyes: denies blurred vision, denies pain Ears, nose, mouth and throat: Denies headache, Denies sore throat Cardiovascular: Reports chest pain, Denies shortness of breath, the patient reported pain across his right and left chest and the patient was also having some ongoing tachycardia. Respiratory: Reports dyspnea, Denies cough GASTROINTESTINAL: Denies abdominal pain. Denies diarrhea. Denies constipation. Denies nausea. Denies vomiting. MUSCULOSKELETAL: Denies myalgias. In general, the patient has significant motor weakness in lower extremities. The patient has undergone a previous hip surgery in 2010. He also has degenerative arthritis and scoliosis of the spine and sridevi aiken with his morbid obesity has become nonambulatory. His speech is within normal limits. INTEGUMENTARY: Denies pruitis. Denies rash. NEUROLOGIC: Denies numbness. Denies tingling. The patient is nonambulatory. He has chronic edema lower extremities bilaterally. PSYCHIATRIC: Denies anxiety. Denies depression. ENDOCRINE: Denies fatigue. Denies weight change. Denies polydipsia. Denies polyurina. GENITOURINARY: Denies burning, hematuria or urgency with micturation. HEMATOLOGIC: Denies history of anemia. Denies bleeding. Past Medical History Past Medical History: Atrial Fibrillation, Asthma, Cancer, Heart Failure, COPD, CVA/TIA, Diabetes Mellitus, Deep Vein Thrombosis (DVT), GERD/Reflux, GI Bleed, Hyperlipidemia, Hypertension, Osteoarthritis (OA), Pneumonia, Pulmonary Embolus (PE), Renal Disease, Respiratory Disorder, Sleep Apnea/CPAP/BIPAP Additional Past Medical History / Comment(s): Pt recently admitted to [facility] on 08/05/19 with acute on chronic CHF/abnormal ECHO-see report/paroxysmal afib/bilateral pleural effusions with R sided thoracentesis. Other hx: Pt denies diabetes stating he has hypoglycemia/pt recently transfered to [facility] for endocrinology consultation-states he wasn't told anything new, states he has bi lateral feet neuropathy, colitis, chronic diffuse abdominal pain, chronic generalized pain, fluid retention, bedbound, lower GI bleed, hiatal hernia, DVT in leg which traveled to his lung, DDD, scoliosis, ALEXIS without device, CKD stage III, pseudoseizures with past extensive work up thru [facility], basal cell skin cancer removed from face. History of Any Multi-Drug Resistant Organisms: MRSA Date of last positivie culture/infection: AUG 2018 MDRO Source:: sputum Past Surgical History: Appendectomy, Bariatric Surgery, Heart Catheterization, Hernia Repair, Joint Replacement, Orthopedic Surgery Additional Past Surgical History / Comment(s): Gastric sleeve in 2014, L inguinal hernia repair, R elbow surgery x2, total R hip arthroplasty, L knee arthroscopy/ACL surgery, R ankle ORIF, EGD, colonoscopy, basal cell skin cancer from face, surgery for varicele. Past Anesthesia/Blood Transfusion Reactions: Previous Problems w/ Anesthesia Additional Past Anesthesia/Blood Transfusion Reaction / Comment(s): STATES HE WAS TOLD HE WAS A DIFFICULT INTUBATION WITH GASTRIC SLEEVE SURGERY, Past Psychological History: Anxiety, Depression, Panic Disorder, Schizoaffective Disorder Additional Psychological History / Comment(s): Pt resides with his son. states his home care services just stopped 09/06/19 He states he has been bedbound past few months. Pt states he gets paranoid at times. Smoking Status: Former smoker Past Alcohol Use History: None Reported Additional Past Alcohol Use History / Comment(s): STARTED SMOKING AT AGE 15 QUIT SMOKING 1998, smoked 4 cigerettes- 1PPD FORMER ETOH ABUSE. Pt states QUIT 2012 Past Drug Use History: None Reported Additional Drug Use History / Comment(s): PAST HX OF MARIJUANA USE, DENIES USE IN YEARS. - Past Family History Father Family Medical History: Cancer Additional Family Medical History / Comment(s): LUNG CA Mother Family Medical History: Coronary Artery Disease (CAD) Additional Family Medical History / Comment(s): Mother of an infection. Medications and Allergies Home Medications Medication Instructions Recorded Confirmed Type OLANZapine [ZyPREXA] 20 mg PO HS 03/18/19 09/15/19 History Gabapentin [Neurontin] 600 mg PO DAILY 07/14/19 09/15/19 History HYDROcodone/APAP 5-325MG [[place] 1 tab PO Q6H PRN 07/14/19 09/15/19 History 5-325] Rivaroxaban [Xarelto] 20 mg PO DAILY 07/14/19 09/15/19 History DULoxetine HCL [Cymbalta] 40 mg PO DAILY 07/15/19 09/15/19 History Diltiazem HCl 30 mg PO Q6H 07/15/19 09/15/19 History busPIRone HCl [Buspar] 5 mg PO BID 07/15/19 09/15/19 History Albuterol Inhaler [Ventolin Hfa 2 puff INHALATION RT-Q6H PRN 08/03/19 09/15/19 History Inhaler] Aspirin EC [Ecotrin Low Dose] 81 mg PO DAILY 08/03/19 09/15/19 History Atorvastatin [Lipitor] 10 mg PO HS 08/03/19 09/15/19 History Ergocalciferol (Vitamin D2) 50,000 unit PO WE 08/03/19 09/15/19 History [Vitamin D2] Hydrocortisone [Cortef] 10 mg PO BID 08/03/19 09/15/19 History Lidocaine 5% Patch [Lidoderm 5% 1 patch TOPICAL DAILY 08/03/19 09/15/19 History Patch] Melatonin 5 mg PO HS 08/03/19 09/15/19 History Tiotropium 18 Mcg/Puff [Spiriva] 1 puff INHALATION RT-DAILY 08/03/19 09/15/19 History Potassium Chloride ER [K-Dur 20] 20 meq PO DAILY #30 tab 08/07/19 09/15/19 Rx Albuterol Nebulized [Ventolin 2.5 mg INHALATION RT-Q6H PRN 09/07/19 09/15/19 History Nebulized] Furosemide [Lasix] 60 mg PO BID #60 tab 09/13/19 09/15/19 Rx Tamsulosin HCl [Flomax] 0.4 mg PO DAILY 09/15/19 09/15/19 History Allergies Allergy/AdvReac Type Severity Reaction Status Date / Time codeine Allergy Severe Swelling Verified 09/15/19 20:37 OF THROAT WITH COUGH SYRUP chlorpheniramine Allergy Unknown Verified 09/15/19 20:37 febuxostat [From Uloric] Allergy Unknown Verified 09/15/19 20:37 phenylephrine Allergy Unknown Verified 09/15/19 20:37 piperacillin sodium Allergy Unknown Verified 09/15/19 20:37 [From Zosyn] tazobactam sodium Allergy Unknown Verified 09/15/19 20:37 [From Zosyn] Physical Exam Vitals: Vital Signs Temp Pulse Pulse Resp BP BP Pulse Ox 09/16/19 08:55 95 09/16/19 08:44 95 95 09/16/19 08:00 98.1 F 89 18 113/63 95 09/16/19 04:00 98.1 F 81 20 103/60 93 L 09/16/19 00:00 83 20 09/15/19 23:37 98.1 F 83 18 122/70 95 09/15/19 23:05 98.9 F 87 18 122/66 98 09/15/19 20:42 100 20 120/78 90 L 09/15/19 20:01 99.7 F H 104 H 20 122/78 95 Intake and Output 09/15/19 09/16/19 09/16/19 22:59 06:59 14:59 Intake Total 222 Balance 222 Intake: Oral 222 Other: Voiding Method Urinal Urinal Weight 180.076 kg 180.076 kg GENERAL: This is a 58-year-old male in no apparent distress at the time of my examination. Morbidly obese. The patient has a BMI 52.2 Head exam was generally normal. There was no scleral icterus or corneal arcus. Mucous membranes were moist. Neck was supple and without jugular venous distension, thyromegaly, or carotid bruits. Carotids were easily palpable bilaterally. There was no adenopathy. LUNGS: Initial breath sounds bilaterally especially in the right lung along with dullness to percussion. Breath sounds are quite diminished in the right lung base. HEART: Regular rate and rhythm without murmurs, rubs or gallops. S1 and S2 heard. ABDOMEN: Soft, nontender. Bowel sounds are heard. No organomegaly noted. EXTREMITIES: Bilateral lower extremity circumferential nonpitting edema. No calf tenderness noted. VASCULAR: Radial and dorsalis pedis pulses palpated, no evidence of clubbing. NEUROLOGIC: Patient is awake, alert and oriented x3. Motor weakness is obvious in lower extremities bilaterally. Skeletal examination the patient has scars of previous surgery and chronic contractures in lower extremities bilaterally. Results - Laboratory Findings CBC and BMP: 09/15/19 20:50 09/15/19 20:50 PT/INR, D-dimer PT 10.9 sec (9.0-12.0) 09/15/19 20:50 INR 1.0 (<1.2) 09/15/19 20:50 Abnormal lab findings: Abnormal Labs 09/15/19 09/15/19 09/15/19 20:50 20:50 20:50 Hgb 12.6 L MCHC 30.8 L Neutrophils # 7.9 H Lymphocytes # 0.6 L APTT 35.1 H Chloride 91 L Carbon Dioxide 37 H BUN 24 H Glucose 130 H POC Glucose (mg/dL) 09/16/19 02:34 Hgb MCHC Neutrophils # Lymphocytes # APTT Chloride Carbon Dioxide BUN Glucose POC Glucose (mg/dL) 108 H - Diagnostic Findings Chest x-ray: image reviewed Assessment and Plan Plan: #1. Shortness of breath, and chest discomfort , moderate amount of pleural effusion on the most recent chest x-ray. The exact nature of this pleural fluid and the cause of the pain is not clear to me at this point in time. Noted the patient underwent 2 thoracentesis. The first thoracentesis was a chain state and second one came back as an exudate. The cytology on both of these were negative. For that reason, I think it's reasonable to repeat a CAT scan of the chest to reevaluate the whole process. He tells that he was having fever. We haven't documented any fever. No significant leukocytosis. #2. Previous hospitalization for right-sided pleural effusion with previous thoracentesis, #3. Morbid obesity #4. Obstructive sleep apnea #5. History of DVT and pulmonary embolism on Xarelto #6. Paroxysmal atrial fibrillation #7. Diabetes type II #8. COPD #9. Hyperlipidemia #10. Osteoarthritis/scoliosis of the spine, chronic difficulties with mobility related to morbid obesity and multiple orthopedic surgeries #11. Previous history of C. diff colitis #12. Gait dysfunction, he is bedridden on a regular basis #13. Generalized weakness #14. Chronic pain #15. History of depression/bipolar disorder Plan I will check a pro-Calcitonin level looking for any possibility of infection. Obtain a CT angiogram of the chest. We'll reevaluate the patient once the CT is completed. Monitor fever pattern. Monitor pain. We'll follow.
--- NOTE | 2019-09-16 13:38 | CT ---
EXAMINATION TYPE: CT angio chest DATE OF EXAM: 09/16/2019 1:11 PM COMPARISON: Previous study dated 09/07/2019 HISTORY: Chest pain CT DLP: 1264.6 mGycm Automated exposure control for dose reduction was used. CONTRAST: CTA scan of the thorax is performed with IV Contrast, patient injected with 100 mL of Isovue 370, pul monary embolism protocol. . FINDINGS: There is a large right-sided pleural effusion as described on the previous examination. The re is moderately severe atelectasis of the right lung. There is some dependent atelectasis of the lef t lung. There is bilateral gynecomastia. There is no evidence of pulmonary embolus. There is mild aneurysmal dilatation of the aortic root which measures 4 cm. The pulmonary arteries ar e prominent and I could not exclude some pulmonary artery hypertension. The heart is not enlarged. There appears to been previous gastric sleeve procedure. Visualized portions of the upper abdomen are otherwise unremarkable. There is hypertrophic spondylosis within the spine. IMPRESSION: 1. THIS EXAMINATION IS NEGATIVE FOR PULMONARY EMBOLUS. 2. STABLE, LARGE RIGHT PLEURAL EFFUSION WITH ASSOCIATED ATELECTASIS OF THE RIGHT LUNG. 3. BILATERAL GYNECOMASTIA. 4. ANEURYSMAL DILATATION OF THE AORTIC ROOT MEASURING 4 CM. 5. POSTOPERATIVE CHANGE.
--- NOTE | 2019-09-16 15:27 | P.HPIM ---
History of Present Illness H&P Date: 09/16/19 Chief Complaint: Right chest sharp pain History of presenting complaint: This is a 58-year-old patient who follows with visiting physician Dr. Antelmo Steele. Patient has a rather extensive medical history. Patient presented increasing shortness of breath . Patient has not really walked since January of this year. Has a hospital bed at home. Chronic stable medical conditions include Diastolic CHF, paroxysmal atrial fibrillation, pseudoseizures with extensive work up including continuous EEG monitoring done at [facility] recently, morbid obesity, sleeve gastrectomy, COPD, diabetes mellitus,, bipolar disorder. Patient recently positive for C. diff.That failed vancomycin taper and was treated with Dificid. Patient also has bilateral pleural effusion on the large one on the right. In the beginning of July, thoracentesis was done. Subsequent attempted thoracentesis more recently. Patient was then admitted to the hospital on September 08 and discharged on September 13. Treated for CHF exacerbation treated with IV Lasix. Thoracentesis on the right side was again carried out and Dr. Hendrickson and the cytology came back to be negative. The fluid was a exudate. Patient presents with a sharp pain on the right side. After going home. Decided to present to ER. There is no obvious fever or chills. White count was normal. Patient is eating well. No change in bowel pattern. No nausea vomiting. Review of systems: GEN.: Tired EYES: None HEENT: None NECK: None RESPIRATORY: Short of breath CARDIOVASCULAR: As above GASTROINTESTINAL: None GENITOURINARY: None MUSCULOSKELETAL: None LYMPHATICS: None HEMATOLOGICAL: None PSYCHIATRY: Slightly anxious NEUROLOGICAL: Weakness in the legs Past medical history: To include Diastolic CHF EF 55-60%, paroxysmal atrial fibrillation, pseudoseizures with extensive work up including congestive EEG monitoring done at [facility] recently, morbid obesity, sleeve gastrectomy, COPD, diabetes mellitus, bipolar disorder. Recent C. diff -treated with Dificid. Right chronic pleural effusion with thoracentesis 3. Cytology negative for malignancy and picture exudate Social history: Currently at home with his son. Has a hospital bed apparently has a Marah lift. Smoked from age of 15 stopped in 1998. Smoked a few cigarettes a day. Prior alcohol abuse. Stopped in 2012. Did do IV drug in the past. Family history: Lung cancer Physical examination: VITAL SIGNS: 98.1, 89, 18, 113 W. 63, 95% on 1 L GENERAL: BMI 47.1, propped up in bed comfortable eating his meal EYES: Pupils equal. Conjunctiva normal. HEENT: External appearance of nose and ears normal, oral cavity grossly normal. NECK: Neck is short and thick, JVD unable to assess, mass not palpable. HEART: Heart sounds are distant, edema minimal LUNGS: Respiratory rate normal diminished breath sounds. ABDOMEN: Soft, nontender, liver spleen not palpable, no masses palpable. PSYCH: AO 3, motor affect normal NEUROLOGICAL: Cranial nerves grossly intact; no facial asymmetry, decreased power in both lower extremity. LYMPHATICS: No lymph nodes palpable in the axilla and neck INVESTIGATIONS, reviewed in the clinical context: White count 9.9 and hemoglobin 12.6 potassium 3.8. 24 creatinine 0.83 Right pleural effusion-by, she compatible with exudate and negative for cytology Assessment: -Right-sided pleuritic chest pain, could be musculoskeletal -Chronic congestive heart failure from diastolic dysfunction EF 55-60% -Chronic right-sided pleural effusion with thoracentesis 3. Likely a transudate but sometimes with chronically can become an exudate. Negative for cytology likely from underlying CHF -Hypertensive heart disease -Paroxysmal atrial fibrillation currently in sinus rhythm, chronically on Xarel to -psuedo-seizures with extensive workup at [facility] in the past -Morbid obesity BMI 45.4 -Diabetes mellitus type 2 -Bipolar disorder -Medical debility Plan: Home medications resumed. No clinical evidence of infection. No fever no white count. This has a good appetite. Appears comfortable. Dr. Hendrickson from pulmonary was consulted. He did order a computed tomography scan of the chest. Discussed with him. If the computed tomography scan is negative patient can be discharged home. Past Medical History Past Medical History: Atrial Fibrillation, Asthma, Cancer, Heart Failure, COPD, CVA/TIA, Diabetes Mellitus, Deep Vein Thrombosis (DVT), GERD/Reflux, GI Bleed, Hyperlipidemia, Hypertension, Osteoarthritis (OA), Pneumonia, Pulmonary Embolus (PE), Renal Disease, Respiratory Disorder, Sleep Apnea/CPAP/BIPAP Additional Past Medical History / Comment(s): Pt recently admitted to [facility] on 08/05/19 with acute on chronic CHF/abnormal ECHO-see report/paroxysmal afib/bilateral pleural effusions with R sided thoracentesis. Other hx: Pt denies diabetes stating he has hypoglycemia/pt recently transfered to [facility] for endocrinology consultation-states he wasn't told anything new, states he has bilateral feet neuropathy, colitis, chronic diffuse abdominal pain, chronic generalized pain, fluid retention, bedbound, lower GI bleed, hiatal hernia, DVT in leg which traveled to his lung, DDD, scoliosis, ALEXIS without device, CKD stage III, pseudoseizures with past extensive work up thru [facility], basal cell skin cancer removed from face. History of Any Multi-Drug Resistant Organisms: MRSA Date of last positivie culture/infection: AUG 2018 MDRO Source:: sputum Past Surgical History: Appendectomy, Bariatric Surgery, Heart Catheterization, Hernia Repair, Joint Replacement, Orthopedic Surgery Additional Past Surgical History / Comment(s): Gastric sleeve in 2013, L inguinal hernia repair, R elbow surgery x2, total R hip arthroplasty, L knee arthroscopy/ACL surgery, R ankle ORIF, EGD, colonoscopy, basal cell skin cancer from face, surgery for varicele. Past Anesthesia/Blood Transfusion Reactions: Previous Problems w/ Anesthesia Additional Past Anesthesia/Blood Transfusion Reaction / Comment(s): STATES HE WAS TOLD HE WAS A DIFFICULT INTUBATION WITH GASTRIC SLEEVE SURGERY, Past Psychological History: Anxiety, Depression, Panic Disorder, Schizoaffective Disorder Additional Psychological History / Comment(s): Pt resides with his son. states his home care services just stopped 09/06/19 He states he has been bedbound past few months. Pt states he gets paranoid at times. Smoking Status: Former smoker Past Alcohol Use History: None Reported Additional Past Alcohol Use History / Comment(s): STARTED SMOKING AT AGE 15 QUIT SMOKING 1998, smoked 4 cigerettes- 1PPD FORMER ETOH ABUSE. Pt states QUIT 2012 Past Drug Use History: None Reported Additional Drug Use History / Comment(s): PAST HX OF MARIJUANA USE, DENIES USE IN YEARS. - Past Family History Father Family Medical History: Cancer Additional Family Medical History / Comment(s): LUNG CA Mother Family Medical History: Coronary Artery Disease (CAD) Additional Family Medical History / Comment(s): Mother of an infection. Medications and Allergies Home Medications Medication Instructions Recorded Confirmed Type OLANZapine [ZyPREXA] 20 mg PO HS 03/18/19 09/15/19 History Gabapentin [Neurontin] 600 mg PO DAILY 07/14/19 09/15/19 History HYDROcodone/APAP 5-325MG [[place] 1 tab PO Q6H PRN 07/14/19 09/15/19 History 5-325] Rivaroxaban [Xarelto] 20 mg PO DAILY 07/14/19 09/15/19 History DULoxetine HCL [Cymbalta] 40 mg PO DAILY 07/15/19 09/15/19 History Diltiazem HCl 30 mg PO Q6H 07/15/19 09/15/19 History busPIRone HCl [Buspar] 5 mg PO BID 07/15/19 09/15/19 History Albuterol Inhaler [Ventolin Hfa 2 puff INHALATION RT-Q6H PRN 08/03/19 09/15/19 History Inhaler] Aspirin EC [Ecotrin Low Dose] 81 mg PO DAILY 08/03/19 09/15/19 History Atorvastatin [Lipitor] 10 mg PO HS 08/03/19 09/15/19 History Ergocalciferol (Vitamin D2) 50,000 unit PO WE 08/03/19 09/15/19 History [Vitamin D2] Hydrocortisone [Cortef] 10 mg PO BID 08/03/19 09/15/19 History Lidocaine 5% Patch [Lidoderm 5% 1 patch TOPICAL DAILY 08/03/19 09/15/19 History Patch] Melatonin 5 mg PO HS 08/03/19 09/15/19 History Tiotropium 18 Mcg/Puff [Spiriva] 1 puff INHALATION RT-DAILY 08/03/19 09/15/19 History Potassium Chloride ER [K-Dur 20] 20 meq PO DAILY #30 tab 08/07/19 09/15/19 Rx Albuterol Nebulized [Ventolin 2.5 mg INHALATION RT-Q6H PRN 09/07/19 09/15/19 History Nebulized] Furosemide [Lasix] 60 mg PO BID #60 tab 09/13/19 09/15/19 Rx Tamsulosin HCl [Flomax] 0.4 mg PO DAILY 09/15/19 09/15/19 History Allergies Allergy/AdvReac Type Severity Reaction Status Date / Time codeine Allergy Severe Swelling Verified 09/15/19 20:37 OF THROAT WITH COUGH SYRUP chlorpheniramine Allergy Unknown Verified 09/15/19 20:37 febuxostat [From Uloric] Allergy Unknown Verified 09/15/19 20:37 phenylephrine Allergy Unknown Verified 09/15/19 20:37 piperacillin sodium Allergy Unknown Verified 09/15/19 20:37 [From Zosyn] tazobactam sodium Allergy Unknown Verified 09/15/19 20:37 [From Zosyn] Physical Exam Vitals: Vital Signs Temp Pulse Pulse Resp BP BP Pulse Ox 09/16/19 08:55 95 09/16/19 08:44 95 95 09/16/19 08:00 98.1 F 89 18 113/63 95 09/16/19 04:00 98.1 F 81 20 103/60 93 L 09/16/19 00:00 83 20 09/15/19 23:37 98.1 F 83 18 122/70 95 09/15/19 23:05 98.9 F 87 18 122/66 98 09/15/19 20:42 100 20 120/78 90 L 09/15/19 20:01 99.7 F H 104 H 20 122/78 95 Intake and Output 09/15/19 09/16/19 09/16/19 22:59 06:59 14:59 Intake Total 222 Balance 222 Intake: Oral 222 Other: Voiding Method Urinal Urinal Weight 180.076 kg 180.076 kg Results CBC & Chem 7: 09/15/19 20:50 09/15/19 20:50 Labs: Abnormal Lab Results - Last 24 Hours (Table) 09/15/19 09/15/19 09/15/19 Range/Units 20:50 20:50 20:50 Hgb 12.6 L (13.0-17.5) gm/dL MCHC 30.8 L (31.0-37.0) g/dL Neutrophils # 7.9 H (1.3-7.7) k/uL Lymphocytes # 0.6 L (1.0-4.8) k/uL APTT 35.1 H (22.0-30.0) sec Chloride 91 L (98-107) mmol/L Carbon Dioxide 37 H (22-30) mmol/L BUN 24 H (9-20) mg/dL Glucose 130 H (74-99) mg/dL POC Glucose (mg/dL) (75-99) mg/dL 09/16/19 Range/Units 02:34 Hgb (13.0-17.5) gm/dL MCHC (31.0-37.0) g/dL Neutrophils # (1.3-7.7) k/uL Lymphocytes # (1.0-4.8) k/uL APTT (22.0-30.0) sec Chloride (98-107) mmol/L Carbon Dioxide (22-30) mmol/L BUN (9-20) mg/dL Glucose (74-99) mg/dL POC Glucose (mg/dL) 108 H (75-99) mg/dL Thrombosis Risk Factor Assmnt - Choose All That Apply Any of the Below Risk Factors Present?: Yes Each Factor Represents 1 point: Abnormal pulmonary function (COPD), Age 41-60 years, Heart failure (<1month), Obesity (BMI >25) Each Risk Factor Represents 3 Points: History of DVT/PE Thrombosis Risk Factor Assessment Total Risk Factor Score: 7 Thrombosis Risk Factor Assessment Level: High Risk
[2019-09-16 15:51] VITALS: PULSE 86
[2019-09-16 17:10] VITALS: BP 120/57
--- NOTE | 2019-09-18 00:26 | P.DS ---
Providers Date of admission: 09/15/19 22:33 Expected date of discharge: 09/16/19 Attending physician: Rgoe Bashir Consults: 09/15/19 22:33 Consult Physician Routine Consulting Provider: Ynes Hendrickson Consult Reason/Comments: post thoracentesis chest pain Do you want consulting provider notified?: Yes Primary care physician: [facility] Hospital Course: Chief Complaint: Right chest sharp pain Hospital course: This is a 58-year-old patient who follows with visiting physician Dr. Antelmo Steele. Patient has a rather extensive medical history. Patient presented increasing shortness of breath . Patient has not really walked since January of this year. Has a hospital bed at home. Chronic stable medical conditions include Diastolic CHF, paroxysmal atrial fibrillation, pseudoseizures with extensive work up including continuous EEG monitoring done at [facility] recently, morbid obesity, sleeve gastrectomy, COPD, diabetes mellitus,, bipolar disorder. Patient recently positive for C. diff.That failed vancomycin taper and was treated with Dificid. Patient also has bilateral pleural effusion on the large one on the right. In the beginning of July, thoracentesis was done. Subsequent attempted thoracentesis more recently. Patient was then admitted to the hospital on September 08 and discharged on September 13. Treated for CHF exacerbation treated with IV Lasix. Thoracentesis on the right side was again carried out and Dr. Hendrickson and the cytology came back to be negative. The fluid was a exudate. Patient presents with a sharp pain on the right side. After going home. Decided to present to ER. There is no obvious fever or chills. White count was normal. Patient is eating well. No change in bowel pattern. No nausea vomiting. Chest CT is negative for PE. Discussed with Dr. Hendrickson. Patient was doing relatively well. It is always is. Decided to discharge the patient. Patient pleural fluid is chronic hence it is felt to be exudate. For that reason. Negative for malignant cytology Consultation: Dr. Hendrickson from pulmonary Physical examination: VITAL SIGNS: 98.1, symptomatic, 18, 120/62, 98% on 2 L GENERAL: BMI 47.1, propped up, comfortable EYES: Pupils equal. Conjunctiva normal. HEENT: External appearance of nose and ears normal, oral cavity grossly normal. NECK: Neck is short and thick, JVD unable to assess, mass not palpable. HEART: Heart sounds are distant, edema minimal LUNGS: Respiratory rate normal diminished breath sounds. ABDOMEN: Soft, nontender, liver spleen not palpable, no masses palpable. PSYCH: AO 3, motor affect normal NEUROLOGICAL: Decreased power in the lower extremity INVESTIGATIONS, reviewed in the clinical context: White count 9.9 and hemoglobin 12.6 potassium 3.8. 24 creatinine 0.83 Right pleural effusion-by, she compatible with exudate and negative for cytology Chest CTA-negative for PE Discharge diagnosis: -Right-sided pleuritic chest pain, could be musculoskeletal -Chronic congestive heart failure from diastolic dysfunction EF 55-60% -Chronic right-sided pleural effusion with thoracentesis 3. Likely a transudate but sometimes with chronically can become an exudate. Negative for cytology likely from underlying CHF -Hypertensive heart disease -Paroxysmal atrial fibrillation currently in sinus rhythm, chronically on Xarelto -psuedo-seizures with extensive workup at [facility] in the past -Morbid obesity BMI 45.4 -Diabetes mellitus type 2 -Bipolar disorder -Medical debility Disposition: Home. Patient Condition at Discharge: Stable Plan - Discharge Summary New Discharge Prescriptions: Continue OLANZapine [ZyPREXA] 20 mg PO HS Rivaroxaban [Xarelto] 20 mg PO DAILY HYDROcodone/APAP 5-325MG [[place] 5-325] 1 tab PO Q6H PRN PRN Reason: Pain Gabapentin [Neurontin] 600 mg PO DAILY busPIRone HCl [Buspar] 5 mg PO BID Diltiazem HCl 30 mg PO Q6H DULoxetine HCL [Cymbalta] 40 mg PO DAILY Atorvastatin [Lipitor] 10 mg PO HS Ergocalciferol (Vitamin D2) [Vitamin D2] 50,000 unit PO WE Lidocaine 5% Patch [Lidoderm 5% Patch] 1 patch TOPICAL DAILY Hydrocortisone [Cortef] 10 mg PO BID Albuterol Inhaler [Ventolin Hfa Inhaler] 2 puff INHALATION RT-Q6H PRN PRN Reason: Shortness Of Breath Tiotropium 18 Mcg/Puff [Spiriva] 1 puff INHALATION RT-DAILY Melatonin 5 mg PO HS Aspirin EC [Ecotrin Low Dose] 81 mg PO DAILY Potassium Chloride ER [K-Dur 20] 20 meq PO DAILY #30 tab Albuterol Nebulized [Ventolin Nebulized] 2.5 mg INHALATION RT-Q6H PRN PRN Reason: Shortness Of Breath Furosemide [Lasix] 60 mg PO BID #60 tab Tamsulosin HCl [Flomax] 0.4 mg PO DAILY Discharge Medication List OLANZapine [ZyPREXA] 20 mg PO HS 03/18/19 [History] Gabapentin [Neurontin] 600 mg PO DAILY 07/14/19 [History] HYDROcodone/APAP 5-325MG [[place]card 5-325] 1 tab PO Q6H PRN 07/14/19 [History] Rivaroxaban [Xarelto] 20 mg PO DAILY 07/14/19 [History] DULoxetine HCL [Cymbalta] 40 mg PO DAILY 07/15/19 [History] Diltiazem HCl 30 mg PO Q6H 07/15/19 [History] busPIRone HCl [Buspar] 5 mg PO BID 07/15/19 [History] Albuterol Inhaler [Ventolin Hfa Inhaler] 2 puff INHALATION RT-Q6H PRN 08/03/19 [History] Aspirin EC [Ecotrin Low Dose] 81 mg PO DAILY 08/03/19 [History] Atorvastatin [Lipitor] 10 mg PO HS 08/03/19 [History] Ergocalciferol (Vitamin D2) [Vitamin D2] 50,000 unit PO WE 08/03/19 [History] Hydrocortisone [Cortef] 10 mg PO BID 08/03/19 [History] Lidocaine 5% Patch [Lidoderm 5% Patch] 1 patch TOPICAL DAILY 08/03/19 [History] Melatonin 5 mg PO HS 08/03/19 [History] Tiotropium 18 Mcg/Puff [Spiriva] 1 puff INHALATION RT-DAILY 08/03/19 [History] Potassium Chloride ER [K-Dur 20] 20 meq PO DAILY #30 tab 08/07/19 [Rx] Albuterol Nebulized [Ventolin Nebulized] 2.5 mg INHALATION RT-Q6H PRN 09/07/19 [History] Furosemide [Lasix] 60 mg PO BID #60 tab 09/13/19 [Rx] Tamsulosin HCl [Flomax] 0.4 mg PO DAILY 09/15/19 [History] Follow up Appointment(s)/Referral(s): Hugo Bailey MD [Primary Care Provider] - 1-2 days (Please call on Wednesday for appointments, offices closed today.) Ynes Hendrickson MD [STAFF PHYSICIAN] - 1 Week (Please call on Wednesday, offices closed today.) Patient Instructions/Handouts: Pleural Effusion (DC), Thoracentesis (DC) Activity/Diet/Wound Care/Special Instructions: Home health care through [facility] (already in service) activity as tolerated diet as tolerated Discharge Disposition: HOME SELF-CARE
== END 2019-09-16 18:21 | disposition home or self-care (01) ==
LOC: EC 20:00 → 3SCARD 22:33
PROVIDERS: ADMIT Hospitalist; ATTEND Hospitalist
DX: R07.81 Pleurodynia (principal); I13.0 Hypertensive heart and chronic kidney disease with heart failure and stage 1 through stage 4 chronic kidney disease, or unspecified chronic kidney disease; I50.32 Chronic diastolic (congestive) heart failure; N18.3 Chronic kidney disease, stage 3 (moderate); E11.22 Type 2 diabetes mellitus with diabetic chronic kidney disease; E11.42 Type 2 diabetes mellitus with diabetic polyneuropathy; I48.0 Paroxysmal atrial fibrillation; Z98.890 Other specified postprocedural states; K21.9 Gastro-esophageal reflux disease without esophagitis; J44.9 Chronic obstructive pulmonary disease, unspecified; G47.33 Obstructive sleep apnea (adult) (pediatric); E78.5 Hyperlipidemia, unspecified; M19.90 Unspecified osteoarthritis, unspecified site; G89.29 Other chronic pain; R10.84 Generalized abdominal pain; M41.9 Scoliosis, unspecified; R53.81 Other malaise; F44.5 Conversion disorder with seizures or convulsions; R26.9 Unspecified abnormalities of gait and mobility; R53.1 Weakness; N62 Hypertrophy of breast; J98.11 Atelectasis; F41.0 Panic disorder [episodic paroxysmal anxiety]; F31.9 Bipolar disorder, unspecified; F25.9 Schizoaffective disorder, unspecified; F41.9 Anxiety disorder, unspecified; E66.01 Morbid (severe) obesity due to excess calories; Z68.42 Body mass index [BMI] 45.0-49.9, adult; Z79.899 Other long term (current) drug therapy; Z79.01 Long term (current) use of anticoagulants; Z79.891 Long term (current) use of opiate analgesic; Z79.82 Long term (current) use of aspirin; Z88.5 Allergy status to narcotic agent; Z88.0 Allergy status to penicillin; Z88.1 Allergy status to other antibiotic agents; Z88.8 Allergy status to other drugs, medicaments and biological substances; Z86.14 Personal history of Methicillin resistant Staphylococcus aureus infection; Z98.84 Bariatric surgery status; Z96.641 Presence of right artificial hip joint; Z85.828 Personal history of other malignant neoplasm of skin; Z86.73 Personal history of transient ischemic attack (TIA), and cerebral infarction without residual deficits; Z87.19 Personal history of other diseases of the digestive system; Z87.01 Personal history of pneumonia (recurrent); Z87.898 Personal history of other specified conditions; Z86.718 Personal history of other venous thrombosis and embolism; Z99.89 Dependence on other enabling machines and devices; Z74.01 Bed confinement status; Z86.711 Personal history of pulmonary embolism; Z80.1 Family history of malignant neoplasm of trachea, bronchus and lung; Z82.49 Family history of ischemic heart disease and other diseases of the circulatory system
CPT/HCPCS: 96376; 96374; 99285; 36415; 94640 ×2; 94760; 93005; 80048; 85025; 85610; 85730; 84145; 71045; 71275; G0378 ×2; J1885 ×2; Q9967

== ENCOUNTER 2019-09-18 16:59 | Observation (INO) | payer MEDICARE, BC ==
[2019-09-18] MEDS ORDERED: DEXTROSE 50% SYRINGE 50 ML IVP STA (17:26)
[2019-09-18 17:30] LABS: Glucose,Whole Blood 47 mg/dL (75-99)
[2019-09-18] MEDS ORDERED: FUROSEMIDE 10 MG/ML 4 ML VIAL IV STA (17:30)
[2019-09-18] MEDS ORDERED: IPRATROPIUM-ALBUTEROL 3 ML NEB INHALATION STA (17:30)
[2019-09-18] MEDS ORDERED: NITROGLYCERIN OINT 1 INCH/GM PACKET TOPICAL STA (17:31)
[2019-09-18] MEDS ORDERED: ASPIRIN 81 MG PO STA (17:31)
[2019-09-18 17:44] LABS: Glucose,Whole Blood 166 mg/dL (75-99)
[2019-09-18 17:49] LABS: Basophils # (A) 0.1 k/uL (0-0.2); Basophils % (A) 1 %; Eosinophils # (A) 0.3 k/uL (0-0.7); Eosinophils % (A) 4 %; HCT 34.8 % (39.0-53.0); HGB 11.1 gm/dL (13.0-17.5); Lymphocytes # (A) 1.1 k/uL (1.0-4.8); Lymphocytes % (A) 16 %; MCH 27.9 pg (25.0-35.0); MCHC 31.9 g/dL (31.0-37.0); MCV 87.5 fL (80.0-100.0); Mean Platelet Volume 5.8; Monocytes # (A) 0.4 k/uL (0-1.0); Monocytes % (A) 6 %; Neutrophils # (A) 4.9 k/uL (1.3-7.7); Neutrophils % (A) 71 %; Platelet Count 333 k/uL (150-450); RBC 3.97 m/uL (4.30-5.90); RDW 14.3 % (11.5-15.5); WBC 6.9 k/uL (3.8-10.6)
[2019-09-18 17:53] LABS: Partial Thromboplastin Time 34.6 sec (22.0-30.0); Prothrombin Time 10.9 sec (9.0-12.0)
[2019-09-18 17:59] LABS: ALT 28 U/L (21-72); AST 23 U/L (17-59); African American GFR (CKD) >90 (>60 ml/min/1.73 sqM); Albumin 3.3 g/dL (3.5-5.0); Alkaline Phosphatase 85 U/L (38-126); Blood Urea Nitrogen 17 mg/dL (9-20); Calcium 9.2 mg/dL (8.4-10.2); Chloride 89 mmol/L (98-107); Glucose 213 mg/dL (74-99); Magnesium 1.5 mg/dL (1.6-2.3); Non-African American GFR(CKD) >90 (>60 ml/min/1.73 sqM); Sodium 134 mmol/L (137-145); Total Bilirubin 0.4 mg/dL (0.2-1.3); Total Protein 6.1 g/dL (6.3-8.2)
[2019-09-18 18:05] LABS: Anion Gap 8 mmol/L; Carbon Dioxide 37 mmol/L (22-30)
[2019-09-18 18:06] LABS: Potassium 3.7 mmol/L (3.5-5.1)
--- NOTE | 2019-09-18 18:11 | XR ---
EXAMINATION TYPE: XR chest 2V DATE OF EXAM: 09/18/2019 COMPARISON: 09/15/2019 INDICATION: Difficulty breathing TECHNIQUE: Frontal and lateral views of the chest are obtained. FINDINGS: The heart size is enlarged. The pulmonary vasculature is normal. There is a small to moderate right pleural effusion. Some adjacent infiltrate is present. Findings ar e stable.. IMPRESSION: 1. Small to moderate right pleural effusion with adjacent infiltrate through the right lung. Exam is stable from comparison.
--- NOTE | 2019-09-18 18:37 | ED ---
SOB HPI - General Chief Complaint: Shortness of Breath Stated Complaint: SOB/chest pain Time Seen by Provider: 09/18/19 17:14 Source: patient Mode of arrival: ambulatory Limitations: no limitations - History of Present Illness Initial Comments: This 58-year-old white male presents with a complaint of some shortness of breath. He states that this is been going on over the past 5 days. He relates that he has had pleural effusions on the right side which have been drained. He had approximately 1 L drained last week and again another liter drained the week before. He states that this is due to his congestive heart failure. He also complains of a sharp chest pain present to his right chest. He states that this has been present since his thoracentesis. He has had occasional cough. He denies any actual fever. He states that his temperature was 99 and therefore he came to the hospital 3 days ago for this. He has been admitted to the [facility] multiple times in 2 times within the last week. He does complain of some leg swelling. He has multiple comorbidities and essentially has been bedbound since January of this year. He is currently on blood thinners. No other identifiable complaints or modifying factors. - Related Data Home Medications Medication Instructions Recorded Confirmed OLANZapine [ZyPREXA] 20 mg PO HS 03/18/19 09/18/19 Gabapentin [Neurontin] 600 mg PO DAILY 07/14/19 09/18/19 HYDROcodone/APAP 5-325MG [[place] 1 tab PO Q6H PRN 07/14/19 09/18/19 5-325] Rivaroxaban [Xarelto] 20 mg PO DAILY 07/14/19 09/18/19 DULoxetine HCL [Cymbalta] 40 mg PO DAILY 07/15/19 09/18/19 Diltiazem HCl 30 mg PO Q6H 07/15/19 09/18/19 busPIRone HCl [Buspar] 5 mg PO BID 07/15/19 09/18/19 Albuterol Inhaler [Ventolin Hfa 2 puff INHALATION RT-Q6H PRN 08/03/19 09/18/19 Inhaler] Aspirin EC [Ecotrin Low Dose] 81 mg PO DAILY 08/03/19 09/18/19 Atorvastatin [Lipitor] 10 mg PO HS 08/03/19 09/18/19 Ergocalciferol (Vitamin D2) 50,000 unit PO WE 08/03/19 09/18/19 [Vitamin D2] Hydrocortisone [Cortef] 10 mg PO BID 08/03/19 09/18/19 Lidocaine 5% Patch [Lidoderm 5% 1 patch TOPICAL DAILY 08/03/19 09/18/19 Patch] Melatonin 5 mg PO HS 08/03/19 09/18/19 Tiotropium 18 Mcg/Puff [Spiriva] 1 puff INHALATION RT-DAILY 08/03/19 09/18/19 Albuterol Nebulized [Ventolin 2.5 mg INHALATION RT-Q6H PRN 09/07/19 09/18/19 Nebulized] Potassium Chloride ER [K-Dur 20] 20 meq PO TID 09/18/19 09/18/19 Previous Rx's Medication Instructions Recorded Furosemide [Lasix] 60 mg PO BID #60 tab 09/13/19 Allergies Allergy/AdvReac Type Severity Reaction Status Date / Time codeine Allergy Severe Swelling Verified 09/18/19 17:25 OF THROAT WITH COUGH SYRUP chlorpheniramine Allergy Unknown Verified 09/18/19 17:25 febuxostat [From Uloric] Allergy Unknown Verified 09/18/19 17:25 phenylephrine Allergy Unknown Verified 09/18/19 17:25 piperacillin sodium Allergy Unknown Verified 09/18/19 17:25 [From Zosyn] tazobactam sodium Allergy Unknown Verified 09/18/19 17:25 [From Zosyn] Review of Systems ROS Statement: Those systems with pertinent positive or pertinent negative responses have been documented in the HPI. ROS Other: All systems not noted in ROS Statement are negative. Past Medical History Past Medical History: Atrial Fibrillation, Asthma, Cancer, Heart Failure, COPD, CVA/TIA, Diabetes Mellitus, Deep Vein Thrombosis (DVT), GERD/Reflux, GI Bleed, Hyperlipidemia, Hypertension, Osteoarthritis (OA), Pneumonia, Pulmonary Embolus (PE), Renal Disease, Respiratory Disorder, Sleep Apnea/CPAP/BIPAP Additional Past Medical History / Comment(s): Pt recently admitted to [facility] on 08/05/19 with acute on chronic CHF/abnormal ECHO-see report/paroxysmal afib/bilateral pleural effusions with R sided thoracentesis. Other hx: Pt denies diabetes stating he has hypoglycemia/pt recently transfered to [facility] for endocrinology consultation-states he wasn't told anything new, states he has bilateral feet neuropathy, colitis, chronic diffuse abdominal pain, chronic generalized pain, fluid retention, bedbound, lower GI bleed, hiatal hernia, DVT in leg which traveled to his lung, DDD, scoliosis, ALEXIS without device, CKD stage III, pseudoseizures with past extensive work up thru [facility], basal cell skin cancer removed from face. History of Any Multi-Drug Resistant Organisms: MRSA Date of last positivie culture/infection: AUG 2018 MDRO Source:: sputum Past Surgical History: Appendectomy, Bariatric Surgery, Heart Catheterization, Hernia Repair, Joint Replacement, Orthopedic Surgery Additional Past Surgical History / Comment(s): Gastric sleeve in 2014, L inguinal hernia repair, R elbow surgery x2, total R hip arthroplasty, L knee arthroscopy/ACL surgery, R ankle ORIF, EGD, colonoscopy, basal cell skin cancer from face, surgery for varicele. Past Anesthesia/Blood Transfusion Reactions: Previous Problems w/ Anesthesia Additional Past Anesthesia/Blood Transfusion Reaction / Comment(s): STATES HE WAS TOLD HE WAS A DIFFICULT INTUBATION WITH GASTRIC SLEEVE SURGERY, Past Psychological History: Anxiety, Depression, Panic Disorder, Schizoaffective Disorder Smoking Status: Former smoker Past Alcohol Use History: None Reported Past Drug Use History: None Reported - Past Family History Father Family Medical History: Cancer Additional Family Medical History / Comment(s): LUNG CA Mother Family Medical History: Coronary Artery Disease (CAD) Additional Family Medical History / Comment(s): Mother of an infection. General Exam - General Exam Comments Initial Comments: GENERAL: The patient is well nourished and well hydrated. VITAL SIGNS: Heart rate, blood pressure, respiratory rate reviewed as recorded in nurse's notes. EYES: Pupils are round and reactive. Extraocular movements are intact. No conjunctival / lid redness or swelling. ENT: No external evidence of injury, swelling, or ecchymosis. Airway is patent. Throat is clear. NECK: Nontender. No swelling or evidence of injury. No subcutaneous emphysema. Trachea is midline. No thyroid mass. HEART: Regular rate and rhythm. Good peripheral pulses. LUNGS/CHEST: Breath sounds clear and equal bilaterally. No rales, rhonchi, or wheezes. No ecchymosis, subcutaneous emphysema, or tenderness. ABDOMEN: Abdomen soft without tenderness. No palpable masses or organomegaly. No peritoneal signs. No abdominal wall swelling or ecchymosis. EXTREMITIES: No extremity tenderness. Normal muscle tone and function. No thoracolumbar tenderness. There is mild lower extremity swelling was no pitting edema. NEUROLOGIC: Sensation is grossly intact. Cranial nerve exam reveals face is symmetrical, tongue is midline, speech is clear. SKIN: No abrasions or ecchymosis is noted. No induration or masses noted. PSYCHIATRIC: Alert and oriented. Appropriate behavior and judgment. Limitations: no limitations Course Vital Signs 09/18/19 09/18/19 09/18/19 17:13 18:17 18:35 Temperature 98.1 F Pulse Rate 84 83 78 Respiratory 18 18 20 Rate Blood Pressure 131/72 118/59 O2 Sat by Pulse 90 L 99 Oximetry 09/18/19 18:48 Temperature Pulse Rate 78 Respiratory 18 Rate Blood Pressure O2 Sat by Pulse Oximetry Medical Decision Making - Medical Decision Making The patient was seen and examined. All diagnostics were reviewed. EKG shows a normal sinus rhythm at a rate of 75. There is no acute ST-T wave changes identified other than some mild T-wave inversions in lead V1 and V2. The QRS duration is slightly elevated at 132 and it is felt that he may have a right bundle jayy block. The IN intervals 190 and the QTC intervals 431. An IV is established and he does receive a DuoNeb breathing treatment. He also received some Lasix intravenously. An aspirin is given and Nitropaste is applied. The patient's laboratories reviewed and this does show a hypomagnesemia, hyperglycemia, hypochloremia. The x-ray shows a large right lower lobe effusion with associated infiltrate. The patient just had a CT angiogram of the chest 2 days ago and this does show the large right pleural effusion as well. The patient has some atelectasis on the right but there is no evidence of pulmonary embolism on study done 2 days ago. Case is discussed with Dr. Bashir who is extremely familiar with the patient. He feels as though the patient is stable for discharge home. He was just discharged yesterday and his symptoms are essentially unchanged. He does not have any elevation of his white blood cell count or any fever or evidence of infection. The patient's blood sugar was low and he does receive 1 amp of D50. He also was fed while in the ER. Patient will be discharged home in the near future. He is also getting some magnesium replacement prior to discharge. - Lab Data Result diagrams: 09/18/19 17:33 09/18/19 17:33 Lab Results 09/18/19 09/18/19 09/18/19 Range/Units 17:20 17:33 17:33 WBC 6.9 (3.8-10.6) k/uL RBC 3.97 L (4.30-5.90) m/uL Hgb 11.1 L (13.0-17.5) gm/dL Hct 34.8 L (39.0-53.0) % MCV 87.5 (80.0-100.0) fL MCH 27.9 (25.0-35.0) pg MCHC 31.9 (31.0-37.0) g/dL RDW 14.3 (11.5-15.5) % Plt Count 333 (150-450) k/uL Neutrophils % 71 % Lymphocytes % 16 % Monocytes % 6 % Eosinophils % 4 % Basophils % 1 % Neutrophils # 4.9 (1.3-7.7) k/uL Lymphocytes # 1.1 (1.0-4.8) k/uL Monocytes # 0.4 (0-1.0) k/uL Eosinophils # 0.3 (0-0.7) k/uL Basophils # 0.1 (0-0.2) k/uL PT (9.0-12.0) sec INR (<1.2) APTT (22.0-30.0) sec Sodium 134 L (137-145) mmol/L Potassium 3.7 (3.5-5.1) mmol/L Chloride 89 L (98-107) mmol/L Carbon Dioxide 37 H (22-30) mmol/L Anion Gap 8 mmol/L BUN 17 (9-20) mg/dL Creatinine 0.68 (0.66-1.25) mg/dL Est GFR (CKD-EPI)AfAm >90 (>60 ml/min/1.73 sqM) Est GFR (CKD-EPI)NonAf >90 (>60 ml/min/1.73 sqM) Glucose 213 H (74-99) mg/dL POC Glucose (mg/dL) 47 L (75-99) mg/dL POC Glu Mechanical Test Technician ID Michell Chowdhury Calcium 9.2 (8.4-10.2) mg/dL Magnesium 1.5 L (1.6-2.3) mg/dL Total Bilirubin 0.4 (0.2-1.3) mg/dL AST 23 (17-59) U/L ALT 28 (21-72) U/L Alkaline Phosphatase 85 (38-126) U/L Troponin I (0.000-0.034) ng/mL NT-Pro-B Natriuret Pep pg/mL Total Protein 6.1 L (6.3-8.2) g/dL Albumin 3.3 L (3.5-5.0) g/dL 09/18/19 09/18/19 09/18/19 Range/Units 17:33 17:33 17:33 WBC (3.8-10.6) k/uL RBC (4.30-5.90) m/uL Hgb (13.0-17.5) gm/dL Hct (39.0-53.0) % MCV (80.0-100.0) fL MCH (25.0-35.0) pg MCHC (31.0-37.0) g/dL RDW (11.5-15.5) % Plt Count (150-450) k/uL Neutrophils % % Lymphocytes % % Monocytes % % Eosinophils % % Basophils % % Neutrophils # (1.3-7.7) k/uL Lymphocytes # (1.0-4.8) k/uL Monocytes # (0-1.0) k/uL Eosinophils # (0-0.7) k/uL Basophils # (0-0.2) k/uL PT 10.9 (9.0-12.0) sec INR 1.0 (<1.2) APTT 34.6 H (22.0-30.0) sec Sodium (137-145) mmol/L Potassium (3.5-5.1) mmol/L Chloride (98-107) mmol/L Carbon Dioxide (22-30) mmol/L Anion Gap mmol/L BUN (9-20) mg/dL Creatinine (0.66-1.25) mg/dL Est GFR (CKD-EPI)AfAm (>60 ml/min/1.73 sqM) Est GFR (CKD-EPI)NonAf (>60 ml/min/1.73 sqM) Glucose (74-99) mg/dL POC Glucose (mg/dL) (75-99) mg/dL POC Glu Mechanical Test Technician ID Calcium (8.4-10.2) mg/dL Magnesium (1.6-2.3) mg/dL Total Bilirubin (0.2-1.3) mg/dL AST (17-59) U/L ALT (21-72) U/L Alkaline Phosphatase (38-126) U/L Troponin I <0.012 (0.000-0.034) ng/mL NT-Pro-B Natriuret Pep 149 pg/mL Total Protein (6.3-8.2) g/dL Albumin (3.5-5.0) g/dL 09/18/19 09/18/19 Range/Units 17:41 18:49 WBC (3.8-10.6) k/uL RBC (4.30-5.90) m/uL Hgb (13.0-17.5) gm/dL Hct (39.0-53.0) % MCV (80.0-100.0) fL MCH (25.0-35.0) pg MCHC (31.0-37.0) g/dL RDW (11.5-15.5) % Plt Count (150-450) k/uL Neutrophils % % Lymphocytes % % Monocytes % % Eosinophils % % Basophils % % Neutrophils # (1.3-7.7) k/uL Lymphocytes # (1.0-4.8) k/uL Monocytes # (0-1.0) k/uL Eosinophils # (0-0.7) k/uL Basophils # (0-0.2) k/uL PT (9.0-12.0) sec INR (<1.2) APTT (22.0-30.0) sec Sodium (137-145) mmol/L Potassium (3.5-5.1) mmol/L Chloride (98-107) mmol/L Carbon Dioxide (22-30) mmol/L Anion Gap mmol/L BUN (9-20) mg/dL Creatinine (0.66-1.25) mg/dL Est GFR (CKD-EPI)AfAm (>60 ml/min/1.73 sqM) Est GFR (CKD-EPI)NonAf (>60 ml/min/1.73 sqM) Glucose (74-99) mg/dL POC Glucose (mg/dL) 166 H 96 (75-99) mg/dL POC Glu Mechanical Test Technician ID Minal Penn Nicole Calcium (8.4-10.2) mg/dL Magnesium (1.6-2.3) mg/dL Total Bilirubin (0.2-1.3) mg/dL AST (17-59) U/L ALT (21-72) U/L Alkaline Phosphatase (38-126) U/L Troponin I (0.000-0.034) ng/mL NT-Pro-B Natriuret Pep pg/mL Total Protein (6.3-8.2) g/dL Albumin (3.5-5.0) g/dL Disposition Clinical Impression: Dyspnea, Chest pain, Hypochloremia, Anemia, Hyperglycemia, Recurrent right pleural effusion, Hypoxia, Hypomagnesemia Disposition: HOME SELF-CARE Condition: Stable Instructions (If sedation given, give patient instructions): Pleural Effusion (ED), Chest Pain (ED), Hypoglycemia in a Person with Diabetes (ED), Hypomagnesemia (ED) Is patient prescribed a controlled substance at d/c from ED?: No Referrals: Hugo Bailey MD [Primary Care Provider] - 1-2 days Time of Disposition: 18:49
[2019-09-18 18:51] LABS: Glucose,Whole Blood 96 mg/dL (75-99)
[2019-09-18] MEDS: MAGNESIUM SULFATE-D5W PMX 1 GM in DEXTROSE/WATER 1 100ML.BAG IVPB SCH ×2 (20:10→23:37)
[2019-09-18 20:43] LABS: Glucose,Whole Blood 172 mg/dL (75-99)
--- NOTE | 2019-09-18 20:50 | ED ---
Medical Decision Making - Medical Decision Making The patient does not want to leave the hospital. He is also concerned about his blood sugar being low and now it potentially being elevated. Dr. Bashir later does call back and states that he is willing to admit him as an observation admission. He does not recommend giving him any pain medications outside of his normal regimen as this is been a problem in the past. Patient is admitted as an observation admission to a monitored bed. - Lab Data Result diagrams: 09/18/19 17:33 09/18/19 17:33 Lab Results 09/18/19 09/18/19 09/18/19 Range/Units 17:20 17:33 17:33 WBC 6.9 (3.8-10.6) k/uL RBC 3.97 L (4.30-5.90) m/uL Hgb 11.1 L (13.0-17.5) gm/dL Hct 34.8 L (39.0-53.0) % MCV 87.5 (80.0-100.0) fL MCH 27.9 (25.0-35.0) pg MCHC 31.9 (31.0-37.0) g/dL RDW 14.3 (11.5-15.5) % Plt Count 333 (150-450) k/uL Neutrophils % 71 % Lymphocytes % 16 % Monocytes % 6 % Eosinophils % 4 % Basophils % 1 % Neutrophils # 4.9 (1.3-7.7) k/uL Lymphocytes # 1.1 (1.0-4.8) k/uL Monocytes # 0.4 (0-1.0) k/uL Eosinophils # 0.3 (0-0.7) k/uL Basophils # 0.1 (0-0.2) k/uL PT (9.0-12.0) sec INR (<1.2) APTT (22.0-30.0) sec Sodium 134 L (137-145) mmol/L Potassium 3.7 (3.5-5.1) mmol/L Chloride 89 L (98-107) mmol/L Carbon Dioxide 37 H (22-30) mmol/L Anion Gap 8 mmol/L BUN 17 (9-20) mg/dL Creatinine 0.68 (0.66-1.25) mg/dL Est GFR (CKD-EPI)AfAm >90 (>60 ml/min/1.73 sqM) Est GFR (CKD-EPI)NonAf >90 (>60 ml/min/1.73 sqM) Glucose 213 H (74-99) mg/dL POC Glucose (mg/dL) 47 L (75-99) mg/dL POC Glu Currency Examiner Michell Salazar Calcium 9.2 (8.4-10.2) mg/dL Magnesium 1.5 L (1.6-2.3) mg/dL Total Bilirubin 0.4 (0.2-1.3) mg/dL AST 23 (17-59) U/L ALT 28 (21-72) U/L Alkaline Phosphatase 85 (38-126) U/L Troponin I (0.000-0.034) ng/mL NT-Pro-B Natriuret Pep pg/mL Total Protein 6.1 L (6.3-8.2) g/dL Albumin 3.3 L (3.5-5.0) g/dL 09/18/19 09/18/19 09/18/19 Range/Units 17:33 17:33 17:33 WBC (3.8-10.6) k/uL RBC (4.30-5.90) m/uL Hgb (13.0-17.5) gm/dL Hct (39.0-53.0) % MCV (80.0-100.0) fL MCH (25.0-35.0) pg MCHC (31.0-37.0) g/dL RDW (11.5-15.5) % Plt Count (150-450) k/uL Neutrophils % % Lymphocytes % % Monocytes % % Eosinophils % % Basophils % % Neutrophils # (1.3-7.7) k/uL Lymphocytes # (1.0-4.8) k/uL Monocytes # (0-1.0) k/uL Eosinophils # (0-0.7) k/uL Basophils # (0-0.2) k/uL PT 10.9 (9.0-12.0) sec INR 1.0 (<1.2) APTT 34.6 H (22.0-30.0) sec Sodium (137-145) mmol/L Potassium (3.5-5.1) mmol/L Chloride (98-107) mmol/L Carbon Dioxide (22-30) mmol/L Anion Gap mmol/L BUN (9-20) mg/dL Creatinine (0.66-1.25) mg/dL Est GFR (CKD-EPI)AfAm (>60 ml/min/1.73 sqM) Est GFR (CKD-EPI)NonAf (>60 ml/min/1.73 sqM) Glucose (74-99) mg/dL POC Glucose (mg/dL) (75-99) mg/dL POC Glu Currency Examiner ID Calcium (8.4-10.2) mg/dL Magnesium (1.6-2.3) mg/dL Total Bilirubin (0.2-1.3) mg/dL AST (17-59) U/L ALT (21-72) U/L Alkaline Phosphatase (38-126) U/L Troponin I <0.012 (0.000-0.034) ng/mL NT-Pro-B Natriuret Pep 149 pg/mL Total Protein (6.3-8.2) g/dL Albumin (3.5-5.0) g/dL 09/18/19 09/18/19 09/18/19 Range/Units 17:41 18:49 20:39 WBC (3.8-10.6) k/uL RBC (4.30-5.90) m/uL Hgb (13.0-17.5) gm/dL Hct (39.0-53.0) % MCV (80.0-100.0) fL MCH (25.0-35.0) pg MCHC (31.0-37.0) g/dL RDW (11.5-15.5) % Plt Count (150-450) k/uL Neutrophils % % Lymphocytes % % Monocytes % % Eosinophils % % Basophils % % Neutrophils # (1.3-7.7) k/uL Lymphocytes # (1.0-4.8) k/uL Monocytes # (0-1.0) k/uL Eosinophils # (0-0.7) k/uL Basophils # (0-0.2) k/uL PT (9.0-12.0) sec INR (<1.2) APTT (22.0-30.0) sec Sodium (137-145) mmol/L Potassium (3.5-5.1) mmol/L Chloride (98-107) mmol/L Carbon Dioxide (22-30) mmol/L Anion Gap mmol/L BUN (9-20) mg/dL Creatinine (0.66-1.25) mg/dL Est GFR (CKD-EPI)AfAm (>60 ml/min/1.73 sqM) Est GFR (CKD-EPI)NonAf (>60 ml/min/1.73 sqM) Glucose (74-99) mg/dL POC Glucose (mg/dL) 166 H 96 172 H (75-99) mg/dL POC Glu Currency Examiner ID Minal Penn, Glory Queen Calcium (8.4-10.2) mg/dL Magnesium (1.6-2.3) mg/dL Total Bilirubin (0.2-1.3) mg/dL AST (17-59) U/L ALT (21-72) U/L Alkaline Phosphatase (38-126) U/L Troponin I (0.000-0.034) ng/mL NT-Pro-B Natriuret Pep pg/mL Total Protein (6.3-8.2) g/dL Albumin (3.5-5.0) g/dL Disposition Clinical Impression: Dyspnea, Chest pain, Hypochloremia, Anemia, Hyperglycemia, Recurrent right pleural effusion, Hypoxia, Hypomagnesemia, Hypoglycemia, Diabetes Disposition: ADMITTED IP TO THIS [facility] Condition: Fair Is patient prescribed a controlled substance at d/c from ED?: No Time of Disposition: 20:50 Decision Date: 09/18/19 Decision Time: 20:50
[2019-09-18] MEDS ORDERED: NALOXONE 0.4 MG/ML 1 ML VIAL IV PRN (20:51)
[2019-09-18] MEDS ORDERED: ONDANSETRON 4 MG/2 ML VIAL IVP PRN (20:51)
[2019-09-18] MEDS ORDERED: ACETAMINOPHEN TAB 325 MG TAB PO PRN (20:51)
[2019-09-18] MEDS ORDERED: ALBUTEROL NEBULIZED 2.5 MG/3 ML INHALATION PRN (20:55)
[2019-09-18] MEDS ORDERED: ALBUTEROL INHALER 60 PUFF/8 GM INHALER INHALATION PRN (20:55)
[2019-09-18] MEDS: ATORVASTATIN 10 MG TAB PO SCH (22:55)
[2019-09-18] MEDS: HYDROcodone/APAP 5-325MG 1 EACH TAB PO PRN (22:55)
[2019-09-18] MEDS: OLANZapine 10 MG TAB PO SCH (22:57)
[2019-09-18] MEDS: HYDROCORTISONE 10 MG TAB PO SCH (22:57)
[2019-09-18] MEDS: FUROSEMIDE 20 MG TAB PO SCH (22:59)
[2019-09-18] MEDS: POTASSIUM CHLORIDE ER 20 MEQ TAB.ER PO SCH (23:32)
[2019-09-18] MEDS: MELATONIN 5 MG TABLET PO SCH (23:32)
[2019-09-18] MEDS: busPIRone HCl 5 MG TAB PO SCH (23:33)
[2019-09-18] MEDS: DILTIAZEM ORAL 30 MG TAB PO SCH (23:33)
[2019-09-19 00:11] LABS: Glucose,Whole Blood 113 mg/dL (75-99)
[2019-09-19] MEDS: DILTIAZEM ORAL 30 MG TAB PO SCH ×4 (03:39→21:02)
[2019-09-19] MEDS: HYDROcodone/APAP 5-325MG 1 EACH TAB PO PRN ×2 (05:04→16:44)
[2019-09-19 05:16] VITALS: BMI 47.0
[2019-09-19 06:05] LABS: Basophils % (A) 1 %; Eosinophils # (A) 0.2 k/uL (0-0.7); Eosinophils % (A) 3 %; HGB 10.5 gm/dL (13.0-17.5); Hypochromasia Slight; Lymphocytes # (A) 1.1 k/uL (1.0-4.8); Lymphocytes % (A) 15 %; MCH 28.2 pg (25.0-35.0); MCHC 31.8 g/dL (31.0-37.0); MCV 88.6 fL (80.0-100.0); Mean Platelet Volume 6.3; Monocytes # (A) 0.4 k/uL (0-1.0); Monocytes % (A) 6 %; Neutrophils # (A) 5.4 k/uL (1.3-7.7); Neutrophils % (A) 75 %; Platelet Count 335 k/uL (150-450); RBC 3.73 m/uL (4.30-5.90); RDW 14.2 % (11.5-15.5); WBC 7.3 k/uL (3.8-10.6)
[2019-09-19 06:29] LABS: ALT 20 U/L (21-72); AST 18 U/L (17-59); African American GFR (CKD) >90 (>60 ml/min/1.73 sqM); Albumin 3.2 g/dL (3.5-5.0); Alkaline Phosphatase 91 U/L (38-126); Blood Urea Nitrogen 17 mg/dL (9-20); Calcium 9.7 mg/dL (8.4-10.2); Chloride 88 mmol/L (98-107); Glucose 101 mg/dL (74-99); Magnesium 1.9 mg/dL (1.6-2.3); Non-African American GFR(CKD) >90 (>60 ml/min/1.73 sqM); Potassium 3.7 mmol/L (3.5-5.1); Sodium 136 mmol/L (137-145); Total Bilirubin 0.3 mg/dL (0.2-1.3); Total Protein 5.8 g/dL (6.3-8.2)
[2019-09-19 06:34] LABS: Anion Gap 6 mmol/L
[2019-09-19 06:37] LABS: Carbon Dioxide 42 mmol/L (22-30)
[2019-09-19] MEDS: IPRATROPIUM 0.5 MG/2.5 ML NEBU INHALATION SCH ×4 (07:59→19:57)
[2019-09-19] MEDS: ASPIRIN 81 MG PO SCH (09:53)
[2019-09-19] MEDS: POTASSIUM CHLORIDE ER 20 MEQ TAB.ER PO SCH ×3 (09:53→21:02)
[2019-09-19] MEDS: GABAPENTIN 300 MG CAP PO SCH (09:53)
[2019-09-19] MEDS: LIDOCAINE 5% PATCH TOPICAL SCH (09:54)
[2019-09-19] MEDS: DULoxetine HCL 20 MG CAPSULE.DR PO SCH (09:55)
[2019-09-19] MEDS: HYDROCORTISONE 10 MG TAB PO SCH ×2 (09:56→21:03)
[2019-09-19] MEDS: RIVAROXABAN 20 MG TAB PO SCH (09:56)
[2019-09-19] MEDS: PANTOPRAZOLE 40 MG/10 ML VIAL IV SCH (10:00)
[2019-09-19] MEDS: busPIRone HCl 5 MG TAB PO SCH ×2 (10:28→21:03)
[2019-09-19] MEDS: FUROSEMIDE 20 MG TAB PO SCH (10:28)
[2019-09-19 12:22] LABS: Glucose,Whole Blood 126 mg/dL (75-99)
[2019-09-19 13:52] LABS: Glucose,Whole Blood 100 mg/dL (75-99)
[2019-09-19 17:08] LABS: Glucose,Whole Blood 77 mg/dL (75-99)
[2019-09-19] MEDS: FUROSEMIDE 10 MG/ML 10 ML VIAL IV SCH ×2 (17:51→23:05)
[2019-09-19 19:55] LABS: Glucose,Whole Blood 88 mg/dL (75-99)
[2019-09-19] MEDS: MELATONIN 5 MG TABLET PO SCH (21:02)
[2019-09-19] MEDS: ATORVASTATIN 10 MG TAB PO SCH (21:02)
--- NOTE | 2019-09-19 21:37 | P.HPIM ---
History of Present Illness H&P Date: 09/19/19 Chief Complaint: Right chest pain shortness Chief Complaint: Right chest sharp pain History of presenting complaint: This is a 58-year-old patient who follows with visiting physician Dr. Antelmo Steele. Patient has a rather extensive medical history. Patient presented increasing shortness of breath . Patient has not really walked since January of this year. Has a hospital bed at home. Chronic stable medical conditions include Diastolic CHF, paroxysmal atrial fibrillation, pseudoseizures with extensive work up including continuous EEG monitoring done at [facility] recently, morbid obesity, sleeve gastrectomy, COPD, diabetes mellitus,, bipolar disorder. Patient recently positive for C. diff.That failed vancomycin taper and was treated with Dificid. Patient also has bilateral pleural effusion on the large one on the right. In the beginning of July, thoracentesis was done. Subsequent attempted thoracentesis more recently. Patient was then admitted to the hospital on September 08 and discharged on September 13. Treated for CHF exacerbation treated with IV Lasix. Thoracentesis on the right side was again carried out and Dr. Hendrickson and the cytology came back to be negative. The fluid was a exudate. Patient yesterday and was admitted to the hospital on September 16 and discharged on September 18. He presents with right-sided chest pain. Pulmonary embolism was ruled out. Patient has presented to ER. His right-sided chest pain. There was no fever no white count no hypoxia. Patient does have oxygen at home. Appetite has been good. Review of systems: GEN.: Tired EYES: None HEENT: None NECK: None RESPIRATORY: Short of breath, baseline CARDIOVASCULAR: As above GASTROINTESTINAL: None GENITOURINARY: None MUSCULOSKELETAL: None LYMPHATICS: None HEMATOLOGICAL: None PSYCHIATRY: Slightly anxious NEUROLOGICAL: Weakness in the legs Past medical history: To include Diastolic CHF EF 55-60%, paroxysmal atrial fibrillation, pseudoseizures with extensive work up including congestive EEG monitoring done at [facility] recently, morbid obesity, sleeve gastrectomy, COPD, diabetes mellitus, bipolar disorder. Recent C. diff -treated with Dificid. Right chronic pleural effusion with thoracentesis 3. Cytology negative for malignancy and picture exudate Social history: Currently at home with his son. Has a hospital bed apparently has a Marah lift. Smoked from age of 15 stopped in 1998. Smoked a few cigarettes a day. Prior alcohol abuse. Stopped in 2012. Did do IV drug in the past. Family history: Lung cancer Physical examination: VITAL SIGNS: 98, 75, 18, 141/76, 98% on room air GENERAL: BMI 47.1, laying in bed, comfortable EYES: Pupils equal. Conjunctiva normal. HEENT: External appearance of nose and ears normal, oral cavity grossly normal. NECK: Neck is short and thick, JVD unable to assess, mass not palpable. HEART: Heart sounds are distant, edema minimal LUNGS: Respiratory rate normal diminished breath sounds. ABDOMEN: Soft, nontender, liver spleen not palpable, no masses palpable. PSYCH: AO 3, motor affect normal NEUROLOGICAL: Cranial nerves grossly intact; no facial asymmetry, decreased power in both lower extremity. LYMPHATICS: No lymph nodes palpable in the axilla and neck INVESTIGATIONS, reviewed in the clinical context: White count 7.3 hemoglobin 10.5 platelets 335 potassium 3.7 bun 17 creatinine 0.77 Chest x-ray film personally reviewed by me-personally reviewed by me appears to be the same as before questionable more venous prominence EKG tracing personally reviewed by me shows nonspecific T-wave changes. Assessment: -Right-sided pleuritic chest pain, probably musculoskeletal. She's had this off and on for quite some time. He has right chronic pleural effusion. 2 days ago pulmonary embolism was ruled out. Has no fever no white count. -Possible acute on Chronic congestive heart failure from diastolic dysfunction EF 55-60% -Chronic right-sided pleural effusion with thoracentesis 3. Likely a transudate but chronically has become an exudate. Negative for cytology likely from underlying CHF -Hypertensive heart disease -Paroxysmal atrial fibrillation currently in sinus rhythm, chronically on Xarelto -psuedo-seizures with extensive workup at [facility] in the past -Morbid obesity BMI 45.4 -Diabetes mellitus type 2 -Bipolar disorder -Medical debility Plan: We'll give 24 hours of IV Lasix 80 mg every 8. No other evidence of infection. Patient appears comfortable. Patient ate all of his breakfast lunch and then 1 00%. Should be agreeable to be discharged tomorrow. Care was discussed with the patient. Check labs in the morning. Home medications RESUMED. Past Medical History Past Medical History: Atrial Fibrillation, Asthma, Cancer, Heart Failure, COPD, CVA/TIA, Diabetes Mellitus, Deep Vein Thrombosis (DVT), GERD/Reflux, GI Bleed, Hyperlipidemia, Hypertension, Osteoarthritis (OA), Pneumonia, Pulmonary Embolus (PE), Renal Disease, Respiratory Disorder, Sleep Apnea/CPAP/BIPAP Additional Past Medical History / Comment(s): Pt recently admitted to [facility] on 08/05/19 with acute on chronic CHF/abnormal ECHO-see report/paroxysmal afib/bilateral pleural effusions with R sided thoracentesis. Other hx: Pt denies diabetes stating he has hypoglycemia/pt recently transfered to [facility] for endocrinology consultation-states he wasn't told anything new, states he has bilateral feet neuropathy, colitis, chronic diffuse abdominal pain, chronic generalized pain, fluid retention, bedbound, lower GI bleed, hiatal hernia, DVT in leg which traveled to his lung, DDD, scoliosis, ALEXIS without device, CKD stage III, pseudoseizures with past extensive work up thru [facility], basal cell skin cancer removed from face. History of Any Multi-Drug Resistant Organisms: MRSA Date of last positivie culture/infection: AUG 2018 MDRO Source:: sputum Past Surgical History: Appendectomy, Bariatric Surgery, Heart Catheterization, Hernia Repair, Joint Replacement, Orthopedic Surgery Additional Past Surgical History / Comment(s): Gastric sleeve in 2013, L inguinal hernia repair, R elbow surgery x2, total R hip arthroplasty, L knee arthroscopy/ACL surgery, R ankle ORIF, EGD, colonoscopy, basal cell skin cancer from face, surgery for varicele. Past Anesthesia/Blood Transfusion Reactions: Previous Problems w/ Anesthesia Additional Past Anesthesia/Blood Transfusion Reaction / Comment(s): STATES HE WAS TOLD HE WAS A DIFFICULT INTUBATION WITH GASTRIC SLEEVE SURGERY, Past Psychological History: Anxiety, Depression, Panic Disorder, Schizoaffective Disorder Additional Psychological History / Comment(s): Pt resides with his son. states his home care services just stopped 09/06/19 He states he has been bedbound past few months. Pt states he gets paranoid at times. Smoking Status: Former smoker Past Alcohol Use History: None Reported Additional Past Alcohol Use History / Comment(s): STARTED SMOKING AT AGE 15 QUIT SMOKING 1998, smoked 4 cigerettes- 1PPD FORMER ETOH ABUSE. Pt states QUIT 2012 Past Drug Use History: None Reported Additional Drug Use History / Comment(s): PAST HX OF MARIJUANA USE, DENIES USE IN YEARS. - Past Family History Father Family Medical History: Cancer Additional Family Medical History / Comment(s): LUNG CA Mother Family Medical History: Coronary Artery Disease (CAD) Additional Family Medical History / Comment(s): Mother of an infection. Medications and Allergies Home Medications Medication Instructions Recorded Confirmed Type OLANZapine [ZyPREXA] 20 mg PO HS 03/18/19 09/18/19 History Gabapentin [Neurontin] 600 mg PO DAILY 07/14/19 09/18/19 History HYDROcodone/APAP 5-325MG [[place] 1 tab PO Q6H PRN 07/14/19 09/18/19 History 5-325] Rivaroxaban [Xarelto] 20 mg PO DAILY 07/14/19 09/18/19 History DULoxetine HCL [Cymbalta] 40 mg PO DAILY 07/15/19 09/18/19 History Diltiazem HCl 30 mg PO Q6H 07/15/19 09/18/19 History busPIRone HCl [Buspar] 5 mg PO BID 07/15/19 09/18/19 History Albuterol Inhaler [Ventolin Hfa 2 puff INHALATION RT-Q6H PRN 08/03/19 09/18/19 History Inhaler] Aspirin EC [Ecotrin Low Dose] 81 mg PO DAILY 08/03/19 09/18/19 History Atorvastatin [Lipitor] 10 mg PO HS 08/03/19 09/18/19 History Ergocalciferol (Vitamin D2) 50,000 unit PO WE 08/03/19 09/18/19 History [Vitamin D2] Hydrocortisone [Cortef] 10 mg PO BID 08/03/19 09/18/19 History Lidocaine 5% Patch [Lidoderm 5% 1 patch TOPICAL DAILY 08/03/19 09/18/19 History Patch] Melatonin 5 mg PO HS 08/03/19 09/18/19 History Tiotropium 18 Mcg/Puff [Spiriva] 1 puff INHALATION RT-DAILY 08/03/19 09/18/19 History Albuterol Nebulized [Ventolin 2.5 mg INHALATION RT-Q6H PRN 09/07/19 09/18/19 History Nebulized] Furosemide [Lasix] 60 mg PO BID #60 tab 09/13/19 09/18/19 Rx Potassium Chloride ER [K-Dur 20] 20 meq PO TID 09/18/19 09/18/19 History Allergies Allergy/AdvReac Type Severity Reaction Status Date / Time codeine Allergy Severe Swelling Verified 09/18/19 17:25 OF THROAT WITH COUGH SYRUP chlorpheniramine Allergy Unknown Verified 09/18/19 17:25 febuxostat [From Uloric] Allergy Unknown Verified 09/18/19 17:25 phenylephrine Allergy Unknown Verified 09/18/19 17:25 piperacillin sodium Allergy Unknown Verified 09/18/19 17:25 [From Zosyn] tazobactam sodium Allergy Unknown Verified 09/18/19 17:25 [From Zosyn] Physical Exam Vitals: Vital Signs Temp Pulse Pulse Resp BP BP Pulse Ox 09/19/19 10:48 88 09/19/19 10:39 80 09/19/19 08:15 83 09/19/19 08:00 83 18 09/19/19 07:59 98 09/19/19 05:05 98.6 F 83 18 127/71 95 09/19/19 03:21 98 F 75 18 141/76 98 09/18/19 23:39 97.8 F 92 16 118/61 98 09/18/19 20:52 92 18 150/81 98 09/18/19 18:48 78 18 09/18/19 18:35 78 20 09/18/19 18:17 83 18 118/59 99 09/18/19 17:13 98.1 F 84 18 131/72 90 L 09/18/19 17:00 18 Intake and Output 09/18/19 09/19/19 09/19/19 22:59 06:59 14:59 Other: Weight 180.076 kg Results CBC & Chem 7: 09/19/19 05:49 09/19/19 05:49 Labs: Abnormal Lab Results - Last 24 Hours (Table) 09/18/19 09/18/19 09/18/19 Range/Units 17:20 17:33 17:33 RBC 3.97 L (4.30-5.90) m/uL Hgb 11.1 L (13.0-17.5) gm/dL Hct 34.8 L (39.0-53.0) % APTT (22.0-30.0) sec Sodium 134 L (137-145) mmol/L Chloride 89 L (98-107) mmol/L Carbon Dioxide 37 H (22-30) mmol/L Glucose 213 H (74-99) mg/dL POC Glucose (mg/dL) 47 L (75-99) mg/dL Magnesium 1.5 L (1.6-2.3) mg/dL ALT (21-72) U/L Total Protein 6.1 L (6.3-8.2) g/dL Albumin 3.3 L (3.5-5.0) g/dL 09/18/19 09/18/19 09/18/19 Range/Units 17:33 17:41 20:39 RBC (4.30-5.90) m/uL Hgb (13.0-17.5) gm/dL Hct (39.0-53.0) % APTT 34.6 H (22.0-30.0) sec Sodium (137-145) mmol/L Chloride (98-107) mmol/L Carbon Dioxide (22-30) mmol/L Glucose (74-99) mg/dL POC Glucose (mg/dL) 166 H 172 H (75-99) mg/dL Magnesium (1.6-2.3) mg/dL ALT (21-72) U/L Total Protein (6.3-8.2) g/dL Albumin (3.5-5.0) g/dL 09/19/19 09/19/19 09/19/19 Range/Units 00:10 05:49 05:49 RBC 3.73 L (4.30-5.90) m/uL Hgb 10.5 L (13.0-17.5) gm/dL Hct 33.0 L (39.0-53.0) % APTT (22.0-30.0) sec Sodium 136 L (137-145) mmol/L Chloride 88 L (98-107) mmol/L Carbon Dioxide 42 H* (22-30) mmol/L Glucose 101 H (74-99) mg/dL POC Glucose (mg/dL) 113 H (75-99) mg/dL Magnesium (1.6-2.3) mg/dL ALT 20 L (21-72) U/L Total Protein 5.8 L (6.3-8.2) g/dL Albumin 3.2 L (3.5-5.0) g/dL Thrombosis Risk Factor Assmnt - Choose All That Apply Any of the Below Risk Factors Present?: Yes Each Factor Represents 1 point: Abnormal pulmonary function (COPD), Age 41-60 years, Obesity (BMI >25), Swollen legs (current) Other Risk Factors: Yes Each Risk Factor Represents 3 Points: History of DVT/PE Other congenital or acquired thrombophilia - If yes, enter type in comment: No Thrombosis Risk Factor Assessment Total Risk Factor Score: 7 Thrombosis Risk Factor Assessment Level: High Risk
[2019-09-19] MEDS: OLANZapine 10 MG TAB PO SCH (23:06)
[2019-09-20 00:06] LABS: Glucose,Whole Blood 111 mg/dL (75-99)
[2019-09-20] MEDS: HYDROcodone/APAP 5-325MG 1 EACH TAB PO PRN ×2 (01:22→11:11)
[2019-09-20] MEDS: DILTIAZEM ORAL 30 MG TAB PO SCH ×2 (04:14→10:42)
[2019-09-20 04:15] LABS: Glucose,Whole Blood 110 mg/dL (75-99)
[2019-09-20] MEDS: FUROSEMIDE 10 MG/ML 10 ML VIAL IV SCH (05:11)
[2019-09-20 08:06] LABS: Glucose,Whole Blood 81 mg/dL (75-99)
[2019-09-20] MEDS: IPRATROPIUM 0.5 MG/2.5 ML NEBU INHALATION SCH ×2 (08:46→12:44)
[2019-09-20 08:51] LABS: African American GFR (CKD) >90 (>60 ml/min/1.73 sqM); Blood Urea Nitrogen 16 mg/dL (9-20); Calcium 9.7 mg/dL (8.4-10.2); Chloride 85 mmol/L (98-107); Glucose 83 mg/dL (74-99); Non-African American GFR(CKD) >90 (>60 ml/min/1.73 sqM); Potassium 3.2 mmol/L (3.5-5.1); Sodium 139 mmol/L (137-145)
[2019-09-20 08:59] LABS: Anion Gap 6 mmol/L; Carbon Dioxide 48 mmol/L (22-30)
[2019-09-20] MEDS ORDERED: ERGOCALCIFEROL 50,000 UNIT CAP PO SCH (09:00)
[2019-09-20] MEDS: ASPIRIN 81 MG PO SCH (10:40)
[2019-09-20] MEDS: busPIRone HCl 5 MG TAB PO SCH (10:41)
[2019-09-20] MEDS: DULoxetine HCL 20 MG CAPSULE.DR PO SCH (10:43)
[2019-09-20] MEDS: GABAPENTIN 300 MG CAP PO SCH (10:45)
[2019-09-20] MEDS: LIDOCAINE 5% PATCH TOPICAL SCH (10:46)
[2019-09-20] MEDS: PANTOPRAZOLE 40 MG/10 ML VIAL IV SCH (10:50)
[2019-09-20] MEDS: POTASSIUM CHLORIDE ER 20 MEQ TAB.ER PO SCH (10:52)
[2019-09-20] MEDS: RIVAROXABAN 20 MG TAB PO SCH (10:56)
[2019-09-20] MEDS: HYDROCORTISONE 10 MG TAB PO SCH (11:16)
[2019-09-20 12:36] VITALS: BP 126/88; RESP 14; TEMP 97.6
[2019-09-20 13:03] VITALS: PULSE 88
--- NOTE | 2019-09-20 23:26 | P.DS ---
Providers Date of admission: 09/18/19 21:13 Expected date of discharge: 09/20/19 Attending physician: Roge Bashir Consults: 09/20/19 11:47 Consult Physician Routine Consulting Provider: Jose Landaverde Consult Reason/Comments: pain management Do you want consulting provider notified?: Yes Primary care physician: [facility] Course: Chief Complaint: Right chest sharp pain Hospital course: This is a 58-year-old patient who follows with visiting physician Dr. Antelmo Steele. Patient has a rather extensive medical history. Patient presented increasing shortness of breath . Patient has not really walked since January of this year. Has a hospital bed at home. Chronic stable medical conditions include Diastolic CHF, paroxysmal atrial fibrillation, pseudoseizures with extensive work up including continuous EEG monitoring done at [facility] recently, morbid obesity, sleeve gastrectomy, COPD, diabetes mellitus,, bipolar disorder. Patient recently positive for C. diff.That failed vancomycin taper and was treated with Dificid. Patient also has bilateral pleural effusion on the large one on the right. In the beginning of July, thoracentesis was done. Subsequent attempted thoracentesis more recently. Patient was then admitted to the hospital on September 08 and discharged on September 13. Treated for CHF exacerbation treated with IV Lasix. Thoracentesis on the right side was again carried out and Dr. Hendrickson and the cytology came back to be negative. The fluid was a exudate. Patient yesterday and was admitted to the hospital on September 16 and discharged on September 18. He presents with right-sided chest pain. Pulmonary embolism was ruled out. Patient has presented to ER. His right-sided chest pain. There was no fever no white count no hypoxia. Patient does have oxygen at home. Appetite has been good.Patient felt a little bit of CHF exacerbation. Given IV Lasix. Did diurese well. Patient wanted. More pain medications. Explained to the patient that started indicated. He already takes several medications. Told him to break out patient follow-up visit. He said he has no means of doing that. Social work is involved. Told to follow up with pain services including that of Dr. Landaverde. Physical examination: VITAL SIGNS: 37.6, 80, 14, 1 26 x 88, 98% on 2 L GENERAL: BMI 47.1, laying in bed, comfortable EYES: Pupils equal. Conjunctiva normal. HEENT: External appearance of nose and ears normal, oral cavity grossly normal. NECK: Neck is short and thick, JVD unable to assess, mass not palpable. HEART: Heart sounds are distant, edema minimal LUNGS: Respiratory rate normal diminished breath sounds. ABDOMEN: Soft, nontender, liver spleen not palpable, no masses palpable. PSYCH: AO 3, motor affect normal NEUROLOGICAL: Cranial nerves grossly intact; no facial asymmetry, decreased power in both lower extremity. INVESTIGATIONS, reviewed in the clinical context: White count 7.3 hemoglobin 10.5 platelets 335 potassium 3.7 bun 17 creatinine 0.77 Chest x-ray film personally reviewed by me-personally reviewed by me appears to be the same as before questionable more venous prominence EKG tracing personally reviewed by me shows nonspecific T-wave changes. discharge diagnosis: -Right-sided pleuritic chest pain, probably musculoskeletal. She's had this off and on for quite some time. He has right chronic pleural effusion. 2 days ago pulmonary embolism was ruled out. Has no fever no white count. -Possible acute on Chronic congestive heart failure from diastolic dysfunction EF 55-60% -Chronic right-sided pleural effusion with thoracentesis 3. Likely a transudate but chronically has become an exudate. Negative for cytology likely from underlying CHF -Hypertensive heart disease -Paroxysmal atrial fibrillation currently in sinus rhythm, chronically on Xarelto -psuedo-seizures with extensive workup at [facility] in the past -Morbid obesity BMI 45.4 -Diabetes mellitus type 2 -Bipolar disorder -Medical debility disposition: Home Patient Condition at Discharge: Stable Plan - Discharge Summary New Discharge Prescriptions: Continue OLANZapine [ZyPREXA] 20 mg PO HS Rivaroxaban [Xarelto] 20 mg PO DAILY HYDROcodone/APAP 5-325MG [[place] 5-325] 1 tab PO Q6H PRN PRN Reason: Pain Gabapentin [Neurontin] 600 mg PO DAILY busPIRone HCl [Buspar] 5 mg PO BID Diltiazem HCl 30 mg PO Q6H DULoxetine HCL [Cymbalta] 40 mg PO DAILY Atorvastatin [Lipitor] 10 mg PO HS Ergocalciferol (Vitamin D2) [Vitamin D2] 50,000 unit PO WE Lidocaine 5% Patch [Lidoderm 5% Patch] 1 patch TOPICAL DAILY Hydrocortisone [Cortef] 10 mg PO BID Albuterol Inhaler [Ventolin Hfa Inhaler] 2 puff INHALATION RT-Q6H PRN PRN Reason: Shortness Of Breath Tiotropium 18 Mcg/Puff [Spiriva] 1 puff INHALATION RT-DAILY Melatonin 5 mg PO HS Aspirin EC [Ecotrin Low Dose] 81 mg PO DAILY Albuterol Nebulized [Ventolin Nebulized] 2.5 mg INHALATION RT-Q6H PRN PRN Reason: Shortness Of Breath Furosemide [Lasix] 60 mg PO BID #60 tab Potassium Chloride ER [K-Dur 20] 20 meq PO TID Discharge Medication List OLANZapine [ZyPREXA] 20 mg PO HS 03/18/19 [History] Gabapentin [Neurontin] 600 mg PO DAILY 07/14/19 [History] HYDROcodone/APAP 5-325MG [[place] 5-325] 1 tab PO Q6H PRN 07/14/19 [History] Rivaroxaban [Xarelto] 20 mg PO DAILY 07/14/19 [History] DULoxetine HCL [Cymbalta] 40 mg PO DAILY 07/15/19 [History] Diltiazem HCl 30 mg PO Q6H 07/15/19 [History] busPIRone HCl [Buspar] 5 mg PO BID 07/15/19 [History] Albuterol Inhaler [Ventolin Hfa Inhaler] 2 puff INHALATION RT-Q6H PRN 08/03/19 [History] Aspirin EC [Ecotrin Low Dose] 81 mg PO DAILY 08/03/19 [History] Atorvastatin [Lipitor] 10 mg PO HS 08/03/19 [History] Ergocalciferol (Vitamin D2) [Vitamin D2] 50,000 unit PO WE 08/03/19 [History] Hydrocortisone [Cortef] 10 mg PO BID 08/03/19 [History] Lidocaine 5% Patch [Lidoderm 5% Patch] 1 patch TOPICAL DAILY 08/03/19 [History] Melatonin 5 mg PO HS 08/03/19 [History] Tiotropium 18 Mcg/Puff [Spiriva] 1 puff INHALATION RT-DAILY 08/03/19 [History] Albuterol Nebulized [Ventolin Nebulized] 2.5 mg INHALATION RT-Q6H PRN 09/07/19 [History] Furosemide [Lasix] 60 mg PO BID #60 tab 09/13/19 [Rx] Potassium Chloride ER [K-Dur 20] 20 meq PO TID 09/18/19 [History] Follow up Appointment(s)/Referral(s): Hugo Bailey MD [Primary Care Provider] - 1-2 Days Ynes Hendrickson MD [STAFF PHYSICIAN] - 1 Week Discharge Disposition: HOME SELF-CARE
[2019-09-21] MEDS ORDERED: PANTOPRAZOLE 40 MG TABLET PO SCH (07:30)
== END 2019-09-20 14:15 | disposition home or self-care (01) ==
LOC: EC 16:59 → 3NMEDONC 21:13
PROVIDERS: ADMIT Hospitalist; ATTEND Hospitalist
DX: R07.81 Pleurodynia (principal); R07.89 Other chest pain; J90 Pleural effusion, not elsewhere classified; I13.0 Hypertensive heart and chronic kidney disease with heart failure and stage 1 through stage 4 chronic kidney disease, or unspecified chronic kidney disease; E11.22 Type 2 diabetes mellitus with diabetic chronic kidney disease; I50.32 Chronic diastolic (congestive) heart failure; N18.3 Chronic kidney disease, stage 3 (moderate); E11.65 Type 2 diabetes mellitus with hyperglycemia; E83.42 Hypomagnesemia; E11.649 Type 2 diabetes mellitus with hypoglycemia without coma; I48.0 Paroxysmal atrial fibrillation; J44.9 Chronic obstructive pulmonary disease, unspecified; E11.42 Type 2 diabetes mellitus with diabetic polyneuropathy; F44.5 Conversion disorder with seizures or convulsions; K21.9 Gastro-esophageal reflux disease without esophagitis; E78.5 Hyperlipidemia, unspecified; M19.90 Unspecified osteoarthritis, unspecified site; G47.33 Obstructive sleep apnea (adult) (pediatric); K44.9 Diaphragmatic hernia without obstruction or gangrene; F41.0 Panic disorder [episodic paroxysmal anxiety]; F25.9 Schizoaffective disorder, unspecified; F41.9 Anxiety disorder, unspecified; E66.01 Morbid (severe) obesity due to excess calories; Z68.42 Body mass index [BMI] 45.0-49.9, adult; R53.81 Other malaise; F17.210 Nicotine dependence, cigarettes, uncomplicated; E87.8 Other disorders of electrolyte and fluid balance, not elsewhere classified; J98.11 Atelectasis; D64.9 Anemia, unspecified; A04.72 Enterocolitis due to Clostridium difficile, not specified as recurrent; F31.9 Bipolar disorder, unspecified; Z99.81 Dependence on supplemental oxygen; Z74.01 Bed confinement status; Z79.01 Long term (current) use of anticoagulants; Z79.82 Long term (current) use of aspirin; Z79.891 Long term (current) use of opiate analgesic; Z79.899 Other long term (current) drug therapy; Z88.5 Allergy status to narcotic agent; Z88.0 Allergy status to penicillin; Z88.1 Allergy status to other antibiotic agents; Z88.8 Allergy status to other drugs, medicaments and biological substances; Z86.73 Personal history of transient ischemic attack (TIA), and cerebral infarction without residual deficits; Z86.711 Personal history of pulmonary embolism; Z86.718 Personal history of other venous thrombosis and embolism; Z87.01 Personal history of pneumonia (recurrent); Z87.19 Personal history of other diseases of the digestive system; Z99.89 Dependence on other enabling machines and devices; Z86.14 Personal history of Methicillin resistant Staphylococcus aureus infection; Z85.828 Personal history of other malignant neoplasm of skin; Z98.84 Bariatric surgery status; Z87.898 Personal history of other specified conditions; Z96.641 Presence of right artificial hip joint; Z80.1 Family history of malignant neoplasm of trachea, bronchus and lung; Z82.49 Family history of ischemic heart disease and other diseases of the circulatory system
CPT/HCPCS: 99285; 36415; 94640 ×5; 94760; 93005; 83880; 80053 ×2; 80048; 83735 ×2; 84484 ×2; 85025 ×2; 85610; 85730; 87040; 71046; G0378 ×3; J1940 ×3; J3475; C9113 ×2

== ENCOUNTER 2019-09-25 18:51 | Inpatient (IN) | payer MEDICARE, BC ==
[2019-09-25] MEDS ORDERED: ACETAMINOPHEN TAB 500 MG TAB PO STA (19:06)
[2019-09-25] MEDS ORDERED: SODIUM CHLORIDE 0.9% 1,000 ML IV STA (19:06)
[2019-09-25] MEDS ORDERED: KETOROLAC 30 MG/ML 1 ML VIAL IVP STA (19:07)
--- NOTE | 2019-09-25 19:16 | ED ---
Chest Pain HPI - General Chief Complaint: Chest Pain Stated Complaint: R Side Pain Time Seen by Provider: 09/25/19 18:59 Source: patient, EMS, RN notes reviewed, old records reviewed Mode of arrival: EMS Limitations: no limitations - History of Present Illness Initial Comments: This is a 58-year-old male the ER for evaluation presented today for evaluation regards to fever or chest pain history of C. diff difficulty with urination. Patient also has fluid on his lungs he feels like there is coming back exam some chest pain as well. Shortness of breath. Patient is bedbound he admits to significant lower extremity edema significant pain. MD Complaint: chest pain, other (fever) -: days(s) Onset: during rest Pain Location: substernal, right chest Pain Radiation: back Severity: moderate Severity scale (1-10): 7 Quality: aching, heaviness Consistency: constant Improves With: nothing Worsens With: nothing Anginal Symptoms: dyspnea Other Symptoms: cough, other (edema) Treatments Prior to Arrival: none - Related Data Home Medications Medication Instructions Recorded Confirmed OLANZapine [ZyPREXA] 20 mg PO HS 03/18/19 09/25/19 Gabapentin [Neurontin] 600 mg PO DAILY 07/14/19 09/25/19 HYDROcodone/APAP 5-325MG [[place] 1 tab PO Q6H PRN 07/14/19 09/25/19 5-325] Rivaroxaban [Xarelto] 20 mg PO DAILY 07/14/19 09/25/19 DULoxetine HCL [Cymbalta] 40 mg PO DAILY 07/15/19 09/25/19 Diltiazem HCl 30 mg PO Q6H 07/15/19 09/25/19 busPIRone HCl [Buspar] 5 mg PO BID 07/15/19 09/25/19 Albuterol Inhaler [Ventolin Hfa 2 puff INHALATION RT-Q6H PRN 08/03/19 09/25/19 Inhaler] Aspirin EC [Ecotrin Low Dose] 81 mg PO DAILY 08/03/19 09/25/19 Atorvastatin [Lipitor] 10 mg PO HS 08/03/19 09/25/19 Ergocalciferol (Vitamin D2) 50,000 unit PO WE 08/03/19 09/25/19 [Vitamin D2] Hydrocortisone [Cortef] 10 mg PO BID 08/03/19 09/25/19 Lidocaine 5% Patch [Lidoderm 5% 1 patch TOPICAL DAILY 08/03/19 09/25/19 Patch] Melatonin 5 mg PO HS 08/03/19 09/25/19 Tiotropium 18 Mcg/Puff [Spiriva] 1 puff INHALATION RT-DAILY 08/03/19 09/25/19 Albuterol Nebulized [Ventolin 2.5 mg INHALATION RT-Q6H PRN 09/07/19 09/25/19 Nebulized] Potassium Chloride ER [K-Dur 20] 20 meq PO TID 09/18/19 09/25/19 Previous Rx's Medication Instructions Recorded Furosemide [Lasix] 60 mg PO BID #60 tab 09/13/19 Allergies Allergy/AdvReac Type Severity Reaction Status Date / Time codeine Allergy Severe Swelling Verified 09/25/19 19:21 OF THROAT WITH COUGH SYRUP chlorpheniramine Allergy Unknown Verified 09/25/19 19:21 febuxostat [From Uloric] Allergy Unknown Verified 09/25/19 19:21 phenylephrine Allergy Unknown Verified 09/25/19 19:21 piperacillin sodium Allergy Unknown Verified 09/25/19 19:21 [From Zosyn] tazobactam sodium Allergy Unknown Verified 09/25/19 19:21 [From Zosyn] Review of Systems ROS Statement: Those systems with pertinent positive or pertinent negative responses have been documented in the HPI. ROS Other: All systems not noted in ROS Statement are negative. EKG Findings - EKG Comments: EKG Findings:: EKG shows sinus tachycardia about 2, KS 134, QRS 08, QTc 432 Past Medical History Past Medical History: Atrial Fibrillation, Asthma, Cancer, Heart Failure, COPD, CVA/TIA, Diabetes Mellitus, Deep Vein Thrombosis (DVT), GERD/Reflux, GI Bleed, Hyperlipidemia, Hypertension, Osteoarthritis (OA), Pneumonia, Pulmonary Embolus (PE), Renal Disease, Respiratory Disorder, Sleep Apnea/CPAP/BIPAP Additional Past Medical History / Comment(s): Pt recently admitted to [facility] on 08/05/19 with acute on chronic CHF/abnormal ECHO-see report/paroxysmal afib/bilateral pleural effusions with R sided thoracentesis. Other hx: Pt denies diabetes stating he has hypoglycemia/pt recently transfered to [facility] for endocrinology consultation-states he wasn't told anything new, states he has bilateral feet neuropathy, colitis, chronic diffuse abdominal pain, chronic generalized pain, fluid retention, bedbound, lower GI bleed, hiatal hernia, DVT in leg which traveled to his lung, DDD, scoliosis, ALEXIS without device, CKD stage III, pseudoseizures with past extensive work up thru [facility], basal cell skin cancer removed from face. History of Any Multi-Drug Resistant Organisms: MRSA Date of last positivie culture/infection: AUG 2018 MDRO Source:: sputum Past Surgical History: Appendectomy, Bariatric Surgery, Heart Catheterization, Hernia Repair, Joint Replacement, Orthopedic Surgery Additional Past Surgical History / Comment(s): Gastric sleeve in 2014, L inguinal hernia repair, R elbow surgery x2, total R hip arthroplasty, L knee arthroscopy/ACL surgery, R ankle ORIF, EGD, colonoscopy, basal cell skin cancer from face, surgery for varicele. Past Anesthesia/Blood Transfusion Reactions: Previous Problems w/ Anesthesia Additional Past Anesthesia/Blood Transfusion Reaction / Comment(s): STATES HE WAS TOLD HE WAS A DIFFICULT INTUBATION WITH GASTRIC SLEEVE SURGERY, Past Psychological History: Anxiety, Depression, Panic Disorder, Schizoaffective Disorder Smoking Status: Former smoker Past Alcohol Use History: None Reported Past Drug Use History: None Reported - Past Family History Father Family Medical History: Cancer Additional Family Medical History / Comment(s): LUNG CA Mother Family Medical History: Coronary Artery Disease (CAD) Additional Family Medical History / Comment(s): Mother of an infection. General Exam Limitations: no limitations General appearance: alert, in no apparent distress, anxious, lethargic, obese Head exam: Present: atraumatic, normocephalic, normal inspection Eye exam: Present: normal appearance, PERRL, EOMI. Absent: scleral icterus, conjunctival injection, periorbital swelling ENT exam: Present: normal exam, mucous membranes moist Neck exam: Present: normal inspection. Absent: tenderness, meningismus, lymphadenopathy Respiratory exam: Present: respiratory distress, accessory muscle use, decreased breath sounds (Decreased breath sounds right side), prolonged expiratory. Absent: wheezes, rales, rhonchi, stridor Cardiovascular Exam: Present: normal rhythm, tachycardia, normal heart sounds. Absent: systolic murmur, diastolic murmur, rubs, gallop, clicks GI/Abdominal exam: Present: soft, normal bowel sounds. Absent: distended, tenderness, guarding, rebound, rigid Extremities exam: Present: normal inspection, full ROM, normal capillary refill. Absent: tenderness, pedal edema, joint swelling, calf tenderness Back exam: Present: normal inspection Neurological exam: Present: alert, oriented X3, CN II-XII intact Psychiatric exam: Present: normal affect, normal mood Skin exam: Present: warm, dry, intact, normal color. Absent: rash Course Vital Signs 09/25/19 09/25/19 09/25/19 18:58 19:07 20:25 Temperature 101.1 F H Pulse Rate 105 H Respiratory 18 20 20 Rate Blood Pressure 122/70 O2 Sat by Pulse 93 L 97 Oximetry - Reevaluation(s) Reevaluation #1: 09/25/19 21:33 Medical record is reviewed Reevaluation #2: 09/25/19 21:33 Patient not feeling much better currently - Consultations Consultation #1: spoke w Dr Gaston who is okay for admission Chest Pain MDM - MDM 58 male the ER with chest pain he has recurrent right pleural effusion the patient is presenting for fever as well. Significant urinary tract infection with sepsis will admit patient for evaluation and treatment Critical Care Time Critical Care Time: Yes Total Critical Care Time: 31 Disposition Clinical Impression: Urinary retention, General weakness, Sepsis, Pleural effusion, right Disposition: ADMITTED IP TO THIS [facility] Condition: Serious Is patient prescribed a controlled substance at d/c from ED?: No Referrals: Hugo Bailey MD [Primary Care Provider] - 1-2 days
[2019-09-25 19:26] LABS: Basophils # (A) 0.1 k/uL (0-0.2); Basophils % (A) 0 %; Eosinophils # (A) 0.1 k/uL (0-0.7); Eosinophils % (A) 0 %; HCT 34.6 % (39.0-53.0); HGB 11.5 gm/dL (13.0-17.5); Lymphocytes # (A) 0.7 k/uL (1.0-4.8); Lymphocytes % (A) 3 %; MCH 28.3 pg (25.0-35.0); MCHC 33.2 g/dL (31.0-37.0); MCV 85.4 fL (80.0-100.0); Mean Platelet Volume 6.4; Monocytes % (A) 5 %; Neutrophils # (A) 18.7 k/uL (1.3-7.7); Neutrophils % (A) 90 %; Platelet Count 387 k/uL (150-450); RBC 4.05 m/uL (4.30-5.90); RDW 14.2 % (11.5-15.5); WBC 20.8 k/uL (3.8-10.6)
[2019-09-25 19:34] LABS: INR 1.1 (<1.2); Partial Thromboplastin Time 35.4 sec (22.0-30.0); Prothrombin Time 11.6 sec (9.0-12.0)
[2019-09-25 19:35] LABS: ALT 32 U/L (21-72); AST 25 U/L (17-59); African American GFR (CKD) >90 (>60 ml/min/1.73 sqM); Albumin 3.5 g/dL (3.5-5.0); Alkaline Phosphatase 109 U/L (38-126); Anion Gap 5 mmol/L; Blood Urea Nitrogen 18 mg/dL (9-20); Calcium 9.5 mg/dL (8.4-10.2); Carbon Dioxide 38 mmol/L (22-30); Chloride 90 mmol/L (98-107); Creatine Kinase <20 U/L (55-170); Glucose 126 mg/dL (74-99); Magnesium 1.2 mg/dL (1.6-2.3); Potassium 3.9 mmol/L (3.5-5.1); Sodium 133 mmol/L (137-145); Total Bilirubin 0.5 mg/dL (0.2-1.3); Total Protein 6.2 g/dL (6.3-8.2)
[2019-09-25 20:27] LABS: Appearance,Urine Cloudy (Clear); Bilirubin,Urine Negative (Negative); Blood,Urine Trace (Negative); Color,Urine Yellow; Glucose,Urine (UA) Negative (Negative); Ketones,Urine Negative (Negative); Leukocyte Esterase,Urine Large (Negative); Mucus,Urine Rare /hpf; Nitrite,Urine Positive (Negative); PH, Urine 7.5 (5.0-8.0); Protein,Urine Trace (Negative); RBC,Urine 14 /hpf (0-5); Specific Gravity,Urine 1.014 (1.001-1.035); Urobilinogen,Urine <2.0 mg/dL (<2.0)
--- NOTE | 2019-09-25 20:35 | XR ---
EXAMINATION TYPE: XR chest 2V DATE OF EXAM: 09/25/2019 COMPARISON: 09/18/2019 HISTORY: Fever TECHNIQUE: Frontal and lateral views of the chest are obtained. FINDINGS: There is blunting of right costophrenic angle. Left lung is clear. There are chest leads. Bony thorax is intact. There is no heart failure. IMPRESSION: Moderate size right pleural effusion unchanged. No heart failure seen.
[2019-09-26] MEDS: SODIUM CHLORIDE 0.9% 1,000 ML IV SCH ×2 (00:03→06:00)
[2019-09-26] MEDS ORDERED: HYDROcodone/APAP 5-325MG 1 EACH TAB PO PRN (00:15)
[2019-09-26] MEDS ORDERED: ALBUTEROL NEBULIZED 2.5 MG/3 ML INHALATION PRN (00:15)
[2019-09-26] MEDS ORDERED: ALBUTEROL INHALER 60 PUFF/8 GM INHALER INHALATION PRN (00:15)
--- NOTE | 2019-09-26 01:16 | P.HPIM ---
History of Present Illness H&P Date: 09/26/19 Chief Complaint: generalized weakness, fever and chillls.. 58 year old male with history of diastolic heart failure, afib on xarelto. frequent hospitalizations for pneumonia and right sided pelural effusion , debility and bed ridden lives at home with family Patient comes in from home today due to feeling weak and tired and not feeling well. Reporting fevers and chills. Reports strong urinary symptoms of frequency and urgency and incomplete emptying of bladder foul smell. With lower abdominal pain 6 out of 10 in severity and nonradiating no aggravating or alleviating factors with fevers and chills and nausea no back pain. Patient denies any trouble breathing but reports some chronic mild monitored for right-sided chest pain pleuritic in nature. Patient also complains of chronic pain issues with his legs and lower back. Denies any GI bleeding patient takes Xarelto for A. fib. Patient has been bedridden since January has a hospital bed at home doesn't do much around the house he wants to stay at home as he lives with his cats is taking care of him. In the ED was found to have urinary tract infection with sepsis admitted for further care Review of Systems Pertinent positives as noted in HPI. All other systems were reviewed and are negative Past Medical History Past Medical History: Atrial Fibrillation, Asthma, Cancer, Heart Failure, COPD, CVA/TIA, Diabetes Mellitus, Deep Vein Thrombosis (DVT), GERD/Reflux, GI Bleed, Hyperlipidemia, Hypertension, Osteoarthritis (OA), Pneumonia, Pulmonary Embolus (PE), Renal Disease, Respiratory Disorder, Sleep Apnea/CPAP/BIPAP Additional Past Medical History / Comment(s): Pt recently admitted to [facility] on 08/05/19 with acute on chronic CHF/abnormal ECHO-see report/paroxysmal afib/bilateral pleural effusions with R sided thoracentesis. Other hx: Pt denies diabetes stating he has hypoglycemia/pt recently transfered to [facility] for endocrinology consultation-states he wasn't told anything new, states he has bilateral feet neuropathy, colitis, chronic diffuse abdominal pain, chronic generalized pain, fluid retention, bedbound, lower GI bleed, hiatal hernia, DVT in leg which traveled to his lung, DDD, scoliosis, ALEXIS without device, CKD stage III, pseudoseizures with past extensive work up thru [facility], basal cell skin cancer removed from face. History of Any Multi-Drug Resistant Organisms: MRSA Date of last positivie culture/infection: AUG 2018 MDRO Source:: sputum Past Surgical History: Appendectomy, Bariatric Surgery, Heart Catheterization, Hernia Repair, Joint Replacement, Orthopedic Surgery Additional Past Surgical History / Comment(s): Gastric sleeve in 2014, L inguinal hernia repair, R elbow surgery x2, total R hip arthroplasty, L knee arthroscopy/ACL surgery, R ankle ORIF, EGD, colonoscopy, basal cell skin cancer from face, surgery for varicele. Past Anesthesia/Blood Transfusion Reactions: Previous Problems w/ Anesthesia Additional Past Anesthesia/Blood Transfusion Reaction / Comment(s): STATES HE WAS TOLD HE WAS A DIFFICULT INTUBATION WITH GASTRIC SLEEVE SURGERY, Past Psychological History: Anxiety, Depression, Panic Disorder, Schizoaffective Disorder Smoking Status: Former smoker Past Alcohol Use History: None Reported Past Drug Use History: None Reported - Past Family History Father Family Medical History: Cancer Additional Family Medical History / Comment(s): LUNG CA Mother Family Medical History: Coronary Artery Disease (CAD) Additional Family Medical History / Comment(s): Mother of an infection. Medications and Allergies Home Medications Medication Instructions Recorded Confirmed Type OLANZapine [ZyPREXA] 20 mg PO HS 03/18/19 09/25/19 History Gabapentin [Neurontin] 600 mg PO DAILY 07/14/19 09/25/19 History HYDROcodone/APAP 5-325MG [[place] 1 tab PO Q6H PRN 07/14/19 09/25/19 History 5-325] Rivaroxaban [Xarelto] 20 mg PO DAILY 07/14/19 09/25/19 History DULoxetine HCL [Cymbalta] 40 mg PO DAILY 07/15/19 09/25/19 History Diltiazem HCl 30 mg PO Q6H 07/15/19 09/25/19 History busPIRone HCl [Buspar] 5 mg PO BID 07/15/19 09/25/19 History Albuterol Inhaler [Ventolin Hfa 2 puff INHALATION RT-Q6H PRN 08/03/19 09/25/19 History Inhaler] Aspirin EC [Ecotrin Low Dose] 81 mg PO DAILY 08/03/19 09/25/19 History Atorvastatin [Lipitor] 10 mg PO HS 08/03/19 09/25/19 History Ergocalciferol (Vitamin D2) 50,000 unit PO WE 08/03/19 09/25/19 History [Vitamin D2] Hydrocortisone [Cortef] 10 mg PO BID 08/03/19 09/25/19 History Lidocaine 5% Patch [Lidoderm 5% 1 patch TOPICAL DAILY 08/03/19 09/25/19 History Patch] Melatonin 5 mg PO HS 08/03/19 09/25/19 History Tiotropium 18 Mcg/Puff [Spiriva] 1 puff INHALATION RT-DAILY 08/03/19 09/25/19 History Albuterol Nebulized [Ventolin 2.5 mg INHALATION RT-Q6H PRN 09/07/19 09/25/19 History Nebulized] Furosemide [Lasix] 60 mg PO BID #60 tab 09/13/19 09/25/19 Rx Potassium Chloride ER [K-Dur 20] 20 meq PO TID 09/18/19 09/25/19 History Allergies Allergy/AdvReac Type Severity Reaction Status Date / Time codeine Allergy Severe Swelling Verified 09/25/19 19:21 OF THROAT WITH COUGH SYRUP chlorpheniramine Allergy Unknown Verified 09/25/19 19:21 febuxostat [From Uloric] Allergy Unknown Verified 09/25/19 19:21 phenylephrine Allergy Unknown Verified 09/25/19 19:21 piperacillin sodium Allergy Unknown Verified 09/25/19 19:21 [From Zosyn] tazobactam sodium Allergy Unknown Verified 09/25/19 19:21 [From Zosyn] Physical Exam Vitals: Vital Signs Temp Pulse Resp BP Pulse Ox 09/25/19 23:56 98.1 F 74 20 123/70 98 09/25/19 22:08 88 18 124/75 94 L 09/25/19 20:25 20 97 09/25/19 19:07 20 09/25/19 18:58 101.1 F H 105 H 18 122/70 93 L Intake and Output 09/25/19 09/25/19 09/26/19 14:59 22:59 06:59 Other: Weight 181.437 kg Constitutional: No acute distress, conversant, pleasant Eyes: Anicteric sclerae, moist conjunctiva, no lid-lag Pupils equal round reactive to light ENMT: NC/AT Oropharynx clear, no erythema, exudates Neck: Supple, FROM, no masses, or JVD No carotid bruits No thyromegaly Lungs: Good breath sound throughout, decreased breath sound mainly at right lower lung Decreased on with percussion over right lower lung Normal respiratory effort, no accessory muscle use Cardiovascular: Heart regular in rate and rhythm, No murmurs, gallops, or rubs +2 bilateral peripheral edema nonpitting Abdominal: Soft Slight discomfort to deep palpation suprapubic region, no guarding, rebound or rigidity Abdomen moving with respiration Normoactive bowel sounds No hepatomegaly, No splenomegaly No palpable mass No abdominal wall hernia noted Skin: Normal temperature, tone, texture, turgor No induration No subcutaneous nodules No rash, lesions No ulcers Extremities: No digital cyanosis No clubbing Pedal pulses weak bilaterally capillary refill is immediate Radial pulses intact and symmetrical No calf tenderness Psychiatric: Alert and oriented to person, place and time Appropriate affect fair judgment Neuro Muscles Strength 2 out of 5 in bilateral lower extremities distal muscles, 3 out of 5 proximal muscle group of bilateral lower extremities. 4 out of 5 bilateral upper extremities Sensation to light touch grossly present throughout Cranial nerves II-XII grossly intact No focal sensory deficits Lymphatics: no palpable cervical or supraclavicular , or inguinal lymph nodes Results CBC & Chem 7: 09/25/19 19:10 09/25/19 19:10 Labs: Abnormal Lab Results - Last 24 Hours (Table) 09/25/19 09/25/19 09/25/19 Range/Units 19:10 19:10 19:10 WBC 20.8 H (3.8-10.6) k/uL RBC 4.05 L (4.30-5.90) m/uL Hgb 11.5 L (13.0-17.5) gm/dL Hct 34.6 L (39.0-53.0) % Neutrophils # 18.7 H (1.3-7.7) k/uL Lymphocytes # 0.7 L (1.0-4.8) k/uL APTT 35.4 H (22.0-30.0) sec Sodium 133 L (137-145) mmol/L Chloride 90 L (98-107) mmol/L Carbon Dioxide 38 H (22-30) mmol/L Glucose 126 H (74-99) mg/dL Plasma Lactic Acid Benjie (0.7-2.0) mmol/L Magnesium 1.2 L (1.6-2.3) mg/dL Creatine Kinase <20 L (55-170) U/L Total Protein 6.2 L (6.3-8.2) g/dL Urine Protein (Negative) Urine Blood (Negative) Ur Leukocyte Esterase (Negative) Urine RBC (0-5) /hpf Urine WBC (0-5) /hpf Urine Mucus (None) /hpf 09/25/19 09/25/19 Range/Units 20:10 21:45 WBC (3.8-10.6) k/uL RBC (4.30-5.90) m/uL Hgb (13.0-17.5) gm/dL Hct (39.0-53.0) % Neutrophils # (1.3-7.7) k/uL Lymphocytes # (1.0-4.8) k/uL APTT (22.0-30.0) sec Sodium (137-145) mmol/L Chloride (98-107) mmol/L Carbon Dioxide (22-30) mmol/L Glucose (74-99) mg/dL Plasma Lactic Acid Benjie 0.5 L (0.7-2.0) mmol/L Magnesium (1.6-2.3) mg/dL Creatine Kinase (55-170) U/L Total Protein (6.3-8.2) g/dL Urine Protein Trace H (Negative) Urine Blood Trace H (Negative) Ur Leukocyte Esterase Large H (Negative) Urine RBC 14 H (0-5) /hpf Urine WBC 78 H (0-5) /hpf Urine Mucus Rare H (None) /hpf Assessment and Plan Assessment: 58 year old male with history of diastolic heart failure, afib on xarelto. frequent hospitalizations for pneumonia and right sided pelural effusion , debility and bed ridden lives at home with family . [facility] length of stay more than a 2 mid nights for sepsis secondary to UTI Patient with frequent hospitalization over the past 6 months for pneumonia and recurrent right pleural effusion Plan: Sepsis secondary to UTI Follow-up cultures Rocephin Pain control Symptomatic control of fevers IV fluid hydration Hold diuretics Recurrent right sided pleural effusion currently stable compared to 1 week ago Pulmonic consult for thoracentesis Diabetic on hold due to sepsis Chronic conditions Diastolic CHF A. fib paroxysmal on xarelto Chronic anemia Denies GI bleeding Stable Hypomagnesemia Replace and follow up levels in the morning Preformed a thorough record review from recent hospitalization for pneumonia and pleural effusion CODE STATUS: Full code DVT prophylaxis: On Xarelto Discussed with: Patient, ER, RN Anticipated length of stay more than [address]: Home with home care A total of 60 minutes was spent on the care of this complex patient more than 50% of the time was spent in counseling and care coordination. Sepsis - Sepsis Sepsis Focused Exam #1 Sepsis Focused Exam Date: 09/25/19 Sepsis Focused Exam Time: 11:30 Sepsis Focused Exam Complete: Yes Vital Signs & RN Notes Reviewed: Yes Capillary Refill: < 2 Seconds: Fingers, Toes Peripheral Pulses: Weak: Posterior Tibialis (R), Posterior Tibialis (L), Dorsalis Pedis (R), Dorsalis Pedis (L), Normal: Radial (R), Radial (L) Skin Color: Pallor Respiratory Exam Comment: decrease breath sounds at bilateral lung bases, right worse than left Cardiovascular Exam: regular rate
[2019-09-26] MEDS: DILTIAZEM ORAL 30 MG TAB PO SCH ×5 (01:26→23:29)
[2019-09-26] MEDS: MELATONIN 5 MG TABLET PO SCH ×2 (01:27→21:38)
[2019-09-26] MEDS: busPIRone HCl 5 MG TAB PO SCH ×3 (01:27→22:18)
[2019-09-26] MEDS: OLANZapine 10 MG TAB PO SCH ×2 (01:28→21:38)
[2019-09-26] MEDS: HYDROCORTISONE SUCCINATE 100 MG/2 ML VIAL IV SCH ×3 (03:09→17:36)
[2019-09-26] MEDS: KETOROLAC 30 MG/ML 1 ML VIAL IVP SCH ×4 (05:56→23:28)
[2019-09-26 07:32] LABS: Glucose,Whole Blood 131 mg/dL (75-99)
[2019-09-26] MEDS: IPRATROPIUM 0.5 MG/2.5 ML NEBU INHALATION SCH ×4 (08:50→20:57)
[2019-09-26] MEDS ORDERED: GABAPENTIN 300 MG CAP PO SCH (09:00)
[2019-09-26] MEDS: PANTOPRAZOLE 40 MG TABLET PO SCH (09:12)
[2019-09-26] MEDS: ASPIRIN 81 MG PO SCH (09:13)
[2019-09-26] MEDS: DULoxetine HCL 20 MG CAPSULE.DR PO SCH (09:15)
[2019-09-26 09:18] LABS: HCT 32.4 % (39.0-53.0); HGB 10.3 gm/dL (13.0-17.5); Hypochromasia Slight; MCH 27.8 pg (25.0-35.0); MCHC 31.7 g/dL (31.0-37.0); MCV 87.8 fL (80.0-100.0); Platelet Count 283 k/uL (150-450); RBC 3.69 m/uL (4.30-5.90); RDW 14.1 % (11.5-15.5); WBC 17.5 k/uL (3.8-10.6)
[2019-09-26] MEDS: RIVAROXABAN 20 MG TAB PO SCH (09:19)
[2019-09-26 09:33] LABS: African American GFR (CKD) >90 (>60 ml/min/1.73 sqM); Anion Gap 3 mmol/L; Blood Urea Nitrogen 23 mg/dL (9-20); Calcium 9.3 mg/dL (8.4-10.2); Carbon Dioxide 40 mmol/L (22-30); Chloride 93 mmol/L (98-107); Glucose 117 mg/dL (74-99); Potassium 4.1 mmol/L (3.5-5.1); Sodium 136 mmol/L (137-145)
[2019-09-26] MEDS: INSULIN ASPART (NovoLOG) 100 UNIT/ML VIAL SQ SCH ×4 (09:47→21:38)
[2019-09-26] MEDS: MAGNESIUM SULFATE-D5W PMX 1 GM in DEXTROSE/WATER 1 100ML.BAG IVPB SCH ×2 (11:11→12:58)
--- NOTE | 2019-09-26 12:08 | P.PN ---
Subjective Progress Note Date: 09/26/19 Patient is a 58-year-old male with a extensive past medical history including A. fib (on Xarelto), chronic debility (bedbound at baseline), recurrent right-sided pleural effusions, chronic diastolic CHF, asthma, diabetes mellitus, hypertension, hyperlipidemia, and history of pulmonary embolus and DVT with multiple hospitalizations presented to the hospital w/ complaints of feeling weak, with fever, chills, and urinary complaints including urgency, frequency, and incomplete emptying. Patient also reported a 6 out of 10 lower abdominal pain nonradiating. The patient was noted to have sepsis secondary to UTI in the emergency room and was admitted for further management. Patient was seen and examined at the bedside on 09/26. He reported continued abdominal pain though some improvement in his urinary symptoms. He noted occasional pleuritic chest pain at home though denied any chest discomfort or shortness of breath at this time. He also denied diarrhea, nausea, or vomiting. Objective - Vital Signs Vital signs: Vital Signs Temp 96.7 F L 09/26/19 11:18 Pulse 67 09/26/19 11:18 Resp 18 09/26/19 11:18 BP 110/57 09/26/19 11:18 Pulse Ox 95 09/26/19 08:14 Intake & Output 09/25/19 09/26/19 09/26/19 18:59 06:59 18:59 Intake Total 1650 Balance 1650 Weight 181.437 kg Intake: Amount of Fluid Infused ( 1000 ml) Intake, IV Titration 650 Amount Sodium Chloride 0.9% 1, 650 000 ml @ 130 mls/hr IV . Q7H42M [facility] Rx#:[id number] Other: Voiding Method Urinal - Exam General: Non-toxic, in no acute distress, appears older than stated age, morbidly obese HEENT: NC/AT, anicteric sclerae, moist conjunctiva, no lid-lag, PERRLA, very poor dentition Cardiovascular: S1/S2 wnl, no murmurs, rubs, or gallops Lungs: Scattered ronchi, no rales, no accessory muscle use Abdominal: Soft, non-tender, non-distended, no guarding, rebound, or rigidity Skin: Warm, dry Extremities: CHAYO 1+ edema, no contractures Psychiatric: Alert and oriented to person, place and time, appropriate affect Neuro: CN II-XII grossly intact, Strength 4/5 in all chayo LE extremities, Speech intact, Sensation to light touch grossly intact throughout - Labs CBC & Chem 7: 09/26/19 09:00 09/26/19 09:00 Labs: Abnormal Lab Results - Last 24 Hours (Table) 09/25/19 09/25/19 09/25/19 Range/Units 19:10 19:10 19:10 WBC 20.8 H (3.8-10.6) k/uL RBC 4.05 L (4.30-5.90) m/uL Hgb 11.5 L (13.0-17.5) gm/dL Hct 34.6 L (39.0-53.0) % Neutrophils # 18.7 H (1.3-7.7) k/uL Lymphocytes # 0.7 L (1.0-4.8) k/uL APTT 35.4 H (22.0-30.0) sec Sodium 133 L (137-145) mmol/L Chloride 90 L (98-107) mmol/L Carbon Dioxide 38 H (22-30) mmol/L BUN (9-20) mg/dL Glucose 126 H (74-99) mg/dL POC Glucose (mg/dL) (75-99) mg/dL Plasma Lactic Acid Benjie (0.7-2.0) mmol/L Magnesium 1.2 L (1.6-2.3) mg/dL Creatine Kinase <20 L (55-170) U/L Total Protein 6.2 L (6.3-8.2) g/dL Urine Protein (Negative) Urine Blood (Negative) Ur Leukocyte Esterase (Negative) Urine RBC (0-5) /hpf Urine WBC (0-5) /hpf Urine Mucus (None) /hpf 09/25/19 09/25/19 09/26/19 Range/Units 20:10 21:45 01:14 WBC (3.8-10.6) k/uL RBC (4.30-5.90) m/uL Hgb (13.0-17.5) gm/dL Hct (39.0-53.0) % Neutrophils # (1.3-7.7) k/uL Lymphocytes # (1.0-4.8) k/uL APTT (22.0-30.0) sec Sodium (137-145) mmol/L Chloride (98-107) mmol/L Carbon Dioxide (22-30) mmol/L BUN (9-20) mg/dL Glucose (74-99) mg/dL POC Glucose (mg/dL) (75-99) mg/dL Plasma Lactic Acid Benjie 0.5 L 0.6 L (0.7-2.0) mmol/L Magnesium (1.6-2.3) mg/dL Creatine Kinase (55-170) U/L Total Protein (6.3-8.2) g/dL Urine Protein Trace H (Negative) Urine Blood Trace H (Negative) Ur Leukocyte Esterase Large H (Negative) Urine RBC 14 H (0-5) /hpf Urine WBC 78 H (0-5) /hpf Urine Mucus Rare H (None) /hpf 09/26/19 09/26/19 09/26/19 Range/Units 07:30 09:00 09:00 WBC 17.5 H (3.8-10.6) k/uL RBC 3.69 L (4.30-5.90) m/uL Hgb 10.3 L (13.0-17.5) gm/dL Hct 32.4 L (39.0-53.0) % Neutrophils # (1.3-7.7) k/uL Lymphocytes # (1.0-4.8) k/uL APTT (22.0-30.0) sec Sodium 136 L (137-145) mmol/L Chloride 93 L (98-107) mmol/L Carbon Dioxide 40 H (22-30) mmol/L BUN 23 H (9-20) mg/dL Glucose 117 H (74-99) mg/dL POC Glucose (mg/dL) 131 H (75-99) mg/dL Plasma Lactic Acid Benjie (0.7-2.0) mmol/L Magnesium (1.6-2.3) mg/dL Creatine Kinase (55-170) U/L Total Protein (6.3-8.2) g/dL Urine Protein (Negative) Urine Blood (Negative) Ur Leukocyte Esterase (Negative) Urine RBC (0-5) /hpf Urine WBC (0-5) /hpf Urine Mucus (None) /hpf Microbiology - Last 24 Hours (Table) 09/25/19 20:10 Urine Culture - Preliminary Urine,Clean Catch Assessment and Plan Plan: UTI, sepsis resolved -C/w Ceftriaxone -F/u cultures -Will DC IVFs Recurrent R sided pleural effusion -Pulm consulted Chronic anemia -At baseline -Likely due to chronic disease -Monitor for now Afib -C/w Xarelto Diastolic CHF -No in acute exacerbation -DC IVFs Hypomagnasemia -Replaced -Will recheck DVT prophylaxis -Xarelto Discussed with: Patient Anticipated discharge date: 09/[address]: Home A total of 35 minutes was spent on the care of this complex patient more than 50% of the time was spent in counseling and care coordination.
[2019-09-26 12:10] LABS: Glucose,Whole Blood 158 mg/dL (75-99)
[2019-09-26] MEDS ORDERED: BISACODYL 5 MG TABLET.DR PO STA (12:18)
[2019-09-26] MEDS: HYDROcodone/APAP 7.5-325MG 1 EACH TAB PO PRN ×2 (16:17→22:50)
[2019-09-26 16:33] LABS: Glucose,Whole Blood 115 mg/dL (75-99)
--- NOTE | 2019-09-26 18:17 | P.PAINCN ---
History of Present Illness - Reason for Consult Consult date: 09/26/19 - History of Present Illness This 58 years old male with a chronic history of severe generalized pain and generalized weakness, patient admitted to [facility] secondary to generalized weakness and fever and chills, and urinary tract infection, and sepsis, patient had chronic pain syndrome and he had generalized pain but mostly in the bilateral knee and left hip, he was getting pain medication from his [facility] Enola 5/325, every 6 hours and also has been on Neurontin 600 mg every morning, the patient reported that his pain level increased significantly and this medication is not helping to control his pain, intensity of the pain preventing him from getting any sleep Past Medical History Past Medical History: Atrial Fibrillation, Asthma, Cancer, Heart Failure, COPD, CVA/TIA, Diabetes Mellitus, Deep Vein Thrombosis (DVT), GERD/Reflux, GI Bleed, Hyperlipidemia, Hypertension, Osteoarthritis (OA), Pneumonia, Pulmonary Embolus (PE), Renal Disease, Respiratory Disorder, Sleep Apnea/CPAP/BIPAP Additional Past Medical History / Comment(s): Pt recently admitted to [facility] on 08/05/19 with acute on chronic CHF/abnormal ECHO-see report/paroxysmal afib/bilateral pleural effusions with R sided thoracentesis. Other hx: Pt denies diabetes stating he has hypoglycemia/pt recently transfered to [facility] for endocrinology consultation-states he wasn't told anything new, states he has bilateral feet neuropathy, colitis, chronic diffuse abdominal pain, chronic generalized pain, fluid retention, bedbound, lower GI bleed, hiatal hernia, DVT in leg which traveled to his lung, DDD, scoliosis, ALEXIS without device, CKD stage III, pseudoseizures with past extensive work up thru [facility], basal cell skin cancer removed from face. History of Any Multi-Drug Resistant Organisms: MRSA Year Discovered:: AUG 2018 MDRO Source:: sputum Past Surgical History: Appendectomy, Bariatric Surgery, Heart Catheterization, Hernia Repair, Joint Replacement, Orthopedic Surgery Additional Past Surgical History / Comment(s): Gastric sleeve in 2014, L inguinal hernia repair, R elbow surgery x2, total R hip arthroplasty, L knee arthroscopy/ACL surgery, R ankle ORIF, EGD, colonoscopy, basal cell skin cancer from face, surgery for varicele. Past Anesthesia/Blood Transfusion Reactions: Previous Problems w/ Anesthesia Additional Past Anesthesia/Blood Transfusion Reaction / Comm: STATES HE WAS TOLD HE WAS A DIFFICULT INTUBATION WITH GASTRIC SLEEVE SURGERY, Past Psychological History: Anxiety, Depression, Panic Disorder, Schizoaffective Disorder Additional Psychological History / Comment(s): Pt resides with his son. states his home care services just stopped 09/06/19 He states he has been bedbound past few months. Pt states he gets paranoid at times. Smoking Status: Former smoker Past Alcohol Use History: None Reported Additional Past Alcohol Use History / Comment(s): STARTED SMOKING AT AGE 15 QUIT SMOKING 1998, smoked 4 cigerettes- 1PPD FORMER ETOH ABUSE. Pt states QUIT 2012 Past Drug Use History: None Reported Additional Drug Use History / Comment(s): PAST HX OF MARIJUANA USE, DENIES USE IN YEARS. - Past Family History Father Family Medical History: Cancer Additional Family Medical History / Comment(s): LUNG CA Mother Family Medical History: Coronary Artery Disease (CAD) Additional Family Medical History / Comment(s): Mother of an infection. Medications and Allergies Home Medications Medication Instructions Recorded Confirmed Type OLANZapine [ZyPREXA] 20 mg PO HS 03/18/19 09/25/19 History Gabapentin [Neurontin] 600 mg PO DAILY 07/14/19 09/25/19 History HYDROcodone/APAP 5-325MG [Enola 1 tab PO Q6H PRN 07/14/19 09/25/19 History 5-325] Rivaroxaban [Xarelto] 20 mg PO DAILY 07/14/19 09/25/19 History DULoxetine HCL [Cymbalta] 40 mg PO DAILY 07/15/19 09/25/19 History Diltiazem HCl 30 mg PO Q6H 07/15/19 09/25/19 History busPIRone HCl [Buspar] 5 mg PO BID 07/15/19 09/25/19 History Albuterol Inhaler [Ventolin Hfa 2 puff INHALATION RT-Q6H PRN 08/03/19 09/25/19 History Inhaler] Aspirin EC [Ecotrin Low Dose] 81 mg PO DAILY 08/03/19 09/25/19 History Atorvastatin [Lipitor] 10 mg PO HS 08/03/19 09/25/19 History Ergocalciferol (Vitamin D2) 50,000 unit PO WE 08/03/19 09/25/19 History [Vitamin D2] Hydrocortisone [Cortef] 10 mg PO BID 08/03/19 09/25/19 History Lidocaine 5% Patch [Lidoderm 5% 1 patch TOPICAL DAILY 08/03/19 09/25/19 History Patch] Melatonin 5 mg PO HS 08/03/19 09/25/19 History Tiotropium 18 Mcg/Puff [Spiriva] 1 puff INHALATION RT-DAILY 08/03/19 09/25/19 History Albuterol Nebulized [Ventolin 2.5 mg INHALATION RT-Q6H PRN 09/07/19 09/25/19 History Nebulized] Furosemide [Lasix] 60 mg PO BID #60 tab 09/13/19 09/25/19 Rx Potassium Chloride ER [K-Dur 20] 20 meq PO TID 09/18/19 09/25/19 History Allergies Allergy/AdvReac Type Severity Reaction Status Date / Time codeine Allergy Severe Swelling Verified 09/25/19 19:21 OF THROAT WITH COUGH SYRUP chlorpheniramine Allergy Unknown Verified 09/25/19 19:21 febuxostat [From Uloric] Allergy Unknown Verified 09/25/19 19:21 phenylephrine Allergy Unknown Verified 09/25/19 19:21 piperacillin sodium Allergy Unknown Verified 09/25/19 19:21 [From Zosyn] tazobactam sodium Allergy Unknown Verified 09/25/19 19:21 [From Zosyn] Physical Exam Vitals: Vital Signs Temp Pulse Pulse Resp BP BP Pulse Ox 09/26/19 16:35 72 09/26/19 16:25 76 09/26/19 12:35 68 09/26/19 12:24 68 09/26/19 11:18 96.7 F L 67 18 110/57 09/26/19 09:06 72 09/26/19 08:50 68 09/26/19 08:14 97.4 F L 71 18 105/58 95 09/26/19 05:55 97.0 F L 71 16 127/59 95 09/26/19 00:30 97.0 F L 77 16 126/56 96 09/25/19 23:56 98.1 F 74 20 123/70 98 09/25/19 22:08 88 18 124/75 94 L 09/25/19 20:25 20 97 09/25/19 19:07 20 09/25/19 18:58 101.1 F H 105 H 18 122/70 93 L Intake and Output 09/26/19 09/26/19 09/26/19 06:59 14:59 22:59 Intake Total 1650 Balance 1650 Intake: Amount of Fluid Infused ( 1000 ml) Intake, IV Titration 650 Amount Sodium Chloride 0.9% 1, 650 000 ml @ 130 mls/hr IV . Q7H42M [facility] Rx#:[id number] Other: Voiding Method Urinal Urinal Urinal Physical Examinations : -Constitutiona : Cooperative , not in acute distress . -HEENT : nech : supple , no Lymphadenopathy , normal thyroid size . eyes : no ptosis , no icterus, no photophobia . - Respiratory : Decreased breath sounds in the right lower lung , no wheezing , no Rhonchi . - Cardiovascula : regular rate and rhythem , S1 , S2 . - Gastrointestina : abdomen soft no tenderness , bowel sounds , no organomegally . - Genitourinary : Defferred . - neurologic : Cranial nerve II to XII intact , no focal neurological deffecit . -psychatric : alert , oriented X 3 , appropriate affect , intact judgment and insight . -Lymphatic : 2+ edema in the lower extremity . - musculoskeltal : Lumber spine moter stegnth lower extremities ,thigh and legs 2/5 Right side , 2/5 Left side Results CBC & Chem 7: 09/26/19 09:00 09/26/19 09:00 Labs: Abnormal Lab Results - Last 24 Hours (Table) 09/25/19 09/25/19 09/25/19 Range/Units 19:10 19:10 19:10 WBC 20.8 H (3.8-10.6) k/uL RBC 4.05 L (4.30-5.90) m/uL Hgb 11.5 L (13.0-17.5) gm/dL Hct 34.6 L (39.0-53.0) % Neutrophils # 18.7 H (1.3-7.7) k/uL Lymphocytes # 0.7 L (1.0-4.8) k/uL APTT 35.4 H (22.0-30.0) sec Sodium 133 L (137-145) mmol/L Chloride 90 L (98-107) mmol/L Carbon Dioxide 38 H (22-30) mmol/L BUN (9-20) mg/dL Glucose 126 H (74-99) mg/dL POC Glucose (mg/dL) (75-99) mg/dL Plasma Lactic Acid Benjie (0.7-2.0) mmol/L Magnesium 1.2 L (1.6-2.3) mg/dL Creatine Kinase <20 L (55-170) U/L Total Protein 6.2 L (6.3-8.2) g/dL Urine Protein (Negative) Urine Blood (Negative) Ur Leukocyte Esterase (Negative) Urine RBC (0-5) /hpf Urine WBC (0-5) /hpf Urine Mucus (None) /hpf 09/25/19 09/25/19 09/26/19 Range/Units 20:10 21:45 01:14 WBC (3.8-10.6) k/uL RBC (4.30-5.90) m/uL Hgb (13.0-17.5) gm/dL Hct (39.0-53.0) % Neutrophils # (1.3-7.7) k/uL Lymphocytes # (1.0-4.8) k/uL APTT (22.0-30.0) sec Sodium (137-145) mmol/L Chloride (98-107) mmol/L Carbon Dioxide (22-30) mmol/L BUN (9-20) mg/dL Glucose (74-99) mg/dL POC Glucose (mg/dL) (75-99) mg/dL Plasma Lactic Acid Benjie 0.5 L 0.6 L (0.7-2.0) mmol/L Magnesium (1.6-2.3) mg/dL Creatine Kinase (55-170) U/L Total Protein (6.3-8.2) g/dL Urine Protein Trace H (Negative) Urine Blood Trace H (Negative) Ur Leukocyte Esterase Large H (Negative) Urine RBC 14 H (0-5) /hpf Urine WBC 78 H (0-5) /hpf Urine Mucus Rare H (None) /hpf 09/26/19 09/26/19 09/26/19 Range/Units 07:30 09:00 09:00 WBC 17.5 H (3.8-10.6) k/uL RBC 3.69 L (4.30-5.90) m/uL Hgb 10.3 L (13.0-17.5) gm/dL Hct 32.4 L (39.0-53.0) % Neutrophils # (1.3-7.7) k/uL Lymphocytes # (1.0-4.8) k/uL APTT (22.0-30.0) sec Sodium 136 L (137-145) mmol/L Chloride 93 L (98-107) mmol/L Carbon Dioxide 40 H (22-30) mmol/L BUN 23 H (9-20) mg/dL Glucose 117 H (74-99) mg/dL POC Glucose (mg/dL) 131 H (75-99) mg/dL Plasma Lactic Acid Benjie (0.7-2.0) mmol/L Magnesium (1.6-2.3) mg/dL Creatine Kinase (55-170) U/L Total Protein (6.3-8.2) g/dL Urine Protein (Negative) Urine Blood (Negative) Ur Leukocyte Esterase (Negative) Urine RBC (0-5) /hpf Urine WBC (0-5) /hpf Urine Mucus (None) /hpf 09/26/19 09/26/19 09/26/19 Range/Units 09:00 12:09 16:31 WBC (3.8-10.6) k/uL RBC (4.30-5.90) m/uL Hgb (13.0-17.5) gm/dL Hct (39.0-53.0) % Neutrophils # (1.3-7.7) k/uL Lymphocytes # (1.0-4.8) k/uL APTT (22.0-30.0) sec Sodium (137-145) mmol/L Chloride (98-107) mmol/L Carbon Dioxide (22-30) mmol/L BUN (9-20) mg/dL Glucose (74-99) mg/dL POC Glucose (mg/dL) 158 H 115 H (75-99) mg/dL Plasma Lactic Acid Benjie (0.7-2.0) mmol/L Magnesium 1.4 L (1.6-2.3) mg/dL Creatine Kinase (55-170) U/L Total Protein (6.3-8.2) g/dL Urine Protein (Negative) Urine Blood (Negative) Ur Leukocyte Esterase (Negative) Urine RBC (0-5) /hpf Urine WBC (0-5) /hpf Urine Mucus (None) /hpf Microbiology - Last 24 Hours (Table) 09/25/19 20:10 Urine Culture - Preliminary Urine,Clean Catch Assessment and Plan Plan: Assessment and plan= chronic pain syndrome secondary to osteoarthritis of the knee and hip, patient admitted to [facility] secondary to urinary tract infection and sepsis, and the patient complaining of generalized pain and it's not controlled with the current medication, I recommend to increase to change Enola to 7.5/325 every 6 hours, changing Neurontin to 400 mg twice a day(to 600 mg every morning ) PQRS Measure Charge Sheet PQRS Narrative: Smoking Status Former smoker Do You Want the Pneumonia Vaccine Up to Date Vaccine AT THIS TIME? Blood Pressure [Left Arm] 110/57 Blood Pressure 123/70 Pain Intensity [Generalized] 7 Pain Intensity 7 Pain Scale Used Numeric (1 - 10) Scale Used Numeric (1 - 10) Home Medications: Ambulatory Orders OLANZapine [ZyPREXA] 20 mg PO HS 03/18/19 Gabapentin [Neurontin] 600 mg PO DAILY 07/14/19 HYDROcodone/APAP 5-325MG [Enola 5-325] 1 tab PO Q6H PRN 07/14/19 Rivaroxaban [Xarelto] 20 mg PO DAILY 07/14/19 DULoxetine HCL [Cymbalta] 40 mg PO DAILY 07/15/19 Diltiazem HCl 30 mg PO Q6H 07/15/19 busPIRone HCl [Buspar] 5 mg PO BID 07/15/19 Albuterol Inhaler [Ventolin Hfa Inhaler] 2 puff INHALATION RT-Q6H PRN 08/03/19 Aspirin EC [Ecotrin Low Dose] 81 mg PO DAILY 08/03/19 Atorvastatin [Lipitor] 10 mg PO HS 08/03/19 Ergocalciferol (Vitamin D2) [Vitamin D2] 50,000 unit PO WE 08/03/19 Hydrocortisone [Cortef] 10 mg PO BID 08/03/19 Lidocaine 5% Patch [Lidoderm 5% Patch] 1 patch TOPICAL DAILY 08/03/19 Melatonin 5 mg PO HS 08/03/19 Tiotropium 18 Mcg/Puff [Spiriva] 1 puff INHALATION RT-DAILY 08/03/19 Albuterol Nebulized [Ventolin Nebulized] 2.5 mg INHALATION RT-Q6H PRN 09/07/19 Furosemide [Lasix] 60 mg PO BID #60 tab 09/13/19 Potassium Chloride ER [K-Dur 20] 20 meq PO TID 09/18/19
--- NOTE | 2019-09-26 20:25 | CONS ---
CONSULTATION PULMONARY/CRITICAL CARE CONSULTATION: DATE OF SERVICE: 09/26/2019 This is another admission for this 58-year-old gentleman whom I saw in earlier August and my partner saw in mid to late August. He has a history of multiple medical problems, including chronic right-sided pleural effusion, status post drainage x2 by my partner and attempted drainage x1 by Interventional Radiology, chronic atrial fibrillation, COPD, general medical debility with very limited mobility and ambulation, skin cancer, heart failure, CVA, diabetes, deep vein thrombosis/pulmonary embolism, GERD, GI bleed, hyperlipidemia, hypertension, DJD, sleep apnea syndrome, and a whole slew of other major medical problems. He came into the hospital on September 25 complaining of a number of different things, including possible fever and infection. He is concerned about a bladder infection. In addition, he apparently had some chest pain and was complaining about being short of breath and feeling like his lungs were being filled up with fluid again. The patient is pretty much bed-bound and very limited in his ability to do anything. Anyway, the patient does not appear to be in any distress, and was hoping to be able to be discharged home if there was no obvious source of infection. His chest x-ray when I look at it does not look much different from a prior x-ray. It does not appear to show any additional fluids from before. I believe the last time he was drained by my partner was in late August, and 950 mL was removed. I have also asked Cardiothoracic in the past about a Pleur-X catheter in place. They did not want to do that procedure at this time. HOME MEDICATIONS: His home medications are rather extensive and include: 1. Zyprexa. 2. Neurontin. 3. Rugby. 4. Xarelto. 5. Cymbalta. 6. Diltiazem. 7. BuSpar. 8. Ventolin HFA inhaler. 9. Low-dose aspirin. 10.Lipitor. 11.Vitamin D2. 12.Cortef. 13.Lidoderm patch. 14.Melatonin. 15.Spiriva. 16.Albuterol updrafts. 17.Potassium chloride. 18.Lasix. ALLERGIES: ALLERGIES ARE ALSO NUMEROUS and include: 1. CODEINE. 2. CHLORPHENIRAMINE. 3. ULORIC. 4. PHENYLEPHRINE. 5. ZOSYN. PAST MEDICAL HISTORY: Past medical history is positive for: 1. Atrial fibrillation. 2. Chronic bronchial asthma. 3. Right-sided pleural effusion. 4. Heart failure. 5. COPD. 6. CVA. 7. Diabetes mellitus. 8. Deep venous thrombosis. 9. Pulmonary embolism. 10.GERD. 11.GI bleed. 12.Hyperlipidemia. 13.Hypertension. 14.DJD. 15.Pneumonia. 16.Sleep apnea syndrome. Additional medical problems include: 1. Colitis. 2. Lower extremity neuropathy from his diabetes. 3. Diffuse generalized abdominal pain. 4. Significant lower extremity edema and anasarca. 5. Hiatal hernia. 6. Degenerative disk disease. 7. Pseudoseizures. SURGICAL HISTORY: Surgical history includes, among other things: 1. Appendectomy. 2. Bariatric surgery. 3. Heart catheterization. 4. Hernia repair. 5. Joint replacement. 6. Various orthopedic procedures. 7. Left inguinal hernia repair. 8. Right elbow surgery. 9. Right hip arthroplasty. 10.Left knee arthroplasty. 11.Surgery for an anterior collateral ligament tear. 12.ORIF right ankle. 13.EGD. 14.Colonoscopy. 15.Skin cancer surgery. 16.Varicocele surgery. He also apparently suffers from anxiety, depression, panic disorder and schizoaffective disorder. SOCIAL HISTORY: Positive for previous tobacco use. He denies any alcohol or illicit drug use. FAMILY HISTORY: Positive for father with lung cancer and mother with CAD. REVIEW OF SYSTEMS: CONSTITUTIONAL: Weakness and fever. NEUROLOGIC: Negative. HEENT: Negative. CARDIOVASCULAR: Negative. PULMONARY: Mild shortness of breath. GI: Negative. : Negative. RHEUMATOLOGIC: Negative. IMMUNOLOGIC: Negative. ENDOCRINOLOGIC: Negative. DERMATOLOGIC: Negative. PHYSICAL EXAMINATION: VITAL SIGNS: Current vital signs are reviewed. Temperature is 96.7, heart rate 68, respiratory rate 18, blood pressure 110/57, 3-liter saturation 96%. GENERAL APPEARANCE: Appears in no acute distress. Certainly no respiratory distress. Lying flat in bed. No use of accessory muscles, conversational dyspnea or audible wheezing noted. HEENT: HEENT examination is grossly unremarkable. Nasal oxygen in place at 3 L. NECK: Supple. Full range of motion. No adenopathy or thyromegaly. Neck veins are flat. CARDIOVASCULAR: Cardiovascular examination reveals regular rhythm and rate. Heart rate 68 beats per minute. S1, S2 normal. Heart sounds are distant. No distinct murmur noted. LUNGS: Lungs reveal diminished breath sounds at the right base. A few scattered rhonchi noted bilaterally. No wheezes. No crackles. ABDOMEN: Obese. Bowel sounds are heard. EXTREMITIES: Intact. There is mild edema. SKIN: Skin is without rash. NEUROLOGIC: Neurologic examination is normal save for profound lower extremity weakness. Microbiologic studies are negative. LABS: Reviewed. White count 17.5, hemoglobin 10.3, hematocrit 32.4, platelet count normal. Sodium 136, potassium 4.1, chloride 93, CO2 40. Anion gap is 3. BUN and creatinine were 23 and 0.83. The rest of the labs look okay. His urine is yellow and cloudy. There is trace protein, trace blood, large leukocyte esterase, 14 RBCs, 78 WBCs, and urine mucus was rare. Influenza studies were negative. IMAGING: Chest x-ray done on 09/25 shows a moderate-sized right pleural effusion which is unchanged from previous x-rays. No heart failure seen. ASSESSMENT: 1. Rule out urinary tract infection/mild urosepsis. 2. Chronic right-sided pleural effusion, status post drainage x2 by my partner and once by Interventional Radiology. 3. History of atrial fibrillation. 4. History of chronic obstructive pulmonary disease/asthma. 5. History of skin cancer. 6. History of heart failure. 7. History of cerebrovascular accident. 8. History of diabetes mellitus. 9. History of deep venous thrombosis/pulmonary embolism. 10.History of gastroesophageal reflux disease. 11.History of gastrointestinal bleed. 12.History of hyperlipidemia. 13.History of hypertension. 14.History of degenerative joint disease. 15.History of sleep apnea, currently on CPAP. PLAN: Currently the patient seems to be doing relatively well. Will continue to follow. Prognosis is guarded. He believes that his source of infection is his urine. Currently, medication-ortega, he is on Rocephin for a possible urinary tract infection. All the other medications are appropriate. Will continue to follow. Prognosis is guarded. The patient has multiple admissions to the hospital. No indication we will need to do thoracentesis at this time. Previous thoracentesis evaluated by flow cytometry was negative for lymphoproliferative disorder/lymphoma. MMODL / IJN: [id number] /
[2019-09-26 21:12] LABS: Glucose,Whole Blood 150 mg/dL (75-99)
[2019-09-26] MEDS: ATORVASTATIN 10 MG TAB PO SCH (21:37)
[2019-09-26] MEDS: GABAPENTIN 400 MG CAP PO SCH (21:38)
[2019-09-27] MEDS: HYDROCORTISONE SUCCINATE 100 MG/2 ML VIAL IV SCH ×3 (01:25→17:57)
[2019-09-27] MEDS: KETOROLAC 30 MG/ML 1 ML VIAL IVP SCH ×3 (06:02→17:56)
[2019-09-27 07:09] LABS: Glucose,Whole Blood 127 mg/dL (75-99)
[2019-09-27] MEDS: INSULIN ASPART (NovoLOG) 100 UNIT/ML VIAL SQ SCH ×4 (07:55→20:37)
[2019-09-27] MEDS: DILTIAZEM ORAL 30 MG TAB PO SCH ×4 (08:01→17:56)
[2019-09-27] MEDS: HYDROcodone/APAP 7.5-325MG 1 EACH TAB PO PRN ×3 (08:01→22:07)
[2019-09-27] MEDS: GABAPENTIN 400 MG CAP PO SCH ×2 (08:02→20:45)
[2019-09-27] MEDS: RIVAROXABAN 20 MG TAB PO SCH (08:02)
[2019-09-27] MEDS: ASPIRIN 81 MG PO SCH (08:02)
[2019-09-27] MEDS: busPIRone HCl 5 MG TAB PO SCH ×2 (08:02→20:45)
[2019-09-27] MEDS: PANTOPRAZOLE 40 MG TABLET PO SCH (08:02)
[2019-09-27] MEDS: DULoxetine HCL 20 MG CAPSULE.DR PO SCH (08:02)
[2019-09-27] MEDS ORDERED: ERGOCALCIFEROL 50,000 UNIT CAP PO SCH (09:00)
[2019-09-27] MEDS: IPRATROPIUM 0.5 MG/2.5 ML NEBU INHALATION SCH ×4 (09:33→21:22)
[2019-09-27 11:30] LABS: Glucose,Whole Blood 124 mg/dL (75-99)
--- NOTE | 2019-09-27 12:06 | P.PN ---
Subjective Progress Note Date: 09/27/19 Principal diagnosis: Urinary tract infection. The patient is seen today 09/27/2019 in follow-up on the regular medical floor. He is awake and alert in no acute distress. He was found to have a urinary tract infection the contrary to gram-negative bacilli. Blood cultures reveal no growth. No worsening shortness of breath, cough or congestion. Maintaining O2 saturations in the 90s on 2 L/m per nasal cannula. Currently on ceftriaxone. Objective - Vital Signs Vital signs: Vital Signs Temp 97.5 F L 09/27/19 04:53 Pulse 72 09/27/19 09:46 Resp 16 09/27/19 04:53 BP 104/59 09/27/19 04:53 Pulse Ox 92 L 09/27/19 04:53 Intake & Output 09/26/19 09/27/19 09/27/19 18:59 06:59 18:59 Intake Total 580 Output Total 600 1300 Balance -600 -720 Intake: Intake, IV Titration 100 Amount cefTRIAXone 1 gm In 100 Sodium Chloride 0.9% 50 ml @ 100 mls/hr IVPB Q24H [facility] Rx#:[id number] Oral 480 Output: Urine 600 1300 Other: Voiding Method Urinal Urinal Urinal # Voids 1 - Exam GENERAL: This is a 58-year-old male in no apparent distress. Morbidly obese. The patient has a BMI 47.4 Head exam was generally normal. There was no scleral icterus or corneal arcus. Mucous membranes were moist. Neck was supple and without jugular venous distension, thyromegaly, or carotid bruits. Carotids were easily palpable bilaterally. There was no adenopathy. LUNGS: Breath sounds are diminished in the right lung base. HEART: Regular rate and rhythm without murmurs, rubs or gallops. S1 and S2 heard. ABDOMEN: Soft, nontender. Bowel sounds are heard. No organomegaly noted. EXTREMITIES: Bilateral lower extremity circumferential nonpitting edema. No calf tenderness noted. VASCULAR: Radial and dorsalis pedis pulses palpated, no evidence of clubbing. NEUROLOGIC: Patient is awake, alert and oriented x3. Motor weakness is obvious in lower extremities bilaterally. Skeletal examination the patient has scars of previous surgery and chronic contractures in lower extremities bilaterally. - Labs CBC & Chem 7: 09/26/19 09:00 09/26/19 09:00 Labs: Abnormal Lab Results - Last 24 Hours (Table) 09/26/19 09/26/19 09/26/19 Range/Units 09:00 12:09 16:31 POC Glucose (mg/dL) 158 H 115 H (75-99) mg/dL Magnesium 1.4 L (1.6-2.3) mg/dL 09/26/19 09/27/19 09/27/19 Range/Units 21:04 07:08 11:29 POC Glucose (mg/dL) 150 H 127 H 124 H (75-99) mg/dL Magnesium (1.6-2.3) mg/dL Microbiology - Last 24 Hours (Table) 09/26/19 01:14 Blood Culture - Preliminary Blood No Growth after 24 hours 09/26/19 01:34 Blood Culture - Preliminary Blood No Growth after 24 hours 09/25/19 20:10 Urine Culture - Preliminary Urine,Clean Catch Gram Neg Bacilli 09/25/19 19:10 Blood Culture - Preliminary Blood No Growth after 24 hours Assessment and Plan Assessment: Impression: #1. Acute urinary tract infection secondary to gram-negative bacilli. Currently on ceftriaxone. #2. Previous hospitalization for right-sided pleural effusion with previous thoracentesis, cytology negative. #3. Morbid obesity #4. Obstructive sleep apnea #5. History of DVT and pulmonary embolism on Xarelto #6. Paroxysmal atrial fibrillation #7. Diabetes type II #8. COPD #9. Hyperlipidemia #10. Osteoarthritis/scoliosis of the spine, chronic difficulties with mobility related to morbid obesity and multiple orthopedic surgeries #11. Previous history of C. diff colitis #12. Gait dysfunction, he is bedridden on a regular basis #13. Generalized weakness #14. Chronic pain #15. History of depression/bipolar disorder Plan: The patient was seen and evaluated by Dr. Rondon. He is stable from the pulmonary standpoint. Cleared for discharge once cleared by medicine. We'll see him on an as-needed basis. I, the cosigning physician, performed a history & physical examination of the patient. Lungs sounds diminished right lung base. Maintaining good O2 satu rations in the 90s on 2 L/m per nasal cannula. I discussed the assessment and plan of care with my nurse practitioner, Goldie Guardado. I attest to the above note as dictated by her.
[2019-09-27 13:10] LABS: Hypochromasia Slight; MCH 28.5 pg (25.0-35.0); MCHC 32.2 g/dL (31.0-37.0); MCV 88.8 fL (80.0-100.0); Mean Platelet Volume 7.3; Platelet Count 290 k/uL (150-450); RBC 3.49 m/uL (4.30-5.90); RDW 14.4 % (11.5-15.5); WBC 11.8 k/uL (3.8-10.6)
[2019-09-27 14:55] VITALS: BMI 47.4
--- NOTE | 2019-09-27 16:25 | P.PN ---
Subjective Progress Note Date: 09/27/19 Patient is a 58-year-old male with a extensive past medical history including A. fib (on Xarelto), chronic debility (bedbound at baseline), recurrent right-sided pleural effusions, chronic diastolic CHF, asthma, diabetes mellitus, hypertension, hyperlipidemia, and history of pulmonary embolus and DVT with multiple hospitalizations presented to the hospital w/ complaints of feeling weak, with fever, chills, and urinary complaints including urgency, frequency, and incomplete emptying. Patient also reported a 6 out of 10 lower abdominal pain nonradiating. The patient was noted to have sepsis secondary to UTI in the emergency room and was admitted for further management. He was started on IV Ceftriaxone with urine and blood cultures sent. Patient was seen and examined at the bedside on 09/27. He reported significantly improved abdominal pain and urinary symptoms. He denied any additional complaints. Denied chest pain, SOB, nausea, vomiting, fever, or chills. Objective - Vital Signs Vital signs: Vital Signs Temp 97.2 F L 09/27/19 11:30 Pulse 72 09/27/19 12:42 Resp 17 09/27/19 11:30 BP 118/67 09/27/19 11:30 Pulse Ox 92 L 09/27/19 11:30 Intake & Output 09/26/19 09/27/19 09/27/19 18:59 06:59 18:59 Intake Total 580 Output Total 600 1300 Balance -600 -720 Weight 181.437 kg Intake: Intake, IV Titration 100 Amount cefTRIAXone 1 gm In 100 Sodium Chloride 0.9% 50 ml @ 100 mls/hr IVPB Q24H [facility] Rx#:[id number] Oral 480 Output: Urine 600 1300 Other: Voiding Method Urinal Urinal Urinal # Voids 1 3 - Exam General: Non-toxic, in no acute distress, appears older than stated age, morbidly obese HEENT: NC/AT, anicteric sclerae, moist conjunctiva, no lid-lag, PERRLA, very poor dentition Cardiovascular: S1/S2 wnl, no murmurs, rubs, or gallops Lungs: Scattered ronchi, no rales, no accessory muscle use Abdominal: Soft, non-tender, non-distended, no guarding, rebound, or rigidity Skin: Warm, dry Extremities: CHAYO 1+ edema, no contractures Psychiatric: Alert and oriented to person, place and time, appropriate affect Neuro: CN II-XII grossly intact, Strength 4/5 in all chayo LE extremities, Speech intact, Sensation to light touch grossly intact throughout - Labs CBC & Chem 7: 09/27/19 07:48 09/26/19 09:00 Labs: Abnormal Lab Results - Last 24 Hours (Table) 09/26/19 09/26/19 09/27/19 Range/Units 16:31 21:04 07:08 WBC (3.8-10.6) k/uL RBC (4.30-5.90) m/uL Hgb (13.0-17.5) gm/dL Hct (39.0-53.0) % POC Glucose (mg/dL) 115 H 150 H 127 H (75-99) mg/dL 09/27/19 09/27/19 Range/Units 07:48 11:29 WBC 11.8 H (3.8-10.6) k/uL RBC 3.49 L (4.30-5.90) m/uL Hgb 10.0 L (13.0-17.5) gm/dL Hct 31.0 L (39.0-53.0) % POC Glucose (mg/dL) 124 H (75-99) mg/dL Microbiology - Last 24 Hours (Table) 09/26/19 01:14 Blood Culture - Preliminary Blood No Growth after 24 hours 09/26/19 01:34 Blood Culture - Preliminary Blood No Growth after 24 hours 09/25/19 20:10 Urine Culture - Preliminary Urine,Clean Catch Gram Neg Bacilli 09/25/19 19:10 Blood Culture - Preliminary Blood No Growth after 24 hours Assessment and Plan Plan: UTI, sepsis resolved -C/w Ceftriaxone -F/u cultures -Will DC IVFs -Leukocytosis significantly improved Recurrent R sided pleural effusion -Pulm consulted, on intervention planned -patient will need outpatient f/u Chronic anemia -At baseline -Likely due to chronic disease -Monitor for now Afib -C/w Xarelto Diastolic CHF -No in acute exacerbation Hypomagnasemia, resolved DVT prophylaxis -Xarelto Discussed with: Patient Anticipated discharge date: 09/[address]: Home A total of 35 minutes was spent on the care of this complex patient more than 50% of the time was spent in counseling and care coordination.
[2019-09-27 17:25] LABS: Glucose,Whole Blood 98 mg/dL (75-99)
[2019-09-27] MEDS ORDERED: BISACODYL 5 MG TABLET.DR PO STA (18:10)
[2019-09-27 20:11] VITALS: RESP 16
[2019-09-27 20:21] LABS: Glucose,Whole Blood 130 mg/dL (75-99)
[2019-09-27] MEDS: MELATONIN 5 MG TABLET PO SCH (20:45)
[2019-09-27] MEDS: ATORVASTATIN 10 MG TAB PO SCH (20:45)
[2019-09-27] MEDS: OLANZapine 10 MG TAB PO SCH (20:46)
[2019-09-28] MEDS: KETOROLAC 30 MG/ML 1 ML VIAL IVP SCH ×2 (00:24→04:56)
[2019-09-28] MEDS: DILTIAZEM ORAL 30 MG TAB PO SCH ×3 (00:24→13:24)
[2019-09-28] MEDS: HYDROCORTISONE SUCCINATE 100 MG/2 ML VIAL IV SCH ×2 (02:35→10:04)
[2019-09-28] MEDS: HYDROcodone/APAP 7.5-325MG 1 EACH TAB PO PRN ×2 (04:01→13:26)
[2019-09-28 04:03] LABS: Glucose,Whole Blood 101 mg/dL (75-99)
[2019-09-28 04:20] LABS: Appearance,Urine Cloudy (Clear); Bilirubin,Urine Negative (Negative); Blood,Urine Large (Negative); Color,Urine Light Red; Glucose,Urine (UA) Negative (Negative); Ketones,Urine Negative (Negative); Leukocyte Esterase,Urine Large (Negative); Mucus,Urine Rare /hpf; Nitrite,Urine Negative (Negative); Protein,Urine Trace (Negative); RBC,Urine >182 /hpf (0-5); Urobilinogen,Urine <2.0 mg/dL (<2.0); WBC,Urine 69 /hpf (0-5)
[2019-09-28 05:29] VITALS: BP 129/68; TEMP 97.5
[2019-09-28 07:15] LABS: Glucose,Whole Blood 88 mg/dL (75-99)
[2019-09-28 07:41] LABS: Basophils # (A) 0.1 k/uL (0-0.2); Basophils % (A) 1 %; Eosinophils # (A) 0.2 k/uL (0-0.7); Eosinophils % (A) 2 %; HCT 33.2 % (39.0-53.0); HGB 10.3 gm/dL (13.0-17.5); Lymphocytes # (A) 1.3 k/uL (1.0-4.8); Lymphocytes % (A) 15 %; MCHC 31.1 g/dL (31.0-37.0); MCV 86.9 fL (80.0-100.0); Mean Platelet Volume 6.5; Monocytes # (A) 0.5 k/uL (0-1.0); Monocytes % (A) 6 %; Neutrophils # (A) 6.2 k/uL (1.3-7.7); Neutrophils % (A) 74 %; Platelet Count 327 k/uL (150-450); RBC 3.82 m/uL (4.30-5.90); RDW 14.2 % (11.5-15.5); WBC 8.3 k/uL (3.8-10.6)
[2019-09-28 07:59] LABS: African American GFR (CKD) >90 (>60 ml/min/1.73 sqM); Anion Gap 4 mmol/L; Blood Urea Nitrogen 21 mg/dL (9-20); Calcium 9.3 mg/dL (8.4-10.2); Carbon Dioxide 38 mmol/L (22-30); Chloride 93 mmol/L (98-107); Glucose 87 mg/dL (74-99); Potassium 3.6 mmol/L (3.5-5.1); Sodium 135 mmol/L (137-145)
[2019-09-28] MEDS: INSULIN ASPART (NovoLOG) 100 UNIT/ML VIAL SQ SCH ×2 (08:09→13:24)
[2019-09-28] MEDS: PANTOPRAZOLE 40 MG TABLET PO SCH (08:19)
[2019-09-28] MEDS: ASPIRIN 81 MG PO SCH (08:19)
[2019-09-28] MEDS: busPIRone HCl 5 MG TAB PO SCH (08:19)
[2019-09-28] MEDS: DULoxetine HCL 20 MG CAPSULE.DR PO SCH (08:19)
[2019-09-28] MEDS: GABAPENTIN 400 MG CAP PO SCH (08:19)
[2019-09-28] MEDS: RIVAROXABAN 20 MG TAB PO SCH (08:20)
[2019-09-28] MEDS: IPRATROPIUM 0.5 MG/2.5 ML NEBU INHALATION SCH ×2 (08:34→12:22)
[2019-09-28] MEDS ORDERED: CIPROFLOXACIN HCL 250 MG TAB PO SCH (10:30)
[2019-09-28 11:19] LABS: Glucose,Whole Blood 69 mg/dL (75-99)
[2019-09-28 11:32] LABS: Glucose,Whole Blood 60 mg/dL (75-99)
[2019-09-28 11:51] LABS: Glucose,Whole Blood 53 mg/dL (75-99)
[2019-09-28 11:57] LABS: Glucose,Whole Blood 69 mg/dL (75-99)
[2019-09-28 12:05] LABS: Glucose,Whole Blood 86 mg/dL (75-99)
[2019-09-28 12:44] VITALS: PULSE 72
[2019-09-28 13:33] LABS: Glucose,Whole Blood 127 mg/dL (75-99)
--- NOTE | 2019-09-29 18:08 | P.DS ---
Providers Date of admission: 09/26/19 15:22 Expected date of discharge: 09/28/19 Attending physician: Roge Bashir Consults: 09/26/19 00:37 Consult Physician Routine Consulting Provider: Jose Landaverde Consult Reason/Comments: pain management Do you want consulting provider notified?: Yes, Notify in am 09/26/19 00:38 Consult Physician Routine Consulting Provider: Ynes Hendrickson Consult Reason/Comments: right pleural effusion Do you want consulting provider notified?: Yes, Notify in am Primary care physician: [facility] Hospital Course: Chief Complaint: Right chest sharp pain Hospital course: This is a 58-year-old patient who follows with visiting physician Dr. Antelmo Steele. Patient has a rather extensive medical history. Patient presented increasing shortness of breath . Patient has not really walked since January of this year. Has a hospital bed at home. Chronic stable medical conditions include Diastolic CHF, paroxysmal atrial fibrillation, pseudoseizures with extensive work up including continuous EEG monitoring done at [facility] recently, morbid obesity, sleeve gastrectomy, COPD, diabetes mellitus,, bipolar disorder. Patient recently positive for C. diff.That failed vancomycin taper and was treated with Dificid. Patient also has bilateral pleural effusion on the large one on the right. In the beginning of July, thoracentesis was done. Subsequent attempted thoracentesis more recently. Patient was then admitted to the hospital on September 08 and discharged on September 13. Treated for CHF exacerbation treated with IV Lasix. Thoracentesis on the right side was again carried out and Dr. Hendrickson and the cytology came back to be negative. The fluid was a exudate. This admission presented with not feeling well low-grade fever and suprapubic discomfort and some urinary symptoms. Patient is found to UTI and cystitis. Cultures were positive for Pseudomonas. Doing much better by the time of discharge. Afebrile, eating well. Patient was seen by Dr. Landaverde. From pain management. He has been following up for his pain medications. Also seen by Dr. Ruiz from pulmonary. No acute issues. Day of discharge care was discussed with patient at length. Also spoke to the animal shelter supervisor Corby Bass of [employer]. Asked him to look in different avenues including helping the patient get possibly assistance for transport to his appointments and possibly getting [facility] to a [facility] facility. He will coordinate the same. Patient's had multiple admissions in the hospital recently because of transportation issues. Discussion and discharge planning more than 35 minutes Consultation: Dr. Ruiz from pulmonary Dr. Landaverde from pain management Physical examination: VITAL SIGNS: 97.5, 69, 16, 129/68, 96% on 2 L GENERAL: BMI 47. 4, laying in bed comfortable EYES: Pupils equal. Conjunctiva normal. HEENT: External appearance of nose and ears normal, oral cavity grossly normal. NECK: Neck is short and thick, JVD unable to assess, mass not palpable. HEART: Heart sounds are distant, edema minimal LUNGS: Respiratory rate normal diminished breath sounds. ABDOMEN: Soft, nontender, liver spleen not palpable, no masses palpable. PSYCH: AO 3, motor affect normal NEUROLOGICAL: Cranial nerves grossly intact; no facial asymmetry, decreased power in both lower extremity. INVESTIGATIONS, reviewed in the clinical context: White count 8.3 hemoglobin 10.3 platelets 327 potassium 3.6 creatinine 0.83 Urine culture-Pseudomonas aeruginosa. Blood cultures negative Chest x-ray film showing right-sided moderate pleural effusion unchanged discharge diagnosis: -Acute UTI from cystitis from pseudomonas aeruginosa -Chronic congestive heart failure from diastolic dysfunction EF 55-60% -Chronic right-sided pleural effusion with thoracentesis 3. Likely a transudate but chronically has become an exudate. Negative for cytology. likely from underlying CHF -Hypertensive heart disease -Paroxysmal atrial fibrillation currently in sinus rhythm, chronically on Xarelto -psuedo-seizures with extensive workup at [facility] in the past -Morbid obesity BMI 45.4 -Diabetes mellitus type 2 -Bipolar disorder -Medical debility disposition: Home Patient Condition at Discharge: Stable Plan - Discharge Summary Discharge Rx Participant: Yes New Discharge Prescriptions: New Ciprofloxacin HCl [Cipro] 500 mg PO Q12H 3 Days #10 tab Furosemide [Lasix] 40 mg PO BID #60 tablet Continue OLANZapine [ZyPREXA] 20 mg PO HS Rivaroxaban [Xarelto] 20 mg PO DAILY HYDROcodone/APAP 5-325MG [[place] 5-325] 1 tab PO Q6H PRN PRN Reason: Pain Gabapentin [Neurontin] 600 mg PO DAILY busPIRone HCl [Buspar] 5 mg PO BID Diltiazem HCl 30 mg PO Q6H DULoxetine HCL [Cymbalta] 40 mg PO DAILY Atorvastatin [Lipitor] 10 mg PO HS Ergocalciferol (Vitamin D2) [Vitamin D2] 50,000 unit PO WE Lidocaine 5% Patch [Lidoderm 5% Patch] 1 patch TOPICAL DAILY Hydrocortisone [Cortef] 10 mg PO BID Albuterol Inhaler [Ventolin Hfa Inhaler] 2 puff INHALATION RT-Q6H PRN PRN Reason: Shortness Of Breath Tiotropium 18 Mcg/Puff [Spiriva] 1 puff INHALATION RT-DAILY Melatonin 5 mg PO HS Aspirin EC [Ecotrin Low Dose] 81 mg PO DAILY Albuterol Nebulized [Ventolin Nebulized] 2.5 mg INHALATION RT-Q6H PRN PRN Reason: Shortness Of Breath Potassium Chloride ER [K-Dur 20] 20 meq PO TID Discontinued Furosemide [Lasix] 60 mg PO BID #60 tab Discharge Medication List OLANZapine [ZyPREXA] 20 mg PO HS 03/18/19 [History] Gabapentin [Neurontin] 600 mg PO DAILY 07/14/19 [History] HYDROcodone/APAP 5-325MG [[place] 5-325] 1 tab PO Q6H PRN 07/14/19 [History] Rivaroxaban [Xarelto] 20 mg PO DAILY 07/14/19 [History] DULoxetine HCL [Cymbalta] 40 mg PO DAILY 07/15/19 [History] Diltiazem HCl 30 mg PO Q6H 07/15/19 [History] busPIRone HCl [Buspar] 5 mg PO BID 07/15/19 [History] Albuterol Inhaler [Ventolin Hfa Inhaler] 2 puff INHALATION RT-Q6H PRN 08/03/19 [History] Aspirin EC [Ecotrin Low Dose] 81 mg PO DAILY 08/03/19 [History] Atorvastatin [Lipitor] 10 mg PO HS 08/03/19 [History] Ergocalciferol (Vitamin D2) [Vitamin D2] 50,000 unit PO WE 08/03/19 [History] Hydrocortisone [Cortef] 10 mg PO BID 08/03/19 [History] Lidocaine 5% Patch [Lidoderm 5% Patch] 1 patch TOPICAL DAILY 08/03/19 [History] Melatonin 5 mg PO HS 08/03/19 [History] Tiotropium 18 Mcg/Puff [Spiriva] 1 puff INHALATION RT-DAILY 08/03/19 [History] Albuterol Nebulized [Ventolin Nebulized] 2.5 mg INHALATION RT-Q6H PRN 09/07/19 [History] Potassium Chloride ER [K-Dur 20] 20 meq PO TID 09/18/19 [History] Ciprofloxacin HCl [Cipro] 500 mg PO Q12H 3 Days #10 tab 09/27/19 [Rx] Furosemide [Lasix] 40 mg PO BID #60 tablet 09/27/19 [Rx] Follow up Appointment(s)/Referral(s): [facility], [NON-STAFF] - 1-2 Days Hugo Bailey MD [Primary Care Provider] - 1-2 days Discharge Disposition: HOME WITH HOME HEALTH SERVICES
--- NOTE | 2019-10-06 08:38 | CDI ---
Documentation Clarification Form Date: 10/06/2019 8:22:00 AM From: Julieta Sloan Phone: If you have a question about this query, please contact Sabrina More Creative Lead at [phone] between 8am and 5pm Admit Date: 09/26/2019 3:22:00 PM Patient Name: Donavon Saha Visit Number: [id number] Discharge Date: 09/28/2019 3:28:00 PM ATTENTION: The Clinical Documentation Specialists (CDI) and [facility] Coding Staff appreciate your assistance in clarifying documentation. Please respond to the clarification below the line at the bottom and electronically sign. The CDI & [facility] Coding staff will review the response and follow-up if needed. Please note: Queries are made part of the Legal Health Record. If you have any questions, please contact the author of this message via ITS. Dr. Roge Bashir A diagnosis of chronic anemia lacks specificity to accurately reflect your patients severity of condition and clarification is needed. Pain Management consult documents CKD III, H and P documents chronic anemia. Please clarify cause of chronic anemia. History/Risk Factors: personal history GI bleed patient on Xarelto and aspirin HX CVA DVT Hemoglobin: 11.5 10.3 Hematocrit: 32.4 In order to capture the severity of condition, please clarify the type of chronic anemia and etiology if known: Chronic blood loss anemia Iron deficiency anemia Hemolytic anemia Nutritional anemia Anemia of chronic kidney disease Unable to determine Other, please specify MTDD
== END 2019-09-28 15:28 | disposition home health service (06) | DRG 872 ==
LOC: EC 18:51 → 3NMEDONC 23:41 → OBSVTOIN 09-26 15:22
PROVIDERS: ADMIT Hospitalist; ATTEND Hospitalist
DX: A41.52 Sepsis due to Pseudomonas (principal); N30.00 Acute cystitis without hematuria; E27.40 Unspecified adrenocortical insufficiency; I13.0 Hypertensive heart and chronic kidney disease with heart failure and stage 1 through stage 4 chronic kidney disease, or unspecified chronic kidney disease; I50.32 Chronic diastolic (congestive) heart failure; Z68.42 Body mass index [BMI] 45.0-49.9, adult; Z85.828 Personal history of other malignant neoplasm of skin; E11.40 Type 2 diabetes mellitus with diabetic neuropathy, unspecified; R39.15 Urgency of urination; R35.0 Frequency of micturition; E11.65 Type 2 diabetes mellitus with hyperglycemia; E66.01 Morbid (severe) obesity due to excess calories; E78.5 Hyperlipidemia, unspecified; E83.42 Hypomagnesemia; F25.9 Schizoaffective disorder, unspecified; F31.9 Bipolar disorder, unspecified; F41.0 Panic disorder [episodic paroxysmal anxiety]; G47.33 Obstructive sleep apnea (adult) (pediatric); Z99.89 Dependence on other enabling machines and devices; G89.4 Chronic pain syndrome; N18.3 Chronic kidney disease, stage 3 (moderate); E11.22 Type 2 diabetes mellitus with diabetic chronic kidney disease; Z86.718 Personal history of other venous thrombosis and embolism; Z86.711 Personal history of pulmonary embolism; Z79.01 Long term (current) use of anticoagulants; Z87.01 Personal history of pneumonia (recurrent); Z87.19 Personal history of other diseases of the digestive system; M54.5 Low back pain; R53.81 Other malaise; I48.0 Paroxysmal atrial fibrillation; Z86.73 Personal history of transient ischemic attack (TIA), and cerebral infarction without residual deficits; J44.9 Chronic obstructive pulmonary disease, unspecified; K21.9 Gastro-esophageal reflux disease without esophagitis; M17.10 Unilateral primary osteoarthritis, unspecified knee; M16.10 Unilateral primary osteoarthritis, unspecified hip; M41.9 Scoliosis, unspecified; Z74.01 Bed confinement status; Z79.82 Long term (current) use of aspirin; Z79.899 Other long term (current) drug therapy; Z80.1 Family history of malignant neoplasm of trachea, bronchus and lung; Z82.49 Family history of ischemic heart disease and other diseases of the circulatory system; Z86.19 Personal history of other infectious and parasitic diseases; Z87.891 Personal history of nicotine dependence; D63.1 Anemia in chronic kidney disease; Z96.641 Presence of right artificial hip joint; Z96.652 Presence of left artificial knee joint; Z98.84 Bariatric surgery status; Z86.14 Personal history of Methicillin resistant Staphylococcus aureus infection; Z88.1 Allergy status to other antibiotic agents; Z88.5 Allergy status to narcotic agent; Z88.8 Allergy status to other drugs, medicaments and biological substances; T38.0X5A Adverse effect of glucocorticoids and synthetic analogues, initial encounter; Z86.69 Personal history of other diseases of the nervous system and sense organs
CPT/HCPCS: 36415; 71046; 80048; 80053; 81001; 82550; 83605; 83690; 83735; 83880; 84484; 85025; 85027; 85610; 85730; 87040; 87077; 87086; 87186; 87502; 93005; 94640; 94760; 96361; 96365; 96366; 96375; 99291

== ENCOUNTER 2019-10-15 20:58 | Emergency (ER) | payer MEDICARE, BC ==
[2019-10-15 21:20] VITALS: RESP 18
--- NOTE | 2019-10-15 21:45 | ED ---
General Adult HPI - General Chief complaint: Urogenital Stated complaint: fever,diarrhea, UTI Time Seen by Provider: 10/15/19 21:00 Source: patient, RN notes reviewed, old records reviewed Mode of arrival: EMS Limitations: no limitations - History of Present Illness Initial comments: 59-year-old male with extensive past medical history presents for evaluation of dysuria and reports of fever 48 hours ago. Patient has history of UTI. He is currently on day 4 of Macrobid. He reports a recent hospital admission approximately one month ago when he was diagnosed with UTI and initiated antibiotics at that time. His symptoms returned and he was started on Macrobid 4 days ago. He states he had a fever of 101 on Wednesday which was 2 days ago. He's been afebrile and closely monitoring his temperature since that time. He reports persistent dysuria. Denies cough, denies chest pain or dyspnea. He states he has some mild crampy abdominal pain and suprapubic pain. Denies testicular pain or swelling. Denies nausea vomiting. - Related Data Home Medications Medication Instructions Recorded Confirmed OLANZapine [ZyPREXA] 20 mg PO HS 03/18/19 09/25/19 Gabapentin [Neurontin] 600 mg PO DAILY 07/14/19 09/25/19 HYDROcodone/APAP 5-325MG [[place] 1 tab PO Q6H PRN 07/14/19 09/25/19 5-325] Rivaroxaban [Xarelto] 20 mg PO DAILY 07/14/19 09/25/19 DULoxetine HCL [Cymbalta] 40 mg PO DAILY 07/15/19 09/25/19 Diltiazem HCl 30 mg PO Q6H 07/15/19 09/25/19 busPIRone HCl [Buspar] 5 mg PO BID 07/15/19 09/25/19 Albuterol Inhaler [Ventolin Hfa 2 puff INHALATION RT-Q6H PRN 08/03/19 09/25/19 Inhaler] Aspirin EC [Ecotrin Low Dose] 81 mg PO DAILY 08/03/19 09/25/19 Atorvastatin [Lipitor] 10 mg PO HS 08/03/19 09/25/19 Ergocalciferol (Vitamin D2) 50,000 unit PO WE 08/03/19 09/25/19 [Vitamin D2] Hydrocortisone [Cortef] 10 mg PO BID 08/03/19 09/25/19 Lidocaine 5% Patch [Lidoderm 5% 1 patch TOPICAL DAILY 08/03/19 09/25/19 Patch] Melatonin 5 mg PO HS 08/03/19 09/25/19 Tiotropium 18 Mcg/Puff [Spiriva] 1 puff INHALATION RT-DAILY 08/03/19 09/25/19 Albuterol Nebulized [Ventolin 2.5 mg INHALATION RT-Q6H PRN 09/07/19 09/25/19 Nebulized] Potassium Chloride ER [K-Dur 20] 20 meq PO TID 09/18/19 09/25/19 Previous Rx's Medication Instructions Recorded Ciprofloxacin HCl [Cipro] 500 mg PO Q12H 3 Days #10 tab 09/27/19 Furosemide [Lasix] 40 mg PO BID #60 tablet 09/27/19 Levofloxacin [Levaquin] 500 mg PO DAILY 5 Days #5 tab 10/15/19 Allergies Allergy/AdvReac Type Severity Reaction Status Date / Time codeine Allergy Severe Swelling Verified 09/25/19 19:21 OF THROAT WITH COUGH SYRUP chlorpheniramine Allergy Unknown Verified 09/25/19 19:21 febuxostat [From Uloric] Allergy Unknown Verified 09/25/19 19:21 phenylephrine Allergy Unknown Verified 09/25/19 19:21 piperacillin sodium Allergy Unknown Verified 09/25/19 19:21 [From Zosyn] tazobactam sodium Allergy Unknown Verified 09/25/19 19:21 [From Zosyn] Review of Systems ROS Statement: Those systems with pertinent positive or pertinent negative responses have been documented in the HPI. ROS Other: All systems not noted in ROS Statement are negative. Past Medical History Past Medical History: Atrial Fibrillation, Asthma, Cancer, Heart Failure, COPD, CVA/TIA, Diabetes Mellitus, Deep Vein Thrombosis (DVT), GERD/Reflux, GI Bleed, Hyperlipidemia, Hypertension, Osteoarthritis (OA), Pneumonia, Pulmonary Embolus (PE), Renal Disease, Respiratory Disorder, Sleep Apnea/CPAP/BIPAP Additional Past Medical History / Comment(s): Pt recently admitted to [facility] on 08/05/19 with acute on chronic CHF/abnormal ECHO-see report/paroxysmal afib/bilateral pleural effusions with R sided thoracentesis. Other hx: Pt denies diabetes stating he has hypoglycemia/pt recently transfered to [facility] for endocrinology consultation-states he wasn't told anything new, states he has bilateral feet neuropathy, colitis, chronic diffuse abdominal pain, chronic generalized pain, fluid retention, bedbound, lower GI bleed, hiatal hernia, DVT in leg which traveled to his lung, DDD, scoliosis, ALEXIS without device, CKD stage III, pseudoseizures with past extensive work up thru [facility], basal cell skin cancer removed from face. History of Any Multi-Drug Resistant Organisms: C-DIFF, MRSA Date of last positivie culture/infection: mrsa 2019, c-diff 2019 MDRO Source:: sputum, stool Past Surgical History: Appendectomy, Bariatric Surgery, Heart Catheterization, Hernia Repair, Joint Replacement, Orthopedic Surgery Additional Past Surgical History / Comment(s): Gastric sleeve in 2013, L in guinal hernia repair, R elbow surgery x2, total R hip arthroplasty, L knee arthroscopy/ACL surgery, R ankle ORIF, EGD, colonoscopy, basal cell skin cancer from face, surgery for varicele. Past Anesthesia/Blood Transfusion Reactions: Previous Problems w/ Anesthesia Additional Past Anesthesia/Blood Transfusion Reaction / Comment(s): STATES HE WAS TOLD HE WAS A DIFFICULT INTUBATION WITH GASTRIC SLEEVE SURGERY, Past Psychological History: Anxiety, Bipolar, Depression, Panic Disorder, Schizoaffective Disorder Smoking Status: Former smoker Past Alcohol Use History: None Reported Past Drug Use History: None Reported - Past Family History Father Family Medical History: Cancer Additional Family Medical History / Comment(s): LUNG CA Mother Family Medical History: Coronary Artery Disease (CAD) Additional Family Medical History / Comment(s): Mother of an infection. General Exam Limitations: no limitations General appearance: alert, in no apparent distress Head exam: Present: atraumatic, normocephalic Eye exam: Present: normal appearance, PERRL ENT exam: Present: normal exam Neck exam: Present: normal inspection, tenderness Respiratory exam: Present: normal lung sounds bilaterally. Absent: respiratory distress, wheezes Cardiovascular Exam: Present: regular rate, normal rhythm GI/Abdominal exam: Present: soft. Absent: distended, tenderness, guarding, rebound exam: Present: normal inspection. Absent: testicular tenderness, urethral discharge, scrotal swelling Extremities exam: Present: normal capillary refill, pedal edema Neurological exam: Present: alert. Absent: normal gait Psychiatric exam: Present: normal affect, normal mood Skin exam: Present: warm, dry, intact. Absent: cyanosis, diaphoretic Course Vital Signs 10/15/19 21:13 Temperature 98.7 F Pulse Rate 74 Respiratory 18 Rate Blood Pressure 130/72 O2 Sat by Pulse 98 Oximetry Medical Decision Making - Medical Decision Making 59-year-old male with recent urinary tract infection and persistent dysuria. Patient is afebrile with stable vitals. Complaining of dysuria. Workup was initiated in the emergency department. He has a normal white blood cell count 7.6. He has a urinalysis showing oxide Estrace and 15 white cells. He has culture results from October 11 which show pseudomonas aeruginosa greater than 100,000 colony-forming units. This was susceptible to ciprofloxacin and Levaquin. He is currently on Macrobid. He will be initiated on Levaquin. He will monitor symptoms. He will return with fever. Stable for discharge at this time. - Lab Data Result diagrams: 10/15/19 21:40 10/15/19 21:40 Lab Results 10/15/19 10/15/19 10/15/19 Range/Units 21:40 21:40 22:30 WBC 7.6 (3.8-10.6) k/uL RBC 4.23 L (4.30-5.90) m/uL Hgb 11.7 L (13.0-17.5) gm/dL Hct 36.9 L (39.0-53.0) % MCV 87.3 (80.0-100.0) fL MCH 27.7 (25.0-35.0) pg MCHC 31.7 (31.0-37.0) g/dL RDW 14.1 (11.5-15.5) % Plt Count 252 (150-450) k/uL Neutrophils % 79 % Lymphocytes % 11 % Monocytes % 5 % Eosinophils % 3 % Basophils % 0 % Neutrophils # 6.0 (1.3-7.7) k/uL Lymphocytes # 0.8 L (1.0-4.8) k/uL Monocytes # 0.4 (0-1.0) k/uL Eosinophils # 0.3 (0-0.7) k/uL Basophils # 0.0 (0-0.2) k/uL Sodium 137 (137-145) mmol/L Potassium 3.8 (3.5-5.1) mmol/L Chloride 93 L (98-107) mmol/L Carbon Dioxide 36 H (22-30) mmol/L Anion Gap 8 mmol/L BUN 18 (9-20) mg/dL Creatinine 0.76 (0.66-1.25) mg/dL Est GFR (CKD-EPI)AfAm >90 (>60 ml/min/1.73 sqM) Est GFR (CKD-EPI)NonAf >90 (>60 ml/min/1.73 sqM) Glucose 108 H (74-99) mg/dL POC Glucose (mg/dL) (75-99) mg/dL POC Glu Egg Smeller ID Calcium 9.6 (8.4-10.2) mg/dL Total Bilirubin 0.5 (0.2-1.3) mg/dL AST 25 (17-59) U/L ALT 26 (21-72) U/L Alkaline Phosphatase 92 (38-126) U/L Total Protein 6.5 (6.3-8.2) g/dL Albumin 3.6 (3.5-5.0) g/dL Urine Color Yellow Urine Appearance Clear (Clear) Urine pH 6.5 (5.0-8.0) Ur Specific [place] 1.005 (1.001-1.035) Urine Protein Negative (Negative) Urine Glucose (UA) Negative (Negative) Urine Ketones Negative (Negative) Urine Blood Moderate H (Negative) Urine Nitrite Negative (Negative) Urine Bilirubin Negative (Negative) Urine Urobilinogen <2.0 (<2.0) mg/dL Ur Leukocyte Esterase Large H (Negative) Urine RBC 5 (0-5) /hpf Urine WBC 15 H (0-5) /hpf Ur Squamous Epith Cells 1 (0-4) /hpf 10/15/19 Range/Units 23:13 WBC (3.8-10.6) k/uL RBC (4.30-5.90) m/uL Hgb (13.0-17.5) gm/dL Hct (39.0-53.0) % MCV (80.0-100.0) fL MCH (25.0-35.0) pg MCHC (31.0-37.0) g/dL RDW (11.5-15.5) % Plt Count (150-450) k/uL Neutrophils % % Lymphocytes % % Monocytes % % Eosinophils % % Basophils % % Neutrophils # (1.3-7.7) k/uL Lymphocytes # (1.0-4.8) k/uL Monocytes # (0-1.0) k/uL Eosinophils # (0-0.7) k/uL Basophils # (0-0.2) k/uL Sodium (137-145) mmol/L Potassium (3.5-5.1) mmol/L Chloride (98-107) mmol/L Carbon Dioxide (22-30) mmol/L Anion Gap mmol/L BUN (9-20) mg/dL Creatinine (0.66-1.25) mg/dL Est GFR (CKD-EPI)AfAm (>60 ml/min/1.73 sqM) Est GFR (CKD-EPI)NonAf (>60 ml/min/1.73 sqM) Glucose (74-99) mg/dL POC Glucose (mg/dL) 107 H (75-99) mg/dL POC Glu Egg Smeller ID [place] Calcium (8.4-10.2) mg/dL Total Bilirubin (0.2-1.3) mg/dL AST (17-59) U/L ALT (21-72) U/L Alkaline Phosphatase (38-126) U/L Total Protein (6.3-8.2) g/dL Albumin (3.5-5.0) g/dL Urine Color Urine Appearance (Clear) Urine pH (5.0-8.0) Ur Specific [place] (1.001-1.035) Urine Protein (Negative) Urine Glucose (UA) (Negative) Urine Ketones (Negative) Urine Blood (Negative) Urine Nitrite (Negative) Urine Bilirubin (Negative) Urine Urobilinogen (<2.0) mg/dL Ur Leukocyte Esterase (Negative) Urine RBC (0-5) /hpf Urine WBC (0-5) /hpf Ur Squamous Epith Cells (0-4) /hpf Disposition Clinical Impression: Urinary tract infection Disposition: HOME SELF-CARE Condition: Fair Instructions (If sedation given, give patient instructions): Urinary Tract Infection in Men (ED) Prescriptions: Levofloxacin [Levaquin] 500 mg PO DAILY 5 Days #5 tab Is patient prescribed a controlled substance at d/c from ED?: No Referrals: Hugo Bailey MD [Primary Care Provider] - 1-2 days Time of Disposition: 23:19
[2019-10-15 22:07] LABS: Basophils % (A) 0 %; Eosinophils # (A) 0.3 k/uL (0-0.7); Eosinophils % (A) 3 %; HCT 36.9 % (39.0-53.0); HGB 11.7 gm/dL (13.0-17.5); Lymphocytes # (A) 0.8 k/uL (1.0-4.8); Lymphocytes % (A) 11 %; MCH 27.7 pg (25.0-35.0); MCHC 31.7 g/dL (31.0-37.0); MCV 87.3 fL (80.0-100.0); Mean Platelet Volume 6.9; Monocytes # (A) 0.4 k/uL (0-1.0); Monocytes % (A) 5 %; Neutrophils % (A) 79 %; Platelet Count 252 k/uL (150-450); RBC 4.23 m/uL (4.30-5.90); RDW 14.1 % (11.5-15.5); WBC 7.6 k/uL (3.8-10.6)
[2019-10-15 22:20] LABS: ALT 26 U/L (21-72); AST 25 U/L (17-59); African American GFR (CKD) >90 (>60 ml/min/1.73 sqM); Albumin 3.6 g/dL (3.5-5.0); Alkaline Phosphatase 92 U/L (38-126); Anion Gap 8 mmol/L; Blood Urea Nitrogen 18 mg/dL (9-20); Calcium 9.6 mg/dL (8.4-10.2); Carbon Dioxide 36 mmol/L (22-30); Chloride 93 mmol/L (98-107); Glucose 108 mg/dL (74-99); Non-African American GFR(CKD) >90 (>60 ml/min/1.73 sqM); Potassium 3.8 mmol/L (3.5-5.1); Sodium 137 mmol/L (137-145); Total Bilirubin 0.5 mg/dL (0.2-1.3); Total Protein 6.5 g/dL (6.3-8.2)
[2019-10-15 22:44] LABS: Appearance,Urine Clear (Clear); Bilirubin,Urine Negative (Negative); Blood,Urine Moderate (Negative); Color,Urine Yellow; Glucose,Urine (UA) Negative (Negative); Ketones,Urine Negative (Negative); Leukocyte Esterase,Urine Large (Negative); Nitrite,Urine Negative (Negative); PH, Urine 6.5 (5.0-8.0); Protein,Urine Negative (Negative); Specific Gravity,Urine 1.005 (1.001-1.035); Urobilinogen,Urine <2.0 mg/dL (<2.0)
[2019-10-15 22:58] LABS: RBC,Urine 5 /hpf (0-5); Squamous Epithelial Cell,Urine 1 /hpf (0-4)
[2019-10-15 23:15] LABS: Glucose,Whole Blood 107 mg/dL (75-99)
[2019-10-15] MEDS ORDERED: LEVOFLOXACIN 500 MG TAB PO STA (23:17)
[2019-10-15 23:41] VITALS: BP 136/79; PULSE 72; TEMP 97.9
== END 2019-10-16 00:32 | disposition home or self-care (01) ==
LOC: EC 20:58
DX: N39.0 Urinary tract infection, site not specified (principal); R60.0 Localized edema; I48.0 Paroxysmal atrial fibrillation; J44.9 Chronic obstructive pulmonary disease, unspecified; I13.0 Hypertensive heart and chronic kidney disease with heart failure and stage 1 through stage 4 chronic kidney disease, or unspecified chronic kidney disease; I50.9 Heart failure, unspecified; E78.5 Hyperlipidemia, unspecified; M19.90 Unspecified osteoarthritis, unspecified site; N18.3 Chronic kidney disease, stage 3 (moderate); G62.9 Polyneuropathy, unspecified; F31.9 Bipolar disorder, unspecified; F41.0 Panic disorder [episodic paroxysmal anxiety]; Z87.891 Personal history of nicotine dependence; Z88.0 Allergy status to penicillin; Z88.5 Allergy status to narcotic agent; Z88.8 Allergy status to other drugs, medicaments and biological substances; Z79.01 Long term (current) use of anticoagulants; Z79.52 Long term (current) use of systemic steroids; Z79.82 Long term (current) use of aspirin; Z79.899 Other long term (current) drug therapy; Z85.828 Personal history of other malignant neoplasm of skin; Z98.890 Other specified postprocedural states; Z86.73 Personal history of transient ischemic attack (TIA), and cerebral infarction without residual deficits; Z86.718 Personal history of other venous thrombosis and embolism; Z86.711 Personal history of pulmonary embolism; Z74.01 Bed confinement status; Z86.14 Personal history of Methicillin resistant Staphylococcus aureus infection; Z96.641 Presence of right artificial hip joint; Z90.49 Acquired absence of other specified parts of digestive tract; Z98.84 Bariatric surgery status; Z83.1 Family history of other infectious and parasitic diseases
CPT/HCPCS: 36415; 80053; 81001; 85025; 87077; 87086; 87186; 99284

== ENCOUNTER 2019-10-18 18:58 | Emergency (ER) | payer MEDICARE, BC ==
[2019-10-18] MEDS ORDERED: FUROSEMIDE 10 MG/ML 4 ML VIAL IV STA (19:15)
--- NOTE | 2019-10-18 19:20 | ED ---
General Adult HPI - General Chief complaint: Shortness of Breath Stated complaint: Dyspnea Time Seen by Provider: 10/18/19 19:03 Source: patient, EMS, RN notes reviewed Mode of arrival: EMS Limitations: no limitations - History of Present Illness Initial comments: Patient is a pleasant 59-year-old male presenting to the emergency Department with complaints of dyspnea. Onset of symptoms was chronic however symptoms seemed to worsen over the past couple of days. Patient is concerned he has fluid build up on his lungs. Patient states he has previously been draining sometimes up to a liter. Patient states he was here a few days ago however there is not enough fluid on him to need drainage. Patient states he does have chronic chest discomfort which has been unchanged for the past 6 months or so. Patient states his leg edema is chronic however may be a little bit worse than normal. Patient does not ambulate. Patient is on Xarelto. - Related Data Home Medications Medication Instructions Recorded Confirmed OLANZapine [ZyPREXA] 20 mg PO HS 03/18/19 09/25/19 Gabapentin [Neurontin] 600 mg PO DAILY 07/14/19 09/25/19 HYDROcodone/APAP 5-325MG [Currie 1 tab PO Q6H PRN 07/14/19 09/25/19 5-325] Rivaroxaban [Xarelto] 20 mg PO DAILY 07/14/19 09/25/19 DULoxetine HCL [Cymbalta] 40 mg PO DAILY 07/15/19 09/25/19 Diltiazem HCl 30 mg PO Q6H 07/15/19 09/25/19 busPIRone HCl [Buspar] 5 mg PO BID 07/15/19 09/25/19 Albuterol Inhaler [Ventolin Hfa 2 puff INHALATION RT-Q6H PRN 08/03/19 09/25/19 Inhaler] Aspirin EC [Ecotrin Low Dose] 81 mg PO DAILY 08/03/19 09/25/19 Atorvastatin [Lipitor] 10 mg PO HS 08/03/19 09/25/19 Ergocalciferol (Vitamin D2) 50,000 unit PO WE 08/03/19 09/25/19 [Vitamin D2] Hydrocortisone [Cortef] 10 mg PO BID 08/03/19 09/25/19 Lidocaine 5% Patch [Lidoderm 5% 1 patch TOPICAL DAILY 08/03/19 09/25/19 Patch] Melatonin 5 mg PO HS 08/03/19 09/25/19 Tiotropium 18 Mcg/Puff [Spiriva] 1 puff INHALATION RT-DAILY 08/03/19 09/25/19 Albuterol Nebulized [Ventolin 2.5 mg INHALATION RT-Q6H PRN 09/07/19 09/25/19 Nebulized] Potassium Chloride ER [K-Dur 20] 20 meq PO TID 09/18/19 09/25/19 Previous Rx's Medication Instructions Recorded Ciprofloxacin HCl [Cipro] 500 mg PO Q12H 3 Days #10 tab 09/27/19 Furosemide [Lasix] 40 mg PO BID #60 tablet 09/27/19 Levofloxacin [Levaquin] 500 mg PO DAILY 5 Days #5 tab 10/15/19 Allergies Allergy/AdvReac Type Severity Reaction Status Date / Time codeine Allergy Severe Swelling Verified 10/18/19 19:15 OF THROAT WITH COUGH SYRUP chlorpheniramine Allergy Unknown Verified 10/18/19 19:15 febuxostat [From Uloric] Allergy Unknown Verified 10/18/19 19:15 phenylephrine Allergy Unknown Verified 10/18/19 19:15 piperacillin sodium Allergy Unknown Verified 10/18/19 19:15 [From Zosyn] tazobactam sodium Allergy Unknown Verified 10/18/19 19:15 [From Zosyn] Review of Systems ROS Statement: Those systems with pertinent positive or pertinent negative responses have been documented in the HPI. ROS Other: All systems not noted in ROS Statement are negative. Constitutional: Denies: fever Eyes: Denies: eye pain ENT: Denies: ear pain Respiratory: Reports: as per HPI, dyspnea. Denies: cough Cardiovascular: Reports: as per HPI Endocrine: Denies: fatigue Gastrointestinal: Denies: abdominal pain Genitourinary: Denies: dysuria Musculoskeletal: Denies: back pain Skin: Denies: rash Neurological: Denies: weakness Past Medical History Past Medical History: Atrial Fibrillation, Asthma, Cancer, Heart Failure, COPD, CVA/TIA, Diabetes Mellitus, Deep Vein Thrombosis (DVT), GERD/Reflux, GI Bleed, Hyperlipidemia, Hypertension, Osteoarthritis (OA), Pneumonia, Pulmonary Embolus (PE), Renal Disease, Respiratory Disorder, Sleep Apnea/CPAP/BIPAP Additional Past Medical History / Comment(s): Pt recently admitted to [facility] on 08/05/19 with acute on chronic CHF/abnormal ECHO-see report/paroxysmal afib/bilateral pleural effusions with R sided thoracentesis. Other hx: Pt denies diabetes stating he has hypoglycemia/pt recently transfered to [facility] for endocrinology consultation-states he wasn't told anything new, states he has bilateral feet neuropathy, colitis, chronic diffuse abdominal pain, chronic gen eralized pain, fluid retention, bedbound, lower GI bleed, hiatal hernia, DVT in leg which traveled to his lung, DDD, scoliosis, ALEXIS without device, CKD stage III, pseudoseizures with past extensive work up thru [facility], basal cell skin cancer removed from face. History of Any Multi-Drug Resistant Organisms: C-DIFF, MRSA Date of last positivie culture/infection: mrsa 2018, c-diff 2019 MDRO Source:: sputum, stool Past Surgical History: Appendectomy, Bariatric Surgery, Heart Catheterization, Hernia Repair, Joint Replacement, Orthopedic Surgery Additional Past Surgical History / Comment(s): Gastric sleeve in 2013, L inguinal hernia repair, R elbow surgery x2, total R hip arthroplasty, L knee arthroscopy/ACL surgery, R ankle ORIF, EGD, colonoscopy, basal cell skin cancer from face, surgery for varicele. Past Anesthesia/Blood Transfusion Reactions: Previous Problems w/ Anesthesia Additional Past Anesthesia/Blood Transfusion Reaction / Comment(s): STATES HE WAS TOLD HE WAS A DIFFICULT INTUBATION WITH GASTRIC SLEEVE SURGERY, Past Psychological History: Anxiety, Bipolar, Depression, Panic Disorder, Schizoaffective Disorder Smoking Status: Former smoker Past Alcohol Use History: Abuse, Heavy Past Drug Use History: None Reported - Past Family History Father Family Medical History: Cancer Additional Family Medical History / Comment(s): LUNG CA Mother Family Medical History: Coronary Artery Disease (CAD) Additional Family Medical History / Comment(s): Mother of an infection. General Exam Limitations: no limitations General appearance: alert, in no apparent distress Head exam: Present: normocephalic Eye exam: Present: normal appearance, PERRL ENT exam: Present: normal oropharynx Respiratory exam: Present: other (Mild decreased breath sounds bilateral bases) Cardiovascular Exam: Present: regular rate, normal rhythm GI/Abdominal exam: Present: soft. Absent: tenderness Extremities exam: Present: pedal edema. Absent: calf tenderness Neurological exam: Present: alert Psychiatric exam: Present: normal affect, normal mood Skin exam: Present: normal color Course Vital Signs 10/18/19 10/18/19 19:12 20:15 Temperature 98.7 F Pulse Rate 69 74 Respiratory 20 20 Rate Blood Pressure 141/75 145/64 O2 Sat by Pulse 99 97 Oximetry EKG Findings - EKG Comments: EKG Findings:: Normal sinus rhythm 71. ID 172. QRS 108. QT 370. QTc 402. Normal axis. Incomplete right bundle-branch. No acute ST change. Medical Decision Making - Medical Decision Making Patient reevaluated and resting comfortably in bed. Pulse ox 97% on room air. Case was discussed in detail with Dr. Bashir who is familiar with this patient and recommends discharge. He states patient does not need thoracentesis has known from previous encounters with the patient and discussions with pulmonary. - Lab Data Result diagrams: 10/18/19 19:20 10/18/19 19:20 Lab Results 10/18/19 10/18/19 10/18/19 Range/Units 19:20 19:20 19:20 WBC 6.1 (3.8-10.6) k/uL RBC 4.28 L (4.30-5.90) m/uL Hgb 12.2 L (13.0-17.5) gm/dL Hct 37.7 L (39.0-53.0) % MCV 88.0 (80.0-100.0) fL MCH 28.5 (25.0-35.0) pg MCHC 32.4 (31.0-37.0) g/dL RDW 13.4 (11.5-15.5) % Plt Count 254 (150-450) k/uL Neutrophils % 70 % Lymphocytes % 17 % Monocytes % 6 % Eosinophils % 4 % Basophils % 1 % Neutrophils # 4.3 (1.3-7.7) k/uL Lymphocytes # 1.0 (1.0-4.8) k/uL Monocytes # 0.4 (0-1.0) k/uL Eosinophils # 0.2 (0-0.7) k/uL Basophils # 0.0 (0-0.2) k/uL Hypochromasia Moderate PT (9.0-12.0) sec INR (<1.2) APTT (22.0-30.0) sec Sodium 139 (137-145) mmol/L Potassium 3.9 (3.5-5.1) mmol/L Chloride 92 L (98-107) mmol/L Carbon Dioxide 39 H (22-30) mmol/L Anion Gap 8 mmol/L BUN 18 (9-20) mg/dL Creatinine 0.77 (0.66-1.25) mg/dL Est GFR (CKD-EPI)AfAm >90 (>60 ml/min/1.73 sqM) Est GFR (CKD-EPI)NonAf >90 (>60 ml/min/1.73 sqM) Glucose 106 H (74-99) mg/dL Calcium 9.4 (8.4-10.2) mg/dL Total Bilirubin 0.3 (0.2-1.3) mg/dL AST 22 (17-59) U/L ALT 29 (21-72) U/L Alkaline Phosphatase 88 (38-126) U/L Troponin I (0.000-0.034) ng/mL NT-Pro-B Natriuret Pep 136 pg/mL Total Protein 6.1 L (6.3-8.2) g/dL Albumin 3.4 L (3.5-5.0) g/dL 10/18/19 10/18/19 Range/Units 19:20 19:20 WBC (3.8-10.6) k/uL RBC (4.30-5.90) m/uL Hgb (13.0-17.5) gm/dL Hct (39.0-53.0) % MCV (80.0-100.0) fL MCH (25.0-35.0) pg MCHC (31.0-37.0) g/dL RDW (11.5-15.5) % Plt Count (150-450) k/uL Neutrophils % % Lymphocytes % % Monocytes % % Eosinophils % % Basophils % % Neutrophils # (1.3-7.7) k/uL Lymphocytes # (1.0-4.8) k/uL Monocytes # (0-1.0) k/uL Eosinophils # (0-0.7) k/uL Basophils # (0-0.2) k/uL Hypochromasia PT 10.5 (9.0-12.0) sec INR 1.0 (<1.2) APTT 33.2 H (22.0-30.0) sec Sodium (137-145) mmol/L Potassium (3.5-5.1) mmol/L Chloride (98-107) mmol/L Carbon Dioxide (22-30) mmol/L Anion Gap mmol/L BUN (9-20) mg/dL Creatinine (0.66-1.25) mg/dL Est GFR (CKD-EPI)AfAm (>60 ml/min/1.73 sqM) Est GFR (CKD-EPI)NonAf (>60 ml/min/1.73 sqM) Glucose (74-99) mg/dL Calcium (8.4-10.2) mg/dL Total Bilirubin (0.2-1.3) mg/dL AST (17-59) U/L ALT (21-72) U/L Alkaline Phosphatase (38-126) U/L Troponin I <0.012 (0.000-0.034) ng/mL NT-Pro-B Natriuret Pep pg/mL Total Protein (6.3-8.2) g/dL Albumin (3.5-5.0) g/dL - Radiology Data Radiology results: image reviewed (Chest x-ray shows cardiomegaly. Increasing moderate to large right effusion with adjacent atelectasis or consolidation.) Disposition Clinical Impression: Pleural effusion, right Disposition: HOME SELF-CARE Condition: Stable Instructions (If sedation given, give patient instructions): Pleural Effusion (ED) Additional Instructions: Please follow-up with primary care physician in the next day or 2 for recheck. Return for difficulty in breathing, fever, cough, worsening symptoms or other concerns. Is patient prescribed a controlled substance at d/c from ED?: No Referrals: Hugo Bailey MD [Primary Care Provider] - 1-2 days Time of Disposition: 20:47
[2019-10-18 19:40] LABS: Basophils % (A) 1 %; Eosinophils # (A) 0.2 k/uL (0-0.7); Eosinophils % (A) 4 %; HCT 37.7 % (39.0-53.0); HGB 12.2 gm/dL (13.0-17.5); Hypochromasia Moderate; Lymphocytes % (A) 17 %; MCH 28.5 pg (25.0-35.0); MCHC 32.4 g/dL (31.0-37.0); Mean Platelet Volume 5.9; Monocytes # (A) 0.4 k/uL (0-1.0); Monocytes % (A) 6 %; Neutrophils # (A) 4.3 k/uL (1.3-7.7); Neutrophils % (A) 70 %; Platelet Count 254 k/uL (150-450); RBC 4.28 m/uL (4.30-5.90); RDW 13.4 % (11.5-15.5); WBC 6.1 k/uL (3.8-10.6)
--- NOTE | 2019-10-18 19:42 | XR ---
EXAMINATION TYPE: XR chest 2V DATE OF EXAM: 10/18/2019 COMPARISON: 09/25/2019 HISTORY: 59-year-old male difficulty breathing, shortness of breath TECHNIQUE: AP and lateral views FINDINGS: Heart mildly enlarged. Moderate size right pleural effusion with a density throughout the right lung. Pleural effusion is increased from prior. IMPRESSION: Stable mild cardiomegaly. Increasing moderate to large right pleural effusion with adjacent atelectas is and/or consolidation.
[2019-10-18 19:48] LABS: ALT 29 U/L (21-72); AST 22 U/L (17-59); African American GFR (CKD) >90 (>60 ml/min/1.73 sqM); Albumin 3.4 g/dL (3.5-5.0); Alkaline Phosphatase 88 U/L (38-126); Anion Gap 8 mmol/L; Blood Urea Nitrogen 18 mg/dL (9-20); Calcium 9.4 mg/dL (8.4-10.2); Carbon Dioxide 39 mmol/L (22-30); Chloride 92 mmol/L (98-107); Glucose 106 mg/dL (74-99); Non-African American GFR(CKD) >90 (>60 ml/min/1.73 sqM); Potassium 3.9 mmol/L (3.5-5.1); Sodium 139 mmol/L (137-145); Total Bilirubin 0.3 mg/dL (0.2-1.3); Total Protein 6.1 g/dL (6.3-8.2)
[2019-10-18 19:49] LABS: Partial Thromboplastin Time 33.2 sec (22.0-30.0); Prothrombin Time 10.5 sec (9.0-12.0)
[2019-10-18 21:02] VITALS: BP 149/79; PULSE 73; RESP 18; TEMP 97.7
== END 2019-10-18 21:55 | disposition home or self-care (01) ==
LOC: EC 18:58
DX: J90 Pleural effusion, not elsewhere classified (principal); F41.9 Anxiety disorder, unspecified; F31.9 Bipolar disorder, unspecified; I13.0 Hypertensive heart and chronic kidney disease with heart failure and stage 1 through stage 4 chronic kidney disease, or unspecified chronic kidney disease; I50.9 Heart failure, unspecified; J44.9 Chronic obstructive pulmonary disease, unspecified; F20.9 Schizophrenia, unspecified; E78.5 Hyperlipidemia, unspecified; E11.44 Type 2 diabetes mellitus with diabetic amyotrophy; I48.0 Paroxysmal atrial fibrillation; M19.90 Unspecified osteoarthritis, unspecified site; E11.40 Type 2 diabetes mellitus with diabetic neuropathy, unspecified; Z79.899 Other long term (current) drug therapy; Z79.82 Long term (current) use of aspirin; Z79.01 Long term (current) use of anticoagulants; Z88.5 Allergy status to narcotic agent; Z88.8 Allergy status to other drugs, medicaments and biological substances; Z88.1 Allergy status to other antibiotic agents; Z86.718 Personal history of other venous thrombosis and embolism; Z86.73 Personal history of transient ischemic attack (TIA), and cerebral infarction without residual deficits; Z87.891 Personal history of nicotine dependence; Z85.828 Personal history of other malignant neoplasm of skin; Z86.711 Personal history of pulmonary embolism; Z98.84 Bariatric surgery status; Z82.49 Family history of ischemic heart disease and other diseases of the circulatory system; Z86.14 Personal history of Methicillin resistant Staphylococcus aureus infection
CPT/HCPCS: 36415; 93005; 83880; 80053; 84484; 85025; 85610; 85730; 71046; 96374; 99285; J1940

== ENCOUNTER 2019-10-31 21:21 | Emergency (ER) | payer MEDICARE, BC ==
[2019-10-31 21:33] VITALS: TEMP 98.3
[2019-10-31 21:44] LABS: Glucose,Whole Blood 99 mg/dL (75-99)
[2019-10-31 21:51] LABS: Basophils # (A) 0.1 k/uL (0-0.2); Basophils % (A) 1 %; Eosinophils # (A) 0.3 k/uL (0-0.7); Eosinophils % (A) 4 %; HCT 35.5 % (39.0-53.0); HGB 11.3 gm/dL (13.0-17.5); Hypochromasia Slight; Lymphocytes % (A) 16 %; MCH 27.6 pg (25.0-35.0); MCHC 31.8 g/dL (31.0-37.0); MCV 86.7 fL (80.0-100.0); Mean Platelet Volume 6.7; Monocytes # (A) 0.4 k/uL (0-1.0); Monocytes % (A) 6 %; Neutrophils # (A) 4.5 k/uL (1.3-7.7); Neutrophils % (A) 71 %; Platelet Count 290 k/uL (150-450); RDW 13.5 % (11.5-15.5); WBC 6.3 k/uL (3.8-10.6)
[2019-10-31 22:00] LABS: ALT 35 U/L (21-72); AST 27 U/L (17-59); African American GFR (CKD) >90 (>60 ml/min/1.73 sqM); Albumin 3.4 g/dL (3.5-5.0); Alkaline Phosphatase 92 U/L (38-126); Blood Urea Nitrogen 18 mg/dL (9-20); Calcium 9.6 mg/dL (8.4-10.2); Chloride 92 mmol/L (98-107); Glucose 98 mg/dL (74-99); Magnesium 1.6 mg/dL (1.6-2.3); Non-African American GFR(CKD) >90 (>60 ml/min/1.73 sqM); Potassium 4.2 mmol/L (3.5-5.1); Sodium 137 mmol/L (137-145); Total Bilirubin 0.4 mg/dL (0.2-1.3); Total Protein 6.1 g/dL (6.3-8.2)
[2019-10-31 22:08] LABS: Anion Gap 4 mmol/L
[2019-10-31 22:28] LABS: Carbon Dioxide 41 mmol/L (22-30)
--- NOTE | 2019-10-31 23:41 | ED ---
Weakness HPI - General Chief complaint: Weakness Stated complaint: Weakness, SOB Time Seen by Provider: 10/31/19 21:25 Source: patient, EMS Mode of arrival: EMS Limitations: no limitations - History of Present Illness Initial comments: Donavon byrd is a 59-year-old gentleman very well known to the emergency department due to recurrent visits. Patient has multiple medical comorbidities. Patient is nonambulatory, lives at home has home health. Patient reports he was practicing is exercises recommended by occupational therapy and physical therapy throughout the day today. He states that his home health care nurse came and checked on him. Patient was feeling quite well at that time. Patient states that this evening after having a very active day he suddenly felt very tired, he had generalized weakness. He reports his entire body felt heavy he felt weak and tired he felt like he couldn't even lift his head off the bed. Patient states that he became concerned so he called EMS for transport to the hospital. Denies any headache, vision changes, trouble speaking or swallowing, chest pain palpitations or shortness of breath. - Related Data Home Medications Medication Instructions Recorded Confirmed OLANZapine [ZyPREXA] 20 mg PO HS 03/18/19 10/31/19 Rivaroxaban [Xarelto] 20 mg PO DAILY 07/14/19 10/31/19 DULoxetine HCL [Cymbalta] 40 mg PO DAILY 07/15/19 10/31/19 Diltiazem HCl 30 mg PO Q6H 07/15/19 10/31/19 Albuterol Inhaler [Ventolin Hfa 2 puff INHALATION RT-Q6H PRN 08/03/19 10/31/19 Inhaler] Aspirin EC [Ecotrin Low Dose] 81 mg PO DAILY 08/03/19 10/31/19 Atorvastatin [Lipitor] 10 mg PO HS 08/03/19 10/31/19 Ergocalciferol (Vitamin D2) 50,000 unit PO WE 08/03/19 10/31/19 [Vitamin D2] Hydrocortisone [Cortef] 10 mg PO BID 08/03/19 10/31/19 Lidocaine 5% Patch [Lidoderm 5% 1 patch TOPICAL DAILY 08/03/19 10/31/19 Patch] Melatonin 5 mg PO HS 08/03/19 10/31/19 Tiotropium 18 Mcg/Puff [Spiriva] 1 puff INHALATION RT-DAILY 08/03/19 10/31/19 Albuterol Nebulized [Ventolin 2.5 mg INHALATION RT-Q6H PRN 09/07/19 10/31/19 Nebulized] Potassium Chloride ER [K-Dur 20] 20 meq PO TID 09/18/19 10/31/19 Furosemide [Lasix] 40 mg PO DAILY 10/31/19 10/31/19 Gabapentin [Neurontin] 400 mg PO BID 10/31/19 10/31/19 HYDROcodone/APAP 7.5-325MG [Jennings 1 tab PO Q6HR PRN 10/31/19 10/31/19 7.5-325] busPIRone HCL 15 mg PO TID 10/31/19 10/31/19 Previous Rx's Medication Instructions Recorded Ciprofloxacin HCl [Cipro] 500 mg PO Q12H 3 Days #10 tab 09/27/19 Allergies Allergy/AdvReac Type Severity Reaction Status Date / Time codeine Allergy Severe Swelling Verified 10/31/19 22:15 OF THROAT WITH COUGH SYRUP chlorpheniramine Allergy Unknown Verified 10/31/19 22:15 febuxostat [From Uloric] Allergy Unknown Verified 10/31/19 22:15 phenylephrine Allergy Unknown Verified 10/31/19 22:15 piperacillin sodium Allergy Unknown Verified 10/31/19 22:15 [From Zosyn] tazobactam sodium Allergy Unknown Verified 10/31/19 22:15 [From Zosyn] Review of Systems ROS Statement: Those systems with pertinent positive or pertinent negative responses have been documented in the HPI. ROS Other: All systems not noted in ROS Statement are negative. Past Medical History Past Medical History: Atrial Fibrillation, Asthma, Cancer, Heart Failure, COPD, CVA/TIA, Diabetes Mellitus, Deep Vein Thrombosis (DVT), GERD/Reflux, GI Bleed, Hyperlipidemia, Hypertension, Osteoarthritis (OA), Pneumonia, Pulmonary Embolus (PE), Renal Disease, Respiratory Disorder, Sleep Apnea/CPAP/BIPAP Additional Past Medical History / Comment(s): Pt recently admitted to [facility] on 08/05/19 with acute on chronic CHF/abnormal ECHO-see report/paroxysmal afib/bilateral pleural effusions with R sided thoracentesis. Other hx: Pt denies diabetes stating he has hypoglycemia/pt recently transfered to [facility] for endocrinology consultation-states he wasn't told anything new, states he has bilateral feet neuropathy, colitis, chronic diffuse abdominal pain, chronic generalized pain, fluid retention, bedbound, lower GI bleed, hiatal hernia, DVT in leg which traveled to his lung, DDD, scoliosis, ALEXIS without device, CKD stage III, pseudoseizures with past extensive work up thru [facility], basal cell skin cancer removed from face. History of Any Multi-Drug Resistant Organisms: C-DIFF, MRSA Date of last positivie culture/infection: mrsa 2018, c-diff 2019 MDRO Source:: sputum, stool Past Surgical History: Appendectomy, Bariatric Surgery, Heart Catheterization, Hernia Repair, Joint Replacement, Orthopedic Surgery Additional Past Surgical History / Comment(s): Gastric sleeve in 2014, L inguinal hernia repair, R elbow surgery x2, total R hip arthroplasty, L knee arthroscopy/ACL surgery, R ankle ORIF, EGD, colonoscopy, basal cell skin cancer from face, surgery for varicele. Past Anesthesia/Blood Transfusion Reactions: Previous Problems w/ Anesthesia Additional Past Anesthesia/Blood Transfusion Reaction / Comment(s): STATES HE WAS TOLD HE WAS A DIFFICULT INTUBATION WITH GASTRIC SLEEVE SURGERY, Past Psychological History: Anxiety, Bipolar, Depression, Panic Disorder, Gabbi izoaffective Disorder Smoking Status: Former smoker Past Alcohol Use History: Abuse, Heavy Past Drug Use History: None Reported - Past Family History Father Family Medical History: Cancer Additional Family Medical History / Comment(s): LUNG CA Mother Family Medical History: Coronary Artery Disease (CAD) Additional Family Medical History / Comment(s): Mother of an infection. General Exam - General Exam Comments Initial Comments: Physical Exam GENERAL: Morbidly obese, chronically debilitated, bed bound No acute distress HENT: Normocephalic, Atraumatic. EYES: PERRL, EOMI PULMONARY: Clear lung sounds bilaterally Hyperventilation due to obesity CARDIOVASCULAR: RRR ABDOMEN: Obese, nontender SKIN: Skin changes on bilateral lower extremities consistent with chronic venous stasis : Deferred NEUROLOGIC: Patient is alert and oriented x3. Moving all extremities spontaneously Generalized weakness, no focal deficits MUSCULOSKELETAL: Pitting edema bilateral lower extremities, chronic PSYCHIATRIC: Helpless affect Limitations: no limitations Course Vital Signs 10/31/19 11/01/19 21:23 00:31 Temperature 98.3 F Pulse Rate 60 75 Respiratory 16 18 Rate Blood Pressure 121/70 100/60 O2 Sat by Pulse 95 99 Oximetry EKG Findings - EKG Comments: EKG Findings:: EKG was obtained due to complaint of generalized weakness, EKG obtained at 2147, rate is 63 rhythm is sinus areas normal axis, normal intervals. MI 136, troponin 18, QTC [address] elevations or depressions no evidence of acute ischemia or infarction. Procedures - [place] Protocol (Time Out) Nurse: Chayo Stapleton Medical Decision Making - Medical Decision Making The patient was seen and evaluated history is obtained from patient. Patient expressing some exhaustion after day participating in physical and occupational therapy As ago exam is unremarkable for any acute findings no focal neurologic deficits or weaknesses Vital signs are within normal limits CBC and CMP are baseline for patient EKG is unremarkable. Patient has been awake alert oriented eating and drinking throughout his stay in the emergency department. At this time there is no indication for admission to hospital patient is cleared for discharge home. - Lab Data Result diagrams: 10/31/19 21:41 10/31/19 21:41 Lab Results 10/31/19 10/31/19 10/31/19 Range/Units 21:41 21:41 21:43 WBC 6.3 (3.8-10.6) k/uL RBC 4.10 L (4.30-5.90) m/uL Hgb 11.3 L (13.0-17.5) gm/dL Hct 35.5 L (39.0-53.0) % MCV 86.7 (80.0-100.0) fL MCH 27.6 (25.0-35.0) pg MCHC 31.8 (31.0-37.0) g/dL RDW 13.5 (11.5-15.5) % Plt Count 290 (150-450) k/uL Neutrophils % 71 % Lymphocytes % 16 % Monocytes % 6 % Eosinophils % 4 % Basophils % 1 % Neutrophils # 4.5 (1.3-7.7) k/uL Lymphocytes # 1.0 (1.0-4.8) k/uL Monocytes # 0.4 (0-1.0) k/uL Eosinophils # 0.3 (0-0.7) k/uL Basophils # 0.1 (0-0.2) k/uL Hypochromasia Slight Sodium 137 (137-145) mmol/L Potassium 4.2 (3.5-5.1) mmol/L Chloride 92 L (98-107) mmol/L Carbon Dioxide 41 H* (22-30) mmol/L Anion Gap 4 mmol/L BUN 18 (9-20) mg/dL Creatinine 0.79 (0.66-1.25) mg/dL Est GFR (CKD-EPI)AfAm >90 (>60 ml/min/1.73 sqM) Est GFR (CKD-EPI)NonAf >90 (>60 ml/min/1.73 sqM) Glucose 98 (74-99) mg/dL POC Glucose (mg/dL) 99 (75-99) mg/dL POC Glu Granulator Machine Operator ID [place] Calcium 9.6 (8.4-10.2) mg/dL Magnesium 1.6 (1.6-2.3) mg/dL Total Bilirubin 0.4 (0.2-1.3) mg/dL AST 27 (17-59) U/L ALT 35 (21-72) U/L Alkaline Phosphatase 92 (38-126) U/L Total Protein 6.1 L (6.3-8.2) g/dL Albumin 3.4 L (3.5-5.0) g/dL TSH 1.250 (0.465-4.680) mIU/L 11/01/19 Range/Units 00:12 WBC (3.8-10.6) k/uL RBC (4.30-5.90) m/uL Hgb (13.0-17.5) gm/dL Hct (39.0-53.0) % MCV (80.0-100.0) fL MCH (25.0-35.0) pg MCHC (31.0-37.0) g/dL RDW (11.5-15.5) % Plt Count (150-450) k/uL Neutrophils % % Lymphocytes % % Monocytes % % Eosinophils % % Basophils % % Neutrophils # (1.3-7.7) k/uL Lymphocytes # (1.0-4.8) k/uL Monocytes # (0-1.0) k/uL Eosinophils # (0-0.7) k/uL Basophils # (0-0.2) k/uL Hypochromasia Sodium (137-145) mmol/L Potassium (3.5-5.1) mmol/L Chloride (98-107) mmol/L Carbon Dioxide (22-30) mmol/L Anion Gap mmol/L BUN (9-20) mg/dL Creatinine (0.66-1.25) mg/dL Est GFR (CKD-EPI)AfAm (>60 ml/min/1.73 sqM) Est GFR (CKD-EPI)NonAf (>60 ml/min/1.73 sqM) Glucose (74-99) mg/dL POC Glucose (mg/dL) 111 H (75-99) mg/dL POC Glu Granulator Machine Operator ID Allenly, Chayo Calcium (8.4-10.2) mg/dL Magnesium (1.6-2.3) mg/dL Total Bilirubin (0.2-1.3) mg/dL AST (17-59) U/L ALT (21-72) U/L Alkaline Phosphatase (38-126) U/L Total Protein (6.3-8.2) g/dL Albumin (3.5-5.0) g/dL TSH (0.465-4.680) mIU/L Disposition Clinical Impression: Generalized weakness, Debility, Physical deconditioning Disposition: HOME SELF-CARE Condition: Stable Instructions (If sedation given, give patient instructions): Weakness (ED) Additional Instructions: Get plenty of rest tonight Make sure you stay hydrated Follow up with your PCP by the end of the week Return to the ER for any worsening of your symptoms or development of new concerning symptoms Is patient prescribed a controlled substance at d/c from ED?: No Referrals: Hugo Bailey MD [Primary Care Provider] - 1-2 days
[2019-11-01 00:14] LABS: Glucose,Whole Blood 111 mg/dL (75-99)
[2019-11-01 00:39] VITALS: BP 100/60; PULSE 75; RESP 18
== END 2019-11-01 01:02 | disposition home or self-care (01) ==
LOC: EC 21:21
DX: R53.1 Weakness (principal); R53.81 Other malaise; R60.0 Localized edema; R45.89 Other symptoms and signs involving emotional state; E66.01 Morbid (severe) obesity due to excess calories; I48.0 Paroxysmal atrial fibrillation; J44.9 Chronic obstructive pulmonary disease, unspecified; I13.0 Hypertensive heart and chronic kidney disease with heart failure and stage 1 through stage 4 chronic kidney disease, or unspecified chronic kidney disease; I50.9 Heart failure, unspecified; N18.3 Chronic kidney disease, stage 3 (moderate); M19.90 Unspecified osteoarthritis, unspecified site; E78.5 Hyperlipidemia, unspecified; G62.9 Polyneuropathy, unspecified; F31.9 Bipolar disorder, unspecified; F41.0 Panic disorder [episodic paroxysmal anxiety]; F25.9 Schizoaffective disorder, unspecified; Z87.891 Personal history of nicotine dependence; Z88.5 Allergy status to narcotic agent; Z88.0 Allergy status to penicillin; Z88.8 Allergy status to other drugs, medicaments and biological substances; Z79.01 Long term (current) use of anticoagulants; Z79.52 Long term (current) use of systemic steroids; Z79.82 Long term (current) use of aspirin; Z79.899 Other long term (current) drug therapy; Z86.73 Personal history of transient ischemic attack (TIA), and cerebral infarction without residual deficits; Z85.828 Personal history of other malignant neoplasm of skin; Z86.14 Personal history of Methicillin resistant Staphylococcus aureus infection; Z86.711 Personal history of pulmonary embolism; Z86.718 Personal history of other venous thrombosis and embolism; Z96.641 Presence of right artificial hip joint; Z68.42 Body mass index [BMI] 45.0-49.9, adult; Z74.01 Bed confinement status; Z98.890 Other specified postprocedural states
CPT/HCPCS: 36415; 80053; 83735; 84443; 85025; 93005; 99285

== ENCOUNTER 2019-11-11 21:03 | Emergency (ER) | payer MEDICARE, BC ==
[2019-11-11 21:57] LABS: Appearance,Urine Clear (Clear); Bilirubin,Urine Negative (Negative); Blood,Urine Negative (Negative); Color,Urine Light Yellow; Glucose,Urine (UA) Negative (Negative); Ketones,Urine Negative (Negative); Leukocyte Esterase,Urine Negative (Negative); Nitrite,Urine Negative (Negative); PH, Urine 6.5 (5.0-8.0); Protein,Urine Negative (Negative); Specific Gravity,Urine 1.007 (1.001-1.035); Urobilinogen,Urine <2.0 mg/dL (<2.0)
[2019-11-11 21:58] LABS: Basophils % (A) 0 %; Eosinophils # (A) 0.3 k/uL (0-0.7); Eosinophils % (A) 4 %; HCT 38.7 % (39.0-53.0); HGB 12.4 gm/dL (13.0-17.5); Hypochromasia Slight; Lymphocytes # (A) 1.2 k/uL (1.0-4.8); Lymphocytes % (A) 16 %; MCH 27.5 pg (25.0-35.0); MCV 85.8 fL (80.0-100.0); Mean Platelet Volume 7.4; Monocytes # (A) 0.5 k/uL (0-1.0); Monocytes % (A) 7 %; Neutrophils # (A) 5.2 k/uL (1.3-7.7); Neutrophils % (A) 72 %; Platelet Count 245 k/uL (150-450); RDW 13.6 % (11.5-15.5); WBC 7.3 k/uL (3.8-10.6)
[2019-11-11 22:10] LABS: Partial Thromboplastin Time 28.7 sec (22.0-30.0); Prothrombin Time 10.5 sec (9.0-12.0)
--- NOTE | 2019-11-11 22:12 | XR ---
EXAMINATION TYPE: XR chest 1V portable DATE OF EXAM: 11/11/2019 COMPARISON: 10/18/2019 HISTORY: Weakness short of breath TECHNIQUE: Single view FINDINGS: There is a moderate right side pleural effusion. Heart appears enlarged. There is no heart failure. There are chest leads. IMPRESSION: Moderate size right pleural effusion unchanged. No obvious heart failure. Right lower lob e pneumonia is also possible.
[2019-11-11 22:28] LABS: ALT 29 U/L (4-49); AST 32 U/L (17-59); African American GFR (CKD) >90 (>60 ml/min/1.73 sqM); Albumin 3.9 g/dL (3.5-5.0); Alkaline Phosphatase 93 U/L (38-126); Anion Gap 7 mmol/L; Blood Urea Nitrogen 25 mg/dL (9-20); Calcium 9.4 mg/dL (8.4-10.2); Carbon Dioxide 39 mmol/L (22-30); Chloride 90 mmol/L (98-107); Glucose 109 mg/dL (74-99); Non-African American GFR(CKD) >90 (>60 ml/min/1.73 sqM); Sodium 136 mmol/L (137-145); Total Bilirubin 0.6 mg/dL (0.2-1.3); Total Protein 6.8 g/dL (6.3-8.2)
[2019-11-11 22:34] LABS: Potassium 4.1 mmol/L (3.5-5.1)
[2019-11-11 22:38] VITALS: BP 110/73; PULSE 72; RESP 18; TEMP 98.9
[2019-11-11 22:46] LABS: Glucose,Whole Blood 117 mg/dL (75-99)
--- NOTE | 2019-11-11 22:55 | ED ---
Weakness HPI - General Chief complaint: Weakness Stated complaint: SOB Time Seen by Provider: 11/11/19 21:13 Source: EMS Mode of arrival: EMS Limitations: physical limitation - History of Present Illness Initial comments: this patient is a 59-year-old man who presents to be evaluated for a wave of nausea that he states came over him lasting between 5 and 10 minutes. He states that this was followed by having a feeling of fatigue and generalized weakness. Patient was concerned that he was dying and then had family activated EMS. The patient states that the wave nausea is largely passed. He is still feeling fatigued. There is no focal weakness. He does have significant debility at baseline and is bedbound. He states he has not walked in quite some time. MD Complaint: generalized weakness, lack of energy -: minutes(s) Location: generalized Improves with: none Worsens with: none Associated Symptoms: nausea/vomiting - Related Data Home Medications Medication Instructions Recorded Confirmed OLANZapine [ZyPREXA] 20 mg PO HS 03/18/19 10/31/19 Rivaroxaban [Xarelto] 20 mg PO DAILY 07/14/19 10/31/19 DULoxetine HCL [Cymbalta] 40 mg PO DAILY 07/15/19 10/31/19 Diltiazem HCl 30 mg PO Q6H 07/15/19 10/31/19 Albuterol Inhaler [Ventolin Hfa 2 puff INHALATION RT-Q6H PRN 08/03/19 10/31/19 Inhaler] Aspirin EC [Ecotrin Low Dose] 81 mg PO DAILY 08/03/19 10/31/19 Atorvastatin [Lipitor] 10 mg PO HS 08/03/19 10/31/19 Ergocalciferol (Vitamin D2) 50,000 unit PO WE 08/03/19 10/31/19 [Vitamin D2] Hydrocortisone [Cortef] 10 mg PO BID 08/03/19 10/31/19 Lidocaine 5% Patch [Lidoderm 5% 1 patch TOPICAL DAILY 08/03/19 10/31/19 Patch] Melatonin 5 mg PO HS 08/03/19 10/31/19 Tiotropium 18 Mcg/Puff [Spiriva] 1 puff INHALATION RT-DAILY 08/03/19 10/31/19 Albuterol Nebulized [Ventolin 2.5 mg INHALATION RT-Q6H PRN 09/07/19 10/31/19 Nebulized] Potassium Chloride ER [K-Dur 20] 20 meq PO TID 09/18/19 10/31/19 Furosemide [Lasix] 40 mg PO DAILY 10/31/19 10/31/19 Gabapentin [Neurontin] 400 mg PO BID 10/31/19 10/31/19 HYDROcodone/APAP 7.5-325MG [[place] 1 tab PO Q6HR PRN 10/31/19 10/31/19 7.5-325] busPIRone HCL 15 mg PO TID 10/31/19 10/31/19 Previous Rx's Medication Instructions Recorded Ciprofloxacin HCl [Cipro] 500 mg PO Q12H 3 Days #10 tab 09/27/19 Allergies Allergy/AdvReac Type Severity Reaction Status Date / Time codeine Allergy Severe Swelling Verified 11/11/19 21:17 OF THROAT WITH COUGH SYRUP chlorpheniramine Allergy Unknown Verified 11/11/19 21:17 febuxostat [From Uloric] Allergy Unknown Verified 11/11/19 21:17 phenylephrine Allergy Unknown Verified 11/11/19 21:17 piperacillin sodium Allergy Unknown Verified 11/11/19 21:17 [From Zosyn] tazobactam sodium Allergy Unknown Verified 11/11/19 21:17 [From Zosyn] Review of Systems ROS Statement: Those systems with pertinent positive or pertinent negative responses have been documented in the HPI. ROS Other: All systems not noted in ROS Statement are negative. Constitutional: Reports: as per HPI, weakness. Denies: fever, chills Respiratory: Denies: cough, dyspnea Cardiovascular: Denies: chest pain, palpitations, edema, syncope Gastrointestinal: Reports: nausea. Denies: abdominal pain, vomiting, diarrhea Genitourinary: Denies: dysuria, hematuria Musculoskeletal: Denies: back pain Skin: Denies: rash Neurological: Denies: headache, weakness, numbness Psychiatric: Reports: anxiety Past Medical History Past Medical History: Atrial Fibrillation, Asthma, Cancer, Heart Failure, COPD, CVA/TIA, Diabetes Mellitus, Deep Vein Thrombosis (DVT), GERD/Reflux, GI Bleed, Hyperlipidemia, Hypertension, Osteoarthritis (OA), Pneumonia, Pulmonary Embolus (PE), Renal Disease, Respiratory Disorder, Sleep Apnea/CPAP/BIPAP Additional Past Medical History / Comment(s): Pt recently admitted to [facility] on 08/05/19 with acute on chronic CHF/abnormal ECHO-see report/paroxysmal afib/bilateral pleural effusions with R sided thoracentesis. Other hx: Pt denies diabetes stating he has hypoglycemia/pt recently transfered to [facility] for endocrinology consultation-states he wasn't told anything new, states he has bilateral feet neuropathy, colitis, chronic diffuse abdominal pain, chronic generalized pain, fluid retention, bedbound, lower GI bleed, hiatal hernia, DVT in leg which traveled to his lung, DDD, scoliosis, ALEXIS without device, CKD stage III, pseudoseizures with past extensive work up thru [facility], basal cell skin cancer removed from face. History of Any Multi-Drug Resistant Organisms: C-DIFF, MRSA Date of last positivie culture/infection: mrsa 2018, c-diff 2019 MDRO Source:: sputum, stool Past Surgical History: Appendectomy, Bariatric Surgery, Heart Catheterization, Hernia Repair, Joint Replacement, Orthopedic Surgery Additional Past Surgical History / Comment(s): Gastric sleeve in 2013, L inguinal hernia repair, R elbow surgery x2, total R hip arthroplasty, L knee arthroscopy/ACL surgery, R ankle ORIF, EGD, colonoscopy, basal cell skin cancer from face, surgery for varicele. Past Anesthesia/Blood Transfusion Reactions: Previous Problems w/ Anesthesia Additional Past Anesthesia/Blood Transfusion Reaction / Comment(s): STATES HE WAS TOLD HE WAS A DIFFICULT INTUBATION WITH GASTRIC SLEEVE SURGERY, Past Psychological History: Anxiety, Bipolar, Depression, Panic Disorder, Schizoaffective Disorder Smoking Status: Former smoker Past Alcohol Use History: Abuse, Heavy Past Drug Use History: None Reported - Past Family History Father Family Medical History: Cancer Additional Family Medical History / Comment(s): LUNG CA Mother Family Medical History: Coronary Artery Disease (CAD) Additional Family Medical History / Comment(s): Mother of an infection. General Exam Limitations: physical limitation General appearance: alert, in no apparent distress Head exam: Present: atraumatic, normocephalic Eye exam: Present: normal appearance. Absent: scleral icterus, conjunctival injection Respiratory exam: Present: normal lung sounds bilaterally. Absent: respiratory distress, wheezes, rales, rhonchi, stridor Cardiovascular Exam: Present: regular rate, normal rhythm, normal heart sounds. Absent: systolic murmur, diastolic murmur, rubs, gallop GI/Abdominal exam: Present: soft. Absent: distended, tenderness, guarding, rebound Extremities exam: Present: normal inspection, normal capillary refill. Absent: pedal edema, calf tenderness Back exam: Present: normal inspection. Absent: CVA tenderness (R), CVA tenderness (L) Neurological exam: Present: alert Skin exam: Present: warm, dry, intact, normal color. Absent: rash Course Vital Signs 11/11/19 11/11/19 21:13 22:37 Temperature 98.6 F 98.9 F Pulse Rate 71 72 Respiratory 16 18 Rate Blood Pressure 110/68 110/73 O2 Sat by Pulse 96 97 Oximetry EKG Findings - EKG Results: EKG: interpreted by ZEFERINO, sinus rhythm (rate 70 bpm), normal axis, normal QRS, normal ST/T, no acute changes, not changed from: (similar to 10/31/2019) Medical Decision Making - Lab Data Result diagrams: 11/11/19 21:20 11/11/19 21:50 Lab Results 11/11/19 11/11/19 11/11/19 Range/Units 21:20 21:20 21:20 WBC 7.3 (3.8-10.6) k/uL RBC 4.50 (4.30-5.90) m/uL Hgb 12.4 L (13.0-17.5) gm/dL Hct 38.7 L (39.0-53.0) % MCV 85.8 (80.0-100.0) fL MCH 27.5 (25.0-35.0) pg MCHC 32.0 (31.0-37.0) g/dL RDW 13.6 (11.5-15.5) % Plt Count 245 (150-450) k/uL Neutrophils % 72 % Lymphocytes % 16 % Monocytes % 7 % Eosinophils % 4 % Basophils % 0 % Neutrophils # 5.2 (1.3-7.7) k/uL Lymphocytes # 1.2 (1.0-4.8) k/uL Monocytes # 0.5 (0-1.0) k/uL Eosinophils # 0.3 (0-0.7) k/uL Basophils # 0.0 (0-0.2) k/uL Hypochromasia Slight PT 10.5 (9.0-12.0) sec INR 1.0 (<1.2) APTT 28.7 (22.0-30.0) sec Sodium (137-145) mmol/L Potassium (3.5-5.1) mmol/L Chloride (98-107) mmol/L Carbon Dioxide (22-30) mmol/L Anion Gap mmol/L BUN (9-20) mg/dL Creatinine (0.66-1.25) mg/dL Est GFR (CKD-EPI)AfAm (>60 ml/min/1.73 sqM) Est GFR (CKD-EPI)NonAf (>60 ml/min/1.73 sqM) Glucose (74-99) mg/dL POC Glucose (mg/dL) (75-99) mg/dL POC Glu Clinical Research Scientist ID Plasma Lactic Acid Benjie (0.7-2.0) mmol/L Calcium (8.4-10.2) mg/dL Total Bilirubin (0.2-1.3) mg/dL AST (17-59) U/L ALT (4-49) U/L Alkaline Phosphatase (38-126) U/L Troponin I <0.012 (0.000-0.034) ng/mL Total Protein (6.3-8.2) g/dL Albumin (3.5-5.0) g/dL Urine Color Urine Appearance (Clear) Urine pH (5.0-8.0) Ur Specific Circle (1.001-1.035) Urine Protein (Negative) Urine Glucose (UA) (Negative) Urine Ketones (Negative) Urine Blood (Negative) Urine Nitrite (Negative) Urine Bilirubin (Negative) Urine Urobilinogen (<2.0) mg/dL Ur Leukocyte Esterase (Negative) 11/11/19 11/11/19 11/11/19 Range/Units 21:25 21:50 21:50 WBC (3.8-10.6) k/uL RBC (4.30-5.90) m/uL Hgb (13.0-17.5) gm/dL Hct (39.0-53.0) % MCV (80.0-100.0) fL MCH (25.0-35.0) pg MCHC (31.0-37.0) g/dL RDW (11.5-15.5) % Plt Count (150-450) k/uL Neutrophils % % Lymphocytes % % Monocytes % % Eosinophils % % Basophils % % Neutrophils # (1.3-7.7) k/uL Lymphocytes # (1.0-4.8) k/uL Monocytes # (0-1.0) k/uL Eosinophils # (0-0.7) k/uL Basophils # (0-0.2) k/uL Hypochromasia PT (9.0-12.0) sec INR (<1.2) APTT (22.0-30.0) sec Sodium 136 L (137-145) mmol/L Potassium 4.1 (3.5-5.1) mmol/L Chloride 90 L (98-107) mmol/L Carbon Dioxide 39 H (22-30) mmol/L Anion Gap 7 mmol/L BUN 25 H (9-20) mg/dL Creatinine 0.67 (0.66-1.25) mg/dL Est GFR (CKD-EPI)AfAm >90 (>60 ml/min/1.73 sqM) Est GFR (CKD-EPI)NonAf >90 (>60 ml/min/1.73 sqM) Glucose 109 H (74-99) mg/dL POC Glucose (mg/dL) (75-99) mg/dL POC Glu Clinical Research Scientist ID Plasma Lactic Acid Benjie 1.4 (0.7-2.0) mmol/L Calcium 9.4 (8.4-10.2) mg/dL Total Bilirubin 0.6 (0.2-1.3) mg/dL AST 32 (17-59) U/L ALT 29 (4-49) U/L Alkaline Phosphatase 93 (38-126) U/L Troponin I (0.000-0.034) ng/mL Total Protein 6.8 (6.3-8.2) g/dL Albumin 3.9 (3.5-5.0) g/dL Urine Color Light Yellow Urine Appearance Clear (Clear) Urine pH 6.5 (5.0-8.0) Ur Specific [place] 1.007 (1.001-1.035) Urine Protein Negative (Negative) Urine Glucose (UA) Negative (Negative) Urine Ketones Negative (Negative) Urine Blood Negative (Negative) Urine Nitrite Negative (Negative) Urine Bilirubin Negative (Negative) Urine Urobilinogen <2.0 (<2.0) mg/dL Ur Leukocyte Esterase Negative (Negative) 11/11/19 Range/Units 22:45 WBC (3.8-10.6) k/uL RBC (4.30-5.90) m/uL Hgb (13.0-17.5) gm/dL Hct (39.0-53.0) % MCV (80.0-100.0) fL MCH (25.0-35.0) pg MCHC (31.0-37.0) g/dL RDW (11.5-15.5) % Plt Count (150-450) k/uL Neutrophils % % Lymphocytes % % Monocytes % % Eosinophils % % Basophils % % Neutrophils # (1.3-7.7) k/uL Lymphocytes # (1.0-4.8) k/uL Monocytes # (0-1.0) k/uL Eosinophils # (0-0.7) k/uL Basophils # (0-0.2) k/uL Hypochromasia PT (9.0-12.0) sec INR (<1.2) APTT (22.0-30.0) sec Sodium (137-145) mmol/L Potassium (3.5-5.1) mmol/L Chloride (98-107) mmol/L Carbon Dioxide (22-30) mmol/L Anion Gap mmol/L BUN (9-20) mg/dL Creatinine (0.66-1.25) mg/dL Est GFR (CKD-EPI)AfAm (>60 ml/min/1.73 sqM) Est GFR (CKD-EPI)NonAf (>60 ml/min/1.73 sqM) Glucose (74-99) mg/dL POC Glucose (mg/dL) 117 H (75-99) mg/dL POC Glu Clinical Research Scientist ID [place] Plasma Lactic Acid Benjie (0.7-2.0) mmol/L Calcium (8.4-10.2) mg/dL Total Bilirubin (0.2-1.3) mg/dL AST (17-59) U/L ALT (4-49) U/L Alkaline Phosphatase (38-126) U/L Troponin I (0.000-0.034) ng/mL Total Protein (6.3-8.2) g/dL Albumin (3.5-5.0) g/dL Urine Color Urine Appearance (Clear) Urine pH (5.0-8.0) Ur Specific Circle (1.001-1.035) Urine Protein (Negative) Urine Glucose (UA) (Negative) Urine Ketones (Negative) Urine Blood (Negative) Urine Nitrite (Negative) Urine Bilirubin (Negative) Urine Urobilinogen (<2.0) mg/dL Ur Leukocyte Esterase (Negative) Disposition Clinical Impression: Nausea, Anxiety Disposition: HOME SELF-CARE Condition: Good Instructions (If sedation given, give patient instructions): Anxiety (ED) Is patient prescribed a controlled substance at d/c from ED?: No Referrals: Hugo Bailey MD [Primary Care Provider] - 1-2 days
== END 2019-11-11 23:15 | disposition home or self-care (01) ==
LOC: EC 21:03
DX: F41.9 Anxiety disorder, unspecified (principal); R11.0 Nausea; E11.22 Type 2 diabetes mellitus with diabetic chronic kidney disease; I13.0 Hypertensive heart and chronic kidney disease with heart failure and stage 1 through stage 4 chronic kidney disease, or unspecified chronic kidney disease; N18.3 Chronic kidney disease, stage 3 (moderate); I50.9 Heart failure, unspecified; J44.9 Chronic obstructive pulmonary disease, unspecified; I48.0 Paroxysmal atrial fibrillation; G47.30 Sleep apnea, unspecified; E78.5 Hyperlipidemia, unspecified; F31.9 Bipolar disorder, unspecified; Z79.82 Long term (current) use of aspirin; Z79.01 Long term (current) use of anticoagulants; Z79.899 Other long term (current) drug therapy; Z88.1 Allergy status to other antibiotic agents; Z88.5 Allergy status to narcotic agent; Z88.8 Allergy status to other drugs, medicaments and biological substances; Z87.891 Personal history of nicotine dependence; Z96.641 Presence of right artificial hip joint; Z98.84 Bariatric surgery status; Z86.711 Personal history of pulmonary embolism; Z86.718 Personal history of other venous thrombosis and embolism; Z99.89 Dependence on other enabling machines and devices
CPT/HCPCS: 36415; 71045; 80053; 81003; 83605; 84484; 85025; 85610; 85730; 93005; 99285

== ENCOUNTER 2020-01-07 21:04 | Emergency (ER) | payer MEDICARE, BC ==
--- NOTE | 2020-01-07 21:33 | ED ---
Weakness HPI - General Chief complaint: Chest Pain Stated complaint: Chest Pain Time Seen by Provider: 01/07/20 21:06 Source: EMS, RN notes reviewed, old records reviewed Mode of arrival: EMS Limitations: no limitations - History of Present Illness Initial comments: This is a 51-year-old male DF for evaluation patient wanted versus premature for multiple ER admissions inpatient admissions for significant illness including everything from sepsis urinary tract infections CHF fluid hydration, overload. Patient states this has been feeling well as of late discharged from the hospital by month ago at this time. Denying any fevers but occasional is of chest pain it is generalized pain. No nausea vomiting or diarrhea good urinary output patient does admit to increased swelling and bilateral lower extremities as well as just generalized swelling. MD Complaint: generalized weakness -: days(s) Location: generalized Severity: mild Severity scale (1-10): 3 Quality: aching Consistency: constant Improves with: none Associated Symptoms: denies other symptoms - Related Data Home Medications Medication Instructions Recorded Confirmed OLANZapine [ZyPREXA] 20 mg PO HS 03/18/19 10/31/19 Rivaroxaban [Xarelto] 20 mg PO DAILY 07/14/19 10/31/19 DULoxetine HCL [Cymbalta] 40 mg PO DAILY 07/15/19 10/31/19 Diltiazem HCl 30 mg PO Q6H 07/15/19 10/31/19 Albuterol Inhaler [Ventolin Hfa 2 puff INHALATION RT-Q6H PRN 08/03/19 10/31/19 Inhaler] Aspirin EC [Ecotrin Low Dose] 81 mg PO DAILY 08/03/19 10/31/19 Atorvastatin [Lipitor] 10 mg PO HS 08/03/19 10/31/19 Ergocalciferol (Vitamin D2) 50,000 unit PO WE 08/03/19 10/31/19 [Vitamin D2] Hydrocortisone [Cortef] 10 mg PO BID 08/03/19 10/31/19 Lidocaine 5% Patch [Lidoderm 5% 1 patch TOPICAL DAILY 08/03/19 10/31/19 Patch] Melatonin 5 mg PO HS 08/03/19 10/31/19 Tiotropium 18 Mcg/Puff [Spiriva] 1 puff INHALATION RT-DAILY 08/03/19 10/31/19 Albuterol Nebulized [Ventolin 2.5 mg INHALATION RT-Q6H PRN 09/07/19 10/31/19 Nebulized] Potassium Chloride ER [K-Dur 20] 20 meq PO TID 09/18/19 10/31/19 Furosemide [Lasix] 40 mg PO DAILY 10/31/19 10/31/19 Gabapentin [Neurontin] 400 mg PO BID 10/31/19 10/31/19 HYDROcodone/APAP 7.5-325MG [[place] 1 tab PO Q6HR PRN 10/31/19 10/31/19 7.5-325] busPIRone HCL 15 mg PO TID 10/31/19 10/31/19 Previous Rx's Medication Instructions Recorded Ciprofloxacin HCl [Cipro] 500 mg PO Q12H 3 Days #10 tab 09/27/19 Allergies Allergy/AdvReac Type Severity Reaction Status Date / Time codeine Allergy Severe Swelling Verified 11/11/19 21:17 OF THROAT WITH COUGH SYRUP chlorpheniramine Allergy Unknown Verified 11/11/19 21:17 febuxostat [From Uloric] Allergy Unknown Verified 11/11/19 21:17 phenylephrine Allergy Unknown Verified 11/11/19 21:17 piperacillin sodium Allergy Unknown Verified 11/11/19 21:17 [From Zosyn] tazobactam sodium Allergy Unknown Verified 11/11/19 21:17 [From Zosyn] Review of Systems ROS Statement: Those systems with pertinent positive or pertinent negative responses have been documented in the HPI. ROS Other: All systems not noted in ROS Statement are negative. Past Medical History Past Medical History: Atrial Fibrillation, Asthma, Cancer, Heart Failure, COPD, CVA/TIA, Diabetes Mellitus, Deep Vein Thrombosis (DVT), GERD/Reflux, GI Bleed, Hyperlipidemia, Hypertension, Osteoarthritis (OA), Pneumonia, Pulmonary Embolus (PE), Renal Disease, Respiratory Disorder, Sleep Apnea/CPAP/BIPAP Additional Past Medical History / Comment(s): Pt recently admitted to [facility] on 08/05/19 with acute on chronic CHF/abnormal ECHO-see report/paroxysmal afib/bilateral pleural effusions with R sided thoracentesis. Other hx: Pt denies diabetes stating he has hypoglycemia/pt recently transfered to [facility] for endocrinology consultation-states he wasn't told anything new, states he has bilateral feet neuropathy, colitis, chronic diffuse abdominal pain, chronic generalized pain, fluid retention, bedbound, lower GI bleed, hiatal hernia, DVT in leg which traveled to his lung, DDD, scoliosis, ALEXIS without device, CKD stage III, pseudoseizures with past extensive work up thru [facility], basal cell skin cancer removed from face. History of Any Multi-Drug Resistant Organisms: C-DIFF, MRSA Date of last positivie culture/infection: mrsa 2019, c-diff 2019 MDRO Source:: sputum, stool Past Surgical History: Appendectomy, Bariatric Surgery, Heart Catheterization, Hernia Repair, Joint Replacement, Orthopedic Surgery Additional Past Surgical History / Comment(s): Gastric sleeve in 2014, L inguinal hernia repair, R elbow surgery x2, total R hip arthroplasty, L knee arthroscopy/ACL surgery, R ankle ORIF, EGD, colonoscopy, basal cell skin cancer from face, surgery for varicele. Past Anesthesia/Blood Transfusion Reactions: Previous Problems w/ Anesthesia Additional Past Anesthesia/Blood Transfusion Reaction / Comment(s): STATES HE WAS TOLD HE WAS A DIFFICULT INTUBATION WITH GASTRIC SLEEVE SURGERY, Past Psychological History: Anxiety, Bipolar, Depression, Panic Disorder, Schizoaffective Disorder Smoking Status: Former smoker Past Alcohol Use History: Abuse, Heavy Past Drug Use History: None Reported - Past Family History Father Family Medical History: Cancer Additional Family Medical History / Comment(s): LUNG CA Mother Family Medical History: Coronary Artery Disease (CAD) Additional Family Medical History / Comment(s): Mother of an infection. General Exam Limitations: no limitations General appearance: alert, in no apparent distress Head exam: Present: atraumatic, normocephalic, normal inspection Eye exam: Present: normal appearance, PERRL, EOMI. Absent: scleral icterus, conjunctival injection, periorbital swelling ENT exam: Present: normal exam, mucous membranes moist Neck exam: Present: normal inspection. Absent: tenderness, meningismus, lymphadenopathy Respiratory exam: Present: normal lung sounds bilaterally. Absent: respiratory distress, wheezes, rales, rhonchi, stridor Cardiovascular Exam: Present: regular rate, normal rhythm, normal heart sounds. Absent: systolic murmur, diastolic murmur, rubs, gallop, clicks GI/Abdominal exam: Present: soft, normal bowel sounds. Absent: distended, tenderness, guarding, rebound, rigid Extremities exam: Present: normal inspection, full ROM, normal capillary refill. Absent: tenderness, pedal edema, joint swelling, calf tenderness Back exam: Present: normal inspection Neurological exam: Present: alert, oriented X3, CN II-XII intact Psychiatric exam: Present: normal affect, normal mood Skin exam: Present: warm, dry, intact, normal color. Absent: rash Course Vital Signs 01/07/20 01/07/20 01/07/20 21:07 22:00 22:15 Temperature 97.8 F 98 F Pulse Rate 68 Respiratory 18 18 Rate Blood Pressure 98/51 O2 Sat by Pulse 98 Oximetry 01/07/20 23:21 Temperature 98.1 F Pulse Rate 71 Respiratory 18 Rate Blood Pressure 108/49 O2 Sat by Pulse 100 Oximetry - Reevaluation(s) Reevaluation #1: Medical records reviewed multiple ER visits for similar symptoms rule out sepsis Patient reevaluated in no distress no new complaints chest pain is relatively resolved Patient informed desire for discharge, agreeable EKG Findings - EKG Comments: EKG Findings:: EKG shows rhythm of 67, FL 162, QRS 1:30, QTC 397 Medical Decision Making - Medical Decision Making 51 female with multiple nonspecific complaints related chest pain and abdominal pain chronic pain back pain, did state he took some marijuana and may experienced some of side effects related to that, patient also always concerned of sepsis as he does have recurrent bouts of sepsis afebrile here in the ER labwork is otherwise insignificant patient can be discharged home - Lab Data Result diagrams: 01/07/20 21:30 01/07/20 21:30 Lab Results 01/07/20 01/07/20 01/07/20 Range/Units 21:30 21:30 21:30 WBC 5.4 (3.8-10.6) k/uL RBC 4.45 (4.30-5.90) m/uL Hgb 12.0 L (13.0-17.5) gm/dL Hct 38.5 L (39.0-53.0) % MCV 86.6 (80.0-100.0) fL MCH 26.9 (25.0-35.0) pg MCHC 31.1 (31.0-37.0) g/dL RDW 15.0 (11.5-15.5) % Plt Count 225 (150-450) k/uL Neutrophils % 69 % Lymphocytes % 20 % Monocytes % 6 % Eosinophils % 3 % Basophils % 1 % Neutrophils # 3.8 (1.3-7.7) k/uL Lymphocytes # 1.1 (1.0-4.8) k/uL Monocytes # 0.3 (0-1.0) k/uL Eosinophils # 0.1 (0-0.7) k/uL Basophils # 0.0 (0-0.2) k/uL PT 10.0 (9.0-12.0) sec INR 1.0 (<1.2) APTT 26.6 (22.0-30.0) sec Sodium 136 L (137-145) mmol/L Potassium 3.6 (3.5-5.1) mmol/L Chloride 90 L (98-107) mmol/L Carbon Dioxide 41 H* (22-30) mmol/L Anion Gap 5 mmol/L BUN 23 H (9-20) mg/dL Creatinine 0.99 (0.66-1.25) mg/dL Est GFR (CKD-EPI)AfAm >90 (>60 ml/min/1.73 sqM) Est GFR (CKD-EPI)NonAf 84 (>60 ml/min/1.73 sqM) Glucose 113 H (74-99) mg/dL Calcium 9.5 (8.4-10.2) mg/dL Phosphorus 3.5 (2.5-4.5) mg/dL Magnesium 1.8 (1.6-2.3) mg/dL Total Bilirubin 0.5 (0.2-1.3) mg/dL AST 36 (17-59) U/L ALT 40 (4-49) U/L Alkaline Phosphatase 129 H (38-126) U/L Creatine Kinase 26 L (55-170) U/L Troponin I (0.000-0.034) ng/mL Total Protein 6.6 (6.3-8.2) g/dL Albumin 3.8 (3.5-5.0) g/dL TSH 0.993 (0.465-4.680) mIU/L Urine Color Urine Appearance (Clear) Urine pH (5.0-8.0) Ur Specific [place] (1.001-1.035) Urine Protein (Negative) Urine Glucose (UA) (Negative) Urine Ketones (Negative) Urine Blood (Negative) Urine Nitrite (Negative) Urine Bilirubin (Negative) Urine Urobilinogen (<2.0) mg/dL Ur Leukocyte Esterase (Negative) 01/07/20 01/07/20 Range/Units 21:30 21:30 WBC (3.8-10.6) k/uL RBC (4.30-5.90) m/uL Hgb (13.0-17.5) gm/dL Hct (39.0-53.0) % MCV (80.0-100.0) fL MCH (25.0-35.0) pg MCHC (31.0-37.0) g/dL RDW (11.5-15.5) % Plt Count (150-450) k/uL Neutrophils % % Lymphocytes % % Monocytes % % Eosinophils % % Basophils % % Neutrophils # (1.3-7.7) k/uL Lymphocytes # (1.0-4.8) k/uL Monocytes # (0-1.0) k/uL Eosinophils # (0-0.7) k/uL Basophils # (0-0.2) k/uL PT (9.0-12.0) sec INR (<1.2) APTT (22.0-30.0) sec Sodium (137-145) mmol/L Potassium (3.5-5.1) mmol/L Chloride (98-107) mmol/L Carbon Dioxide (22-30) mmol/L Anion Gap mmol/L BUN (9-20) mg/dL Creatinine (0.66-1.25) mg/dL Est GFR (CKD-EPI)AfAm (>60 ml/min/1.73 sqM) Est GFR (CKD-EPI)NonAf (>60 ml/min/1.73 sqM) Glucose (74-99) mg/dL Calcium (8.4-10.2) mg/dL Phosphorus (2.5-4.5) mg/dL Magnesium (1.6-2.3) mg/dL Total Bilirubin (0.2-1.3) mg/dL AST (17-59) U/L ALT (4-49) U/L Alkaline Phosphatase (38-126) U/L Creatine Kinase (55-170) U/L Troponin I <0.012 (0.000-0.034) ng/mL Total Protein (6.3-8.2) g/dL Albumin (3.5-5.0) g/dL TSH (0.465-4.680) mIU/L Urine Color Light Yellow Urine Appearance Clear (Clear) Urine pH 6.5 (5.0-8.0) Ur Specific [place] 1.002 (1.001-1.035) Urine Protein Negative (Negative) Urine Glucose (UA) Negative (Negative) Urine Ketones Negative (Negative) Urine Blood Negative (Negative) Urine Nitrite Negative (Negative) Urine Bilirubin Negative (Negative) Urine Urobilinogen <2.0 (<2.0) mg/dL Ur Leukocyte Esterase Negative (Negative) - Radiology Data Radiology results: report reviewed (Chest x-ray is negative for acute disease), image reviewed Disposition Clinical Impression: Atypical chest pain Disposition: HOME SELF-CARE Condition: Good Instructions (If sedation given, give patient instructions): Chest Pain (ED) Is patient prescribed a controlled substance at d/c from ED?: No Referrals: Hugo Bailey MD [Primary Care Provider] - 1-2 days
[2020-01-07 21:45] LABS: Basophils % (A) 1 %; Eosinophils # (A) 0.1 k/uL (0-0.7); Eosinophils % (A) 3 %; HCT 38.5 % (39.0-53.0); Lymphocytes # (A) 1.1 k/uL (1.0-4.8); Lymphocytes % (A) 20 %; MCH 26.9 pg (25.0-35.0); MCHC 31.1 g/dL (31.0-37.0); MCV 86.6 fL (80.0-100.0); Mean Platelet Volume 8.3; Monocytes # (A) 0.3 k/uL (0-1.0); Monocytes % (A) 6 %; Neutrophils # (A) 3.8 k/uL (1.3-7.7); Neutrophils % (A) 69 %; Platelet Count 225 k/uL (150-450); RBC 4.45 m/uL (4.30-5.90); WBC 5.4 k/uL (3.8-10.6)
[2020-01-07 21:46] LABS: Appearance,Urine Clear (Clear); Bilirubin,Urine Negative (Negative); Blood,Urine Negative (Negative); Color,Urine Light Yellow; Glucose,Urine (UA) Negative (Negative); Ketones,Urine Negative (Negative); Leukocyte Esterase,Urine Negative (Negative); Nitrite,Urine Negative (Negative); PH, Urine 6.5 (5.0-8.0); Protein,Urine Negative (Negative); Specific Gravity,Urine 1.002 (1.001-1.035); Urobilinogen,Urine <2.0 mg/dL (<2.0)
--- NOTE | 2020-01-07 21:54 | XR ---
EXAMINATION TYPE: XR chest 2V DATE OF EXAM: 01/07/2020 COMPARISON: 11/11/2019 HISTORY: Weakness TECHNIQUE: FINDINGS: There is elevated right diaphragm and blunting of right costophrenic angle. There are chest leads. Heart appears enlarged. IMPRESSION: There is moderate chronic right pleural effusion unchanged compared to last exam. No obvi ous heart failure. Mild cardiomegaly.
[2020-01-07 21:57] LABS: Partial Thromboplastin Time 26.6 sec (22.0-30.0)
[2020-01-07 22:16] VITALS: RESP 18
[2020-01-07 22:23] LABS: ALT 40 U/L (4-49); AST 36 U/L (17-59); African American GFR (CKD) >90 (>60 ml/min/1.73 sqM); Albumin 3.8 g/dL (3.5-5.0); Alkaline Phosphatase 129 U/L (38-126); Blood Urea Nitrogen 23 mg/dL (9-20); Calcium 9.5 mg/dL (8.4-10.2); Chloride 90 mmol/L (98-107); Creatine Kinase 26 U/L (55-170); Glucose 113 mg/dL (74-99); Magnesium 1.8 mg/dL (1.6-2.3); Non-African American GFR(CKD) 84 (>60 ml/min/1.73 sqM); Phosphorus 3.5 mg/dL (2.5-4.5); Potassium 3.6 mmol/L (3.5-5.1); Sodium 136 mmol/L (137-145); Total Bilirubin 0.5 mg/dL (0.2-1.3); Total Protein 6.6 g/dL (6.3-8.2)
[2020-01-07 22:29] LABS: Anion Gap 5 mmol/L
[2020-01-07 22:32] LABS: Carbon Dioxide 41 mmol/L (22-30)
[2020-01-07 23:21] VITALS: BP 108/49; PULSE 71; TEMP 98.1
== END 2020-01-07 23:38 | disposition home or self-care (01) ==
LOC: EC 21:04
DX: R07.89 Other chest pain (principal); R10.9 Unspecified abdominal pain; G89.29 Other chronic pain; M54.9 Dorsalgia, unspecified; F12.90 Cannabis use, unspecified, uncomplicated; R53.1 Weakness; M79.89 Other specified soft tissue disorders; I48.0 Paroxysmal atrial fibrillation; J44.9 Chronic obstructive pulmonary disease, unspecified; I13.0 Hypertensive heart and chronic kidney disease with heart failure and stage 1 through stage 4 chronic kidney disease, or unspecified chronic kidney disease; I50.9 Heart failure, unspecified; N18.3 Chronic kidney disease, stage 3 (moderate); E78.5 Hyperlipidemia, unspecified; M19.90 Unspecified osteoarthritis, unspecified site; G62.9 Polyneuropathy, unspecified; F25.9 Schizoaffective disorder, unspecified; F31.9 Bipolar disorder, unspecified; F41.9 Anxiety disorder, unspecified; Z87.891 Personal history of nicotine dependence; Z88.0 Allergy status to penicillin; Z88.5 Allergy status to narcotic agent; Z88.8 Allergy status to other drugs, medicaments and biological substances; Z79.01 Long term (current) use of anticoagulants; Z79.52 Long term (current) use of systemic steroids; Z79.82 Long term (current) use of aspirin; Z79.899 Other long term (current) drug therapy; Z86.73 Personal history of transient ischemic attack (TIA), and cerebral infarction without residual deficits; Z86.711 Personal history of pulmonary embolism; Z86.718 Personal history of other venous thrombosis and embolism; Z85.828 Personal history of other malignant neoplasm of skin; Z87.09 Personal history of other diseases of the respiratory system; Z74.01 Bed confinement status; Z96.641 Presence of right artificial hip joint; Z95.818 Presence of other cardiac implants and grafts; Z98.890 Other specified postprocedural states; Z82.49 Family history of ischemic heart disease and other diseases of the circulatory system
CPT/HCPCS: 36415; 71046; 80053; 81003; 82550; 83735; 84100; 84443; 84484; 85025; 85610; 85730; 87040; 93005; 99285

== ENCOUNTER 2020-03-24 02:20 | Emergency (ER) | payer MEDICARE, BC ==
[2020-03-24 02:28] VITALS: TEMP 97.6
[2020-03-24] MEDS ORDERED: HYDROmorphone 1 MG/ML 1 ML SYRINGE IVP STA (02:37)
[2020-03-24 02:50] LABS: Basophils % (A) 0 %; Eosinophils # (A) 0.2 k/uL (0-0.7); Eosinophils % (A) 2 %; HCT 43.6 % (39.0-53.0); HGB 13.5 gm/dL (13.0-17.5); Hypochromasia Slight; Lymphocytes # (A) 1.3 k/uL (1.0-4.8); Lymphocytes % (A) 10 %; MCH 28.3 pg (25.0-35.0); MCHC 30.9 g/dL (31.0-37.0); MCV 91.5 fL (80.0-100.0); Monocytes # (A) 0.7 k/uL (0-1.0); Monocytes % (A) 5 %; Neutrophils # (A) 10.2 k/uL (1.3-7.7); Neutrophils % (A) 81 %; Platelet Count 269 k/uL (150-450); RBC 4.76 m/uL (4.30-5.90); RDW 13.9 % (11.5-15.5); WBC 12.6 k/uL (3.8-10.6)
[2020-03-24 03:03] LABS: ALT 26 U/L (4-49); AST 27 U/L (17-59); African American GFR (CKD) >90 (>60 ml/min/1.73 sqM); Albumin 4.3 g/dL (3.5-5.0); Alkaline Phosphatase 147 U/L (38-126); Blood Urea Nitrogen 21 mg/dL (9-20); Calcium 9.2 mg/dL (8.4-10.2); Chloride 86 mmol/L (98-107); Creatine Kinase 37 U/L (55-170); Glucose 149 mg/dL (74-99); INR 0.9 (<1.2); Magnesium 1.8 mg/dL (1.6-2.3); Non-African American GFR(CKD) >90 (>60 ml/min/1.73 sqM); Partial Thromboplastin Time 26.7 sec (22.0-30.0); Potassium 3.4 mmol/L (3.5-5.1); Prothrombin Time 9.8 sec (9.0-12.0); Sodium 137 mmol/L (137-145); Total Bilirubin 0.5 mg/dL (0.2-1.3); Total Protein 7.2 g/dL (6.3-8.2)
[2020-03-24 03:10] LABS: Anion Gap 10 mmol/L
[2020-03-24 03:14] LABS: Carbon Dioxide 41 mmol/L (22-30)
--- NOTE | 2020-03-24 03:16 | ED ---
Chest Pain HPI - General Chief Complaint: Chest Pain Stated Complaint: chest pain Time Seen by Provider: 03/24/20 02:30 Source: patient, EMS Mode of arrival: EMS Limitations: no limitations - History of Present Illness Initial Comments: The patient is a 59-year-old male with multiple medical conditions who presents to the emergency room with reported chest pain. He states it started around 11 PM last night. It is described as a sharp shooting pain in the central portion of his chest. Reports that it is worse when he takes a deep breath and that he feels short of breath. Admits that he has had this pain recurrently. He does have a history of pleural effusions for which he has had paracenteses performed. Last paracentesis was in November. Patient did not attempt to take any medications at home for her symptoms. Denies any provocative factors. Denies any worsening lower trauma edema. No calf pain or swelling. Denies any nausea or vomiting. No history of coronary artery disease. Denies a cough or hemoptysis. No ripping or tearing sensation to his back. Denies abdominal pain. There are no alleviating, precipitating or modifying factors - Related Data Home Medications Medication Instructions Recorded Confirmed OLANZapine [ZyPREXA] 20 mg PO HS 03/18/19 10/31/19 Rivaroxaban [Xarelto] 20 mg PO DAILY 07/14/19 10/31/19 DULoxetine HCL [Cymbalta] 40 mg PO DAILY 07/15/19 10/31/19 Diltiazem HCl 30 mg PO Q6H 07/15/19 10/31/19 Albuterol Inhaler (Mhu) [Ventolin 2 puff INHALATION RT-Q6H PRN 08/03/19 10/31/19 Hfa Inhaler (Mhu)] Aspirin EC [Ecotrin Low Dose] 81 mg PO DAILY 08/03/19 10/31/19 Atorvastatin [Lipitor] 10 mg PO HS 08/03/19 10/31/19 Ergocalciferol (Vitamin D2) 50,000 unit PO WE 08/03/19 10/31/19 [Vitamin D2] Hydrocortisone [Cortef] 10 mg PO BID 08/03/19 10/31/19 Lidocaine 5% Patch [Lidoderm 5% 1 patch TOPICAL DAILY 08/03/19 10/31/19 Patch] Melatonin 5 mg PO HS 08/03/19 10/31/19 Tiotropium 18 Mcg/Puff [Spiriva] 1 puff INHALATION RT-DAILY 08/03/19 10/31/19 Albuterol Nebulized [Ventolin 2.5 mg INHALATION RT-Q6H PRN 09/07/19 10/31/19 Nebulized] Potassium Chloride ER [K-Dur 20] 20 meq PO TID 09/18/19 10/31/19 Furosemide [Lasix] 40 mg PO DAILY 10/31/19 10/31/19 Gabapentin [Neurontin] 400 mg PO BID 10/31/19 10/31/19 HYDROcodone/APAP 7.5-325MG [[place] 1 tab PO Q6HR PRN 10/31/19 10/31/19 7.5-325] busPIRone HCL 15 mg PO TID 10/31/19 10/31/19 Previous Rx's Medication Instructions Recorded Ciprofloxacin HCl [Cipro] 500 mg PO Q12H 3 Days #10 tab 09/27/19 Allergies Allergy/AdvReac Type Severity Reaction Status Date / Time codeine Allergy Severe Swelling Verified 11/11/19 21:17 OF THROAT WITH COUGH SYRUP chlorpheniramine Allergy Unknown Verified 11/11/19 21:17 febuxostat [From Uloric] Allergy Unknown Verified 11/11/19 21:17 phenylephrine Allergy Unknown Verified 11/11/19 21:17 piperacillin sodium Allergy Unknown Verified 11/11/19 21:17 [From Zosyn] tazobactam sodium Allergy Unknown Verified 11/11/19 21:17 [From Zosyn] Review of Systems ROS Statement: Those systems with pertinent positive or pertinent negative responses have been documented in the HPI. ROS Other: All systems not noted in ROS Statement are negative. EKG Findings - EKG Comments: EKG Findings:: EKG demonstrates a normal sinus rhythm with ventricular rate of 76. WA interval 172. QRS 122. QTC of 519. No acute ST segment elevations or depressions concerning for ischemic changes Past Medical History Past Medical History: Atrial Fibrillation, Asthma, Cancer, Heart Failure, COPD, CVA/TIA, Diabetes Mellitus, Deep Vein Thrombosis (DVT), GERD/Reflux, GI Bleed, Hyperlipidemia, Hypertension, Osteoarthritis (OA), Pneumonia, Pulmonary Embolus (PE), Renal Disease, Respiratory Disorder, Sleep Apnea/CPAP/BIPAP Additional Past Medical History / Comment(s): Pt recently admitted to [facility] on 08/05/19 with acute on chronic CHF/abnormal ECHO-see report/paroxysmal afib/bilateral pleural effusions with R sided thoracentesis. Other hx: Pt denies diabetes stating he has hypoglycemia/pt recently transfered to [facility] for endocrinology consultation-states he wasn't told anything new, states he has bilateral feet neuropathy, colitis, chronic diffuse abdominal pain, chronic generalized pain, fluid retention, bedbound, lower GI bleed, hiatal hernia, DVT in leg which traveled to his lung, DDD, scoliosis, ALEXIS without device, CKD stage III, pseudoseizures with past extensive work up thru [facility], basal cell skin cancer removed from face. History of Any Multi-Drug Resistant Organisms: C-DIFF, MRSA Date of last positivie culture/infection: mrsa 2018, c-diff 2019 MDRO Source:: sputum, stool Past Surgical History: Appendectomy, Bariatric Surgery, Heart Catheterization, Hernia Repair, Joint Replacement, Orthopedic Surgery Additional Past Surgical History / Comment(s): Gastric sleeve in 2014, L inguinal hernia repair, R elbow surgery x2, total R hip arthroplasty, L knee arthroscopy/ACL surgery, R ankle ORIF, EGD, colonoscopy, basal cell skin cancer from face, surgery for varicele. Past Anesthesia/Blood Transfusion Reactions: Previous Problems w/ Anesthesia Additional Past Anesthesia/Blood Transfusion Reaction / Comment(s): STATES HE WAS TOLD HE WAS A DIFFICULT INTUBATION WITH GASTRIC SLEEVE SURGERY, Past Psychological History: Anxiety, Bipolar, Depression, Panic Disorder, Schizoaffective Disorder Smoking Status: Former smoker Past Alcohol Use History: Abuse, Heavy Past Drug Use History: Marijuana - Past Family History Father Family Medical History: Cancer Additional Family Medical History / Comment(s): LUNG CA Mother Family Medical History: Coronary Artery Disease (CAD) Additional Family Medical History / Comment(s): Mother of an infection. General Exam Limitations: no limitations General appearance: alert, in no apparent distress, obese Head exam: Present: atraumatic, normocephalic, normal inspection Eye exam: Present: normal appearance, PERRL, EOMI. Absent: scleral icterus, conjunctival injection, periorbital swelling ENT exam: Present: normal exam, mucous membranes moist Neck exam: Present: normal inspection. Absent: tenderness, meningismus, lymphadenopathy Respiratory exam: Present: rales (right lung base). Absent: respiratory distress, wheezes, rhonchi, stridor, accessory muscle use Cardiovascular Exam: Present: regular rate, normal rhythm, normal heart sounds. Absent: systolic murmur, diastolic murmur, rubs, gallop, clicks GI/Abdominal exam: Present: soft, normal bowel sounds. Absent: distended, tenderness, guarding, rebound, rigid Extremities exam: Present: full ROM, normal capillary refill, pedal edema (2+). Absent: tenderness, joint swelling, calf tenderness Back exam: Present: normal inspection Neurological exam: Present: alert, oriented X3, CN II-XII intact Psychiatric exam: Present: normal affect, normal mood Skin exam: Present: warm, dry, intact, normal color. Absent: rash Course Vital Signs 03/24/20 03/24/20 03/24/20 02:25 02:28 05:07 Temperature 97.6 F Pulse Rate 82 86 Pulse Rate [ [address] [place] ] Respiratory 20 18 Rate Blood Pressure 130/74 117/68 O2 Sat by Pulse 95 96 Oximetry Chest Pain MDM - MDM Upon arrival the patient is placed into room 1. A thorough history and physical exam was performed. Laboratory studies were conducted. The patient is re questing Dilaudid pain medication by name. He was given 1 mg after peripheral IV was established. Laboratory studies demonstrate a white blood count 12.6. CO2 is 41 which is chronically elevated for the patient. Glucose 149. Troponin less than 0.012. Urinalysis demonstrate a large of assessors, 102 with blood cells, rare white blood cell clumps. The patient is currently on Macrobid for a urinary tract infection. Chest x-ray demonstrates chronic moderate sized right pleural effusion which is the same or slightly increased compared to last exam. I discussed results with the patient. I discussed diagnosis, differential and treatment options. I did recommend hospital admission to trend the patient's troponins and get a cardiology consult as well as pulmonology consult for the right pleural effusion. The patient refused stating that he wanted to go home as he was concerned about the active Covid pandemic. At this time the patient will be discharged home and is to follow-up with his primary care doctor in regards to his symptoms. Return to the emergency department for any new or worsening symptoms. Patient was in agreement treatment plan he is discharged home in stable condition Disposition Clinical Impression: Chest pain, Recurrent right pleural effusion Disposition: HOME SELF-CARE Condition: Stable Instructions (If sedation given, give patient instructions): Chest Pain (ED) Additional Instructions: Please follow-up with your primary care doctor in regards to your symptoms. Return to the emergency room for any new or worsening symptoms Is patient prescribed a controlled substance at d/c from ED?: No Referrals: Hugo Bailey MD [Primary Care Provider] - 1-2 days Time of Disposition: 04:34
--- NOTE | 2020-03-24 03:32 | XR ---
EXAMINATION TYPE: XR chest 1V DATE OF EXAM: 03/24/2020 COMPARISON: 01/07/2020 HISTORY: Weakness. Chest pain. TECHNIQUE: FINDINGS: Heart is enlarged. There is blunting right costophrenic angle. There is no obvious heart fa ilure. There are chest leads. IMPRESSION: There is chronic moderate sized right pleural effusion which is the same or slightly incr eased compared to last exam. No obvious heart failure seen. Stable cardiomegaly. Right lower lobe pne umonia not excluded.
[2020-03-24 04:50] LABS: Appearance,Urine Clear (Clear); Bilirubin,Urine Negative (Negative); Blood,Urine Trace (Negative); Color,Urine Yellow; Glucose,Urine (UA) Negative (Negative); Hyaline Casts,Urine 3 /lpf (0-2); Ketones,Urine Negative (Negative); Leukocyte Esterase,Urine Large (Negative); Mucus,Urine Rare /hpf; Nitrite,Urine Negative (Negative); PH, Urine 5.5 (5.0-8.0); Protein,Urine Negative (Negative); RBC,Urine 2 /hpf (0-5); Specific Gravity,Urine 1.009 (1.001-1.035); Urobilinogen,Urine <2.0 mg/dL (<2.0); WBC,Urine 102 /hpf (0-5)
[2020-03-24 05:08] VITALS: BP 117/68; PULSE 86; RESP 18
== END 2020-03-24 06:12 | disposition home or self-care (01) ==
LOC: EC 02:20
DX: J90 Pleural effusion, not elsewhere classified (principal); R79.81 Abnormal blood-gas level; N39.0 Urinary tract infection, site not specified; I48.0 Paroxysmal atrial fibrillation; I13.0 Hypertensive heart and chronic kidney disease with heart failure and stage 1 through stage 4 chronic kidney disease, or unspecified chronic kidney disease; N18.3 Chronic kidney disease, stage 3 (moderate); I50.9 Heart failure, unspecified; F41.9 Anxiety disorder, unspecified; F31.9 Bipolar disorder, unspecified; F25.9 Schizoaffective disorder, unspecified; E78.5 Hyperlipidemia, unspecified; J44.9 Chronic obstructive pulmonary disease, unspecified; G47.33 Obstructive sleep apnea (adult) (pediatric); M19.90 Unspecified osteoarthritis, unspecified site; Z79.52 Long term (current) use of systemic steroids; Z79.51 Long term (current) use of inhaled steroids; Z79.01 Long term (current) use of anticoagulants; Z79.82 Long term (current) use of aspirin; Z79.899 Other long term (current) drug therapy; Z88.5 Allergy status to narcotic agent; Z88.8 Allergy status to other drugs, medicaments and biological substances; Z88.1 Allergy status to other antibiotic agents; Z85.828 Personal history of other malignant neoplasm of skin; Z86.711 Personal history of pulmonary embolism; Z87.891 Personal history of nicotine dependence; Z86.718 Personal history of other venous thrombosis and embolism; Z82.49 Family history of ischemic heart disease and other diseases of the circulatory system; Z86.73 Personal history of transient ischemic attack (TIA), and cerebral infarction without residual deficits; Z98.84 Bariatric surgery status; Z99.89 Dependence on other enabling machines and devices; Z95.5 Presence of coronary angioplasty implant and graft; Z96.641 Presence of right artificial hip joint; Z86.14 Personal history of Methicillin resistant Staphylococcus aureus infection
CPT/HCPCS: 99285; 96374; 36415; 93005; 83880; 80053; 82550; 83735; 84484; 85025; 85610; 85730; 81001; 87086; 71045; J1170

== ENCOUNTER 2020-10-29 08:25 | Inpatient (IN) | payer OTHER, MEDICARE, BC ==
[2020-10-29] MEDS ORDERED: ACETAMINOPHEN TAB 500 MG TAB PO STA (08:34)
[2020-10-29] MEDS ORDERED: ALBUTEROL HFA INHALER INHALATION STA (08:34)
[2020-10-29] MEDS ORDERED: ALBUTEROL HFA INHALER INHALATION PRN (08:34)
--- NOTE | 2020-10-29 08:38 | ED ---
General Adult HPI - General Chief complaint: Shortness of Breath Stated complaint: CAROLYN Time Seen by Provider: 10/29/20 08:27 Source: patient, EMS, RN notes reviewed Mode of arrival: EMS Limitations: physical limitation - History of Present Illness Initial comments: Patient is a pleasant 60-year-old male presenting to the emergency department with difficulty in breathing. Onset of symptoms was close one week ago. Patient does have dry cough. Patient unclear if he is been having fevers. Patient does have shaking chills and myalgias however. Patient does have history of COPD and CHF with previous similar lung problems. Patient does have some discomfort in his chest. Patient has some leg swelling however this is chronic and unchanged. Patient is not ambulatory. Patient is on Xarelto. - Related Data Home Medications Medication Instructions Recorded Confirmed Rivaroxaban [Xarelto] 20 mg PO DAILY 07/14/19 10/29/20 DULoxetine HCL [Cymbalta] 60 mg PO DAILY 07/15/19 10/29/20 dilTIAZem HCL [Diltiazem HCl] 30 mg PO TID 07/15/19 10/29/20 Atorvastatin [Lipitor] 10 mg PO HS 08/03/19 10/29/20 Lidocaine 5% Patch [Lidoderm 5% 1 patch TOPICAL DAILY 08/03/19 10/29/20 Patch] Tiotropium 18 Mcg/Puff [Spiriva] 1 puff INHALATION RT-DAILY 08/03/19 10/29/20 Potassium Chloride ER [K-Dur 20] 20 meq PO TID 09/18/19 10/29/20 Furosemide [Lasix] 40 mg PO BID 10/31/19 10/29/20 Buprenorphine HCl [Belbuca] 1 film SL BID 10/29/20 10/29/20 Gabapentin 600 mg PO BID 10/29/20 10/29/20 HYDROcodone/APAP 10-325MG [[place] 1 tab PO BID PRN 10/29/20 10/29/20 10-325] Ipratropium-Albuterol Nebulize 3 ml INHALATION RT-QID 10/29/20 10/29/20 [Duoneb 0.5 mg-3 mg/3 ml Soln] OLANZapine 20 mg PO HS 10/29/20 10/29/20 Allergies Allergy/AdvReac Type Severity Reaction Status Date / Time codeine Allergy Severe Swelling Verified 10/29/20 09:58 OF THROAT WITH COUGH SYRUP chlorpheniramine Allergy Unknown Verified 10/29/20 09:58 febuxostat [From Uloric] Allergy Unknown Verified 10/29/20 09:58 phenylephrine Allergy Unknown Verified 10/29/20 09:58 piperacillin sodium Allergy Unknown Verified 10/29/20 09:58 [From Zosyn] sulfamethoxazole Allergy Unknown Verified 10/29/20 09:58 [From Bactrim] tazobactam sodium Allergy Unknown Verified 10/29/20 09:58 [From Zosyn] trimethoprim [From Bactrim] Allergy Unknown Verified 10/29/20 09:58 buspirone [From BuSpar] AdvReac Rapid Verified 10/29/20 09:58 Heart Rate Review of Systems ROS Statement: Those systems with pertinent positive or pertinent negative responses have been documented in the HPI. ROS Other: All systems not noted in ROS Statement are negative. Constitutional: Reports: as per HPI, chills Eyes: Denies: eye pain ENT: Denies: ear pain Respiratory: Reports: cough, dyspnea Cardiovascular: Reports: chest pain Endocrine: Reports: fatigue Gastrointestinal: Denies: abdominal pain Genitourinary: Denies: dysuria Musculoskeletal: Denies: back pain Skin: Denies: rash Neurological: Denies: weakness Past Medical History Past Medical History: Atrial Fibrillation, Asthma, Cancer, Heart Failure, COPD, CVA/TIA, Diabetes Mellitus, Deep Vein Thrombosis (DVT), GERD/Reflux, GI Bleed, Hyperlipidemia, Hypertension, Osteoarthritis (OA), Pneumonia, Pulmonary Embolus (PE), Renal Disease, Respiratory Disorder, Sleep Apnea/CPAP/BIPAP Additional Past Medical History / Comment(s): Pt recently admitted to [facility] on 08/05/19 with acute on chronic CHF/abnormal ECHO-see report/paroxysmal afib/bilateral pleural effusions with R sided thoracentesis. Other hx: Pt denies diabetes stating he has hypoglycemia/pt recently transfered to [facility] for endocrinology consultation-states he wasn't told anything new, states he has bilateral feet neuropathy, colitis, chronic diffuse abdominal pain, chronic generalized pain, fluid retention, bedbound, lower GI bleed, hiatal hernia, DVT in leg which traveled to his lung, DDD, scoliosis, ALEXIS without device, CKD stage III, pseudoseizures with past extensive work up thru [facility], basal cell skin cancer removed from face. History of Any Multi-Drug Resistant Organisms: C-DIFF, MRSA Date of last positivie culture/infection: mrsa 2018, c-diff 2019 MDRO Source:: sputum, stool Past Surgical History: Appendectomy, Bariatric Surgery, Heart Catheterization, Hernia Repair, Joint Replacement, Orthopedic Surgery Additional Past Surgical History / Comment(s): Gastric sleeve in 2014, L inguinal hernia repair, R elbow surgery x2, total R hip arthroplasty, L knee arthroscopy/ACL surgery, R ankle ORIF, EGD, colonoscopy, basal cell skin cancer from face, surgery for varicele. Past Anesthesia/Blood Transfusion Reactions: Previous Problems w/ Anesthesia Additional Past Anesthesia/Blood Transfusion Reaction / Comment(s): STATES HE WAS TOLD HE WAS A DIFFICULT INTUBATION WITH GASTRIC SLEEVE SURGERY, Past Psychological History: Anxiety, Bipolar, Depression, Panic Disorder, Schizoaffective Disorder Smoking Status: Former smoker Past Alcohol Use History: None Reported Past Drug Use History: None Reported - Past Family History Father Family Medical History: Cancer Additional Family Medical History / Comment(s): LUNG CA Mother Family Medical History: Coronary Artery Disease (CAD) Additional Family Medical History / Comment(s): Mother of an infection. General Exam Limitations: physical limitation General appearance: alert Head exam: Present: normocephalic Eye exam: Present: normal appearance Neck exam: Present: normal inspection Respiratory exam: Present: wheezes (Mild expiratory) Cardiovascular Exam: Present: regular rate, normal rhythm GI/Abdominal exam: Present: soft. Absent: tenderness Extremities exam: Present: pedal edema. Absent: calf tenderness Neurological exam: Present: alert Psychiatric exam: Present: normal affect, normal mood Skin exam: Present: normal color Course Vital Signs 10/29/20 10/29/20 08:30 10:05 Temperature 100.9 F H 100.9 F H Pulse Rate 77 106 H Respiratory 26 H 20 Rate Blood Pressure 135/96 147/117 O2 Sat by Pulse 89 L 96 Oximetry - Reevaluation(s) Reevaluation #1: 10/29/20 10:07 Patient does meet sepsis criteria diagnosed at 10 AM. Blood culture and lactic acid have been ordered. IV antibiotics will be ordered. EKG Findings - EKG Comments: EKG Findings:: Sinus tachycardia 106. For screening AV block SC of 218. QRS 116. QT 312. QTC 414. Normal axis. Incomplete right bundle-branch block. Nonspecific ST-T. Medical Decision Making - Medical Decision Making Patient reevaluated and updated. Case was discussed with Dr. clement, who will admit covering for hospital call. - Lab Data Result diagrams: 10/29/20 08:47 10/29/20 08:47 Lab Results 10/29/20 10/29/20 10/29/20 Range/Units 08:47 08:47 08:47 WBC 10.5 (3.8-10.6) k/uL RBC 4.61 (4.30-5.90) m/uL Hgb 13.1 (13.0-17.5) gm/dL Hct 41.0 (39.0-53.0) % MCV 89.0 (80.0-100.0) fL MCH 28.5 (25.0-35.0) pg MCHC 32.0 (31.0-37.0) g/dL RDW 13.7 (11.5-15.5) % Plt Count 262 (150-450) k/uL MPV 6.9 Neutrophils % 84 % Lymphocytes % 9 % Monocytes % 4 % Eosinophils % 2 % Basophils % 1 % Neutrophils # 8.8 H (1.3-7.7) k/uL Lymphocytes # 1.0 (1.0-4.8) k/uL Monocytes # 0.4 (0-1.0) k/uL Eosinophils # 0.2 (0-0.7) k/uL Basophils # 0.1 (0-0.2) k/uL PT 10.7 (9.0-12.0) sec INR 1.0 (<1.2) APTT 27.7 (22.0-30.0) sec Sodium 137 (137-145) mmol/L Potassium 3.7 (3.5-5.1) mmol/L Chloride 93 L (98-107) mmol/L Carbon Dioxide 40 H (22-30) mmol/L Anion Gap 4 mmol/L BUN 18 (9-20) mg/dL Creatinine 0.67 (0.66-1.25) mg/dL Est GFR (CKD-EPI)AfAm >90 (>60 ml/min/1.73 sqM) Est GFR (CKD-EPI)NonAf >90 (>60 ml/min/1.73 sqM) Glucose 106 H (74-99) mg/dL Plasma Lactic Acid Benjie (0.7-2.0) mmol/L Calcium 9.3 (8.4-10.2) mg/dL Magnesium 1.8 (1.6-2.3) mg/dL Total Bilirubin 0.6 (0.2-1.3) mg/dL AST 25 (17-59) U/L ALT 21 (4-49) U/L Alkaline Phosphatase 113 (38-126) U/L Lactate Dehydrogenase 439 (313-618) U/L Troponin I (0.000-0.034) ng/mL C-Reactive Protein 8.7 (<10.0) mg/L Total Protein 7.0 (6.3-8.2) g/dL Albumin 4.0 (3.5-5.0) g/dL Coronavirus (PCR) (Not Detectd) 10/29/20 10/29/20 10/29/20 Range/Units 08:47 08:47 08:47 WBC (3.8-10.6) k/uL RBC (4.30-5.90) m/uL Hgb (13.0-17.5) gm/dL Hct (39.0-53.0) % MCV (80.0-100.0) fL MCH (25.0-35.0) pg MCHC (31.0-37.0) g/dL RDW (11.5-15.5) % Plt Count (150-450) k/uL MPV Neutrophils % % Lymphocytes % % Monocytes % % Eosinophils % % Basophils % % Neutrophils # (1.3-7.7) k/uL Lymphocytes # (1.0-4.8) k/uL Monocytes # (0-1.0) k/uL Eosinophils # (0-0.7) k/uL Basophils # (0-0.2) k/uL PT (9.0-12.0) sec INR (<1.2) APTT (22.0-30.0) sec Sodium (137-145) mmol/L Potassium (3.5-5.1) mmol/L Chloride (98-107) mmol/L Carbon Dioxide (22-30) mmol/L Anion Gap mmol/L BUN (9-20) mg/dL Creatinine (0.66-1.25) mg/dL Est GFR (CKD-EPI)AfAm (>60 ml/min/1.73 sqM) Est GFR (CKD-EPI)NonAf (>60 ml/min/1.73 sqM) Glucose (74-99) mg/dL Plasma Lactic Acid Benjie 3.8 H* (0.7-2.0) mmol/L Calcium (8.4-10.2) mg/dL Magnesium (1.6-2.3) mg/dL Total Bilirubin (0.2-1.3) mg/dL AST (17-59) U/L ALT (4-49) U/L Alkaline Phosphatase (38-126) U/L Lactate Dehydrogenase (313-618) U/L Troponin I <0.012 (0.000-0.034) ng/mL C-Reactive Protein (<10.0) mg/L Total Protein (6.3-8.2) g/dL Albumin (3.5-5.0) g/dL Coronavirus (PCR) Not Detected (Not Detectd) - Radiology Data Radiology results: image reviewed (Chest x-ray shows right upper lobe infiltrates. Right pleural effusion, chronic) Critical Care Time Critical Care Time: Yes Total Critical Care Time: 32 Disposition Clinical Impression: Pneumonia, Sepsis Disposition: ADMITTED IP TO THIS HOSP Is patient prescribed a controlled substance at d/c from ED?: No Referrals: Nonstaff,Physician [Primary Care Provider] - 1-2 days Decision Time: 10:08
--- NOTE | 2020-10-29 09:04 | XR ---
EXAMINATION TYPE: XR chest 1V portable DATE OF EXAM: 10/29/2020 COMPARISON: Chest x-ray March 24, 2020 and older x-rays. CT chest September 16, 2019. HISTORY: Shortness of breath, suspected covid 19 pneumonia. TECHNIQUE: 2 AP portable frontal semiupright views of the chest are obtained. FINDINGS: Overlying EKG leads redemonstrated. Underlying scoliotic curvature with multilevel spurrin g and spine redemonstrated. Cardiac silhouette size is stable and upper limits of normal. Background chronic parenchymal fibrotic changes along with small to moderate-sized right pleural fluid collectio n redemonstrated. Left lung is clear. There are new areas of consolidation throughout the right upper and midlung. Bilateral hilar prominence consistent with underlying pulmonary hypertension redemonstr ated. IMPRESSION: Chronic changes including persistent small to moderate-sized possible right pleural fluid collection. New Multifocal areas of right upper to midlung acute infiltrates could reflect covid-19 infection.
[2020-10-29 09:09] LABS: Basophils # (A) 0.1 k/uL (0-0.2); Basophils % (A) 1 %; Eosinophils # (A) 0.2 k/uL (0-0.7); Eosinophils % (A) 2 %; HGB 13.1 gm/dL (13.0-17.5); Lymphocytes % (A) 9 %; MCH 28.5 pg (25.0-35.0); Mean Platelet Volume 6.9; Monocytes # (A) 0.4 k/uL (0-1.0); Monocytes % (A) 4 %; Neutrophils # (A) 8.8 k/uL (1.3-7.7); Neutrophils % (A) 84 %; Platelet Count 262 k/uL (150-450); RBC 4.61 m/uL (4.30-5.90); RDW 13.7 % (11.5-15.5); WBC 10.5 k/uL (3.8-10.6)
[2020-10-29 09:21] LABS: Partial Thromboplastin Time 27.7 sec (22.0-30.0); Prothrombin Time 10.7 sec (9.0-12.0)
[2020-10-29 09:24] LABS: ALT 21 U/L (4-49); AST 25 U/L (17-59); African American GFR (CKD) >90 (>60 ml/min/1.73 sqM); Alkaline Phosphatase 113 U/L (38-126); Anion Gap 4 mmol/L; Blood Urea Nitrogen 18 mg/dL (9-20); C Reactive Protein 8.7 mg/L (<10.0); Calcium 9.3 mg/dL (8.4-10.2); Carbon Dioxide 40 mmol/L (22-30); Chloride 93 mmol/L (98-107); Glucose 106 mg/dL (74-99); LDH 439 U/L (313-618); Magnesium 1.8 mg/dL (1.6-2.3); Non-African American GFR(CKD) >90 (>60 ml/min/1.73 sqM); Potassium 3.7 mmol/L (3.5-5.1); Sodium 137 mmol/L (137-145); Total Bilirubin 0.6 mg/dL (0.2-1.3)
[2020-10-29] MEDS ORDERED: AZITHROMYCIN 500 MG in SODIUM CHLORIDE 0.9% 250 ML IVPB STA (10:08)
[2020-10-29] MEDS ORDERED: PNEUMONIA PROTOCOL UTILIZED 1 EACH MISC PO PRN (10:08)
[2020-10-29 10:15] LABS: Appearance,Urine Clear (Clear); Bilirubin,Urine Negative (Negative); Blood,Urine Small (Negative); Color,Urine Light Yellow; Glucose,Urine (UA) Negative (Negative); Hyaline Casts,Urine 1 /lpf (0-2); Ketones,Urine Negative (Negative); Leukocyte Esterase,Urine Negative (Negative); Mucus,Urine Rare /hpf; Nitrite,Urine Negative (Negative); PH, Urine 5.5 (5.0-8.0); Protein,Urine Negative (Negative); RBC,Urine 12 /hpf (0-5); Specific Gravity,Urine 1.009 (1.001-1.035); Urobilinogen,Urine <2.0 mg/dL (<2.0); WBC,Urine 1 /hpf (0-5)
[2020-10-29] MEDS ORDERED: SODIUM CHLORIDE 0.9% 1,000 ML IV SCH (10:15)
[2020-10-29] MEDS ORDERED: IPRATROPIUM-ALBUTEROL 3 ML NEB INHALATION PRN (12:03)
--- NOTE | 2020-10-29 12:43 | P.CNPUL ---
History of Present Illness Consult date: 10/29/20 Requesting physician: Adán Gonzalez Reason for consult: dyspnea Chief complaint: Dyspnea, fever History of present illness: 60-year-old white male patient with multiple chronic medical conditions, we had previous encounters with during his previous hospitalizations for shortness of breath related to recurrent right-sided pleural effusion with previous thoracentesis, with cytology showing no evidence of malignancy, showing reactive mesothelial cells predominantly chronic inflammatory cells, cells suggestive of histiocytes suggestive of congestive heart failure. Pleural fluid cultures were negative. Patient has history of obstructive sleep apnea he has a trilogy ventilator at home, morbid obesity, dysfunction, she is bedridden on a regular basis, previous history of DVT and pulmonary embolism on chronic anticoagulation, paroxysmal atrial fibrillation, diabetes mellitus type 2, COPD, hyperlipidemia, osteoarthritis, chronic pain syndrome, and history of depression and bipolar disorder. He presented to the emergency department on 10/29/2020 with complaints of shortness of breath, dry cough, chills, body aches, patient states his had on and off fever for last week and a half, has not been feeling well, but he is trying to avoid coming to the hospital. He is normally on oxygen at home at 2 L on the regular basis. He states his daughter came home and she had previously been exposed to somebody with COVID 19 however she herself tested negative. Denies any nausea vomiting or diarrhea, he states he is not urinating as much as usual although he is on his regular dose of Lasix 40 mg twice daily. In the emergency department chest x-ray was completed showing chronic changes including persistent small to moderate-sized right pleural fluid collection, and new multifocal areas of right upper to mid lung acute infiltrates. COVID 19 PCR was negative, patient was febrile in the emergency department with T-max of 100.9F, he is in sinus mechanism, slightly tachycardic with a rate of between 92-106 BPM, he is currently on 3 L of oxygen his pulse is between 92-96%, he is awake and alert, oriented 3, he is providing history of present illness, he was started on azithromycin and Rocephin for empiric antibiotic coverage for possibility of pneumonia, he is getting IV hydration with 0.9 normal saline at a rate of 130 ML per hour. His lab work revealed white blood cell count of 10.5, hemoglobin of 13.1, it was 137, potassium is 3.7, chloride is 93, CO2 is 40, BUN of 18 creatinine is 0.67, plasma lactic acid was 3.8, patient is getting IV fluid hydration, troponin was less than 0.012, LFTs were within normal limits, CRP and LDH were not elevated, urinalysis showed small amount of blood, no clear evidence of infection. Review of Systems All systems: negative Constitutional: Reports fatigue, Reports fever, Reports malaise, Reports weakness, Denies chills Eyes: denies blurred vision, denies pain Ears, nose, mouth and throat: Denies headache, Denies sore throat Cardiovascular: Denies chest pain, Denies shortness of breath Respiratory: Reports cough, Reports dyspnea, Reports home oxygen, Reports respi ratory infections Gastrointestinal: Denies abdominal pain, Denies diarrhea, Denies nausea, Denies vomiting Musculoskeletal: Denies myalgias Integumentary: Denies pruritus, Denies rash Neurological: Denies numbness, Denies weakness Psychiatric: Denies anxiety, Denies depression Endocrine: Denies fatigue, Denies weight change Past Medical History Past Medical History: Atrial Fibrillation, Asthma, Cancer, Heart Failure, COPD, CVA/TIA, Diabetes Mellitus, Deep Vein Thrombosis (DVT), GERD/Reflux, GI Bleed, Hyperlipidemia, Hypertension, Osteoarthritis (OA), Pneumonia, Pulmonary Embolus (PE), Renal Disease, Respiratory Disorder, Sleep Apnea/CPAP/BIPAP Additional Past Medical History / Comment(s): Pt recently admitted to [facility] on 08/05/19 with acute on chronic CHF/abnormal ECHO-see report/paroxysmal afib/bilateral pleural effusions with R sided thoracentesis. Other hx: Pt denies diabetes stating he has hypoglycemia/pt recently transfered to [facility] for endocrinology consultation-states he wasn't told anything new, states he has bilateral feet neuropathy, colitis, chronic diffuse abdominal pain, chronic generalized pain, fluid retention, bedbound, lower GI bleed, hiatal hernia, DVT in leg which traveled to his lung, DDD, scoliosis, ALEXIS without device, CKD stage III, pseudoseizures with past extensive work up thru [facility], basal cell skin cancer removed from face. History of Any Multi-Drug Resistant Organisms: C-DIFF, MRSA Date of last positivie culture/infection: mrsa 2018, c-diff 2019 MDRO Source:: sputum, stool Past Surgical History: Appendectomy, Bariatric Surgery, Heart Catheterization, Hernia Repair, Joint Replacement, Orthopedic Surgery Additional Past Surgical History / Comment(s): Gastric sleeve in 2014, L inguinal hernia repair, R elbow surgery x2, total R hip arthroplasty, L knee arthroscopy/ACL surgery, R ankle ORIF, EGD, colonoscopy, basal cell skin cancer from face, surgery for varicele. Past Anesthesia/Blood Transfusion Reactions: Previous Problems w/ Anesthesia Additional Past Anesthesia/Blood Transfusion Reaction / Comment(s): STATES HE WAS TOLD HE WAS A DIFFICULT INTUBATION WITH GASTRIC SLEEVE SURGERY, Past Psychological History: Anxiety, Bipolar, Depression, Panic Disorder, Schizoaffective Disorder Smoking Status: Former smoker Past Alcohol Use History: None Reported Past Drug Use History: None Reported - Past Family History Father Family Medical History: Cancer Additional Family Medical History / Comment(s): LUNG CA Mother Family Medical History: Coronary Artery Disease (CAD) Additional Family Medical History / Comment(s): Mother of an infection. Medications and Allergies Home Medications Medication Instructions Recorded Confirmed Type Rivaroxaban [Xarelto] 20 mg PO DAILY 07/14/19 10/29/20 History DULoxetine HCL [Cymbalta] 60 mg PO DAILY 07/15/19 10/29/20 History dilTIAZem HCL [Diltiazem HCl] 30 mg PO TID 07/15/19 10/29/20 History Atorvastatin [Lipitor] 10 mg PO HS 08/03/19 10/29/20 History Lidocaine 5% Patch [Lidoderm 5% 1 patch TOPICAL DAILY 08/03/19 10/29/20 History Patch] Tiotropium 18 Mcg/Puff [Spiriva] 1 puff INHALATION RT-DAILY 08/03/19 10/29/20 History Potassium Chloride ER [K-Dur 20] 20 meq PO TID 09/18/19 10/29/20 History Furosemide [Lasix] 40 mg PO BID 10/31/19 10/29/20 History Buprenorphine HCl [Belbuca] 1 film SL BID 10/29/20 10/29/20 History Gabapentin 600 mg PO BID 10/29/20 10/29/20 History HYDROcodone/APAP 10-325MG [[place] 1 tab PO BID PRN 10/29/20 10/29/20 History 10-325] Ipratropium-Albuterol Nebulize 3 ml INHALATION RT-QID 10/29/20 10/29/20 History [Duoneb 0.5 mg-3 mg/3 ml Soln] OLANZapine 20 mg PO HS 10/29/20 10/29/20 History Allergies Allergy/AdvReac Type Severity Reaction Status Date / Time codeine Allergy Severe Swelling Verified 10/29/20 09:58 OF THROAT WITH COUGH SYRUP chlorpheniramine Allergy Unknown Verified 10/29/20 09:58 febuxostat [From Uloric] Allergy Unknown Verified 10/29/20 09:58 phenylephrine Allergy Unknown Verified 10/29/20 09:58 piperacillin sodium Allergy Unknown Verified 10/29/20 09:58 [From Zosyn] sulfamethoxazole Allergy Unknown Verified 10/29/20 09:58 [From Bactrim] tazobactam sodium Allergy Unknown Verified 10/29/20 09:58 [From Zosyn] trimethoprim [From Bactrim] Allergy Unknown Verified 10/29/20 09:58 buspirone [From BuSpar] AdvReac Rapid Verified 10/29/20 09:58 Heart Rate Physical Exam Vitals: Vital Signs Temp Pulse Resp BP Pulse Ox 10/29/20 11:06 92 20 108/54 92 L 10/29/20 10:05 100.9 F H 106 H 20 147/117 96 10/29/20 08:30 100.9 F H 77 26 H 135/96 89 L Intake and Output 10/28/20 10/29/20 10/29/20 22:59 06:59 14:59 Other: Weight 204.117 kg GENERAL EXAM: Alert, very pleasant, 60-year-old morbidly obese white male, on 3 L of oxygen with a pulse ox between 92-96%, resting on the gurney in the emergency department oriented 3, comfortable in no apparent distress. HEAD: Normocephalic/atraumatic. EYES: Normal reaction of pupils, equal size. Conjunctiva pink, sclera white. NOSE: Clear with pink turbinates. THROAT: No erythema or exudates. NECK: No masses, no JVD, no thyroid enlargement, no adenopathy. CHEST: No chest wall deformity. Symmetrical expansion. LUNGS: Equal air entry with no crackles, wheeze, rhonchi or dullness. CVS: Regular rate and rhythm, normal S1 and S2, no gallops, no murmurs, no rubs ABDOMEN: Soft, nontender. No hepatosplenomegaly, normal bowel sounds, no guarding or rigidity. EXTREMITIES: No clubbing, significant lower extremity edema, 2+ in bilateral lower extremities, no cyanosis, 2+ pulses and upper and lower extremities. MUSCULOSKELETAL: Muscle strength and tone normal. SPINE: No scoliosis or deformity SKIN: No rashes CENTRAL NERVOUS SYSTEM: Alert and oriented -3. No focal deficits, tone is normal in all 4 extremities. PSYCHIATRIC: Alert and oriented -3. Appropriate affect. Intact judgment and insight. Results - Laboratory Findings CBC and BMP: 10/29/20 08:47 10/29/20 08:47 PT/INR, D-dimer PT 10.7 sec (9.0-12.0) 10/29/20 08:47 INR 1.0 (<1.2) 10/29/20 08:47 Abnormal lab findings: Abnormal Labs 10/29/20 10/29/20 10/29/20 08:47 08:47 08:47 Neutrophils # 8.8 H Chloride 93 L Carbon Dioxide 40 H Glucose 106 H Plasma Lactic Acid Benjie 3.8 H* Urine Blood Urine RBC Urine Mucus 10/29/20 09:50 Neutrophils # Chloride Carbon Dioxide Glucose Plasma Lactic Acid Benjie Urine Blood Small H Urine RBC 12 H Urine Mucus Rare H - Diagnostic Findings Chest x-ray: report reviewed, image reviewed Assessment and Plan Plan: Assessment: #1. Acute on chronic hypoxic respiratory failure related to possibility of sepsis, urinalysis showed no clear evidence of infection, there is a possibility of right lung pneumonia #2. Possible right lung pneumonia, COVID 19 has been ruled out #3. Rule out possibility of acute CHF #4. Lactic acidosis related to sepsis, patient is receiving IV hydration #5. Chronic hypercapnic respiratory failure related to obesity hypoventilation syndrome, and has a trilogy ventilator at home #6. History of VT and pulmonary embolism on Xarelto #7. History of paroxysmal atrial fibrillation on Xarelto, currently in sinus mechanism #8. Gait dysfunction, patient is chronically bedbound #9. Chronic right-sided pleural effusion, previous history of thoracentesis with negative cytology and cultures #10. Chronic pain syndrome #11. Diabetes mellitus type 2, with diabetic neuropathy #12. Degenerative disc disease #13. Previous history of chronic kidney disease stage III #14. Morbid obesity with previous history of gastric sleeve surgery in 2013 #15. History of COPD, former smoker #16. Anxiety and depression, panic disorder Plan: We'll continue current antibiotics, procalcitonin level, and send proBNP level, patient ruled out for COVID 19, hemodynamically he appears to be stable, has mild lactic acidosis, we'll cut back IV fluids a little bit to 75 ML per hour, he appears to be very fluid overloaded. We'll reorder his home dose Xarelto, swab patient for influenza A and B, we'll continue to monitor. Pt recently admitted to [facility] on 08/05/19 with acute on chronic CHF/abnormal ECHO- see report/paroxysmal afib/bilateral pleural effusions with R sided thoracentesis. Other hx: Pt denies diabetes stating he has hypoglycemia/pt recently transfered to [facility] for endocrinology consultation-states he wasn't told anything new, states he has bilateral feet neuropathy, colitis, chronic diffuse abdominal pain, chronic generalized pain, fluid retention, bedbound, lower GI bleed, hiatal hernia, DVT in leg which traveled to his lung, DDD, scoliosis, ALEXIS without device, CKD stage III, pseudoseizures with past extensive work up thru [facility], basal cell skin cancer removed from face. Time with Patient: Greater than 30
[2020-10-29] MEDS: RIVAROXABAN 20 MG TAB PO SCH ×2 (15:02→15:03)
[2020-10-29] MEDS: IPRATROPIUM-ALBUTEROL 3 ML NEB INHALATION SCH ×3 (15:24→21:07)
--- NOTE | 2020-10-29 15:35 | FL ---
EXAMINATION TYPE: FL barium swallow w video DATE OF EXAM: 10/29/2020 MODIFIED SWALLOW / DEGLUTITION STUDY CLINICAL HISTORY: Dysphagia. TECHNIQUE: Deglutition study is performed utilizing thin liquid barium, honey and nectar thick liqui d barium, barium thick applesauce, and barium coated cracker. COMPARISON: None. FINDINGS: The oral and pharyngeal phases show satisfactory initiation and propagation with all modali ties tested. Normal mastication is seen with solid modalities tested. There is no evidence of penet ration or aspiration with any modality tested. No significant pharyngeal residue was appreciated. No images submitted. 57 seconds of fluoroscopy provided. IMPRESSION: Normal deglutition study. Please refer to speech therapist notes for further details if necessary.
[2020-10-29] MEDS: HYDROcodone/APAP 10-325MG 1 EACH TAB PO PRN (15:54)
[2020-10-29 16:52] LABS: Glucose,Whole Blood 170 mg/dL (75-99)
[2020-10-29 17:04] LABS: Ferritin 21.7 ng/mL (22.0-322.0)
[2020-10-29] MEDS: INSULIN ASPART (NovoLOG) 100 UNIT/ML VIAL SQ SCH ×2 (18:37→21:58)
[2020-10-29] MEDS: FUROSEMIDE 10 MG/ML 4 ML VIAL IV SCH (18:37)
[2020-10-29 20:28] LABS: Glucose,Whole Blood 149 mg/dL (75-99)
[2020-10-29] MEDS: ALBUTEROL HFA INHALER INHALATION SCH ×2 (21:22→21:23)
--- NOTE | 2020-10-29 21:56 | HP ---
HISTORY AND PHYSICAL DATE OF SERVICE: October 29, 1020 CHIEF COMPLAINT: Shortness of breath. HISTORY OF PRESENT ILLNESS: This 60-year-old gentleman with a past medical history of multiple medical problems including atrial fibrillation, asthma, CHF, COPD, CVA, TIA, diabetes mellitus, CAD, history of DVT, GI bleed, paroxysmal atrial fibrillation, bilateral pleural effusion with right-sided thoracocentesis was complaining of shortness of breath. The patient taken to [facility] and was admitted for further evaluation and treatment. The patient also had hypertensive heart disease. The patient apparently had pseudoseizures from [facility]. Also the chest x-ray which was reviewed personally by me showed extensive right-sided lesions with pleural effusion, pneumonia, some collapse also. Patient admitted for further evaluation and treatment and video fluoroscopy swallow showed normal deglutition. The patient also complaining of some regurgitation of food after lying down also. There is no history of fever, rigors or chills. No headache, loss of consciousness or seizures. Covid 19 has been ruled out. Patient also mildly confused. PAST MEDICAL HISTORY: History of atrial fibrillation, history of asthma, history of CHF, COPD, CVA, TIA, diabetes type 2, DVT, GERD, GI bleed, hypertension, hyperlipidemia. MEDICATIONS: Prior to admission include DuoNeb. Carney, Xarelto, gabapentin, Belbuca, Spiriva, K-Dur, Lasix, diltiazem, Cymbalta, Lipitor. ALLERGIES: MULTIPLE ALLERGIES CODEINE, ZOSYN, BACTRIM, AND BUSPAR. FAMILY HISTORY: History of lung cancer in the family. SOCIAL HISTORY: Previous history of smoking. No current smoking or alcohol. REVIEW OF SYSTEMS: ENT diminished vision. Diminished hearing. CARDIOVASCULAR SYSTEM: As mentioned earlier. RESPIRATORY: As mentioned earlier. GI: As mentioned earlier. no dysuria. Nervous system: Diffusely weak. ALLERGY/IMMUNOLOGY: No asthma, hayfever. MUSCULOSKELETAL: As mentioned earlier. DERMATOLOGY: Negative. RHEUMATOLOGY: Negative. HEMATOLOGY/ONCOLOGY: No history of anemia. ENDOCRINE: No history of diabetes or hypothyroidism. CONSTITUTIONAL: As mentioned earlier. PSYCHIATRIC:As mentioned earlier. PHYSICAL EXAM: Alert and oriented x2. Pulse 81, blood pressure 104/62, respiration 18, temperature 98.7, pulse ox 98% on room air. HEENT: Conjunctivae normal. NECK: No JVD. CARDIOVASCULAR: S1, S2 muffled. RESPIRATORY SYSTEM: Breath sounds diminished at the bases. A few scattered rhonchi and crackles. ABDOMEN: Soft. Obese. Nontender. LEGS: Bilateral leg edema. NERVOUS SYSTEM: Higher functions as mentioned earlier. Moves all four extremities. Mild diffuse weakness. Lymphatics: No lymph nodes palpable in the neck, axillae or groin. SKIN: No ulcer, no rash and no bleeding. JOINTS: No active deforming arthropathy. LABS: CBC within normal limits and CO2 is 40. ASSESSMENT: 1. Acute right lower lobe pneumonia possibly Gram-negative, possibly aspiration with sepsis and acute hypoxic respiratory failure. 2. History of right pleural effusion with multiple thoracocentesis. 3. Possible congestive heart failure, acute exacerbation with acute on chronic diastolic dysfunction, ejection fraction 60 to 65%. 4. History atrial fibrillation chronic. 5. History of asthma, chronic obstructive pulmonary disease. 6. History of cerebrovascular accident, transient ischemic attack. 7. Diabetes mellitus type 2. 8. History of deep vein thrombosis. 9. History of gastroesophageal reflux disease. 10.History of gastrointestinal bleed. 11.Hypertension. 12.History of degenerative joint disease. 13.History of pneumonia. 14.History of pulmonary embolism. 15.History of sleep apnea. 16.History of pseudoseizures in [facility]. 17.History of paroxysmal atrial fibrillation. 18.History of bilateral pleural effusion. 19.History of colitis. 20.History of hiatal hernia. 21.History of scoliosis. 22.History of chronic kidney disease stage 3. 23.Bed-bound. 24.History of on MRI. 25.History of bariatric surgery. 26.History of gastric sleeve surgery. 27.Anxiety, bipolar depression, panic disorder, schizoaffective disorder. 28.Obesity with body mass of 53.5. 29.FULL CODE. RECOMMENDATIONS AND DISCUSSION: In this 60-year-old gentleman who presented with multiple complex medical issues, we will monitor the patient closely. Continue the current medications, management and symptomatic treatment. We will initiate broad-spectrum IV antibiotics, bronchodilators. Also recommend a CT scan of the chest and abdominal and pelvis to complete the workup. Otherwise PT, OT evaluation, possible ECF rehab. Continue the broad-spectrum antibiotics. Follow the cultures. Covid 19 influenza negative. Closely follow with Pulmonary. Prognosis is extremely guarded because of multiple complex medical issues as detailed above. Further recommendations to follow. MMODL / IJN: [id number] / RUFINO
[2020-10-29] MEDS: GABAPENTIN 300 MG CAP PO SCH (21:58)
[2020-10-29] MEDS: POTASSIUM CHLORIDE ER 20 MEQ TAB.ER PO SCH (21:58)
[2020-10-29] MEDS: ATORVASTATIN 10 MG TAB PO SCH (21:58)
[2020-10-29] MEDS: OLANZapine 10 MG TAB PO SCH (21:58)
[2020-10-29] MEDS: DILTIAZEM ORAL 30 MG TAB PO SCH (21:58)
[2020-10-29] MEDS: ACETAMINOPHEN TAB 500 MG TAB PO PRN (23:16)
[2020-10-30] MEDS: ALBUTEROL HFA INHALER INHALATION SCH ×4 (00:15→20:04)
[2020-10-30] MEDS: FUROSEMIDE 10 MG/ML 4 ML VIAL IV SCH ×3 (00:36→16:55)
[2020-10-30 06:52] LABS: Basophils % (A) 0 %; Eosinophils # (A) 0.1 k/uL (0-0.7); Eosinophils % (A) 1 %; HGB 11.2 gm/dL (13.0-17.5); Lymphocytes # (A) 0.8 k/uL (1.0-4.8); Lymphocytes % (A) 11 %; MCH 28.8 pg (25.0-35.0); MCHC 32.1 g/dL (31.0-37.0); MCV 89.6 fL (80.0-100.0); Monocytes # (A) 0.3 k/uL (0-1.0); Monocytes % (A) 5 %; Neutrophils # (A) 5.8 k/uL (1.3-7.7); Neutrophils % (A) 82 %; Platelet Count 203 k/uL (150-450); RDW 13.7 % (11.5-15.5); WBC 7.1 k/uL (3.8-10.6)
[2020-10-30 07:17] LABS: Glucose,Whole Blood 64 mg/dL (75-99)
[2020-10-30 07:46] LABS: Glucose,Whole Blood 79 mg/dL (75-99)
[2020-10-30] MEDS ORDERED: NON FORMULARY DRUG (Tiotropium 18 Mcg/Puff 1 PUFF Inhaler) INHALATION SCH (08:00)
--- NOTE | 2020-10-30 08:29 | XR ---
EXAMINATION TYPE: XR chest 1V portable DATE OF EXAM: 10/30/2020 Comparison: 10/29/2020 Clinical History: 60-year-old male pneumonia Findings: Right heart margin obscured by adjacent pleural parenchymal opacity. There is a moderate right pleura l effusion with extensive patchy opacity persisting throughout the right lung. Left lung and pleural space are relatively clear. Impression: Continued moderate right pleural effusion with adjacent atelectasis and/or consolidation. Patchy mult ifocal infiltrates throughout the remainder of the right lung persist.
[2020-10-30] MEDS: HYDROcodone/APAP 10-325MG 1 EACH TAB PO PRN ×2 (09:08→16:57)
[2020-10-30] MEDS: DULoxetine HCL 60 MG CAPSULE.DR PO SCH (09:08)
[2020-10-30] MEDS: RIVAROXABAN 20 MG TAB PO SCH (09:08)
[2020-10-30] MEDS: DILTIAZEM ORAL 30 MG TAB PO SCH ×3 (09:08→21:43)
[2020-10-30] MEDS: AZITHROMYCIN 500 MG TAB PO SCH (09:08)
[2020-10-30] MEDS: INSULIN ASPART (NovoLOG) 100 UNIT/ML VIAL SQ SCH ×4 (09:09→20:15)
[2020-10-30] MEDS: GABAPENTIN 300 MG CAP PO SCH ×2 (09:09→21:43)
[2020-10-30] MEDS: POTASSIUM CHLORIDE ER 20 MEQ TAB.ER PO SCH ×3 (09:09→21:43)
[2020-10-30] MEDS: LIDOCAINE 5% PATCH TOPICAL SCH (09:09)
--- NOTE | 2020-10-30 09:42 | ECHOF ---
Referral Reason:chf MEASUREMENTS -------- HEIGHT: 195.6 cm WEIGHT: 204.1 kg BP: 160/73 RVIDd: 3.8 cm (< 3.3) IVSd: 1.5 cm (0.6 - 1.1) LVIDd: 4.6 cm (3.9 - 5.3) LVPWd: 1.5 cm (0.6 - 1.1) IVSs: 1.7 cm LVIDs: 3.1 cm LVPWs: 2.0 cm LA Diam: 4.3 cm (2.7 - 3.8) LAESV Index (A-L): 37.00 ml/m Ao Diam: 4.1 cm (2.0 - 3.7) AV Cusp: 2.3 cm (1.5 - 2.6) MV EXCURSION: 33.579 mm (> 18.000) MV EF SLOPE: 100 mm/s (70 - 150) EPSS: 0.6 cm MV E Angel: 1.00 m/s MV DecT: 286 ms MV A Angel: 0.97 m/s MV E/A Ratio: 1.03 AV maxP.63 mmHg AV maxP.63 mmHg AV meanP.98 mmHg AR PHT: 694 ms RAP: 5.00 mmHg RVSP: 55.73 mmHg FINDINGS -------- Sinus rhythm. This was a technically adequate study. The left ventricular size is normal. There is moderate concentric left ventricular hypertrophy. O verall left ventricular systolic function is normal with, an EF between 55 - 60 %. The right ventricle is mild to moderately enlarged. LA is moderately dilated 34-39 ml/m2 The right atrial size is normal. Aneurysmal Interatrial septum. Aortic valve is trileaflet and is mildly thickened. There is mild aortic regurgitation. Peak/mean gradient across the Aortic Valve is 11.63mmHg / 5.98mmHg. The mitral valve is normal. Mild mitral regurgitation is present. Mild tricuspid regurgitation present. There is severe pulmonary hypertension. The right ventricul ar systolic pressure, as measured by Doppler, is 55.73mmHg. The pulmonic valve was not well visualized. The aortic root is dilated measuring 4.1cm. IVC Not well visulized. There is no pericardial effusion. CONCLUSIONS -------- 1. There is moderate concentric left ventricular hypertrophy. 2. Overall left ventricular systolic function is normal with, an EF between 55 - 60 %. 3. The right ventricle is mild to moderately enlarged. 4. LA is moderately dilated 34-39 ml/m2 5. Aneurysmal Interatrial septum. 6. There is mild aortic regurgitation. 7. Peak/mean gradient across the Aortic Valve is 11.63mmHg / 5.98mmHg. 8. Mild mitral regurgitation is present. 9. Mild tricuspid regurgitation present. 10. There is severe pulmonary hypertension. 11. The aortic root is dilated measuring 4.1cm. 12. There is no pericardial effusion. ST[employer] WINDOW INSTALLER: Catrina Escalante RDCS
--- NOTE | 2020-10-30 11:37 | P.CRDCN ---
History of Present Illness Consult date: 10/30/20 History of present illness: CHIEF COMPLAINT: CHF HISTORY OF PRESENT ILLNESS: This is a 60-year-old male with a past medical hi story significant for paroxysmal atrial fibrillation, PE, DVT, diabetes mellitus, COPD, chronic right pleural effusion with previous thoracentesis, hypertension, hyperlipidemia, and GERD. Patient states he has been evaluated in the past by a thread tool grinder set up operator during hospitalizations but has not followed up in the office with a thread tool grinder set up operator. We have been asked to see the patient in consultation for CHF. Patient is currently admitted to the hospital with sepsis and right-sided pneumonia. Patient examined this morning at the bedside. Patient denies chest pain or pressure. He reports mild shortness of breath. Patient states he sleeps with one pillow usually at home. He is essentially bed bound. He reports chronic lower extremity edema but states it is worse now than normal. He denies dizziness or lightheadedness. DIAGNOSTICS: EKG reveals sinus tachycardia with no signs of acute ischemia Chest xray continued moderate right pleural effusion with adjacent atelectasis and/or consolidation. Patchy multifocal infiltrates throughout the remainder of the right lung persist. Laboratory data: WBC 7.1. Hemoglobin 11.2. Platelet count 203. Sodium 137. Potassium 3.7. BUN 18. Creatinine 0.67. BNP 156. Troponin negative 1. Pro- calcitonin 0.93. Current home cardiac medications include Xarelto 20 mg daily, Lasix 40 mg twice a day, Cardizem 30 mg 3 times a day, and atorvastatin 10 mg daily Echocardiogram reveals ejection fraction 55-60%, mild aortic regurgitation, mild mitral regurgitation, mild tricuspid regurgitation, and severe pulmonary hypertension REVIEW OF SYSTEMS: At the time of my exam: CONSTITUTIONAL: Denies fever or chills. HEENT: Denies blurred vision, vision changes, or eye pain. Denies hemoptysis CARDIOVASCULAR: Denies chest pain, orthopnea, PND or palpitations RESPIRATORY: No shortness of breath. GASTROINTESTINAL: Denies abdominal pain. Denies nausea or vomiting. HEMATOLOGIC: Denies bleeding disorders. GENITOURINARY: Denies any blood in urine. SKIN: Denies pruitis. Denies rash. PHYSICAL EXAM: VITAL SIGNS: Reviewed. GENERAL: Well-developed in no acute distress. HEENT: Head is normocephalic. Pupils are equal, round. Sclerae anicteric. Mucous membranes of the mouth are moist. Neck supple. No JVD or thyromegaly LUNGS: Respirations even and unlabored. Lungs diminished. HEART: Regular rate and rhythm. S1 and S2 heard. ABDOMEN: Soft. Nondistended. Nontender. EXTREMITIES: Decreased range of motion of left lower extremity. No clubbing or cyanosis. Peripheral pulses intact. 2+ lower extremity edema NEUROLOGIC: Awake and alert. Oriented x 3. ASSESSMENT: Right-sided pneumonia with sepsis Acute on chronic hypoxic respiratory failure Chronic right pleural effusion with previous thoracentesis Chronic diastolic congestive heart failure, EF 55-60 Lower extremity edema, suspect secondary to patient being chronically bedbound and immobility Hypertension Hyperlipidemia Paroxysmal atrial fibrillation, on long-term anticoagulation with Xarelto, currently maintaining sinus mechanism History of DVT and PE Chronically bedbound Diabetes mellitus, type II PLAN: Repeat echocardiogram obtained and reviewed Patient with peripheral edema, normal BNP, likely secondary to immobility. No evidence of acute CHF exacerbation. Lasix started per Dr. Salazar. May continue for lower extremity edema. Pulmonary following Further recommendations pending patient course Nurse practitioner note has been reviewed by physician. Signing provider agrees with the documented findings, assessment, and plan of care. Past Medical History Past Medical History: Atrial Fibrillation, Asthma, Cancer, Heart Failure, COPD, CVA/TIA, Diabetes Mellitus, Deep Vein Thrombosis (DVT), GERD/Reflux, GI Bleed, Hyperlipidemia, Hypertension, Osteoarthritis (OA), Pneumonia, Pulmonary Embolus (PE), Renal Disease, Respiratory Disorder, Sleep Apnea/CPAP/BIPAP Additional Past Medical History / Comment(s): Pt recently admitted to [facility] on 08/05/19 with acute on chronic CHF/abnormal ECHO-see report/paroxysmal afib/bilateral pleural effusions with R sided thoracentesis. Other hx: Pt denies diabetes stating he has hypoglycemia/pt recently transfered to [facility] for endocrinology consultation-states he wasn't told anything new, states he has bilateral feet neuropathy, colitis, chronic diffuse abdominal pain, chronic generalized pain, fluid retention, bedbound, lower GI bleed, hiatal hernia, DVT in leg which traveled to his lung, DDD, scoliosis, ALEXIS without device, CKD stage III, pseudoseizures with past extensive work up thru [facility], basal cell skin cancer removed from face. History of Any Multi-Drug Resistant Organisms: C-DIFF, MRSA Date of last positivie culture/infection: mrsa 2019, c-diff 2019 MDRO Source:: sputum, stool Past Surgical History: Appendectomy, Bariatric Surgery, Heart Catheterization, Hernia Repair, Joint Replacement, Orthopedic Surgery Additional Past Surgical History / Comment(s): Gastric sleeve in 2014, L inguinal hernia repair, R elbow surgery x2, total R hip arthroplasty, L knee arthroscopy/ACL surgery, R ankle ORIF, EGD, colonoscopy, basal cell skin cancer from face, surgery for varicele. Past Anesthesia/Blood Transfusion Reactions: Previous Problems w/ Anesthesia Additional Past Anesthesia/Blood Transfusion Reaction / Comment(s): STATES HE WAS TOLD HE WAS A DIFFICULT INTUBATION WITH GASTRIC SLEEVE SURGERY, Past Psychological History: Anxiety, Bipolar, Depression, Panic Disorder, Schizoaffective Disorder Additional Psychological History / Comment(s): Pt resides with his son. states his home care services just stopped 09/06/19 He states he has been bedbound past few months. Pt states he gets paranoid at times. Smoking Status: Former smoker Past Alcohol Use History: None Reported Additional Past Alcohol Use History / Comment(s): STARTED SMOKING AT AGE 15 QUIT SMOKING 1998, smoked 4 cigerettes- 1PPD FORMER ETOH ABUSE. Pt states QUIT 2012 Past Drug Use History: None Reported Additional Drug Use History / Comment(s): PAST HX OF MARIJUANA USE, DENIES USE IN YEARS. - Past Family History Father Family Medical History: Cancer Additional Family Medical History / Comment(s): LUNG CA Mother Family Medical History: Coronary Artery Disease (CAD) Additional Family Medical History / Comment(s): Mother of an infection. Medications and Allergies Home Medications Medication Instructions Recorded Confirmed Type Rivaroxaban [Xarelto] 20 mg PO DAILY 07/14/19 10/29/20 History DULoxetine HCL [Cymbalta] 60 mg PO DAILY 07/15/19 10/29/20 History dilTIAZem HCL [Diltiazem HCl] 30 mg PO TID 07/15/19 10/29/20 History Atorvastatin [Lipitor] 10 mg PO HS 08/03/19 10/29/20 History Lidocaine 5% Patch [Lidoderm 5% 1 patch TOPICAL DAILY 08/03/19 10/29/20 History Patch] Tiotropium 18 Mcg/Puff [Spiriva] 1 puff INHALATION RT-DAILY 08/03/19 10/29/20 History Potassium Chloride ER [K-Dur 20] 20 meq PO TID 10/21/19 12/01/20 History Furosemide [Lasix] 40 mg PO BID 10/31/19 10/29/20 History Buprenorphine HCl [Belbuca] 1 film SL BID 10/29/20 10/29/20 History Gabapentin 600 mg PO BID 10/29/20 10/29/20 History HYDROcodone/APAP 10-325MG [[place] 1 tab PO BID PRN 10/29/20 10/29/20 History 10-325] Ipratropium-Albuterol Nebulize 3 ml INHALATION RT-QID 10/29/20 10/29/20 History [Duoneb 0.5 mg-3 mg/3 ml Soln] OLANZapine 20 mg PO HS 10/29/20 10/29/20 History Allergies Allergy/AdvReac Type Severity Reaction Status Date / Time codeine Allergy Severe Swelling Verified 10/29/20 09:58 OF THROAT WITH COUGH SYRUP chlorpheniramine Allergy Unknown Verified 10/29/20 09:58 febuxostat [From Uloric] Allergy Unknown Verified 10/29/20 09:58 phenylephrine Allergy Unknown Verified 10/29/20 09:58 piperacillin sodium Allergy Unknown Verified 10/29/20 09:58 [From Zosyn] sulfamethoxazole Allergy Unknown Verified 10/29/20 09:58 [From Bactrim] tazobactam sodium Allergy Unknown Verified 10/29/20 09:58 [From Zosyn] trimethoprim [From Bactrim] Allergy Unknown Verified 10/29/20 09:58 buspirone [From BuSpar] AdvReac Rapid Verified 10/29/20 09:58 Heart Rate Physical Exam Vitals: Vital Signs Temp Pulse Pulse Resp BP BP Pulse Ox 10/30/20 07:05 72 16 10/30/20 05:42 98.3 F 72 160/73 97 10/30/20 02:03 98.2 F 69 129/67 95 10/29/20 22:00 98.1 F 79 16 116/65 100 10/29/20 21:18 80 10/29/20 21:10 78 10/29/20 18:40 97.8 F 80 17 136/77 95 10/29/20 17:30 80 17 10/29/20 16:20 98.7 F 81 18 104/61 98 10/29/20 15:35 74 18 10/29/20 15:25 72 18 10/29/20 15:00 98.4 F 90 18 102/57 95 10/29/20 11:06 92 20 108/54 92 L Intake and Output 10/29/20 10/30/20 10/30/20 22:59 06:59 14:59 Output Total 900 1000 1000 Balance -900 -1000 -1000 Output: Urine 900 1000 1000 Other: Voiding Method Urinal Urinal # Voids 0 0 Weight 204.117 kg Results 10/30/20 06:03 10/29/20 08:47 CBC 10/30/20 Range/Units 06:03 WBC 7.1 (3.8-10.6) k/uL RBC 3.90 L (4.30-5.90) m/uL Hgb 11.2 L (13.0-17.5) gm/dL Hct 35.0 L (39.0-53.0) % Plt Count 203 (150-450) k/uL Current Medications Generic Name Dose Route Start Last Admin Trade Name Freq PRN Reason Stop Dose Admin Acetaminophen 1,000 mg 10/29/20 08:34 10/29/20 23:16 Acetaminophen Tab 500 Mg Tab PO 1,000 mg Q6HR PRN Administration Fever>101 Hydrocodone Bitart/Acetaminophen 1 each 10/29/20 12:44 10/30/20 09:08 Hydrocodone/Apap 10-325mg 1 Each Tab PO 1 each BID PRN Administration Pain Albuterol Sulfate 2 puff 10/29/20 14:00 10/30/20 07:30 Albuterol Hfa Inhaler INHALATION 2 puff RT-Q6H YUN Administration Albuterol Sulfate 2 puff 10/29/20 08:34 Albuterol Hfa Inhaler INHALATION RT-Q6H PRN Shortness Of Breath Or Wheezing Atorvastatin Calcium 10 mg 10/29/20 21:00 10/29/20 21:58 Atorvastatin 10 Mg Tab PO 10 mg HS YUN Administration Azithromycin 500 mg 10/30/20 09:00 10/30/20 09:08 Azithromycin 500 Mg Tab PO 11/03/20 09:01 500 mg DAILY YUN Administration Diltiazem HCl 30 mg 10/29/20 22:00 10/30/20 09:08 Diltiazem Oral 30 Mg Tab PO 30 mg TID YUN Administration Duloxetine HCl 60 mg 10/30/20 09:00 10/30/20 09:08 Duloxetine Hcl 60 Mg Capsule.Dr PO 60 mg DAILY YUN Administration Furosemide 40 mg 10/29/20 18:00 10/30/20 09:09 Furosemide 10 Mg/Ml 4 Ml Vial IV 40 mg Q8HR YUN Administration Gabapentin 600 mg 10/29/20 21:00 10/30/20 09:09 Gabapentin 300 Mg Cap PO 600 mg BID YUN Administration Ceftriaxone Sodium 2 gm/ 50 mls @ 100 mls/hr 10/30/20 09:00 10/30/20 09:09 Sodium Chloride IVPB 11/01/20 09:01 100 mls/hr Q24HR YUN Administration Insulin Aspart 0 unit 10/29/20 17:30 10/30/20 09:09 Insulin Aspart (Novolog) 100 Unit/Ml Vial SQ Not Given ACHS YUN Protocol Lidocaine 1 patch 10/30/20 09:00 10/30/20 09:09 Lidocaine 5% Patch TOPICAL 1 patch DAILY YUN Administration Miscellaneous Information 1 each 10/29/20 10:08 Pneumonia Protocol Utilized 1 Each Misc PO ONCE PRN Per Protocol Buprenorphine Hcl [ 1 film 10/29/20 21:00 10/29/20 22:09 Belbuca] 300 Mcg SUBLINGUAL Not Given Film BID YUN Olanzapine 20 mg 10/29/20 21:00 10/29/20 21:58 Olanzapine 10 Mg Tab PO 20 mg HS YUN Administration Potassium Chloride 20 meq 10/29/20 22:00 10/30/20 09:09 Potassium Chloride Er 20 Meq Tab.Er PO 20 meq TID YUN Administration Rivaroxaban 20 mg 10/29/20 12:45 10/30/20 09:08 Rivaroxaban 20 Mg Tab PO 20 mg DAILY YUN Administration Intake and Output 10/29/20 10/30/20 10/30/20 22:59 06:59 14:59 Output Total 900 1000 1000 Balance -900 -1000 -1000 Output: Urine 900 1000 1000 Other: Voiding Method Urinal Urinal # Voids 0 0 Weight 204.117 kg 10/30/20 06:03 10/29/20 08:47
[2020-10-30 11:51] LABS: Glucose,Whole Blood 101 mg/dL (75-99)
[2020-10-30 12:19] LABS: African American GFR (CKD) 113.3 (60.0-200.0); Anion Gap 7.3 mmol/L (4.00-12.00); Carbon Dioxide 37.7 mmol/L (21.6-31.8); Non-African American GFR(CKD) 97.8 (60.0-200.0); Potassium 3.4 mmol/L (3.5-5.5)
[2020-10-30] MEDS: IOPAMIDOL CONTRAST (ORAL USE) VIAL PO PRN ×2 (14:27→15:35)
--- NOTE | 2020-10-30 15:12 | P.GSCN ---
History of Present Illness Consult date: 10/30/20 History of present illness: CHIEF COMPLAINT: Shortness of breath HISTORY OF PRESENT ILLNESS: This is a 60-year-old male with multiple medical problems including atrial fibrillation, DVT, PE anticoagulated with Xarelto, asthma, CHF, COPD, CVA, diabetes mellitus, pleural effusion requiring right thoracentesis. Patient also has a history of pseudoseizures and had been evaluated [facility]. Patient presents to the hospital with cough, shortness of breath and temp of 100.9. Initial chest x-ray showed chronic changes including persistent small to moderate-sized possible right pleural fluid collection. Multifocal areas of right upper mid lung acute infiltrates. COVID 19 and influenza were negative. Patient admitted to the hospital for pneumonia. There are also concerns of possible aspiration pneumonia. Patient followed by pulmonary service. Also evaluated by cardiology service who felt there is no evidence of CHF exacerbation. Surgical consult has been placed for evaluation of GERD. Patient reports he's had issues with GERD for 4 years. He currently does not take any medication for his GERD. Patient reports on a regular basis he has issues with heartburn and regurgitation. He gives an example of he'll be eating and needs to take a break to let his food settle. And while he is waiting the food as well as liquid will regurgitate. He denies vomiting. It occasionally he has some difficulty with swallowing. He reports his last EGD was about 5 years ago. Also reports a colonoscopy about 5 years ago with polyps removed. Patient does admit to having hard stools. But he does have bowel movement was every other day. Denies any blood in his stools. Patient also has a known history of gastric sleeve in 2014, appendectomy and a l eft inguinal hernia repair. PAST MEDICAL HISTORY: See list. PAST SURGICAL HISTORY: See list. MEDICATIONS: See list. ALLERGIES: See list. SOCIAL HISTORY: No illicit drug use. REVIEW OF SYSTEMS: CONSTITUTIONAL: Denies fever or chills. HEENT: Denies blurred vision, vision changes, or eye pain. Denies hemoptysis CARDIOVASCULAR: Denies chest pain or pressure. RESPIRATORY: No shortness of breath. GASTROINTESTINAL: See HPI for pertinent findings HEMATOLOGIC: Denies bleeding disorders. GENITOURINARY: Denies any blood in urine or increased urinary frequency. SKIN: Denies pruitis. Denies rash. PHYSICAL EXAM: VITAL SIGNS: Reviewed GENERAL: Well-developed in no acute distress. HEENT: No sclera icterus. Extraocular movements grossly intact. Moist buccal mucosa. Head is atraumatic, normocephalic. No nasal drainage. ABDOMEN: Soft. Obese. Nondistended. Nontender NEUROLOGIC: Alert and oriented. Cranial nerves II through XII grossly intact. LABORATORY DATA: WBC 7.1 hemoglobin 11.2 potassium 3.4 sodium 140 creatinine 0.8 Covid 19 negative, influenza A and B negative IMAGING: Chest x-ray from 10/30/20 shows continued moderate right pleural effusion with adjacent atelectasis and/or consolidation. Patchy multifocal infiltrates throughout the remainder of the right lung persist CT chest abdomen and pelvis pending Modified barium swallow no evidence of aspiration ASSESSMENT: 1. GERD with concerns of aspiration 2. Right lower lobe pneumonia 3. History of gastric sleeve 4. Morbid obesity 5. History of atrial fibrillation 6. History of DVT and PE anticoagulated with Xarelto PLAN: -Patient will be scheduled for EGD tomorrow with Dr. Vigil -Keep patient nothing by mouth after midnight -We'll follow up on computed tomography scan of the chest, abdomen and pelvis -Add Protonix 40 mg by mouth daily -Continue antibiotics per medicine -Continue supportive care Thank you for this consultation Physician Explosives Mixer Operator note has been reviewed by physician. Signing provider agrees with the documented findings, assessment, and plan of care. Past Medical History Past Medical History: Atrial Fibrillation, Asthma, Cancer, Heart Failure, COPD, CVA/TIA, Diabetes Mellitus, Deep Vein Thrombosis (DVT), GERD/Reflux, GI Bleed, Hyperlipidemia, Hypertension, Osteoarthritis (OA), Pneumonia, Pulmonary Embolus (PE), Renal Disease, Respiratory Disorder, Sleep Apnea/CPAP/BIPAP Additional Past Medical History / Comment(s): Pt recently admitted to [facility] on 08/05/19 with acute on chronic CHF/abnormal ECHO-see report/paroxysmal afib/bilateral pleural effusions with R sided thoracentesis. Other hx: Pt de nies diabetes stating he has hypoglycemia/pt recently transfered to [facility] for endocrinology consultation-states he wasn't told anything new, states he has bilateral feet neuropathy, colitis, chronic diffuse abdominal pain, chronic generalized pain, fluid retention, bedbound, lower GI bleed, hiatal hernia, DVT in leg which traveled to his lung, DDD, scoliosis, ALEXIS without device, CKD stage III, pseudoseizures with past extensive work up thru [facility], basal cell skin cancer removed from face. History of Any Multi-Drug Resistant Organisms: C-DIFF, MRSA Year Discovered:: mrsa 2018, c-diff 2018 MDRO Source:: sputum, stool Past Surgical History: Appendectomy, Bariatric Surgery, Heart Catheterization, H ernia Repair, Joint Replacement, Orthopedic Surgery Additional Past Surgical History / Comment(s): Gastric sleeve in 2014, L inguinal hernia repair, R elbow surgery x2, total R hip arthroplasty, L knee arthroscopy/ACL surgery, R ankle ORIF, EGD, colonoscopy, basal cell skin cancer from face, surgery for varicele. Past Anesthesia/Blood Transfusion Reactions: Previous Problems w/ Anesthesia Additional Past Anesthesia/Blood Transfusion Reaction / Comm: STATES HE WAS TOLD HE WAS A DIFFICULT INTUBATION WITH GASTRIC SLEEVE SURGERY, Past Psychological History: Anxiety, Bipolar, Depression, Panic Disorder, Schizoaffective Disorder Additional Psychological History / Comment(s): Pt resides with his son. states his home care services just stopped 09/06/19 He states he has been bedbound past few months. Pt states he gets paranoid at times. Smoking Status: Former smoker Past Alcohol Use History: None Reported Additional Past Alcohol Use History / Comment(s): STARTED SMOKING AT AGE 15 QUIT SMOKING 1998, smoked 4 cigerettes- 1PPD FORMER ETOH ABUSE. Pt states QUIT 2012 Past Drug Use History: None Reported Additional Drug Use History / Comment(s): PAST HX OF MARIJUANA USE, DENIES USE IN YEARS. - Past Family History Father Family Medical History: Cancer Additional Family Medical History / Comment(s): LUNG CA Mother Family Medical History: Coronary Artery Disease (CAD) Additional Family Medical History / Comment(s): Mother of an infection. Medications and Allergies Home Medications Medication Instructions Recorded Confirmed Type Rivaroxaban [Xarelto] 20 mg PO DAILY 07/14/19 10/29/20 History DULoxetine HCL [Cymbalta] 60 mg PO DAILY 07/15/19 10/29/20 History dilTIAZem HCL [Diltiazem HCl] 30 mg PO TID 07/15/19 10/29/20 History Atorvastatin [Lipitor] 10 mg PO HS 08/03/19 10/29/20 History Lidocaine 5% Patch [Lidoderm 5% 1 patch TOPICAL DAILY 08/03/19 10/29/20 History Patch] Tiotropium 18 Mcg/Puff [Spiriva] 1 puff INHALATION RT-DAILY 08/03/19 10/29/20 History Potassium Chloride ER [K-Dur 20] 20 meq PO TID 09/18/19 10/29/20 History Furosemide [Lasix] 40 mg PO BID 10/31/19 10/29/20 History Buprenorphine HCl [Belbuca] 1 film SL BID 10/29/20 10/29/20 History Gabapentin 600 mg PO BID 10/29/20 10/29/20 History HYDROcodone/APAP 10-325MG [[place] 1 tab PO BID PRN 10/29/20 10/29/20 History 10-325] Ipratropium-Albuterol Nebulize 3 ml INHALATION RT-QID 10/29/20 10/29/20 History [Duoneb 0.5 mg-3 mg/3 ml Soln] OLANZapine 20 mg PO HS 10/29/20 10/29/20 History Allergies Allergy/AdvReac Type Severity Reaction Status Date / Time codeine Allergy Severe Swelling Verified 10/29/20 09:58 OF THROAT WITH COUGH SYRUP chlorpheniramine Allergy Unknown Verified 10/29/20 09:58 febuxostat [From Uloric] Allergy Unknown Verified 10/29/20 09:58 phenylephrine Allergy Unknown Verified 10/29/20 09:58 piperacillin sodium Allergy Unknown Verified 10/29/20 09:58 [From Zosyn] sulfamethoxazole Allergy Unknown Verified 10/29/20 09:58 [From Bactrim] tazobactam sodium Allergy Unknown Verified 10/29/20 09:58 [From Zosyn] trimethoprim [From Bactrim] Allergy Unknown Verified 10/29/20 09:58 buspirone [From BuSpar] AdvReac Rapid Verified 10/29/20 09:58 Heart Rate Surgical - Exam Vital Signs Temp Pulse Resp BP Pulse Ox 100.9 F H 77 26 H 135/96 89 L 10/29/20 08:30 10/29/20 08:30 10/29/20 08:30 10/29/20 08:30 10/29/20 08:30 Results - Labs 10/30/20 06:03 10/30/20 06:03 Abnormal Lab Results - Last 24 Hours (Table) 10/29/20 10/29/2010/29/20 Range/Units 08:47 12:05 16:49 RBC (4.30-5.90) m/uL Hgb (13.0-17.5) gm/dL Hct (39.0-53.0) % Lymphocytes # (1.0-4.8) k/uL Potassium (3.5-5.5) mmol/L Chloride (96-109) mmol/L Carbon Dioxide (21.6-31.8) mmol/L BUN/Creatinine Ratio (12.00-20.00) Ratio POC Glucose (mg/dL) 170 H (75-99) mg/dL Ferritin 21.7 L (22.0-322.0) ng/mL Procalcitonin 0.93 H (0.02-0.09) ng/mL 10/29/20 10/30/20 10/30/20 Range/Units 20:26 06:03 06:03 RBC 3.90 L (4.30-5.90) m/uL Hgb 11.2 L (13.0-17.5) gm/dL Hct 35.0 L (39.0-53.0) % Lymphocytes # 0.8 L (1.0-4.8) k/uL Potassium 3.4 L (3.5-5.5) mmol/L Chloride 95 L (96-109) mmol/L Carbon Dioxide 37.7 H (21.6-31.8) mmol/L BUN/Creatinine Ratio 25.00 H (12.00-20.00) Ratio POC Glucose (mg/dL) 149 H (75-99) mg/dL Ferritin (22.0-322.0) ng/mL Procalcitonin (0.02-0.09) ng/mL 10/30/20 10/30/20 Range/Units 07:10 11:48 RBC (4.30-5.90) m/uL Hgb (13.0-17.5) gm/dL Hct (39.0-53.0) % Lymphocytes # (1.0-4.8) k/uL Potassium (3.5-5.5) mmol/L Chloride (96-109) mmol/L Carbon Dioxide (21.6-31.8) mmol/L BUN/Creatinine Ratio (12.00-20.00) Ratio POC Glucose (mg/dL) 64 L 101 H (75-99) mg/dL Ferritin (22.0-322.0) ng/mL Procalcitonin (0.02-0.09) ng/mL Microbiology - Last 24 Hours (Table) 10/29/20 08:47 Blood Culture - Preliminary Blood No Growth after 24 hours Diabetes panel 10/30/20 Range/Units 06:03 Sodium 140 (135-145) mmol/L Potassium 3.4 L (3.5-5.5) mmol/L Chloride 95 L (96-109) mmol/L Carbon Dioxide 37.7 H (21.6-31.8) mmol/L BUN 20.0 (9.0-27.0) mg/dL Creatinine 0.8 (0.6-1.5) mg/dL Glucose 89 (70-110) mg/dL Calcium 9.0 (8.7-10.3) mg/dL Calcium panel 10/30/20 Range/Units 06:03 Calcium 9.0 (8.7-10.3) mg/dL Pituitary panel 10/30/20 Range/Units 06:03 Sodium 140 (135-145) mmol/L Potassium 3.4 L (3.5-5.5) mmol/L Chloride 95 L (96-109) mmol/L Carbon Dioxide 37.7 H (21.6-31.8) mmol/L BUN 20.0 (9.0-27.0) mg/dL Creatinine 0.8 (0.6-1.5) mg/dL Glucose 89 (70-110) mg/dL Calcium 9.0 (8.7-10.3) mg/dL Adrenal panel 10/30/20 Range/Units 06:03 Sodium 140 (135-145) mmol/L Potassium 3.4 L (3.5-5.5) mmol/L Chloride 95 L (96-109) mmol/L Carbon Dioxide 37.7 H (21.6-31.8) mmol/L BUN 20.0 (9.0-27.0) mg/dL Creatinine 0.8 (0.6-1.5) mg/dL Glucose 89 (70-110) mg/dL Calcium 9.0 (8.7-10.3) mg/dL
[2020-10-30 15:19] LABS: Hemoglobin A1C 5.3 % (4.0-6.0)
[2020-10-30] MEDS ORDERED: POTASSIUM CHLORIDE ER 20 MEQ TAB.ER PO STA (15:21)
--- NOTE | 2020-10-30 15:54 | P.PN ---
Subjective Progress Note Date: 10/30/20 Principal diagnosis: Acute on chronic hypoxic respiratory failure possibility of right lung pneumonia 60-year-old white male patient with multiple chronic medical conditions, we had previous encounters with during his previous hospitalizations for shortness of breath related to recurrent right-sided pleural effusion with previous thoracentesis, with cytology showing no evidence of malignancy, showing reactive mesothelial cells predominantly chronic inflammatory cells, cells suggestive of histiocytes suggestive of congestive heart failure. Pleural fluid cultures were negative. Patient has history of obstructive sleep apnea he has a trilogy ventilator at home, morbid obesity, dysfunction, she is bedridden on a regular basis, previous history of DVT and pulmonary embolism on chronic anticoagulation, paroxysmal atrial fibrillation, diabetes mellitus type 2, COPD, hyperlipidemia, osteoarthritis, chronic pain syndrome, and history of depression and bipolar disorder. He presented to the emergency department on 10/29/2020 with complaints of shortness of breath, dry cough, chills, body aches, patient states his had on and off fever for last week and a half, has not been feeling well, but he is trying to avoid coming to the hospital. He is normally on oxygen at home at 2 L on the regular basis. He states his daughter came home and she had previously been exposed to somebody with COVID 19 however she herself tested negative. Denies any nausea vomiting or diarrhea, he states he is not urinating as much as usual although he is on his regular dose of Lasix 40 mg twice daily. In the emergency department chest x-ray was completed showing chronic changes including persistent small to moderate-sized right pleural fluid collection, and new multifocal areas of right upper to mid lung acute infiltrates. COVID 19 PCR was negative, patient was febrile in the emergency department with T-max of 100.9F, he is in sinus mechanism, slightly tachycardic with a rate of between 92-106 BPM, he is currently on 3 L of oxygen his pulse is between 92-96%, he is awake and alert, oriented 3, he is providing history of present illness, he was started on azithromycin and Rocephin for empiric antibiotic coverage for possibility of pneumonia, he is getting IV hydration wi th 0.9 normal saline at a rate of 130 ML per hour. His lab work revealed white blood cell count of 10.5, hemoglobin of 13.1, it was 137, potassium is 3.7, chloride is 93, CO2 is 40, BUN of 18 creatinine is 0.67, plasma lactic acid was 3.8, patient is getting IV fluid hydration, troponin was less than 0.012, LFTs were within normal limits, CRP and LDH were not elevated, urinalysis showed small amount of blood, no clear evidence of infection. On 10/30/2020 patient is seen in follow-up on medical surgical floor, still requiring high flow oxygen, currently at 9 L, with a pulse ox of 94%, hemodyn amically stable, afebrile, breathing comfortably, no worsening dyspnea, which more awake and alert on today's exam, he is oriented 3, no nausea or vomiting, no abdominal pain, blood cultures show no growth. He is on empiric embedded coverage including azithromycin and Rocephin. he was started on Lasix, appears to be quite fluid overloaded, pressure stable, 148/74, his labs have been reviewed, white blood cell, 7.1, hemoglobin is 11.2, sodium is 140, potassium is 3.4, chloride is 95, CO2 37, BUN of 28 creatinine 0.8. Follow-up chest x-ray was reviewed, showing moderate right sided pleural effusion with adjacent atelectasis and/or consolidation. Patchy multifocal infiltrates throughout the remainder of the right lung persistent Objective - Vital Signs Vital signs: Vital Signs Temp 98.2 F 10/30/20 14:00 Pulse 69 10/30/20 14:00 Resp 19 10/30/20 14:00 BP 148/74 10/30/20 14:00 Pulse Ox 94 L 10/30/20 14:00 Intake & Output 10/29/20 10/30/20 10/30/20 18:59 06:59 18:59 Output Total 1900 1000 Balance -1900 -1000 Weight 204.117 kg Output: Urine 1900 1000 Other: Voiding Method Urinal Urinal Urinal # Voids 0 0 - Exam GENERAL EXAM: Alert, very pleasant, 60-year-old morbidly obese white male, on 3 L of oxygen with a pulse ox between 92-96%, resting on the gurney in the emergency department oriented 3, comfortable in no apparent distress. HEAD: Normocephalic/atraumatic. EYES: Normal reaction of pupils, equal size. Conjunctiva pink, sclera white. NOSE: Clear with pink turbinates. THROAT: No erythema or exudates. NECK: No masses, no JVD, no thyroid enlargement, no adenopathy. CHEST: No chest wall deformity. Symmetrical expansion. LUNGS: Equal air entry with no crackles, wheeze, rhonchi or dullness. CVS: Regular rate and rhythm, normal S1 and S2, no gallops, no murmurs, no rubs ABDOMEN: Soft, nontender. No hepatosplenomegaly, normal bowel sounds, no guarding or rigidity. EXTREMITIES: No clubbing, significant lower extremity edema, 2+ in bilateral lower extremities, no cyanosis, 2+ pulses and upper and lower extremities. MUSCULOSKELETAL: Muscle strength and tone normal. SPINE: No scoliosis or deformity SKIN: No rashes CENTRAL NERVOUS SYSTEM: Alert and oriented -3. No focal deficits, tone is normal in all 4 extremities. PSYCHIATRIC: Alert and oriented -3. Appropriate affect. Intact judgment and insight. - Labs CBC & Chem 7: 10/30/20 06:03 10/30/20 06:03 Labs: Abnormal Lab Results - Last 24 Hours (Table) 10/29/20 10/29/20 10/29/20 Range/Units 08:47 12:05 16:49 RBC (4.30-5.90) m/uL Hgb (13.0-17.5) gm/dL Hct (39.0-53.0) % Lymphocytes # (1.0-4.8) k/uL Potassium (3.5-5.5) mmol/L Chloride (96-109) mmol/L Carbon Dioxide (21.6-31.8) mmol/L BUN/Creatinine Ratio (12.00-20.00) Ratio POC Glucose (mg/dL) 170 H (75-99) mg/dL Ferritin 21.7 L (22.0-322.0) ng/mL Procalcitonin 0.93 H (0.02-0.09) ng/mL 10/29/20 10/30/20 10/30/20 Range/Units 20:26 06:03 06:03 RBC 3.90 L (4.30-5.90) m/uL Hgb 11.2 L (13.0-17.5) gm/dL Hct 35.0 L (39.0-53.0) % Lymphocytes # 0.8 L (1.0-4.8) k/uL Potassium 3.4 L (3.5-5.5) mmol/L Chloride 95 L (96-109) mmol/L Carbon Dioxide 37.7 H (21.6-31.8) mmol/L BUN/Creatinine Ratio 25.00 H (12.00-20.00) Ratio POC Glucose (mg/dL) 149 H (75-99) mg/dL Ferritin (22.0-322.0) ng/mL Procalcitonin (0.02-0.09) ng/mL 10/30/20 10/30/20 Range/Units 07:10 11:48 RBC (4.30-5.90) m/uL Hgb (13.0-17.5) gm/dL Hct (39.0-53.0) % Lymphocytes # (1.0-4.8) k/uL Potassium (3.5-5.5) mmol/L Chloride (96-109) mmol/L Carbon Dioxide (21.6-31.8) mmol/L BUN/Creatinine Ratio (12.00-20.00) Ratio POC Glucose (mg/dL) 64 L 101 H (75-99) mg/dL Ferritin (22.0-322.0) ng/mL Procalcitonin (0.02-0.09) ng/mL Microbiology - Last 24 Hours (Table) 10/29/20 08:47 Blood Culture - Preliminary Blood No Growth after 24 hours Assessment and Plan Plan: Assessment: #1. Acute on chronic hypoxic respiratory failure related to possibility of sepsis, urinalysis showed no clear evidence of infection, there is a possibility of right lung pneumonia #2. Possible right lung pneumonia, COVID 19 has been ruled out #3. Rule out possibility of acute CHF #4. Lactic acidosis related to sepsis, patient is receiving IV hydration #5. Chronic hypercapnic respiratory failure related to obesity hypoventilation syndrome, and has a trilogy ventilator at home #6. History of VT and pulmonary embolism on Xarelto #7. History of paroxysmal atrial fibrillation on Xarelto, currently in sinus mechanism #8. Gait dysfunction, patient is chronically bedbound #9. Chronic right-sided pleural effusion, previous history of thoracentesis with negative cytology and cultures #10. Chronic pain syndrome #11. Diabetes mellitus type 2, with diabetic neuropathy #12. Degenerative disc disease #13. Previous history of chronic kidney disease stage III #14. Morbid obesity with previous history of gastric sleeve surgery in 2014 #15. History of COPD, former smoker #16. Anxiety and depression, panic disorder Plan: Continue current antibiotics, continue Lasix, vital signs are stable, patient is much more awake and alert on today's exam, responding appropriately, appears to be fluid overloaded, was started on Lasix, today's chest x-ray has been reviewed, showing moderate-sized right pleural effusion, adjacent atelectasis, and infiltrates throughout the remainder the right lung with possibility of underlying pneumonia, will continue with current medical treatment, will follow Pt recently admitted to [facility] on 08/05/19 with acute on chronic CHF/abnormal ECHO- see report/paroxysmal afib/bilateral pleural effusions with R sided thoracentesis. Other hx: Pt denies diabetes stating he has hypoglycemia/pt recently transfered to [facility] for endocrinology consultation-states he wasn't told anything new, states he has bilateral feet neuropathy, colitis, chronic diffuse abdominal pain, chronic generalized pain, fluid retention, bedbound, lower GI bleed, hiatal hernia, DVT in leg which traveled to his lung, DDD, scoliosis, ALEXIS without device, CKD stage III, pseudoseizures with past extensive work up thru [facility], basal cell skin cancer removed from face. Time with Patient: Less than 30
--- NOTE | 2020-10-30 16:48 | CT ---
EXAMINATION TYPE: CT ChestAbdPelvis w con DATE OF EXAM: 10/30/2020 COMPARISON: Chest CT scan 09/16/2019 CT abdomen pelvis 07/12/2019 HISTORY: GERD, difficulty breathing. CT DLP: 4968.4 mGycm Automated exposure control for dose reduction was used. CONTRAST: Performed with IV Contrast, patient injected with 100 mL of Isovue 300. There is oral contrast in the large and small bowel. There is large right pleural effusion. There is airspace consolidation and atelectasis right lower lo be. There is elevation of the right diaphragm. There is pleural thickening left posterior lung base. There is no mediastinal adenopathy. Thoracic aorta is intact. There is no aneurysm or dissection. The re is some contrast in the esophagus. There is apparent previous gastric bariatric surgery. There is no adrenal mass. Kidneys have normal size. There is very little enhancement of the kidneys o n the initial images. Delayed images show some contrast in the renal calyces. This probably some degr ee of renal failure. Ureters are not dilated. There is no hydronephrosis. There is no retroperitoneal adenopathy. Appendix is posterior and appears normal. There is no evidence of a bowel obstruction. T here is no mesenteric edema. There is no ascites or free air. Bladder distends smoothly. There is metal artifact from right hip prosthesis. There is severe osteopo rosis radius and the left hip joint with deformity of the femoral head and lateral femoral head sublu xation. Thoracic and lumbar vertebra have normal alignment. There is no compression fracture. There is minor spurring of the endplates. The bony pelvis is intact. Sternum is intact. IMPRESSION: There is large right pleural effusion with right lower lobe consolidation and atelectasis similar to old exam. There is some pleural thickening and atelectasis left posterior lung base increased compare d to old exam. Decreased renal excretion suggestive of some degree of renal failure. Unchanged. No acute abnormality seen within the abdomen and pelvis. Advanced arthritic change in the left hip joint with probably ol d hip dysplasia. No change.
[2020-10-30] MEDS ORDERED: Magnesium Replacement Protocol 1 EACH MISC MISCELLANE PRN (17:05)
[2020-10-30] MEDS ORDERED: Potassium Replacement Protocol 1 EACH MISC MISCELLANE PRN (17:05)
[2020-10-30 17:08] LABS: Glucose,Whole Blood 82 mg/dL (75-99)
[2020-10-30 17:08] LABS: Glucose,Whole Blood 46 mg/dL (75-99)
--- NOTE | 2020-10-30 18:25 | PN ---
PROGRESS NOTE DATE OF SERVICE: 10/30/2020 This 60-year-old gentleman who was admitted with shortness of breath possibly had acute right lower lobe pneumonia, possibly Gram-negative, possibly aspiration sepsis and acute hypoxic respiratory failure. Covid 19 has been negative. The patient also had right pleural effusion and history of thoracocentesis also. The patient also had significant GERD. I recommend surgical evaluation also. Pulmonary is following the patient closely. I also recommend a CT scan of chest, abdomen and pelvis to delineate further anatomy which I reviewed personally showed large right pleural effusion with right lower lobe consolidation, atelectasis compared to old exam, some pleural thickening and atelectasis of the left posterior lung was also noted and decreased renal excretion was also noted. No acute abnormalities also noted. PAST MEDICAL HISTORY: Reviewed. REVIEW OF SYSTEMS: CARDIOVASCULAR SYSTEM: No angina or palpitations. RESPIRATION: As mentioned earlier. GI: As mentioned earlier. : No dysuria. NERVOUS SYSTEM: No numbness or weakness. CURRENT MEDICATIONS: Reviewed and include: Tylenol, Kennedy, Ventolin, Lipitor, Zithromax, Cardizem, Lasix, NovoLog. Zyprexa. Doses reviewed. PHYSICAL EXAM: Patient alert and oriented times three. Pulse 69. Blood pressure 140/74. Respirations 18, temperature 98.2. Pulse ox 94% on 9 L. HEENT: Conjunctivae normal. NECK: No JVD. CARDIOVASCULAR: S1, S2 muffled. RESPIRATORY SYSTEM: Breath sounds diminished at the bases. Bilateral scattered rhonchi and crackles. ABDOMEN: Soft, nontender. LEGS are no edema, no swelling. NERVOUS SYSTEM: No focal deficits. LABS: Hemoglobin 11.2. Sodium 140, potassium 3.4. Accu-Cheks are noted. ASSESSMENT: 1. Acute right lower lobe pneumonia possibly gram-negative with possibly aspiration with sepsis and acute hypoxic respiratory failure present on admission. 2. Right pleural effusion. 3. History of right pleural effusion previously with multiple thoracocentesis possibly secondary to congestive heart failure. 4. Congestive heart failure, acute exacerbation with acute on chronic diastolic dysfunction, ejection fraction 60-65 percent. 5. Hypokalemia. 6. History of atrial fibrillation, chronic. 7. History of asthma, chronic obstructive pulmonary disease. 8. History of cerebrovascular accident, transient ischemic attack. 9. Diabetes type 2. 10.History of deep vein thrombosis. 11.Gastroesophageal reflux disease. 12.History of gastrointestinal bleed. 13.Hypertension. 14.History of degenerative joint disease. 15.History of pneumonia. 16.History of pulmonary embolism. 17.History of sleep apnea. 18.History of pseudoseizures at [facility]. 19.History of paroxysmal atrial fibrillation. 20.History of bilateral pleural effusion. 21.History of colitis. 22.History of hiatal hernia. 23.History of scoliosis. 24.History of chronic kidney disease stage 3. 25.Bed bound. 26.History of bariatric surgery. 27.History of gastric sleeve surgery. 28.Anxiety, bipolar depression panic disorder schizoaffective disorder. 29.Obesity with body mass index of 53.5. 30.Gait dysfunction. 31.FULL CODE. RECOMMENDATIONS AND DISCUSSION: This 60-year-old gentleman who presented with multiple complex medical issues, at this time I recommend to continue current medication, continue symptomatic treatment. Otherwise at this time I would follow the replacement protocols. Otherwise, continue with the diuretics. Monitor fluid and electrolyte balance closely. Closely follow with Dr. Rondon regarding pleural effusion and aspiration. Otherwise, Dr. Vigil to follow regarding the significant GERD. EGD by Dr. Vigil. Guarded prognosis because of multiple complex medical issues. Further recommendations to follow. MMODL / IJN: [id number] /
[2020-10-30 20:09] LABS: Glucose,Whole Blood 121 mg/dL (75-99)
[2020-10-30] MEDS: OLANZapine 10 MG TAB PO SCH (21:43)
[2020-10-30] MEDS: ATORVASTATIN 10 MG TAB PO SCH (21:43)
[2020-10-31] MEDS: FUROSEMIDE 10 MG/ML 4 ML VIAL IV SCH ×3 (00:37→16:54)
[2020-10-31] MEDS: ALBUTEROL HFA INHALER INHALATION SCH ×4 (01:11→20:27)
[2020-10-31 06:21] LABS: Basophils % (A) 0 %; Eosinophils # (A) 0.1 k/uL (0-0.7); Eosinophils % (A) 2 %; HCT 34.2 % (39.0-53.0); HGB 11.1 gm/dL (13.0-17.5); Lymphocytes # (A) 0.7 k/uL (1.0-4.8); Lymphocytes % (A) 14 %; MCH 28.6 pg (25.0-35.0); MCHC 32.3 g/dL (31.0-37.0); MCV 88.3 fL (80.0-100.0); Mean Platelet Volume 7.1; Monocytes # (A) 0.3 k/uL (0-1.0); Monocytes % (A) 7 %; Neutrophils # (A) 3.7 k/uL (1.3-7.7); Neutrophils % (A) 75 %; Platelet Count 194 k/uL (150-450); RBC 3.87 m/uL (4.30-5.90); RDW 13.8 % (11.5-15.5); WBC 4.9 k/uL (3.8-10.6)
[2020-10-31 06:57] LABS: Glucose,Whole Blood 84 mg/dL (75-99)
[2020-10-31] MEDS: INSULIN ASPART (NovoLOG) 100 UNIT/ML VIAL SQ SCH ×4 (07:04→21:51)
[2020-10-31] MEDS: ACETAMINOPHEN TAB 500 MG TAB PO PRN (08:41)
[2020-10-31 09:57] LABS: African American GFR (CKD) 119.7 (60.0-200.0); BUN/Creat Ratio 18.57 Ratio (12.00-20.00); Calcium 9.4 mg/dL (8.7-10.3); Chloride 95 mmol/L (96-109); Glucose 87 mg/dL (70-110); Magnesium 1.8 mg/dL (1.5-2.4); Non-African American GFR(CKD) 103.3 (60.0-200.0); Potassium 3.6 mmol/L (3.5-5.5); Sodium 142 mmol/L (135-145)
--- NOTE | 2020-10-31 10:00 | P.PN ---
Subjective Progress Note Date: 10/31/20 CHIEF COMPLAINT: CHF HISTORY OF PRESENT ILLNESS: Patient examined this morning at the bedside with Dr. Marshall. Patient denies chest pain or pressure. He denies shortness of breath at the time of examination. Patient is on 2 L nasal cannula with oxygen saturations greater than 92%. He continues to have significant lower extremity edema. Blood pressure 122/65. Heart rate in the 60s and 70s. PHYSICAL EXAM: VITAL SIGNS: Reviewed. GENERAL: Well-developed in no acute distress. HEENT: Head is normocephalic. Pupils are equal, round. Sclerae anicteric. Mucous membranes of the mouth are moist. Neck supple. No JVD or thyromegaly LUNGS: Respirations even and unlabored. Lungs diminished-no rales auscultated. HEART: Regular rate and rhythm. S1 and S2 heard. ABDOMEN: Soft. Nondistended. Nontender. EXTREMITIES: Decreased range of motion of left lower extremity. No clubbing or cyanosis. Peripheral pulses intact. 2-3+ lower extremity edema NEUROLOGIC: Awake and alert. Oriented x 3. ASSESSMENT: Right-sided pneumonia with sepsis Acute on chronic hypoxic respiratory failure Chronic right pleural effusion with previous thoracentesis Chronic diastolic congestive heart failure, EF 55-60 Lower extremity edema, suspect secondary to patient being chronically bedbound and immobility Hypertension Hyperlipidemia Paroxysmal atrial fibrillation, on long-term anticoagulation with Xarelto, currently maintaining sinus mechanism History of DVT and PE Chronically bedbound Diabetes mellitus, type II PLAN: Patient with peripheral edema, normal BNP, likely secondary to immobility. No evidence of acute CHF exacerbation. May continue IV Lasix for lower extremity edema. We will defer to internal me dicine Pulmonary following for pneumonia We will follow on an as-needed basis. Please call with questions or concerns. Nurse practitioner note has been reviewed by physician. Signing provider agrees with the documented findings, assessment, and plan of care. Objective - Vital Signs Vital signs: Vital Signs Temp 98.4 F 10/31/20 05:38 Pulse 68 10/31/20 05:38 Resp 18 10/31/20 05:38 BP 122/65 10/31/20 05:38 Pulse Ox 98 10/31/20 05:38 Intake & Output 10/30/20 10/31/20 10/31/20 18:59 06:59 18:59 Intake Total 1410 Output Total 1000 Balance 410 Intake: Intake, IV Titration 50 Amount cefTRIAXone 2 gm In 50 Sodium Chloride 0.9% 50 ml @ 100 mls/hr IVPB Q24HR [facility] Rx#:[id number] Oral 1360 Output: Urine 1000 Other: Voiding Method Urinal Urinal # Voids 5 4 - Labs CBC & Chem 7: 10/31/20 05:45 10/30/20 06:03 Labs: Abnormal Lab Results - Last 24 Hours (Table) 10/30/20 10/30/20 10/30/20 Range/Units 06:03 11:48 17:04 RBC (4.30-5.90) m/uL Hgb (13.0-17.5) gm/dL Hct (39.0-53.0) % Lymphocytes # (1.0-4.8) k/uL Potassium 3.4 L (3.5-5.5) mmol/L Chloride 95 L (96-109) mmol/L Carbon Dioxide 37.7 H (21.6-31.8) mmol/L BUN/Creatinine Ratio 25.00 H (12.00-20.00) Ratio POC Glucose (mg/dL) 101 H 46 L (75-99) mg/dL 10/30/20 10/31/20 Range/Units 20:06 05:45 RBC 3.87 L (4.30-5.90) m/uL Hgb 11.1 L (13.0-17.5) gm/dL Hct 34.2 L (39.0-53.0) % Lymphocytes # 0.7 L (1.0-4.8) k/uL Potassium (3.5-5.5) mmol/L Chloride (96-109) mmol/L Carbon Dioxide (21.6-31.8) mmol/L BUN/Creatinine Ratio (12.00-20.00) Ratio POC Glucose (mg/dL) 121 H (75-99) mg/dL Microbiology - Last 24 Hours (Table) 10/30/20 11:12 Gram Stain - Preliminary Sputum Sputum Culture - Preliminary 10/29/20 08:47 Blood Culture - Preliminary Blood No Growth after 24 hours
[2020-10-31 11:29] LABS: Glucose,Whole Blood 83 mg/dL (75-99)
[2020-10-31 11:36] LABS: Carbon Dioxide >40.0 mmol/L (21.6-31.8)
--- NOTE | 2020-10-31 13:04 | US ---
EXAMINATION TYPE: US chest DATE OF EXAM: 10/31/2020 COMPARISON: CXR, CT from yesterday. CLINICAL HISTORY: pleural effusion . Pleural effusion TECHNIQUE: Targeted ultrasound of the posterior lower bilateral hemithoraces EXAM MEASUREMENTS: Right Pleural Effusion pocket size: 4.2 cm Right skin surface to fluid distance: 3.6 cm Left Pleural Effusion pocket size: 0 cm Left skin surface to fluid distance: 0 cm Right side marked for possible thoracentesis outside the dept. Left side NOT marked for possible thoracentesis outside the dept. Pulmonologists are able to review the images in the patient?s EMR. There is small to moderate-sized right pleural effusion on the first 3 images saved. No significant l eft-sided effusion on last image. IMPRESSIONS: As above. Findings correlate with CT one day earlier.
--- NOTE | 2020-10-31 13:27 | P.PN ---
Subjective Progress Note Date: 10/31/20 CHIEF COMPLAINT: Shortness of breath HISTORY OF PRESENT ILLNESS: Patient is being followed for GERD and concerns of aspiration. Patient will be scheduled for EGD tomorrow. Patient denies any abdominal pain. Denies any nausea or vomiting. He had computed tomography scan of the chest abdomen and pelvis that shows large right pleural effusion with right lower lobe consolidation and atelectasis. There is some pleural thickening and atelectasis left posterior lung base increased compared to old exam. No acute abnormality seen within the abdomen and pelvis. Afebrile. WBC 4.9 PHYSICAL EXAM: VITAL SIGNS: Reviewed. GENERAL: Well-developed in no acute distress. HEENT: No sclera icterus. Extraocular movements grossly intact. Moist buccal mucosa. Head is atraumatic, normocephalic. ABDOMEN: Soft. Obese. Nondistended. Nontender. NEUROLOGIC: Alert and oriented. Cranial nerves II through XII grossly intact. ASSESSMENT: 1. GERD with concerns of aspiration 2. Right lower lobe pneumonia 3. History of gastric sleeve 4. Morbid obesity 5. History of atrial fibrillation anticoagulated with Xarelto 6. History of DVT and PE anticoagulated with Xarelto 7. Right pleural effusion followed by pulmonary service PLAN: -Patient will be scheduled for EGD tomorrow with Dr. Vigil -Keep patient nothing by mouth after midnight -Continue supportive care Physician Personal Care Service Provider note has been reviewed by physician. Signing provider agrees with the documented findings, assessment, and plan of care. Objective - Vital Signs Vital signs: Vital Signs Temp 98.2 F 10/31/20 10:00 Pulse 64 10/31/20 10:00 Resp 24 10/31/20 10:00 BP 132/71 10/31/20 10:00 Pulse Ox 94 L 10/31/20 11:00 Intake & Output 10/30/20 10/31/20 10/31/20 18:59 06:59 18:59 Intake Total 1410 Output Total 1000 Balance 410 Intake: Intake, IV Titration 50 Amount cefTRIAXone 2 gm In 50 Sodium Chloride 0.9% 50 ml @ 100 mls/hr IVPB Q24HR [facility] Rx#:[id number] Oral 1360 Output: Urine 1000 Other: Voiding Method Urinal Urinal # Voids 5 4 - Labs CBC & Chem 7: 10/31/20 05:45 10/31/20 05:45 Labs: Abnormal Lab Results - Last 24 Hours (Table) 10/30/20 10/30/20 10/31/20 Range/Units 17:04 20:06 05:45 RBC 3.87 L (4.30-5.90) m/uL Hgb 11.1 L (13.0-17.5) gm/dL Hct 34.2 L (39.0-53.0) % Lymphocytes # 0.7 L (1.0-4.8) k/uL Chloride (96-109) mmol/L Carbon Dioxide (21.6-31.8) mmol/L POC Glucose (mg/dL) 46 L 121 H (75-99) mg/dL 10/31/20 Range/Units 05:45 RBC (4.30-5.90) m/uL Hgb (13.0-17.5) gm/dL Hct (39.0-53.0) % Lymphocytes # (1.0-4.8) k/uL Chloride 95 L (96-109) mmol/L Carbon Dioxide >40.0 H* (21.6-31.8) mmol/L POC Glucose (mg/dL) (75-99) mg/dL Microbiology - Last 24 Hours (Table) 10/29/20 08:47 Blood Culture - Preliminary Blood No Growth after 48 hours 10/30/20 11:12 Gram Stain - Preliminary Sputum Sputum Culture - Preliminary
[2020-10-31] MEDS: GABAPENTIN 300 MG CAP PO SCH ×2 (13:36→21:58)
[2020-10-31] MEDS: PANTOPRAZOLE 40 MG TABLET PO SCH (13:36)
[2020-10-31] MEDS: RIVAROXABAN 20 MG TAB PO SCH (13:36)
[2020-10-31] MEDS: OLANZapine 10 MG TAB PO SCH (13:36)
[2020-10-31] MEDS: DULoxetine HCL 60 MG CAPSULE.DR PO SCH (13:36)
[2020-10-31] MEDS: DILTIAZEM ORAL 30 MG TAB PO SCH ×3 (13:37→23:22)
[2020-10-31] MEDS: AZITHROMYCIN 500 MG TAB PO SCH (13:37)
[2020-10-31] MEDS: POTASSIUM CHLORIDE ER 20 MEQ TAB.ER PO SCH ×3 (13:37→21:58)
[2020-10-31] MEDS: LIDOCAINE 5% PATCH TOPICAL SCH ×2 (13:37→15:35)
--- NOTE | 2020-10-31 14:47 | P.PN ---
Subjective Progress Note Date: 10/31/20 Principal diagnosis: Acute on chronic hypoxic respiratory failure possibility of right lung pneumonia 60-year-old white male patient with multiple chronic medical conditions, we had previous encounters with during his previous hospitalizations for shortness of breath related to recurrent right-sided pleural effusion with previous thoracentesis, with cytology showing no evidence of malignancy, showing reactive mesothelial cells predominantly chronic inflammatory cells, cells suggestive of histiocytes suggestive of congestive heart failure. Pleural fluid cultures were negative. Patient has history of obstructive sleep apnea he has a trilogy ventilator at home, morbid obesity, dysfunction, she is bedridden on a regular basis, previous history of DVT and pulmonary embolism on chronic anticoagulation, paroxysmal atrial fibrillation, diabetes mellitus type 2, COPD, hyperlipidemia, osteoarthritis, chronic pain syndrome, and history of depression and bipolar disorder. He presented to the emergency department on 10/29/2020 with complaints of shortness of breath, dry cough, chills, body aches, patient states his had on and off fever for last week and a half, has not been feeling well, but he is trying to avoid coming to the hospital. He is normally on oxygen at home at 2 L on the regular basis. He states his daughter came home and she had previously been exposed to somebody with COVID 19 however she herself tested negative. Denies any nausea vomiting or diarrhea, he states he is not urinating as much as usual although he is on his regular dose of Lasix 40 mg twice daily. In the emergency department chest x-ray was completed showing chronic changes including persistent small to moderate-sized right pleural fluid collection, and new multifocal areas of right upper to mid lung acute infiltrates. COVID 19 PCR was negative, patient was febrile in the emergency department with T-max of 100.9F, he is in sinus mechanism, slightly tachycardic with a rate of between 92-106 BPM, he is currently on 3 L of oxygen his pulse is between 92-96%, he is awake and alert, oriented 3, he is providing history of present illness, he was started on azithromycin and Rocephin for empiric antibiotic coverage for possibility of pneumonia, he is getting IV hydration wi th 0.9 normal saline at a rate of 130 ML per hour. His lab work revealed white blood cell count of 10.5, hemoglobin of 13.1, it was 137, potassium is 3.7, chloride is 93, CO2 is 40, BUN of 18 creatinine is 0.67, plasma lactic acid was 3.8, patient is getting IV fluid hydration, troponin was less than 0.012, LFTs were within normal limits, CRP and LDH were not elevated, urinalysis showed small amount of blood, no clear evidence of infection. On 10/30/2020 patient is seen in follow-up on medical surgical floor, still requiring high flow oxygen, currently at 9 L, with a pulse ox of 94%, hemodyn amically stable, afebrile, breathing comfortably, no worsening dyspnea, which more awake and alert on today's exam, he is oriented 3, no nausea or vomiting, no abdominal pain, blood cultures show no growth. He is on empiric embedded coverage including azithromycin and Rocephin. he was started on Lasix, appears to be quite fluid overloaded, pressure stable, 148/74, his labs have been reviewed, white blood cell, 7.1, hemoglobin is 11.2, sodium is 140, potassium is 3.4, chloride is 95, CO2 37, BUN of 28 creatinine 0.8. Follow-up chest x-ray was reviewed, showing moderate right sided pleural effusion with adjacent atelectasis and/or consolidation. Patchy multifocal infiltrates throughout the remainder of the right lung persistent On 10/31/2020 patient seen in follow-up on medical surgical floor, he is awake and alert, resting comfortably in bed, he states his breathing is improved, he is started on Lasix, currently at 40 mg every 8 hours, he is on empiric antibiotics, his been afebrile, sounds better on today's exam, just some diminished breath sounds over right lower base, no rhonchi, no wheezing, trilogy ventilator was brought from home, he worked for a little bit last night, his lower extremity edema has improved some since yesterday, patient is voiding, his weight is stable, he is in negative fluid balance Objective - Vital Signs Vital signs: Vital Signs Temp 98.2 F 10/31/20 10:00 Pulse 64 10/31/20 10:00 Resp 24 10/31/20 10:00 BP 132/71 10/31/20 10:00 Pulse Ox 94 L 10/31/20 11:00 Intake & Output 10/30/20 10/31/20 10/31/20 18:59 06:59 18:59 Intake Total 1410 Output Total 1000 Balance 410 Intake: Intake, IV Titration 50 Amount cefTRIAXone 2 gm In 50 Sodium Chloride 0.9% 50 ml @ 100 mls/hr IVPB Q24HR [facility] Rx#:[id number] Oral 1360 Output: Urine 1000 Other: Voiding Method Urinal Urinal # Voids 5 4 - Exam GENERAL EXAM: Alert, very pleasant, 60-year-old morbidly obese white male, on 3 L of oxygen with a pulse ox between 92-96%, resting on the gurney in the emergency department oriented 3, comfortable in no apparent distress. HEAD: Normocephalic/atraumatic. EYES: Normal reaction of pupils, equal size. Conjunctiva pink, sclera white. NOSE: Clear with pink turbinates. THROAT: No erythema or exudates. NECK: No masses, no JVD, no thyroid enlargement, no adenopathy. CHEST: No chest wall deformity. Symmetrical expansion. LUNGS: Equal air entry with no crackles, wheeze, rhonchi or dullness. CVS: Regular rate and rhythm, normal S1 and S2, no gallops, no murmurs, no rubs ABDOMEN: Soft, nontender. No hepatosplenomegaly, normal bowel sounds, no guarding or rigidity. EXTREMITIES: No clubbing, significant lower extremity edema, 2+ in bilateral lower extremities, no cyanosis, 2+ pulses and upper and lower extremities. MUSCULOSKELETAL: Muscle strength and tone normal. SPINE: No scoliosis or deformity SKIN: No rashes CENTRAL NERVOUS SYSTEM: Alert and oriented -3. No focal deficits, tone is normal in all 4 extremities. PSYCHIATRIC: Alert and oriented -3. Appropriate affect. Intact judgment and insight. - Labs CBC & Chem 7: 10/31/20 05:45 10/31/20 05:45 Labs: Abnormal Lab Results - Last 24 Hours (Table) 10/30/20 10/30/20 10/31/20 Range/Units 17:04 20:06 05:45 RBC 3.87 L (4.30-5.90) m/uL Hgb 11.1 L (13.0-17.5) gm/dL Hct 34.2 L (39.0-53.0) % Lymphocytes # 0.7 L (1.0-4.8) k/uL Chloride (96-109) mmol/L Carbon Dioxide (21.6-31.8) mmol/L POC Glucose (mg/dL) 46 L 121 H (75-99) mg/dL 10/31/20 Range/Units 05:45 RBC (4.30-5.90) m/uL Hgb (13.0-17.5) gm/dL Hct (39.0-53.0) % Lymphocytes # (1.0-4.8) k/uL Chloride 95 L (96-109) mmol/L Carbon Dioxide >40.0 H* (21.6-31.8) mmol/L POC Glucose (mg/dL) (75-99) mg/dL Microbiology - Last 24 Hours (Table) 10/29/20 08:47 Blood Culture - Preliminary Blood No Growth after 48 hours 10/30/20 11:12 Gram Stain - Preliminary Sputum Sputum Culture - Preliminary Assessment and Plan Plan: Assessment: #1. Acute on chronic hypoxic respiratory failure related to possibility of sepsis, urinalysis showed no clear evidence of infection, there is a possibility of right lung pneumonia #2. Possible right lung pneumonia, COVID 19 has been ruled out #3. Rule out possibility of acute CHF, cor pulmonale #4. Lactic acidosis related to sepsis, patient is receiving IV hydration #5. Chronic hypercapnic respiratory failure related to obesity hypoventilation syndrome, and has a trilogy ventilator at home, on AVAPS mode with TTV 550, Max PSV 25, Min PSV 5, Max EPAP 10, Min EPAP 5. #6. History of VT and pulmonary embolism on Xarelto #7. History of paroxysmal atrial fibrillation on Xarelto, currently in sinus mechanism #8. Gait dysfunction, patient is chronically bedbound #9. Chronic right-sided pleural effusion, previous history of thoracentesis with negative cytology and cultures #10. Chronic pain syndrome #11. Diabetes mellitus type 2, with diabetic neuropathy #12. Degenerative disc disease #13. Previous history of chronic kidney disease stage III #14. Morbid obesity with previous history of gastric sleeve surgery in 2013 #15. History of COPD, former smoker #16. Anxiety and depression, panic disorder Plan: Ultrasound of the chest reviewed, not showing significant fluid for thoracentesis, no plans for thoracentesis at this time, still appears to be significantly fluid volume overloaded, continue with IV diuretics, daily weights, and accurate intake and output. Follow-up labs in the morning, jillian robledoue with current antibiotics, vital signs have been stable, breathing is improving. Follow-up chest x-ray in the morning Pt recently admitted to [facility] on 08/05/19 with acute on chronic CHF/abnormal ECHO- see report/paroxysmal afib/bilateral pleural effusions with R sided thoracentesis. Other hx: Pt denies diabetes stating he has hypoglycemia/pt recently transfered to [facility] for endocrinology consultation-states he wasn't told anything new, states he has bilateral feet neuropathy, colitis, chronic diffuse abdominal pain, chronic generalized pain, fluid retention, bedbound, lower GI bleed, hiatal hernia, DVT in leg which traveled to his lung, DDD, scoliosis, ALEXIS without device, CKD stage III, pseudoseizures with past extensive work up thru [facility], basal cell skin cancer removed from face. Time with Patient: Less than 30
[2020-10-31] MEDS: HYDROcodone/APAP 10-325MG 1 EACH TAB PO PRN (15:36)
[2020-10-31 17:17] LABS: Glucose,Whole Blood 105 mg/dL (75-99)
[2020-10-31] MEDS ORDERED: LIDOCAINE 1% (10MG/ML) FOR IV START INTRADERMA PRN (18:31)
--- NOTE | 2020-10-31 18:56 | PN ---
PROGRESS NOTE DATE OF SERVICE: 10/31/2020 This 60-year-old gentleman was admitted with significant pneumonia on the right side. He is being closely monitored. The patient has some pleural effusion also. Multiple consultants are following the patient closely, including Surgery. EGD is being planned for tomorrow. The patient has significant GERD and risk of aspirations also. The pleural fluid is only 4.2 cm at this time, closely monitored. Past medical history reviewed. COVID-19 was ordered. REVIEW OF SYSTEMS: CARDIOVASCULAR SYSTEM: No angina, palpitations. RESPIRATORY SYSTEM: As mentioned earlier. GI: As mentioned earlier. : No dysuria or retention. NERVOUS SYSTEM: No numbness, weakness. CURRENT MEDICATIONS: Reviewed. They include Tylenol, [place], Ventolin, Lipitor, Zithromax, Rocephin. Doses are reviewed. PHYSICAL EXAMINATION: Patient alert and oriented x3. Pulse 77, blood pressure 140/87, respiration 20, temperature 97.8, pulse ox 100% on 3 L. HEENT: Conjunctivae normal. NECK: No jugular venous distention. CARDIOVASCULAR SYSTEM: S1, S2 muffled. RESPIRATORY SYSTEM: Breath sounds diminished at the bases. Bilateral scattered rhonchi and crackles. ABDOMEN: Soft, non-tender. LEGS: No edema. No swelling. NERVOUS SYSTEM: No focal deficit. LABS: WBC 4.3, hemoglobin 11.1. Sodium 142, potassium 3.6. ASSESSMENT: 1. Acute right lower lobe pneumonia, possibly Gram-negative, with possible aspiration with sepsis and acute hypoxic respiratory failure, present on admission. 2. Right pleural effusion. 3. History of right pleural effusion previously with multiple thoracocenteses, possibly secondary to congestive heart failure. 4. Congestive heart failure, acute exacerbation, with acute on chronic diastolic dysfunction, ejection fraction 60% to 65%. 5. Hypokalemia. 6. History of atrial fibrillation, chronic. 7. History of asthma, chronic obstructive pulmonary disease. 8. Cerebrovascular accident, transient ischemic attack. 9. Diabetes mellitus, type 2. 10.History of deep vein thrombosis. 11.History of gastroesophageal reflux disease. 12.History of gastrointestinal bleed. 13.Hypertension. 14.History of degenerative joint disease. 15.History of pneumonia. 16.History of pulmonary embolism. 17.History of sleep apnea. 18.History of pseudoseizures at [facility]. 19.History of paroxysmal atrial fibrillation. 20.History of bilateral pleural effusion. 21.History of colitis. 22.History of hiatal hernia. 23.History of scoliosis. 24.History of chronic kidney disease, stage 3. 25.Bedbound. 26.History of bariatric surgery. 27.History of gastric sleeve surgery. 28.Anxiety, bipolar, depression, panic disorder, schizoaffective disorder. 29.Obesity with body mass index of 53.5. 30.Gait dysfunction. 31.FULL CODE. RECOMMENDATIONS AND DISCUSSION: I recommend to continue current medications, continue with the monitoring, symptomatic treatment. Otherwise, noted. Continue with antibiotics. Dr. Vigil to perform EGD. Guarded prognosis. Further recommendations to follow. MMODL / IJN: [id number] / RUFINO
[2020-10-31 20:25] LABS: Glucose,Whole Blood 117 mg/dL (75-99)
[2020-10-31] MEDS: ATORVASTATIN 10 MG TAB PO SCH (21:58)
[2020-11-01] MEDS: FUROSEMIDE 10 MG/ML 4 ML VIAL IV SCH ×3 (00:21→15:13)
[2020-11-01] MEDS: LACTATED RINGERS 1,000 ML IV SCH (00:25)
[2020-11-01] MEDS: ALBUTEROL HFA INHALER INHALATION SCH ×4 (02:06→20:01)
[2020-11-01] MEDS: HYDROcodone/APAP 10-325MG 1 EACH TAB PO PRN (02:53)
[2020-11-01 06:21] LABS: Basophils % (A) 1 %; Eosinophils # (A) 0.2 k/uL (0-0.7); Eosinophils % (A) 4 %; HCT 34.3 % (39.0-53.0); Lymphocytes # (A) 0.8 k/uL (1.0-4.8); Lymphocytes % (A) 18 %; MCH 28.4 pg (25.0-35.0); MCHC 32.2 g/dL (31.0-37.0); MCV 88.5 fL (80.0-100.0); Mean Platelet Volume 7.4; Monocytes # (A) 0.3 k/uL (0-1.0); Monocytes % (A) 6 %; Neutrophils % (A) 69 %; Platelet Count 197 k/uL (150-450); RBC 3.87 m/uL (4.30-5.90); RDW 13.6 % (11.5-15.5); WBC 4.3 k/uL (3.8-10.6)
[2020-11-01 07:18] LABS: Glucose,Whole Blood 71 mg/dL (75-99)
[2020-11-01] MEDS: INSULIN ASPART (NovoLOG) 100 UNIT/ML VIAL SQ SCH ×4 (07:20→21:52)
--- NOTE | 2020-11-01 08:00 | XR ---
EXAMINATION TYPE: XR chest 1V portable DATE OF EXAM: 11/01/2020 COMPARISON: 10/30/2020 INDICATION: Pneumonia, coughing TECHNIQUE: Single frontal view of the chest is obtained. FINDINGS: The heart size is normal. The pulmonary vasculature is normal. Right lower lobe infiltrate is present. Right pleural effusion is present. Left costophrenic angle is excluded from the [id number]. IMPRESSION: 1. Right lower lobe infiltrate and right pleural effusion. Findings are stable.
[2020-11-01] MEDS: PANTOPRAZOLE 40 MG TABLET PO SCH (09:55)
[2020-11-01 09:56] LABS: African American GFR (CKD) 119.7 (60.0-200.0); BUN/Creat Ratio 18.57 Ratio (12.00-20.00); Calcium 9.3 mg/dL (8.7-10.3); Chloride 92 mmol/L (96-109); Glucose 85 mg/dL (70-110); Non-African American GFR(CKD) 103.3 (60.0-200.0); Potassium 3.6 mmol/L (3.5-5.5); Sodium 141 mmol/L (135-145)
[2020-11-01 11:13] LABS: Glucose,Whole Blood 77 mg/dL (75-99)
[2020-11-01] MEDS: DILTIAZEM ORAL 30 MG TAB PO SCH ×3 (12:18→21:53)
[2020-11-01] MEDS: ACETAMINOPHEN TAB 500 MG TAB PO PRN (12:25)
[2020-11-01] MEDS ORDERED: KETAMINE 10 MG/ML 20 ML VIAL ONE (14:20)
[2020-11-01] MEDS ORDERED: PROPOFOL 10 MG/ML 20 ML VIAL IV ONE (14:20)
[2020-11-01] MEDS ORDERED: LIDOCAINE 1% INJ 10MG/ML (20 ML MDV) ONE (14:20)
[2020-11-01] MEDS ORDERED: MIDAZOLAM 2 MG/2 ML VIAL ONE (14:20)
[2020-11-01] MEDS ORDERED: IV FLUID CONTINUATION 1,000 ML IV ONE ×2 (14:21)
--- NOTE | 2020-11-01 14:35 | P.OP ---
Date of Procedure: 11/01/20 Preoperative Diagnosis: GERD Postoperative Diagnosis: Antral gastritis Procedure(s) Performed: EGD Anesthesia: MAC Surgeon: Robb Vigil Pathology: other (Antrum) Condition: stable Disposition: PACU Description of Procedure: Patient's placed on the endoscopy table in the lateral position. He received IV sedation. The gastroscope was oropharynx passed in the esophagus and stomach. Scope then placed through the pylorus. The first second portion duodenum appeared normal. Scope was then brought back the antrum this was mildly inflamed. A biopsies performed. The scope was then brought back there is no evidence of any gastric sleeve stricture. The sleeve was widely patent. The GE junction was at 40 cm the distal esophagus appeared normal. The proximal esophagus appeared normal. Scope was withdrawn for patient. There is no evidence of any reflux. The patient will undergo esophagram when he is medically stable
[2020-11-01] MEDS: AZITHROMYCIN 500 MG TAB PO SCH (15:12)
[2020-11-01] MEDS: RIVAROXABAN 20 MG TAB PO SCH (15:12)
[2020-11-01] MEDS: DULoxetine HCL 60 MG CAPSULE.DR PO SCH (15:12)
[2020-11-01] MEDS: POTASSIUM CHLORIDE ER 20 MEQ TAB.ER PO SCH ×3 (15:12→21:52)
[2020-11-01] MEDS: LIDOCAINE 5% PATCH TOPICAL SCH (15:18)
[2020-11-01] MEDS: GABAPENTIN 300 MG CAP PO SCH ×2 (15:39→21:52)
--- NOTE | 2020-11-01 16:44 | PN ---
PROGRESS NOTE This is a 60-year-old gentleman, well known to our service. He was admitted back on October 29, 2020. He came in with a history of acute on chronic hypoxemic respiratory failure, likely related to underlying sepsis. There was no clear-cut evidence of infection in the urine, which is what he thought he had, but there was a possibility of pneumonia, particularly involving the right upper lobe. The patient is doing a bit better. He has a history of multiple medical problems. He underwent an EGD today by Dr. Vigil. Apparently, it showed no evidence of any significant acid reflux. Currently, he is feeling well. No major complaints. Feeling fine. Denies any shortness of breath. No fever. No chills. No chest pain or chest discomfort. No abdominal pain. No nausea, vomiting or diarrhea. Current vital signs include temperature 98, heart rate 68, respiratory rate 19, blood pressure 128/75 mean 92 saturations are 92% on 2 L. Appears in no acute distress. HEENT: Examination is grossly unremarkable. NECK: Supple, full range of motion. No adenopathy. Neck veins are flat. CARDIOVASCULAR: Examination reveals regular rhythm and rate. Heart rate 68. S1, S2 normal. No S3, S4, or murmur. LUNGS: Reveal a few scattered rhonchi. Breath sounds are equal bilaterally. No crackles. ABDOMEN: Obese. Bowel sounds are heard. EXTREMITIES: Reveal no edema. SKIN: Without rash. NEUROLOGIC: Examination reveals it to be relatively normal, although he has significant weakness of the lower extremities. LAB DATA: Reviewed. White count 4.3, hemoglobin 11, hematocrit 34.3, platelet count 197,000. Sodium 141, potassium 3.6, chloride 92, CO2 greater than 40, BUN and creatinine were 13 and 0.7. Calcium 9.3. Microbiology is negative including sputum and blood sampling. The most recent chest x-ray from November 01 shows chronic right lower lobe infiltrate and right-sided pleural effusion. Again, these changes are stable. CURRENT MEDICATIONS: Reviewed. The patient is on Tylenol, albuterol inhaler, Lipitor, Zithromax, [place], Cardizem, Cymbalta, Lasix, gabapentin, [place], insulin, lidocaine patch, magnesium replacement, Zyprexa, Protonix, potassium chloride, and Xarelto. ASSESSMENT: 1. Acute on chronic hypoxemic respiratory failure, possibly related to underlying sepsis, source unknown. Urine was clean. Chest. x-ray showed possible right upper lobe infection/pneumonia. 2. COVID-19 pneumonitis/pneumonia has been ruled out. 3. History of congestive heart failure with cor pulmonale. 4. Lactic acidosis, related to underlying sepsis, resolved. 5. Chronic hypercapnic respiratory failure, secondary to Pickwickian syndrome, the patient had a home trilogy ventilator, with average volume-assured pressure support (ADA PS), with a targeted tidal volume of 550, maximal pressure support of 25, minimal pressure support of 5, maximal EPAP of 10 and minimal EPAP of 5. 6. History of deep venous thrombosis and pulmonary embolism, currently on Xarelto. 7. Paroxysmal atrial fibrillation. 8. Chronic lower extremity weakness and generalized immobility. 9. Chronic right-sided pleural effusion, status post thoracentesis in the past, cultures and cytology negative. 10.Chronic pain syndrome. 11.Type 2 diabetes mellitus with diabetic neuropathy. 12.Degenerative disc disease. 13.Stage 3 chronic kidney disease. 14.Morbid obesity. 15.History of chronic obstructive pulmonary disease. 16.History of anxiety and depression. PLAN: Currently, the patient seems to be doing relatively well. He remains only on Zithromax. Culture data has been negative. He has been afebrile. Blood pressure has been stable. No additional recommendations are made. He underwent an EGD today because of acid reflux disease. He was apparently normal. It was done by Dr. Vigil. Will continue to follow. MMODL / IJN: [id number] /
[2020-11-01 17:09] LABS: Glucose,Whole Blood 126 mg/dL (75-99)
--- NOTE | 2020-11-01 17:20 | PN ---
PROGRESS NOTE DATE OF SERVICE: 11/01/2020 This is a 60-year-old gentleman who was admitted with significant pneumonia, is being closely monitored at this time. The patient had a chest x-ray today which I reviewed personally, showed significant pleural effusion on the right side. However, the chest ultrasound only showed 4.2 cm pleural effusion on the right side. The COVID-19 was negative. Influenza also negative. PAST MEDICAL HISTORY: Reviewed. REVIEW OF SYSTEMS: CARDIOVASCULAR SYSTEM: No angina. RESPIRATION: As mentioned earlier. GI: As mentioned earlier. : No dysuria. NERVOUS SYSTEM: No focal deficits. CURRENT MEDICATIONS: Reviewed and include: 1. Tylenol. 2. [place]. 3. Ventolin. 4. Lipitor. 5. Zithromax. 6. Cardizem. 7. Lasix. 8. Neurontin, replacement protocol. 9. Xarelto. PHYSICAL EXAMINATION: Patient is alert and oriented x3. Pulse is 61, blood pressure 130/90, respiration 20, temperature 98.2, pulse ox 100% on 3 L. HEENT: Conjunctivae normal. NECK: No jugular venous distension. CARDIOVASCULAR SYSTEM: S1, S2, muffled. RESPIRATORY SYSTEM: Breath sounds diminished at the bases, a few scattered rhonchi, no crackles. ABDOMEN: Soft, nontender. LEGS: No edema. No swelling. NERVOUS SYSTEM: No focal deficits. LABS: WBC 4.2, hemoglobin is 11, sodium 141, potassium 3.6, CO2 is more than 40. ASSESSMENT: 1. Acute right lower lobe pneumonia, possibly gram-negative with possible aspiration with sepsis and acute hypoxic respiratory failure, present on admission. 2. Right pleural effusion, history of right pleural effusion previously with multiple thoracocentesis, possibly secondary to congestive heart failure. 3. CHF acute exacerbation with acute on chronic diastolic dysfunction, ejection fraction 60% to 65%. 4. Hypokalemia. 5. History atrial fibrillation, chronic. 6. History of asthma, chronic obstructive pulmonary disease. 7. CVA, TIA history. 8. Diabetes mellitus type 2. 9. History of deep vein thrombosis. 10.History of gastroesophageal reflux disease. 11.History of gastrointestinal bleed. 12.Hypertension. 13.History of degenerative joint disease. 14.History of pneumonia. 15.History of pulmonary embolism. 16.History of sleep apnea. 17.History of pseudoseizures at [facility]. 18.History of paroxysmal atrial fibrillation. 19.History of bilateral pleural effusions. 20.History of colitis. 21.History of hiatal hernia. 22.History of scoliosis. 23.History of chronic kidney disease stage 3. 24.Bed-bound. 25.History of bariatric surgery. 26.History of gastric sleeve surgery. 27.Anxiety, bipolar depression, panic disorder, schizoaffective disorder. 28.Obesity with body mass index of 53.5. 29.Gait dysfunction. 30.FULL CODE. RECOMMENDATION: Recommend to continue current medication, continue symptomatic treatment. Otherwise at this time I recommend continue the current medications. Dr. Vigil has performed an EGD today which showed antral gastritis, recommend esophagogram when the patient is medically stable. Otherwise, repeat labs. Continue the rest of medications. Prognosis guarded. Further recommendations to follow. The most recent chest x-ray reviewed. MMODL / IJN: [id number] /
[2020-11-01 20:20] LABS: Glucose,Whole Blood 155 mg/dL (75-99)
[2020-11-01] MEDS: ATORVASTATIN 10 MG TAB PO SCH (21:52)
[2020-11-01] MEDS: OLANZapine 10 MG TAB PO SCH (21:54)
[2020-11-02] MEDS: FUROSEMIDE 10 MG/ML 4 ML VIAL IV SCH ×4 (00:01→23:05)
[2020-11-02] MEDS: LACTATED RINGERS 1,000 ML IV SCH ×2 (00:21→16:58)
[2020-11-02] MEDS: ALBUTEROL HFA INHALER INHALATION SCH ×4 (02:23→19:10)
[2020-11-02 07:10] LABS: Glucose,Whole Blood 85 mg/dL (75-99)
[2020-11-02] MEDS: INSULIN ASPART (NovoLOG) 100 UNIT/ML VIAL SQ SCH ×4 (07:52→20:30)
[2020-11-02] MEDS: PANTOPRAZOLE 40 MG TABLET PO SCH (11:06)
[2020-11-02] MEDS: DULoxetine HCL 60 MG CAPSULE.DR PO SCH (11:07)
[2020-11-02] MEDS: POTASSIUM CHLORIDE ER 20 MEQ TAB.ER PO SCH ×3 (11:07→23:05)
[2020-11-02] MEDS: GABAPENTIN 300 MG CAP PO SCH ×2 (11:07→23:05)
[2020-11-02] MEDS: AZITHROMYCIN 500 MG TAB PO SCH (11:08)
[2020-11-02] MEDS: RIVAROXABAN 20 MG TAB PO SCH (11:08)
[2020-11-02] MEDS: DILTIAZEM ORAL 30 MG TAB PO SCH ×3 (11:08→23:05)
--- NOTE | 2020-11-02 11:12 | P.PN ---
Progress Note - Text Progress Note Date: 11/02/20 Patient is resting comfortably in bed. He underwent EGD yesterday. There is no evidence of any sleeve obstruction. On exam vital signs are stable. Abdomen soft. Her patient will undergo esophagram upper GI when he is medically stable
[2020-11-02 11:15] LABS: Glucose,Whole Blood 78 mg/dL (75-99)
--- NOTE | 2020-11-02 15:29 | PN ---
PROGRESS NOTE PULMONARY/CRITICAL CARE PROGRESS NOTE: DATE OF SERVICE: 11/02/2020 HISTORY: This is a 60-year-old gentleman, well known to our service. He was admitted back on October 29. He came into the emergency room with acute on chronic hypoxemic respiratory failure, thought to be related to underlying sepsis and possible pneumonia. He was concerned about a urinary tract infection. We were concerned about the possibility of right upper lobe pneumonia. Currently, he is doing much better. He did have EGD yesterday by Dr. Vigil. It apparently showed no significant evidence of acid reflux disease. Today, he is resting comfortably. Feeling much better. Hopefully he can be discharged in next day or 2. PHYSICAL EXAMINATION: VITAL SIGNS: Current vital signs are reviewed. Temperature 98.4, heart rate 76, respiratory rate 18, blood pressure 135/70, mean 91, 3 L saturation 95%. Appears in no acute distress. HEENT: Examination is grossly unremarkable. NECK: Supple. Full range of motion. No adenopathy. Neck veins are flat. CARDIOVASCULAR: Examination reveals regular rhythm and rate. Heart rate 76 beats per minute. S1, S2 normal. LUNGS: Relatively clear breath sounds. A few scattered rhonchi at the right base. No crackles. No wheezes. ABDOMEN: Obese. Bowel sounds are heard. EXTREMITIES: Intact. Slight edema. SKIN: Without rash. NEUROLOGIC: Examination is brief but nonfocal. He has profound lower extremity weakness. CURRENT LABORATORY DATA: Reviewed. Nothing new to report from the . Microbiology is all negative including blood and sputum. No recent chest x-ray. His last chest x-ray was on November 01. It showed chronic right lower lobe changes. CURRENT MEDICATIONS: Reviewed. The patient is on Tylenol, albuterol inhaler, Lipitor, Zithromax, Belbuca, diltiazem, Cymbalta, Lasix, Neurontin, [place], insulin, Lidoderm patch, magnesium replacement, Zyprexa, Protonix, potassium replacement, and Xarelto. ASSESSMENT: 1. Acute on chronic hypoxemic respiratory failure, possibly related to underlying sepsis, source unknown. Urine was clean. Chest x-ray appeared to show a right upper lobe infiltrate. 2. COVID-19 pneumonia/pneumonitis, ruled out. 3. History of congestive heart failure with cor pulmonale, stable. 4. Lactic acidosis, resolved. 5. Chronic hypercapnic respiratory failure secondary to Pickwickian syndrome, the patient has a home Trilogy ventilator with average volume-assured pressure support (AVAPS) with a targeted tidal volume of 550, maximal pressure support of 25, minimal pressure support of 5, maximum EPAP of 10 and minimal EPAP of 5, as setting. 6. History of deep venous thrombosis and pulmonary embolism, currently on Xarelto. 7. Paroxysmal atrial fibrillation. 8. Chronic lower extremity weakness and generalized immobility. 9. Chronic right-sided pleural effusion, status post thoracentesis in the past, cultures and cytology negative. 10.Chronic pain syndrome. 11.Type 2 diabetes mellitus with diabetic neuropathy. 12.Degenerative disk disease. 13.Stage 3 chronic kidney disease. 14.Morbid obesity. 15.History of chronic obstructive pulmonary disease. 16.History of anxiety and depression. PLAN: The patient is doing well. EGD was negative. We will continue to follow. Hopeful discharge in the next 24 to 48 hours. The patient appears to be doing relatively well. His overall condition has improved. MMODL / IJN: [id number] /
[2020-11-02 16:42] LABS: Glucose,Whole Blood 91 mg/dL (75-99)
[2020-11-02 20:29] LABS: Glucose,Whole Blood 124 mg/dL (75-99)
[2020-11-02] MEDS: HYDROcodone/APAP 10-325MG 1 EACH TAB PO PRN (20:29)
[2020-11-02] MEDS: ATORVASTATIN 10 MG TAB PO SCH (23:04)
[2020-11-02] MEDS: OLANZapine 10 MG TAB PO SCH (23:20)
[2020-11-03] MEDS: ALBUTEROL HFA INHALER INHALATION SCH ×4 (00:12→19:03)
[2020-11-03 07:07] LABS: Glucose,Whole Blood 86 mg/dL (75-99)
[2020-11-03] MEDS: INSULIN ASPART (NovoLOG) 100 UNIT/ML VIAL SQ SCH ×4 (07:13→22:22)
[2020-11-03 07:18] LABS: Basophils % (A) 1 %; Eosinophils # (A) 0.1 k/uL (0-0.7); Eosinophils % (A) 3 %; HCT 37.3 % (39.0-53.0); Hypochromasia Slight; Lymphocytes # (A) 0.9 k/uL (1.0-4.8); Lymphocytes % (A) 20 %; MCH 28.6 pg (25.0-35.0); MCHC 32.1 g/dL (31.0-37.0); MCV 89.1 fL (80.0-100.0); Mean Platelet Volume 7.3; Monocytes # (A) 0.3 k/uL (0-1.0); Monocytes % (A) 6 %; Neutrophils # (A) 2.9 k/uL (1.3-7.7); Neutrophils % (A) 67 %; Platelet Count 224 k/uL (150-450); RBC 4.18 m/uL (4.30-5.90); RDW 13.5 % (11.5-15.5); WBC 4.3 k/uL (3.8-10.6)
[2020-11-03] MEDS: FUROSEMIDE 10 MG/ML 4 ML VIAL IV SCH ×2 (09:07→16:21)
[2020-11-03] MEDS: PANTOPRAZOLE 40 MG TABLET PO SCH (09:07)
[2020-11-03] MEDS: GABAPENTIN 300 MG CAP PO SCH ×2 (09:07→22:29)
[2020-11-03] MEDS: POTASSIUM CHLORIDE ER 20 MEQ TAB.ER PO SCH ×3 (09:08→22:29)
[2020-11-03] MEDS: LIDOCAINE 5% PATCH TOPICAL SCH (09:08)
[2020-11-03] MEDS: DULoxetine HCL 60 MG CAPSULE.DR PO SCH (09:08)
[2020-11-03] MEDS: OLANZapine 10 MG TAB PO SCH (09:09)
[2020-11-03] MEDS: DILTIAZEM ORAL 30 MG TAB PO SCH ×3 (09:09→22:29)
[2020-11-03] MEDS: RIVAROXABAN 20 MG TAB PO SCH (09:09)
[2020-11-03] MEDS: AZITHROMYCIN 500 MG TAB PO SCH (09:09)
--- NOTE | 2020-11-03 11:13 | P.PN ---
Progress Note - Text Progress Note Date: 11/03/20 Patient's pressing cough in his bed. He has eat most of the straight. On exam vital signs are stable. Abdomen soft. Her facial have esophagram performed when he is stable.
[2020-11-03 11:29] LABS: Glucose,Whole Blood 110 mg/dL (75-99)
[2020-11-03] MEDS: HYDROcodone/APAP 10-325MG 1 EACH TAB PO PRN (11:47)
[2020-11-03 12:45] LABS: Calcium 9.5 mg/dL (8.7-10.3); Chloride 92 mmol/L (96-109); Glucose 96 mg/dL (70-110); Non-African American GFR(CKD) 93.2 (60.0-200.0); Potassium 3.8 mmol/L (3.5-5.5); Sodium 144 mmol/L (135-145)
[2020-11-03 16:44] LABS: Glucose,Whole Blood 59 mg/dL (75-99)
[2020-11-03 17:02] LABS: Glucose,Whole Blood 118 mg/dL (75-99)
--- NOTE | 2020-11-03 18:30 | PN ---
PROGRESS NOTE PULMONARY/CRITICAL CARE PROGRESS NOTE: DATE OF SERVICE: November 03, 2020. This is a 60-year-old male, well known to our service. He was admitted back on October 29, 2020. He came into the emergency room with complaints of acute on chronic hypoxemic respiratory failure, thought to be related to underlying sepsis and possible pneumonia. He himself was concerned about a possible urinary tract infection. In addition, his chest x-ray initially suggested a possible right upper lobe pneumonia. Currently, he is doing much better. He had an EGD done by Dr. Vigil a couple days ago which showed no significant acid reflux disease or any other significant pathologic findings. He is resting comfortably. He is currently on 2 L. He denies any chest pain or pressure. He is not coughing. He is not producing any phlegm. There is no fever or chills. PHYSICAL EXAMINATION: Current vital signs are reviewed. Temperature 97.7, heart rate 75, respiratory rate 17, blood pressure 148/71, mean 98, 2 L saturation 99%. He appears in no acute distress. HEENT: Examination is grossly unremarkable. NECK: Supple, full range of motion. No adenopathy. Neck veins are flat. CARDIOVASCULAR: Examination reveals regular rhythm and rate. Heart rate 75 beats per minute. S1, S2 normal. LUNGS: Reveal a few scattered rhonchi. No crackles. Breath sounds are diminished at the right base. No wheezes. ABDOMEN: Soft. Bowel sounds are heard. EXTREMITIES are intact. Mild edema. SKIN: Without rash. NEUROLOGIC: Examination reveals significant weakness of the lower extremities. CURRENT LABORATORY DATA: Includes a white count of 4.3, hemoglobin 12, hematocrit 37.3, platelet count 324,000. Sodium 144, potassium 3.8, chloride 92, CO2 is greater than 40. BUN is 18, creatinine 0.9. Calcium 9.5. Microbiology shows blood and sputum sampling to be negative. No recent chest x-ray. A chest x-ray dated November 01 shows chronic changes in the right lower lobe. There is also right-sided pleural effusion. CURRENT MEDICATIONS: Reviewed. He is currently on Tylenol, albuterol inhaler, Lipitor, Belbuca, diltiazem, Cymbalta, Lasix, gabapentin, [place], NovoLog insulin, Lidoderm patch, magnesium replacement, Zyprexa Protonix, K-Dur and Xarelto. ASSESSMENT: 1. Acute on chronic hypoxemic respiratory failure, possibly related to underlying sepsis, source unknown. Urine was clean. Chest x-ray appeared to show a right upper lobe infiltrate, although the most recent x-rays are improved. 2. COVID-19 pneumonia/pneumonitis ruled out. 3. History of congestive heart failure with cor pulmonale, stable. 4. Lactic acidosis, resolved. 5. Chronic hypercapnic respiratory failure, secondary to Pickwickian syndrome. 6. The patient uses a Trilogy ventilator at home with average volume-assured pressure support with a targeted tidal volume of 550, maximal pressure support of 25, minimal pressure support of 5, maximal EPAP of 10 and minimal EPAP of 5. 7. History of deep venous thrombosis and pulmonary embolism, currently on Xarelto. 8. Paroxysmal atrial fibrillation. 9. Chronic lower extremity weakness and generalized immobility. 10.Chronic right-sided pleural effusion, status post thoracentesis in the past, cultures and cytology negative. 11.Chronic pain syndrome. 12.Type 2 diabetes mellitus with diabetic neuropathy. 13.Degenerative disk disease. 14.Stage 3 chronic kidney disease. 15.Morbid obesity. 16.History of underlying chronic obstructive pulmonary disease. 17.History of anxiety/depression. PLAN: The patient is doing better. Hopeful discharge in next 24 to 48 hours. The EGD did not show any acute abnormalities. The patient appears to be doing well. He has been weaned back down to 2 L nasal O2. He has been afebrile. He has no major complaints at this time. We will continue to follow. Prognosis is guarded. MMODL / IJN: [id number] /
[2020-11-03 20:36] LABS: Glucose,Whole Blood 80 mg/dL (75-99)
[2020-11-03] MEDS: LACTATED RINGERS 1,000 ML IV SCH (22:02)
[2020-11-03] MEDS: ATORVASTATIN 10 MG TAB PO SCH (22:29)
[2020-11-04] MEDS: HYDROcodone/APAP 10-325MG 1 EACH TAB PO PRN ×2 (00:08→12:03)
[2020-11-04] MEDS: FUROSEMIDE 10 MG/ML 4 ML VIAL IV SCH ×3 (00:08→21:59)
--- NOTE | 2020-11-04 00:41 | P.PN ---
Subjective Progress Note Date: 11/03/20 Patient is a 60-year-old male was admitted to the hospital due to significant pneumonia. Chest x-ray showed significant pleural effusion on the right side. Ultrasound only showed 4.2 cm pleural effusion on the right side. COVID-19 test was negative. Influenza is also negative. Patient is being followed by pulmonary. 11/02/2020 Patient is currently resting in the bed comfortably. Patient had EGD done by Dr. Willoughby due to possible persistent aspiration but no significant evidence of acid reflux was noted. Currently on oxygen at 2 L via nasal cannula. Laboratory data reviewed. Current medications reviewed. Objective - Vital Signs Vital signs: Vital Signs Temp 97.7 F 11/03/20 14:00 Pulse 75 11/03/20 14:00 Resp 17 11/03/20 14:00 BP 148/74 11/03/20 14:00 Pulse Ox 99 11/03/20 14:00 Intake & Output 11/02/20 11/03/20 11/03/20 18:59 06:59 18:59 Output Total 3000 1650 Balance -3000 -1650 Weight 198.475 kg Output: Urine 3000 1650 Other: Voiding Method Urinal Urinal Urinal # Voids 1 - Exam PHYSICAL EXAMINATION: Patient is lying in the bed comfortably, no acute distress, awake alert and oriented.Morbidly obese. . HEENT: Normocephalic. Neck is supple. Pupils reactive. Nostrils clear. Oral cavity is moist. Ears reveal no drainage. Neck reveals no JVD, carotid bruits, or thyromegaly. CHEST EXAMINATION: Trachea is central. Symmetrical expansion.Bibasilar diminished air entry and scattered coarse breath sounds.. CARDIAC: Normal S1, S2 with no gallops. No murmurs ABDOMEN: Soft. Bowel sounds normal. No organomegaly. No abdominal bruits. Extremities: trace edema. No clubbing or cyanosis Neurologically awake, alert, oriented x3 with well-coordinated movements. No focal deficits noted Skin: No rash or skin lesions. Psychiatric: Coperative. Nonsuicidal Musculoskeletal: No joint swelling or deformity. Normal range of motion. - Labs CBC & Chem 7: 11/03/20 06:27 11/03/20 06:27 Labs: Abnormal Lab Results - Last 24 Hours (Table) 11/02/20 11/03/20 11/03/20 Range/Units 20:27 06:27 06:27 RBC 4.18 L (4.30-5.90) m/uL Hgb 12.0 L (13.0-17.5) gm/dL Hct 37.3 L (39.0-53.0) % Lymphocytes # 0.9 L (1.0-4.8) k/uL Chloride 92 L (96-109) mmol/L Carbon Dioxide >40.0 H* (21.6-31.8) mmol/L POC Glucose (mg/dL) 124 H (75-99) mg/dL 11/03/20 11/03/20 11/03/20 Range/Units 11:28 16:38 17:01 RBC (4.30-5.90) m/uL Hgb (13.0-17.5) gm/dL Hct (39.0-53.0) % Lymphocytes # (1.0-4.8) k/uL Chloride (96-109) mmol/L Carbon Dioxide (21.6-31.8) mmol/L POC Glucose (mg/dL) 110 H 59 L 118 H (75-99) mg/dL Microbiology - Last 24 Hours (Table) 10/29/20 08:47 Blood Culture - Preliminary Blood No Growth after 120 hours Assessment and Plan Assessment: Acute right lower lobe pneumonia possibly gram-negative with possible aspiration with sepsis. Acute hypoxic respiratory. Present on admission. Right pleural effusion with history of right pleural effusion previously with multiple thoracentesis secondary CHF CHF with exacerbation acute on chronic CHF diastolic function Hypokalemia Chronic atrial fibrillation Asthma/COPD History of CVA/TIA Diabetes type 2 History of DVT GERD History of GI bleed Hyperlipidemia Hypertension History of PE Obstructive sleep apnea History of pseudoseizures at [facility] Hiatal hernia Scoliosis CKD stage III Patient is bedbound History of bariatric surgery and gastric sleeve surgery Anxiety/depression/bipolar disorder and panic disorder and schizoaffective disorder Morbid obesity BMI 53.5 Gait dysfunction Patient is full code Plan: Patient will be continued breathing treatments and continue with IV Lasix. Monitor renal function closely. Monitor volume status. Pulmonary and general surgery is on board. Overall clinical status improving. Further recommendations based on clinical course. Prognosis guarded. Time with Patient: Greater than 30
--- NOTE | 2020-11-04 00:43 | P.PN ---
Subjective Progress Note Date: 11/02/20 Principal diagnosis: Acute right lower lobe pneumonia possibly gram-negative with possible aspiration with sepsis. Acute hypoxic respiratory. Present on admission Patient is a 60-year-old male was admitted to the hospital due to significant pneumonia. Chest x-ray showed significant pleural effusion on the right side. Ultrasound only showed 4.2 cm pleural effusion on the right side. COVID-19 test was negative. Influenza is also negative. Patient is being followed by [facility]. 11/02/2020 Patient is currently resting in the bed comfortably. Patient had EGD done by Dr Matthew Willoughby due to possible persistent aspiration but no significant evidence of acid reflux was noted. Currently on oxygen at 2 L via nasal cannula. Laboratory data reviewed. Current medications reviewed. Objective - Vital Signs Vital signs: Vital Signs Temp 98.4 F 11/02/20 14:40 Pulse 76 11/02/20 14:40 Resp 18 11/02/20 14:40 BP 135/70 11/02/20 14:40 Pulse Ox 95 11/02/20 14:40 Intake & Output 11/01/20 11/02/20 11/02/20 18:59 06:59 18:59 Intake Total 100 Output Total 400 1250 Balance -300 -1250 Intake: IV 100 Output: Urine 400 1250 Other: Voiding Method Urinal Urinal - Exam PHYSICAL EXAMINATION: Patient is lying in the bed comfortably, no acute distress, awake alert and oriented.Morbidly obese. . HEENT: Normocephalic. Neck is supple. Pupils reactive. Nostrils clear. Oral cavity is moist. Ears reveal no drainage. Neck reveals no JVD, carotid bruits, or thyromegaly. CHEST EXAMINATION: Trachea is central. Symmetrical expansion.Bibasilar diminished air entry and scattered coarse breath sounds.. CARDIAC: Normal S1, S2 with no gallops. No murmurs ABDOMEN: Soft. Bowel sounds normal. No organomegaly. No abdominal bruits. Extremities: trace edema. No clubbing or cyanosis Neurologically awake, alert, oriented x3 with well-coordinated movements. No focal deficits noted Skin: No rash or skin lesions. Psychiatric: Coperative. Nonsuicidal Musculoskeletal: No joint swelling or deformity. Normal range of motion. - Labs CBC & Chem 7: 11/03/20 06:27 11/03/20 06:27 Labs: Abnormal Lab Results - Last 24 Hours (Table) 11/01/20 Range/Units 20:12 POC Glucose (mg/dL) 155 H (75-99) mg/dL Microbiology - Last 24 Hours (Table) 10/29/20 08:47 Blood Culture - Preliminary Blood No Growth after 96 hours Assessment and Plan Assessment: Acute right lower lobe pneumonia possibly gram-negative with possible aspiration with sepsis. Acute hypoxic respiratory. Present on admission. Right pleural effusion with history of right pleural effusion previously with multiple thoracentesis secondary CHF CHF with exacerbation acute on chronic CHF diastolic function Hypokalemia Chronic atrial fibrillation Asthma/COPD History of CVA/TIA Diabetes type 2 History of DVT GERD History of GI bleed Hyperlipidemia Hypertension History of PE Obstructive sleep apnea History of pseudoseizures at [facility] Hiatal hernia Scoliosis CKD stage III Patient is bedbound History of bariatric surgery and gastric sleeve surgery Anxiety/depression/bipolar disorder and panic disorder and schizoaffective disorder Morbid obesity BMI 53.5 Gait dysfunction Patient is full code Plan: Patient will be continued breathing treatments and continue with IV Lasix. Monitor renal function closely. Monitor volume status. Pulmonary and general surgery is on board. Overall clinical status improving. Further recommendations based on clinical course. Prognosis guarded. Time with Patient: Greater than 30
[2020-11-04] MEDS: ALBUTEROL HFA INHALER INHALATION SCH ×4 (02:26→21:22)
[2020-11-04 06:44] LABS: Basophils % (A) 1 %; Eosinophils # (A) 0.2 k/uL (0-0.7); Eosinophils % (A) 4 %; HCT 36.1 % (39.0-53.0); HGB 11.6 gm/dL (13.0-17.5); Lymphocytes # (A) 1.1 k/uL (1.0-4.8); Lymphocytes % (A) 18 %; MCH 28.5 pg (25.0-35.0); MCHC 32.2 g/dL (31.0-37.0); MCV 88.4 fL (80.0-100.0); Mean Platelet Volume 6.9; Monocytes # (A) 0.3 k/uL (0-1.0); Monocytes % (A) 6 %; Neutrophils % (A) 69 %; Platelet Count 226 k/uL (150-450); RBC 4.09 m/uL (4.30-5.90); RDW 13.6 % (11.5-15.5); WBC 5.7 k/uL (3.8-10.6)
[2020-11-04 06:48] LABS: Glucose,Whole Blood 84 mg/dL (75-99)
[2020-11-04] MEDS: INSULIN ASPART (NovoLOG) 100 UNIT/ML VIAL SQ SCH ×4 (06:58→22:05)
[2020-11-04 08:18] LABS: Carbon Dioxide >40.0 mmol/L (21.6-31.8)
--- NOTE | 2020-11-04 08:26 | XR ---
EXAMINATION TYPE: XR chest 1V DATE OF EXAM: 11/04/2020 COMPARISON: 11/01/2020 HISTORY: 60-year-old male CHF TECHNIQUE: Single frontal view of the chest is obtained. FINDINGS: Limited portable exam. Right heart margin remains obscured by adjacent pleural parenchymal opacity. L eft lung and pleural space are relatively clear. Right upper lung relatively clear as well. IMPRESSION: Continued moderate right pleural effusion with adjacent atelectasis and/or consolidation. This extend s up to the mid lung level and obscures the right heart margin.
[2020-11-04] MEDS: POTASSIUM CHLORIDE ER 20 MEQ TAB.ER PO SCH ×3 (08:57→21:59)
[2020-11-04] MEDS: GABAPENTIN 300 MG CAP PO SCH ×2 (08:57→21:59)
[2020-11-04] MEDS: DULoxetine HCL 60 MG CAPSULE.DR PO SCH (08:57)
[2020-11-04] MEDS: LIDOCAINE 5% PATCH TOPICAL SCH (08:58)
[2020-11-04] MEDS: PANTOPRAZOLE 40 MG TABLET PO SCH (08:58)
[2020-11-04] MEDS: DILTIAZEM ORAL 30 MG TAB PO SCH ×3 (08:58→21:59)
[2020-11-04] MEDS: RIVAROXABAN 20 MG TAB PO SCH (08:58)
[2020-11-04 09:22] LABS: BUN/Creat Ratio 22.22 Ratio (12.00-20.00); Calcium 9.3 mg/dL (8.7-10.3); Chloride 92 mmol/L (96-109); Glucose 90 mg/dL (70-110); Non-African American GFR(CKD) 93.2 (60.0-200.0); Potassium 4.2 mmol/L (3.5-5.5); Sodium 140 mmol/L (135-145)
[2020-11-04 11:33] LABS: Glucose,Whole Blood 79 mg/dL (75-99)
--- NOTE | 2020-11-04 11:39 | P.PN ---
Subjective Progress Note Date: 11/04/20 On 11/04/2020 and hospitalization for a follow-up. The patient was hospitalized on 10/29/2020, and the patient had a component of an acute on top of chronic hypercapnic respiratory failure. The findings of his underlying pneumonia. The patient is currently on 2 L about 2 by nasal cannula. There was a right upper lobe pneumonia. The patient was treated. He is utilizing the Trilogy ventilator overnight. He is still fairly of any fevers or chills. He is on Lasix 40 mg IV every 12 hours. He is on long-term anticoagulation with Xarelto. Rest of the medications are unchanged. He does have a chronic right-sided pleural effusion. I have drained this in the past. Ultrasound of the chest showed a 4.2 cm pocket in the right lung. Chest x-ray still showing a right lower lobe pleural effusion and some infiltration. Repeat chest x-ray showed moderate right-sided pleural effusion with atelectasis. He is using incentive spirometer and pulling approximately 900. Objective - Vital Signs Vital signs: Vital Signs Temp 98.6 F 11/04/20 10:00 Pulse 72 11/04/20 10:00 Resp 18 11/04/20 10:00 BP 104/72 11/04/20 10:00 Pulse Ox 96 11/04/20 10:00 Intake & Output 11/03/20 11/04/20 11/04/20 18:59 06:59 18:59 Output Total 2400 Balance -2400 Output: Urine 2400 Other: Voiding Method Urinal Urinal # Bowel Movements 1 - Exam GENERAL EXAM: Alert, very pleasant, 60-year-old morbidly obese white male, on 2 L of oxygen with a pulse ox between 92-96%, resting on the gurney in the emergency department oriented 3, comfortable in no apparent distress. HEAD: Normocephalic/atraumatic. EYES: Normal reaction of pupils, equal size. Conjunctiva pink, sclera white. NOSE: Clear with pink turbinates. THROAT: No erythema or exudates. NECK: No masses, no JVD, no thyroid enlargement, no adenopathy. CHEST: No chest wall deformity. Symmetrical expansion. LUNGS: Equal air entry with no crackles, wheeze, rhonchi or dullness. CVS: Regular rate and rhythm, normal S1 and S2, no gallops, no murmurs, no rubs ABDOMEN: Soft, nontender. No hepatosplenomegaly, normal bowel sounds, no guarding or rigidity. EXTREMITIES: No clubbing, significant lower extremity edema, 2+ in bilateral lower extremities, no cyanosis, 2+ pulses and upper and lower extremities. MUSCULOSKELETAL: Muscle strength and tone normal. SPINE: No scoliosis or deformity SKIN: No rashes CENTRAL NERVOUS SYSTEM: Alert and oriented -3. No focal deficits, tone is normal in all 4 extremities. PSYCHIATRIC: Alert and oriented -3. Appropriate affect. Intact judgment and insight. - Labs CBC & Chem 7: 11/04/20 05:58 11/04/20 05:58 Labs: Abnormal Lab Results - Last 24 Hours (Table) 11/01/20 11/03/20 11/03/20 Range/Units 05:43 06:27 16:38 RBC (4.30-5.90) m/uL Hgb (13.0-17.5) gm/dL Hct (39.0-53.0) % Chloride 92 L (96-109) mmol/L Carbon Dioxide >40.0 H* >40.0 H* (21.6-31.8) mmol/L BUN/Creatinine Ratio (12.00-20.00) Ratio POC Glucose (mg/dL) 59 L (75-99) mg/dL 11/03/20 11/04/20 11/04/20 Range/Units 17:01 05:58 05:58 RBC 4.09 L (4.30-5.90) m/uL Hgb 11.6 L (13.0-17.5) gm/dL Hct 36.1 L (39.0-53.0) % Chloride 92 L (96-109) mmol/L Carbon Dioxide >40.0 H* (21.6-31.8) mmol/L BUN/Creatinine Ratio 22.22 H (12.00-20.00) Ratio POC Glucose (mg/dL) 118 H (75-99) mg/dL Microbiology - Last 24 Hours (Table) 10/29/20 08:47 Blood Culture - Preliminary Blood No Growth after 120 hours Assessment and Plan Plan: #1. Acute on chronic hypoxic respiratory failure related to possibility of sepsis, urinalysis showed no clear evidence of infection, there is a possibility of right lung pneumonia, and the patient has chronic volume loss and chronic right-sided pleural effusion that has been drained in the past and this was attributed to be related to CHF. Currently is on 2 L of oxygen by nasal cannula and utilizing the Trilogy ventilator overnight. #2. Possible right lung pneumonia, COVID 19 has been ruled out #3. Rule out possibility of acute CHF, cor pulmonale #4. Lactic acidosis related to sepsis, patient is receiving IV hydration #5. Chronic hypercapnic respiratory failure related to obesity hypoventilation syndrome, and has a trilogy ventilator at home, on AVAPS mode with TTV 550, Max PSV 25, Min PSV 5, Max EPAP 10, Min EPAP 5. #6. History of VT and pulmonary embolism on Xarelto #7. History of paroxysmal atrial fibrillation on Xarelto, currently in sinus mechanism #8. Gait dysfunction, patient is chronically bedbound #9. Chronic right-sided pleural effusion, previous history of thoracentesis with negative cytology and cultures #10. Chronic pain syndrome #11. Diabetes mellitus type 2, with diabetic neuropathy #12. Degenerative disc disease #13. Previous history of chronic kidney disease stage III #14. Morbid obesity with previous history of gastric sleeve surgery in 2013 #15. History of COPD, former smoker #16. Anxiety and depression, panic disorder Plan: The patient continues to have significant amount of fluid overload. The patient has been negative four-vessel 4.6 L over the past 24 hours. Continue Lasix 40 mg every 12 hours and will continue with gentle diuresis. Monitor serum bicarbonate consider Diamox over the next 24-48 hours. His condition is stable for now. He is utilizing the AVAPSmachine overnight. My review of the fluid from previous thoracentesis has yielded either transudate or exudate with a negative cytology.he will benefit from more diuresis.
[2020-11-04 11:46] LABS: Carbon Dioxide >40.0 mmol/L (21.6-31.8)
[2020-11-04 11:54] LABS: Carbon Dioxide >40.0 mmol/L (21.6-31.8)
--- NOTE | 2020-11-04 14:42 | P.PN ---
Subjective Progress Note Date: 11/04/20 CHIEF COMPLAINT: Shortness of breath HISTORY OF PRESENT ILLNESS: Patient is being followed for GERD and concerns of aspiration. Patient denies any abdominal pain. Denies any nausea or vomiting. Tolerating regular diet. He status post EGD during this admission which did reveal antral gastritis. Afebrile. WBC 5.7 hemoglobin 11.6 PHYSICAL EXAM: VITAL SIGNS: Reviewed. GENERAL: Well-developed in no acute distress. HEENT: No sclera icterus. Extraocular movements grossly intact. Moist buccal mucosa. Head is atraumatic, normocephalic. ABDOMEN: Soft. Obese. Nondistended. Nontender. NEUROLOGIC: Alert and oriented. Cranial nerves II through XII grossly intact. ASSESSMENT: 1. GERD with concerns of aspiration . Status post EGD revealing antral gastritis 2. Right lower lobe pneumonia 3. History of gastric sleeve 4. Morbid obesity 5. History of atrial fibrillation anticoagulated with Xarelto 6. History of DVT and PE anticoagulated with Xarelto 7. Right pleural effusion followed by pulmonary service PLAN: -Continue supportive care Physician [employer] Work [employer] note has been reviewed by physician. Signing provider agrees with the documented findings, assessment, and plan of care. Objective - Vital Signs Vital signs: Vital Signs Temp 98.6 F 11/04/20 10:00 Pulse 72 11/04/20 10:00 Resp 18 11/04/20 10:00 BP 104/72 11/04/20 10:00 Pulse Ox 96 11/04/20 10:00 Intake & Output 11/03/20 11/04/20 11/04/20 18:59 06:59 18:59 Output Total 2400 Balance -2400 Output: Urine 2400 Other: Voiding Method Urinal Urinal # Bowel Movements 1 - Labs CBC & Chem 7: 11/04/20 05:58 11/04/20 05:58 Labs: Abnormal Lab Results - Last 24 Hours (Table) 11/01/20 11/03/20 11/03/20 Range/Units 05:43 06:27 11:28 RBC (4.30-5.90) m/uL Hgb (13.0-17.5) gm/dL Hct (39.0-53.0) % Chloride 92 L (96-109) mmol/L Carbon Dioxide >40.0 H* >40.0 H* (21.6-31.8) mmol/L BUN/Creatinine Ratio (12.00-20.00) Ratio POC Glucose (mg/dL) 110 H (75-99) mg/dL 11/03/20 11/03/20 11/04/20 Range/Units 16:38 17:01 05:58 RBC 4.09 L (4.30-5.90) m/uL Hgb 11.6 L (13.0-17.5) gm/dL Hct 36.1 L (39.0-53.0) % Chloride (96-109) mmol/L Carbon Dioxide (21.6-31.8) mmol/L BUN/Creatinine Ratio (.00-.00) Ratio POC Glucose (mg/dL) 59 L 118 H (75-99) mg/dL 11/04/20 Range/Units 05:58 RBC (4.30-5.90) m/uL Hgb (13.0-17.5) gm/dL Hct (39.0-53.0) % Chloride 92 L (96-109) mmol/L Carbon Dioxide >40.0 H* (21.6-31.8) mmol/L BUN/Creatinine Ratio 22.22 H (12.00-20.00) Ratio POC Glucose (mg/dL) (75-99) mg/dL Microbiology - Last 24 Hours (Table) 10/29/20 08:47 Blood Culture - Preliminary Blood No Growth after 120 hours
[2020-11-04 16:31] LABS: Glucose,Whole Blood 116 mg/dL (75-99)
[2020-11-04] MEDS: LACTATED RINGERS 1,000 ML IV SCH (17:27)
--- NOTE | 2020-11-04 18:00 | P.PN ---
Subjective Progress Note Date: 11/03/20 Patient is a 60-year-old male was admitted to the hospital due to significant pneumonia. Chest x-ray showed significant pleural effusion on the right side. Ultrasound only showed 4.2 cm pleural effusion on the right side. COVID-19 test was negative. Influenza is also negative. Patient is being followed by pulmonary. 11/02/2020 Patient is currently resting in the bed comfortably. Patient had EGD done by Dr. Willoughby due to possible persistent aspiration but no significant evidence of acid reflux was noted. Currently on oxygen at 2 L via nasal cannula. Laboratory data reviewed. 11/03/2020 Patient is currently resting in bed comfortable. No complaints of chest pain or worsening shortness of breath. No headache or dizziness or lightheadedness. Laboratory showed WBC 4.3, hemoglobin 12.0 and platelets 224 Sodium 1 4144, potassium 3.8 and chloride 92 and bicarb is greater than 40 BUN 18 and creatinine 0.9 We will reduce Lasix dose to 40 mg every 12 and will change to by mouth tomorrow. Anticipate discharge the next 24 to 48 hours. 11/04/2020 Patient is clinically doing well still has significant swelling patient is getting Lasix at this time. Patient appears to have obesity hypoventilation syndrome. Constitutional: Denied any fatigue denied any fever. Cardio vascular: denied any chest pain, palpitations Gastrointestinal denied any nausea vomiting Pulmonary: Denied any shortness of breath cough Neurologic denied any new focal deficits All inpatient medications were reviewed and appropriate changes in these medications as dictated in the interval history and assessment and plan. Objective - Vital Signs Vital signs: Vital Signs Temp 98.1 F 11/04/20 14:00 Pulse 90 11/04/20 14:00 Resp 17 11/04/20 14:00 BP 143/70 11/04/20 14:00 Pulse Ox 91 L 11/04/20 14:00 Intake & Output 11/03/20 11/04/20 11/04/20 18:59 06:59 18:59 Output Total 2400 Balance -2400 Output: Urine 2400 Other: Voiding Method Urinal Urinal # Bowel Movements 1 - Exam REVIEW OF SYSTEMS: CONSTITUTIONAL: No fever, no malaise, no fatigue. HEENT: No recent visual problems or hearing problems. Denied any sore throat. CARDIOVASCULAR: No chest pain, orthopnea, PND, no palpitations, no syncope. PULMONARY: No shortness of breath, no cough, no hemoptysis. GASTROINTESTINAL: No diarrhea, no nausea, no vomiting, no abdominal pain. NEUROLOGICAL: No headaches, no weakness, no numbness. HEMATOLOGICAL: Denies any bleeding or petechiae. GENITOURINARY: Denies any burning micturition, frequency, or urgency. MUSCULOSKELETAL/RHEUMATOLOGICAL: Denies any joint pain, swelling, or any muscle pain. ENDOCRINE: Denies any polyuria or polydipsia. The rest of the 14-point review of systems is negative. - Labs CBC & Chem 7: 11/04/20 05:58 11/04/20 05:58 Labs: Abnormal Lab Results - Last 24 Hours (Table) 11/01/20 11/03/20 11/04/20 Range/Units 05:43 06:27 05:58 RBC 4.09 L (4.30-5.90) m/uL Hgb 11.6 L (13.0-17.5) gm/dL Hct 36.1 L (39.0-53.0) % Chloride (96-109) mmol/L Carbon Dioxide >40.0 H* >40.0 H* (21.6-31.8) mmol/L BUN/Creatinine Ratio (12.00-20.00) Ratio POC Glucose (mg/dL) (75-99) mg/dL 11/04/20 11/04/20 Range/Units 05:58 16:29 RBC (4.30-5.90) m/uL Hgb (13.0-17.5) gm/dL Hct (39.0-53.0) % Chloride 92 L (96-109) mmol/L Carbon Dioxide >40.0 H* (21.6-31.8) mmol/L BUN/Creatinine Ratio 22.22 H (12.00-20.00) Ratio POC Glucose (mg/dL) 116 H (75-99) mg/dL Microbiology - Last 24 Hours (Table) 10/29/20 08:47 Blood Culture - Final Blood No Growth after 144 hours Assessment and Plan Plan: Acute right lower lobe pneumonia possibly gram-negative with possible aspiration with sepsis. Acute hypoxic respiratory. Present on admission. Right pleural effusion with history of right pleural effusion previously with multiple thoracentesis secondary CHF. Patient is presently receiving the Lasix possibility of discharge tomorrow. Patient still has significant pedal edema. CHF with exacerbation acute on chronic CHF diastolic function. Chronic atrial fibrillation Asthma/COPD History of CVA/TIA Diabetes type 2 History of DVT GERD Hyperlipidemia Hypertension History of PE Obstructive sleep apnea with possible restrictive lung disease and obesity hy poventilation syndrome History of pseudoseizures at [facility] Patient is bedbound History of bariatric surgery and gastric sleeve surgery Anxiety/depression/bipolar disorder and panic disorder and schizoaffective disorder Morbid obesity BMI 53.5 Gait dysfunction Patient is full code
[2020-11-04 20:59] LABS: Glucose,Whole Blood 95 mg/dL (75-99)
[2020-11-04] MEDS: OLANZapine 10 MG TAB PO SCH (21:59)
[2020-11-04] MEDS: ATORVASTATIN 10 MG TAB PO SCH (21:59)
[2020-11-05] MEDS: ALBUTEROL HFA INHALER INHALATION SCH ×2 (01:36→09:07)
[2020-11-05] MEDS: ACETAMINOPHEN TAB 500 MG TAB PO PRN (05:34)
[2020-11-05 06:47] LABS: Glucose,Whole Blood 90 mg/dL (75-99)
[2020-11-05] MEDS: INSULIN ASPART (NovoLOG) 100 UNIT/ML VIAL SQ SCH ×2 (08:00→12:57)
[2020-11-05] MEDS: PANTOPRAZOLE 40 MG TABLET PO SCH (08:00)
[2020-11-05] MEDS: GABAPENTIN 300 MG CAP PO SCH (08:01)
[2020-11-05] MEDS: FUROSEMIDE 10 MG/ML 4 ML VIAL IV SCH (08:01)
[2020-11-05] MEDS: DULoxetine HCL 60 MG CAPSULE.DR PO SCH (08:01)
[2020-11-05] MEDS: DILTIAZEM ORAL 30 MG TAB PO SCH (08:01)
[2020-11-05] MEDS: RIVAROXABAN 20 MG TAB PO SCH (08:02)
[2020-11-05] MEDS: POTASSIUM CHLORIDE ER 20 MEQ TAB.ER PO SCH (08:02)
[2020-11-05] MEDS: LIDOCAINE 5% PATCH TOPICAL SCH (08:02)
[2020-11-05 09:45] LABS: BUN/Creat Ratio 24.44 Ratio (12.00-20.00); Calcium 9.1 mg/dL (8.7-10.3); Chloride 92 mmol/L (96-109); Glucose 103 mg/dL (70-110); Non-African American GFR(CKD) 93.2 (60.0-200.0); Potassium 4.4 mmol/L (3.5-5.5); Sodium 141 mmol/L (135-145)
[2020-11-05 10:17] LABS: Carbon Dioxide >40.0 mmol/L (21.6-31.8)
--- NOTE | 2020-11-05 10:56 | P.PN ---
Subjective Progress Note Date: 11/05/20 On 11/04/2020 and hospitalization for a follow-up. The patient was hospitalized on 10/29/2020, and the patient had a component of an acute on top of chronic hypercapnic respiratory failure. The findings of his underlying pneumonia. The patient is currently on 2 L about 2 by nasal cannula. There was a right upper lobe pneumonia. The patient was treated. He is utilizing the Trilogy ventilator overnight. He is still fairly of any fevers or chills. He is on Lasix 40 mg IV every 12 hours. He is on long-term anticoagulation with Xarelto. Rest of the medications are unchanged. He does have a chronic right-sided pleural effusion. I have drained this in the past. Ultrasound of the chest showed a 4.2 cm pocket in the right lung. Chest x-ray still showing a right lower lobe pleural effusion and some infiltration. Repeat chest x-ray showed moderate right-sided pleural effusion with atelectasis. He is using incentive spirometer and pulling approximately 900. The patient is being seen in follow-up on 11/05/2020. The patient remains on IV Lasix. The patient hasn't produced a negative fluid balance of more than that and a 3.5 liters over the past 24 hours. hhe is currently on 2 L of oxygen by nasal cannula. He has no specific complaints. Is resting comfortably in bed. Utilizing the Avonex machine overnight.The patient's serum bicarb is above 40 he does have a component of metabolic alkalosis. Hemodynamically stable. Objective - Vital Signs Vital signs: Vital Signs Temp 98.8 F 11/05/20 10:00 Pulse 71 11/05/20 10:00 Resp 17 11/05/20 10:00 BP 131/67 11/05/20 10:00 Pulse Ox 98 11/05/20 10:00 Intake & Output 11/04/20 11/05/20 11/05/20 18:59 06:59 18:59 Intake Total 222 Output Total 1900 Balance -1678 Weight 201.9 kg Intake: Oral 222 Output: Urine 1900 Other: Voiding Method Urinal # Bowel Movements 1 - Exam GENERAL EXAM: Alert, very pleasant, 60-year-old morbidly obese white male, on 2 L of oxygen with a pulse ox between 92-96%, resting on the gurney in the emergency department oriented 3, comfortable in no apparent distress. HEAD: Normocephalic/atraumatic. EYES: Normal reaction of pupils, equal size. Conjunctiva pink, sclera white. NOSE: Clear with pink turbinates. THROAT: No erythema or exudates. NECK: No masses, no JVD, no thyroid enlargement, no adenopathy. CHEST: No chest wall deformity. Symmetrical expansion. LUNGS: Equal air entry with no crackles, wheeze, rhonchi or dullness. CVS: Regular rate and rhythm, normal S1 and S2, no gallops, no murmurs, no rubs ABDOMEN: Soft, nontender. No hepatosplenomegaly, normal bowel sounds, no guar ding or rigidity. EXTREMITIES: No clubbing, significant lower extremity edema, 2+ in bilateral lower extremities, no cyanosis, 2+ pulses and upper and lower extremities. MUSCULOSKELETAL: Muscle strength and tone normal. SPINE: No scoliosis or deformity SKIN: No rashes CENTRAL NERVOUS SYSTEM: Alert and oriented -3. No focal deficits, tone is normal in all 4 extremities. PSYCHIATRIC: Alert and oriented -3. Appropriate affect. Intact judgment and insight. - Labs CBC & Chem 7: 11/04/20 05:58 11/05/20 05:57 Labs: Abnormal Lab Results - Last 24 Hours (Table) 11/03/20 11/04/20 11/04/20 Range/Units 06:27 05:58 16:29 Chloride (96-109) mmol/L Carbon Dioxide >40.0 H* >40.0 H* (21.6-31.8) mmol/L BUN/Creatinine Ratio (12.00-20.00) Ratio POC Glucose (mg/dL) 116 H (75-99) mg/dL 11/05/20 Range/Units 05:57 Chloride 92 L (96-109) mmol/L Carbon Dioxide >40.0 H* (21.6-31.8) mmol/L BUN/Creatinine Ratio 24.44 H (12.00-20.00) Ratio POC Glucose (mg/dL) (75-99) mg/dL Microbiology - Last 24 Hours (Table) 10/29/20 08:47 Blood Culture - Final Blood No Growth after 144 hours Assessment and Plan Plan: #1. Acute on chronic hypoxic respiratory failure related to possibility of sepsis, urinalysis showed no clear evidence of infection, there is a possibility of right lung pneumonia, and the patient has chronic volume loss and chronic right-sided pleural effusion that has been drained in the past and this was attributed to be related to CHF. Currently is on 2 L of oxygen by nasal cannula and utilizing the Trilogy ventilator overnight.the patient was in fluid overload and the patient is benefiting from diuretics. #2. Possible right lung pneumonia, COVID 19 has been ruled out #3. Rule out possibility of acute CHF, cor pulmonale #4. Lactic acidosis related to sepsis, patient is receiving IV hydration #5. Chronic hypercapnic respiratory failure related to obesity hypoventilation syndrome, and has a trilogy ventilator at home, on AVAPS mode with TTV 550, Max PSV 25, Min PSV 5, Max EPAP 10, Min EPAP 5. #6. History of VT and pulmonary embolism on Xarelto #7. History of paroxysmal atrial fibrillation on Xarelto, currently in sinus mechanism #8. Gait dysfunction, patient is chronically bedbound #9. Chronic right-sided pleural effusion, previous history of thoracentesis with negative cytology and cultures #10. Chronic pain syndrome #11. Diabetes mellitus type 2, with diabetic neuropathy #12. Degenerative disc disease #13. Previous history of chronic kidney disease stage III #14. Morbid obesity with previous history of gastric sleeve surgery in 2013 #15. History of COPD, former smoker #16. Anxiety and depression, panic disorder Plan: The patient continues to have significant amount of fluid overload. The patient has been negative four-vessel 4.6 L over the past 24 hours. subsequently, he produced another 3.5 L of negative fluid balance over the past 24 hours. He is currently on IV Lasix. I will continue the IV Lasix and the patient gets discharged home. His condition is stable. His fluid balance is being optimized. His condition is stable for now. He is utilizing the AVAPSmachine overnight. My review of the fluid from previous thoracentesis has yielded either transudate or exudate with a negative cytology.
--- NOTE | 2020-11-05 11:16 | P.PN ---
Subjective Progress Note Date: 11/05/20 CHIEF COMPLAINT: Shortness of breath HISTORY OF PRESENT ILLNESS: Patient is being followed for GERD and concerns of aspiration. Patient denies any abdominal pain. Denies any nausea or vomiting. Tolerating regular diet. He status post EGD during this admission which did reveal antral gastritis. Afebrile. Patient being followed by pulmonary service. Patient on IV Lasix for fluid overload. PHYSICAL EXAM: VITAL SIGNS: Reviewed. GENERAL: Well-developed in no acute distress. HEENT: No sclera icterus. Extraocular movements grossly intact. Moist buccal mucosa. Head is atraumatic, normocephalic. ABDOMEN: Soft. Obese. Nondistended. Nontender. NEUROLOGIC: Alert and oriented. Cranial nerves II through XII grossly intact. ASSESSMENT: 1. GERD with concerns of aspiration . Status post EGD revealing antral gastritis 2. Right lower lobe pneumonia 3. History of gastric sleeve 4. Morbid obesity 5. History of atrial fibrillation anticoagulated with Xarelto 6. History of DVT and PE anticoagulated with Xarelto 7. Right pleural effusion followed by pulmonary service PLAN: -Continue supportive care -Recommend esophagram when patient is stable Physician [employer] note has been reviewed by physician. Signing provider agrees with the documented findings, assessment, and plan of care. Objective - Vital Signs Vital signs: Vital Signs Temp 98.8 F 11/05/20 10:00 Pulse 71 11/05/20 10:00 Resp 17 11/05/20 10:00 BP 131/67 11/05/20 10:00 Pulse Ox 98 11/05/20 10:00 Intake & Output 11/04/20 11/05/20 11/05/20 18:59 06:59 18:59 Intake Total 222 Output Total 1900 Balance -1678 Weight 201.9 kg Intake: Oral 222 Output: Urine 1900 Other: Voiding Method Urinal # Bowel Movements 1 - Labs CBC & Chem 7: 11/04/20 05:58 11/05/20 05:57 Labs: Abnormal Lab Results - Last 24 Hours (Table) 11/03/20 11/04/20 11/04/20 Range/Units 06:27 05:58 16:29 Chloride (96-109) mmol/L Carbon Dioxide >40.0 H* >40.0 H* (21.6-31.8) mmol/L BUN/Creatinine Ratio (12.00-20.00) Ratio POC Glucose (mg/dL) 116 H (75-99) mg/dL 11/05/20 Range/Units 05:57 Chloride 92 L (96-109) mmol/L Carbon Dioxide >40.0 H* (21.6-31.8) mmol/L BUN/Creatinine Ratio 24.44 H (12.00-20.00) Ratio POC Glucose (mg/dL) (75-99) mg/dL Microbiology - Last 24 Hours (Table) 10/29/20 08:47 Blood Culture - Final Blood No Growth after 144 hours
[2020-11-05 11:56] LABS: Glucose,Whole Blood 98 mg/dL (75-99)
[2020-11-05 12:48] VITALS: BMI 52.7
--- NOTE | 2020-11-05 13:41 | P.DS ---
Providers Date of admission: 10/29/20 10:08 Attending physician: Marquez Zaragoza MD Consults: 10/29/20 10:08 Consult Physician Routine Consulting Provider: Ralph Rondon Consult Reason/Comments: Pneumonia, sepsis Do you want consulting provider notified?: Yes 10/30/20 13:01 Consult Physician Urgent Consulting Provider: Robb Vigil Consult Reason/Comments: GERD Do you want consulting provider notified?: Yes Primary care physician: Physician Nonstaff Hospital Course: Patient is a 60-year-old male was admitted to the hospital due to significant pneumonia. Chest x-ray showed significant pleural effusion on the right side. Ultrasound only showed 4.2 cm pleural effusion on the right side. COVID-19 test was negative. Influenza is also negative. Patient is being followed by pulmonary. 11/02/2020 Patient is currently resting in the bed comfortably. Patient had EGD done by Dr. Willoughby due to possible persistent aspiration but no significant evidence of acid reflux was noted. Currently on oxygen at 2 L via nasal cannula. Laboratory data reviewed. 11/03/2020 Patient is currently resting in bed comfortable. No complaints of chest pain or worsening shortness of breath. No headache or dizziness or lightheadedness. Laboratory showed WBC 4.3, hemoglobin 12.0 and platelets 224 Sodium 1 4144, potassium 3.8 and chloride 92 and bicarb is greater than 40 BUN 18 and creatinine 0.9 We will reduce Lasix dose to 40 mg every 12 and will change to by mouth tomorrow. Anticipate discharge the next 24 to 48 hours. 11/04/2020 Patient is clinically doing well still has significant swelling patient is getting Lasix at this time. Patient appears to have obesity hypoventilation syndrome. Patient is presently euvolemic. Patient still has highly elevated serum bicarbonate is secondary to chronic [employer] alkalosis patient will be given a does of Diamox and patient will continue on home dose of Lasix. Patient will be discharged today patient didn't does have his AVAPs machine at home which she will continue. PHYSICAL EXAMINATION: GENERAL: The patient is alert and oriented x3, not in any acute distress. Obese HEENT: Pupils are round and equally reacting to light. EOMI. No scleral icterus. No conjunctival pallor. Normocephalic, atraumatic. No pharyngeal erythema. No thyromegaly. CARDIOVASCULAR: S1 and S2 present. No murmurs, rubs, or gallops. PULMONARY: Chest is clear to auscultation, no wheezing or crackles. ABDOMEN: Soft, nontender, nondistended, normoactive bowel sounds. No palpable organomegaly. MUSCULOSKELETAL: No joint swelling or deformity. EXTREMITIES: No cyanosis, clubbing, or pedal edema. NEUROLOGICAL: Gross neurological examination did not reveal any focal deficits. SKIN: No rashes. Assessment and Plan Plan: Acute hypoxic respiratory failure most probably secondary to CHF no clear evidence of infection or pneumonia at this time. Patient is not on any antibiotics will not require any antibiotics upon discharge patient has significant clinical improvement with diuretics. Right pleural effusion with history of right pleural effusion previously with multiple thoracentesis secondary CHF. Pedal edema improved significantly CHF with exacerbation acute on chronic CHF diastolic function. Chronic atrial fibrillation Asthma/COPD History of CVA/TIA Diabetes type 2 History of DVT GERD Hyperlipidemia Hypertension History of PE Obstructive sleep apnea with possible restrictive lung disease and obesity hypoventilation syndrome: Chronic CO2 retention History of pseudoseizures at [facility] Patient is bedbound History of bariatric surgery and gastric sleeve surgery Anxiety/depression/bipolar disorder and panic disorder and schizoaffective disorder Morbid obesity BMI 53.5 Plan - Discharge Summary New Discharge Prescriptions: New acetaZOLAMIDE [Diamox] 250 mg PO DAILY #3 tablet Continue Rivaroxaban [Xarelto] 20 mg PO DAILY dilTIAZem HCL [Diltiazem HCl] 30 mg PO TID DULoxetine HCL [Cymbalta] 60 mg PO DAILY Atorvastatin [Lipitor] 10 mg PO HS Lidocaine 5% Patch [Lidoderm 5% Patch] 1 patch TOPICAL DAILY Furosemide [Lasix] 40 mg PO BID Buprenorphine HCl [Belbuca] 1 film SL BID Gabapentin 600 mg PO BID HYDROcodone/APAP 10-325MG [Telferner 10-325] 1 tab PO BID PRN PRN Reason: Pain Ipratropium-Albuterol Nebulize [Duoneb 0.5 mg-3 mg/3 ml Soln] 3 ml INHALATION RT-QID OLANZapine 20 mg PO HS Changed Potassium Chloride ER [K-Dur 20] 20 meq PO BID #0 Discontinued Tiotropium 18 Mcg/Puff [Spiriva] 1 puff INHALATION RT-DAILY Discharge Medication List Rivaroxaban [Xarelto] 20 mg PO DAILY 07/14/19 [History] DULoxetine HCL [Cymbalta] 60 mg PO DAILY 07/15/19 [History] dilTIAZem HCL [Diltiazem HCl] 30 mg PO TID 07/15/19 [History] Atorvastatin [Lipitor] 10 mg PO HS 08/03/19 [History] Lidocaine 5% Patch [Lidoderm 5% Patch] 1 patch TOPICAL DAILY 08/03/19 [History] Furosemide [Lasix] 40 mg PO BID 10/31/19 [History] Buprenorphine HCl [Belbuca] 1 film SL BID 10/29/20 [History] Gabapentin 600 mg PO BID 10/29/20 [History] HYDROcodone/APAP 10-325MG [Telferner 10-325] 1 tab PO BID PRN 10/29/20 [History] Ipratropium-Albuterol Nebulize [Duoneb 0.5 mg-3 mg/3 ml Soln] 3 ml INHALATION RT-QID 10/29/20 [History] OLANZapine 20 mg PO HS 10/29/20 [History] Potassium Chloride ER [K-Dur 20] 20 meq PO BID #0 11/05/20 [Rx] acetaZOLAMIDE [Diamox] 250 mg PO DAILY #3 tablet 11/05/20 [Rx] Follow up Appointment(s)/Referral(s): [facility], [NON-STAFF] - Nonstaff,Physician [Primary Care Provider] - 3 Days Ynes Hendrickson MD [STAFF PHYSICIAN] - 1 Week
[2020-11-05 14:15] VITALS: BP 141/69; PULSE 85; RESP 19; TEMP 98.4
--- NOTE | 2020-11-11 07:16 | CDI ---
Documentation Clarification Form Date: From: Fatuma Stewart Phone: Admit Date: 10/29/2020 10:08:00 AM Patient Name: Donavon Saha Visit Number: [id number] Discharge Date: 11/05/2020 03:48:00 PM ATTENTION: The Clinical Documentation Specialists (CDI) and [facility] Coding Staff appreciate your assistance in clarifying documentation. Please respond to the clarification below the line at the bottom and electronically sign. The CDI & [facility] Coding staff will review the response and follow-up if needed. Please note: Queries are made part of the Legal Health Record. If you have any questions, please contact the author of this message via ITS. Dr. Eldon Dickson, Your patient has a documented diagnosis of sepsis from pneumonia - which may lack sufficient clinical evidence/support. History/Risk Factors: A fib, asthma, CHF, COPD, CVC/TIA, DM T 2, HTN, HLD, GERD, DVT Clinical Indicators: On admission patient was diagnosed with acute right lower lobe pneumonia possibly gram-negative, possibly aspiration with sepsis and acute hypoxic respiratory failure. ED Note documented that patient met sepsis criteria. Dr Rondon's consult documented lactic acidosis related to sepsis. Lactic acid 3.8, Neutrophils 8.8, T-100.9, P-106, R-26, BP-108/54, O2 sat-89 Treatment: broad-spectrum IV antibiotics, bronchodilators Based on the clinical evidence and your professional judgment, do you feel sepsis is a valid diagnosis? Yes, sepsis from pneumonia is present/active during this admission as evidence by (additional clinical support): No, sepsis was ruled out. Other (please specify diagnosis) Unable to determine I clearly documented my opinion in my note. I cannot speak for other physicians documentation MTDD
--- NOTE | 2020-11-15 12:36 | CDI ---
Documentation Clarification Form Date: 11/15/2020 09:24:00 AM From: Fatuma Stewart Phone: Please call Sabrina More at from 8-5pm for questions Admit Date: 10/29/2020 10:08:00 AM Patient Name: Donavon Saha Visit Number: [id number] Discharge Date: 11/05/2020 03:48:00 PM ATTENTION: The Clinical Documentation Specialists (CDI) and [facility] Coding Staff appreciate your assistance in clarifying documentation. Please respond to the clarification below the line at the bottom and electronically sign. The CDI & [facility] Coding staff will review the response and follow-up if needed. Please note: Queries are made part of the Legal Health Record. If you have any questions, please contact the author of this message via ITS. Dr. Lakshmi Salazar, The diagnosis sepsis was documented in the ED Note, pulmonary & cardiology consults and subsequent PNs, but is not noted in the discharge summary. History/Risk Factors: Pneumonia, A fib, asthma, CHF, COPD, CVA/TIA, DM T 2, HTN, HLD, GERD, DVT Clinical Indicators: Lactic acid-3.8, neutrophils-8.8, T-100.9, P-106 & R-26 10/29 CXR: Chronic changes including persistent small to moderate-sized possible right pleural fluid collection. new multifocal areas of right upper to middling acute infiltrates. Treatment: IV Zithromaax, IV Rocephin, IV fluids Please clarify if the sepsis was: Present/active/treated and resolved this admission Sepsis ruled out Other, please specify Clinically unable to determine sepsis was: Present/active/treated and resolved this admission MTDD
== END 2020-11-05 15:48 | disposition home health service (06) | DRG 871 ==
LOC: EC 08:25 → 4SSUR 10:08
PROVIDERS: ADMIT Internal Medicine; ATTEND Internal Medicine
PROC: 0DB78ZX Excision of Stomach, Pylorus, Via Natural or Artificial Opening Endoscopic, Diagnostic (ICD-10-PCS; principal; 2020-11-01 12:35)
PROC: 5A09457 Assistance with Respiratory Ventilation, 24-96 Consecutive Hours, Continuous Positive Airway Pressure (ICD-10-PCS; 2020-11-02)
DX: A41.9 Sepsis, unspecified organism (principal); J15.6 Pneumonia due to other Gram-negative bacteria; J96.21 Acute and chronic respiratory failure with hypoxia; J96.22 Acute and chronic respiratory failure with hypercapnia; I50.33 Acute on chronic diastolic (congestive) heart failure; I13.0 Hypertensive heart and chronic kidney disease with heart failure and stage 1 through stage 4 chronic kidney disease, or unspecified chronic kidney disease; E87.4 Mixed disorder of acid-base balance; J44.0 Chronic obstructive pulmonary disease with (acute) lower respiratory infection; E66.2 Morbid (severe) obesity with alveolar hypoventilation; Z68.43 Body mass index [BMI] 50.0-59.9, adult; F31.30 Bipolar disorder, current episode depressed, mild or moderate severity, unspecified; E11.649 Type 2 diabetes mellitus with hypoglycemia without coma; I27.22 Pulmonary hypertension due to left heart disease; I27.81 Cor pulmonale (chronic); F25.9 Schizoaffective disorder, unspecified; F44.5 Conversion disorder with seizures or convulsions; N18.30 Chronic kidney disease, stage 3 unspecified; E11.22 Type 2 diabetes mellitus with diabetic chronic kidney disease; E11.42 Type 2 diabetes mellitus with diabetic polyneuropathy; R65.20 Severe sepsis without septic shock; I48.0 Paroxysmal atrial fibrillation; K21.9 Gastro-esophageal reflux disease without esophagitis; Z20.828 Contact with and (suspected) exposure to other viral communicable diseases; M19.90 Unspecified osteoarthritis, unspecified site; M41.9 Scoliosis, unspecified; F41.0 Panic disorder [episodic paroxysmal anxiety]; E78.5 Hyperlipidemia, unspecified; M51.36 Other intervertebral disc degeneration, lumbar region; I45.10 Unspecified right bundle-branch block; I25.10 Atherosclerotic heart disease of native coronary artery without angina pectoris; G89.4 Chronic pain syndrome; R26.9 Unspecified abnormalities of gait and mobility; I08.3 Combined rheumatic disorders of mitral, aortic and tricuspid valves; K29.70 Gastritis, unspecified, without bleeding; E87.6 Hypokalemia; Z71.3 Dietary counseling and surveillance; Z79.01 Long term (current) use of anticoagulants; Z79.899 Other long term (current) drug therapy; Z86.14 Personal history of Methicillin resistant Staphylococcus aureus infection; Z98.890 Other specified postprocedural states; Z85.828 Personal history of other malignant neoplasm of skin; Z86.73 Personal history of transient ischemic attack (TIA), and cerebral infarction without residual deficits; Z86.718 Personal history of other venous thrombosis and embolism; Z86.711 Personal history of pulmonary embolism; Z87.01 Personal history of pneumonia (recurrent); Z87.19 Personal history of other diseases of the digestive system; Z98.84 Bariatric surgery status; Z74.01 Bed confinement status; Z90.49 Acquired absence of other specified parts of digestive tract; Z96.641 Presence of right artificial hip joint; Z87.891 Personal history of nicotine dependence; Z88.5 Allergy status to narcotic agent; Z88.2 Allergy status to sulfonamides; Z88.8 Allergy status to other drugs, medicaments and biological substances; Z80.1 Family history of malignant neoplasm of trachea, bronchus and lung; Z82.49 Family history of ischemic heart disease and other diseases of the circulatory system
CPT/HCPCS: 36415; 43239; 71045; 71260; 74177; 74230; 76604; 80048; 80053; 81001; 82728; 83036; 83605; 83615; 83735; 83880; 84145; 84484; 85025; 85610; 85730; 86140; 87040; 87070; 87205; 87502; 87635; 88305; 93005; 93306; 94640; 96361; 96365; 96368; 99291

== ENCOUNTER 2020-11-27 16:49 | Emergency (ER) | payer MEDICARE, BC, OTHER ==
[2020-11-27 16:56] VITALS: TEMP 98.9
[2020-11-27 17:55] LABS: Basophils % (A) 1 %; Eosinophils # (A) 0.2 k/uL (0-0.7); Eosinophils % (A) 4 %; HCT 34.6 % (39.0-53.0); HGB 11.3 gm/dL (13.0-17.5); Lymphocytes # (A) 0.7 k/uL (1.0-4.8); Lymphocytes % (A) 14 %; MCH 28.6 pg (25.0-35.0); MCHC 32.6 g/dL (31.0-37.0); MCV 87.7 fL (80.0-100.0); Mean Platelet Volume 7.4; Monocytes # (A) 0.4 k/uL (0-1.0); Monocytes % (A) 9 %; Neutrophils # (A) 3.3 k/uL (1.3-7.7); Neutrophils % (A) 71 %; Platelet Count 199 k/uL (150-450); RBC 3.95 m/uL (4.30-5.90); RDW 13.9 % (11.5-15.5); WBC 4.7 k/uL (3.8-10.6)
[2020-11-27 18:03] LABS: Appearance,Urine Clear (Clear); Bilirubin,Urine Negative (Negative); Blood,Urine Negative (Negative); Color,Urine Light Yellow; Glucose,Urine (UA) Negative (Negative); Ketones,Urine Negative (Negative); Leukocyte Esterase,Urine Negative (Negative); Nitrite,Urine Negative (Negative); Protein,Urine Negative (Negative); Specific Gravity,Urine 1.006 (1.001-1.035); Urobilinogen,Urine <2.0 mg/dL (<2.0)
[2020-11-27 18:14] LABS: ALT 31 U/L (4-49); AST 55 U/L (17-59); African American GFR (CKD) >90 (>60 ml/min/1.73 sqM); Albumin 3.2 g/dL (3.5-5.0); Alkaline Phosphatase 121 U/L (38-126); Amylase 36 U/L (30-110); Blood Urea Nitrogen 23 mg/dL (9-20); Calcium 8.7 mg/dL (8.4-10.2); Chloride 87 mmol/L (98-107); Glucose 107 mg/dL (74-99); Lipase 71 U/L (23-300); Non-African American GFR(CKD) >90 (>60 ml/min/1.73 sqM); Potassium 3.8 mmol/L (3.5-5.1); Sodium 136 mmol/L (137-145); Total Bilirubin 0.5 mg/dL (0.2-1.3); Total Protein 5.9 g/dL (6.3-8.2)
[2020-11-27 18:20] LABS: Anion Gap 2 mmol/L
[2020-11-27 18:29] LABS: Carbon Dioxide 47 mmol/L (22-30)
--- NOTE | 2020-11-27 18:38 | ED ---
General Adult HPI - General Chief complaint: Abdominal Pain Stated complaint: Abd Pain Time Seen by Provider: 11/27/20 17:03 Source: EMS, RN notes reviewed Mode of arrival: EMS Limitations: no limitations - History of Present Illness Initial comments: 60-year-old male with a complicated past medical history presents to the emergency room for abdominal pain. Patient reports he has had abdominal pain for several weeks. Patient states he was seen here in the hospital and had a CT done at beginning of October and there were no acute findings. He states that he started to take a laxative because he was told he was constipated. States that he at that time was having small bowel movements every few days. However now he has not had a bowel movement for 9 days. States that this laxative is not helping him.Patient has no other complaints at this time including shortness of breath, chest pain, nausea or vomiting, headache, or visual changes. - Related Data Home Medications Medication Instructions Recorded Confirmed Rivaroxaban [Xarelto] 20 mg PO DAILY 07/14/19 11/27/20 DULoxetine HCL [Cymbalta] 60 mg PO DAILY 07/15/19 11/27/20 dilTIAZem HCL [Diltiazem HCl] 30 mg PO TID 07/15/19 11/27/20 Atorvastatin [Lipitor] 10 mg PO HS 08/03/19 11/27/20 Lidocaine 5% Patch [Lidoderm 5% 1 patch TOPICAL DAILY 08/03/19 11/27/20 Patch] Furosemide [Lasix] 40 mg PO BID 10/31/19 11/27/20 Buprenorphine HCl [Belbuca] 1 film SL BID 10/29/20 11/27/20 HYDROcodone/APAP 10-325MG [[place] 1 tab PO BID PRN 10/29/20 11/27/20 10-325] Ipratropium-Albuterol Nebulize 3 ml INHALATION RT-QID 10/29/20 11/27/20 [Duoneb 0.5 mg-3 mg/3 ml Soln] OLANZapine 20 mg PO HS 10/29/20 11/27/20 Albuterol Sulfate [Proair Hfa] 1 - 2 puff INHALATION RT-Q6H PRN 11/27/20 11/27/20 Gabapentin [Neurontin] 800 mg PO Q8H PRN 11/27/20 11/27/20 Lactulose [Constulose] 1 dose PO TID PRN 11/27/20 11/27/20 Previous Rx's Medication Instructions Recorded Potassium Chloride ER [K-Dur 20] 20 meq PO BID #0 11/05/20 Peg 3350-Na Sulf,Bicarb,Cl/KCl 4,000 ml PO DIRECTED #1 bottle 11/27/20 [Golytely Lavage] Allergies Allergy/AdvReac Type Severity Reaction Status Date / Time codeine Allergy Severe Swelling Verified 11/27/20 19:27 OF THROAT WITH COUGH SYRUP chlorpheniramine Allergy Unknown Verified 11/27/20 19:27 febuxostat [From Uloric] Allergy Unknown Verified 11/27/20 19:27 phenylephrine Allergy Unknown Verified 11/27/20 19:27 piperacillin sodium Allergy Unknown Verified 11/27/20 19:27 [From Zosyn] sulfamethoxazole Allergy Unknown Verified 11/27/20 19:27 [From Bactrim] tazobactam sodium Allergy Unknown Verified 11/27/20 19:27 [From Zosyn] trimethoprim [From Bactrim] Allergy Unknown Verified 11/27/20 19:27 buspirone [From BuSpar] AdvReac Rapid Verified 11/27/20 19:27 Heart Rate Review of Systems ROS Statement: Those systems with pertinent positive or pertinent negative responses have been documented in the HPI. ROS Other: All systems not noted in ROS Statement are negative. Past Medical History Past Medical History: Atrial Fibrillation, Asthma, Cancer, Heart Failure, COPD, CVA/TIA, Diabetes Mellitus, Deep Vein Thrombosis (DVT), GERD/Reflux, GI Bleed, Hyperlipidemia, Hypertension, Osteoarthritis (OA), Pneumonia, Pulmonary Embolus (PE), Renal Disease, Respiratory Disorder, Sleep Apnea/CPAP/BIPAP Additional Past Medical History / Comment(s): Pt recently admitted to [facility] on 08/05/19 with acute on chronic CHF/abnormal ECHO-see report/paroxysmal afib/bilateral pleural effusions with R sided thoracentesis. Other hx: Pt denies diabetes stating he has hypoglycemia/pt recently transfered to [facility] for endocrinology consultation-states he wasn't told anything new, states he has bilateral feet neuropathy, colitis, chronic diffuse abdominal pain, chronic generalized pain, fluid retention, bedbound, lower GI bleed, hiatal hernia, DVT in leg which traveled to his lung, DDD, scoliosis, ALEXIS without device, CKD stage III, pseudoseizures with past extensive work up thru [facility], basal cell skin cancer removed from face. History of Any Multi-Drug Resistant Organisms: C-DIFF, MRSA Date of last positivie culture/infection: mrsa 2018, c-diff 2019 MDRO Source:: sputum, stool Past Surgical History: Appendectomy, Bariatric Surgery, Heart Catheterization, Hernia Repair, Joint Replacement, Orthopedic Surgery Additional Past Surgical History / Comment(s): Gastric sleeve in 2014, L inguinal hernia repair, R elbow surgery x2, total R hip arthroplasty, L knee arthroscopy/ACL surgery, R ankle ORIF, EGD, colonoscopy, basal cell skin cancer from face, surgery for varicele. Past Anesthesia/Blood Transfusion Reactions: Previous Problems w/ Anesthesia Additional Past Anesthesia/Blood Transfusion Reaction / Comment(s): STATES HE WAS TOLD HE WAS A DIFFICULT INTUBATION WITH GASTRIC SLEEVE SURGERY, Past Psychological History: Anxiety, Bipolar, Depression, Panic Disorder, Schizoaffective Disorder Smoking Status: Former smoker Past Alcohol Use History: None Reported Past Drug Use History: None Reported - Past Family History Father Family Medical History: Cancer Additional Family Medical History / Comment(s): LUNG CA Mother Family Medical History: Coronary Artery Disease (CAD) Additional Family Medical History / Comment(s): Mother of an infection. General Exam Limitations: no limitations General appearance: alert, in no apparent distress Head exam: Present: atraumatic, normocephalic, normal inspection Eye exam: Present: normal appearance, PERRL, EOMI. Absent: scleral icterus, conjunctival injection, periorbital swelling ENT exam: Present: normal exam, mucous membranes moist Neck exam: Present: normal inspection, full ROM. Absent: tenderness, meni ngismus, lymphadenopathy Respiratory exam: Present: normal lung sounds bilaterally. Absent: respiratory distress, wheezes, rales, rhonchi, stridor Cardiovascular Exam: Present: regular rate, normal rhythm, normal heart sounds. Absent: systolic murmur, diastolic murmur, rubs, gallop, clicks GI/Abdominal exam: Present: soft, tenderness (Minimal generalized abdominal tenderness), normal bowel sounds. Absent: distended, guarding, rebound, rigid Neurological exam: Present: alert Course Vital Signs 11/27/20 11/27/20 11/27/20 16:52 20:52 22:29 Temperature 98.9 F Pulse Rate 78 92 98 Respiratory 18 22 Rate Blood Pressure 142/70 140/75 145/92 O2 Sat by Pulse 96 95 95 Oximetry Procedures - [place] Protocol (Time Out) Nurse: Alex London Medical Decision Making - Medical Decision Making Vitals are stable. CBC is unremarkable. No leukocytosis. CMP does reveal elevated CO2 however this is chronic in nature. X-ray KUB shows mild constipation without free air. Right pleural effusion not changed compared to chest x-ray of 11/04/2020. Discussed case with Dr. Camara, at this time recommending enema. Bowel Movement achieved - Lab Data Result diagrams: 11/27/20 17:44 11/27/20 17:43 Lab Results 11/27/20 11/27/20 11/27/20 Range/Units 17:43 17:44 17:45 WBC 4.7 (3.8-10.6) k/uL RBC 3.95 L (4.30-5.90) m/uL Hgb 11.3 L (13.0-17.5) gm/dL Hct 34.6 L (39.0-53.0) % MCV 87.7 (80.0-100.0) fL MCH 28.6 (25.0-35.0) pg MCHC 32.6 (31.0-37.0) g/dL RDW 13.9 (11.5-15.5) % Plt Count 199 (150-450) k/uL MPV 7.4 Neutrophils % 71 % Lymphocytes % 14 % Monocytes % 9 % Eosinophils % 4 % Basophils % 1 % Neutrophils # 3.3 (1.3-7.7) k/uL Lymphocytes # 0.7 L (1.0-4.8) k/uL Monocytes # 0.4 (0-1.0) k/uL Eosinophils # 0.2 (0-0.7) k/uL Basophils # 0.0 (0-0.2) k/uL Sodium 136 L (137-145) mmol/L Potassium 3.8 (3.5-5.1) mmol/L Chloride 87 L (98-107) mmol/L Carbon Dioxide 47 H* (22-30) mmol/L Anion Gap 2 mmol/L BUN 23 H (9-20) mg/dL Creatinine 0.70 (0.66-1.25) mg/dL Est GFR (CKD-EPI)AfAm >90 (>60 ml/min/1.73 sqM) Est GFR (CKD-EPI)NonAf >90 (>60 ml/min/1.73 sqM) Glucose 107 H (74-99) mg/dL Calcium 8.7 (8.4-10.2) mg/dL Total Bilirubin 0.5 (0.2-1.3) mg/dL AST 55 (17-59) U/L ALT 31 (4-49) U/L Alkaline Phosphatase 121 (38-126) U/L Total Protein 5.9 L (6.3-8.2) g/dL Albumin 3.2 L (3.5-5.0) g/dL Amylase 36 (30-110) U/L Lipase 71 (23-300) U/L Urine Color Light Yellow Urine Appearance Clear (Clear) Urine pH 7.0 (5.0-8.0) Ur Specific [place] 1.006 (1.001-1.035) Urine Protein Negative (Negative) Urine Glucose (UA) Negative (Negative) Urine Ketones Negative (Negative) Urine Blood Negative (Negative) Urine Nitrite Negative (Negative) Urine Bilirubin Negative (Negative) Urine Urobilinogen <2.0 (<2.0) mg/dL Ur Leukocyte Esterase Negative (Negative) Disposition Clinical Impression: Abdominal pain Disposition: HOME SELF-CARE Condition: Good Instructions (If sedation given, give patient instructions): Constipation (ED), Abdominal Pain (ED) Additional Instructions: Please take GoLYTELY as directed. Please follow-up with your doctor in one to 2 days. If you have worsening symptoms return to the emergency room. Prescriptions: Peg 3350-Na Sulf,Bicarb,Cl/KCl [Golytely Lavage] 4,000 ml PO DIRECTED #1 b ottle Is patient prescribed a controlled substance at d/c from ED?: No Referrals: Nonstaff,Physician [Primary Care Provider] - 1-2 days Time of Disposition: 19:37
--- NOTE | 2020-11-27 18:42 | XR ---
EXAMINATION TYPE: XR KUB DATE OF EXAM: 11/27/2020 COMPARISON: 07/14/2019 HISTORY: Abdominal pain TECHNIQUE: 6 views FINDINGS: There is no sign of intestinal obstruction or pneumoperitoneum. There is some retained feca l material throughout the large bowel. There is blunting right costophrenic angle. There are no patho logic calcifications over the kidneys. IMPRESSION: Mild constipation. No free air. There is right pleural effusion increased compared to old exam. Right pleural effusion not changed compared to chest x-ray of 11/04/2020.
[2020-11-27 22:31] VITALS: BP 145/92; PULSE 98; RESP 22
== END 2020-11-27 22:31 | disposition home or self-care (01) ==
LOC: EC 16:49
DX: R10.9 Unspecified abdominal pain (principal); K59.00 Constipation, unspecified; J90 Pleural effusion, not elsewhere classified; I48.0 Paroxysmal atrial fibrillation; I11.0 Hypertensive heart disease with heart failure; I50.9 Heart failure, unspecified; J44.9 Chronic obstructive pulmonary disease, unspecified; K21.9 Gastro-esophageal reflux disease without esophagitis; F41.9 Anxiety disorder, unspecified; F32.9 Major depressive disorder, single episode, unspecified; E11.9 Type 2 diabetes mellitus without complications; E78.5 Hyperlipidemia, unspecified; F25.9 Schizoaffective disorder, unspecified; G47.30 Sleep apnea, unspecified; Z79.01 Long term (current) use of anticoagulants; Z79.899 Other long term (current) drug therapy; Z88.5 Allergy status to narcotic agent; Z88.8 Allergy status to other drugs, medicaments and biological substances; Z88.1 Allergy status to other antibiotic agents; Z88.2 Allergy status to sulfonamides; Z86.711 Personal history of pulmonary embolism; Z85.828 Personal history of other malignant neoplasm of skin; Z86.718 Personal history of other venous thrombosis and embolism; Z86.73 Personal history of transient ischemic attack (TIA), and cerebral infarction without residual deficits; Z98.84 Bariatric surgery status; Z87.891 Personal history of nicotine dependence; Z99.89 Dependence on other enabling machines and devices
CPT/HCPCS: 36415; 74018; 80053; 81003; 82150; 83690; 85025; 99284

== ENCOUNTER 2021-01-13 18:41 | Emergency (ER) | payer MEDICARE, BC, OTHER ==
[2021-01-13 19:18] LABS: Basophils % (A) 1 %; Eosinophils # (A) 0.2 k/uL (0-0.7); Eosinophils % (A) 3 %; HCT 40.8 % (39.0-53.0); HGB 12.9 gm/dL (13.0-17.5); Lymphocytes # (A) 0.7 k/uL (1.0-4.8); Lymphocytes % (A) 11 %; MCH 27.2 pg (25.0-35.0); MCHC 31.6 g/dL (31.0-37.0); Mean Platelet Volume 7.1; Monocytes # (A) 0.4 k/uL (0-1.0); Monocytes % (A) 6 %; Neutrophils # (A) 5.2 k/uL (1.3-7.7); Neutrophils % (A) 79 %; Platelet Count 283 k/uL (150-450); RBC 4.74 m/uL (4.30-5.90); WBC 6.7 k/uL (3.8-10.6)
[2021-01-13 19:46] LABS: ALT 24 U/L (4-49); AST 37 U/L (17-59); African American GFR (CKD) >90 (>60 ml/min/1.73 sqM); Alkaline Phosphatase 123 U/L (38-126); Amylase 31 U/L (30-110); Blood Urea Nitrogen 30 mg/dL (9-20); Calcium 9.4 mg/dL (8.4-10.2); Chloride 78 mmol/L (98-107); Glucose 118 mg/dL (74-99); Lipase 67 U/L (23-300); Non-African American GFR(CKD) >90 (>60 ml/min/1.73 sqM); Potassium 3.1 mmol/L (3.5-5.1); Sodium 133 mmol/L (137-145); Total Bilirubin 0.7 mg/dL (0.2-1.3); Total Protein 7.1 g/dL (6.3-8.2)
[2021-01-13 19:52] LABS: Anion Gap 12 mmol/L
[2021-01-13 19:55] LABS: Carbon Dioxide 43 mmol/L (22-30)
--- NOTE | 2021-01-13 19:59 | ED ---
Abdominal Pain HPI - General Chief Complaint: Abdominal Pain Stated Complaint: Constipation Time Seen by Provider: 01/13/21 18:51 Source: EMS Mode of arrival: EMS Limitations: no limitations - History of Present Illness Initial Comments: This is a 60-year-old male with extensive past medical history including atrial fibrillation cancer heart failure previous CVA, diabetes history of deep venous thrombosis, GI bleed hypertension dyslipidemia as well as renal disease obstructive sleep apnea, morbid obesity, patient is bedbound presents emergency department today for chief complaint of constipation. Patient states he frequently struggles with constipation and often has to have and was performed by his home care nurse. Patient states he has not had a bowel movement in 10-14 days. Patient states he has had a Fleet enema with a last week which was not successful. He states he does have abdominal distention and pain all over. Denies localized pain, nauea, vomiting, chest pain, dyspnea. Patient denies rectal bleeding, dark stools. patient has no additional complaints. he does not appear in distress on arrival. - Related Data Home Medications Medication Instructions Recorded Confirmed Rivaroxaban [Xarelto] 20 mg PO DAILY 07/14/19 01/13/21 DULoxetine HCL [Cymbalta] 60 mg PO DAILY 07/15/19 01/13/21 dilTIAZem HCL [Diltiazem HCl] 30 mg PO TID 07/15/19 01/13/21 Atorvastatin [Lipitor] 10 mg PO HS 08/03/19 01/13/21 Lidocaine 5% Patch [Lidoderm 5% 1 patch TOPICAL DAILY 08/03/19 01/13/21 Patch] Furosemide [Lasix] 40 mg PO BID@0800,1200 10/31/19 01/13/21 Buprenorphine HCl [Belbuca] 1 film SL BID 10/29/20 01/13/21 HYDROcodone/APAP 10-325MG [[place] 1 tab PO BID PRN 10/29/20 01/13/21 10-325] Ipratropium-Albuterol Nebulize 3 ml INHALATION RT-QID 10/29/20 01/13/21 [Duoneb 0.5 mg-3 mg/3 ml Soln] OLANZapine 20 mg PO HS 10/29/20 01/13/21 Albuterol Sulfate [Proair Hfa] 1 - 2 puff INHALATION RT-Q6H PRN 11/27/20 01/13/21 Gabapentin [Neurontin] 800 mg PO Q8H PRN 11/27/20 01/13/21 Lactulose [Constulose] 1 dose PO TID PRN 11/27/20 01/13/21 metOLazone [Zaroxolyn] 2.5 mg PO DAILY 01/13/21 01/13/21 Previous Rx's Medication Instructions Recorded Potassium Chloride ER [K-Dur 20] 20 meq PO BID #0 11/05/20 Azithromycin [Zithromax Z-pack (6 0 mg PO DIRECTED #6 tab 01/13/21 tabs)] Allergies Allergy/AdvReac Type Severity Reaction Status Date / Time codeine Allergy Severe Swelling Verified 01/13/21 19:38 OF THROAT WITH COUGH SYRUP chlorpheniramine Allergy Unknown Verified 01/13/21 19:38 febuxostat [From Uloric] Allergy Unknown Verified 01/13/21 19:38 phenylephrine Allergy Unknown Verified 01/13/21 19:38 piperacillin sodium Allergy Unknown Verified 01/13/21 19:38 [From Zosyn] sulfamethoxazole Allergy Unknown Verified 01/13/21 19:38 [From Bactrim] tazobactam sodium Allergy Unknown Verified 01/13/21 19:38 [From Zosyn] trimethoprim [From Bactrim] Allergy Unknown Verified 01/13/21 19:38 buspirone [From BuSpar] AdvReac Rapid Verified 01/13/21 19:38 Heart Rate Review of Systems ROS Statement: Those systems with pertinent positive or pertinent negative responses have been documented in the HPI. ROS Other: All systems not noted in ROS Statement are negative. Past Medical History Past Medical History: Atrial Fibrillation, Asthma, Cancer, Heart Failure, COPD, CVA/TIA, Diabetes Mellitus, Deep Vein Thrombosis (DVT), GERD/Reflux, GI Bleed, Hyperlipidemia, Hypertension, Osteoarthritis (OA), Pneumonia, Pulmonary Embolus (PE), Renal Disease, Respiratory Disorder, Sleep Apnea/CPAP/BIPAP Additional Past Medical History / Comment(s): Pt recently admitted to [facility] on 08/05/19 with acute on chronic CHF/abnormal ECHO-see report/paroxysmal afib/bilateral pleural effusions with R sided thoracentesis. Other hx: Pt denies diabetes stating he has hypoglycemia/pt recently transfered to [facility] for endocrinology consultation-states he wasn't told anything new, states he has bilateral feet neuropathy, colitis, chronic diffuse abdominal pain, chronic generalized pain, fluid retention, bedbound, lower GI bleed, hiatal hernia, DVT in leg which traveled to his lung, DDD, scoliosis, ALEXIS without device, CKD stage III, pseudoseizures with past extensive work up thru [facility], basal cell skin cancer removed from face. History of Any Multi-Drug Resistant Organisms: C-DIFF, MRSA Date of last positivie culture/infection: mrsa 2018, c-diff 2019 MDRO Source:: sputum, stool Past Surgical History: Appendectomy, Bariatric Surgery, Heart Catheterization, Hernia Repair, Joint Replacement, Orthopedic Surgery Additional Past Surgical History / Comment(s): Gastric sleeve in 2014, L inguinal hernia repair, R elbow surgery x2, total R hip arthroplasty, L knee arthroscopy/ACL surgery, R ankle ORIF, EGD, colonoscopy, basal cell skin cancer from face, surgery for varicele. Past Anesthesia/Blood Transfusion Reactions: Previous Problems w/ Anesthesia Additional Past Anesthesia/Blood Transfusion Reaction / Comment(s): STATES HE WAS TOLD HE WAS A DIFFICULT INTUBATION WITH GASTRIC SLEEVE SURGERY, Past Psychological History: Anxiety, Bipolar, Depression, Panic Disorder, Schizoaffective Disorder Smoking Status: Former smoker Past Alcohol Use History: None Reported Past Drug Use History: None Reported - Past Family History Father Family Medical History: Cancer Additional Family Medical History / Comment(s): LUNG CA Mother Family Medical History: Coronary Artery Disease (CAD) Additional Family Medical History / Comment(s): Mother of an infection. General Exam - General Exam Comments Initial Comments: General: The patient is awake and alert, in no distress Eye: +3 mm pupils are equal, round and reactive to light, extra-ocular movements are intact. No nystagmus. There is normal conjunctiva bilaterally. No signs of icterus. Ears, nose, mouth and throat: There are moist mucous membranes and no oral lesions. Neck: The neck is supple, there is no tenderness or JVD. Cardiovascular: There is a regular rate and rhythm. No murmur, rub or gallop is appreciated. Respiratory: Lungs are clear to auscultation, respirations are non-labored, breath sounds are equal. No wheezes, stridor, rales, or rhonchi. Gastrointestinal: Soft, morbidly obese, non-distended, non-tender abdomen without masses or organomegaly noted. There is no rebound or guarding present. Musculoskeletal: Normal ROM, no tenderness. Strength 5/5. Sensation intact. Radial pulses equal bilaterally 2+. Neurological: A&O x 3. CN II-XII intact grossly, There are no obvious motor or sensory deficits. Coordination appears grossly intact. Speech is normal. Skin: Skin is warm and dry and no rashes or lesions are noted. Psychiatric: Cooperative, appropriate mood & affect, normal judgment. Limitations: no limitations Course Vital Signs 01/13/21 01/13/21 01/13/21 18:43 20:36 22:05 Temperature 99.6 F Pulse Rate 77 76 77 Respiratory 16 18 20 Rate Blood Pressure 127/74 129/67 132/82 O2 Sat by Pulse 98 98 97 Oximetry 01/14/21 00:03 Temperature 98.9 F Pulse Rate 78 Respiratory 20 Rate Blood Pressure 147/86 O2 Sat by Pulse 97 Oximetry Medical Decision Making - Medical Decision Making Lab mostly reveal chronic findings. mild hypokalemia. patient has chronic elevated CO2 levels. CT no acute findings, chronic pleural effusion (pt states that this frequently needs drained). denies chest pain dyspnea. denies fevers. cannot r/o developing pneumonia, denies cough. azithromycin initiated as a caution givne comorbidities. no leukocytosis. patient has VERY large bowel movement after 1 nuchal molasses enema. At this time he states he is feeling better and was discharged appearing well. Dr Metcalf reviewed labs and is agreeable to care plan and discharge. - Lab Data Result diagrams: 01/13/21 19:00 01/13/21 19:00 Lab Results 01/13/21 01/13/21 01/13/21 Range/Units 19:00 19:00 19:00 WBC 6.7 (3.8-10.6) k/uL RBC 4.74 (4.30-5.90) m/uL Hgb 12.9 L (13.0-17.5) gm/dL Hct 40.8 (39.0-53.0) % MCV 86.0 (80.0-100.0) fL MCH 27.2 (25.0-35.0) pg MCHC 31.6 (31.0-37.0) g/dL RDW 14.0 (11.5-15.5) % Plt Count 283 (150-450) k/uL MPV 7.1 Neutrophils % 79 % Lymphocytes % 11 % Monocytes % 6 % Eosinophils % 3 % Basophils % 1 % Neutrophils # 5.2 (1.3-7.7) k/uL Lymphocytes # 0.7 L (1.0-4.8) k/uL Monocytes # 0.4 (0-1.0) k/uL Eosinophils # 0.2 (0-0.7) k/uL Basophils # 0.0 (0-0.2) k/uL Sodium 133 L (137-145) mmol/L Potassium 3.1 L (3.5-5.1) mmol/L Chloride 78 L (98-107) mmol/L Carbon Dioxide 43 H* (22-30) mmol/L Anion Gap 12 mmol/L BUN 30 H (9-20) mg/dL Creatinine 0.72 (0.66-1.25) mg/dL Est GFR (CKD-EPI)AfAm >90 (>60 ml/min/1.73 sqM) Est GFR (CKD-EPI)NonAf >90 (>60 ml/min/1.73 sqM) Glucose 118 H (74-99) mg/dL Plasma Lactic Acid Benjie (0.7-2.0) mmol/L Calcium 9.4 (8.4-10.2) mg/dL Total Bilirubin 0.7 (0.2-1.3) mg/dL AST 37 (17-59) U/L ALT 24 (4-49) U/L Alkaline Phosphatase 123 (38-126) U/L Total Protein 7.1 (6.3-8.2) g/dL Albumin 4.0 (3.5-5.0) g/dL Amylase 31 (30-110) U/L Lipase 67 (23-300) U/L Urine Color Light Yellow Urine Appearance Clear (Clear) Urine pH 6.5 (5.0-8.0) Ur Specific [place] 1.007 (1.001-1.035) Urine Protein Negative (Negative) Urine Glucose (UA) Negative (Negative) Urine Ketones Negative (Negative) Urine Blood Small H (Negative) Urine Nitrite Negative (Negative) Urine Bilirubin Negative (Negative) Urine Urobilinogen <2.0 (<2.0) mg/dL Ur Leukocyte Esterase Negative (Negative) Urine RBC 4 (0-5) /hpf Urine WBC <1 (0-5) /hpf Ur Squamous Epith Cells <1 (0-4) /hpf Urine Bacteria Rare H (None) /hpf Hyaline Casts 3 H (0-2) /lpf 01/13/21 Range/Units 19:00 WBC (3.8-10.6) k/uL RBC (4.30-5.90) m/uL Hgb (13.0-17.5) gm/dL Hct (39.0-53.0) % MCV (80.0-100.0) fL MCH (25.0-35.0) pg MCHC (31.0-37.0) g/dL RDW (11.5-15.5) % Plt Count (150-450) k/uL MPV Neutrophils % % Lymphocytes % % Monocytes % % Eosinophils % % Basophils % % Neutrophils # (1.3-7.7) k/uL Lymphocytes # (1.0-4.8) k/uL Monocytes # (0-1.0) k/uL Eosinophils # (0-0.7) k/uL Basophils # (0-0.2) k/uL Sodium (137-145) mmol/L Potassium (3.5-5.1) mmol/L Chloride (98-107) mmol/L Carbon Dioxide (22-30) mmol/L Anion Gap mmol/L BUN (9-20) mg/dL Creatinine (0.66-1.25) mg/dL Est GFR (CKD-EPI)AfAm (>60 ml/min/1.73 sqM) Est GFR (CKD-EPI)NonAf (>60 ml/min/1.73 sqM) Glucose (74-99) mg/dL Plasma Lactic Acid Benjie 1.3 (0.7-2.0) mmol/L Calcium (8.4-10.2) mg/dL Total Bilirubin (0.2-1.3) mg/dL AST (17-59) U/L ALT (4-49) U/L Alkaline Phosphatase (38-126) U/L Total Protein (6.3-8.2) g/dL Albumin (3.5-5.0) g/dL Amylase (30-110) U/L Lipase (23-300) U/L Urine Color Urine Appearance (Clear) Urine pH (5.0-8.0) Ur Specific [place] (1.001-1.035) Urine Protein (Negative) Urine Glucose (UA) (Negative) Urine Ketones (Negative) Urine Blood (Negative) Urine Nitrite (Negative) Urine Bilirubin (Negative) Urine Urobilinogen (<2.0) mg/dL Ur Leukocyte Esterase (Negative) Urine RBC (0-5) /hpf Urine WBC (0-5) /hpf Ur Squamous Epith Cells (0-4) /hpf Urine Bacteria (None) /hpf Hyaline Casts (0-2) /lpf Disposition Clinical Impression: Chronic pleural effusion, Constipation, Elevated carbon dioxide level Disposition: HOME SELF-CARE Condition: Good Additional Instructions: Please use medication as discussed. Please follow-up with family doctor in the next 2 days. Please return to emergency room if the symptoms increase or worsen or for any other concerns. Prescriptions: Azithromycin [Zithromax Z-pack (6 tabs)] 0 mg PO DIRECTED #6 tab Is patient prescribed a controlled substance at d/c from ED?: No Referrals: Nonstaff,Physician [Primary Care Provider] - 1-2 days Time of Disposition: 23:18
[2021-01-13] MEDS ORDERED: POTASSIUM CHLORIDE ER 10 MEQ TAB.ER.PRT PO STA (20:00)
[2021-01-13 20:23] LABS: Appearance,Urine Clear (Clear); Bacteria,Urine Rare /hpf; Bilirubin,Urine Negative (Negative); Blood,Urine Small (Negative); Color,Urine Light Yellow; Glucose,Urine (UA) Negative (Negative); Hyaline Casts,Urine 3 /lpf (0-2); Ketones,Urine Negative (Negative); Leukocyte Esterase,Urine Negative (Negative); Nitrite,Urine Negative (Negative); PH, Urine 6.5 (5.0-8.0); Protein,Urine Negative (Negative); RBC,Urine 4 /hpf (0-5); Specific Gravity,Urine 1.007 (1.001-1.035); Squamous Epithelial Cell,Urine <1 /hpf (0-4); Urobilinogen,Urine <2.0 mg/dL (<2.0); WBC,Urine <1 /hpf (0-5)
[2021-01-13] MEDS: SODIUM CHLORIDE 0.9% 1,000 ML IV SCH ×2 (20:29→20:30)
--- NOTE | 2021-01-13 21:28 | CT ---
EXAMINATION TYPE: CT abdomen pelvis w con DATE OF EXAM: 01/13/2021 COMPARISON: 10/30/2020 HISTORY: Abdominal pain, acute, non-localized. Pt study limited by pt habitus. CT DLP: 5147.9 mGycm Automated exposure control for dose reduction was used. CONTRAST: Performed with IV Contrast, patient injected with 100 mL of Isovue 300. There is consolidation and atelectasis right lower lobe. There is moderate right pleural effusion. Th ere is some coronary artery calcification. Heart size is fairly normal. There is no pericardial effus ion. Liver and spleen appear intact. The bile ducts are not dilated. Gallbladder appears normal. There is no pancreatic mass. The stomach is intact. There is previous gastric surgery. There is no adrenal mass. There are multiple small bilateral renal calculi that measure up to 2 mm. T here is no hydronephrosis. Ureters are not dilated. There is contrast opacification of both kidneys. Delayed images show very little excretion of contrast. This is consistent with renal failure. There is no retroperitoneal adenopathy. There is right hip prosthesis. Bladder distends smoothly. The re is no pelvic mass. There is small left inguinal hernia that contains fat. There is no mesenteric edema. There is no ascites or free air. There is no bowel obstruction. Lumbar vertebra have normal alignment. Posterior elements are intact. The bony pelvis is intact. Ther e is flattening of the articular surface of the left femoral head consistent with fracture and chroni c avascular necrosis. There is severe narrowing of the left hip joint space and mild lateral subluxat ion. There is sclerotic focus on the right side of the L4 vertebral body consistent with bone island. IMPRESSION: Severe osteoarthritis and probable chronic avascular necrosis of the left femoral head. Right lower lobe consolidation and atelectasis in right pleural effusion which is not significantly d ifferent than old exam.
--- NOTE | 2021-01-13 21:54 | XR ---
EXAMINATION TYPE: XR chest 1V portable DATE OF EXAM: 01/13/2021 COMPARISON: 11/04/2020 HISTORY: Short of breath TECHNIQUE: FINDINGS: There is large right pleural effusion. The left lung is clear. There is no heart failure. H eart is probably enlarged. IMPRESSION: Right pleural effusion is the same or increased compared to old exam. No obvious heart fa ilure. Right lower lobe pneumonia is possible.
[2021-01-14 00:37] VITALS: RESP 20
[2021-01-14 00:45] VITALS: BP 147/86; PULSE 78; TEMP 98.9
== END 2021-01-14 00:03 | disposition home or self-care (01) ==
LOC: EC 18:41
DX: K59.00 Constipation, unspecified (principal); J90 Pleural effusion, not elsewhere classified; R79.81 Abnormal blood-gas level; F41.9 Anxiety disorder, unspecified; F31.9 Bipolar disorder, unspecified; F41.0 Panic disorder [episodic paroxysmal anxiety]; F25.9 Schizoaffective disorder, unspecified; I48.91 Unspecified atrial fibrillation; J44.9 Chronic obstructive pulmonary disease, unspecified; I50.9 Heart failure, unspecified; E11.9 Type 2 diabetes mellitus without complications; K21.9 Gastro-esophageal reflux disease without esophagitis; E78.5 Hyperlipidemia, unspecified; I11.0 Hypertensive heart disease with heart failure; M19.90 Unspecified osteoarthritis, unspecified site; G47.33 Obstructive sleep apnea (adult) (pediatric); Z79.51 Long term (current) use of inhaled steroids; Z79.01 Long term (current) use of anticoagulants; Z79.899 Other long term (current) drug therapy; Z79.84 Long term (current) use of oral hypoglycemic drugs; Z88.1 Allergy status to other antibiotic agents; Z88.2 Allergy status to sulfonamides; Z88.5 Allergy status to narcotic agent; Z88.8 Allergy status to other drugs, medicaments and biological substances; Z87.891 Personal history of nicotine dependence; Z86.14 Personal history of Methicillin resistant Staphylococcus aureus infection; Z90.49 Acquired absence of other specified parts of digestive tract; Z86.711 Personal history of pulmonary embolism; Z95.5 Presence of coronary angioplasty implant and graft; Z96.641 Presence of right artificial hip joint; Z85.828 Personal history of other malignant neoplasm of skin
CPT/HCPCS: 36415; 80053; 82150; 83605; 83690; 85025; 81001; 71045; 74177; 99284; Q9967

== ENCOUNTER 2021-02-06 18:44 | Emergency (ER) | payer MEDICARE, BC, OTHER ==
[2021-02-06 18:56] VITALS: RESP 20
[2021-02-06 19:20] LABS: Basophils % (A) 1 %; Eosinophils # (A) 0.1 k/uL (0-0.7); Eosinophils % (A) 2 %; HCT 38.5 % (39.0-53.0); HGB 12.8 gm/dL (13.0-17.5); Lymphocytes # (A) 0.7 k/uL (1.0-4.8); Lymphocytes % (A) 13 %; MCHC 33.2 g/dL (31.0-37.0); MCV 84.3 fL (80.0-100.0); Mean Platelet Volume 7.9; Monocytes # (A) 0.4 k/uL (0-1.0); Monocytes % (A) 7 %; Neutrophils % (A) 76 %; Platelet Count 269 k/uL (150-450); RBC 4.56 m/uL (4.30-5.90); WBC 5.3 k/uL (3.8-10.6)
[2021-02-06 19:28] LABS: ALT 39 U/L (4-49); AST 35 U/L (17-59); African American GFR (CKD) >90 (>60 ml/min/1.73 sqM); Albumin 3.8 g/dL (3.5-5.0); Alkaline Phosphatase 139 U/L (38-126); Blood Urea Nitrogen 24 mg/dL (9-20); Calcium 9.1 mg/dL (8.4-10.2); Chloride 81 mmol/L (98-107); Glucose 149 mg/dL (74-99); Non-African American GFR(CKD) >90 (>60 ml/min/1.73 sqM); Potassium 2.9 mmol/L (3.5-5.1); Sodium 135 mmol/L (137-145); Total Bilirubin 0.5 mg/dL (0.2-1.3); Total Protein 6.6 g/dL (6.3-8.2)
--- NOTE | 2021-02-06 19:30 | ED ---
General Adult HPI - General Chief complaint: Recheck/Abnormal Lab/Rx Stated complaint: lab recheck Time Seen by Provider: 02/06/21 18:50 Source: patient, EMS, RN notes reviewed, old records reviewed Mode of arrival: EMS - History of Present Illness Initial comments: This a 60-year-old male who presents emergency Department with the past medical history significant for rheumatoid arthritis chronic pain schizoaffective disorder and congestive heart failure. Patient states he hasn't ambulated in over a year and a half. Patient states he comes in today because he was called us that he had some abnormal labs such as uric acid and carbon dioxide. Patient states he's had no new symptoms however he states she's been lightheaded a few times every day for over a month but he doesn't follow up with his primary medical care doctor. Patient denies any nausea vomiting diarrhea. Patient denies any chest pain palpitations or difficulty breathing. Patient denies any abdominal pain. - Related Data Home Medications Medication Instructions Recorded Confirmed Rivaroxaban [Xarelto] 20 mg PO DAILY 07/14/19 01/13/21 DULoxetine HCL [Cymbalta] 60 mg PO DAILY 07/15/19 01/13/21 dilTIAZem HCL [Diltiazem HCl] 30 mg PO TID 07/15/19 01/13/21 Atorvastatin [Lipitor] 10 mg PO HS 08/03/19 01/13/21 Lidocaine 5% Patch [Lidoderm 5% 1 patch TOPICAL DAILY 08/03/19 01/13/21 Patch] Furosemide [Lasix] 40 mg PO BID@0800,1200 10/31/19 01/13/21 Buprenorphine HCl [Belbuca] 1 film SL BID 10/29/20 01/13/21 HYDROcodone/APAP 10-325MG [[place] 1 tab PO BID PRN 10/29/20 01/13/21 10-325] Ipratropium-Albuterol Nebulize 3 ml INHALATION RT-QID 10/29/20 01/13/21 [Duoneb 0.5 mg-3 mg/3 ml Soln] OLANZapine 20 mg PO HS 10/29/20 01/13/21 Albuterol Sulfate [Proair Hfa] 1 - 2 puff INHALATION RT-Q6H PRN 11/27/20 01/13/21 Gabapentin [Neurontin] 800 mg PO Q8H PRN 11/27/20 01/13/21 Lactulose [Constulose] 1 dose PO TID PRN 11/27/20 01/13/21 metOLazone [Zaroxolyn] 2.5 mg PO DAILY 01/13/21 01/13/21 Previous Rx's Medication Instructions Recorded Potassium Chloride ER [K-Dur 20] 20 meq PO BID #0 11/05/20 Azithromycin [Zithromax Z-pack (6 0 mg PO DIRECTED #6 tab 01/13/21 tabs)] Allergies Allergy/AdvReac Type Severity Reaction Status Date / Time codeine Allergy Severe Swelling Verified 01/13/21 19:38 OF THROAT WITH COUGH SYRUP chlorpheniramine Allergy Unknown Verified 01/13/21 19:38 febuxostat [From Uloric] Allergy Unknown Verified 01/13/21 19:38 phenylephrine Allergy Unknown Verified 01/13/21 19:38 piperacillin sodium Allergy Unknown Verified 01/13/21 19:38 [From Zosyn] sulfamethoxazole Allergy Unknown Verified 01/13/21 19:38 [From Bactrim] tazobactam sodium Allergy Unknown Verified 01/13/21 19:38 [From Zosyn] trimethoprim [From Bactrim] Allergy Unknown Verified 01/13/21 19:38 buspirone [From BuSpar] AdvReac Rapid Verified 01/13/21 19:38 Heart Rate Review of Systems ROS Statement: Those systems with pertinent positive or pertinent negative responses have been documented in the HPI. ROS Other: All systems not noted in ROS Statement are negative. Past Medical History Past Medical History: Atrial Fibrillation, Asthma, Cancer, Heart Failure, COPD, CVA/TIA, Diabetes Mellitus, Deep Vein Thrombosis (DVT), GERD/Reflux, GI Bleed, Hyperlipidemia, Hypertension, Osteoarthritis (OA), Pneumonia, Pulmonary Embolus (PE), Renal Disease, Respiratory Disorder, Sleep Apnea/CPAP/BIPAP Additional Past Medical History / Comment(s): Pt recently admitted to [facility] on 08/05/19 with acute on chronic CHF/abnormal ECHO-see report/paroxysmal afib/bilateral pleural effusions with R sided thoracentesis. Other hx: Pt denies diabetes stating he has hypoglycemia/pt recently transfered to [facility] for endocrinology consultation-states he wasn't told anything new, states he has bilateral feet neuropathy, colitis, chronic diffuse abdominal pain, chronic generalized pain, fluid retention, bedbound, lower GI bleed, hiatal hernia, DVT in leg which traveled to his lung, DDD, scoliosis, ALEXIS without device, CKD stage III, pseudoseizures with past extensive work up thru [facility], basal cell skin cancer removed from face. History of Any Multi-Drug Resistant Organisms: C-DIFF, MRSA Date of last positivie culture/infection: mrsa 2018, c-diff 2019 MDRO Source:: sputum, stool Past Surgical History: Appendectomy, Bariatric Surgery, Heart Catheterization, Hernia Repair, Joint Replacement, Orthopedic Surgery Additional Past Surgical History / Comment(s): Gastric sleeve in 2014, L inguinal hernia repair, R elbow surgery x2, total R hip arthroplasty, L knee arthroscopy/ACL surgery, R ankle ORIF, EGD, colonoscopy, basal cell skin cancer from face, surgery for varicele. Past Anesthesia/Blood Transfusion Reactions: Previous Problems w/ Anesthesia Additional Past Anesthesia/Blood Transfusion Reaction / Comment(s): STATES HE WAS TOLD HE WAS A DIFFICULT INTUBATION WITH GASTRIC SLEEVE SURGERY, Past Psychological History: Anxiety, Bipolar, Depression, Panic Disorder, Schizoaffective Disorder Smoking Status: Former smoker Past Alcohol Use History: None Reported Past Drug Use History: None Reported - Past Family History Father Family Medical History: Cancer Additional Family Medical History / Comment(s): LUNG CA Mother Family Medical History: Coronary Artery Disease (CAD) Additional Family Medical History / Comment(s): Mother of an infection. General Exam - General Exam Comments Initial Comments: GENERAL: Patient is well-developed and well-nourished. Patient is nontoxic and well-hyd rated and is in no acute distress. ENT: Neck is soft and supple. No significant lymphadenopathy is noted. Oropharynx is clear. Moist mucous membranes. Neck has full range of motion without elicit ing any pain. EYES: The sclera were anicteric and conjunctiva were pink and moist. Extraocular m ovements were intact and pupils were equal round and reactive to light. Eyelids were unremarkable. PULMONARY: Unlabored respirations. Good breath sounds bilaterally. No audible rales rhonchi or wheezing was noted. CARDIOVASCULAR: There is a regular rate and rhythm without any murmurs gallops or rubs. ABDOMEN: Soft and nontender with normal bowel sounds. SKIN: Skin is clear with no lesions or rashes and otherwise unremarkable. NEUROLOGIC: Patient is alert and oriented x3. Cranial nerves II through XII are grossly intact. Patient has very little movement of his lower extremities but they're equal in strength.. Normal speech, volume and content. Symmetrical smile. MUSCULOSKELETAL: 2+ edema bilaterally. LYMPHATICS: No significant lymphadenopathy is noted PSYCHIATRIC: Normal psychiatric evaluation. Course Vital Signs 02/06/21 02/06/21 18:51 22:33 Temperature 99.1 F 98.8 F Pulse Rate 80 70 Respiratory 20 20 Rate Blood Pressure 140/79 122/81 O2 Sat by Pulse 98 100 Oximetry Medical Decision Making - Medical Decision Making Patient's potassium was low so I replaced with IV potassium and some by mouth K Dur. - Lab Data Result diagrams: 02/06/21 19:12 02/06/21 19:12 Lab Results 02/06/21 02/06/21 02/06/21 Range/Units 19:12 19:12 19:56 WBC 5.3 (3.8-10.6) k/uL RBC 4.56 (4.30-5.90) m/uL Hgb 12.8 L (13.0-17.5) gm/dL Hct 38.5 L (39.0-53.0) % MCV 84.3 (80.0-100.0) fL MCH 28.0 (25.0-35.0) pg MCHC 33.2 (31.0-37.0) g/dL RDW 14.0 (11.5-15.5) % Plt Count 269 (150-450) k/uL MPV 7.9 Neutrophils % 76 % Lymphocytes % 13 % Monocytes % 7 % Eosinophils % 2 % Basophils % 1 % Neutrophils # 4.0 (1.3-7.7) k/uL Lymphocytes # 0.7 L (1.0-4.8) k/uL Monocytes # 0.4 (0-1.0) k/uL Eosinophils # 0.1 (0-0.7) k/uL Basophils # 0.0 (0-0.2) k/uL Sodium 135 L (137-145) mmol/L Potassium 2.9 L (3.5-5.1) mmol/L Chloride 81 L (98-107) mmol/L Carbon Dioxide 41 H* (22-30) mmol/L Anion Gap 13 mmol/L BUN 24 H (9-20) mg/dL Creatinine 0.79 (0.66-1.25) mg/dL Est GFR (CKD-EPI)AfAm >90 (>60 ml/min/1.73 sqM) Est GFR (CKD-EPI)NonAf >90 (>60 ml/min/1.73 sqM) Glucose 149 H (74-99) mg/dL Calcium 9.1 (8.4-10.2) mg/dL Total Bilirubin 0.5 (0.2-1.3) mg/dL AST 35 (17-59) U/L ALT 39 (4-49) U/L Alkaline Phosphatase 139 H (38-126) U/L Total Protein 6.6 (6.3-8.2) g/dL Albumin 3.8 (3.5-5.0) g/dL Urine Color Light Yellow Urine Appearance Clear (Clear) Urine pH 7.0 (5.0-8.0) Ur Specific Leonore 1.008 (1.001-1.035) Urine Protein Negative (Negative) Urine Glucose (UA) Negative (Negative) Urine Ketones Negative (Negative) Urine Blood Trace H (Negative) Urine Nitrite Negative (Negative) Urine Bilirubin Negative (Negative) Urine Urobilinogen <2.0 (<2.0) mg/dL Ur Leukocyte Esterase Negative (Negative) Urine RBC 3 (0-5) /hpf Urine WBC <1 (0-5) /hpf Ur Squamous Epith Cells <1 (0-4) /hpf Hyaline Casts 1 (0-2) /lpf Urine Mucus Rare H (None) /hpf Disposition Clinical Impression: Hypokalemia Disposition: HOME SELF-CARE Condition: Good Instructions (If sedation given, give patient instructions): Hypokalemia (ED) Additional Instructions: Patient should double his morning and afternoon dose of his potassium and he should do this until he follows up with his physician on Wednesday. If he cannot follow up with his physician and he should stop his potassium increase and continue with his normal dosing. Is patient prescribed a controlled substance at d/c from ED?: No Referrals: Nonstaff,Physician [REFERRING] - 1-2 days Time of Disposition: 21:12
[2021-02-06 19:42] LABS: Anion Gap 13 mmol/L; Carbon Dioxide 41 mmol/L (22-30)
[2021-02-06 20:06] LABS: Appearance,Urine Clear (Clear); Bilirubin,Urine Negative (Negative); Blood,Urine Trace (Negative); Color,Urine Light Yellow; Glucose,Urine (UA) Negative (Negative); Hyaline Casts,Urine 1 /lpf (0-2); Ketones,Urine Negative (Negative); Leukocyte Esterase,Urine Negative (Negative); Mucus,Urine Rare /hpf; Nitrite,Urine Negative (Negative); Protein,Urine Negative (Negative); RBC,Urine 3 /hpf (0-5); Specific Gravity,Urine 1.008 (1.001-1.035); Squamous Epithelial Cell,Urine <1 /hpf (0-4); Urobilinogen,Urine <2.0 mg/dL (<2.0); WBC,Urine <1 /hpf (0-5)
[2021-02-06] MEDS ORDERED: POTASSIUM CHLORIDE 20 MEQ in WATER FOR INJECTION 1 100ML.BAG IVPB STA (20:13)
[2021-02-06] MEDS ORDERED: POTASSIUM CHLORIDE ER 20 MEQ TAB.ER PO STA (20:13)
--- NOTE | 2021-02-06 21:02 | XR ---
EXAMINATION TYPE: XR chest 2V DATE OF EXAM: 02/06/2021 COMPARISON: Chest x-ray January 13, 2021. CT October 30, 2020 HISTORY: History of morbid obesity with shortness of breath TECHNIQUE: Frontal and lateral views of the chest are obtained. FINDINGS: Exam suboptimal secondary to patient's large body habitus. There is persistent right basil ar opacity. Left lung remains clear. The cardiac silhouette size remains enlarged. The osseous str uctures are intact. IMPRESSION: Cardiomegaly with small to moderate right pleural effusion and associated right basilar atelectasis and/or infiltrate redemonstrated.
[2021-02-06 22:34] VITALS: BP 122/81; PULSE 70; TEMP 98.8
== END 2021-02-06 23:57 | disposition home or self-care (01) ==
LOC: EC 18:44
DX: E87.6 Hypokalemia (principal); E78.5 Hyperlipidemia, unspecified; E11.9 Type 2 diabetes mellitus without complications; E66.01 Morbid (severe) obesity due to excess calories; F32.9 Major depressive disorder, single episode, unspecified; F41.9 Anxiety disorder, unspecified; I11.0 Hypertensive heart disease with heart failure; I50.9 Heart failure, unspecified; I48.0 Paroxysmal atrial fibrillation; J44.9 Chronic obstructive pulmonary disease, unspecified; K21.9 Gastro-esophageal reflux disease without esophagitis; Z79.899 Other long term (current) drug therapy; Z86.711 Personal history of pulmonary embolism; Z86.718 Personal history of other venous thrombosis and embolism; Z87.891 Personal history of nicotine dependence; Z86.73 Personal history of transient ischemic attack (TIA), and cerebral infarction without residual deficits
CPT/HCPCS: 36415; 80053; 85025; 81001; 71046; 99284; 96365; 96366; J3480

== ENCOUNTER 2021-03-27 06:11 | Emergency (ER) | payer MEDICARE, BC, OTHER ==
[2021-03-27 06:21] VITALS: RESP 18; TEMP 97.9
[2021-03-27] MEDS ORDERED: MECLIZINE 12.5 MG TAB PO STA (06:34)
[2021-03-27] MEDS ORDERED: SODIUM CHLORIDE 0.9% 500 ML 500 ML IV STA (06:34)
[2021-03-27 06:52] LABS: Basophils % (A) 1 %; Eosinophils # (A) 0.2 k/uL (0-0.7); Eosinophils % (A) 4 %; HCT 37.5 % (39.0-53.0); HGB 12.3 gm/dL (13.0-17.5); Lymphocytes # (A) 0.7 k/uL (1.0-4.8); Lymphocytes % (A) 15 %; MCH 27.1 pg (25.0-35.0); MCHC 32.8 g/dL (31.0-37.0); MCV 82.7 fL (80.0-100.0); Mean Platelet Volume 6.9; Monocytes # (A) 0.4 k/uL (0-1.0); Monocytes % (A) 7 %; Neutrophils # (A) 3.6 k/uL (1.3-7.7); Neutrophils % (A) 72 %; Platelet Count 255 k/uL (150-450); RBC 4.53 m/uL (4.30-5.90); RDW 14.6 % (11.5-15.5)
[2021-03-27 07:05] LABS: ALT 13 U/L (4-49); AST 21 U/L (17-59); African American GFR (CKD) >90 (>60 ml/min/1.73 sqM); Albumin 3.7 g/dL (3.5-5.0); Alkaline Phosphatase 110 U/L (38-126); Blood Urea Nitrogen 23 mg/dL (9-20); Calcium 9.1 mg/dL (8.4-10.2); Chloride 83 mmol/L (98-107); Glucose 101 mg/dL (74-99); Non-African American GFR(CKD) >90 (>60 ml/min/1.73 sqM); Sodium 137 mmol/L (137-145); Total Bilirubin 0.5 mg/dL (0.2-1.3); Total Protein 6.7 g/dL (6.3-8.2)
[2021-03-27 07:11] LABS: Anion Gap 6 mmol/L
--- NOTE | 2021-03-27 07:12 | ED ---
General Adult HPI - General Chief complaint: Weakness Stated complaint: Weakness Time Seen by Provider: 03/27/21 06:15 Source: patient, EMS, RN notes reviewed Mode of arrival: EMS Limitations: no limitations - History of Present Illness Initial comments: 60-year-old male presents emergency Department chief complaint of dizziness. Patient states he felt lightheaded when he woke up. Patient states that has improved. He has no complaint of headache or any focal weakness no confusion. Patient states that his been getting worked up for possible Parkinson's disease. Patient is nonambulatory states that has not walked in over 2 years. Patient was at home with his son and daughter. Patient denies any fevers or chills. Patient denies any chest pain shortness breath - Related Data Home Medications Medication Instructions Recorded Confirmed Rivaroxaban [Xarelto] 20 mg PO DAILY 07/14/19 03/27/21 dilTIAZem HCL [Diltiazem HCl] 30 mg PO TID 07/15/19 03/27/21 Atorvastatin [Lipitor] 10 mg PO HS 08/03/19 03/27/21 Lidocaine 5% Patch [Lidoderm 5% 1 patch TOPICAL DAILY 08/03/19 03/27/21 Patch] Furosemide [Lasix] 40 mg PO BID@0800,1200 10/31/19 03/27/21 Buprenorphine HCl [Belbuca] 1 film SL BID 10/29/20 03/27/21 Ipratropium-Albuterol Nebulize 3 ml INHALATION RT-QID 10/29/20 03/27/21 [Duoneb 0.5 mg-3 mg/3 ml Soln] OLANZapine 20 mg PO HS 10/29/20 03/27/21 Albuterol Sulfate [Proair Hfa] 1 - 2 puff INHALATION RT-Q6H PRN 11/27/20 03/27/21 Gabapentin [Neurontin] 800 mg PO Q8H 11/27/20 03/27/21 Lactulose [Constulose] 20 gm PO TID PRN 11/27/20 03/27/21 metOLazone [Zaroxolyn] 2.5 mg PO DAILY 01/13/21 03/27/21 HYDROcodone/APAP 7.5-325MG [[place] 1 tab PO DAILY PRN 03/27/21 03/27/21 7.5-325] Nystatin/Triamcin 1 applicate TOPICAL BID 03/27/21 03/27/21 [Nystatin-Triamcinolone Cream] Omeprazole 20 mg PO DAILY 03/27/21 03/27/21 Potassium Chloride ER [K-Dur 20] 20 meq PO BID@1200,2100 03/27/21 03/27/21 Potassium Chloride ER [K-Dur 20] 40 meq PO DAILY 03/27/21 03/27/21 Tiotropium 18 Mcg/Puff [Spiriva] 1 puff INHALATION RT-DAILY 03/27/21 03/27/21 Allergies Allergy/AdvReac Type Severity Reaction Status Date / Time codeine Allergy Severe Swelling Verified 03/27/21 07:43 OF THROAT WITH COUGH SYRUP chlorpheniramine Allergy Unknown Verified 03/27/21 07:43 febuxostat [From Uloric] Allergy Unknown Verified 03/27/21 07:43 phenylephrine Allergy Unknown Verified 03/27/21 07:43 piperacillin sodium Allergy Unknown Verified 03/27/21 07:43 [From Zosyn] sulfamethoxazole Allergy Unknown Verified 03/27/21 07:43 [From Bactrim] tazobactam sodium Allergy Unknown Verified 03/27/21 07:43 [From Zosyn] trimethoprim [From Bactrim] Allergy Unknown Verified 03/27/21 07:43 buspirone [From BuSpar] AdvReac Rapid Verified 03/27/21 07:43 Heart Rate Review of Systems ROS Statement: Those systems with pertinent positive or pertinent negative responses have been documented in the HPI. ROS Other: All systems not noted in ROS Statement are negative. Past Medical History Past Medical History: Atrial Fibrillation, Asthma, Cancer, Heart Failure, COPD, CVA/TIA, Diabetes Mellitus, Deep Vein Thrombosis (DVT), GERD/Reflux, GI Bleed, Hyperlipidemia, Hypertension, Osteoarthritis (OA), Pneumonia, Pulmonary Embolus (PE), Renal Disease, Respiratory Disorder, Sleep Apnea/CPAP/BIPAP Additional Past Medical History / Comment(s): Pt recently admitted to [facility] on 08/05/19 with acute on chronic CHF/abnormal ECHO-see report/paroxysmal afib/bilateral pleural effusions with R sided thoracentesis. Other hx: Pt denies diabetes stating he has hypoglycemia/pt recently transfered to [facility] for endocrinology consultation-states he wasn't told anything new, states he has bilateral feet neuropathy, colitis, chronic diffuse abdominal pain, chronic generalized pain, fluid retention, bedbound, lower GI bleed, hiatal hernia, DVT in leg which traveled to his lung, DDD, scoliosis, ALEXIS without device, CKD stage III, pseudoseizures with past extensive work up thru [facility], basal cell skin cancer removed from face. History of Any Multi-Drug Resistant Organisms: C-DIFF, MRSA Date of last positivie culture/infection: mrsa 2018, c-diff 2019 MDRO Source:: sputum, stool Past Surgical History: Appendectomy, Bariatric Surgery, Heart Catheterization, Hernia Repair, Joint Replacement, Orthopedic Surgery Additional Past Surgical History / Comment(s): Gastric sleeve in 2014, L inguinal hernia repair, R elbow surgery x2, total R hip arthroplasty, L knee arthroscopy/ACL surgery, R ankle ORIF, EGD, colonoscopy, basal cell skin cancer from face, surgery for varicele. Past Anesthesia/Blood Transfusion Reactions: Previous Problems w/ Anesthesia Additional Past Anesthesia/Blood Transfusion Reaction / Comment(s): STATES HE WAS TOLD HE WAS A DIFFICULT INTUBATION WITH GASTRIC SLEEVE SURGERY, Past Psychological History: Anxiety, Bipolar, Depression, Panic Disorder, Schizoaffective Disorder Smoking Status: Former smoker Past Alcohol Use History: None Reported Past Drug Use History: None Reported - Past Family History Father Family Medical History: Cancer Additional Family Medical History / Comment(s): LUNG CA Mother Family Medical History: Coronary Artery Disease (CAD) Additional Family Medical History / Comment(s): Mother of an infection. General Exam Limitations: no limitations General appearance: alert, in no apparent distress Head exam: Present: atraumatic, normocephalic, normal inspection Eye exam: Present: normal appearance, PERRL, EOMI. Absent: scleral icterus, conjunctival injection, periorbital swelling Neck exam: Present: normal inspection, full ROM. Absent: tenderness, meningismus, lymphadenopathy Respiratory exam: Present: normal lung sounds bilaterally. Absent: respiratory distress, wheezes, rales, rhonchi, stridor Cardiovascular Exam: Present: regular rate, normal rhythm, normal heart sounds. Absent: systolic murmur, diastolic murmur, rubs, gallop, clicks Extremities exam: Present: other (Upper extremity strength equal bilaterally unable to assess lower extremity strength) Neurological exam: Present: alert, oriented X3, CN II-XII intact Skin exam: Present: warm, dry, intact, normal color. Absent: rash Course Vital Signs 03/27/21 06:16 Temperature 97.9 F Pulse Rate 71 Respiratory 18 Rate Blood Pressure 135/81 O2 Sat by Pulse 90 L Oximetry EKG Findings - EKG Comments: EKG Findings:: EKG performed at 6:33 normal sinus rhythm rate of 65 MI 182 QRS 1:30 QT/QTc 440/457 Medical Decision Making - Medical Decision Making 60-year-old presented for lightheadedness, dizziness. Patient has no symptoms currently. Patient's labs were reviewed patient has elevated CO2 which is chronic for the patient. This is unchanged from prior. Patient CT is unremarkable patient did have some mild hypokalemia which was replaced with 40 mEq. Patient states he feels stable for discharge states she's had this happen multiple times. - Lab Data Result diagrams: 03/27/21 06:43 03/27/21 06:43 Lab Results 03/27/21 03/27/21 03/27/21 Range/Units 06:43 06:43 06:43 WBC 5.0 (3.8-10.6) k/uL RBC 4.53 (4.30-5.90) m/uL Hgb 12.3 L (13.0-17.5) gm/dL Hct 37.5 L (39.0-53.0) % MCV 82.7 (80.0-100.0) fL MCH 27.1 (25.0-35.0) pg MCHC 32.8 (31.0-37.0) g/dL RDW 14.6 (11.5-15.5) % Plt Count 255 (150-450) k/uL MPV 6.9 Neutrophils % 72 % Lymphocytes % 15 % Monocytes % 7 % Eosinophils % 4 % Basophils % 1 % Neutrophils # 3.6 (1.3-7.7) k/uL Lymphocytes # 0.7 L (1.0-4.8) k/uL Monocytes # 0.4 (0-1.0) k/uL Eosinophils # 0.2 (0-0.7) k/uL Basophils # 0.0 (0-0.2) k/uL Sodium 137 (137-145) mmol/L Potassium 3.0 L (3.5-5.1) mmol/L Chloride 83 L (98-107) mmol/L Carbon Dioxide 48 H* (22-30) mmol/L Anion Gap 6 mmol/L BUN 23 H (9-20) mg/dL Creatinine 0.90 (0.66-1.25) mg/dL Est GFR (CKD-EPI)AfAm >90 (>60 ml/min/1.73 sqM) Est GFR (CKD-EPI)NonAf >90 (>60 ml/min/1.73 sqM) Glucose 101 H (74-99) mg/dL Plasma Lactic Acid Benjie 0.7 (0.7-2.0) mmol/L Calcium 9.1 (8.4-10.2) mg/dL Total Bilirubin 0.5 (0.2-1.3) mg/dL AST 21 (17-59) U/L ALT 13 (4-49) U/L Alkaline Phosphatase 110 (38-126) U/L Troponin I (0.000-0.034) ng/mL Total Protein 6.7 (6.3-8.2) g/dL Albumin 3.7 (3.5-5.0) g/dL 03/27/21 Range/Units 06:43 WBC (3.8-10.6) k/uL RBC (4.30-5.90) m/uL Hgb (13.0-17.5) gm/dL Hct (39.0-53.0) % MCV (80.0-100.0) fL MCH (25.0-35.0) pg MCHC (31.0-37.0) g/dL RDW (11.5-15.5) % Plt Count (150-450) k/uL MPV Neutrophils % % Lymphocytes % % Monocytes % % Eosinophils % % Basophils % % Neutrophils # (1.3-7.7) k/uL Lymphocytes # (1.0-4.8) k/uL Monocytes # (0-1.0) k/uL Eosinophils # (0-0.7) k/uL Basophils # (0-0.2) k/uL Sodium (137-145) mmol/L Potassium (3.5-5.1) mmol/L Chloride (98-107) mmol/L Carbon Dioxide (22-30) mmol/L Anion Gap mmol/L BUN (9-20) mg/dL Creatinine (0.66-1.25) mg/dL Est GFR (CKD-EPI)AfAm (>60 ml/min/1.73 sqM) Est GFR (CKD-EPI)NonAf (>60 ml/min/1.73 sqM) Glucose (74-99) mg/dL Plasma Lactic Acid Benjie (0.7-2.0) mmol/L Calcium (8.4-10.2) mg/dL Total Bilirubin (0.2-1.3) mg/dL AST (17-59) U/L ALT (4-49) U/L Alkaline Phosphatase (38-126) U/L Troponin I <0.012 (0.000-0.034) ng/mL Total Protein (6.3-8.2) g/dL Albumin (3.5-5.0) g/dL Disposition Clinical Impression: Hypokalemia, Lightheaded Disposition: HOME SELF-CARE Condition: Stable Instructions (If sedation given, give patient instructions): Lightheadedness (ED) Additional Instructions: Please return to the Emergency Department if symptoms worsen or any other concerns. Is patient prescribed a controlled substance at d/c from ED?: No Referrals: None,Stated [Primary Care Provider] - 1-2 days Time of Disposition: 08:10
[2021-03-27 07:15] LABS: Carbon Dioxide 48 mmol/L (22-30)
[2021-03-27] MEDS ORDERED: POTASSIUM CHLORIDE ER 20 MEQ TAB.ER PO STA (07:24)
--- NOTE | 2021-03-27 07:54 | CT ---
EXAMINATION TYPE: CT brain wo con DATE OF EXAM: 03/27/2021 HISTORY: Dizziness, weakness. History of CVA/TIA. CT DLP: 1154.4 mGycm. Automated Exposure Control for Dose Reduction was Utilized. TECHNIQUE: CT scan of the head is performed without contrast. COMPARISON: None. FINDINGS: There is no acute intracranial hemorrhage or midline shift identified. There is mild diff use ventricular and sulcal prominence consistent with diffuse age-related cerebral atrophy. Dillard whi te matter differentiation is maintained. Slightly low-lying cerebellar tonsils for reference sagittal image 25 but not greater than 5 mm inferior displacement to foramen magnum. There is 10 mm mucus ret ention cyst or polyp in the right sphenoid sinus. The globes are intact and the visualized sinuses ot herwise are clear. IMPRESSION: No acute intracranial hemorrhage or midline shift. There is mild diffuse age-related ce rebral atrophy noted.
[2021-03-27 08:22] VITALS: BP 110/86; PULSE 70
== END 2021-03-27 09:00 | disposition home or self-care (01) ==
LOC: EC 06:11
DX: E87.6 Hypokalemia (principal); I48.91 Unspecified atrial fibrillation; J44.9 Chronic obstructive pulmonary disease, unspecified; I13.0 Hypertensive heart and chronic kidney disease with heart failure and stage 1 through stage 4 chronic kidney disease, or unspecified chronic kidney disease; N18.30 Chronic kidney disease, stage 3 unspecified; I50.9 Heart failure, unspecified; K21.9 Gastro-esophageal reflux disease without esophagitis; E78.5 Hyperlipidemia, unspecified; E11.22 Type 2 diabetes mellitus with diabetic chronic kidney disease; G47.33 Obstructive sleep apnea (adult) (pediatric); M19.90 Unspecified osteoarthritis, unspecified site; F32.9 Major depressive disorder, single episode, unspecified; F25.9 Schizoaffective disorder, unspecified; Z87.01 Personal history of pneumonia (recurrent); Z86.711 Personal history of pulmonary embolism; Z86.73 Personal history of transient ischemic attack (TIA), and cerebral infarction without residual deficits; Z99.81 Dependence on supplemental oxygen; Z90.49 Acquired absence of other specified parts of digestive tract; Z95.5 Presence of coronary angioplasty implant and graft; Z86.718 Personal history of other venous thrombosis and embolism; Z87.891 Personal history of nicotine dependence
CPT/HCPCS: 36415; 70450; 80053; 83605; 84484; 85025; 93005; 96360; 99285

== ENCOUNTER → 2021-06-09 | Outpatient (CLI) | payer MEDICARE, BC, OTHER ==
--- NOTE | 2021-06-09 13:32 | XR ---
EXAMINATION TYPE: XR chest 2V DATE OF EXAM: 06/09/2021 COMPARISON: 02/06/2021 HISTORY: Shortness of breath TECHNIQUE: Frontal and lateral views of the chest are obtained. FINDINGS: Scattered senescent parenchymal changes noted. Hyperinflation compatible with COPD. Pulmonary venous congestion with right basilar effusion, atelectasis and/or infiltrate. The heart is mildly enlarged. Mediastinal structures are stable and grossly unremarkable. No evidence for hilar prominence. Degenerative changes dorsal spine. IMPRESSION: 1. Pulmonary venous congestion with right basilar effusion, atelectasis and/or infiltrate. The heart is mildly enlarged.
== END | disposition home or self-care (01) ==
LOC: RADXRMAIN 13:04
PROVIDERS: ATTEND Internal Medicine Critical Care Medicine
DX: R09.89 Other specified symptoms and signs involving the circulatory and respiratory systems (principal); J90 Pleural effusion, not elsewhere classified
CPT/HCPCS: 71046

== ENCOUNTER 2021-09-05 01:20 | Inpatient (IN) | payer OTHER, MEDICARE, BC ==
[2021-09-05] MEDS ORDERED: SODIUM CHLORIDE 0.9% 500 ML 500 ML IV STA (02:00)
[2021-09-05] MEDS ORDERED: PANTOPRAZOLE 40 MG/10 ML VIAL IVP STA (02:00)
[2021-09-05] MEDS ORDERED: MORPHINE SULFATE 4 MG/ML SYRINGE IV STA (02:00)
[2021-09-05] MEDS ORDERED: ONDANSETRON 4 MG/2 ML VIAL IVP STA (02:00)
[2021-09-05] MEDS ORDERED: SODIUM CHLORIDE 0.9% 1,000 ML IV STA (02:00)
[2021-09-05] MEDS ORDERED: KETOROLAC 15 MG/ML 1 ML VIAL IVP STA (02:00)
--- NOTE | 2021-09-05 02:07 | ED ---
Abdominal Pain HPI - General Chief Complaint: Chest Pain Stated Complaint: Abd Pain, Chest Pain Time Seen by Provider: 09/05/21 01:30 Source: patient, EMS, RN notes reviewed, old records reviewed Mode of arrival: EMS Limitations: no limitations - History of Present Illness Initial Comments: This is a 60-year-old male to the emergency department today. Patient presents today for evaluation regards to severe abdominal pain epigastric abdominal pain and shortness of breath he takes a deep breath.. Patient symptoms started in the afternoon no worsening tonight. Significant right upper quadrant abdominal pain MD Complaint: abdominal pain -: hour(s) Location: diffuse, RUQ, epigastric Radiation: epigastric Migration to: RUQ Severity: moderate Severity scale (1-10): 5 Quality: stabbing Improves With: nothing Worsens With: nothing Associated Symptoms: nausea, vomiting Treatments Prior to Arrival: other (none) - Related Data Home Medications Medication Instructions Recorded Confirmed Rivaroxaban [Xarelto] 20 mg PO DAILY 07/14/19 03/27/21 dilTIAZem HCL [Diltiazem HCl] 30 mg PO TID 07/15/19 03/27/21 Atorvastatin [Lipitor] 10 mg PO HS 08/03/19 03/27/21 Lidocaine 5% Patch [Lidoderm 5% 1 patch TOPICAL DAILY 08/03/19 03/27/21 Patch] Furosemide [Lasix] 40 mg PO BID@0800,1200 10/31/19 03/27/21 Buprenorphine HCl [Belbuca] 1 film SL BID 10/29/20 03/27/21 Ipratropium-Albuterol Nebulize 3 ml INHALATION RT-QID 10/29/20 03/27/21 [Duoneb 0.5 mg-3 mg/3 ml Soln] OLANZapine 20 mg PO HS 10/29/20 03/27/21 Albuterol Sulfate [Proair Hfa] 1 - 2 puff INHALATION RT-Q6H PRN 11/27/20 03/27/21 Gabapentin [Neurontin] 800 mg PO Q8H 11/27/20 03/27/21 Lactulose [Constulose] 20 gm PO TID PRN 11/27/20 03/27/21 metOLazone [Zaroxolyn] 2.5 mg PO DAILY 01/13/21 03/27/21 HYDROcodone/APAP 7.5-325MG [[place] 1 tab PO DAILY PRN 03/27/21 03/27/21 7.5-325] Nystatin/Triamcin 1 applicate TOPICAL BID 03/27/21 03/27/21 [Nystatin-Triamcinolone Cream] Omeprazole 20 mg PO DAILY 03/27/21 03/27/21 Potassium Chloride ER [K-Dur 20] 20 meq PO BID@1200,2100 03/27/21 03/27/21 Potassium Chloride ER [K-Dur 20] 40 meq PO DAILY 03/27/21 03/27/21 Tiotropium 18 Mcg/Puff [Spiriva] 1 puff INHALATION RT-DAILY 03/27/21 03/27/21 Allergies Allergy/AdvReac Type Severity Reaction Status Date / Time codeine Allergy Severe Swelling Verified 09/05/21 01:48 OF THROAT WITH COUGH SYRUP chlorpheniramine Allergy Unknown Verified 09/05/21 01:48 febuxostat [From Uloric] Allergy Unknown Verified 09/05/21 01:48 phenylephrine Allergy Unknown Verified 09/05/21 01:48 piperacillin sodium Allergy Unknown Verified 09/05/21 01:48 [From Zosyn] sulfamethoxazole Allergy Unknown Verified 09/05/21 01:48 [From Bactrim] tazobactam sodium Allergy Unknown Verified 09/05/21 01:48 [From Zosyn] trimethoprim [From Bactrim] Allergy Unknown Verified 09/05/21 01:48 buspirone [From BuSpar] AdvReac Rapid Verified 09/05/21 01:48 Heart Rate Review of Systems ROS Statement: Those systems with pertinent positive or pertinent negative responses have been documented in the HPI. ROS Other: All systems not noted in ROS Statement are negative. Past Medical History Past Medical History: Atrial Fibrillation, Asthma, Cancer, Heart Failure, COPD, CVA/TIA, Diabetes Mellitus, Deep Vein Thrombosis (DVT), GERD/Reflux, GI Bleed, Hyperlipidemia, Hypertension, Osteoarthritis (OA), Pneumonia, Pulmonary Embolus (PE), Renal Disease, Respiratory Disorder, Sleep Apnea/CPAP/BIPAP Additional Past Medical History / Comment(s): Pt recently admitted to [facility] on 08/05/19 with acute on chronic CHF/abnormal ECHO-see report/paroxysmal afib/bilateral pleural effusions with R sided thoracentesis. Other hx: Pt denies diabetes stating he has hypoglycemia/pt recently transfered to [facility] for endocrinology consultation-states he wasn't told anything new, states he has bilateral feet neuropathy, colitis, chronic diffuse abdominal pain, chronic generalized pain, fluid retention, bedbound, lower GI bleed, hiatal hernia, DVT in leg which traveled to his lung, DDD, scoliosis, ALEXIS without device, CKD stage III, pseudoseizures with past extensive work up thru [facility], basal cell skin cancer removed from face. History of Any Multi-Drug Resistant Organisms: C-DIFF, MRSA Date of last positivie culture/infection: mrsa 2018, c-diff 2019 MDRO Source:: sputum, stool Past Surgical History: Appendectomy, Bariatric Surgery, Heart Catheterization, Hernia Repair, Joint Replacement, Orthopedic Surgery Additional Past Surgical History / Comment(s): Gastric sleeve in 2013, L inguinal hernia repair, R elbow surgery x2, total R hip arthroplasty, L knee arthroscopy/ACL surgery, R ankle ORIF, EGD, colonoscopy, basal cell skin cancer from face, surgery for varicele. Past Anesthesia/Blood Transfusion Reactions: Previous Problems w/ Anesthesia Additional Past Anesthesia/Blood Transfusion Reaction / Comment(s): STATES HE WAS TOLD HE WAS A DIFFICULT INTUBATION WITH GASTRIC SLEEVE SURGERY, Past Psychological History: Anxiety, Bipolar, Depression, Panic Disorder, Schizoaffective Disorder Smoking Status: Former smoker Past Alcohol Use History: None Reported Past Drug Use History: None Reported - Past Family History Father Family Medical History: Cancer Additional Family Medical History / Comment(s): LUNG CA Mother Family Medical History: Coronary Artery Disease (CAD) Additional Family Medical History / Comment(s): Mother of an infection. General Exam Limitations: no limitations General appearance: alert, in no apparent distress Head exam: Present: atraumatic, normocephalic, normal inspection Eye exam: Present: normal appearance, PERRL, EOMI. Absent: scleral icterus, conjunctival injection, periorbital swelling ENT exam: Present: normal exam, mucous membranes moist Neck exam: Present: normal inspection. Absent: tenderness, meningismus, l ymphadenopathy Respiratory exam: Present: normal lung sounds bilaterally. Absent: respiratory distress, wheezes, rales, rhonchi, stridor Cardiovascular Exam: Present: regular rate, normal rhythm, normal heart sounds. Absent: systolic murmur, diastolic murmur, rubs, gallop, clicks GI/Abdominal exam: Present: soft, normal bowel sounds. Absent: distended, tenderness, guarding, rebound, rigid Extremities exam: Present: normal inspection, full ROM, normal capillary refill. Absent: tenderness, pedal edema, joint swelling, calf tenderness Back exam: Present: normal inspection Neurological exam: Present: alert, oriented X3, CN II-XII intact Psychiatric exam: Present: normal affect, normal mood Skin exam: Present: warm, dry, intact, normal color. Absent: rash Course Vital Signs 09/05/21 01:45 Temperature 98.5 F Pulse Rate 76 Respiratory 16 Rate Blood Pressure 148/78 O2 Sat by Pulse 98 Oximetry - Reevaluation(s) Reevaluation #1: 09/05/21 02:16 Medical record is reviewed Reevaluation #2: 09/05/21 04:02 Patient has improved pain control currently Medical Decision Making - Medical Decision Making 60 DF for evaluation of severe right upper quadrant bowel pain appears to be biliary colic with elevated gallbladder enzymes, CT seems to be suspicious for similar finding. Will obtain ultrasound the morning and have surgical consultation - Lab Data Result diagrams: 09/05/21 02:07 09/05/21 02:07 Lab Results 09/05/21 09/05/21 Range/Units 02:07 02:07 WBC 6.3 (3.8-10.6) k/uL RBC 4.07 L (4.30-5.90) m/uL Hgb 11.2 L (13.0-17.5) gm/dL Hct 34.9 L (39.0-53.0) % MCV 85.8 (80.0-100.0) fL MCH 27.5 (25.0-35.0) pg MCHC 32.1 (31.0-37.0) g/dL RDW 15.5 (11.5-15.5) % Plt Count 266 (150-450) k/uL MPV 6.9 Neutrophils % 77 % Lymphocytes % 11 % Monocytes % 7 % Eosinophils % 2 % Basophils % 1 % Neutrophils # 4.8 (1.3-7.7) k/uL Lymphocytes # 0.7 L (1.0-4.8) k/uL Monocytes # 0.4 (0-1.0) k/uL Eosinophils # 0.1 (0-0.7) k/uL Basophils # 0.0 (0-0.2) k/uL Sodium 132 L (137-145) mmol/L Potassium 5.0 (3.5-5.1) mmol/L Chloride 89 L (98-107) mmol/L Carbon Dioxide 39 H (22-30) mmol/L Anion Gap 4 mmol/L BUN 28 H (9-20) mg/dL Creatinine 0.78 (0.66-1.25) mg/dL Est GFR (CKD-EPI)AfAm >90 (>60 ml/min/1.73 sqM) Est GFR (CKD-EPI)NonAf >90 (>60 ml/min/1.73 sqM) Glucose 128 H (74-99) mg/dL Calcium 8.8 (8.4-10.2) mg/dL Phosphorus 4.1 (2.5-4.5) mg/dL Magnesium 2.0 (1.6-2.3) mg/dL Total Bilirubin 0.8 (0.2-1.3) mg/dL AST 240 H (17-59) U/L ALT 172 H (4-49) U/L Alkaline Phosphatase 259 H (38-126) U/L Total Protein 6.5 (6.3-8.2) g/dL Albumin 3.5 (3.5-5.0) g/dL Amylase 38 (30-110) U/L Lipase 58 (23-300) U/L - EKG Data -: EKG Interpreted by Me (EKG is sinus rhythm 75 CO 162 QRS 124 QTc 455) - Radiology Data Radiology results: report reviewed (CT abdomen and pelvis is positive for likely cholecystitis and dilated bile duct), image reviewed Disposition Clinical Impression: Obesity, Biliary colic, Chest pain, Abdominal pain Disposition: ADMITTED IP TO THIS HOSP Condition: Fair Is patient prescribed a controlled substance at d/c from ED?: No Referrals: [facility],Clinic [Primary Care Provider] - 1-2 days
[2021-09-05 02:18] LABS: Basophils % (A) 1 %; Eosinophils # (A) 0.1 k/uL (0-0.7); Eosinophils % (A) 2 %; HCT 34.9 % (39.0-53.0); HGB 11.2 gm/dL (13.0-17.5); Lymphocytes # (A) 0.7 k/uL (1.0-4.8); Lymphocytes % (A) 11 %; MCH 27.5 pg (25.0-35.0); MCHC 32.1 g/dL (31.0-37.0); MCV 85.8 fL (80.0-100.0); Mean Platelet Volume 6.9; Monocytes # (A) 0.4 k/uL (0-1.0); Monocytes % (A) 7 %; Neutrophils # (A) 4.8 k/uL (1.3-7.7); Neutrophils % (A) 77 %; Platelet Count 266 k/uL (150-450); RBC 4.07 m/uL (4.30-5.90); RDW 15.5 % (11.5-15.5); WBC 6.3 k/uL (3.8-10.6)
[2021-09-05 02:34] LABS: ALT 172 U/L (4-49); AST 240 U/L (17-59); African American GFR (CKD) >90 (>60 ml/min/1.73 sqM); Albumin 3.5 g/dL (3.5-5.0); Alkaline Phosphatase 259 U/L (38-126); Amylase 38 U/L (30-110); Anion Gap 4 mmol/L; Blood Urea Nitrogen 28 mg/dL (9-20); Calcium 8.8 mg/dL (8.4-10.2); Carbon Dioxide 39 mmol/L (22-30); Chloride 89 mmol/L (98-107); Glucose 128 mg/dL (74-99); Lipase 58 U/L (23-300); Non-African American GFR(CKD) >90 (>60 ml/min/1.73 sqM); Phosphorus 4.1 mg/dL (2.5-4.5); Sodium 132 mmol/L (137-145); Total Bilirubin 0.8 mg/dL (0.2-1.3); Total Protein 6.5 g/dL (6.3-8.2)
--- NOTE | 2021-09-05 03:51 | CT ---
EXAMINATION TYPE: CT abdomen pelvis w con DATE OF EXAM: 09/05/2021 COMPARISON: HISTORY: pain. best images possible given patient body habitus. CT DLP: 5606.2 mGycm Automated exposure control for dose reduction was used. CONTRAST: Performed with IV Contrast, patient injected with 100 mL of Isovue 300. Images obtained from the diaphragm to the floor the pelvis with IV contrast. FINDINGS: There is right pleural effusion. There is some consolidation and atelectasis right lower lobe. Heart is deviated somewhat to the right side. There is some elevation of the right diaphragm. Gallbladder appears intact. Spleen is intact. I see no discrete liver mass. There is 13 mm common mina e duct. There is mild ectasia of the intrahepatic bile ducts. There is no evidence of pancreatic mass . There is no adrenal mass. Pancreatic duct is not dilated. There is no adrenal mass. Kidneys show satisfactory contrast opacification. There is no hydronephrosi s. Ureters are not dilated. There is no retroperitoneal adenopathy. Bladder distends smoothly. There is no inguinal hernia. There is right hip prosthesis. There is no free fluid in the pelvis. There is no mesenteric edema. There is no ascites or free air. There is no sign of a bowel obstructio n. There is metal artifact from right hip prosthesis. The lumbar vertebra have normal alignment. Ther e is no compression fracture. Bony pelvis is intact. There is moderate arthritic change in the left h ip joint with lateral subluxation of the femoral head. IMPRESSION: : There is some consolidation and atelectasis right lower lobe with right pleural effusion. Mild ectasi a of the biliary tree. Bile ducts not significantly different than old exam. This could relate to gal lbladder dysfunction. Abnormality in the right lower lobe not changed significantly compared to old e xam. No obstructing lesion seen of the common bile duct. Deformity of the left hip joint without change.
[2021-09-05] MEDS ORDERED: NALOXONE 0.4 MG/ML 1 ML VIAL IV PRN (03:57)
[2021-09-05] MEDS ORDERED: ONDANSETRON 4 MG/2 ML VIAL IVP PRN (03:57)
[2021-09-05] MEDS: SODIUM CHLORIDE 0.9% 1,000 ML IV SCH ×2 (04:16→13:47)
[2021-09-05] MEDS: IPRATROPIUM-ALBUTEROL 3 ML NEB INHALATION PRN (07:12)
[2021-09-05] MEDS: PANTOPRAZOLE 40 MG/10 ML VIAL IV SCH (08:42)
--- NOTE | 2021-09-05 08:55 | US ---
EXAMINATION TYPE: US gallbladder DATE OF EXAM: 09/05/2021 COMPARISON: CT 09/05/21 CLINICAL HISTORY: 60-year-old male RUQ pain TECHNIQUE: Multiple sonographic images of the right upper quadrant are obtained. Arteries: EXAM MEASUREMENTS: Liver Length: 19.1 cm Gallbladder Wall: 0.2 cm CBD: 0.4 cm Right Kidney: unable to adequately visualize in order to measure Astronomy Teacher notes: patient is 450 pounds and unable to roll, limited exam. Pancreas: Obscured by bowel gas Liver: limited visualization to intercostal window. Appears hypoechoic but this is probably technica l. Only small portions are seen. Gallbladder: only imaged in supine position, patient unable to roll. No stones seen. No steff hydrop ic change of surrounding fluid. Evidence for sonographic Shrestha's sign: No CBD: wnl Right Kidney: not well seen IMPRESSION: 1. Severely limited exam. 2. No obvious gallstones or hydropic gallbladder change. 3. The bile duct was normal caliber. 4. Very limited assessment of the liver. It appears hypoechoic but this may be technical artifact. Co rrelate to exclude hepatitis.
[2021-09-05] MEDS ORDERED: ACETAMINOPHEN IV (For NPO) 1,000 MG in EMPTY BAG 1 BAG IVPB STA (10:27)
--- NOTE | 2021-09-05 11:17 | P.GSCN ---
History of Present Illness Consult date: 09/05/21 Reason for Consult: Epigastric and right upper quadrant pain History of present illness: This is a 60-year-old male well-known to myself. Patient has complaints of right quadrant and epigastric pain. A computed tomography scan suggestive of p ossible biliary dysfunction. He has multiple medical problems. Past Medical History Past Medical History: Atrial Fibrillation, Asthma, Cancer, Heart Failure, COPD, CVA/TIA, Diabetes Mellitus, Deep Vein Thrombosis (DVT), GERD/Reflux, GI Bleed, Hyperlipidemia, Hypertension, Osteoarthritis (OA), Pneumonia, Pulmonary Embolus (PE), Renal Disease, Respiratory Disorder, Sleep Apnea/CPAP/BIPAP Additional Past Medical History / Comment(s): Pt recently admitted to [facility] on 08/05/19 with acute on chronic CHF/abnormal ECHO-see report/paroxysmal afib/bilateral pleural effusions with R sided thoracentesis. Other hx: Pt denies diabetes stating he has hypoglycemia/pt recently transfered to [facility] for endocrinology consultation-states he wasn't told anything new, states he has bilateral feet neuropathy, colitis, chronic diffuse abdominal pain, chronic generalized pain, fluid retention, bedbound, lower GI bleed, hiatal hernia, DVT in leg which traveled to his lung, DDD, scoliosis, ALEXIS without device, CKD stage III, pseudoseizures with past extensive work up thru [facility], basal cell skin cancer removed from face. History of Any Multi-Drug Resistant Organisms: C-DIFF, MRSA Year Discovered:: mrsa 2019, c-diff 2019 MDRO Source:: sputum, stool Past Surgical History: Appendectomy, Bariatric Surgery, Heart Catheterization, Hernia Repair, Joint Replacement, Orthopedic Surgery Additional Past Surgical History / Comment(s): Gastric sleeve in 2014, L inguinal hernia repair, R elbow surgery x2, total R hip arthroplasty, L knee arthroscopy/ACL surgery, R ankle ORIF, EGD, colonoscopy, basal cell skin cancer from face, surgery for varicele. Past Anesthesia/Blood Transfusion Reactions: Previous Problems w/ Anesthesia Additional Past Anesthesia/Blood Transfusion Reaction / Comm: STATES HE WAS TOLD HE WAS A DIFFICULT INTUBATION WITH GASTRIC SLEEVE SURGERY, Past Psychological History: Anxiety, Bipolar, Depression, Panic Disorder, Schizoaffective Disorder Smoking Status: Former smoker Past Alcohol Use History: None Reported Past Drug Use History: None Reported - Past Family History Father Family Medical History: Cancer Additional Family Medical History / Comment(s): LUNG CA Mother Family Medical History: Coronary Artery Disease (CAD) Additional Family Medical History / Comment(s): Mother of an infection. Medications and Allergies Home Medications Medication Instructions Recorded Confirmed Type Rivaroxaban [Xarelto] 20 mg PO DAILY 07/14/19 09/05/21 History dilTIAZem HCL [Diltiazem HCl] 30 mg PO TID 07/15/19 09/05/21 History Atorvastatin [Lipitor] 10 mg PO HS 08/03/19 09/05/21 History OLANZapine 20 mg PO HS 10/29/20 09/05/21 History Omeprazole 20 mg PO DAILY 03/27/21 09/05/21 History Potassium Chloride ER [K-Dur 20] 20 meq PO TID 03/27/21 09/05/21 History Tiotropium 18 Mcg/Puff [Spiriva] 1 puff INHALATION RT-DAILY 03/27/21 09/05/21 History Bumetanide 2 mg PO BID 09/05/21 09/05/21 History Buprenorphine HCl [Belbuca] 450 mcg SL BID 09/05/21 09/05/21 History DULoxetine HCL [Cymbalta] 60 mg PO DAILY 09/05/21 09/05/21 History Gabapentin 600 mg PO TID 09/05/21 09/05/21 History Spironolactone [Aldactone] 25 mg PO BID 09/05/21 09/05/21 History Allergies Allergy/AdvReac Type Severity Reaction Status Date / Time codeine Allergy Severe Swelling Verified 09/05/21 07:29 OF THROAT WITH COUGH SYRUP chlorpheniramine Allergy Unknown Verified 09/05/21 07:29 febuxostat [From Uloric] Allergy Unknown Verified 09/05/21 07:29 phenylephrine Allergy Unknown Verified 09/05/21 07:29 piperacillin sodium Allergy Unknown Verified 09/05/21 07:29 [From Zosyn] sulfamethoxazole Allergy Unknown Verified 09/05/21 07:29 [From Bactrim] tazobactam sodium Allergy Unknown Verified 09/05/21 07:29 [From Zosyn] trimethoprim [From Bactrim] Allergy Unknown Verified 09/05/21 07:29 buspirone [From BuSpar] AdvReac Rapid Verified 09/05/21 07:29 Heart Rate Surgical - Exam Vital Signs Temp Pulse Resp BP Pulse Ox 98.5 F 76 16 148/78 98 09/05/21 01:45 09/05/21 01:45 09/05/21 01:45 09/05/21 01:45 09/05/21 01:45 - General well developed, moderate distress - Eyes PERRL - ENT normal pinna - Neck no masses - Respiratory normal expansion - Cardiovascular Rhythm: regular - Abdomen Mild tenderness epigastric upper quadrant Abdomen: soft Results - Labs 09/05/21 02:07 09/05/21 02:07 Abnormal Lab Results - Last 24 Hours (Table) 09/05/21 09/05/21 Range/Units 02:07 02:07 RBC 4.07 L (4.30-5.90) m/uL Hgb 11.2 L (13.0-17.5) gm/dL Hct 34.9 L (39.0-53.0) % Lymphocytes # 0.7 L (1.0-4.8) k/uL Sodium 132 L (137-145) mmol/L Chloride 89 L (98-107) mmol/L Carbon Dioxide 39 H (22-30) mmol/L BUN 28 H (9-20) mg/dL Glucose 128 H (74-99) mg/dL AST 240 H (17-59) U/L ALT 172 H (4-49) U/L Alkaline Phosphatase 259 H (38-126) U/L Diabetes panel 09/05/21 Range/Units 02:07 Sodium 132 L (137-145) mmol/L Potassium 5.0 (3.5-5.1) mmol/L Chloride 89 L (98-107) mmol/L Carbon Dioxide 39 H (22-30) mmol/L BUN 28 H (9-20) mg/dL Creatinine 0.78 (0.66-1.25) mg/dL Glucose 128 H (74-99) mg/dL Calcium 8.8 (8.4-10.2) mg/dL AST 240 H (17-59) U/L ALT 172 H (4-49) U/L Alkaline Phosphatase 259 H (38-126) U/L Total Protein 6.5 (6.3-8.2) g/dL Albumin 3.5 (3.5-5.0) g/dL Calcium panel 09/05/21 Range/Units 02:07 Calcium 8.8 (8.4-10.2) mg/dL Phosphorus 4.1 (2.5-4.5) mg/dL Albumin 3.5 (3.5-5.0) g/dL Pituitary panel 09/05/21 Range/Units 02:07 Sodium 132 L (137-145) mmol/L Potassium 5.0 (3.5-5.1) mmol/L Chloride 89 L (98-107) mmol/L Carbon Dioxide 39 H (22-30) mmol/L BUN 28 H (9-20) mg/dL Creatinine 0.78 (0.66-1.25) mg/dL Glucose 128 H (74-99) mg/dL Calcium 8.8 (8.4-10.2) mg/dL Adrenal panel 09/05/21 Range/Units 02:07 Sodium 132 L (137-145) mmol/L Potassium 5.0 (3.5-5.1) mmol/L Chloride 89 L (98-107) mmol/L Carbon Dioxide 39 H (22-30) mmol/L BUN 28 H (9-20) mg/dL Creatinine 0.78 (0.66-1.25) mg/dL Glucose 128 H (74-99) mg/dL Calcium 8.8 (8.4-10.2) mg/dL Total Bilirubin 0.8 (0.2-1.3) mg/dL AST 240 H (17-59) U/L ALT 172 H (4-49) U/L Alkaline Phosphatase 259 H (38-126) U/L Total Protein 6.5 (6.3-8.2) g/dL Albumin 3.5 (3.5-5.0) g/dL Assessment and Plan Assessment: Recurrent epigastric pain. Patient will undergo HIDA scan with ejection fraction to evaluate for possible biliary dysfunction.
--- NOTE | 2021-09-05 12:07 | XR ---
EXAMINATION TYPE: XR chest 1V portable DATE OF EXAM: 09/05/2021 Comparison: 06/09/2021 Clinical History: 60-year-old male pleural effusion Findings: Right heart margin obscured by adjacent pleural parenchymal opacity. There is enlarging now moderate to large right pleural effusion extending to the midlung level. Interstitial/vascular prominence. Impression: Enlarging now moderate to large right pleural effusion with underlying atelectasis and/or consolidati on. Correlate to exclude background of pulmonary vascular congestion.
--- NOTE | 2021-09-05 16:36 | HP ---
HISTORY AND PHYSICAL DATE OF SERVICE: 09/05/2021 CHIEF COMPLAINTS: Chest pain, shortness of breath and some abdominal discomfort. HISTORY OF PRESENT ILLNESS: This 60-year-old gentleman with a past medical history of multiple medical problems including history of atrial fibrillation, history of CHF, COPD, CVA, TIA, diabetes type 2, DVT, GERD, GI bleed, hypertension, history of DJD, history of pulmonary embolism, being followed by [facility] in the outpatient setting, not feeling well for the past several days. Patient had chest pain which is diffuse in character and also some abdominal discomfort and also shortness of breath. The patient was found to have right pleural effusion. Patient was admitted for further evaluation and treatment. Surgical evaluation has been sought. Gallbladder dysfunction also suspected. There is no history of fever, rigors, chills at this time. PAST MEDICAL HISTORY: Atrial fibrillation, history of CHF, COPD, CVA, TIA, diabetes type 2, DVT, GERD, GI bleed, hypertension, hyperlipidemia, DJD. MEDICATIONS: Home medications are: Cymbalta, diltiazem, Spiriva, Aldactone, Xarelto, K-Dur, omeprazole, gabapentin, bumetanide and Lipitor. Doses are noted. ALLERGIES: CODEINE, CHLORPHENIRAMINE PHENYLEPHRINE, ZOSYN, BACTRIM AND BUSPAR. FAMILY HISTORY: History of lung cancer in the family. SOCIAL HISTORY: History of smoking. No history of alcohol intake. REVIEW OF SYSTEMS: ENT: No diminished vision. No diminished hearing. CARDIOVASCULAR system: As mentioned earlier. GI: No nausea or vomiting. : No dysuria. NERVOUS SYSTEM: No numbness or weakness. ALLERGY/IMMUNOLOGY: No asthma or hayfever. MUSCULOSKELETAL: As mentioned earlier. HEMATOLOGY/ONCOLOGY: No history of anemia. ENDOCRINE: As mentioned earlier. CONSTITUTIONAL: As mentioned earlier. DERMATOLOGY: Negative. RHEUMATOLOGY: Negative. PSYCHIATRIC: As mentioned earlier. PHYSICAL EXAMINATION: Alert and oriented times three. Pulse 74, blood pressure 130/77, respirations 18, temperature 98.2, pulse ox 94 percent on 2 L. HEENT: Conjunctivae normal. NECK: No JVD. CARDIOVASCULAR: S1, S2. RESPIRATION: Breath sounds diminished in the bases. Bilateral scattered rhonchi and crackles. ABDOMEN: Soft, obese, no guarding. No rigidity. Mild diffuse discomfort. LEGS: Leg edema bilateral, leg cellulitis also present. NERVOUS SYSTEM: Higher functions as mentioned earlier. Moves all 4 limbs. No focal motor or sensory deficits. LYMPHATICS: No lymph nodes palpable in the neck, axillae or groin. SKIN: No ulcers, rashes or bleeding. JOINTS: No active deforming arthropathy. LAB STUDIES: WBC 6.3, hemoglobin 11.2, sodium 132, AST is 240, ALT is 172. ASSESSMENT: 1. Right pleural effusion with possible right pneumonia and pneumonic effusion with possible sepsis present on admission. 2. Acute bilateral leg cellulitis. 3. Possibly congestive heart failure, acute exacerbation with ejection fraction unknown. 4. Hyponatremia. 5. Anemia, normocytic. 6. Elevated AST/ALT and alkaline phosphatase. 7. History of atrial fibrillation. 8. History of asthma/chronic obstructive pulmonary disease. 9. History of cerebrovascular accident, transient ischemic attack. 10.Diabetes mellitus type 2. 11.History of deep vein thrombosis. 12.Gastroesophageal reflux disease. 13.History of gastrointestinal bleed. 14.Hypertension. 15.Hyperlipidemia. 16.History of degenerative joint disease. 17.History of pulmonary embolism. 18.History of sleep apnea. 19.History of recent right thoracocentesis. 20.History of bilateral peripheral neuropathy. 21.History of pseudoseizures with extensive past workup in [facility]. 22.History of MRSA. 23.Appendectomy. 24.History of bariatric surgery. 25.History of anxiety, bipolar, depression panic disorder schizoaffective disorder. 26.Remote history of nicotine dependence. 27.Obesity with body mass of 39.5. 28.FULL CODE. RECOMMENDATIONS AND DISCUSSION: In this 60-year-old gentleman who presented with multiple complex medical issues, we will monitor the patient closely. Recommend empiric antibiotics and diuretics also. Monitor fluid and electrolytes balance closely. Cardiology and Pulmonary consultation. Patient has significant pleural effusion might require another tap. We will hold the blood thinners for overnight and continue to monitor. Prognosis guarded because of multiple complex medical issues. Further recommendations to follow. A copy of dictation being forwarded to Dr. Rodrigez who is following the patient at the [facility]. MMODL / JONESN: [id number] / MTDD
--- NOTE | 2021-09-05 16:53 | NM ---
/Hepatitis EXAMINATION TYPE: NM hepatobiliary wo EF DATE OF EXAM: 09/05/2021 COMPARISON: Recent ultrasound HISTORY: 60-year-old male abdominal pain TECHNIQUE: After the intravenous administration of 4.27 mCi Tc 99m Mebrofenin hepatobiliary scintigra phy is performed. Immediate images post injection. FINDINGS: Their is delayed clearance of tracer from the blood flow. No visualization of either bile duct, bowel , or gallbladder up to 3 hours. IMPRESSION: No visualization of the bile duct, bowel, or gallbladder up to 3 hours. Given delayed clearance of tr acer from the blood pool, consider poor liver function secondary to active inflammation/hepatitis. Co rrelate with LFTs and patient risk factors.
[2021-09-05] MEDS: MORPHINE SULFATE 4 MG/ML SYRINGE IV PRN (17:21)
[2021-09-05] MEDS: FUROSEMIDE 10 MG/ML 4 ML VIAL IV SCH ×2 (17:31→23:30)
[2021-09-05] MEDS: POTASSIUM CHLORIDE ER 20 MEQ TAB.ER PO SCH ×2 (17:32→21:03)
[2021-09-05] MEDS: GABAPENTIN 300 MG CAP PO SCH ×2 (17:32→21:04)
[2021-09-05 18:34] LABS: Appearance,Urine Clear (Clear); Bilirubin,Urine 1+ (Negative); Blood,Urine Negative (Negative); Color,Urine Yellow; Glucose,Urine (UA) Negative (Negative); Ketones,Urine Negative (Negative); Leukocyte Esterase,Urine Negative (Negative); Nitrite,Urine Negative (Negative); Protein,Urine Trace (Negative); Specific Gravity,Urine 1.023 (1.001-1.035)
[2021-09-05 18:49] LABS: Amphetamine Screen,Urine Not Detected (NotDetected); Barbiturate Screen,Urine Not Detected (NotDetected); Benzodiazepines Screen,Urine Not Detected (NotDetected); Cocaine Screen,Urine Not Detected (NotDetected); Methadone Screen, Urine Not Detected (NotDetected); Opiate Screen,Urine Detected (NotDetected); Oxycodone Screen, Urine Not Detected (NotDetected); Phencyclidine Screen,Urine Not Detected (NotDetected); Tricyclic Antidepressant,Urine Not Detected (NotDetected); Urn Cannabinoid Scrn Not Detected (NotDetected)
[2021-09-05] MEDS: IPRATROPIUM-ALBUTEROL 3 ML NEB INHALATION SCH (20:01)
--- NOTE | 2021-09-05 20:57 | US ---
EXAMINATION TYPE: US chest DATE OF EXAM: 09/05/2021 COMPARISON: Chest x-ray same date CLINICAL HISTORY: Right pleural effusion . morbidly obese patient with pleural effusion, patient woul d not sit upright, tech had to help hold him over to the left side TECHNIQUE: Targeted ultrasound of the posterior lower right EXAM MEASUREMENTS: Right Pleural Effusion pocket size: 5.8 cm Right skin surface to fluid distance: 3.1 cm Right side marked for possible thoracentesis outside the dept. Pulmonologists are able to review the images in the patient?s EMR. IMPRESSIONS: Moderate right pleural effusion
[2021-09-05] MEDS ORDERED: BUMETANIDE 2 MG PO SCH (21:00)
[2021-09-05] MEDS: NON FORMULARY DRUG (Buprenorphine Hcl [Belbuca] 450 MCG Film) SUBLINGUAL SCH (21:01)
[2021-09-05] MEDS: SPIRONOLACTONE 25 MG TAB PO SCH (21:03)
[2021-09-05] MEDS: DILTIAZEM ORAL 30 MG TAB PO SCH ×2 (21:03→23:30)
[2021-09-05] MEDS: ACETAMINOPHEN TAB 325 MG TAB PO PRN (21:03)
[2021-09-05] MEDS: OLANZapine 10 MG TAB PO SCH (21:04)
[2021-09-05] MEDS: HEPARIN SODIUM,PORCINE/PF 5,000 UNIT/0.5 ML SYRINGE SQ SCH (21:04)
[2021-09-05] MEDS: ATORVASTATIN 10 MG TAB PO SCH (21:04)
[2021-09-06] MEDS: MORPHINE SULFATE 4 MG/ML SYRINGE IV PRN ×3 (05:21→15:55)
[2021-09-06 07:04] LABS: ALT 481 U/L (4-49); AST 382 U/L (17-59); African American GFR (CKD) >90 (>60 ml/min/1.73 sqM); Albumin 3.5 g/dL (3.5-5.0); Albumin/Globulin Ratio 1.1; Alkaline Phosphatase 416 U/L (38-126); Blood Urea Nitrogen 22 mg/dL (9-20); Calcium 9.3 mg/dL (8.4-10.2); Chloride 88 mmol/L (98-107); Globulin 3.2 g/dL; Glucose 105 mg/dL (74-99); Magnesium 1.8 mg/dL (1.6-2.3); Non-African American GFR(CKD) >90 (>60 ml/min/1.73 sqM); Phosphorus 3.4 mg/dL (2.5-4.5); Potassium 4.3 mmol/L (3.5-5.1); Sodium 137 mmol/L (137-145); Total Bilirubin 3.7 mg/dL (0.2-1.3); Total Protein 6.7 g/dL (6.3-8.2)
[2021-09-06 07:28] LABS: Anion Gap 6 mmol/L
[2021-09-06 07:33] LABS: Carbon Dioxide 43 mmol/L (22-30)
[2021-09-06] MEDS: IPRATROPIUM-ALBUTEROL 3 ML NEB INHALATION SCH ×3 (07:40→20:00)
[2021-09-06] MEDS ORDERED: NON FORMULARY DRUG (Tiotropium 18 Mcg/Puff 1 PUFF Inhaler) INHALATION SCH (08:00)
[2021-09-06 08:06] LABS: Lipase 3525 U/L (23-300)
[2021-09-06] MEDS: ACETAMINOPHEN TAB 325 MG TAB PO PRN ×3 (08:12→20:52)
[2021-09-06] MEDS ORDERED: NON FORMULARY DRUG (Omeprazole [Omeprazole] 20 MG Capsule.Dr) PO SCH (09:00)
[2021-09-06 09:07] LABS: Basophils # (A) 0.01 X 10*3/uL (0.00-0.10); Basophils % (A) 0.1 %; Eosinophils # (A) 0.02 X 10*3/uL (0.04-0.35); Eosinophils % (A) 0.2 %; HCT 37.9 % (39.6-50.0); HGB 11.3 g/dL (13.0-17.0); Lymphocytes # (A) 0.23 X 10*3/uL (0.90-5.00); Lymphocytes % (A) 2.5 %; MCH 26.7 pg (27.0-32.0); MCHC 29.8 g/dL (32.0-37.0); MCV 89.4 fL (80.0-97.0); Mean Platelet Volume 9.4 fL (9.5-12.2); Monocytes # (A) 0.72 X 10*3/uL (0.20-1.00); Monocytes % (A) 7.7 %; Neutrophils # (A) 8.34 X 10*3/uL (1.80-7.70); Neutrophils % (A) 89.1 %; Platelet Count 258 X 10*3/uL (140-440); RBC 4.24 X 10*6/uL (4.40-5.60); RDW 15.6 % (11.5-14.5); WBC 9.36 X 10*3/uL (4.50-10.00)
[2021-09-06] MEDS: POTASSIUM CHLORIDE ER 20 MEQ TAB.ER PO SCH ×3 (09:46→20:53)
[2021-09-06] MEDS: DILTIAZEM ORAL 30 MG TAB PO SCH ×3 (09:46→20:52)
[2021-09-06] MEDS: GABAPENTIN 300 MG CAP PO SCH ×3 (09:46→20:52)
[2021-09-06] MEDS: DULoxetine HCL 60 MG CAPSULE.DR PO SCH (09:46)
[2021-09-06] MEDS: SPIRONOLACTONE 25 MG TAB PO SCH ×2 (09:46→20:53)
[2021-09-06] MEDS: HEPARIN SODIUM,PORCINE/PF 5,000 UNIT/0.5 ML SYRINGE SQ SCH (09:47)
[2021-09-06] MEDS: PANTOPRAZOLE 40 MG/10 ML VIAL IV SCH (09:48)
[2021-09-06] MEDS: FUROSEMIDE 10 MG/ML 4 ML VIAL IV SCH ×2 (09:57→20:53)
--- NOTE | 2021-09-06 11:19 | P.PN ---
Subjective Progress Note Date: 09/06/21 Principal diagnosis: Pancreatitis Patient complaining of upper abdominal pain today. He is nothing by mouth. His liver enzymes and his lipase are significantly increased today. HIDA scan showed no significant contrast leaving the liver. Patient is hungry however. Objective - Vital Signs Vital signs: Vital Signs Temp 101.5 F H 09/06/21 07:46 Pulse 80 09/06/21 07:56 Resp 18 09/06/21 07:46 BP 140/69 09/06/21 07:46 Pulse Ox 85 L 09/06/21 07:46 Intake & Output 09/05/21 09/06/21 09/06/21 18:59 06:59 18:59 Output Total 351 Balance -351 Weight 204.117 kg Output: Urine 350 Stool 1 Other: Voiding Method Urinal Urinal # Voids 1 - Exam Abdomen: Soft, nondistended, mild epigastric tenderness - Labs CBC & Chem 7: 09/06/21 05:56 09/06/21 05:56 Labs: Abnormal Lab Results - Last 24 Hours (Table) 09/05/21 09/06/21 09/06/21 Range/Units 18:31 05:56 05:56 RBC 4.24 L (4.40-5.60) X 10*6/uL Hgb 11.3 L (13.0-17.0) g/dL Hct 37.9 L (39.6-50.0) % MCH 26.7 L (27.0-32.0) pg MCHC 29.8 L (32.0-37.0) g/dL RDW 15.6 H (11.5-14.5) % MPV 9.4 L (9.5-12.2) fL Neutrophils # 8.34 H (1.80-7.70) X 10*3/uL Lymphocytes # 0.23 L (0.90-5.00) X 10*3/uL Eosinophils # 0.02 L (0.04-0.35) X 10*3/uL Chloride 88 L (98-107) mmol/L Carbon Dioxide 43 H* (22-30) mmol/L BUN 22 H (9-20) mg/dL Glucose 105 H (74-99) mg/dL Total Bilirubin 3.7 H (0.2-1.3) mg/dL AST 382 H (17-59) U/L ALT 481 H (4-49) U/L Alkaline Phosphatase 416 H (38-126) U/L Lipase 3525 H (23-300) U/L Urine Protein Trace H (Negative) Urine Bilirubin 1+ H (Negative) Urine Opiates Screen Detected H (NotDetected) Microbiology - Last 24 Hours (Table) 09/05/21 Unknown Wound Culture - Preliminary Leg - Left Assessment and Plan (1) Pancreatitis Narrative/Plan: 60-year-old male with upper abdominal pain and pancreatitis by labs. Patient's liver enzymes elevated as well. Underlying gallstone pancreatitis not excluded although ultrasound did not show gallstones. Patient may have clear liquids. Recheck labs. Will need GI evaluation. Current Visit: Yes Status: Acute Code(s): K85.90 - ACUTE PANCREATITIS WITHOUT NECROSIS OR INFECTION, UNSP SNOMED Code(s): 75586420
--- NOTE | 2021-09-06 12:43 | P.CNPUL ---
History of Present Illness Consult date: 09/06/21 Requesting physician: Lakshmi Salazar Reason for consult: pleural effusion Chief complaint: Abdominal pain, chronic right pleural effusion History of present illness: This is a 60 male patient who is familiar to our service from previous hospitalizations for shortness of breath, and recurrent and chronic right-sided pleural effusion with previous history of thoracentesis 2. Patient had right-sided thoracentesis on 08/04/2019 with removal of 950 mL of turbid dark yellowish pleural fluid, and on 09/12/2019, the amount of fluid removed during that time is not known. The fluid from 08/04/2019 was transudative, with LDH of 164, and the fluid total protein of 2715. The pleural fluid from 09/12/2019 was found to be exudative, with LDH of 356, and the fluid total protein of 4059. Both times cytology and cultures of the pleural fluid was negative. After each thoracentesis patient would have a lot of pleuritic chest pain, requiring pain medications. Patient has an extensive medical history, including chronic hypercapnic respiratory failure related to obesity hypoventilation syndrome, and patient has a Trilogy ventilator at home, on AVAPS mode with TTV 550 ml, Max PSV 25, Min PSV 5, Max EPAP 10, Min EPAP 5. History of pulmonary embolism and previous history of DVT, paroxysmal atrial fibrillation on's [place], gait dysfunction, patient is chronically bedbound, chronic pain syndrome, diabetes type II with diabetic neuropathy, history of chronic kidney disease, unspecified, morbid obesity with previous history of gastric sleeve surgery in 2013, history of COPD, former smoker, anxiety, depression, panic disorder, history of chronic CHF, cor pulmonale, his previous echocardiogram from October 2020 showed EF of 55-60%, mild MR, mild TR, severe pulmonary hypertension with PA systolic of 55.7 mmHg. Patient was brought into the hospital on 09/05/2021 by EMS when she came in for evaluation of severe abdominal pain, epigastric discomfort, and shortness of breath when he takes a deep breath. No fever or chills, he did report some nausea and vomiting. CT of the abdomen and pelvis has been completed showing some consolidation and atelectasis in the right lower lobe with right pleural effusion, bile ducts not significantly different than old exam, a correlation to gallbladder dysfunction. There was no obstructing lesion noted in the common bile duct. Gallbladder ultrasound was a very limited exam related to the body habitus, but no stones were seen, no steff hydropic ch anges of the surrounding fluid. Gen. surgery has been consulted, patient's admission blood work showed white blood cell count of 6.3, hemoglobin of 11.2, sodium of 132, potassium 5.0, chloride is 89, CO2 is 39, BUN of 20, creatinine 0.78, total bilirubin was 0.8, AST was 240, ALT was 172, alkaline phosphatase was 259, his initial lipase was 58, however subsequent lipase on 09/06/2021 showed a significant increase and is currently up to 3525. Amylase was 38 on admission. His troponin was less than 0.012, urinalysis showed trace protein, 1+ bilirubin, but no definite sign of infection, urine drug screen showed opiates, COVID-19 PCR was negative, chest x-ray showed enlarging moderate to large right pleural effusion with underlying atelectasis and/or consolidation. Chest ultrasound was completed showing right pleural effusion pocket size of 5.8. Patient is breathing comfortably, denies any chest pain, is currently on 4 L of oxygen pulse ox is 85%. Earlier she was on 2 L of oxygen pulse ox was 96%, he appears to be generally swollen, with significant edema involving his bilateral lower extremities, he was started on IV diuretics with Lasix 40 mg twice daily. He is on a combination of Rocephin, he is on breathing treatments, pain medications, Zofran. He is on Aldactone 25 mg twice daily. Gen. surgery is following, HIDA scan was completed showing delayed clearance of tracer from the blood flow, no visualization of either bile duct bowel or gallbladder up to 3 hours. We were asked to see the patient in evaluation for his chronic right- sided pleural effusion Review of Systems All systems: negative Constitutional: Denies chills, Denies fever Eyes: denies blurred vision, denies pain Ears, nose, mouth and throat: Denies headache, Denies sore throat Cardiovascular: Reports edema, Denies chest pain, Denies shortness of breath Respiratory: Reports dyspnea, Denies cough Gastrointestinal: Reports abdominal pain, Reports nausea, Reports vomiting, Denies diarrhea Musculoskeletal: Denies myalgias Integumentary: Denies pruritus, Denies rash Neurological: Denies numbness, Denies weakness Psychiatric: Denies anxiety, Denies depression Endocrine: Denies fatigue, Denies weight change Past Medical History Past Medical History: Atrial Fibrillation, Asthma, Cancer, Heart Failure, COPD, CVA/TIA, Diabetes Mellitus, Deep Vein Thrombosis (DVT), GERD/Reflux, GI Bleed, Hyperlipidemia, Hypertension, Osteoarthritis (OA), Pneumonia, Pulmonary Embolus (PE), Renal Disease, Respiratory Disorder, Sleep Apnea/CPAP/BIPAP Additional Past Medical History / Comment(s): Pt recently admitted to [facility] on 08/05/19 with acute on chronic CHF/abnormal ECHO-see report/paroxysmal afib/bilateral pleural effusions with R sided thoracentesis. Other hx: Pt denies diabetes stating he has hypoglycemia/pt recently transfered to [facility] for endocrinology consultation-states he wasn't told anything new, states he has bilateral feet neuropathy, colitis, chronic diffuse abdominal pain, chronic generalized pain, fluid retention, bedbound, lower GI bleed, hiatal hernia, DVT in leg which traveled to his lung, DDD, scoliosis, ALEXIS without device, CKD stage III, pseudoseizures with past extensive work up thru [facility], basal cell skin cancer removed from face. History of Any Multi-Drug Resistant Organisms: C-DIFF, MRSA Date of last positivie culture/infection: mrsa 2019, c-diff 2019 MDRO Source:: sputum, stool Past Surgical History: Appendectomy, Bariatric Surgery, Heart Catheterization, Hernia Repair, Joint Replacement, Orthopedic Surgery Additional Past Surgical History / Comment(s): Gastric sleeve in 2013, L inguinal hernia repair, R elbow surgery x2, total R hip arthroplasty, L knee arthroscopy/ACL surgery, R ankle ORIF, EGD, colonoscopy, basal cell skin cancer from face, surgery for varicele. Past Anesthesia/Blood Transfusion Reactions: Previous Problems w/ Anesthesia Additional Past Anesthesia/Blood Transfusion Reaction / Comment(s): STATES HE WAS TOLD HE WAS A DIFFICULT INTUBATION WITH GASTRIC SLEEVE SURGERY, Past Psychological History: Anxiety, Bipolar, Depression, Panic Disorder, Schizoaffective Disorder Additional Psychological History / Comment(s): Pt resides with his son. states his home care services just stopped 09/06/19 He states he has been bedbound past few months. Pt states he gets paranoid at times. Smoking Status: Former smoker Past Alcohol Use History: None Reported Additional Past Alcohol Use History / Comment(s): STARTED SMOKING AT AGE 15 QUIT SMOKING 1998, smoked 4 cigerettes- 1PPD FORMER ETOH ABUSE. Pt states QUIT 2012 Past Drug Use History: None Reported Additional Drug Use History / Comment(s): PAST HX OF MARIJUANA USE, DENIES USE IN YEARS. - Past Family History Father Family Medical History: Cancer Additional Family Medical History / Comment(s): LUNG CA Mother Family Medical History: Coronary Artery Disease (CAD) Additional Family Medical History / Comment(s): Mother of an infection. Medications and Allergies Home Medications Medication Instructions Recorded Confirmed Type Rivaroxaban [Xarelto] 20 mg PO DAILY 07/14/19 09/05/21 History dilTIAZem HCL [Diltiazem HCl] 30 mg PO TID 07/15/19 09/05/21 History Atorvastatin [Lipitor] 10 mg PO HS 08/03/19 09/05/21 History OLANZapine 20 mg PO HS 10/29/20 09/05/21 History Omeprazole 20 mg PO DAILY 03/27/21 09/05/21 History Potassium Chloride ER [K-Dur 20] 20 meq PO TID 03/27/21 09/05/21 History Tiotropium 18 Mcg/Puff [Spiriva] 1 puff INHALATION RT-DAILY 03/27/21 09/05/21 History Bumetanide 2 mg PO BID 09/05/21 09/05/21 History Buprenorphine HCl [Belbuca] 450 mcg SL BID 09/05/21 09/05/21 History DULoxetine HCL [Cymbalta] 60 mg PO DAILY 09/05/21 09/05/21 History Gabapentin 600 mg PO TID 09/05/21 09/05/21 History Spironolactone [Aldactone] 25 mg PO BID 09/05/21 09/05/21 History Allergies Allergy/AdvReac Type Severity Reaction Status Date / Time codeine Allergy Severe Swelling Verified 09/05/21 07:29 OF THROAT WITH COUGH SYRUP chlorpheniramine Allergy Unknown Verified 09/05/21 07:29 febuxostat [From Uloric] Allergy Unknown Verified 09/05/21 07:29 phenylephrine Allergy Unknown Verified 09/05/21 07:29 piperacillin sodium Allergy Unknown Verified 09/05/21 07:29 [From Zosyn] sulfamethoxazole Allergy Unknown Verified 09/05/21 07:29 [From Bactrim] tazobactam sodium Allergy Unknown Verified 09/05/21 07:29 [From Zosyn] trimethoprim [From Bactrim] Allergy Unknown Verified 09/05/21 07:29 buspirone [From BuSpar] AdvReac Rapid Verified 09/05/21 07:29 Heart Rate Physical Exam Vitals: Vital Signs Temp Pulse Pulse Resp BP BP Pulse Ox 09/06/21 11:44 78 09/06/21 11:30 76 09/06/21 07:56 80 09/06/21 07:46 101.5 F H 71 18 140/69 85 L 09/06/21 07:40 80 09/06/21 02:00 99.1 F 87 18 128/55 96 09/05/21 20:12 94 09/05/21 20:01 94 09/05/21 19:16 99.8 F H 86 15 119/71 95 09/05/21 16:49 99.0 F 94 18 94 L 09/05/21 16:38 99.2 F 95 16 174/70 94 L 09/05/21 13:58 98.2 F 74 18 135/77 95 09/05/21 13:00 74 18 Intake and Output 09/05/21 09/06/21 09/06/21 22:59 06:59 14:59 Output Total 351 Balance -351 Output: Urine 350 Stool 1 Other: Voiding Method Bedpan Urinal Urinal Urinal # Voids 1 1 Weight 204.117 kg GENERAL EXAM: Alert, very pleasant, 60-year-old morbidly obese white male, on 2 L of oxygen pulse ox of 96%, comfortable in no apparent distress. HEAD: Normocephalic/atraumatic. EYES: Normal reaction of pupils, equal size. Conjunctiva pink, sclera white. NOSE: Clear with pink turbinates. THROAT: No erythema or exudates. NECK: No masses, no JVD, no thyroid enlargement, no adenopathy. CHEST: No chest wall deformity. Symmetrical expansion. LUNGS: Equal air entry with diminished breath sounds at bilateral bases CVS: Regular rate and rhythm, normal S1 and S2, no gallops, no murmurs, no rubs ABDOMEN: Soft, nontender. No hepatosplenomegaly, normal bowel sounds, no guarding or rigidity. EXTREMITIES: No clubbing, 1-2+ edema in bilateral lower extremities no cyanosis, 2+ pulses and upper and lower extremities. MUSCULOSKELETAL: Muscle strength and tone normal. SPINE: No scoliosis or deformity SKIN: No rashes CENTRAL NERVOUS SYSTEM: Alert and oriented -3. No focal deficits, tone is normal in all 4 extremities. PSYCHIATRIC: Alert and oriented -3. Appropriate affect. Intact judgment and insight. Results - Laboratory Findings CBC and BMP: 09/06/21 05:56 09/06/21 05:56 Abnormal lab findings: Abnormal Labs 09/05/21 09/05/21 09/05/21 02:07 02:07 18:31 RBC 4.07 L Hgb 11.2 L Hct 34.9 L MCH MCHC RDW MPV Neutrophils # Lymphocytes # 0.7 L Eosinophils # Sodium 132 L Chloride 89 L Carbon Dioxide 39 H BUN 28 H Glucose 128 H Total Bilirubin AST 240 H ALT 172 H Alkaline Phosphatase 259 H Lipase Urine Protein Trace H Urine Bilirubin 1+ H Urine Opiates Screen Detected H 09/06/21 09/06/21 05:56 05:56 RBC 4.24 L Hgb 11.3 L Hct 37.9 L MCH 26.7 L MCHC 29.8 L RDW 15.6 H MPV 9.4 L Neutrophils # 8.34 H Lymphocytes # 0.23 L Eosinophils # 0.02 L Sodium Chloride 88 L Carbon Dioxide 43 H* BUN 22 H Glucose 105 H Total Bilirubin 3.7 H AST 382 H ALT 481 H Alkaline Phosphatase 416 H Lipase 3525 H Urine Protein Urine Bilirubin Urine Opiates Screen - Diagnostic Findings Chest x-ray: report reviewed, image reviewed Additional studies: Gallbladder ultrasound results reviewed, the HIDA scan results reviewed, chest x-ray reviewed, EKG and chest ultrasound results and films reviewed Assessment and Plan Plan: Assessment: #1. Chronic right-sided pleural effusion, not significantly changed since last chest x-ray from February 2021. Patient had 2 previous right-sided thoracentesis. Patient had right-sided thoracentesis on 08/04/2019 with removal of 950 mL of turbid dark yellowish pleural fluid, and on 09/12/2019, the amount of fluid removed during that time is not known. The fluid from 08/04/2019 was transudative, with LDH of 164, and the fluid total protein of 2715. The pleural fluid from 09/12/2019 was found to be exudative, with LDH of 356, and the fluid total protein of 4059. Both times cytology and cultures of the pleural fluid was negative. After each thoracentesis patient would have a lot of pleuritic chest pain, requiring pain medications. #2. Right upper quadrant abdominal pain, related to acute pancreatitis. General surgery following #3. History of Chronic hypercapnic respiratory failure related to obesity hypoventilation syndrome, and has a trilogy ventilator at home, on AVAPS mode with TTV 550, Max PSV 25, Min PSV 5, Max EPAP 10, Min EPAP 5. #4. History of chronic CHF, cor pulmonale, with diastolic dysfunction, and chronic severe pulmonary hypertension #5. History of PE and DVT, on Xarelto #6. History of paroxysmal atrial fibrillation on Xarelto, currently in sinus mechanism #7. Gait dysfunction, patient is chronically bedbound #8. Chronic right-sided pleural effusion, previous history of thoracentesis with negative cytology and cultures #9. Chronic pain syndrome #10. Diabetes mellitus type 2, with diabetic neuropathy #11. Degenerative disc disease #12. Previous history of chronic kidney disease stage III #13. Morbid obesity with previous history of gastric sleeve surgery in 2013 #14. History of COPD, former smoker #15. Anxiety and depression, panic disorder Plan: Chest x-ray, CT of the abdomen and pelvis, ultrasound of the chest has been reviewed The right-sided pleural effusion is chronic, we do not recommend thoracentesis at this time Patient appears to be generally swollen, continue IV Lasix No significant pulmonary symptoms, Continue titrating FiO2 to keep O2 sats saturations between 80-90% He may be placed on hospital BIpap with AVAPS mode at bedtime Surgeries following, Will follow patient's clinical course I performed a history & physical examination of the patient and discussed their management with my nurse practitioner, Sophia Martinez. I reviewed the nurse practitioner's note and agree with the documented findings and plan of care. Lung sounds are positive for diminished breath sounds throughout the lung vasquez. The findings and the impression was discussed with the patient. I attest to the documentation by the nurse practitioner. Time with Patient: Greater than 30
[2021-09-06] MEDS: NON FORMULARY DRUG (Buprenorphine Hcl [Belbuca] 450 MCG Film) SUBLINGUAL SCH ×2 (14:24→20:54)
--- NOTE | 2021-09-06 15:40 | CT ---
EXAMINATION TYPE: CT angio chest DATE OF EXAM: 09/06/2021 COMPARISON: 09/16/2019 HISTORY: Shortness of breath, elevated d-dimer. CT DLP: 808.4 mGycm Automated exposure control for dose reduction was used. CONTRAST: Performed with IV Contrast, patient injected with 100 mL of Isovue 370. Images obtained from the thoracic inlet to the diaphragm with IV contrast. There are 3-D post process ed images. There is right pleural effusion. Heart size is top normal. There is no pericardial effusion. There is consolidation and atelectasis right lower lobe adjacent to the pleural fluid. Heart is deviated to t he right side. Thoracic aorta appears intact without evidence of aneurysm. I see no filling defect in the pulmonary arteries. There are no hilar masses. There is coronary artery calcification. There is no mediastinal adenopathy. There is some degenerative spurring in the thoracic spine. There is no compression fracture. Sternum is intact. IMPRESSION: Right pleural effusion with right lower lobe consolidation and atelectasis and volume loss. No evidence of pulmonary embolism. Appearance of the chest is not significantly different than old ex am 2 years ago.
[2021-09-06] MEDS ORDERED: HEPARIN SODIUM,PORCINE/PF 5,000 UNIT/0.5 ML SYRINGE SQ SCH (16:00)
--- NOTE | 2021-09-06 17:36 | US ---
EXAMINATION TYPE: US venous doppler duplex LE DATE OF EXAM: 09/06/2021 5:19 PM COMPARISON: US Popliteal Vein Small Saphenous Vein * Proximal Calf Veins (* superficial vessels) Difficult and limited exam due to patient body habitus, patient 450 lbs. Right Leg: Veins appear to be small in size. Color defect seen in distal femoral and distal poplitea l vein. Possible internal echoes versus artifact within these segments. Veins imaged do appear to com press. Prox calf veins not well seen. Left Leg: No evidence of DVT in veins imaged at this time, although exam is limited. IMPRESSION: There appears to be some chronic deep vein thrombosis in the right femoral and popliteal vein.
--- NOTE | 2021-09-06 18:17 | P.CRDCN ---
History of Present Illness Consult date: 09/06/21 Consult reason: congestive heart failure History of present illness: This is Kevin Salmon NP dictating a consult on this patient on behalf of Dr. Borja. The patient was interviewed and examined. HPI: Patient is a pleasant 60-year-old male who initially presented to the hospital with abdominal pain and possible cholecystitis. Cardiology was consulted for the patient's congestive heart failure and complex cardiac history. Patient reports that he is always swollen, and cannot elevate his legs at home. He states that since he's been the hospital the swelling in his lower legs has improved. He does report that he is always short of breath as well. The patient is also reporting chest pain, however it is low down in his chest and is felt to be due to a current diagnosis of pancreatitis. Patient is a past medical history includes atrial fibrillation, congestive heart failure, COPD, CVA, TIA, high 2 diabetes, DVT, GERD, GI bleed, hypertension, degenerative disc disease, pulmonary embolism. Patient's home medications include duloxetine 60 mg daily, diltiazem 30 mg 3 times a day, Spiriva daily, spironolactone 25 mg twice a day, Xarelto 20 mg daily, potassium chloride 20 mEq 3 times a day, omeprazole 20 mg daily, olanzapine 20 mg at bedtime, gabapentin 600 mg 3 times a day, buprenorphine 450 g sublingual, bumetanide 2 mg twice a day, and atorvastatin 10 mg at bedtime. ROS: [No fever, chills, or rigors] [no cough, phlegm, or expectoration] [no nausea, vomiting, or diarrhea] [no hematuria, dysuria] [no musculoskelatal complaints] [no strokes or seizures] [no skin lesions] EXAMINATION: GENERAL: Well-appearing, well-nourished and in no acute distress. NECK: Supple without JVD or thyromegaly. LUNGS: Breath sounds diminished but clear to auscultation bilaterally. Respiration equal and unlabored. No wheezes, rales or rhonchi. HEART: Regular rate and rhythm without murmurs, rubs or gallops. S1 and S2 heard. EXTREMITIES: Normal range of motion, 1-2+ edema bilateral lower legs. No c lubbing or cyanosis. Peripheral pulses intact and strong. REVIEW OF LABS, ECG & MEDICAL DATA: LABS: White count 9.36, hemoglobin 11.3, d-dimer 1.84, sodium 137, potassium 4.3, BUN 22, creatinine 0.89, EKG: Dated 09/05/2021 shows normal sinus rhythm IMAGING: Ultrasound of the chest dated 09/05/2021 shows right pleural effusion at 5.8 cm. VITALS: Temp 100.1, pulse 76, blood pressure 106/65, O2 saturations 92% on 4 L nasal cannula. IMPRESSION/PLAN: 1. Acute exacerbation of congestive heart failure-continue IV Lasix as ordered. Check BNP. Echocardiogram. 2. Elevated c-omzza-buijjynty workup for pulmonary embolism. 3. Hypertension-currently controlled on medication Continue recommendations will depend on patient's clinical course. Thank you for the consult and allowing us to participate in the care of this p atient. Past Medical History Past Medical History: Atrial Fibrillation, Asthma, Cancer, Heart Failure, COPD, CVA/TIA, Diabetes Mellitus, Deep Vein Thrombosis (DVT), GERD/Reflux, GI Bleed, Hyperlipidemia, Hypertension, Osteoarthritis (OA), Pneumonia, Pulmonary Embolus (PE), Renal Disease, Respiratory Disorder, Sleep Apnea/CPAP/BIPAP Additional Past Medical History / Comment(s): Pt recently admitted to [facility] on 08/05/19 with acute on chronic CHF/abnormal ECHO-see report/paroxysmal afib/bilateral pleural effusions with R sided thoracentesis. Other hx: Pt denies diabetes stating he has hypoglycemia/pt recently transfered to [facility] for endocrinology consultation-states he wasn't told anything new, states he has bi lateral feet neuropathy, colitis, chronic diffuse abdominal pain, chronic generalized pain, fluid retention, bedbound, lower GI bleed, hiatal hernia, DVT in leg which traveled to his lung, DDD, scoliosis, ALEXIS without device, CKD stage III, pseudoseizures with past extensive work up thru [facility], basal cell skin cancer removed from face. History of Any Multi-Drug Resistant Organisms: C-DIFF, MRSA Date of last positivie culture/infection: mrsa 2018, c-diff 2019 MDRO Source:: sputum, stool Past Surgical History: Appendectomy, Bariatric Surgery, Heart Catheterization, Hernia Repair, Joint Replacement, Orthopedic Surgery Additional Past Surgical History / Comment(s): Gastric sleeve in 2014, L inguinal hernia repair, R elbow surgery x2, total R hip arthroplasty, L knee arthroscopy/ACL surgery, R ankle ORIF, EGD, colonoscopy, basal cell skin cancer from face, surgery for varicele. Past Anesthesia/Blood Transfusion Reactions: Previous Problems w/ Anesthesia Additional Past Anesthesia/Blood Transfusion Reaction / Comment(s): STATES HE WAS TOLD HE WAS A DIFFICULT INTUBATION WITH GASTRIC SLEEVE SURGERY, Past Psychological History: Anxiety, Bipolar, Depression, Panic Disorder, Schizoaffective Disorder Additional Psychological History / Comment(s): Pt resides with his son. states his home care services just stopped 09/06/19 He states he has been bedbound past few months. Pt states he gets paranoid at times. Smoking Status: Former smoker Past Alcohol Use History: None Reported Additional Past Alcohol Use History / Comment(s): STARTED SMOKING AT AGE 15 QUIT SMOKING 1998, smoked 4 cigerettes- 1PPD FORMER ETOH ABUSE. Pt states QUIT 2012 Past Drug Use History: None Reported Additional Drug Use History / Comment(s): PAST HX OF MARIJUANA USE, DENIES USE IN YEARS. - Past Family History Father Family Medical History: Cancer Additional Family Medical History / Comment(s): LUNG CA Mother Family Medical History: Coronary Artery Disease (CAD) Additional Family Medical History / Comment(s): Mother of an infection. Medications and Allergies Home Medications Medication Instructions Recorded Confirmed Type Rivaroxaban [Xarelto] 20 mg PO DAILY 07/14/19 09/05/21 History dilTIAZem HCL [Diltiazem HCl] 30 mg PO TID 07/15/19 09/05/21 History Atorvastatin [Lipitor] 10 mg PO HS 08/03/19 09/05/21 History OLANZapine 20 mg PO HS 10/29/20 09/05/21 History Omeprazole 20 mg PO DAILY 03/27/21 09/05/21 History Potassium Chloride ER [K-Dur 20] 20 meq PO TID 03/27/21 09/05/21 History Tiotropium 18 Mcg/Puff [Spiriva] 1 puff INHALATION RT-DAILY 03/27/21 09/05/21 History Bumetanide 2 mg PO BID 09/05/21 09/05/21 History Buprenorphine HCl [Belbuca] 450 mcg SL BID 09/05/21 09/05/21 History DULoxetine HCL [Cymbalta] 60 mg PO DAILY 09/05/21 09/05/21 History Gabapentin 600 mg PO TID 09/05/21 09/05/21 History Spironolactone [Aldactone] 25 mg PO BID 09/05/21 09/05/21 History Allergies Allergy/AdvReac Type Severity Reaction Status Date / Time codeine Allergy Severe Swelling Verified 09/05/21 07:29 OF THROAT WITH COUGH SYRUP chlorpheniramine Allergy Unknown Verified 09/05/21 07:29 febuxostat [From Uloric] Allergy Unknown Verified 09/05/21 07:29 phenylephrine Allergy Unknown Verified 09/05/21 07:29 piperacillin sodium Allergy Unknown Verified 09/05/21 07:29 [From Zosyn] sulfamethoxazole Allergy Unknown Verified 09/05/21 07:29 [From Bactrim] tazobactam sodium Allergy Unknown Verified 09/05/21 07:29 [From Zosyn] trimethoprim [From Bactrim] Allergy Unknown Verified 09/05/21 07:29 buspirone [From BuSpar] AdvReac Rapid Verified 09/05/21 07:29 Heart Rate Physical Exam Vitals: Vital Signs Temp Pulse Pulse Resp BP Pulse Ox 09/06/21 15:00 102.5 F H 93 18 106/65 92 L 09/06/21 11:44 78 09/06/21 11:30 76 09/06/21 09:45 100.1 F H 09/06/21 07:56 80 09/06/21 07:46 101.5 F H 71 18 140/69 85 L 09/06/21 07:40 80 09/06/21 02:00 99.1 F 87 18 128/55 96 09/05/21 20:12 94 09/05/21 20:01 94 09/05/21 19:16 99.8 F H 86 15 119/71 95 Intake and Output 09/06/21 09/06/21 09/06/21 06:59 14:59 22:59 Intake Total 240 Output Total 351 400 Balance -351 240 -400 Intake: Oral 240 Output: Urine 350 400 Stool 1 Other: Voiding Method Urinal Urinal # Voids 1 Results 09/06/21 05:56 09/06/21 05:56 Cardiac Enzymes 09/05/21 09/06/21 Range/Units 17:56 05:56 AST 382 H (17-59) U/L Troponin I <0.012 (0.000-0.034) ng/mL CBC 09/06/21 Range/Units 05:56 WBC 9.36 (4.50-10.00) X 10*3/uL RBC 4.24 L (4.40-5.60) X 10*6/uL Hgb 11.3 L (13.0-17.0) g/dL Hct 37.9 L (39.6-50.0) % Plt Count 258 (140-440) X 10*3/uL Comprehensive Metabolic Panel 09/06/21 Range/Units 05:56 Sodium 137 (137-145) mmol/L Potassium 4.3 (3.5-5.1) mmol/L Chloride 88 L (98-107) mmol/L Carbon Dioxide 43 H* (22-30) mmol/L BUN 22 H (9-20) mg/dL Creatinine 0.89 (0.66-1.25) mg/dL Glucose 105 H (74-99) mg/dL Calcium 9.3 (8.4-10.2) mg/dL AST 382 H (17-59) U/L ALT 481 H (4-49) U/L Alkaline Phosphatase 416 H (38-126) U/L Total Protein 6.7 (6.3-8.2) g/dL Albumin 3.5 (3.5-5.0) g/dL Current Medications Generic Name Dose Route Start Last Admin Trade Name Freq PRN Reason Stop Dose Admin Acetaminophen 650 mg 09/05/21 20:14 09/06/21 15:43 Acetaminophen Tab 325 Mg Tab PO 650 mg Q6HR PRN Administration Fever and/ or Pain Hydrocodone Bitart/Acetaminophen 1 each 09/05/21 20:15 Hydrocodone/Apap 5-325mg 1 Each Tab PO Q6HR PRN Pain Albuterol/Ipratropium 3 ml 09/05/21 03:57 09/05/21 07:12 Ipratropium-Albuterol 3 Ml Neb INHALATION 3 ml RT-QID PRN Administration Shortness Of Breath Or Wheezing Albuterol/Ipratropium 3 ml 09/05/21 20:00 09/06/21 11:30 Ipratropium-Albuterol 3 Ml Neb INHALATION 3 ml RT-TID YUN Administration Atorvastatin Calcium 10 mg 09/05/21 21:00 09/05/21 21:04 Atorvastatin 10 Mg Tab PO 10 mg HS YUN Administration Diltiazem HCl 30 mg 09/05/21 16:00 09/06/21 16:01 Diltiazem Oral 30 Mg Tab PO 30 mg TID YUN Administration Duloxetine HCl 60 mg 09/06/21 09:00 09/06/21 09:46 Duloxetine Hcl 60 Mg Capsule.Dr PO 60 mg DAILY YUN Administration Furosemide 40 mg 09/05/21 16:00 09/06/21 09:57 Furosemide 10 Mg/Ml 4 Ml Vial IV 40 mg Q12HR YUN Administration Gabapentin 600 mg 09/05/21 16:00 09/06/21 16:00 Gabapentin 300 Mg Cap PO 600 mg TID YUN Administration Heparin Sodium (Porcine) 5,000 unit 09/06/21 16:00 09/06/21 16:00 Heparin Sodium,Porcine/Pf 5,000 Unit/0.5 Ml Syringe SQ 5,000 unit Q8HR YUN Administration Ceftriaxone Sodium 1 gm/ 50 mls @ 100 mls/hr 09/05/21 15:45 09/06/21 09:46 Sodium Chloride IVPB 100 mls/hr Q24HR YUN Administration Morphine Sulfate 4 mg 09/05/21 03:57 09/06/21 15:55 Morphine Sulfate 4 Mg/Ml Syringe IV 4 mg Q4HR PRN Administration Severe Pain Naloxone HCl 0.2 mg 09/05/21 03:57 Naloxone 0.4 Mg/Ml 1 Ml Vial IV Q2M PRN Opioid Reversal Non-Formulary Medication 450 mcg 09/05/21 21:00 09/06/21 14:24 Buprenorphine Hcl [Belbuca] SUBLINGUAL 450 mcg BID YUN Administration Olanzapine 20 mg 09/05/21 21:00 09/05/21 21:04 Olanzapine 10 Mg Tab PO 20 mg HS YUN Administration Ondansetron HCl 4 mg 09/05/21 03:57 Ondansetron 4 Mg/2 Ml Vial IVP Q8HR PRN Nausea And Vomiting Pantoprazole Sodium 40 mg 09/05/21 09:00 09/06/21 09:48 Pantoprazole 40 Mg/10 Ml Vial IV 40 mg DAILY YUN Administration Potassium Chloride 20 meq 09/05/21 16:00 09/06/21 16:00 Potassium Chloride Er 20 Meq Tab.Er PO 20 meq TID YUN Administration Spironolactone 25 mg 09/05/21 21:00 09/06/21 09:46 Spironolactone 25 Mg Tab PO 25 mg BID YUN Administration Intake and Output 09/06/21 09/06/21 09/06/21 06:59 14:59 22:59 Intake Total 240 Output Total 351 400 Balance -351 240 -400 Intake: Oral 240 Output: Urine 350 400 Stool 1 Other: Voiding Method Urinal Urinal # Voids 1 09/06/21 05:56 09/06/21 05:56
[2021-09-06] MEDS ORDERED: HEPARIN SODIUM 1,000 UN/ML (10ML VL) IV ONE (19:17)
[2021-09-06] MEDS: HEPARIN SOD,PORK IN 0.45% NACL 25,000 UNIT in 0.45% NACL 1 250ML.BAG IV SCH (19:50)
--- NOTE | 2021-09-06 20:42 | PN ---
PROGRESS NOTE DATE OF SERVICE: 09/06/2021 This 60-year-old gentleman who was admitted with chest pain and multiple other symptomatology, shortness of breath, also had some abdominal pain. The patient had a D- dimer which was elevated at 1.84. CO2 was 43. LFTs were also elevated. Bilirubin 37 and lipase 3525. The patient was seen by multiple consultants. Abdominal CT was done at the time of admission which showed some consolidation atelectasis of the right lobe with right pleural effusion. Dr. Whittington has seen the patient and recommended no thoracocentesis at this time because of right pleural effusion, rather chronic in nature, without any definite etiology at this time. D-dimer was elevated. CT angio was recommended by Cardiology. CT angio of the chest which was done today showed right pleural effusion with right lower lobe consolidation with no evidence of pulmonary embolism. Venous Doppler study was also done which showed chronic DVT in the right femoral and popliteal veins. Past medical history reviewed. REVIEW OF SYSTEMS: CARDIOVASCULAR: No angina, palpitations. RESPIRATORY SYSTEM: As mentioned earlier. GI: As mentioned earlier. : No dysuria. NERVOUS SYSTEM: No numbness, weakness. CURRENT MEDICATIONS: Tylenol, [place], DuoNeb, Lipitor, ceftriaxone, Cardizem, Cymbalta, Lasix, Neurontin, heparin subcutaneously, aldactone. PHYSICAL EXAMINATION: Patient is alert and oriented x3. Pulse is 93, blood pressure is 100/65, respiration 18, temperature 102.5, pulse ox 92% on room air. HEENT: Conjunctivae normal. NECK: No jugular venous distention. CARDIOVASCULAR: S1, S2 muffled. RESPIRATION: Breath sounds diminished at the bases. A few scattered rhonchi and crackles. ABDOMEN: Soft, nontender. LEGS: No edema. No swelling. NERVOUS SYSTEM: No focal deficit. LABS: WBC 9.3, hemoglobin 11.3. Other labs are noted. LFTs are noted. Bilirubin has gone up to 3.7. ASSESSMENT: 1. Right-sided pleural effusion with possible right pneumonia and parapneumonic effusion with possible sepsis, present on admission. 2. Fever. 3. Acute bilateral leg cellulitis. 4. Possible acute pancreatitis. 5. Possible congestive heart failure with acute exacerbation, ejection fraction unknown. 6. Hyponatremia. 7. Elevated D-dimer with chronic deep vein thrombosis of the right leg. 8. Anemia, normocytic. 9. Elevated AST, ALT and alkaline phosphatase, possibly acute hepatitis of undetermined etiology. 10.History of atrial fibrillation. 11.History of asthma, chronic obstructive pulmonary disease. 12.History of cerebrovascular accident, transient ischemic attack. 13.Diabetes mellitus, type 2. 14.History of deep vein thrombosis. 15.History of gastroesophageal reflux disease. 16.History of gastrointestinal bleed. 17.Hypertension. 18.Hyperlipidemia. 19.History of degenerative joint disease. 20.History of pulmonary embolism. 21.History of sleep apnea. 22.History of recent right thoracocentesis. 23.History of bilateral peripheral neuropathy. 24.History of pseudoseizures with extensive past workup at [facility]. 25.History of MRSA. 26.History of appendectomy. 27.History of bariatric surgery. 28.History of anxiety, bipolar, depression, panic disorder and schizoaffective disorder. 29.Remote history of nicotine dependence. 30.Obesity with body mass index of 39.5. 31.FULL CODE. RECOMMENDATIONS AND DISCUSSION: I recommend to continue current medications, continue with symptomatic treatment. As mentioned earlier, CT angio did not show any evidence of acute pulmonary embolism, but the patient is running a fever. I would recommend empiric antibiotics, infectious disease evaluation, cultures. The possibility of underlying pneumonia is considered. The continuing pleural effusion is also a concern. The patient also had evidence of pancreatitis; associated gallbladder pathology is not ruled out. We will also consult Surgery. Prognosis is guarded because of multiple complex medical issues. Further recommendations to follow. The opinions of multiple consultants are appreciated. YARIEL / EVER: [id number] /
[2021-09-06] MEDS: ATORVASTATIN 10 MG TAB PO SCH (20:52)
[2021-09-06] MEDS: OLANZapine 10 MG TAB PO SCH (20:53)
[2021-09-06 20:55] LABS: Basophils % (A) 0 %; Eosinophils % (A) 0 %; HCT 36.7 % (39.0-53.0); HGB 11.1 gm/dL (13.0-17.5); Hypochromasia Slight; Lymphocytes # (A) 0.4 k/uL (1.0-4.8); Lymphocytes % (A) 3 %; MCH 26.8 pg (25.0-35.0); MCHC 30.3 g/dL (31.0-37.0); MCV 88.3 fL (80.0-100.0); Mean Platelet Volume 7.2; Monocytes # (A) 0.8 k/uL (0-1.0); Monocytes % (A) 5 %; Neutrophils # (A) 13.7 k/uL (1.3-7.7); Neutrophils % (A) 91 %; Platelet Count 233 k/uL (150-450); RBC 4.16 m/uL (4.30-5.90); RDW 15.5 % (11.5-15.5); WBC 15.1 k/uL (3.8-10.6)
[2021-09-06 22:11] LABS: INR 1.1 (<1.2); Partial Thromboplastin Time 47.9 sec (22.0-30.0); Prothrombin Time 11.3 sec (9.0-12.0)
[2021-09-07 03:42] LABS: Partial Thromboplastin Time 33.3 sec (22.0-30.0); Prothrombin Time 10.7 sec (9.0-12.0)
[2021-09-07 03:47] LABS: ALT 305 U/L (4-49); AST 147 U/L (17-59); African American GFR (CKD) >90 (>60 ml/min/1.73 sqM); Albumin 3.3 g/dL (3.5-5.0); Albumin/Globulin Ratio 1.1; Alkaline Phosphatase 343 U/L (38-126); Amylase 163 U/L (30-110); Anion Gap 7 mmol/L; Blood Urea Nitrogen 22 mg/dL (9-20); Carbon Dioxide 37 mmol/L (22-30); Chloride 85 mmol/L (98-107); Globulin 2.9 g/dL; Glucose 117 mg/dL (74-99); Lipase 248 U/L (23-300); Non-African American GFR(CKD) >90 (>60 ml/min/1.73 sqM); Sodium 129 mmol/L (137-145); Total Bilirubin 1.3 mg/dL (0.2-1.3); Total Protein 6.2 g/dL (6.3-8.2)
[2021-09-07] MEDS: HEPARIN SODIUM 1,000 UN/ML (10ML VL) IV PRN ×3 (03:56→21:45)
[2021-09-07] MEDS: IPRATROPIUM-ALBUTEROL 3 ML NEB INHALATION SCH ×3 (07:31→20:16)
[2021-09-07] MEDS: PANTOPRAZOLE 40 MG/10 ML VIAL IV SCH (07:46)
[2021-09-07] MEDS: MORPHINE SULFATE 4 MG/ML SYRINGE IV PRN ×3 (07:47→18:19)
[2021-09-07] MEDS: FUROSEMIDE 10 MG/ML 4 ML VIAL IV SCH ×2 (07:48→21:17)
[2021-09-07] MEDS: SPIRONOLACTONE 25 MG TAB PO SCH ×2 (07:49→21:16)
[2021-09-07] MEDS: DULoxetine HCL 60 MG CAPSULE.DR PO SCH (07:49)
[2021-09-07] MEDS: DILTIAZEM ORAL 30 MG TAB PO SCH ×3 (07:49→21:16)
[2021-09-07] MEDS: POTASSIUM CHLORIDE ER 20 MEQ TAB.ER PO SCH ×3 (07:49→21:17)
[2021-09-07] MEDS: GABAPENTIN 300 MG CAP PO SCH ×3 (07:49→21:17)
[2021-09-07 09:32] LABS: Basophils # (A) 0.03 X 10*3/uL (0.00-0.10); Basophils % (A) 0.2 %; Eosinophils # (A) 0.01 X 10*3/uL (0.04-0.35); Eosinophils % (A) 0.1 %; HGB 10.5 g/dL (13.0-17.0); Lymphocytes # (A) 0.44 X 10*3/uL (0.90-5.00); Lymphocytes % (A) 2.6 %; MCH 25.8 pg (27.0-32.0); MCHC 29.2 g/dL (32.0-37.0); MCV 88.5 fL (80.0-97.0); Mean Platelet Volume 9.9 fL (9.5-12.2); Monocytes # (A) 1.43 X 10*3/uL (0.20-1.00); Monocytes % (A) 8.5 %; Neutrophils # (A) 14.92 X 10*3/uL (1.80-7.70); Neutrophils % (A) 88.1 %; Platelet Count 245 X 10*3/uL (140-440); RBC 4.07 X 10*6/uL (4.40-5.60); RDW 15.8 % (11.5-14.5); WBC 16.92 X 10*3/uL (4.50-10.00)
--- NOTE | 2021-09-07 10:10 | P.PN ---
Subjective Progress Note Date: 09/07/21 Principal diagnosis: Pancreatitis Patient feels better today. Yesterday he had a fever T-max 102.5. Lipase improved today. Liver enzymes likewise improved. White blood cell count remains elevated however. Objective - Vital Signs Vital signs: Vital Signs Temp 99.2 F 09/07/21 07:00 Pulse 74 09/07/21 07:47 Resp 16 09/07/21 07:00 BP 144/72 09/07/21 07:00 Pulse Ox 97 09/07/21 07:00 Intake & Output 09/06/21 09/07/21 09/07/21 18:59 06:59 18:59 Intake Total 360 80.833 Output Total 400 1001 660 Balance -40 -920.167 -660 Weight 229.4 kg Intake: Intake, IV Titration 80.833 Amount Heparin Sod,Pork in 0.45% 80.833 NaCl 25,000 unit In 0.45 % NaCl 1 250ml.bag @ 4. 899 UNITS/KG/HR 10 mls/hr IV .Q24H [facility] Rx#: [id number] Oral 360 Output: Urine 400 1000 660 Stool 1 Other: Voiding Method Urinal Urinal # Voids 1 2 - Exam Abdomen: Soft, mild epigastric tenderness, no rebound or guarding - Labs CBC & Chem 7: 09/07/21 02:53 09/07/21 02:53 Labs: Abnormal Lab Results - Last 24 Hours (Table) 09/06/21 09/06/21 09/06/21 Range/Units 12:47 20:16 20:16 WBC 15.1 H (3.8-10.6) k/uL RBC 4.16 L (4.30-5.90) m/uL Hgb 11.1 L (13.0-17.5) gm/dL Hct 36.7 L (39.0-53.0) % MCH (27.0-32.0) pg MCHC 30.3 L (31.0-37.0) g/dL RDW (11.5-14.5) % Immature Gran # (0.00-0.04) X 10*3/uL Neutrophils # 13.7 H (1.3-7.7) k/uL Lymphocytes # 0.4 L (1.0-4.8) k/uL Monocytes # (0.20-1.00) X 10*3/uL Eosinophils # (0.04-0.35) X 10*3/uL APTT 47.9 H (22.0-30.0) sec D-Dimer 1.84 H (<0.60) mg/L FEU Sodium (137-145) mmol/L Chloride (98-107) mmol/L Carbon Dioxide (22-30) mmol/L BUN (9-20) mg/dL Glucose (74-99) mg/dL AST (17-59) U/L ALT (4-49) U/L Alkaline Phosphatase (38-126) U/L Total Protein (6.3-8.2) g/dL Albumin (3.5-5.0) g/dL Amylase (30-110) U/L 09/07/21 09/07/21 09/07/21 Range/Units 02:53 02:53 02:53 WBC 16.92 H (3.8-10.6) k/uL RBC 4.07 L (4.30-5.90) m/uL Hgb 10.5 L (13.0-17.5) gm/dL Hct 36.0 L (39.0-53.0) % MCH 25.8 L (27.0-32.0) pg MCHC 29.2 L (31.0-37.0) g/dL RDW 15.8 H (11.5-14.5) % Immature Gran # 0.09 H (0.00-0.04) X 10*3/uL Neutrophils # 14.92 H (1.3-7.7) k/uL Lymphocytes # 0.44 L (1.0-4.8) k/uL Monocytes # 1.43 H (0.20-1.00) X 10*3/uL Eosinophils # 0.01 L (0.04-0.35) X 10*3/uL APTT 33.3 H (22.0-30.0) sec D-Dimer (<0.60) mg/L FEU Sodium 129 L (137-145) mmol/L Chloride 85 L (98-107) mmol/L Carbon Dioxide 37 H (22-30) mmol/L BUN 22 H (9-20) mg/dL Glucose 117 H (74-99) mg/dL AST 147 H (17-59) U/L ALT 305 H (4-49) U/L Alkaline Phosphatase 343 H (38-126) U/L Total Protein 6.2 L (6.3-8.2) g/dL Albumin 3.3 L (3.5-5.0) g/dL Amylase 163 H (30-110) U/L Microbiology - Last 24 Hours (Table) 09/05/21 Unknown Gram Stain - Preliminary Leg - Left Wound Culture - Preliminary Presumptive MRSA 09/05/21 17:56 Blood Culture - Preliminary Blood No Growth after 24 hours Assessment and Plan (1) Pancreatitis Narrative/Plan: 60-year-old male with suspected gallstone pancreatitis. We'll consult GI tomorrow for evaluation of elevated liver enzymes and dilated common bile duct by CAT scan. Continue antibiotics. Recheck labs tomorrow. Current Visit: Yes Status: Acute Code(s): K85.90 - ACUTE PANCREATITIS WITHOUT NECROSIS OR INFECTION, UNSP SNOMED Code(s): 04365896
[2021-09-07] MEDS: NON FORMULARY DRUG (Buprenorphine Hcl [Belbuca] 450 MCG Film) SUBLINGUAL SCH ×2 (10:58→20:00)
[2021-09-07] MEDS ORDERED: bisacodyL 5 MG TABLET.DR PO PRN (11:32)
[2021-09-07] MEDS: DOCUSATE 100 MG CAP PO PRN (13:07)
--- NOTE | 2021-09-07 14:31 | P.PN ---
Subjective Progress Note Date: 09/07/21 Principal diagnosis: Abdominal pain This is Kevin frank NP, dictating a progress note on behalf of Dr. Borja. Patient was interviewed and examined. Patient is a pleasant 60-year-old male who initially presented to the hospital with abdominal pain and possible cholecystitis. Cardiology was consulted for the patient's congestive heart failure and complex cardiac history. Patient reports that he is always swollen, and cannot elevate his legs at home. He states that since he's been the hospital the swelling in his lower legs has improved. He does report that he is always short of breath as well. The patient is also reporting chest pain, however it is low down in his chest and is felt to be due to a current diagnosis of pancreatitis. Patient is a past medical history includes atrial fibrillation, congestive heart failure, COPD, CVA, TIA, high 2 diabetes, DVT, GERD, GI bleed, hypertension, degenerative disc disease, pulmonary embolism. Patient's home medications include duloxetine 60 mg daily, diltiazem 30 mg 3 times a day, Spiriva daily, spironolactone 25 mg twice a day, Xarelto 20 mg daily, potassium chloride 20 mEq 3 times a day, omep razole 20 mg daily, olanzapine 20 mg at bedtime, gabapentin 600 mg 3 times a day, buprenorphine 450 g sublingual, bumetanide 2 mg twice a day, and atorvastatin 10 mg at bedtime. 09/07/2021: Patient continues to complain of significant abdominal pain. Labs were reviewed and it was found the patient did not have a positive troponin, his d-dimer was 1.84 and a CTA was completed which shows no pulmonary embolism. Patient did have a venous Doppler of the lower extremities completed and was found that he had a chronic DVT in the right leg from this from all this popliteal. We did order an echocardiogram which is pending. It is felt at this time that the majority of the patient's issues are due to his other significant comorbid conditions, as well as his current acute abdominal pain. Swelling in the patient's legs is improved since yesterday. Today patient started complaining of chest pain, shortness of breath, or heart palpitations. GENERAL: Well-appearing, well-nourished and in no acute distress. NECK: Supple without JVD or thyromegaly. LUNGS: Breath sounds diminished to auscultation bilaterally. Respiration equal and unlabored. No wheezes, rales or rhonchi. HEART: Regular rate and rhythm without murmurs, rubs or gallops. S1 and S2 heard. EXTREMITIES: Normal range of motion, moderate edema bilateral lower legs, 2+ pitting. No clubbing or cyanosis. Peripheral pulses intact and strong. VITALS: [Temp 99.2, pulse 85, respirations 16, blood pressure 144/72, O2 saturation 97% on 2 L nasal cannula.] TELEMETRY: [] LABS: [White count 16.92, hemoglobin 10.5, PT 10.7, INR 1.0, APTT 32.8, d-dimer 1.84, sodium 129, potassium 4.0, B1 22, creatinine 0.87, troponin less than 0.012, BNP 677] IMPRESSION/PLAN: 1. Congestive heart failure-recommend changing IV Lasix to 40 mg by mouth twice a day, pending further decrease of pleural effusion. 2. Elevated [id number] likely due to patient's chronic right femoral/popliteal DVT. Recommend continuing to monitor respiratory status and redo CTA if necessary. 3. Hypertension-currently controlled on medication. Thank you for allowing us to participate in the care of this patient. Do not hesitate to reconsult us if the need arises. Objective - Vital Signs Vital signs: Vital Signs Temp 99.2 F 09/07/21 07:00 Pulse 72 09/07/21 11:58 Resp 16 09/07/21 07:00 BP 144/72 09/07/21 07:00 Pulse Ox 97 09/07/21 07:00 Intake & Output 09/06/21 09/07/21 09/07/21 18:59 06:59 18:59 Intake Total 360 80.833 144.301 Output Total 400 1001 1070 Balance -40 -920.167 -925.699 Weight 229.4 kg Intake: Intake, IV Titration 80.833 144.301 Amount Heparin Sod,Pork in 0.45% 80.833 144.301 NaCl 25,000 unit In 0.45 % NaCl 1 250ml.bag @ 4. 899 UNITS/KG/HR 10 mls/hr IV .Q24H [facility] Rx#: [id number] Oral 360 Output: Urine 400 1000 1070 Stool 1 Other: Voiding Method Urinal Urinal # Voids 1 1 - Labs CBC & Chem 7: 09/07/21 02:53 09/07/21 02:53 Labs: Abnormal Lab Results - Last 24 Hours (Table) 09/06/21 09/06/21 09/07/21 Range/Units 20:16 20:16 02:53 WBC 15.1 H (3.8-10.6) k/uL RBC 4.16 L (4.30-5.90) m/uL Hgb 11.1 L (13.0-17.5) gm/dL Hct 36.7 L (39.0-53.0) % MCH (27.0-32.0) pg MCHC 30.3 L (31.0-37.0) g/dL RDW (11.5-14.5) % Immature Gran # (0.00-0.04) X 10*3/uL Neutrophils # 13.7 H (1.3-7.7) k/uL Lymphocytes # 0.4 L (1.0-4.8) k/uL Monocytes # (0.20-1.00) X 10*3/uL Eosinophils # (0.04-0.35) X 10*3/uL APTT 47.9 H (22.0-30.0) sec Sodium 129 L (137-145) mmol/L Chloride 85 L (98-107) mmol/L Carbon Dioxide 37 H (22-30) mmol/L BUN 22 H (9-20) mg/dL Glucose 117 H (74-99) mg/dL AST 147 H (17-59) U/L ALT 305 H (4-49) U/L Alkaline Phosphatase 343 H (38-126) U/L Total Protein 6.2 L (6.3-8.2) g/dL Albumin 3.3 L (3.5-5.0) g/dL Amylase 163 H (30-110) U/L 09/07/21 09/07/21 09/07/21 Range/Units 02:53 02:53 10:57 WBC 16.92 H (3.8-10.6) k/uL RBC 4.07 L (4.30-5.90) m/uL Hgb 10.5 L (13.0-17.5) gm/dL Hct 36.0 L (39.0-53.0) % MCH 25.8 L (27.0-32.0) pg MCHC 29.2 L (31.0-37.0) g/dL RDW 15.8 H (11.5-14.5) % Immature Gran # 0.09 H (0.00-0.04) X 10*3/uL Neutrophils # 14.92 H (1.3-7.7) k/uL Lymphocytes # 0.44 L (1.0-4.8) k/uL Monocytes # 1.43 H (0.20-1.00) X 10*3/uL Eosinophils # 0.01 L (0.04-0.35) X 10*3/uL APTT 33.3 H 32.8 H (22.0-30.0) sec Sodium (137-145) mmol/L Chloride (98-107) mmol/L Carbon Dioxide (22-30) mmol/L BUN (9-20) mg/dL Glucose (74-99) mg/dL AST (17-59) U/L ALT (4-49) U/L Alkaline Phosphatase (38-126) U/L Total Protein (6.3-8.2) g/dL Albumin (3.5-5.0) g/dL Amylase (30-110) U/L Microbiology - Last 24 Hours (Table) 09/05/21 Unknown Gram Stain - Preliminary Leg - Left Wound Culture - Preliminary Presumptive MRSA 09/05/21 17:56 Blood Culture - Preliminary Blood No Growth after 24 hours
[2021-09-07] MEDS: HEPARIN SOD,PORK IN 0.45% NACL 25,000 UNIT in 0.45% NACL 1 250ML.BAG IV SCH (14:51)
--- NOTE | 2021-09-07 20:06 | PN ---
PROGRESS NOTE DATE OF SERVICE: 09/07/2021 This 60-year-old gentleman who was admitted with multiple medical problems had right pleural effusion. Patient also had possible right pneumonia and parapneumonic effusion. Patient had elevated D-dimer and a venous Doppler was done which showed possibly some chronic DVT of the right femoral and popliteal vein. The patient was started on IV heparin. Patient being closely monitored at this time. PAST MEDICAL HISTORY: Reviewed. REVIEW OF SYSTEMS: CARDIOVASCULAR system: No angina or palpitations. Respiration: As mentioned earlier. GI as mentioned earlier. no dysuria. Nervous system: No numbness or weakness. CURRENT MEDICATIONS: Reviewed and include: Tylenol, [place], DuoNeb, Dulcolax, Rocephin, other medications are reviewed. PHYSICAL EXAMINATION: Patient is alert, oriented x 2. Pulse 91, blood pressure 130/60, respirations 16, temperature 99 degrees, pulse ox 95 percent on 2 L. HEENT: Conjunctivae normal. Neck is no JVD. Cardiovascular: S1, S2 muffled. Respiration: Breath sounds diminished in the bases. A few scattered rhonchi. No crackles. ABDOMEN: Soft, obese, nontender. Legs: Bilateral leg edema. Nervous System: No focal deficits. LABS: WBC 16.8, hemoglobin 10.5. D-dimer is 1.84. LFTs are noted. Lipase is 248, procalcitonin 0.72. ASSESSMENT: 1. Right-sided pleural effusion with possible right pneumonia and parapneumonic effusion with possible sepsis, present on admission. 2. Fever. 3. Acute bilateral leg cellulitis. 4. Possible acute pancreatitis related to gallbladder pathology. 5. Possible congestive heart failure, acute exacerbation, ejection fraction unknown. 6. Hyponatremia. 7. Elevated D-dimer with chronic DVT of the right leg on IV heparin. 8. Anemia, normocytic. 9. Elevated AST, ALT, alkaline phosphatase, possibly acute hepatitis of undetermined etiology. 10.History of atrial fibrillation. 11.History of asthma/chronic obstructive pulmonary disease. 12.History of cerebrovascular accident, transient ischemic attack. 13.Diabetes type 2. 14.History of deep vein thrombosis. 15.History of GERD. 16.History of gastrointestinal bleed. 17.Hypertension. 18.Hyperlipidemia. 19.Degenerative joint disease. 20.History of pulmonary embolism. 21.History of sleep apnea. 22.History of recent right thoracocentesis. 23.History of bilateral peripheral neuropathy. 24.History of pseudoseizures with extensive past workup at [facility]. 25.History of MRSA. 26.History of appendectomy. 27.History of bariatric surgery. 28.Anxiety, bipolar depression, panic disorder, schizoaffective disorder. 29.Remote history of nicotine dependence. 30.Obesity with body mass index of 39.5. 31.FULL CODE. RECOMMENDATIONS AND DISCUSSION: Recommend to continue current medications, management and symptomatic treatment. Otherwise, IV heparin is initiated. Otherwise, repeat labs. LFTs are fluctuating. The patient did not have any history of cholecystectomy. The patient has history of gastric sleeve. I would recommend ultrasound of the gallbladder. Multiple consultants are following the patient closely. Further recommendations to follow. MMODL / IJN: [id number] /
[2021-09-07] MEDS: ATORVASTATIN 10 MG TAB PO SCH (21:16)
[2021-09-07] MEDS: OLANZapine 10 MG TAB PO SCH (21:16)
[2021-09-07] MEDS: ACETAMINOPHEN TAB 325 MG TAB PO PRN (21:17)
[2021-09-08] MEDS: MORPHINE SULFATE 4 MG/ML SYRINGE IV PRN ×4 (02:25→19:44)
[2021-09-08] MEDS: IPRATROPIUM-ALBUTEROL 3 ML NEB INHALATION PRN (02:48)
[2021-09-08 05:23] LABS: ALT 208 U/L (4-49); AST 58 U/L (17-59); African American GFR (CKD) >90 (>60 ml/min/1.73 sqM); Albumin 3.2 g/dL (3.5-5.0); Alkaline Phosphatase 300 U/L (38-126); Blood Urea Nitrogen 15 mg/dL (9-20); Calcium 9.2 mg/dL (8.4-10.2); Chloride 86 mmol/L (98-107); Globulin 3.1 g/dL; Glucose 153 mg/dL (74-99); Non-African American GFR(CKD) >90 (>60 ml/min/1.73 sqM); Potassium 3.5 mmol/L (3.5-5.1); Sodium 132 mmol/L (137-145); Total Bilirubin 0.8 mg/dL (0.2-1.3); Total Protein 6.3 g/dL (6.3-8.2)
[2021-09-08 05:30] LABS: Anion Gap 9 mmol/L; Carbon Dioxide 37 mmol/L (22-30)
[2021-09-08] MEDS: IPRATROPIUM-ALBUTEROL 3 ML NEB INHALATION SCH ×3 (07:13→19:11)
--- NOTE | 2021-09-08 07:24 | P.CONS ---
History of Present Illness - Reason for Consult Consult date: 09/07/21 pneumonia/empyema/sepsis Requesting physician: Lakshmi Salazar - Chief Complaint abd pain x 1 day - History of Present Illness History of present illness : Patient is 60-year-old male morbidly obese presented to the hospital 2 days ago for evaluation of abdominal pain which has been mostly epigastric and right upper quadrant area patient described the pain to be sharp almost 7-9 out of 10 no radiation with associated nausea but no vomiting and was complaining of shortness of breath with episodes of the pain in the back to daily breath with the symptom the patient has been evaluated by the ER physician on arrival to the ER patient was afebrile however the malika ent started spiking fever yesterday morning with a temperature of 102.5 degree for night patient did not have significant tachycardia did have a normal white count on admission however has been trending up up to 16.92 today D-dimer was mildly elevated creatinine is normal liver enzymes are elevated procalcitonin 0.72 urine is negative urine drug screen was positive for opiates anthony PCR was negative patient did have a CT of abdominal pelvis with evidence of right lower lobe atelectasis mild ectasia of the biliary tree could relate to gallbladder dysfunction no obstructive lesion seen in the common bile duct patient did have a HIDA scan nonvisualization of the bile duct bowel or gallbladder after 3-hour patient did have a CT of the chest that was negative for PE right pleural effusion with right lower lobe consolidation and atelectasis patient is currently being treated with Rocephin 1 g daily infectious disease was consulted concerning for sepsis pneumonia and empyema patient also have a superficial ulceration to the left leg in this patient currently with no pain swelling redness to that area superficial cultures have been obtained which are now showing presumptive MRSA Review of system: CONSTITUTIONAL: Positive for weakness along with the fever. EYES: No complaint. ENT: No complaint. RESPIRATORY: No complaint. CARDIOVASCULAR: No complaint. GENITOURINARY: No complaint. GASTROINTESTINAL: As per history of present illness. MUSCULOSKELETAL: No complaint. INTEGUMENTARY: No complaint. PSYCHOLOGIC: No complaint. ENDOCRINE: No complaint. NEUROLOGIC: No complaint. Past medical history : Reviewed, documented below Past surgical history : Reviewed, documented below Social history: Reviewed, documented below Medications: Reviewed, as documented below EXAMINATION: Vital sigans= Reviewed and documented below GENERAL DESCRIPTION: Middle-aged male lying in bed, no distress. No tachypnea or accessory muscle of respiration use. HEENT: Shows Pallor , no scleral icterus. Oral mucous membrane is dry. NECK: Trachea central, no thyromegaly. LUNGS: Unlabored breathing. Decreased breath sound at the base. No wheeze or crackle. HEART: S1, S2, regular rate and rhythm. ABDOMEN: Soft, no tenderness , guarding or rigidity EXTREMITIES: Diffuse swelling to lower extremity with superficial ulceration of the left leg with no redness or any drainage. SKIN: No rash, no masses palpable. NEUROLOGICAL: The patient is awake, alert, oriented x3, mood and affect normal. LABS AND RADIOLOGY: Reviewed results see below Assessment : Patient with sepsis in this patient who did have fever elevated white count presented to hospital with acute abdominal pain to the epigastric and right upper quadrant area likely secondary to the gallstone pancreatitis, with abnormality seen on the right lower lobe could be sympathetic effusion as the patient currently do not have significant respiratory symptoms of cough or sputum production to be suspicious for pneumonia or empyema 2-left leg wound superficial with no cellulitis positive culture likely representing colonization 3-Zosyn allergies that would limit number of antibiotics safe to use Plan: 1-discontinue Rocephin 2-start the patient on cefepime 2 g every 8 hour 3-await definite surgical procedure for cellulitis and gallstone pancreatitis We will follow on clinical condition and cultures to further adjust medication if needed Thank you for this consultation we will follow the patient along with you Past Medical History Past Medical History: Atrial Fibrillation, Asthma, Cancer, Heart Failure, COPD, CVA/TIA, Diabetes Mellitus, Deep Vein Thrombosis (DVT), GERD/Reflux, GI Bleed, Hyperlipidemia, Hypertension, Osteoarthritis (OA), Pneumonia, Pulmonary Embolus (PE), Renal Disease, Respiratory Disorder, Sleep Apnea/CPAP/BIPAP Additional Past Medical History / Comment(s): Pt recently admitted to [facility] on 08/05/19 with acute on chronic CHF/abnormal ECHO-see report/paroxysmal afib/bilateral pleural effusions with R sided thoracentesis. Other hx: Pt d enies diabetes stating he has hypoglycemia/pt recently transfered to [facility] for endocrinology consultation-states he wasn't told anything new, states he has bilateral feet neuropathy, colitis, chronic diffuse abdominal pain, chronic generalized pain, fluid retention, bedbound, lower GI bleed, hiatal hernia, DVT in leg which traveled to his lung, DDD, scoliosis, ALEXIS without device, CKD stage III, pseudoseizures with past extensive work up thru [facility], basal cell skin cancer removed from face. History of Any Multi-Drug Resistant Organisms: C-DIFF, MRSA Year Discovered:: mrsa 2018, c-diff 2018 MDRO Source:: sputum, stool Past Surgical History: Appendectomy, Bariatric Surgery, Heart Catheterization, Hernia Repair, Joint Replacement, Orthopedic Surgery Additional Past Surgical History / Comment(s): Gastric sleeve in 2014, L inguinal hernia repair, R elbow surgery x2, total R hip arthroplasty, L knee arthroscopy/ACL surgery, R ankle ORIF, EGD, colonoscopy, basal cell skin cancer from face, surgery for varicele. Past Anesthesia/Blood Transfusion Reactions: Previous Problems w/ Anesthesia Additional Past Anesthesia/Blood Transfusion Reaction / Comm: STATES HE WAS TOLD HE WAS A DIFFICULT INTUBATION WITH GASTRIC SLEEVE SURGERY, Past Psychological History: Anxiety, Bipolar, Depression, Panic Disorder, Schizoaffective Disorder Additional Psychological History / Comment(s): Pt resides with his son. states his home care services just stopped 09/06/19 He states he has been bedbound past few months. Pt states he gets paranoid at times. Smoking Status: Former smoker Past Alcohol Use History: None Reported Additional Past Alcohol Use History / Comment(s): STARTED SMOKING AT AGE 15 QUIT SMOKING 1998, smoked 4 cigerettes- 1PPD FORMER ETOH ABUSE. Pt states QUIT 2012 Past Drug Use History: None Reported Additional Drug Use History / Comment(s): PAST HX OF MARIJUANA USE, DENIES USE IN YEARS. - Past Family History Father Family Medical History: Cancer Additional Family Medical History / Comment(s): LUNG CA Mother Family Medical History: Coronary Artery Disease (CAD) Additional Family Medical History / Comment(s): Mother of an infection. Medications and Allergies Home Medications Medication Instructions Recorded Confirmed Type Rivaroxaban [Xarelto] 20 mg PO DAILY 07/14/19 09/05/21 History dilTIAZem HCL [Diltiazem HCl] 30 mg PO TID 07/15/19 09/05/21 History Atorvastatin [Lipitor] 10 mg PO HS 08/03/19 09/05/21 History OLANZapine 20 mg PO HS 10/29/20 09/05/21 History Omeprazole 20 mg PO DAILY 03/27/21 09/05/21 History Potassium Chloride ER [K-Dur 20] 20 meq PO TID 03/27/21 09/05/21 History Tiotropium 18 Mcg/Puff [Spiriva] 1 puff INHALATION RT-DAILY 03/27/21 09/05/21 History Bumetanide 2 mg PO BID 09/05/21 09/05/21 History Buprenorphine HCl [Belbuca] 450 mcg SL BID 09/05/21 09/05/21 History DULoxetine HCL [Cymbalta] 60 mg PO DAILY 09/05/21 09/05/21 History Gabapentin 600 mg PO TID 09/05/21 09/05/21 History Spironolactone [Aldactone] 25 mg PO BID 09/05/21 09/05/21 History Allergies Allergy/AdvReac Type Severity Reaction Status Date / Time codeine Allergy Severe Swelling Verified 09/05/21 07:29 OF THROAT WITH COUGH SYRUP chlorpheniramine Allergy Unknown Verified 09/05/21 07:29 febuxostat [From Uloric] Allergy Unknown Verified 09/05/21 07:29 phenylephrine Allergy Unknown Verified 09/05/21 07:29 piperacillin sodium Allergy Unknown Verified 09/05/21 07:29 [From Zosyn] sulfamethoxazole Allergy Unknown Verified 09/05/21 07:29 [From Bactrim] tazobactam sodium Allergy Unknown Verified 09/05/21 07:29 [From Zosyn] trimethoprim [From Bactrim] Allergy Unknown Verified 09/05/21 07:29 buspirone [From BuSpar] AdvReac Rapid Verified 09/05/21 07:29 Heart Rate Physical Exam Vitals: Vital Signs Temp Pulse Pulse Resp BP Pulse Ox 09/07/21 15:29 99.0 F 91 16 139/62 94 L 09/07/21 11:58 72 09/07/21 11:41 66 09/07/21 07:47 74 09/07/21 07:32 72 09/07/21 07:00 99.2 F 85 16 144/72 97 09/07/21 01:47 98.8 F 79 18 115/63 93 L 09/06/21 20:16 80 09/06/21 20:01 78 09/06/21 19:59 99.4 F 86 16 126/72 97 09/06/21 18:03 99.7 F H Intake and Output 09/07/21 09/07/21 09/07/21 06:59 14:59 22:59 Intake Total 80.833 169.167 Output Total 300 1070 Balance -219.167 -900.833 Intake: Intake, IV Titration 80.833 169.167 Amount Heparin Sod,Pork in 0.45% 80.833 169.167 NaCl 25,000 unit In 0.45 % NaCl 1 250ml.bag @ 4. 899 UNITS/KG/HR 10 mls/hr IV .Q24H [facility] Rx#: [id number] Output: Urine 300 1070 Other: Voiding Method Urinal # Voids 1 1 Weight 229.4 kg Results CBC & Chem 7: 09/07/21 02:53 09/08/21 04:37 Labs: Abnormal Lab Results - Last 24 Hours (Table) 09/06/21 09/06/21 09/07/21 Range/Units 20:16 20:16 02:53 WBC 15.1 H (3.8-10.6) k/uL RBC 4.16 L (4.30-5.90) m/uL Hgb 11.1 L (13.0-17.5) gm/dL Hct 36.7 L (39.0-53.0) % MCH (27.0-32.0) pg MCHC 30.3 L (31.0-37.0) g/dL RDW (11.5-14.5) % Immature Gran # (0.00-0.04) X 10*3/uL Neutrophils # 13.7 H (1.3-7.7) k/uL Lymphocytes # 0.4 L (1.0-4.8) k/uL Monocytes # (0.20-1.00) X 10*3/uL Eosinophils # (0.04-0.35) X 10*3/uL APTT 47.9 H (22.0-30.0) sec Sodium (137-145) mmol/L Chloride (98-107) mmol/L Carbon Dioxide (22-30) mmol/L BUN (9-20) mg/dL Glucose (74-99) mg/dL AST (17-59) U/L ALT (4-49) U/L Alkaline Phosphatase (38-126) U/L Total Protein (6.3-8.2) g/dL Albumin (3.5-5.0) g/dL Amylase (30-110) U/L Procalcitonin 0.72 H (0.02-0.09) ng/mL 09/07/21 09/07/21 09/07/21 Range/Units 02:53 02:53 02:53 WBC 16.92 H (3.8-10.6) k/uL RBC 4.07 L (4.30-5.90) m/uL Hgb 10.5 L (13.0-17.5) gm/dL Hct 36.0 L (39.0-53.0) % MCH 25.8 L (27.0-32.0) pg MCHC 29.2 L (31.0-37.0) g/dL RDW 15.8 H (11.5-14.5) % Immature Gran # 0.09 H (0.00-0.04) X 10*3/uL Neutrophils # 14.92 H (1.3-7.7) k/uL Lymphocytes # 0.44 L (1.0-4.8) k/uL Monocytes # 1.43 H (0.20-1.00) X 10*3/uL Eosinophils # 0.01 L (0.04-0.35) X 10*3/uL APTT 33.3 H (22.0-30.0) sec Sodium 129 L (137-145) mmol/L Chloride 85 L (98-107) mmol/L Carbon Dioxide 37 H (22-30) mmol/L BUN 22 H (9-20) mg/dL Glucose 117 H (74-99) mg/dL AST 147 H (17-59) U/L ALT 305 H (4-49) U/L Alkaline Phosphatase 343 H (38-126) U/L Total Protein 6.2 L (6.3-8.2) g/dL Albumin 3.3 L (3.5-5.0) g/dL Amylase 163 H (30-110) U/L Procalcitonin (0.02-0.09) ng/mL 09/07/21 Range/Units 10:57 WBC (3.8-10.6) k/uL RBC (4.30-5.90) m/uL Hgb (13.0-17.5) gm/dL Hct (39.0-53.0) % MCH (27.0-32.0) pg MCHC (31.0-37.0) g/dL RDW (11.5-14.5) % Immature Gran # (0.00-0.04) X 10*3/uL Neutrophils # (1.3-7.7) k/uL Lymphocytes # (1.0-4.8) k/uL Monocytes # (0.20-1.00) X 10*3/uL Eosinophils # (0.04-0.35) X 10*3/uL APTT 32.8 H (22.0-30.0) sec Sodium (137-145) mmol/L Chloride (98-107) mmol/L Carbon Dioxide (22-30) mmol/L BUN (9-20) mg/dL Glucose (74-99) mg/dL AST (17-59) U/L ALT (4-49) U/L Alkaline Phosphatase (38-126) U/L Total Protein (6.3-8.2) g/dL Albumin (3.5-5.0) g/dL Amylase (30-110) U/L Procalcitonin (0.02-0.09) ng/mL Microbiology - Last 24 Hours (Table) 09/05/21 Unknown Gram Stain - Preliminary Leg - Left Wound Culture - Preliminary Presumptive MRSA 09/05/21 17:56 Blood Culture - Preliminary Blood No Growth after 24 hours
[2021-09-08] MEDS: FUROSEMIDE 10 MG/ML 4 ML VIAL IV SCH (08:04)
[2021-09-08] MEDS: DULoxetine HCL 60 MG CAPSULE.DR PO SCH (08:05)
[2021-09-08] MEDS: POTASSIUM CHLORIDE ER 20 MEQ TAB.ER PO SCH ×3 (08:05→22:09)
[2021-09-08] MEDS: SPIRONOLACTONE 25 MG TAB PO SCH ×2 (08:05→22:09)
[2021-09-08] MEDS: GABAPENTIN 300 MG CAP PO SCH ×3 (08:05→22:09)
[2021-09-08] MEDS: PANTOPRAZOLE 40 MG TABLET PO SCH (08:05)
[2021-09-08] MEDS: DILTIAZEM ORAL 30 MG TAB PO SCH ×3 (08:05→22:09)
[2021-09-08] MEDS: CEFEPIME 2 GM in SODIUM CHLORIDE 0.9% 100 ML IVPB SCH ×2 (08:06→16:49)
[2021-09-08 09:18] LABS: Basophils # (A) 0.03 X 10*3/uL (0.00-0.10); Basophils % (A) 0.2 %; Eosinophils # (A) 0.04 X 10*3/uL (0.04-0.35); Eosinophils % (A) 0.3 %; HCT 34.8 % (39.6-50.0); HGB 10.3 g/dL (13.0-17.0); Lymphocytes # (A) 0.66 X 10*3/uL (0.90-5.00); Lymphocytes % (A) 5.3 %; MCH 26.3 pg (27.0-32.0); MCHC 29.6 g/dL (32.0-37.0); Mean Platelet Volume 9.8 fL (9.5-12.2); Monocytes % (A) 5.6 %; Neutrophils # (A) 10.95 X 10*3/uL (1.80-7.70); Neutrophils % (A) 87.4 %; Platelet Count 235 X 10*3/uL (140-440); RBC 3.91 X 10*6/uL (4.40-5.60); RDW 15.9 % (11.5-14.5); WBC 12.53 X 10*3/uL (4.50-10.00)
--- NOTE | 2021-09-08 11:13 | P.PN ---
Subjective Patient is a pleasant 60-year-old male with a past medical history of atrial fibrillation, congestive heart failure, COPD, CVA, TIA, type 2 diabetes, DVT, GERD, GI bleed, hypertension, degenerative disc disease, pulmonary embolism who initially presented to the hospital with abdominal pain and possible cholecystitis. No history of CAD normal coronary arteries on cath in 2013. Cardiology was consulted for the patient's congestive heart failure and complex cardiac history. Patient follows with Dr. Borja. Patient reports that he is always swollen, and cannot elevate his legs at home. He states that since he's been the hospital the swelling in his lower legs has improved. He does report that he is always short of breath as well. The patient is also reporting chest pain, however it is low down in his chest and is felt to be due to a current diagnosis of pancreatitis. D-dimer was 1.84 and a CTA was completed which shows no pulmonary embolism, right pleural effusion, right lower lobe consolidation and atelectasis. Patient did have a venous Doppler of the lower extremities completed and was found that he had a chronic DVT in the right leg from this from all this popliteal. Most recent echocardiogram was 10/2020 with EF 5560%, mild aortic regurgitation 09/08/2021: Patient continues to complain of significant abdominal pain. Swelling in the patient's legs has improved. Patient started having shortness of breath, chest pain, lightheadedness, dizziness, palpitations. He's currently maintained on IV Lasix 40 mg twice a day, atorvastatin 10 mg daily, Cardizem 30 mg 3 times a day, IV heparin drip (Xarelto being held), spironolactone 25 mg twice a day. Patient with 1.7 L urine output over the past 24 hours. Laboratory data review WBC 12.5, hemoglobin 10.3, platelets 235, sodium 132, potassium 3.5, BUNs 15, serum pregna ncy 0.7, AST 58, PLT 208, alkaline phosphatase 300, amylase 163 Blood pressure 123/75, heart rate 74, Temp 99F, maintaining oxygen saturations on 2 L nasal cannula GENERAL: Well-appearing, well-nourished and in no acute distress. NECK: Supple without JVD or thyromegaly. LUNGS: Breath sounds diminished to auscultation bilaterally. Respiration equal and unlabored. No wheezes, rales or rhonchi. HEART: Regular rate and rhythm without murmurs, rubs or gallops. S1 and S2 heard. EXTREMITIES: Normal range of motion, moderate edema bilateral lower legs, 2+ pitting. No clubbing or cyanosis. Peripheral pulses intact and strong. ASSESSMENT: Acute on chronic diastolic heart failure Concern for right lower lobe pneumonia on CT scan Leukocytosis Fevers Hypertension Paroxysmal atrial fibrillation on Xarelto COPD History of CVA/TIA Type 2 Diabetes History of DVT GERD PLAN: 2D echo read pending Plan for GI consult to evaluate for suspected gallstone pancreatitis Start Metoprolol tartrate 25 mg twice a day Transition to PO Lasix 40mg BID Continue Cardizem, statin, and spironolactone Thank you for allowing us to participate in the care of this patient. Do not hesitate to reconsult us if the need arises. Objective - Vital Signs Vital signs: Vital Signs Temp 99 F 09/08/21 07:00 Pulse 72 09/08/21 10:55 Resp 20 09/08/21 07:00 BP 123/75 09/08/21 07:00 Pulse Ox 98 09/08/21 07:00 Intake & Output 09/07/21 09/08/21 09/08/21 18:59 06:59 18:59 Intake Total 169.167 152.021 120 Output Total 1070 701 950 Balance -900.833 -548.979 -830 Weight 229.336 kg Intake: Intake, IV Titration 169.167 152.021 Amount Heparin Sod,Pork in 0.45% 169.167 152.021 NaCl 25,000 unit In 0.45 % NaCl 1 250ml.bag @ 4. 899 UNITS/KG/HR 10 mls/hr IV .Q24H [facility] Rx#: [id number] Oral 120 Output: Urine 1070 700 950 Stool 1 Other: Voiding Method Urinal # Voids 1 1 - Labs CBC & Chem 7: 09/08/21 04:37 09/08/21 04:37 Labs: Abnormal Lab Results - Last 24 Hours (Table) 09/07/21 09/07/21 09/07/21 Range/Units 02:53 10:57 20:36 WBC (4.50-10.00) X 10*3/uL RBC (4.40-5.60) X 10*6/uL Hgb (13.0-17.0) g/dL Hct (39.6-50.0) % MCH (27.0-32.0) pg MCHC (32.0-37.0) g/dL RDW (11.5-14.5) % Immature Gran # (0.00-0.04) X 10*3/uL Neutrophils # (1.80-7.70) X 10*3/uL Lymphocytes # (0.90-5.00) X 10*3/uL APTT 32.8 H 39.9 H (22.0-30.0) sec Sodium (137-145) mmol/L Chloride (98-107) mmol/L Carbon Dioxide (22-30) mmol/L Glucose (74-99) mg/dL ALT (4-49) U/L Alkaline Phosphatase (38-126) U/L Albumin (3.5-5.0) g/dL Procalcitonin 0.72 H (0.02-0.09) ng/mL 09/08/21 09/08/21 09/08/21 Range/Units 04:37 04:37 04:37 WBC 12.53 H (4.50-10.00) X 10*3/uL RBC 3.91 L (4.40-5.60) X 10*6/uL Hgb 10.3 L (13.0-17.0) g/dL Hct 34.8 L (39.6-50.0) % MCH 26.3 L (27.0-32.0) pg MCHC 29.6 L (32.0-37.0) g/dL RDW 15.9 H (11.5-14.5) % Immature Gran # 0.15 H (0.00-0.04) X 10*3/uL Neutrophils # 10.95 H (1.80-7.70) X 10*3/uL Lymphocytes # 0.66 L (0.90-5.00) X 10*3/uL APTT 43.9 H (22.0-30.0) sec Sodium 132 L (137-145) mmol/L Chloride 86 L (98-107) mmol/L Carbon Dioxide 37 H (22-30) mmol/L Glucose 153 H (74-99) mg/dL ALT 208 H (4-49) U/L Alkaline Phosphatase 300 H (38-126) U/L Albumin 3.2 L (3.5-5.0) g/dL Procalcitonin (0.02-0.09) ng/mL Microbiology - Last 24 Hours (Table) 09/06/21 20:16 Blood Culture - Preliminary Blood No Growth after 24 hours 09/05/21 Unknown Gram Stain - Final Leg - Left Wound Culture - Final Methicillin resist S. aureus 09/05/21 17:56 Blood Culture - Preliminary Blood No Growth after 48 hours
--- NOTE | 2021-09-08 12:00 | ECHOF ---
Referral Reason:Congestive heart failure MEASUREMENTS -------- HEIGHT: 185.4 cm WEIGHT: 229.1 kg BP: 123/75 RVIDd: 3.8 cm (< 3.3) IVSd: 1.6 cm (0.6 - 1.1) LVIDd: 5.2 cm (3.9 - 5.3) LVPWd: 2.0 cm (0.6 - 1.1) IVSs: 2.2 cm LVIDs: 4.3 cm LVPWs: 2.4 cm LA Diam: 4.7 cm (2.7 - 3.8) LAESV Index (A-L): 35.92 ml/m Ao Diam: 4.7 cm (2.0 - 3.7) AV Cusp: 3.2 cm (1.5 - 2.6) MV EXCURSION: 21.568 mm (> 18.000) MV EF SLOPE: 50 mm/s (70 - 150) EPSS: 0.5 cm MV E Angel: 0.77 m/s MV DecT: 260 ms MV A Angel: 0.82 m/s MV E/A Ratio: 0.94 AV maxP.56 mmHg AV meanP.46 mmHg RAP: 5.00 mmHg RVSP: 47.40 mmHg FINDINGS -------- Sinus rhythm. This was a technically adequate study. The left ventricular size is normal. There is severe concentric left ventricular hypertrophy. Ove rall left ventricular systolic function is low-normal with, an EF between 50 - 55 %. The right ventricle is mild to moderately enlarged. LA is moderately dilated 34-39 ml/m2 The right atrium is normal in size. Aneurysmal Interatrial septum. There is mild aortic valve sclerosis. Trace to mild aortic regurgitation. Peak/mean gradient acro ss the Aortic Valve is 12.56mmHg / 5.46mmHg. There is trace to mild mitral regurgitation. Mild tricuspid regurgitation present. There is moderate pulmonary hypertension. The right ventric ular systolic pressure, as measured by Doppler, is 47.40mmHg. The pulmonic valve was not well visualized. The aortic root is dilated measuring 4.7cm. IVC Not well visulized. There is no pericardial effusion. CONCLUSIONS -------- 1. The left ventricular size is normal. 2. There is severe concentric left ventricular hypertrophy. 3. Overall left ventricular systolic function is low-normal with, an EF between 50 - 55 %. 4. The right ventricle is mild to moderately enlarged. 5. LA is moderately dilated 34-39 ml/m2 6. Aneurysmal Interatrial septum. 7. There is mild aortic valve sclerosis. 8. Trace to mild aortic regurgitation. 9. Peak/mean gradient across the Aortic Valve is 12.56mmHg / 5.46mmHg. 10. There is trace to mild mitral regurgitation. 11. Mild tricuspid regurgitation present. 12. There is moderate pulmonary hypertension. 13. The right ventricular systolic pressure, as measured by Doppler, is 47.40mmHg. 14. The aortic root is dilated measuring 4.7cm. 15. There is no pericardial effusion. MANAGER LANGUAGE: JOELLE Cherry
[2021-09-08] MEDS: DOCUSATE 100 MG CAP PO PRN (12:12)
[2021-09-08] MEDS: METOPROLOL TARTRATE 25 MG TAB PO SCH ×2 (12:12→22:09)
[2021-09-08] MEDS: NON FORMULARY DRUG (Buprenorphine Hcl [Belbuca] 450 MCG Film) SUBLINGUAL SCH ×2 (12:13→22:08)
[2021-09-08] MEDS: polyethylene glycoL 3350 17 GM POWD.PACK PO SCH (12:13)
--- NOTE | 2021-09-08 14:29 | P.CONS ---
History of Present Illness - Reason for Consult Consult date: 09/08/21 Dilated common bile duct Requesting physician: Ulysses Hitchcock - Chief Complaint Abdominal pain - History of Present Illness This is a 60-year-old male patient with multiple comorbidities including morbid obesity status post bariatric surgery, atrial fibrillation, heart failure, COPD, diabetes mellitus, DVT, GERD, hyperlipidemia, hypertension, pneumonia, history of PE, chronic kidney disease, obstructive sleep apnea on CPAP who presented to the emergency department 3 days ago with complaints of epigastric and right upper quadrant pain associated with shortness of breath. Gen. surgery has been on consult and following patient they consulted gastroenterology for dilated common bile duct. The patient was noted to have acute elevation in his LFTs. He denies any previous history of liver disease, however states he has had a significant history of alcoholism and admits to drinking a case of beer a day may be more. States he quit 6-7 years ago. Admission he had a CT of the abdomen and pelvis that showed some consolidation and atelectasis in the right lower lobe with right pleural effusion. Mild ectasia of the biliary tree. Bile ducts not significantly different than old exam. This could relate to gallbladder dysfunction. Abnormality in the right lower lobe not changed significantly compared to old exam. No obstructing lesion seen of the common bile duct. He also underwent ultrasound of the gallbladder that showed no CBD dilation, CBD 0.4 cm, and no obvious gallstones or hydropic gallbladder change, limited assessment of the liver however it appears hypoechoic. He also underwent a HIDA scan that showed no visualization of the bile ducts, bowel, or gallbladder up to 3 hours. Given delayed clearance of tracer from the blood pool, consider poor liver function secondary to active inflammation/hepatitis. Correlate with LFTs and patient risk factors. On admission total bilirubin 0.8 AST 240 ALT 172 alk phos 259, lipase 3525. Repeat lipase 248. LFTs are trending down. Today's repeat total bilirubin 0.8 AST 58 ALT 208 alk phos 300. Review of Systems REVIEW OF SYSTEMS: CARDIOPULMONARY: No chest pain or shortness of breath. Gastrointestinal: Right upper quadrant and epigastric pain. No nausea or vomiting. No hematemesis, coffee-ground emesis. No rectal bleeding, or melena. GENITOURINARY: No dysuria or hematuria. MUSCULOSKELETAL: Reports normal range of motion., Joint pain. SKIN: No rashes. No jaundice. ENDOCRINE: No chills, fevers. No excessive weight gain or loss. No polydipsia or polyuria. PSYCHIATRIC: Unremarkable. NEUROLOGY: No change in mental status. Denies dizziness, headache. ENT: Vision unremarkable. CONSTITUTIONAL: No recent weight loss. No fever, chills, night sweats. Past Medical History Past Medical History: Atrial Fibrillation, Asthma, Cancer, Heart Failure, COPD, CVA/TIA, Diabetes Mellitus, Deep Vein Thrombosis (DVT), GERD/Reflux, GI Bleed, Hyperlipidemia, Hypertension, Osteoarthritis (OA), Pneumonia, Pulmonary Embolus (PE), Renal Disease, Respiratory Disorder, Sleep Apnea/CPAP/BIPAP Additional Past Medical History / Comment(s): Pt recently admitted to [facility] on 08/05/19 with acute on chronic CHF/abnormal ECHO-see report/paroxysmal afib/bilateral pleural effusions with R sided thoracentesis. Other hx: Pt denies diabetes stating he has hypoglycemia/pt recently transfered to [facility] for endocrinology consultation-states he wasn't told anything new, states he has bilateral feet neuropathy, colitis, chronic diffuse abdominal pain, chronic generalized pain, fluid retention, bedbound, lower GI bleed, hiatal hernia, DVT in leg which traveled to his lung, DDD, scoliosis, ALEXIS without device, CKD stage III, pseudoseizures with past extensive work up thru [facility], basal cell skin cancer removed from face. History of Any Multi-Drug Resistant Organisms: C-DIFF, MRSA Year Discovered:: mrsa 2019, c-diff 2019 MDRO Source:: sputum, stool Past Surgical History: Appendectomy, Bariatric Surgery, Heart Catheterization, Hernia Repair, Joint Replacement, Orthopedic Surgery Additional Past Surgical History / Comment(s): Gastric sleeve in 2014, L inguinal hernia repair, R elbow surgery x2, total R hip arthroplasty, L knee arthroscopy/ACL surgery, R ankle ORIF, EGD, colonoscopy, basal cell skin cancer from face, surgery for varicele. Past Anesthesia/Blood Transfusion Reactions: Previous Problems w/ Anesthesia Additional Past Anesthesia/Blood Transfusion Reaction / Comm: STATES HE WAS TOLD HE WAS A DIFFICULT INTUBATION WITH GASTRIC SLEEVE SURGERY, Past Psychological History: Anxiety, Bipolar, Depression, Panic Disorder, Schizoaffective Disorder Additional Psychological History / Comment(s): Pt resides with his son. states his home care services just stopped 09/06/19 He states he has been bedbound past few months. Pt states he gets paranoid at times. Smoking Status: Former smoker Past Alcohol Use History: None Reported Additional Past Alcohol Use History / Comment(s): STARTED SMOKING AT AGE 15 QUIT SMOKING 1998, smoked 4 cigerettes- 1PPD FORMER ETOH ABUSE. Pt states QUIT 2012 Past Drug Use History: None Reported Additional Drug Use History / Comment(s): PAST HX OF MARIJUANA USE, DENIES USE IN YEARS. - Past Family History Father Family Medical History: Cancer Additional Family Medical History / Comment(s): LUNG CA Mother Family Medical History: Coronary Artery Disease (CAD) Additional Family Medical History / Comment(s): Mother of an infection. Medications and Allergies Home Medications Medication Instructions Recorded Confirmed Type Rivaroxaban [Xarelto] 20 mg PO DAILY 07/14/19 09/05/21 History dilTIAZem HCL [Diltiazem HCl] 30 mg PO TID 07/15/19 09/05/21 History Atorvastatin [Lipitor] 10 mg PO HS 08/03/19 09/05/21 History OLANZapine 20 mg PO HS 10/29/20 09/05/21 History Omeprazole 20 mg PO DAILY 03/27/21 09/05/21 History Potassium Chloride ER [K-Dur 20] 20 meq PO TID 03/27/21 09/05/21 History Tiotropium 18 Mcg/Puff [Spiriva] 1 puff INHALATION RT-DAILY 03/27/21 09/05/21 History Bumetanide 2 mg PO BID 09/05/21 09/05/21 History Buprenorphine HCl [Belbuca] 450 mcg SL BID 09/05/21 09/05/21 History DULoxetine HCL [Cymbalta] 60 mg PO DAILY 09/05/21 09/05/21 History Gabapentin 600 mg PO TID 09/05/21 09/05/21 History Spironolactone [Aldactone] 25 mg PO BID 09/05/21 09/05/21 History Allergies Allergy/AdvReac Type Severity Reaction Status Date / Time codeine Allergy Severe Swelling Verified 09/05/21 07:29 OF THROAT WITH COUGH SYRUP chlorpheniramine Allergy Unknown Verified 09/05/21 07:29 febuxostat [From Uloric] Allergy Unknown Verified 09/05/21 07:29 phenylephrine Allergy Unknown Verified 09/05/21 07:29 piperacillin sodium Allergy Unknown Verified 09/05/21 07:29 [From Zosyn] sulfamethoxazole Allergy Unknown Verified 09/05/21 07:29 [From Bactrim] tazobactam sodium Allergy Unknown Verified 09/05/21 07:29 [From Zosyn] trimethoprim [From Bactrim] Allergy Unknown Verified 09/05/21 07:29 buspirone [From BuSpar] AdvReac Rapid Verified 09/05/21 07:29 Heart Rate Physical Exam Vitals: Vital Signs Temp Pulse Pulse Resp BP Pulse Ox 09/08/21 07:31 75 09/08/21 07:13 74 09/08/21 07:00 99 F 74 20 123/75 98 09/08/21 02:49 76 09/08/21 02:35 78 09/08/21 01:45 98.1 F 74 16 130/74 94 L 09/07/21 19:15 100.0 F H 86 16 137/73 95 09/07/21 15:29 99.0 F 91 16 139/62 94 L 09/07/21 11:58 72 09/07/21 11:41 66 Intake and Output 09/07/21 09/08/21 09/08/21 22:59 06:59 14:59 Intake Total 152.021 120 Output Total 700 1 400 Balance -547.979 -1 -280 Intake: Intake, IV Titration 152.021 Amount Heparin Sod,Pork in 0.45% 152.021 NaCl 25,000 unit In 0.45 % NaCl 1 250ml.bag @ 4. 899 UNITS/KG/HR 10 mls/hr IV .Q24H [facility] Rx#: [id number] Oral 120 Output: Urine 700 400 Stool 1 Other: Voiding Method Urinal Urinal # Voids 1 Weight 229.336 kg General appearance: The patient is alert, oriented, appears in no acute distress. Morbidly obese. HET: Head is normocephalic and atraumatic. Conjunctiva pink. Sclera anicteric. Neck: Supple without lymphadenopathy. Trachea midline. Heart: S1 S2. Regular rate and rhythm. Lungs: Clear to auscultation. Abdomen: Soft, diffuse tenderness, greatest in the epigastric region, nondistended with bowel sounds. Morbidly obese. No guarding or rigidity. Skin: No rashes. No jaundice. Extremities: Normal skin color and turgor. No pedal edema. Neurological: No focal deficits. Alert and oriented 3.. Results CBC & Chem 7: 09/08/21 04:37 09/08/21 04:37 Labs: Abnormal Lab Results - Last 24 Hours (Table) 09/07/21 09/07/21 09/07/21 Range/Units 02:53 10:57 20:36 WBC (4.50-10.00) X 10*3/uL RBC (4.40-5.60) X 10*6/uL Hgb (13.0-17.0) g/dL Hct (39.6-50.0) % MCH (27.0-32.0) pg MCHC (32.0-37.0) g/dL RDW (11.5-14.5) % Immature Gran # (0.00-0.04) X 10*3/uL Neutrophils # (1.80-7.70) X 10*3/uL Lymphocytes # (0.90-5.00) X 10*3/uL APTT 32.8 H 39.9 H (22.0-30.0) sec Sodium (137-145) mmol/L Chloride (98-107) mmol/L Carbon Dioxide (22-30) mmol/L Glucose (74-99) mg/dL ALT (4-49) U/L Alkaline Phosphatase (38-126) U/L Albumin (3.5-5.0) g/dL Procalcitonin 0.72 H (0.02-0.09) ng/mL 09/08/21 09/08/21 09/08/21 Range/Units 04:37 04:37 04:37 WBC 12.53 H (4.50-10.00) X 10*3/uL RBC 3.91 L (4.40-5.60) X 10*6/uL Hgb 10.3 L (13.0-17.0) g/dL Hct 34.8 L (39.6-50.0) % MCH 26.3 L (27.0-32.0) pg MCHC 29.6 L (32.0-37.0) g/dL RDW 15.9 H (11.5-14.5) % Immature Gran # 0.15 H (0.00-0.04) X 10*3/uL Neutrophils # 10.95 H (1.80-7.70) X 10*3/uL Lymphocytes # 0.66 L (0.90-5.00) X 10*3/uL APTT 43.9 H (22.0-30.0) sec Sodium 132 L (137-145) mmol/L Chloride 86 L (98-107) mmol/L Carbon Dioxide 37 H (22-30) mmol/L Glucose 153 H (74-99) mg/dL ALT 208 H (4-49) U/L Alkaline Phosphatase 300 H (38-126) U/L Albumin 3.2 L (3.5-5.0) g/dL Procalcitonin (0.02-0.09) ng/mL Microbiology - Last 24 Hours (Table) 09/06/21 20:16 Blood Culture - Preliminary Blood No Growth after 24 hours 09/05/21 Unknown Gram Stain - Final Leg - Left Wound Culture - Final Methicillin resist S. aureus 09/05/21 17:56 Blood Culture - Preliminary Blood No Growth after 48 hours Comments: CT of the abdomen and pelvis that showed some consolidation and atelectasis in the right lower lobe with right pleural effusion. Mild ectasia of the biliary tree. Bile ducts not significantly different than old exam. This could relate to gallbladder dysfunction. Abnormality in the right lower lobe not changed significantly compared to old exam. No obstructing lesion seen of the common bile duct. Ultrasound of the gallbladder that showed no CBD dilation, CBD 0.4 cm, and no obvious gallstones or hydropic gallbladder change, limited assessment of the liver however it appears hypoechoic. HIDA scan that showed no visualization of the bile ducts, bowel, or gallbladder up to 3 hours. Given delayed clearance of tracer from the blood pool, consider poor liver function secondary to active inflammation/hepatitis. Correlate with LFTs and patient risk factors. Assessment and Plan (1) Elevated LFTs Narrative/Plan: This is a 60-year-old morbidly obese male with multiple medical comorbidities with a history of alcoholism. Who admits to drinking a case of beer or more a day who quit 7-8 years ago. He was admitted to the emergency department with right upper quadrant and epigastric pain was also associated with some shortness of breath. On admission he was noted to have elevation in his LFTs. Total bilirubin 0.8 AST 240 ALT 172 alkaline phosphatase 259, amylase 38, lipase 58. On 09/06/2021 he was noted to have an elevation in his lipase up to 3525, total bilirubin 3.7 AST 382 ALT 481 alk phos 416. Repeat lipase was 248, LFTs have been continuing to trend down. Patient states he still is having right upper quadrant pain. Has not had a bowel movement in 3 days. Denies any nausea or vomiting. And is tolerating his diet. Patient with no previous history of liver disease, there is acute elevation in his LFTs which could be medication induced. There is no significant CBD dilation, no gallstones noted, unlikely we are dealing with biliary obstruction. Continue to monitor. Will order hepatitis panel. Current Visit: Yes Status: Acute Code(s): R79.89 - OTHER SPECIFIED ABNORMAL FINDINGS OF BLOOD CHEMISTRY SNOMED Code(s): 552004469 (2) Abdominal pain Current Visit: Yes Status: Acute Code(s): R10.9 - UNSPECIFIED ABDOMINAL PAIN SNOMED Code(s): 88467507 (3) Morbid obesity due to excess calories Current Visit: Yes Status: Acute Code(s): E66.01 - MORBID (SEVERE) OBESITY DUE TO EXCESS CALORIES SNOMED Code(s): 400748175 (4) DVT (deep venous thrombosis) Current Visit: Yes Status: Acute Code(s): I82.409 - ACUTE EMBOLISM AND THOMBOS UNSP DEEP VN UNSP LOWER EXTREMITY SNOMED Code(s): 756904425 Plan: 1. Continue symptomatic and supportive care 2. Diet per recommendations from surgical services 3. Hepatitis panel ordered 4. Repeat daily CMP 5. Avoid hepatotoxic medications 6. Protonix 40 mg twice a day 7. No plans on endoscopic evaluation Thank you for this consultation, we will continue to follow. Dr. Flakita Thompson I agree with the dictator's note, documented as a scribe by Maria Guadalupe Ramirez.
--- NOTE | 2021-09-08 14:57 | P.PN ---
Subjective Progress Note Date: 09/08/21 CHIEF COMPLAINT: Abdominal pain HISTORY OF PRESENT ILLNESS: Surgical service is following regards to possible gallstone pancreatitis. Patient does report right sided mid abdominal pain. He complains of nausea. No vomiting. It's been 2 days since his last bowel movement. He had a low-grade temperature yesterday of 100. WBC 12.53 His liver enzymes are trending downwards. Lipase normalized yesterday. Patient seen by GI service. Noted that they felt LFTs could be elevated due to medication. The y've ordered hepatitis panel. Cardiology following in regards to CHF exacerbation they've switched him over to oral Lasix. Patient is on IV heparin. Has history of A. fib and chronic DVT in the right leg. PHYSICAL EXAM: VITAL SIGNS: Reviewed. GENERAL: Well-developed in no acute distress. HEENT: No sclera icterus. Extraocular movements grossly intact. Moist buccal mucosa. Head is atraumatic, normocephalic. ABDOMEN: Soft. Obese Nondistended. Right sided abdominal tenderness NEUROLOGIC: Alert and oriented. Cranial nerves II through XII grossly intact. ASSESSMENT: 1. Suspected gallstone pancreatitis. Patient may have passed a stone. 2. Elevated transaminases trending downwards PLAN: -Patient tentatively scheduled for laparoscopic cholecystectomy this 09/10/[address] Vigil -Continue clear liquids -Continue supportive care -Continue antibiotics per ID Physician Research Engineer note has been reviewed by physician. Signing provider agrees with the documented findings, assessment, and plan of care. Objective - Vital Signs Vital signs: Vital Signs Temp 99 F 09/08/21 07:00 Pulse 74 09/08/21 11:05 Resp 20 09/08/21 07:00 BP 123/75 09/08/21 07:00 Pulse Ox 98 09/08/21 07:00 Intake & Output 09/07/21 09/08/21 09/08/21 18:59 06:59 18:59 Intake Total 169.167 152.021 360 Output Total 9532 045 5585 Balance -900.833 -548.979 -790 Weight 229.336 kg Intake: Intake, IV Titration 169.167 152.021 Amount Heparin Sod,Pork in 0.45% 169.167 152.021 NaCl 25,000 unit In 0.45 % NaCl 1 250ml.bag @ 4. 899 UNITS/KG/HR 10 mls/hr IV .Q24H [facility] Rx#: [id number] Oral 360 Output: Urine 9282 538 6280 Stool 1 Other: Voiding Method Urinal # Voids 1 1 - Labs CBC & Chem 7: 09/08/21 04:37 09/08/21 04:37 Labs: Abnormal Lab Results - Last 24 Hours (Table) 09/07/21 09/07/21 09/08/21 Range/Units 02:53 20:36 04:37 WBC 12.53 H (4.50-10.00) X 10*3/uL RBC 3.91 L (4.40-5.60) X 10*6/uL Hgb 10.3 L (13.0-17.0) g/dL Hct 34.8 L (39.6-50.0) % MCH 26.3 L (27.0-32.0) pg MCHC 29.6 L (32.0-37.0) g/dL RDW 15.9 H (11.5-14.5) % Immature Gran # 0.15 H (0.00-0.04) X 10*3/uL Neutrophils # 10.95 H (1.80-7.70) X 10*3/uL Lymphocytes # 0.66 L (0.90-5.00) X 10*3/uL APTT 39.9 H (22.0-30.0) sec Sodium (137-145) mmol/L Chloride (98-107) mmol/L Carbon Dioxide (22-30) mmol/L Glucose (74-99) mg/dL ALT (4-49) U/L Alkaline Phosphatase (38-126) U/L Albumin (3.5-5.0) g/dL Procalcitonin 0.72 H (0.02-0.09) ng/mL 09/08/21 09/08/21 Range/Units 04:37 04:37 WBC (4.50-10.00) X 10*3/uL RBC (4.40-5.60) X 10*6/uL Hgb (13.0-17.0) g/dL Hct (39.6-50.0) % MCH (27.0-32.0) pg MCHC (32.0-37.0) g/dL RDW (11.5-14.5) % Immature Gran # (0.00-0.04) X 10*3/uL Neutrophils # (1.80-7.70) X 10*3/uL Lymphocytes # (0.90-5.00) X 10*3/uL APTT 43.9 H (22.0-30.0) sec Sodium 132 L (137-145) mmol/L Chloride 86 L (98-107) mmol/L Carbon Dioxide 37 H (22-30) mmol/L Glucose 153 H (74-99) mg/dL ALT 208 H (4-49) U/L Alkaline Phosphatase 300 H (38-126) U/L Albumin 3.2 L (3.5-5.0) g/dL Procalcitonin (0.02-0.09) ng/mL Microbiology - Last 24 Hours (Table) 09/06/21 20:16 Blood Culture - Preliminary Blood No Growth after 24 hours 09/05/21 Unknown Gram Stain - Final Leg - Left Wound Culture - Final Methicillin resist S. aureus 09/05/21 17:56 Blood Culture - Preliminary Blood No Growth after 48 hours
[2021-09-08] MEDS: HEPARIN SOD,PORK IN 0.45% NACL 25,000 UNIT in 0.45% NACL 1 250ML.BAG IV SCH ×2 (15:00→23:31)
[2021-09-08] MEDS: FUROSEMIDE 40 MG TAB PO SCH (16:49)
--- NOTE | 2021-09-08 19:39 | PN ---
ntd PROGRESS NOTE DATE OF SERVICE: 09/08/2021 This 60-year-old gentleman was admitted with multiple medical problems and also had DVT of the right leg. Patient is on IV heparin. Patient also is complaining abdominal pain. GI and Cardiology and Infectious Disease: multiple consultants are following the patient closely. GI has recommended continuing with supportive care. There is no evidence of any pulmonary embolism. The patient has some left leg wounds also. suspected to have CBD stones. No chest pain. No palpitations. No fever. Past medical history reviewed. REVIEW OF SYSTEMS: CARDIOVASCULAR: No angina, palpitations. RESPIRATORY SYSTEM: As mentioned earlier. GI: As mentioned earlier. : ntd MEDICATIONS: Reviewed. PHYSICAL EXAMINATION: Alert and oriented x3. Pulse is 76, blood pressure 123/63, respiration 20, temperature 98.2, pulse ox 93% on 2 L. HEENT: Conjunctivae normal. NECK: No jugular venous distention. CARDIOVASCULAR: S1, S2 muffled. RESPIRATION: Breath sounds diminished at the bases. A few scattered rhonchi. ABDOMEN: Soft. Mild diffuse tenderness. LEGS: No edema. No swelling. NERVOUS SYSTEM: No focal deficit. LAB STUDIES: WBC 12.3, hemoglobin 10.3. noted. Sodium 132, lipase is 248, amylase 163. AST, ALT noted. Alkaline phosphatase is elevated at 300. ASSESSMENT: 1. Right-sided pleural effusion as well as possible right-sided pneumonia with parapneumonic effusion with possible sepsis, present on admission. 2. Fever. 3. Acute bilateral leg cellulitis, left more than the right. 4. Possible acute pancreatitis related to gallbladder pathology and CBD stones and gallstone pancreatitis. 5. Elevated alkaline phosphatase. 6. Possible congestive heart failure, acute exacerbation. Ejection fraction unknown. 7. Hyponatremia. 8. Elevated D-dimer with chronic deep vein thrombosis in the right leg, on IV heparin. 9. Anemia, normocytic. 10.Elevated AST, alkaline phosphatase, possibly acute hepatitis or obstructive hepatopathy of undetermined etiology. 11.History of atrial fibrillation. 12.History of asthma, chronic obstructive pulmonary disease. 13.History of cerebrovascular accident, transient ischemic attack. 14.Diabetes mellitus, type 2. 15.History of deep vein thrombosis. 16.History of gastroesophageal reflux disease. 17.History of gastrointestinal bleed. 18.Hypertension. 19.Hyperlipidemia. 20.History of degenerative joint disease. 21.History of pulmonary embolism. 22.History of sleep apnea. 23.History of recent right thoracocentesis. 24.History of bilateral peripheral neuropathy. 25.History of pseudoseizures with extensive past workup in [facility]. 26.History of MRSA. 27.History of appendectomy. 28.History of bariatric surgery. 29.Anxiety, bipolar, depression, panic disorder, schizoaffective disorder. 30.Remote history of nicotine dependence. 31.Obesity with body mass index of 39.5. 32.FULL CODE. RECOMMENDATIONS AND DISCUSSION: In this 60-year-old gentleman who presented with multiple complex medical issues, we will monitor the patient closely. The patient has multiple symptomatology involving multiple symptoms, but I believe the gallbladder pathology may be one of the issues. We will continue the broad-spectrum IV antibiotics, follow the cultures. Patient also has pleural effusion. I would also discuss with Dr. Thompson at length and will continue to monitor. Further recommendations to follow. YARIEL / JONESN: [id number] / MTDD
[2021-09-08] MEDS: ATORVASTATIN 10 MG TAB PO SCH (22:08)
[2021-09-08] MEDS: OLANZapine 10 MG TAB PO SCH (22:09)
[2021-09-08] MEDS: HEPARIN SODIUM 1,000 UN/ML (10ML VL) IV PRN (23:38)
[2021-09-09] MEDS: CEFEPIME 2 GM in SODIUM CHLORIDE 0.9% 100 ML IVPB SCH ×3 (00:11→15:42)
[2021-09-09] MEDS: HEPARIN SOD,PORK IN 0.45% NACL 25,000 UNIT in 0.45% NACL 1 250ML.BAG IV SCH ×2 (08:26→20:19)
[2021-09-09] MEDS: DULoxetine HCL 60 MG CAPSULE.DR PO SCH (08:39)
[2021-09-09] MEDS: SPIRONOLACTONE 25 MG TAB PO SCH ×2 (08:39→20:18)
[2021-09-09] MEDS: METOPROLOL TARTRATE 25 MG TAB PO SCH ×2 (08:39→20:17)
[2021-09-09] MEDS: polyethylene glycoL 3350 17 GM POWD.PACK PO SCH (08:39)
[2021-09-09] MEDS: FUROSEMIDE 40 MG TAB PO SCH ×2 (08:39→15:42)
[2021-09-09] MEDS: GABAPENTIN 300 MG CAP PO SCH ×3 (08:39→20:18)
[2021-09-09] MEDS: POTASSIUM CHLORIDE ER 20 MEQ TAB.ER PO SCH ×3 (08:39→20:18)
[2021-09-09] MEDS: PANTOPRAZOLE 40 MG TABLET PO SCH (08:39)
[2021-09-09] MEDS: DILTIAZEM ORAL 30 MG TAB PO SCH ×3 (08:40→20:18)
[2021-09-09] MEDS: DOCUSATE 100 MG CAP PO PRN (09:13)
[2021-09-09] MEDS: NON FORMULARY DRUG (Buprenorphine Hcl [Belbuca] 450 MCG Film) SUBLINGUAL SCH (09:13)
[2021-09-09] MEDS: IPRATROPIUM-ALBUTEROL 3 ML NEB INHALATION SCH ×3 (09:30→19:38)
--- NOTE | 2021-09-09 11:25 | P.PN ---
Subjective Patient is a pleasant 60-year-old male with a past medical history of atrial fibrillation, congestive heart failure, COPD, CVA, TIA, type 2 diabetes, DVT, GERD, GI bleed, hypertension, degenerative disc disease, pulmonary embolism who initially presented to the hospital with abdominal pain and possible cholecystitis. No history of CAD normal coronary arteries on cath in 2013. Cardiology was consulted for the patient's congestive heart failure and complex cardiac history. Patient follows with Dr. Borja. Patient reports that he is always swollen, and cannot elevate his legs at home. He states that since he's been the hospital the swelling in his lower legs has improved. He does report that he is always short of breath as well. The patient is also reporting chest pain, however it is low down in his chest and is felt to be due to a current diagnosis of pancreatitis. D-dimer was 1.84 and a CTA was completed which shows no pulmonary embolism, right pleural effusion, right lower lobe consolidation and atelectasis. Patient did have a venous Doppler of the lower extremities completed and was found that he had a chronic DVT in the right leg from this from all this popliteal. Echocardiogram revealed EF of 5055 percent, LA is mildly dilated, aneurysmal interatrial septum, mild aortic regurgitation with a peak/mean gradient of 12 mmHg/5 mmHg, mild mitral regurgitation, mild tricuspid regurgitation, moderate pulmonary hypertension with RVSP of 47 mmHg, aortic root is dilated 4.7 cm 09/09/21 Patient seen and examined at bedside, no acute distress. He does have some abdominal pain. Swelling in the patient's legs has improved. He is potentially going for a lap sylvester Wednesday. He's currently maintained on PO Lasix 40 mg twice a day, atorvastatin 10 mg daily, Cardizem 30 mg TID, IV heparin drip (Xar elto being held for possible procedure), spironolactone 25 mg BID, Metoprolol tartrate 25 mg twice a day. Patient with 2.9 L urine output over the past 24 hours. Laboratory data reviewed from yesterday WBC 12.5, hemoglobin 10.3, platelets 235, sodium 132, potassium 3.5, BUNs 15, serum 0.7, AST 58, PLT 208, alkaline phosphatase 300, amylase 163. Repeat CMP pending Blood pressure 111/59, heart rate 78, afebrile, maintaining saturations on 2 L nasal cannula GENERAL: In no acute distress NECK: Supple without JVD or thyromegaly. LUNGS: Breath sounds diminished to auscultation bilaterally. Respiration equal and unlabored. No wheezes, rales or rhonchi. HEART: Regular rate and rhythm without murmurs, rubs or gallops. S1 and S2 heard. EXTREMITIES: Normal range of motion, moderate edema bilateral lower legs, 2+ pitting. No clubbing or cyanosis. Peripheral pulses intact and strong. ASSESSMENT: Acute on chronic diastolic heart failure Concern for right lower lobe pneumonia on CT scan Leukocytosis Fevers Hypertension Paroxysmal atrial fibrillation on Xarelto COPD History of CVA/TIA Type 2 Diabetes History of DVT GERD PLAN: -From a cardiology perspective we will continue current medical regimen with Lasix PO 40 mg twice a day, atorvastatin 10 mg daily, Cardizem 30 mg TID, spironolactone 25 mg BID, Metoprolol tartrate 25 mg BID. -Per surgery possible laparoscopic cholecystectomy this 09/10/[address] Vigil -Per GI no endoscopic evaluation, hepatitis panel ordered -Restart Xarelto and discontinue heparin drip when ok per surgery -From a cardiology perspective, patient is at moderate risk for surgery. Patient may proceed with surgery with no additional cardiac testing or procedures at this time. Recommend cautious fluid administration and optimal BP control. -Further recommendations based on clinical course. Thank you for allowing us to participate in the care of this patient. Do not hesitate to reconsult us if the need arises. Objective - Vital Signs Vital signs: Vital Signs Temp 97.5 F L 09/09/21 08:00 Pulse 80 09/09/21 09:44 Resp 18 09/09/21 08:00 BP 111/59 09/09/21 08:00 Pulse Ox 96 09/09/21 08:00 Intake & Output 09/08/21 09/09/21 09/09/21 18:59 06:59 18:59 Intake Total 480 426.868 427.367 Output Total 1950 1000 Balance -1470 -573.132 427.367 Weight 228.157 kg Intake: Intake, IV Titration 426.868 247.367 Amount Cefepime 2 gm In Sodium 100 Chloride 0.9% 100 ml @ 25 mls/hr IVPB Q8HR [facility] Rx# :[id number] Heparin Sod,Pork in 0.45% 226.868 247.367 NaCl 25,000 unit In 0.45 % NaCl 1 250ml.bag @ 4. 899 UNITS/KG/HR 10 mls/hr IV .Q24H [facility] Rx#: [id number] cefTRIAXone 1 gm In 100 Sodium Chloride 0.9% 50 ml @ 100 mls/hr IVPB Q24HR [facility] Rx#:[id number] Oral 480 180 Output: Urine 1950 1000 Other: Voiding Method Urinal # Voids 1 - Labs CBC & Chem 7: 09/08/21 04:37 09/08/21 04:37 Labs: Abnormal Lab Results - Last 24 Hours (Table) 09/08/21 09/09/21 Range/Units 19:15 05:27 APTT 41.9 H 90.8 H (22.0-30.0) sec Microbiology - Last 24 Hours (Table) 09/06/21 20:16 Blood Culture - Preliminary Blood No Growth after 48 hours 09/05/21 17:56 Blood Culture - Preliminary Blood No Growth after 72 hours
[2021-09-09 13:20] LABS: Hepatitis A Antibody IgM Nonreactive (Nonreactive); Hepatitis B Core IgM Nonreactive (Nonreactive); Hepatitis B Surface Antigen Nonreactive (Nonreactive); Hepatitis C IgG Antibody Nonreactive (Nonreactive)
[2021-09-09] MEDS ORDERED: POTASSIUM CHLORIDE ER 20 MEQ TAB.ER PO STA (13:50)
--- NOTE | 2021-09-09 13:53 | P.PN ---
Subjective Progress Note Date: 09/09/21 Principal diagnosis: Abdominal pain, elevated LFTs This a 60-year-old morbidly obese patient with multiple comorbidities who presented to the emergency department with complaints of abdominal pain. Patient states abdominal pain continues at mostly in the right upper quadrant re gion. He had a CT of the abdomen and pelvis that showed some consolidation and atelectasis in the right lower lobe and right pleural effusion mild ectasia of the biliary tree. Bile ducts not significantly different from old exam. Gallbladder ultrasound showed no CBD dilation with no obvious gallstones or hydropic gallbladder. On 09 06 the patient had an increase in his total bilirubin to 3.7 AST 382 ALT 481 alkaline phosphatase 416 and a lipase of 3525. Since then bilirubin, LFTs, and lipase has trended down. Hepatitis panel nonreactive. Patient does have a history of significant alcohol abuse in the past. He is tolerating clear liquid diet, denies any nausea or vomiting. Last bowel movement was about 4 days ago. Plan is for cholecystectomy tomorrow with general surgery. Objective - Vital Signs Vital signs: Vital Signs Temp 97.5 F L 09/09/21 08:00 Pulse 80 09/09/21 09:44 Resp 18 09/09/21 08:00 BP 111/59 09/09/21 08:00 Pulse Ox 96 09/09/21 08:00 Intake & Output 09/08/21 09/09/21 09/09/21 18:59 06:59 18:59 Intake Total 480 426.868 247.367 Output Total 1950 1000 Balance -1470 -573.132 247.367 Weight 228.157 kg Intake: Intake, IV Titration 426.868 247.367 Amount Cefepime 2 gm In Sodium 100 Chloride 0.9% 100 ml @ 25 mls/hr IVPB Q8HR [facility] Rx# :[id number] Heparin Sod,Pork in 0.45% 226.868 247.367 NaCl 25,000 unit In 0.45 % NaCl 1 250ml.bag @ 4. 899 UNITS/KG/HR 10 mls/hr IV .Q24H [facility] Rx#: [id number] cefTRIAXone 1 gm In 100 Sodium Chloride 0.9% 50 ml @ 100 mls/hr IVPB Q24HR [facility] Rx#:[id number] Oral 480 Output: Urine 1950 1000 Other: Voiding Method Urinal # Voids 1 - Exam General appearance: The patient is alert, oriented, appears in no acute distress. Morbidly obese. HET: Head is normocephalic and atraumatic. Conjunctiva pink. Sclera anicteric. Neck: Supple without lymphadenopathy. Abdomen: Soft, right upper quadrant tenderness, diffuse tenderness, nondistended with bowel sounds. Morbidly obese. No guarding or rigidity. Extremities: Normal skin color and turgor. No pedal edema Skin: No rashes, no jaundice Neurological: No focal deficits. Alert and oriented 3 - Labs CBC & Chem 7: 09/08/21 04:37 09/08/21 04:37 Labs: Abnormal Lab Results - Last 24 Hours (Table) 09/08/21 09/09/21 Range/Units 19:15 05:27 APTT 41.9 H 90.8 H (22.0-30.0) sec Microbiology - Last 24 Hours (Table) 09/06/21 20:16 Blood Culture - Preliminary Blood No Growth after 48 hours 09/05/21 17:56 Blood Culture - Preliminary Blood No Growth after 72 hours Assessment and Plan (1) Elevated LFTs Narrative/Plan: This is a 60-year-old morbidly obese male with multiple medical comorbidities with a history of alcoholism. Who admits to drinking a case of beer or more a day who quit 7-8 years ago. He was admitted to the emergency department with right upper quadrant and epigastric pain was also associated with some shortness of breath. On admission he was noted to have elevation in his LFTs. Total bilirubin 0.8 AST 240 ALT 172 alkaline phosphatase 259, amylase 38, lipase 58. On 09/06/2021 he was noted to have an elevation in his lipase up to 3525, total bilirubin 3.7 AST 382 ALT 481 alk phos 416. Repeat lipase was 248, LFTs have been continuing to trend down. Patient states he still is having right upper quadrant pain. Has not had a bowel movement in 3 days. Denies any nausea or vomiting. And is tolerating his diet. Patient with no previous history of liver disease, there is acute elevation in his LFTs which could be medication induced. There is no significant CBD dilation, no gallstones noted, unlikely we are dealing with biliary obstruction. Continue to monitor. Will order hepatitis panel. Current Visit: Yes Status: Acute Code(s): R79.89 - OTHER SPECIFIED ABNORMAL FINDINGS OF BLOOD CHEMISTRY SNOMED Code(s): 079565818 (2) Abdominal pain Current Visit: Yes Status: Acute Code(s): R10.9 - UNSPECIFIED ABDOMINAL PAIN SNOMED Code(s): 49137414 (3) Morbid obesity due to excess calories Current Visit: Yes Status: Acute Code(s): E66.01 - MORBID (SEVERE) OBESITY DUE TO EXCESS CALORIES SNOMED Code(s): 068947337 (4) DVT (deep venous thrombosis) Current Visit: Yes Status: Acute Code(s): I82.409 - ACUTE EMBOLISM AND THOMBOS UNSP DEEP VN UNSP LOWER EXTREMITY SNOMED Code(s): 018092175 Plan: 1. Continue symptomatic and supportive care 2. Diet per recommendations from surgical services 3. Hepatitis panel ordered 4. Repeat daily CMP 5. Avoid hepatotoxic medications 6. Protonix 40 mg twice a day 7. No plans on endoscopic evaluation Thank you for this consultation, we will continue to follow. Dr. Flakita Thompson I agree with the dictator's note, documented as a scribe by Maria Guadalupe Ramirez.
--- NOTE | 2021-09-09 14:02 | P.PN ---
Subjective Progress Note Date: 09/09/21 CHIEF COMPLAINT: Abdominal pain HISTORY OF PRESENT ILLNESS: Surgical service is following regards to possible gallstone pancreatitis. Patient complains of right upper quadrant abdominal pain. He has been having nausea. Patient cleared from cardiac service to proceed with surgery Patient is on IV heparin. Has history of A. fib and chronic DVT in the right leg. Afebrile. Hepatitis panel negative. BMP pending PHYSICAL EXAM: VITAL SIGNS: Reviewed. GENERAL: Well-developed in no acute distress. HEENT: No sclera icterus. Extraocular movements grossly intact. Moist buccal mucosa. Head is atraumatic, normocephalic. ABDOMEN: Soft. Obese Nondistended. Right sided abdominal tenderness NEUROLOGIC: Alert and oriented. Cranial nerves II through XII grossly intact. ASSESSMENT: 1. Suspected gallstone pancreatitis. Patient may have passed a stone. 2. Elevated transaminases trending downwards PLAN: -Patient is scheduled for laparoscopic cholecystectomy this 09/10/[address] Vigil -Continue clear liquids for today -Nothing by mouth after midnight -Hold IV heparin starting at 9 AM tomorrow -Continue supportive care -Continue antibiotics per ID Physician Mailing Clerk note has been reviewed by physician. Signing provider agrees with the documented findings, assessment, and plan of care. Objective - Vital Signs Vital signs: Vital Signs Temp 97.5 F L 09/09/21 08:00 Pulse 80 09/09/21 09:44 Resp 18 09/09/21 08:00 BP 111/59 09/09/21 08:00 Pulse Ox 96 09/09/21 08:00 Intake & Output 09/08/21 09/09/21 09/09/21 18:59 06:59 18:59 Intake Total 480 426.868 427.367 Output Total 1950 1000 600 Balance -1470 -573.132 -172.633 Weight 228.157 kg Intake: Intake, IV Titration 426.868 247.367 Amount Cefepime 2 gm In Sodium 100 Chloride 0.9% 100 ml @ 25 mls/hr IVPB Q8HR [facility] Rx# :[id number] Heparin Sod,Pork in 0.45% 226.868 247.367 NaCl 25,000 unit In 0.45 % NaCl 1 250ml.bag @ 4. 899 UNITS/KG/HR 10 mls/hr IV .Q24H [facility] Rx#: [id number] cefTRIAXone 1 gm In 100 Sodium Chloride 0.9% 50 ml @ 100 mls/hr IVPB Q24HR [facility] Rx#:[id number] Oral 480 180 Output: Urine 1950 1000 600 Other: Voiding Method Urinal # Voids 1 - Labs CBC & Chem 7: 09/08/21 04:37 09/08/21 04:37 Labs: Abnormal Lab Results - Last 24 Hours (Table) 09/08/21 09/09/21 Range/Units 19:15 05:27 APTT 41.9 H 90.8 H (22.0-30.0) sec Microbiology - Last 24 Hours (Table) 09/06/21 20:16 Blood Culture - Preliminary Blood No Growth after 48 hours 09/05/21 17:56 Blood Culture - Preliminary Blood No Growth after 72 hours
[2021-09-09] MEDS ORDERED: MIDAZOLAM 2 MG/2 ML VIAL IV PRN (14:06)
[2021-09-09] MEDS ORDERED: DEXAMETHASONE SOD PHOSPHATE 4 MG/ML 1 ML VIAL IV ONE (14:06)
[2021-09-09] MEDS ORDERED: LIDOCAINE 1% (10MG/ML) FOR IV START INTRADERMA PRN (14:06)
[2021-09-09] MEDS ORDERED: ONDANSETRON 4 MG/2 ML VIAL IVP ONE (14:06)
--- NOTE | 2021-09-09 14:33 | PN ---
PROGRESS NOTE DATE OF SERVICE: 09/09/2021 REASON FOR FOLLOWUP: 1. Fever, likely secondary to gallstone pancreatitis. 2. Left leg wound. Positive culture, likely colonization. INTERVAL HISTORY: The patient is afebrile. The patient is breathing comfortably. Still complaining of pain to the abdominal area. Nausea but no vomiting. No chest pain, shortness of breath or cough. No pain to the left lower extremity wound area. PHYSICAL EXAMINATION: Blood pressure 111/59, pulse of 78, temperature 97.5. He is 96% on room air, General description is a middle-aged male lying in bed in no distress. RESPIRATORY SYSTEM: Unlabored breathing. Clear to auscultation anteriorly. HEART: S1, S2. Regular rate and rhythm. ABDOMEN: Soft. Mildly tender. No guarding or rigidity. LEGS: Superficial wound, left leg, with no redness or drainage. LABS: Hemoglobin is 10.3, white count 12.53, creatinine 0.75. DIAGNOSTIC IMPRESSION AND PLAN: 1. Patient admitted to hospital with sepsis concerning for a gallstone pancreatitis. The patient is currently being monitored by General Surgery, and GI has been consulted and is not recommending any endoscopic procedures. Patient is covered with cefepime; to continue. 2. Left leg wound. No cellulitis. Positive culture likely from colonization. No need for any vancomycin at this point. MMODL / IJN: [id number] /
[2021-09-09 15:25] LABS: African American GFR (CKD) >90 (>60 ml/min/1.73 sqM); Anion Gap 5 mmol/L; Blood Urea Nitrogen 17 mg/dL (9-20); Calcium 9.1 mg/dL (8.4-10.2); Chloride 87 mmol/L (98-107); Glucose 107 mg/dL (74-99); Non-African American GFR(CKD) >90 (>60 ml/min/1.73 sqM); Potassium 4.4 mmol/L (3.5-5.1); Sodium 132 mmol/L (137-145)
[2021-09-09 15:32] LABS: Carbon Dioxide 38 mmol/L (22-30)
[2021-09-09] MEDS: HEPARIN SODIUM 1,000 UN/ML (10ML VL) IV PRN (17:10)
--- NOTE | 2021-09-09 17:13 | PN ---
PROGRESS NOTE DATE OF SERVICE: 09/09/2021 This 60-year-old gentleman who was admitted with right-sided pleural effusion as well as right-sided pneumonia also had multiple other medical problems. The gallbladder pathology also again considered. Surgery is following the patient closely. The patient might have passed a stone. Laparoscopic cholecystectomy planned by surgery. No chest pains. No palpitations. No fever. PHYSICAL EXAMINATION: Alert and oriented x3. Pulse 69, blood pressure 118/60. Respiration 18. Temperature 98 degrees, pulse ox 98% on 2 L. HEENT: Conjunctivae normal. Neck: No JVD. Cardiovascular: S1, S2 muffled. Respiratory: Breath sounds diminished at the bases. A few scattered rhonchi and crackles. Abdomen: Soft, obese. Legs: No edema. No swelling. Nervous system: No focal deficits. LAB STUDIES: WBC 12.2. Hemoglobin 10.3. Hepatitis panel is noted. ASSESSMENT: 1. Right sided pleural effusion as well as right-sided pneumonia with parapneumonic effusion with possible sepsis, present on admission. 2. Fever. 3. Possible acute pancreatitis and gallstone pancreatitis. 4. Acute bilateral leg cellulitis, left more than the right. 5. Possible CBD stones and gallstone pancreatitis with improving labs. 6. Elevated alkaline phosphatase. 7. Possible congestive heart failure acute exacerbation, ejection fraction unknown. 8. Hyponatremia. 9. Elevated D-dimer with chronic DVT of the right leg on IV heparin. 10.Anemia, normocytic. 11.Elevated AST, alkaline phosphatase, possibly acute hepatitis or obstructive hepatopathy of undetermined origin or a possible CBD stone which the patient passed. 12.History of atrial fibrillation. 13.History of asthma, chronic obstructive pulmonary disease. 14.History of cerebrovascular accident, transient ischemic attack. 15.Diabetes mellitus type 2. 16.History of deep vein thrombosis. 17.History of gastroesophageal reflux disease. 18.History of gastrointestinal bleed. 19.Hypertension. 20.Hyperlipidemia. 21.History of degenerative joint disease. 22.History of pulmonary embolus. 23.History of sleep apnea. 24.History of recent right thoracocentesis. 25.History of bilateral peripheral neuropathy. 26.History of pseudoseizures with extensive past workup at [facility]. 27.History of MRSA. 28.History of appendectomy. 29.History of bariatric surgery. 30.'History of anxiety, bipolar depression, panic disorder, schizoaffective disorder. 31.Remote history of nicotine dependence. 32.Obesity with body mass of 39.1. 33.FULL CODE. RECOMMENDATIONS AND DISCUSSION: I recommend to continue current medications, symptomatic treatment. Otherwise, at this time, I recommend repeat labs in the morning and follow the LFTs. Follow the amylase and lipase. Otherwise, the prognosis guarded because of multiple complex medical issues. Follow closely with GI surgery and multiple other consultants. See orders for details. MMODL / IJN: [id number] /
[2021-09-09] MEDS: OLANZapine 10 MG TAB PO SCH (20:18)
[2021-09-09] MEDS: ATORVASTATIN 10 MG TAB PO SCH (20:19)
[2021-09-09] MEDS ORDERED: HEPARIN SODIUM 1,000 UN/ML (10ML VL) IV PRN (23:05)
[2021-09-10] MEDS: CEFEPIME 2 GM in SODIUM CHLORIDE 0.9% 100 ML IVPB SCH ×3 (01:18→19:24)
[2021-09-10] MEDS: NON FORMULARY DRUG (Buprenorphine Hcl [Belbuca] 450 MCG Film) SUBLINGUAL SCH ×3 (01:18→20:56)
[2021-09-10] MEDS: IPRATROPIUM-ALBUTEROL 3 ML NEB INHALATION PRN (04:52)
[2021-09-10 05:31] LABS: Basophils % (A) 0 %; Eosinophils # (A) 0.1 k/uL (0-0.7); Eosinophils % (A) 1 %; HCT 34.9 % (39.0-53.0); HGB 10.3 gm/dL (13.0-17.5); Hypochromasia Moderate; Lymphocytes # (A) 0.5 k/uL (1.0-4.8); Lymphocytes % (A) 6 %; MCH 26.3 pg (25.0-35.0); MCHC 29.6 g/dL (31.0-37.0); MCV 88.8 fL (80.0-100.0); Mean Platelet Volume 7.6; Monocytes # (A) 0.5 k/uL (0-1.0); Monocytes % (A) 6 %; Neutrophils # (A) 6.1 k/uL (1.3-7.7); Neutrophils % (A) 83 %; Platelet Count 254 k/uL (150-450); RBC 3.92 m/uL (4.30-5.90); WBC 7.3 k/uL (3.8-10.6)
[2021-09-10] MEDS: LACTATED RINGERS 1,000 ML IV SCH ×2 (07:46→19:24)
[2021-09-10 07:47] LABS: ALT 109 U/L (4-49); AST 25 U/L (17-59); African American GFR (CKD) >90 (>60 ml/min/1.73 sqM); Alkaline Phosphatase 252 U/L (38-126); Anion Gap 7 mmol/L; Blood Urea Nitrogen 17 mg/dL (9-20); Calcium 9.5 mg/dL (8.4-10.2); Chloride 86 mmol/L (98-107); Globulin 2.9 g/dL; Glucose 104 mg/dL (74-99); Lipase 72 U/L (23-300); Non-African American GFR(CKD) >90 (>60 ml/min/1.73 sqM); Potassium 4.1 mmol/L (3.5-5.1); Sodium 133 mmol/L (137-145); Total Bilirubin 0.7 mg/dL (0.2-1.3); Total Protein 5.9 g/dL (6.3-8.2)
[2021-09-10 08:04] LABS: Carbon Dioxide 39 mmol/L (22-30)
[2021-09-10] MEDS: GABAPENTIN 300 MG CAP PO SCH ×3 (08:34→21:53)
[2021-09-10] MEDS: DULoxetine HCL 60 MG CAPSULE.DR PO SCH (08:34)
[2021-09-10] MEDS: DILTIAZEM ORAL 30 MG TAB PO SCH ×3 (08:34→21:52)
[2021-09-10] MEDS: POTASSIUM CHLORIDE ER 20 MEQ TAB.ER PO SCH ×3 (08:34→21:53)
[2021-09-10] MEDS: FUROSEMIDE 40 MG TAB PO SCH ×2 (08:34→19:25)
[2021-09-10] MEDS: PANTOPRAZOLE 40 MG TABLET PO SCH (08:34)
[2021-09-10] MEDS: SPIRONOLACTONE 25 MG TAB PO SCH ×2 (08:34→21:53)
[2021-09-10] MEDS: METOPROLOL TARTRATE 25 MG TAB PO SCH ×2 (08:34→21:53)
[2021-09-10] MEDS: polyethylene glycoL 3350 17 GM POWD.PACK PO SCH (08:39)
[2021-09-10] MEDS: IPRATROPIUM-ALBUTEROL 3 ML NEB INHALATION SCH ×3 (08:49→20:47)
[2021-09-10] MEDS: MORPHINE SULFATE 4 MG/ML SYRINGE IV PRN (10:58)
--- NOTE | 2021-09-10 14:36 | P.PN ---
Subjective Progress Note Date: 09/10/21 Principal diagnosis: Abdominal pain, elevated LFTs This a 60-year-old morbidly obese patient with multiple comorbidities who presented to the emergency department with complaints of abdominal pain. Patient states abdominal pain continues at mostly in the right upper quadrant re gion. He had a CT of the abdomen and pelvis that showed some consolidation and atelectasis in the right lower lobe and right pleural effusion mild ectasia of the biliary tree. Bile ducts not significantly different from old exam. Gallbladder ultrasound showed no CBD dilation with no obvious gallstones or hydropic gallbladder. On 09/06 the patient had an increase in his total bilirubin to 3.7 AST 382 ALT 481 alkaline phosphatase 416 and a lipase of 3525. Since then bilirubin, LFTs, and lipase has trended down. Hepatitis panel nonreactive. Patient does have a history of significant alcohol abuse in the past. Patient states he had 2 bowel movements today. He is nothing by mouth and scheduled for cholecystectomy today. States he still has some right upper quadrant pain. No nausea or vomiting. Labs continue to trend down. Objective - Vital Signs Vital signs: Vital Signs Temp 97.9 F 09/10/21 02:00 Pulse 72 09/10/21 05:04 Resp 20 09/10/21 02:00 BP 135/63 09/10/21 02:00 Pulse Ox 97 09/10/21 02:00 Intake & Output 09/09/21 09/10/21 09/10/21 18:59 06:59 18:59 Intake Total 677.367 165.937 Output Total 600 500 Balance 77.367 -334.063 Weight 228.863 kg Intake: Intake, IV Titration 497.367 65.937 Amount Heparin Sod,Pork in 0.45% 497.367 65.937 NaCl 25,000 unit In 0.45 % NaCl 1 250ml.bag @ 4. 899 UNITS/KG/HR 10 mls/hr IV .Q24H [facility] Rx#: [id number] Oral 180 100 Output: Urine 600 500 Other: # Voids 2 # Bowel Movements 2 - Exam General appearance: The patient is alert, oriented, appears in no acute distress. Morbidly obese. HET: Head is normocephalic and atraumatic. Conjunctiva pink. Sclera anicteric. Neck: Supple without lymphadenopathy. Abdomen: Soft, right upper quadrant tenderness, diffuse tenderness, nondistended with bowel sounds. Morbidly obese. No guarding or rigidity. Extremities: Normal skin color and turgor. No pedal edema Skin: No rashes, no jaundice Neurological: No focal deficits. Alert and oriented 3 - Labs CBC & Chem 7: 09/10/21 04:55 09/10/21 04:55 Labs: Abnormal Lab Results - Last 24 Hours (Table) 09/09/21 09/09/21 09/09/21 Range/Units 14:41 16:21 21:32 RBC (4.30-5.90) m/uL Hgb (13.0-17.5) gm/dL Hct (39.0-53.0) % MCHC (31.0-37.0) g/dL Lymphocytes # (1.0-4.8) k/uL APTT 42.4 H 41.8 H (22.0-30.0) sec Sodium 132 L (137-145) mmol/L Chloride 87 L (98-107) mmol/L Carbon Dioxide 38 H (22-30) mmol/L Glucose 107 H (74-99) mg/dL ALT (4-49) U/L Alkaline Phosphatase (38-126) U/L Total Protein (6.3-8.2) g/dL Albumin (3.5-5.0) g/dL 09/10/21 09/10/21 Range/Units 04:55 04:55 RBC 3.92 L (4.30-5.90) m/uL Hgb 10.3 L (13.0-17.5) gm/dL Hct 34.9 L (39.0-53.0) % MCHC 29.6 L (31.0-37.0) g/dL Lymphocytes # 0.5 L (1.0-4.8) k/uL APTT (22.0-30.0) sec Sodium 133 L (137-145) mmol/L Chloride 86 L (98-107) mmol/L Carbon Dioxide 39 H (22-30) mmol/L Glucose 104 H (74-99) mg/dL ALT 109 H (4-49) U/L Alkaline Phosphatase 252 H (38-126) U/L Total Protein 5.9 L (6.3-8.2) g/dL Albumin 3.0 L (3.5-5.0) g/dL Microbiology - Last 24 Hours (Table) 09/06/21 20:16 Blood Culture - Preliminary Blood No Growth after 72 hours 09/05/21 17:56 Blood Culture - Preliminary Blood No Growth after 96 hours Assessment and Plan (1) Elevated LFTs Narrative/Plan: This is a 60-year-old morbidly obese male with multiple medical comorbidities with a history of alcoholism. Who admits to drinking a case of beer or more a day who quit 7-8 years ago. He was admitted to the emergency department with right upper quadrant and epigastric pain was also associated with some shortness of breath. On admission he was noted to have elevation in his LFTs. Total bilirubin 0.8 AST 240 ALT 172 alkaline phosphatase 259, amylase 38, lipase 58. On 09/06/2021 he was noted to have an elevation in his lipase up to 3525, total bilirubin 3.7 AST 382 ALT 481 alk phos 416. Repeat lipase was 248, LFTs have been continuing to trend down. Patient states he still is having right upper qu adrant pain. Has not had a bowel movement in 3 days. Denies any nausea or vomiting. And is tolerating his diet. Patient with no previous history of liver disease, there is acute elevation in his LFTs which could be medication induced. There is no significant CBD dilation, no gallstones noted, unlikely we are dealing with biliary obstruction. Continue to monitor. Acute hepatitis panel negative. Patient likely had gallstone pancreatitis with passing of the stone. There was acute elevation of lipase, LFTs however since has been trending down. Again there was no evidence of gallstones on CT of the abdomen or ultrasound however presentation does appear as possible gallstone pancreatitis with passing of gallstone, therefore no ERCP is indicated. Current Visit: Yes Status: Acute Code(s): R79.89 - OTHER SPECIFIED ABNORMAL FINDINGS OF BLOOD CHEMISTRY SNOMED Code(s): 925431678 (2) Abdominal pain Current Visit: Yes Status: Acute Code(s): R10.9 - UNSPECIFIED ABDOMINAL PAIN SNOMED Code(s): 44423974 (3) Morbid obesity due to excess calories Current Visit: Yes Status: Acute Code(s): E66.01 - MORBID (SEVERE) OBESITY DUE TO EXCESS CALORIES SNOMED Code(s): 887428359 (4) DVT (deep venous thrombosis) Current Visit: Yes Status: Acute Code(s): I82.409 - ACUTE EMBOLISM AND THOMBOS UNSP DEEP VN UNSP LOWER EXTREMITY SNOMED Code(s): 389429218 Plan: 1. Continue symptomatic and supportive care 2. Diet per recommendations from surgical services 3. Hepatitis panel ordered 4. Repeat daily CMP 5. Avoid hepatotoxic medications 6. Protonix 40 mg twice a day 7. No plans on endoscopic evaluation Thank you for this consultation, we will continue to follow. Dr. Flakita Thompson I agree with the dictator's note, documented as a scribe by Maria Guadalupe Ramirez.
[2021-09-10] MEDS ORDERED: LACTATED RINGERS 1,000 ML IV ONE ×2 (15:16→20:07)
[2021-09-10] MEDS ORDERED: LIDOCAINE 1% (10MG/ML) FOR IV START INTRADERMA ONE (15:22)
[2021-09-10] MEDS ORDERED: ONDANSETRON 4 MG/2 ML VIAL IVP ONE (15:28)
[2021-09-10] MEDS ORDERED: DEXAMETHASONE SOD PHOSPHATE 4 MG/ML 1 ML VIAL IVP ONE (15:28)
[2021-09-10] MEDS ORDERED: ONDANSETRON 4 MG/2 ML VIAL ONE (17:55)
[2021-09-10] MEDS ORDERED: NEOSTIGMINE 1 MG/ML 10 ML VIAL ONE (17:55)
[2021-09-10] MEDS ORDERED: LIDOCAINE 1% INJ 10MG/ML (20 ML MDV) ONE (17:55)
[2021-09-10] MEDS ORDERED: GLYCOPYRROLATE 0.2 MG/ML 2 ML VIAL ONE (17:55)
[2021-09-10] MEDS ORDERED: KETOROLAC 15 MG/ML 1 ML VIAL ONE (17:55)
[2021-09-10] MEDS ORDERED: ROCURONIUM 10 MG/ML (5 ML VIAL) IV ONE (17:55)
[2021-09-10] MEDS ORDERED: fentaNYL (PF) 50 MCG/ML 2 ML AMP ONE (17:55)
[2021-09-10] MEDS ORDERED: SUCCINYLCHOLINE CHLORIDE 100 MG/5 ML SYR IV ONE (17:55)
[2021-09-10] MEDS ORDERED: PROPOFOL 10 MG/ML 20 ML VIAL IV ONE (17:55)
[2021-09-10] MEDS ORDERED: DEXAMETHASONE SOD PHOSPHATE 10 MG/ML 1 ML VIAL ONE (17:55)
[2021-09-10] MEDS ORDERED: BUPIVACAINE (PF) 0.25% 30 ML VIAL SQ ONE (18:47)
--- NOTE | 2021-09-10 18:49 | P.OP ---
Date of Procedure: 09/10/21 Preoperative Diagnosis: Cholecystitis Postoperative Diagnosis: Cholecystitis Procedure(s) Performed: Laparoscopic cholecystectomy Anesthesia: PER Surgeon: Robb Vigil Estimated Blood Loss (ml): 5 Pathology: other (Gallbladder) Condition: stable Disposition: PACU Description of Procedure: The patient was placed on the operating table. The patient received a general endotracheal tube anesthesia. The patients abdomen was prepped and draped in the usual sterile fashion. Through an infraumbilical stab incision, the fascia of the anterior abdominal wall was grasped with a pair of Kochers and then the Veress needle was placed in the peritoneal cavity. Position of the Veress needle was confirmed with positive drop test. The abdomen was then insufflated. After adequate insufflation, the 10 mm trocar was placed in the peritoneal cavity. Following this the laparoscope was placed in the peritoneal cavity. The patient was placed in the head-up, right side up position and then a 5 mm trocar was placed in the right lateral and right subcostal position under direct visualization. A 8 mm trocar was placed in the epigastric position. The gallbladder was grasped in the fundus and infundibulum. Traction on the gallbladder was placed in the lateral and the cephalad positions. The triangle of Calot was visualized.. The cystic duct was bluntly dissected until the union of the cystic duct and common bile duct was seen. A critical view of safety was achieved. The cystic duct was then divided and sealed with the Harmonic scissors. A PDS Endoloop was then placed throughout the cystic duct stump. The cystic artery divided and sealed with the Harmonic scissors. The gallbladder was then removed from the liver bed using Harmonic scissors. The gallbladder was then extracted through the epigastric port site. Operative field was checked for any bleeding spots and Harmonic scissors was used to coagulate the liver bed. The abdomen was irrigated. The trocars were removed. The skin was closed using interrupted 3-0 Vicryl suture. Dermabond dressing were applied. The patient tolerated the procedure well.
[2021-09-10] MEDS ORDERED: ALBUTEROL NEBULIZED 2.5 MG/3 ML INHALATION ONE ×2 (19:05→19:07)
[2021-09-10] MEDS: HYDROmorphone 0.5 MG/0.5 ML SYRINGE IVP PRN ×3 (19:09→19:40)
--- NOTE | 2021-09-10 19:41 | PN ---
PROGRESS NOTE DATE OF SERVICE: 09/10/2021 This 60-year-old gentleman who was admitted with a right pleural effusion as well as right-sided pneumonia also had gallbladder issues. Patient also had gallstone pancreatitis. Surgery is planning a laparoscopic cholecystectomy. No chest pain. No palpitations. No fever. PHYSICAL EXAMINATION: Alert and oriented x3. Pulse 70, blood pressure 125/60, respiration 20, temperature 97.2, pulse ox 94% on 3 L. HEENT: Conjunctivae normal. Oral mucosa moist. NECK: No jugular venous distention. No lymph node enlargement. CARDIOVASCULAR: S1, S2, muffled. No S3, no S4, RESPIRATORY: Diminished breath sounds at the bases. A few scattered rhonchi. ABDOMEN: Soft. Mild discomfort ( ). LEGS: No edema, no swelling. NERVOUS SYSTEM: No focal deficits. LABS: WBC 7.2, hemoglobin 10.3, and APTT noted. Sodium 133. The LFTs are noted. ASSESSMENT: 1. Right-sided pleural effusion as well as right-sided pneumonia and parapneumonic effusion with possible sepsis, present on admission. 2. History of fever. 3. Possible acute pancreatitis and gallstone pancreatitis. 4. Acute bilateral leg cellulitis, left more than the right. 5. Possible CBD stone and gallstone pancreatitis with improving labs. 6. Elevated alkaline phosphatase. 7. Possibly congestive heart failure acute exacerbation, ejection fraction unknown. 8. Hyponatremia. 9. Elevated D-dimer with chronic DVT of the right leg, on IV heparin. 10.Anemia, normocytic. 11.Elevated AST, alkaline phosphatase and possible acute hepatitis or obstructive uropathy of undetermined origin with possible CBD stone, which the patient might have passed. 12.History of atrial fibrillation. 13.Asthma, COPD. 14.History of cerebrovascular accident, transient ischemic attack. 15.Diabetes mellitus type 2. 16.History of DVT. 17.History of gastroesophageal reflux disease. 18.History of gastrointestinal bleed. 19.Hypertension. 20.Hyperlipidemia. 21.History of DJD. 22.History of pulmonary embolism. 23.History of sleep apnea. 24.History of recent right thoracocentesis. 25.History of bilateral peripheral neuropathy. 26.History of pseudoseizures and extensive workup at [facility]. 27.History of MRSA. 28.History of appendectomy. 29.History of bariatric surgery. 30.History of anxiety, depression, bipolar, panic disorder schizoaffective disorder. 31.Remote history of nicotine dependence. 32.Obesity with body mass index 39.1. 33.FULL CODE. RECOMMENDATIONS AND DISCUSSION: I recommend to continue current management and symptomatic treatment. Otherwise, at this time repeat labs, laparoscopic cholecystectomy by surgery. Guarded prognosis because of multiple complex medical issues and further recommendations to follow. MMODL / IJN: [id number] /
[2021-09-10] MEDS: HYDROmorphone 1 MG/ML 1 ML SYRINGE IVP PRN (21:51)
[2021-09-10] MEDS: OLANZapine 10 MG TAB PO SCH (21:52)
[2021-09-10] MEDS: ATORVASTATIN 10 MG TAB PO SCH (21:53)
[2021-09-11] MEDS: CEFEPIME 2 GM in SODIUM CHLORIDE 0.9% 100 ML IVPB SCH ×3 (00:01→16:15)
[2021-09-11] MEDS: HYDROmorphone 1 MG/ML 1 ML SYRINGE IVP PRN ×4 (04:04→16:16)
--- NOTE | 2021-09-11 07:13 | PN ---
PROGRESS NOTE DATE OF SERVICE: 09/10/2021. REASON FOR FOLLOWUP: Gallstone pancreatitis. INTERVAL HISTORY: The patient is afebrile. The patient has been . The patient is status post laparoscopic cholecystectomy. Patient tolerated the procedure. No chest pain. No worsening abdominal pain. No diarrhea. PHYSICAL EXAMINATION: Blood pressure is 186/75, pulse of 80, temperature is 98.5. He is 93% on 4 L nasal cannula. General description is a middle-aged male lying in bed in no distress. Respiratory system: Unlabored breathing, clear to auscultation anteriorly. Heart S1, S2. Regular rate and rhythm. Abdomen soft, no tenderness. Left leg superficial wound. No drainage. LABS: Hemoglobin is 10.1, white count 7.3. Creatinine 0.75. DIAGNOSTIC IMPRESSION AND PLAN: 1. Patient admitted to the hospital with sepsis secondary to gallstone pancreatitis status post laparoscopic cholecystectomy. The patient is covered with that will continue while monitoring his clinical course closely. 2. Left leg wound now cellulitis. Local wound care with dry Aquacel silver dressing and Phil wrap. Continue supportive care. MMODL / IJN: [id number] /
[2021-09-11] MEDS: NON FORMULARY DRUG (Buprenorphine Hcl [Belbuca] 450 MCG Film) SUBLINGUAL SCH ×2 (08:18→21:18)
[2021-09-11] MEDS: LACTATED RINGERS 1,000 ML IV SCH (08:19)
[2021-09-11] MEDS: GABAPENTIN 300 MG CAP PO SCH ×3 (08:31→21:17)
[2021-09-11] MEDS: DULoxetine HCL 60 MG CAPSULE.DR PO SCH (08:31)
[2021-09-11] MEDS: METOPROLOL TARTRATE 25 MG TAB PO SCH ×2 (08:31→21:17)
[2021-09-11] MEDS: FUROSEMIDE 40 MG TAB PO SCH ×2 (08:31→16:18)
[2021-09-11] MEDS: PANTOPRAZOLE 40 MG TABLET PO SCH (08:31)
[2021-09-11] MEDS: POTASSIUM CHLORIDE ER 20 MEQ TAB.ER PO SCH ×3 (08:31→21:17)
[2021-09-11] MEDS: SPIRONOLACTONE 25 MG TAB PO SCH ×2 (08:31→21:17)
[2021-09-11] MEDS: polyethylene glycoL 3350 17 GM POWD.PACK PO SCH (08:31)
[2021-09-11] MEDS: DILTIAZEM ORAL 30 MG TAB PO SCH ×3 (08:32→21:17)
[2021-09-11] MEDS: IPRATROPIUM-ALBUTEROL 3 ML NEB INHALATION SCH ×3 (08:43→19:56)
[2021-09-11 09:29] LABS: Basophils # (A) 0.02 X 10*3/uL (0.00-0.10); Basophils % (A) 0.2 %; Eosinophils # (A) 0 X 10*3/uL (0.04-0.35); Eosinophils % (A) 0 %; HCT 34.6 % (39.6-50.0); HGB 10.2 g/dL (13.0-17.0); Lymphocytes # (A) 0.22 X 10*3/uL (0.90-5.00); MCHC 29.5 g/dL (32.0-37.0); Mean Platelet Volume 9.5 fL (9.5-12.2); Monocytes # (A) 0.33 X 10*3/uL (0.20-1.00); Neutrophils # (A) 10.36 X 10*3/uL (1.80-7.70); Neutrophils % (A) 93.5 %; Platelet Count 296 X 10*3/uL (140-440); RBC 3.93 X 10*6/uL (4.40-5.60); RDW 15.2 % (11.5-14.5); WBC 11.07 X 10*3/uL (4.50-10.00)
[2021-09-11 09:53] LABS: African American GFR (CKD) 113.6 (60.0-200.0); Albumin 3.4 g/dL (3.8-4.9); Albumin/Globulin Ratio 1.34 (1.60-3.17); Anion Gap 10.4 mmol/L (4.00-12.00); BUN/Creat Ratio 20.98 Ratio (12.00-20.00); Blood Urea Nitrogen 16.7 mg/dL (9.0-27.0); Calcium 9.4 mg/dL (8.7-10.3); Carbon Dioxide 35.2 mmol/L (21.6-31.8); Globulin 2.6 g/dL (1.6-3.3); Potassium 5.5 mmol/L (3.5-5.5); Total Bilirubin 0.5 mg/dL (0.30-1.20)
--- NOTE | 2021-09-11 11:07 | P.PN ---
Subjective Patient is a pleasant 60-year-old male with a past medical history of atrial fibrillation, congestive heart failure, COPD, CVA, TIA, type 2 diabetes, DVT, GERD, GI bleed, hypertension, degenerative disc disease, pulmonary embolism who initially presented to the hospital with abdominal pain and possible cholecystitis. No history of CAD normal coronary arteries on cath in 2013. Cardiology was consulted for the patient's congestive heart failure and complex cardiac history. Patient follows with Dr. Borja. Patient reports that he is always swollen, and cannot elevate his legs at home. He states that since he's been the hospital the swelling in his lower legs has improved. He does report that he is always short of breath as well. The patient is also reporting chest pain, however it is low down in his chest and is felt to be due to a current diagnosis of pancreatitis. D-dimer was 1.84 and a CTA was completed which shows no pulmonary embolism, right pleural effusion, right lower lobe consolidation and atelectasis. Patient did have a venous Doppler of the lower extremities completed and was found that he had a chronic DVT in the right leg from this from all this popliteal. Echocardiogram revealed EF of 5055 percent, LA is mildly dilated, aneurysmal interatrial septum, mild aortic regurgitation with a peak/mean gradient of 12 mmHg/5 mmHg, mild mitral regurgitation, mild tricuspid regurgitation, moderate pulmonary hypertension with RVSP of 47 mmHg, aortic root is dilated 4.7 cm 09/11/21 Patient seen and examined at bedside, no acute distress. He is POD #1 after Laparoscopic cholecystectomy with Dr. Vigil on 09/10/21. He does have abdominal pain. He's currently maintained on PO Lasix 40 mg twice a day, atorvastatin 10 mg daily, Cardizem 30 mg TID, spironolactone 25 mg BID, Metoprolol tartrate 25 mg twice a day. Patient with 1.2 L urine output over the past 24 hours. Laboratory data reviewed from yesterday WBC WBC 11, hemoglobin 10.2, platelets 296, sodium 134, potassium 5.5, BUN 16, serum creatinine 0.8. Blood pressure 156/71, heart rate 66, afebrile, maintaining oxygen saturations on 4 L nasal cannula GENERAL: In no acute distress NECK: Supple without JVD or thyromegaly. LUNGS: Breath sounds diminished to auscultation bilaterally. Respiration equal and unlabored. No wheezes, rales or rhonchi. HEART: Regular rate and rhythm without murmurs, rubs or gallops. S1 and S2 hear d. EXTREMITIES: Normal range of motion, moderate edema bilateral lower legs, 2+ pitting. No clubbing or cyanosis. Peripheral pulses intact and strong. ASSESSMENT: Acute on chronic diastolic heart failure Concern for right lower lobe pneumonia on CT scan Leukocytosis Fevers Hypertension Paroxysmal atrial fibrillation on Xarelto COPD History of CVA/TIA Type 2 Diabetes History of DVT GERD Status post Laparoscopic cholecystectomy with Dr. Vigil on 09/10/21. PLAN: -From a cardiology perspective we will continue current medical regimen with Lasix PO 40 mg twice a day, atorvastatin 10 mg daily, Cardizem 30 mg TID, spironolactone 25 mg BID, Metoprolol tartrate 25 mg BID. -Cardiac telemetry -Per surgery ok to restart Xarelto today, will start patient's home Xarelto 20mg daily -Further recommendations based on clinical course. Thank you for allowing us to participate in the care of this patient. Do not hesitate to reconsult us if the need arises. Objective - Vital Signs Vital signs: Vital Signs Temp 98.5 F 09/11/21 08:00 Pulse 72 09/11/21 08:55 Resp 18 09/11/21 08:00 BP 156/71 09/11/21 08:00 Pulse Ox 97 09/11/21 08:43 Intake & Output 09/10/21 09/11/21 09/11/21 18:59 06:59 18:59 Intake Total 784.063 150 Output Total 608 651 400 Balance 176.063 -501 -400 Weight 228.863 kg 231.04 kg Intake: IV 600 150 Intake, IV Titration 184.063 Amount Heparin Sod,Pork in 0.45% 184.063 NaCl 25,000 unit In 0.45 % NaCl 1 250ml.bag @ 4. 899 UNITS/KG/HR 10 mls/hr IV .Q24H [facility] Rx#: [id number] Output: Urine 600 650 400 Stool 1 1 Urine/Stool Mix 2 Estimated Blood Loss 5 Other: Voiding Method Urinal Urinal # Voids 1 - Labs CBC & Chem 7: 09/11/21 06:05 09/11/21 06:05 Labs: Abnormal Lab Results - Last 24 Hours (Table) 09/11/21 09/11/21 Range/Units 06:05 06:05 WBC 11.07 H (4.50-10.00) X 10*3/uL RBC 3.93 L (4.40-5.60) X 10*6/uL Hgb 10.2 L (13.0-17.0) g/dL Hct 34.6 L (39.6-50.0) % MCH 26.0 L (27.0-32.0) pg MCHC 29.5 L (32.0-37.0) g/dL RDW 15.2 H (11.5-14.5) % Immature Gran # 0.14 H (0.00-0.04) X 10*3/uL Neutrophils # 10.36 H (1.80-7.70) X 10*3/uL Lymphocytes # 0.22 L (0.90-5.00) X 10*3/uL Eosinophils # 0 L (0.04-0.35) X 10*3/uL Sodium 134 L (135-145) mmol/L Chloride 88 L (96-109) mmol/L Carbon Dioxide 35.2 H (21.6-31.8) mmol/L BUN/Creatinine Ratio 20.98 H (12.00-20.00) Ratio Glucose 270 H (70-110) mg/dL ALT 79 H (10-49) U/L Alkaline Phosphatase 258 H (41-126) U/L Total Protein 6.0 L (6.2-8.2) g/dL Albumin 3.4 L (3.8-4.9) g/dL Albumin/Globulin Ratio 1.34 L (1.60-3.17) g/dL Microbiology - Last 24 Hours (Table) 09/06/21 20:16 Blood Culture - Preliminary Blood No Growth after 96 hours 09/05/21 17:56 Blood Culture - Preliminary Blood No Growth after 120 hours
--- NOTE | 2021-09-11 14:43 | P.PN ---
Subjective Progress Note Date: 09/11/21 CHIEF COMPLAINT: Abdominal pain HISTORY OF PRESENT ILLNESS: Patient is status post laparoscopic cholecystectomy. His pain is controlled. He is tolerating diet. Afebrile. WBC 11.07 hemoglobin 10.2 AST 18 ALT trending down from 109 to 79 alk phos staying about the same at 258 PHYSICAL EXAM: VITAL SIGNS: Reviewed. GENERAL: Well-developed in no acute distress. HEENT: No sclera icterus. Extraocular movements grossly intact. Moist buccal mucosa. Head is atraumatic, normocephalic. ABDOMEN: Soft. Obese Nondistended. Incision sites with dry blood noted NEUROLOGIC: Alert and oriented. Cranial nerves II through XII grossly intact. ASSESSMENT: 1. Cholecystitis status post laparoscopic cholecystectomy 2. Suspected gallstone pancreatitis. Patient may have passed a stone. PLAN: -Patient is stable for discharge from surgical standpoint when medically cleared -Patient can restart anticoagulation from surgical standpoint -Continue regular diet -Continue pain medication as needed -Encouraged patient to use incentive spirometer -Encouraged patient to increase activity -Continue antibiotics per ID Physician Conservation Agent note has been reviewed by physician. Signing provider agrees with the documented findings, assessment, and plan of care. Objective - Vital Signs Vital signs: Vital Signs Temp 98.5 F 09/11/21 08:00 Pulse 75 09/11/21 13:00 Resp 18 09/11/21 08:00 BP 156/71 09/11/21 08:00 Pulse Ox 97 09/11/21 08:43 Intake & Output 09/10/21 09/11/21 09/11/21 18:59 06:59 18:59 Intake Total 784.063 150 Output Total 608 651 400 Balance 176.063 -501 -400 Weight 228.863 kg 231.04 kg Intake: IV 600 150 Intake, IV Titration 184.063 Amount Heparin Sod,Pork in 0.45% 184.063 NaCl 25,000 unit In 0.45 % NaCl 1 250ml.bag @ 4. 899 UNITS/KG/HR 10 mls/hr IV .Q24H [facility] Rx#: [id number] Output: Urine 600 650 400 Stool 1 1 Urine/Stool Mix 2 Estimated Blood Loss 5 Other: Voiding Method Urinal Urinal # Voids 1 - Labs CBC & Chem 7: 09/11/21 06:05 09/11/21 06:05 Labs: Abnormal Lab Results - Last 24 Hours (Table) 09/11/21 09/11/21 Range/Units 06:05 06:05 WBC 11.07 H (4.50-10.00) X 10*3/uL RBC 3.93 L (4.40-5.60) X 10*6/uL Hgb 10.2 L (13.0-17.0) g/dL Hct 34.6 L (39.6-50.0) % MCH 26.0 L (27.0-32.0) pg MCHC 29.5 L (32.0-37.0) g/dL RDW 15.2 H (11.5-14.5) % Immature Gran # 0.14 H (0.00-0.04) X 10*3/uL Neutrophils # 10.36 H (1.80-7.70) X 10*3/uL Lymphocytes # 0.22 L (0.90-5.00) X 10*3/uL Eosinophils # 0 L (0.04-0.35) X 10*3/uL Sodium 134 L (135-145) mmol/L Chloride 88 L (96-109) mmol/L Carbon Dioxide 35.2 H (21.6-31.8) mmol/L BUN/Creatinine Ratio 20.98 H (12.00-20.00) Ratio Glucose 270 H (70-110) mg/dL ALT 79 H (10-49) U/L Alkaline Phosphatase 258 H (41-126) U/L Total Protein 6.0 L (6.2-8.2) g/dL Albumin 3.4 L (3.8-4.9) g/dL Albumin/Globulin Ratio 1.34 L (1.60-3.17) g/dL Microbiology - Last 24 Hours (Table) 09/06/21 20:16 Blood Culture - Preliminary Blood No Growth after 96 hours 09/05/21 17:56 Blood Culture - Preliminary Blood No Growth after 120 hours
[2021-09-11] MEDS: RIVAROXABAN 20 MG TAB PO SCH (16:18)
--- NOTE | 2021-09-11 17:21 | P.PN ---
Subjective Progress Note Date: 09/11/21 Principal diagnosis: Abdominal pain, elevated LFTs This a 60-year-old morbidly obese patient with multiple comorbidities who presented to the emergency department with complaints of abdominal pain. Patient states abdominal pain continues at mostly in the right upper quadrant re gion. He had a CT of the abdomen and pelvis that showed some consolidation and atelectasis in the right lower lobe and right pleural effusion mild ectasia of the biliary tree. Bile ducts not significantly different from old exam. Gallbladder ultrasound showed no CBD dilation with no obvious gallstones or hydropic gallbladder. On 09/06 the patient had an increase in his total bilirubin to 3.7 AST 382 ALT 481 alkaline phosphatase 416 and a lipase of 3525. Since then bilirubin, LFTs, and lipase has trended down. Hepatitis panel nonreactive. Patient does have a history of significant alcohol abuse in the past. Patient is postop day 1 for cholecystectomy. Patient states right upper quadr ant pain has improved. He is just having surgical discomfort. No acute changes through the night. LFTs continue to trend down. Objective - Vital Signs Vital signs: Vital Signs Temp 98.5 F 09/11/21 08:00 Pulse 72 09/11/21 08:55 Resp 18 09/11/21 08:00 BP 156/71 09/11/21 08:00 Pulse Ox 97 09/11/21 08:43 Intake & Output 09/10/21 09/11/21 09/11/21 18:59 06:59 18:59 Intake Total 784.063 150 Output Total 608 651 400 Balance 176.063 -501 -400 Weight 228.863 kg 231.04 kg Intake: IV 600 150 Intake, IV Titration 184.063 Amount Heparin Sod,Pork in 0.45% 184.063 NaCl 25,000 unit In 0.45 % NaCl 1 250ml.bag @ 4. 899 UNITS/KG/HR 10 mls/hr IV .Q24H [facility] Rx#: [id number] Output: Urine 600 650 400 Stool 1 1 Urine/Stool Mix 2 Estimated Blood Loss 5 Other: Voiding Method Urinal Urinal # Voids 1 - Exam General appearance: The patient is alert, oriented, appears in no acute distress. Morbidly obese. HET: Head is normocephalic and atraumatic. Conjunctiva pink. Sclera anicteric. Neck: Supple without lymphadenopathy. Abdomen: Soft, right upper quadrant tenderness, diffuse tenderness, nondistended with bowel sounds. Morbidly obese. No guarding or rigidity. Extremities: Normal skin color and turgor. No pedal edema Skin: No rashes, no jaundice Neurological: No focal deficits. Alert and oriented 3 - Labs CBC & Chem 7: 09/11/21 06:05 09/11/21 06:05 Labs: Abnormal Lab Results - Last 24 Hours (Table) 09/11/21 09/11/21 Range/Units 06:05 06:05 WBC 11.07 H (4.50-10.00) X 10*3/uL RBC 3.93 L (4.40-5.60) X 10*6/uL Hgb 10.2 L (13.0-17.0) g/dL Hct 34.6 L (39.6-50.0) % MCH 26.0 L (27.0-32.0) pg MCHC 29.5 L (32.0-37.0) g/dL RDW 15.2 H (11.5-14.5) % Immature Gran # 0.14 H (0.00-0.04) X 10*3/uL Neutrophils # 10.36 H (1.80-7.70) X 10*3/uL Lymphocytes # 0.22 L (0.90-5.00) X 10*3/uL Eosinophils # 0 L (0.04-0.35) X 10*3/uL Sodium 134 L (135-145) mmol/L Chloride 88 L (96-109) mmol/L Carbon Dioxide 35.2 H (21.6-31.8) mmol/L BUN/Creatinine Ratio 20.98 H (12.00-20.00) Ratio Glucose 270 H (70-110) mg/dL ALT 79 H (10-49) U/L Alkaline Phosphatase 258 H (41-126) U/L Total Protein 6.0 L (6.2-8.2) g/dL Albumin 3.4 L (3.8-4.9) g/dL Albumin/Globulin Ratio 1.34 L (1.60-3.17) g/dL Microbiology - Last 24 Hours (Table) 09/06/21 20:16 Blood Culture - Preliminary Blood No Growth after 96 hours 09/05/21 17:56 Blood Culture - Preliminary Blood No Growth after 120 hours Assessment and Plan (1) Elevated LFTs Narrative/Plan: This is a 60-year-old morbidly obese male with multiple medical comorbidities with a history of alcoholism. Who admits to drinking a case of beer or more a day who quit 7-8 years ago. He was admitted to the emergency department with right upper quadrant and epigastric pain was also associated with some shortness of breath. On admission he was noted to have elevation in his LFTs. Total bilirubin 0.8 AST 240 ALT 172 alkaline phosphatase 259, amylase 38, lipase 58. On 09/06/2021 he was noted to have an elevation in his lipase up to 3525, total bilirubin 3.7 AST 382 ALT 481 alk phos 416. Repeat lipase was 248, LFTs have been continuing to trend down. Patient states he still is having right upper quadrant pain. Has not had a bowel movement in 3 days. Denies any nausea or vomiting. And is tolerating his diet. Patient with no previous history of liver disease, there is acute elevation in his LFTs which could be medication induced. There is no significant CBD dilation, no gallstones noted, unlikely we are dealing with biliary obstruction. Continue to monitor. Acute hepatitis panel negative. Patient likely had gallstone pancreatitis with passing of the stone. There was acute elevation of lipase, LFTs however since has been trending down. Again there was no evidence of gallstones on CT of the abdomen or ultrasound however presentation does appear as possible gallstone pancreatitis with passing of g allstone, therefore no ERCP is indicated. Current Visit: Yes Status: Acute Code(s): R79.89 - OTHER SPECIFIED ABNORMAL FINDINGS OF BLOOD CHEMISTRY SNOMED Code(s): 988107441 (2) Abdominal pain Current Visit: Yes Status: Acute Code(s): R10.9 - UNSPECIFIED ABDOMINAL PAIN SNOMED Code(s): 14518417 (3) Morbid obesity due to excess calories Current Visit: Yes Status: Acute Code(s): E66.01 - MORBID (SEVERE) OBESITY DUE TO EXCESS CALORIES SNOMED Code(s): 551517618 (4) DVT (deep venous thrombosis) Current Visit: Yes Status: Acute Code(s): I82.409 - ACUTE EMBOLISM AND THOMBOS UNSP DEEP VN UNSP LOWER EXTREMITY SNOMED Code(s): 086197134 Plan: 1. Continue symptomatic and supportive care 2. Diet per recommendations from surgical services 3. No plans on endoscopic evaluation Thank you for this consultation, we will sign off at this time. Dr. Flakita Thompson I agree with the dictator's note, documented as a scribe by Maria Guadalupe Ramirez.
--- NOTE | 2021-09-11 18:26 | PN ---
PROGRESS NOTE DATE OF SERVICE: 09/11/2021 This 60-year-old gentleman who was admitted with right-sided pleural effusion also had significant cholecystitis. The patient underwent laparoscopic cholecystectomy by Dr. Vigil. No chest pain. No palpitations. No fever. PHYSICAL EXAMINATION: Alert and oriented x3. Pulse 64, blood pressure 144/69, respirations 16, temperature 98.1, pulse ox 93% on 2 L. HEENT: Conjunctivae normal. NECK: No jugular venous distention. CARDIOVASCULAR: S1, S2 muffled. RESPIRATION: Breath sounds diminished at the bases. Scattered rhonchi and crackles. ABDOMEN: Soft, obese. Status post surgery. LEGS: No edema. No swelling. NERVOUS SYSTEM: No focal deficit. LABS: WBC 7.07. Otherwise, APTT noted. Sodium 134. LFTs are noted. Lipase was normal yesterday. ASSESSMENT: 1. Right-sided pleural effusion as well as right-sided pneumonia and parapneumonic effusion with possible sepsis, present on admission. 2. Fever, present on admission. 3. Acute cholecystitis, status post laparoscopic cholecystectomy. 4. Possible acute pancreatitis and gallstone pancreatitis. 5. Acute bilateral leg cellulitis, left more than the right. 6. Possible common bile duct stone and gallstone pancreatitis with improving labs. 7. Elevated alkaline phosphatase. 8. Possible congestive heart failure, acute exacerbation. Ejection fraction unknown. 9. Hyponatremia. 10.Elevated D-dimer with chronic deep vein thrombosis of the right leg, on IV heparin. 11.Anemia, normocytic. 12.Elevated AST, alkaline phosphatase and possible acute hepatitis of obstructive hepatopathy of undetermined origin and possibly common bile duct the patient might have passed. 13.History of atrial fibrillation. 14.Asthma, chronic obstructive pulmonary disease. 15.History of cerebrovascular accident, transient ischemic attack. 16.Diabetes mellitus, type 2. 17.History of deep vein thrombosis. 18.History of gastroesophageal reflux disease. 19.History of gastrointestinal bleed. 20.Hypertension. 21.Hyperlipidemia. 22.History of degenerative joint disease. 23.History of pulmonary embolism. 24.History of sleep apnea. 25.History of recent right thoracocentesis. 26.History of bilateral peripheral neuropathy. 27.History of pseudoseizures and extensive workup at [facility]. 28.History of MRSA. 29.History of appendectomy. 30.Super morbid obesity. 31.History of bariatric surgery. 32.History of anxiety, depression, bipolar and schizoaffective disorder. 33.Remote history of nicotine dependence. 34.FULL CODE. RECOMMENDATIONS AND DISCUSSION: I recommend to continue current medications, continue with symptomatic treatment. Continue the empiric antibiotics. Repeat labs. Closely follow with multiple consultants. Guarded prognosis because of multiple complex medical issues. Further recommendations to follow. MMODL / IJN: [id number] /
[2021-09-11] MEDS: ATORVASTATIN 10 MG TAB PO SCH (21:17)
[2021-09-11] MEDS: OLANZapine 10 MG TAB PO SCH (21:17)
[2021-09-11] MEDS: ACETAMINOPHEN TAB 325 MG TAB PO PRN (21:23)
[2021-09-12] MEDS: CEFEPIME 2 GM in SODIUM CHLORIDE 0.9% 100 ML IVPB SCH ×3 (00:32→17:02)
[2021-09-12] MEDS: HYDROmorphone 1 MG/ML 1 ML SYRINGE IVP PRN ×5 (05:28→20:40)
[2021-09-12 06:46] LABS: ALT 74 U/L (4-49); AST 32 U/L (17-59); African American GFR (CKD) >90 (>60 ml/min/1.73 sqM); Albumin 3.2 g/dL (3.5-5.0); Alkaline Phosphatase 213 U/L (38-126); Blood Urea Nitrogen 24 mg/dL (9-20); Calcium 9.4 mg/dL (8.4-10.2); Chloride 86 mmol/L (98-107); Globulin 3.1 g/dL; Glucose 131 mg/dL (74-99); Non-African American GFR(CKD) >90 (>60 ml/min/1.73 sqM); Potassium 5.1 mmol/L (3.5-5.1); Sodium 134 mmol/L (137-145); Total Bilirubin 0.6 mg/dL (0.2-1.3); Total Protein 6.3 g/dL (6.3-8.2)
[2021-09-12] MEDS: PANTOPRAZOLE 40 MG TABLET PO SCH (06:59)
[2021-09-12] MEDS: POTASSIUM CHLORIDE ER 20 MEQ TAB.ER PO SCH ×3 (06:59→22:36)
[2021-09-12] MEDS: GABAPENTIN 300 MG CAP PO SCH ×3 (06:59→22:36)
[2021-09-12] MEDS: DULoxetine HCL 60 MG CAPSULE.DR PO SCH (06:59)
[2021-09-12] MEDS: METOPROLOL TARTRATE 25 MG TAB PO SCH ×2 (06:59→20:40)
[2021-09-12] MEDS: SPIRONOLACTONE 25 MG TAB PO SCH ×2 (06:59→20:40)
[2021-09-12] MEDS: DILTIAZEM ORAL 30 MG TAB PO SCH ×3 (06:59→22:36)
[2021-09-12] MEDS: polyethylene glycoL 3350 17 GM POWD.PACK PO SCH (06:59)
[2021-09-12] MEDS: FUROSEMIDE 40 MG TAB PO SCH ×2 (06:59→17:03)
[2021-09-12] MEDS: LACTATED RINGERS 1,000 ML IV SCH (07:00)
[2021-09-12] MEDS: NON FORMULARY DRUG (Buprenorphine Hcl [Belbuca] 450 MCG Film) SUBLINGUAL SCH ×2 (07:00→20:41)
[2021-09-12] MEDS: IPRATROPIUM-ALBUTEROL 3 ML NEB INHALATION SCH ×3 (07:34→19:43)
[2021-09-12 07:48] LABS: Carbon Dioxide 42 mmol/L (22-30)
[2021-09-12 07:50] LABS: Anion Gap 6 mmol/L
[2021-09-12 08:17] VITALS: BMI 65.6
--- NOTE | 2021-09-12 09:25 | XR ---
EXAMINATION TYPE: XR chest 1V portable DATE OF EXAM: 09/12/2021 COMPARISON: 09/05/2021 INDICATION: CHF TECHNIQUE: Single frontal view of the chest is obtained. FINDINGS: The heart size is moderately prominent. The pulmonary vasculature is normal. There is a moderate right pleural effusion. Some mild right compressive atelectasis may be present. IMPRESSION: 1. Moderate right pleural effusion with adjacent compressive atelectasis. There may be slight diminis hed pleural effusion from the comparison study.
[2021-09-12 09:28] LABS: Basophils # (A) 0.05 X 10*3/uL (0.00-0.10); Basophils % (A) 0.4 %; Eosinophils # (A) 0.04 X 10*3/uL (0.04-0.35); Eosinophils % (A) 0.3 %; HCT 33.8 % (39.6-50.0); HGB 10.1 g/dL (13.0-17.0); Lymphocytes # (A) 0.57 X 10*3/uL (0.90-5.00); Lymphocytes % (A) 4.5 %; MCH 26.6 pg (27.0-32.0); MCHC 29.9 g/dL (32.0-37.0); MCV 89.2 fL (80.0-97.0); Mean Platelet Volume 9.5 fL (9.5-12.2); Monocytes # (A) 0.95 X 10*3/uL (0.20-1.00); Monocytes % (A) 7.6 %; Neutrophils # (A) 10.64 X 10*3/uL (1.80-7.70); Neutrophils % (A) 84.8 %; Platelet Count 344 X 10*3/uL (140-440); RBC 3.79 X 10*6/uL (4.40-5.60); RDW 15.3 % (11.5-14.5); WBC 12.55 X 10*3/uL (4.50-10.00)
--- NOTE | 2021-09-12 10:53 | P.PN ---
Subjective Patient is a pleasant 60-year-old male with a past medical history of atrial fibrillation, congestive heart failure, COPD, CVA, TIA, type 2 diabetes, DVT, GERD, GI bleed, hypertension, degenerative disc disease, pulmonary embolism who initially presented to the hospital with abdominal pain and possible cholecystitis. No history of CAD normal coronary arteries on cath in 2013. Cardiology was consulted for the patient's congestive heart failure and complex cardiac history. Patient follows with Dr. Borja. Patient reports that he is always swollen, and cannot elevate his legs at home. He states that since he's been the hospital the swelling in his lower legs has improved. He does report that he is always short of breath as well. The patient is also reporting chest pain, however it is low down in his chest and is felt to be due to a current diagnosis of pancreatitis. D-dimer was 1.84 and a CTA was completed which shows no pulmonary embolism, right pleural effusion, right lower lobe consolidation and atelectasis. Patient did have a venous Doppler of the lower extremities completed and was found that he had a chronic DVT in the right leg from this from all this popliteal. Echocardiogram revealed EF of 5055 percent, LA is mildly dilated, aneurysmal interatrial septum, mild aortic regurgitation with a peak/mean gradient of 12 mmHg/5 mmHg, mild mitral regurgitation, mild tricuspid regurgitation, moderate pulmonary hypertension with RVSP of 47 mmHg, aortic root is dilated 4.7 cm 09/12/21 Patient seen and examined at bedside, no acute distress. He is POD #2 after Laparoscopic cholecystectomy with Dr. Vigil on 09/10/21. He does have abdominal pain. No chest pain or shortness of breath. He's currently maintained on PO Lasix 40 mg twice a day, atorvastatin 10 mg daily, Cardizem 30 mg TID, spironolactone 25 mg BID, Metoprolol tartrate 25 mg twice a day, Xarelto 20mg nightly. Patient with 3.3 L urine output over the past 24 hours. Laboratory data reviewed WBC 12.5, hemoglobin 10.1, platelets 344, sodium 134, potassium 5.1, carbon dioxide 42, BUN 24, serum creatinine 0.8, ALT 74, AST 32, alkaline phosphatase 213. Telemetry reviewed patient maintained sinus mechanism. Blood pressure 131/70, heart rate 74, afebrile, maintaining oxygen saturations on 3 L nasal cannula. GENERAL: In no acute distress NECK: Supple without JVD or thyromegaly. LUNGS: Breath sounds diminished to auscultation bilaterally. Respiration equal and unlabored. No wheezes, rales or rhonchi. HEART: Regular rate and rhythm without murmurs, rubs or gallops. S1 and S2 heard. EXTREMITIES: Normal range of motion, moderate edema bilateral lower legs, 1-2+ pitting. No clubbing or cyanosis. Peripheral pulses intact and strong. ASSESSMENT: Acute on chronic diastolic heart failure Concern for right lower lobe pneumonia on CT scan Leukocytosis Fevers Hypertension Paroxysmal atrial fibrillation on Xarelto COPD History of CVA/TIA Type 2 Diabetes History of DVT GERD Status post Laparoscopic cholecystectomy with Dr. Vigil on 09/10/21. PLAN: -From a cardiology perspective we will continue current medical regimen with Lasix PO 40 mg twice a day, atorvastatin 10 mg daily, Cardizem 30 mg TID, spironolactone 25 mg BID, Metoprolol tartrate 25 mg BID. -Per surgery ok to restart Xarelto. Xarelto was restarted 09/11. -Patient is stable from a cardiology perspective, we will follow the patient as needed. Please reach out with further questions or cocerns -Follow up with Dr. Borja outpatient Thank you for allowing us to participate in the care of this patient. Do not hesitate to reconsult us if the need arises. Objective - Vital Signs Vital signs: Vital Signs Temp 98.6 F 09/12/21 07:00 Pulse 74 09/12/21 07:50 Resp 16 09/12/21 08:00 BP 131/70 09/12/21 07:00 Pulse Ox 97 09/12/21 07:00 Intake & Output 09/11/21 09/12/21 09/12/21 18:59 06:59 18:59 Intake Total 400 Output Total 1745 1620 1050 Balance -1745 -1220 -1050 Weight 225.617 kg 225.617 kg Intake: Oral 400 Output: Urine 1745 1620 1050 Other: Voiding Method Urinal Urinal Urinal # Voids 1 3 # Bowel Movements 1 - Labs CBC & Chem 7: 09/12/21 05:45 09/12/21 05:45 Labs: Abnormal Lab Results - Last 24 Hours (Table) 09/12/21 09/12/21 Range/Units 05:45 05:45 WBC 12.55 H (4.50-10.00) X 10*3/uL RBC 3.79 L (4.40-5.60) X 10*6/uL Hgb 10.1 L (13.0-17.0) g/dL Hct 33.8 L (39.6-50.0) % MCH 26.6 L (27.0-32.0) pg MCHC 29.9 L (32.0-37.0) g/dL RDW 15.3 H (11.5-14.5) % Immature Gran # 0.30 H (0.00-0.04) X 10*3/uL Neutrophils # 10.64 H (1.80-7.70) X 10*3/uL Lymphocytes # 0.57 L (0.90-5.00) X 10*3/uL Sodium 134 L (137-145) mmol/L Chloride 86 L (98-107) mmol/L Carbon Dioxide 42 H* (22-30) mmol/L BUN 24 H (9-20) mg/dL Glucose 131 H (74-99) mg/dL ALT 74 H (4-49) U/L Alkaline Phosphatase 213 H (38-126) U/L Albumin 3.2 L (3.5-5.0) g/dL Microbiology - Last 24 Hours (Table) 09/06/21 20:16 Blood Culture - Preliminary Blood No Growth after 120 hours 09/05/21 17:56 Blood Culture - Final Blood No Growth after 144 hours
--- NOTE | 2021-09-12 14:51 | P.PN ---
Subjective Progress Note Date: 09/12/21 CHIEF COMPLAINT: Abdominal pain HISTORY OF PRESENT ILLNESS: Patient is status post laparoscopic cholecystectomy. Postop day #2. His pain is controlled. He is tolerating diet. He is having bowel movements and flatus. Afebrile. WBC 12.55 hemoglobin 10.1 platelets 344 sodium 134 potassium 5.1 BUN 24 creatinine 0.82 CO2 42 patient was complaining of a sore throat. Medicine service has ordered flu and Covid which were not detected Patient seen and examined with Dr. macias PHYSICAL EXAM: VITAL SIGNS: Reviewed. GENERAL: Well-developed in no acute distress. HEENT: No sclera icterus. Extraocular movements grossly intact. Moist buccal mucosa. Head is atraumatic, normocephalic. ABDOMEN: Soft. Obese Nondistended. Incision sites with dry blood noted NEUROLOGIC: Alert and oriented. Cranial nerves II through XII grossly intact. ASSESSMENT: 1. Cholecystitis status post laparoscopic cholecystectomy 2. Suspected gallstone pancreatitis. Patient may have passed a stone. 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 Signing provider agrees with the documented findings, assessment, and plan of care. Objective - Vital Signs Vital signs: Vital Signs Temp 98.6 F 09/12/21 07:00 Pulse 70 09/12/21 11:36 Resp 16 09/12/21 08:00 BP 131/70 09/12/21 07:00 Pulse Ox 97 09/12/21 07:00 Intake & Output 09/11/21 09/12/21 09/12/21 18:59 06:59 18:59 Intake Total 400 Output Total 1745 1620 1450 Balance -1745 -1220 -1450 Weight 225.617 kg 225.617 kg Intake: Oral 400 Output: Urine 1745 1620 1450 Other: Voiding Method Urinal Urinal Urinal # Voids 1 3 # Bowel Movements 1 - Labs CBC & Chem 7: 09/12/21 05:45 09/12/21 05:45 Labs: Abnormal Lab Results - Last 24 Hours (Table) 09/12/21 09/12/21 Range/Units 05:45 05:45 WBC 12.55 H (4.50-10.00) X 10*3/uL RBC 3.79 L (4.40-5.60) X 10*6/uL Hgb 10.1 L (13.0-17.0) g/dL Hct 33.8 L (39.6-50.0) % MCH 26.6 L (27.0-32.0) pg MCHC 29.9 L (32.0-37.0) g/dL RDW 15.3 H (11.5-14.5) % Immature Gran # 0.30 H (0.00-0.04) X 10*3/uL Neutrophils # 10.64 H (1.80-7.70) X 10*3/uL Lymphocytes # 0.57 L (0.90-5.00) X 10*3/uL Sodium 134 L (137-145) mmol/L Chloride 86 L (98-107) mmol/L Carbon Dioxide 42 H* (22-30) mmol/L BUN 24 H (9-20) mg/dL Glucose 131 H (74-99) mg/dL ALT 74 H (4-49) U/L Alkaline Phosphatase 213 H (38-126) U/L Albumin 3.2 L (3.5-5.0) g/dL Microbiology - Last 24 Hours (Table) 09/06/21 20:16 Blood Culture - Preliminary Blood No Growth after 120 hours 09/05/21 17:56 Blood Culture - Final Blood No Growth after 144 hours
[2021-09-12] MEDS: RIVAROXABAN 20 MG TAB PO SCH (17:03)
--- NOTE | 2021-09-12 18:19 | PN ---
PROGRESS NOTE DATE OF SERVICE: 09/12/2021 REASON FOR FOLLOWUP: Gallstone pancreatitis. Left leg wound. No cellulitis. INTERVAL HISTORY: The patient is afebrile. He is feeling slightly better today, breathing comfortably. No chest pain, shortness of breath or cough. Still has some abdominal pain. Nausea but no vomiting. No pain to the left leg. PHYSICAL EXAMINATION: Blood pressure 156/77 with a pulse of 78, temperature 99. He is 96% on 3 L nasal cannula. General description is a middle-aged male lying in bed in no distress. RESPIRATORY SYSTEM: Unlabored breathing. Clear to auscultation anteriorly. HEART: S1, S2. Regular rate and rhythm. ABDOMEN: Soft. Mildly distended. Left leg with some swelling. No redness or drainage. LABS: Hemoglobin is 10, white count 12.5, creatinine 0.82. DIAGNOSTIC IMPRESSION AND PLAN: Patient with gallstone pancreatitis in this patient who is status post laparoscopic cholecystectomy. Patient has a slight jump in white count. That will be monitored closely. The patient is currently covered with cefepime and the white count came down. He will transition to oral antibiotic on discharge. Left leg wound superficial with no cellulitis. Positive culture, likely representing colonization. No need for any systemic antibiotic therapy for that. MMODL / IJN: [id number] /
[2021-09-12] MEDS: ATORVASTATIN 10 MG TAB PO SCH (20:40)
[2021-09-12] MEDS: OLANZapine 10 MG TAB PO SCH (20:40)
[2021-09-13] MEDS: CEFEPIME 2 GM in SODIUM CHLORIDE 0.9% 100 ML IVPB SCH ×4 (00:52→23:32)
[2021-09-13] MEDS: HYDROmorphone 1 MG/ML 1 ML SYRINGE IVP PRN ×7 (05:06→22:51)
[2021-09-13] MEDS: IPRATROPIUM-ALBUTEROL 3 ML NEB INHALATION SCH ×3 (07:10→19:54)
[2021-09-13] MEDS: PANTOPRAZOLE 40 MG TABLET PO SCH (07:49)
[2021-09-13] MEDS: polyethylene glycoL 3350 17 GM POWD.PACK PO SCH (08:00)
[2021-09-13] MEDS: GABAPENTIN 300 MG CAP PO SCH ×3 (08:00→21:12)
[2021-09-13] MEDS: FUROSEMIDE 40 MG TAB PO SCH ×3 (08:01→17:10)
[2021-09-13] MEDS: DULoxetine HCL 60 MG CAPSULE.DR PO SCH (08:01)
[2021-09-13] MEDS: SPIRONOLACTONE 25 MG TAB PO SCH ×2 (08:01→21:13)
[2021-09-13] MEDS: METOPROLOL TARTRATE 25 MG TAB PO SCH ×2 (08:01→21:12)
[2021-09-13] MEDS: DILTIAZEM ORAL 30 MG TAB PO SCH ×3 (08:01→21:12)
[2021-09-13] MEDS: POTASSIUM CHLORIDE ER 20 MEQ TAB.ER PO SCH ×3 (08:01→21:13)
[2021-09-13] MEDS: NON FORMULARY DRUG (Buprenorphine Hcl [Belbuca] 450 MCG Film) SUBLINGUAL SCH ×2 (08:39→21:15)
--- NOTE | 2021-09-13 08:55 | P.PN ---
Subjective Progress Note Date: 09/12/21 This is a 60 year old male who was admitted for right side pleural effusion and also significant cholecystitis and recently underwent laparoscopic cholecystectomy and is being closely monitored. Surgery, ID, pulmonary, and cardiology following. Chest xray personally reviewed by me shows moderate right pleural effusion possibly slightly diminished from previous. Patient to continue with local wound care and continue IV cefepime with ID following closely. PT/OT to evaluate the patient. Labs: WBC 12.55, hgb 10.1, Na 134, potassium 5.1, BUN24, cr is 0.82 Review of systems: Constitutional: No reports of fatigue, fever, or chills Cardiovascular: No reports of chest pain or palpitations Respiratory: reports occasional shortness of breath with cough GI: No reports of nausea, vomiting, or diarrhea : No reports of dysuria or retention Neurovascular: Reports generalized weakness All medications have been reviewed Active Medications Acetaminophen (Acetaminophen Tab 325 Mg Tab) 650 mg PO Q6HR PRN PRN Reason: Fever and/ or Pain Last Admin: 09/11/21 21:23 Dose: 650 mg Documented by: Hydrocodone Bitart/Acetaminophen (Hydrocodone/Apap 5-325mg 1 Each Tab) 1 each PO Q6HR PRN PRN Reason: Pain Albuterol/Ipratropium (Ipratropium-Albuterol 3 Ml Neb) 3 ml INHALATION RT-QID PRN PRN Reason: Shortness Of Breath Or Wheezing Last Admin: 09/10/21 04:52 Dose: 3 ml Documented by: Albuterol/Ipratropium (Ipratropium-Albuterol 3 Ml Neb) 3 ml INHALATION RT-TID [facility] Last Admin: 09/13/21 07:10 Dose: 3 ml Documented by: Atorvastatin Calcium (Atorvastatin 10 Mg Tab) 10 mg PO HS [facility] Last Admin: 09/12/21 20:40 Dose: 10 mg Documented by: Bisacodyl (Bisacodyl 5 Mg Tablet.Dr) 10 mg PO DAILY PRN PRN Reason: Constipation Diltiazem HCl (Diltiazem Oral 30 Mg Tab) 30 mg PO TID [facility] Last Admin: 09/13/21 08:01 Dose: 30 mg Documented by: Docusate Sodium (Docusate 100 Mg Cap) 100 mg PO DAILY PRN PRN Reason: Constipation Last Admin: 09/09/21 09:13 Dose: 100 mg Documented by: Duloxetine HCl (Duloxetine Hcl 60 Mg Capsule.Dr) 60 mg PO DAILY [facility] Last Admin: 09/13/21 08:01 Dose: 60 mg Documented by: Furosemide (Furosemide 40 Mg Tab) 40 mg PO BID@0900,1600 [facility] Last Admin: 09/13/21 08:01 Dose: 40 mg Documented by: Gabapentin (Gabapentin 300 Mg Cap) 600 mg PO TID [facility] Last Admin: 09/13/21 08:00 Dose: 600 mg Documented by: Hydromorphone HCl (Hydromorphone 1 Mg/Ml 1 Ml Syringe) 1 mg IVP Q1HR PRN PRN Reason: Severe Pain Last Admin: 09/13/21 07:59 Dose: 1 mg Documented by: Cefepime HCl 2 gm/ Sodium (Chloride) 100 mls @ 25 mls/hr IVPB Q8HR [facility] Last Admin: 09/13/21 07:49 Dose: 25 mls/hr Documented by: Lactated Ringer's (Lactated Ringers) 1,000 mls @ 20 mls/hr IV .Q24H [facility] Last Admin: 09/12/21 07:00 Dose: Not Given Documented by: Lidocaine HCl (Lidocaine 1% (10mg/Ml) For Iv Start) 0.1 ml INTRADERMA PER PROTOCOL PRN PRN Reason: IV Start Metoprolol Tartrate (Metoprolol Tartrate 25 Mg Tab) 25 mg PO BID [facility] Last Admin: 09/13/21 08:01 Dose: 25 mg Documented by: Morphine Sulfate (Morphine Sulfate 4 Mg/Ml Syringe) 4 mg IV Q4HR PRN PRN Reason: Severe Pain Last Admin: 09/10/21 10:58 Dose: 4 mg Documented by: Naloxone HCl (Naloxone 0.4 Mg/Ml 1 Ml Vial) 0.2 mg IV Q2M PRN PRN Reason: Opioid Reversal Non-Formulary Medication (Buprenorphine Hcl [Belbuca]) 450 mcg SUBLINGUAL BID [facility] Last Admin: 09/12/21 20:41 Dose: Not Given Documented by: Olanzapine (Olanzapine 10 Mg Tab) 20 mg PO HS [facility] Last Admin: 09/12/21 20:40 Dose: 20 mg Documented by: Ondansetron HCl (Ondansetron 4 Mg/2 Ml Vial) 4 mg IVP Q8HR PRN PRN Reason: Nausea And Vomiting Last Admin: 09/08/21 19:47 Dose: 4 mg Documented by: Pantoprazole Sodium (Pantoprazole 40 Mg Tablet) 40 mg PO AC-BRKFST [facility] Last Admin: 09/13/21 07:49 Dose: 40 mg Documented by: Polyethylene Glycol (Polyethylene Glycol 3350 17 Gm Powd.Pack) 17 gm PO DAILY [facility] Last Admin: 09/13/21 08:00 Dose: 17 gm Documented by: Potassium Chloride (Potassium Chloride Er 20 Meq Tab.Er) 20 meq PO TID [facility] Last Admin: 09/13/21 08:01 Dose: 20 meq Documented by: Rivaroxaban (Rivaroxaban 20 Mg Tab) 20 mg PO W/SUPPER [facility]; Protocol Last Admin: 09/12/21 17:03 Dose: 20 mg Documented by: Spironolactone (Spironolactone 25 Mg Tab) 25 mg PO BID [facility] Last Admin: 09/13/21 08:01 Dose: 25 mg Documented by: Physical Exam: GENERAL: The patient is alert and oriented x3, not in any acute distress. Well developed, well nourished. Temp is 98.6F, pulse is 74, resp are 16, blood pressure is 131/70, 02 is 97% 3 L via NC HEENT: Pupils are round and equally reacting to light. EOMI. No scleral icterus. No conjunctival pallor. Normocephalic, atraumatic. No pharyngeal erythema. No thyromegaly. CARDIOVASCULAR: S1 and S2 muffled PULMONARY: Diminished breath sounds bilaterally with some scattered crackles and rhonchi noted. ABDOMEN: Soft, obese, nontender, nondistended, normoactive bowel sounds. No palpable organomegaly. MUSCULOSKELETAL: No joint swelling or deformity. EXTREMITIES: No cyanosis, clubbing, bilateral lower extremity edema noted NEUROLOGICAL: Gross neurological examination did not reveal any focal deficits. Diffusely weak SKIN: No rashes. no petechiae. Assessment: Right side pleural effusion as well as right sided pneumonia and parapneumonic effusion with possible sepsis, POA Fever, POA Acute cholecystitis, status post laparoscopic cholecystectomy Possible acute pancreatitis and gallstone pancreatitis Acute bilateral leg cellulitis, left more than right Possible common bile duct stone and gallstone pancreatitis with improving labs Elevated alkaline phosphatase Possible CHF, acute exacerbation, EF unknown Hyponatremia Elevated D dimer with chronic DVT of the right leg, on IV heparin anemia, normocytic Elevated AST, alk phosphatase, and possible acute hepatitis of obstructive hepatopathy of undetermined origin and possible common bile duct and possible passing of stone History of A fib Asthma, COPD HIstory of CVA, TIA DM, type 2 History of DVT History of GERD History of GI bleed HIstory of DJD History of PE hypertension hyperlipidemia History of sleep apnea History of recent thoracentesis, right side History of bilateral peripheral neuropathy History of MRSA History of appendectomy super morbid obesity with a BMI of 66.1 History of bariatric surgery History of anxiety, depression, bipolar and schizoaffective disorder Remote history of nicotine dependence Full code Plan: Recommend to continue with current medications, management, and symptomatic treatment. Patient is maintained on breathing inhalational treatments. Continue on oral lasix. PT/OT to evaluate. Patient is now agreeable to rehab and social work following and working on placement. Patient is maintained on IV antibiotics and will discuss with ID about discharge planning. Possible oral antibiotics on discharge. Will repeat am labs and monitor closely. Due to multiple complex medical issues, prognosis is guarded. Further recommendations to follow. Objective - Vital Signs Vital signs: Vital Signs Temp 98 F 09/13/21 07:27 Pulse 84 09/13/21 07:27 Resp 20 09/13/21 07:27 BP 111/58 09/13/21 07:27 Pulse Ox 98 09/13/21 07:27 Intake & Output 09/12/21 09/13/21 09/13/21 18:59 06:59 18:59 Output Total 1870 1300 Balance -1870 -1300 Weight 225.617 kg 227.363 kg Output: Urine 1870 1300 Other: Voiding Method Urinal # Voids 1 1 # Bowel Movements 1 1 - Labs CBC & Chem 7: 09/12/21 05:45 09/12/21 05:45 Labs: Abnormal Lab Results - Last 24 Hours (Table) 09/12/21 Range/Units 05:45 WBC 12.55 H (4.50-10.00) X 10*3/uL RBC 3.79 L (4.40-5.60) X 10*6/uL Hgb 10.1 L (13.0-17.0) g/dL Hct 33.8 L (39.6-50.0) % MCH 26.6 L (27.0-32.0) pg MCHC 29.9 L (32.0-37.0) g/dL RDW 15.3 H (11.5-14.5) % Immature Gran # 0.30 H (0.00-0.04) X 10*3/uL Neutrophils # 10.64 H (1.80-7.70) X 10*3/uL Lymphocytes # 0.57 L (0.90-5.00) X 10*3/uL Microbiology - Last 24 Hours (Table) 09/06/21 20:16 Blood Culture - Final Blood No Growth after 144 hours
[2021-09-13 11:58] LABS: African American GFR (CKD) >90 (>60 ml/min/1.73 sqM); Blood Urea Nitrogen 28 mg/dL (9-20); Calcium 9.4 mg/dL (8.4-10.2); Chloride 84 mmol/L (98-107); Glucose 88 mg/dL (74-99); Non-African American GFR(CKD) >90 (>60 ml/min/1.73 sqM); Potassium 4.8 mmol/L (3.5-5.1); Sodium 136 mmol/L (137-145)
[2021-09-13 12:07] LABS: Anion Gap 8 mmol/L
[2021-09-13 12:08] LABS: HCT 37.6 % (39.0-53.0); HGB 11.6 gm/dL (13.0-17.5); Hypochromasia Slight; MCHC 30.8 g/dL (31.0-37.0); MCV 87.9 fL (80.0-100.0); Mean Platelet Volume 8.3; Platelet Count 383 k/uL (150-450); RBC 4.28 m/uL (4.30-5.90); RDW 15.4 % (11.5-15.5); WBC 8.3 k/uL (3.8-10.6)
[2021-09-13 12:15] LABS: Carbon Dioxide 44 mmol/L (22-30)
[2021-09-13 13:20] LABS: Basophils # (M) 0.08 k/uL (0-0.2); Eosinophils # (M) 0.08 k/uL (0-0.7); Lymphocytes # (M) 1.08 k/uL (1.0-4.8); Metamyelocytes # (M) 0.08 k/uL (0); Metamyelocytes % 1 %; Monocytes # (M) 1.08 k/uL (0-1.0); Myelocytes # (M) 0.25 k/uL (0); Myelocytes % 3 %; Neutrophils # (M) 5.81 k/uL (1.3-7.7); Neutrophils % (M) 70 %; Nucleated Red Blood Cells 0 /100 WBC (0-0); Total Cells Counted 200
[2021-09-13] MEDS: LACTATED RINGERS 1,000 ML IV SCH (14:14)
--- NOTE | 2021-09-13 16:05 | P.PN ---
Subjective Progress Note Date: 09/13/21 CHIEF COMPLAINT: Cholecystitis HISTORY OF PRESENT ILLNESS: The patient is a 60-year-old male status post cholecystectomy for gallstone pancreatitis. "I feel so much better." He is tolerating liquids. He reports weakness of the lower extremities. He is in contact precautions for MRSA. ROS: No reports of nausea and vomiting. No fevers or chills. No new chest pain. BMI over 66 with morbid obesity. PHYSICAL EXAM: VITAL SIGNS: Reviewed CONSTITUTIONAL: Well developed and in no acute distress. EYES: Conjuctivae without sclera icterus. Extraocular movements grossly intact. Wears glasses. HEAD, EARS, NOSE, THROAT: Moist buccal mucosa. Head is atraumatic, normocephalic. Hears conversational speech. No nasal drainage. NECK: No gross thyroidomegaly. No jugular venous distention. RESPIRATORY: Non-labored respirations and equal bilateral excursions. CARDIOVASCULAR: Palpable 2+ radial pulses. Regular rate. Regular rhythm. ABDOMEN: Incisions clean dry and intact. Protuberant. MUSCULOSKELETAL: No gross deformity of the lower extremities noted. No clubbing. No cyanosis. SKIN: Good skin turgor. Well perfused. NEUROLOGIC: Cranial nerves II through XII grossly intact. No focal or lateralizing signs. PSYCH: Appropriate affect. Alert and oriented to person, place and time. CLINICAL LABS: Reviewed. White blood cell count normal ASSESSMENT: 1. Gallstone pancreatitis 2. Morbid obesity due to excess calories, BMI 66.1 PLAN: 1. Monitor LFTs 2. Low-fat diet 3. Agree with rehab Objective - Vital Signs Vital signs: Vital Signs Temp 98 F 09/13/21 07:27 Pulse 77 09/13/21 11:15 Resp 20 09/13/21 07:27 BP 111/58 09/13/21 07:27 Pulse Ox 98 09/13/21 07:27 Intake & Output 09/12/21 09/13/21 09/13/21 18:59 06:59 18:59 Intake Total 480 Output Total 1870 1300 800 Balance -1870 -1300 -320 Weight 225.617 kg 227.363 kg Intake: Oral 480 Output: Urine 1870 1300 800 Other: Voiding Method Urinal # Voids 1 1 1 # Bowel Movements 1 1 - Labs CBC & Chem 7: 09/13/21 11:14 09/13/21 11:42 Labs: Abnormal Lab Results - Last 24 Hours (Table) 09/13/21 09/13/21 Range/Units 11:14 11:42 RBC 4.28 L (4.30-5.90) m/uL Hgb 11.6 L (13.0-17.5) gm/dL Hct 37.6 L (39.0-53.0) % MCHC 30.8 L (31.0-37.0) g/dL Monocytes # (Manual) 1.08 H (0-1.0) k/uL Metamyelocytes # (Man) 0.08 H (0) k/uL Myelocytes # (Manual) 0.25 H (0) k/uL Sodium 136 L (137-145) mmol/L Chloride 84 L (98-107) mmol/L Carbon Dioxide 44 H* (22-30) mmol/L BUN 28 H (9-20) mg/dL Microbiology - Last 24 Hours (Table) 09/06/21 20:16 Blood Culture - Final Blood No Growth after 144 hours Assessment and Plan (1) BMI 60.0-69.9, adult Current Visit: Yes Status: Acute Code(s): Z68.44 - BODY MASS INDEX [BMI] 60.0-69.9, ADULT SNOMED Code(s): 381334732 (2) Gallstone pancreatitis Current Visit: Yes Status: Acute Code(s): K85.10 - BILIARY ACUTE PANCREATITIS WITHOUT NECROSIS OR INFECTION SNOMED Code(s): 31448933 (3) Elevated LFTs Current Visit: Yes Status: Acute Code(s): R79.89 - OTHER SPECIFIED ABNORMAL FINDINGS OF BLOOD CHEMISTRY SNOMED Code(s): 017568431 (4) Morbid obesity due to excess calories Current Visit: Yes Status: Acute Code(s): E66.01 - MORBID (SEVERE) OBESITY DUE TO EXCESS CALORIES SNOMED Code(s): 867333325 (5) Pancreatitis Current Visit: Yes Status: Acute Code(s): K85.90 - ACUTE PANCREATITIS WITHOUT NECROSIS OR INFECTION, UNSP SNOMED Code(s): 64964021
[2021-09-13] MEDS: RIVAROXABAN 20 MG TAB PO SCH (17:46)
--- NOTE | 2021-09-13 18:27 | PN ---
PROGRESS NOTE DATE OF SERVICE: 09/13/2021 REASON FOR FOLLOWUP: 1. Gallstone pancreatitis. 2. Left leg wound. INTERVAL HISTORY: The patient is afebrile. The patient is breathing comfortably. The patient denies having chest pain or shortness of breath. He did have occasional cough, not bringing up any sputum. No abdominal pain or diarrhea. PHYSICAL EXAMINATION: His blood pressure 127/57, pulse of 77, temperature 98. He is 97% on room air. General description is a middle-aged male lying in bed in no distress. HEENT EXAMINATION: Mild dryness. LUNGS: Unlabored breathing. Clear to auscultation anteriorly. HEART: S1, S2. Regular rate and rhythm. ABDOMEN: Soft. No tenderness. Left leg superficial wound. No redness. LABS: Hemoglobin is 11.6, white count 8.3, creatinine 0.90. DIAGNOSTIC IMPRESSION AND PLAN: 1. Patient with gallstone pancreatitis, status post laparoscopic cholecystectomy. Patient is covered with cefepime. Transition to oral antibiotic on discharge. 2. Patient complaining of some oral discomfort and mild thrush. Will add nystatin swish and swallow. 3. Patient with a left leg wound with superficial culture positive for MRSA. Patient does not have any cellulitis. No need for vancomycin. MMODL / IJN: [id number] /
[2021-09-13] MEDS: NYSTATIN 100,000 UNIT/ML SUSP 500,000 UNIT/5 ML CUP PO SCH ×2 (19:58→22:51)
--- NOTE | 2021-09-13 20:54 | PN ---
PROGRESS NOTE DATE OF SERVICE: 09/13/2021 This 60-year-old gentleman who was admitted with multiple medical problems had cholecystectomy. Patient is improving significantly. No chest pain. No palpitations. ECF rehab is planned. PHYSICAL EXAMINATION: Alert and oriented x3. Pulse 74, blood pressure 120/70, respiration 20, temperature 98 degrees, pulse ox 93% on 3 L. HEENT: Conjunctivae normal. NECK: No jugular venous distention. CARDIOVASCULAR: S1, S2 muffled. RESPIRATION: Breath sounds diminished at the bases. A few scattered rhonchi. ABDOMEN: Soft. Mild diffuse tenderness. LEGS: No edema. No swelling. NERVOUS SYSTEM: No focal deficit. LABS: WBC 8.3, hemoglobin 7.6 and CO2 is NTD. ASSESSMENT: 1. Right-sided pleural effusion as well as right-sided pneumonia with parapneumonic effusion with possible sepsis. 2. Acute cholecystitis, status post laparoscopic cholecystectomy and sepsis. 3. Fever, present on admission. 4. Possible acute pancreatitis, gallstone pancreatitis. 5. Acute bilateral leg cellulitis, left more than the right. 6. Possible common bile duct stone and gallstone pancreatitis with improved labs. 7. Elevated alkaline positive. 8. Possible congestive heart failure, acute exacerbation, ejection fraction unknown. 9. Hyponatremia. 10.Elevated D-dimer with chronic deep vein thrombosis of the right leg, on IV heparin. 11.Anemia, normocytic. 12.Elevated AST, alkaline phosphatase and possible acute hepatitis of obstructive hepatopathy of undetermined origin with possible CBD stone. 13.History of atrial fibrillation. 14.Asthma, chronic obstructive pulmonary disease. 15.History of cerebrovascular accident, transient ischemic attack. 16.Diabetes mellitus, type 2. 17.History of deep vein thrombosis. 18.History of gastroesophageal reflux disease. 19.History of gastrointestinal bleed. 20.History of degenerative joint disease. 21.History of pulmonary embolism. 22.Hypertension. 23.Hyperlipidemia. 24.History of sleep apnea. 25.History of recent thoracocentesis on the right side. 26.History of bilateral peripheral neuropathy. 27.History of MRSA. 28.History of appendectomy. 29.Super morbid obesity with body mass index of 66.1. 30.History of bariatric surgery. 31.History of anxiety, depression, bipolar, schizoaffective disorder. 32.Remote history of nicotine dependence. 33.FULL CODE. RECOMMENDATIONS AND DISCUSSION: I recommend to continue current medications, continue with the monitoring, symptomatic treatment. Continue with the antibiotics. Closely follow with Surgery. Possible ECF rehab. Further recommendations to follow. MMODL / IJN: [id number] / MTDD
[2021-09-13] MEDS: OLANZapine 10 MG TAB PO SCH (21:12)
[2021-09-13] MEDS: ATORVASTATIN 10 MG TAB PO SCH (21:12)
[2021-09-14] MEDS: IPRATROPIUM-ALBUTEROL 3 ML NEB INHALATION SCH ×3 (07:20→19:49)
[2021-09-14] MEDS: CEFEPIME 2 GM in SODIUM CHLORIDE 0.9% 100 ML IVPB SCH ×2 (08:05→16:06)
[2021-09-14] MEDS: PANTOPRAZOLE 40 MG TABLET PO SCH (08:05)
[2021-09-14] MEDS: DILTIAZEM ORAL 30 MG TAB PO SCH ×3 (08:06→21:01)
[2021-09-14] MEDS: FUROSEMIDE 40 MG TAB PO SCH ×3 (08:06→16:07)
[2021-09-14] MEDS: polyethylene glycoL 3350 17 GM POWD.PACK PO SCH (08:06)
[2021-09-14] MEDS: POTASSIUM CHLORIDE ER 20 MEQ TAB.ER PO SCH ×3 (08:06→21:01)
[2021-09-14] MEDS: GABAPENTIN 300 MG CAP PO SCH ×3 (08:06→21:01)
[2021-09-14] MEDS: METOPROLOL TARTRATE 25 MG TAB PO SCH ×2 (08:06→21:01)
[2021-09-14] MEDS: DULoxetine HCL 60 MG CAPSULE.DR PO SCH (08:06)
[2021-09-14] MEDS: SPIRONOLACTONE 25 MG TAB PO SCH ×2 (08:06→21:00)
[2021-09-14] MEDS: NYSTATIN 100,000 UNIT/ML SUSP 500,000 UNIT/5 ML CUP PO SCH ×4 (08:06→21:00)
[2021-09-14] MEDS: NON FORMULARY DRUG (Buprenorphine Hcl [Belbuca] 450 MCG Film) SUBLINGUAL SCH ×2 (08:06→20:57)
[2021-09-14] MEDS: HYDROmorphone 1 MG/ML 1 ML SYRINGE IVP PRN ×2 (08:18→11:11)
[2021-09-14] MEDS: LACTATED RINGERS 1,000 ML IV SCH (12:31)
--- NOTE | 2021-09-14 12:41 | P.PN ---
Subjective Progress Note Date: 09/14/21 CHIEF COMPLAINT: Cholecystitis HISTORY OF PRESENT ILLNESS: The patient is a 60-year-old male status post cholecystectomy for gallstone pancreatitis. He reports feeling well. Tolerating diet. He seeking rehab upon discharge due to generalized weakness. ROS: No reports of nausea and vomiting. No fevers or chills. No new chest pain. BMI over 66 with morbid obesity. PHYSICAL EXAM: VITAL SIGNS: Reviewed CONSTITUTIONAL: Well developed and in no acute distress. EYES: Conjuctivae without sclera icterus. Extraocular movements grossly intact. Wears glasses. HEAD, EARS, NOSE, THROAT: Moist buccal mucosa. Head is atraumatic, normocephalic. Hears conversational speech. No nasal drainage. NECK: No gross thyroidomegaly. No jugular venous distention. RESPIRATORY: Non-labored respirations and equal bilateral excursions. CARDIOVASCULAR: Palpable 2+ radial pulses. ABDOMEN: Incisions clean dry and intact. Protuberant. MUSCULOSKELETAL: No clubbing. No cyanosis. 3+ pitting edema to lower extremities and feet. SKIN: Good skin turgor. Well perfused. NEUROLOGIC: Cranial nerves II through XII grossly intact. No focal or lateralizing signs. PSYCH: Appropriate affect. Alert and oriented to person, place and time. CLINICAL LABS: Reviewed. CO2 elevated 44. LFTs normalizing. ASSESSMENT: 1. Gallstone pancreatitis 2. Morbid obesity due to excess calories, BMI 66.1 3. Hypercarbia PLAN: 1. Pulmonary team following due to persistent hypercarbia 2. Continue low-fat diet. 3. Repeat CMP. Objective - Vital Signs Vital signs: Vital Signs Temp 97.8 F 09/14/21 06:47 Pulse 64 09/14/21 11:21 Resp 18 09/14/21 06:47 BP 114/52 09/14/21 06:47 Pulse Ox 100 09/14/21 06:47 Intake & Output 09/13/21 09/14/21 09/14/21 18:59 06:59 18:59 Intake Total 480 240 Output Total 1300 1851 1700 Balance -820 -1851 -1460 Weight 227.76 kg Intake: Oral 480 240 Output: Urine 1300 1850 1700 Stool 1 Other: Voiding Method Urinal # Voids 1 1 - Labs CBC & Chem 7: 09/13/21 11:14 09/13/21 11:42 Labs: Abnormal Lab Results - Last 24 Hours (Table) 09/13/21 Range/Units 11:14 Monocytes # (Manual) 1.08 H (0-1.0) k/uL Metamyelocytes # (Man) 0.08 H (0) k/uL Myelocytes # (Manual) 0.25 H (0) k/uL Assessment and Plan (1) BMI 60.0-69.9, adult Current Visit: Yes Status: Acute Code(s): Z68.44 - BODY MASS INDEX [BMI] 60.0-69.9, ADULT SNOMED Code(s): 301795562 (2) Gallstone pancreatitis Current Visit: Yes Status: Acute Code(s): K85.10 - BILIARY ACUTE PANCREATITIS WITHOUT NECROSIS OR INFECTION SNOMED Code(s): 70621073 (3) Elevated LFTs Current Visit: Yes Status: Acute Code(s): R79.89 - OTHER SPECIFIED ABNORMAL FINDINGS OF BLOOD CHEMISTRY SNOMED Code(s): 371116536 (4) Morbid obesity due to excess calories Current Visit: Yes Status: Acute Code(s): E66.01 - MORBID (SEVERE) OBESITY DUE TO EXCESS CALORIES SNOMED Code(s): 383585756 (5) Pancreatitis Current Visit: Yes Status: Acute Code(s): K85.90 - ACUTE PANCREATITIS WITHOUT NECROSIS OR INFECTION, UNSP SNOMED Code(s): 72970232 (6) Hypercarbia Current Visit: Yes Status: Acute Code(s): R06.89 - OTHER ABNORMALITIES OF BREATHING SNOMED Code(s): 74382168
[2021-09-14] MEDS: HYDROcodone/APAP 5-325MG 1 EACH TAB PO PRN ×2 (14:26→21:01)
[2021-09-14] MEDS: RIVAROXABAN 20 MG TAB PO SCH (18:01)
--- NOTE | 2021-09-14 19:03 | PN ---
PROGRESS NOTE DATE OF SERVICE: 09/14/2021 This 60-year-old gentleman who was admitted with right-sided pleural effusion as well as right-sided pneumonia and parapneumonic effusion also had gallbladder surgery. Patient also had acute cholelithiasis and gallstone-related pancreatitis. No chest pain. No palpitations. No fever. PT/OT is evaluating the patient for possible ECF rehab. PHYSICAL EXAMINATION: Alert and oriented x3. Pulse 75, blood pressure 123/66, respiration 20, temperature 97.8, pulse ox 98% on room air. HEENT: Conjunctivae normal. NECK: No jugular venous distention. CARDIOVASCULAR: S1, S2 muffled. RESPIRATION: Breath sounds diminished at the bases. A few scattered rhonchi. ABDOMEN: Soft, obese. Status post surgery. LEGS: No edema. No swelling. NERVOUS SYSTEM: No focal deficit. LABS: WBC 11.6, sodium 136, CO2 is noted. Influenza negative. ASSESSMENT: 1. Right-sided pleural effusion as well as right-sided pneumonia and parapneumonic effusion with possible sepsis, present on admission. 2. Acute cholecystitis, status post laparoscopic cholecystectomy and sepsis. 3. Fever, present on admission. 4. Possible acute pancreatitis, gallstone pancreatitis. 5. Acute bilateral leg cellulitis, left more than the right. 6. Possible common bile duct stone and gallstone pancreatitis with improved labs. 7. Elevated alkaline phosphatase. 8. Possible congestive heart failure, acute exacerbation; ejection fraction unknown. 9. Hyponatremia. 10.Elevated D-dimer with chronic deep vein thrombosis of the right leg, on IV heparin. 11.Anemia, normocytic. 12.Elevated AST, alkaline phosphatase with possible acute hepatitis or obstructive hepatopathy of undetermined origin with possible CBD stone. 13.History of atrial fibrillation. 14.Asthma, chronic obstructive pulmonary disease. 15.History of cerebrovascular accident, transient ischemic attack. 16.Diabetes mellitus, type 2. 17.History of deep vein thrombosis. 18.History of gastroesophageal reflux disease. 19.History of gastrointestinal bleed. 20.History of degenerative joint disease. 21.History of pulmonary embolism. 22.Hypertension. 23.Hyperlipidemia. 24.History of sleep apnea. 25.History of recent thoracocentesis on the right side. 26.History of bilateral peripheral neuropathy. 27.History of MRSA. 28.History of appendectomy. 29.Super morbid obesity with body mass index 66.1. 30.History of bariatric surgery. 31.Anxiety, depression, bipolar, schizoaffective disorder. 32.Remote history of nicotine dependence. 33.FULL CODE. RECOMMENDATIONS AND DISCUSSION: I recommend to continue current medications, continue with symptomatic treatment. Repeat labs. PT/OT evaluation and possible ECF rehab. Guarded prognosis. Further recommendations to follow. YARIEL / JONESN: [id number] /
[2021-09-14] MEDS: ATORVASTATIN 10 MG TAB PO SCH (21:00)
[2021-09-14] MEDS: OLANZapine 10 MG TAB PO SCH (21:01)
[2021-09-15] MEDS: CEFEPIME 2 GM in SODIUM CHLORIDE 0.9% 100 ML IVPB SCH ×2 (00:23→08:11)
--- NOTE | 2021-09-15 00:29 | PN ---
PROGRESS NOTE DATE OF SERVICE: 09/14/2021 REASON FOR FOLLOWUP: 1. Gallstone pancreatitis. 2. Left leg wound. No cellulitis. INTERVAL HISTORY: Patient is afebrile. He is breathing more comfortably. Patient denies having any chest pain. Some shortness of breath. Occasional cough. No abdominal pain or pain to the left leg. PHYSICAL EXAMINATION: Blood pressure 136/67 with a pulse of 77, temperature 98.4. He is 98% on room air. General description is a middle-aged male lying in bed in no distress. Respiratory system: Unlabored breathing, clear to auscultation anteriorly. Heart S1, S2. Regular rate and rhythm. Abdomen soft, no tenderness. Left leg superficial wound. No redness or drainage. LABS: Creatinine 0.90. DIAGNOSTIC IMPRESSION AND PLAN: 1. The patient admitted to the hospital with acute to continue. The patient white count normalized on Cefepime, transition to a course of oral to finish a course of therapy. 2. Left leg wound no cellulitis. Plan is for heat the leg to keep the swelling down. No need for vancomycin. MMODL / IJN: [id number] /
[2021-09-15] MEDS: IPRATROPIUM-ALBUTEROL 3 ML NEB INHALATION SCH ×3 (07:15→20:03)
[2021-09-15] MEDS: polyethylene glycoL 3350 17 GM POWD.PACK PO SCH (08:09)
[2021-09-15] MEDS: HYDROcodone/APAP 5-325MG 1 EACH TAB PO PRN ×3 (08:09→23:42)
[2021-09-15] MEDS: NYSTATIN 100,000 UNIT/ML SUSP 500,000 UNIT/5 ML CUP PO SCH ×4 (08:09→23:43)
[2021-09-15] MEDS: DILTIAZEM ORAL 30 MG TAB PO SCH ×3 (08:09→23:44)
[2021-09-15] MEDS: POTASSIUM CHLORIDE ER 20 MEQ TAB.ER PO SCH (08:10)
[2021-09-15] MEDS: FUROSEMIDE 40 MG TAB PO SCH ×2 (08:10→16:38)
[2021-09-15] MEDS: NON FORMULARY DRUG (Buprenorphine Hcl [Belbuca] 450 MCG Film) SUBLINGUAL SCH ×2 (08:11→21:28)
[2021-09-15] MEDS: SPIRONOLACTONE 25 MG TAB PO SCH ×2 (08:11→21:28)
[2021-09-15] MEDS: METOPROLOL TARTRATE 25 MG TAB PO SCH ×2 (08:11→21:28)
[2021-09-15] MEDS: PANTOPRAZOLE 40 MG TABLET PO SCH (08:11)
[2021-09-15] MEDS: DULoxetine HCL 60 MG CAPSULE.DR PO SCH (08:11)
[2021-09-15] MEDS: GABAPENTIN 300 MG CAP PO SCH ×3 (08:11→23:42)
[2021-09-15 09:18] LABS: HCT 40.4 % (39.6-50.0); HGB 11.5 g/dL (13.0-17.0); MCH 25.4 pg (27.0-32.0); MCHC 28.5 g/dL (32.0-37.0); MCV 89.4 fL (80.0-97.0); Mean Platelet Volume 9.2 fL (9.5-12.2); Platelet Count 406 X 10*3/uL (140-440); RBC 4.52 X 10*6/uL (4.40-5.60); RDW 15.6 % (11.5-14.5); WBC 8.87 X 10*3/uL (4.50-10.00)
--- NOTE | 2021-09-15 10:54 | P.PN ---
Subjective Progress Note Date: 09/15/21 CHIEF COMPLAINT: Abdominal pain HISTORY OF PRESENT ILLNESS: Patient is status post laparoscopic cholecystectomy. His pain is controlled. He is tolerating diet. He is having bowel movements and flatus. Patient is awaiting rehab placement. Afebrile. WBC 8.87 CMP pending Patient seen and examined with Dr. macias PHYSICAL EXAM: VITAL SIGNS: Reviewed. GENERAL: Well-developed in no acute distress. HEENT: No sclera icterus. Extraocular movements grossly intact. Moist buccal mucosa. Head is atraumatic, normocephalic. ABDOMEN: Soft. Obese Nondistended. Incision sites with dry blood noted NEUROLOGIC: Alert and oriented. Cranial nerves II through XII grossly intact. ASSESSMENT: 1. Cholecystitis status post laparoscopic cholecystectomy 2. Suspected gallstone pancreatitis PLAN: -Patient is stable for discharge from surgical standpoint when medically cleared -Continue regular diet -Continue pain medication as needed -Encouraged patient to use incentive spirometer -Encouraged patient to increase activity Physician Urban Sociologist note has been reviewed by physician. Signing provider agrees with the documented findings, assessment, and plan of care. Objective - Vital Signs Vital signs: Vital Signs Temp 98.1 F 09/15/21 08:00 Pulse 74 09/15/21 08:00 Resp 20 09/15/21 08:00 BP 138/76 09/15/21 08:00 Pulse Ox 100 09/15/21 08:00 Intake & Output 09/14/21 09/15/21 09/15/21 18:59 06:59 18:59 Intake Total 600 300 Output Total 2500 500 Balance -1900 300 -500 Weight 226.087 kg Intake: Oral 600 300 Output: Urine 2500 500 Other: Voiding Method Urinal # Voids 1 1 # Bowel Movements 1 - Labs CBC & Chem 7: 09/15/21 05:43 09/13/21 11:42 Labs: Abnormal Lab Results - Last 24 Hours (Table) 09/15/21 Range/Units 05:43 Hgb 11.5 L (13.0-17.0) g/dL MCH 25.4 L (27.0-32.0) pg MCHC 28.5 L (32.0-37.0) g/dL RDW 15.6 H (11.5-14.5) % MPV 9.2 L (9.5-12.2) fL
[2021-09-15 11:39] LABS: Basophils # (M) 0 X 10*3/uL (0.00-0.10); Eosinophils # (M) 0.35 X 10*3/uL (0.04-0.35); Lymphocytes # (M) 0.53 X 10*3/uL (0.90-5.00); Metamyelocytes % 2 % (0-0); Monocytes # (M) 0.44 X 10*3/uL (0.20-1.00); Myelocytes % 4 % (0-0); Neutrophils # (M) 7.01 X 10*3/uL (2.00-8.90); Neutrophils % (M) 79 %
[2021-09-15 11:49] LABS: Albumin 3.7 g/dL (3.8-4.9); Albumin/Globulin Ratio 1.37 (1.60-3.17); Anion Gap 9.3 mmol/L (4.00-12.00); BUN/Creat Ratio 26.89 Ratio (12.00-20.00); Blood Urea Nitrogen 24.2 mg/dL (9.0-27.0); Calcium 9.5 mg/dL (8.7-10.3); Carbon Dioxide 40.7 mmol/L (21.6-31.8); Globulin 2.7 g/dL (1.6-3.3); Non-African American GFR(CKD) 93.2 (60.0-200.0); Potassium 5.6 mmol/L (3.5-5.5); Total Bilirubin 0.4 mg/dL (0.30-1.20); Total Protein 6.4 g/dL (6.2-8.2)
[2021-09-15] MEDS ORDERED: DEXTROSE 50% SYRINGE 50 ML IVP STA (12:19)
[2021-09-15] MEDS ORDERED: INSULIN REGULAR 100 UNIT/ML VIAL (IV) IV ONE (12:30)
--- NOTE | 2021-09-15 13:29 | PN ---
PROGRESS NOTE DATE OF SERVICE: 09/15/2021 REASON FOR FOLLOWUP: 1. Acute gallstone pancreatitis, cholecystitis. 2. Left leg wound. INTERVAL HISTORY: The patient is afebrile. He is breathing comfortably on room air. The patient denies having any chest pain. Occasional cough. No abdominal pain. No vomiting or diarrhea. PHYSICAL EXAMINATION: Blood pressure 138/76, pulse of 74, temperature 98.1. He is 100% on room air. General description is a middle-aged male lying in bed in no distress. Respiratory system: Unlabored breathing, clear to auscultation anteriorly. Heart S1, S2. Regular rate and rhythm. Abdomen soft, no tenderness. No guarding. No rigidity. Left leg wound has dried out. No redness or drainage. LABS: Hemoglobin 11.5, white count 8.87, creatinine 0.98. DIAGNOSTIC IMPRESSION AND PLAN: 1. Patient with acute gallstone pancreatitis, status post cholecystectomy. Plan at this time to finish a course of oral Ceftin. 2. Left leg wound with no evidence of any cellulitis. No need for systemic antibiotic therapy with positive culture from the left leg. MMODL / IJN: [id number] /
[2021-09-15] MEDS: RIVAROXABAN 20 MG TAB PO SCH (16:38)
[2021-09-15] MEDS: OLANZapine 10 MG TAB PO SCH ×2 (21:28→23:52)
[2021-09-15] MEDS: ATORVASTATIN 10 MG TAB PO SCH (21:28)
[2021-09-16 01:31] VITALS: RESP 18
--- NOTE | 2021-09-16 03:07 | P.PN ---
Subjective Progress Note Date: 09/15/21 This is a 60 year old male who was admitted for right side pleural effusion and also significant cholecystitis and recently underwent laparoscopic cholecystectomy and is being closely monitored. Surgery, ID, pulmonary, and cardiology following. Chest xray personally reviewed by me shows moderate right pleural effusion possibly slightly diminished from previous. Patient to continue with local wound care and continue IV cefepime with ID following closely. PT/OT to evaluate the patient. 09/15/2021 Patient is seen in follow up this morning with no acute overnight issues noted. Patient to be evaluated by PT today and social work following working on possible placement. Multiple medical consultations following and have cleared for discharge to [facility]. Patient is continued on IV cefepime with ID following and recommending oral Ceftin on discharge. Continue with local wound care of the lower extremities. Patient is tolerating diet and having bowel movements. Potassium elevated at 5.6 today and will correct and repeat am labs. Recommend low potassium diet as patient is also on aldactone. Labs: WBC 8.87, hgb 11.5, Na 139, potassium 5.6, BUN 24.2, cr is 0.9, C02 is 40.7 Review of systems: Constitutional: reports of fatigue, no reports of fever, or chills Cardiovascular: No reports of chest pain or palpitations Respiratory: reports occasional shortness of breath with cough GI: No reports of nausea, vomiting, or diarrhea : No reports of dysuria or retention Neurovascular: Reports generalized weakness All medications have been reviewed Active Medications Acetaminophen (Acetaminophen Tab 325 Mg Tab) 650 mg PO Q6HR PRN PRN Reason: Fever and/ or Pain Last Admin: 09/11/21 21:23 Dose: 650 mg Documented by: Hydrocodone Bitart/Acetaminophen (Hydrocodone/Apap 5-325mg 1 Each Tab) 1 each PO Q6HR PRN PRN Reason: Pain Albuterol/Ipratropium (Ipratropium-Albuterol 3 Ml Neb) 3 ml INHALATION RT-QID PRN PRN Reason: Shortness Of Breath Or Wheezing Last Admin: 09/10/21 04:52 Dose: 3 ml Documented by: Albuterol/Ipratropium (Ipratropium-Albuterol 3 Ml Neb) 3 ml INHALATION RT-TID YUN Last Admin: 09/13/21 07:10 Dose: 3 ml Documented by: Atorvastatin Calcium (Atorvastatin 10 Mg Tab) 10 mg PO HS [facility] Last Admin: 09/12/21 20:40 Dose: 10 mg Documented by: Bisacodyl (Bisacodyl 5 Mg Tablet.Dr) 10 mg PO DAILY PRN PRN Reason: Constipation Diltiazem HCl (Diltiazem Oral 30 Mg Tab) 30 mg PO TID [facility] Last Admin: 09/13/21 08:01 Dose: 30 mg Documented by: Docusate Sodium (Docusate 100 Mg Cap) 100 mg PO DAILY PRN PRN Reason: Constipation Last Admin: 09/09/21 09:13 Dose: 100 mg Documented by: Duloxetine HCl (Duloxetine Hcl 60 Mg Capsule.Dr) 60 mg PO DAILY [facility] Last Admin: 09/13/21 08:01 Dose: 60 mg Documented by: Furosemide (Furosemide 40 Mg Tab) 40 mg PO BID@0900,1600 [facility] Last Admin: 09/13/21 08:01 Dose: 40 mg Documented by: Gabapentin (Gabapentin 300 Mg Cap) 600 mg PO TID [facility] Last Admin: 09/13/21 08:00 Dose: 600 mg Documented by: Hydromorphone HCl (Hydromorphone 1 Mg/Ml 1 Ml Syringe) 1 mg IVP Q1HR PRN PRN Reason: Severe Pain Last Admin: 09/13/21 07:59 Dose: 1 mg Documented by: Cefepime HCl 2 gm/ Sodium (Chloride) 100 mls @ 25 mls/hr IVPB Q8HR [facility] Last Admin: 09/13/21 07:49 Dose: 25 mls/hr Documented by: Lactated Ringer's (Lactated Ringers) 1,000 mls @ 20 mls/hr IV .Q24H [facility] Last Admin: 09/12/21 07:00 Dose: Not Given Documented by: Lidocaine HCl (Lidocaine 1% (10mg/Ml) For Iv Start) 0.1 ml INTRADERMA PER PROTOCOL PRN PRN Reason: IV Start Metoprolol Tartrate (Metoprolol Tartrate 25 Mg Tab) 25 mg PO BID [facility] Last Admin: 09/13/21 08:01 Dose: 25 mg Documented by: Morphine Sulfate (Morphine Sulfate 4 Mg/Ml Syringe) 4 mg IV Q4HR PRN PRN Reason: Severe Pain Last Admin: 09/10/21 10:58 Dose: 4 mg Documented by: Naloxone HCl (Naloxone 0.4 Mg/Ml 1 Ml Vial) 0.2 mg IV Q2M PRN PRN Reason: Opioid Reversal Non-Formulary Medication (Buprenorphine Hcl [Belbuca]) 450 mcg SUBLINGUAL BID [facility] Last Admin: 09/12/21 20:41 Dose: Not Given Documented by: Olanzapine (Olanzapine 10 Mg Tab) 20 mg PO HS [facility] Last Admin: 09/12/21 20:40 Dose: 20 mg Documented by: Ondansetron HCl (Ondansetron 4 Mg/2 Ml Vial) 4 mg IVP Q8HR PRN PRN Reason: Nausea And Vomiting Last Admin: 09/08/21 19:47 Dose: 4 mg Documented by: Pantoprazole Sodium (Pantoprazole 40 Mg Tablet) 40 mg PO AC-BRKFST [facility] Last Admin: 09/13/21 07:49 Dose: 40 mg Documented by: Polyethylene Glycol (Polyethylene Glycol 3350 17 Gm Powd.Pack) 17 gm PO DAILY [facility] Last Admin: 09/13/21 08:00 Dose: 17 gm Documented by: Potassium Chloride (Potassium Chloride Er 20 Meq Tab.Er) 20 meq PO TID [facility] Last Admin: 09/13/21 08:01 Dose: 20 meq Documented by: Rivaroxaban (Rivaroxaban 20 Mg Tab) 20 mg PO W/SUPPER [facility]; Protocol Last Admin: 09/12/21 17:03 Dose: 20 mg Documented by: Spironolactone (Spironolactone 25 Mg Tab) 25 mg PO BID [facility] Last Admin: 09/13/21 08:01 Dose: 25 mg Documented by: Physical Exam: GENERAL: The patient is alert and oriented x3, not in any acute distress. Well developed, well nourished. Morbidly obese. HEENT: Pupils are round and equally reacting to light. EOMI. No scleral icterus. No conjunctival pallor. Normocephalic, atraumatic. No pharyngeal erythema. No thyromegaly. CARDIOVASCULAR: S1 and S2 muffled PULMONARY: Diminished breath sounds bilaterally with some scattered rhonchi noted. ABDOMEN: Soft, obese, nontender, nondistended, normoactive bowel sounds. No palpable organomegaly. MUSCULOSKELETAL: No joint swelling or deformity. EXTREMITIES: No cyanosis, clubbing, bilateral lower extremity edema noted NEUROLOGICAL: Gross neurological examination did not reveal any focal deficits. Diffusely weak SKIN: No rashes. no petechiae. Assessment: Right side pleural effusion as well as right sided pneumonia and parapneumonic effusion with possible sepsis, POA Fever, POA Acute cholecystitis, status post laparoscopic cholecystectomy Possible acute pancreatitis and gallstone pancreatitis Acute bilateral leg cellulitis, left more than right, resolved Possible common bile duct stone and gallstone pancreatitis with improving labs Elevated alkaline phosphatase Possible CHF, acute exacerbation, EF unknown Hyponatremia, improved Elevated D dimer with chronic DVT of the right leg, on xarelto anemia, normocytic Elevated AST, alk phosphatase, and possible acute hepatitis of obstructive hepatopathy of undetermined origin and possible common bile duct and possible passing of stone History of A fib Asthma, COPD HIstory of CVA, TIA DM, type 2 History of DVT History of GERD History of GI bleed HIstory of DJD History of PE hypertension hyperlipidemia History of sleep apnea History of recent thoracentesis, right side History of bilateral peripheral neuropathy History of MRSA History of appendectomy super morbid obesity with a BMI of 66.1 History of bariatric surgery History of anxiety, depression, bipolar and schizoaffective disorder Remote history of nicotine dependence DVT prophylaxis GI prophylaxis Full code Plan: Recommend to continue with current medications, management, and symptomatic treatment. Patient is maintained on breathing inhalational treatments. Continue on oral lasix. PT/OT evaluated the patient as he was able to work with them today recommending [facility] and social work has submitted multiple referrals and awaiting accepting facility. Patient is now agreeable to rehab and social work following and working on placement. Patient is maintained on IV antibiotics and will transition to oral antibiotics on discharge. Will repeat am labs and mo nitor closely. Due to multiple complex medical issues, prognosis is guarded. Further recommendations to follow. Objective - Vital Signs Vital signs: Vital Signs Temp 98.1 F 09/15/21 08:00 Pulse 74 09/15/21 08:00 Resp 20 09/15/21 08:00 BP 138/76 09/15/21 08:00 Pulse Ox 100 09/15/21 08:00 Intake & Output 09/14/21 09/15/21 09/15/21 18:59 06:59 18:59 Intake Total 600 300 Output Total 2500 500 Balance -1900 300 -500 Weight 226.087 kg Intake: Oral 600 300 Output: Urine 2500 500 Other: Voiding Method Urinal # Voids 1 1 # Bowel Movements 1 - Labs CBC & Chem 7: 09/15/21 05:43 09/15/21 05:43 Labs: Abnormal Lab Results - Last 24 Hours (Table) 09/15/21 Range/Units 05:43 Hgb 11.5 L (13.0-17.0) g/dL MCH 25.4 L (27.0-32.0) pg MCHC 28.5 L (32.0-37.0) g/dL RDW 15.6 H (11.5-14.5) % MPV 9.2 L (9.5-12.2) fL
[2021-09-16 05:52] LABS: African American GFR (CKD) >90 (>60 ml/min/1.73 sqM); Blood Urea Nitrogen 27 mg/dL (9-20); Calcium 8.8 mg/dL (8.4-10.2); Chloride 86 mmol/L (98-107); Glucose 114 mg/dL (74-99); Non-African American GFR(CKD) >90 (>60 ml/min/1.73 sqM); Potassium 4.6 mmol/L (3.5-5.1); Sodium 133 mmol/L (137-145)
[2021-09-16 05:59] LABS: Anion Gap 5 mmol/L
[2021-09-16 06:09] LABS: Carbon Dioxide 42 mmol/L (22-30)
[2021-09-16] MEDS: IPRATROPIUM-ALBUTEROL 3 ML NEB INHALATION SCH ×2 (07:10→12:05)
[2021-09-16 07:53] VITALS: BP 145/83; TEMP 97.8
[2021-09-16] MEDS: HYDROcodone/APAP 5-325MG 1 EACH TAB PO PRN (09:03)
[2021-09-16] MEDS: DILTIAZEM ORAL 30 MG TAB PO SCH (09:17)
[2021-09-16] MEDS: FUROSEMIDE 40 MG TAB PO SCH (09:18)
[2021-09-16] MEDS: NYSTATIN 100,000 UNIT/ML SUSP 500,000 UNIT/5 ML CUP PO SCH ×2 (09:18→13:07)
[2021-09-16] MEDS: PANTOPRAZOLE 40 MG TABLET PO SCH (09:18)
[2021-09-16] MEDS: SPIRONOLACTONE 25 MG TAB PO SCH (09:19)
[2021-09-16] MEDS: GABAPENTIN 300 MG CAP PO SCH (09:19)
[2021-09-16] MEDS: DULoxetine HCL 60 MG CAPSULE.DR PO SCH (09:20)
[2021-09-16] MEDS: METOPROLOL TARTRATE 25 MG TAB PO SCH (09:24)
[2021-09-16] MEDS: NON FORMULARY DRUG (Buprenorphine Hcl [Belbuca] 450 MCG Film) SUBLINGUAL SCH (09:25)
[2021-09-16] MEDS: polyethylene glycoL 3350 17 GM POWD.PACK PO SCH (09:27)
--- NOTE | 2021-09-16 11:52 | P.PN ---
Subjective Progress Note Date: 09/16/21 CHIEF COMPLAINT: Abdominal pain HISTORY OF PRESENT ILLNESS: Patient is status post laparoscopic cholecystectomy. He denies any abdominal pain. He is tolerating diet. He is having small bowel movements and flatus. Patient is requesting to have his Colace scheduled. Patient is awaiting rehab placement. Afebrile. Patient seen and examined with Dr. macias PHYSICAL EXAM: VITAL SIGNS: Reviewed. GENERAL: Well-developed in no acute distress. HEENT: No sclera icterus. Extraocular movements grossly intact. Moist buccal mucosa. Head is atraumatic, normocephalic. ABDOMEN: Soft. Obese Nondistended. Incision sites with dry blood noted NEUROLOGIC: Alert and oriented. Cranial nerves II through XII grossly intact. ASSESSMENT: 1. Cholecystitis status post laparoscopic cholecystectomy 2. Suspected gallstone pancreatitis PLAN: -Patient is stable for discharge from surgical standpoint when medically cleared -Continue regular diet -Continue Colace scheduled -Continue pain medication as needed -Encouraged patient to use incentive spirometer -Encouraged patient to increase activity Physician Food Expeditor note has been reviewed by physician. Signing provider agrees with the documented findings, assessment, and plan of care. Objective - Vital Signs Vital signs: Vital Signs Temp 97.8 F 09/16/21 07:52 Pulse 69 09/16/21 07:52 Resp 18 09/16/21 07:52 BP 145/83 09/16/21 07:52 Pulse Ox 98 09/16/21 07:52 Intake & Output 09/15/21 09/16/21 09/16/21 18:59 06:59 18:59 Intake Total 340 Output Total 1425 2 Balance -1425 338 Weight 227.845 kg Intake: Oral 340 Output: Urine 1425 Stool 2 Other: Voiding Method Urinal # Voids 2 - Labs CBC & Chem 7: 09/15/21 05:43 09/16/21 04:47 Labs: Abnormal Lab Results - Last 24 Hours (Table) 09/15/21 09/16/21 Range/Units 05:43 04:47 Sodium 133 L (137-145) mmol/L Potassium 5.6 H (3.5-5.5) mmol/L Chloride 89 L 86 L (96-109) mmol/L Carbon Dioxide 40.7 H* 42 H* (21.6-31.8) mmol/L BUN 27 H (9-20) mg/dL BUN/Creatinine Ratio 26.89 H (12.00-20.00) Ratio Glucose 114 H (74-99) mg/dL Alkaline Phosphatase 222 H (41-126) U/L Albumin 3.7 L (3.8-4.9) g/dL Albumin/Globulin Ratio 1.37 L (1.60-3.17) g/dL
--- NOTE | 2021-09-16 12:13 | P.DS ---
<Mago Yee - Last Filed: 09/16/21 12:04> Providers Expected date of discharge: 09/16/21 Hospital Course: Final diagnosis Right side pleural effusion as well as right sided pneumonia and parapneumonic effusion with possible sepsis, POA Fever, POA Acute cholecystitis, status post laparoscopic cholecystectomy Possible acute pancreatitis and gallstone pancreatitis Acute bilateral leg cellulitis, left more than right, resolved Possible common bile duct stone and gallstone pancreatitis with improving labs Elevated alkaline phosphatase Possible CHF, acute exacerbation, EF unknown Hyponatremia, improved Elevated D dimer with chronic DVT of the right leg, on xarelto anemia, normocytic Elevated AST, alk phosphatase, and possible acute hepatitis of obstructive hepatopathy of undetermined origin and possible common bile duct and possible passing of stone History of A fib Asthma, COPD HIstory of CVA, TIA DM, type 2 History of DVT History of GERD History of GI bleed HIstory of DJD History of PE hypertension hyperlipidemia History of sleep apnea History of recent thoracentesis, right side History of bilateral peripheral neuropathy History of MRSA History of appendectomy super morbid obesity with a BMI of 66.1 History of bariatric surgery History of anxiety, depression, bipolar and schizoaffective disorder Remote history of nicotine dependence DVT prophylaxis GI prophylaxis Full code Discharge disposition Patient is being discharged in a stable condition with guarded prognosis to [facility] for continued PT/OT therapy. Patient will follow-up with [facility] in the outpatient setting upon discharge. Patient is to continue with oral Ceftin 500 mg twice daily for the one week and then may discontinue. Patient will need to follow-up with general surgery along with cardiology in the outpatient setting. Total time taken is greater than 35 minutes. Hospital course This is a 60 year old male who was admitted for right side pleural effusion and also significant cholecystitis and recently underwent laparoscopic cholecystectomy and is being closely monitored. Surgery, ID, pulmonary, and cardiology following. Chest xray personally reviewed by me shows moderate right pleural effusion possibly slightly diminished from previous. Patient to continue with local wound care and continue IV cefepime with ID following closely. PT/OT to evaluate the patient. 09/15/2021 Patient is seen in follow up this morning with no acute overnight issues noted. Patient to be evaluated by PT today and social work following working on possible placement. Multiple medical consultations following and have cleared for discharge to [facility]. Patient is continued on IV cefepime with ID following and recommending oral Ceftin on discharge. Continue with local wound care of the lower extremities. Patient is tolerating diet and having bowel movements. Potassium elevated at 5.6 today and will correct and repeat am labs. Recommend low potassium diet as patient is also on aldactone. 09/16/2021 Patient is seen and evaluated and follow-up this morning. Patient reports passing gas and having bowel movements and is urinating without any difficulties. Patient is maintained on 3 L via nasal cannula and recommending to continue to do so along with breathing inhalational treatments scheduled and as needed. Patient will also continue with oral Lasix 40 mg twice daily and Xarelto has been resumed. Recommend to continue with low potassium diet and continue regular diet per surgical recommendations. Recommend repeat labs in 2- 3 days to monitor CBC and CMP to monitor electrolytes closely. Patient to continue with local wound care of the lower extremities and elevating while at rest and patient will continue on oral Ceftin 500 mg twice daily for the next 7 days to complete the course. Will need outpatient follow-up with his surgeon along with cardiology. Patient normally wears a CPAP at home although his is been recalled and awaiting for a new machine. Patient has not required CPAP during this hospitalization and will continue with 3 L via nasal cannula. Currently no reports of chest pain, shortness of breath, or palpitations. Patient is afebrile. No reports of nausea or vomiting and patient is tolerating diet. Patient will be going to [facility] today. Physical exam: GENERAL: The patient is alert and oriented x3, not in any acute distress. Well developed, well nourished. Morbidly obese. HEENT: Pupils are round and equally reacting to light. EOMI. No scleral icterus. No conjunctival pallor. Normocephalic, atraumatic. No pharyngeal erythema. No thyromegaly. CARDIOVASCULAR: S1 and S2 muffled PULMONARY: Diminished breath sounds bilaterally with some scattered rhonchi noted. ABDOMEN: Soft, obese, nontender, nondistended, normoactive bowel sounds. No palpable organomegaly. MUSCULOSKELETAL: No joint swelling or deformity. EXTREMITIES: No cyanosis, clubbing, bilateral lower extremity edema noted NEUROLOGICAL: Gross neurological examination did not reveal any focal deficits. Diffusely weak SKIN: No rashes. no petechiae. Please refer to medication reconciliation sheet for a list of medications. Patient Condition at Discharge: Fair Plan - Discharge Summary Discharge Rx Participant: Yes New Discharge Prescriptions: New bisacodyL [Dulcolax] 10 mg PO DAILY PRN tab PRN Reason: Constipation Ipratropium-Albuterol Nebulize [Duoneb 0.5 mg-3 mg/3 ml Soln] 3 ml INHALATION RT-QID PRN ml PRN Reason: Shortness Of Breath Or Wheezing polyethylene glycoL 3350 [Miralax] 17 gm PO DAILY packet Nystatin 100,000 Unit/ml Susp [Mycostatin Oral Susp] 500,000 unit PO QID ml HYDROcodone/APAP 5-325MG [[place] 5-325] 1 each PO Q6HR PRN #3 tab PRN Reason: Pain Cefuroxime Axetil [Ceftin] 500 mg PO BID 7 Days #14 tab Metoprolol Tartrate [Lopressor] 25 mg PO BID 30 Days #60 tab Diltiazem Oral [Cardizem*] 30 mg PO TID tab Docusate [Colace] 100 mg PO DAILY cap Ipratropium-Albuterol Nebulize [Duoneb 0.5 mg-3 mg/3 ml Soln] 3 ml INHALATION RT-TID ml Furosemide [Lasix] 40 mg PO BID@0900,1600 tab Pantoprazole [Protonix] 40 mg PO AC-BRKFST tab Acetaminophen Tab [Tylenol] 650 mg PO Q6HR PRN tab PRN Reason: Fever And/ Or Pain Continue Rivaroxaban [Xarelto] 20 mg PO DAILY Atorvastatin [Lipitor] 10 mg PO HS OLANZapine 20 mg PO HS Omeprazole 20 mg PO DAILY Spironolactone [Aldactone] 25 mg PO BID DULoxetine HCL [Cymbalta] 60 mg PO DAILY Tiotropium 18 Mcg/Puff [Spiriva] 1 puff INHALATION RT-DAILY Buprenorphine HCl [Belbuca] 450 mcg SL BID #2 film Gabapentin 600 mg PO TID #6 tab Discontinued dilTIAZem HCL [Diltiazem HCl] 30 mg PO TID Potassium Chloride ER [K-Dur 20] 20 meq PO TID Bumetanide 2 mg PO BID Discharge Medication List Rivaroxaban [Xarelto] 20 mg PO DAILY 07/14/19 [History] Atorvastatin [Lipitor] 10 mg PO HS 08/03/19 [History] OLANZapine 20 mg PO HS 10/29/20 [History] Omeprazole 20 mg PO DAILY 04/29/21 [History] Tiotropium 18 Mcg/Puff [Spiriva] 1 puff INHALATION RT-DAILY 03/27/21 [History] DULoxetine HCL [Cymbalta] 60 mg PO DAILY 09/05/21 [History] Spironolactone [Aldactone] 25 mg PO BID 09/05/21 [History] Metoprolol Tartrate [Lopressor] 25 mg PO BID 30 Days #60 tab 09/12/21 [Rx] Acetaminophen Tab [Tylenol] 650 mg PO Q6HR PRN tab 09/16/21 [Rx] Buprenorphine HCl [Belbuca] 450 mcg SL BID #2 film 09/16/21 [Rx] Cefuroxime Axetil [Ceftin] 500 mg PO BID 7 Days #14 tab 09/16/21 [Rx] Diltiazem Oral [Cardizem*] 30 mg PO TID tab 09/16/21 [Rx] Docusate [Colace] 100 mg PO DAILY cap 09/16/21 [Rx] Furosemide [Lasix] 40 mg PO BID@0900,1600 tab 09/16/21 [Rx] Gabapentin 600 mg PO TID #6 tab 09/16/21 [Rx] HYDROcodone/APAP 5-325MG [[place] 5-325] 1 each PO Q6HR PRN #3 tab 09/16/21 [Rx] Ipratropium-Albuterol Nebulize [Duoneb 0.5 mg-3 mg/3 ml Soln] 3 ml INHALATION RT-QID PRN ml 09/16/21 [Rx] Ipratropium-Albuterol Nebulize [Duoneb 0.5 mg-3 mg/3 ml Soln] 3 ml INHALATION RT-TID ml 09/16/21 [Rx] Nystatin 100,000 Unit/ml Susp [Mycostatin Oral Susp] 500,000 unit PO QID ml 09/16/21 [Rx] Pantoprazole [Protonix] 40 mg PO AC-BRKFST tab 09/16/21 [Rx] bisacodyL [Dulcolax] 10 mg PO DAILY PRN tab 09/16/21 [Rx] polyethylene glycoL 3350 [Miralax] 17 gm PO DAILY packet 09/16/21 [Rx] Follow up Appointment(s)/Referral(s): Hugh Borja MD [STAFF PHYSICIAN] [facility] - 1-2 days Ambulatory/Diagnostic Orders: Complete Blood Count w/diff [LAB.AMB] Time Frame: 3 Days, Location: None S elected Activity/Diet/Wound Care/Special Instructions: Patient is going to [facility] Recommend following up with cardiology outpatient Follow-up with surgery in the outpatient setting in 1 week Continue antibiotics in the form of Ceftin 500 mg twice daily for the next 1 week Continue local wound care and lower extremities and elevate while at rest Continue with physical therapy [facility] - heart healthy diet , low potassium diet activity as tolerated Discharge Disposition: TRANSFER TO SNF/ECF <Marquez Zaragoza E - Last Filed: 09/16/21 21:49> Providers Date of admission: 09/05/21 13:52 Attending physician: Lakshmi Salazar Consults: 09/05/21 07:53 Consult Physician Stat Consulting Provider: Robb Vigil Consult Reason/Comments: ABD pain Do you want consulting provider notified?: Yes 09/05/21 15:44 Consult Physician Routine Consulting Provider: Jay Whittington Consult Reason/Comments: pleural effusion? Do you want consulting provider notified?: Yes 09/05/21 15:51 Consult Physician Routine Consulting Provider: Alan Booth Consult Reason/Comments: chf Do you want consulting provider notified?: Yes 09/06/21 19:02 Consult Physician Routine Consulting Provider: Leonides Whitt Consult Reason/Comments: sepsis, pneumonia, empyema? Do you want consulting provider notified?: Yes Primary care physician: [facility] Hospital Course: Attestation: I have discussed the plan and I have reviewed the notes with FER Mercedes and I agree with it except was mentioned below Patient is seen and examined by me at bedside Patient was happy with his clinical progress date. And he feels he can go home today. He tolerated his diet, his abdominal pain minimum at surgical site which is expected. He is having bowel movement. His only concerns if he is going to get a large bed when he goes to rehab today. Patient was instructed to follow up outpatient with PCP in one week as well as with infectious disease, surgical team and he verbalized understanding and acceptance. Please refer to discharge instructions
[2021-09-16 13:14] VITALS: PULSE 69
--- NOTE | 2021-09-16 13:27 | PN ---
PROGRESS NOTE DATE OF SERVICE: 09/16/2021 REASON FOR FOLLOW UP: Gallstone pancreatitis. INTERVAL HISTORY: Patient is afebrile. The patient is currently feeling better. Breathing comfortably. Abdominal pain is currently controlled. No nausea, vomiting. No chest pain, shortness of breath or cough. PHYSICAL EXAMINATION: Blood pressure 145/83, pulse of 69, temperature 97.8. He is 98% on 2 L nasal cannula. General description is a middle-aged male lying in bed in no distress. Respiratory system: Unlabored breathing. Clear to auscultation anteriorly. Heart S1, S2. Regular rate and rhythm. Abdomen soft, no tenderness. LABS: White count normal 8.87 yesterday, creatinine 0.86. DIAGNOSTIC IMPRESSION AND PLAN: Patient with gallstone pancreatitis in this patient who has shown overall clinical improvement on cefepime. Transition to short course of oral Ceftin on discharge and monitor clinical course closely. Continue supportive care. MMODL / IJN: [id number] /
[2021-09-17] MEDS ORDERED: DOCUSATE 100 MG CAP PO SCH (09:00)
== END 2021-09-16 14:20 | DRG 853 ==
LOC: EC 01:20 → 6NMEDSUR 03:57 → OBSVTOIN 13:52 → 6NMEDSUR 14:05
PROVIDERS: ADMIT Hospitalist; ATTEND Hospitalist
PROC: 0FT44ZZ Resection of Gallbladder, Percutaneous Endoscopic Approach (ICD-10-PCS; principal; 2021-09-10 15:30)
DX: A41.9 Sepsis, unspecified organism (principal); I50.43 Acute on chronic combined systolic (congestive) and diastolic (congestive) heart failure; J18.9 Pneumonia, unspecified organism; K85.10 Biliary acute pancreatitis without necrosis or infection; Z68.44 Body mass index [BMI] 60.0-69.9, adult; I13.0 Hypertensive heart and chronic kidney disease with heart failure and stage 1 through stage 4 chronic kidney disease, or unspecified chronic kidney disease; J44.0 Chronic obstructive pulmonary disease with (acute) lower respiratory infection; J96.12 Chronic respiratory failure with hypercapnia; E66.2 Morbid (severe) obesity with alveolar hypoventilation; E87.1 Hypo-osmolality and hyponatremia; L03.115 Cellulitis of right lower limb; L03.116 Cellulitis of left lower limb; I82.511 Chronic embolism and thrombosis of right femoral vein; I82.531 Chronic embolism and thrombosis of right popliteal vein; K80.00 Calculus of gallbladder with acute cholecystitis without obstruction; F31.9 Bipolar disorder, unspecified; F25.9 Schizoaffective disorder, unspecified; F41.9 Anxiety disorder, unspecified; Z20.822 Contact with and (suspected) exposure to COVID-19; I48.0 Paroxysmal atrial fibrillation; Z98.84 Bariatric surgery status; E78.5 Hyperlipidemia, unspecified; E87.5 Hyperkalemia; G89.4 Chronic pain syndrome; M19.90 Unspecified osteoarthritis, unspecified site; N18.30 Chronic kidney disease, stage 3 unspecified; E11.22 Type 2 diabetes mellitus with diabetic chronic kidney disease; B95.62 Methicillin resistant Staphylococcus aureus infection as the cause of diseases classified elsewhere; S81.802A Unspecified open wound, left lower leg, initial encounter; E11.40 Type 2 diabetes mellitus with diabetic neuropathy, unspecified; B37.9 Candidiasis, unspecified; Z87.891 Personal history of nicotine dependence; F41.0 Panic disorder [episodic paroxysmal anxiety]; I27.29 Other secondary pulmonary hypertension; I27.81 Cor pulmonale (chronic); D64.9 Anemia, unspecified; K21.9 Gastro-esophageal reflux disease without esophagitis; Z96.641 Presence of right artificial hip joint; Z87.19 Personal history of other diseases of the digestive system; Z74.01 Bed confinement status; Z79.01 Long term (current) use of anticoagulants; Z79.899 Other long term (current) drug therapy; Z85.828 Personal history of other malignant neoplasm of skin; Z86.711 Personal history of pulmonary embolism; Z86.73 Personal history of transient ischemic attack (TIA), and cerebral infarction without residual deficits; Z82.49 Family history of ischemic heart disease and other diseases of the circulatory system; Z80.1 Family history of malignant neoplasm of trachea, bronchus and lung
CPT/HCPCS: 36415; 71045; 71275; 74177; 76604; 76705; 78226; 80048; 80053; 80074; 80306; 81003; 82140; 82150; 83690; 83735; 83880; 84100; 84145; 84484; 85025; 85379; 85610; 85730; 87040; 87070; 87077; 87186; 87205; 87502; 87635; 88304; 93005; 93306; 93970; 94640; 94760; 96361; 96374; 96375; 99285

== ENCOUNTER 2021-10-28 00:08 | Observation (INO) | payer OTHER, MEDICARE, BC ==
[2021-10-28] MEDS ORDERED: IPRATROPIUM-ALBUTEROL 3 ML NEB INHALATION STA (01:32)
--- NOTE | 2021-10-28 02:39 | XR ---
EXAMINATION TYPE: XR chest 2V DATE OF EXAM: 10/28/2021 COMPARISON: 09/12/2021 HISTORY: Short of breath TECHNIQUE: 2 views FINDINGS: There is large right pleural effusion. Left lung is clear. There is no heart failure. Heart appears slightly enlarged. IMPRESSION: Large right pleural effusion and right lower lobe infiltrate not changed compared to old exam. No obvious heart failure.
[2021-10-28] MEDS ORDERED: ALBUTEROL NEBULIZED 2.5 MG/3 ML INHALATION STA (06:01)
[2021-10-28] MEDS ORDERED: predniSONE 20 MG TAB PO STA (06:01)
[2021-10-28] MEDS ORDERED: IPRATROPIUM-ALBUTEROL 3 ML NEB INHALATION PRN (07:19)
[2021-10-28] MEDS ORDERED: HYDROcodone/APAP 5-325MG 1 EACH TAB PO PRN (07:24)
[2021-10-28] MEDS ORDERED: PANTOPRAZOLE 40 MG TABLET PO SCH (07:30)
--- NOTE | 2021-10-28 07:33 | ED ---
URI HPI - General Chief Complaint: Upper Respiratory Infection Stated Complaint: Flu like symptoms Time Seen by Provider: 10/28/21 00:54 Source: patient, EMS Mode of arrival: EMS Limitations: physical limitation - History of Present Illness Initial Comments: 's patient is 61-year-old man with history of multiple previous episodes of pneumonia as well as COPD/asthma. He states that he started having upper respiratory symptoms some number of days ago including nasal congestion and cough over the past 2 days he has been having chest congestion and coughing up occasional thick yellow sputum. Patient has been using his home medications but states he is only getting worse and now is short of breath. MD Complaint: cough, nasal congestion, other (chest congestion) -: days(s) Severity: moderate Severity scale (1-10): 0 Consistency: constant Improves With: nothing Worsens With: nothing Associated Symptoms: nasal congestion, cough, shortness of breath Treatments Prior to Arrival: none - Related Data Home Medications Medication Instructions Recorded Confirmed Rivaroxaban [Xarelto] 20 mg PO DAILY 07/14/19 09/05/21 Atorvastatin [Lipitor] 10 mg PO HS 08/03/19 09/05/21 OLANZapine 20 mg PO HS 10/29/20 09/05/21 Omeprazole 20 mg PO DAILY 03/27/21 09/05/21 Tiotropium 18 Mcg/Puff [Spiriva] 1 puff INHALATION RT-DAILY 03/27/21 09/05/21 DULoxetine HCL [Cymbalta] 60 mg PO DAILY 09/05/21 09/05/21 Spironolactone [Aldactone] 25 mg PO BID 09/05/21 09/05/21 Previous Rx's Medication Instructions Recorded Metoprolol Tartrate [Lopressor] 25 mg PO BID 30 Days #60 tab 09/12/21 Acetaminophen Tab [Tylenol] 650 mg PO Q6HR PRN tab 09/16/21 Buprenorphine HCl [Belbuca] 450 mcg SL BID #2 film 09/16/21 Cefuroxime Axetil [Ceftin] 500 mg PO BID 7 Days #14 tab 09/16/21 Diltiazem Oral [Cardizem*] 30 mg PO TID tab 09/16/21 Docusate [Colace] 100 mg PO DAILY cap 09/16/21 Furosemide [Lasix] 40 mg PO BID@0900,1600 tab 09/16/21 Gabapentin 600 mg PO TID #6 tab 09/16/21 HYDROcodone/APAP 5-325MG [[place] 1 each PO Q6HR PRN #3 tab 09/16/21 5-325] Ipratropium-Albuterol Nebulize 3 ml INHALATION RT-QID PRN ml 09/16/21 [Duoneb 0.5 mg-3 mg/3 ml Soln] Ipratropium-Albuterol Nebulize 3 ml INHALATION RT-TID ml 09/16/21 [Duoneb 0.5 mg-3 mg/3 ml Soln] Nystatin 100,000 Unit/ml Susp 500,000 unit PO QID ml 09/16/21 [Mycostatin Oral Susp] Pantoprazole [Protonix] 40 mg PO AC-BRKFST tab 09/16/21 bisacodyL [Dulcolax] 10 mg PO DAILY PRN tab 09/16/21 polyethylene glycoL 3350 [Miralax] 17 gm PO DAILY packet 09/16/21 Allergies Allergy/AdvReac Type Severity Reaction Status Date / Time codeine Allergy Severe Swelling Verified 09/10/21 15:19 OF THROAT WITH COUGH SYRUP chlorpheniramine Allergy Unknown Verified 09/10/21 15:19 febuxostat [From Uloric] Allergy Unknown Verified 09/10/21 15:19 phenylephrine Allergy Unknown Verified 09/10/21 15:19 piperacillin sodium Allergy Unknown Verified 09/10/21 15:19 [From Zosyn] sulfamethoxazole Allergy Unknown Verified 09/10/21 15:19 [From Bactrim] tazobactam sodium Allergy Unknown Verified 09/10/21 15:19 [From Zosyn] trimethoprim [From Bactrim] Allergy Unknown Verified 09/10/21 15:19 buspirone [From BuSpar] AdvReac Rapid Verified 09/10/21 15:19 Heart Rate Review of Systems ROS Statement: Those systems with pertinent positive or pertinent negative responses have been documented in the HPI. ROS Other: All systems not noted in ROS Statement are negative. Constitutional: Reports: weakness. Denies: fever, chills Respiratory: Reports: cough, dyspnea, wheezes. Denies: hemoptysis, stridor Cardiovascular: Reports: edema (Chronic). Denies: chest pain, palpitations, dyspnea on exertion, orthopnea, syncope Gastrointestinal: Denies: abdominal pain, nausea, vomiting, diarrhea Genitourinary: Denies: dysuria, hematuria Musculoskeletal: Denies: back pain Skin: Denies: rash Neurological: Denies: headache, weakness, numbness Past Medical History Past Medical History: Atrial Fibrillation, Asthma, Cancer, Heart Failure, COPD, CVA/TIA, Diabetes Mellitus, Deep Vein Thrombosis (DVT), GERD/Reflux, GI Bleed, Hyperlipidemia, Hypertension, Osteoarthritis (OA), Pneumonia, Pulmonary Embolus (PE), Renal Disease, Respiratory Disorder, Sleep Apnea/CPAP/BIPAP Additional Past Medical History / Comment(s): Pt recently admitted to [facility] on 08/05/19 with acute on chronic CHF/abnormal ECHO-see report/paroxysmal afib/bilateral pleural effusions with R sided thoracentesis. Other hx: Pt denies diabetes stating he has hypoglycemia/pt recently transfered to [facility] for endocrinology consultation-states he wasn't told anything new, states he has bilateral feet neuropathy, colitis, chronic diffuse abdominal pain, chronic generalized pain, fluid retention, bedbound, lower GI bleed, hiatal hernia, DVT in leg which traveled to his lung, DDD, scoliosis, ALEXIS without device, CKD stage III, pseudoseizures with past extensive work up thru [facility], basal cell skin cancer removed from face. History of Any Multi-Drug Resistant Organisms: MRSA Date of last positivie culture/infection: MRSA 09/05/21 MDRO Source:: LEG Past Surgical History: Appendectomy, Bariatric Surgery, Heart Catheterization, Hernia Repair, Joint Replacement, Orthopedic Surgery Additional Past Surgical History / Comment(s): Gastric sleeve in 2013, L inguinal hernia repair, R elbow surgery x2, total R hip arthroplasty, L knee arthroscopy/ACL surgery, R ankle ORIF, EGD, colonoscopy, basal cell skin cancer from face, surgery for varicele. Past Anesthesia/Blood Transfusion Reactions: Previous Problems w/ Anesthesia Additional Past Anesthesia/Blood Transfusion Reaction / Comment(s): STATES HE WAS TOLD HE WAS A DIFFICULT INTUBATION WITH GASTRIC SLEEVE SURGERY, Past Psychological History: Anxiety, Bipolar, Depression, Panic Disorder, Schizoaffective Disorder Smoking Status: Former smoker Past Alcohol Use History: None Reported Past Drug Use History: None Reported - Past Family History Father Family Medical History: Cancer Additional Family Medical History / Comment(s): LUNG CA Mother Family Medical History: Coronary Artery Disease (CAD) Additional Family Medical History / Comment(s): Mother of an infection. General Exam Limitations: physical limitation General appearance: alert, in no apparent distress, obese Head exam: Present: atraumatic, normocephalic Eye exam: Present: normal appearance. Absent: scleral icterus, conjunctival injection ENT exam: Present: normal oropharynx Neck exam: Present: normal inspection Respiratory exam: Present: wheezes, rhonchi. Absent: respiratory distress, rales, stridor, accessory muscle use, decreased breath sounds Cardiovascular Exam: Present: regular rate, normal rhythm, normal heart sounds. Absent: systolic murmur, diastolic murmur, rubs, gallop GI/Abdominal exam: Present: soft. Absent: distended, tenderness, guarding, rebound, rigid, mass Extremities exam: Present: normal inspection, normal capillary refill, pedal edema. Absent: calf tenderness Neurological exam: Present: alert Skin exam: Present: warm, dry, intact, normal color. Absent: rash Course Vital Signs 10/28/21 10/28/21 10/28/21 00:23 01:45 01:51 Temperature 99.2 F Pulse Rate 90 80 84 Respiratory 18 Rate Blood Pressure 127/70 O2 Sat by Pulse 95 Oximetry 10/28/21 10/28/21 10/28/21 05:25 07:04 07:26 Temperature Pulse Rate 84 82 89 Respiratory 16 Rate Blood Pressure 136/76 O2 Sat by Pulse 96 Oximetry Medical Decision Making - Lab Data Lab Results 10/28/21 10/28/21 Range/Units 00:55 01:00 Coronavirus (PCR) Not Detected (Not Detectd) Influenza Type A RNA Not Detected (Not Detectd) Influenza Type B (PCR) Not Detected (Not Detectd) Disposition Referrals: [facility]Cl[facility] [Primary Care Provider] - 1-2 days
[2021-10-28] MEDS ORDERED: HEPARIN SODIUM,PORCINE/PF 5,000 UNIT/0.5 ML SYRINGE SQ SCH (08:00)
[2021-10-28] MEDS ORDERED: SYMBICORT 160-4.5 MCG INHALER INHALATION SCH (08:00)
[2021-10-28] MEDS ORDERED: METOPROLOL TARTRATE 25 MG TAB PO SCH (09:00)
[2021-10-28] MEDS ORDERED: GABAPENTIN 300 MG CAP PO SCH (09:00)
[2021-10-28] MEDS ORDERED: AZITHROMYCIN 500 MG TAB PO SCH (09:00)
[2021-10-28] MEDS ORDERED: SPIRONOLACTONE 25 MG TAB PO SCH (09:00)
[2021-10-28] MEDS ORDERED: RIVAROXABAN 20 MG TAB PO SCH (09:00)
[2021-10-28] MEDS ORDERED: DULoxetine HCL 60 MG CAPSULE.DR PO SCH (09:00)
[2021-10-28] MEDS: ALBUTEROL NEBULIZED 2.5 MG/3 ML INHALATION SCH ×2 (10:33→15:52)
--- NOTE | 2021-10-28 14:31 | P.CNPUL ---
History of Present Illness Consult date: 10/28/21 Reason for consult: dyspnea History of present illness: This is a 60 male patient who is familiar to our service from previous hospitalizations for shortness of breath, and recurrent and chronic right-sided pleural effusion with previous history of thoracentesis 2. Patient had right- sided thoracentesis on 08/04/2019 with removal of 950 mL of turbid dark yellowish pleural fluid, and on 09/12/2019, the amount of fluid removed during that time is not known. The fluid from 08/04/2019 was transudative, with LDH of 164, and the fluid total protein of 2715. The pleural fluid from 09/12/2019 was found to be exudative, with LDH of 356, and the fluid total protein of 4059. Both times cytology and cultures of the pleural fluid was negative. After each thoracentesis patient would have a lot of pleuritic chest pain, requiring pain medications. Patient has an extensive medical history, including chronic hypercapnic respiratory failure related to obesity hypoventilation syndrome, and patient has a Trilogy ventilator at home, on AVAPS mode with TTV 550 ml, Max PSV 25, Min PSV 5, Max EPAP 10, Min EPAP 5. History of pulmonary embolism and previous history of DVT, paroxysmal atrial fibrillation , gait dysfunction, patient is chronically bedbound, chronic pain syndrome, diabetes type II with diabetic neuropathy, history of chronic kidney disease, unspecified, morbid obesity with previous history of gastric sleeve surgery in 2013, history of COPD, former smoker, anxiety, depression, panic disorder, history of chronic CHF, cor pulmonale, his previous echocardiogram from October 2020 showed EF of 55-60%, mild MR, mild TR, severe pulmonary hypertension with PA systolic of 55.7 mmHg. The patient was in the hospital approximately a month ago for abdominal pain and the patient was diagnosed having an acute cholecystitis. He was nicholas ated and he was ultimately taken to the operating room and the patient underwent a cholecystectomy. Following that he was discharged home.And the patient had started having symptoms of upper rest or checked infection a few days duration. The patient also reported some nasal congestion and cough and over the past 2 days. He was occasionally cough and thick yellowish sputum. He also reported some worsening shortness of breath and for that reason he came into the emergency department. The chest x-ray was reviewed and it showed a chronic stable right-sided pleural effusion, essentially unchanged. COVID 19 testing was negative. Influenza A and B was negative. RSV was negative. The patient is currently on oxygen at 3 L and at home the patient is also entertain on oxygen at 1/2 L. Note that he has lost his Trilogy ventilator and currently is unable to use any form of noninvasive positive pressure ventilator at home. He does have chronic lower extremity edema. He is essentially bedridden. Review of Systems Constitutional: Denies chills, Denies fever Eyes: denies blurred vision, denies pain Ears, nose, mouth and throat: Denies headache, Denies sore throat Cardiovascular: Reports edema, Denies chest pain, Denies shortness of breath Respiratory: Reports dyspnea, Denies cough Gastrointestinal: Reports abdominal pain, Reports nausea, Reports vomiting, Denies diarrhea Musculoskeletal: Denies myalgias Integumentary: Denies pruritus, Denies rash Neurological: Denies numbness, Denies weakness Psychiatric: Denies anxiety, Denies depression Endocrine: Denies fatigue, Denies weight change Past Medical History Past Medical History: Atrial Fibrillation, Asthma, Cancer, Heart Failure, COPD, CVA/TIA, Diabetes Mellitus, Deep Vein Thrombosis (DVT), GERD/Reflux, GI Bleed, Hyperlipidemia, Hypertension, Osteoarthritis (OA), Pneumonia, Pulmonary Embolus (PE), Renal Disease, Respiratory Disorder, Sleep Apnea/CPAP/BIPAP Additional Past Medical History / Comment(s): Pt recently admitted to [facility] on 08/05/19 with acute on chronic CHF/abnormal ECHO-see report/paroxysmal afib/bilateral pleural effusions with R sided thoracentesis. Other hx: Pt denies diabetes stating he has hypoglycemia/pt recently transfered to [facility] for endocrinology consultation-states he wasn't told anything new, states he has bilateral feet neuropathy, colitis, chronic diffuse abdominal pain, chronic generalized pain, fluid retention, bedbound, lower GI bleed, hiatal hernia, DVT in leg which traveled to his lung, DDD, scoliosis, ALEXIS without device, CKD stage III, pseudoseizures with past extensive work up thru [facility], basal cell skin cancer removed from face. History of Any Multi-Drug Resistant Organisms: MRSA Date of last positivie culture/infection: MRSA 09/05/21 MDRO Source:: LEG Past Surgical History: Appendectomy, Bariatric Surgery, Heart Catheterization, Hernia Repair, Joint Replacement, Orthopedic Surgery Additional Past Surgical History / Comment(s): Gastric sleeve in 2014, L inguinal hernia repair, R elbow surgery x2, total R hip arthroplasty, L knee arthroscopy/ACL surgery, R ankle ORIF, EGD, colonoscopy, basal cell skin cancer from face, surgery for varicele. Past Anesthesia/Blood Transfusion Reactions: Previous Problems w/ Anesthesia Additional Past Anesthesia/Blood Transfusion Reaction / Comment(s): STATES HE WAS TOLD HE WAS A DIFFICULT INTUBATION WITH GASTRIC SLEEVE SURGERY, Past Psychological History: Anxiety, Bipolar, Depression, Panic Disorder, Schizoaffective Disorder Smoking Status: Former smoker Past Alcohol Use History: None Reported Past Drug Use History: None Reported - Past Family History Father Family Medical History: Cancer Additional Family Medical History / Comment(s): LUNG CA Mother Family Medical History: Coronary Artery Disease (CAD) Additional Family Medical History / Comment(s): Mother of an infection. Medications and Allergies Home Medications Medication Instructions Recorded Confirmed Type Rivaroxaban [Xarelto] 20 mg PO DAILY 07/14/19 10/28/21 History Atorvastatin [Lipitor] 10 mg PO HS 08/03/19 10/28/21 History OLANZapine 20 mg PO HS 10/29/20 10/28/21 History Omeprazole 20 mg PO DAILY 03/27/21 10/28/21 History DULoxetine HCL [Cymbalta] 60 mg PO DAILY 09/05/21 10/28/21 History Spironolactone [Aldactone] 25 mg PO BID 09/05/21 10/28/21 History Acetaminophen Tab [Tylenol] 650 mg PO Q6HR PRN tab 09/16/21 10/28/21 Rx Buprenorphine HCl [Belbuca] 450 mcg SL BID #2 film 09/16/21 10/28/21 Rx Diltiazem Oral [Cardizem*] 30 mg PO TID tab 09/16/21 10/28/21 Rx Docusate [Colace] 100 mg PO DAILY cap 09/16/21 10/28/21 Rx Gabapentin 600 mg PO TID #6 tab 09/16/21 10/28/21 Rx Ipratropium-Albuterol Nebulize 3 ml INHALATION RT-QID PRN ml 09/16/21 10/28/21 Rx [Duoneb 0.5 mg-3 mg/3 ml Soln] Ipratropium-Albuterol Nebulize 3 ml INHALATION RT-TID ml 09/16/21 10/28/21 Rx [Duoneb 0.5 mg-3 mg/3 ml Soln] Nystatin 100,000 Unit/ml Susp 500,000 unit PO QID ml 09/16/21 10/28/21 Rx [Mycostatin Oral Susp] polyethylene glycoL 3350 [Miralax] 17 gm PO DAILY packet 09/16/21 10/28/21 Rx Albuterol Sulfate [Ventolin HFA] 1 - 2 puff INHALATION RT-Q6H PRN 10/28/21 10/28/21 History Bumetanide [BUMEX] 2 mg PO BID 10/28/21 10/28/21 History Lactulose 6.67 gm PO BID 10/28/21 10/28/21 History Potassium Chloride [Klor-Con 20] 20 meq PO TID 10/28/21 10/28/21 History Tamsulosin HCl [Flomax] 0.4 mg PO DAILY 10/28/21 10/28/21 History Tiotropium 2.5 Mcg/Puff [Spiriva 1 puff INHALATION RT-DAILY 10/28/21 10/28/21 History Respimat 2.5 Mcg] Allergies Allergy/AdvReac Type Severity Reaction Status Date / Time codeine Allergy Severe Swelling Verified 10/28/21 09:53 OF THROAT WITH COUGH SYRUP chlorpheniramine Allergy Unknown Verified 10/28/21 09:53 febuxostat [From Uloric] Allergy Unknown Verified 10/28/21 09:53 phenylephrine Allergy Unknown Verified 10/28/21 09:53 piperacillin sodium Allergy Unknown Verified 10/28/21 09:53 [From Zosyn] sulfamethoxazole Allergy Unknown Verified 10/28/21 09:53 [From Bactrim] tazobactam sodium Allergy Unknown Verified 10/28/21 09:53 [From Zosyn] trimethoprim [From Bactrim] Allergy Unknown Verified 10/28/21 09:53 buspirone [From BuSpar] AdvReac Rapid Verified 10/28/21 09:53 Heart Rate Physical Exam Vitals: Vital Signs Temp Pulse Resp BP Pulse Ox 10/28/21 10:45 98.3 F 88 10/28/21 10:33 84 10/28/21 08:47 84 19 138/73 95 10/28/21 07:26 89 10/28/21 07:04 82 10/28/21 05:25 84 16 136/76 96 10/28/21 01:51 84 10/28/21 01:45 80 10/28/21 00:23 99.2 F 90 18 127/70 95 Intake and Output 10/27/21 10/28/21 10/28/21 22:59 06:59 14:59 Other: Weight 201.849 kg GENERAL EXAM: Alert, very pleasant, 60-year-old morbidly obese white male, on 2 L of oxygen with a pulse ox between 92-96%, resting on the gurney in the emergency department oriented 3, comfortable in no apparent distress. HEAD: Normocephalic/atraumatic. EYES: Normal reaction of pupils, equal size. Conjunctiva pink, sclera white. NOSE: Clear with pink turbinates. THROAT: No erythema or exudates. NECK: No masses, no JVD, no thyroid enlargement, no adenopathy. CHEST: No chest wall deformity. Symmetrical expansion. LUNGS: Equal air entry with no crackles, wheeze, rhonchi or dullness. CVS: Regular rate and rhythm, normal S1 and S2, no gallops, no murmurs, no rubs ABDOMEN: Soft, nontender. No hepatosplenomegaly, normal bowel sounds, no guarding or rigidity. EXTREMITIES: No clubbing, significant lower extremity edema, 2+ in bilateral lower extremities, no cyanosis, 2+ pulses and upper and lower extremities. MUSCULOSKELETAL: Muscle strength and tone normal. SPINE: No scoliosis or deformity SKIN: No rashes CENTRAL NERVOUS SYSTEM: Alert and oriented -3. No focal deficits, tone is normal in all 4 extremities. PSYCHIATRIC: Alert and oriented -3. Appropriate affect. Intact judgment and insight. Results - Diagnostic Findings Chest x-ray: image reviewed Assessment and Plan Plan: Symptoms of an acute bronchitis. Chest x-ray was reviewed and there is no interval worsening and the patient has a chronic stable right-sided pleural effusion. No indication for any acute pneumonia. COVID 19 testing is been negative. Influenza and RSV screen were both negative. The patient was started on a prednisone burst taper. The patient was started on Zithromax. His cough has subsided and he is already feeling better for now. He is afebrile and he is hemodynamically stable. He is currently at 2.5 L of oxygen by nasal cannula which is his baseline. Right side pleural effusion , chronic History of an acute cholecystitis, status post laparoscopic cholecystectomy chronic DVT of the right leg, on xarelto anemia, normocytic History of A fib Asthma, COPD HIstory of CVA, TIA DM, type 2 History of DVT History of GERD History of GI bleed HIstory of DJD History of PE hypertension hyperlipidemia History of sleep apnea History of bilateral peripheral neuropathy History of MRSA super morbid obesity with a BMI of 66.1 History of bariatric surgery History of anxiety, depression, bipolar and schizoaffective disorder Remote history of nicotine dependence/ Plan The patient was seen in elevated in the emergency department. The patient's o verall respiratory status is stable. The oxygenation is also stable at 2.5 L per minute nasal cannula. His chest x-ray findings are essentially chronic and the patient is a chronic stable right-sided pleural effusion. We'll suggest continuing home O2. Zithromax for the next 7 days at a dose of 500 mg and a prednisone burst taper starting with 40 mg. Resume all medication. Follow-up with me in the office. No need for thoracentesis as discussed in the earlier dictations. Also continue the combination of Bumex and Aldactone home to be continued on outpatient basis. Also continue Xarelto for long-term anticoagulation. All medication can be ordered resume.
--- NOTE | 2021-10-28 15:43 | P.HPIM ---
History of Present Illness H&P Date: 10/28/21 This is a pleasant 7-year-old male presents to the with complaints of shortness of breath for 2 days. He denies any fever or chills. He does report some nasal congestion as well as a productive cough with yellow-fitzgerald and green colored sputum. Patient wears 2.5 Liters oxygen at home at nighttime and as needed. He does state that in the last few days he did need to wear the oxygen during the day. Patient had a cholecystectomy 2 months ago. He denies any nausea vomiting or diarrhea. He denies any dysuria, urgency or burning. He denies HSV, chest pressure or palpitations. He has chronic lower extremity edema. Past medical history significant for paroxysmal atrial fibrillation, asthma, COPD, congestive heart failure, diabetes mellitus type 2, DVT/PE, , GERD/reflux, GI bleed, hypertension, hyperlipidemia, osteoarthritis, chronic kidney disease stage III, sleep apnea with trilogy ventilator, which he apparently has lost. Patient did have MRSA in his left leg in August of 2021. Patient also has a history of anxiety, depression, bipolar, panic disorder, schizoaffective disorder. He is a former smoker and former EtOH abuse. He's quit smoking in 2012. Patient has a past history of marijuana use he states he has not used in over a year. Patient has a son has been primarily bedbound for the past 2 months. Covid PCR influenza A and B were all negative this admission. Chest x-ray this admission shows large right pleural effusion and right lower lobe infiltrate not changed compared to old exam. There is no obvious heart failure. Most recent echo completed in August 2021 shows an EF of 50-55%, severe concentric left ventricular hypertrophy, LA is moderately dilated, moderate pulmonary hypertension. Patient's right-sided pleural effusion is chronic in nature and has a previous history of thoracentesis 2 most recently in 2019. Vital signs show a temperature 98.3, heart rate 88 sinus rhythm, blood pressure 138/73 and he is 95% on room air. Patient was admitted to the hospital and started on azithromycin with a pulmonary consultation. REVIEW OF SYSTEMS: CONSTITUTIONAL: No fever, no malaise, reports fatigue HEENT: No recent visual problems or hearing problems. Denied any sore throat. CARDIOVASCULAR: No chest pain, orthopnea, PND, no palpitations, no syncope. PULMONARY: Reports shortness of breath at rest and with exertion, reports productive cough GASTROINTESTINAL: No diarrhea, no nausea, no vomiting, no abdominal pain. NEUROLOGICAL: No headaches, no weakness, no numbness. HEMATOLOGICAL: Denies any bleeding or petechiae. GENITOURINARY: Denies any burning micturition, frequency, or urgency. MUSCULOSKELETAL/RHEUMATOLOGICAL: Denies any joint pain. Reports generalized muscle aches and chronic bilateral lower extremity edema. ENDOCRINE: Denies any polyuria or polydipsia. The rest of the 14-point review of systems is negative. PHYSICAL EXAMINATION: GENERAL: The patient is alert and oriented x3, not in any acute distress. Well developed, well nourished. Patient is morbidly obese. HEENT: Pupils are round and equally reacting to light. EOMI. No scleral icterus. No conjunctival pallor. Normocephalic, atraumatic. No pharyngeal erythema. No thyromegaly. CARDIOVASCULAR: S1 and S2 present. No murmurs, rubs, or gallops. PULMONARY: Chest is clear to auscultation, no crackles. There is faint end expiratory wheezing. ABDOMEN: Soft, nontender, nondistended, normoactive bowel sounds. No palpable organomegaly. Abdomen is large and obese. MUSCULOSKELETAL: No joint swelling or deformity. EXTREMITIES: No cyanosis, clubbing. There is bilateral 3+ Lower Extremity edema. NEUROLOGICAL: Gross neurological examination did not reveal any focal deficits. SKIN: No rashes. Assessment and plan Assessment Possible acute bronchitis, improving with prednisone burst taper and oral azithromycin, no evidence for pneumonia, chest xray demonstrates chronic right pleural effusion, and viral panel is negative for COVID, influenza A/B. History of chronic hypercapnic respiratory failure related to obesity hypoventilation syndrome, sleep apnea with trilogy ventilator Right sided pleural effusion, chronic Status Post Cholecystectomy from acute cholecystitis recently Asthma, COPD, not in acute exacerbation Paroxysmal Atrial Fibrillation History of PE History of DVT with chronic DVT right leg, on xarelto Diabetes mellitus type 2 with peripheral neuropathy Chronic Kidney Disease stage III Congestive heart failure, most recent echo shows an EF of 50-55% with diastolic dysfunction, not in acute exacerbation Hypertension Hyperlipidemia History of GI Bleed History of MRSA, History of anxiety with panic disorder/depression History of bipolar/schizoaffective disorder History of remote nicotine use History of remote THC abuse DVT Prophylaxis: Xarelto GI Prophylaxis: Protonix Plan Continue on oral steroids, oral antibiotics Pulmonary Consultation Resume home medications Discharge home when cleared by pulmonary F/U pulmonary outpatient Repeat labs outpatient Past Medical History Past Medical History: Atrial Fibrillation, Asthma, Cancer, Heart Failure, COPD, CVA/TIA, Diabetes Mellitus, Deep Vein Thrombosis (DVT), GERD/Reflux, GI Bleed, Hyperlipidemia, Hypertension, Osteoarthritis (OA), Pneumonia, Pulmonary Embolus (PE), Renal Disease, Respiratory Disorder, Sleep Apnea/CPAP/BIPAP Additional Past Medical History / Comment(s): Pt recently admitted to [facility] on 08/05/19 with acute on chronic CHF/abnormal ECHO-see report/paroxysmal afib/bilateral pleural effusions with R sided thoracentesis. Other hx: Pt denies diabetes stating he has hypoglycemia/pt recently transfered to [facility] for endocrinology consultation-states he wasn't told anything new, states he has bilateral feet neuropathy, colitis, chronic diffuse abdominal pain, chronic generalized pain, fluid retention, bedbound, lower GI bleed, hiatal hernia, DVT in leg which traveled to his lung, DDD, scoliosis, ALEXIS without device, CKD stage III, pseudoseizures with past extensive work up thru [facility], basal cell skin cancer removed from face. History of Any Multi-Drug Resistant Organisms: MRSA Date of last positivie culture/infection: MRSA 09/05/21 MDRO Source:: LEG Past Surgical History: Appendectomy, Bariatric Surgery, Heart Catheterization, Hernia Repair, Joint Replacement, Orthopedic Surgery Additional Past Surgical History / Comment(s): Gastric sleeve in 2013, L inguinal hernia repair, R elbow surgery x2, total R hip arthroplasty, L knee arthroscopy/ACL surgery, R ankle ORIF, EGD, colonoscopy, basal cell skin cancer from face, surgery for varicele. Past Anesthesia/Blood Transfusion Reactions: Previous Problems w/ Anesthesia Additional Past Anesthesia/Blood Transfusion Reaction / Comment(s): STATES HE WAS TOLD HE WAS A DIFFICULT INTUBATION WITH GASTRIC SLEEVE SURGERY, Past Psychological History: Anxiety, Bipolar, Depression, Panic Disorder, Schizoaffective Disorder Smoking Status: Former smoker Past Alcohol Use History: None Reported Past Drug Use History: None Reported - Past Family History Father Family Medical History: Cancer Additional Family Medical History / Comment(s): LUNG CA Mother Family Medical History: Coronary Artery Disease (CAD) Additional Family Medical History / Comment(s): Mother of an infection. Medications and Allergies Home Medications Medication Instructions Recorded Confirmed Type Rivaroxaban [Xarelto] 20 mg PO DAILY 07/14/19 10/28/21 History Atorvastatin [Lipitor] 10 mg PO HS 08/03/19 10/28/21 History OLANZapine 20 mg PO HS 10/29/20 10/28/21 History Omeprazole 20 mg PO DAILY 03/27/21 10/28/21 History DULoxetine HCL [Cymbalta] 60 mg PO DAILY 09/05/21 10/28/21 History Spironolactone [Aldactone] 25 mg PO BID 09/05/21 10/28/21 History Acetaminophen Tab [Tylenol] 650 mg PO Q6HR PRN tab 09/16/21 10/28/21 Rx Buprenorphine HCl [Belbuca] 450 mcg SL BID #2 film 09/16/21 10/28/21 Rx Diltiazem Oral [Cardizem*] 30 mg PO TID tab 09/16/21 10/28/21 Rx Docusate [Colace] 100 mg PO DAILY cap 09/16/21 10/28/21 Rx Gabapentin 600 mg PO TID #6 tab 09/16/21 10/28/21 Rx Ipratropium-Albuterol Nebulize 3 ml INHALATION RT-QID PRN ml 09/16/21 10/28/21 Rx [Duoneb 0.5 mg-3 mg/3 ml Soln] Ipratropium-Albuterol Nebulize 3 ml INHALATION RT-TID ml 09/16/21 10/28/21 Rx [Duoneb 0.5 mg-3 mg/3 ml Soln] Nystatin 100,000 Unit/ml Susp 500,000 unit PO QID ml 09/16/21 10/28/21 Rx [Mycostatin Oral Susp] polyethylene glycoL 3350 [Miralax] 17 gm PO DAILY packet 09/16/21 10/28/21 Rx Albuterol Sulfate [Ventolin HFA] 1 - 2 puff INHALATION RT-Q6H PRN 10/28/2110/28 History Azithromycin [Zithromax] 500 mg PO DAILY 7 Days #7 tab 10/28/21 Rx Bumetanide [BUMEX] 2 mg PO BID 10/28/21 10/28/21 History Lactulose 6.67 gm PO BID 10/28/21 10/28/21 History Potassium Chloride [Klor-Con 20] 20 meq PO TID 10/28/21 10/28/21 History Tamsulosin HCl [Flomax] 0.4 mg PO DAILY 10/28/21 10/28/21 History Tiotropium 2.5 Mcg/Puff [Spiriva 1 puff INHALATION RT-DAILY 10/28/21 10/28/21 History Respimat 2.5 Mcg] Allergies Allergy/AdvReac Type Severity Reaction Status Date / Time codeine Allergy Severe Swelling Verified 10/28/21 09:53 OF THROAT WITH COUGH SYRUP chlorpheniramine Allergy Unknown Verified 10/28/21 09:53 febuxostat [From Uloric] Allergy Unknown Verified 10/28/21 09:53 phenylephrine Allergy Unknown Verified 10/28/21 09:53 piperacillin sodium Allergy Unknown Verified 10/28/21 09:53 [From Zosyn] sulfamethoxazole Allergy Unknown Verified 10/28/21 09:53 [From Bactrim] tazobactam sodium Allergy Unknown Verified 10/28/21 09:53 [From Zosyn] trimethoprim [From Bactrim] Allergy Unknown Verified 10/28/21 09:53 buspirone [From BuSpar] AdvReac Rapid Verified 10/28/21 09:53 Heart Rate Physical Exam Vitals: Vital Signs Temp Pulse Resp BP Pulse Ox 10/28/21 10:45 98.3 F 88 10/28/21 10:33 84 10/28/21 08:47 84 19 138/73 95 10/28/21 07:26 89 10/28/21 07:04 82 10/28/21 05:25 84 16 136/76 96 10/28/21 01:51 84 10/28/21 01:45 80 10/28/21 00:23 99.2 F 90 18 127/70 95 Intake and Output 10/27/21 10/28/21 10/28/21 22:59 06:59 14:59 Other: Weight 201.849 kg Assessment and Plan Time with Patient: Greater than 30
--- NOTE | 2021-10-28 15:55 | P.DS ---
Providers Date of admission: 10/28/21 07:19 Attending physician: Marquez Zaragoza MD Consults: 10/28/21 07:19 Consult Physician Routine Consulting Provider: Ynes Hendrickson Consult Reason/Comments: copd exacerbation Do you want consulting provider notified?: Yes Primary care physician: [facility] Hospital Course: Patient is discharged home after evaluation by pulmonary services. He will finish a course of azithromycin for 7 days, and 5 days of a steroid burst. Follow up with PCP, and pulmonary services. CBC and BMP in 2 days. Please see H & P for additional information. Plan - Discharge Summary New Discharge Prescriptions: New Azithromycin [Zithromax] 500 mg PO DAILY 7 Days #7 tab predniSONE [Deltasone] 40 mg PO DAILY 5 Days #10 tab Continue Rivaroxaban [Xarelto] 20 mg PO DAILY Atorvastatin [Lipitor] 10 mg PO HS OLANZapine 20 mg PO HS Omeprazole 20 mg PO DAILY Spironolactone [Aldactone] 25 mg PO BID DULoxetine HCL [Cymbalta] 60 mg PO DAILY Ipratropium-Albuterol Nebulize [Duoneb 0.5 mg-3 mg/3 ml Soln] 3 ml INHALATION RT-QID PRN ml PRN Reason: Shortness Of Breath Or Wheezing polyethylene glycoL 3350 [Miralax] 17 gm PO DAILY packet Nystatin 100,000 Unit/ml Susp [Mycostatin Oral Susp] 500,000 unit PO QID ml Tamsulosin HCl [Flomax] 0.4 mg PO DAILY Potassium Chloride [Klor-Con 20] 20 meq PO TID Lactulose 6.67 gm PO BID Bumetanide [BUMEX] 2 mg PO BID Albuterol Sulfate [Ventolin HFA] 1 - 2 puff INHALATION RT-Q6H PRN PRN Reason: Shortness Of Breath Diltiazem Oral [Cardizem*] 30 mg PO TID tab Docusate [Colace] 100 mg PO DAILY cap Ipratropium-Albuterol Nebulize [Duoneb 0.5 mg-3 mg/3 ml Soln] 3 ml INHALATION RT-TID ml Acetaminophen Tab [Tylenol] 650 mg PO Q6HR PRN tab PRN Reason: Fever And/ Or Pain Buprenorphine HCl [Belbuca] 450 mcg SL BID #2 film Gabapentin 600 mg PO TID #6 tab Tiotropium 2.5 Mcg/Puff [Spiriva Respimat 2.5 Mcg] 1 puff INHALATION RT-DAILY Discharge Medication List Rivaroxaban [Xarelto] 20 mg PO DAILY 07/14/19 [History] Atorvastatin [Lipitor] 10 mg PO HS 08/03/19 [History] OLANZapine 20 mg PO HS 10/29/20 [History] Omeprazole 20 mg PO DAILY 03/27/21 [History] DULoxetine HCL [Cymbalta] 60 mg PO DAILY 09/05/21 [History] Spironolactone [Aldactone] 25 mg PO BID 09/05/21 [History] Acetaminophen Tab [Tylenol] 650 mg PO Q6HR PRN tab 09/16/21 [Rx] Buprenorphine HCl [Belbuca] 450 mcg SL BID #2 film 09/16/21 [Rx] Diltiazem Oral [Cardizem*] 30 mg PO TID tab 09/16/21 [Rx] Docusate [Colace] 100 mg PO DAILY cap 09/16/21 [Rx] Gabapentin 600 mg PO TID #6 tab 09/16/21 [Rx] Ipratropium-Albuterol Nebulize [Duoneb 0.5 mg-3 mg/3 ml Soln] 3 ml INHALATION RT-QID PRN ml 09/16/21 [Rx] Ipratropium-Albuterol Nebulize [Duoneb 0.5 mg-3 mg/3 ml Soln] 3 ml INHALATION RT-TID ml 09/16/21 [Rx] Nystatin 100,000 Unit/ml Susp [Mycostatin Oral Susp] 500,000 unit PO QID ml 09/16/21 [Rx] polyethylene glycoL 3350 [Miralax] 17 gm PO DAILY packet 09/16/21 [Rx] Albuterol Sulfate [Ventolin HFA] 1 - 2 puff INHALATION RT-Q6H PRN 10/28/21 [History] Azithromycin [Zithromax] 500 mg PO DAILY 7 Days #7 tab 10/28/21 [Rx] Bumetanide [BUMEX] 2 mg PO BID 10/28/21 [History] Lactulose 6.67 gm PO BID 10/28/21 [History] Potassium Chloride [Klor-Con 20] 20 meq PO TID 10/28/21 [History] Tamsulosin HCl [Flomax] 0.4 mg PO DAILY 10/28/21 [History] Tiotropium 2.5 Mcg/Puff [Spiriva Respimat 2.5 Mcg] 1 puff INHALATION RT-DAILY 10/28/21 [History] predniSONE [Deltasone] 40 mg PO DAILY 5 Days #10 tab 10/28/21 [Rx] Follow up Appointment(s)/Referral(s): [facility],Clinic [Primary Care Provider] - 1-2 days Ynes Hendrickson MD [STAFF PHYSICIAN] - 1 Week Ambulatory/Diagnostic Orders: Basic Metabolic Panel [LAB.AMB] Time Frame: 2 Days, Location: None Selected Complete Blood Count w/diff [LAB.AMB] Time Frame: 2 Days, Location: None Selected Discharge Disposition: HOME WITH HOME HEALTH SERVICES
[2021-10-28 19:38] VITALS: BP 145/88; PULSE 102; RESP 20; TEMP 97.7
[2021-10-28] MEDS ORDERED: ATORVASTATIN 10 MG TAB PO SCH (21:00)
[2021-10-28] MEDS ORDERED: OLANZapine 10 MG TAB PO SCH (21:00)
[2021-10-29] MEDS ORDERED: predniSONE 20 MG TAB PO SCH (09:00)
== END 2021-10-28 19:37 | disposition home health service (06) ==
LOC: EC 00:08 → 1SOBS 07:19 → 6NMEDSUR 14:08
PROVIDERS: ADMIT Internal Medicine; ATTEND Internal Medicine
DX: J44.9 Chronic obstructive pulmonary disease, unspecified (principal); J96.12 Chronic respiratory failure with hypercapnia; I27.81 Cor pulmonale (chronic); I13.0 Hypertensive heart and chronic kidney disease with heart failure and stage 1 through stage 4 chronic kidney disease, or unspecified chronic kidney disease; E11.22 Type 2 diabetes mellitus with diabetic chronic kidney disease; N18.30 Chronic kidney disease, stage 3 unspecified; Z20.822 Contact with and (suspected) exposure to COVID-19; Z90.49 Acquired absence of other specified parts of digestive tract; E11.42 Type 2 diabetes mellitus with diabetic polyneuropathy; E78.5 Hyperlipidemia, unspecified; G89.4 Chronic pain syndrome; I27.29 Other secondary pulmonary hypertension; I48.0 Paroxysmal atrial fibrillation; I50.42 Chronic combined systolic (congestive) and diastolic (congestive) heart failure; Z74.01 Bed confinement status; F41.0 Panic disorder [episodic paroxysmal anxiety]; F31.9 Bipolar disorder, unspecified; F25.9 Schizoaffective disorder, unspecified; E66.2 Morbid (severe) obesity with alveolar hypoventilation; Z68.44 Body mass index [BMI] 60.0-69.9, adult; K21.9 Gastro-esophageal reflux disease without esophagitis; K40.90 Unilateral inguinal hernia, without obstruction or gangrene, not specified as recurrent; M19.90 Unspecified osteoarthritis, unspecified site; Z79.899 Other long term (current) drug therapy; Z79.01 Long term (current) use of anticoagulants; Z88.5 Allergy status to narcotic agent; Z88.6 Allergy status to analgesic agent; Z88.2 Allergy status to sulfonamides; Z88.0 Allergy status to penicillin; Z88.8 Allergy status to other drugs, medicaments and biological substances; Z96.641 Presence of right artificial hip joint; Z87.01 Personal history of pneumonia (recurrent); Z87.891 Personal history of nicotine dependence; Z98.84 Bariatric surgery status; Z85.828 Personal history of other malignant neoplasm of skin; Z86.718 Personal history of other venous thrombosis and embolism; Z86.711 Personal history of pulmonary embolism; Z86.14 Personal history of Methicillin resistant Staphylococcus aureus infection; Z86.73 Personal history of transient ischemic attack (TIA), and cerebral infarction without residual deficits; Z80.1 Family history of malignant neoplasm of trachea, bronchus and lung; Z82.49 Family history of ischemic heart disease and other diseases of the circulatory system
CPT/HCPCS: 99285; 96365; 94640 ×2; 87502; 87635; 71046; G0378; J0696; J7512

== ENCOUNTER 2022-02-26 06:53 | Day surgery (SDC) | payer MEDICARE, BC ==
[2022-02-25 09:11] VITALS: BMI 51.0
[2022-02-26 07:18] VITALS: TEMP 96.7
[2022-02-26] MEDS ORDERED: LACTATED RINGERS 1,000 ML IV ONE (07:23)
[2022-02-26 07:34] LABS: Glucose,Whole Blood 89 mg/dL (75-99)
[2022-02-26] MEDS ORDERED: methylPREDNISolone ACETATE 40 MG/ML 1 ML VIAL ONE (07:41)
[2022-02-26] MEDS ORDERED: IOPAMIDOL M200 10 ML VIAL ONE (07:41)
[2022-02-26] MEDS ORDERED: fentaNYL (PF) 50 MCG/ML 2 ML AMP ONE (07:41)
--- NOTE | 2022-02-26 08:04 | P.PCN ---
Date of Procedure: 02/26/22 Description of Procedure: PREOPERATIVE DIAGNOSIS: lumbar radiculopathy POSTOPERATIVE DIAGNOSIS: Lumbar radiculopathy PROCEDURE 1. Lumbar epidural steroid injection under fluoroscopic guidance at the L4-L5 level. 2. Lumbar epidurogram. Imaging: Fluoroscopy was used, images where saved to the medical record ANESTHESIA: Local with 1% lidocaine 5 ml and 50 g of fentanyl EBL: Minimal PROCEDURE INDICATION: The patient with low back pain and radiculitis symptoms unresponsive to conservative treatment. Fluoroscopy was used to optimize visualization of the needle placement and to maximize safety. PROCEDURE DESCRIPTION / TECHNIQUE: The patient was seen and identified in the preoperative area. Risks, benefits, complications including but not limited to infections ,bleeding ,allergic reaction to the medications, nerve damage and incomplete pain relief , as well as alternatives to the procedure were discussed with the patient. The patient agreed to proceed with the procedure and signed the consent. IV was started, and vital signs were stable. Patient was taken to the OR and time out was completed. The patient was placed in the prone position on procedure table and a pillow was placed under the abdomen to reduce lumbar lordosis. The lumbosacral area was prepped and draped in the usual sterile fashion. Vitals were closely monitored during the procedure. Using anterior-posterior fluoroscopy, the L 4-5 interlaminar space was identified and the skin over this site was marked and then infiltrated with 1% lidocaine subcutaneously. Subsequently, a 18-gauge 5inch Tuohy epidural needle was inserted and advanced toward the epidural space using the Loss of resistance technique and guided by AP and lateral fluoroscopy. The correct needle position in the epidural space was verified with the injection of 1 mL of Omnipaque 180 contrast to observe an acceptable epidurogram, after negative aspiration for blood and CSF and in the absence of paresthesias. Again after negative aspiration, a 3 ml mixture containing 40mg of depomedrol and 2 ml of preservative free Normal Saline was injected and a washout of epidurogram was seen. Needle was withdrawn intact, skin was cleansed, and bandages were applied. COMPLICATIONS: None DISPOSITION / PLANS: The patient was placed in a supine position and transferred to the recovery area in a stable condition for observation. There was no evidence of lower extremity motor or sensory deficit after the procedure. Patient was discharged from the recovery room after meeting discharge criteria. Home discharge instructions were given to the patient by the staff. The patient was reexamined prior to discharge. I have explained to the patient that if this injection helps with repeated as needed. If it doesn't help that we should not repeated. He is a morbidly obese gentleman requires a significant amount of planning to make these procedures and visits happen. I would like to ensure that it is helpful for him before we proceed with any other visits unless they are indicated.
[2022-02-26] MEDS ORDERED: IV FLUID CONTINUATION 1,000 ML IV ONE (08:06)
[2022-02-26 08:18] VITALS: BP 110/85; PULSE 88; RESP 18
--- NOTE | 2022-02-26 08:23 | FL ---
EXAMINATION TYPE: FL guided pain mgmt statistic DATE OF EXAM: 02/26/2022 CLINICAL HISTORY: Pain TECHNIQUE: Fluoroscopic-guided lumbar epidural injection COMPARISON: CT dated 09/05/2021 FINDINGS: Fluoroscopic guidance was provided during the procedure. A total of 4 seconds of fluorosco pic time was utilized during the procedure and 1 spot image was acquired. IMPRESSION: As Above.
== END 2022-02-26 08:45 | disposition home or self-care (01) ==
LOC: ORPAIN 06:53
PROVIDERS: ATTEND Hospitalist
DX: M54.16 Radiculopathy, lumbar region (principal); J44.9 Chronic obstructive pulmonary disease, unspecified; Z88.1 Allergy status to other antibiotic agents; Z88.5 Allergy status to narcotic agent; Z88.2 Allergy status to sulfonamides
CPT/HCPCS: 62323; J1030; J3010; Q9966

== ENCOUNTER → 2022-03-11 | Outpatient (CLI) | payer MEDICARE, BC ==
[2022-03-11 08:17] VITALS: BP 130/89; PULSE 72; RESP 18
--- NOTE | 2022-03-11 08:32 | P.PN ---
Subjective Progress Note Date: 03/11/22 Principal diagnosis: A 61 yr old morbidly obese bed bound male with a history of severe and chronic low back pain secondary to lumbar degenerative disc diseases and lumbar spondylosis with facet arthropathy presents today for evaluation s/p LESI L4-L5 #1 and medication refills. Patient states he experienced 50% pain relief for one week status post procedure, then the pain relief decreased thereafter. Pain level is currently at 6 out of 10 in intensity, constant, achy in the lower aspects of his lumbar spine was sharp shooting pain down the left lower extremity. Patient also complains of localized, on and off left knee pain which is exacerbated with weightbearing activity. Pain is provoked by sitting upright or standing. Pain is alleviated with medications, injections, physical therapy in August 2021, home stretching regimen, use of a posture-pedic bed and rest. Interventional pain procedures completed include LESI L4-L5 #1 Patient is currently on Percocet 10/325mg Patient denies any side effects of the medication(s), denies excessive drowsiness or sleepiness, denies suicidal ideation and reports that the current pain medication is helping to control the pain and improve activities of daily living. Patient denies any motor or sensory deficits. Patient denies any fever or night sweats, denies any change in the bowel movements or urination. Physical Examination: -Constitutional: Cooperative. Not in acute distress . -HEENT: Neck is supple. No lymphadenopathy. No thyromegaly. Normal thyroid size. Eyes: No ptosis , no icterus, no photophobia. ENT: No auditory deficits. Normal oropharynx. No Thrush. - Respiratory: Chest clear to auscultations bilaterally. No wheezing. No rhonchi. - Cardiovascular: Regular rate and rhythm. S1 / S2 , no S3 , no S4. - Gastrointestinal: Abdomen soft no tenderness. Bowel sounds positive in all four quadrants. No organomegaly. - Genitourinary: Deferred. - Neurologic: Cranial nerve II to XII intact. No focal neurological deficits. - Psychatric: Alert & oriented x 3. Matching mood & appropriate affect. Judgment and insight intact. - Lymphatic: No Lymphadenopathy. - Musculoskeletal: Cervical spine: Muscle bulk/ tone/ strength in the bilateral upper extremities normal. Facet loading test cervical area positive. Lumbar spine: Motor bulk/ tone/ strength lower extremities , thigh and legs : 5/5 Deep tendon reflexes : Normal Knee Jerk. Normal Ankle Jerk . Vertebral body tenderness to palpation over Lumbar Facet Loading Test positive L4 Straight Leg Raise: positive at 30 degrees right side/ left side Gaenslen's Test positive L knee diffuse tenderness to palpation with suprapatellar edema Sacral spine : Severe tenderness over the Sacroiliac joint: right side / left side Range of motion: Flexion of the lumbar spine <60 degrees Range of motion: Extension of the lumbar spine <20 degrees Gaenslen's Test positive Kathy test: positive right side / left side Assessment and plan: Chronic low back pain secondary to lumbar degenerative disc disease , lumbar spondylosis with facet arthropathy without myelopathy Recommendation of L TFESI L4-L5 #2. May need a series of injections, up to 3 within a six-month period, to obtain optimal pain relief. Risks, benefits of procedure discussed and patient verbalized understanding. Denies anticoagulant use. Denies medical history of diabetes. Chronic and current use of high-risk medication (Opioids). The patient was counseled about risk of opioid use, psychological risk associated with opioids and was orally counseled to not overuse , divert or sell medications. Pt is to store medication in a safe location. The patient is counseled against driving while using narcotic medications and also not to use alcohol or any illicit recreational drugs. Patient verbalized understanding that the lack of compliance will result in failure to renew narcotic prescription(s) as well as possible discharge from the clinic Diagnoses, prognosis and treatment options including but not limited to physical therapy, surgical interventions, interventional therapies and medication management including narcotics and adjuvant medication were discussed. All patient questions answered MAPS reviewed and it was appropriate. MRI of the L knee re: OA M17.9 Prescription refill for Percocet 10/325mg w 1 refill. Add Belbuca subQ #60 w 1 refill. I have spent 31 minutes on patient care today. Dr Landaverde was available by phone for the evaluation of this patient. The time was used to review the medical records including relevant urine studies and Prescription history (MAPs), review of the available imaging, evaluation and examination of the patient, coordination of care with the medical staff and if applicable referring physicians, as well as creation of the medical record Objective - Vital Signs Vital signs: Vital Signs Temp Pulse 72 03/11/22 08:11 Resp 18 03/11/22 08:11 BP 130/89 04/13/22 08:11 Pulse Ox 98 03/11/22 08:11 Intake & Output 03/10/22 03/11/22 03/11/22 18:59 06:59 18:59 Weight 199.581 kg PQRS Measure Charge Sheet Mode of Arrival: Stretcher - Pain Location Lower Back Non-Pharmacological Interventions: Heat, Home Exercise, Ice, Inactivity, Physical Therapy, Position/Reposition Pharmacological Interventions: Epidural, PRN Medication PQRS Narrative: Smoking Status Former smoker Narcotic Agreement Date Signed 03/11/22 Blood Pressure 130/89 Pain Intensity [Lower Back] 6 Hx Alcohol Use (MH) No Home Medications: Ambulatory Orders Rivaroxaban [Xarelto] 20 mg PO DAILY 07/14/19 OLANZapine 20 mg PO HS 10/29/20 Omeprazole 20 mg PO DAILY 03/27/21 DULoxetine HCL [Cymbalta] 60 mg PO DAILY 09/05/21 Diltiazem Oral [Cardizem*] 30 mg PO TID tab 09/16/21 Gabapentin 600 mg PO TID #6 tab 09/16/21 Albuterol Sulfate [Ventolin HFA] 1 - 2 puff INHALATION RT-Q6H PRN 10/28/21 Bumetanide [BUMEX] 2 mg PO BID 10/28/21 Potassium Chloride [Klor-Con 20] 10 meq PO BID 10/28/21 Tamsulosin HCl [Flomax] 0.4 mg PO DAILY 10/28/21 Tiotropium 2.5 Mcg/Puff [Spiriva Respimat 2.5 Mcg] 2 puff INHALATION RT-DAILY 10/28/21 Metoprolol Tartrate [Lopressor] 25 mg PO BID 01/12/22 Albuterol Nebulized [Ventolin Nebulized] 2.5 mg INHALATION Q8H 02/25/22 Buprenorphine HCl [Belbuca] 450 mcg SL BID PRN 02/25/22 Lactulose 10 gm PO DAILY 02/25/22 Losartan [Cozaar] 25 mg PO DAILY 02/25/22 Spironolactone [Aldactone] 25 mg PO DAILY 02/25/22 Buprenorphine HCl [Belbuca] 150 mcg BUCCAL Q12H 30 Days #60 film 03/11/22 oxyCODONE HCL/ACETAMINOPHEN [Percocet 5-325 mg] 1 tab PO Q6HR PRN 30 Days #100 tab 03/11/22 oxyCODONE HCL/ACETAMINOPHEN [Percocet 5-325 mg] 1 tab PO Q6HR PRN 30 Days #100 tab 03/11/22
== END ==
LOC: PNWHC3 07:50
PROVIDERS: ATTEND Specialist
DX: M51.36 Other intervertebral disc degeneration, lumbar region (principal); M47.816 Spondylosis without myelopathy or radiculopathy, lumbar region; G89.29 Other chronic pain; E66.01 Morbid (severe) obesity due to excess calories; Z74.01 Bed confinement status; Z79.891 Long term (current) use of opiate analgesic; Z87.891 Personal history of nicotine dependence; Z88.5 Allergy status to narcotic agent; Z68.43 Body mass index [BMI] 50.0-59.9, adult; Z88.1 Allergy status to other antibiotic agents; Z88.2 Allergy status to sulfonamides; Z88.8 Allergy status to other drugs, medicaments and biological substances
CPT/HCPCS: 99211

== ENCOUNTER 2022-04-30 17:42 | Emergency (ER) | payer MEDICARE, BC, OTHER ==
[2022-04-30 18:00] VITALS: TEMP 98.4
[2022-04-30] MEDS ORDERED: IPRATROPIUM-ALBUTEROL 3 ML NEB INHALATION STA (18:08)
--- NOTE | 2022-04-30 18:15 | ED ---
SOB HPI - General Chief Complaint: Shortness of Breath Stated Complaint: CAROLYN Time Seen by Provider: 04/30/22 17:57 Source: patient, RN notes reviewed Mode of arrival: ambulatory Limitations: no limitations - History of Present Illness Initial Comments: This is a 61-year-old male with a history of congestive heart failure and chronic lung disease with hypoventilation. Patient has had shortness of breath which he relates to his ventilator/BiPAP machine not being appropriately calibrated and was actually inoperable for the past week. Patient was admitted to [facility] from April 12 through last for congestive heart failure. Patient was sent home but his BiPAP was not calibrated correctly. He was not wearing it. Apparently had outpatient laboratory work done yesterday at [facility]. He was called today and told that his carbon dioxide level was elevated. Patient complaining of some shortness of breath. Denies fever or chills. No chest pain. No increased edema. Patient states his medications were changed at [facility]. States he was changed from diltiazem and metoprolol. He also was started on spironolactone. Potassium was halted. Patient states he was given a different diuretic, sounds like Bumex. No headache, no fever or chills, no changes in vision or hearing, no sore throat or difficulty with speech, no neck pain, no chest pain, no abdominal pain, no nausea or vomiting, no changes in urination or bowel movements, no numbness or tingling, no extremity pain, no skin rashes or lesions. Oxygen dependent. Patient wears 3 L at home. MD Complaint: shortness of breath - Related Data Home Medications Medication Instructions Recorded Confirmed Rivaroxaban [Xarelto] 20 mg PO DAILY 07/14/19 04/13/22 OLANZapine 20 mg PO HS 10/29/20 04/13/22 Omeprazole 20 mg PO DAILY 03/27/21 04/13/22 DULoxetine HCL [Cymbalta] 60 mg PO DAILY 09/05/21 04/13/22 Albuterol Sulfate [Ventolin HFA] 1 - 2 puff INHALATION RT-Q6H PRN 10/28/21 04/13/22 Bumetanide [BUMEX] 2 mg PO BID 10/28/21 04/13/22 Potassium Chloride [Klor-Con 20] 10 meq PO BID 10/28/21 04/13/22 Tamsulosin HCl [Flomax] 0.4 mg PO DAILY 10/28/21 04/14/22 Tiotropium 2.5 Mcg/Puff [Spiriva 2 puff INHALATION RT-DAILY 10/28/21 04/14/22 Respimat 2.5 Mcg] Albuterol Nebulized [Ventolin 2.5 mg INHALATION Q8H 02/25/22 04/13/22 Nebulized] Lactulose 10 gm PO DAILY 02/25/22 04/13/22 Previous Rx's Medication Instructions Recorded Diltiazem Oral [Cardizem*] 30 mg PO TID tab 09/16/21 Gabapentin 600 mg PO TID #6 tab 09/16/21 oxyCODONE HCL/ACETAMINOPHEN 1 tab PO Q6HR PRN 30 Days #100 tab 03/11/22 [Percocet 5-325 mg] Allergies Allergy/AdvReac Type Severity Reaction Status Date / Time codeine Allergy Severe Swelling Verified 04/30/22 18:00 OF THROAT WITH COUGH SYRUP chlorpheniramine Allergy Unknown Verified 04/30/22 18:00 febuxostat [From Uloric] Allergy Unknown Verified 04/30/22 18:00 phenylephrine Allergy Unknown Verified 04/30/22 18:00 piperacillin sodium Allergy Unknown Verified 04/30/22 18:00 [From Zosyn] sulfamethoxazole Allergy Unknown Verified 04/30/22 18:00 [From Bactrim] tazobactam sodium Allergy Unknown Verified 04/30/22 18:00 [From Zosyn] trimethoprim [From Bactrim] Allergy Unknown Verified 04/30/22 18:00 buspirone [From BuSpar] AdvReac Rapid Verified 04/30/22 18:00 Heart Rate Review of Systems ROS Statement: Those systems with pertinent positive or pertinent negative responses have been documented in the HPI. ROS Other: All systems not noted in ROS Statement are negative. Past Medical History Past Medical History: Atrial Fibrillation, Asthma, Cancer, Heart Failure, COPD, Deep Vein Thrombosis (DVT), GERD/Reflux, GI Bleed, Hyperlipidemia, Hypertension, Osteoarthritis (OA), Pneumonia, Pulmonary Embolus (PE), Renal Disease, Respiratory Disorder, Sleep Apnea/CPAP/BIPAP Additional Past Medical History / Comment(s): +Covid 1-05-20, hx chronic CHF/abnormal ECHO-see report/paroxysmal afib/bilat pleural effusions w/ R sided thoracentesis. hypoglycemia. BLE neuropathy, colitis, chronic generalized pain, fluid retention, bedbound, hiatal hernia, DDD, scoliosis, ALEXIS w/ CPAP, CKD stage III, pseudoseizures - none in 1 year, basal cell skin cancer, BLE edema, uses O2@2.5 L NC History of Any Multi-Drug Resistant Organisms: MRSA Date of last positivie culture/infection: MRSA 09/05/21 MDRO Source:: LEG Past Surgical History: Appendectomy, Bariatric Surgery, Cholecystectomy, Heart Catheterization, Hernia Repair, Joint Replacement, Orthopedic Surgery Additional Past Surgical History / Comment(s): Gastric sleeve 2014, L inguinal hernia repair, R elbow surgery x2, total R hip arthroplasty, L knee a rthroscopy/ACL surgery, R ankle ORIF, EGD, colonoscopy, basal cell skin cancer exc face, surgery for varicele,lt knee arthroscopy x2 Past Anesthesia/Blood Transfusion Reactions: Previous Problems w/ Anesthesia Additional Past Anesthesia/Blood Transfusion Reaction / Comment(s): STATES WAS TOLD HE WAS A DIFFICULT INTUBATION WITH GASTRIC SLEEVE SURGERY, no problems with gallbladder surgery after gastric sleeve surgery in Aug 2021 Past Psychological History: Anxiety, Bipolar, Depression, Panic Disorder, Schizoaffective Disorder Smoking Status: Former smoker Past Alcohol Use History: None Reported Past Drug Use History: None Reported - Past Family History Father Family Medical History: Cancer Additional Family Medical History / Comment(s): LUNG CA Mother Family Medical History: Coronary Artery Disease (CAD) Additional Family Medical History / Comment(s): Mother of an infection. General Exam - General Exam Comments Initial Comments: Obese male in no acute distress. Vital signs stable, patient afebrile. Patient does not appear to have any increased work of breathing. Limitations: no limitations General appearance: obese Head exam: Present: atraumatic, normocephalic, normal inspection Eye exam: Present: normal appearance, PERRL, EOMI. Absent: scleral icterus, conjunctival injection, periorbital swelling ENT exam: Present: normal exam, mucous membranes moist Neck exam: Present: normal inspection, full ROM. Absent: tenderness, meningismus, lymphadenopathy Respiratory exam: Present: normal lung sounds bilaterally, chest wall tenderness. Absent: respiratory distress, wheezes, rales, rhonchi, stridor Cardiovascular Exam: Present: regular rate, normal rhythm, normal heart sounds. Absent: systolic murmur, diastolic murmur, rubs, gallop, clicks GI/Abdominal exam: Present: soft, normal bowel sounds. Absent: distended, tenderness, guarding, rebound, rigid Extremities exam: Present: normal inspection, full ROM, normal capillary refill. Absent: tenderness, pedal edema, joint swelling, calf tenderness Back exam: Present: normal inspection Neurological exam: Present: alert, oriented X3, CN II-XII intact Psychiatric exam: Present: normal affect, normal mood Skin exam: Present: warm, dry, intact, normal color. Absent: rash Course Vital Signs 04/30/22 04/30/22 04/30/22 17:56 19:10 19:16 Temperature 98.4 F Pulse Rate 79 74 72 Respiratory 22 Rate Blood Pressure 130/68 O2 Sat by Pulse 97 Oximetry - Reevaluation(s) Reevaluation #1: 04/30/22 19:06 Medical record is reviewed Patient is in no distress. Does not appear to be ill or toxic. No respiratory distress. Alert and oriented 4, cranial nerves II-12 are intact Patient is informed of results and questions answered Patient in no distress Medical Decision Making - Medical Decision Making ABG reveals fully compensated respiratory acidosis with a pCO2 of 67, pH of 7.44, no hypoxemia Patient workup shows compensated respiratory acidosis with hypercarbia. However patient is alert and oriented 4. No neurological complaints. Patient has BiPAP at home which he just had calibrated to his hospital settings. Patient admittedly did not wear it last night. I did offer admission to the patient. Patient states he has a machine at home and everything is set up. Patient states he will wear the machined as much as possible. Patient is in no respiratory distress at the time I'm seeing him. Shows no evidence of infectious process. Chest x-ray does show a right-sided pleural effusion which patient had at the other facility. Patient also states she's had this for years. We'll have the patient follow-up with his health education director. Patient was told to return to the ER for any signs or symptoms worsen. Told to return immediately if any other problems arise. All questions answered. Treatment plan discussed. Patient in agreement Every effort has been made to ensure accuracy of this dictation. However, due to the limitations of electronic medical records and dictation devices, errors in charting still occur. The case was discussed in detail with ED attending physician. Presentation, findings, treatment plan discussed in detail. Supervisor [employer] [facility]. Camara - Lab Data Result diagrams: 04/30/22 18:35 04/30/22 18:35 Lab Results 04/30/22 04/30/22 04/30/22 Range/Units 18:35 18:35 18:35 WBC 8.6 (3.8-10.6) k/uL RBC 4.44 (4.30-5.90) m/uL Hgb 10.5 L (13.0-17.5) gm/dL Hct 36.3 L (39.0-53.0) % MCV 81.8 (80.0-100.0) fL MCH 23.7 L (25.0-35.0) pg MCHC 29.0 L (31.0-37.0) g/dL RDW 16.2 H (11.5-15.5) % Plt Count 269 (150-450) k/uL MPV 7.8 Neutrophils % 79 % Lymphocytes % 10 % Monocytes % 6 % Eosinophils % 2 % Basophils % 1 % Neutrophils # 6.8 (1.3-7.7) k/uL Lymphocytes # 0.8 L (1.0-4.8) k/uL Monocytes # 0.6 (0-1.0) k/uL Eosinophils # 0.2 (0-0.7) k/uL Basophils # 0.1 (0-0.2) k/uL Hypochromasia Marked Anisocytosis Slight Sample Site ABG pH (7.35-7.45) ABG pCO2 (35-45) mmHg ABG pO2 (83-108) mmHg ABG HCO3 (21-25) mmol/L ABG Total CO2 (19-24) mmol/L ABG O2 Saturation (94-97) % ABG Base Excess mmol/L Adi Test FiO2 % Sodium 133 L (137-145) mmol/L Potassium 4.2 (3.5-5.1) mmol/L Chloride 86 L (98-107) mmol/L Carbon Dioxide 45 H* (22-30) mmol/L Anion Gap 2 mmol/L BUN 32 H (9-20) mg/dL Creatinine 0.80 (0.66-1.25) mg/dL Est GFR (CKD-EPI)AfAm >90 (>60 ml/min/1.73 sqM) Est GFR (CKD-EPI)NonAf >90 (>60 ml/min/1.73 sqM) Glucose 91 (74-99) mg/dL Calcium 8.7 (8.4-10.2) mg/dL Magnesium 1.9 (1.6-2.3) mg/dL Total Bilirubin 0.3 (0.2-1.3) mg/dL AST 27 (17-59) U/L ALT 23 (4-49) U/L Alkaline Phosphatase 108 (38-126) U/L Troponin I <0.012 (0.000-0.034) ng/mL NT-Pro-B Natriuret Pep pg/mL Total Protein 6.3 (6.3-8.2) g/dL Albumin 3.6 (3.5-5.0) g/dL Urine Color Urine Appearance (Clear) Urine pH (5.0-8.0) Ur Specific Argos (1.001-1.035) Urine Protein (Negative) Urine Glucose (UA) (Negative) Urine Ketones (Negative) Urine Blood (Negative) Urine Nitrite (Negative) Urine Bilirubin (Negative) Urine Urobilinogen (<2.0) mg/dL Ur Leukocyte Esterase (Negative) 04/30/22 04/30/22 04/30/22 Range/Units 18:35 18:37 18:44 WBC (3.8-10.6) k/uL RBC (4.30-5.90) m/uL Hgb (13.0-17.5) gm/dL Hct (39.0-53.0) % MCV (80.0-100.0) fL MCH (25.0-35.0) pg MCHC (31.0-37.0) g/dL RDW (11.5-15.5) % Plt Count (150-450) k/uL MPV Neutrophils % % Lymphocytes % % Monocytes % % Eosinophils % % Basophils % % Neutrophils # (1.3-7.7) k/uL Lymphocytes # (1.0-4.8) k/uL Monocytes # (0-1.0) k/uL Eosinophils # (0-0.7) k/uL Basophils # (0-0.2) k/uL Hypochromasia Anisocytosis Sample Site L radial ABG pH 7.44 (7.35-7.45) ABG pCO2 68 H (35-45) mmHg ABG pO2 94 (83-108) mmHg ABG HCO3 46 H* (21-25) mmol/L ABG Total CO2 48 H (19-24) mmol/L ABG O2 Saturation 97.1 H (94-97) % ABG Base Excess 22.0 mmol/L Adi Test Yes FiO2 32 % Sodium (137-145) mmol/L Potassium (3.5-5.1) mmol/L Chloride (98-107) mmol/L Carbon Dioxide (22-30) mmol/L Anion Gap mmol/L BUN (9-20) mg/dL Creatinine (0.66-1.25) mg/dL Est GFR (CKD-EPI)AfAm (>60 ml/min/1.73 sqM) Est GFR (CKD-EPI)NonAf (>60 ml/min/1.73 sqM) Glucose (74-99) mg/dL Calcium (8.4-10.2) mg/dL Magnesium (1.6-2.3) mg/dL Total Bilirubin (0.2-1.3) mg/dL AST (17-59) U/L ALT (4-49) U/L Alkaline Phosphatase (38-126) U/L Troponin I (0.000-0.034) ng/mL NT-Pro-B Natriuret Pep 175 pg/mL Total Protein (6.3-8.2) g/dL Albumin (3.5-5.0) g/dL Urine Color Light Yellow Urine Appearance Clear (Clear) Urine pH 5.0 (5.0-8.0) Ur Specific Argos 1.008 (1.001-1.035) Urine Protein Negative (Negative) Urine Glucose (UA) Negative (Negative) Urine Ketones Negative (Negative) Urine Blood Negative (Negative) Urine Nitrite Negative (Negative) Urine Bilirubin Negative (Negative) Urine Urobilinogen <2.0 (<2.0) mg/dL Ur Leukocyte Esterase Negative (Negative) - EKG Data EKG Comments: EKG done at 1825 and read by the ED attending physician reveals sinus rhythm with a rate of 78. interventricular conduction delay with an RSR pattern in V1. Normal intervals. No acute ST or T-wave changes. Normal axis. - Radiology Data Radiology results: report reviewed, image reviewed Disposition Clinical Impression: Congestive heart failure (CHF), Pneumothorax, Chronic respiratory failure with hypercapnia Disposition: HOME SELF-CARE Instructions (If sedation given, give patient instructions): Heart Failure (ER) Additional Instructions: Williard BiPAP as much as possible. Continue your home O2 as directed by your health education director. Continue all medications as directed by your physicians. Follow-up with your regular physician as directed. Return to the ER immediately if any symptoms worsen, new symptoms arise, or any other problems develop. Is patient prescribed a controlled substance at d/c from ED?: No Referrals: [facility],Clinic [Primary Care Provider] - 1-2 days Franck Fernández MD [STAFF PHYSICIAN] - As Soon As Possible Time of Disposition: 20:43
[2022-04-30 18:40] LABS: Anisocytosis Slight; Basophils # (A) 0.1 k/uL (0-0.2); Basophils % (A) 1 %; Eosinophils # (A) 0.2 k/uL (0-0.7); Eosinophils % (A) 2 %; HCT 36.3 % (39.0-53.0); HGB 10.5 gm/dL (13.0-17.5); Hypochromasia Marked; Lymphocytes # (A) 0.8 k/uL (1.0-4.8); Lymphocytes % (A) 10 %; MCH 23.7 pg (25.0-35.0); MCV 81.8 fL (80.0-100.0); Mean Platelet Volume 7.8; Monocytes # (A) 0.6 k/uL (0-1.0); Monocytes % (A) 6 %; Neutrophils # (A) 6.8 k/uL (1.3-7.7); Neutrophils % (A) 79 %; Platelet Count 269 k/uL (150-450); RBC 4.44 m/uL (4.30-5.90); RDW 16.2 % (11.5-15.5); WBC 8.6 k/uL (3.8-10.6)
[2022-04-30 18:42] LABS: Appearance,Urine Clear (Clear); Bilirubin,Urine Negative (Negative); Blood,Urine Negative (Negative); Color,Urine Light Yellow; Glucose,Urine (UA) Negative (Negative); Ketones,Urine Negative (Negative); Leukocyte Esterase,Urine Negative (Negative); Nitrite,Urine Negative (Negative); Protein,Urine Negative (Negative); Specific Gravity,Urine 1.008 (1.001-1.035); Urobilinogen,Urine <2.0 mg/dL (<2.0)
[2022-04-30 18:47] LABS: ABG Oxygen Saturation 97.1 % (94-97); ABG PCO2 68 mmHg (35-45); ABG PH 7.44 (7.35-7.45); ABG PO2 94 mmHg (83-108); ABG TCO2 48 mmol/L (19-24); Allen Test Performed? Yes
[2022-04-30 18:48] LABS: ABG HCO3 46 mmol/L (21-25)
[2022-04-30 18:54] LABS: ALT 23 U/L (4-49); AST 27 U/L (17-59); African American GFR (CKD) >90 (>60 ml/min/1.73 sqM); Albumin 3.6 g/dL (3.5-5.0); Alkaline Phosphatase 108 U/L (38-126); Blood Urea Nitrogen 32 mg/dL (9-20); Calcium 8.7 mg/dL (8.4-10.2); Chloride 86 mmol/L (98-107); Glucose 91 mg/dL (74-99); Magnesium 1.9 mg/dL (1.6-2.3); Non-African American GFR(CKD) >90 (>60 ml/min/1.73 sqM); Potassium 4.2 mmol/L (3.5-5.1); Sodium 133 mmol/L (137-145); Total Bilirubin 0.3 mg/dL (0.2-1.3); Total Protein 6.3 g/dL (6.3-8.2)
[2022-04-30 19:00] LABS: Anion Gap 2 mmol/L
[2022-04-30 19:07] LABS: Carbon Dioxide 45 mmol/L (22-30)
--- NOTE | 2022-04-30 19:23 | XR ---
EXAMINATION TYPE: XR chest 1V portable DATE OF EXAM: 04/30/2022 6:44 PM COMPARISON: Chest radiograph 10/28/2021 TECHNIQUE: XR chest 1V portable Frontal view of the chest. CLINICAL INDICATION:Male, 61 years old with history of dyspnea; FINDINGS: Lungs/Pleura: Is minimally increased in size right pleural effusion with associated subsegmental atel ectasis. The left lung remains clear. Pulmonary vascularity: Unremarkable. Heart/mediastinum: Cardiomediastinal silhouette is partially obscured due to overlying and adjacent o pacities. Musculoskeletal: No acute osseous pathology. IMPRESSION: Interval increase in right sided pleural effusion now moderate in conscious
[2022-04-30 21:36] VITALS: BP 128/53; PULSE 82; RESP 16
== END 2022-04-30 21:55 | disposition home or self-care (01) ==
LOC: EC 17:42
DX: I11.0 Hypertensive heart disease with heart failure (principal); I50.9 Heart failure, unspecified; J93.9 Pneumothorax, unspecified; J96.12 Chronic respiratory failure with hypercapnia; J44.9 Chronic obstructive pulmonary disease, unspecified; K21.9 Gastro-esophageal reflux disease without esophagitis; I48.91 Unspecified atrial fibrillation; Z88.8 Allergy status to other drugs, medicaments and biological substances; Z88.2 Allergy status to sulfonamides; Z88.1 Allergy status to other antibiotic agents; Z88.5 Allergy status to narcotic agent; Z79.51 Long term (current) use of inhaled steroids; Z79.899 Other long term (current) drug therapy; Z79.02 Long term (current) use of antithrombotics/antiplatelets
CPT/HCPCS: 36415; 36600; 71045; 80053; 81003; 82805; 83735; 83880; 84484; 85025; 93005; 94640; 99285

== ENCOUNTER → 2022-05-06 | Outpatient (CLI) | payer MEDICARE, BC ==
[2022-05-06 08:45] VITALS: BP 138/88; PULSE 64; RESP 14; TEMP 98.6
--- NOTE | 2022-05-06 08:51 | P.PN ---
Subjective Progress Note Date: 05/06/22 Principal diagnosis: A 61 yr old male with a history of severe and chronic low back pain secondary to lumbar degenerative disc diseases and lumbar spondylosis with facet arthropathy presents today for medication refills. He states he was supposed to undergo TF DIANE of the lumbar spine but was unable to perform due to dense pannus. Pain level is currently at 7 out of 10 in intensity, dull, achy in the mid and lower aspects of the lumbar spine with radiation of pain up the spine to thoracic spine as well as down to the lower extremities. He states Percocet 5/325 is ineffective in managing pain. He also was unable to retrieve Belbuca from the pharmacy from his prior visit. Pain is provoked by inactivity as patient is bound to a hospital bed due to morbid obesity. Pain is alleviated with medications, injections (LESI on 02/26/22 which provided no relief), currently in physical therapy 2 times a week, home-based stretching regimen that the patient is permanently on bedrest at this time, use of a stretcher for ambulation, repositioning and rest. Patient is currently on Percocet 5/325 Patient denies any side effects of the medication(s), denies excessive drowsiness or sleepiness, denies suicidal ideation and reports that the current pain medication is helping to control the pain and improve activities of daily living. Patient denies any motor or sensory deficits. Patient denies any fever or night sweats, denies any change in the bowel movements or urination. Physical Examination: -Constitutional: Cooperative. Not in acute distress . -HEENT: Neck is supple. No lymphadenopathy. No thyromegaly. Normal thyroid size. Eyes: No ptosis , no icterus, no photophobia. ENT: No auditory deficits. Normal oropharynx. No Thrush. - Respiratory: Chest clear to auscultations bilaterally. No wheezing. No rh onchi. - Cardiovascular: Regular rate and rhythm. S1 / S2 , no S3 , no S4. - Gastrointestinal: Abdomen soft no tenderness. Bowel sounds positive in all four quadrants. No organomegaly. - Genitourinary: Deferred. - Neurologic: Cranial nerve II to XII intact. No focal neurological deficits. - Psychatric: Alert & oriented x 3. Matching mood & appropriate affect. Judgment and insight intact. - Lymphatic: No Lymphadenopathy. - Musculoskeletal: Cervical spine: Muscle bulk/ tone/ strength in the bilateral upper extremities normal Vertebral body tenderness to palpation over Facet loading test positive Thoracic spine Muscle bulk / tone/ strength in the bilateral paraspinal muscles normal Vertebral body tender to palpation over T11, T12 Facet loading test positive Lumbar spine: Motor bulk/ tone/ strength lower extremities , thigh and legs : 5/5 Deep tendon reflexes : Normal Knee Jerk. Normal Ankle Jerk . Vertebral body tenderness to palpation over L1, L2, L3, L4, L5 Lumbar Facet Loading Test positive Straight Leg Raise: positive at 30 degrees right side/ left side Gaenslen's Test positive Sacral spine : Severe tenderness over the Sacroiliac joint: right side / left side Range of motion: Flexion of the lumbar spine <60 degrees Range of motion: Extension of the lumbar spine <20 degrees Gaenslen's Test positive Keith's Test positive Kathy test: positive right side / left side Thigh Thrust Test Sacral Thrust Test Assessment and plan: Chronic low back pain secondary to lumbar degenerative disc disease , lumbar spondylosis with facet arthropathy without myelopathy Recommendation of discontinuing Percocet 5/325 and adding Percocet 10/325. We'll also integrate Belbuca SL Chronic and current use of high-risk medication (Opioids). The patient was counseled about risk of opioid use, psychological risk associated with opioids and was orally counseled to not overuse , divert or sell medications. Pt is to store medication in a safe location. The patient is counseled against driving while using narcotic medications and also not to use alcohol or any illicit recreational drugs. Patient verbalized understanding that the lack of compliance will result in failure to renew narcotic prescription(s) as well as possible discharge from the clinic Diagnoses, prognosis and treatment options including but not limited to physical therapy, surgical interventions, interventional therapies and medication management including narcotics and adjuvant medication were discussed. All patient questions answered MAPS reviewed and it was appropriate. Prescription refill for Percocet 10/325mg #90, Belbuca #60 w 1 refill I have spent 31 minutes on patient care today. Dr Landaverde was available by phone for the evaluation of this patient. The time was used to review the medical records including relevant urine studies and Prescription history (MAPs), review of the available imaging, evaluation and examination of the patient, coordination of care with the medical staff and if applicable referring physicians, as well as creation of the medical record Objective - Vital Signs Vital signs: Vital Signs Temp 98.6 F 05/06/22 08:41 Pulse 64 05/06/22 08:41 Resp 14 05/06/22 08:41 BP 138/88 05/06/22 08:41 Pulse Ox 95 05/06/22 08:41 FiO2 PQRS Measure Charge Sheet Mode of Arrival: Stretcher - Pain Location Generalized Non-Pharmacological Interventions: Home Exercise, Inactivity, Physical Therapy, Stretching Pharmacological Interventions: Epidural, PRN Medication, Scheduled Medication PQRS Narrative: Smoking Status Former smoker Narcotic Agreement Date Signed 03/11/22 Blood Pressure 138/88 Pain Intensity [Generalized] 7 Scale Used Numeric (1 - 10) Hx Alcohol Use (MH) No Home Medications: Ambulatory Orders Rivaroxaban [Xarelto] 20 mg PO DAILY 07/14/19 OLANZapine 20 mg PO HS 10/29/20 Omeprazole 20 mg PO DAILY 03/27/21 DULoxetine HCL [Cymbalta] 60 mg PO DAILY 09/05/21 Diltiazem Oral [Cardizem*] 30 mg PO TID tab 09/16/21 Gabapentin 600 mg PO TID #6 tab 09/16/21 Albuterol Sulfate [Ventolin HFA] 1 - 2 puff INHALATION RT-Q6H PRN 10/28/21 Bumetanide [BUMEX] 2 mg PO BID 10/28/21 Potassium Chloride [Klor-Con 20] 10 meq PO BID 10/28/21 Tamsulosin HCl [Flomax] 0.4 mg PO DAILY 10/28/21 Tiotropium 2.5 Mcg/Puff [Spiriva Respimat 2.5 Mcg] 2 puff INHALATION RT-DAILY 10/28/21 Albuterol Nebulized [Ventolin Nebulized] 2.5 mg INHALATION Q8H 02/25/22 Lactulose 10 gm PO DAILY 02/25/22 Buprenorphine HCl [Belbuca] 150 mcg BUCCAL Q12H 30 Days #60 film 05/06/22 oxyCODONE HCL/ACETAMINOPHEN [Percocet 10-325 mg] 1 tab PO Q8HR PRN 30 Days #90 tab 05/06/22 oxyCODONE HCL/ACETAMINOPHEN [Percocet 10-325 mg] 1 tab PO Q8HR PRN 30 Days #90 tab 05/06/22
== END ==
LOC: PNWHC3 08:28
PROVIDERS: ATTEND Specialist
DX: M51.36 Other intervertebral disc degeneration, lumbar region (principal); M47.816 Spondylosis without myelopathy or radiculopathy, lumbar region; G89.29 Other chronic pain; Z79.891 Long term (current) use of opiate analgesic; Z87.891 Personal history of nicotine dependence; Z88.5 Allergy status to narcotic agent; Z88.1 Allergy status to other antibiotic agents; Z88.2 Allergy status to sulfonamides; Z88.8 Allergy status to other drugs, medicaments and biological substances
CPT/HCPCS: 99211

== ENCOUNTER → 2022-07-01 | Outpatient (CLI) | payer OTHER, MEDICARE, BC ==
[2022-07-01 09:04] VITALS: BP 101/58; PULSE 69; RESP 16; TEMP 99
--- NOTE | 2022-07-01 13:32 | P.PAINPG ---
PQRS Measure Charge Sheet Comment: A 61 yr old male transported via stretcher with a history of severe and chronic low back pain secondary to lumbar degenerative disc diseases and lumbar spondylosis with facet arthropathy presents today for medication refills. Pain level is currently at 5/10 in intensity, constant, localized in the mid back, lower back and BL hips, dull/ achy in character w pain towards the hips BL. Pain is provoked by weight bearing activity. Pain is alleviated with medications (Percocet, Lidoderm patches), PT twice weekly, repositioning and rest. He could not tolerate procedure at his last visit due to too much fatty tissue surrounding epidural region. Could not get Belbuca covered by his insurance at this last pharmacy and would like to transfer to [facility]. Interventional pain procedures completed include DENIES Patient is currently on Percocet, Belbuca (he could not afford) Patient denies any side effects of the medication(s), denies excessive drowsiness or sleepiness, denies suicidal ideation and reports that the current pain medication is helping to control the pain and improve activities of daily living. Patient denies any motor or sensory deficits. Patient denies any fever or night sweats, denies any change in the bowel movements or urination. Physical Examination: -Constitutional: Cooperative. Not in acute distress . - Neurologic: Cranial nerve II to XII intact. No focal neurological deficits. - Psychatric: Alert & oriented x 3. Matching mood & appropriate affect. Judgment and insight intact. - Musculoskeletal: Cervical spine: Muscle bulk/ tone/ strength in the bilateral upper extremities normal Vertebral body tenderness to palpation over Spurling test positive Distraction test positive Facet loading test positive Thoracic spine Muscle bulk / tone/ strength in the bilateral paraspinal muscles normal Vertebral body tender to palpation over T10- T12 Facet loading test positive Lumbar spine: Motor bulk/ tone/ strength lower extremities , thigh and legs : 5/5 Deep tendon reflexes : Normal Knee Jerk. Normal Ankle Jerk . Vertebral body tenderness to palpation over L1-L5 Lumbar Facet Loading Test positive Straight Leg Raise: positive at 30 degrees right side/ left side Gaenslen's Test positive Sacral spine : Severe tenderness over the Sacroiliac joint: right side / left side Range of motion: Flexion of the lumbar spine <60 degrees Range of motion: Extension of the lumbar spine <20 degrees Gaenslen's Test positive Keith's Test positive Kathy test: positive right side / left side Thigh Thrust Test Sacral Thrust Test Assessment and plan: Chronic low back pain secondary to lumbar degenerative disc disease , lumbar spondylosis with facet arthropathy without myelopathy Chronic and current use of high-risk medication (Opioids). The patient was counseled about risk of opioid use, psychological risk associated with opioids and was orally counseled to not overuse , divert or sell medications. Pt is to store medication in a safe location. The patient is counseled against driving while using narcotic medications and also not to use alcohol or any illicit recreational drugs. Patient verbalized understanding that the lack of compliance will result in failure to renew narcotic prescription(s) as well as possible discharge from the clinic Diagnoses, prognosis and treatment options including but not limited to physical therapy, surgical interventions, interventional therapies and medication management including narcotics and adjuvant medication were discussed. All patient questions answered MAPS reviewed and it was appropriate. Blood tox screen collected today 07/01/22. Pt can not produce urine at this time and can not tolerate urinary cath due to intractable pain. Prescription refill for Percocer 10/325mg #90, Belbuca 300mg SL #60 w 1 refill I have spent less than 30 minutes on patient care today. Dr Landaverde was available by phone for the evaluation of this patient. The time was used to review the medical records including relevant urine studies and Prescription history (MAPs), review of the available imaging, evaluation and examination of the patient, coordination of care with the medical staff and if applicable referring physicians, as well as creation of the medical record PQRS Narrative: Smoking Status Former smoker Narcotic Agreement Date Signed 03/11/22 Hx Alcohol Use (MH) No Home Medications: Ambulatory Orders Rivaroxaban [Xarelto] 20 mg PO DAILY 07/14/19 OLANZapine 20 mg PO HS 10/29/20 Omeprazole 20 mg PO DAILY 03/27/21 DULoxetine HCL [Cymbalta] 60 mg PO DAILY 09/05/21 Diltiazem Oral [Cardizem*] 30 mg PO TID tab 09/16/21 Gabapentin 600 mg PO TID #6 tab 09/16/21 Albuterol Sulfate [Ventolin HFA] 1 - 2 puff INHALATION RT-Q6H PRN 10/28/21 Bumetanide [BUMEX] 2 mg PO BID 10/28/21 Potassium Chloride [Klor-Con 20] 10 meq PO BID 10/28/21 Tamsulosin HCl [Flomax] 0.4 mg PO DAILY 10/28/21 Tiotropium 2.5 Mcg/Puff [Spiriva Respimat 2.5 Mcg] 2 puff INHALATION RT-DAILY 10/28/21 Albuterol Nebulized [Ventolin Nebulized] 2.5 mg INHALATION Q8H 02/25/22 Lactulose 10 gm PO DAILY 02/25/22 buprenorphine HCL [Belbuca] 150 mcg BUCCAL Q12H 30 Days #60 film 05/06/22 buprenorphine HCL [Belbuca] 300 mcg BUCCAL DAILY 30 Days #60 film 07/01/22 oxyCODONE HCL/ACETAMINOPHEN [Percocet 10-325 mg] 1 tab PO Q8HR PRN 30 Days #90 tab 07/01/22 oxyCODONE HCL/ACETAMINOPHEN [Percocet 10-325 mg] 1 tab PO Q8HR PRN 30 Days #90 tab 07/01/22 Controlled Substance Measures - Controlled Substance Measures Is patient prescribed a controlled substance at discharge?: Yes When asked, does pt state using other controlled substances?: No If prescribed controlled substance>3 days was MAPS reviewed?: Yes If Rx opioid, was Start Talking consent form obtained?: Yes Was information provided regarding opioid addiction?: Yes
[2022-07-02 12:01] LABS: Serum Amphetamine Negative; Serum Barbiturates Negative; Serum Benzodiazepine Negative; Serum Cocaine Negative; Serum Methadone Negative; Serum Opiates Negative; Serum Phencyclidine Negative; Serum Propoxyphene Negative; Serum THC (Cannabis) Negative
== END ==
LOC: PNWHC3 08:10
PROVIDERS: ATTEND Specialist
DX: M51.36 Other intervertebral disc degeneration, lumbar region (principal); M47.816 Spondylosis without myelopathy or radiculopathy, lumbar region; G89.29 Other chronic pain; Z87.891 Personal history of nicotine dependence; Z79.891 Long term (current) use of opiate analgesic; Z51.81 Encounter for therapeutic drug level monitoring; Z88.5 Allergy status to narcotic agent; Z88.1 Allergy status to other antibiotic agents; Z88.8 Allergy status to other drugs, medicaments and biological substances; Z88.2 Allergy status to sulfonamides
CPT/HCPCS: 80307; 99211

== ENCOUNTER → 2022-08-26 | Outpatient (CLI) | payer OTHER, MEDICARE, BC ==
[2022-08-26 08:41] VITALS: BP 111/67; PULSE 76; RESP 16
--- NOTE | 2022-08-26 14:51 | P.PAINPG ---
Objective - Vital Signs Vital signs: Intake & Output 08/25/22 08/26/22 08/26/22 18:59 06:59 18:59 Weight 204.117 kg PQRS Measure Charge Sheet Comment: A 61 yr old obese male in bariatric stretcher with a history of severe and chronic low back pain secondary to lumbar degenerative disc diseases and lumbar spondylosis with facet arthropathy without myelopathy presents today for medication refills. Pain level is currently at 5/10 in intensity, constant, localized in lower lumbar spine, dull/ achy in character w shooting towards BL hips. Also has constant R ankle pain s/p fracture & repair when he twisted it last month. He has increased R ankle swelling currently. Pain is provoked by weight bearing activity. Pain is alleviated with medications, PT/ OT ( which come to his home), medications, heat, ice, home exercise regimen as tolerated, laying supine and rest. He has difficulty keeping up w PT/OT due to pain and needs an increase in medication to take 1 hr prior to sessions. He has completed R ankle x ray at [facility]. Interventional pain procedures completed include LESI (Could not perform TFESI due to large body mass) Patient is currently on Percocet, Belbuca Patient denies any side effects of the medication(s), denies excessive tera wsiness or sleepiness, denies suicidal ideation and reports that the current pain medication is helping to control the pain and improve activities of daily living. Patient denies any motor or sensory deficits. Patient denies any fever or night sweats, denies any change in the bowel movements or urination. Physical Examination: -Constitutional: Cooperative. Not in acute distress . - Neurologic: Cranial nerve II to XII intact. No focal neurological deficits. - Psychatric: Alert & oriented x 3. Matching mood & appropriate affect. Judgment and insight intact. - Musculoskeletal: Cervical spine: Muscle bulk/ tone/ strength in the bilateral upper extremities normal Vertebral body tenderness to palpation over Spurling test positive Distraction test positive Facet loading test positive Thoracic spine Muscle bulk / tone/ strength in the bilateral paraspinal muscles normal Vertebral body tender to palpation over Facet loading test positive Lumbar spine: Motor bulk/ tone/ strength lower extremities , thigh and legs : 5/5 Deep tendon reflexes : Normal Knee Jerk. Normal Ankle Jerk . Vertebral body tenderness to palpation over L3, L4, L5 Lumbar Facet Loading Test positive Straight Leg Raise: positive at 30 degrees right side/ left side Gaenslen's Test positive Sacral spine : Severe tenderness over the Sacroiliac joint: right side / left side Range of motion: Flexion of the lumbar spine <60 degrees Range of motion: Extension of the lumbar spine <20 degrees Gaenslen's Test positive Keith's Test positive Kathy test: positive right side / left side Thigh Thrust Test Sacral Thrust Test Assessment and plan: Chronic low back pain secondary to lumbar degenerative disc disease , lumbar spondylosis with facet arthropathy without myelopathy Recommendation of MRI without contrast of the R ankle re: R22.41 Chronic and current use of high-risk medication (Opioids). The patient was counseled about risk of opioid use, psychological risk associated with opioids and was orally counseled to not overuse , divert or sell medications. Pt is to store medication in a safe location. The patient is counseled against driving while using narcotic medi cations and also not to use alcohol or any illicit recreational drugs. Patient verbalized understanding that the lack of compliance will result in failure to renew narcotic prescription(s) as well as possible discharge from the clinic Diagnoses, prognosis and treatment options including but not limited to physical therapy, surgical interventions, interventional therapies and medicat ion management including narcotics and adjuvant medication were discussed. All patient questions answered MAPS reviewed and it was appropriate. Prescription refill for Percocet /325mg # , Belbuca w 1 RF I have spent less than 30 minutes on patient care today. Dr Landaverde was available by phone for the evaluation of this patient. The time was used to review the medical records including relevant urine studies and Prescription history (MAPs), review of the available imaging, evaluation and examination of the patient, coordination of care with the medical staff and if applicable referring physicians, as well as creation of the medical record PQRS Narrative: Smoking Status Former smoker Narcotic Agreement Date Signed 03/11/22 Hx Alcohol Use (MH) No Home Medications: Ambulatory Orders Rivaroxaban [Xarelto] 20 mg PO DAILY 07/14/19 OLANZapine 20 mg PO HS 10/29/20 Omeprazole 20 mg PO DAILY 03/27/21 DULoxetine HCL [Cymbalta] 60 mg PO DAILY 09/05/21 Diltiazem Oral [Cardizem*] 30 mg PO TID tab 09/16/21 Gabapentin 600 mg PO TID #6 tab 09/16/21 Albuterol Sulfate [Ventolin HFA] 1 - 2 puff INHALATION RT-Q6H PRN 10/28/21 Bumetanide [BUMEX] 2 mg PO BID 10/28/21 Potassium Chloride [Klor-Con 20] 10 meq PO BID 10/28/21 Tamsulosin HCl [Flomax] 0.4 mg PO DAILY 10/28/21 Tiotropium 2.5 Mcg/Puff [Spiriva Respimat 2.5 Mcg] 2 puff INHALATION RT-DAILY 10/28/21 Albuterol Nebulized [Ventolin Nebulized] 2.5 mg INHALATION Q8H 02/25/22 Lactulose 10 gm PO DAILY 02/25/22 buprenorphine HCL [Belbuca] 300 mcg BUCCAL DAILY 30 Days #30 film 07/13/22 oxyCODONE HCL/ACETAMINOPHEN [Percocet 10-325 mg] 1 tab PO Q8HR PRN 30 Days #90 tab 07/13/22 oxyCODONE HCL/ACETAMINOPHEN [Percocet 10-325 mg] 1 tab PO Q8HR PRN 30 Days #90 tab 07/13/22 oxyCODONE HCL/ACETAMINOPHEN [Percocet 10-325 mg Tablet] 1 each PO Q8H PRN 30 Days #90 tab 07/15/22 oxyCODONE HCL/ACETAMINOPHEN [Percocet 10-325 mg] 1 tab PO Q8HR PRN 30 Days #90 tab 07/15/22 buprenorphine HCL [Belbuca] 300 mcg BUCCAL BID 90 Days #180 film 07/22/22 Controlled Substance Measures - Controlled Substance Measures Is patient prescribed a controlled substance at discharge?: Yes When asked, does pt state using other controlled substances?: No If prescribed controlled substance>3 days was MAPS reviewed?: Yes If Rx opioid, was Start Talking consent form obtained?: Yes Was information provided regarding opioid addiction?: Yes
== END ==
LOC: PNWHC3 08:13
PROVIDERS: ATTEND Specialist
DX: M47.816 Spondylosis without myelopathy or radiculopathy, lumbar region (principal); M54.50 Low back pain, unspecified; M51.36 Other intervertebral disc degeneration, lumbar region; Z87.891 Personal history of nicotine dependence; Z88.5 Allergy status to narcotic agent; Z88.2 Allergy status to sulfonamides; Z88.0 Allergy status to penicillin; Z88.8 Allergy status to other drugs, medicaments and biological substances; Z88.9 Allergy status to unspecified drugs, medicaments and biological substances
CPT/HCPCS: 99211

== ENCOUNTER 2022-09-09 16:36 | Observation (INO) | payer OTHER, MEDICARE, BC ==
[2022-09-09] MEDS ORDERED: methylPREDNISolone SOD SUCCI 125 MG/2 ML VIAL IV STA (16:49)
--- NOTE | 2022-09-09 16:57 | ED ---
SOB HPI - General Chief Complaint: Shortness of Breath Stated Complaint: CAROLYN Time Seen by Provider: 09/09/22 16:41 Source: patient, EMS, RN notes reviewed Mode of arrival: EMS Limitations: no limitations - History of Present Illness Initial Comments: This is a 61-year-old male with a past medical history of COPD, CHF, A. fib, hypertension, and ALEXIS who presents to the emergency department for difficulty breathing. Patient states that when he woke up this morning, he had difficulty breathing. He tried two breathing treatments with no relief. Also notes an increase in swelling to both of his legs. Denies any current chest pain, but states that 3 days ago he was experiencing chest pain that seemed to improve after a bowel movement. Patient is concerned that his carbon dioxide level is elevated again, causing the symptoms. He is on 2 L of oxygen at home, and states that he increased this to 3 L. Additionally, the patient states that he is a patient of Dr. Garcia and Dr. Bonner, and is unable to get into their office because he is too big. He is hoping that if he is admitted, they can evaluate his teeth here so he can schedule an appointment to have them pulled due to multiple dental caries and chipped teeth. Denies any fevers, chills, sore throat, chest pain, palpitations, abdominal pain, nausea, vomiting, diarrhea, back pain, or headaches. MD Complaint: shortness of breath Known History Of: COPD, asthma, congestive heart failure Treatments Prior to Arrival: bronchodilator - Related Data Home Medications Medication Instructions Recorded Confirmed Rivaroxaban [Xarelto] 20 mg PO DAILY 07/14/19 09/09/22 OLANZapine 20 mg PO HS 10/29/20 09/09/22 Omeprazole 20 mg PO BID 03/27/21 09/09/22 DULoxetine HCL [Cymbalta] 60 mg PO DAILY 09/05/21 09/09/22 Albuterol Sulfate [Ventolin HFA] 1 - 2 puff INHALATION RT-Q6H PRN 10/28/21 09/09/22 Bumetanide [BUMEX] 2 mg PO BID 10/28/21 09/09/22 Tamsulosin HCl [Flomax] 0.4 mg PO DAILY 10/28/21 09/09/22 Tiotropium 2.5 Mcg/Puff [Spiriva 2 puff INHALATION RT-DAILY 10/28/21 09/09/22 Respimat 2.5 Mcg] Albuterol Nebulized [Ventolin 2.5 mg INHALATION RT-Q4H PRN 02/25/22 09/09/22 Nebulized] Cholecalciferol [Vitamin D3 (25 25 mcg PO DAILY 09/09/22 09/09/22 Mcg = 1000 Iu)] Gabapentin 600 mg PO DIRECTED 09/09/22 09/09/22 Metoprolol Tartrate [Lopressor] 25 mg PO BID 09/09/22 09/09/22 Spironolactone [Aldactone] 25 mg PO DAILY 09/09/22 09/09/22 allopurinoL [Zyloprim] 100 mg PO DAILY 09/09/22 09/09/22 oxyCODONE HCL/ACETAMINOPHEN 1 tab PO Q8H PRN 09/09/22 09/09/22 [Percocet 10-325 mg Tablet] Previous Rx's Medication Instructions Recorded buprenorphine HCL [Belbuca] 300 mcg BUCCAL BID 90 Days #180 07/22/22 film Allergies Allergy/AdvReac Type Severity Reaction Status Date / Time codeine Allergy Severe Swelling Verified 09/09/22 19:53 OF THROAT WITH COUGH SYRUP chlorpheniramine Allergy Unknown Verified 09/09/22 19:53 febuxostat [From Uloric] Allergy Unknown Verified 09/09/22 19:53 phenylephrine Allergy Unknown Verified 09/09/22 19:53 piperacillin sodium Allergy Unknown Verified 09/09/22 19:53 [From Zosyn] sulfamethoxazole Allergy Unknown Verified 09/09/22 19:53 [From Bactrim] tazobactam sodium Allergy Unknown Verified 09/09/22 19:53 [From Zosyn] trimethoprim [From Bactrim] Allergy Unknown Verified 09/09/22 19:53 buspirone [From BuSpar] AdvReac Rapid Verified 09/09/22 19:53 Heart Rate Review of Systems ROS Statement: Those systems with pertinent positive or pertinent negative responses have been documented in the HPI. ROS Other: All systems not noted in ROS Statement are negative. Past Medical History Past Medical History: Atrial Fibrillation, Asthma, Cancer, Heart Failure, COPD, Deep Vein Thrombosis (DVT), GERD/Reflux, GI Bleed, Hyperlipidemia, Hypertension, Osteoarthritis (OA), Pneumonia, Pulmonary Embolus (PE), Renal Disease, Respiratory Disorder, Sleep Apnea/CPAP/BIPAP Additional Past Medical History / Comment(s): +Covid 1-6-22, hx chronic CHF/abnormal ECHO-see report/paroxysmal afib/bilat pleural effusions w/ R sided thoracentesis. hypoglycemia. BLE neuropathy, colitis, chronic generalized pain, fluid retention, bedbound, hiatal hernia, DDD, scoliosis, ALEXIS w/ CPAP, CKD stage III, pseudoseizures - none in 1 year, basal cell skin cancer, BLE edema, uses O2@2.5 L NC History of Any Multi-Drug Resistant Organisms: MRSA Date of last positivie culture/infection: MRSA 09/05/21 MDRO Source:: LEG Past Surgical History: Appendectomy, Bariatric Surgery, Cholecystectomy, Heart Catheterization, Hernia Repair, Joint Replacement, Orthopedic Surgery Additional Past Surgical History / Comment(s): Gastric sleeve 2013, L inguinal hernia repair, R elbow surgery x2, total R hip arthroplasty, L knee arthroscopy/ACL surgery, R ankle ORIF, EGD, colonoscopy, basal cell skin cancer exc face, surgery for varicele,lt knee arthroscopy x2 Past Anesthesia/Blood Transfusion Reactions: Previous Problems w/ Anesthesia Additional Past Anesthesia/Blood Transfusion Reaction / Comment(s): STATES WAS TOLD HE WAS A DIFFICULT INTUBATION WITH GASTRIC SLEEVE SURGERY, no problems with gallbladder surgery after gastric sleeve surgery in Aug 2021 Past Psychological History: Anxiety, Bipolar, Depression, Panic Disorder, Schizoaffective Disorder Smoking Status: Former smoker Past Alcohol Use History: None Reported Past Drug Use History: None Reported - Past Family History Father Family Medical History: Cancer Additional Family Medical History / Comment(s): LUNG CA Mother Family Medical History: Coronary Artery Disease (CAD) Additional Family Medical History / Comment(s): Mother of an infection. General Exam Limitations: no limitations General appearance: alert, in no apparent distress Head exam: Present: atraumatic, normocephalic, normal inspection Respiratory exam: Present: decreased breath sounds, prolonged expiratory. Absent: wheezes, rales, rhonchi Cardiovascular Exam: Present: regular rate, normal rhythm, normal heart sounds. Absent: systolic murmur, diastolic murmur, rubs, gallop, clicks Extremities exam: Present: other (Bilateral lower extremity swelling with 2+ pitting edema.) Neurological exam: Present: alert, oriented X3, CN II-XII intact Psychiatric exam: Present: normal affect, normal mood Skin exam: Present: warm, dry, intact, normal color. Absent: rash Course Vital Signs 09/09/22 09/09/22 09/09/22 16:41 18:24 18:38 Temperature 98.9 F Pulse Rate 74 72 76 Respiratory 17 Rate Blood Pressure 124/54 O2 Sat by Pulse 96 Oximetry 09/09/22 19:10 Temperature Pulse Rate Respiratory 17 Rate Blood Pressure O2 Sat by Pulse Oximetry Medical Decision Making - Medical Decision Making This is a 61-year-old male who presents to the emergency department for difficulty breathing. CMP reveals an elevated CO2 at a relatively stable level for the patient. ABG was subsequently obtained, and the CO2 was noted to be higher than in previous cases at a level of 77. Chest x-ray reveals a stable consolidation and pleural fluid in the right lower lobe when compared with the chest x-ray from April of this year. COVID and influenza testing are negative. Patient was given a DuoNeb breathing treatment and Solu-Medrol in the emergency department. He felt like he had minor improvement with the DuoNeb, however he states it is still very difficult for him to breathe. Patient still has very poor aeration before and after the DuoNeb treatment. Patient states that overall he feels awful and states that when he feels like this, he needs admission for her scheduled DuoNebs and steroids or he will decompensate quickly. He is also currently requiring 3L of oxygen as opposed to his typical 2L. Will admit patient to medicine for COPD exacerbation. This case was discussed in detail with the attending ED physician. Presentation, findings, and treatment plan discussed in detail as well. - Lab Data Result diagrams: 09/09/22 17:31 09/09/22 17:31 Lab Results 09/09/22 09/09/22 09/09/22 Range/Units 17:31 17:31 17:31 WBC 4.7 (3.8-10.6) k/uL RBC 3.95 L (4.30-5.90) m/uL Hgb 9.6 L (13.0-17.5) gm/dL Hct 32.8 L (39.0-53.0) % MCV 83.0 (80.0-100.0) fL MCH 24.3 L (25.0-35.0) pg MCHC 29.3 L (31.0-37.0) g/dL RDW 16.7 H (11.5-15.5) % Plt Count 235 (150-450) k/uL MPV 9.1 Neutrophils % 74 % Lymphocytes % 13 % Monocytes % 8 % Eosinophils % 2 % Basophils % 1 % Neutrophils # 3.5 (1.3-7.7) k/uL Lymphocytes # 0.6 L (1.0-4.8) k/uL Monocytes # 0.4 (0-1.0) k/uL Eosinophils # 0.1 (0-0.7) k/uL Basophils # 0.0 (0-0.2) k/uL Hypochromasia Marked Anisocytosis Slight PT 11.1 (9.0-12.0) sec INR 1.0 (<1.2) APTT 29.0 (22.0-30.0) sec Sample Site ABG pH (7.35-7.45) ABG pCO2 (35-45) mmHg ABG pO2 (83-108) mmHg ABG HCO3 (21-25) mmol/L ABG Total CO2 (19-24) mmol/L ABG O2 Saturation (94-97) % ABG Base Excess mmol/L Adi Test FiO2 % Sodium 136 L (137-145) mmol/L Potassium 3.7 (3.5-5.1) mmol/L Chloride 84 L (98-107) mmol/L Carbon Dioxide 43 H* (22-30) mmol/L Anion Gap 9 mmol/L BUN 32 H (9-20) mg/dL Creatinine 0.79 (0.66-1.25) mg/dL Est GFR (CKD-EPI)AfAm >90 (>60 ml/min/1.73 sqM) Est GFR (CKD-EPI)NonAf >90 (>60 ml/min/1.73 sqM) Glucose 118 H (74-99) mg/dL Calcium 9.0 (8.4-10.2) mg/dL Total Bilirubin 0.4 (0.2-1.3) mg/dL AST 19 (17-59) U/L ALT 16 (4-49) U/L Alkaline Phosphatase 95 (38-126) U/L Troponin I (0.000-0.034) ng/mL NT-Pro-B Natriuret Pep pg/mL Total Protein 5.8 L (6.3-8.2) g/dL Albumin 3.4 L (3.5-5.0) g/dL Coronavirus (PCR) (Not Detectd) Influenza Type A RNA (Not Detectd) Influenza Type B (PCR) (Not Detectd) 09/09/22 09/09/22 09/09/22 Range/Units 17:31 17:31 17:31 WBC (3.8-10.6) k/uL RBC (4.30-5.90) m/uL Hgb (13.0-17.5) gm/dL Hct (39.0-53.0) % MCV (80.0-100.0) fL MCH (25.0-35.0) pg MCHC (31.0-37.0) g/dL RDW (11.5-15.5) % Plt Count (150-450) k/uL MPV Neutrophils % % Lymphocytes % % Monocytes % % Eosinophils % % Basophils % % Neutrophils # (1.3-7.7) k/uL Lymphocytes # (1.0-4.8) k/uL Monocytes # (0-1.0) k/uL Eosinophils # (0-0.7) k/uL Basophils # (0-0.2) k/uL Hypochromasia Anisocytosis PT (9.0-12.0) sec INR (<1.2) APTT (22.0-30.0) sec Sample Site ABG pH (7.35-7.45) ABG pCO2 (35-45) mmHg ABG pO2 (83-108) mmHg ABG HCO3 (21-25) mmol/L ABG Total CO2 (19-24) mmol/L ABG O2 Saturation (94-97) % ABG Base Excess mmol/L Adi Test FiO2 % Sodium (137-145) mmol/L Potassium (3.5-5.1) mmol/L Chloride (98-107) mmol/L Carbon Dioxide (22-30) mmol/L Anion Gap mmol/L BUN (9-20) mg/dL Creatinine (0.66-1.25) mg/dL Est GFR (CKD-EPI)AfAm (>60 ml/min/1.73 sqM) Est GFR (CKD-EPI)NonAf (>60 ml/min/1.73 sqM) Glucose (74-99) mg/dL Calcium (8.4-10.2) mg/dL Total Bilirubin (0.2-1.3) mg/dL AST (17-59) U/L ALT (4-49) U/L Alkaline Phosphatase (38-126) U/L Troponin I <0.012 (0.000-0.034) ng/mL NT-Pro-B Natriuret Pep 570 pg/mL Total Protein (6.3-8.2) g/dL Albumin (3.5-5.0) g/dL Coronavirus (PCR) (Not Detectd) Influenza Type A RNA Not Detected (Not Detectd) Influenza Type B (PCR) Not Detected (Not Detectd) 09/09/22 09/09/22 Range/Units 17:31 19:21 WBC (3.8-10.6) k/uL RBC (4.30-5.90) m/uL Hgb (13.0-17.5) gm/dL Hct (39.0-53.0) % MCV (80.0-100.0) fL MCH (25.0-35.0) pg MCHC (31.0-37.0) g/dL RDW (11.5-15.5) % Plt Count (150-450) k/uL MPV Neutrophils % % Lymphocytes % % Monocytes % % Eosinophils % % Basophils % % Neutrophils # (1.3-7.7) k/uL Lymphocytes # (1.0-4.8) k/uL Monocytes # (0-1.0) k/uL Eosinophils # (0-0.7) k/uL Basophils # (0-0.2) k/uL Hypochromasia Anisocytosis PT (9.0-12.0) sec INR (<1.2) APTT (22.0-30.0) sec Sample Site lrad ABG pH 7.41 (7.35-7.45) ABG pCO2 77 H* (35-45) mmHg ABG pO2 88 (83-108) mmHg ABG HCO3 48 H* (21-25) mmol/L ABG Total CO2 50 H (19-24) mmol/L ABG O2 Saturation 97.7 H (94-97) % ABG Base Excess 23.2 mmol/L Adi Test Yes FiO2 32 % Sodium (137-145) mmol/L Potassium (3.5-5.1) mmol/L Chloride (98-107) mmol/L Carbon Dioxide (22-30) mmol/L Anion Gap mmol/L BUN (9-20) mg/dL Creatinine (0.66-1.25) mg/dL Est GFR (CKD-EPI)AfAm (>60 ml/min/1.73 sqM) Est GFR (CKD-EPI)NonAf (>60 ml/min/1.73 sqM) Glucose (74-99) mg/dL Calcium (8.4-10.2) mg/dL Total Bilirubin (0.2-1.3) mg/dL AST (17-59) U/L ALT (4-49) U/L Alkaline Phosphatase (38-126) U/L Troponin I (0.000-0.034) ng/mL NT-Pro-B Natriuret Pep pg/mL Total Protein (6.3-8.2) g/dL Albumin (3.5-5.0) g/dL Coronavirus (PCR) Not Detected (Not Detectd) Influenza Type A RNA (Not Detectd) Influenza Type B (PCR) (Not Detectd) - EKG Data EKG Comments: Sinus rhythm. Ventricular rate 72 bpm, WV interval 162 ms, QRS duration 126 ms, QTC 440 ms. - Radiology Data Radiology results: report reviewed, image reviewed Disposition Clinical Impression: COPD exacerbation, Hypercarbia Disposition: ADMITTED IP TO THIS HOSP Referrals: [facility] [place] [Primary Care Provider] - 1-2 days
[2022-09-09 17:58] LABS: Prothrombin Time 11.1 sec (9.0-12.0)
[2022-09-09 17:59] LABS: Anisocytosis Slight; Basophils % (A) 1 %; Eosinophils # (A) 0.1 k/uL (0-0.7); Eosinophils % (A) 2 %; HCT 32.8 % (39.0-53.0); HGB 9.6 gm/dL (13.0-17.5); Hypochromasia Marked; Lymphocytes # (A) 0.6 k/uL (1.0-4.8); Lymphocytes % (A) 13 %; MCH 24.3 pg (25.0-35.0); MCHC 29.3 g/dL (31.0-37.0); Mean Platelet Volume 9.1; Monocytes # (A) 0.4 k/uL (0-1.0); Monocytes % (A) 8 %; Neutrophils # (A) 3.5 k/uL (1.3-7.7); Neutrophils % (A) 74 %; Platelet Count 235 k/uL (150-450); RBC 3.95 m/uL (4.30-5.90); RDW 16.7 % (11.5-15.5); WBC 4.7 k/uL (3.8-10.6)
--- NOTE | 2022-09-09 18:12 | XR ---
EXAMINATION TYPE: XR chest 2V DATE OF EXAM: 09/09/2022 COMPARISON: 04/30/2022 HISTORY: Short of breath TECHNIQUE: FINDINGS: There is blunting right costophrenic angle and 50% opacification right hemithorax. There is coarsenin g of interstitial markings. Heart appears enlarged. The left lung is clear. No obvious heart failure. There are chest leads. IMPRESSION: There is consolidation and pleural fluid in the right lower lobe which is not significant ly different than old exam. No obvious heart failure
[2022-09-09 18:18] LABS: ALT 16 U/L (4-49); AST 19 U/L (17-59); African American GFR (CKD) >90 (>60 ml/min/1.73 sqM); Albumin 3.4 g/dL (3.5-5.0); Alkaline Phosphatase 95 U/L (38-126); Blood Urea Nitrogen 32 mg/dL (9-20); Chloride 84 mmol/L (98-107); Glucose 118 mg/dL (74-99); Non-African American GFR(CKD) >90 (>60 ml/min/1.73 sqM); Potassium 3.7 mmol/L (3.5-5.1); Sodium 136 mmol/L (137-145); Total Bilirubin 0.4 mg/dL (0.2-1.3); Total Protein 5.8 g/dL (6.3-8.2)
[2022-09-09] MEDS: IPRATROPIUM-ALBUTEROL 3 ML NEB INHALATION STA (18:23)
[2022-09-09 18:24] LABS: Anion Gap 9 mmol/L
[2022-09-09 18:28] LABS: Carbon Dioxide 43 mmol/L (22-30)
[2022-09-09 19:20] LABS: ABG Base Excess 23.2 mmol/L; ABG Oxygen Saturation 97.7 % (94-97); ABG PH 7.41 (7.35-7.45); ABG PO2 88 mmHg (83-108); ABG TCO2 50 mmol/L (19-24); Allen Test Performed? Yes
[2022-09-09 19:28] LABS: ABG PCO2 77 mmHg (35-45)
[2022-09-09 19:29] LABS: ABG HCO3 48 mmol/L (21-25)
[2022-09-09] MEDS: oxyCODONE-APAP 10-325MG 1 EACH TAB PO PRN (20:05)
[2022-09-09] MEDS ORDERED: ONDANSETRON 4 MG/2 ML VIAL IVP PRN (20:33)
[2022-09-09] MEDS ORDERED: NALOXONE 0.4 MG/ML 1 ML VIAL IV PRN (20:33)
[2022-09-09] MEDS: OLANZapine 10 MG TAB PO SCH ×2 (21:39→23:31)
[2022-09-09] MEDS: METOPROLOL TARTRATE 25 MG TAB PO SCH (21:39)
[2022-09-09] MEDS: PANTOPRAZOLE 40 MG TABLET PO SCH (21:39)
[2022-09-09] MEDS: BUMETANIDE 1 MG TAB PO SCH ×2 (21:39→21:51)
[2022-09-09] MEDS: IPRATROPIUM 0.5 MG/2.5 ML NEBU INHALATION SCH (22:58)
--- NOTE | 2022-09-10 01:08 | P.HPIM ---
History of Present Illness H&P Date: 09/09/22 The patient is a 61-year-old male with extensive PMH including COPD, chronic hypoxic respiratory failure on 3 L is a cannula oxygen continuously at home, paroxysmal A. fib and history of PE and DVT on Xarelto, type II DM, chronic kidney disease, diastolic CHF, hypertension, hyperlipidemia, presented to the emergency room with complaints of gradually worsening shortness of breath. The patient reports that over the past 2 or 3 days, his breathing has gradually been worsening, not alleviated with breathing treatments. He denied experiencing fever, chest pain, nausea, vomiting, abdominal pain, diarrhea. 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 Chest x-ray in the emergency room revealed consolidation and pleural fluid in the right lower lobe unchanged from prior. EKG reveals sinus rhythm at 72 bpm with a possible right ventricular conduction delay with no ST/T-wave changes noted as reviewed by me. Laboratory evaluation was remarkable for hemoglobin 9.6 (baseline 10), ABG showing pCO2 77, pH 7.41, with BMP showing CO2 43 and BUN 32 and proBNP 570. Review of systems: Pertinent positives and negatives as discussed in HPI, a complete review of systems was performed and all other systems are negative. Physical examination: General: non toxic, no distress, appears older than stated age, morbidly obese Derm: no unusual rashes/lesions, warm Head: atraumatic, normocephalic, symmetric Eyes: EOMI, no lid lag, anicteric sclera, pupils equal round reactive to light ENT: Nose and ears atraumatic Neck: No cervical lymphadenopathy, trachea midline, supple Mouth: no lip lesion, mucus membranes moist Cardiovascular: S1S2 reg, no murmur, positive dorsalis pedis pulse bilateral, 3+ bilateral lower extremity pitting edema to thighs Lungs: CTA bilateral, no rhonchi, no rales, no accessory muscle use Abdominal: soft, nontender to palpation, no guarding Ext: muscle strength 3 out of 5 of bilateral lower extremities, strength 5 out of 5 in bilateral upper extremities, no gross muscle atrophy, no contractures, Neuro: CN II-XI grossly intact, no gross focal neuro deficits Psych: Alert, oriented, appropriate affect Assessment/plan Acute COPD exacerbation with acute on chronic hypoxic and hypercapnic respi ratory failure -DuoNeb's, Solu-Medrol -Supplemental oxygen Combined metabolic alkalosis with respiratory acidosis -Metabolic alkalosis suspected secondary to over diuresis with Bumex and Aldactone -Patient's BUN and creatinine ratio significant elevated -Discontinue patient's spironolactone at this time -Patient has not had admissions for CHF in the past several years as per chart review Chronic conditions: Type II DM, hyperlipidemia, hypertension, A. fib, CHF -Continue with home medications DVT prophylaxis -Xarelto The patient is admitted with an anticipated greater than 2 midnight stay for evaluation of COPD exacerbation. CODE STATUS: Full Code Discussed with: Patient Anticipated discharge date: 2-[address]: Home Past Medical History Past Medical History: Atrial Fibrillation, Asthma, Cancer, Heart Failure, COPD, Deep Vein Thrombosis (DVT), GERD/Reflux, GI Bleed, Hyperlipidemia, Hypertension, Osteoarthritis (OA), Pneumonia, Pulmonary Embolus (PE), Renal Disease, Respiratory Disorder, Sleep Apnea/CPAP/BIPAP Additional Past Medical History / Comment(s): +Covid 12-04-21, hx chronic CHF/abnormal ECHO-see report/paroxysmal afib/bilat pleural effusions w/ R sided thoracentesis. hypoglycemia. BLE neuropathy, colitis, chronic generalized pain, fluid retention, bedbound, hiatal hernia, DDD, scoliosis, ALEXIS w/ CPAP, CKD stage III, pseudoseizures - none in 1 year, basal cell skin cancer, BLE edema, uses O2@2.5 L NC History of Any Multi-Drug Resistant Organisms: MRSA Date of last positivie culture/infection: MRSA 09/05/21 MDRO Source:: LEG Past Surgical History: Appendectomy, Bariatric Surgery, Cholecystectomy, Heart Catheterization, Hernia Repair, Joint Replacement, Orthopedic Surgery Additional Past Surgical History / Comment(s): Gastric sleeve 2013, L inguinal hernia repair, R elbow surgery x2, total R hip arthroplasty, L knee arthroscopy/ACL surgery, R ankle ORIF, EGD, colonoscopy, basal cell skin cancer exc face, surgery for varicele,lt knee arthroscopy x2 Past Anesthesia/Blood Transfusion Reactions: Previous Problems w/ Anesthesia Additional Past Anesthesia/Blood Transfusion Reaction / Comment(s): STATES WAS TOLD HE WAS A DIFFICULT INTUBATION WITH GASTRIC SLEEVE SURGERY, no problems with gallbladder surgery after gastric sleeve surgery in Aug 2021 Past Psychological History: Anxiety, Bipolar, Depression, Panic Disorder, Schizoaffective Disorder Smoking Status: Former smoker Past Alcohol Use History: None Reported Past Drug Use History: None Reported - Past Family History Father Family Medical History: Cancer Additional Family Medical History / Comment(s): LUNG CA Mother Family Medical History: Coronary Artery Disease (CAD) Additional Family Medical History / Comment(s): Mother of an infection. Medications and Allergies Home Medications Medication Instructions Recorded Confirmed Type Rivaroxaban [Xarelto] 20 mg PO DAILY 07/14/19 09/09/22 History OLANZapine 20 mg PO HS 10/29/20 09/09/22 History Omeprazole 20 mg PO BID 03/27/21 09/09/22 History DULoxetine HCL [Cymbalta] 60 mg PO DAILY 09/05/21 09/09/22 History Albuterol Sulfate [Ventolin HFA] 1 - 2 puff INHALATION RT-Q6H PRN 10/28/21 09/09/22 History Bumetanide [BUMEX] 2 mg PO BID 10/28/21 09/09/22 History Tamsulosin HCl [Flomax] 0.4 mg PO DAILY 10/28/21 09/09/22 History Tiotropium 2.5 Mcg/Puff [Spiriva 2 puff INHALATION RT-DAILY 10/28/21 09/09/22 History Respimat 2.5 Mcg] Albuterol Nebulized [Ventolin 2.5 mg INHALATION RT-Q4H PRN 02/25/22 09/09/22 History Nebulized] buprenorphine HCL [Belbuca] 300 mcg BUCCAL BID 90 Days #180 07/22/22 09/09/22 Rx film Cholecalciferol [Vitamin D3 (25 25 mcg PO DAILY 09/09/22 09/09/22 History Mcg = 1000 Iu)] Gabapentin 600 mg PO DIRECTED 09/09/22 09/09/22 History Metoprolol Tartrate [Lopressor] 25 mg PO BID 09/09/22 09/09/22 History Spironolactone [Aldactone] 25 mg PO DAILY 09/09/22 09/09/22 History allopurinoL [Zyloprim] 100 mg PO DAILY 09/09/22 09/09/22 History oxyCODONE HCL/ACETAMINOPHEN 1 tab PO Q8H PRN 09/09/22 09/09/22 History [Percocet 10-325 mg Tablet] Allergies Allergy/AdvReac Type Severity Reaction Status Date / Time codeine Allergy Severe Swelling Verified 09/09/22 19:53 OF THROAT WITH COUGH SYRUP chlorpheniramine Allergy Unknown Verified 09/09/22 19:53 febuxostat [From Uloric] Allergy Unknown Verified 09/09/22 19:53 phenylephrine Allergy Unknown Verified 09/09/22 19:53 piperacillin sodium Allergy Unknown Verified 09/09/22 19:53 [From Zosyn] sulfamethoxazole Allergy Unknown Verified 09/09/22 19:53 [From Bactrim] tazobactam sodium Allergy Unknown Verified 09/09/22 19:53 [From Zosyn] trimethoprim [From Bactrim] Allergy Unknown Verified 09/09/22 19:53 buspirone [From BuSpar] AdvReac Rapid Verified 09/09/22 19:53 Heart Rate Physical Exam Vitals: Vital Signs Temp Pulse Resp BP Pulse Ox 09/09/22 21:51 75 18 119/73 93 L 09/09/22 19:10 17 09/09/22 18:38 76 09/09/22 18:24 72 09/09/22 16:41 98.9 F 74 17 124/54 96 Intake and Output 09/09/22 09/09/22 09/09/22 06:59 14:59 22:59 Other: Weight 195.045 kg Results CBC & Chem 7: 09/09/22 17:31 09/09/22 17:31 Labs: Abnormal Lab Results - Last 24 Hours (Table) 09/09/22 09/09/22 09/09/22 Range/Units 17:31 17:31 19:21 RBC 3.95 L (4.30-5.90) m/uL Hgb 9.6 L (13.0-17.5) gm/dL Hct 32.8 L (39.0-53.0) % MCH 24.3 L (25.0-35.0) pg MCHC 29.3 L (31.0-37.0) g/dL RDW 16.7 H (11.5-15.5) % Lymphocytes # 0.6 L (1.0-4.8) k/uL ABG pCO2 77 H* (35-45) mmHg ABG HCO3 48 H* (21-25) mmol/L ABG Total CO2 50 H (19-24) mmol/L ABG O2 Saturation 97.7 H (94-97) % Sodium 136 L (137-145) mmol/L Chloride 84 L (98-107) mmol/L Carbon Dioxide 43 H* (22-30) mmol/L BUN 32 H (9-20) mg/dL Glucose 118 H (74-99) mg/dL Total Protein 5.8 L (6.3-8.2) g/dL Albumin 3.4 L (3.5-5.0) g/dL
[2022-09-10] MEDS: IPRATROPIUM-ALBUTEROL 3 ML NEB INHALATION SCH ×5 (03:53→20:45)
[2022-09-10] MEDS: methylPREDNISolone SOD SUCCI 125 MG/2 ML VIAL IV SCH ×3 (05:25→17:37)
[2022-09-10] MEDS: oxyCODONE-APAP 10-325MG 1 EACH TAB PO PRN ×3 (06:28→21:51)
[2022-09-10] MEDS: IPRATROPIUM-ALBUTEROL 3 ML NEB INHALATION STA (07:51)
[2022-09-10] MEDS: INSULIN ASPART (NovoLOG) 100 UNIT/ML VIAL SQ SCH ×4 (08:35→22:09)
[2022-09-10] MEDS: CHOLECALCIFEROL 25 MCG (1000 IU) TABLET PO SCH (08:56)
[2022-09-10] MEDS: DULoxetine HCL 60 MG CAPSULE.DR PO SCH (08:56)
[2022-09-10] MEDS: PANTOPRAZOLE 40 MG TABLET PO SCH ×2 (08:56→17:39)
[2022-09-10] MEDS: METOPROLOL TARTRATE 25 MG TAB PO SCH ×2 (08:56→21:51)
[2022-09-10] MEDS: allopurinoL 100 MG TAB PO SCH (08:57)
[2022-09-10] MEDS: RIVAROXABAN 20 MG TAB PO SCH (08:57)
[2022-09-10] MEDS: TAMSULOSIN 0.4 MG CAP.ER.24H PO SCH (08:57)
[2022-09-10] MEDS: BUMETANIDE 1 MG TAB PO SCH (08:57)
[2022-09-10] MEDS ORDERED: SPIRONOLACTONE 25 MG TAB PO SCH (09:00)
[2022-09-10] MEDS: IPRATROPIUM 0.5 MG/2.5 ML NEBU INHALATION SCH ×2 (09:23→16:13)
[2022-09-10 09:32] LABS: HCT 34.3 % (39.6-50.0); HGB 9.6 g/dL (13.0-17.0); MCH 23.4 pg (27.0-32.0); MCV 83.5 fL (80.0-97.0); Mean Platelet Volume 9.9 fL (9.5-12.2); NRBC Per 100 WBC 0 /100 WBCS (0.0-0.0); Platelet Count 245 X 10*3/uL (140-440); RBC 4.11 X 10*6/uL (4.40-5.60); RDW 17.1 % (11.5-14.5); WBC 4.79 X 10*3/uL (4.50-10.00)
[2022-09-10 10:10] LABS: African American GFR (CKD) 118.9 (60.0-200.0); BUN/Creat Ratio 36.57 Ratio (12.00-20.00); Blood Urea Nitrogen 25.6 mg/dL (9.0-27.0); Calcium 9.2 mg/dL (8.7-10.3); Non-African American GFR(CKD) 102.6 (60.0-200.0); Potassium 4.7 mmol/L (3.5-5.5)
[2022-09-10 10:59] LABS: Appearance,Urine Clear (Clear); Bilirubin,Urine Negative (Negative); Blood,Urine Negative (Negative); Color,Urine Light Yellow; Glucose,Urine (UA) Negative (Negative); Ketones,Urine Negative (Negative); Leukocyte Esterase,Urine Negative (Negative); Nitrite,Urine Negative (Negative); Protein,Urine Trace (Negative); Specific Gravity,Urine 1.016 (1.001-1.035); Urobilinogen,Urine <2.0 mg/dL (<2.0)
--- NOTE | 2022-09-10 12:44 | P.PN ---
Subjective Progress Note Date: 09/10/22 Principal diagnosis: SOB Hospital Course: 61-year-old male with history of COPD, chronic hypoxic respiratory failure on 3 L, paroxysmal A. fib and history of PE and DVT on antibiotic regulation, type 2 diabetes, CAD, diastolic CHF, hypertension, dyslipidemia presented with gradual worsening shortness of breath. Labs were significant for pCO2 of 77, pH 7.41, CO2 43, proBNP 570. His chest x-ray demonstrated consolidation and pleural fluid in the right lower lobe unchanged from prior. EKG showed sinus rhythm with no significant ST-T wave changes. Patient was admitted for acute on chronic hypoxic and hypercapnic respiratory failure secondary to acute COPD exacerbation. Patient is being treated with bronchodilators and steroids. Patient also has respiratory acidosis with compensatory metabolic alkalosis. There is also possibility of contraction alkalosis given diuretics. Subjective: Patient seen and examined at bedside. No acute events overnight. He claims that his breathing is almost back to normal. He denies any chest pain, abdomina l pain, bowel complaints. He does complain about dysuria and increase urgency/frequency. Pertinent positives and negatives as discussed above, a complete review of systems was performed and all other systems are negative. Vitals Signs Reviewed. General: non toxic, no distress, appears older than stated age, morbidly obese Derm: no unusual rashes/lesions, warm Head: atraumatic, normocephalic, symmetric Eyes: EOMI, no lid lag, anicteric sclera, pupils equal round reactive to light ENT: Nose and ears atraumatic Neck: No cervical lymphadenopathy, trachea midline, supple Mouth: no lip lesion, mucus membranes moist, poor dentition Cardiovascular: S1S2 reg, no murmur, positive dorsalis pedis pulse bilateral, 3+ bilateral lower extremity pitting edema to thighs Lungs: CTA bilateral, no rhonchi, no rales, no accessory muscle use Abdominal: soft, nontender to palpation, no guarding Ext: muscle strength 3 out of 5 of bilateral lower extremities, strength 5 out of 5 in bilateral upper extremities, no gross muscle atrophy, no contractures, Neuro: CN II-XI grossly intact, no gross focal neuro deficits Psych: Alert, oriented, appropriate affect Assessment and Plan: Acute on chronic hypoxic and hypercapnic respiratory failure Acute COPD exacerbation Respiratory acidosis with compensatory metabolic alkalosis -duonebs, steroids -Patient now back to his baseline home O2 Dysuria, increased frequency -UA pending Diastolic heart failure, not in exacerbation -Continue home meds Multiple dental caries -Outpatient follow-up Paroxysmal atrial fibrillation -xarelto, metoprolol Continue chronic home medications DVT ppx: xarelto Code status: Full code Anticipated discharge place: Home Anticipated discharge time: Likely tomorrow Objective - Vital Signs Vital signs: Vital Signs Temp 98.5 F 09/10/22 07:00 Pulse 64 09/10/22 11:48 Resp 17 09/10/22 07:00 BP 121/73 09/10/22 07:00 Pulse Ox 95 09/10/22 07:52 FiO2 Intake & Output 09/09/22 09/10/22 09/10/22 18:59 06:59 18:59 Intake Total 500 Balance 500 Weight 195.045 kg 195.045 kg Intake: Oral 500 Other: Voiding Method Urinal # Voids 3 # Bowel Movements 1 - Labs CBC & Chem 7: 09/10/22 05:20 09/10/22 05:20 Labs: Abnormal Lab Results - Last 24 Hours (Table) 09/09/22 09/09/22 09/09/22 Range/Units 17:31 17:31 19:21 RBC 3.95 L (4.30-5.90) m/uL Hgb 9.6 L (13.0-17.5) gm/dL Hct 32.8 L (39.0-53.0) % MCH 24.3 L (25.0-35.0) pg MCHC 29.3 L (31.0-37.0) g/dL RDW 16.7 H (11.5-15.5) % Lymphocytes # 0.6 L (1.0-4.8) k/uL ABG pCO2 77 H* (35-45) mmHg ABG HCO3 48 H* (21-25) mmol/L ABG Total CO2 50 H (19-24) mmol/L ABG O2 Saturation 97.7 H (94-97) % Sodium 136 L (137-145) mmol/L Chloride 84 L (98-107) mmol/L Carbon Dioxide 43 H* (22-30) mmol/L Anion Gap (10.00-18.00) mmol/L BUN 32 H (9-20) mg/dL BUN/Creatinine Ratio (12.00-20.00) Ratio Glucose 118 H (74-99) mg/dL Total Protein 5.8 L (6.3-8.2) g/dL Albumin 3.4 L (3.5-5.0) g/dL Urine Protein (Negative) 09/10/22 09/10/22 09/10/22 Range/Units 05:20 05:20 10:40 RBC 4.11 L (4.30-5.90) m/uL Hgb 9.6 L (13.0-17.5) gm/dL Hct 34.3 L (39.0-53.0) % MCH 23.4 L (25.0-35.0) pg MCHC 28.0 L (31.0-37.0) g/dL RDW 17.1 H (11.5-15.5) % Lymphocytes # (1.0-4.8) k/uL ABG pCO2 (35-45) mmHg ABG HCO3 (21-25) mmol/L ABG Total CO2 (19-24) mmol/L ABG O2 Saturation (94-97) % Sodium (137-145) mmol/L Chloride 88 L (98-107) mmol/L Carbon Dioxide 41.0 H* (22-30) mmol/L Anion Gap 9.00 L (10.00-18.00) mmol/L BUN (9-20) mg/dL BUN/Creatinine Ratio 36.57 H (12.00-20.00) Ratio Glucose 182 H (74-99) mg/dL Total Protein (6.3-8.2) g/dL Albumin (3.5-5.0) g/dL Urine Protein Trace H (Negative)
--- NOTE | 2022-09-10 15:59 | CT ---
EXAMINATION TYPE: CT Panorex CT DLP: 704.5 mGycm, Automated exposure control for dose reduction was used. DATE OF EXAM: 09/10/2022 3:50 PM COMPARISON: None. CLINICAL INDICATION:Male, 61 years old with history of oral evaluation; [facility], TECHNIQUE: Multiple unenhanced axial CT images were obtained of the facial bones soft tissue and bone windows. Panorex was obtained of the teeth. Coronal, axial and sagittal reformatted images were als o provided in soft tissue and bone windows and submitted for interpretation. FINDINGS: There is no evidence of fracture, subluxation, dislocation, or significant soft tissue swelling. The orbital contents are unremarkable. The temporal-mandibular joints appear symmetric. Mild mucosal thic kening of the right sphenoid sinus. The remaining visualized portion of the paranasal sinuses appear clear. Apical lucencies involving the right upper canine left lower second molar. Multiple teeth hav e caries. Including the right upper canine, left upper molars, left upper incisor, bilateral lower mo lars, and right lower molar, and bilateral lower incisors. No periodontal abscess. IMPRESSION: 1. Multiple apical lucencies and caries as described above. 2. No periodontal abscess.
[2022-09-10 17:07] LABS: Glucose,Whole Blood 187 mg/dL (70-110)
[2022-09-10] MEDS: GABAPENTIN 300 MG CAP PO SCH ×2 (17:39→21:51)
[2022-09-10 20:44] LABS: Glucose,Whole Blood 238 mg/dL (70-110)
[2022-09-10 22:10] LABS: Glucose,Whole Blood 212 mg/dL (70-110)
[2022-09-10] MEDS: OLANZapine 10 MG TAB PO SCH (22:26)
[2022-09-11] MEDS: BUMETANIDE 1 MG TAB PO SCH ×2 (05:06→09:03)
[2022-09-11] MEDS: methylPREDNISolone SOD SUCCI 125 MG/2 ML VIAL IV SCH ×4 (05:06→18:01)
[2022-09-11 07:12] LABS: Glucose,Whole Blood 162 mg/dL (70-110)
[2022-09-11] MEDS: IPRATROPIUM-ALBUTEROL 3 ML NEB INHALATION SCH ×3 (08:29→16:48)
[2022-09-11] MEDS: INSULIN ASPART (NovoLOG) 100 UNIT/ML VIAL SQ SCH ×3 (08:30→18:01)
[2022-09-11] MEDS ORDERED: SPIRONOLACTONE 25 MG TAB PO SCH (09:00)
[2022-09-11] MEDS: TAMSULOSIN 0.4 MG CAP.ER.24H PO SCH (09:02)
[2022-09-11] MEDS: allopurinoL 100 MG TAB PO SCH (09:02)
[2022-09-11] MEDS: CHOLECALCIFEROL 25 MCG (1000 IU) TABLET PO SCH (09:02)
[2022-09-11] MEDS: DULoxetine HCL 60 MG CAPSULE.DR PO SCH (09:03)
[2022-09-11] MEDS: RIVAROXABAN 20 MG TAB PO SCH (09:03)
[2022-09-11] MEDS: METOPROLOL TARTRATE 25 MG TAB PO SCH (09:03)
[2022-09-11] MEDS: GABAPENTIN 300 MG CAP PO SCH ×2 (09:03→19:01)
[2022-09-11] MEDS: PANTOPRAZOLE 40 MG TABLET PO SCH ×2 (09:03→19:00)
[2022-09-11] MEDS: oxyCODONE-APAP 10-325MG 1 EACH TAB PO PRN ×2 (09:22→19:03)
[2022-09-11 11:29] LABS: Glucose,Whole Blood 157 mg/dL (70-110)
--- NOTE | 2022-09-11 13:50 | P.DS ---
Providers Date of admission: 09/09/22 20:34 Expected date of discharge: 09/11/22 Attending physician: Alejandra Mak MD Consults: 09/10/22 14:54 Consult Physician Routine Consulting Provider: Julio C Garcia Consult Reason/Comments: oral evaluation Do you want consulting provider notified?: Already Contacted Primary care physician: [facility] Hospital Course: Discharge Diagnosis: Acute on chronic hypoxic and hypercapnic respiratory failure Acute COPD exacerbation Respiratory acidosis with compensatory metabolic alkalosis Dysuria, increased frequency Diastolic heart failure Multiple dental caries Paroxysmal atrial fibrillation Hospital Course: 61-year-old male with history of COPD, chronic hypoxic respiratory failure on 3 L, paroxysmal A. fib and history of PE and DVT on antibiotic regulation, type 2 diabetes, CAD, diastolic CHF, hypertension, dyslipidemia presented with gradual worsening shortness of breath. Labs were significant for pCO2 of 77, pH 7.41, CO2 43, proBNP 570. His chest x-ray demonstrated consolidation and pleural fluid in the right lower lobe unchanged from prior. EKG showed sinus rhythm with no significant ST-T wave changes. Patient was admitted for acute on chronic hypoxic and hypercapnic respiratory failure secondary to acute COPD exacerbation. Patient is being treated with bronchodilators and steroids. Patient also has respiratory acidosis with compensatory metabolic alkalosis. Patient will continue steroids for a total of 5 days. He is also complaining of dysuria, negative UA. Patient has multiple dental caries. CT showed multiple apical lucencies and caries, no periodontal abscess. Patient will have an outpatient follow-up with dentist. Patient seen and examined at bedside. Vital signs reviewed and stable. General: non toxic, no distress, appears older than stated age, morbidly obese Derm: no unusual rashes/lesions, warm Head: atraumatic, normocephalic, symmetric Eyes: EOMI, no lid lag, anicteric sclera, pupils equal round reactive to light ENT: Nose and ears atraumatic Neck: No cervical lymphadenopathy, trachea midline, supple Mouth: no lip lesion, mucus membranes moist, poor dentition Cardiovascular: S1S2 reg, no murmur, positive dorsalis pedis pulse bilateral, 3+ bilateral lower extremity pitting edema to thighs Lungs: CTA bilateral, no rhonchi, no rales, no accessory muscle use Abdominal: soft, nontender to palpation, no guarding Ext: muscle strength 3 out of 5 of bilateral lower extremities, strength 5 out of 5 in bilateral upper extremities, no gross muscle atrophy, no contractures, Neuro: CN II-XI grossly intact, no gross focal neuro deficits Psych: Alert, oriented, appropriate affect A total of 42 minutes of time were spent preparing this complex discharge summary. Patient was discharged on 09/11/22 at 11:52. Patient Condition at Discharge: Stable Plan - Discharge Summary Discharge Rx Participant: Yes New Discharge Prescriptions: New oxyCODONE-APAP 10-325MG [Percocet 10-325 mg] 1 each PO Q8HR PRN 30 Days #90 tab PRN Reason: Pain predniSONE 50 mg PO DAILY #4 tablet Continue Rivaroxaban [Xarelto] 20 mg PO DAILY OLANZapine 20 mg PO HS Omeprazole 20 mg PO BID DULoxetine HCL [Cymbalta] 60 mg PO DAILY Tamsulosin HCl [Flomax] 0.4 mg PO DAILY Bumetanide [BUMEX] 2 mg PO BID Albuterol Sulfate [Ventolin HFA] 1 - 2 puff INHALATION RT-Q6H PRN PRN Reason: Shortness Of Breath buprenorphine HCL [Belbuca] 300 mcg BUCCAL BID 90 Days #180 film Cholecalciferol [Vitamin D3 (25 Mcg = 1000 Iu)] 25 mcg PO DAILY Metoprolol Tartrate [Lopressor] 25 mg PO BID Spironolactone [Aldactone] 25 mg PO DAILY Gabapentin 600 mg PO DIRECTED Tiotropium 2.5 Mcg/Puff [Spiriva Respimat 2.5 Mcg] 2 puff INHALATION RT-DAILY Albuterol Nebulized [Ventolin Nebulized] 2.5 mg INHALATION RT-Q4H PRN PRN Reason: Shortness Of Breath allopurinoL [Zyloprim] 100 mg PO DAILY Changed oxyCODONE HCL/ACETAMINOPHEN [Percocet 10-325 mg] 1 tab PO Q8H PRN 30 Days #90 tab PRN Reason: Pain Discharge Medication List Rivaroxaban [Xarelto] 20 mg PO DAILY 07/14/19 [History] OLANZapine 20 mg PO HS 10/29/20 [History] Omeprazole 20 mg PO BID 03/27/21 [History] DULoxetine HCL [Cymbalta] 60 mg PO DAILY 09/05/21 [History] Albuterol Sulfate [Ventolin HFA] 1 - 2 puff INHALATION RT-Q6H PRN 10/28/21 [History] Bumetanide [BUMEX] 2 mg PO BID 10/28/21 [History] Tamsulosin HCl [Flomax] 0.4 mg PO DAILY 10/28/21 [History] Tiotropium 2.5 Mcg/Puff [Spiriva Respimat 2.5 Mcg] 2 puff INHALATION RT-DAILY 10/28/21 [History] Albuterol Nebulized [Ventolin Nebulized] 2.5 mg INHALATION RT-Q4H PRN 02/25/22 [History] buprenorphine HCL [Belbuca] 300 mcg BUCCAL BID 90 Days #180 film 07/22/22 [Rx] Cholecalciferol [Vitamin D3 (25 Mcg = 1000 Iu)] 25 mcg PO DAILY 09/09/22 [History] Gabapentin 600 mg PO DIRECTED 09/09/22 [History] Metoprolol Tartrate [Lopressor] 25 mg PO BID 09/09/22 [History] Spironolactone [Aldactone] 25 mg PO DAILY 09/09/22 [History] allopurinoL [Zyloprim] 100 mg PO DAILY 09/09/22 [History] oxyCODONE HCL/ACETAMINOPHEN [Percocet 10-325 mg] 1 tab PO Q8H PRN 30 Days #90 tab 09/10/22 [Rx] oxyCODONE-APAP 10-325MG [Percocet 10-325 mg] 1 each PO Q8HR PRN 30 Days #90 tab 09/10/22 [Rx] predniSONE 50 mg PO DAILY #4 tablet 09/11/22 [Rx] Follow up Appointment(s)/Referral(s): [facility],Clinic [Primary Care Provider] - 1-2 days Patient Instructions/Handouts: COPD (Chronic Obstructive Pulmonary Disease) (DC) Activity/Diet/Wound Care/Special Instructions: Please see PCP in 1-2 days Discharge Disposition: HOME WITH HOME HEALTH SERVICES
[2022-09-11 15:11] VITALS: BP 150/65; RESP 16; TEMP 97.6
[2022-09-11 17:00] VITALS: PULSE 81
== END 2022-09-11 19:27 | disposition home health service (06) ==
LOC: EC 16:36 → SUPCPDRO 16:36 → 6NMEDSUR 20:34 → INTOOBSV 20:34 → OBSVTOIN 20:34 → 6NMEDSUR 09-10 01:08 → 4SSUR 09-10 07:47
PROVIDERS: ADMIT Internal Medicine; ATTEND Internal Medicine
DX: J96.21 Acute and chronic respiratory failure with hypoxia (principal); J96.22 Acute and chronic respiratory failure with hypercapnia; J44.1 Chronic obstructive pulmonary disease with (acute) exacerbation; E87.4 Mixed disorder of acid-base balance; R35.0 Frequency of micturition; E11.22 Type 2 diabetes mellitus with diabetic chronic kidney disease; I13.0 Hypertensive heart and chronic kidney disease with heart failure and stage 1 through stage 4 chronic kidney disease, or unspecified chronic kidney disease; I50.32 Chronic diastolic (congestive) heart failure; N18.30 Chronic kidney disease, stage 3 unspecified; K02.9 Dental caries, unspecified; I48.0 Paroxysmal atrial fibrillation; I25.10 Atherosclerotic heart disease of native coronary artery without angina pectoris; E78.5 Hyperlipidemia, unspecified; G47.33 Obstructive sleep apnea (adult) (pediatric); K21.9 Gastro-esophageal reflux disease without esophagitis; E11.40 Type 2 diabetes mellitus with diabetic neuropathy, unspecified; F25.9 Schizoaffective disorder, unspecified; F31.9 Bipolar disorder, unspecified; F41.0 Panic disorder [episodic paroxysmal anxiety]; Z20.822 Contact with and (suspected) exposure to COVID-19; Z74.01 Bed confinement status; Z85.828 Personal history of other malignant neoplasm of skin; Z86.711 Personal history of pulmonary embolism; Z86.718 Personal history of other venous thrombosis and embolism; Z87.891 Personal history of nicotine dependence; Z98.84 Bariatric surgery status; Z99.81 Dependence on supplemental oxygen; Z79.01 Long term (current) use of anticoagulants; Z79.52 Long term (current) use of systemic steroids; Z79.899 Other long term (current) drug therapy; Z88.0 Allergy status to penicillin; Z88.2 Allergy status to sulfonamides; Z88.5 Allergy status to narcotic agent; Z80.1 Family history of malignant neoplasm of trachea, bronchus and lung
CPT/HCPCS: 96372; 96376 ×3; 96374; 99285; 36415; 94640 ×6; 36600; 94760; 93005; 83880; 80053; 80048; 82805; 84484; 85025; 85027; 85610; 85730; 81003; 87502; 87635; 71046; 70486; G0378 ×3; J2930 ×3

== ENCOUNTER → 2022-10-21 | Outpatient (CLI) | payer MEDICARE, BC ==
[2022-10-21 08:28] VITALS: BP 91/56; PULSE 61; RESP 16; TEMP 98.4
--- NOTE | 2022-10-21 08:39 | P.PN ---
Subjective Progress Note Date: 10/21/22 This is follow up visit for this 62 yr old morbidly obese male ,with a history of severe and chronic low back pain secondary to lumbar degenerative disc diseases ,and lumbar spondylosis with facet arthropathy without myelopathy, presents today for medication refills. Pain level is currently at 5/10 in intensity, constant, localized in lower lumbar spine, dull/ achy in character w shooting towards BL hips. Also has constant R ankle pain s/p fracture & repair when he twisted it last month. He has increased R ankle swelling currently. Pain is provoked by weight bearing activity. Pain is alleviated with medications, PT/ OT ( which come to his home), medications, heat, ice, home exercise regimen as tolerated, laying supine and rest. He has difficulty keeping up w PT/OT due to pain and needs an increase in medication to take 1 hr prior to sessions. He has completed R ankle x ray at [facility]. Interventional pain procedures completed include LESI (Could not perform TFESI due to large body mass) Patient is currently on Percocet, Belbuca Patient denies any side effects of the medication(s), denies excessive drowsiness or sleepiness, denies suicidal ideation and reports that the current pain medication is helping to control the pain and improve activities of daily living. Patient denies any motor or sensory deficits. Patient denies any fever or night sweats, denies any change in the bowel movements or urination. Physical Examination: -Constitutional: Cooperative. Not in acute distress . - Neurologic: Cranial nerve II to XII intact. No focal neurological deficits. - Psychatric: Alert & oriented x 3. Matching mood & appropriate affect. Judgment and insight intact. - Musculoskeletal: Cervical spine: Muscle bulk/ tone/ strength in the bilateral upper extremities normal Vertebral body tenderness to palpation over Spurling test positive Distraction test positive Facet loading test positive Thoracic spine Muscle bulk / tone/ strength in the bilateral paraspinal muscles normal Vertebral body tender to palpation over Facet loading test positive Lumbar spine: Motor bulk/ tone/ strength lower extremities , thigh and legs : 5/5 Deep tendon reflexes : Normal Knee Jerk. Normal Ankle Jerk . Vertebral body tenderness to palpation over L3, L4, L5 Lumbar Facet Loading Test positive Straight Leg Raise: positive at 30 degrees right side/ left side Gaenslen's Test positive Assessment and plan: Extremly morbidly obese Chronic low back pain secondary to lumbar degenerative disc disease , lumbar spondylosis with facet arthropathy without myelopathy Recommendation of MRI without contrast of the R ankle re: R22.41 Chronic and current use of high-risk medication (Opioids). The patient was counseled about risk of opioid use, psychological risk associated with opioids and was orally counseled to not overuse , divert or sell medications. Pt is to store medication in a safe location. The patient is counseled against driving while using narcotic medications and also not to use alcohol or any illicit recreational drugs. Patient verbalized understanding that the lack of compliance will result in failure to renew narcotic prescription(s) as well as possible discharge from the clinic Diagnoses, prognosis and treatment options including but not limited to physical therapy, surgical interventions, interventional therapies and medication management including narcotics and adjuvant medication were discussed. All patient questions answered MAPS reviewed and it was appropriate. Prescription refill for Percocet /325mg #90 with one refill , Belbuca w 1 RF Jere follow-up in the pain clinic in 2 months I have spent less than 30 minutes on patient care today. Dr Landaverde was available by phone for the evaluation of this patient. The time was used to review the medical records including relevant urine studies and Prescription history (MAPs), review of the available imaging, evaluation and examination of the patient, coordination of care with the medical staff and if applicable referring physicians, as well as creation of the medical record PQRS Narrative: Smoking Status Former smoker Narcotic Agreement Date Signed 03/11/22 Hx Alcohol Use (MH) No Home Medications: Ambulatory Orders Rivaroxaban [Xarelto] 20 mg PO DAILY 07/14/19 OLANZapine 20 mg PO HS 10/29/20 Omeprazole 20 mg PO DAILY 03/27/21 DULoxetine HCL [Cymbalta] 60 mg PO DAILY 09/05/21 Diltiazem Oral [Cardizem*] 30 mg PO TID tab 09/16/21 Gabapentin 600 mg PO TID #6 tab 09/16/21 Albuterol Sulfate [Ventolin HFA] 1 - 2 puff INHALATION RT-Q6H PRN 10/28/21 Bumetanide [BUMEX] 2 mg PO BID 10/28/21 Potassium Chloride [Klor-Con 20] 10 meq PO BID 10/28/21 Tamsulosin HCl [Flomax] 0.4 mg PO DAILY 10/28/21 Tiotropium 2.5 Mcg/Puff [Spiriva Respimat 2.5 Mcg] 2 puff INHALATION RT-DAILY 10/28/21 Albuterol Nebulized [Ventolin Nebulized] 2.5 mg INHALATION Q8H 02/25/22 Lactulose 10 gm PO DAILY 02/25/22 buprenorphine HCL [Belbuca] 300 mcg BUCCAL DAILY 30 Days #30 film 07/13/22 oxyCODONE HCL/ACETAMINOPHEN [Percocet 10-325 mg] 1 tab PO Q8HR PRN 30 Days #90 tab 07/13/22 oxyCODONE HCL/ACETAMINOPHEN [Percocet 10-325 mg] 1 tab PO Q8HR PRN 30 Days #90 tab 07/13/22 oxyCODONE HCL/ACETAMINOPHEN [Percocet 10-325 mg Tablet] 1 each PO Q8H PRN 30 Days #90 tab 07/15/22 oxyCODONE HCL/ACETAMINOPHEN [Percocet 10-325 mg] 1 tab PO Q8HR PRN 30 Days #90 tab 07/15/22 buprenorphine HCL [Belbuca] 300 mcg BUCCAL BID 90 Days #180 film 07/22/22 Controlled Substance Measures - Controlled Substance Measures Is patient prescribed a controlled substance at discharge?: Yes When asked, does pt state using other controlled substances?: No If prescribed controlled substance>3 days was MAPS reviewed?: Yes If Rx opioid, was Start Talking consent form obtained?: Yes Was information provided regarding opioid addiction?: Yes Objective - Vital Signs Vital signs: Vital Signs Temp 98.4 F 10/21/22 08:19 Pulse 61 10/21/22 08:19 Resp 16 10/21/22 08:19 BP 91/56 10/21/22 08:19 Pulse Ox 96 10/21/22 08:19 FiO2 Intake & Output 10/20/22 10/21/22 10/21/22 18:59 06:59 18:59 Weight 208.652 kg
== END | disposition home or self-care (01) ==
LOC: PNWHC3 07:56
PROVIDERS: ATTEND Specialist
DX: M51.36 Other intervertebral disc degeneration, lumbar region (principal); M47.896 Other spondylosis, lumbar region; M46.96 Unspecified inflammatory spondylopathy, lumbar region
CPT/HCPCS: 99211

== ENCOUNTER 2023-03-17 18:07 | Emergency (ER) | payer MEDICARE, BC ==
[2023-03-17 18:24] VITALS: BP 119/65; TEMP 98.5
--- NOTE | 2023-03-17 18:58 | XR ---
EXAMINATION TYPE: XR chest 1V portable DATE OF EXAM: 03/17/2023 6:51 PM COMPARISON: Chest radiographs from 09/09/2022 TECHNIQUE: XR chest 1V portable Frontal view of the chest. CLINICAL INDICATION:Male, 62 years old with history of dyspnea; FINDINGS: Lungs/Pleura: Moderate right pleural effusion is present with associated atelectasis. Pulmonary vascularity: Unremarkable. Heart/mediastinum: Cardiomediastinal silhouette is partially obscured due to overlying and adjacent o pacities. Musculoskeletal: No acute osseous pathology. IMPRESSION: Moderate right pleural effusion with associated atelectasis. Not significantly changed from prior.
[2023-03-17 20:01] LABS: INR 1.1 (<1.2); Partial Thromboplastin Time 25.6 sec (22.0-30.0); Prothrombin Time 11.5 sec (9.0-12.0)
[2023-03-17 20:05] LABS: ALT 21 U/L (4-49); AST 20 U/L (17-59); African American GFR (CKD) >90 (>60 ml/min/1.73 sqM); Albumin 3.3 g/dL (3.5-5.0); Alkaline Phosphatase 83 U/L (38-126); Blood Urea Nitrogen 34 mg/dL (9-20); Calcium 8.3 mg/dL (8.4-10.2); Chloride 87 mmol/L (98-107); Glucose 136 mg/dL (74-99); Magnesium 2.1 mg/dL (1.6-2.3); Non-African American GFR(CKD) >90 (>60 ml/min/1.73 sqM); Potassium 4.7 mmol/L (3.5-5.1); Sodium 135 mmol/L (137-145); Total Bilirubin 0.4 mg/dL (0.2-1.3); Total Protein 5.7 g/dL (6.3-8.2)
[2023-03-17 20:11] LABS: Anion Gap 2 mmol/L
[2023-03-17 20:19] LABS: Anisocytosis Slight; Basophils % (A) 0 %; Eosinophils % (A) 0 %; HCT 33.7 % (39.0-53.0); HGB 10.7 gm/dL (13.0-17.5); Hypochromasia Moderate; Lymphocytes # (A) 0.3 k/uL (1.0-4.8); Lymphocytes % (A) 5 %; MCH 27.2 pg (25.0-35.0); MCHC 31.8 g/dL (31.0-37.0); MCV 85.7 fL (80.0-100.0); Mean Platelet Volume 8.1; Monocytes # (A) 0.4 k/uL (0-1.0); Monocytes % (A) 7 %; Neutrophils # (A) 5.6 k/uL (1.3-7.7); Neutrophils % (A) 86 %; Platelet Count 228 k/uL (150-450); RBC 3.93 m/uL (4.30-5.90); RDW 16.4 % (11.5-15.5); WBC 6.5 k/uL (3.8-10.6)
[2023-03-17] MEDS ORDERED: ALBUTEROL NEBULIZED 2.5 MG/3 ML INHALATION STA (20:33)
[2023-03-17 20:35] LABS: Carbon Dioxide 46 mmol/L (22-30)
[2023-03-17 20:49] VITALS: PULSE 76; RESP 16
[2023-03-17 21:43] LABS: VBG PH 7.39 (7.31-7.41)
--- NOTE | 2023-03-17 22:08 | ED ---
SOB HPI - General Chief Complaint: Shortness of Breath Stated Complaint: sob Time Seen by Provider: 03/17/23 18:15 Source: patient Mode of arrival: EMS Limitations: physical limitation - History of Present Illness Initial Comments: This patient is a 62-year-old man brought from home to have evaluation of his breathing. The patient was concerned because she has a pleural effusion and was worried that it may be getting worse. The patient does use home CPAP when he sleeps, otherwise has oxygen available. He sees editor sound, Dr. Fernández, and he had been admitted at [facility] last week. The patient has not noted fevers. There is no productive cough. No change in urination or bowel movements. No leg pain or swelling, beyond what is at his baseline. MD Complaint: shortness of breath Onset/Timin -: week(s) Severity scale (1-10): 0 Consistency: constant Improves With: oxygen Worsens With: lying flat Known History Of: congestive heart failure, other (Lung disease) Treatments Prior to Arrival: oxygen - Related Data Home Medications Medication Instructions Recorded Confirmed Rivaroxaban [Xarelto] 20 mg PO HS 07/14/19 03/17/23 OLANZapine 20 mg PO HS 10/29/20 03/17/23 Omeprazole 20 mg PO AC-BID 03/27/21 03/17/23 DULoxetine HCL [Cymbalta] 60 mg PO DAILY 09/05/21 03/17/23 Albuterol Sulfate [Ventolin HFA] 1 - 2 puff INHALATION RT-Q6H PRN 10/28/21 03/17/23 Tamsulosin HCl [Flomax] 0.4 mg PO DAILY 10/28/21 03/17/23 Tiotropium 2.5 Mcg/Puff [Spiriva 2 puff INHALATION RT-DAILY 10/28/21 03/17/23 Respimat 2.5 Mcg] Albuterol Nebulized [Ventolin 2.5 mg INHALATION RT-Q4H PRN 02/25/22 03/17/23 Nebulized] Cholecalciferol [Vitamin D3 (25 25 mcg PO DAILY 09/09/22 03/17/23 Mcg = 1000 Iu)] Metoprolol Tartrate [Lopressor] 25 mg PO BID 09/09/22 03/17/23 Spironolactone [Aldactone] 25 mg PO DAILY 09/09/22 03/17/23 allopurinoL [Zyloprim] 100 mg PO DAILY 09/09/22 03/17/23 Budesonide [Pulmicort] 0.5 mg INHALATION RT-BID 03/17/23 03/17/23 Bumetanide [Bumex] 1 mg PO BID@0800,1600 03/17/23 03/17/23 Docusate [Colace] 100 mg PO DAILY PRN 03/17/23 03/17/23 Gabapentin 600 mg PO BID 03/17/23 03/17/23 Ipratropium-Albuterol Nebulize 3 ml INHALATION RT-QID 03/17/23 03/17/23 [Duoneb 0.5 mg-3 mg/3 ml Soln] Potassium Chloride ER [K-Dur 20] 20 meq PO BID@0900,1600 03/17/23 03/17/23 oxyCODONE-APAP 10-325MG [Percocet 1 tab PO Q6H PRN 03/17/23 03/17/23 10-325 mg] Allergies Allergy/AdvReac Type Severity Reaction Status Date / Time codeine Allergy Severe Swelling Verified 03/17/23 19:03 OF THROAT WITH COUGH SYRUP chlorpheniramine Allergy Unknown Verified 03/17/23 19:03 febuxostat [From Uloric] Allergy Unknown Verified 03/17/23 19:03 phenylephrine Allergy Unknown Verified 03/17/23 19:03 piperacillin sodium Allergy Unknown Verified 03/17/23 19:03 [From Zosyn] sulfamethoxazole Allergy Unknown Verified 03/17/23 19:03 [From Bactrim] tazobactam sodium Allergy Unknown Verified 03/17/23 19:03 [From Zosyn] trimethoprim [From Bactrim] Allergy Unknown Verified 03/17/23 19:03 buspirone [From BuSpar] AdvReac Rapid Verified 03/17/23 19:03 Heart Rate Review of Systems ROS Statement: Those systems with pertinent positive or pertinent negative responses have been documented in the HPI. ROS Other: All systems not noted in ROS Statement are negative. Constitutional: Denies: fever, chills Respiratory: Reports: dyspnea. Denies: hemoptysis Cardiovascular: Reports: orthopnea, edema. Denies: chest pain Endocrine: Reports: fatigue Gastrointestinal: Denies: abdominal pain, vomiting, diarrhea Genitourinary: Denies: dysuria Musculoskeletal: Reports: back pain (Chronic) Skin: Denies: rash Neurological: Denies: headache, weakness Past Medical History Past Medical History: Atrial Fibrillation, Asthma, Cancer, Heart Failure, COPD, Deep Vein Thrombosis (DVT), GERD/Reflux, GI Bleed, Hyperlipidemia, Hypertension, Osteoarthritis (OA), Pneumonia, Pulmonary Embolus (PE), Renal Disease, Respiratory Disorder, Sleep Apnea/CPAP/BIPAP Additional Past Medical History / Comment(s): +Covid 1--22, hx chronic CHF/abnormal ECHO-see report/paroxysmal afib/bilat pleural effusions w/ R sided thoracentesis. hypoglycemia. BLE neuropathy, colitis, chronic generalized pain, fluid retention, bedbound, hiatal hernia, DDD, scoliosis, ALEXIS w/ CPAP, CKD stage III, pseudoseizures - none in 1 year, basal cell skin cancer, BLE edema, uses O2@2.5 L NC History of Any Multi-Drug Resistant Organisms: MRSA Date of last positivie culture/infection: MRSA 09/05/21 MDRO Source:: LEG Past Surgical History: Appendectomy, Bariatric Surgery, Cholecystectomy, Heart Catheterization, Hernia Repair, Joint Replacement, Orthopedic Surgery Additional Past Surgical History / Comment(s): Gastric sleeve 2014, L inguinal hernia repair, R elbow surgery x2, total R hip arthroplasty, L knee arthroscopy/ACL surgery, R ankle ORIF, EGD, colonoscopy, basal cell skin cancer exc face, surgery for varicele,lt knee arthroscopy x2 Past Anesthesia/Blood Transfusion Reactions: Previous Problems w/ Anesthesia Additional Past Anesthesia/Blood Transfusion Reaction / Comment(s): STATES WAS TOLD HE WAS A DIFFICULT INTUBATION WITH GASTRIC SLEEVE SURGERY, no problems with gallbladder surgery after gastric sleeve surgery in Aug 2021 Past Psychological History: Anxiety, Bipolar, Depression, Panic Disorder, Schizoaffective Disorder Smoking Status: Former smoker - Past Family History Father Family Medical History: Cancer Additional Family Medical History / Comment(s): LUNG CA Mother Family Medical History: Coronary Artery Disease (CAD) Additional Family Medical History / Comment(s): Mother of an infection. General Exam Limitations: physical limitation General appearance: alert, in no apparent distress Head exam: Present: atraumatic, normocephalic Eye exam: Present: normal appearance. Absent: scleral icterus, conjunctival injection Neck exam: Present: normal inspection Respiratory exam: Present: wheezes, decreased breath sounds (Right base). Absent: respiratory distress, rales, rhonchi, stridor Cardiovascular Exam: Present: regular rate, normal rhythm, normal heart sounds GI/Abdominal exam: Present: soft. Absent: distended, tenderness, guarding, rebound, rigid, mass Extremities exam: Present: normal inspection, normal capillary refill, pedal edema. Absent: calf tenderness Back exam: Present: normal inspection. Absent: CVA tenderness (R), CVA tenderness (L) Neurological exam: Present: alert Skin exam: Present: warm, dry, intact, normal color. Absent: rash Course Vital Signs 03/17/23 03/17/23 03/17/23 18:18 18:20 18:24 Temperature 98.5 F Pulse Rate 91 Respiratory 19 18 Rate Blood Pressure 119/65 O2 Sat by Pulse 96 96 Oximetry 03/17/23 03/17/23 03/17/23 20:00 20:39 20:49 Temperature Pulse Rate 89 74 76 Respiratory 16 Rate Blood Pressure 119/65 O2 Sat by Pulse 98 Oximetry Medical Decision Making - Medical Decision Making This patient is 62-year-old man with history of chronic lung disease presenting to have reevaluation with concerns about whether his right-sided pleural effusion was increasing. Evaluation here includes chest x-ray which I interpreted as showing the chronic right-sided pleural effusion, no new infiltrate, or pneumothorax observed. Review of previous films and review of radiology notes reveals that this condition appears unchanged. The patient's workup here does not reveal any acute condition and he was observ ed with comfortable respiratory pattern and vital signs are stable. Venous blood gas confirms that the patient does have some hyper Him but this appears chronic as pH is normal, and patient remains alert and appropriate. At this point patient stable for discharge with follow-up with his editor sound. Discussed further care and appropriate return parameters Was pt. sent in by a medical professional or institution (EMEKA Pacheco, ANIMAL ANATOMIST, urgent care, hospital, or intermediate...) When possible be specific @ -[No] Did you speak to anyone other than the patient for history (EMS, parent, family, police, friend...)? What history was obtained from this source @ -[No] Did you review nursing and triage notes (agree or disagree)? Why? @ -[I reviewed and agree with nursing and triage notes] Were old charts reviewed (outside hosp., previous admission, EMS record, old EKG, old radiological studies, urgent care reports/EKG's, intermediate records)? Report findings @ -[old charts were reviewed for x-ray and lab results Differential Diagnosis (chest pain, altered mental status, abdominal pain women, abdominal pain men, vaginal bleeding, weakness, fever, dyspnea, syncope, headache, dizziness, GI bleed, back pain, seizure, CVA, palpatations, mental health, musculoskeletal)? @ -[Differential Dyspnea: Coronary syndrome, arrhythmia, tamponade, asthma, COPD, pulmonary embolism, pneumonia, pneumothorax, pulmonary effusion, anaphylaxis, diabetic ketoacidosis, flailed chest, pulmonary contusion, diaphragmatic rupture, anemia, neuromuscular, this is not meant to be an all-inclusive list. EKG interpreted by me (3pts min.). @ -[As above] X-rays interpreted by me (1pt min.). @ -[As above CT interpreted by me (1pt min.). @ -[None done] U/S interpreted by me (1pt. min.). @ -[None done] What testing was considered but not performed or refused? (CT, X-rays, U/S, labs)? Why? @ -[None] What meds were considered but not given or refused? Why? @ -[None] Did you discuss the management of the patient with other professionals (professionals i.e. , PA, ANIMAL ANATOMIST, lab, RT, psych nurse, drug abuse social worker, cougar hunter, teacher, surveillance dual rate officer, hospice case manager)? Give summary @ -[No] Was smoking cessation discussed for >3mins.? @ -[No] Was critical care preformed (if so, how long)? @ -[No] Were there social determinants of health that impacted care today? How? (Homel essness, low income, unemployed, alcoholism, drug addiction, transportation, low edu. Level, literacy, decrease access to med. care, longterm, rehab)? @ -[No] Was there de-escalation of care discussed even if they declined (Discuss DNR or withdrawal of care, Hospice)? DNR status @ -[No] What co-morbidities impacted this encounter? (DM, HTN, Smoking, COPD, CAD, Cancer, CVA, ARF, Chemo, Hep., AIDS, mental health diagnosis, sleep apnea, morbid obesity)? @ -[None] Was patient admitted / discharged? Hospital course, mention meds given and route, prescriptions, significant lab abnormalities, going to OR and other pertinent info. @ -[Discharged Undiagnosed new problem with uncertain prognosis? @ -[No] Drug Therapy requiring intensive monitoring for toxicity (Heparin, Nitro, Insulin, Cardizem)? @ -[No] Were any procedures done? @ -[No] Diagnosis/symptom? @ -[default] Acute, or Chronic, or Acute on Chronic? @ -[Chronic lung disease, Chronic congestive heart failure Uncomplicated (without systemic symptoms) or Complicated (systemic symptoms)? @ -[Uncomplicated Side effects of treatment? @ -[No] Exacerbation, Progression, or Severe Exacerbation? @ -[No] Poses a threat to life or bodily function? How? (Chest pain, USA, AR, pneumonia, PE, COPD, DKA, ARF, appy, cholecystitis, CVA, Diverticulitis, Homicidal, Suicidal, threat to staff... and all critical care pts) @ -[No] - Lab Data Result diagrams: 03/17/23 18:39 03/17/23 18:39 Lab Results 03/17/23 03/17/23 03/17/23 Range/Units 18:39 18:39 18:39 WBC 6.5 (3.8-10.6) k/uL RBC 3.93 L (4.30-5.90) m/uL Hgb 10.7 L (13.0-17.5) gm/dL Hct 33.7 L (39.0-53.0) % MCV 85.7 (80.0-100.0) fL MCH 27.2 (25.0-35.0) pg MCHC 31.8 (31.0-37.0) g/dL RDW 16.4 H (11.5-15.5) % Plt Count 228 (150-450) k/uL MPV 8.1 Neutrophils % 86 % Lymphocytes % 5 % Monocytes % 7 % Eosinophils % 0 % Basophils % 0 % Neutrophils # 5.6 (1.3-7.7) k/uL Lymphocytes # 0.3 L (1.0-4.8) k/uL Monocytes # 0.4 (0-1.0) k/uL Eosinophils # 0.0 (0-0.7) k/uL Basophils # 0.0 (0-0.2) k/uL Hypochromasia Moderate Anisocytosis Slight PT 11.5 (9.0-12.0) sec INR 1.1 (<1.2) APTT 25.6 (22.0-30.0) sec D-Dimer 0.65 H (<0.60) mg/L FEU VBG pH (7.31-7.41) VBG pCO2 (37-51) mmHg VBG HCO3 (24-28) mmol/L Sodium 135 L (137-145) mmol/L Potassium 4.7 (3.5-5.1) mmol/L Chloride 87 L (98-107) mmol/L Carbon Dioxide 46 H* (22-30) mmol/L Anion Gap 2 mmol/L BUN 34 H (9-20) mg/dL Creatinine 0.60 L (0.66-1.25) mg/dL Est GFR (CKD-EPI)AfAm >90 (>60 ml/min/1.73 sqM) Est GFR (CKD-EPI)NonAf >90 (>60 ml/min/1.73 sqM) Glucose 136 H (74-99) mg/dL Plasma Lactic Acid Benjie (0.7-2.0) mmol/L Calcium 8.3 L (8.4-10.2) mg/dL Magnesium 2.1 (1.6-2.3) mg/dL Total Bilirubin 0.4 (0.2-1.3) mg/dL AST 20 (17-59) U/L ALT 21 (4-49) U/L Alkaline Phosphatase 83 (38-126) U/L Troponin I (0.000-0.034) ng/mL NT-Pro-B Natriuret Pep pg/mL Total Protein 5.7 L (6.3-8.2) g/dL Albumin 3.3 L (3.5-5.0) g/dL 03/17/23 03/17/23 03/17/23 Range/Units 18:39 18:39 18:39 WBC (3.8-10.6) k/uL RBC (4.30-5.90) m/uL Hgb (13.0-17.5) gm/dL Hct (39.0-53.0) % MCV (80.0-100.0) fL MCH (25.0-35.0) pg MCHC (31.0-37.0) g/dL RDW (11.5-15.5) % Plt Count (150-450) k/uL MPV Neutrophils % % Lymphocytes % % Monocytes % % Eosinophils % % Basophils % % Neutrophils # (1.3-7.7) k/uL Lymphocytes # (1.0-4.8) k/uL Monocytes # (0-1.0) k/uL Eosinophils # (0-0.7) k/uL Basophils # (0-0.2) k/uL Hypochromasia Anisocytosis PT (9.0-12.0) sec INR (<1.2) APTT (22.0-30.0) sec D-Dimer (<0.60) mg/L FEU VBG pH (7.31-7.41) VBG pCO2 (37-51) mmHg VBG HCO3 (24-28) mmol/L Sodium (137-145) mmol/L Potassium (3.5-5.1) mmol/L Chloride (98-107) mmol/L Carbon Dioxide (22-30) mmol/L Anion Gap mmol/L BUN (9-20) mg/dL Creatinine (0.66-1.25) mg/dL Est GFR (CKD-EPI)AfAm (>60 ml/min/1.73 sqM) Est GFR (CKD-EPI)NonAf (>60 ml/min/1.73 sqM) Glucose (74-99) mg/dL Plasma Lactic Acid Benjie 1.6 (0.7-2.0) mmol/L Calcium (8.4-10.2) mg/dL Magnesium (1.6-2.3) mg/dL Total Bilirubin (0.2-1.3) mg/dL AST (17-59) U/L ALT (4-49) U/L Alkaline Phosphatase (38-126) U/L Troponin I <0.012 (0.000-0.034) ng/mL NT-Pro-B Natriuret Pep 743 pg/mL Total Protein (6.3-8.2) g/dL Albumin (3.5-5.0) g/dL 03/17/23 Range/Units 21:28 WBC (3.8-10.6) k/uL RBC (4.30-5.90) m/uL Hgb (13.0-17.5) gm/dL Hct (39.0-53.0) % MCV (80.0-100.0) fL MCH (25.0-35.0) pg MCHC (31.0-37.0) g/dL RDW (11.5-15.5) % Plt Count (150-450) k/uL MPV Neutrophils % % Lymphocytes % % Monocytes % % Eosinophils % % Basophils % % Neutrophils # (1.3-7.7) k/uL Lymphocytes # (1.0-4.8) k/uL Monocytes # (0-1.0) k/uL Eosinophils # (0-0.7) k/uL Basophils # (0-0.2) k/uL Hypochromasia Anisocytosis PT (9.0-12.0) sec INR (<1.2) APTT (22.0-30.0) sec D-Dimer (<0.60) mg/L FEU VBG pH 7.39 (7.31-7.41) VBG pCO2 76 H* (37-51) mmHg VBG HCO3 45 H (24-28) mmol/L Sodium (137-145) mmol/L Potassium (3.5-5.1) mmol/L Chloride (98-107) mmol/L Carbon Dioxide (22-30) mmol/L Anion Gap mmol/L BUN (9-20) mg/dL Creatinine (0.66-1.25) mg/dL Est GFR (CKD-EPI)AfAm (>60 ml/min/1.73 sqM) Est GFR (CKD-EPI)NonAf (>60 ml/min/1.73 sqM) Glucose (74-99) mg/dL Plasma Lactic Acid Benjie (0.7-2.0) mmol/L Calcium (8.4-10.2) mg/dL Magnesium (1.6-2.3) mg/dL Total Bilirubin (0.2-1.3) mg/dL AST (17-59) U/L ALT (4-49) U/L Alkaline Phosphatase (38-126) U/L Troponin I (0.000-0.034) ng/mL NT-Pro-B Natriuret Pep pg/mL Total Protein (6.3-8.2) g/dL Albumin (3.5-5.0) g/dL Disposition Clinical Impression: Pleural effusion, COPD (chronic obstructive pulmonary disease) Disposition: HOME SELF-CARE Condition: Fair Instructions (If sedation given, give patient instructions): Pleural Effusion (DC) Is patient prescribed a controlled substance at d/c from ED?: No Referrals: Antelmo Crenshaw MD [Primary Care Provider] - 1-2 days
== END 2023-03-17 22:37 | disposition home or self-care (01) ==
LOC: EC 18:07
DX: J44.9 Chronic obstructive pulmonary disease, unspecified (principal); J90 Pleural effusion, not elsewhere classified; I13.0 Hypertensive heart and chronic kidney disease with heart failure and stage 1 through stage 4 chronic kidney disease, or unspecified chronic kidney disease; I50.9 Heart failure, unspecified; N18.30 Chronic kidney disease, stage 3 unspecified; I48.0 Paroxysmal atrial fibrillation; K21.9 Gastro-esophageal reflux disease without esophagitis; M19.90 Unspecified osteoarthritis, unspecified site; E78.5 Hyperlipidemia, unspecified; F31.9 Bipolar disorder, unspecified; F25.9 Schizoaffective disorder, unspecified; Z79.01 Long term (current) use of anticoagulants; Z79.51 Long term (current) use of inhaled steroids; Z79.899 Other long term (current) drug therapy; Z86.711 Personal history of pulmonary embolism; Z86.718 Personal history of other venous thrombosis and embolism; Z87.891 Personal history of nicotine dependence; Z88.1 Allergy status to other antibiotic agents; Z88.2 Allergy status to sulfonamides; Z88.5 Allergy status to narcotic agent; Z88.8 Allergy status to other drugs, medicaments and biological substances; Z86.16 Personal history of COVID-19; Z90.49 Acquired absence of other specified parts of digestive tract; Z98.84 Bariatric surgery status
CPT/HCPCS: 36415; 71045; 80053; 82803; 83605; 83735; 83880; 84484; 85025; 85379; 85610; 85730; 94640; 99285

== ENCOUNTER 2023-05-21 13:51 | Inpatient (IN) | payer MEDICARE, BC ==
[2023-05-21] MEDS ORDERED: ACETAMINOPHEN IV (For NPO) 1,000 MG in EMPTY BAG 1 BAG IVPB STA (13:58)
--- NOTE | 2023-05-21 14:03 | ED ---
General Adult HPI - General Stated complaint: AMS Time Seen by Provider: 05/21/23 13:56 Source: patient, EMS, RN notes reviewed Mode of arrival: EMS Limitations: no limitations - History of Present Illness Initial comments: Patient is a pleasant [age]-year-old male presenting to the emergency department by EMS for altered mental status. Patient is somewhat a poor historian. Patient denies any complaints. Patient states he is doing fine however does admit to feeling a little bit weak when specifically questioned. He should denies fevers. Patient unclear if he is eating and drinking well or not. - Related Data Home Medications Medication Instructions Recorded Confirmed Rivaroxaban [Xarelto] 20 mg PO HS 07/14/19 05/03/23 OLANZapine 20 mg PO HS 10/29/20 05/03/23 Omeprazole 20 mg PO AC-BID 03/27/21 05/03/23 DULoxetine HCL [Cymbalta] 60 mg PO DAILY 09/05/21 05/03/23 Albuterol Sulfate [Ventolin HFA] 1 - 2 puff INHALATION RT-Q6H PRN 10/28/21 05/03/23 Tamsulosin HCl [Flomax] 0.4 mg PO DAILY 10/28/21 05/03/23 Tiotropium 2.5 Mcg/Puff [Spiriva 2 puff INHALATION RT-DAILY 10/28/21 05/03/23 Respimat 2.5 Mcg] Albuterol Nebulized [Ventolin 2.5 mg INHALATION RT-Q4H PRN 02/25/22 05/03/23 Nebulized] Cholecalciferol [Vitamin D3 (25 25 mcg PO DAILY 09/09/22 05/03/23 Mcg = 1000 Iu)] Metoprolol Tartrate [Lopressor] 25 mg PO BID 09/09/22 05/03/23 Spironolactone [Aldactone] 25 mg PO DAILY 09/09/22 05/03/23 allopurinoL [Zyloprim] 100 mg PO DAILY 09/09/22 05/03/23 Budesonide [Pulmicort] 0.5 mg INHALATION RT-BID 03/17/23 05/03/23 Bumetanide [Bumex] 1 mg PO BID@0800,1600 03/17/23 05/03/23 Docusate [Colace] 100 mg PO DAILY PRN 03/17/23 05/03/23 Gabapentin 600 mg PO TID 03/17/23 05/03/23 Ipratropium-Albuterol Nebulize 3 ml INHALATION RT-QID 03/17/23 05/03/23 [Duoneb 0.5 mg-3 mg/3 ml Soln] Potassium Chloride ER [K-Dur 20] 20 meq PO BID@0900,1600 03/17/23 05/03/23 oxyCODONE-APAP 10-325MG [Percocet 1 tab PO Q6H PRN 03/17/23 05/03/23 10-325 mg] Allergies Allergy/AdvReac Type Severity Reaction Status Date / Time codeine Allergy Severe Swelling Verified 05/21/23 14:02 OF THROAT WITH COUGH SYRUP allopurinol Allergy Unknown Verified 05/21/23 14:02 chlorpheniramine Allergy Unknown Verified 05/21/23 14:02 febuxostat [From Uloric] Allergy Unknown Verified 05/21/23 14:02 phenylephrine Allergy Unknown Verified 05/21/23 14:02 piperacillin sodium Allergy Unknown Verified 05/21/23 14:02 [From Zosyn] sulfamethoxazole Allergy Unknown Verified 05/21/23 14:02 [From Bactrim] tazobactam sodium Allergy Unknown Verified 05/21/23 14:02 [From Zosyn] trimethoprim [From Bactrim] Allergy Unknown Verified 05/21/23 14:02 buspirone [From BuSpar] AdvReac Rapid Verified 05/21/23 14:02 Heart Rate Review of Systems ROS Statement: Those systems with pertinent positive or pertinent negative responses have been documented in the HPI. ROS Other: All systems not noted in ROS Statement are negative. Constitutional: Denies: fever Eyes: Denies: eye pain ENT: Denies: ear pain Respiratory: Denies: cough Cardiovascular: Denies: chest pain Endocrine: Reports: fatigue Gastrointestinal: Denies: abdominal pain Genitourinary: Denies: dysuria Musculoskeletal: Denies: back pain Skin: Denies: rash Neurological: Denies: headache Past Medical History Past Medical History: Atrial Fibrillation, Asthma, Cancer, Heart Failure, COPD, Deep Vein Thrombosis (DVT), GERD/Reflux, GI Bleed, Hyperlipidemia, Hypertension, Osteoarthritis (OA), Pneumonia, Pulmonary Embolus (PE), Renal Disease, Respiratory Disorder, Sleep Apnea/CPAP/BIPAP Additional Past Medical History / Comment(s): +Covid 12-04- and early 2022, hx chronic CHF/abnormal ECHO-see report/paroxysmal afib/bilat pleural effusions w/ R sided thoracentesis. hypoglycemia. BLE neuropathy, colitis, chronic generalized pain, fluid retention, bedbound, hiatal hernia, DDD, scoliosis, ALEXIS w/ CPAP, CKD stage III, pseudoseizures - none in 1 year, basal cell skin cancer, BLE edema, CPAP and uses Home O2 24/, SOB. History of Any Multi-Drug Resistant Organisms: MRSA Date of last positivie culture/infection: MRSA 09/05/21 MDRO Source:: LEG Past Surgical History: Appendectomy, Bariatric Surgery, Cholecystectomy, Heart Catheterization, Hernia Repair, Joint Replacement, Orthopedic Surgery Additional Past Surgical History / Comment(s): Gastric sleeve 2013, L inguinal hernia repair, R elbow surgery x2, total R hip arthroplasty, L knee arthroscopy/ACL surgery, R ankle ORIF, EGD, colonoscopy, basal cell skin cancer exc face, surgery for varicele,lt knee arthroscopy x2. Past Anesthesia/Blood Transfusion Reactions: Previous Problems w/ Anesthesia Additional Past Anesthesia/Blood Transfusion Reaction / Comment(s): STATES WAS TOLD HE WAS A DIFFICULT INTUBATION WITH GASTRIC SLEEVE SURGERY, no problems with gallbladder surgery after gastric sleeve surgery in Aug 2021 Past Psychological History: Anxiety, Bipolar, Depression, Panic Disorder, Schizo affective Disorder Smoking Status: Former smoker Past Alcohol Use History: None Reported Past Drug Use History: None Reported - Past Family History Father Family Medical History: Cancer Additional Family Medical History / Comment(s): LUNG CA Mother Family Medical History: Coronary Artery Disease (CAD) Additional Family Medical History / Comment(s): Mother of an infection. General Exam Limitations: no limitations General appearance: alert, in no apparent distress Head exam: Present: atraumatic, normocephalic Eye exam: Present: normal appearance, PERRL, EOMI ENT exam: Present: mucous membranes dry Neck exam: Present: normal inspection Respiratory exam: Present: normal lung sounds bilaterally Cardiovascular Exam: Present: regular rate, normal rhythm GI/Abdominal exam: Present: soft. Absent: distended, tenderness Extremities exam: Present: pedal edema Neurological exam: Present: alert, oriented X3, CN II-XII intact, other (Patient does have some asterixis and flopping of his limbs while talking. Patient does lean towards right which is reported as normal per EMS.). Absent: motor sensory deficit Psychiatric exam: Present: flat affect Skin exam: Present: normal color Course Vital Signs 05/21/23 05/21/23 05/21/23 13:57 14:58 15:11 Temperature 100.4 F H Pulse Rate 85 82 82 Respiratory 19 Rate Blood Pressure 100/45 O2 Sat by Pulse 92 L Oximetry Fraction of Inspired Oxygen (FIO2) 05/21/23 05/21/23 05/21/23 15:16 15:43 16:04 Temperature Pulse Rate 87 72 Respiratory 20 20 Rate Blood Pressure 92/78 93/51 O2 Sat by Pulse 95 100 Oximetry Fraction of 60 Inspired Oxygen (FIO2) - Reevaluation(s) Reevaluation #1: 05/21/23 16:21 Patient has evidence of pneumonia without sepsis criteria at this time. Blood culture and lactic acid are been ordered and IV antibiotics have been ordered EKG Findings - EKG Results: EKG: interpreted by ERMD (Left axis. Right bundle branch block.), sinus rhythm, normal ST/T Medical Decision Making - Medical Decision Making Was pt. sent in by a medical professional or institution (, PA, CORD MAKER, urgent care, hospital, or half-way...) When possible be specific @ -Patient sent from nursing facility Did you speak to anyone other than the patient for history (EMS, parent, family, police, friend...)? What history was obtained from this source @ -EMS provided history as patient is a poor historian and offers little histo ry Did you review nursing and triage notes (agree or disagree)? Why? @ -I reviewed and agree with nursing and triage notes Were old charts reviewed (outside hosp., previous admission, EMS record, old EKG, old radiological studies, urgent care reports/EKG's, half-way records)? Report findings @ -No old charts were reviewed Differential Diagnosis (chest pain, altered mental status, abdominal pain women, abdominal pain men, vaginal bleeding, weakness, fever, dyspnea, syncope, headache, dizziness, GI bleed, back pain, seizure, CVA, palpatations, mental health)? @ -Differential Altered Mental Status: Hypoglycemia, DKA, hypercapnia, ETOH, overdose, CO poisoning, trauma, myxedema coma, HTN encephalopathy, infection, encephalitis, psychosis, intercranial hemorrhage, hepatic encephalopathy, meningitis, CVA, this is not meant to be an all-inclusive list EKG interpreted by me (3pts min.). @ -As above X-rays interpreted by me (1pt min.). @ -Chest x-ray shows increasing right effusion and passively CT interpreted by me (1pt min.). @ -Reports reviewed U/S interpreted by me (1pt. min.). @ -None done What testing was considered but not performed or refused? (CT, X-rays, U/S, labs)? Why? @ -None What meds were considered but not given or refused? Why? @ -None Did you discuss the management of the patient with other professionals (professionals i.e. , PA, CORD MAKER, lab, RT, psych nurse, social worker assistant, ambulance driver, teacher, dispatch officer, cyanide case hardener)? Give summary @ -Case was discussed with Dr. Ladd, covering Dr. Bashir, who admits for Dr. Steele Was smoking cessation discussed for >3mins.? @ -No Was critical care preformed (if so, how long)? @ -32 minutes critical care time Were there social determinants of health that impacted care today? How? (Homelessness, low income, unemployed, alcoholism, drug addiction, transportation, low edu. Level, literacy, decrease access to med. care, long term, rehab)? @ -No Was there de-escalation of care discussed even if they declined (Discuss DNR or withdrawal of care, Hospice)? DNR status @ -No What co-morbidities impacted this encounter? (DM, HTN, Smoking, COPD, CAD, Cancer, CVA, ARF, Chemo, Hep., AIDS, mental health diagnosis, sleep apnea, morbid obesity)? @ -None Was patient admitted / discharged? Hospital course, mention meds given and route, prescriptions, significant lab abnormalities, going to OR and other pertinent info. @ -Patient reevaluated without much change. Patient was placed on BiPAP. There is concern for pneumonia. Patient will be started on IV antibiotics. Blood cultures and lactic acid ordered. Undiagnosed new problem with uncertain prognosis? @ -No Drug Therapy requiring intensive monitoring for toxicity (Heparin, Nitro, Insulin, Cardizem)? @ -No Were any procedures done? @ -No Diagnosis/symptom? @ -Pneumonia, respiratory failure Acute, or Chronic, or Acute on Chronic? @ -Acute Uncomplicated (without systemic symptoms) or Complicated (systemic symptoms)? @ -Pneumonia, acute respiratory failure and CO2 retention Side effects of treatment? @ -No Exacerbation, Progression, or Severe Exacerbation? @ -No Poses a threat to life or bodily function? How? (Chest pain, [place], [place], pneumonia, PE, COPD, DKA, ARF, appy, cholecystitis, CVA, Diverticulitis, Homicidal, Suicidal, threat to staff... and all critical care pts) @ -Hypoxia and hypercarbia to pose a risk to life and bodily function - Lab Data Result diagrams: 05/21/23 14:10 05/21/23 14:10 Lab Results 05/21/23 05/21/23 05/21/23 Range/Units 14:09 14:10 14:10 WBC 12.7 H (3.8-10.6) k/uL RBC 4.37 (4.30-5.90) m/uL Hgb 11.8 L (13.0-17.5) gm/dL Hct 39.6 (39.0-53.0) % MCV 90.6 (80.0-100.0) fL MCH 27.0 (25.0-35.0) pg MCHC 29.8 L (31.0-37.0) g/dL RDW 15.6 H (11.5-15.5) % Plt Count 332 (150-450) k/uL MPV 7.1 Neutrophils % 90 % Lymphocytes % 4 % Monocytes % 4 % Eosinophils % 1 % Basophils % 1 % Neutrophils # 11.4 H (1.3-7.7) k/uL Lymphocytes # 0.5 L (1.0-4.8) k/uL Monocytes # 0.5 (0-1.0) k/uL Eosinophils # 0.1 (0-0.7) k/uL Basophils # 0.1 (0-0.2) k/uL Hypochromasia Marked PT 10.0 (9.0-12.0) sec INR 0.9 (<1.2) APTT 23.8 (22.0-30.0) sec Sample Site ABG pH (7.35-7.45) ABG pCO2 (35-45) mmHg ABG pO2 (83-108) mmHg ABG HCO3 (21-25) mmol/L ABG Total CO2 (19-24) mmol/L ABG O2 Saturation (94-97) % ABG Base Excess mmol/L Adi Test FiO2 % Sodium (137-145) mmol/L Potassium (3.5-5.1) mmol/L Chloride (98-107) mmol/L Carbon Dioxide (22-30) mmol/L Anion Gap mmol/L BUN (9-20) mg/dL Creatinine (0.66-1.25) mg/dL Est GFR (CKD-EPI)AfAm (>60 ml/min/1.73 sqM) Est GFR (CKD-EPI)NonAf (>60 ml/min/1.73 sqM) Glucose (74-99) mg/dL POC Glucose (mg/dL) 81 (70-110) mg/dL POC Glu Wash Barrel Leader ID John, Lisa Calcium (8.4-10.2) mg/dL Total Bilirubin (0.2-1.3) mg/dL AST (17-59) U/L ALT (4-49) U/L Alkaline Phosphatase (38-126) U/L Ammonia (<30) umol/L Troponin I (0.000-0.034) ng/mL Total Protein (6.3-8.2) g/dL Albumin (3.5-5.0) g/dL Urine Color Urine Appearance (Clear) Urine pH (5.0-8.0) Ur Specific [place] (1.001-1.035) Urine Protein (Negative) Urine Glucose (UA) (Negative) Urine Ketones (Negative) Urine Blood (Negative) Urine Nitrite (Negative) Urine Bilirubin (Negative) Urine Urobilinogen (<2.0) mg/dL Ur Leukocyte Esterase (Negative) Urine RBC (0-5) /hpf Urine WBC (0-5) /hpf Urine Bacteria (None) /hpf Hyaline Casts (0-2) /lpf Urine Mucus (None) /hpf Urine Opiates Screen (NotDetected) Ur Oxycodone Screen (NotDetected) Urine Methadone Screen (NotDetected) Ur Propoxyphene Screen (NotDetected) Ur Barbiturates Screen (NotDetected) U Tricyclic Antidepress (NotDetected) Ur Phencyclidine Scrn (NotDetected) Ur Amphetamines Screen (NotDetected) U Methamphetamines Scrn (NotDetected) U Benzodiazepines Scrn (NotDetected) Urine Cocaine Screen (NotDetected) U Marijuana (THC) Screen (NotDetected) Influenza Type A (PCR) (Not Detectd) Influenza Type B (PCR) (Not Detectd) RSV (PCR) (Not Detectd) SARS-CoV-2 (PCR) (Not Detectd) 05/21/23 05/21/23 05/21/23 Range/Units 14:10 14:10 14:10 WBC (3.8-10.6) k/uL RBC (4.30-5.90) m/uL Hgb (13.0-17.5) gm/dL Hct (39.0-53.0) % MCV (80.0-100.0) fL MCH (25.0-35.0) pg MCHC (31.0-37.0) g/dL RDW (11.5-15.5) % Plt Count (150-450) k/uL MPV Neutrophils % % Lymphocytes % % Monocytes % % Eosinophils % % Basophils % % Neutrophils # (1.3-7.7) k/uL Lymphocytes # (1.0-4.8) k/uL Monocytes # (0-1.0) k/uL Eosinophils # (0-0.7) k/uL Basophils # (0-0.2) k/uL Hypochromasia PT (9.0-12.0) sec INR (<1.2) APTT (22.0-30.0) sec Sample Site ABG pH (7.35-7.45) ABG pCO2 (35-45) mmHg ABG pO2 (83-108) mmHg ABG HCO3 (21-25) mmol/L ABG Total CO2 (19-24) mmol/L ABG O2 Saturation (94-97) % ABG Base Excess mmol/L Adi Test FiO2 % Sodium 135 L (137-145) mmol/L Potassium 4.1 (3.5-5.1) mmol/L Chloride 90 L (98-107) mmol/L Carbon Dioxide 39 H (22-30) mmol/L Anion Gap 6 mmol/L BUN 18 (9-20) mg/dL Creatinine 0.87 (0.66-1.25) mg/dL Est GFR (CKD-EPI)AfAm >90 (>60 ml/min/1.73 sqM) Est GFR (CKD-EPI)NonAf >90 (>60 ml/min/1.73 sqM) Glucose 100 H (74-99) mg/dL POC Glucose (mg/dL) (70-110) mg/dL POC Glu Wash Bar[employer] Leader ID Calcium 8.5 (8.4-10.2) mg/dL Total Bilirubin 0.5 (0.2-1.3) mg/dL AST 32 (17-59) U/L ALT 32 (4-49) U/L Alkaline Phosphatase 186 H (38-126) U/L Ammonia 10 (<30) umol/L Troponin I (0.000-0.034) ng/mL Total Protein 5.9 L (6.3-8.2) g/dL Albumin 3.3 L (3.5-5.0) g/dL Urine Color Light Yellow Urine Appearance Clear (Clear) Urine pH 5.5 (5.0-8.0) Ur Specific [place] 1.009 (1.001-1.035) Urine Protein Negative (Negative) Urine Glucose (UA) Negative (Negative) Urine Ketones Negative (Negative) Urine Blood Negative (Negative) Urine Nitrite Negative (Negative) Urine Bilirubin Negative (Negative) Urine Urobilinogen <2.0 (<2.0) mg/dL Ur Leukocyte Esterase Moderate H (Negative) Urine RBC 3 (0-5) /hpf Urine WBC 9 H (0-5) /hpf Urine Bacteria Occasional H (None) /hpf Hyaline Casts 1 (0-2) /lpf Urine Mucus Rare H (None) /hpf Urine Opiates Screen Not Detected (NotDetected) Ur Oxycodone Screen Detected H (NotDetected) Urine Methadone Screen Not Detected (NotDetected) Ur Propoxyphene Screen Not Detected (NotDetected) Ur Barbiturates Screen Not Detected (NotDetected) U Tricyclic Antidepress Not Detected (NotDetected) Ur Phencyclidine Scrn Not Detected (NotDetected) Ur Amphetamines Screen Not Detected (NotDetected) U Methamphetamines Scrn Not Detected (NotDetected) U Benzodiazepines Scrn Not Detected (NotDetected) Urine Cocaine Screen Not Detected (NotDetected) U Marijuana (THC) Screen Not Detected (NotDetected) Influenza Type A (PCR) (Not Detectd) Influenza Type B (PCR) (Not Detectd) RSV (PCR) (Not Detectd) SARS-CoV-2 (PCR) (Not Detectd) 05/21/23 05/21/23 05/21/23 Range/Units 14:10 14:10 15:15 WBC (3.8-10.6) k/uL RBC (4.30-5.90) m/uL Hgb (13.0-17.5) gm/dL Hct (39.0-53.0) % MCV (80.0-100.0) fL MCH (25.0-35.0) pg MCHC (31.0-37.0) g/dL RDW (11.5-15.5) % Plt Count (150-450) k/uL MPV Neutrophils % % Lymphocytes % % Monocytes % % Eosinophils % % Basophils % % Neutrophils # (1.3-7.7) k/uL Lymphocytes # (1.0-4.8) k/uL Monocytes # (0-1.0) k/uL Eosinophils # (0-0.7) k/uL Basophils # (0-0.2) k/uL Hypochromasia PT (9.0-12.0) sec INR (<1.2) APTT (22.0-30.0) sec Sample Site Right Radial ABG pH 7.29 L (7.35-7.45) ABG pCO2 81 H* (35-45) mmHg ABG pO2 74 L (83-108) mmHg ABG HCO3 39 H (21-25) mmol/L ABG Total CO2 42 H (19-24) mmol/L ABG O2 Saturation 95.1 (94-97) % ABG Base Excess 12.6 mmol/L Adi Test Yes FiO2 28 % Sodium (137-145) mmol/L Potassium (3.5-5.1) mmol/L Chloride (98-107) mmol/L Carbon Dioxide (22-30) mmol/L Anion Gap mmol/L BUN (9-20) mg/dL Creatinine (0.66-1.25) mg/dL Est GFR (CKD-EPI)AfAm (>60 ml/min/1.73 sqM) Est GFR (CKD-EPI)NonAf (>60 ml/min/1.73 sqM) Glucose (74-99) mg/dL POC Glucose (mg/dL) (70-110) mg/dL POC Glu Wash Barrel Leader ID Calcium (8.4-10.2) mg/dL Total Bilirubin (0.2-1.3) mg/dL AST (17-59) U/L ALT (4-49) U/L Alkaline Phosphatase (38-126) U/L Ammonia (<30) umol/L Troponin I <0.012 (0.000-0.034) ng/mL Total Protein (6.3-8.2) g/dL Albumin (3.5-5.0) g/dL Urine Color Urine Appearance (Clear) Urine pH (5.0-8.0) Ur Specific [place] (1.001-1.035) Urine Protein (Negative) Urine Glucose (UA) (Negative) Urine Ketones (Negative) Urine Blood (Negative) Urine Nitrite (Negative) Urine Bilirubin (Negative) Urine Urobilinogen (<2.0) mg/dL Ur Leukocyte Esterase (Negative) Urine RBC (0-5) /hpf Urine WBC (0-5) /hpf Urine Bacteria (None) /hpf Hyaline Casts (0-2) /lpf Urine Mucus (None) /hpf Urine Opiates Screen (NotDetected) Ur Oxycodone Screen (NotDetected) Urine Methadone Screen (NotDetected) Ur Propoxyphene Screen (NotDetected) Ur Barbiturates Screen (NotDetected) U Tricyclic Antidepress (NotDetected) Ur Phencyclidine Scrn (NotDetected) Ur Amphetamines Screen (NotDetected) U Methamphetamines Scrn (NotDetected) U Benzodiazepines Scrn (NotDetected) Urine Cocaine Screen (NotDetected) U Marijuana (THC) Screen (NotDetected) Influenza Type A (PCR) Not Detected (Not Detectd) Influenza Type B (PCR) Not Detected (Not Detectd) RSV (PCR) Not Detected (Not Detectd) SARS-CoV-2 (PCR) Not Detected (Not Detectd) Critical Care Time Critical Care Time: Yes Total Critical Care Time: 32 Disposition Clinical Impression: Pneumonia, CO2 retention, Respiratory failure Disposition: ADMITTED IP TO THIS HOSP Is patient prescribed a controlled substance at d/c from ED?: No Referrals: Antelmo Crenshaw MD [Primary Care Provider] - 1-2 days Time of Disposition: 16:20
[2023-05-21] MEDS ORDERED: IPRATROPIUM-ALBUTEROL 3 ML NEB INHALATION STA (14:04)
[2023-05-21 14:10] LABS: Glucose,Whole Blood 81 mg/dL (70-110)
[2023-05-21 14:49] LABS: Basophils # (A) 0.1 k/uL (0-0.2); Basophils % (A) 1 %; Eosinophils # (A) 0.1 k/uL (0-0.7); Eosinophils % (A) 1 %; HCT 39.6 % (39.0-53.0); HGB 11.8 gm/dL (13.0-17.5); Hypochromasia Marked; Lymphocytes # (A) 0.5 k/uL (1.0-4.8); Lymphocytes % (A) 4 %; MCHC 29.8 g/dL (31.0-37.0); MCV 90.6 fL (80.0-100.0); Mean Platelet Volume 7.1; Monocytes # (A) 0.5 k/uL (0-1.0); Monocytes % (A) 4 %; Neutrophils # (A) 11.4 k/uL (1.3-7.7); Neutrophils % (A) 90 %; Platelet Count 332 k/uL (150-450); RBC 4.37 m/uL (4.30-5.90); RDW 15.6 % (11.5-15.5); WBC 12.7 k/uL (3.8-10.6)
[2023-05-21 14:57] LABS: Appearance,Urine Clear (Clear); Bacteria,Urine Occasional /hpf; Bilirubin,Urine Negative (Negative); Blood,Urine Negative (Negative); Color,Urine Light Yellow; Glucose,Urine (UA) Negative (Negative); Hyaline Casts,Urine 1 /lpf (0-2); INR 0.9 (<1.2); Ketones,Urine Negative (Negative); Leukocyte Esterase,Urine Moderate (Negative); Mucus,Urine Rare /hpf; Nitrite,Urine Negative (Negative); PH, Urine 5.5 (5.0-8.0); Partial Thromboplastin Time 23.8 sec (22.0-30.0); Protein,Urine Negative (Negative); RBC,Urine 3 /hpf (0-5); Specific Gravity,Urine 1.009 (1.001-1.035); Urobilinogen,Urine <2.0 mg/dL (<2.0); WBC,Urine 9 /hpf (0-5)
[2023-05-21 15:06] LABS: ALT 32 U/L (4-49); AST 32 U/L (17-59); African American GFR (CKD) >90 (>60 ml/min/1.73 sqM); Albumin 3.3 g/dL (3.5-5.0); Alkaline Phosphatase 186 U/L (38-126); Blood Urea Nitrogen 18 mg/dL (9-20); Calcium 8.5 mg/dL (8.4-10.2); Chloride 90 mmol/L (98-107); Glucose 100 mg/dL (74-99); Non-African American GFR(CKD) >90 (>60 ml/min/1.73 sqM); Potassium 4.1 mmol/L (3.5-5.1); Sodium 135 mmol/L (137-145); Total Bilirubin 0.5 mg/dL (0.2-1.3); Total Protein 5.9 g/dL (6.3-8.2)
[2023-05-21 15:12] LABS: Anion Gap 6 mmol/L
[2023-05-21 15:16] LABS: Allen Test Performed? Yes
[2023-05-21 15:16] LABS: Carbon Dioxide 39 mmol/L (22-30)
[2023-05-21 15:17] LABS: ABG Base Excess 12.6 mmol/L; ABG HCO3 39 mmol/L (21-25); ABG Oxygen Saturation 95.1 % (94-97); ABG PH 7.29 (7.35-7.45); ABG PO2 74 mmHg (83-108); ABG TCO2 42 mmol/L (19-24)
[2023-05-21 15:17] LABS: Amphetamine Screen,Urine Not Detected (NotDetected); Barbiturate Screen,Urine Not Detected (NotDetected); Benzodiazepines Screen,Urine Not Detected (NotDetected); Cocaine Screen,Urine Not Detected (NotDetected); Methadone Screen, Urine Not Detected (NotDetected); Opiate Screen,Urine Not Detected (NotDetected); Oxycodone Screen, Urine Detected (NotDetected); Phencyclidine Screen,Urine Not Detected (NotDetected); Tricyclic Antidepressant,Urine Not Detected (NotDetected); Urn Cannabinoid Scrn Not Detected (NotDetected)
[2023-05-21 15:19] LABS: ABG PCO2 81 mmHg (35-45)
--- NOTE | 2023-05-21 15:44 | CT ---
EXAMINATION TYPE: CT brain wo con DATE OF EXAM: 05/21/2023 COMPARISON: 03/27/2021 HISTORY: 62-year-old male AMS, weakness TECHNIQUE: Examination was done in axial plane without intravenous contrast. Coronal and sagittal r econstructions performed. CT DLP: 1260.4 mGycm Automated exposure control for dose reduction was used. FINDINGS: The exam is motion degraded. This results and mild generalized calvarial artifacts. Greater degree of skull base artifacts. Allowing for these artifacts, there is no evidence of acute intracranial hemorrhage, acute ischemic changes, mass, mass-effect, or extra-axial fluid collection. There is no effacement of cerebral sulc i or basal subarachnoid cisterns. There is no hydrocephalus. There is no midline shift. Garcia-white matter distinction is preserved. 4 mm of cerebellar tonsillar ectopia is indeterminate but probably represents benign cerebellar tonsi llar ectopia. Leftward nasal septal deviation. There is air fluid level right sphenoid sinus. Mastoid air cells wel l pneumatized. Orbits and globes are intact. IMPRESSION: 1. Prominent motion/calvarial and skull base artifacts limiting the exam. No definite acute intracran ial abnormality seen. Consider MRI if symptoms persist. MRI can also assess for potential cerebellar tonsillar ectopia. 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 2. Air-fluid level right sphenoid sinus may be seen with acute sinusitis.
--- NOTE | 2023-05-21 16:03 | XR ---
EXAMINATION TYPE: XR chest 2V DATE OF EXAM: 05/21/2023 COMPARISON: 03/17/2023 HISTORY: 62-year-old male confusion, altered mental status TECHNIQUE: AP and lateral views FINDINGS: Right heart margin remains obscured by adjacent pleural parenchymal opacity. Ongoing moderate to larg e right pleural effusion. Worsening patchy opacity throughout the visualized right upper lung. IMPRESSION: Ongoing moderate to large right pleural effusion with adjacent atelectasis and/or consolidation. Wors ening patchy airspace opacity throughout the right upper lung.
[2023-05-21] MEDS ORDERED: PNEUMONIA PROTOCOL UTILIZED 1 EACH MISC PO PRN (16:22)
[2023-05-21] MEDS ORDERED: AZITHROMYCIN 500 MG in SODIUM CHLORIDE 0.9% 250 ML IVPB STA (16:22)
--- NOTE | 2023-05-21 17:20 | P.HPIM ---
History of Present Illness H&P Date: 05/21/23 Patient is a 62-year-old male with PMH of atrial fibrillation, COPD, CHF, DVT/PE, ALEXIS, CKD stage III presents ED for altered mentation and difficulty breathing. Patient is currently obtunded and majority of history is obtained from chart review. It appears that patient was admitted at [facility] from 05/03-05/14 for CHF exacerbation. In the ED, patient required BiPAP 18/6 FiO2 of 60%. CBC showed WBC count of 12.7 and hemoglobin of 11.8. Coagulation panel within normal limits. ABG showed pH of 7.29, pCO2 of 81. CMP showed sodium 135, chloride of 90, bicarb of 39, glucose 100, alkaline phosphatase of 186, albumin of 3.3. Ammonia was 10. Troponin was less than 0.012. Urinalysis showed moderate leukocyte esterase with 9 WBC. UDS positive for oxycodone. Influenza, RSV, COVID-[address] brain showed no acute intracranial hemorrhage or ischemic changes. Chest x-ray showed moderate to large right pleural effusion with worsening patchy airspace opacity throughout the right upper lung. EKG showed sinus rhythm with ventricular rate of 81, Q waves in leads II and aVF. Patient is admitted for altered mentation and respiratory failure. Echo 09/18 shows preserved EF with severe diastolic dysfunction. Pertinent positives and negatives as discussed in HPI, a complete review of systems was performed and all other systems are negative. General: Obtunded, no distress, appears at stated age Derm: warm, dry Head: atraumatic, normocephalic, symmetric Eyes: EOMI, no lid lag, anicteric sclera Cardiovascular: S1S2 reg, no murmur Lungs: Decreased breath sounds bilateral, no rhonchi, no rales , no accessory muscle use Abdominal: soft, nontender to palpation, no guarding, no appreciable organomegaly Ext: no gross muscle atrophy, 2+ pitting lower extremity edema, no contractures Neuro: Unable to assess Psych: Unable to assess Acute metabolic encephalopathy Acute on chronic hypoxic hypercapnic respiratory failure Acute on chronic diastolic CHF exacerbation Large right pleural effusion Sepsis likely related to pneumonia Chronic conditions: Atrial fibrillation, COPD, CHF, DVT/PE, ALEXIS, CKD stage III Based on my assessment of this patient, this patient meets a high complexity level of care. Patient has an acute diagnosis of acute metabolic encephalopathy likely secondary to hypercapnic respiratory failure from pneumonia and pleural effusion that poses a threat to life or bodily function. Bronchodilators: DuoNeb 0.5mg-3mg/3ml scheduled and as needed for SOB and wheezing. Spiriva 1 puff daily. Pulmicort 0.5 INH BID. Antibiotics: Rocephin 1 g IV daily. Azithromycin 500 mg PO QD. Continue BiPAP support. Telemetry monitoring. Sputum, Blood culture and lactic acid ordered. Repeat CXR tomorrow. Pulmonology consulted for further management of this patient. Chantel for DVT prophylaxis. FULL CODE. I have reviewed the following specialty development consultant notes: I have reviewed the results of the following tests: CBC showed WBC count of 12.7 and hemoglobin of 11.8. Correlation panel within normal limits. ABG showed pH of 7.29, pCO2 of 81. CMP showed sodium 135, chloride of 90, bicarb of 39, glucose 100, alkaline phosphatase of 186, albumin of 3.3. Ammonia was 10. Troponin was less than 0.012. Urinalysis showed moderate leukocyte esterase with 9 WBC. UDS positive for oxycodone. Influenza, RSV, COVID-[address] brain showed no acute intracranial hemorrhage or ischemic changes. EKG showed sinus rhythm with ventricular rate of 81, Q waves in leads II and aVF. I have ordered the following tests: Sputum, Blood culture and lactic acid ordered. Repeat CXR tomorrow. I have discussed the care of this patient with the following independent hist orian: I have independently interpreted the following test below: Chest x-ray showed moderate to large right pleural effusion with patchy airspace opacity throughout the right upper lung. I have discussed the management of this patient with the following physician: Case was discussed with Dr. Hendrickson and decision made to admit the patient to ICU overnight for closer monitoring of respiratory status. Past Medical History Past Medical History: Atrial Fibrillation, Asthma, Cancer, Heart Failure, COPD, Deep Vein Thrombosis (DVT), GERD/Reflux, GI Bleed, Hyperlipidemia, Hypertension, Osteoarthritis (OA), Pneumonia, Pulmonary Embolus (PE), Renal Disease, Respiratory Disorder, Sleep Apnea/CPAP/BIPAP Additional Past Medical History / Comment(s): +Covid 12-04-21 and early 2022, hx chronic CHF/abnormal ECHO-see report/paroxysmal afib/bilat pleural effusions w/ R sided thoracentesis. hypoglycemia. BLE neuropathy, colitis, chronic generalized pain, fluid retention, bedbound, hiatal hernia, DDD, scoliosis, ALEXIS w/ CPAP, CKD stage III, pseudoseizures - none in 1 year, basal cell skin cancer, BLE edema, CPAP and uses Home O2 21/06, SOB. History of Any Multi-Drug Resistant Organisms: MRSA Date of last positivie culture/infection: MRSA 09/05/21 MDRO Source:: LEG Past Surgical History: Appendectomy, Bariatric Surgery, Cholecystectomy, Heart Catheterization, Hernia Repair, Joint Replacement, Orthopedic Surgery Additional Past Surgical History / Comment(s): Gastric sleeve 2013, L inguinal hernia repair, R elbow surgery x2, total R hip arthroplasty, L knee arthroscopy/ACL surgery, R ankle ORIF, EGD, colonoscopy, basal cell skin cancer exc face, surgery for varicele,lt knee arthroscopy x2. Past Anesthesia/Blood Transfusion Reactions: Previous Problems w/ Anesthesia Additional Past Anesthesia/Blood Transfusion Reaction / Comment(s): STATES WAS TOLD HE WAS A DIFFICULT INTUBATION WITH GASTRIC SLEEVE SURGERY, no problems with gallbladder surgery after gastric sleeve surgery in Aug 2021 Past Psychological History: Anxiety, Bipolar, Depression, Panic Disorder, Schizoaffective Disorder Smoking Status: Former smoker Past Alcohol Use History: None Reported Past Drug Use History: None Reported - Past Family History Father Family Medical History: Cancer Additional Family Medical History / Comment(s): LUNG CA Mother Family Medical History: Coronary Artery Disease (CAD) Additional Family Medical History / Comment(s): Mother of an infection. Medications and Allergies Home Medications Medication Instructions Recorded Confirmed Type Rivaroxaban [Xarelto] 20 mg PO HS 07/14/19 05/21/23 History OLANZapine 20 mg PO HS 10/29/20 05/21/23 History Omeprazole 20 mg PO DAILY 03/27/21 05/21/23 History DULoxetine HCL [Cymbalta] 60 mg PO DAILY 09/05/21 05/21/23 History Albuterol Sulfate [Ventolin HFA] 1 - 2 puff INHALATION RT-Q6H PRN 10/28/21 05/21/23 History Tamsulosin HCl [Flomax] 0.4 mg PO DAILY 10/28/21 05/21/23 History Tiotropium 2.5 Mcg/Puff [Spiriva 2 puff INHALATION RT-DAILY 10/28/21 05/21/23 History Respimat 2.5 Mcg] Cholecalciferol [Vitamin D3 (25 25 mcg PO DAILY 09/09/22 05/21/23 History Mcg = 1000 Iu)] Metoprolol Tartrate [Lopressor] 25 mg PO BID 09/09/22 05/21/23 History Spironolactone [Aldactone] 25 mg PO DAILY 09/09/22 05/21/23 History allopurinoL [Zyloprim] 100 mg PO DAILY 09/09/22 05/21/23 History Budesonide [Pulmicort] 0.5 mg INHALATION RT-BID 03/17/23 05/21/23 History Docusate [Colace] 100 mg PO DAILY PRN 03/17/23 05/21/23 History Ipratropium-Albuterol Nebulize 3 ml INHALATION RT-QID 03/17/23 05/21/23 History [Duoneb 0.5 mg-3 mg/3 ml Soln] Potassium Chloride ER [K-Dur 20] 20 meq PO DAILY 03/17/23 05/21/23 History oxyCODONE-APAP 10-325MG [Percocet 1 tab PO Q6H PRN 03/17/23 05/21/23 History 10-325 mg] Bumetanide [BUMEX] 2 mg PO DAILY 05/21/23 05/21/23 History Ferrous Sulfate [Iron] 325 mg PO DAILY 05/21/23 05/21/23 History Lactulose [Constulose] 20 gm PO BID PRN 05/21/23 05/21/23 History acetaZOLAMIDE [Diamox Sequels] 500 mg PO DAILY 05/21/23 05/21/23 History Allergies Allergy/AdvReac Type Severity Reaction Status Date / Time codeine Allergy Severe Swelling Verified 05/21/23 16:28 OF THROAT WITH COUGH SYRUP allopurinol Allergy Unknown Verified 05/21/23 16:28 chlorpheniramine Allergy Unknown Verified 05/21/23 16:28 febuxostat [From Uloric] Allergy Unknown Verified 05/21/23 16:28 phenylephrine Allergy Unknown Verified 05/21/23 16:28 piperacillin sodium Allergy Unknown Verified 05/21/23 16:28 [From Zosyn] sulfamethoxazole Allergy Unknown Verified 05/21/23 16:28 [From Bactrim] tazobactam sodium Allergy Unknown Verified 05/21/23 16:28 [From Zosyn] trimethoprim [From Bactrim] Allergy Unknown Verified 05/21/23 16:28 buspirone [From BuSpar] AdvReac Rapid Verified 05/21/23 16:28 Heart Rate Physical Exam Vitals: Vital Signs Temp Pulse Resp BP Pulse Ox FiO2 05/21/23 16:04 72 20 93/51 100 05/21/23 15:43 60 05/21/23 15:16 87 20 92/78 95 05/21/23 15:11 82 05/21/23 14:58 82 05/21/23 13:57 100.4 F H 85 19 100/45 92 L Intake and Output 05/21/23 05/21/23 05/21/23 06:59 14:59 22:59 Other: Weight 199.581 kg Results CBC & Chem 7: 05/21/23 14:10 05/21/23 14:10 Labs: Abnormal Lab Results - Last 24 Hours (Table) 05/21/23 05/21/23 05/21/23 Range/Units 14:10 14:10 14:10 WBC 12.7 H (3.8-10.6) k/uL Hgb 11.8 L (13.0-17.5) gm/dL MCHC 29.8 L (31.0-37.0) g/dL RDW 15.6 H (11.5-15.5) % Neutrophils # 11.4 H (1.3-7.7) k/uL Lymphocytes # 0.5 L (1.0-4.8) k/uL ABG pH (7.35-7.45) ABG pCO2 (35-45) mmHg ABG pO2 (83-108) mmHg ABG HCO3 (21-25) mmol/L ABG Total CO2 (19-24) mmol/L Sodium 135 L (137-145) mmol/L Chloride 90 L (98-107) mmol/L Carbon Dioxide 39 H (22-30) mmol/L Glucose 100 H (74-99) mg/dL Alkaline Phosphatase 186 H (38-126) U/L Total Protein 5.9 L (6.3-8.2) g/dL Albumin 3.3 L (3.5-5.0) g/dL Ur Leukocyte Esterase Moderate H (Negative) Urine WBC 9 H (0-5) /hpf Urine Bacteria Occasional H (None) /hpf Urine Mucus Rare H (None) /hpf Ur Oxycodone Screen Detected H (NotDetected) 05/21/23 Range/Units 15:15 WBC (3.8-10.6) k/uL Hgb (13.0-17.5) gm/dL MCHC (31.0-37.0) g/dL RDW (11.5-15.5) % Neutrophils # (1.3-7.7) k/uL Lymphocytes # (1.0-4.8) k/uL ABG pH 7.29 L (7.35-7.45) ABG pCO2 81 H* (35-45) mmHg ABG pO2 74 L (83-108) mmHg ABG HCO3 39 H (21-25) mmol/L ABG Total CO2 42 H (19-24) mmol/L Sodium (137-145) mmol/L Chloride (98-107) mmol/L Carbon Dioxide (22-30) mmol/L Glucose (74-99) mg/dL Alkaline Phosphatase (38-126) U/L Total Protein (6.3-8.2) g/dL Albumin (3.5-5.0) g/dL Ur Leukocyte Esterase (Negative) Urine WBC (0-5) /hpf Urine Bacteria (None) /hpf Urine Mucus (None) /hpf Ur Oxycodone Screen (NotDetected)
[2023-05-21] MEDS: SODIUM CHLORIDE 0.9% 1,000 ML IV SCH (18:53)
[2023-05-21] MEDS: IPRATROPIUM-ALBUTEROL 3 ML NEB INHALATION SCH (20:26)
[2023-05-21] MEDS: BUDESONIDE 0.5 MG/2 ML NEBU INHALATION SCH (20:27)
[2023-05-21] MEDS: oxyCODONE-APAP 10-325MG 1 EACH TAB PO PRN (22:01)
[2023-05-21] MEDS: METOPROLOL TARTRATE 25 MG TAB PO SCH (22:01)
[2023-05-21] MEDS: OLANZapine 10 MG TAB PO SCH (22:01)
[2023-05-21] MEDS: RIVAROXABAN 20 MG TAB PO SCH (22:11)
[2023-05-21] MEDS: BUMETANIDE 0.25 MG/ML 4 ML VIAL IVP SCH (23:17)
[2023-05-22] MEDS: oxyCODONE-APAP 10-325MG 1 EACH TAB PO PRN ×3 (04:01→17:58)
--- NOTE | 2023-05-22 07:12 | XR ---
EXAMINATION TYPE: XR chest 1V DATE OF EXAM: 05/22/2023 HISTORY: Shortness of breath. COMPARISON: 05/21/2023 TECHNIQUE: Single view of the chest is submitted. FINDINGS: Demonstrated are scattered senescent parenchymal change. Increasing infiltrate right lung with underlying pleural effusion. The left lung appears to be clear at this time. The heart is stable. Hilar and mediastinal structures are within normal limits. Degenerative changes are seen of the dorsal spine. IMPRESSION: 1. Increasing infiltrate right lung with underlying pleural effusion.
[2023-05-22] MEDS: IPRATROPIUM-ALBUTEROL 3 ML NEB INHALATION SCH ×4 (07:57→20:56)
[2023-05-22] MEDS: BUDESONIDE 0.5 MG/2 ML NEBU INHALATION SCH ×2 (07:57→20:56)
[2023-05-22] MEDS ORDERED: NON FORMULARY DRUG (Tiotropium 2.5 Mcg/Puff 10 PUFF Each) INHALATION SCH (08:00)
[2023-05-22] MEDS ORDERED: BUMETANIDE 1 MG TAB PO SCH (09:00)
[2023-05-22] MEDS: allopurinoL 100 MG TAB PO SCH (09:20)
[2023-05-22] MEDS: AZITHROMYCIN 500 MG TAB PO SCH (09:21)
[2023-05-22] MEDS: DULoxetine HCL 60 MG CAPSULE.DR PO SCH (09:22)
[2023-05-22] MEDS: PANTOPRAZOLE 40 MG TABLET PO SCH (09:24)
[2023-05-22] MEDS: METOPROLOL TARTRATE 25 MG TAB PO SCH ×2 (09:24→20:07)
[2023-05-22] MEDS: SPIRONOLACTONE 25 MG TAB PO SCH (09:24)
[2023-05-22] MEDS: acetaZOLAMIDE 250 MG TAB PO SCH (09:24)
[2023-05-22] MEDS: TAMSULOSIN 0.4 MG CAP.ER.24H PO SCH (09:25)
[2023-05-22 09:59] LABS: HCT 36.8 % (39.0-53.0); Hypochromasia Marked; MCH 27.2 pg (25.0-35.0); MCV 90.7 fL (80.0-100.0); Mean Platelet Volume 8.5; Platelet Count 280 k/uL (150-450); RBC 4.05 m/uL (4.30-5.90); RDW 15.7 % (11.5-15.5); WBC 8.6 k/uL (3.8-10.6)
[2023-05-22 10:43] LABS: African American GFR (CKD) >90 (>60 ml/min/1.73 sqM); Blood Urea Nitrogen 19 mg/dL (9-20); Calcium 8.6 mg/dL (8.4-10.2); Chloride 90 mmol/L (98-107); Glucose 105 mg/dL (74-99); Non-African American GFR(CKD) >90 (>60 ml/min/1.73 sqM); Potassium 3.9 mmol/L (3.5-5.1); Sodium 134 mmol/L (137-145)
[2023-05-22] MEDS: BUMETANIDE 0.25 MG/ML 4 ML VIAL IVP SCH ×2 (10:49→20:07)
[2023-05-22 10:50] LABS: Anion Gap 7 mmol/L; Carbon Dioxide 37 mmol/L (22-30)
--- NOTE | 2023-05-22 13:51 | P.CNPUL ---
History of Present Illness Consult date: 05/22/23 Reason for consult: dyspnea, pleural effusion History of present illness: 60-year-old mentation is coming into the hospital because of worsening shortness of breath and altered mentation. The patient was quite obtunded at time of admission. He was in acute on top of chronic hypoxic and hypercapnic respiratory failure. The patient was placed on a BiPAP at a pressure of 18/6 7 m of water and FiO2 of 60% and he was kept on a BiPAP throughout the night. His initial blood gas showed a pH of 7.29 with a pCO2 of 81. His urine just was positive for oxycodone. No history of any drug overdose. His Covid 19 testing was negative, influenza and RSV was negative. CAT scan of the brain showed no evidence of any acute changes. The chest x-ray showed a moderate sized right- sided pleural effusion along with patchy airspace disease involving the right lung which is a chronic finding. His echocardiogram from 2020 that showed a preserved LV function with severe diastolic dysfunction. Based on that the patient was hospitalized. This morning, so the patient in emergency department. The patient's condition is stable and awake and alert and is only on 3 L of oxygen by nasal cannula. He was able to communicate without any major difficult ies. He had increased edema lower extremity is bilaterally. Is known to me from previous hospital admissions and the patient has chronic right-sided pleural effusion and he has undergone thoracentesis 2 in the past and his previous thoracentesis was done on 08/04/2019 with a total of 950 mL of fluid was removed and subsequently on 09/12/2019. The fluid has been a transudate on previous evaluations.Patient has an extensive medical history, including chronic hypercapnic respiratory failure related to obesity hypoventilation syndrome, and patient has a Trilogy ventilator at home, on AVAPS mode with TTV 550 ml, Max PSV 25, Min PSV 5, Max EPAP 10, Min EPAP 5. History of pulmonary embolism and previous history of DVT, paroxysmal atrial fibrillation , gait dysfunction, patient is chronically bedbound, chronic pain syndrome, diabetes type II with diabetic neuropathy, history of chronic kidney disease, unspecified, morbid obesity with previous history of gastric sleeve surgery in 2013, history of COPD, former smoker, anxiety, depression, panic disorder, history of chronic CHF, cor pulmonale, his previous echocardiogram from October 2020 showed EF of 55-60%, mild MR, mild TR, severe pulmonary hypertension with PA systolic of 55.7 mmHg Review of Systems Constitutional: Denies chills, Denies fever Eyes: denies blurred vision, denies pain Ears, nose, mouth and throat: Denies headache, Denies sore throat Cardiovascular: Reports edema, Denies chest pain, Denies shortness of breath Respiratory: Reports dyspnea, Denies cough Gastrointestinal: Reports abdominal pain, Reports nausea, Reports vomiting, Denies diarrhea Musculoskeletal: Denies myalgias Integumentary: Denies pruritus, Denies rash Neurological: Denies numbness, Denies weakness, altered mentation is improved and the patient is nonambulatory at this point in time. He is bedridden Psychiatric: Denies anxiety, Denies depression Endocrine: Denies fatigue, Denies weight change Past Medical History Past Medical History: Atrial Fibrillation, Asthma, Cancer, Heart Failure, COPD, Deep Vein Thrombosis (DVT), GERD/Reflux, GI Bleed, Hyperlipidemia, Hypertension, Osteoarthritis (OA), Pneumonia, Pulmonary Embolus (PE), Renal Disease, Respiratory Disorder, Sleep Apnea/CPAP/BIPAP Additional Past Medical History / Comment(s): +Covid 12-04- and early 2022, hx chronic CHF/abnormal ECHO-see report/paroxysmal afib/bilat pleural effusions w/ R sided thoracentesis. hypoglycemia. BLE neuropathy, colitis, chronic generalized pain, fluid retention, bedbound, hiatal hernia, DDD, scoliosis, ALEXIS w/ CPAP, CKD stage III, pseudoseizures - none in 1 year, basal cell skin cancer, BLE edema, CPAP and uses Home O2 24/, SOB. History of Any Multi-Drug Resistant Organisms: MRSA Date of last positivie culture/infection: MRSA 09/05/21 MDRO Source:: LEG Past Surgical History: Appendectomy, Bariatric Surgery, Cholecystectomy, Heart Catheterization, Hernia Repair, Joint Replacement, Orthopedic Surgery Additional Past Surgical History / Comment(s): Gastric sleeve 2013, L inguinal hernia repair, R elbow surgery x2, total R hip arthroplasty, L knee arthroscopy/ACL surgery, R ankle ORIF, EGD, colonoscopy, basal cell skin cancer exc face, surgery for varicele,lt knee arthroscopy x2. Past Anesthesia/Blood Transfusion Reactions: Previous Problems w/ Anesthesia Additional Past Anesthesia/Blood Transfusion Reaction / Comment(s): STATES WAS TOLD HE WAS A DIFFICULT INTUBATION WITH GASTRIC SLEEVE SURGERY, no problems with gallbladder surgery after gastric sleeve surgery in Aug 2021 Past Psychological History: Anxiety, Bipolar, Depression, Panic Disorder, Schizoaffective Disorder Smoking Status: Former smoker Past Alcohol Use History: None Reported Past Drug Use History: None Reported - Past Family History Father Family Medical History: Cancer Additional Family Medical History / Comment(s): LUNG CA Mother Family Medical History: Coronary Artery Disease (CAD) Additional Family Medical History / Comment(s): Mother of an infection. Medications and Allergies Home Medications Medication Instructions Recorded Confirmed Type Rivaroxaban [Xarelto] 20 mg PO HS 07/14/19 05/21/23 History OLANZapine 20 mg PO HS 10/29/20 05/21/23 History Omeprazole 20 mg PO DAILY 03/27/21 05/21/23 History DULoxetine HCL [Cymbalta] 60 mg PO DAILY 09/05/21 05/21/23 History Albuterol Sulfate [Ventolin HFA] 1 - 2 puff INHALATION RT-Q6H PRN 10/28/21 05/21/23 History Tamsulosin HCl [Flomax] 0.4 mg PO DAILY 10/28/21 05/21/23 History Tiotropium 2.5 Mcg/Puff [Spiriva 2 puff INHALATION RT-DAILY 10/28/21 05/21/23 History Respimat 2.5 Mcg] Cholecalciferol [Vitamin D3 (25 25 mcg PO DAILY 09/09/22 05/21/23 History Mcg = 1000 Iu)] Metoprolol Tartrate [Lopressor] 25 mg PO BID 09/09/22 05/21/23 History Spironolactone [Aldactone] 25 mg PO DAILY 09/09/22 05/21/23 History allopurinoL [Zyloprim] 100 mg PO DAILY 09/09/22 05/21/23 History Budesonide [Pulmicort] 0.5 mg INHALATION RT-BID 03/17/23 05/21/23 History Docusate [Colace] 100 mg PO DAILY PRN 03/17/23 05/21/23 History Ipratropium-Albuterol Nebulize 3 ml INHALATION RT-QID 03/17/23 05/21/23 History [Duoneb 0.5 mg-3 mg/3 ml Soln] Potassium Chloride ER [K-Dur 20] 20 meq PO DAILY 03/17/23 05/21/23 History oxyCODONE-APAP 10-325MG [Percocet 1 tab PO Q6H PRN 03/17/23 05/21/23 History 10-325 mg] Bumetanide [BUMEX] 2 mg PO DAILY 05/21/23 05/21/23 History Ferrous Sulfate [Iron] 325 mg PO DAILY 05/21/23 05/21/23 History Lactulose [Constulose] 20 gm PO BID PRN 05/21/23 05/21/23 History acetaZOLAMIDE [Diamox Sequels] 500 mg PO DAILY 05/21/23 05/21/23 History Allergies Allergy/AdvReac Type Severity Reaction Status Date / Time codeine Allergy Severe Swelling Verified 05/21/23 16:28 OF THROAT WITH COUGH SYRUP allopurinol Allergy Unknown Verified 05/21/23 16:28 chlorpheniramine Allergy Unknown Verified 05/21/23 16:28 febuxostat [From Uloric] Allergy Unknown Verified 05/21/23 16:28 phenylephrine Allergy Unknown Verified 05/21/23 16:28 piperacillin sodium Allergy Unknown Verified 05/21/23 16:28 [From Zosyn] sulfamethoxazole Allergy Unknown Verified 05/21/23 16:28 [From Bactrim] tazobactam sodium Allergy Unknown Verified 05/21/23 16:28 [From Zosyn] trimethoprim [From Bactrim] Allergy Unknown Verified 05/21/23 16:28 buspirone [From BuSpar] AdvReac Rapid Verified 05/21/23 16:28 Heart Rate Physical Exam Vitals: Vital Signs Temp Pulse Resp BP Pulse Ox FiO2 05/22/23 11:41 72 05/22/23 11:26 75 05/22/23 08:20 76 05/22/23 07:57 80 05/22/23 07:20 97.3 F L 72 23 107/71 94 L 05/22/23 05:35 99 05/22/23 05:14 97 05/22/23 04:13 18 98 05/22/23 04:02 40 05/22/23 04:00 75 18 107/59 95 05/22/23 03:12 97.4 F L 05/22/23 01:54 63 18 118/92 96 05/21/23 23:45 64 18 117/52 93 L 05/21/23 23:31 40 05/21/23 21:39 61 16 130/97 95 05/21/23 20:45 81 05/21/23 20:33 63 16 127/82 97 05/21/23 20:29 64 05/21/23 20:25 40 05/21/23 18:20 97.8 F 05/21/23 16:04 72 20 93/51 100 05/21/23 15:43 60 05/21/23 15:16 87 20 92/78 95 05/21/23 15:11 82 05/21/23 14:58 82 05/21/23 13:57 100.4 F H 85 19 100/45 92 L Intake and Output 05/21/23 05/22/23 05/22/23 22:59 06:59 14:59 Output Total 950 875 Balance -950 -875 Output: Urine 950 875 GENERAL EXAM: Alert, very pleasant, 60-year-old morbidly obese white male, on 3 L of oxygen with a pulse ox between 92-96%, resting on the gurney in the emergency department oriented 3, comfortable in no apparent distress. HEAD: Normocephalic/atraumatic. EYES: Normal reaction of pupils, equal size. Conjunctiva pink, sclera white. NOSE: Clear with pink turbinates. THROAT: No erythema or exudates. NECK: No masses, no JVD, no thyroid enlargement, no adenopathy. CHEST: No chest wall deformity. Symmetrical expansion. LUNGS: Equal air entry with no crackles, wheeze, rhonchi or dullness. There are diminished breath on the right lung base as the patient is known to have recurrent moderate-sized right-sided pleural effusion. CVS: Regular rate and rhythm, normal S1 and S2, no gallops, no murmurs, no rubs ABDOMEN: Soft, nontender. No hepatosplenomegaly, normal bowel sounds, no guarding or rigidity. EXTREMITIES: No clubbing, significant lower extremity edema, 2+ in bilateral lower extremities, no cyanosis, 2+ pulses and upper and lower extremities. MUSCULOSKELETAL: Muscle strength and tone normal. SPINE: No scoliosis or deformity SKIN: No rashes CENTRAL NERVOUS SYSTEM: Alert and oriented -3. No focal deficits, tone is normal in all 4 extremities. PSYCHIATRIC: Alert and oriented -3. Appropriate affect. Intact judgment and insight. Results - Laboratory Findings CBC and BMP: 05/22/23 09:40 05/22/23 09:40 ABG ABG pH 7.29 (7.35-7.45) L 05/21/23 15:15 ABG pCO2 81 mmHg (35-45) H* 05/21/23 15:15 ABG pO2 74 mmHg (83-108) L 05/21/23 15:15 ABG O2 Saturation 95.1 % (94-97) 05/21/23 15:15 PT/INR, D-dimer PT 10.0 sec (9.0-12.0) 05/21/23 14:10 INR 0.9 (<1.2) 05/21/23 14:10 Abnormal lab findings: Abnormal Labs 05/21/23 05/21/23 05/21/23 14:10 14:10 14:10 WBC 12.7 H RBC Hgb 11.8 L Hct MCHC 29.8 L RDW 15.6 H Neutrophils # 11.4 H Lymphocytes # 0.5 L ABG pH ABG pCO2 ABG pO2 ABG HCO3 ABG Total CO2 Sodium 135 L Chloride 90 L Carbon Dioxide 39 H Glucose 100 H Plasma Lactic Acid Benjie Alkaline Phosphatase 186 H Total Protein 5.9 L Albumin 3.3 L Ur Leukocyte Esterase Moderate H Urine WBC 9 H Urine Bacteria Occasional H Urine Mucus Rare H Ur Oxycodone Screen Detected H 05/21/23 05/21/23 05/22/23 15:15 17:08 09:40 WBC RBC 4.05 L Hgb 11.0 L Hct 36.8 L MCHC 30.0 L RDW 15.7 H Neutrophils # Lymphocytes # ABG pH 7.29 L ABG pCO2 81 H* ABG pO2 74 L ABG HCO3 39 H ABG Total CO2 42 H Sodium Chloride Carbon Dioxide Glucose Plasma Lactic Acid Benjie 0.5 L Alkaline Phosphatase Total Protein Albumin Ur Leukocyte Esterase Urine WBC Urine Bacteria Urine Mucus Ur Oxycodone Screen 05/22/23 09:40 WBC RBC Hgb Hct MCHC RDW Neutrophils # Lymphocytes # ABG pH ABG pCO2 ABG pO2 ABG HCO3 ABG Total CO2 Sodium 134 L Chloride 90 L Carbon Dioxide 37 H Glucose 105 H Plasma Lactic Acid Benjie Alkaline Phosphatase Total Protein Albumin Ur Leukocyte Esterase Urine WBC Urine Bacteria Urine Mucus Ur Oxycodone Screen - Diagnostic Findings Chest x-ray: image reviewed Assessment and Plan Plan: Acute on chronic hypoxic/hypercapnic respiratory failure with CO2 narcosis and altered mentation. Exacerbating factors could be fluid overload. The patient's chronic left-sided pleural effusion which remains essentially unchanged. He has signs of increased fluid overload. No reported aspiration. No clear signs of pneumonia. He was started on diuretics. He was also supported with BiPAP at a pressure of 16/8 cm of water and his mental status improved. Currently on 3 L Altered mentation due to CO2 narcosis, improved with BiPAP therapy and diuresis Right side pleural effusion , chronic, transudate on previous evaluations and drainage chronic DVT of the right leg, on xarelto anemia, normocytic History of A fib, current rhythm is sinus with bundle-branch block pattern, IV Asthma, COPD HIstory of CVA, TIA DM, type 2 History of DVT History of GERD History of GI bleed HIstory of DJD History of PE hypertension hyperlipidemia History of sleep apnea, the patient is known to have a trilogy ventilator at home. Does have a component of obesity hypoventilation syndrome. History of bilateral peripheral neuropathy History of MRSA super morbid obesity with a BMI of 66.1 History of bariatric surgery History of anxiety, depression, bipolar and schizoaffective disorder Remote history of nicotine dependence/ Plan Clinically improved and the patient is back on 3 L of oxygen by nasal cannula right-sided pleural effusion is chronic and was no thoracentesis at this point in time Restart diuretics and put the patient on Bumex 2 mg IV every 12 hours and the patient is producing adequate amount of urine output and Ferris catheter was inserted Continue anticoagulation Continue Aldactone Continue Diamox Monitor fluid balance Utilize BiPAP the same setting and allow the patient to bring his trilogy ventilator from home We'll continue to follow.
--- NOTE | 2023-05-22 13:56 | P.PN ---
Subjective Progress Note Date: 05/22/23 Patient is a 62-year-old male with PMH of atrial fibrillation, COPD, CHF, DVT/PE, ALEXIS, CKD stage III presents ED for altered mentation and difficulty breathing. It appears that patient was admitted at [facility] from 05/03-05/14 for CHF exacerbation. In the ED, patient required BiPAP 18/6 FiO2 of 60%. CBC showed WBC count of 12.7 and hemoglobin of 11.8. Coagulation panel within normal limits. ABG showed pH of 7.29, pCO2 of 81. CMP showed sodium 135, chloride of 90, bicarb of 39, glucose 100, alkaline phosphatase of 186, albumin of 3.3. Ammonia was 10. Troponin was less than 0.012. Urinalysis showed moderate leukocyte esterase with 9 WBC. UDS positive for oxycodone. Influenza, RSV, COVID-[address] brain showed no acute intracranial hemorrhage or ischemic changes. Chest x-ray showed moderate to large right pleural effusion with worsening patchy airspace opacity throughout the right upper lung. EKG showed sinus rhythm with ventricular rate of 81, Q waves in leads II and aVF. Patient is admitted for altered mentation and respiratory failure. Echo 09/18 shows preserved EF with severe diastolic dysfunction. Due to his mentation, initial plan was to transfer the patient to ICU. 05/22 Patient was seen and examined. No acute events overnight. Mentation significantly improved. Patient reports difficulty breathing and lower extremity swelling. CBC shows hemoglobin of 11. BMP shows sodium 134, chloride of 90, bicarbonate 37 and glucose of 105. Lactic acid is 0.5. Chest x-ray shows large right pleural effusion. Plans for 3S rather than ICU admission. General: Morbidly obese, no distress, appears at stated age Derm: warm, dry Head: atraumatic, normocephalic, symmetric Eyes: EOMI, no lid lag, anicteric sclera Cardiovascular: S1S2 reg, no murmur Lungs: Decreased breath sounds bilateral, no rhonchi, no rales , no accessory muscle use Abdominal: soft, nontender to palpation, no guarding, no appreciable organomegaly Ext: no gross muscle atrophy, 2-3+ pitting lower extremity edema, no contractures Neuro: No focal neurologic deficit Psych: Alert and oriented Acute metabolic encephalopathy Acute on chronic hypoxic hypercapnic respiratory failure Acute on chronic diastolic CHF exacerbation Large right pleural effusion Sepsis likely related to pneumonia Chronic conditions: Atrial fibrillation, COPD, CHF, DVT/PE, ALEXIS, CKD stage III Based on my assessment of this patient, this patient meets a high complexity level of care. Patient has an acute diagnosis of acute metabolic encephalopathy likely secondary to hypercapnic respiratory failure from pneumonia and pleural effusion that poses a threat to life or bodily function. Bronchodilators: DuoNeb 0.5mg-3mg/3ml scheduled and as needed for SOB and wheezing. Spiriva 1 puff daily. Pulmicort 0.5 INH BID. Antibiotics: Rocephin 1 g IV daily. Azithromycin 500 mg PO QD. Supplemental maintain O2 saturation greater than 92%. Telemetry monitoring. Sputum, Blood culture ordered. Echocardiogram ordered. Start Lasix 40 mg IV TID. Daily monitoring of renal function as Lasix can be nephrotoxic. Pulmonology and Cardiology consulted for further management of this patient. Xarelto for DVT prophylaxis. FULL CODE. I have reviewed the following resourcing consultant notes: I have reviewed the results of the following tests: CBC, BMP and lactic acid as above. I have ordered the following tests: Sputum, Blood culture pending. Echocardiogram pending. Repeat BMP tomorrow morning. I have discussed the care of this patient with the following independent historian: I have independently interpreted the following test below: Chest x-ray reviewed as above. I have discussed the management of this patient with the following physician: Objective - Vital Signs Vital signs: Vital Signs Temp 97.3 F L 05/22/23 07:20 Pulse 72 05/22/23 11:41 Resp 23 05/22/23 07:20 BP 107/71 05/22/23 07:20 Pulse Ox 94 L 05/22/23 07:20 FiO2 40 05/22/23 04:02 Intake & Output 05/21/23 05/22/23 05/22/23 18:59 06:59 18:59 Output Total 1825 Balance -1825 Weight 199.581 kg Output: Urine 1825 - Labs CBC & Chem 7: 05/22/23 09:40 05/22/23 09:40 Labs: Abnormal Lab Results - Last 24 Hours (Table) 05/21/23 05/21/23 05/21/23 Range/Units 14:10 14:10 14:10 WBC 12.7 H (3.8-10.6) k/uL RBC (4.30-5.90) m/uL Hgb 11.8 L (13.0-17.5) gm/dL Hct (39.0-53.0) % MCHC 29.8 L (31.0-37.0) g/dL RDW 15.6 H (11.5-15.5) % Neutrophils # 11.4 H (1.3-7.7) k/uL Lymphocytes # 0.5 L (1.0-4.8) k/uL ABG pH (7.35-7.45) ABG pCO2 (35-45) mmHg ABG pO2 (83-108) mmHg ABG HCO3 (21-25) mmol/L ABG Total CO2 (19-24) mmol/L Sodium 135 L (137-145) mmol/L Chloride 90 L (98-107) mmol/L Carbon Dioxide 39 H (22-30) mmol/L Glucose 100 H (74-99) mg/dL Plasma Lactic Acid Benjie (0.7-2.0) mmol/L Alkaline Phosphatase 186 H (38-126) U/L Total Protein 5.9 L (6.3-8.2) g/dL Albumin 3.3 L (3.5-5.0) g/dL Ur Leukocyte Esterase Moderate H (Negative) Urine WBC 9 H (0-5) /hpf Urine Bacteria Occasional H (None) /hpf Urine Mucus Rare H (None) /hpf Ur Oxycodone Screen Detected H (NotDetected) 05/21/23 05/21/23 05/22/23 Range/Units 15:15 17:08 09:40 WBC (3.8-10.6) k/uL RBC 4.05 L (4.30-5.90) m/uL Hgb 11.0 L (13.0-17.5) gm/dL Hct 36.8 L (39.0-53.0) % MCHC 30.0 L (31.0-37.0) g/dL RDW 15.7 H (11.5-15.5) % Neutrophils # (1.3-7.7) k/uL Lymphocytes # (1.0-4.8) k/uL ABG pH 7.29 L (7.35-7.45) ABG pCO2 81 H* (35-45) mmHg ABG pO2 74 L (83-108) mmHg ABG HCO3 39 H (21-25) mmol/L ABG Total CO2 42 H (19-24) mmol/L Sodium (137-145) mmol/L Chloride (98-107) mmol/L Carbon Dioxide (22-30) mmol/L Glucose (74-99) mg/dL Plasma Lactic Acid Benjie 0.5 L (0.7-2.0) mmol/L Alkaline Phosphatase (38-126) U/L Total Protein (6.3-8.2) g/dL Albumin (3.5-5.0) g/dL Ur Leukocyte Esterase (Negative) Urine WBC (0-5) /hpf Urine Bacteria (None) /hpf Urine Mucus (None) /hpf Ur Oxycodone Screen (NotDetected) 05/22/23 Range/Units 09:40 WBC (3.8-10.6) k/uL RBC (4.30-5.90) m/uL Hgb (13.0-17.5) gm/dL Hct (39.0-53.0) % MCHC (31.0-37.0) g/dL RDW (11.5-15.5) % Neutrophils # (1.3-7.7) k/uL Lymphocytes # (1.0-4.8) k/uL ABG pH (7.35-7.45) ABG pCO2 (35-45) mmHg ABG pO2 (83-108) mmHg ABG HCO3 (21-25) mmol/L ABG Total CO2 (19-24) mmol/L Sodium 134 L (137-145) mmol/L Chloride 90 L (98-107) mmol/L Carbon Dioxide 37 H (22-30) mmol/L Glucose 105 H (74-99) mg/dL Plasma Lactic Acid Benjie (0.7-2.0) mmol/L Alkaline Phosphatase (38-126) U/L Total Protein (6.3-8.2) g/dL Albumin (3.5-5.0) g/dL Ur Leukocyte Esterase (Negative) Urine WBC (0-5) /hpf Urine Bacteria (None) /hpf Urine Mucus (None) /hpf Ur Oxycodone Screen (NotDetected)
[2023-05-22] MEDS: SODIUM CHLORIDE 0.9% 1,000 ML IV SCH (15:58)
[2023-05-22] MEDS ORDERED: FUROSEMIDE 10 MG/ML 4 ML VIAL IV SCH (16:00)
[2023-05-22] MEDS: RIVAROXABAN 20 MG TAB PO SCH (20:08)
[2023-05-22] MEDS: OLANZapine 10 MG TAB PO SCH (20:08)
[2023-05-23] MEDS: IPRATROPIUM-ALBUTEROL 3 ML NEB INHALATION PRN ×2 (01:15→05:11)
[2023-05-23] MEDS: oxyCODONE-APAP 10-325MG 1 EACH TAB PO PRN ×4 (04:24→22:48)
[2023-05-23] MEDS: BUDESONIDE 0.5 MG/2 ML NEBU INHALATION SCH ×2 (07:38→19:42)
[2023-05-23] MEDS: IPRATROPIUM-ALBUTEROL 3 ML NEB INHALATION SCH ×4 (07:38→19:42)
[2023-05-23] MEDS: acetaZOLAMIDE 250 MG TAB PO SCH (09:59)
[2023-05-23] MEDS: BUMETANIDE 0.25 MG/ML 4 ML VIAL IVP SCH ×2 (09:59→20:54)
[2023-05-23] MEDS: SPIRONOLACTONE 25 MG TAB PO SCH (09:59)
[2023-05-23] MEDS: PANTOPRAZOLE 40 MG TABLET PO SCH (10:00)
[2023-05-23] MEDS: TAMSULOSIN 0.4 MG CAP.ER.24H PO SCH (10:00)
[2023-05-23] MEDS: METOPROLOL TARTRATE 25 MG TAB PO SCH ×2 (10:00→20:53)
[2023-05-23] MEDS: AZITHROMYCIN 500 MG TAB PO SCH (10:00)
[2023-05-23] MEDS: DULoxetine HCL 60 MG CAPSULE.DR PO SCH (10:00)
[2023-05-23] MEDS: allopurinoL 100 MG TAB PO SCH (11:14)
--- NOTE | 2023-05-23 11:44 | P.CRDCN ---
History of Present Illness Consult date: 05/23/23 Consult reason: congestive heart failure History of present illness: This is Kevin Salmon NP, I'm dictating on behalf of Dr. Borja's H&P and A&P The patient was interviewed and examined. HPI: Patient is a pleasant 62-year-old male who presented to the hospital with respiratory failure and pneumonia, and was also found to be in an acute ex acerbation of congestive heart failure. Patient reports that he's been increasingly short of breath, as well as some altered [facility]. This has progressed over the last few days. Patient was transported by EMS to the hospital for evaluation. Chest x-ray demonstrated what appeared to be a large effusion in the right lung which was also possibly pneumonia. Patient does have a history of congestive heart failure, and it was felt that this was part of the exacerbating factor of the pleural effusion. We were consulted to assist in managing the congestive heart failure. Patient has a pertinent past medical history that includes atrial fibrillation, asthma, hea rt failure, COPD, DVT, hyperlipidemia, hypertension, pneumonia, pulmonary embolus, and sleep apnea. Patient has a pertinent past surgical history includes appendectomy, bariatric surgery, cholecystectomy, heart catheterization, and hernia repair. Patient was interviewed and examined while lying in the bed. Patient reports that he is feeling slightly better this morning. He states that he is diuresing well, and the swelling appears to be better in his lower legs. He does also report that his breathing is better, but states that pulmonology would like to drain the fluid out of his lung. ROS: [No fever, chills, or rigors] [no cough, phlegm, or expectoration] [no nausea, vomiting, or diarrhea] [no hematuria, dysuria] [no musculoskelatal complaints] [no strokes or seizures] [no skin lesions] EXAMINATION: GENERAL: Well-appearing, well-nourished and in no acute distress. NECK: Supple without JVD or thyromegaly. LUNGS: Breath sounds diminished but clear to auscultation bilaterally. Re spiration equal and unlabored. No wheezes, rales or rhonchi. HEART: Regular rate and rhythm without murmurs, rubs or gallops. S1 and S2 heard. EXTREMITIES: Normal range of motion, no edema. No clubbing or cyanosis. Peripheral pulses intact and strong. REVIEW OF LABS, ECG & MEDICAL DATA: LABS: White count 8.6, hemoglobin 11.0, platelets 280, sodium 134, potassium 3.9, B1 19, creatinine 0.81, calcium 8.6, troponin less than 0.012, BNP 590 EKG: Normal sinus rhythm IMAGING: CT of the brain dated 05/21/2023 demonstrates prominent motion/calvarial and skull base artifact limiting the exam, no definite acute intracranial abnormality seen, consider MRI if symptoms persist, MRI can also assess for potential cerebellar tonsillar ectopic, measured at approximately 4 mm, probably benign cerebellar tonsillar ectopic, air fluid level right sphenoid sinus may be seen with acute sinusitis. Chest x-ray dated 05/21/2023 demonstrates ongoing moderate to large right pleural effusion with adjacent atelectasis/consolidation, worsening patchy airspace opacity throughout the right upper lung. Chest x-ray dated 05/22/2023 demonstrates increasing infiltrate right lung with underlying pleural effusion. VITALS: Temp 98.8, pulse 80, respirations 16, blood pressure 101/53, O2 saturation 98% on 3 L IMPRESSION: 1. Right upper lobe pneumonia 2. Large right pleural effusion with adjacent atelectasis 3. Exacerbation congestive heart failure PLAN: Continue current medical management. Continue currently prescribed cardiac medications. Once adequately diuresed, patient may be resumed on his oral diuretics. Continue to monitor electrolytes. Continue to monitor blood pressure. Further recommendations based on patient's clinical course. Thank you for the consult and allowing us to participate in the care of this patient. Past Medical History Past Medical History: Atrial Fibrillation, Asthma, Cancer, Heart Failure, COPD, Deep Vein Thrombosis (DVT), GERD/Reflux, GI Bleed, Hyperlipidemia, Hypertension, Osteoarthritis (OA), Pneumonia, Pulmonary Embolus (PE), Renal Disease, Respiratory Disorder, Sleep Apnea/CPAP/BIPAP Additional Past Medical History / Comment(s): +Covid 12-04- and early 2022, hx chronic CHF/abnormal ECHO-see report/paroxysmal afib/bilat pleural effusions w/ R sided thoracentesis. hypoglycemia. BLE neuropathy, colitis, chronic generalized pain, fluid retention, bedbound, hiatal hernia, DDD, scoliosis, ALEXIS w/ CPAP, CKD stage III, pseudoseizures - none in 1 year, basal cell skin cancer, BLE edema, CPAP and uses Home O2 24/7, SOB. History of Any Multi-Drug Resistant Organisms: MRSA Date of last positivie culture/infection: MRSA 09/05/21 MDRO Source:: LEG Past Surgical History: Appendectomy, Bariatric Surgery, Cholecystectomy, Heart Catheterization, Hernia Repair, Joint Replacement, Orthopedic Surgery Additional Past Surgical History / Comment(s): Gastric sleeve 2013, L inguinal hernia repair, R elbow surgery x2, total R hip arthroplasty, L knee arthroscopy/ACL surgery, R ankle ORIF, EGD, colonoscopy, basal cell skin cancer exc face, surgery for varicele,lt knee arthroscopy x2. Past Anesthesia/Blood Transfusion Reactions: Previous Problems w/ Anesthesia Additional Past Anesthesia/Blood Transfusion Reaction / Comment(s): STATES WAS TOLD HE WAS A DIFFICULT INTUBATION WITH GASTRIC SLEEVE SURGERY, no problems with gallbladder surgery after gastric sleeve surgery in Aug 2021 Past Psychological History: Anxiety, Bipolar, Depression, Panic Disorder, Schizoaffective Disorder Additional Psychological History / Comment(s): Pt resides with his son and daughter. He has help with PT/OT at home. He states he has been bedbound past 4 years. Minimal weigh bearing and requires assistance to move. He is unable to sit up independantly. He will call EMS transfer for appointments. Pt states he gets paranoid at times. Smoking Status: Former smoker Past Alcohol Use History: None Reported Additional Past Alcohol Use History / Comment(s): STARTED SMOKING AT AGE 15, QUIT SMOKING 1998, smoked 4 cigerettes- 1PPD. FORMER ETOH ABUSE. Pt states QUIT 1997 Past Drug Use History: None Reported Additional Drug Use History / Comment(s): PAST HX OF MARIJUANA USE, DENIES USE IN YEARS. - Past Family History Father Family Medical History: Cancer Additional Family Medical History / Comment(s): LUNG CA Mother Family Medical History: Coronary Artery Disease (CAD) Additional Family Medical History / Comment(s): Mother of an infection. Medications and Allergies Home Medications Medication Instructions Recorded Confirmed Type Rivaroxaban [Xarelto] 20 mg PO HS 07/14/19 05/21/23 History OLANZapine 20 mg PO HS 10/29/20 05/21/23 History Omeprazole 20 mg PO DAILY 03/27/21 05/21/23 History DULoxetine HCL [Cymbalta] 60 mg PO DAILY 09/05/21 05/21/23 History Albuterol Sulfate [Ventolin HFA] 1 - 2 puff INHALATION RT-Q6H PRN 10/28/21 05/21/23 History Tamsulosin HCl [Flomax] 0.4 mg PO DAILY 10/28/21 05/21/23 History Tiotropium 2.5 Mcg/Puff [Spiriva 2 puff INHALATION RT-DAILY 10/28/21 05/21/23 History Respimat 2.5 Mcg] Cholecalciferol [Vitamin D3 (25 25 mcg PO DAILY 09/09/22 05/21/23 History Mcg = 1000 Iu)] Metoprolol Tartrate [Lopressor] 25 mg PO BID 09/09/22 05/21/23 History Spironolactone [Aldactone] 25 mg PO DAILY 09/09/22 05/21/23 History allopurinoL [Zyloprim] 100 mg PO DAILY 09/09/22 05/21/23 History Budesonide [Pulmicort] 0.5 mg INHALATION RT-BID 03/17/23 05/21/23 History Docusate [Colace] 100 mg PO DAILY PRN 03/17/23 05/21/23 History Ipratropium-Albuterol Nebulize 3 ml INHALATION RT-QID 03/17/23 05/21/23 History [Duoneb 0.5 mg-3 mg/3 ml Soln] Potassium Chloride ER [K-Dur 20] 20 meq PO DAILY 03/17/23 05/21/23 History oxyCODONE-APAP 10-325MG [Percocet 1 tab PO Q6H PRN 03/17/23 05/21/23 History 10-325 mg] Bumetanide [BUMEX] 2 mg PO DAILY 05/21/23 05/21/23 History Ferrous Sulfate [Iron] 325 mg PO DAILY 05/21/23 05/21/23 History Lactulose [Constulose] 20 gm PO BID PRN 05/21/23 05/21/23 History acetaZOLAMIDE [Diamox Sequels] 500 mg PO DAILY 05/21/23 05/21/23 History Allergies Allergy/AdvReac Type Severity Reaction Status Date / Time codeine Allergy Severe Swelling Verified 05/21/23 16:28 OF THROAT WITH COUGH SYRUP allopurinol Allergy Unknown Verified 05/21/23 16:28 chlorpheniramine Allergy Unknown Verified 05/21/23 16:28 febuxostat [From Uloric] Allergy Unknown Verified 05/21/23 16:28 phenylephrine Allergy Unknown Verified 05/21/23 16:28 piperacillin sodium Allergy Unknown Verified 05/21/23 16:28 [From Zosyn] sulfamethoxazole Allergy Unknown Verified 05/21/23 16:28 [From Bactrim] tazobactam sodium Allergy Unknown Verified 05/21/23 16:28 [From Zosyn] trimethoprim [From Bactrim] Allergy Unknown Verified 05/21/23 16:28 buspirone [From BuSpar] AdvReac Rapid Verified 05/21/23 16:28 Heart Rate Physical Exam Vitals: Vital Signs Temp Pulse Pulse Resp BP BP Pulse Ox 05/23/23 11:20 70 05/23/23 11:08 74 05/23/23 08:00 98.8 F 80 16 101/53 98 05/23/23 07:58 88 05/23/23 07:38 84 97 05/23/23 05:23 60 05/23/23 05:11 68 05/23/23 04:00 76 20 110/59 95 05/23/23 02:00 20 05/23/23 01:26 60 05/23/23 01:15 59 L 05/23/23 00:00 64 20 106/61 98 05/22/23 21:14 70 05/22/23 20:56 73 05/22/23 20:00 97.8 F 74 18 122/62 97 05/22/23 17:59 97.9 F 78 18 126/68 96 05/22/23 17:03 80 20 131/74 98 05/22/23 15:21 72 05/22/23 15:10 70 05/22/23 11:41 72 FiO2 05/23/23 11:20 05/23/23 11:08 05/23/23 08:00 05/23/23 07:58 05/23/23 07:38 05/23/23 05:23 05/23/23 05:11 40 05/23/23 04:00 05/23/23 02:00 05/23/23 01:26 05/23/23 01:15 40 05/23/23 00:00 05/22/23 21:14 05/22/23 20:56 40 05/22/23 20:00 05/22/23 17:59 05/22/23 17:03 05/22/23 15:21 05/22/23 15:10 05/22/23 11:41 Intake and Output 05/22/23 05/23/23 05/23/23 22:59 06:59 14:59 Intake Total 780 Output Total 1500 1150 850 Balance -1500 -1150 -70 Intake: Oral 780 Output: Urine 1500 1150 850 Other: Voiding Method Indwelling Catheter Indwelling Catheter Weight 199.581 kg Results 05/22/23 09:40 05/22/23 09:40 Current Medications Generic Name Dose Route Start Last Admin Trade Name Freq PRN Reason Stop Dose Admin Acetazolamide 500 mg 05/22/23 09:00 05/23/23 09:59 Acetazolamide 250 Mg Tab PO 500 mg DAILY YUN Administration Albuterol/Ipratropium 3 ml 05/21/23 20:00 05/23/23 11:07 Ipratropium-Albuterol 3 Ml Neb INHALATION 3 ml RT-QID YUN Administration Albuterol/Ipratropium 3 ml 05/21/23 16:22 05/23/23 05:11 Ipratropium-Albuterol 3 Ml Neb INHALATION 3 ml RT-Q4H PRN Administration shortness of breath Allopurinol 100 mg 05/22/23 09:00 05/23/23 11:14 Allopurinol 100 Mg Tab PO Not Given DAILY YUN Budesonide 0.5 mg 05/21/23 20:00 05/23/23 07:38 Budesonide 0.5 Mg/2 Ml Nebu INHALATION 0.5 mg RT-BID YUN Administration Bumetanide 2 mg 05/21/23 21:00 05/23/23 09:59 Bumetanide 0.25 Mg/Ml 4 Ml Vial IVP 2 mg BID YUN Administration Duloxetine HCl 60 mg 05/22/23 09:00 05/23/23 10:00 Duloxetine Hcl 60 Mg Capsule.Dr PO 60 mg DAILY YUN Administration Sodium Chloride 1,000 mls @ 20 mls/hr 05/21/23 16:30 05/22/23 15:58 Saline 0.9% IV 20 mls/hr .Q24H YUN Administration Ceftriaxone Sodium 2 gm/ 50 mls @ 100 mls/hr 05/22/23 09:00 05/23/23 09:59 Sodium Chloride IVPB 05/25/23 09:29 100 mls/hr Q24HR YUN Administration Protocol Metoprolol Tartrate 25 mg 05/21/23 21:00 05/23/23 10:00 Metoprolol Tartrate 25 Mg Tab PO 25 mg BID YUN Administration Miscellaneous Information 1 each 05/21/23 16:22 Pneumonia Protocol Utilized 1 Each Misc PO ONCE PRN Per Protocol Olanzapine 20 mg 05/21/23 21:00 05/22/23 20:08 Olanzapine 10 Mg Tab PO 20 mg HS YUN Administration Oxycodone/Acetaminophen 1 each 05/21/23 16:40 05/23/23 10:00 Oxycodone-Apap 10-325mg 1 Each Tab PO 1 each Q6H PRN Administration Pain Pantoprazole Sodium 40 mg 05/22/23 09:00 05/23/23 10:00 Pantoprazole 40 Mg Tablet PO 40 mg DAILY YUN Administration Rivaroxaban 20 mg 05/21/23 21:00 05/22/23 20:08 Rivaroxaban 20 Mg Tab PO 20 mg HS YUN Administration Protocol Spironolactone 25 mg 05/22/23 09:00 05/23/23 09:59 Spironolactone 25 Mg Tab PO 25 mg DAILY YUN Administration Tamsulosin HCl 0.4 mg 05/22/23 09:00 05/23/23 10:00 Tamsulosin 0.4 Mg Cap.Er.24h PO 0.4 mg DAILY YUN Administration Intake and Output 05/22/23 05/23/23 05/23/23 22:59 06:59 14:59 Intake Total 780 Output Total 1500 1150 850 Balance -1500 -1150 -70 Intake: Oral 780 Output: Urine 1500 1150 850 Other: Voiding Method Indwelling Catheter Indwelling Catheter Weight 199.581 kg 05/22/23 09:40 05/22/23 09:40
--- NOTE | 2023-05-23 12:48 | P.PN ---
Subjective Progress Note Date: 05/23/23 60-year-old mentation is coming into the hospital because of worsening shortness of breath and altered mentation. The patient was quite obtunded at time of admission. He was in acute on top of chronic hypoxic and hypercapnic respiratory failure. The patient was placed on a BiPAP at a pressure of 18/6 7 m of water and FiO2 of 60% and he was kept on a BiPAP throughout the night. His initial blood gas showed a pH of 7.29 with a pCO2 of 81. His urine just was positive for oxycodone. No history of any drug overdose. His Covid 19 testing was negative, influenza and RSV was negative. CAT scan of the brain showed no evidence of any acute changes. The chest x-ray showed a moderate sized right-sided pleural effusion along with patchy airspace disease involving the right lung which is a chronic finding. His echocardiogram from 2020 that showed a preserved LV function with severe diastolic dysfunction. Based on that the patient was hospitalized. This morning, so the patient in emergency department. The patient's condition is stable and awake and alert and is only on 3 L of oxygen by nasal cannula. He was able to communicate without any major difficulties. He had increased edema lower extremity is bilaterally. Is known to me from previous hospital admissions and the patient has chronic right-sided pleural effusion and he has undergone thoracentesis 2 in the past and his previous thoracentesis was done on 08/04/2019 with a total of 950 mL of fluid was removed and subsequently on 09/12/2019. The fluid has been a transudate on previous evaluations.Patient has an extensive medical history, including chronic hypercapnic respiratory failure related to obesity hypoventilation syndrome, and patient has a Trilogy ventilator at home, on AVAPS mode with TTV 550 ml, Max PSV 25, Min PSV 5, Max EPAP 10, Min EPAP 5. History of pulmonary embolism and previous history of DVT, paroxysmal atrial fibrillation , gait dysfunction, patient is chronically bedbound, chronic pain syndrome, diabetes type II with diabetic neuropathy, history of chronic kidney disease, unspecified, morbid obe sity with previous history of gastric sleeve surgery in 2013, history of COPD, former smoker, anxiety, depression, panic disorder, history of chronic CHF, cor pulmonale, his previous echocardiogram from October 2020 showed EF of 55-60%, mild MR, mild TR, severe pulmonary hypertension with PA systolic of 55.7 mmHg On 05/23/2023, the patient is doing well. The patient is on Bumex 2 mg IV every 12 hours and the patient has produced more than the 4 L of negative fluid balance over the past 24 hours. Remains on Aldactone. Remains on Diamox. He wants his Ferris catheter removed. Meanwhile, no new labs are available from today. His proBNP level was 590. Legionella urine antigen was negative. Is afebrile. Lower extremity edema is improving. He is on 3 L of oxygen by nasal cannula. I asked him to bring in his trilogy ventilator from home. Objective - Vital Signs Vital signs: Vital Signs Temp 97.8 F 05/22/23 20:00 Pulse 88 05/23/23 07:58 Resp 20 05/23/23 04:00 BP 110/59 05/23/23 04:00 Pulse Ox 97 05/23/23 07:38 FiO2 40 05/23/23 05:11 Intake & Output 05/22/23 05/23/23 05/23/23 18:59 06:59 18:59 Intake Total 780 Output Total 1500 2650 850 Balance -1500 -2650 -70 Weight 199.581 kg Intake: Oral 780 Output: Urine 1500 2650 850 Other: Voiding Method Indwelling Catheter - Exam GENERAL EXAM: Alert, very pleasant, 60-year-old morbidly obese white male, on 3 L of oxygen with a pulse ox between 92-96%, resting on the gurney in the emergency department oriented 3, comfortable in no apparent distress. HEAD: Normocephalic/atraumatic. EYES: Normal reaction of pupils, equal size. Conjunctiva pink, sclera white. NOSE: Clear with pink turbinates. THROAT: No erythema or exudates. NECK: No masses, no JVD, no thyroid enlargement, no adenopathy. CHEST: No chest wall deformity. Symmetrical expansion. LUNGS: Equal air entry with no crackles, wheeze, rhonchi or dullness. There are diminished breath on the right lung base as the patient is known to have recurrent moderate-sized right-sided pleural effusion. CVS: Regular rate and rhythm, normal S1 and S2, no gallops, no murmurs, no rubs ABDOMEN: Soft, nontender. No hepatosplenomegaly, normal bowel sounds, no guarding or rigidity. EXTREMITIES: No clubbing, significant lower extremity edema, 2+ in bilateral lower extremities, no cyanosis, 2+ pulses and upper and lower extremities. MUSCULOSKELETAL: Muscle strength and tone normal. SPINE: No scoliosis or deformity SKIN: No rashes CENTRAL NERVOUS SYSTEM: Alert and oriented -3. No focal deficits, tone is normal in all 4 extremities. PSYCHIATRIC: Alert and oriented -3. Appropriate affect. Intact judgment and insight. - Labs CBC & Chem 7: 05/22/23 09:40 05/22/23 09:40 Labs: Abnormal Lab Results - Last 24 Hours (Table) 05/22/23 Range/Units 09:40 Sodium 134 L (137-145) mmol/L Chloride 90 L (98-107) mmol/L Carbon Dioxide 37 H (22-30) mmol/L Glucose 105 H (74-99) mg/dL Assessment and Plan Plan: Acute on chronic hypoxic/hypercapnic respiratory failure with CO2 narcosis and altered mentation. Exacerbating factors could be fluid overload. The patient's chronic left-sided pleural effusion which remains essentially unchanged. He has signs of increased fluid overload. No reported aspiration. No clear signs of pneumonia. He was started on diuretics. He was also supported with BiPAP at a pressure of 16/8 cm of water and his mental status improved. Currently on 3 L Altered mentation due to CO2 narcosis, improved with BiPAP therapy and diuresis Right side pleural effusion , chronic, transudate on previous evaluations and drainage chronic DVT of the right leg, on xarelto anemia, normocytic History of A fib, current rhythm is sinus with bundle-branch block pattern, IV Asthma, COPD HIstory of CVA, TIA DM, type 2 History of DVT History of GERD History of GI bleed HIstory of DJD History of PE hypertension hyperlipidemia History of sleep apnea, the patient is known to have a trilogy ventilator at home. Does have a component of obesity hypoventilation syndrome. History of bilateral peripheral neuropathy History of MRSA super morbid obesity with a BMI of 66.1 History of bariatric surgery History of anxiety, depression, bipolar and schizoaffective disorder Remote history of nicotine dependence/ Plan Clinically improved and the patient is back on 3 L of oxygen by nasal cannula The patient is diuresing with IV Bumex Patient is negative fluid balance right-sided pleural effusion is chronic and was no thoracentesis at this point in time Continue diuretics and put the patient on Bumex 2 mg IV every 12 hours and the patient is producing adequate amount of urine output Ferris cath will be discontinued Continue anticoagulation Continue Aldactone Continue Diamox Monitor fluid balance Utilize BiPAP the same setting and allow the patient to bring his trilogy ventilator from home We'll continue to follow.
--- NOTE | 2023-05-23 12:51 | CA ---
Transthoracic Echo Report Name: Donavon Saha Age: 62 Gender: M : 1960 Exam Date: 05/22/2023 13:13 Exam Location: [facility] Ht (in): 75 Wt (lb): 440 Ordering Physician: Sven Hawthorne MD Attending/Referring Phys: Amphibian Crewmember Marika Grimaldo RDCS Procedure CPT: Indications: pleural effusion Cardiac Hx: Technical Quality: Fair Contrast 1: Total Dose (mL): Contrast 2: Total Dose (mL): MEASUREMENTS (Male / Female) Normal Values 2D ECHO LV Diastolic Diameter PLAX 6.0 cm 4.2 - 5.9 / 3.9 - 5.3 cm LV Systolic Diameter PLAX 3.7 cm IVS Diastolic Thickness 1.6 cm 0.6 - 1.0 / 0.6 - 0.9 cm LVPW Diastolic Thickness 1.9 cm 0.6 - 1.0 / 0.6 - 0.9 cm LV Relative Wall Thickness 0.6 LA Volume 124.4 cm??? 18 - 58 / 22 - 52 cm??? M-MODE Aortic Root Diameter MM 4.2 cm LA Systolic Diameter MM 5.0 cm LA Ao Ratio MM 1.2 AV Cusp Separation MM 2.6 cm DOPPLER AV Peak Velocity 167.4 cm/s AV Peak Gradient 11.2 mmHg AV Mean Velocity 120.7 cm/s AV Mean Gradient 6.5 mmHg AV Velocity Time Integral 31.2 cm AI Peak Velocity 451.0 cm/s AI Peak Gradient 81.4 mmHg AI Pressure Half Time 700.4 ms LVOT Peak Velocity 95.9 cm/s LVOT Peak Gradient 3.7 mmHg LVOT Velocity Time Integral 18.7 cm MV Area PHT 3.4 cm??? Mitral E Point Velocity 61.3 cm/s Mitral A Point Velocity 88.0 cm/s Mitral E to A Ratio 0.7 MV Deceleration Time 220.2 ms MV E' Velocity 5.5 cm/s Mitral E to MV E' Ratio 11.1 TR Peak Velocity 329.1 cm/s TR Peak Gradient 43.3 mmHg Right Ventricular Systolic Press 48.3 mmHg FINDINGS Left Ventricle Moderately increased left ventricular wall thickness. Left ventricular cavity size normal. Normal left ventricular systolic function with no obvious regional wall motion abnormalities. Left ventricular ejection fraction is estimated at 50-55 %. Right Ventricle Right ventricle not well visualized. Moderate pulmonary hypertension. Right ventricular systolic pressure estimated at 48 mm hg. Right Atrium Right atrium not well visualized. Left Atrium Severely increased left atrial volume. Moderately increased left atrial area. Mitral Valve Structurally normal mitral valve. Mild mitral annular calcification. Mild-to- moderate mitral regurgitation. Aortic Valve Diffuse thickening (sclerosis) of the aortic valve cusps without reduced excursion. No aortic stenosis. [id number] aortic regurgitation. Tricuspid Valve Structurally normal tricuspid valve. Mild tricuspid regurgitation. Pulmonic Valve Trace pulmonic regurgitation. Pericardium No pericardial effusion. Aorta Normal size aortic root and proximal ascending aorta. CONCLUSIONS Left ventricle ejection fraction 50-55% Dilated right ventricle with elevated right ventricular systolic pressures Previewed by: Dr. Hugh Borja MD (Electronically Signed) Final Date: 23 May 2023 12:51
[2023-05-23] MEDS: VANCOMYCIN 2,500 MG in SODIUM CHLORIDE 0.9% 500 ML 500 ML IVPB SCH ×2 (14:01→20:53)
--- NOTE | 2023-05-23 14:45 | P.PN ---
Subjective Progress Note Date: 05/23/23 Patient is a 62-year-old male with PMH of atrial fibrillation, COPD, CHF, DVT/PE, ALEXIS, CKD stage III presents ED for altered mentation and difficulty breathing. It appears that patient was admitted at [facility] from 05/03-05/14 for CHF exacerbation. In the ED, patient required BiPAP 18/6 FiO2 of 60%. CBC showed WBC count of 12.7 and hemoglobin of 11.8. Coagulation panel within normal limits. ABG showed pH of 7.29, pCO2 of 81. CMP showed sodium 135, chloride of 90, bicarb of 39, glucose 100, alkaline phosphatase of 186, albumin of 3.3. Ammonia was 10. Troponin was less than 0.012. Urinalysis showed moderate leukocyte esterase with 9 WBC. UDS positive for oxycodone. Influenza, RSV, COVID-[address] brain showed no acute intracranial hemorrhage or ischemic changes. Chest x-ray showed moderate to large right pleural effusion with worsening patchy airspace opacity throughout the right upper lung. EKG showed sinus rhythm with ventricular rate of 81, Q waves in leads II and aVF. Patient is admitted for altered mentation and respiratory failure. Echo 09/18 shows preserved EF with severe diastolic dysfunction. Due to his mentation, initial plan was to transfer the patient to ICU. 05/22 Patient was seen and examined. No acute events overnight. Mentation significantly improved. Patient reports difficulty breathing and lower extremity swelling. CBC shows hemoglobin of 11. BMP shows sodium 134, chloride of 90, bicarbonate 37 and glucose of 105. Lactic acid is 0.5. Chest x-ray shows large right pleural effusion. Plans for 3S rather than ICU admission. 05/23 Patient was seen and examined. Patient reports no changes in his breathing. He is currently on Bumex 2 mg IV twice a day. Diuresing well, -4.15 L over the past 24 hours. Blood cultures positive for gram-positive cocci 2. General: Morbidly obese, no distress, appears at stated age Derm: warm, dry Head: atraumatic, normocephalic, symmetric Eyes: EOMI, no lid lag, anicteric sclera Cardiovascular: S1S2 reg, no murmur Lungs: Decreased breath sounds bilateral, no rhonchi, no rales , no accessory muscle use Abdominal: soft, nontender to palpation, no guarding, no appreciable organomegaly Ext: no gross muscle atrophy, 2-3+ pitting lower extremity edema, no contractures Neuro: No focal neurologic deficit Psych: Alert and oriented Gram-positive bacteremia Acute metabolic encephalopathy Acute on chronic hypoxic hypercapnic respiratory failure Acute on chronic diastolic CHF exacerbation Large right pleural effusion Sepsis likely related to pneumonia Chronic conditions: Atrial fibrillation, COPD, CHF, DVT/PE, ALEXIS, CKD stage III Based on my assessment of this patient, this patient meets a high complexity level of care. Patient has an acute diagnosis of acute metabolic encephalopathy likely secondary to hypercapnic respiratory failure from pneumonia and pleural effusion that poses a threat to life or bodily function. Blood cultures are positive for gram + cocci. Bronchodilators: DuoNeb 0.5mg-3mg/3ml scheduled and as needed for SOB and wheezing. Spiriva 1 puff daily. Pulmicort 0.5 INH BID. Antibiotics: Vancomycin IV dosed by pharmacy. Supplemental maintain O2 saturation greater than 92%. Telemetry monitoring. Sputum culture shows PMNs Blood culture from 05/21 shows gram + cocci Echocardiogram shows EF 50-55% with moderate LV thickness and moderate pulmonary HTN. Continue Bumex 2 mg IV BID. Daily monitoring of renal function as Lasix and Vancomycin can be nephrotoxic. Pulmonology and Cardiology on board. ID consulted for bacteremia. Chantel for DVT prophylaxis. FULL CODE. I have reviewed the following practice consultant notes: Pulmonology and Cardiology note reviewed as above. I have reviewed the results of the following tests: Echocardiogram, Sputum, Blood culture as above. I have ordered the following tests: Repeat BMP tomorrow morning. I have discussed the care of this patient with the following independent historian: I have independently interpreted the following test below: I have discussed the management of this patient with the following physician: Objective - Vital Signs Vital signs: Vital Signs Temp 98.8 F 05/23/23 08:00 Pulse 70 05/23/23 11:20 Resp 16 05/23/23 08:00 BP 101/53 05/23/23 08:00 Pulse Ox 98 05/23/23 08:00 FiO2 40 05/23/23 05:11 Intake & Output 05/22/23 05/23/23 05/23/23 18:59 06:59 18:59 Intake Total 780 Output Total 1500 2650 850 Balance -1500 -2650 -70 Weight 199.581 kg Intake: Oral 780 Output: Urine 1500 2650 850 Other: Voiding Method Indwelling Catheter - Labs CBC & Chem 7: 05/22/23 09:40 05/22/23 09:40 Labs: Microbiology - Last 24 Hours (Table) 05/22/23 15:10 Gram Stain - Preliminary Sputum 05/21/23 17:08 Blood Culture Gram Stain - Preliminary Blood 05/21/23 16:50 Blood Culture Gram Stain - Preliminary Blood
[2023-05-23] MEDS: SODIUM CHLORIDE 0.9% 1,000 ML IV SCH (17:36)
[2023-05-23] MEDS: RIVAROXABAN 20 MG TAB PO SCH (20:53)
[2023-05-23] MEDS: OLANZapine 10 MG TAB PO SCH (20:53)
--- NOTE | 2023-05-23 22:41 | P.CONS ---
History of Present Illness - Reason for Consult Consult date: 05/23/23 - History of Present Illness Patient is a 62-year-old male with multiple comorbidities including atrial fibrillation COPD CHF DVT PE has been brought into the hospital few days ago for evaluation of altered mentation and difficulty breathing apparently the patient's symptom has been going on for few days before presenting to the hospital has been complaining of mostly shortness of breath no significant chest pain did have mild cough but no sputum production on presentation to the hospital but he did have low-grade fever 100.4 F patient was hypoxic and is currently on 3 L nasal cannula oxygen satting around 96% patient did have white count 4.7 with a left shift on admission however normalized as of yesterday no CBC was done today patient did have a normal BUN and creatinine levels labs are normal troponin is negative urine mildly positive urine testing was positive for oxycodone influenza RSV COVID and Legionella testing was negative sputum cultures obtained currently pending blood cultures coming back positive with gram-positive cocci in clusters I have patient did have a chest x-ray right lung infiltrate and underlying effusion patient was initially on Rocephin has been switched over to vancomycin infectious he was consulted for further management of antibiotic therapy Past Medical History Past Medical History: Atrial Fibrillation, Asthma, Cancer, Heart Failure, COPD, Deep Vein Thrombosis (DVT), GERD/Reflux, GI Bleed, Hyperlipidemia, Hypertension, Osteoarthritis (OA), Pneumonia, Pulmonary Embolus (PE), Renal Disease, Respiratory Disorder, Sleep Apnea/CPAP/BIPAP Additional Past Medical History / Comment(s): +Covid -- and early 2022, hx chronic CHF/abnormal ECHO-see report/paroxysmal afib/bilat pleural effusions w/ R sided thoracentesis. hypoglycemia. BLE neuropathy, colitis, chronic generalized pain, fluid retention, bedbound, hiatal hernia, DDD, scoliosis, ALEXIS w/ CPAP, CKD stage III, pseudoseizures - none in 1 year, basal cell skin cancer, BLE edema, CPAP and uses Home O2 21/06, SOB. History of Any Multi-Drug Resistant Organisms: MRSA Year Discovered:: MRSA 09/05/21 MDRO Source:: LEG Past Surgical History: Appendectomy, Bariatric Surgery, Cholecystectomy, Heart Catheterization, Hernia Repair, Joint Replacement, Orthopedic Surgery Additional Past Surgical History / Comment(s): Gastric sleeve 2013, L inguinal hernia repair, R elbow surgery x2, total R hip arthroplasty, L knee arthroscopy/ACL surgery, R ankle ORIF, EGD, colonoscopy, basal cell skin cancer exc face, surgery for varicele,lt knee arthroscopy x2. Past Anesthesia/Blood Transfusion Reactions: Previous Problems w/ Anesthesia Additional Past Anesthesia/Blood Transfusion Reaction / Comm: STATES WAS TOLD HE WAS A DIFFICULT INTUBATION WITH GASTRIC SLEEVE SURGERY, no problems with gallbladder surgery after gastric sleeve surgery in Aug 2021 Past Psychological History: Anxiety, Bipolar, Depression, Panic Disorder, Schizoaffective Disorder Additional Psychological History / Comment(s): Pt resides with his son and daughter. He has help with PT/OT at home. He states he has been bedbound past 4 years. Minimal weigh bearing and requires assistance to move. He is unable to sit up independantly. He will call EMS transfer for appointments. Pt states he gets paranoid at times. Smoking Status: Former smoker Past Alcohol Use History: None Reported Additional Past Alcohol Use History / Comment(s): STARTED SMOKING AT AGE 15, QUIT SMOKING 1998, smoked 4 cigerettes- 1PPD. FORMER ETOH ABUSE. Pt states QUIT 1997 Past Drug Use History: None Reported Additional Drug Use History / Comment(s): PAST HX OF MARIJUANA USE, DENIES USE IN YEARS. - Past Family History Father Family Medical History: Cancer Additional Family Medical History / Comment(s): LUNG CA Mother Family Medical History: Coronary Artery Disease (CAD) Additional Family Medical History / Comment(s): Mother of an infection. Medications and Allergies Home Medications Medication Instructions Recorded Confirmed Type Rivaroxaban [Xarelto] 20 mg PO HS 07/14/19 05/21/23 History OLANZapine 20 mg PO HS 10/29/20 05/21/23 History Omeprazole 20 mg PO DAILY 03/27/21 05/21/23 History DULoxetine HCL [Cymbalta] 60 mg PO DAILY 09/05/21 05/21/23 History Albuterol Sulfate [Ventolin HFA] 1 - 2 puff INHALATION RT-Q6H PRN 10/28/21 05/21/23 History Tamsulosin HCl [Flomax] 0.4 mg PO DAILY 10/28/21 05/21/23 History Tiotropium 2.5 Mcg/Puff [Spiriva 2 puff INHALATION RT-DAILY 10/28/21 05/21/23 History Respimat 2.5 Mcg] Cholecalciferol [Vitamin D3 (25 25 mcg PO DAILY 09/09/22 05/21/23 History Mcg = 1000 Iu)] Metoprolol Tartrate [Lopressor] 25 mg PO BID 09/09/22 05/21/23 History Spironolactone [Aldactone] 25 mg PO DAILY 09/09/22 05/21/23 History allopurinoL [Zyloprim] 100 mg PO DAILY 09/09/22 05/21/23 History Budesonide [Pulmicort] 0.5 mg INHALATION RT-BID 03/17/23 05/21/23 History Docusate [Colace] 100 mg PO DAILY PRN 03/17/23 05/21/23 History Ipratropium-Albuterol Nebulize 3 ml INHALATION RT-QID 03/17/23 05/21/23 History [Duoneb 0.5 mg-3 mg/3 ml Soln] Potassium Chloride ER [K-Dur 20] 20 meq PO DAILY 03/17/23 05/21/23 History oxyCODONE-APAP 10-325MG [Percocet 1 tab PO Q6H PRN 03/17/23 05/21/23 History 10-325 mg] Bumetanide [BUMEX] 2 mg PO DAILY 05/21/23 05/21/23 History Ferrous Sulfate [Iron] 325 mg PO DAILY 05/21/23 05/21/23 History Lactulose [Constulose] 20 gm PO BID PRN 05/21/23 05/21/23 History acetaZOLAMIDE [Diamox Sequels] 500 mg PO DAILY 05/21/23 05/21/23 History Allergies Allergy/AdvReac Type Severity Reaction Status Date / Time codeine Allergy Severe Swelling Verified 05/21/23 16:28 OF THROAT WITH COUGH SYRUP allopurinol Allergy Unknown Verified 05/21/23 16:28 chlorpheniramine Allergy Unknown Verified 05/21/23 16:28 febuxostat [From Uloric] Allergy Unknown Verified 05/21/23 16:28 phenylephrine Allergy Unknown Verified 05/21/23 16:28 piperacillin sodium Allergy Unknown Verified 05/21/23 16:28 [From Zosyn] sulfamethoxazole Allergy Unknown Verified 05/21/23 16:28 [From Bactrim] tazobactam sodium Allergy Unknown Verified 05/21/23 16:28 [From Zosyn] trimethoprim [From Bactrim] Allergy Unknown Verified 05/21/23 16:28 buspirone [From BuSpar] AdvReac Rapid Verified 05/21/23 16:28 Heart Rate Physical Exam Vitals: Vital Signs Temp Pulse Pulse Resp BP BP Pulse Ox 05/23/23 11:20 70 05/23/23 11:08 74 05/23/23 08:00 98.8 F 80 16 101/53 98 05/23/23 07:58 88 05/23/23 07:38 84 97 05/23/23 05:23 60 05/23/23 05:11 68 05/23/23 04:00 76 20 110/59 95 05/23/23 02:00 20 05/23/23 01:26 60 05/23/23 01:15 59 L 05/23/23 00:00 64 20 106/61 98 05/22/23 21:14 70 05/22/23 20:56 73 05/22/23 20:00 97.8 F 74 18 122/62 97 05/22/23 17:59 97.9 F 78 18 126/68 96 05/22/23 17:03 80 20 131/74 98 05/22/23 15:21 72 05/22/23 15:10 70 FiO2 05/23/23 11:20 05/23/23 11:08 05/23/23 08:00 05/23/23 07:58 05/23/23 07:38 05/23/23 05:23 05/23/23 05:11 40 05/23/23 04:00 05/23/23 02:00 05/23/23 01:26 05/23/23 01:15 40 05/23/23 00:00 05/22/23 21:14 05/22/23 20:56 40 05/22/23 20:00 05/22/23 17:59 05/22/23 17:03 05/22/23 15:21 05/22/23 15:10 Intake and Output 05/22/23 05/23/23 05/23/23 22:59 06:59 14:59 Intake Total 780 Output Total 1500 1150 850 Balance [id number] Intake: Oral 780 Output: Urine 1500 1150 850 Other: Voiding Method Indwelling Catheter Indwelling Catheter Weight 199.581 kg Results CBC & Chem 7: 05/22/23 09:40 05/22/23 09:40 Labs: Microbiology - Last 24 Hours (Table) 05/22/23 15:10 Gram Stain - Preliminary Sputum 05/21/23 17:08 Blood Culture Gram Stain - Preliminary Blood 05/21/23 16:50 Blood Culture Gram Stain - Preliminary Blood Assessment and Plan Plan: 1patient with gram-positive bacteremia in this patient presented to hospital with sepsis patient did have a fever elevated white count predominantly respiratory symptoms and evidence of pulmonary infiltrate on chest x-ray concerning for possible pneumonia. 2patient to have stage II sacral pressure ulcer with mostly excoriation of the skin but no significant slough tissue or redness was noticed clinically doubt the source of this bacteremia 3-blood cultures will be repeated document clearance of bacteremia and check a CRP and a procalcitonin sputum culture has been obtained and those will be followed 4-vancomycin pharmacy to dose with a target trough of 15 while watching kidney function and Vanco trough closely. 5-apply skin barrier cream with antifungal to the excoriated area on the sacrum and keep the area of the pressure discussed with the RN We will follow on clinical condition and cultures to further adjust medication if needed Thank you for this consultation we will follow the patient along with you Time with Patient: Greater than 30
[2023-05-24] MEDS: oxyCODONE-APAP 10-325MG 1 EACH TAB PO PRN ×3 (06:38→20:08)
[2023-05-24 08:49] LABS: African American GFR (CKD) >90 (>60 ml/min/1.73 sqM); Non-African American GFR(CKD) >90 (>60 ml/min/1.73 sqM)
[2023-05-24] MEDS: IPRATROPIUM-ALBUTEROL 3 ML NEB INHALATION SCH ×4 (08:57→22:11)
[2023-05-24] MEDS: BUDESONIDE 0.5 MG/2 ML NEBU INHALATION SCH ×2 (08:58→22:11)
[2023-05-24 09:38] LABS: African American GFR (CKD) >90 (>60 ml/min/1.73 sqM); Blood Urea Nitrogen 15 mg/dL (9-20); Calcium 8.8 mg/dL (8.4-10.2); Chloride 92 mmol/L (98-107); Glucose 95 mg/dL (74-99); Non-African American GFR(CKD) >90 (>60 ml/min/1.73 sqM); Potassium 3.4 mmol/L (3.5-5.1); Sodium 136 mmol/L (137-145)
[2023-05-24 09:44] LABS: Anion Gap 8 mmol/L
[2023-05-24 10:00] LABS: Carbon Dioxide 36 mmol/L (22-30)
[2023-05-24] MEDS: VANCOMYCIN 2,500 MG in SODIUM CHLORIDE 0.9% 500 ML 500 ML IVPB SCH ×2 (10:05→21:42)
[2023-05-24] MEDS: TAMSULOSIN 0.4 MG CAP.ER.24H PO SCH (10:06)
[2023-05-24] MEDS: SPIRONOLACTONE 25 MG TAB PO SCH (10:06)
[2023-05-24] MEDS: PANTOPRAZOLE 40 MG TABLET PO SCH (10:06)
[2023-05-24] MEDS: acetaZOLAMIDE 250 MG TAB PO SCH (10:06)
[2023-05-24] MEDS: METOPROLOL TARTRATE 25 MG TAB PO SCH ×2 (10:07→20:08)
[2023-05-24] MEDS: BUMETANIDE 0.25 MG/ML 4 ML VIAL IVP SCH ×2 (10:07→21:41)
[2023-05-24] MEDS: DULoxetine HCL 60 MG CAPSULE.DR PO SCH (10:07)
[2023-05-24] MEDS: allopurinoL 100 MG TAB PO SCH ×2 (10:07→10:25)
--- NOTE | 2023-05-24 11:16 | P.PN ---
Subjective HISTORY OF PRESENT ILLNESS: This is 62-year-old male who follows in the office with Dr. Lu. Patient has a history of congestive heart failure, atrial fibrillation, COPD, DVT, hypertension, hyperlipidemia, and obstructive sleep apnea. Patient is admitted to the hospital secondary to respiratory failure with pneumonia and congestive heart failure. Patient examined this morning at the bedside. He denies chest pain or pressure. He continues to report shortness of breath and states he does not feel acutely able to take a deep breath. However, he states his breathing is improved compared to yesterday. He is currently on 3 L nasal cannula maintaining oxygen saturations greater than 92%. He remains on IV Bumex: 2mg BID. Fluid balance over the last 24 hours is -3553 mL. Patient's kidney function remains stable. BUN 15. Creatinine 0.71. PHYSICAL EXAM: VITAL SIGNS: Reviewed. GENERAL: Well-developed in no acute distress. NECK: Supple. No JVD or thyromegaly LUNGS: Respirations even and unlabored. Lungs diminished to auscultation bilaterally. HEART: Regular rate and rhythm. S1 and S2 heard. EXTREMITIES: Normal range of motion. No clubbing or cyanosis. Peripheral pulses intact. 23+ bilateral lower extremity edema ASSESSMENT: Shortness of breath Acute hypoxic and hypercapnic respiratory failure Right upper lobe pneumonia Large right pleural effusion Acute on chronic heart failure with preserved ejection fraction, 50-55%. Moderate pulmonary hypertension Valvular heart disease History of DVT Paroxysmal atrial fibrillation Hypertension Hyperlipidemia Obstructive sleep apnea PLAN: Continue current cardiac medications Continue anticoagulation with Xarelto Continue current dose of Bumex Daily weights, accurate I&O, and monitor kidney function Further recommendations pending patient's course Nurse practitioner note has been reviewed by physician. Signing provider agrees with the documented findings, assessment, and plan of care. Objective - Vital Signs Vital signs: Vital Signs Temp 98.3 F 05/24/23 10:05 Pulse 68 05/24/23 10:05 Resp 18 05/24/23 10:05 BP 124/67 05/24/23 10:05 Pulse Ox 96 05/24/23 10:05 FiO2 40 05/24/23 03:40 Intake & Output 05/23/23 05/24/23 05/24/23 18:59 06:59 18:59 Intake Total 1002 220 540 Output Total 3025 1750 Balance -2022 540 Weight 191.144 kg Intake: Oral 1002 220 540 Output: Urine 1128 3300 Other: Voiding Method Indwelling Catheter Urinal Urinal Diaper Diaper - Labs CBC & Chem 7: 05/22/23 09:40 05/24/23 07:05 Labs: Abnormal Lab Results - Last 24 Hours (Table) 05/24/23 Range/Units 07:05 Sodium 136 L (137-145) mmol/L Potassium 3.4 L (3.5-5.1) mmol/L Chloride 92 L (98-107) mmol/L Carbon Dioxide 36 H (22-30) mmol/L Microbiology - Last 24 Hours (Table) 05/22/23 15:10 Gram Stain - Preliminary Sputum Sputum Culture - Preliminary Presumptive Staph aureus 05/21/23 16:50 Blood Culture Gram Stain - Preliminary Blood 05/21/23 17:08 Blood Culture Gram Stain - Preliminary Blood
--- NOTE | 2023-05-24 13:21 | XR ---
EXAMINATION TYPE: XR chest 1V portable DATE OF EXAM: 05/24/2023 COMPARISON: 05/22/2023 INDICATION: Right pleural effusion TECHNIQUE: Single frontal view of the chest is obtained. FINDINGS: The heart size is normal. The pulmonary vasculature is normal. There is a small to moderate right pleural effusion, diminished from comparison. Adjacent infiltrate is present. IMPRESSION: 1. Small to moderate pleural effusion improving. 2. Persistent infiltrate likely atelectasis adjacent to the pleural effusion
--- NOTE | 2023-05-24 14:27 | P.PN ---
Subjective Progress Note Date: 05/24/23 60-year-old mentation is coming into the hospital because of worsening shortness of breath and altered mentation. The patient was quite obtunded at time of admission. He was in acute on top of chronic hypoxic and hypercapnic respiratory failure. The patient was placed on a BiPAP at a pressure of 18/6 7 m of water and FiO2 of 60% and he was kept on a BiPAP throughout the night. His initial blood gas showed a pH of 7.29 with a pCO2 of 81. His urine just was positive for oxycodone. No history of any drug overdose. His Covid 19 testing was negative, influenza and RSV was negative. CAT scan of the brain showed no evidence of any acute changes. The chest x-ray showed a moderate sized right-sided pleural effusion along with patchy airspace disease involving the right lung which is a chronic finding. His echocardiogram from 2020 that showed a preserved LV function with severe diastolic dysfunction. Based on that the patient was hospitalized. This morning, so the patient in emergency department. The patient's condition is stable and awake and alert and is only on 3 L of oxygen by nasal cannula. He was able to communicate without any major difficulties. He had increased edema lower extremity is bilaterally. Is known to me from previous hospital admissions and the patient has chronic right-sided pleural effusion and he has undergone thoracentesis 2 in the past and his previous thoracentesis was done on 08/04/2019 with a total of 950 mL of fluid was removed and subsequently on 09/12/2019. The fluid has been a transudate on previous evaluations.Patient has an extensive medical history, including chronic hypercapnic respiratory failure related to obesity hypoventilation syndrome, and patient has a Trilogy ventilator at home, on AVAPS mode with TTV 550 ml, Max PSV 25, Min PSV 5, Max EPAP 10, Min EPAP 5. History of pulmonary embolism and previous history of DVT, paroxysmal atrial fibrillation , gait dysfunction, patient is chronically bedbound, chronic pain syndrome, diabetes type II with diabetic neuropathy, history of chronic kidney disease, unspecified, morbid obes ity with previous history of gastric sleeve surgery in 2013, history of COPD, former smoker, anxiety, depression, panic disorder, history of chronic CHF, cor pulmonale, his previous echocardiogram from October 2020 showed EF of 55-60%, mild MR, mild TR, severe pulmonary hypertension with PA systolic of 55.7 mmHg On 05/23/2023, the patient is doing well. The patient is on Bumex 2 mg IV every 12 hours and the patient has produced more than the 4 L of negative fluid balance over the past 24 hours. Remains on Aldactone. Remains on Diamox. He wants his Ferris catheter removed. Meanwhile, no new labs are available from today. His proBNP level was 590. Legionella urine antigen was negative. Is afebrile. Lower extremity edema is improving. He is on 3 L of oxygen by nasal cannula. I asked him to bring in his trilogy ventilator from home. The patient is seen today 05/24/2023 in follow-up on the regular medical floor. He is currently resting comfortably in bed. Awake and alert in no acute distress. He is maintaining O2 saturations in the mid 90s on 3 L/m per nasal cannula. She's afebrile. Hemodynamically stable. Blood cultures revealing coag-negative staph. Sputum culture revealing presumptive staph aureus. Sodium 136. Potassium 3.4. Bicarb 36. BUN 15. Creatinine 0.71. ProBNP was 590. Follow-up chest x-ray shows significant improvement in the right pleural effus ion. Continued on diuretics. Remains in a -3.5 L balance. He is continued on DuoNeb inhalations, Pulmicort inhalations, antibiotics in the form of vancomycin. Anticoagulated with Xarelto. Objective - Vital Signs Vital signs: Vital Signs Temp 98.3 F 05/24/23 10:05 Pulse 88 05/24/23 12:07 Resp 18 05/24/23 10:05 BP 124/67 05/24/23 10:05 Pulse Ox 96 05/24/23 10:05 FiO2 40 05/24/23 03:40 Intake & Output 05/23/23 05/24/23 05/24/23 18:59 06:59 18:59 Intake Total 1002 220 540 Output Total 3025 1750 1900 Balance -2022 Weight 191.144 kg Intake: Oral 1002 220 540 Output: Urine 3025 1750 1900 Other: Voiding Method Indwelling Catheter Urinal Urinal Diaper Diaper - Exam GENERAL EXAM: Alert, very pleasant, 62-year-old morbidly obese male, on 3 L of oxygen resting in bed, oriented 3, comfortable in no apparent distress. HEAD: Normocephalic/atraumatic. EYES: Normal reaction of pupils, equal size. Conjunctiva pink, sclera white. NOSE: Clear with pink turbinates. THROAT: No erythema or exudates. NECK: No masses, no JVD, no thyroid enlargement, no adenopathy. CHEST: No chest wall deformity. Symmetrical expansion. LUNGS: Equal air entry with diminished breath on the right lung base as the patient is known to have recurrent right-sided pleural effusion. CVS: Regular rate and rhythm, normal S1 and S2, no gallops, no murmurs, no rubs ABDOMEN: Soft, nontender. No hepatosplenomegaly, normal bowel sounds, no guarding or rigidity. EXTREMITIES: No clubbing, significant lower extremity edema, 2+ in bilateral lower extremities, no cyanosis, 2+ pulses and upper and lower extremities. MUSCULOSKELETAL: Muscle strength and tone normal. SPINE: No scoliosis or deformity SKIN: No rashes CENTRAL NERVOUS SYSTEM: No focal deficits, tone is normal in all 4 extremities. PSYCHIATRIC: Alert and oriented -3. Appropriate affect. Intact judgment and insight. - Labs CBC & Chem 7: 05/22/23 09:40 05/24/23 07:05 Labs: Abnormal Lab Results - Last 24 Hours (Table) 05/24/23 Range/Units 07:05 Sodium 136 L (137-145) mmol/L Potassium 3.4 L (3.5-5.1) mmol/L Chloride 92 L (98-107) mmol/L Carbon Dioxide 36 H (22-30) mmol/L Microbiology - Last 24 Hours (Table) 05/21/23 16:50 Blood Culture Gram Stain - Preliminary Blood Blood Culture - Preliminary Coagulase Negative Staph 05/21/23 17:08 Blood Culture Gram Stain - Preliminary Blood Blood Culture - Preliminary Coagulase Negative Staph 05/22/23 15:10 Gram Stain - Preliminary Sputum Sputum Culture - Preliminary Presumptive Staph aureus Assessment and Plan Assessment: Acute on chronic hypoxic/hypercapnic respiratory failure with CO2 narcosis and altered mentation. Exacerbating factors could be fluid overload. The patient's chronic right-sided pleural effusion which remains essentially unchanged. He has signs of increased fluid overload. No reported aspiration. No clear signs of pneumonia. He was started on diuretics. Diuresing very well. He is supported with BiPAP at a pressure of 16/8 cm of water and his mental status improved. Currently on 3 L Altered mentation secondary to CO2 narcosis, improved with BiPAP therapy and diuresis Right side pleural effusion, chronic, transudate on previous evaluations Chronic DVT of the right leg, on Xarelto Anemia, normocytic History of A fib, current rhythm is sinus with bundle-branch block pattern Asthma, COPD HIstory of CVA, TIA DM, type 2 History of GERD History of GI bleed HIstory of DJD History of PE Hypertension Hyperlipidemia History of sleep apnea, the patient is known to have a Trilogy ventilator at home. Does have a component of obesity hypoventilation syndrome. History of bilateral peripheral neuropathy History of MRSA super morbid obesity with a BMI of 50 History of bariatric surgery History of anxiety, depression, bipolar and schizoaffective disorder Remote history of nicotine dependence Poor overall functional performance based on the above-mentioned multiple comorbidities Plan: The patient was seen and evaluated Chest x-ray, medications and labs reviewed No plans for thoracentesis at this time Chest x-ray showing improvement in the right pleural effusion Continue diuretics Continue bronchodilators Titrate the FiO2 as tolerated We will continue to follow I have personally seen and examined the patient, performed the documentation and the assessment and plan as written. Number of minutes spent on the visit: 10.
--- NOTE | 2023-05-24 15:28 | P.PN ---
Subjective Progress Note Date: 05/24/23 Patient is a 62-year-old male with PMH of atrial fibrillation, COPD, CHF, DVT/PE, ALEXIS, CKD stage III presents ED for altered mentation and difficulty breathing. It appears that patient was admitted at [facility] from 05/03-05/14 for CHF exacerbation. In the ED, patient required BiPAP 18/6 FiO2 of 60%. CBC showed WBC count of 12.7 and hemoglobin of 11.8. Coagulation panel within normal limits. ABG showed pH of 7.29, pCO2 of 81. CMP showed sodium 135, chloride of 90, bicarb of 39, glucose 100, alkaline phosphatase of 186, albumin of 3.3. Ammonia was 10. Troponin was less than 0.012. Urinalysis showed moderate leukocyte esterase with 9 WBC. UDS positive for oxycodone. Influenza, RSV, COVID-[address] brain showed no acute intracranial hemorrhage or ischemic changes. Chest x-ray showed moderate to large right pleural effusion with worsening patchy airspace opacity throughout the right upper lung. EKG showed sinus rhythm with ventricular rate of 81, Q waves in leads II and aVF. Patient is admitted for altered mentation and respiratory failure. Echo 09/18 shows preserved EF with severe diastolic dysfunction. Due to his mentation, initial plan was to transfer the patient to ICU. 05/22 Patient was seen and examined. No acute events overnight. Mentation significantly improved. Patient reports difficulty breathing and lower extremity swelling. CBC shows hemoglobin of 11. BMP shows sodium 134, chloride of 90, bicarbonate 37 and glucose of 105. Lactic acid is 0.5. Chest x-ray shows large right pleural effusion. Plans for 3S rather than ICU admission. 05/23 Patient was seen and examined. Patient reports no changes in his breathing. He is currently on Bumex 2 mg IV twice a day. Diuresing well, -4.15 L over the past 24 hours. Blood cultures positive for gram-positive cocci 2. 05/24 Patient was seen and examined. Patient reports improvement in his br eathing. CXR today shows improved pleural effusion. BMP shows Na 136, K 3.4, Cl 92, bicarb of 36. He is continued on Bumex 2 mg IV BID. Diuresing well, -3.553 L over the past 24 hours. Blood cultures positive for coagulase negative staph. Currently on Vancomycin with ID following. General: Morbidly obese, no distress, appears at stated age Derm: warm, dry Head: atraumatic, normocephalic, symmetric Eyes: EOMI, no lid lag, anicteric sclera Cardiovascular: S1S2 reg, no murmur Lungs: Decreased breath sounds bilateral, no rhonchi, no rales , no accessory muscle use Abdominal: soft, nontender to palpation, no guarding, no appreciable organomegaly Ext: no gross muscle atrophy, 2-3+ pitting lower extremity edema, no contractures Neuro: No focal neurologic deficit Psych: Alert and oriented Gram-positive bacteremia Acute metabolic encephalopathy Acute on chronic hypoxic hypercapnic respiratory failure Acute on chronic diastolic CHF exacerbation Large right pleural effusion Sepsis likely related to pneumonia Chronic conditions: Atrial fibrillation, COPD, CHF, DVT/PE, ALEXIS, CKD stage III Based on my assessment of this patient, this patient meets a high complexity level of care. Patient has an acute diagnosis of acute metabolic encephalopathy likely secondary to hypercapnic respiratory failure from pneumonia and pleural effusion that poses a threat to life or bodily function. Bronchodilators: DuoNeb 0.5mg-3mg/3ml scheduled and as needed for SOB and wheezing. Spiriva 1 puff daily. Pulmicort 0.5 INH BID. Antibiotics: Vancomycin IV dosed by pharmacy. Supplemental maintain O2 saturation greater than 92%. Telemetry monitoring. Sputum culture shows presumptive staph aureus. Blood culture from 05/21 shows coagulase negative staph. Echocardiogram shows EF 50-55% with moderate LV thickness and moderate pulmonary HTN. Continue Bumex 2 mg IV BID. Daily monitoring of renal function as Lasix and Vancomycin can be nephrotoxic. Pulmonology and Cardiology on board. ID on board for bacteremia. Xarelto for DVT prophylaxis. FULL CODE. I have reviewed the following contract consultant notes: Pulmonology and Cardiology note reviewed as above. I have reviewed the results of the following tests: CBC, BMP, Sputum, Blood culture as above. I have ordered the following tests: Repeat BMP tomorrow morning. I have discussed the care of this patient with the following independent historian: I have independently interpreted the following test below: CXR interpreted as above. I have discussed the management of this patient with the following physician: Objective - Vital Signs Vital signs: Vital Signs Temp 98.3 F 05/24/23 10:05 Pulse 88 05/24/23 12:07 Resp 18 05/24/23 10:05 BP 124/67 05/24/23 10:05 Pulse Ox 96 05/24/23 10:05 FiO2 40 05/24/23 03:40 Intake & Output 05/23/23 05/24/23 05/24/23 18:59 06:59 18:59 Intake Total 1473 716 2240 Output Total 3025 1750 1900 Balance -2022 Weight 191.144 kg Intake: Oral 9333 230 3766 Output: Urine 3025 1750 1900 Other: Voiding Method Indwelling Catheter Urinal Urinal Diaper Diaper - Labs CBC & Chem 7: 05/22/23 09:40 05/24/23 07:05 Labs: Abnormal Lab Results - Last 24 Hours (Table) 05/24/23 Range/Units 07:05 Sodium 136 L (137-145) mmol/L Potassium 3.4 L (3.5-5.1) mmol/L Chloride 92 L (98-107) mmol/L Carbon Dioxide 36 H (22-30) mmol/L Microbiology - Last 24 Hours (Table) 05/21/23 16:50 Blood Culture Gram Stain - Preliminary Blood Blood Culture - Preliminary Coagulase Negative Staph 05/21/23 17:08 Blood Culture Gram Stain - Preliminary Blood Blood Culture - Preliminary Coagulase Negative Staph 05/22/23 15:10 Gram Stain - Preliminary Sputum Sputum Culture - Preliminary Presumptive Staph aureus
[2023-05-24] MEDS: RIVAROXABAN 20 MG TAB PO SCH (20:08)
--- NOTE | 2023-05-24 20:56 | P.PN ---
Subjective Progress Note Date: 05/24/23 Principal diagnosis: Bacteremia and possible pneumonia Patient is a 62-year-old male with multiple comorbidities including atrial fibrillation COPD CHF DVT PE has been brought into the hospital few days ago for evaluation of altered mentation and difficulty breathing, patient did have low-grade fever right lung infiltrate concerning for pneumonia patient did have a positive blood culture with coagulase negative staph sputum is growing staph aureus On today's evaluation that is 04/23/2023, the patient denies having any fever or any chills the patient is breathing slightly comfortably, patient denies having any chest pain did have occasional cough no sputum production no abdominal pain or diarrhea Objective - Vital Signs Vital signs: Vital Signs Temp 98.3 F 05/24/23 10:05 Pulse 88 05/24/23 12:07 Resp 18 05/24/23 10:05 BP 124/67 05/24/23 10:05 Pulse Ox 96 05/24/23 10:05 FiO2 40 05/24/23 03:40 Intake & Output 05/23/23 05/24/23 05/24/23 18:59 06:59 18:59 Intake Total 1002 220 540 Output Total 3025 1750 1100 Balance -3 -1530 -560 Weight 191.144 kg Intake: Oral 1002 220 540 Output: Urine 3025 1750 1100 Other: Voiding Method Indwelling Catheter Urinal Urinal Diaper Diaper - Exam GENERAL DESCRIPTION: Middle-aged male lying in bed in no distress RESPIRATORY SYSTEM: Unlabored breathing , decreased breath sounds at bases HEART: S1 S2 regular rate and rhythm , ABDOMEN: Soft , no tenderness EXTREMITIES: Diffuse swelling bilateral lower extremity - Labs CBC & Chem 7: 05/22/23 09:40 05/24/23 07:05 Labs: Abnormal Lab Results - Last 24 Hours (Table) 05/24/23 Range/Units 07:05 Sodium 136 L (137-145) mmol/L Potassium 3.4 L (3.5-5.1) mmol/L Chloride 92 L (98-107) mmol/L Carbon Dioxide 36 H (22-30) mmol/L Microbiology - Last 24 Hours (Table) 05/21/23 16:50 Blood Culture Gram Stain - Preliminary Blood Blood Culture - Preliminary Coagulase Negative Staph 05/21/23 17:08 Blood Culture Gram Stain - Preliminary Blood Blood Culture - Preliminary Coagulase Negative Staph 05/22/23 15:10 Gram Stain - Preliminary Sputum Sputum Culture - Preliminary Presumptive Staph aureus Assessment and Plan (1) Positive blood culture Current Visit: Yes Status: Acute Code(s): R78.81 - BACTEREMIA SNOMED Code(s): 047723015 (2) Pneumonia Current Visit: Yes Status: Acute Code(s): J18.9 - PNEUMONIA, UNSPECIFIED ORGANISM SNOMED Code(s): 649810437 Plan: 1patient with gram-positive bacteremia in this patient presented to hospital with sepsis patient did have a fever elevated white count predominantly respiratory symptoms and evidence of pulmonary infiltrate on chest x-ray concerning for possible pneumonia. 2patient to have stage II sacral pressure ulcer with mostly excoriation of the skin but no significant slough tissue or redness was noticed clinically doubt the source of this bacteremia Blood culture had been finalized with coagulase negative staph likely skin contamination blood culture has been repeated 4-patient's sputum is currently growing staph aureus with sensitivities pending, patient to continue with vancomycin pharmacy to dose while waiting for the final on the sputum culture
[2023-05-24] MEDS: OLANZapine 10 MG TAB PO SCH (21:41)
[2023-05-24] MEDS: SODIUM CHLORIDE 0.9% 1,000 ML IV SCH (21:42)
[2023-05-25] MEDS: oxyCODONE-APAP 10-325MG 1 EACH TAB PO PRN ×4 (03:54→21:37)
[2023-05-25 08:26] LABS: African American GFR (CKD) >90 (>60 ml/min/1.73 sqM); Blood Urea Nitrogen 18 mg/dL (9-20); Calcium 8.6 mg/dL (8.4-10.2); Chloride 93 mmol/L (98-107); Glucose 101 mg/dL (74-99); Non-African American GFR(CKD) >90 (>60 ml/min/1.73 sqM); Potassium 3.6 mmol/L (3.5-5.1); Sodium 136 mmol/L (137-145)
[2023-05-25 08:33] LABS: Anion Gap 4 mmol/L
[2023-05-25 08:34] LABS: Carbon Dioxide 39 mmol/L (22-30)
[2023-05-25] MEDS: BUDESONIDE 0.5 MG/2 ML NEBU INHALATION SCH ×2 (09:08→21:49)
[2023-05-25] MEDS: IPRATROPIUM-ALBUTEROL 3 ML NEB INHALATION SCH ×4 (09:08→21:49)
[2023-05-25] MEDS: allopurinoL 100 MG TAB PO SCH (09:20)
[2023-05-25] MEDS: acetaZOLAMIDE 250 MG TAB PO SCH (09:20)
[2023-05-25] MEDS: METOPROLOL TARTRATE 25 MG TAB PO SCH ×2 (09:21→21:33)
[2023-05-25] MEDS: PANTOPRAZOLE 40 MG TABLET PO SCH (09:21)
[2023-05-25] MEDS: BUMETANIDE 0.25 MG/ML 4 ML VIAL IVP SCH ×2 (09:21→21:34)
[2023-05-25] MEDS: SPIRONOLACTONE 25 MG TAB PO SCH (09:21)
[2023-05-25] MEDS: TAMSULOSIN 0.4 MG CAP.ER.24H PO SCH (09:21)
[2023-05-25] MEDS: DULoxetine HCL 60 MG CAPSULE.DR PO SCH (09:21)
[2023-05-25] MEDS: VANCOMYCIN 2,500 MG in SODIUM CHLORIDE 0.9% 500 ML 500 ML IVPB SCH (09:29)
--- NOTE | 2023-05-25 11:15 | P.PN ---
Subjective HISTORY OF PRESENT ILLNESS: This is 62-year-old male who follows in the office with Dr. Lu. Patient has a history of congestive heart failure, atrial fibrillation, COPD, DVT, hypertension, hyperlipidemia, and obstructive sleep apnea. Patient is admitted to the hospital secondary to respiratory failure with pneumonia and congestive heart failure. Patient examined this morning at the bedside. He denies chest pain or pressure. He continues to report shortness of breath and states he does not feel acutely able to take a deep breath. However, he states his breathing is improved compared to yesterday. He is currently on 3 L nasal cannula maintaining oxygen saturations greater than 92%. He remains on IV Bumex: 2mg BID. Fluid balance over the last 24 hours is -3553 mL. Patient's kidney function remains stable. BUN 15. Creatinine 0.71. 05/25/2023 Patient examined this morning at the bedside. Patient denies chest pain or pressure. He reports improvement in his shortness of breath. He denies shortness of breath at rest, however he states that he gets short of breath rather quickly with minimal activity such as rolling over in the bed. He remains on IV Bumex. His lower extremity edema is improving compared to yesterday. Kidney function remained stable. creatinine today 0.80. Vital signs are stable. PHYSICAL EXAM: VITAL SIGNS: Reviewed. GENERAL: Well-developed in no acute distress. NECK: Supple. No JVD or thyromegaly LUNGS: Respirations even and unlabored. Lungs diminished to auscultation bilaterally. HEART: Regular rate and rhythm. S1 and S2 heard. EXTREMITIES: Normal range of motion. No clubbing or cyanosis. Peripheral pulses intact. 23+ bilateral lower extremity edema ASSESSMENT: Shortness of breath Acute hypoxic and hypercapnic respiratory failure Right upper lobe pneumonia Large right pleural effusion Acute on chronic heart failure with preserved ejection fraction, 50-55%. Moderate pulmonary hypertension Valvular heart disease History of DVT Paroxysmal atrial fibrillation Hypertension Hyperlipidemia Obstructive sleep apnea PLAN: Continue current cardiac medications Continue anticoagulation with Xarelto Continue current dose of Bumex Daily weights, accurate I&O, and monitor kidney function Further recommendations pending patient's course Nurse practitioner note has been reviewed by physician. Signing provider agrees with the documented findings, assessment, and plan of care. Objective - Vital Signs Vital signs: Vital Signs Temp 98.3 F 05/25/23 09:41 Pulse 73 05/25/23 09:41 Resp 18 05/25/23 09:41 BP 116/73 05/25/23 09:41 Pulse Ox 95 05/25/23 09:41 FiO2 40 05/25/23 03:58 Intake & Output 05/24/23 05/25/23 05/25/23 18:59 06:59 18:59 Intake Total 1738 118 Output Total 5595 1100 1775 Brziaot -698 -7017 -5699 Weight 192 kg Intake: Oral 1738 118 Output: Urine 2225 1100 1775 Other: Voiding Method Urinal Urinal Urinal Diaper Diaper Diaper # Bowel Movements 1 - Labs CBC & Chem 7: 05/22/23 09:40 05/25/23 07:22 Labs: Abnormal Lab Results - Last 24 Hours (Table) 05/25/23 Range/Units 07:22 Sodium 136 L (137-145) mmol/L Chloride 93 L (98-107) mmol/L Carbon Dioxide 39 H (22-30) mmol/L Glucose 101 H (74-99) mg/dL Microbiology - Last 24 Hours (Table) 05/22/23 15:10 Gram Stain - Final Sputum Sputum Culture - Final Methicillin resist S. aureus Jackie albicans 05/21/23 16:50 Blood Culture Gram Stain - Preliminary Blood Blood Culture - Preliminary Coagulase Negative Staph 05/21/23 17:08 Blood Culture Gram Stain - Preliminary Blood Blood Culture - Preliminary Coagulase Negative Staph
--- NOTE | 2023-05-25 12:15 | P.PN ---
Subjective Progress Note Date: 05/25/23 Principal diagnosis: Bacteremia and possible pneumonia Patient is a 62-year-old male with multiple comorbidities including atrial fibrillation COPD CHF DVT PE has been brought into the hospital few days ago for evaluation of altered mentation and difficulty breathing, patient did have low-grade fever right lung infiltrate concerning for pneumonia patient did have a positive blood culture with coagulase negative staph sputum is growing staph aureus On today's evaluation that is 04/24/2023, the patient remains to be afebrile, the patient is breathing on nasal cannula oxygen, patient denies having any chest pain did have occasional cough no sputum production no abdominal pain or diarrhea Objective - Vital Signs Vital signs: Vital Signs Temp 98.3 F 05/25/23 09:41 Pulse 73 05/25/23 09:41 Resp 18 05/25/23 09:41 BP 116/73 05/25/23 09:41 Pulse Ox 95 05/25/23 09:41 FiO2 40 05/25/23 03:58 Intake & Output 05/24/23 05/25/23 05/25/23 18:59 06:59 18:59 Intake Total 1738 118 Output Total 4967 1100 1775 Nqnbhog -327 -6981 -7399 Weight 192 kg Intake: Oral 1738 118 Output: Urine 0780 1100 1779 Other: Voiding Method Urinal Urinal Urinal Diaper Diaper Diaper # Bowel Movements 1 - Exam GENERAL DESCRIPTION: Middle-aged male lying in bed in no distress RESPIRATORY SYSTEM: Unlabored breathing , decreased breath sounds at bases HEART: S1 S2 regular rate and rhythm , ABDOMEN: Soft , no tenderness EXTREMITIES: Diffuse swelling bilateral lower extremity - Labs CBC & Chem 7: 05/22/23 09:40 05/25/23 07:22 Labs: Abnormal Lab Results - Last 24 Hours (Table) 05/25/23 Range/Units 07:22 Sodium 136 L (137-145) mmol/L Chloride 93 L (98-107) mmol/L Carbon Dioxide 39 H (22-30) mmol/L Glucose 101 H (74-99) mg/dL Microbiology - Last 24 Hours (Table) 05/21/23 16:50 Blood Culture Gram Stain - Final Blood Blood Culture - Final Staphylococcus epidermidis 05/21/23 17:08 Blood Culture Gram Stain - Final Blood Blood Culture - Final Staphylococcus epidermidis 05/22/23 15:10 Gram Stain - Final Sputum Sputum Culture - Final Methicillin resist S. aureus Jackie albicans Assessment and Plan (1) Positive blood culture Current Visit: Yes Status: Acute Code(s): R78.81 - BACTEREMIA SNOMED Code(s): 494526163 (2) Pneumonia Current Visit: Yes Status: Acute Code(s): J18.9 - PNEUMONIA, UNSPECIFIED ORGANISM SNOMED Code(s): 667999070 Plan: 1patient with gram-positive bacteremia in this patient presented to hospital with sepsis patient did have a fever elevated white count predominantly respiratory symptoms and evidence of pulmonary infiltrate on chest x-ray concerning for possible pneumonia. 2patient to have stage II sacral pressure ulcer with mostly excoriation of the skin but no significant slough tissue or redness was noticed clinically doubt the source of this bacteremia Blood culture had been finalized with coagulase negative staph likely skin contamination blood culture has been repeated 4-patient's sputum is currently growing MRSA, we will continue the patient on vancomycin pharmacy to dose 10 days to finish course of treatment cannot use Zyvox because the patient is on Cymbalta, discussed with the medical team Time with Patient: Less than 30
--- NOTE | 2023-05-25 13:47 | P.PN ---
Subjective Progress Note Date: 05/25/23 60-year-old mentation is coming into the hospital because of worsening shortness of breath and altered mentation. The patient was quite obtunded at time of admission. He was in acute on top of chronic hypoxic and hypercapnic respiratory failure. The patient was placed on a BiPAP at a pressure of 18/6 7 m of water and FiO2 of 60% and he was kept on a BiPAP throughout the night. His initial blood gas showed a pH of 7.29 with a pCO2 of 81. His urine just was positive for oxycodone. No history of any drug overdose. His Covid 19 testing was negative, influenza and RSV was negative. CAT scan of the brain showed no evidence of any acute changes. The chest x-ray showed a moderate sized right-sided pleural effusion along with patchy airspace disease involving the right lung which is a chronic finding. His echocardiogram from 2020 that showed a preserved LV function with severe diastolic dysfunction. Based on that the patient was hospitalized. This morning, so the patient in emergency department. The patient's condition is stable and awake and alert and is only on 3 L of oxygen by nasal cannula. He was able to communicate without any major difficulties. He had increased edema lower extremity is bilaterally. Is known to me from previous hospital admissions and the patient has chronic right-sided pleural effusion and he has undergone thoracentesis 2 in the past and his previous thoracentesis was done on 08/04/2019 with a total of 950 mL of fluid was removed and subsequently on 09/12/2019. The fluid has been a transudate on previous evaluations.Patient has an extensive medical history, including chronic hypercapnic respiratory failure related to obesity hypoventilation syndrome, and patient has a Trilogy ventilator at home, on AVAPS mode with TTV 550 ml, Max PSV 25, Min PSV 5, Max EPAP 10, Min EPAP 5. History of pulmonary embolism and previous history of DVT, paroxysmal atrial fibrillation , gait dysfunction, patient is chronically bedbound, chronic pain syndrome, diabetes type II with diabetic neuropathy, history of chronic kidney disease, unspecified, morbid obes ity with previous history of gastric sleeve surgery in 2013, history of COPD, former smoker, anxiety, depression, panic disorder, history of chronic CHF, cor pulmonale, his previous echocardiogram from October 2020 showed EF of 55-60%, mild MR, mild TR, severe pulmonary hypertension with PA systolic of 55.7 mmHg On 05/23/2023, the patient is doing well. The patient is on Bumex 2 mg IV every 12 hours and the patient has produced more than the 4 L of negative fluid balance over the past 24 hours. Remains on Aldactone. Remains on Diamox. He wants his Ferris catheter removed. Meanwhile, no new labs are available from today. His proBNP level was 590. Legionella urine antigen was negative. Is afebrile. Lower extremity edema is improving. He is on 3 L of oxygen by nasal cannula. I asked him to bring in his trilogy ventilator from home. The patient is seen today 05/24/2023 in follow-up on the regular medical floor. He is currently resting comfortably in bed. Awake and alert in no acute distress. He is maintaining O2 saturations in the mid 90s on 3 L/m per nasal cannula. She's afebrile. Hemodynamically stable. Blood cultures revealing coag-negative staph. Sputum culture revealing presumptive staph aureus. Sodium 136. Potassium 3.4. Bicarb 36. BUN 15. Creatinine 0.71. ProBNP was 590. Follow-up chest x-ray shows significant improvement in the right pleural effus ion. Continued on diuretics. Remains in a -3.5 L balance. He is continued on DuoNeb inhalations, Pulmicort inhalations, antibiotics in the form of vancomycin. Anticoagulated with Xarelto. The patient is seen today 05/25/2023 in follow-up on the regular medical floor. He is awake and alert in no acute distress. Maintaining good O2 saturations in the mid 90s on 3 L/m per nasal cannula. Afebrile. Hemodynamically stable. Sputum culture is positive for MRSA, Jackie. Follow-up blood culture revealing no growth. Sodium 136. Potassium 3.6. Bicarb 39. BUN 18. Creatinine 0.80. Glucose 101. He remains on vancomycin. Continued on Bumex and Diamox. Currently in a -1.8 L balance. Remains on bronchodilators. Anticoagulated with Xarelto. Objective - Vital Signs Vital signs: Vital Signs Temp 98.4 F 05/25/23 12:16 Pulse 78 05/25/23 12:57 Resp 18 05/25/23 12:16 BP 107/63 05/25/23 12:16 Pulse Ox 97 05/25/23 12:16 FiO2 40 05/25/23 03:58 Intake & Output 05/24/23 05/25/23 05/25/23 18:59 06:59 18:59 Intake Total 1738 858 Output Total 6035 1100 2225 Balance -093 -7012 -6918 Weight 192 kg Intake: Oral 1738 858 Output: Urine 4523 1100 2225 Other: Voiding Method Urinal Urinal Urinal Diaper Diaper Diaper # Bowel Movements 1 - Exam GENERAL EXAM: Alert, 62-year-old morbidly obese male, on 3 L of oxygen resting in bed, comfortable in no apparent distress. HEAD: Normocephalic/atraumatic. EYES: Normal reaction of pupils, equal size. Conjunctiva pink, sclera white. NOSE: Clear with pink turbinates. THROAT: No erythema or exudates. NECK: No masses, no JVD, no thyroid enlargement, no adenopathy. CHEST: No chest wall deformity. Symmetrical expansion. LUNGS: Equal air entry with diminished breath on the right lung base. CVS: Regular rate and rhythm, normal S1 and S2, no gallops, no murmurs, no rubs ABDOMEN: Soft, nontender. No hepatosplenomegaly, normal bowel sounds, no guarding or rigidity. EXTREMITIES: No clubbing, significant lower extremity edema, 2+ in bilateral lower extremities, no cyanosis, 2+ pulses and upper and lower extremities. MUSCULOSKELETAL: Muscle strength and tone normal. SPINE: No scoliosis or deformity SKIN: No rashes CENTRAL NERVOUS SYSTEM: No focal deficits, tone is normal in all 4 extremities. PSYCHIATRIC: Alert and oriented -3. Appropriate affect. Intact judgment and insight. - Labs CBC & Chem 7: 05/22/23 09:40 05/25/23 07:22 Labs: Abnormal Lab Results - Last 24 Hours (Table) 05/25/23 Range/Units 07:22 Sodium 136 L (137-145) mmol/L Chloride 93 L (98-107) mmol/L Carbon Dioxide 39 H (22-30) mmol/L Glucose 101 H (74-99) mg/dL Microbiology - Last 24 Hours (Table) 05/23/23 12:45 Blood Culture - Preliminary Blood 05/21/23 16:50 Blood Culture Gram Stain - Final Blood Blood Culture - Final Staphylococcus epidermidis 05/21/23 17:08 Blood Culture Gram Stain - Final Blood Blood Culture - Final Staphylococcus epidermidis 05/22/23 15:10 Gram Stain - Final Sputum Sputum Culture - Final Methicillin resist S. aureus Jackie albicans Assessment and Plan Assessment: Acute on chronic hypoxic/hypercapnic respiratory failure with CO2 narcosis and altered mentation. Exacerbating factors could be fluid overload. The patient's chronic right-sided pleural effusion which remains essentially unchanged. He has signs of increased fluid overload. No reported aspiration. No clear signs of pneumonia. He was started on diuretics. Diuresing very well. He is supported with BiPAP at a pressure of 16/8 cm of water and his mental status improved. Currently on 3 L Altered mentation secondary to CO2 narcosis, improved with BiPAP therapy and diuresis Right side pleural effusion, chronic, transudate on previous evaluations Recurrent MRSA infections currently positive sputum, on vancomycin Chronic DVT of the right leg, on Xarelto Anemia, normocytic History of A fib, current rhythm is sinus with bundle-branch block pattern Asthma, COPD HIstory of CVA, TIA DM, type 2 History of GERD History of GI bleed HIstory of DJD History of PE Hypertension Hyperlipidemia History of sleep apnea, the patient is known to have a Trilogy ventilator at home. Does have a component of obesity hypoventilation syndrome. History of bilateral peripheral neuropathy History of MRSA super morbid obesity with a BMI of 50 History of bariatric surgery History of anxiety, depression, bipolar and schizoaffective disorder Remote history of nicotine dependence Poor overall functional performance based on the above-mentioned multiple comorbidities Plan: The patient was seen and evaluated Medications and labs reviewed Continue diuretics Remains in a negative balance Continue bronchodilators Titrate the FiO2 as tolerated Continued on vancomycin for MRSA positive sputum We will continue to follow I have personally seen and examined the patient, performed the documentation and the assessment and plan as written. Number of minutes spent on the visit: 10.
--- NOTE | 2023-05-25 16:45 | P.PN ---
Subjective Progress Note Date: 05/25/23 Pt reports improvement in his breathing today. Sputum Cx growing MRSA. Gen: awake, alert HEENT: normocephalic, atraumatic, good hearing acuity, moist mucous membranes Resp: good air exchange, breathing comfortably with no accessory muscle use, coarse breath sounds CVS: good distal perfusion x 4, regular rate and rhythm without murmurs GI: soft, NTTP, ND : no SPT, no CVAT, vidales catheter not present MSK: Bilateral pitting edema, no clubbing Neuro: non-focal, moving all extremities Psych: cooperative, euthymic mood Hospital course: Patient is a 62-year-old male with PMH of atrial fibrillation, COPD, CHF, DVT/PE, ALEXIS, CKD stage III presents ED for altered mentation and difficulty breathing. It appears that patient was admitted at [facility] from 05/03-05/14 for CHF exacerbation. In the ED, patient required BiPAP 18/6 FiO2 of 60%. CBC showed WBC count of 12.7 and hemoglobin of 11.8. Coagulation panel within normal limits. ABG showed pH of 7.29, pCO2 of 81. CMP showed sodium 135, chloride of 90, bicarb of 39, glucose 100, alkaline phosphatase of 186, albumin of 3.3. Ammonia was 10. Troponin was less than 0.012. Urinalysis showed moderate leukocyte esterase with 9 WBC. UDS positive for oxycodone. Influenza, RSV, COVID-[address] brain showed no acute intracranial hemorrhage or ischemic changes. Chest x-ray showed moderate to large right pleural effusion with worsening patchy airspace opacity throughout the right upper lung. EKG showed sinus rhythm with ventricular rate of 81, Q waves in leads II and aVF. Patient is admitted for altered mentation and respiratory failure. Echo 09/18 shows preserved EF with severe diastolic dysfunction. Due to his mentation, initial plan was to transfer the patient to ICU. However, patient's mentation improved and therefore he was transferred to cardiac stepdown rather than ICU. He was started on Bumex 2 mg IV twice daily. His blood cultures are positive for gram-positive croci, which ended up growing coag-negative staph. Infectious disease was consulted, recommended sputum culture which ended up growing MRSA. Patient was being treated with vancomycin. Assessment: Gram-positive bacteremia MRSA pneumonia Acute metabolic encephalopathy Acute on chronic hypoxic hypercapnic respiratory failure Acute on chronic diastolic CHF exacerbation Large right pleural effusion Sepsis likely related to pneumonia Chronic conditions: Atrial fibrillation, COPD, CHF, DVT/PE, ALEXIS, CKD stage III Plan: Today, patient is afebrile, 107/63, heart rate 63, 97% on 3 L Basic metabolic panel shows sodium 136, chloride 93, BUN of 18, CO2 of 39 Case discussed with infectious disease, patient will need IV antibiotics, will likely need mcc placement Continue Bumex 2 mg IV twice a day Continue Diamox 500mg PO daily Continue vancomycin, follow trough level for toxicity Continue Xarelto 20 mg Follow blood cultures Patient is full code Objective - Vital Signs Vital signs: Vital Signs Temp 98.4 F 05/25/23 12:16 Pulse 76 05/25/23 16:10 Resp 18 05/25/23 12:16 BP 107/63 05/25/23 12:16 Pulse Ox 97 05/25/23 12:16 FiO2 40 05/25/23 03:58 Intake & Output 05/24/23 05/25/23 05/25/23 18:59 06:59 18:59 Intake Total 1738 858 Output Total 2115 1100 2225 Balance -787 -5537 -8001 Weight 192 kg Intake: Oral 1738 858 Output: Urine 5992 1100 2225 Other: Voiding Method Urinal Urinal Urinal Diaper Diaper Diaper # Bowel Movements 1 - Labs CBC & Chem 7: 05/22/23 09:40 05/25/23 07:22 Labs: Abnormal Lab Results - Last 24 Hours (Table) 05/25/23 Range/Units 07:22 Sodium 136 L (137-145) mmol/L Chloride 93 L (98-107) mmol/L Carbon Dioxide 39 H (22-30) mmol/L Glucose 101 H (74-99) mg/dL Microbiology - Last 24 Hours (Table) 05/23/23 12:45 Blood Culture - Preliminary Blood 05/21/23 16:50 Blood Culture Gram Stain - Final Blood Blood Culture - Final Staphylococcus epidermidis 05/21/23 17:08 Blood Culture Gram Stain - Final Blood Blood Culture - Final Staphylococcus epidermidis 05/22/23 15:10 Gram Stain - Final Sputum Sputum Culture - Final Methicillin resist S. aureus Jackie albicans
[2023-05-25] MEDS ORDERED: VANCOMYCIN TROUGH DUE 1 EACH MISC MISCELLANE ONE (20:00)
[2023-05-25] MEDS: SODIUM CHLORIDE 0.9% 1,000 ML IV SCH (21:09)
[2023-05-25] MEDS: OLANZapine 10 MG TAB PO SCH (21:33)
[2023-05-25] MEDS: RIVAROXABAN 20 MG TAB PO SCH (21:33)
[2023-05-26] MEDS: oxyCODONE-APAP 10-325MG 1 EACH TAB PO PRN ×4 (04:01→23:47)
[2023-05-26] MEDS: IPRATROPIUM-ALBUTEROL 3 ML NEB INHALATION PRN (04:17)
[2023-05-26 08:09] LABS: African American GFR (CKD) >90 (>60 ml/min/1.73 sqM); Blood Urea Nitrogen 17 mg/dL (9-20); Calcium 8.9 mg/dL (8.4-10.2); Chloride 92 mmol/L (98-107); Glucose 101 mg/dL (74-99); Non-African American GFR(CKD) >90 (>60 ml/min/1.73 sqM); Potassium 3.6 mmol/L (3.5-5.1); Sodium 135 mmol/L (137-145)
[2023-05-26 08:15] LABS: Anion Gap 6 mmol/L; Carbon Dioxide 37 mmol/L (22-30)
[2023-05-26] MEDS: allopurinoL 100 MG TAB PO SCH (08:20)
[2023-05-26] MEDS: SPIRONOLACTONE 25 MG TAB PO SCH (08:28)
[2023-05-26] MEDS: acetaZOLAMIDE 250 MG TAB PO SCH (08:28)
[2023-05-26] MEDS: METOPROLOL TARTRATE 25 MG TAB PO SCH ×2 (08:28→20:50)
[2023-05-26] MEDS: PANTOPRAZOLE 40 MG TABLET PO SCH (08:28)
[2023-05-26] MEDS: DULoxetine HCL 60 MG CAPSULE.DR PO SCH (08:29)
[2023-05-26] MEDS: TAMSULOSIN 0.4 MG CAP.ER.24H PO SCH (08:29)
[2023-05-26] MEDS: BUMETANIDE 0.25 MG/ML 4 ML VIAL IVP SCH ×2 (08:29→20:50)
[2023-05-26] MEDS: VANCOMYCIN 2,500 MG in SODIUM CHLORIDE 0.9% 500 ML 500 ML IVPB SCH (08:30)
--- NOTE | 2023-05-26 10:25 | P.CONS ---
History of Present Illness - Reason for Consult Consult date: 05/26/23 wound care - History of Present Illness This is a 62-year-old gentleman being seen by the wound care center for stage II pressure ulcer to the coccyx. Patient has a stage II pressure ulcer with granulation noted and minimal slough. Periwound does show excoriation throughout. Past medical history significant for atrophic relation, asthma, heart failure, COPD, GERD, hyperlipidemia, hypertension, PE, sleep apnea bilateral neuropathy chronic kidney disease stage III. Review Of Systems: Constitutional: No fever, no chills, no night sweats. No weight change. No weakness, fatigue or lethargy. No daytime sleepiness. Integumentary:reports wounds, no lesions. No rash or pruritus. No unusual bruising. No change in hair or nails. Physical exam: General Appearance: Alert, cooperative, no distress, appears stated age. Skin: See HPI all other Skin color, texture, tugor normal, no rashes or lesions. Neurologic: Alert oriented x3 Assessment: 1. Stage II pressure ulcer sacrum 2. Excoriation Plan: 1. Apply triad to the site. Turn patient every 2 hours as tolerated. Thank you for the consultation any questions please contact the wound care center DNP note has been reviewed and discussed with Dr. Villegas and the impression and plan of care has been directed as dictated. Past Medical History Past Medical History: Atrial Fibrillation, Asthma, Cancer, Heart Failure, COPD, Deep Vein Thrombosis (DVT), GERD/Reflux, GI Bleed, Hyperlipidemia, Hypertension, Osteoarthritis (OA), Pneumonia, Pulmonary Embolus (PE), Renal Disease, Respiratory Disorder, Sleep Apnea/CPAP/BIPAP Additional Past Medical History / Comment(s): +Covid 1-- and early 2022, hx chronic CHF/abnormal ECHO-see report/paroxysmal afib/bilat pleural effusions w/ R sided thoracentesis. hypoglycemia. BLE neuropathy, colitis, chronic generalized pain, fluid retention, bedbound, hiatal hernia, DDD, scoliosis, ALEXIS w/ CPAP, CKD stage III, pseudoseizures - none in 1 year, basal cell skin cancer, BLE edema, CPAP and uses Home O2 24/7, SOB. History of Any Multi-Drug Resistant Organisms: MRSA Year Discovered:: MRSA 09/05/21 MDRO Source:: LEG Past Surgical History: Appendectomy, Bariatric Surgery, Cholecystectomy, Heart Catheterization, Hernia Repair, Joint Replacement, Orthopedic Surgery Additional Past Surgical History / Comment(s): Gastric sleeve 2014, L inguinal hernia repair, R elbow surgery x2, total R hip arthroplasty, L knee arthroscop y/ACL surgery, R ankle ORIF, EGD, colonoscopy, basal cell skin cancer exc face, surgery for varicele,lt knee arthroscopy x2. Past Anesthesia/Blood Transfusion Reactions: Previous Problems w/ Anesthesia Additional Past Anesthesia/Blood Transfusion Reaction / Comm: STATES WAS TOLD HE WAS A DIFFICULT INTUBATION WITH GASTRIC SLEEVE SURGERY, no problems with gallbladder surgery after gastric sleeve surgery in Aug 2021 Past Psychological History: Anxiety, Bipolar, Depression, Panic Disorder, Schizoaffective Disorder Additional Psychological History / Comment(s): Pt resides with his son and daughter. He has help with PT/OT at home. He states he has been bedbound past 4 years. Minimal weigh bearing and requires assistance to move. He is unable to sit up independantly. He will call EMS transfer for appointments. Pt states he gets paranoid at times. Smoking Status: Former smoker Past Alcohol Use History: None Reported Additional Past Alcohol Use History / Comment(s): STARTED SMOKING AT AGE 15, QUIT SMOKING 1998, smoked 4 cigerettes- 1PPD. FORMER ETOH ABUSE. Pt states QUIT 1997 Past Drug Use History: None Reported Additional Drug Use History / Comment(s): PAST HX OF MARIJUANA USE, DENIES USE IN YEARS. - Past Family History Father Family Medical History: Cancer Additional Family Medical History / Comment(s): LUNG CA Mother Family Medical History: Coronary Artery Disease (CAD) Additional Family Medical History / Comment(s): Mother of an infection. Medications and Allergies Home Medications Medication Instructions Recorded Confirmed Type Rivaroxaban [Xarelto] 20 mg PO HS 07/14/19 05/21/23 History OLANZapine 20 mg PO HS 10/29/20 05/21/23 History Omeprazole 20 mg PO DAILY 03/27/21 05/21/23 History DULoxetine HCL [Cymbalta] 60 mg PO DAILY 09/05/21 05/21/23 History Albuterol Sulfate [Ventolin HFA] 1 - 2 puff INHALATION RT-Q6H PRN 10/28/21 05/21/23 History Tamsulosin HCl [Flomax] 0.4 mg PO DAILY 10/28/21 05/21/23 History Tiotropium 2.5 Mcg/Puff [Spiriva 2 puff INHALATION RT-DAILY 10/28/21 05/21/23 History Respimat 2.5 Mcg] Cholecalciferol [Vitamin D3 (25 25 mcg PO DAILY 09/09/22 05/21/23 History Mcg = 1000 Iu)] Metoprolol Tartrate [Lopressor] 25 mg PO BID 09/09/22 05/21/23 History Spironolactone [Aldactone] 25 mg PO DAILY 09/09/22 05/21/23 History allopurinoL [Zyloprim] 100 mg PO DAILY 09/09/22 05/21/23 History Budesonide [Pulmicort] 0.5 mg INHALATION RT-BID 03/17/23 05/21/23 History Docusate [Colace] 100 mg PO DAILY PRN 03/17/23 05/21/23 History Ipratropium-Albuterol Nebulize 3 ml INHALATION RT-QID 03/17/23 05/21/23 History [Duoneb 0.5 mg-3 mg/3 ml Soln] Potassium Chloride ER [K-Dur 20] 20 meq PO DAILY 03/17/23 05/21/23 History oxyCODONE-APAP 10-325MG [Percocet 1 tab PO Q6H PRN 03/17/23 05/21/23 History 10-325 mg] Bumetanide [BUMEX] 2 mg PO DAILY 05/21/23 05/21/23 History Ferrous Sulfate [Iron] 325 mg PO DAILY 05/21/23 05/21/23 History Lactulose [Constulose] 20 gm PO BID PRN 05/21/23 05/21/23 History acetaZOLAMIDE [Diamox Sequels] 500 mg PO DAILY 05/21/23 05/21/23 History Allergies Allergy/AdvReac Type Severity Reaction Status Date / Time codeine Allergy Severe Swelling Verified 05/21/23 16:28 OF THROAT WITH COUGH SYRUP allopurinol Allergy Unknown Verified 05/21/23 16:28 chlorpheniramine Allergy Unknown Verified 05/21/23 16:28 febuxostat [From Uloric] Allergy Unknown Verified 05/21/23 16:28 phenylephrine Allergy Unknown Verified 05/21/23 16:28 piperacillin sodium Allergy Unknown Verified 05/21/23 16:28 [From Zosyn] sulfamethoxazole Allergy Unknown Verified 05/21/23 16:28 [From Bactrim] tazobactam sodium Allergy Unknown Verified 05/21/23 16:28 [From Zosyn] trimethoprim [From Bactrim] Allergy Unknown Verified 05/21/23 16:28 buspirone [From BuSpar] AdvReac Rapid Verified 05/21/23 16:28 Heart Rate Physical Exam Vitals: Vital Signs Temp Pulse Pulse Resp BP Pulse Ox FiO2 05/26/23 08:00 97.7 F 84 16 115/63 95 05/26/23 04:29 72 05/26/23 04:17 72 05/26/23 03:56 97.5 F L 58 L 17 113/69 95 40 05/26/23 01:10 40 05/25/23 23:47 97.5 F L 58 L 18 95/51 98 05/25/23 22:04 76 05/25/23 21:49 72 05/25/23 19:55 98.0 F 65 18 110/57 98 05/25/23 16:10 76 05/25/23 16:00 98.3 F 70 18 96/59 96 05/25/23 15:55 76 05/25/23 14:00 63 18 05/25/23 12:57 78 05/25/23 12:47 74 05/25/23 12:16 98.4 F 63 18 107/63 97 Intake and Output 05/25/23 05/26/23 05/26/23 22:59 06:59 14:59 Intake Total 840 110 Output Total 1260 1620 Balance 840 -1260 -1510 Intake: Oral 840 110 Output: Urine 1260 1620 Other: Voiding Method Urinal Urinal Weight 190.5 kg Results CBC & Chem 7: 05/22/23 09:40 05/26/23 07:17 Labs: Abnormal Lab Results - Last 24 Hours (Table) 05/25/23 05/26/23 Range/Units 20:18 07:17 Sodium 135 L (137-145) mmol/L Chloride 92 L (98-107) mmol/L Carbon Dioxide 37 H (22-30) mmol/L Glucose 101 H (74-99) mg/dL Vancomycin Trough 31.6 H* ug/mL Microbiology - Last 24 Hours (Table) 05/23/23 12:45 Blood Culture - Preliminary Blood 05/21/23 16:50 Blood Culture Gram Stain - Final Blood Blood Culture - Final Staphylococcus epidermidis 05/21/23 17:08 Blood Culture Gram Stain - Final Blood Blood Culture - Final Staphylococcus epidermidis 05/22/23 15:10 Gram Stain - Final Sputum Sputum Culture - Final Methicillin resist S. aureus Jackie albicans Assessment and Plan (1) Pressure injury of sacral region, stage 2 Current Visit: Yes Status: Acute Code(s): L89.152 - PRESSURE ULCER OF SACRAL REGION, STAGE 2 SNOMED Code(s): 32489861143432 (2) Excoriation of buttock Current Visit: Yes Status: Acute Code(s): S30.810A - ABRASION OF LOWER BACK AND PELVIS, INITIAL ENCOUNTER SNOMED Code(s): 858793001
[2023-05-26] MEDS: IPRATROPIUM-ALBUTEROL 3 ML NEB INHALATION SCH ×4 (11:16→21:26)
--- NOTE | 2023-05-26 11:37 | P.GSCN ---
History of Present Illness Consult date: 05/26/23 Reason for Consult: PICC line placement Requesting physician: Ayad Vogel History of present illness: 62-year-old male with multiple comorbidities including atrial fibrillation, COPD CHF DVT, PE was brought in for altered mentation and difficulty breathing. Patient had a low-grade fever infiltrate concerning for pneumonia with positive blood cultures with coagulase-negative staph sputum growing staph aureus. Plan is for discharge with IV antibiotics and need for PICC line placement. No chest pain, breathing has improved still has occasional cough. Sodium 135 potassium 3.6 BUN 17 creatinine 0.79 GFR greater than 90 Review of Systems A 14 point review systems was completed all pertinent positives and negatives as stated in the HPI. Past Medical History Past Medical History: Atrial Fibrillation, Asthma, Cancer, Heart Failure, COPD, Deep Vein Thrombosis (DVT), GERD/Reflux, GI Bleed, Hyperlipidemia, Hypertension, Osteoarthritis (OA), Pneumonia, Pulmonary Embolus (PE), Renal Disease, Respiratory Disorder, Sleep Apnea/CPAP/BIPAP Additional Past Medical History / Comment(s): +Covid 12-04- and early 2022, hx chronic CHF/abnormal ECHO-see report/paroxysmal afib/bilat pleural effusions w/ R sided thoracentesis. hypoglycemia. BLE neuropathy, colitis, chronic generalized pain, fluid retention, bedbound, hiatal hernia, DDD, scoliosis, ALEXIS w/ CPAP, CKD stage III, pseudoseizures - none in 1 year, basal cell skin cancer, BLE edema, CPAP and uses Home O2 24/, SOB. History of Any Multi-Drug Resistant Organisms: MRSA Year Discovered:: MRSA 09/05/21 MDRO Source:: LEG Past Surgical History: Appendectomy, Bariatric Surgery, Cholecystectomy, Heart Catheterization, Hernia Repair, Joint Replacement, Orthopedic Surgery Additional Past Surgical History / Comment(s): Gastric sleeve 2013, L inguinal hernia repair, R elbow surgery x2, total R hip arthroplasty, L knee arthroscopy/ACL surgery, R ankle ORIF, EGD, colonoscopy, basal cell skin cancer exc face, surgery for varicele,lt knee arthroscopy x2. Past Anesthesia/Blood Transfusion Reactions: Previous Problems w/ Anesthesia Additional Past Anesthesia/Blood Transfusion Reaction / Comm: STATES WAS TOLD HE WAS A DIFFICULT INTUBATION WITH GASTRIC SLEEVE SURGERY, no problems with gallbladder surgery after gastric sleeve surgery in Aug 2021 Past Psychological History: Anxiety, Bipolar, Depression, Panic Disorder, Schizoaffective Disorder Additional Psychological History / Comment(s): Pt resides with his son and daughter. He has help with PT/OT at home. He states he has been bedbound past 4 years. Minimal weigh bearing and requires assistance to move. He is unable to sit up independantly. He will call EMS transfer for appointments. Pt states he gets paranoid at times. Smoking Status: Former smoker Past Alcohol Use History: None Reported Additional Past Alcohol Use History / Comment(s): STARTED SMOKING AT AGE 15, QUIT SMOKING 1998, smoked 4 cigerettes- 1PPD. FORMER ETOH ABUSE. Pt states QUIT 1997 Past Drug Use History: None Reported Additional Drug Use History / Comment(s): PAST HX OF MARIJUANA USE, DENIES USE IN YEARS. - Past Family History Father Family Medical History: Cancer Additional Family Medical History / Comment(s): LUNG CA Mother Family Medical History: Coronary Artery Disease (CAD) Additional Family Medical History / Comment(s): Mother of an infection. Medications and Allergies Home Medications Medication Instructions Recorded Confirmed Type Rivaroxaban [Xarelto] 20 mg PO HS 07/14/19 05/21/23 History OLANZapine 20 mg PO HS 10/29/20 05/21/23 History Omeprazole 20 mg PO DAILY 03/27/21 05/21/23 History DULoxetine HCL [Cymbalta] 60 mg PO DAILY 09/05/21 05/21/23 History Albuterol Sulfate [Ventolin HFA] 1 - 2 puff INHALATION RT-Q6H PRN 10/28/21 0 05/21/23 History Tamsulosin HCl [Flomax] 0.4 mg PO DAILY 10/28/21 05/21/23 History Tiotropium 2.5 Mcg/Puff [Spiriva 2 puff INHALATION RT-DAILY 10/28/21 05/21/23 History Respimat 2.5 Mcg] Cholecalciferol [Vitamin D3 (25 25 mcg PO DAILY 09/09/22 05/21/23 History Mcg = 1000 Iu)] Metoprolol Tartrate [Lopressor] 25 mg PO BID 09/09/22 05/21/23 History Spironolactone [Aldactone] 25 mg PO DAILY 09/09/22 05/21/23 History allopurinoL [Zyloprim] 100 mg PO DAILY 09/09/22 05/21/23 History Budesonide [Pulmicort] 0.5 mg INHALATION RT-BID 03/17/23 05/21/23 History Docusate [Colace] 100 mg PO DAILY PRN 03/17/23 05/21/23 History Ipratropium-Albuterol Nebulize 3 ml INHALATION RT-QID 03/17/23 05/21/23 History [Duoneb 0.5 mg-3 mg/3 ml Soln] Potassium Chloride ER [K-Dur 20] 20 meq PO DAILY 03/17/23 05/21/23 History oxyCODONE-APAP 10-325MG [Percocet 1 tab PO Q6H PRN 03/17/23 05/21/23 History 10-325 mg] Bumetanide [BUMEX] 2 mg PO DAILY 05/21/23 05/21/23 History Ferrous Sulfate [Iron] 325 mg PO DAILY 05/21/23 05/21/23 History Lactulose [Constulose] 20 gm PO BID PRN 05/21/23 05/21/23 History acetaZOLAMIDE [Diamox Sequels] 500 mg PO DAILY 05/21/23 05/21/23 History Allergies Allergy/AdvReac Type Severity Reaction Status Date / Time codeine Allergy Severe Swelling Verified 05/21/23 16:28 OF THROAT WITH COUGH SYRUP allopurinol Allergy Unknown Verified 05/21/23 16:28 chlorpheniramine Allergy Unknown Verified 05/21/23 16:28 febuxostat [From Uloric] Allergy Unknown Verified 05/21/23 16:28 phenylephrine Allergy Unknown Verified 05/21/23 16:28 piperacillin sodium Allergy Unknown Verified 05/21/23 16:28 [From Zosyn] sulfamethoxazole Allergy Unknown Verified 05/21/23 16:28 [From Bactrim] tazobactam sodium Allergy Unknown Verified 05/21/23 16:28 [From Zosyn] trimethoprim [From Bactrim] Allergy Unknown Verified 05/21/23 16:28 buspirone [From BuSpar] AdvReac Rapid Verified 05/21/23 16:28 Heart Rate Surgical - Exam Vital Signs Temp Pulse Resp BP Pulse Ox 100.4 F H 85 19 100/45 92 L 05/21/23 13:57 05/21/23 13:57 05/21/23 13:57 05/21/23 13:57 05/21/23 13:57 General appearance: The patient is alert, oriented, appears in no acute distress. HET: Head is normocephalic and atraumatic. Neck: Supple. Heart: Regular. Lungs: Equal expansion, normal respiratory effort. Abdomen: Soft, nondistended. Extremities: Normal skin color and turgor. Neurological: Alert and oriented.. Results - Labs 05/22/23 09:40 05/26/23 07:17 Abnormal Lab Results - Last 24 Hours (Table) 05/25/23 05/26/23 Range/Units 20:18 07:17 Sodium 135 L (137-145) mmol/L Chloride 92 L (98-107) mmol/L Carbon Dioxide 37 H (22-30) mmol/L Glucose 101 H (74-99) mg/dL Vancomycin Trough 31.6 H* ug/mL Microbiology - Last 24 Hours (Table) 05/23/23 12:45 Blood Culture - Preliminary Blood 05/21/23 16:50 Blood Culture Gram Stain - Final Blood Blood Culture - Final Staphylococcus epidermidis 05/21/23 17:08 Blood Culture Gram Stain - Final Blood Blood Culture - Final Staphylococcus epidermidis 05/22/23 15:10 Gram Stain - Final Sputum Sputum Culture - Final Methicillin resist S. aureus Jackie albicans Diabetes panel 05/26/23 Range/Units 07:17 Sodium 135 L (137-145) mmol/L Potassium 3.6 (3.5-5.1) mmol/L Chloride 92 L (98-107) mmol/L Carbon Dioxide 37 H (22-30) mmol/L BUN 17 (9-20) mg/dL Creatinine 0.79 (0.66-1.25) mg/dL Glucose 101 H (74-99) mg/dL Calcium 8.9 (8.4-10.2) mg/dL Calcium panel 05/26/23 Range/Units 07:17 Calcium 8.9 (8.4-10.2) mg/dL Pituitary panel 05/26/23 Range/Units 07:17 Sodium 135 L (137-145) mmol/L Potassium 3.6 (3.5-5.1) mmol/L Chloride 92 L (98-107) mmol/L Carbon Dioxide 37 H (22-30) mmol/L BUN 17 (9-20) mg/dL Creatinine 0.79 (0.66-1.25) mg/dL Glucose 101 H (74-99) mg/dL Calcium 8.9 (8.4-10.2) mg/dL Adrenal panel 05/26/23 Range/Units 07:17 Sodium 135 L (137-145) mmol/L Potassium 3.6 (3.5-5.1) mmol/L Chloride 92 L (98-107) mmol/L Carbon Dioxide 37 H (22-30) mmol/L BUN 17 (9-20) mg/dL Creatinine 0.79 (0.66-1.25) mg/dL Glucose 101 H (74-99) mg/dL Calcium 8.9 (8.4-10.2) mg/dL Assessment and Plan Assessment: 1. 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 MRSA pneumonia 3. Acute on chronic hypoxic hypercapnic respiratory failure 4. Acute metabolic encephalopathy 5. Acute on chronic congestive heart failure 6. Large right pleural effusion 7. Atrial fibrillation 8. Chronic kidney disease 9. History of DVT/PE Plan: Please consent patient for PICC line placement. Plan for this afternoon. Thank you for this consultation. The impression and plan of care has been dictated as directed. I performed a history and examination of this patient, discussed the same with the dictator. I agree with the dictator's note ,documented as a scribe. Any additional findings or plans will be noted.
[2023-05-26] MEDS ORDERED: LIDOCAINE 1% INJ 10MG/ML (5 ML VIAL-PF) SQ ONE (11:48)
--- NOTE | 2023-05-26 12:14 | P.PN ---
Subjective Progress Note Date: 05/26/23 60-year-old mentation is coming into the hospital because of worsening shortness of breath and altered mentation. The patient was quite obtunded at time of admission. He was in acute on top of chronic hypoxic and hypercapnic respiratory failure. The patient was placed on a BiPAP at a pressure of 18/6 7 m of water and FiO2 of 60% and he was kept on a BiPAP throughout the night. His initial blood gas showed a pH of 7.29 with a pCO2 of 81. His urine just was positive for oxycodone. No history of any drug overdose. His Covid 19 testing was negative, influenza and RSV was negative. CAT scan of the brain showed no evidence of any acute changes. The chest x-ray showed a moderate sized right-sided pleural effusion along with patchy airspace disease involving the right lung which is a chronic finding. His echocardiogram from 2020 that showed a preserved LV function with severe diastolic dysfunction. Based on that the patient was hospitalized. This morning, so the patient in emergency department. The patient's condition is stable and awake and alert and is only on 3 L of oxygen by nasal cannula. He was able to communicate without any major difficulties. He had increased edema lower extremity is bilaterally. Is known to me from previous hospital admissions and the patient has chronic right-sided pleural effusion and he has undergone thoracentesis 2 in the past and his previous thoracentesis was done on 08/04/2019 with a total of 950 mL of fluid was removed and subsequently on 09/12/2019. The fluid has been a transudate on previous evaluations.Patient has an extensive medical history, including chronic hypercapnic respiratory failure related to obesity hypoventilation syndrome, and patient has a Trilogy ventilator at home, on AVAPS mode with TTV 550 ml, Max PSV 25, Min PSV 5, Max EPAP 10, Min EPAP 5. History of pulmonary embolism and previous history of DVT, paroxysmal atrial fibrillation , gait dysfunction, patient is chronically bedbound, chronic pain syndrome, diabetes type II with diabetic neuropathy, history of chronic kidney disease, unspecified, morbid obes ity with previous history of gastric sleeve surgery in 2013, history of COPD, former smoker, anxiety, depression, panic disorder, history of chronic CHF, cor pulmonale, his previous echocardiogram from October 2020 showed EF of 55-60%, mild MR, mild TR, severe pulmonary hypertension with PA systolic of 55.7 mmHg On 05/23/2023, the patient is doing well. The patient is on Bumex 2 mg IV every 12 hours and the patient has produced more than the 4 L of negative fluid balance over the past 24 hours. Remains on Aldactone. Remains on Diamox. He wants his Ferris catheter removed. Meanwhile, no new labs are available from today. His proBNP level was 590. Legionella urine antigen was negative. Is afebrile. Lower extremity edema is improving. He is on 3 L of oxygen by nasal cannula. I asked him to bring in his trilogy ventilator from home. The patient is seen today 05/24/2023 in follow-up on the regular medical floor. He is currently resting comfortably in bed. Awake and alert in no acute distress. He is maintaining O2 saturations in the mid 90s on 3 L/m per nasal cannula. She's afebrile. Hemodynamically stable. Blood cultures revealing coag-negative staph. Sputum culture revealing presumptive staph aureus. Sodium 136. Potassium 3.4. Bicarb 36. BUN 15. Creatinine 0.71. ProBNP was 590. Follow-up chest x-ray shows significant improvement in the right pleural effus ion. Continued on diuretics. Remains in a -3.5 L balance. He is continued on DuoNeb inhalations, Pulmicort inhalations, antibiotics in the form of vancomycin. Anticoagulated with Xarelto. The patient is seen today 05/25/2023 in follow-up on the regular medical floor. He is awake and alert in no acute distress. Maintaining good O2 saturations in the mid 90s on 3 L/m per nasal cannula. Afebrile. Hemodynamically stable. Sputum culture is positive for MRSA, Jackie. Follow-up blood culture revealing no growth. Sodium 136. Potassium 3.6. Bicarb 39. BUN 18. Creatinine 0.80. Glucose 101. He remains on vancomycin. Continued on Bumex and Diamox. Currently in a -1.8 L balance. Remains on bronchodilators. Anticoagulated with Xarelto. The patient is seen today 05/26/2023 in follow-up on the regular medical floor. He remains awake and alert in no acute distress. Resting comfortably in bed. No worsening shortness of breath, cough or congestion. Maintaining good O2 saturations in the 90s on 3 L/m per nasal cannula. He does utilize the BiPAP at night. Settings are 16/6 at 40% FiO2. He was found to have staph epidermidis in his blood cultures. MRSA and Jackie in his sputum culture. Follow-up blood culture revealing no growth. If he remains on vancomycin. Continued on IV diuretics and bronchodilators. Anticoagulated with Xarelto. Plan is for PICC line placement today. Sodium 135. Potassium 3.6. Bicarb 37. BUN 17. Creatinine 0.79. Vancomycin trough 31.6. Currently in a -1.8 L balance. Weight 190.5 kg. Down from 199.5 kg. Objective - Vital Signs Vital signs: Vital Signs Temp 97.7 F 05/26/23 08:00 Pulse 84 05/26/23 08:00 Resp 16 05/26/23 08:00 BP 115/63 05/26/23 08:00 Pulse Ox 95 05/26/23 08:00 FiO2 40 05/26/23 03:56 Intake & Output 05/25/23 05/26/23 05/26/23 18:59 06:59 18:59 Intake Total 1698 610 Output Total 2225 1260 2019 Balance -527 1260 -1410 Weight 190.5 kg Intake: Intake, IV Titration 500 Amount Vancomycin 2,500 mg In 500 Sodium Chloride 0.9% 500 ml 500 ml @ 167 mls/hr IVPB Q24HR [facility] Rx#: [id number] Oral 1698 110 Output: Urine 2225 1260 2019 Other: Voiding Method Urinal Urinal Urinal Diaper # Bowel Movements 1 - Exam GENERAL EXAM: Alert, pleasant 62-year-old morbidly obese male, on 3 L of oxygen, comfortable in no apparent distress. HEAD: Normocephalic/atraumatic. EYES: Normal reaction of pupils, equal size. Conjunctiva pink, sclera white. NOSE: Clear with pink turbinates. THROAT: No erythema or exudates. NECK: No masses, no JVD, no thyroid enlargement, no adenopathy. CHEST: No chest wall deformity. Symmetrical expansion. LUNGS: Equal air entry with diminished breath on the right lung base. CVS: Regular rate and rhythm, normal S1 and S2, no gallops, no murmurs, no rubs ABDOMEN: Soft, nontender. No hepatosplenomegaly, normal bowel sounds, no guarding or rigidity. EXTREMITIES: No clubbing, significant lower extremity edema, 2+ in bilateral lower extremities, no cyanosis, 2+ pulses and upper and lower extremities. MUSCULOSKELETAL: Muscle strength and tone normal. SPINE: No scoliosis or deformity SKIN: No rashes CENTRAL NERVOUS SYSTEM: No focal deficits, tone is normal in all 4 extremities. PSYCHIATRIC: Alert and oriented -3. Appropriate affect. Intact judgment and insight. - Labs CBC & Chem 7: 05/22/23 09:40 05/26/23 07:17 Labs: Abnormal Lab Results - Last 24 Hours (Table) 05/25/23 05/26/23 Range/Units 20:18 07:17 Sodium 135 L (137-145) mmol/L Chloride 92 L (98-107) mmol/L Carbon Dioxide 37 H (22-30) mmol/L Glucose 101 H (74-99) mg/dL Vancomycin Trough 31.6 H* ug/mL Microbiology - Last 24 Hours (Table) 05/23/23 12:45 Blood Culture - Preliminary Blood 05/21/23 16:50 Blood Culture Gram Stain - Final Blood Blood Culture - Final Staphylococcus epidermidis 05/21/23 17:08 Blood Culture Gram Stain - Final Blood Blood Culture - Final Staphylococcus epidermidis 05/22/23 15:10 Gram Stain - Final Sputum Sputum Culture - Final Methicillin resist S. aureus Jackie albicans Assessment and Plan Assessment: Acute on chronic hypoxic/hypercapnic respiratory failure with CO2 narcosis and altered mentation. Exacerbating factors could be fluid overload. The patient's chronic right-sided pleural effusion which remains essentially unchanged. He has signs of increased fluid overload. No reported aspiration. No clear signs of pneumonia. He was started on diuretics. Diuresing very well. He is supported with BiPAP at a pressure of 16/6 cm of water and his mental status improved. Currently on 3 L. Altered mentation secondary to CO2 narcosis, improved with BiPAP therapy and diuresis, currently alert and oriented 3 Right side pleural effusion, chronic, transudate on previous evaluations Recurrent MRSA infections currently positive sputum, on vancomycin Chronic DVT of the right leg, on Xarelto Anemia, normocytic History of A fib, current rhythm is sinus with bundle-branch block pattern Asthma, COPD HIstory of CVA, TIA DM, type 2 History of GERD History of GI bleed HIstory of DJD History of PE Hypertension Hyperlipidemia History of sleep apnea, the patient is known to have a Trilogy ventilator at home. Does have a component of obesity hypoventilation syndrome. History of bilateral peripheral neuropathy History of MRSA super morbid obesity with a BMI of 50 History of bariatric surgery History of anxiety, depression, bipolar and schizoaffective disorder Remote history of nicotine dependence Poor overall functional performance based on the above-mentioned multiple comorbidities Plan: The patient was seen and evaluated Medications and labs reviewed Continue the current treatment plan Titrate the FiO2 as tolerated Continued on vancomycin Plan is for PICC line insertion today We will continue to follow I have personally seen and examined the patient, performed the documentation and the assessment and plan as written. Number of minutes spent on the visit: 10.
[2023-05-26] MEDS: BUDESONIDE 0.5 MG/2 ML NEBU INHALATION SCH ×2 (12:20→21:26)
--- NOTE | 2023-05-26 13:35 | P.PN ---
Subjective HISTORY OF PRESENT ILLNESS: This is 62-year-old male who follows in the office with Dr. Lu. Patient has a history of congestive heart failure, atrial fibrillation, COPD, DVT, hypertension, hyperlipidemia, and obstructive sleep apnea. Patient is admitted to the hospital secondary to respiratory failure with pneumonia and congestive heart failure. Patient examined this morning at the bedside. He denies chest pain or pressure. He continues to report shortness of breath and states he does not feel acutely able to take a deep breath. However, he states his breathing is improved compared to yesterday. He is currently on 3 L nasal cannula maintaining oxygen saturations greater than 92%. He remains on IV Bumex: 2mg BID. Fluid balance over the last 24 hours is -3553 mL. Patient's kidney function remains stable. BUN 15. Creatinine 0.71. 05/25/2023 Patient examined this morning at the bedside. Patient denies chest pain or pressure. He reports improvement in his shortness of breath. He denies shortness of breath at rest, however he states that he gets short of breath rather quickly with minimal activity such as rolling over in the bed. He remains on IV Bumex. His lower extremity edema is improving compared to yesterday. Kidney function remained stable. creatinine today 0.80. Vital signs are stable. 05/26/2023 Patient examined this morning at the bedside. Patient is currently wearing BiPAP. He denies chest pain or pressure. He continues to report shortness of breath with minimal exertion such as turning in the bed. He remains on IV Bumex. He continues to have lower extremity edema. Kidney function remains stable. Creatinine today 0.79. Fluid balance over the last 24 hours is -1787 m L. PHYSICAL EXAM: VITAL SIGNS: Reviewed. GENERAL: Well-developed in no acute distress. NECK: Supple. No JVD or thyromegaly LUNGS: Respirations even and unlabored. Lungs diminished to auscultation bilaterally. HEART: Regular rate and rhythm. S1 and S2 heard. EXTREMITIES: Normal range of motion. No clubbing or cyanosis. Peripheral pulses intact. 23+ bilateral lower extremity edema ASSESSMENT: Shortness of breath Acute hypoxic and hypercapnic respiratory failure Right upper lobe pneumonia Large right pleural effusion Acute on chronic heart failure with preserved ejection fraction, 50-55%. Moderate pulmonary hypertension Valvular heart disease History of DVT Paroxysmal atrial fibrillation Hypertension Hyperlipidemia Obstructive sleep apnea PLAN: Continue current cardiac medications Continue anticoagulation with Xarelto Continue current dose of IV Bumex Daily weights, accurate I&O, and monitor kidney function Further recommendations pending patient's course Nurse practitioner note has been reviewed by physician. Signing provider agrees with the documented findings, assessment, and plan of care. Objective - Vital Signs Vital signs: Vital Signs Temp 97.7 F 05/26/23 08:00 Pulse 76 05/26/23 12:42 Resp 16 05/26/23 12:00 BP 96/54 05/26/23 12:00 Pulse Ox 94 L 05/26/23 12:00 FiO2 40 05/26/23 03:56 Intake & Output 05/25/23 05/26/23 05/26/23 18:59 06:59 18:59 Intake Total 1698 835 Output Total 2225 1260 2019 Balance -527 -3896 -1188 Weight 190.5 kg Intake: Intake, IV Titration 500 Amount Vancomycin 2,500 mg In 500 Sodium Chloride 0.9% 500 ml 500 ml @ 167 mls/hr IVPB Q24HR [facility] Rx#: [id number] Oral 1698 335 Output: Urine 2224 [id number] Other: Voiding Method Urinal Urinal Urinal Diaper # Bowel Movements 1 - Labs CBC & Chem 7: 05/22/23 09:40 05/26/23 07:17 Labs: Abnormal Lab Results - Last 24 Hours (Table) 05/25/23 05/26/23 Range/Units 20:18 07:17 Sodium 135 L (137-145) mmol/L Chloride 92 L (98-107) mmol/L Carbon Dioxide 37 H (22-30) mmol/L Glucose 101 H (74-99) mg/dL Vancomycin Trough 31.6 H* ug/mL Microbiology - Last 24 Hours (Table) 05/23/23 12:45 Blood Culture - Preliminary Blood 05/21/23 16:50 Blood Culture Gram Stain - Final Blood Blood Culture - Final Staphylococcus epidermidis 05/21/23 17:08 Blood Culture Gram Stain - Final Blood Blood Culture - Final Staphylococcus epidermidis
--- NOTE | 2023-05-26 14:26 | P.PN ---
Subjective Progress Note Date: 05/26/23 Pt doing well today. PICC line placement for IV vancomycin outpatient Gen: awake, alert HEENT: normocephalic, atraumatic, good hearing acuity, moist mucous membranes Resp: good air exchange, breathing comfortably with no accessory muscle use, coarse breath sounds CVS: good distal perfusion x 4, regular rate and rhythm without murmurs GI: soft, NTTP, ND : no SPT, no CVAT, vidales catheter not present MSK: Bilateral pitting edema, no clubbing Neuro: non-focal, moving all extremities Psych: cooperative, euthymic mood Hospital course: Patient is a 62-year-old male with PMH of atrial fibrillation, COPD, CHF, DVT/PE, ALEXIS, CKD stage III presents ED for altered mentation and difficulty breathing. It appears that patient was admitted at [facility] from 05/03-05/14 for CHF exacerbation. In the ED, patient required BiPAP 18/6 FiO2 of 60%. CBC showed WBC count of 12.7 and hemoglobin of 11.8. Coagulation panel within normal limits. ABG showed pH of 7.29, pCO2 of 81. CMP showed sodium 135, chloride of 90, bicarb of 39, glucose 100, alkaline phosphatase of 186, albumin of 3.3. Ammonia was 10. Troponin was less than 0.012. Urinalysis showed moderate leukocyte esterase with 9 WBC. UDS positive for oxycodone. Influenza, RSV, COVID-[address] brain showed no acute intracranial hemorrhage or ischemic changes. Chest x-ray showed moderate to large right pleural effusion with worsening patchy airspace opacity throughout the right upper lung. EKG showed sinus rhythm with ventricular rate of 81, Q waves in leads II and aVF. Patient is admitted for altered mentation and respiratory failure. Echo 09/18 shows preserved EF with severe diastolic dysfunction. Due to his mentation, initial plan was to transfer the patient to ICU. However, patient's mentation improved and therefore he was transferred to cardiac stepdown rather than ICU. He was started on Bumex 2 mg IV twice daily. His blood cultures are positive for gram-positive croci, which ended up growing coag-negative staph. Infectious disease was consulted, recommended sputum culture which ended up growing MRSA. Patient was being treated with vancomycin. Assessment: MRSA pneumonia Acute metabolic encephalopathy Acute on chronic hypoxic hypercapnic respiratory failure Acute on chronic diastolic CHF exacerbation Large right pleural effusion Sepsis likely related to pneumonia Chronic conditions: Atrial fibrillation, COPD, CHF, DVT/PE, ALEXIS, CKD stage III Plan: Today, patient is afebrile, 107/63, heart rate 63, 97% on 3 L Basic metabolic panel shows sodium 136, chloride 93, BUN of 18, CO2 of 39 Case discussed with infectious disease, patient will need IV antibiotics, will likely need intermediate placement Ordered PICC line today Continue Bumex 2 mg IV twice a day Continue Diamox 500mg PO daily Continue vancomycin, follow trough level for toxicity Continue Xarelto 20 mg Follow blood cultures Patient is full code Objective - Vital Signs Vital signs: Vital Signs Temp 97.7 F 05/26/23 08:00 Pulse 76 05/26/23 12:42 Resp 16 05/26/23 12:00 BP 96/54 05/26/23 12:00 Pulse Ox 94 L 05/26/23 12:00 FiO2 40 05/26/23 03:56 Intake & Output 05/25/23 05/26/23 05/26/23 18:59 06:59 18:59 Intake Total 1698 835 Output Total 2225 1260 2019 Balance -527 -9351 -118 Weight 190.5 kg Intake: Intake, IV Titration 500 Amount Vancomycin 2,500 mg In 500 Sodium Chloride 0.9% 500 ml 500 ml @ 167 mls/hr IVPB Q24HR [facility] Rx#: [id number] Oral 1698 335 Output: Urine 2225 1260 2019 Other: Voiding Method Urinal Urinal Urinal Diaper # Bowel Movements 1 - Labs CBC & Chem 7: 05/22/23 09:40 05/26/23 07:17 Labs: Abnormal Lab Results - Last 24 Hours (Table) 05/25/23 05/26/23 Range/Units 20:18 07:17 Sodium 135 L (137-145) mmol/L Chloride 92 L (98-107) mmol/L Carbon Dioxide 37 H (22-30) mmol/L Glucose 101 H (74-99) mg/dL Vancomycin Trough 31.6 H* ug/mL Microbiology - Last 24 Hours (Table) 05/23/23 12:45 Blood Culture - Preliminary Blood 05/21/23 16:50 Blood Culture Gram Stain - Final Blood Blood Culture - Final Staphylococcus epidermidis 05/21/23 17:08 Blood Culture Gram Stain - Final Blood Blood Culture - Final Staphylococcus epidermidis
[2023-05-26 14:40] VITALS: BMI 49.8
--- NOTE | 2023-05-26 15:09 | P.OP ---
Description of Procedure: Date of Procedure: 05/26/23 Preoperative Diagnosis: need for IV antibiotics, MRSA sputum Postoperative Diagnosis: Same Procedure(s) Performed: Ultrasound guided right basilic vein peripherally inserted central catheter placement with flourusocpic assistance left upper extremity venogram Anesthesia: local Surgeon:Barrington Estimated Blood Loss (ml): 2 Pathology: none sent Condition: stable Disposition: floor Indications for Procedure: 62 year old currently being treated at the hospital with IV Abx presents for elective PICC line placement. Description of Procedure: After written and informed consent was obtained the patient and all risks, benefits and competitions were described the patient was brought to the Surve[facility] and laid in a supine position with his left arm outstretched on an armboard. The area of the right arm was prepped and draped in usual sterile fashion. Gerard eout was performed in normal fashion. Utilizing ultrasound the left basilic vein was visualized and shown to be compressible without any visible thrombus. Under ultrasound guidance the basilic vein was then cannulated with a micropuncture needle and wire was placed under direct visualization of fluoroscopy. Introducer sheath was then placed. The single lumen catheter was measured and cut to the appropriate length which was 46 cm. The catheter was then guided through the breakaway sheath and the sheath however at the level of the mid upper arm there was resistance. Wire was replaced and attempted to readvance without success. The inner sheath was replaced and angiogram was performed from this showing a widely patent vessel with a large valve at this are. The catheter was then replaced and with gentle pressure, advanced through the valve. The tearaway was removed with good positioning was visualized under fluoroscopy. The catheter was pulled and flushed easily. It was then secured in place in normal fashion. Patient tolerated the procedure well was sent back to his room for recovery.
[2023-05-26] MEDS: HYDROPHILIC CREAM 180 GM TUBE TOPICAL SCH (17:06)
[2023-05-26 20:42] VITALS: RESP 18
[2023-05-26] MEDS: SODIUM CHLORIDE 0.9% 1,000 ML IV SCH (20:42)
[2023-05-26] MEDS: RIVAROXABAN 20 MG TAB PO SCH (20:50)
--- NOTE | 2023-05-26 22:49 | P.PN ---
Subjective Progress Note Date: 05/26/23 Principal diagnosis: Bacteremia and possible pneumonia Patient is a 62-year-old male with multiple comorbidities including atrial fibrillation COPD CHF DVT PE has been brought into the hospital few days ago for evaluation of altered mentation and difficulty breathing, patient did have low-grade fever right lung infiltrate concerning for pneumonia patient did have a positive blood culture with coagulase negative staph sputum is growing staph aureus On today's evaluation that is 05/26/2023, patient denies having any fever or any chills patient is breathing slightly comfortably and is currently on 3 L nasal cannula oxygen repeat denies any chest pain or worsening, sputum production no abdominal pain or diarrhea Objective - Vital Signs Vital signs: Vital Signs Temp 97.7 F 05/26/23 08:00 Pulse 84 05/26/23 08:00 Resp 16 05/26/23 08:00 BP 115/63 05/26/23 08:00 Pulse Ox 95 05/26/23 08:00 FiO2 40 05/26/23 03:56 Intake & Output 05/25/23 05/26/23 05/26/23 18:59 06:59 18:59 Intake Total 1698 610 Output Total 2225 1260 2019 Balance -527 -8131 -1410 Weight 190.5 kg Intake: Intake, IV Titration 500 Amount Vancomycin 2,500 mg In 500 Sodium Chloride 0.9% 500 ml 500 ml @ 167 mls/hr IVPB Q24HR [facility] Rx#: [id number] Oral 1698 110 Output: Urine 2225 1260 2019 Other: Voiding Method Urinal Urinal Urinal Diaper # Bowel Movements 1 - Exam GENERAL DESCRIPTION: Middle-aged male lying in bed in no distress RESPIRATORY SYSTEM: Unlabored breathing , decreased breath sounds at bases HEART: S1 S2 regular rate and rhythm , ABDOMEN: Soft , no tenderness EXTREMITIES: Diffuse swelling bilateral lower extremity - Labs CBC & Chem 7: 05/22/23 09:40 05/26/23 07:17 Labs: Abnormal Lab Results - Last 24 Hours (Table) 05/25/23 05/26/23 Range/Units 20:18 07:17 Sodium 135 L (137-145) mmol/L Chloride 92 L (98-107) mmol/L Carbon Dioxide 37 H (22-30) mmol/L Glucose 101 H (74-99) mg/dL Vancomycin Trough 31.6 H* ug/mL Microbiology - Last 24 Hours (Table) 05/23/23 12:45 Blood Culture - Preliminary Blood 05/21/23 16:50 Blood Culture Gram Stain - Final Blood Blood Culture - Final Staphylococcus epidermidis 05/21/23 17:08 Blood Culture Gram Stain - Final Blood Blood Culture - Final Staphylococcus epidermidis 05/22/23 15:10 Gram Stain - Final Sputum Sputum Culture - Final Methicillin resist S. aureus Jackie albicans Assessment and Plan (1) Positive blood culture Current Visit: Yes Status: Acute Code(s): R78.81 - BACTEREMIA SNOMED Code(s): 648482710 (2) Pneumonia Current Visit: Yes Status: Acute Code(s): J18.9 - PNEUMONIA, UNSPECIFIED ORGANISM SNOMED Code(s): 624731270 Plan: 1patient with gram-positive bacteremia in this patient presented to hospital with sepsis patient did have a fever elevated white count predominantly respiratory symptoms and evidence of pulmonary infiltrate on chest x-ray concerning for possible pneumonia. 2patient to have stage II sacral pressure ulcer with mostly excoriation of the skin but no significant slough tissue or redness was noticed clinically doubt the source of this bacteremia Blood culture had been finalized with coagulase negative staph likely skin contamination blood culture has been repeated 4-patient's sputum is currently growing MRSA, we will continue the patient on vancomycin pharmacy to dose 10 days to finish course of treatment , picc has been placed and script for vancomycin was given to shoe caser Time with Patient: Less than 30
[2023-05-26] MEDS: OLANZapine 10 MG TAB PO SCH (23:47)
[2023-05-27] MEDS: IPRATROPIUM-ALBUTEROL 3 ML NEB INHALATION SCH ×3 (07:58→16:11)
[2023-05-27] MEDS: BUDESONIDE 0.5 MG/2 ML NEBU INHALATION SCH (07:58)
[2023-05-27] MEDS: VANCOMYCIN 2,500 MG in SODIUM CHLORIDE 0.9% 500 ML 500 ML IVPB SCH (08:02)
[2023-05-27] MEDS: BUMETANIDE 0.25 MG/ML 4 ML VIAL IVP SCH (08:02)
[2023-05-27 08:03] LABS: Anisocytosis Slight; Basophils % (A) 1 %; Eosinophils # (A) 0.2 k/uL (0-0.7); Eosinophils % (A) 3 %; HCT 36.9 % (39.0-53.0); HGB 11.1 gm/dL (13.0-17.5); Hypochromasia Marked; Lymphocytes # (A) 0.5 k/uL (1.0-4.8); Lymphocytes % (A) 10 %; MCH 27.2 pg (25.0-35.0); MCHC 30.2 g/dL (31.0-37.0); MCV 90.3 fL (80.0-100.0); Mean Platelet Volume 7.7; Monocytes # (A) 0.4 k/uL (0-1.0); Monocytes % (A) 8 %; Neutrophils # (A) 3.4 k/uL (1.3-7.7); Neutrophils % (A) 76 %; Platelet Count 248 k/uL (150-450); RBC 4.09 m/uL (4.30-5.90); RDW 16.1 % (11.5-15.5); WBC 4.5 k/uL (3.8-10.6)
[2023-05-27] MEDS: oxyCODONE-APAP 10-325MG 1 EACH TAB PO PRN ×2 (08:03→13:32)
[2023-05-27] MEDS: acetaZOLAMIDE 250 MG TAB PO SCH (08:04)
[2023-05-27] MEDS: PANTOPRAZOLE 40 MG TABLET PO SCH (08:04)
[2023-05-27] MEDS: TAMSULOSIN 0.4 MG CAP.ER.24H PO SCH (08:04)
[2023-05-27] MEDS: METOPROLOL TARTRATE 25 MG TAB PO SCH (08:04)
[2023-05-27] MEDS: DULoxetine HCL 60 MG CAPSULE.DR PO SCH (08:04)
[2023-05-27] MEDS: HYDROPHILIC CREAM 180 GM TUBE TOPICAL SCH (08:04)
[2023-05-27] MEDS: SPIRONOLACTONE 25 MG TAB PO SCH (08:04)
[2023-05-27] MEDS: allopurinoL 100 MG TAB PO SCH (08:06)
[2023-05-27 08:42] LABS: African American GFR (CKD) >90 (>60 ml/min/1.73 sqM); Blood Urea Nitrogen 20 mg/dL (9-20); Chloride 90 mmol/L (98-107); Glucose 91 mg/dL (74-99); Magnesium 1.9 mg/dL (1.6-2.3); Non-African American GFR(CKD) >90 (>60 ml/min/1.73 sqM); Potassium 3.7 mmol/L (3.5-5.1); Sodium 136 mmol/L (137-145)
[2023-05-27 08:49] LABS: Anion Gap 7 mmol/L; Carbon Dioxide 39 mmol/L (22-30)
--- NOTE | 2023-05-27 11:56 | XR ---
EXAMINATION TYPE: XR chest 1V portable DATE OF EXAM: 05/27/2023 11:51 AM COMPARISON: Chest radiographs from 05/24/2023 TECHNIQUE: XR chest 1V portable Frontal view of the chest. CLINICAL INDICATION:Male, 62 years old with history of CHF; FINDINGS: The patient is rotated. Lungs/Pleura: There is a moderate right pleural effusion with associated atelectasis. No left pleural effusion pneumothorax or focal consolidation. Pulmonary vascularity: Unremarkable. Heart/mediastinum: Cardiomediastinal silhouette is partially obscured due to overlying and adjacent o pacities. Musculoskeletal: No acute osseous pathology. Lines/Tubes: Right-sided PICC line with distal tip at the superior vena cava. IMPRESSION: Rotated exam moderate right pleural effusion with associated atelectasis. PICC line appears within the superior vena cava.
--- NOTE | 2023-05-27 12:08 | P.PN ---
Subjective Progress Note Date: 05/27/23 60-year-old mentation is coming into the hospital because of worsening shortness of breath and altered mentation. The patient was quite obtunded at time of admission. He was in acute on top of chronic hypoxic and hypercapnic respiratory failure. The patient was placed on a BiPAP at a pressure of 18/6 7 m of water and FiO2 of 60% and he was kept on a BiPAP throughout the night. His initial blood gas showed a pH of 7.29 with a pCO2 of 81. His urine just was positive for oxycodone. No history of any drug overdose. His Covid 19 testing was negative, influenza and RSV was negative. CAT scan of the brain showed no evidence of any acute changes. The chest x-ray showed a moderate sized right-sided pleural effusion along with patchy airspace disease involving the right lung which is a chronic finding. His echocardiogram from 2020 that showed a preserved LV function with severe diastolic dysfunction. Based on that the patient was hospitalized. This morning, so the patient in emergency department. The patient's condition is stable and awake and alert and is only on 3 L of oxygen by nasal cannula. He was able to communicate without any major difficulties. He had increased edema lower extremity is bilaterally. Is known to me from previous hospital admissions and the patient has chronic right-sided pleural effusion and he has undergone thoracentesis 2 in the past and his previous thoracentesis was done on 08/04/2019 with a total of 950 mL of fluid was removed and subsequently on 09/12/2019. The fluid has been a transudate on previous evaluations.Patient has an extensive medical history, including chronic hypercapnic respiratory failure related to obesity hypoventilation syndrome, and patient has a Trilogy ventilator at home, on AVAPS mode with TTV 550 ml, Max PSV 25, Min PSV 5, Max EPAP 10, Min EPAP 5. History of pulmonary embolism and previous history of DVT, paroxysmal atrial fibrillation , gait dysfunction, patient is chronically bedbound, chronic pain syndrome, diabetes type II with diabetic neuropathy, history of chronic kidney disease, unspecified, morbid obes ity with previous history of gastric sleeve surgery in 2013, history of COPD, former smoker, anxiety, depression, panic disorder, history of chronic CHF, cor pulmonale, his previous echocardiogram from October 2020 showed EF of 55-60%, mild MR, mild TR, severe pulmonary hypertension with PA systolic of 55.7 mmHg On 05/23/2023, the patient is doing well. The patient is on Bumex 2 mg IV every 12 hours and the patient has produced more than the 4 L of negative fluid balance over the past 24 hours. Remains on Aldactone. Remains on Diamox. He wants his Ferris catheter removed. Meanwhile, no new labs are available from today. His proBNP level was 590. Legionella urine antigen was negative. Is afebrile. Lower extremity edema is improving. He is on 3 L of oxygen by nasal cannula. I asked him to bring in his trilogy ventilator from home. The patient is seen today 05/24/2023 in follow-up on the regular medical floor. He is currently resting comfortably in bed. Awake and alert in no acute distress. He is maintaining O2 saturations in the mid 90s on 3 L/m per nasal cannula. She's afebrile. Hemodynamically stable. Blood cultures revealing coag-negative staph. Sputum culture revealing presumptive staph aureus. Sodium 136. Potassium 3.4. Bicarb 36. BUN 15. Creatinine 0.71. ProBNP was 590. Follow-up chest x-ray shows significant improvement in the right pleural effus ion. Continued on diuretics. Remains in a -3.5 L balance. He is continued on DuoNeb inhalations, Pulmicort inhalations, antibiotics in the form of vancomycin. Anticoagulated with Xarelto. The patient is seen today 05/25/2023 in follow-up on the regular medical floor. He is awake and alert in no acute distress. Maintaining good O2 saturations in the mid 90s on 3 L/m per nasal cannula. Afebrile. Hemodynamically stable. Sputum culture is positive for MRSA, Jackie. Follow-up blood culture revealing no growth. Sodium 136. Potassium 3.6. Bicarb 39. BUN 18. Creatinine 0.80. Glucose 101. He remains on vancomycin. Continued on Bumex and Diamox. Currently in a -1.8 L balance. Remains on bronchodilators. Anticoagulated with Xarelto. The patient is seen today 05/26/2023 in follow-up on the regular medical floor. He remains awake and alert in no acute distress. Resting comfortably in bed. No worsening shortness of breath, cough or congestion. Maintaining good O2 saturations in the 90s on 3 L/m per nasal cannula. He does utilize the BiPAP at night. Settings are 16/6 at 40% FiO2. He was found to have staph epidermidis in his blood cultures. MRSA and Jackie in his sputum culture. Follow-up blood culture revealing no growth. If he remains on vancomycin. Continued on IV diuretics and bronchodilators. Anticoagulated with Xarelto. Plan is for PICC line placement today. Sodium 135. Potassium 3.6. Bicarb 37. BUN 17. Creatinine 0.79. Vancomycin trough 31.6. Currently in a -1.8 L balance. Weight 190.5 kg. Down from 199.5 kg. The patient is seen today 05/27/2023 in follow-up on the regular medical floor. He is maintaining good O2 saturations in the upper 90s on 3 L/m per nasal cannula. Afebrile. Hemodynamically stable. Chest x-ray reveals stable chronic right pleural effusion. Follow-up blood cultures revealed no growth. Sputum culture was positive for MRSA, Jackie. White count 4.5. Hemoglobin 11.1. Platelets 248. Sodium 136. Potassium 3.7. Bicarb 39. BUN 20. Creatinine 0.81. He is continued on DuoNeb inhalations, Pulmicort inhalations. Antibiotics in the form of vancomycin. Anticoagulated with Xarelto. Transition to oral diuretics. PICC line in place. Objective - Vital Signs Vital signs: Vital Signs Temp 98.4 F 05/27/23 08:00 Pulse 78 05/27/23 11:56 Resp 18 05/27/23 11:56 BP 106/51 05/27/23 08:00 Pulse Ox 97 05/27/23 08:00 FiO2 30 05/27/23 07:58 Intake & Output 05/26/23 05/27/23 05/27/23 18:59 06:59 18:59 Intake Total 1060 540 540 Output Total 2380 1225 1200 Balance -1725 -407 -934 Weight 190.5 kg 189.9 kg Intake: Intake, IV Titration 500 Amount Vancomycin 2,500 mg In 500 Sodium Chloride 0.9% 500 ml 500 ml @ 167 mls/hr IVPB Q24HR [facility] Rx#: [id number] Oral 560 540 540 Output: Urine 2380 1225 1200 Other: Voiding Method Urinal Urinal Urinal - Exam GENERAL EXAM: Alert, 62-year-old morbidly obese male, on 3 L of oxygen, in no apparent distress. HEAD: Normocephalic/atraumatic. EYES: Normal reaction of pupils, equal size. Conjunctiva pink, sclera white. NOSE: Clear with pink turbinates. THROAT: No erythema or exudates. NECK: No masses, no JVD, no thyroid enlargement, no adenopathy. CHEST: No chest wall deformity. Symmetrical expansion. LUNGS: Equal air entry with diminished breath on the right lung base. CVS: Regular rate and rhythm, normal S1 and S2, no gallops, no murmurs, no rubs ABDOMEN: Soft, nontender. No hepatosplenomegaly, normal bowel sounds, no guarding or rigidity. EXTREMITIES: No clubbing, significant lower extremity edema, 2+ in bilateral lower extremities, 2+ pulses and upper and lower extremities. MUSCULOSKELETAL: Muscle strength and tone normal. SPINE: No scoliosis or deformity SKIN: No rashes CENTRAL NERVOUS SYSTEM: No focal deficits, tone is normal in all 4 extremities. PSYCHIATRIC: Alert and oriented -3. Appropriate affect. Intact judgment and insight. - Labs CBC & Chem 7: 05/27/23 07:02 05/27/23 07:02 Labs: Abnormal Lab Results - Last 24 Hours (Table) 05/27/23 05/27/23 Range/Units 07:02 07:02 RBC 4.09 L (4.30-5.90) m/uL Hgb 11.1 L (13.0-17.5) gm/dL Hct 36.9 L (39.0-53.0) % MCHC 30.2 L (31.0-37.0) g/dL RDW 16.1 H (11.5-15.5) % Lymphocytes # 0.5 L (1.0-4.8) k/uL Sodium 136 L (137-145) mmol/L Chloride 90 L (98-107) mmol/L Carbon Dioxide 39 H (22-30) mmol/L Microbiology - Last 24 Hours (Table) 05/23/23 12:45 Blood Culture - Preliminary Blood Assessment and Plan Assessment: Acute on chronic hypoxic/hypercapnic respiratory failure with CO2 narcosis and altered mentation. Exacerbating factors could be fluid overload. The patient's chronic right-sided pleural effusion which remains essentially unchanged. He has signs of increased fluid overload. No reported aspiration. No clear signs of pneumonia. He was started on diuretics. Diuresing very well. His mental status improved. Currently on 3 L. Altered mentation secondary to CO2 narcosis, improved with BiPAP therapy and diuresis, currently alert and oriented 3 Right side pleural effusion, chronic, transudate on previous evaluations Recurrent MRSA infections currently positive sputum, on vancomycin Chronic DVT of the right leg, on Xarelto Anemia, normocytic History of A fib, current rhythm is sinus with bundle-branch block pattern Asthma, COPD HIstory of CVA, TIA DM, type 2 History of GERD History of GI bleed HIstory of DJD History of PE Hypertension Hyperlipidemia History of sleep apnea, the patient is known to have a Trilogy ventilator at home. Does have a component of obesity hypoventilation syndrome. History of bilateral peripheral neuropathy History of MRSA super morbid obesity with a BMI of 50 History of bariatric surgery History of anxiety, depression, bipolar and schizoaffective disorder Remote history of nicotine dependence Poor overall functional performance based on the above-mentioned multiple comorbidities Plan: The patient was seen and evaluated Medications and labs reviewed Continue the current treatment plan Titrate the FiO2 as tolerated Continued on vancomycin PICC line in place Plan is for home with home care I have personally seen and examined the patient, performed the documentation and the assessment and plan as written. Number of minutes spent on the visit: 10.
[2023-05-27 12:36] VITALS: BP 92/56; TEMP 98.5
--- NOTE | 2023-05-27 13:16 | P.PN ---
Subjective Progress Note Date: 05/27/23 HISTORY OF PRESENT ILLNESS: This is 62-year-old male who follows in the office with Dr. Lu. Patient has a history of congestive heart failure, atrial fibrillation, COPD, DVT, hyper tension, hyperlipidemia, and obstructive sleep apnea. Patient is admitted to the hospital secondary to respiratory failure with pneumonia and congestive heart failure. Patient examined this morning at the bedside. He denies chest pain or pressure. He continues to report shortness of breath and states he does not feel acutely able to take a deep breath. However, he states his breathing is improved compared to yesterday. He is currently on 3 L nasal cannula maintaining oxygen saturations greater than 92%. He remains on IV Bumex: 2mg BID. Fluid balance over the last 24 hours is -3553 mL. Patient's kidney function remains stable. BUN 15. Creatinine 0.71. 05/25/2023 Patient examined this morning at the bedside. Patient denies chest pain or pressure. He reports improvement in his shortness of breath. He denies shortness of breath at rest, however he states that he gets short of breath rather quickly with minimal activity such as rolling over in the bed. He remains on IV Bumex. His lower extremity edema is improving compared to yesterday. Kidney function remained stable. creatinine today 0.80. Vital signs are stable. 05/26/2023 Patient examined this morning at the bedside. Patient is currently wearing BiPAP. He denies chest pain or pressure. He continues to report shortness of breath with minimal exertion such as turning in the bed. He remains on IV Bumex. He continues to have lower extremity edema. Kidney function remains stable. Creatinine today 0.79. Fluid balance over the last 24 hours is -1787 mL. 05/27/2023 Patient examined this morning at the bedside. He denies chest pain or pressure. He reports improvement in his shortness of breath compared to yesterday. He remains on IV Bumex. Vital signs are stable. Discharge planning in process to ECF today. PHYSICAL EXAM: VITAL SIGNS: Reviewed. GENERAL: Well-developed in no acute distress. NECK: Supple. No JVD or thyromegaly LUNGS: Respirations even and unlabored. Lungs diminished to auscultation bilaterally. HEART: Regular rate and rhythm. S1 and S2 heard. EXTREMITIES: Normal range of motion. No clubbing or cyanosis. Peripheral pulses intact. 2+ bilateral lower extremity edema ASSESSMENT: Shortness of breath Acute hypoxic and hypercapnic respiratory failure Right upper lobe pneumonia Large right pleural effusion Acute on chronic heart failure with preserved ejection fraction, 50-55%. Moderate pulmonary hypertension Valvular heart disease History of DVT Paroxysmal atrial fibrillation Hypertension Hyperlipidemia Obstructive sleep apnea PLAN: Continue current cardiac medications Continue anticoagulation with Xarelto Discontinue IV Bumex Resume oral Bumex 2 mg daily Patient is stable for discharge today from a cardiac standpoint Nurse practitioner note has been reviewed by physician. Signing provider agrees with the documented findings, assessment, and plan of care. Objective - Vital Signs Vital signs: Vital Signs Temp 98.5 F 05/27/23 12:00 Pulse 80 05/27/23 12:05 Resp 18 05/27/23 12:05 BP 92/56 05/27/23 12:00 Pulse Ox 94 L 05/27/23 12:00 FiO2 30 05/27/23 07:58 Intake & Output 05/26/23 05/27/23 05/27/23 18:59 06:59 18:59 Intake Total 1060 540 540 Output Total 2380 1225 1200 Balance -1320 -685 -660 Weight 190.5 kg 189.9 kg Intake: Intake, IV Titration 500 Amount Vancomycin 2,500 mg In 500 Sodium Chloride 0.9% 500 ml 500 ml @ 167 mls/hr IVPB Q24HR [facility] Rx#: [id number] Oral 560 540 540 Output: Urine 2380 1225 1200 Other: Voiding Method Urinal Urinal Urinal - Labs CBC & Chem 7: 05/27/23 07:02 05/27/23 07:02 Labs: Abnormal Lab Results - Last 24 Hours (Table) 05/27/23 05/27/23 Range/Units 07:02 07:02 RBC 4.09 L (4.30-5.90) m/uL Hgb 11.1 L (13.0-17.5) gm/dL Hct 36.9 L (39.0-53.0) % MCHC 30.2 L (31.0-37.0) g/dL RDW 16.1 H (11.5-15.5) % Lymphocytes # 0.5 L (1.0-4.8) k/uL Sodium 136 L (137-145) mmol/L Chloride 90 L (98-107) mmol/L Carbon Dioxide 39 H (22-30) mmol/L Microbiology - Last 24 Hours (Table) 05/23/23 12:45 Blood Culture - Preliminary Blood
--- NOTE | 2023-05-27 13:30 | P.DS ---
Providers Date of admission: 05/21/23 16:22 Expected date of discharge: 05/27/23 Attending physician: Sarah Murguia DO Consults: 05/21/23 16:22 Consult Physician Routine Consulting Provider: Ynes Hendrickson Consult Reason/Comments: Respiratory failure on BiPAP, pneumonia Do you want consulting provider notified?: Yes 05/22/23 13:50 Consult Physician Routine Consulting Provider: Guy Lu Consult Reason/Comments: CHF exa Do you want consulting provider notified?: Yes 05/23/23 14:38 Consult Physician Routine Consulting Provider: Leonides Whitt Consult Reason/Comments: gram + bacteremia Do you want consulting provider notified?: Yes Primary care physician: Antelmo Crenshaw MD Hospital Course: Discharge Diagnosis: MRSA pneumonia Acute metabolic encephalopathy Acute on chronic hypoxic hypercapnic respiratory failure Acute on chronic diastolic CHF exacerbation Large right pleural effusion Sepsis likely related to pneumonia Hospital Course: Patient is a 62-year-old male with PMH of atrial fibrillation, COPD, CHF, DVT/PE, ALEXIS, CKD stage III presents ED for altered mentation and difficulty breathing. The patient was admitted at [facility] from 05/03-05/14 for CHF exacerbation. In the ED, patient required BiPAP 18/6 FiO2 of 60%. CBC showed WBC count of 12.7 and hemoglobin of 11.8. Coagulation panel within normal limits. ABG showed pH of 7.29, pCO2 of 81. CMP showed sodium 135, chloride of 90, bicarb of 39, glucose 100, alkaline phosphatase of 186, albumin of 3.3. Ammonia was 10. Troponin was less than 0.012. Urinalysis showed moderate leukocyte esterase with 9 WBC. UDS positive for oxycodone. Influenza, RSV, COVID-[address] brain showed no acute intracranial hemorrhage or ischemic changes. Chest x-ray showed moderate to large right pleural effusion with worsening patchy airspace opacity throughout the right upper lung. EKG showed sinus rhythm with ventricular rate of 81, Q waves in leads II and aVF. Patient is admitted for altered mentation and respiratory failure. Echo 09/18 shows preserved EF with severe diastolic dysfunction. Due to his mentation, initial plan was to transfer the patient to ICU. However, patient's mentation improved with BiPAP and therefore he was transferred to cardiac stepdown rather than ICU. He was started on Bumex 2 mg IV twice daily. His blood cultures are positive for gram-positive cocci, which ended up growing coag-negative staph. Infectious disease was consulted, recommended sputum culture which ended up growing MRSA. Patient was being treated with vancomycin. Patient to be discharged on IV vancomycin for MRSA pneumonia. At the time of discharge, IV Bumex was changed to oral Bumex. Patient to follow-up with pulmonology, cardiology and PCP. Patient seen and examined at bedside. Vital signs reviewed and stable. General: nontoxic, no distress, appears at stated age, obese Derm: warm, dry Head: atraumatic, normocephalic, symmetric Eyes: EOMI, no lid lag, anicteric sclera Mouth: no lip lesion, mucus membranes moist Cardiovascular: S1S2 reg, no murmur Lungs: CTA bilateral, no rhonchi, no rales , no accessory muscle use, supplemental oxygen Abdominal: soft, nontender to palpation, no guarding, no appreciable organomegaly Ext: no gross muscle atrophy, 2+ pitting edema, no contractures Neuro: CN II-XI grossly intact, no focal neuro deficits Psych: Alert, oriented, appropriate affect A total of 36 minutes of time were spent preparing this complex discharge summary. Patient was discharged on 05/27/23 at 10:29. Patient Condition at Discharge: Stable Plan - Discharge Summary New Discharge Prescriptions: New Vancomycin 2,500 mg IVPB Q24HR each Continue Rivaroxaban [Xarelto] 20 mg PO HS OLANZapine 20 mg PO HS Omeprazole 20 mg PO DAILY DULoxetine HCL [Cymbalta] 60 mg PO DAILY Tamsulosin HCl [Flomax] 0.4 mg PO DAILY Albuterol Sulfate [Ventolin HFA] 1 - 2 puff INHALATION RT-Q6H PRN PRN Reason: Shortness Of Breath Cholecalciferol [Vitamin D3 (25 Mcg = 1000 Iu)] 25 mcg PO DAILY Metoprolol Tartrate [Lopressor] 25 mg PO BID Spironolactone [Aldactone] 25 mg PO DAILY Potassium Chloride ER [K-Dur 20] 20 meq PO DAILY Budesonide [Pulmicort] 0.5 mg INHALATION RT-BID acetaZOLAMIDE [Diamox Sequels] 500 mg PO DAILY Tiotropium 2.5 Mcg/Puff [Spiriva Respimat 2.5 Mcg] 2 puff INHALATION RT-DAILY allopurinoL [Zyloprim] 100 mg PO DAILY oxyCODONE-APAP 10-325MG [Percocet 10-325 mg] 1 tab PO Q6H PRN PRN Reason: Pain Ipratropium-Albuterol Nebulize [Duoneb 0.5 mg-3 mg/3 ml Soln] 3 ml INHALATION RT-QID Docusate [Colace] 100 mg PO DAILY PRN PRN Reason: Constipation Ferrous Sulfate [Iron] 325 mg PO DAILY Lactulose [Constulose] 20 gm PO BID PRN PRN Reason: Constipation Bumetanide [BUMEX] 2 mg PO DAILY Discharge Medication List Rivaroxaban [Xarelto] 20 mg PO HS 07/14/19 [History] OLANZapine 20 mg PO HS 10/29/20 [History] Omeprazole 20 mg PO DAILY 03/27/21 [History] DULoxetine HCL [Cymbalta] 60 mg PO DAILY 09/05/21 [History] Albuterol Sulfate [Ventolin HFA] 1 - 2 puff INHALATION RT-Q6H PRN 10/28/21 [History] Tamsulosin HCl [Flomax] 0.4 mg PO DAILY 10/28/21 [History] Tiotropium 2.5 Mcg/Puff [Spiriva Respimat 2.5 Mcg] 2 puff INHALATION RT-DAILY 10/28/21 [History] Cholecalciferol [Vitamin D3 (25 Mcg = 1000 Iu)] 25 mcg PO DAILY 09/09/22 [History] Metoprolol Tartrate [Lopressor] 25 mg PO BID 09/09/22 [History] Spironolactone [Aldactone] 25 mg PO DAILY 09/09/22 [History] allopurinoL [Zyloprim] 100 mg PO DAILY 09/09/22 [History] Budesonide [Pulmicort] 0.5 mg INHALATION RT-BID 03/17/23 [History] Docusate [Colace] 100 mg PO DAILY PRN 03/17/23 [History] Ipratropium-Albuterol Nebulize [Duoneb 0.5 mg-3 mg/3 ml Soln] 3 ml INHALATION RT-QID 03/17/23 [History] Potassium Chloride ER [K-Dur 20] 20 meq PO DAILY 03/17/23 [History] oxyCODONE-APAP 10-325MG [Percocet 10-325 mg] 1 tab PO Q6H PRN 03/17/23 [History] Bumetanide [BUMEX] 2 mg PO DAILY 05/21/23 [History] Ferrous Sulfate [Iron] 325 mg PO DAILY 05/21/23 [History] Lactulose [Constulose] 20 gm PO BID PRN 05/21/23 [History] acetaZOLAMIDE [Diamox Sequels] 500 mg PO DAILY 05/21/23 [History] Vancomycin 2,500 mg IVPB Q24HR each 05/27/23 [Rx] Follow up Appointment(s)/Referral(s): Antelmo Crenshaw MD [Primary Care Provider] - 1-2 days Guy Lu MD [STAFF PHYSICIAN] - 1 Week [facility], [NON-STAFF] - 05/28/23 [facility], [REFERRING] - 05/27/23 (They will deliver between 6-8PM tonight.) Ynes Hendrickson MD [STAFF PHYSICIAN] - 1 Week Patient Instructions/Handouts: Heart Failure (DC), Pneumonia (DC) Activity/Diet/Wound Care/Special Instructions: Please see your PCP and charging plug placer. Also see your fisher clam. Discharge Disposition: HOME WITH HOME HEALTH SERVICES
[2023-05-27 16:32] VITALS: PULSE 84
[2023-05-28] MEDS ORDERED: BUMETANIDE 1 MG TAB PO SCH (09:00)
== END 2023-05-27 17:53 | disposition home health service (06) | DRG 871 ==
LOC: EC 13:51 → 3SCARD 16:22 → 2SICU 20:21 → 3SCARD 05-22 05:37
PROVIDERS: ADMIT Internal Medicine; ATTEND Internal Medicine
PROC: 5A09357 Assistance with Respiratory Ventilation, Less than 24 Consecutive Hours, Continuous Positive Airway Pressure (ICD-10-PCS; 2023-05-21)
PROC: 02HV33Z Insertion of Infusion Device into Superior Vena Cava, Percutaneous Approach (ICD-10-PCS; principal; 2023-05-26 17:25)
DX: A41.02 Sepsis due to Methicillin resistant Staphylococcus aureus (principal); G93.41 Metabolic encephalopathy; J15.212 Pneumonia due to Methicillin resistant Staphylococcus aureus; J96.21 Acute and chronic respiratory failure with hypoxia; J96.22 Acute and chronic respiratory failure with hypercapnia; I50.43 Acute on chronic combined systolic (congestive) and diastolic (congestive) heart failure; E87.29 Other acidosis; J44.0 Chronic obstructive pulmonary disease with (acute) lower respiratory infection; I13.0 Hypertensive heart and chronic kidney disease with heart failure and stage 1 through stage 4 chronic kidney disease, or unspecified chronic kidney disease; I82.501 Chronic embolism and thrombosis of unspecified deep veins of right lower extremity; E66.2 Morbid (severe) obesity with alveolar hypoventilation; Z68.44 Body mass index [BMI] 60.0-69.9, adult; L89.152 Pressure ulcer of sacral region, stage 2; I27.20 Pulmonary hypertension, unspecified; D63.1 Anemia in chronic kidney disease; F25.9 Schizoaffective disorder, unspecified; E11.22 Type 2 diabetes mellitus with diabetic chronic kidney disease; E11.42 Type 2 diabetes mellitus with diabetic polyneuropathy; N18.30 Chronic kidney disease, stage 3 unspecified; F31.9 Bipolar disorder, unspecified; I08.3 Combined rheumatic disorders of mitral, aortic and tricuspid valves; E78.5 Hyperlipidemia, unspecified; M19.90 Unspecified osteoarthritis, unspecified site; K21.9 Gastro-esophageal reflux disease without esophagitis; I45.4 Nonspecific intraventricular block; F41.0 Panic disorder [episodic paroxysmal anxiety]; S30.810A Abrasion of lower back and pelvis, initial encounter; R26.9 Unspecified abnormalities of gait and mobility; G89.4 Chronic pain syndrome; I48.0 Paroxysmal atrial fibrillation; Z96.641 Presence of right artificial hip joint; Z20.822 Contact with and (suspected) exposure to COVID-19; Z86.16 Personal history of COVID-19; Z74.01 Bed confinement status; Z86.711 Personal history of pulmonary embolism; Z87.19 Personal history of other diseases of the digestive system; Z86.73 Personal history of transient ischemic attack (TIA), and cerebral infarction without residual deficits; Z86.14 Personal history of Methicillin resistant Staphylococcus aureus infection; Z98.84 Bariatric surgery status; Z85.828 Personal history of other malignant neoplasm of skin; Z87.891 Personal history of nicotine dependence; Z80.1 Family history of malignant neoplasm of trachea, bronchus and lung; Z79.01 Long term (current) use of anticoagulants; Z79.899 Other long term (current) drug therapy; Z88.5 Allergy status to narcotic agent; Z88.8 Allergy status to other drugs, medicaments and biological substances; Z88.1 Allergy status to other antibiotic agents; Z82.49 Family history of ischemic heart disease and other diseases of the circulatory system; Z87.09 Personal history of other diseases of the respiratory system
CPT/HCPCS: 36415; 36573; 51702; 70450; 71045; 71046; 80048; 80053; 80202; 80306; 81001; 82140; 82565; 82805; 83605; 83735; 83880; 84484; 85025; 85027; 85610; 85730; 87040; 87070; 87077; 87186; 87205; 87449; 87636; 93005; 93306; 94640; 94660; 94760; 96365; 96367; 96368; 96375; 96376; 99291

== ENCOUNTER 2023-09-12 19:07 | Inpatient (IN) | payer OTHER, MEDICARE, BC ==
[2023-09-12] MEDS ORDERED: SODIUM CHLORIDE 0.9% 1,000 ML IV STA (21:26)
[2023-09-12] MEDS ORDERED: IPRATROPIUM-ALBUTEROL 3 ML NEB INHALATION STA (21:30)
--- NOTE | 2023-09-12 21:36 | ED ---
General Adult HPI - General Chief complaint: Weakness Stated complaint: Bladder infection Source: patient, EMS Mode of arrival: EMS - History of Present Illness Initial comments: 62-year-old male with past medical history significant for COPD and CHF presented to the ED with a chief complaint of dyspnea. Patient states for the past few days has had increased oxygen needs at home. Notes that he is normally on 3 L. Despite increasing oxygen usage at home still feels progressively short of breath and also notes that he needs to prop himself up on more pillows in order to sleep comfortably. Associated generalized weakness. Shortly, patient notes that he is scheduled for PICC line insertion tomorrow at 12 PM at this facility to receive IV antibiotics. Patient reports that this is due to a resis tant UTI. Denies chest pain. No abdominal pain. No other complaints. - Related Data Home Medications Medication Instructions Recorded Confirmed Rivaroxaban [Xarelto] 20 mg PO HS 07/14/19 09/10/23 OLANZapine 20 mg PO HS 10/29/20 09/10/23 Omeprazole 20 mg PO DAILY 03/27/21 09/10/23 DULoxetine HCL [Cymbalta] 60 mg PO DAILY 09/05/21 09/10/23 Albuterol Sulfate [Ventolin HFA] 1 - 2 puff INHALATION RT-Q6H PRN 10/28/21 09/10/23 Tamsulosin HCl [Flomax] 0.4 mg PO DAILY 10/28/21 09/10/23 Tiotropium 2.5 Mcg/Puff [Spiriva 2 puff INHALATION RT-DAILY 10/28/21 09/10/23 Respimat 2.5 Mcg] Cholecalciferol [Vitamin D3 (25 25 mcg PO DAILY 09/09/22 09/10/23 Mcg = 1000 Iu)] Metoprolol Tartrate [Lopressor] 25 mg PO BID 09/09/22 09/10/23 Spironolactone [Aldactone] 25 mg PO DAILY 09/09/22 09/10/23 Budesonide [Pulmicort] 0.5 mg INHALATION RT-BID 03/17/23 09/10/23 Docusate [Colace] 100 mg PO DAILY PRN 03/17/23 09/10/23 Ipratropium-Albuterol Nebulize 3 ml INHALATION RT-QID 03/17/23 09/10/23 [Duoneb 0.5 mg-3 mg/3 ml Soln] Potassium Chloride ER [K-Dur 20] 20 meq PO TID 03/17/23 09/10/23 oxyCODONE-APAP 10-325MG [Percocet 1 tab PO Q6H PRN 03/17/23 09/10/23 10-325 mg] Bumetanide [BUMEX] 2 mg PO DAILY 05/21/23 09/10/23 Ferrous Sulfate [Iron] 325 mg PO DAILY 05/21/23 09/10/23 Lactulose [Constulose] 20 gm PO BID PRN 05/21/23 09/10/23 Magnesium Oxide [Magox 400] 400 mg PO DAILY 08/27/23 09/10/23 Nystatin 100,000 Unit/ml Susp 10 ml PO QID PRN 08/27/23 09/10/23 [Mycostatin Oral Susp] Relaxium Sleep Supplement 4 capsule PO HS 08/27/23 09/10/23 Semaglutide [Ozempic] 0.25 mg SQ MO 08/27/23 09/10/23 Naloxone HCl 1 spray NASAL DIRECTED PRN 09/10/23 09/10/23 dexAMETHasone ORAL [Hexadrol] 6 mg PO DAILY 09/10/23 09/10/23 Allergies Allergy/AdvReac Type Severity Reaction Status Date / Time codeine Allergy Severe Swelling Verified 09/10/23 11:05 OF THROAT WITH COUGH SYRUP chlorpheniramine Allergy Unknown Verified 09/10/23 11:05 febuxostat [From Uloric] Allergy Unknown Verified 09/10/23 11:05 phenylephrine Allergy Unknown Verified 09/10/23 11:05 piperacillin sodium Allergy Unknown Verified 09/10/23 11:05 [From Zosyn] tazobactam sodium Allergy Unknown Verified 09/10/23 11:05 [From Zosyn] allopurinol AdvReac NAUSEA, Verified 09/10/23 11:05 RACING HEART buspirone [From BuSpar] AdvReac Rapid Verified 09/10/23 11:05 Heart Rate sulfamethoxazole AdvReac see Verified 09/10/23 11:05 [From Bactrim] comments trimethoprim [From Bactrim] AdvReac see Verified 09/10/23 11:05 comments Review of Systems ROS Statement: Those systems with pertinent positive or pertinent negative responses have been documented in the HPI. ROS Other: All systems not noted in ROS Statement are negative. Past Medical History Past Medical History: Atrial Fibrillation, Asthma, Cancer, Heart Failure, COPD, Deep Vein Thrombosis (DVT), GERD/Reflux, GI Bleed, Hyperlipidemia, Hypertension, Osteoarthritis (OA), Pneumonia, Pulmonary Embolus (PE), Renal Disease, Respiratory Disorder, Sleep Apnea/CPAP/BIPAP Additional Past Medical History / Comment(s): Pt [facility] 08/[facility]23 acute on chronic SOB, +Covid 1-05-20 and early 2022, hx chronic CHF/abnormal ECHO-see report/paroxysmal afib/bilat pleural effusions w/ R sided thoracentesis. BLE neuropathy, colitis, chronic generalized pain, fluid retention, bedbound, hiatal hernia, DDD, scoliosis, ALEXIS w/ CPAP, CKD stage III, pseudoseizures - none in 1 year, basal cell skin cancer, BLE edema History of Any Multi-Drug Resistant Organisms: MRSA Date of last positivie culture/infection: 05/22/23 MDRO Source:: Sputum Past Surgical History: Appendectomy, Bariatric Surgery, Cholecystectomy, Heart Catheterization, Hernia Repair, Joint Replacement, Orthopedic Surgery Additional Past Surgical History / Comment(s): Gastric sleeve 2014, L inguinal hernia repair, R elbow surgery x2, total R hip arthroplasty, L knee arthroscopy/ACL surgery, R ankle ORIF, EGD, colonoscopy, basal cell skin cancer exc face, surgery for varicele,lt knee arthroscopy x2. Past Anesthesia/Blood Transfusion Reactions: Previous Problems w/ Anesthesia Additional Past Anesthesia/Blood Transfusion Reaction / Comment(s): STATES WAS TOLD HE WAS A DIFFICULT INTUBATION WITH GASTRIC SLEEVE SURGERY, no problems with gallbladder surgery after gastric sleeve surgery in Aug 2021 Past Psychological History: Anxiety, Bipolar, Depression, Panic Disorder, Schizoaffective Disorder Smoking Status: Former smoker - Past Family History Father Family Medical History: Cancer Additional Family Medical History / Comment(s): LUNG CA Mother Family Medical History: Coronary Artery Disease (CAD) Additional Family Medical History / Comment(s): Mother of an infection. General Exam Limitations: no limitations, physical limitation (Bedbound.) General appearance: alert, in no apparent distress Neck exam: Present: normal inspection Respiratory exam: Present: other (Poor inspiratory effort.) Cardiovascular Exam: Present: regular rate GI/Abdominal exam: Present: soft Neurological exam: Present: alert, oriented X3 (Patient becomes easily fatigued when talking to you however easily arousable.) Skin exam: Present: warm, dry Course Vital Signs 09/12/23 09/12/23 09/12/23 19:25 22:47 22:55 Temperature 98.9 F Pulse Rate 78 76 80 Respiratory 16 Rate Blood Pressure 137/73 O2 Sat by Pulse 98 Oximetry Medical Decision Making - Medical Decision Making Was pt. sent in by a medical professional or institution (, [facility], PROFESSIONAL HOUSING CONSULTANT, urgent care, hospital, or fpc...) When possible be specific @ -No Did you speak to anyone other than the patient for history (EMS, parent, family, police, friend...)? What history was obtained from this source @ -No Did you review nursing and triage notes (agree or disagree)? Why? @ -I reviewed and agree with nursing and triage notes Were old charts reviewed (outside hosp., previous admission, EMS record, old EKG, old radiological studies, urgent care reports/EKG's, fpc records)? Report findings @ -No old charts were reviewed Differential Diagnosis (chest pain, altered mental status, abdominal pain women, abdominal pain men, vaginal bleeding, weakness, fever, dyspnea, syncope, headache, dizziness, GI bleed, back pain, seizure, CVA, palpatations, mental health, musculoskeletal)? @ -Prior notes reviewed showing history of chronic respiratory failure with history of COPD and CHF. Recent EF of 50-55%. EKG interpreted by me (3pts min.). @ -As above X-rays interpreted by me (1pt min.). @ -X-ray interpreted by me showing evidence of pulmonary vascular congestion CT interpreted by me (1pt min.). @ -None done U/S interpreted by me (1pt. min.). @ -None done What testing was considered but not performed or refused? (CT, X-rays, U/S, labs)? Why? @ -None What meds were considered but not given or refused? Why? @ -None Did you discuss the management of the patient with other professionals (professionals i.e. , [facility], PROFESSIONAL HOUSING CONSULTANT, lab, RT, psych nurse, elementary school social worker, jewel hole rough opener, teacher, executive officer special warfare team, sample case porter)? Give summary @ -Spoke to Dr. Bashir, who accepted admission. Was smoking cessation discussed for >3mins.? @ -No Was critical care preformed (if so, how long)? @ -No Were there social determinants of health that impacted care today? How? (Homelessness, low income, unemployed, alcoholism, drug addiction, transportation, low edu. Level, literacy, decrease access to med. care, custodial, rehab)? @ -No Was there de-escalation of care discussed even if they declined (Discuss DNR or withdrawal of care, Hospice)? DNR status @ -No What co-morbidities impacted this encounter? (DM, HTN, Smoking, COPD, CAD, Cancer, CVA, ARF, Chemo, Hep., AIDS, mental health diagnosis, sleep apnea, morbid obesity)? @ -COPD, CHF Was patient admitted / discharged? Hospital course, mention meds given and route, prescriptions, significant lab abnormalities, going to OR and other pertinent info. @ -Admission 62-year-old male presents to the ED with complaints of dyspnea and generalized weakness.Laboratory studies significant for venous blood gas showing pH 7.44, pCO2 66, VBG 45,. History panel showing kidney injury with BUN 43, creatinine 0.47. Troponin negative. BNP elevated at 479. His x-ray did show some pulmonary vascular congestion. Patient will be admitted due to CHF/COPD exacerbation. Patient will have consult to cardiology and pulmonology. Additionally, patient noted history of resistant UTI requiring PICC line insertion tomorrow. Consult will be placed to Dr. Ferris and to Dr. Whitt. Discussed plan of care with patient who is in agreement. Undiagnosed new problem with uncertain prognosis? @ -No Drug Therapy requiring intensive monitoring for toxicity (Heparin, Nitro, Insulin, Cardizem)? @ -No Were any procedures done? @ -No Diagnosis/symptom? @ -Dyspnea Acute, or Chronic, or Acute on Chronic? @ -Acute On chronic Uncomplicated (without systemic symptoms) or Complicated (systemic symptoms)? @ -Complicated Side effects of treatment? @ -No Exacerbation, Progression, or Severe Exacerbation? @ -No Poses a threat to life or bodily function? How? (Chest pain, USA, VT, pneumonia, PE, COPD, DKA, ARF, appy, cholecystitis, CVA, Diverticulitis, Homicidal, Suicidal, threat to staff... and all critical care pts) @ -No - Lab Data Result diagrams: 09/12/23 21:53 09/12/23 21:53 Lab Results 09/12/23 09/12/23 09/12/23 Range/Units 21:53 21:53 21:53 WBC 10.5 (3.8-10.6) k/uL RBC 4.44 (4.30-5.90) m/uL Hgb 13.0 (13.0-17.5) gm/dL Hct 39.5 (39.0-53.0) % MCV 89.0 (80.0-100.0) fL MCH 29.3 (25.0-35.0) pg MCHC 32.9 (31.0-37.0) g/dL RDW 16.0 H (11.5-15.5) % Plt Count 180 (150-450) k/uL MPV 7.3 Neutrophils % (Manual) 83 % Band Neuts % (Manual) 6 % Lymphocytes % (Manual) 4 % Monocytes % (Manual) 5 % Metamyelocytes % 2 % Neutrophils # (Manual) 9.30 H (1.3-7.7) k/uL Lymphocytes # (Manual) 0.42 L (1.0-4.8) k/uL Monocytes # (Manual) 0.53 (0-1.0) k/uL Metamyelocytes # (Man) 0.21 H (0) k/uL Nucleated RBCs 0 (0-0) /100 WBC Manual Slide Review Performed Anisocytosis Slight PT 11.6 (10.0-12.5) sec INR 1.1 (<1.2) APTT 27.2 (22.0-30.0) sec VBG pH (7.31-7.41) VBG pCO2 (37-51) mmHg VBG HCO3 (24-28) mmol/L Sodium 132 L (137-145) mmol/L Potassium 4.1 (3.5-5.1) mmol/L Chloride 87 L (98-107) mmol/L Carbon Dioxide 40 H (22-30) mmol/L Anion Gap 5 mmol/L BUN 43 H (9-20) mg/dL Creatinine 0.47 L (0.66-1.25) mg/dL Est GFR (CKD-EPI)AfAm >90 (>60 ml/min/1.73 sqM) Est GFR (CKD-EPI)NonAf >90 (>60 ml/min/1.73 sqM) Glucose 116 H (74-99) mg/dL Plasma Lactic Acid Benjie (0.7-2.0) mmol/L Calcium 8.6 (8.4-10.2) mg/dL Total Bilirubin 0.6 (0.2-1.3) mg/dL AST 29 (17-59) U/L ALT 175 H (4-49) U/L Alkaline Phosphatase 213 H (38-126) U/L Troponin I (0.000-0.034) ng/mL NT-Pro-B Natriuret Pep 579 pg/mL Total Protein 5.6 L (6.3-8.2) g/dL Albumin 3.1 L (3.5-5.0) g/dL 09/12/23 09/12/23 09/12/23 Range/Units 21:53 21:53 21:53 WBC (3.8-10.6) k/uL RBC (4.30-5.90) m/uL Hgb (13.0-17.5) gm/dL Hct (39.0-53.0) % MCV (80.0-100.0) fL MCH (25.0-35.0) pg MCHC (31.0-37.0) g/dL RDW (11.5-15.5) % Plt Count (150-450) k/uL MPV Neutrophils % (Manual) % Band Neuts % (Manual) % Lymphocytes % (Manual) % Monocytes % (Manual) % Metamyelocytes % % Neutrophils # (Manual) (1.3-7.7) k/uL Lymphocytes # (Manual) (1.0-4.8) k/uL Monocytes # (Manual) (0-1.0) k/uL Metamyelocytes # (Man) (0) k/uL Nucleated RBCs (0-0) /100 WBC Manual Slide Review Anisocytosis PT (10.0-12.5) sec INR (<1.2) APTT (22.0-30.0) sec VBG pH 7.44 H (7.31-7.41) VBG pCO2 66 H (37-51) mmHg VBG HCO3 45 H (24-28) mmol/L Sodium (137-145) mmol/L Potassium (3.5-5.1) mmol/L Chloride (98-107) mmol/L Carbon Dioxide (22-30) mmol/L Anion Gap mmol/L BUN (9-20) mg/dL Creatinine (0.66-1.25) mg/dL Est GFR (CKD-EPI)AfAm (>60 ml/min/1.73 sqM) Est GFR (CKD-EPI)NonAf (>60 ml/min/1.73 sqM) Glucose (74-99) mg/dL Plasma Lactic Acid Benjie 0.9 (0.7-2.0) mmol/L Calcium (8.4-10.2) mg/dL Total Bilirubin (0.2-1.3) mg/dL AST (17-59) U/L ALT (4-49) U/L Alkaline Phosphatase (38-126) U/L Troponin I <0.012 (0.000-0.034) ng/mL NT-Pro-B Natriuret Pep pg/mL Total Protein (6.3-8.2) g/dL Albumin (3.5-5.0) g/dL - EKG Data EKG Comments: EKG shows a sinus rhythm at 78 beats per minutes with nonspecific ST and T-wave changes appears similar to prior. QRS 123, QT/QTC 383/416. Disposition Clinical Impression: COPD (chronic obstructive pulmonary disease), CHF (congestive heart failure), JESSICA (acute kidney injury) Disposition: ADMITTED IP TO THIS HOSP Referrals: Antelmo Crenshaw MD [Primary Care Provider] - 1-2 days Time of Disposition: 23:58
[2023-09-12 22:05] LABS: VBG PH 7.44 (7.31-7.41)
[2023-09-12 22:08] LABS: Anisocytosis Slight; HCT 39.5 % (39.0-53.0); MCH 29.3 pg (25.0-35.0); MCHC 32.9 g/dL (31.0-37.0); Mean Platelet Volume 7.3; Platelet Count 180 k/uL (150-450); RBC 4.44 m/uL (4.30-5.90); WBC 10.5 k/uL (3.8-10.6)
[2023-09-12 22:13] LABS: INR 1.1 (<1.2); Partial Thromboplastin Time 27.2 sec (22.0-30.0); Prothrombin Time 11.6 sec (10.0-12.5)
[2023-09-12 22:17] LABS: ALT 175 U/L (4-49); AST 29 U/L (17-59); African American GFR (CKD) >90 (>60 ml/min/1.73 sqM); Albumin 3.1 g/dL (3.5-5.0); Alkaline Phosphatase 213 U/L (38-126); Anion Gap 5 mmol/L; Blood Urea Nitrogen 43 mg/dL (9-20); Calcium 8.6 mg/dL (8.4-10.2); Carbon Dioxide 40 mmol/L (22-30); Chloride 87 mmol/L (98-107); Glucose 116 mg/dL (74-99); Non-African American GFR(CKD) >90 (>60 ml/min/1.73 sqM); Potassium 4.1 mmol/L (3.5-5.1); Sodium 132 mmol/L (137-145); Total Bilirubin 0.6 mg/dL (0.2-1.3); Total Protein 5.6 g/dL (6.3-8.2)
[2023-09-12 22:26] LABS: NT-Pro-B-Type Natriuretic Pept 579 pg/mL
[2023-09-12 22:36] LABS: Band Neutrophils % 6 %; Lymphocytes # (M) 0.42 k/uL (1.0-4.8); Metamyelocytes # (M) 0.21 k/uL (0); Metamyelocytes % 2 %; Monocytes # (M) 0.53 k/uL (0-1.0); Neutrophils % (M) 83 %; Nucleated Red Blood Cells 0 /100 WBC (0-0); Total Cells Counted 200
--- NOTE | 2023-09-12 23:44 | XR ---
EXAM: XR Chest, 2 Views CLINICAL HISTORY: ITS.REASON XR Reason: dyspnea TECHNIQUE: Frontal and lateral views of the chest. COMPARISON: No relevant prior studies available. FINDINGS: Lungs: Unremarkable. No consolidation. Pleural space: Moderate RIGHT pleural effusion. No pneumothorax. Heart: Cardiomegaly. Mediastinum: Unremarkable. Bones/joints: Unremarkable. IMPRESSION: Moderate RIGHT pleural effusion.
[2023-09-13] MEDS ORDERED: FUROSEMIDE 10 MG/ML 4 ML VIAL IV SCH (00:15)
[2023-09-13] MEDS ORDERED: oxyCODONE-APAP 10-325MG 1 EACH TAB PO PRN (00:16)
[2023-09-13] MEDS ORDERED: METOPROLOL TARTRATE 25 MG TAB PO STA (00:21)
[2023-09-13] MEDS: OLANZapine 10 MG TAB PO SCH ×3 (00:31→21:50)
[2023-09-13 01:21] LABS: Appearance,Urine Clear (Clear); Bacteria,Urine Rare /hpf; Bilirubin,Urine Negative (Negative); Blood,Urine Negative (Negative); Color,Urine Colorless; Glucose,Urine (UA) Negative (Negative); Ketones,Urine Negative (Negative); Leukocyte Esterase,Urine Large (Negative); Nitrite,Urine Negative (Negative); PH, Urine 6.5 (5.0-8.0); Protein,Urine Trace (Negative); RBC,Urine 4 /hpf (0-5); Urobilinogen,Urine <2.0 mg/dL (<2.0); WBC,Urine 55 /hpf (0-5)
--- NOTE | 2023-09-13 05:30 | P.CNPUL ---
History of Present Illness Consult date: 09/13/23 Requesting physician: Jovan Amato Reason for consult: dyspnea Chief complaint: Shortness of breath History of present illness: I am seeing this patient in new consultation today 09/13/2023 in the emergency room after he presented late last night for the chief complaint of shortness of breath. Patient is a 62-year-old white male with past medical history significant for chronic hypoxic and hypercapnic respiratory failure, chronic right-sided pleural effusion with prior thoracentesis 4, chronic DVT of the right leg anticoagulated on Xarelto, chronic atrial fibrillation, history of CVA/TIA, diabetes mellitus, GERD, GI bleed, hypertension, hyperlipidemia, obesity, obstructive sleep apnea maintained on Trilogy ventilator at home, among other comorbidities. Patient states that starting yesterday at 7 PM he started experiencing increasing shortness of breath accompanied with heart palpitations and substernal chest pressure. Denies any significant cough, fevers, myalgias, hemoptysis. He does report some increased lower extremity edema and orthopnea. Denies syncopal events. Unrelated, the patient is scheduled for a midline tomorrow. Patient states that his primary care provider, Mark Chanel NP, had noted him to have a positive UTI. Patient does suffer for chronic UTIs and re sistant organisms. Patient is currently sitting up in bed, on 3 L/m nasal cannula, in no acute distress. His home ventilator is at bedside. CBC on arrival was unremarkable. No leukocytosis. VBG shows compensated hypercapnia with a pCO2 of 66 and a pH of 7.44. CMP on arrival showed a sodium 132, potassium 4.1, chloride 87, serum bicarb 40, B1 43, creatinine 0.47, glucose 116. Lactic acid level was 0.9. ECG shows normal sinus rhythm with frequent unifocal PVCs. No acute ischemic changes. Troponins negative 3. NT proBNP was not significantly elevated for age at 579. Urinalysis was positive for leukocytes and rare bacteria. Patient is afebrile. He is being admitted to the general medical floor. Review of Systems REVIEW OF SYSTEMS: CONSTITUTIONAL: Denies any recent significant weight loss or weight gain. EYES: Denies change in vision. EARS, NOSE, MOUTH, THROAT: Denies headaches, denies sore throat. CARDIOVASCULAR: See HPI RESPIRATORY: Denies cough, congestion or hemoptysis. Admits shortness of breath especially on exertion GASTROINTESTINAL: Denies change in appetite, abdominal pain, nausea and vomiting, or diarrhea GENITOURINARY: Denies hematuria. Reports previous dysuria. MUSKULOSKELETAL: Denies pain, denies swelling. INTEGUMENTARY: Denies rash, denies eczema. NEUROLOGICAL: Denies recent memory loss, no recent seizure activity. PSYCHIATRIC: Denies anxiety, denies depression. HEMATOLOGIC/LYMPHATIC: Denies anemia, denies enlarged lymph node Past Medical History Past Medical History: Atrial Fibrillation, Asthma, Cancer, Heart Failure, COPD, Deep Vein Thrombosis (DVT), GERD/Reflux, GI Bleed, Hyperlipidemia, Hypertension, Osteoarthritis (OA), Pneumonia, Pulmonary Embolus (PE), Renal Disease, Respiratory Disorder, Sleep Apnea/CPAP/BIPAP Additional Past Medical History / Comment(s): Pt hospitalized [facility] on 08/27/23 acute on chronic SOB, +Covid 12-04-21 and early 2022, hx chronic CHF/abnormal ECHO-see report/paroxysmal afib/bilat pleural effusions w/ R sided thoracentesis. BLE neuropathy, colitis, chronic generalized pain, fluid retention, bedbound, hiatal hernia, DDD, scoliosis, ALEXIS w/ CPAP, CKD stage III, pseudoseizures - none in 1 year, basal cell skin cancer, BLE edema History of Any Multi-Drug Resistant Organisms: MRSA Date of last positivie culture/infection: 05/22/23 MDRO Source:: Sputum Past Surgical History: Appendectomy, Bariatric Surgery, Cholecystectomy, Heart Catheterization, Hernia Repair, Joint Replacement, Orthopedic Surgery Additional Past Surgical History / Comment(s): Gastric sleeve 2013, L inguinal hernia repair, R elbow surgery x2, total R hip arthroplasty, L knee arthroscopy/ACL surgery, R ankle ORIF, EGD, colonoscopy, basal cell skin cancer exc face, surgery for varicele,lt knee arthroscopy x2. Past Anesthesia/Blood Transfusion Reactions: Previous Problems w/ Anesthesia Additional Past Anesthesia/Blood Transfusion Reaction / Comment(s): STATES WAS TOLD HE WAS A DIFFICULT INTUBATION WITH GASTRIC SLEEVE SURGERY, no problems with gallbladder surgery after gastric sleeve surgery in Aug 2021 Past Psychological History: Anxiety, Bipolar, Depression, Panic Disorder, Schizoaffective Disorder Smoking Status: Former smoker - Past Family History Father Family Medical History: Cancer Additional Family Medical History / Comment(s): LUNG CA Mother Family Medical History: Coronary Artery Disease (CAD) Additional Family Medical History / Comment(s): Mother of an infection. Medications and Allergies Home Medications Medication Instructions Recorded Confirmed Type Rivaroxaban [Xarelto] 20 mg PO HS 07/14/19 09/10/23 History OLANZapine 20 mg PO HS 10/29/20 09/10/23 History Omeprazole 20 mg PO DAILY 03/27/21 09/10/23 History DULoxetine HCL [Cymbalta] 60 mg PO DAILY 09/05/21 09/10/23 History Albuterol Sulfate [Ventolin HFA] 1 - 2 puff INHALATION RT-Q6H PRN 10/28/21 09/10/23 History Tamsulosin HCl [Flomax] 0.4 mg PO DAILY 10/28/21 09/10/23 History Tiotropium 2.5 Mcg/Puff [Spiriva 2 puff INHALATION RT-DAILY 10/28/21 09/10/23 History Respimat 2.5 Mcg] Cholecalciferol [Vitamin D3 (25 25 mcg PO DAILY 09/09/22 09/10/23 History Mcg = 1000 Iu)] Metoprolol Tartrate [Lopressor] 25 mg PO BID 09/09/22 09/10/23 History Spironolactone [Aldactone] 25 mg PO DAILY 09/09/22 09/10/23 History Budesonide [Pulmicort] 0.5 mg INHALATION RT-BID 03/17/23 09/10/23 History Docusate [Colace] 100 mg PO DAILY PRN 03/17/23 09/10/23 History Ipratropium-Albuterol Nebulize 3 ml INHALATION RT-QID 03/17/23 09/10/23 History [Duoneb 0.5 mg-3 mg/3 ml Soln] Potassium Chloride ER [K-Dur 20] 20 meq PO TID 03/17/23 09/10/23 History oxyCODONE-APAP 10-325MG [Percocet 1 tab PO Q6H PRN 03/17/23 09/10/23 History 10-325 mg] Bumetanide [BUMEX] 2 mg PO DAILY 05/21/23 09/10/23 History Ferrous Sulfate [Iron] 325 mg PO DAILY 05/21/23 09/10/23 History Lactulose [Constulose] 20 gm PO BID PRN 05/21/23 09/10/23 History Magnesium Oxide [Magox 400] 400 mg PO DAILY 08/27/23 09/10/23 History Nystatin 100,000 Unit/ml Susp 10 ml PO QID PRN 08/27/23 09/10/23 History [Mycostatin Oral Susp] Relaxium Sleep Supplement 4 capsule PO HS 08/27/23 09/10/23 History Semaglutide [Ozempic] 0.25 mg SQ MO 08/27/23 09/10/23 History Naloxone HCl 1 spray NASAL DIRECTED PRN 09/10/23 09/10/23 History dexAMETHasone ORAL [Hexadrol] 6 mg PO DAILY 09/10/23 09/10/23 History Allergies Allergy/AdvReac Type Severity Reaction Status Date / Time codeine Allergy Severe Swelling Verified 09/10/23 11:05 OF THROAT WITH COUGH SYRUP chlorpheniramine Allergy Unknown Verified 09/10/23 11:05 febuxostat [From Uloric] Allergy Unknown Verified 09/10/23 11:05 phenylephrine Allergy Unknown Verified 09/10/23 11:05 piperacillin sodium Allergy Unknown Verified 09/10/23 11:05 [From Zosyn] tazobactam sodium Allergy Unknown Verified 09/10/23 11:05 [From Zosyn] allopurinol AdvReac NAUSEA, Verified 09/10/23 11:05 RACING HEART buspirone [From BuSpar] AdvReac Rapid Verified 09/10/23 11:05 Heart Rate sulfamethoxazole AdvReac see Verified 09/10/23 11:05 [From Bactrim] comments trimethoprim [From Bactrim] AdvReac see Verified 09/10/23 11:05 comments Physical Exam Vitals: Vital Signs Temp Pulse Resp BP Pulse Ox 09/13/23 00:35 98.8 F 09/13/23 00:33 76 19 116/53 98 09/12/23 22:55 80 09/12/23 22:47 76 09/12/23 19:25 98.9 F 78 16 137/73 98 Intake and Output 09/12/23 09/12/23 09/13/23 14:59 22:59 06:59 Other: Weight 199.581 kg GENERAL EXAM: Alert, morbidly obese 62-year-old white male, comfortable in no apparent distress. HEAD: Normocephalic and atraumatic EYES: Normal reaction of pupils, equal size. NOSE: Clear with pink turbinates. THROAT: No erythema or exudates. NECK: No masses, no JVD. CHEST: No chest wall deformity. LUNGS: Equal air entry with no crackles, wheeze, rhonchi. Diminished right basilar lung sounds. On 3 L/m nasal cannula. No conversational dyspnea or accessory muscle use.. CVS: S1 and S2 normal with no audible murmur, regular rhythm. No extra heart sounds ABDOMEN: No hepatosplenomegaly, active bowel sounds, no guarding or rigidity. SPINE: No scoliosis or deformity SKIN: No rashes CENTRAL NERVOUS SYSTEM: No focal deficits, tone is normal in all 4 extremities. EXTREMITIES: There is severe 4+ bilateral lower extremity pitting edema. No clubbing, or cyanosis. Peripheral pulses are intact. Results - Laboratory Findings CBC and BMP: 09/12/23 21:53 09/12/23 21:53 PT/INR, D-dimer PT 11.6 sec (10.0-12.5) 09/12/23 21:53 INR 1.1 (<1.2) 09/12/23 21:53 Abnormal lab findings: Abnormal Labs 09/12/23 09/12/23 09/12/23 21:53 21:53 21:53 RDW 16.0 H Neutrophils # (Manual) 9.30 H Lymphocytes # (Manual) 0.42 L Metamyelocytes # (Man) 0.21 H VBG pH 7.44 H VBG pCO2 66 H VBG HCO3 45 H Sodium 132 L Chloride 87 L Carbon Dioxide 40 H BUN 43 H Creatinine 0.47 L Glucose 116 H ALT 175 H Alkaline Phosphatase 213 H Total Protein 5.6 L Albumin 3.1 L Urine Protein Ur Leukocyte Esterase Urine WBC Urine Bacteria 09/13/23 01:05 RDW Neutrophils # (Manual) Lymphocytes # (Manual) Metamyelocytes # (Man) VBG pH VBG pCO2 VBG HCO3 Sodium Chloride Carbon Dioxide BUN Creatinine Glucose ALT Alkaline Phosphatase Total Protein Albumin Urine Protein Trace H Ur Leukocyte Esterase Large H Urine WBC 55 H Urine Bacteria Rare H - Diagnostic Findings Chest x-ray: image reviewed Assessment and Plan Assessment: Acute on chronic hypoxemic and hypercapnic respiratory failure secondary to suspected exacerbation of diastolic congestive heart failure. Chest x-ray on arrival shows some mild cardiomegaly with a chronic right sided pleural effusion. No focal infiltrates or evidence of pneumonia. NT pro-bnp 579. Recurrent and chronic right pleural effusion, with previous thoracentesis 4 Atypical chest pain, ACS ruled out Moderate pulmonary hypertension Obesity hypoventilation syndrome, maintained on home trilogy ventilator HS Chronic obstructive pulmonary disease, stable History of PE/DVT, anticoagulated on Xarelto History of paroxysmal atrial fibrillation, currently in normal sinus rhythm Morbid obesity with a BMI of 52.2 kg/m History of TIA/CVA Diabetes mellitus type 2 Bilateral peripheral neuropathy History of frequent UTIs Benign essential hypertension Hyperlipidemia Gastroesophageal reflux disease, without esophagitis Ex-smoker History of bipolar and schizoaffective disorder Plan: Patient's medications, labs, chest x-ray reviewed Continue supplemental oxygen Right-sided pleural effusion appears stable. No need for thoracentesis. Agree with diuresis in the form of Lasix 40 mg twice a day Continue budesonide and Atrovent inhalations Check procalcitonin level We will continue to follow, and further recommendations are forthcoming I have personally seen and examined the patient, performed the documentation and the assessment and plan as written. Number of minutes spent on the visit:20 Time with Patient: Greater than 30
[2023-09-13] MEDS: IPRATROPIUM 0.5 MG/2.5 ML NEBU INHALATION SCH ×5 (05:36→19:52)
[2023-09-13] MEDS ORDERED: BUDESONIDE 0.5 MG/2 ML NEBU INHALATION SCH (08:00)
[2023-09-13] MEDS ORDERED: DOCUSATE 100 MG CAP PO PRN ×2 (08:18→11:56)
[2023-09-13] MEDS ORDERED: METOPROLOL TARTRATE 25 MG TAB PO SCH (09:00)
[2023-09-13] MEDS ORDERED: MAGNESIUM OXIDE 400 MG TAB PO SCH ×2 (09:00→12:30)
[2023-09-13] MEDS ORDERED: TAMSULOSIN 0.4 MG CAP.ER.24H PO SCH (09:00)
[2023-09-13] MEDS ORDERED: FERROUS SULFATE 325 MG TAB PO SCH (09:00)
[2023-09-13] MEDS ORDERED: PANTOPRAZOLE 40 MG TABLET PO SCH ×2 (09:00→12:30)
[2023-09-13] MEDS ORDERED: SPIRONOLACTONE 25 MG TAB PO SCH (09:00)
[2023-09-13] MEDS ORDERED: BUMETANIDE 1 MG TAB PO SCH (09:00)
[2023-09-13] MEDS ORDERED: CHOLECALCIFEROL 25 MCG (1000 IU) TABLET PO SCH (09:00)
[2023-09-13] MEDS ORDERED: DULoxetine HCL 60 MG CAPSULE.DR PO SCH (09:00)
[2023-09-13] MEDS ORDERED: POTASSIUM CHLORIDE ER 20 MEQ TAB.ER PO SCH (09:00)
[2023-09-13] MEDS ORDERED: dexAMETHasone 2 MG TAB PO SCH (10:30)
[2023-09-13] MEDS: BUMETANIDE 1 MG TAB PO SCH ×2 (11:04→22:49)
[2023-09-13] MEDS: SPIRONOLACTONE 25 MG TAB PO SCH (12:37)
[2023-09-13] MEDS: METOPROLOL TARTRATE 25 MG TAB PO SCH ×2 (12:37→21:51)
[2023-09-13] MEDS: DULoxetine HCL 60 MG CAPSULE.DR PO SCH (12:37)
[2023-09-13] MEDS: CHOLECALCIFEROL 25 MCG (1000 IU) TABLET PO SCH (12:37)
[2023-09-13] MEDS: TAMSULOSIN 0.4 MG CAP.ER.24H PO SCH (12:37)
[2023-09-13] MEDS ORDERED: NYSTATIN 100,000 UNIT/ML SUSP 500,000 UNIT/5 ML CUP PO PRN (12:43)
[2023-09-13] MEDS ORDERED: NON FORMULARY DRUG (Semaglutide [Ozempic] 0.25 MG/0.368 ML Pen.Injctr) SQ SCH (12:45)
[2023-09-13] MEDS: dexAMETHasone 2 MG TAB PO SCH (12:56)
[2023-09-13] MEDS: FUROSEMIDE 10 MG/ML 4 ML VIAL IV SCH ×2 (12:56→22:49)
[2023-09-13] MEDS: POTASSIUM CHLORIDE ER 20 MEQ TAB.ER PO SCH ×2 (15:54→21:50)
--- NOTE | 2023-09-13 18:22 | P.HPIM ---
History of Present Illness H&P Date: 09/13/23 Chief Complaint: Short of breath This is a 62-year-old patient who follows with visiting physicians Dr. Crenshaw. Extensive medical history. Patient been not able to walk since 2018 has gradually become very weak. Baseline some short of breath for 2 years. chronic pain in multiple joints. Normally has a bowel movement every day. Has control of his bladder. Has chronic lower extremity edema. Home oxygen 2 L. Lives with his son and daughter. August 29: Breathing much better. Phil wrap lower extremity. Patient very keen to go home. Cleared by pulmonary. Discharged on fluid restriction. Phil wrap. Decadron 4 mg day. Can be tapered of outpatient. Questions answered. Patient presented increasing shortness of breath and some palpitation. For about a week. No cough. Some wheezing. No fever no chills. Appetite is fair. 3 bowel movement. Normally does use a urinal. No chest pain. Review of systems: GEN.: Tired EYES: None HEENT: None NECK: None RESPIRATORY: As above CARDIOVASCULAR: As above GASTROINTESTINAL: None GENITOURINARY: None MUSCULOSKELETAL: Multiple joint pains LYMPHATICS: None HEMATOLOGICAL: None PSYCHIATRY: None NEUROLOGICAL: Bedbound Past medical history to include: Atrial fibrillation, CHF, COPD, DVT, GERD, GI bleed, hypertension, h yperlipidemia, osteomyelitis, pulmonary embolism, obstructive sleep apnea, Coumadin 2021 when only 2022, CHF, right-sided thoracentesis, peripheral neuropathy, colitis, generalized chronic pain, obstructive sleep apnea with CPAP, CAD stage III, pseudoseizures, home oxygen bariatric surgery, gastric sleeve 2013, bipolar, schizoaffective disorder Social history: Patient visit his son and daughter. He has been bedbound for past 4 years. Requires assistance to move. Unable to sit up on his own. Patient smoked for 23 years stopped in 1998. Formerly did abuse alcohol. Stopped in 1997 Physical examination: VITAL SIGNS: 98.9, 78, 16, 137/73, 98% 3 L on presentation GENERAL: BMI 52.2, reclining in bed awake tired. EYES: Pupils equal. Conjunctiva normal. HEENT: External appearance of nose and ears normal, oral cavity grossly normal. NECK: JVD unable to assess; masses not palpable. HEART: First and second heart sounds are normal; edema present. LUNGS: Respiratory rate increased; decreased breath sound. ABDOMEN: Soft, nontender, liver spleen not palpable, no masses palpable. PSYCH: [Alert and oriented x3; mood and affect anxious. MUSCULOSKELETAL:No Clubbing/cyanosis;muscles-grossly intact. OA NEUROLOGICAL: Cranial nerves grossly intact; no facial asymmetry, power and s ensation grossly intact. LYMPHATICS: No lymph nodes palpable in the axilla and neck INVESTIGATIONS, reviewed in the clinical context: 09/12/2023: White count 10.5 hemoglobin 13 platelets 180 sodium 132 potassium 4.1 BUN 43 creatinine 0.47 AST 29 ALT 175 Troponin I less than 0.0123 ProBNP 579 UA: Leukoesterase large. WBC 55. EKG tracing personally reviewed by me-no sinus rhythm. PVCs. Chest x-ray film personally reviewed by me-moderate right pleural effusion. Previous investigations: 2-D echocardiogram [April 2023] - moderately increased left ventricle thickness. EF 50-55%. Moderate pulmonary hypertension. Adov-ru-aymuaxhm aortic regurgitation. Moderate mitral regurgitation. Assessment and plan: -Acute on chronic progressive shortness of breath. Multifactorial. COPD , Obesity hypoventilation syndrome. Right pleural effusion -Right pleural effusion Ultrasound right chest to determine if enough to be deaf. -Acute COPD exacerbation in a prior smoker Atrovent 4 times a day. Decadron 6 mg. . Nebulized Pulmicort -Suspect acute on chronic cor pulmonale exacerbation with edema IV Lasix -BPH Flomax 0.4 mg daily -Chronic hypoxic respiratory failure, multifactorial 2 L of oxygen at home -Moderate secondary pulmonary hypertension, multifactorial -Mild to moderate mitral and aortic regurgitation -Essential hypertension Lopressor 25 mg twice a day -Chronic DVT Xarelto -Bipolar disorder Olanzapine. Cymbalta. -Chronic medical debility patient is chronically bedbound. -Chronic bilateral lower extremity venous insufficiency Phil wrap's -GERD Omeprazole -Obesity hypoventilation syndrome suspected. -Obstructive sleep apnea uses CPAP -Morbid obesity BMI 51 Weight loss measures, outpatient -Diabetes mellitus type 2 ozempic IV Lasix. Bronchodilators. Steroids. Discussed with patient. Phil wrap's. Past Medical History Past Medical History: Atrial Fibrillation, Asthma, Cancer, Heart Failure, COPD, Deep Vein Thrombosis (DVT), GERD/Reflux, GI Bleed, Hyperlipidemia, Hypertension, Osteoarthritis (OA), Pneumonia, Pulmonary Embolus (PE), Renal Disease, Respiratory Disorder, Sleep Apnea/CPAP/BIPAP Additional Past Medical History / Comment(s): Pt hospitalized [facility] on 08/27/23 acute on chronic SOB, +Covid 1-05-20 and early 2022, hx chronic CHF/abnormal ECHO-see report/paroxysmal afib/bilat pleural effusions w/ R sided thoracentesis. BLE neuropathy, colitis, chronic generalized pain, fluid retention, bedbound, hiatal hernia, DDD, scoliosis, ALEXIS w/ CPAP, CKD stage III, pseudoseizures - none in 1 year, basal cell skin cancer, BLE edema History of Any Multi-Drug Resistant Organisms: MRSA Date of last positivie culture/infection: 05/22/23 MDRO Source:: Sputum Past Surgical History: Appendectomy, Bariatric Surgery, Cholecystectomy, Heart Catheterization, Hernia Repair, Joint Replacement, Orthopedic Surgery Additional Past Surgical History / Comment(s): Gastric sleeve 2013, L inguinal hernia repair, R elbow surgery x2, total R hip arthroplasty, L knee ar throscopy/ACL surgery, R ankle ORIF, EGD, colonoscopy, basal cell skin cancer exc face, surgery for varicele,lt knee arthroscopy x2. Past Anesthesia/Blood Transfusion Reactions: Previous Problems w/ Anesthesia Additional Past Anesthesia/Blood Transfusion Reaction / Comment(s): STATES WAS TOLD HE WAS A DIFFICULT INTUBATION WITH GASTRIC SLEEVE SURGERY, no problems with gallbladder surgery after gastric sleeve surgery in Aug 2021 Past Psychological History: Anxiety, Bipolar, Depression, Panic Disorder, Schizoaffective Disorder Smoking Status: Former smoker - Past Family History Father Family Medical History: Cancer Additional Family Medical History / Comment(s): LUNG CA Mother Family Medical History: Coronary Artery Disease (CAD) Additional Family Medical History / Comment(s): Mother of an infection. Medications and Allergies Home Medications Medication Instructions Recorded Confirmed Type Rivaroxaban [Xarelto] 20 mg PO HS 07/14/19 09/13/23 History OLANZapine 20 mg PO HS 10/29/20 09/13/23 History Omeprazole 20 mg PO DAILY 03/27/21 09/13/23 History DULoxetine HCL [Cymbalta] 60 mg PO DAILY 09/05/21 09/13/23 History Albuterol Sulfate [Ventolin HFA] 1 - 2 puff INHALATION RT-Q6H PRN 10/28/21 09/13/23 History Tamsulosin HCl [Flomax] 0.4 mg PO DAILY 10/28/21 09/13/23 History Tiotropium 2.5 Mcg/Puff [Spiriva 2 puff INHALATION RT-DAILY 10/28/21 09/13/23 History Respimat 2.5 Mcg] Cholecalciferol [Vitamin D3 (25 25 mcg PO DAILY 09/09/22 09/13/23 History Mcg = 1000 Iu)] Metoprolol Tartrate [Lopressor] 25 mg PO BID 09/09/22 09/13/23 History Spironolactone [Aldactone] 25 mg PO DAILY 09/09/22 09/13/23 History Budesonide [Pulmicort] 0.5 mg INHALATION RT-BID 03/17/23 09/13/23 History Docusate [Colace] 100 mg PO DAILY PRN 03/17/23 09/13/23 History Ipratropium-Albuterol Nebulize 3 ml INHALATION RT-QID 03/17/23 09/13/23 History [Duoneb 0.5 mg-3 mg/3 ml Soln] Potassium Chloride ER [K-Dur 20] 20 meq PO TID 03/17/23 09/13/23 History oxyCODONE-APAP 10-325MG [Percocet 1 tab PO Q6H PRN 03/17/23 09/13/23 History 10-325 mg] Ferrous Sulfate [Iron] 325 mg PO DAILY 05/21/23 09/13/23 History Magnesium Oxide [Magox 400] 400 mg PO DAILY 08/27/23 09/13/23 History Nystatin 100,000 Unit/ml Susp 10 ml PO QID PRN 08/27/23 09/13/23 History [Mycostatin Oral Susp] Relaxium Sleep Supplement 4 capsule PO HS 08/27/23 09/13/23 History Semaglutide [Ozempic] 0.25 mg SQ MO 08/27/23 09/13/23 History Naloxone HCl 1 spray NASAL DIRECTED PRN 09/10/23 09/13/23 History dexAMETHasone ORAL [Hexadrol] 6 mg PO DAILY 09/10/23 09/13/23 History Bumetanide [Bumex] 1 mg PO BID 09/13/23 09/13/23 History Allergies Allergy/AdvReac Type Severity Reaction Status Date / Time codeine Allergy Severe Swelling Verified 09/13/23 07:40 OF THROAT WITH COUGH SYRUP chlorpheniramine Allergy Unknown Verified 09/13/23 07:40 febuxostat [From Uloric] Allergy Unknown Verified 09/13/23 07:40 phenylephrine Allergy Unknown Verified 09/13/23 07:40 piperacillin sodium Allergy Unknown Verified 09/13/23 07:40 [From Zosyn] tazobactam sodium Allergy Unknown Verified 09/13/23 07:40 [From Zosyn] allopurinol AdvReac NAUSEA, Verified 09/13/23 07:40 RACING HEART buspirone [From BuSpar] AdvReac Rapid Verified 09/13/23 07:40 Heart Rate sulfamethoxazole AdvReac see Verified 09/13/23 07:40 [From Bactrim] comments trimethoprim [From Bactrim] AdvReac see Verified 09/13/23 07:40 comments Physical Exam Vitals: Vital Signs Temp Pulse Pulse Resp BP BP Pulse Ox 09/13/23 11:16 77 09/13/23 11:07 67 09/13/23 07:56 97.9 F 68 18 143/82 93 L 09/13/23 05:47 64 09/13/23 05:36 66 09/13/23 04:55 98.2 F 80 17 115/68 98 09/13/23 00:35 98.8 F 09/13/23 00:33 76 19 116/53 98 09/12/23 22:55 80 09/12/23 22:47 76 09/12/23 19:25 98.9 F 78 16 137/73 98 Intake and Output 09/12/23 09/13/23 09/13/23 22:59 06:59 14:59 Other: Voiding Method Urinal Weight 199.581 kg Results CBC & Chem 7: 09/12/23 21:53 09/12/23 21:53 Labs: Abnormal Lab Results - Last 24 Hours (Table) 09/12/23 09/12/23 09/12/23 Range/Units 21:53 21:53 21:53 RDW 16.0 H (11.5-15.5) % Neutrophils # (Manual) 9.30 H (1.3-7.7) k/uL Lymphocytes # (Manual) 0.42 L (1.0-4.8) k/uL Metamyelocytes # (Man) 0.21 H (0) k/uL VBG pH 7.44 H (7.31-7.41) VBG pCO2 66 H (37-51) mmHg VBG HCO3 45 H (24-28) mmol/L Sodium 132 L (137-145) mmol/L Chloride 87 L (98-107) mmol/L Carbon Dioxide 40 H (22-30) mmol/L BUN 43 H (9-20) mg/dL Creatinine 0.47 L (0.66-1.25) mg/dL Glucose 116 H (74-99) mg/dL ALT 175 H (4-49) U/L Alkaline Phosphatase 213 H (38-126) U/L Total Protein 5.6 L (6.3-8.2) g/dL Albumin 3.1 L (3.5-5.0) g/dL Procalcitonin (0.02-0.09) ng/mL Urine Protein (Negative) Ur Leukocyte Esterase (Negative) Urine WBC (0-5) /hpf Urine Bacteria (None) /hpf 09/12/23 09/13/23 Range/Units 21:53 01:05 RDW (11.5-15.5) % Neutrophils # (Manual) (1.3-7.7) k/uL Lymphocytes # (Manual) (1.0-4.8) k/uL Metamyelocytes # (Man) (0) k/uL VBG pH (7.31-7.41) VBG pCO2 (37-51) mmHg VBG HCO3 (24-28) mmol/L Sodium (137-145) mmol/L Chloride (98-107) mmol/L Carbon Dioxide (22-30) mmol/L BUN (9-20) mg/dL Creatinine (0.66-1.25) mg/dL Glucose (74-99) mg/dL ALT (4-49) U/L Alkaline Phosphatase (38-126) U/L Total Protein (6.3-8.2) g/dL Albumin (3.5-5.0) g/dL Procalcitonin 0.12 H (0.02-0.09) ng/mL Urine Protein Trace H (Negative) Ur Leukocyte Esterase Large H (Negative) Urine WBC 55 H (0-5) /hpf Urine Bacteria Rare H (None) /hpf
[2023-09-13] MEDS: oxyCODONE-APAP 10-325MG 1 EACH TAB PO PRN (19:07)
--- NOTE | 2023-09-13 19:31 | US ---
EXAMINATION TYPE: US chest DATE OF EXAM: 09/13/2023 COMPARISON: Radiograph 09/12/2023 CLINICAL INDICATION: Male, 62 years old with history of Right chest marking for thoracentesis; Pt sta lilli the DrMatthew told him the fluid was not enough to drain on 08/28/23 TECHNIQUE: Targeted ultrasound of the posterior lower bilateral hemithoraces EXAM MEASUREMENTS: Right Pleural Effusion pocket size: 7.5 cm Right skin surface to fluid distance: 2.7 cm Left Pleural Effusion pocket size: 0 cm Senior System Operator notes: Right side limited due to pt only being able to roll partially, and for about 30 s econds. The fluid appears to be heterogeneous Right side marked for possible thoracentesis outside the dept. Pulmonologists are able to review the images in the patient?s EMR. IMPRESSIONS: A moderate sized complex pleural effusion on the right.
[2023-09-13] MEDS: BUDESONIDE 0.5 MG/2 ML NEBU INHALATION SCH (19:52)
[2023-09-13] MEDS ORDERED: OLANZapine 10 MG TAB PO SCH (21:00)
[2023-09-13] MEDS: RIVAROXABAN 20 MG TAB PO SCH (21:51)
--- NOTE | 2023-09-13 23:28 | P.CONS ---
History of Present Illness - Reason for Consult Consult date: 09/13/23 - History of Present Illness Patient is a 62-year-old male with a past medical history significant for atrial fibrillation heart failure COPD DVT hypertension hyperlipidemia PE patient is presenting to the ER last night for evaluation of increasing shortness of breath, patient symptoms has been getting worse over the last few days and the patient was requiring more oxygen at home patient denies having any significant chest pain he did have a cough mild to moderate intensity did have some bloodstained sputum patient did have some nausea but no vomiting denies having any abdominal pain or any diarrhea patient apparently was recently diagnosed with a drug-resistant UTI the patient was supposed to get a PICC line for outpatient IV antibiotic therapy review of the cultures done in the [facility] system did show he grew Pseudomonas aeruginosa on 07/23/2023 that is sensitive to Cipro and cefepime patient on presentation to the hospital was afebrile and no fever has been recorded subsequently patient was not hypotensive on the 2 L nasal cannula oxygen white count was normal BUN and creatinine has been normal urine dip shows large leukocyte esterase 55 WBC patient has been admitted to the hospital infectious diseases was consulted for management of antibiotic therapy patient did have a chest x-ray with moderate right effusion Past Medical History Past Medical History: Atrial Fibrillation, Asthma, Cancer, Heart Failure, COPD, Deep Vein Thrombosis (DVT), GERD/Reflux, GI Bleed, Hyperlipidemia, Hypertension, Osteoarthritis (OA), Pneumonia, Pulmonary Embolus (PE), Renal Disease, Respiratory Disorder, Sleep Apnea/CPAP/BIPAP Additional Past Medical History / Comment(s): Pt hospitalized [facility] on 08/27/23 acute on chronic SOB, +Covid 1-- and early 2022, hx chronic CHF/abnormal ECHO-see report/paroxysmal afib/bilat pleural effusions w/ R sided thoracentesis. BLE neuropathy, colitis, chronic generalized pain, fluid retention, bedbound, hiatal hernia, DDD, scoliosis, ALEXIS w/ CPAP, CKD stage III, pseudoseizures - none in 1 year, basal cell skin cancer, BLE edema History of Any Multi-Drug Resistant Organisms: MRSA Year Discovered:: 05/22/23 MDRO Source:: Sputum Past Surgical History: Appendectomy, Bariatric Surgery, Cholecystectomy, Heart Catheterization, Hernia Repair, Joint Replacement, Orthopedic Surgery Additional Past Surgical History / Comment(s): Gastric sleeve 2013, L inguinal hernia repair, R elbow surgery x2, total R hip arthroplasty, L knee arthroscopy/ACL surgery, R ankle ORIF, EGD, colonoscopy, basal cell skin cancer exc face, surgery for varicele,lt knee arthroscopy x2. Past Anesthesia/Blood Transfusion Reactions: Previous Problems w/ Anesthesia Additional Past Anesthesia/Blood Transfusion Reaction / Comm: STATES WAS TOLD HE WAS A DIFFICULT INTUBATION WITH GASTRIC SLEEVE SURGERY, no problems with gallbladder surgery after gastric sleeve surgery in Aug 2021 Past Psychological History: Anxiety, Bipolar, Depression, Panic Disorder, Schizoaffective Disorder Smoking Status: Former smoker - Past Family History Father Family Medical History: Cancer Additional Family Medical History / Comment(s): LUNG CA Mother Family Medical History: Coronary Artery Disease (CAD) Additional Family Medical History / Comment(s): Mother of an infection. Medications and Allergies Home Medications Medication Instructions Recorded Confirmed Type Rivaroxaban [Xarelto] 20 mg PO HS 07/14/19 09/13/23 History OLANZapine 20 mg PO HS 10/29/20 09/13/23 History Omeprazole 20 mg PO DAILY 03/27/21 09/13/23 History DULoxetine HCL [Cymbalta] 60 mg PO DAILY 09/05/21 09/13/23 History Albuterol Sulfate [Ventolin HFA] 1 - 2 puff INHALATION RT-Q6H PRN 10/28/21 09/13/23 History Tamsulosin HCl [Flomax] 0.4 mg PO DAILY 10/28/21 09/13/23 History Tiotropium 2.5 Mcg/Puff [Spiriva 2 puff INHALATION RT-DAILY 10/28/21 09/13/23 History Respimat 2.5 Mcg] Cholecalciferol [Vitamin D3 (25 25 mcg PO DAILY 09/09/22 09/13/23 History Mcg = 1000 Iu)] Metoprolol Tartrate [Lopressor] 25 mg PO BID 09/09/22 09/13/23 History Spironolactone [Aldactone] 25 mg PO DAILY 09/09/22 09/13/23 History Budesonide [Pulmicort] 0.5 mg INHALATION RT-BID 03/17/23 09/13/23 History Docusate [Colace] 100 mg PO DAILY PRN 03/17/23 09/13/23 History Ipratropium-Albuterol Nebulize 3 ml INHALATION RT-QID 03/17/23 09/13/23 History [Duoneb 0.5 mg-3 mg/3 ml Soln] Potassium Chloride ER [K-Dur 20] 20 meq PO TID 03/17/23 09/13/23 History oxyCODONE-APAP 10-325MG [Percocet 1 tab PO Q6H PRN 03/17/23 09/13/23 History 10-325 mg] Ferrous Sulfate [Iron] 325 mg PO DAILY 05/21/23 09/13/23 History Magnesium Oxide [Magox 400] 400 mg PO DAILY 08/27/23 09/13/23 History Nystatin 100,000 Unit/ml Susp 10 ml PO QID PRN 08/27/23 09/13/23 History [Mycostatin Oral Susp] Relaxium Sleep Supplement 4 capsule PO HS 08/27/23 09/13/23 History Semaglutide [Ozempic] 0.25 mg SQ MO 08/27/23 09/13/23 History Naloxone HCl 1 spray NASAL DIRECTED PRN 09/10/23 09/13/23 History dexAMETHasone ORAL [Hexadrol] 6 mg PO DAILY 09/10/23 09/13/23 History Bumetanide [Bumex] 1 mg PO BID 09/13/23 09/13/23 History Allergies Allergy/AdvReac Type Severity Reaction Status Date / Time codeine Allergy Severe Swelling Verified 09/13/23 07:40 OF THROAT WITH COUGH SYRUP chlorpheniramine Allergy Unknown Verified 09/13/23 07:40 febuxostat [From Uloric] Allergy Unknown Verified 09/13/23 07:40 phenylephrine Allergy Unknown Verified 09/13/23 07:40 piperacillin sodium Allergy Unknown Verified 09/13/23 07:40 [From Zosyn] tazobactam sodium Allergy Unknown Verified 09/13/23 07:40 [From Zosyn] allopurinol AdvReac NAUSEA, Verified 09/13/23 07:40 RACING HEART buspirone [From BuSpar] AdvReac Rapid Verified 09/13/23 07:40 Heart Rate sulfamethoxazole AdvReac see Verified 09/13/23 07:40 [From Bactrim] comments trimethoprim [From Bactrim] AdvReac see Verified 09/13/23 07:40 comments Physical Exam Vitals: Vital Signs Temp Pulse Pulse Resp BP BP Pulse Ox 09/13/23 07:56 97.9 F 68 18 143/82 93 L 09/13/23 05:47 64 09/13/23 05:36 66 09/13/23 04:55 98.2 F 80 17 115/68 98 09/13/23 00:35 98.8 F 09/13/23 00:33 76 19 116/53 98 09/12/23 22:55 80 09/12/23 22:47 76 09/12/23 19:25 98.9 F 78 16 137/73 98 Intake and Output 09/12/23 09/13/23 09/13/23 22:59 06:59 14:59 Other: Weight 199.581 kg Results CBC & Chem 7: 09/12/23 21:53 09/12/23 21:53 Labs: Abnormal Lab Results - Last 24 Hours (Table) 09/12/23 09/12/23 09/12/23 Range/Units 21:53 21:53 21:53 RDW 16.0 H (11.5-15.5) % Neutrophils # (Manual) 9.30 H (1.3-7.7) k/uL Lymphocytes # (Manual) 0.42 L (1.0-4.8) k/uL Metamyelocytes # (Man) 0.21 H (0) k/uL VBG pH 7.44 H (7.31-7.41) VBG pCO2 66 H (37-51) mmHg VBG HCO3 45 H (24-28) mmol/L Sodium 132 L (137-145) mmol/L Chloride 87 L (98-107) mmol/L Carbon Dioxide 40 H (22-30) mmol/L BUN 43 H (9-20) mg/dL Creatinine 0.47 L (0.66-1.25) mg/dL Glucose 116 H (74-99) mg/dL ALT 175 H (4-49) U/L Alkaline Phosphatase 213 H (38-126) U/L Total Protein 5.6 L (6.3-8.2) g/dL Albumin 3.1 L (3.5-5.0) g/dL Urine Protein (Negative) Ur Leukocyte Esterase (Negative) Urine WBC (0-5) /hpf Urine Bacteria (None) /hpf 09/13/23 Range/Units 01:05 RDW (11.5-15.5) % Neutrophils # (Manual) (1.3-7.7) k/uL Lymphocytes # (Manual) (1.0-4.8) k/uL Metamyelocytes # (Man) (0) k/uL VBG pH (7.31-7.41) VBG pCO2 (37-51) mmHg VBG HCO3 (24-28) mmol/L Sodium (137-145) mmol/L Chloride (98-107) mmol/L Carbon Dioxide (22-30) mmol/L BUN (9-20) mg/dL Creatinine (0.66-1.25) mg/dL Glucose (74-99) mg/dL ALT (4-49) U/L Alkaline Phosphatase (38-126) U/L Total Protein (6.3-8.2) g/dL Albumin (3.5-5.0) g/dL Urine Protein Trace H (Negative) Ur Leukocyte Esterase Large H (Negative) Urine WBC 55 H (0-5) /hpf Urine Bacteria Rare H (None) /hpf Assessment and Plan Plan: 1patient presented to hospital with increasing shortness of breath in this patient who did have history of CHF and recurrent effusion with evidence of large right-sided effusion patient also have a positive UA with recent urine culture positive for Pseudomonas aeruginosa for which apparently the patient was going to get a PICC line did have some urinary symptoms 2-patient with multiple antibiotic allergies that would limit the number of antibiotics safe to use 3-we will start patient cefepime 2 g. Every 8 hour waiting for the culture to finalize We will follow on clinical condition and cultures to further adjust medication if needed Thank you for this consultation we will follow the patient along with you Dictation was produced using [employer] dictation software. please excuse any grammatical, word or spelling errors. Time with Patient: Greater than 30
[2023-09-14] MEDS: CEFEPIME 2 GM in SODIUM CHLORIDE 0.9% 100 ML IVPB SCH ×4 (00:41→23:49)
[2023-09-14] MEDS: FUROSEMIDE 10 MG/ML 4 ML VIAL IV SCH ×3 (07:09→21:48)
[2023-09-14] MEDS: IPRATROPIUM 0.5 MG/2.5 ML NEBU INHALATION SCH ×4 (08:01→20:37)
[2023-09-14] MEDS: BUDESONIDE 0.5 MG/2 ML NEBU INHALATION SCH ×2 (08:01→20:37)
[2023-09-14] MEDS: PANTOPRAZOLE 40 MG TABLET PO SCH (08:24)
[2023-09-14] MEDS: dexAMETHasone 2 MG TAB PO SCH (08:24)
[2023-09-14] MEDS: BUMETANIDE 1 MG TAB PO SCH ×2 (08:24→21:48)
[2023-09-14] MEDS: CHOLECALCIFEROL 25 MCG (1000 IU) TABLET PO SCH (08:24)
[2023-09-14] MEDS: OLANZapine 10 MG TAB PO SCH ×2 (08:24→21:49)
[2023-09-14] MEDS: FERROUS SULFATE 325 MG TAB PO SCH (08:25)
[2023-09-14] MEDS: MAGNESIUM OXIDE 400 MG TAB PO SCH (08:25)
[2023-09-14] MEDS: DULoxetine HCL 60 MG CAPSULE.DR PO SCH (08:25)
[2023-09-14] MEDS: TAMSULOSIN 0.4 MG CAP.ER.24H PO SCH (08:26)
[2023-09-14] MEDS: SPIRONOLACTONE 25 MG TAB PO SCH (08:26)
[2023-09-14] MEDS: POTASSIUM CHLORIDE ER 20 MEQ TAB.ER PO SCH ×3 (08:26→21:49)
[2023-09-14] MEDS: METOPROLOL TARTRATE 25 MG TAB PO SCH ×2 (08:26→21:48)
[2023-09-14] MEDS: oxyCODONE-APAP 10-325MG 1 EACH TAB PO PRN ×3 (08:41→21:49)
--- NOTE | 2023-09-14 11:35 | P.PN ---
Subjective Progress Note Date: 09/14/23 I am seeing this patient in new consultation today 09/13/2023 in the emergency room after he presented late last night for the chief complaint of shortness of breath. Patient is a 62-year-old white male with past medical history significant for chronic hypoxic and hypercapnic respiratory failure, chronic right-sided pleural effusion with prior thoracentesis 4, chronic DVT of the right leg anticoagulated on Xarelto, chronic atrial fibrillation, history of CVA/TIA, diabetes mellitus, GERD, GI bleed, hypertension, hyperlipidemia, obesity, obstructive sleep apnea maintained on Trilogy ventilator at home, among other comorbidities. Patient states that starting yesterday at 7 PM he started experiencing increasing shortness of breath accompanied with heart palpitations and substernal chest pressure. Denies any significant cough, fevers, myalgias, hemoptysis. He does report some increased lower extremity edema and orthopnea. Denies syncopal events. Unrelated, the patient is scheduled for a midline tomorrow. Patient states that his primary care provider, Mark Chanel NP, had noted him to have a positive UTI. Patient does suffer for chronic UTIs and resistant organisms. Patient is currently sitting up in bed, on 3 L/m nasal cannula, in no acute distress. His home ventilator is at bedside. CBC on arrival was unremarkable. No leukocytosis. VBG shows compensated hypercapnia with a pCO2 of 66 and a pH of 7.44. CMP on arrival showed a sodium 132, potassium 4.1, chloride 87, serum bicarb 40, B1 43, creatinine 0.47, glucose 116. Lactic acid level was 0.9. ECG shows normal sinus rhythm with frequent unifocal PVCs. No acute ischemic changes. Troponins negative 3. NT proBNP was not significantly elevated for age at 89. Urinalysis was positive for leukocytes and rare bacteria. Patient is afebrile. He is being admitted to the general medical floor. The patient is seen today 09/14/2023 in follow-up in the emergency department. He is currently resting in bed. Awake and alert in no acute distress. He is maintaining good O2 saturations in the 90s on 2 L/m per nasal cannula. He did have a midline placed yesterday. He remains on cefepime. Urine culture is revealing gram-negative bacilli. Ultrasound of the right chest reveals a 7.5 cm pocket. The patient is stable. No plans for thoracentesis. He is a very difficult patient to turn and sit up for a procedure. He is continued on Bumex and Aldactone. He is also on IV Lasix 40 mg every 12 hours. Anticoagulated wi th Xarelto. Objective - Vital Signs Vital signs: Vital Signs Temp 97.7 F 09/14/23 08:00 Pulse 68 09/14/23 08:15 Resp 20 09/14/23 08:00 BP 136/79 09/14/23 08:00 Pulse Ox 99 09/14/23 08:03 FiO2 3 09/14/23 00:37 Intake & Output 09/13/23 09/14/23 09/14/23 18:59 06:59 18:59 Output Total 1999 Balance -1999 Output: Urine 1999 Other: Voiding Method Urinal - Exam GENERAL EXAM: Alert, pleasant, morbidly obese 62-year-old male, on 2 L nasal cannula. comfortable in no apparent distress. HEAD: Normocephalic and atraumatic EYES: Normal reaction of pupils, equal size. NOSE: Clear with pink turbinates. THROAT: No erythema or exudates. NECK: No masses, no JVD. CHEST: No chest wall deformity. LUNGS: Equal air entry with no crackles, wheeze, rhonchi. Diminished right basilar lung sounds. No conversational dyspnea or accessory muscle use.. CVS: S1 and S2 normal with no audible murmur, regular rhythm. No extra heart sounds ABDOMEN: No hepatosplenomegaly, active bowel sounds, no guarding or rigidity. SPINE: No scoliosis or deformity SKIN: No rashes CENTRAL NERVOUS SYSTEM: No focal deficits, tone is normal in all 4 extremities. EXTREMITIES: There is severe 4+ bilateral lower extremity pitting edema. No clubbing, or cyanosis. Peripheral pulses are intact. - Labs CBC & Chem 7: 09/12/23 21:53 09/12/23 21:53 Labs: Microbiology - Last 24 Hours (Table) 09/13/23 01:05 Urine Culture - Preliminary Urine,Voided Gram Neg Bacilli Assessment and Plan Assessment: Acute on chronic hypoxemic and hypercapnic respiratory failure secondary to suspected exacerbation of diastolic congestive heart failure. Chest x-ray on arrival shows some mild cardiomegaly with a chronic right sided pleural effusion. No focal infiltrates or evidence of pneumonia. NT pro-bnp 579. Remains on diuretics. Recurrent and chronic right pleural effusion, with previous thoracentesis 4 Atypical chest pain, ACS ruled out Urinary tract infection secondary to gram-negative bacilli, currently on cefepime History of frequent UTIs Moderate pulmonary hypertension Obesity hypoventilation syndrome, maintained on home Trilogy ventilator HS Chronic obstructive pulmonary disease, stable History of PE/DVT, anticoagulated on Xarelto History of paroxysmal atrial fibrillation, currently in normal sinus rhythm Morbid obesity with a BMI of 52.2 kg/m History of TIA/CVA Diabetes mellitus type 2 Bilateral peripheral neuropathy Benign essential hypertension Hyperlipidemia Gastroesophageal reflux disease, without esophagitis Ex-smoker History of bipolar and schizoaffective disorder Plan: The patient was seen and evaluated Microbiology and medications reviewed Continued on cefepime Mid line placed Ultrasound of the chest reviewed No plans for thoracentesis at this time Continue diuretics We will continue to follow This patient was seen independently by the nurse practitioner I have personally seen and examined the patient, performed the documentation and the assessment and plan as written. Number of minutes spent on the visit: 22.
--- NOTE | 2023-09-14 13:09 | P.PN ---
Subjective Progress Note Date: 09/14/23 Principal diagnosis: Gram-negative urinary tract infection Patient is a 62-year-old male with a past medical history significant for atrial fibrillation heart failure COPD DVT hypertension hyperlipidemia PE patient is presenting to the ER for increasing shortness of breath, patient apparently did have a urinary symptoms of burning with outpatient urine culture positive for pseudomonas On today's evaluation that is 09/14/2023, the patient continues to be afebrile the patient is breathing comfortably on 3 L nasal cannula oxygen, the patient denies chest pain, has been complaining of cough with occasional sputum, patient denies abdominal pain, no nausea/vomiting and no diarrhea , did complain of urinary burning Patient did have a white count of 10.5 and creatinine 0.47 on admission no labs today urine is showing gram-negative bacilli Objective - Vital Signs Vital signs: Vital Signs Temp 98.1 F 09/14/23 12:00 Pulse 68 09/14/23 12:00 Resp 18 09/14/23 12:00 BP 111/69 09/14/23 12:00 Pulse Ox 99 09/14/23 12:00 FiO2 3 09/14/23 00:37 Intake & Output 09/13/23 09/14/23 09/14/23 18:59 06:59 18:59 Output Total 1999 Balance -1999 Output: Urine 1999 Other: Voiding Method Urinal - Exam GENERAL DESCRIPTION: A middle-aged male lying in bed in no distress RESPIRATORY SYSTEM: Unlabored breathing , decreased breath sounds at bases HEART: S1 S2 regular rate and rhythm , ABDOMEN: Soft , no tenderness EXTREMITIES: Diffuse swelling bilateral lower extremity no redness - Labs CBC & Chem 7: 09/12/23 21:53 09/12/23 21:53 Labs: Microbiology - Last 24 Hours (Table) 09/13/23 01:05 Urine Culture - Preliminary Urine,Voided Gram Neg Bacilli Assessment and Plan (1) Urinary tract infection Current Visit: Yes Status: Acute Code(s): N39.0 - URINARY TRACT INFECTION, SITE NOT SPECIFIED SNOMED Code(s): 96910892 (2) Penicillin allergy Current Visit: Yes Status: Acute Code(s): Z88.0 - ALLERGY STATUS TO PENICILLIN SNOMED Code(s): 24616877 Plan: 1patient presented to hospital with increasing shortness of breath in this patient who did have history of CHF and recurrent effusion with evidence of large right-sided effusion patient also have a positive UA with recent urine culture positive for Pseudomonas aeruginosa for which apparently the patient was going to get a PICC line did have some urinary symptoms 2-patient with multiple antibiotic allergies that would limit the number of antibiotics safe to use 3-patient to continue with cefepime while waiting for the culture to finalize Dictation was produced using [employer] dictation software. please excuse any grammatical, word or spelling errors. Time with Patient: Less than 30
[2023-09-14 13:56] LABS: African American GFR (CKD) >90 (>60 ml/min/1.73 sqM); Anion Gap 9 mmol/L; Blood Urea Nitrogen 38 mg/dL (9-20); Calcium 8.5 mg/dL (8.4-10.2); Carbon Dioxide 37 mmol/L (22-30); Chloride 84 mmol/L (98-107); Glucose 279 mg/dL (74-99); Non-African American GFR(CKD) >90 (>60 ml/min/1.73 sqM); Potassium 4.1 mmol/L (3.5-5.1); Sodium 130 mmol/L (137-145)
--- NOTE | 2023-09-14 18:09 | P.CRDCN ---
History of Present Illness History of present illness: This is Dr. Borja dictating a consult on this patient The patient was interviewed and examined IMPRESSION / ASSESSMENT: Diastolic heart failure, chronic. BNP 579 Pleural effusions, recurrent chronic Morbid obesity Hypoventilation syndrome History of DVT and pulmonary embolism on xarelto History of paroxysmal atrial fibrillation No evidence for acute myocardial infarction Twelve-lead EKG shows sinus mechanism right bundle branch block with PVCs PLAN: Continue diuresis and management rest. Failure HPI Patient states that he is aching all over. He has pain everywhere Since he short of breath States he is short of breath, does not appear so ROS: No fever chills or rigors, no cough, phlegm or expectoration, no nausea, vomiting or diarrhea, no hematuria, dysuria, no musculoskeletal complaints, no strokes or seizures, no skin lesions. EXAMINATION: Blood pressure 144/73 mmHg, normal respirations 16-18 and nonlabored Pulse rate in the 70s Heart sounds S1 and S2 are soft Breath sounds are reduced bilaterally Bilateral lower extremity deep Morbid obesity REVIEW OF LABS, ECG & MEDICAL DATA Hyponatremia Creatinine normal Cardiac enzymes normal BNP 579 Past Medical History Past Medical History: Atrial Fibrillation, Asthma, Cancer, Heart Failure, COPD, Deep Vein Thrombosis (DVT), GERD/Reflux, GI Bleed, Hyperlipidemia, Hypertension, Osteoarthritis (OA), Pneumonia, Pulmonary Embolus (PE), Renal Disease, Respira tory Disorder, Sleep Apnea/CPAP/BIPAP Additional Past Medical History / Comment(s): Pt hospitalized [facility] on 08/27/23 acute on chronic SOB, +Covid 1-- and early 2022, hx chronic CHF/abnormal ECHO-see report/paroxysmal afib/bilat pleural effusions w/ R sided thoracentesis. BLE neuropathy, colitis, chronic generalized pain, fluid retention, bedbound since 2019, hiatal hernia, DDD, scoliosis, ALEXIS w/ CPAP, CKD stage III, pseudoseizures - none in 1 year, basal cell skin cancer, BLE edema History of Any Multi-Drug Resistant Organisms: MRSA Date of last positivie culture/infection: 05/22/23 MDRO Source:: Sputum Past Surgical History: Appendectomy, Bariatric Surgery, Cholecystectomy, Hernia Repair, Joint Replacement, Orthopedic Surgery Additional Past Surgical History / Comment(s): Gastric sleeve 2013, L inguinal hernia repair, R elbow surgery x2, total R hip arthroplasty, L knee arthroscopy/ACL surgery, R ankle ORIF, EGD, colonoscopy, basal cell skin cancer exc face, surgery for varicele,lt knee arthroscopy x2. Past Anesthesia/Blood Transfusion Reactions: Previous Problems w/ Anesthesia Additional Past Anesthesia/Blood Transfusion Reaction / Comment(s): STATES WAS TOLD HE WAS A DIFFICULT INTUBATION WITH GASTRIC SLEEVE SURGERY, no problems with gallbladder surgery after gastric sleeve surgery in Aug 2021 Smoking Status: Former smoker - Past Family History Father Family Medical History: Cancer Additional Family Medical History / Comment(s): LUNG CA Mother Family Medical History: Coronary Artery Disease (CAD) Additional Family Medical History / Comment(s): Mother of an infection. Medications and Allergies Home Medications Medication Instructions Recorded Confirmed Type Rivaroxaban [Xarelto] 20 mg PO HS 07/14/19 09/13/23 History OLANZapine 20 mg PO HS 10/29/20 09/13/23 History Omeprazole 20 mg PO DAILY 03/27/21 09/13/23 History DULoxetine HCL [Cymbalta] 60 mg PO DAILY 09/05/21 09/13/23 History Albuterol Sulfate [Ventolin HFA] 1 - 2 puff INHALATION RT-Q6H PRN 10/28/21 09/13/23 History Tamsulosin HCl [Flomax] 0.4 mg PO DAILY 10/28/21 09/13/23 History Tiotropium 2.5 Mcg/Puff [Spiriva 2 puff INHALATION RT-DAILY 10/28/21 09/13/23 History Respimat 2.5 Mcg] Cholecalciferol [Vitamin D3 (25 25 mcg PO DAILY 09/09/22 09/13/23 History Mcg = 1000 Iu)] Metoprolol Tartrate [Lopressor] 25 mg PO BID 09/09/22 09/13/23 History Spironolactone [Aldactone] 25 mg PO DAILY 09/09/22 09/13/23 History Budesonide [Pulmicort] 0.5 mg INHALATION RT-BID 03/17/23 09/13/23 History Docusate [Colace] 100 mg PO DAILY PRN 03/17/23 09/13/23 History Ipratropium-Albuterol Nebulize 3 ml INHALATION RT-QID 03/17/23 09/13/23 History [Duoneb 0.5 mg-3 mg/3 ml Soln] Potassium Chloride ER [K-Dur 20] 20 meq PO TID 03/17/23 09/13/23 History oxyCODONE-APAP 10-325MG [Percocet 1 tab PO Q6H PRN 03/17/23 09/13/23 History 10-325 mg] Ferrous Sulfate [Iron] 325 mg PO DAILY 05/21/23 09/13/23 History Magnesium Oxide [Magox 400] 400 mg PO DAILY 08/27/23 09/13/23 History Nystatin 100,000 Unit/ml Susp 10 ml PO QID PRN 08/27/23 09/13/23 History [Mycostatin Oral Susp] Relaxium Sleep Supplement 4 capsule PO HS 08/27/23 09/13/23 History Semaglutide [Ozempic] 0.25 mg SQ MO 08/27/23 09/13/23 History Naloxone HCl 1 spray NASAL DIRECTED PRN 09/10/23 09/13/23 History dexAMETHasone ORAL [Hexadrol] 6 mg PO DAILY 09/10/23 09/13/23 History Bumetanide [Bumex] 1 mg PO BID 09/13/23 09/13/23 History Allergies Allergy/AdvReac Type Severity Reaction Status Date / Time codeine Allergy Severe Swelling Verified 09/13/23 07:40 OF THROAT WITH COUGH SYRUP chlorpheniramine Allergy Unknown Verified 09/13/23 07:40 febuxostat [From Uloric] Allergy Unknown Verified 09/13/23 07:40 phenylephrine Allergy Unknown Verified 09/13/23 07:40 piperacillin sodium Allergy Unknown Verified 09/13/23 07:40 [From Zosyn] tazobactam sodium Allergy Unknown Verified 09/13/23 07:40 [From Zosyn] allopurinol AdvReac NAUSEA, Verified 09/13/23 07:40 RACING HEART buspirone [From BuSpar] AdvReac Rapid Verified 09/13/23 07:40 Heart Rate sulfamethoxazole AdvReac see Verified 09/13/23 07:40 [From Bactrim] comments trimethoprim [From Bactrim] AdvReac see Verified 09/13/23 07:40 comments Physical Exam Vitals: Vital Signs Temp Pulse Resp BP Pulse Ox FiO2 09/14/23 16:03 76 09/14/23 15:48 76 09/14/23 15:43 77 18 144/73 100 09/14/23 12:00 98.1 F 68 18 111/69 99 09/14/23 11:45 71 09/14/23 11:33 71 09/14/23 08:15 68 09/14/23 08:03 99 09/14/23 08:01 70 09/14/23 08:00 97.7 F 70 20 136/79 99 09/14/23 06:10 72 09/14/23 04:33 69 18 122/69 99 09/14/23 03:00 66 16 128/71 98 09/14/23 01:04 70 20 109/75 99 09/14/23 00:37 3 09/13/23 22:51 76 18 132/72 97 09/13/23 21:48 80 20 132/83 98 09/13/23 20:09 80 09/13/23 19:54 75 09/13/23 19:28 97.9 F 90 18 123/75 96 Intake and Output 09/14/23 09/14/23 09/14/23 06:59 14:59 22:59 Output Total 1999 Balance -1999 Output: Urine 1999 Other: # Voids 0 Weight 199.581 kg Results 09/12/23 21:53 09/14/23 13:25 Comprehensive Metabolic Panel 09/14/23 Range/Units 13:25 Sodium 130 L (137-145) mmol/L Potassium 4.1 (3.5-5.1) mmol/L Chloride 84 L (98-107) mmol/L Carbon Dioxide 37 H (22-30) mmol/L BUN 38 H (9-20) mg/dL Creatinine 0.52 L (0.66-1.25) mg/dL Glucose 279 H (74-99) mg/dL Calcium 8.5 (8.4-10.2) mg/dL Current Medications Generic Name Dose Route Start Last Admin Trade Name Freq PRN Reason Stop Dose Admin Budesonide 0.5 mg 09/13/23 20:00 09/14/23 08:01 Budesonide 0.5 Mg/2 Ml Nebu INHALATION 0.5 mg RT-BID YUN Administration Bumetanide 1 mg 09/13/23 10:23 09/14/23 08:24 Bumetanide 1 Mg Tab PO 1 mg BID YUN Administration Cholecalciferol 25 mcg 09/13/23 12:30 09/14/23 08:24 Cholecalciferol 25 Mcg (1000 Iu) Tablet PO 25 mcg DAILY YUN Administration Dexamethasone 6 mg 09/13/23 12:30 09/14/23 08:24 Dexamethasone 2 Mg Tab PO 6 mg DAILY YUN Administration Docusate Sodium 100 mg 09/13/23 11:56 Docusate 100 Mg Cap PO DAILY PRN Constipation Duloxetine HCl 60 mg 09/13/23 12:30 09/14/23 08:25 Duloxetine Hcl 60 Mg Capsule.Dr PO 60 mg DAILY YUN Administration Ferrous Sulfate 325 mg 09/14/23 09:00 09/14/23 08:25 Ferrous Sulfate 325 Mg Tab PO 325 mg DAILY YUN Administration Furosemide 40 mg 09/13/23 22:45 09/14/23 08:31 Furosemide 10 Mg/Ml 4 Ml Vial IV 40 mg Q12HR YUN Administration Cefepime HCl 2 gm/ Sodium 100 mls @ 25 mls/hr 09/14/23 00:00 09/14/23 16:21 Chloride IVPB 25 mls/hr Q8HR YUN Administration Protocol Ipratropium [place] 0.5 mg 09/13/23 12:00 09/14/23 15:48 Ipratropium 0.5 Mg/2.5 Ml Nebu INHALATION 0.5 mg RT-QID YUN Administration Magnesium Oxide 400 mg 09/14/23 09:00 09/14/23 08:25 Magnesium Oxide 400 Mg Tab PO 400 mg DAILY YUN Administration Metoprolol Tartrate 25 mg 09/13/23 12:30 09/14/23 08:26 Metoprolol Tartrate 25 Mg Tab PO 25 mg BID YUN Administration Non-Formulary Medication 0.25 mg 09/13/23 12:45 09/13/23 13:50 Semaglutide [Ozempic] SQ Not Given Mo@0900 YUN Nystatin 1,000,000 unit 09/13/23 12:43 Nystatin 100,000 Unit/Ml Susp 500,000 Unit/5 Ml Cup PO QID PRN thrush Protocol Olanzapine 20 mg 09/13/23 00:21 09/14/23 08:24 Olanzapine 10 Mg Tab PO Not Given DAILY YUN Olanzapine 20 mg 09/13/23 21:00 09/13/23 21:50 Olanzapine 10 Mg Tab PO 20 mg HS YUN Administration Oxycodone/Acetaminophen 1 each 09/13/23 11:55 09/14/23 15:45 Oxycodone-Apap 10-325mg 1 Each Tab PO 1 each Q6HR PRN Administration Pain Pantoprazole Sodium 40 mg 09/14/23 07:30 09/14/23 08:24 Pantoprazole 40 Mg Tablet PO 40 mg DAILY@0730 YUN Administration Potassium Chloride 20 meq 09/13/23 16:00 09/14/23 15:45 Potassium Chloride Er 20 Meq Tab.Er PO 20 meq TID YUN Administration Rivaroxaban 20 mg 09/13/23 21:00 09/13/23 21:51 Rivaroxaban 20 Mg Tab PO 20 mg HS YUN Administration Protocol Spironolactone 25 mg 09/13/23 12:30 09/14/23 08:26 Spironolactone 25 Mg Tab PO 25 mg DAILY YUN Administration Tamsulosin HCl 0.4 mg 09/13/23 12:30 09/14/23 08:26 Tamsulosin 0.4 Mg Cap.Er.24h PO 0.4 mg DAILY YUN Administration Intake and Output 09/14/23 09/14/23 09/14/23 06:59 14:59 22:59 Output Total 1999 -1999 Output: Urine 1999 Other: # Voids 0 Weight 199.581 kg Patient Weight 09/15/23 06:59 Weight 199.581 kg 09/12/23 21:53 09/14/23 13:25
[2023-09-14 18:53] LABS: Glucose,Whole Blood 168 mg/dL (70-110)
[2023-09-14] MEDS: RIVAROXABAN 20 MG TAB PO SCH (21:49)
[2023-09-15 05:08] LABS: Glucose,Whole Blood 173 mg/dL (70-110)
[2023-09-15] MEDS: PANTOPRAZOLE 40 MG TABLET PO SCH (05:51)
[2023-09-15] MEDS: oxyCODONE-APAP 10-325MG 1 EACH TAB PO PRN ×4 (05:51→21:14)
[2023-09-15] MEDS: CEFEPIME 2 GM in SODIUM CHLORIDE 0.9% 100 ML IVPB SCH ×2 (07:55→15:26)
[2023-09-15] MEDS: DULoxetine HCL 60 MG CAPSULE.DR PO SCH (07:56)
[2023-09-15] MEDS: BUMETANIDE 1 MG TAB PO SCH ×2 (07:56→21:13)
[2023-09-15] MEDS: MAGNESIUM OXIDE 400 MG TAB PO SCH (07:56)
[2023-09-15] MEDS: CHOLECALCIFEROL 25 MCG (1000 IU) TABLET PO SCH (07:56)
[2023-09-15] MEDS: dexAMETHasone 2 MG TAB PO SCH (07:56)
[2023-09-15] MEDS: FERROUS SULFATE 325 MG TAB PO SCH (07:56)
[2023-09-15] MEDS: FUROSEMIDE 10 MG/ML 4 ML VIAL IV SCH ×2 (07:56→21:13)
[2023-09-15] MEDS: METOPROLOL TARTRATE 25 MG TAB PO SCH ×2 (07:57→21:13)
[2023-09-15] MEDS: TAMSULOSIN 0.4 MG CAP.ER.24H PO SCH (07:57)
[2023-09-15] MEDS: POTASSIUM CHLORIDE ER 20 MEQ TAB.ER PO SCH ×3 (07:57→21:14)
[2023-09-15] MEDS: SPIRONOLACTONE 25 MG TAB PO SCH (07:57)
[2023-09-15] MEDS: OLANZapine 10 MG TAB PO SCH ×2 (07:58→21:14)
[2023-09-15] MEDS: IPRATROPIUM 0.5 MG/2.5 ML NEBU INHALATION SCH ×4 (10:05→21:55)
[2023-09-15] MEDS: BUDESONIDE 0.5 MG/2 ML NEBU INHALATION SCH ×2 (10:05→21:55)
--- NOTE | 2023-09-15 10:47 | P.PN ---
Subjective Progress Note Date: 09/15/23 The patient was interviewed and examined IMPRESSION / ASSESSMENT: Diastolic heart failure, chronic. BNP 579 Pleural effusions, recurrent chronic Morbid obesity Hypoventilation syndrome History of DVT and pulmonary embolism on xarelto History of paroxysmal atrial fibrillation No evidence for acute myocardial infarction Twelve-lead EKG shows sinus mechanism right bundle branch block with PVCs PLAN: Continue diuresis and management of heart failure Monitor I&O, daily weights, electrolytes and renal function HPI Patient states that he is aching all over. He has pain everywhere Since he short of breath States he is short of breath, does not appear so 09/15 Patient is seen today in follow-up. He states his breathing is a little bit better. He has been continued on both oral Bumex and IV Lasix. He states he has been on Bumex 2 mg twice daily at home in the past but it was too high dose for him. No repeat blood work available at the time of this dictation. EXAMINATION: Blood pressure 149/72 mmHg, normal respirations 16-18 and nonlabored Pulse rate in the 70s Heart sounds S1 and S2 are soft Breath sounds are reduced bilaterally Bilateral lower extremity edema Morbid obesity REVIEW OF LABS, ECG & MEDICAL DATA Hyponatremia Creatinine normal Cardiac enzymes normal BNP 579 Nurse practitioner note has been reviewed, I agree with the documented findings and plan of care. Patient was seen and examined. Objective - Vital Signs Vital signs: Vital Signs Temp 97.6 F 09/15/23 07:55 Pulse 69 09/15/23 07:55 Resp 18 09/15/23 07:55 BP 149/72 09/15/23 07:55 Pulse Ox 99 09/15/23 07:55 FiO2 3 09/15/23 01:12 Intake & Output 09/14/23 09/15/23 09/15/23 18:59 06:59 18:59 Output Total 1275 Balance -1275 Weight 199.581 kg Output: Urine 1275 Other: Voiding Method Urinal # Voids 0 - Labs CBC & Chem 7: 09/12/23 21:53 09/14/23 13:25 Labs: Abnormal Lab Results - Last 24 Hours (Table) 09/14/23 09/14/23 09/15/23 Range/Units 13:25 18:52 05:07 Sodium 130 L (137-145) mmol/L Chloride 84 L (98-107) mmol/L Carbon Dioxide 37 H (22-30) mmol/L BUN 38 H (9-20) mg/dL Creatinine 0.52 L (0.66-1.25) mg/dL Glucose 279 H (74-99) mg/dL POC Glucose (mg/dL) 168 H 173 H (70-110) mg/dL Microbiology - Last 24 Hours (Table) 09/13/23 01:05 Urine Culture - Preliminary Urine,Voided Gram Neg Bacilli
[2023-09-15 11:16] LABS: Glucose,Whole Blood 147 mg/dL (70-110)
--- NOTE | 2023-09-15 11:53 | P.PN ---
Subjective Progress Note Date: 09/15/23 Principal diagnosis: Gram-negative urinary tract infection Patient is a 62-year-old male with a past medical history significant for atrial fibrillation heart failure COPD DVT hypertension hyperlipidemia PE patient is presenting to the ER for increasing shortness of breath, patient apparently did have a urinary symptoms of burning with outpatient urine culture positive for pseudomonas On today's evaluation that is 09/15/2023, the patient remains to be afebrile the patient is breathing comfortably on 4 L nasal cannula oxygen, the patient denies chest pain. Occasional dry cough, patient denies nausea/vomiting , no diarrhea and no abdominal pain, urinary symptoms improved Patient did have a white count of 10.5 on admission and a creatinine 0.52 urine is showing gram-negative bacilli Objective - Vital Signs Vital signs: Vital Signs Temp 97.6 F 09/15/23 07:55 Pulse 69 09/15/23 07:55 Resp 18 09/15/23 07:55 BP 149/72 09/15/23 07:55 Pulse Ox 99 09/15/23 07:55 FiO2 3 09/15/23 01:12 Intake & Output 09/14/23 09/15/23 09/15/23 18:59 06:59 18:59 Output Total 1275 500 Balance -1275 -500 Weight 199.581 kg Output: Urine 1275 500 Other: Voiding Method Urinal Urinal # Voids 0 - Exam GENERAL DESCRIPTION: A middle-aged male lying in bed in no distress RESPIRATORY SYSTEM: Unlabored breathing , decreased breath sounds at bases HEART: S1 S2 regular rate and rhythm , ABDOMEN: Soft , no tenderness EXTREMITIES: Diffuse swelling bilateral lower extremity no redness - Labs CBC & Chem 7: 09/12/23 21:53 09/14/23 13:25 Labs: Abnormal Lab Results - Last 24 Hours (Table) 09/14/23 09/14/23 09/15/23 Range/Units 13:25 18:52 05:07 Sodium 130 L (137-145) mmol/L Chloride 84 L (98-107) mmol/L Carbon Dioxide 37 H (22-30) mmol/L BUN 38 H (9-20) mg/dL Creatinine 0.52 L (0.66-1.25) mg/dL Glucose 279 H (74-99) mg/dL POC Glucose (mg/dL) 168 H 173 H (70-110) mg/dL 09/15/23 Range/Units 11:14 Sodium (137-145) mmol/L Chloride (98-107) mmol/L Carbon Dioxide (22-30) mmol/L BUN (9-20) mg/dL Creatinine (0.66-1.25) mg/dL Glucose (74-99) mg/dL POC Glucose (mg/dL) 147 H (70-110) mg/dL Microbiology - Last 24 Hours (Table) 09/13/23 01:05 Urine Culture - Preliminary Urine,Voided Gram Neg Bacilli Assessment and Plan (1) Urinary tract infection Current Visit: Yes Status: Acute Code(s): N39.0 - URINARY TRACT INFECTION, SITE NOT SPECIFIED SNOMED Code(s): 08231718 (2) Penicillin allergy Current Visit: Yes Status: Acute Code(s): Z88.0 - ALLERGY STATUS TO PENICILLIN SNOMED Code(s): 17526036 Plan: 1patient presented to hospital with increasing shortness of breath in this patient who did have history of CHF and recurrent effusion with evidence of large right-sided effusion patient also have a positive UA with recent urine culture positive for Pseudomonas aeruginosa for which apparently the patient was going to get a PICC line did have some urinary symptoms 2-patient with multiple antibiotic allergies that would limit the number of antibiotics safe to use 3-patient did have some clinical improvement and will continue with cefepime while waiting for the culture to finalize Dictation was produced using [employer] dictation software. please excuse any grammatical, word or spelling errors. Time with Patient: Less than 30
[2023-09-15 14:05] VITALS: BMI 52.2
--- NOTE | 2023-09-15 15:16 | P.PN ---
Subjective Progress Note Date: 09/15/23 I am seeing this patient in new consultation today 09/13/2023 in the emergency room after he presented late last night for the chief complaint of shortness of breath. Patient is a 62-year-old white male with past medical history significant for chronic hypoxic and hypercapnic respiratory failure, chronic right-sided pleural effusion with prior thoracentesis 4, chronic DVT of the right leg anticoagulated on Xarelto, chronic atrial fibrillation, history of CVA/TIA, diabetes mellitus, GERD, GI bleed, hypertension, hyperlipidemia, obesity, obstructive sleep apnea maintained on Trilogy ventilator at home, among other comorbidities. Patient states that starting yesterday at 7 PM he started experiencing increasing shortness of breath accompanied with heart palpitations and substernal chest pressure. Denies any significant cough, fevers, myalgias, hemoptysis. He does report some increased lower extremity edema and orthopnea. Denies syncopal events. Unrelated, the patient is scheduled for a midline tomorrow. Patient states that his primary care provider, Mark Chanel NP, had noted him to have a positive UTI. Patient does suffer for chronic UTIs and resistant organisms. Patient is currently sitting up in bed, on 3 L/m nasal cannula, in no acute distress. His home ventilator is at bedside. CBC on arrival was unremarkable. No leukocytosis. VBG shows compensated hypercapnia with a pCO2 of 66 and a pH of 7.44. CMP on arrival showed a sodium 132, potassium 4.1, chloride 87, serum bicarb 40, B1 43, creatinine 0.47, glucose 116. Lactic acid level was 0.9. ECG shows normal sinus rhythm with frequent unifocal PVCs. No acute ischemic changes. Troponins negative 3. NT proBNP was not significantly elevated for age at 579. Urinalysis was positive for leukocytes and rare bacteria. Patient is afebrile. He is being admitted to the general medical floor. The patient is seen today 09/14/2023 in follow-up in the emergency department. He is currently resting in bed. Awake and alert in no acute distress. He is maintaining good O2 saturations in the 90s on 2 L/m per nasal cannula. He did have a midline placed yesterday. He remains on cefepime. Urine culture is revealing gram-negative bacilli. Ultrasound of the right chest reveals a 7.5 cm pocket. The patient is stable. No plans for thoracentesis. He is a very difficult patient to turn and sit up for a procedure. He is continued on Bumex and Aldactone. He is also on IV Lasix 40 mg every 12 hours. Anticoagulated wi th Xarelto. The patient is seen today 09/15/2023 in follow-up on the regular medical floor. He is resting comfortably in bed. Awake and alert in no acute distress. He is maintaining good O2 saturations in the upper 90s on 3 L/m per nasal cannula. He is afebrile. Hemodynamically stable. Urine culture is positive for pseudomonas aeruginosa. Glucose 168. He is continued on cefepime. Remains on bronchodilators. Remains on diuretics. Currently in a -1.2 L balance. Anticoagulated with Xarelto. Objective - Vital Signs Vital signs: Vital Signs Temp 97.5 F L 09/15/23 14:00 Pulse 79 09/15/23 14:00 Resp 17 09/15/23 14:00 BP 145/82 09/15/23 14:00 Pulse Ox 94 L 09/15/23 14:00 FiO2 3 09/15/23 01:12 Intake & Output 09/14/23 09/15/23 09/15/23 18:59 06:59 18:59 Output Total 1275 500 Balance -1275 -500 Weight 199.581 kg 199.581 kg Output: Urine 1275 500 Other: Voiding Method Urinal Urinal # Voids 0 - Exam GENERAL EXAM: Alert, pleasant, obese 62-year-old male, on 3 L nasal cannula. comfortable in no apparent distress. HEAD: Normocephalic and atraumatic EYES: Normal reaction of pupils, equal size. NOSE: Clear with pink turbinates. THROAT: No erythema or exudates. NECK: No masses, no JVD. CHEST: No chest wall deformity. LUNGS: Equal air entry with no crackles, wheeze, rhonchi. Diminished right basilar lung sounds. CVS: S1 and S2 normal with no audible murmur, regular rhythm. No extra heart sounds ABDOMEN: No hepatosplenomegaly, active bowel sounds, no guarding or rigidity. SPINE: No scoliosis or deformity SKIN: No rashes CENTRAL NERVOUS SYSTEM: No focal deficits, tone is normal in all 4 extremities. EXTREMITIES: There is severe 4+ bilateral lower extremity pitting edema. No clubbing, or cyanosis. Peripheral pulses are intact. - Labs CBC & Chem 7: 09/12/23 21:53 09/14/23 13:25 Labs: Abnormal Lab Results - Last 24 Hours (Table) 09/14/23 09/15/23 09/15/23 Range/Units 18:52 05:07 11:14 POC Glucose (mg/dL) 168 H 173 H 147 H (70-110) mg/dL Microbiology - Last 24 Hours (Table) 09/13/23 01:05 Urine Culture - Final Urine,Voided Pseudomonas aeruginosa Assessment and Plan Assessment: Acute on chronic hypoxemic and hypercapnic respiratory failure secondary to suspected exacerbation of diastolic congestive heart failure. Chest x-ray on arrival shows some mild cardiomegaly with a chronic right sided pleural effusion. No focal infiltrates or evidence of pneumonia. NT pro-bnp 579. Remains on diuretics. Recurrent and chronic right pleural effusion, with previous thoracentesis 4 Atypical chest pain, ACS ruled out Urinary tract infection secondary to gram-negative bacilli, currently on cefepime History of frequent UTIs Moderate pulmonary hypertension Obesity hypoventilation syndrome, maintained on home Trilogy ventilator HS Chronic obstructive pulmonary disease, stable History of PE/DVT, anticoagulated on Xarelto History of paroxysmal atrial fibrillation, currently in normal sinus rhythm Morbid obesity with a BMI of 52.2 kg/m History of TIA/CVA Diabetes mellitus type 2 Bilateral peripheral neuropathy Benign essential hypertension Hyperlipidemia Gastroesophageal reflux disease, without esophagitis Ex-smoker History of bipolar and schizoaffective disorder Plan: The patient was seen and evaluated Medications reviewed Continued on cefepime Mid line placed Continue diuretics Titrate down the FiO2 as tolerated We will continue to follow I have personally seen and examined the patient, performed the documentation and the assessment and plan as written. Number of minutes spent on the visit: 10.
[2023-09-15 16:30] LABS: Glucose,Whole Blood 191 mg/dL (70-110)
[2023-09-15 19:57] VITALS: RESP 20
[2023-09-15 20:38] LABS: Glucose,Whole Blood 137 mg/dL (70-110)
--- NOTE | 2023-09-15 20:38 | P.PN ---
Progress Note - Text Progress Note Date: 09/14/23 Chief Complaint: Short of breath This is a 62-year-old patient who follows with visiting physicians Dr. Crenshaw. Extensive medical history. Patient been not able to walk since 2018 has gradually become very weak. Baseline some short of breath for 2 years. chronic pain in multiple joints. Normally has a bowel movement every day. Has control of his bladder. Has chronic lower extremity edema. Home oxygen 2 L. Lives with his son and daughter. August 29: Breathing much better. Phil wrap lower extremity. Patient very keen to go home. Cleared by pulmonary. Discharged on fluid restriction. Phil wrap. Decadron 4 mg day. Can be tapered of outpatient. Questions answered. Patient presented increasing shortness of breath and some palpitation. For about a week. No cough. Some wheezing. No fever no chills. Appetite is fair. 3 bowel movement. Normally does use a urinal. No chest pain. September 14: Some improvement in shortness of breath. IV Lasix. On IV cefepime. Urine culture pending. Being followed by ID. Oral intake good. Current medications reviewed Past medical history to include: Atrial fibrillation, CHF, COPD, DVT, GERD, GI bleed, hypertension, hyperlipidemia, osteomyelitis, pulmonary embolism, obstructive sleep apnea, Coumadin 2021 when only 2022, CHF, right-sided thoracentesis, peripheral neuropathy, colitis, generalized chronic pain, obstructive sleep apnea with CPAP, CAD stage III, pseudoseizures, home oxygen bariatric surgery, gastric sleeve 2013, bipolar, schizoaffective disorder Social history: Patient visit his son and daughter. He has been bedbound for past 4 years. Requires assistance to move. Unable to sit up on his own. Patient smoked for 23 years stopped in 1998. Formerly did abuse alcohol. Stopped in 1997 Physical examination: VITAL SIGNS: 98.7, 78, 18, 161/72, 99% on 2 L GENERAL: Reclining in bed EYES: Pupils equal. Conjunctiva normal. HEENT: External appearance of nose and ears normal, oral cavity grossly normal. NECK: JVD unable to assess; masses not palpable. HEART: First and second heart sounds are normal; edema present. LUNGS: Respiratory rate increased; decreased breath sound. ABDOMEN: Soft, nontender, liver spleen not palpable, no masses palpable. PSYCH: [Alert and oriented x3; mood and affect anxious. MUSCULOSKELETAL:No Clubbing/cyanosis;muscles-grossly intact. OA NEUROLOGICAL: Cranial nerves grossly intact; no facial asymmetry, power and sensation grossly intact. LYMPHATICS: No lymph nodes palpable in the axilla and neck INVESTIGATIONS, reviewed in the clinical context: September 14: Potassium 4.1 BUN 38 creatinine 0.5 to 09/12/2023: White count 10.5 hemoglobin 13 platelets 180 sodium 132 potassium 4.1 BUN 43 creatinine 0.47 AST 29 ALT 175 Troponin I less than 0.0123 ProBNP 579 UA: Leukoesterase large. WBC 55. EKG tracing personally reviewed by me-no sinus rhythm. PVCs. Chest x-ray film personally reviewed by me-moderate right pleural effusion. Previous investigations: 2-D echocardiogram [April 2023] - moderately increased left ventricle thickness. EF 50-55%. Moderate pulmonary hypertension. [id number] aortic regurgitation. Moderate mitral regurgitation. Assessment and plan: -Acute on chronic progressive shortness of breath. Multifactorial. COPD , Obesity hypoventilation syndrome. Right pleural effusion: Improving -Right pleural effusion Be followed by pulmonary. Not for thoracentesis. -Acute COPD exacerbation in a prior smoker Atrovent 4 times a day. Decadron 6 mg. . Nebulized Pulmicort - acute on chronic cor pulmonale exacerbation with edema IV Lasix -BPH Flomax 0.4 mg daily -Chronic hypoxic respiratory failure, multifactorial 2 L of oxygen at home -Moderate secondary pulmonary hypertension, multifactorial -Mild to moderate mitral and aortic regurgitation -Essential hypertension Lopressor 25 mg twice a day -Chronic DVT Xarelto -Bipolar disorder Olanzapine. Cymbalta. -Chronic medical debility patient is chronically bedbound. -Chronic bilateral lower extremity venous insufficiency Phil wrap's -Acute UTI IV cefepime. Being followed by ID. -GERD Omeprazole -Obesity hypoventilation syndrome suspected. -Obstructive sleep apnea uses CPAP -Morbid obesity BMI 51 Weight loss measures, outpatient -Diabetes mellitus type 2 ozempic IV Lasix. Bronchodilators. Steroids. Discussed with patient. Phil wrap's.
--- NOTE | 2023-09-15 20:43 | P.PN ---
Progress Note - Text Progress Note Date: 09/15/23 Chief Complaint: Short of breath This is a 62-year-old patient who follows with visiting physicians Dr. Crenshaw. Extensive medical history. Patient been not able to walk since 2019 has gradually become very weak. Baseline some short of breath for 2 years. chronic pain in multiple joints. Normally has a bowel movement every day. Has control of his bladder. Has chronic lower extremity edema. Home oxygen 2 L. Lives with his son and daughter. August 29: Breathing much better. Phil wrap lower extremity. Patient very keen to go home. Cleared by pulmonary. Discharged on fluid restriction. Phil wrap. Decadron 4 mg day. Can be tapered of outpatient. Questions answered. Patient presented increasing shortness of breath and some palpitation. For about a week. No cough. Some wheezing. No fever no chills. Appetite is fair. 3 bowel movement. Normally does use a urinal. No chest pain. September 14: Some improvement in shortness of breath. IV Lasix. On IV cefepime. Urine culture pending. Being followed by ID. Oral intake good. September 15: Eating well. Will DC IV Lasix after today. Urine culture growing Pseudomonas. IV cefepime. Discussed with patient. Active Medications Budesonide (Budesonide 0.5 Mg/2 Ml Nebu) 0.5 mg INHALATION RT-BID [facility] [place] Last Admin: 09/15/23 10:05 Dose: Not Given Bumetanide (Bumetanide 1 Mg Tab) 1 mg PO BID [facility] [place] Last Admin: 09/15/23 07:56 Dose: 1 mg Cholecalciferol (Cholecalciferol 25 Mcg (1000 Iu) Tablet) 25 mcg PO DAILY [facility] [place] Last Admin: 09/15/23 07:56 Dose: 25 mcg Dexamethasone (Dexamethasone 2 Mg Tab) 6 mg PO DAILY [facility] [place] Last Admin: 09/15/23 07:56 Dose: 6 mg Docusate Sodium (Docusate 100 Mg Cap) 100 mg PO DAILY PRN PRN Reason: Constipation Duloxetine HCl (Duloxetine Hcl 60 Mg Capsule.) 60 mg PO DAILY [facility] [place] Last Admin: 09/15/23 07:56 Dose: 60 mg Ferrous Sulfate (Ferrous Sulfate 325 Mg Tab) 325 mg PO DAILY [facility] [place] Last Admin: 09/15/23 07:56 Dose: 325 mg Furosemide (Furosemide 10 Mg/Ml 4 Ml Vial) 40 mg IV Q12HR [facility] [place] Stop: 09/15/23 23:59 Last Admin: 09/15/23 07:56 Dose: 40 mg Cefepime HCl 2 gm/ Sodium (Chloride) 100 mls @ 25 mls/hr IVPB Q8HR [facility] [place]; Protocol Last Admin: 09/15/23 15:26 Dose: 25 mls/hr Insulin Aspart (Insulin Aspart (Novolog) 100 Unit/Ml Vial) 0 unit SQ ACHS [facility] [place]; Protocol Ipratropium [place] (Ipratropium 0.5 Mg/2.5 Ml Nebu) 0.5 mg INHALATION RT-QID [facility] [place] Last Admin: 09/15/23 17:06 Dose: 0.5 mg Magnesium Oxide (Magnesium Oxide 400 Mg Tab) 400 mg PO DAILY [facility] [place] Last Admin: 09/15/23 07:56 Dose: 400 mg Metoprolol Tartrate (Metoprolol Tartrate 25 Mg Tab) 25 mg PO BID [facility] [place] Last Admin: 09/15/23 07:57 Dose: 25 mg Non-Formulary Medication (Semaglutide [Ozempic]) 0.25 mg SQ Mo@0900 [facility] [place] Last Admin: 09/13/23 13:50 Dose: Not Given Nystatin (Nystatin 100,000 Unit/Ml Susp 500,000 Unit/5 Ml Cup) 1,000,000 unit PO QID PRN; Protocol PRN Reason: thrush Olanzapine (Olanzapine 10 Mg Tab) 20 mg PO DAILY [facility] [place] Last Admin: 09/15/23 07:58 Dose: Not Given Olanzapine (Olanzapine 10 Mg Tab) 20 mg PO HS [facility] [place] Last Admin: 09/14/23 21:49 Dose: 20 mg Oxycodone/Acetaminophen (Oxycodone-Apap 10-325mg 1 Each Tab) 1 each PO Q6HR PRN PRN Reason: Pain Last Admin: 09/15/23 15:26 Dose: 1 each Pantoprazole Sodium (Pantoprazole 40 Mg Tablet) 40 mg PO DAILY@0730 [facility] [place] Last Admin: 09/15/23 05:51 Dose: 40 mg Potassium Chloride (Potassium Chloride Er 20 Meq Tab.Er) 20 meq PO TID [facility] [place] Last Admin: 09/15/23 15:27 Dose: 20 meq Rivaroxaban (Rivaroxaban 20 Mg Tab) 20 mg PO HS [facility] [place]; Protocol Last Admin: 09/14/23 21:49 Dose: 20 mg Spironolactone (Spironolactone 25 Mg Tab) 25 mg PO DAILY [facility] [place] Last Admin: 09/15/23 07:57 Dose: 25 mg Tamsulosin HCl (Tamsulosin 0.4 Mg Cap.Er.24h) 0.4 mg PO DAILY [facility] [place] Last Admin: 09/15/23 07:57 Dose: 0.4 mg Past medical history to include: Atrial fibrillation, CHF, COPD, DVT, GERD, GI bleed, hypertension, hyperlipidemia, osteomyelitis, pulmonary embolism, obstructive sleep apnea, Coumadin 2021 when only 2022, CHF, right-sided thoracentesis, peripheral neuropathy, colitis, generalized chronic pain, obstructive sleep apnea with CPAP, CAD stage III, pseudoseizures, home oxygen bariatric surgery, gastric sleeve 2013, bipolar, schizoaffective disorder Social history: Patient visit his son and daughter. He has been bedbound for past 4 years. Requires assistance to move. Unable to sit up on his own. Patient smoked for 23 years stopped in 1998. Formerly did abuse alcohol. Stopped in 1997 Physical examination: VITAL SIGNS: 97.6, 69, 18, 149/72, 98% on 3 L GENERAL: Reclining in bed, comfortable EYES: Pupils equal. Conjunctiva normal. HEENT: External appearance of nose and ears normal, oral cavity grossly normal. NECK: JVD unable to assess; masses not palpable. HEART: First and second heart sounds are normal; edema present. LUNGS: Respiratory rate increased; decreased breath sound./Clear ABDOMEN: Soft, nontender, liver spleen not palpable, no masses palpable. PSYCH: [Alert and oriented x3; mood and affect anxious. MUSCULOSKELETAL:No Clubbing/cyanosis;muscles-grossly intact. OA NEUROLOGICAL: Cranial nerves grossly intact; no facial asymmetry, chronically decreased per lower extremity INVESTIGATIONS, reviewed in the clinical context: Urine culture: Pseudomonas. September 14: Potassium 4.1 BUN 38 creatinine 0.5 to 09/12/2023: White count 10.5 hemoglobin 13 platelets 180 sodium 132 potassium 4.1 BUN 43 creatinine 0.47 AST 29 ALT 175 Troponin I less than 0.0123 ProBNP 579 UA: Leukoesterase large. WBC 55. EKG tracing personally reviewed by me-no sinus rhythm. PVCs. Chest x-ray film personally reviewed by me-moderate right pleural effusion. Previous investigations: 2-D echocardiogram [April 2023] - moderately increased left ventricle thickness. EF 50-55%. Moderate pulmonary hypertension. [id number] aortic regurgitation. Moderate mitral regurgitation. Assessment and plan: -Acute on chronic progressive shortness of breath. Multifactorial. COPD , Obesity hypoventilation syndrome. Right pleural effusion: Improving -Right pleural effusion Be followed by pulmonary. Not for thoracentesis. -Acute COPD exacerbation in a prior smoker Atrovent 4 times a day. Decrease Decadron 4 mg. . Nebulized Pulmicort - acute on chronic cor pulmonale exacerbation with edema: Better IV Lasix-DC after today Bumex 1 mg twice a day Fluid restriction added -BPH Flomax 0.4 mg daily -Chronic hypoxic respiratory failure, multifactorial 2 L of oxygen at home -Moderate secondary pulmonary hypertension, multifactorial -Mild to moderate mitral and aortic regurgitation -Essential hypertension Lopressor 25 mg twice a day -Chronic DVT Xarelto -Bipolar disorder Olanzapine. Cymbalta. -Chronic medical debility patient is chronically bedbound. -Chronic bilateral lower extremity venous insufficiency Phil wrap's -Acute UTI from Pseudomonas IV cefepime. Being followed by ID. -GERD Omeprazole -Obesity hypoventilation syndrome suspected. -Obstructive sleep apnea uses CPAP -Morbid obesity BMI 51 Weight loss measures, outpatient -Diabetes mellitus type 2 ozempic IV Lasix.-DC after today. IV antibiotic per ID. Cutback dexamethasone to 4 mg. Discussed with patient. 2000 mL fluid restriction added.
[2023-09-15] MEDS: RIVAROXABAN 20 MG TAB PO SCH (21:13)
[2023-09-15] MEDS: INSULIN ASPART (NovoLOG) 100 UNIT/ML VIAL SQ SCH (21:15)
[2023-09-16 06:11] LABS: Glucose,Whole Blood 113 mg/dL (70-110)
[2023-09-16] MEDS: CEFEPIME 2 GM in SODIUM CHLORIDE 0.9% 100 ML IVPB SCH ×3 (06:24→14:59)
[2023-09-16] MEDS: INSULIN ASPART (NovoLOG) 100 UNIT/ML VIAL SQ SCH ×3 (06:25→17:58)
[2023-09-16] MEDS: PANTOPRAZOLE 40 MG TABLET PO SCH (06:27)
[2023-09-16 07:39] VITALS: BP 116/68; TEMP 97.4
[2023-09-16 07:59] LABS: African American GFR (CKD) >90 (>60 ml/min/1.73 sqM); Blood Urea Nitrogen 43 mg/dL (9-20); Calcium 8.6 mg/dL (8.4-10.2); Chloride 80 mmol/L (98-107); Glucose 115 mg/dL (74-99); Non-African American GFR(CKD) >90 (>60 ml/min/1.73 sqM); Potassium 3.9 mmol/L (3.5-5.1); Sodium 131 mmol/L (137-145)
[2023-09-16 08:06] LABS: Anion Gap 7 mmol/L
[2023-09-16] MEDS: BUMETANIDE 1 MG TAB PO SCH (08:09)
[2023-09-16 08:10] LABS: Carbon Dioxide 44 mmol/L (22-30)
[2023-09-16] MEDS: MAGNESIUM OXIDE 400 MG TAB PO SCH (08:10)
[2023-09-16] MEDS: METOPROLOL TARTRATE 25 MG TAB PO SCH (08:10)
[2023-09-16] MEDS: TAMSULOSIN 0.4 MG CAP.ER.24H PO SCH (08:10)
[2023-09-16] MEDS: SPIRONOLACTONE 25 MG TAB PO SCH (08:10)
[2023-09-16] MEDS: CHOLECALCIFEROL 25 MCG (1000 IU) TABLET PO SCH (08:10)
[2023-09-16] MEDS: POTASSIUM CHLORIDE ER 20 MEQ TAB.ER PO SCH ×2 (08:10→14:59)
[2023-09-16] MEDS: FERROUS SULFATE 325 MG TAB PO SCH (08:10)
[2023-09-16] MEDS: DULoxetine HCL 60 MG CAPSULE.DR PO SCH (08:10)
[2023-09-16] MEDS: OLANZapine 10 MG TAB PO SCH (08:11)
[2023-09-16] MEDS ORDERED: dexAMETHasone 2 MG TAB PO SCH (09:00)
[2023-09-16] MEDS: BUDESONIDE 0.5 MG/2 ML NEBU INHALATION SCH (09:22)
[2023-09-16] MEDS: IPRATROPIUM 0.5 MG/2.5 ML NEBU INHALATION SCH ×3 (09:22→16:38)
[2023-09-16] MEDS: oxyCODONE-APAP 10-325MG 1 EACH TAB PO PRN ×2 (09:43→14:58)
[2023-09-16 11:41] LABS: Glucose,Whole Blood 170 mg/dL (70-110)
[2023-09-16 12:41] VITALS: PULSE 72
--- NOTE | 2023-09-16 12:48 | P.PN ---
Subjective Progress Note Date: 09/16/23 I am seeing this patient in new consultation today 09/13/2023 in the emergency room after he presented late last night for the chief complaint of shortness of breath. Patient is a 62-year-old white male with past medical history significant for chronic hypoxic and hypercapnic respiratory failure, chronic right-sided pleural effusion with prior thoracentesis 4, chronic DVT of the right leg anticoagulated on Xarelto, chronic atrial fibrillation, history of CVA/TIA, diabetes mellitus, GERD, GI bleed, hypertension, hyperlipidemia, obesity, obstructive sleep apnea maintained on Trilogy ventilator at home, among other comorbidities. Patient states that starting yesterday at 7 PM he started experiencing increasing shortness of breath accompanied with heart palpitations and substernal chest pressure. Denies any significant cough, fevers, myalgias, hemoptysis. He does report some increased lower extremity edema and orthopnea. Denies syncopal events. Unrelated, the patient is scheduled for a midline tomorrow. Patient states that his primary care provider, Mark Chanel NP, had noted him to have a positive UTI. Patient does suffer for chronic UTIs and resistant organisms. Patient is currently sitting up in bed, on 3 L/m nasal cannula, in no acute distress. His home ventilator is at bedside. CBC on arrival was unremarkable. No leukocytosis. VBG shows compensated hypercapnia with a pCO2 of 66 and a pH of 7.44. CMP on arrival showed a sodium 132, potassium 4.1, chloride 87, serum bicarb 40, B1 43, creatinine 0.47, glucose 116. Lactic acid level was 0.9. ECG shows normal sinus rhythm with frequent unifocal PVCs. No acute ischemic changes. Troponins negative 3. NT proBNP was not significantly elevated for age at 579. Urinalysis was positive for leukocytes and rare bacteria. Patient is afebrile. He is being admitted to the general medical floor. The patient is seen today 09/14/2023 in follow-up in the emergency department. He is currently resting in bed. Awake and alert in no acute distress. He is maintaining good O2 saturations in the 90s on 2 L/m per nasal cannula. He did have a midline placed yesterday. He remains on cefepime. Urine culture is revealing gram-negative bacilli. Ultrasound of the right chest reveals a 7.5 cm pocket. The patient is stable. No plans for thoracentesis. He is a very difficult patient to turn and sit up for a procedure. He is continued on Bumex and Aldactone. He is also on IV Lasix 40 mg every 12 hours. Anticoagulated wi th Xarelto. The patient is seen today 09/15/2023 in follow-up on the regular medical floor. He is resting comfortably in bed. Awake and alert in no acute distress. He is maintaining good O2 saturations in the upper 90s on 3 L/m per nasal cannula. He is afebrile. Hemodynamically stable. Urine culture is positive for pseudomonas aeruginosa. Glucose 168. He is continued on cefepime. Remains on bronchodilators. Remains on diuretics. Currently in a -1.2 L balance. Anticoagulated with Xarelto. The patient is seen today 09/16/2023 in follow-up on the regular medical floor. He is resting comfortably in bed. Awake and alert in no acute distress. Maintaining good O2 saturations in the 90s on 3 L/m per nasal cannula. Urine culture positive for pseudomonas aeruginosa. Sodium 131. Potassium 3.9. Bicarb 44. BUN 43. Creatinine 0.47. Glucose 115. He remains on cefepime. Anticoagulated with Xarelto. Objective - Vital Signs Vital signs: Vital Signs Temp 97.4 F L 09/16/23 07:20 Pulse 72 09/16/23 12:28 Resp 20 09/16/23 07:20 BP 116/68 09/16/23 07:20 Pulse Ox 99 09/16/23 07:20 FiO2 3 09/16/23 06:02 Intake & Output 09/15/23 09/16/23 09/16/23 18:59 06:59 18:59 Output Total 2099 2325 590 Balance -2099 -025 Weight 199.581 kg Output: Urine 2099 2324 590 Other: Voiding Method Urinal Urinal Urinal - Exam GENERAL EXAM: Alert, obese 62-year-old male, on 3 L nasal cannula. Comfortable in no apparent distress. HEAD: Normocephalic and atraumatic EYES: Normal reaction of pupils, equal size. NOSE: Clear with pink turbinates. THROAT: No erythema or exudates. NECK: No masses, no JVD. CHEST: No chest wall deformity. LUNGS: Equal air entry with no crackles, wheeze, rhonchi. Diminished right basilar lung sounds. CVS: S1 and S2 normal with no audible murmur, regular rhythm. No extra heart sounds ABDOMEN: No hepatosplenomegaly, active bowel sounds, no guarding or rigidity. SPINE: No scoliosis or deformity SKIN: No rashes CENTRAL NERVOUS SYSTEM: No focal deficits, tone is normal in all 4 extremities. EXTREMITIES: Midline in place. There is severe 3+ bilateral lower extremity pitting edema. No clubbing, or cyanosis. Peripheral pulses are intact. - Labs CBC & Chem 7: 09/12/23 21:53 09/16/23 06:15 Labs: Abnormal Lab Results - Last 24 Hours (Table) 09/15/23 09/15/23 09/16/23 Range/Units 16:29 20:36 06:08 Sodium (137-145) mmol/L Chloride (98-107) mmol/L Carbon Dioxide (22-30) mmol/L BUN (9-20) mg/dL Creatinine (0.66-1.25) mg/dL Glucose (74-99) mg/dL POC Glucose (mg/dL) 191 H 137 H 113 H (70-110) mg/dL 09/16/23 09/16/23 Range/Units 06:15 11:40 Sodium 131 L (137-145) mmol/L Chloride 80 L (98-107) mmol/L Carbon Dioxide 44 H* (22-30) mmol/L BUN 43 H (9-20) mg/dL Creatinine 0.47 L (0.66-1.25) mg/dL Glucose 115 H (74-99) mg/dL POC Glucose (mg/dL) 170 H (70-110) mg/dL Microbiology - Last 24 Hours (Table) 09/13/23 01:05 Urine Culture - Final Urine,Voided Pseudomonas aeruginosa Assessment and Plan Assessment: Acute on chronic hypoxemic and hypercapnic respiratory failure secondary to suspected exacerbation of diastolic congestive heart failure. Chest x-ray on arrival shows some mild cardiomegaly with a chronic right sided pleural effu júnior. No focal infiltrates or evidence of pneumonia. NT pro-bnp 579. Remains on diuretics. Recurrent and chronic right pleural effusion, with previous thoracentesis 4 Atypical chest pain, ACS ruled out Urinary tract infection secondary to pseudomonas aeruginosa, currently on cefepime History of frequent UTIs Moderate pulmonary hypertension Obesity hypoventilation syndrome, maintained on home Trilogy ventilator HS Chronic obstructive pulmonary disease, stable History of PE/DVT, anticoagulated on Xarelto History of paroxysmal atrial fibrillation, currently in normal sinus rhythm Morbid obesity with a BMI of 52.2 kg/m History of TIA/CVA Diabetes mellitus type 2 Bilateral peripheral neuropathy Benign essential hypertension Hyperlipidemia Gastroesophageal reflux disease, without esophagitis Ex-smoker History of bipolar and schizoaffective disorder Plan: The patient was seen and evaluated Medications and labs reviewed Continued on cefepime Cleared for discharge from the pulmonary standpoint I have personally seen and examined the patient, performed the documentation and the assessment and plan as written. Number of minutes spent on the visit: 10.
[2023-09-16 16:20] LABS: Glucose,Whole Blood 156 mg/dL (70-110)
--- NOTE | 2023-09-16 22:00 | P.DS ---
Providers Date of admission: 09/13/23 00:08 Expected date of discharge: 09/16/23 Attending physician: Roge Bashir Consults: 09/13/23 00:08 Consult Physician Stat Consulting Provider: [facility] Consult Reason/Comments: CHF/COPD exacerbation Do you want consulting provider notified?: Yes Consult Physician Stat Consulting Provider: Leonides Lazaro Consult Reason/Comments: Hx resistant UTI requiring PICC line Do you want consulting provider notified?: Yes Consult Physician Urgent Consulting Provider: Jay Whittington Consult Reason/Comments: CHF/COPD exacerbation Do you want consulting provider notified?: Yes Primary care physician: Antelmo Crenshaw MD Hospital Course: Chief Complaint: Short of breath This is a 62-year-old patient who follows with visiting physicians Dr. Crenshaw. Extensive medical history. Patient been not able to walk since 2018 has gradually become very weak. Baseline some short of breath for 2 years. chronic pain in multiple joints. Normally has a bowel movement every day. Has control of his bladder. Has chronic lower extremity edema. Home oxygen 2 L. Lives with his son and daughter. August 29: Breathing much better. Phil wrap lower extremity. Patient very keen to go home. Cleared by pulmonary. Discharged on fluid restriction. Phil wrap. Decadron 4 mg day. Can be tapered of outpatient. Questions answered. Patient presented increasing shortness of breath and some palpitation. For about a week. No cough. Some wheezing. No fever no chills. Appetite is fair. 3 bowel movement. Normally does use a urinal. No chest pain. September 14: Some improvement in shortness of breath. IV Lasix. On IV cefepime. Urine culture pending. Being followed by ID. Oral intake good. September 15: Eating well. Will DC IV Lasix after today. Urine culture growing Pseudomonas. IV cefepime. Discussed with patient. September 16: Discharge planning discussed in detail with the patient. Fluid restriction. Discussed with ID. Patient be discharged on cefepime 2 g IV every 8 for 7 days. Questions answered. Case management arranged for discharge. Discussion and discharge planning more than 35 minutes Past medical history to include: Atrial fibrillation, CHF, COPD, DVT, GERD, GI bleed, hypertension, hyperlipidemia, osteomyelitis, pulmonary embolism, obstructive sleep apnea, Coumadin 2021 when only 2022, CHF, right-sided thoracentesis, peripheral neuropathy, colitis, generalized chronic pain, obstructive sleep apnea with CPAP, CAD stage III, pseudoseizures, home oxygen bariatric surgery, gastric sleeve 2013, bipolar, schizoaffective disorder Social history: Patient visit his son and daughter. He has been bedbound for past 4 years. Requires assistance to move. Unable to sit up on his own. Patient smoked for 23 years stopped in 1998. Formerly did abuse alcohol. Stopped in 1997 Physical examination: VITAL SIGNS: 97.4, 79, 20, 11 6 x 68, 99% on 3 L GENERAL: Reclining in bed, comfortable EYES: Pupils equal. Conjunctiva normal. HEENT: External appearance of nose and ears normal, oral cavity grossly normal. NECK: JVD unable to assess; masses not palpable. HEART: First and second heart sounds are normal; edema present. LUNGS: Respiratory rate increased; decreased breath sound./Clear ABDOMEN: Soft, nontender, liver spleen not palpable, no masses palpable. PSYCH: [Alert and oriented x3; mood and affect anxious. MUSCULOSKELETAL:No Clubbing/cyanosis;muscles-grossly intact. OA NEUROLOGICAL: Cranial nerves grossly intact; no facial asymmetry, chronically decreased per lower extremity INVESTIGATIONS, reviewed in the clinical context: Urine culture: Pseudomonas. September 14: Potassium 4.1 BUN 38 creatinine 0.5 to 09/12/2023: White count 10.5 hemoglobin 13 platelets 180 sodium 132 potassium 4.1 BUN 43 creatinine 0.47 AST 29 ALT 175 Troponin I less than 0.0123 ProBNP 579 UA: Leukoesterase large. WBC 55. EKG tracing personally reviewed by me-no sinus rhythm. PVCs. Chest x-ray film personally reviewed by me-moderate right pleural effusion. Previous investigations: 2-D echocardiogram [April 2023] - moderately increased left ventricle thickness. EF 50-55%. Moderate pulmonary hypertension. [id number] aortic regurgitation. Moderate mitral regurgitation. Assessment and plan: -Acute on chronic progressive shortness of breath. Multifactorial. COPD , Obesity hypoventilation syndrome. Right pleural effusion: Improving -Right pleural effusion Seen by by pulmonary. Not for thoracentesis. -Acute COPD exacerbation in a prior smoker: Better Atrovent 4 times a day. . Nebulized Pulmicort Discharged on prednisone taper - acute on chronic cor pulmonale exacerbation with edema: Better IV Lasix-DC Bumex 1 mg twice a day Fluid restriction added -BPH Flomax 0.4 mg daily -Chronic hypoxic respiratory failure, multifactorial 2-3 L of oxygen at home -Moderate secondary pulmonary hypertension, multifactorial -Mild to moderate mitral and aortic regurgitation -Essential hypertension Lopressor 25 mg twice a day -Chronic DVT Xarelto -Bipolar disorder Olanzapine. Cymbalta. -Chronic medical debility patient is chronically bedbound. -Chronic bilateral lower extremity venous insufficiency Phil wrap's -Acute UTI from Pseudomonas IV cefepime. Being followed by ID. Discharged on;cefepime 2 g IV every 8 for 7 days. -GERD Omeprazole -Obesity hypoventilation syndrome suspected. -Obstructive sleep apnea uses CPAP -Morbid obesity BMI 51 Weight loss measures, outpatient -Diabetes mellitus type 2 ozempic Disposition: Home Labs: CBC BMP: One-week Plan - Discharge Summary New Discharge Prescriptions: New predniSONE 10 mg PO DAILY #30 tab Continue Rivaroxaban [Xarelto] 20 mg PO HS OLANZapine 20 mg PO HS Omeprazole 20 mg PO DAILY DULoxetine HCL [Cymbalta] 60 mg PO DAILY Tamsulosin HCl [Flomax] 0.4 mg PO DAILY Albuterol Sulfate [Ventolin HFA] 1 - 2 puff INHALATION RT-Q6H PRN PRN Reason: Shortness Of Breath Cholecalciferol [Vitamin D3 (25 Mcg = 1000 Iu)] 25 mcg PO DAILY Metoprolol Tartrate [Lopressor] 25 mg PO BID Spironolactone [Aldactone] 25 mg PO DAILY Potassium Chloride ER [K-Dur 20] 20 meq PO TID Budesonide [Pulmicort] 0.5 mg INHALATION RT-BID Magnesium Oxide [Magox 400] 400 mg PO DAILY Naloxone HCl 1 spray NASAL DIRECTED PRN PRN Reason: Opioid Reversal Tiotropium 2.5 Mcg/Puff [Spiriva Respimat 2.5 Mcg] 2 puff INHALATION RT-DAILY oxyCODONE-APAP 10-325MG [Percocet 10-325 mg] 1 tab PO Q6H PRN PRN Reason: Pain Ipratropium-Albuterol Nebulize [Duoneb 0.5 mg-3 mg/3 ml Soln] 3 ml INHALATION RT-QID Docusate [Colace] 100 mg PO DAILY PRN PRN Reason: Constipation Ferrous Sulfate [Iron] 325 mg PO DAILY Nystatin 100,000 Unit/ml Susp [Mycostatin Oral Susp] 10 ml PO QID PRN PRN Reason: thrush Semaglutide [Ozempic] 0.25 mg SQ MO Relaxium Sleep Supplement 4 capsule PO HS Bumetanide [BUMEX] 1 mg PO BID Discontinued dexAMETHasone ORAL [Hexadrol] 6 mg PO DAILY Discharge Medication List Rivaroxaban [Xarelto] 20 mg PO HS 07/14/19 [History] OLANZapine 20 mg PO HS 10/29/20 [History] Omeprazole 20 mg PO DAILY 03/27/21 [History] DULoxetine HCL [Cymbalta] 60 mg PO DAILY 09/05/21 [History] Albuterol Sulfate [Ventolin HFA] 1 - 2 puff INHALATION RT-Q6H PRN 10/28/21 [History] Tamsulosin HCl [Flomax] 0.4 mg PO DAILY 10/28/21 [History] Tiotropium 2.5 Mcg/Puff [Spiriva Respimat 2.5 Mcg] 2 puff INHALATION RT-DAILY 10/28/21 [History] Cholecalciferol [Vitamin D3 (25 Mcg = 1000 Iu)] 25 mcg PO DAILY 09/09/22 [History] Metoprolol Tartrate [Lopressor] 25 mg PO BID 09/09/22 [History] Spironolactone [Aldactone] 25 mg PO DAILY 09/09/22 [History] Budesonide [Pulmicort] 0.5 mg INHALATION RT-BID 03/17/23 [History] Docusate [Colace] 100 mg PO DAILY PRN 03/17/23 [History] Ipratropium-Albuterol Nebulize [Duoneb 0.5 mg-3 mg/3 ml Soln] 3 ml INHALATION RT-QID 03/17/23 [History] Potassium Chloride ER [K-Dur 20] 20 meq PO TID 03/17/23 [History] oxyCODONE-APAP 10-325MG [Percocet 10-325 mg] 1 tab PO Q6H PRN 03/17/23 [History] Ferrous Sulfate [Iron] 325 mg PO DAILY 05/21/23 [History] Magnesium Oxide [Magox 400] 400 mg PO DAILY 08/27/23 [History] Nystatin 100,000 Unit/ml Susp [Mycostatin Oral Susp] 10 ml PO QID PRN 08/27/23 [History] Relaxium Sleep Supplement 4 capsule PO HS 08/27/23 [History] Semaglutide [Ozempic] 0.25 mg SQ MO 08/27/23 [History] Naloxone HCl 1 spray NASAL DIRECTED PRN 09/10/23 [History] Bumetanide [BUMEX] 1 mg PO BID 09/13/23 [History] predniSONE 10 mg PO DAILY #30 tab 09/16/23 [Rx] Follow up Appointment(s)/Referral(s): Antelmo Crenshaw MD [Primary Care Provider] - 09/17/23 (Office stated they will call patient with a time for appointment later today.) [facility], [NON-STAFF] - As Needed Patient Instructions/Handouts: Heart Failure (DC), Cellulitis (GEN), COPD (Chronic Obstructive Pulmonary Disease) (DC) Activity/Diet/Wound Care/Special Instructions: IV antibiotic, Cefepime, ordered through [facility]: #[phone] fluid restrict 1800 cc/day antibiotics per dr lazaro Discharge Disposition: HOME SELF-CARE
== END 2023-09-16 19:19 | disposition home or self-care (01) | DRG 291 ==
LOC: EC 19:07 → 4SSUR 09-13 00:08
PROVIDERS: ADMIT Hospitalist; ATTEND Hospitalist
PROC: 05HD33Z Insertion of Infusion Device into Right Cephalic Vein, Percutaneous Approach (ICD-10-PCS; principal; 2023-09-14)
DX: I13.0 Hypertensive heart and chronic kidney disease with heart failure and stage 1 through stage 4 chronic kidney disease, or unspecified chronic kidney disease (principal); I26.09 Other pulmonary embolism with acute cor pulmonale; J96.21 Acute and chronic respiratory failure with hypoxia; J96.22 Acute and chronic respiratory failure with hypercapnia; I50.33 Acute on chronic diastolic (congestive) heart failure; I82.501 Chronic embolism and thrombosis of unspecified deep veins of right lower extremity; E66.2 Morbid (severe) obesity with alveolar hypoventilation; J44.1 Chronic obstructive pulmonary disease with (acute) exacerbation; Z68.43 Body mass index [BMI] 50.0-59.9, adult; I48.20 Chronic atrial fibrillation, unspecified; J91.8 Pleural effusion in other conditions classified elsewhere; E87.1 Hypo-osmolality and hyponatremia; N39.0 Urinary tract infection, site not specified; I27.29 Other secondary pulmonary hypertension; F25.9 Schizoaffective disorder, unspecified; R56.9 Unspecified convulsions; E11.42 Type 2 diabetes mellitus with diabetic polyneuropathy; F31.9 Bipolar disorder, unspecified; N18.30 Chronic kidney disease, stage 3 unspecified; I08.0 Rheumatic disorders of both mitral and aortic valves; F10.11 Alcohol abuse, in remission; N40.0 Benign prostatic hyperplasia without lower urinary tract symptoms; Z79.01 Long term (current) use of anticoagulants; Z99.81 Dependence on supplemental oxygen; Z82.49 Family history of ischemic heart disease and other diseases of the circulatory system; I87.2 Venous insufficiency (chronic) (peripheral); E78.5 Hyperlipidemia, unspecified; G89.29 Other chronic pain; M25.59 Pain in other specified joint; B96.5 Pseudomonas (aeruginosa) (mallei) (pseudomallei) as the cause of diseases classified elsewhere; R07.89 Other chest pain; K21.9 Gastro-esophageal reflux disease without esophagitis; R53.81 Other malaise; I45.10 Unspecified right bundle-branch block; B96.89 Other specified bacterial agents as the cause of diseases classified elsewhere; I25.10 Atherosclerotic heart disease of native coronary artery without angina pectoris; M19.90 Unspecified osteoarthritis, unspecified site; Z96.641 Presence of right artificial hip joint; Z87.891 Personal history of nicotine dependence; Z74.01 Bed confinement status; Z79.85 Long-term (current) use of injectable non-insulin antidiabetic drugs; Z86.16 Personal history of COVID-19; Z85.828 Personal history of other malignant neoplasm of skin; Z86.14 Personal history of Methicillin resistant Staphylococcus aureus infection; Z98.84 Bariatric surgery status; Z79.899 Other long term (current) drug therapy; Z79.51 Long term (current) use of inhaled steroids; Z88.0 Allergy status to penicillin; Z86.711 Personal history of pulmonary embolism; Z86.73 Personal history of transient ischemic attack (TIA), and cerebral infarction without residual deficits; Z88.5 Allergy status to narcotic agent; Z88.8 Allergy status to other drugs, medicaments and biological substances; Z88.1 Allergy status to other antibiotic agents; Z87.440 Personal history of urinary (tract) infections; Z80.1 Family history of malignant neoplasm of trachea, bronchus and lung; E11.22 Type 2 diabetes mellitus with diabetic chronic kidney disease
CPT/HCPCS: 36410; 36415; 71046; 76604; 76937; 80048; 80053; 81001; 82803; 83605; 83880; 84145; 84484; 85025; 85610; 85730; 87077; 87086; 87186; 93005; 94640; 94760; 96374; 96375; 99285

== ENCOUNTER 2023-09-25 22:45 | Inpatient (IN) | payer OTHER, MEDICARE, BC ==
--- NOTE | 2023-09-25 23:33 | ED ---
General Adult HPI - General Stated complaint: Weakness Source: patient, EMS Mode of arrival: EMS Limitations: no limitations - History of Present Illness Initial comments: 62-year-old male with a past Medical history significant for chronic shortness of breath, multifactorial, COPD, obesity hypoventilation syndrome, and cor pulmonale with recent discharge on 09/16/23 after admission for chronic shortnes s of breath with right pleural effusion, COPD exacerbation, and UTI treated with IV cefepime. Patient reports after discharge had significant communication difficulties between infectious disease and his PCP and therefore was not on IV antibiotics as initially prescribed however was able to situate this and started IV as well as 2 days ago. However, patient reports increased shortness of breath and generalized fatigue. Also notes intermittent episodes of chest pain affecting the left side of his chest which lasts approximately 5 minutes. Pain does not radiate. No abdominal pain. No other complaints. - Related Data Home Medications Medication Instructions Recorded Confirmed Rivaroxaban [Xarelto] 20 mg PO HS 07/14/19 09/26/23 OLANZapine 20 mg PO HS 10/29/20 09/26/23 Omeprazole 20 mg PO DAILY 03/27/21 09/26/23 DULoxetine HCL [Cymbalta] 60 mg PO DAILY 09/05/21 09/26/23 Albuterol Sulfate [Ventolin HFA] 1 - 2 puff INHALATION RT-Q6H PRN 10/28/21 09/26/23 Tamsulosin HCl [Flomax] 0.4 mg PO DAILY 10/28/21 09/26/23 Tiotropium 2.5 Mcg/Puff [Spiriva 2 puff INHALATION RT-DAILY 10/28/21 09/26/23 Respimat 2.5 Mcg] Cholecalciferol [Vitamin D3 (25 25 mcg PO DAILY 09/09/22 09/26/23 Mcg = 1000 Iu)] Spironolactone [Aldactone] 25 mg PO DAILY 09/09/22 09/26/23 Budesonide [Pulmicort] 0.5 mg INHALATION RT-BID 03/17/23 09/26/23 Docusate [Colace] 100 mg PO DAILY PRN 03/17/23 09/26/23 Ipratropium-Albuterol Nebulize 3 ml INHALATION RT-QID 03/17/23 09/26/23 [Duoneb 0.5 mg-3 mg/3 ml Soln] Potassium Chloride ER [K-Dur 20] 20 meq PO TID 03/17/23 09/26/23 oxyCODONE-APAP 10-325MG [Percocet 1 tab PO Q6H PRN 03/17/23 09/26/23 10-325 mg] Ferrous Sulfate [Iron] 325 mg PO DAILY 05/21/23 09/26/23 Magnesium Oxide [Magox 400] 400 mg PO DAILY 08/27/23 09/26/23 Nystatin 100,000 Unit/ml Susp 10 ml PO QID PRN 08/27/23 09/26/23 [Mycostatin Oral Susp] Relaxium Sleep Supplement 4 capsule PO HS 08/27/23 09/26/23 Semaglutide [Ozempic] 0.25 mg SQ MO 08/27/23 09/26/23 Naloxone HCl 1 spray NASAL DIRECTED PRN 09/10/23 09/26/23 Previous Rx's Medication Instructions Recorded Aspirin 81 mg PO DAILY tab 09/30/23 Bumetanide [BUMEX] 2 mg PO BID #60 tablet 09/30/23 Cephalexin [Keflex] 500 mg PO Q6HR 7 Days #28 cap 09/30/23 Metoprolol Tartrate [Lopressor] 25 mg PO TID #0 09/30/23 acetaZOLAMIDE [Diamox] 250 mg PO BID #60 tab 09/30/23 Allergies Allergy/AdvReac Type Severity Reaction Status Date / Time codeine Allergy Severe Swelling Verified 09/26/23 12:01 OF THROAT WITH COUGH SYRUP chlorpheniramine Allergy Unknown Verified 09/26/23 12:01 febuxostat [From Uloric] Allergy Unknown Verified 09/26/23 12:01 phenylephrine Allergy Unknown Verified 09/26/23 12:01 piperacillin sodium Allergy Unknown Verified 09/26/23 12:01 [From Zosyn] tazobactam sodium Allergy Unknown Verified 09/26/23 12:01 [From Zosyn] allopurinol AdvReac NAUSEA, Verified 09/26/23 12:01 RACING HEART buspirone [From BuSpar] AdvReac Rapid Verified 09/26/23 12:01 Heart Rate sulfamethoxazole AdvReac see Verified 09/26/23 12:01 [From Bactrim] comments trimethoprim [From Bactrim] AdvReac see Verified 09/26/23 12:01 comments Review of Systems ROS Statement: Those systems with pertinent positive or pertinent negative responses have been documented in the HPI. ROS Other: All systems not noted in ROS Statement are negative. Past Medical History Past Medical History: Atrial Fibrillation, Asthma, Cancer, Heart Failure, COPD, Deep Vein Thrombosis (DVT), GERD/Reflux, GI Bleed, Hyperlipidemia, Hypertension, Osteoarthritis (OA), Pneumonia, Pulmonary Embolus (PE), Renal Disease, Respiratory Disorder, Sleep Apnea/CPAP/BIPAP Additional Past Medical History / Comment(s): Pt hospitalized [facility] on 08/27/23 acute on chronic SOB, +Covid -05-20 and early 2022, hx chronic CHF/abnormal ECHO-see report/paroxysmal afib/bilat pleural effusions w/ R sided thorace ntesis. BLE neuropathy, colitis, chronic generalized pain, fluid retention, bedbound since 2018, hiatal hernia, DDD, scoliosis, ALEXIS w/ CPAP, CKD stage III, pseudoseizures - none in 1 year, basal cell skin cancer, BLE edema History of Any Multi-Drug Resistant Organisms: MRSA Date of last positivie culture/infection: 05/22/23 MDRO Source:: Sputum Past Surgical History: Appendectomy, Bariatric Surgery, Cholecystectomy, Hernia Repair, Joint Replacement, Orthopedic Surgery Additional Past Surgical History / Comment(s): Gastric sleeve 2013, L inguinal hernia repair, R elbow surgery x2, total R hip arthroplasty, L knee arthroscopy/ACL surgery, R ankle ORIF, EGD, colonoscopy, basal cell skin cancer exc face, surgery for varicele,lt knee arthroscopy x2. Past Anesthesia/Blood Transfusion Reactions: Previous Problems w/ Anesthesia Additional Past Anesthesia/Blood Transfusion Reaction / Comment(s): STATES WAS TOLD HE WAS A DIFFICULT INTUBATION WITH GASTRIC SLEEVE SURGERY, no problems with gallbladder surgery after gastric sleeve surgery in Aug 2021 Past Psychological History: Anxiety, Bipolar, Depression, Panic Disorder, Schizoaffective Disorder Smoking Status: Former smoker - Past Family History Father Family Medical History: Cancer Additional Family Medical History / Comment(s): LUNG CA Mother Family Medical History: Coronary Artery Disease (CAD) Additional Family Medical History / Comment(s): Mother of an infection. General Exam Limitations: physical limitation (bed bound) General appearance: alert, obese Respiratory exam: Present: other (Poor Inspiratory effort) Cardiovascular Exam: Present: tachycardia GI/Abdominal exam: Present: soft (No tenderness to palpation. No rebound guarding or rigidity.) Neurological exam: Present: alert, oriented X3 Skin exam: Present: warm, dry Course Vital Signs 09/25/23 09/26/23 09/26/23 22:54 00:38 00:57 Temperature 98.7 F Pulse Rate 110 H 110 H 98 Respiratory 18 Rate Blood Pressure 123/69 O2 Sat by Pulse 94 L Oximetry 09/26/23 09/26/23 09/26/23 01:00 02:32 02:45 Temperature 98.6 F 97.8 F Pulse Rate 107 H 98 Respiratory 16 20 20 Rate Blood Pressure 125/57 127/69 O2 Sat by Pulse 96 97 98 Oximetry Medical Decision Making - Medical Decision Making Was pt. sent in by a medical professional or institution (, PA, APPLICATIONS TESTER, urgent care, hospital, or penitentiary...) When possible be specific @ -No Did you speak to anyone other than the patient for history (EMS, parent, family, police, friend...)? What history was obtained from this source @ -No Did you review nursing and triage notes (agree or disagree)? Why? @ -I reviewed and agree with nursing and triage notes Were old charts reviewed (outside hosp., previous admission, EMS record, old EKG, old radiological studies, urgent care reports/EKG's, penitentiary records)? Report findings @ -Prior admission and discharge reviewed. Further details please see HPI. Differential Diagnosis (chest pain, altered mental status, abdominal pain women, abdominal pain men, vaginal bleeding, weakness, fever, dyspnea, syncope, headache, dizziness, GI bleed, back pain, seizure, CVA, palpatations, mental health, musculoskeletal)? @ -Differential Dyspnea: Coronary syndrome, arrhythmia, tamponade, asthma, COPD, pulmonary embolism, pneumonia, pneumothorax, pulmonary effusion, anaphylaxis, diabetic ketoacidosis, flailed chest, pulmonary contusion, diaphragmatic rupture, anemia, neuromuscular, this is not meant to be an all-inclusive list. Differential Chest Pain: Stable Angina, Unstable Angina, STEMI, NSTEMI Aortic Dissection, Pneumothorax, Musculoskeletal, Esophageal Spasm GERD, Cholecystitis, Pancreatitis, Zoster, this is not meant to be an all-inclusive list. EKG interpreted by me (3pts min.). @ -EKG shows a sinus tach with nonspecific changes notably in V2 and V3 @105 beats for minute, SC 199, QRS 123, QT/QTc 349/410. X-rays interpreted by me (1pt min.). @ -X-ray interpreted by me showing right pleural effusion. CT interpreted by me (1pt min.). @ -None done U/S interpreted by me (1pt. min.). @ -None done What testing was considered but not performed or refused? (CT, X-rays, U/S, labs)? Why? @ -None What meds were considered but not given or refused? Why? @ -None Did you discuss the management of the patient with other professionals (professionals i.e. , PA, APPLICATIONS TESTER, lab, RT, psych nurse, social security assessor, bible reader, teacher, hospital chief financial officer, home health care case manager)? Give summary @ -Case discussed with Dr. Gaston, who accepts admission Was smoking cessation discussed for >3mins.? @ -No Was critical care preformed (if so, how long)? @ -Yes, 20 minuts Were there social determinants of health that impacted care today? How? (Homelessness, low income, unemployed, alcoholism, drug addiction, transportation, low edu. Level, literacy, decrease access to med. care, nursing home, rehab)? @ -No Was there de-escalation of care discussed even if they declined (Discuss DNR or withdrawal of care, Hospice)? DNR status @ -No What co-morbidities impacted this encounter? (DM, HTN, Smoking, COPD, CAD, Cancer, CVA, ARF, Chemo, Hep., AIDS, mental health diagnosis, sleep apnea, morbid obesity)? @ -None Was patient admitted / discharged? Hospital course, mention meds given and route, prescriptions, significant lab abnormalities, going to OR and other pertinent info. @ -Admission 42-year-old male with past medical history significant for chronic respiratory failure, multifactorial, COPD, CHF, and recent treatment for UTI presenting to the ED due to increased shortness of breath and chest pain. Laboratory studies show an elevated white blood cell count of 11.6, venous blood gas shows pH 7.48, pCO2 64, HCO3 48, when necessary elevated 45, creatinine 0.47, and troponin elevated at 0.070. Patient will be admitted with consult to cardiology, pulmonology, infectious disease. Patient started on Lovenox per attending Dr. Godwin. Care discussed with patient who is in agreement. Undiagnosed new problem with uncertain prognosis? @ -No Drug Therapy requiring intensive monitoring for toxicity (Heparin, Nitro, Insulin, Cardizem)? @ -No Were any procedures done? @ -No Diagnosis/symptom? @ -NSTEMI, dyspnea Acute, or Chronic, or Acute on Chronic? @ -Acute Uncomplicated (without systemic symptoms) or Complicated (systemic symptoms)? @ -Complicated Side effects of treatment? @ -No Exacerbation, Progression, or Severe Exacerbation? @ -No Poses a threat to life or bodily function? How? (Chest pain, [place], [place], pneumonia, PE, COPD, DKA, ARF, appy, cholecystitis, CVA, Diverticulitis, Homicidal, Suicidal, threat to staff... and all critical care pts) @ -Yes - Lab Data Result diagrams: 09/27/23 06:47 09/30/23 08:16 Lab Results 09/25/23 09/25/23 09/25/23 Range/Units 23:33 23:33 23:33 WBC 11.6 H (3.8-10.6) k/uL RBC 4.15 L (4.30-5.90) m/uL Hgb 12.6 L (13.0-17.5) gm/dL Hct 37.8 L (39.0-53.0) % MCV 91.1 (80.0-100.0) fL MCH 30.4 (25.0-35.0) pg MCHC 33.4 (31.0-37.0) g/dL RDW 16.1 H (11.5-15.5) % Plt Count 188 (150-450) k/uL MPV 7.2 Neutrophils % 90 % Lymphocytes % 5 % Monocytes % 3 % Eosinophils % 1 % Basophils % 0 % Neutrophils # 10.4 H (1.3-7.7) k/uL Lymphocytes # 0.6 L (1.0-4.8) k/uL Monocytes # 0.4 (0-1.0) k/uL Eosinophils # 0.1 (0-0.7) k/uL Basophils # 0.0 (0-0.2) k/uL Anisocytosis Slight PT 12.1 (10.0-12.5) sec INR 1.1 (<1.2) APTT 29.2 (22.0-30.0) sec VBG pH (7.31-7.41) VBG pCO2 (37-51) mmHg VBG HCO3 (24-28) mmol/L Sodium 134 L (137-145) mmol/L Potassium 3.7 (3.5-5.1) mmol/L Chloride 85 L (98-107) mmol/L Carbon Dioxide 39 H (22-30) mmol/L Anion Gap 10 mmol/L BUN 45 H (9-20) mg/dL Creatinine 0.47 L (0.66-1.25) mg/dL Est GFR (CKD-EPI)AfAm >90 (>60 ml/min/1.73 sqM) Est GFR (CKD-EPI)NonAf >90 (>60 ml/min/1.73 sqM) Glucose 153 H (74-99) mg/dL Calcium 9.2 (8.4-10.2) mg/dL Magnesium 1.9 (1.6-2.3) mg/dL Total Bilirubin 1.4 H (0.2-1.3) mg/dL AST 192 H (17-59) U/L ALT 256 H (4-49) U/L Alkaline Phosphatase 319 H (38-126) U/L Troponin I (0.000-0.034) ng/mL NT-Pro-B Natriuret Pep 474 pg/mL Total Protein 5.5 L (6.3-8.2) g/dL Albumin 3.0 L (3.5-5.0) g/dL 09/25/23 09/25/23 Range/Units 23:33 23:36 WBC (3.8-10.6) k/uL RBC (4.30-5.90) m/uL Hgb (13.0-17.5) gm/dL Hct (39.0-53.0) % MCV (80.0-100.0) fL MCH (25.0-35.0) pg MCHC (31.0-37.0) g/dL RDW (11.5-15.5) % Plt Count (150-450) k/uL MPV Neutrophils % % Lymphocytes % % Monocytes % % Eosinophils % % Basophils % % Neutrophils # (1.3-7.7) k/uL Lymphocytes # (1.0-4.8) k/uL Monocytes # (0-1.0) k/uL Eosinophils # (0-0.7) k/uL Basophils # (0-0.2) k/uL Anisocytosis PT (10.0-12.5) sec INR (<1.2) APTT (22.0-30.0) sec VBG pH 7.48 H (7.31-7.41) VBG pCO2 64 H (37-51) mmHg VBG HCO3 48 H (24-28) mmol/L Sodium (137-145) mmol/L Potassium (3.5-5.1) mmol/L Chloride (98-107) mmol/L Carbon Dioxide (22-30) mmol/L Anion Gap mmol/L BUN (9-20) mg/dL Creatinine (0.66-1.25) mg/dL Est GFR (CKD-EPI)AfAm (>60 ml/min/1.73 sqM) Est GFR (CKD-EPI)NonAf (>60 ml/min/1.73 sqM) Glucose (74-99) mg/dL Calcium (8.4-10.2) mg/dL Magnesium (1.6-2.3) mg/dL Total Bilirubin (0.2-1.3) mg/dL AST (17-59) U/L ALT (4-49) U/L Alkaline Phosphatase (38-126) U/L Troponin I 0.070 H* (0.000-0.034) ng/mL NT-Pro-B Natriuret Pep pg/mL Total Protein (6.3-8.2) g/dL Albumin (3.5-5.0) g/dL Disposition Clinical Impression: Chest pain Disposition: ADMITTED IP TO THIS HOSP
[2023-09-25] MEDS ORDERED: ASPIRIN 81 MG PO STA (23:44)
[2023-09-25] MEDS ORDERED: NITROGLYCERIN SL TABS 0.4 MG TAB SUBLINGUAL STA (23:45)
[2023-09-25 23:46] LABS: VBG PH 7.48 (7.31-7.41)
[2023-09-25 23:47] LABS: Anisocytosis Slight; Basophils % (A) 0 %; Eosinophils # (A) 0.1 k/uL (0-0.7); Eosinophils % (A) 1 %; HCT 37.8 % (39.0-53.0); HGB 12.6 gm/dL (13.0-17.5); Lymphocytes # (A) 0.6 k/uL (1.0-4.8); Lymphocytes % (A) 5 %; MCH 30.4 pg (25.0-35.0); MCHC 33.4 g/dL (31.0-37.0); MCV 91.1 fL (80.0-100.0); Mean Platelet Volume 7.2; Monocytes # (A) 0.4 k/uL (0-1.0); Monocytes % (A) 3 %; Neutrophils # (A) 10.4 k/uL (1.3-7.7); Neutrophils % (A) 90 %; Platelet Count 188 k/uL (150-450); RBC 4.15 m/uL (4.30-5.90); RDW 16.1 % (11.5-15.5); WBC 11.6 k/uL (3.8-10.6)
[2023-09-26 00:12] LABS: ALT 256 U/L (4-49); AST 192 U/L (17-59); African American GFR (CKD) >90 (>60 ml/min/1.73 sqM); Alkaline Phosphatase 319 U/L (38-126); Blood Urea Nitrogen 45 mg/dL (9-20); Calcium 9.2 mg/dL (8.4-10.2); Chloride 85 mmol/L (98-107); Glucose 153 mg/dL (74-99); Magnesium 1.9 mg/dL (1.6-2.3); Non-African American GFR(CKD) >90 (>60 ml/min/1.73 sqM); Potassium 3.7 mmol/L (3.5-5.1); Sodium 134 mmol/L (137-145); Total Bilirubin 1.4 mg/dL (0.2-1.3); Total Protein 5.5 g/dL (6.3-8.2)
[2023-09-26] MEDS ORDERED: ALBUTEROL NEBULIZED 2.5 MG/3 ML INHALATION STA (00:17)
[2023-09-26 00:18] LABS: Anion Gap 10 mmol/L; Carbon Dioxide 39 mmol/L (22-30)
[2023-09-26 00:21] LABS: NT-Pro-B-Type Natriuretic Pept 474 pg/mL
[2023-09-26 00:35] LABS: INR 1.1 (<1.2); Partial Thromboplastin Time 29.2 sec (22.0-30.0); Prothrombin Time 12.1 sec (10.0-12.5)
[2023-09-26] MEDS ORDERED: ENOXAPARIN 100 MG/ML SYRINGE SQ SCH (01:00)
[2023-09-26] MEDS ORDERED: ONDANSETRON 4 MG/2 ML VIAL IVP PRN (01:01)
[2023-09-26] MEDS ORDERED: NALOXONE 0.4 MG/ML 1 ML VIAL IV PRN (01:01)
[2023-09-26] MEDS ORDERED: SODIUM CHLORIDE 0.9% 1,000 ML IV SCH (01:15)
--- NOTE | 2023-09-26 02:08 | XR ---
EXAM: XR Chest, 2 Views CLINICAL HISTORY: ITS.REASON XR Reason: Chest Pain TECHNIQUE: Frontal and lateral views of the chest. COMPARISON: 09/12/2023. FINDINGS: Lungs: Prominence of central pulmonary vasculature. Interstitial prominence. Probable subsegmental atelectasis at the right lung base. Pleural space: Moderate right pleural effusion, unchanged from the previous study. No pneumothorax. Heart: There is cardiomegaly. Mediastinum: Unremarkable. Bones/joints: Unremarkable. IMPRESSION: 1. No significant change from the previous study. 2. Cardiomegaly. 3. Moderate right pleural effusion.
[2023-09-26] MEDS ORDERED: NITROGLYCERIN SL TABS 0.4 MG TAB SUBLINGUAL PRN (04:28)
[2023-09-26] MEDS ORDERED: HEPARIN SODIUM 1,000 UN/ML (10ML VL) IV PRN (04:33)
[2023-09-26] MEDS ORDERED: HEPARIN SODIUM 1,000 UN/ML (10ML VL) IV ONE (04:33)
[2023-09-26 04:37] LABS: Appearance,Urine Clear (Clear); Bilirubin,Urine Negative (Negative); Blood,Urine Trace (Negative); Color,Urine Yellow; Glucose,Urine (UA) Negative (Negative); Hyaline Casts,Urine 11 /lpf (0-2); Ketones,Urine Negative (Negative); Leukocyte Esterase,Urine Negative (Negative); Mucus,Urine Rare /hpf; Nitrite,Urine Negative (Negative); PH, Urine 5.5 (5.0-8.0); Protein,Urine 1+ (Negative); RBC,Urine 9 /hpf (0-5); Squamous Epithelial Cell,Urine <1 /hpf (0-4); Urobilinogen,Urine <2.0 mg/dL (<2.0); WBC,Urine 1 /hpf (0-5)
[2023-09-26] MEDS ORDERED: DEXTROSE 50% SYRINGE 50 ML IVP PRN ×2 (04:44)
[2023-09-26] MEDS ORDERED: HEPARIN SOD,PORK IN 0.45% NACL 25,000 UNIT in 0.45% NACL 1 250ML.BAG IV SCH (04:45)
--- NOTE | 2023-09-26 05:01 | P.HPIM ---
History of Present Illness H&P Date: 09/26/23 Chief Complaint: chest pain 62 year old male with complex past medical history he is coming in for chest pain and shortness of breath increase from his baseline. he was recently hospitalized and discharged on 09/16 where he was treated for multifactorial SOB (COPD , CHF) and found to have UTI pseudomonus and discharge on cefepime 2 gm IVPB q8hr for 1 week however, he could not secure the medications until 2 days ago. this time , he reports sudden onset chest pain , he is bed ridden, described and pressure like across his chest and radiates to his jaw, he claims that he had couple episodes that would last 5 minutes, but with worsening shortness of breath that has been getting worse, and feels weaker than usual, and decided to come in for evaluation . no report of fever, chills, sore throat, muscle aches, sick contacts, GI bleed, patient does not have vidales cath and claims he has been urinating with no difficulties. patient has not walked since 2019 and has chronic leg edema bilaterally and weeping edema from his left leg. he is short of breath all the time , and uses home oxygen 2 L . he is known to have moderate size right sided pleural effusion , that has not changed since his last hospital stay , which was evaluated by pulmonary service and no recommendations made for thoracentesis at that time . upon further workup in the ED , heis found to have elevated trops , and admitted for cardiac workup to rule out ACS PMHX afib on xarelto , CHF , COPD on home oxygen , h/o DVT and PE on xarelto , GERD , h/o GI bleed, hypertension , hyperlipidemia , ALEXIS, DM review of systems Pertinent positives as noted in HPI. All other systems were reviewed and are negative on exam Constitutional: No acute distress, cooperative Eyes: Anicteric sclerae, moist conjunctiva, Pupils equal round reactive to light ENMT: NC/AT Oropharynx clear, no erythema, or exudates Neck: Supple, no masses, or JVD No carotid bruits No thyromegaly Lungs: Diminished breath sounds overall with decreased breath sounds right lower lung Normal respiratory effort, no accessory muscle use Cardiovascular: Heart regular in rate and rhythm, No murmurs, gallops, or rubs +3 peripheral bilateral leg edema Abdominal: Soft Nontender, no guarding, rebound or rigidity Abdomen moving with respiration Normoactive bowel sounds No hepatomegaly, No splenomegaly No palpable mass No abdominal wall hernia noted Extremities: No digital cyanosis positive clubbing Pedal pulses weak symmetrical , capillary refill immediate Radial pulses intact and symmetrical No calf tenderness Psychiatric: Alert and oriented to person, place and time Neuro Muscles Strength 2/5 in bilateral lower extremities and 4/5 in bilateral upper extremities Sensation to light touch grossly present throughout Cranial nerves II-XII grossly intact Lymphatics: no palpable cervical or supraclavicular lymph nodes Past Medical History Past Medical History: Atrial Fibrillation, Asthma, Cancer, Heart Failure, COPD, Deep Vein Thrombosis (DVT), GERD/Reflux, GI Bleed, Hyperlipidemia, Hypertension, Osteoarthritis (OA), Pneumonia, Pulmonary Embolus (PE), Renal Disease, Respiratory Disorder, Sleep Apnea/CPAP/BIPAP Additional Past Medical History / Comment(s): Pt hospitalized [facility] on 08/27/23 acute on chronic SOB, +Covid 1-05-20 and early 2022, hx chronic CHF/abnormal ECHO-see report/paroxysmal afib/bilat pleural effusions w/ R sided thoracentesis. BLE neuropathy, colitis, chronic generalized pain, fluid retention, bedbound since 2019, hiatal hernia, DDD, scoliosis, ALEXIS w/ CPAP, CKD stage III, pseudoseizures - none in 1 year, basal cell skin cancer, BLE edema History of Any Multi-Drug Resistant Organisms: MRSA Date of last positivie culture/infection: 05/22/23 MDRO Source:: Sputum Past Surgical History: Appendectomy, Bariatric Surgery, Cholecystectomy, Hernia Repair, Joint Replacement, Orthopedic Surgery Additional Past Surgical History / Comment(s): Gastric sleeve 2013, L inguinal hernia repair, R elbow surgery x2, total R hip arthroplasty, L knee arthroscopy/ACL surgery, R ankle ORIF, EGD, colonoscopy, basal cell skin cancer exc face, surgery for varicele,lt knee arthroscopy x2. Past Anesthesia/Blood Transfusion Reactions: Previous Problems w/ Anesthesia Additional Past Anesthesia/Blood Transfusion Reaction / Comment(s): STATES WAS TOLD HE WAS A DIFFICULT INTUBATION WITH GASTRIC SLEEVE SURGERY, no problems with gallbladder surgery after gastric sleeve surgery in Aug 2021 Past Psychological History: Anxiety, Bipolar, Depression, Panic Disorder, Schizoaffective Disorder Additional Psychological History / Comment(s): Pt resides with his son and daughter. He states he has been bedbound past 4 years. Minimal weight bearing and requires assistance to move. He is unable to sit up independantly. He will call EMS transfer for appointments. Pt states he gets paranoid at times. Smoking Status: Former smoker Past Alcohol Use History: None Reported Additional Past Alcohol Use History / Comment(s): STARTED SMOKING AT AGE 15, QUIT SMOKING 1998, smoked 4 cigerettes- 1PPD. FORMER ETOH ABUSE. Pt states QUIT 2004 Past Drug Use History: None Reported Additional Drug Use History / Comment(s): PAST HX OF MARIJUANA USE - Past Family History Father Family Medical History: Cancer Additional Family Medical History / Comment(s): LUNG CA Mother Family Medical History: Coronary Artery Disease (CAD) Additional Family Medical History / Comment(s): Mother of an infection. Medications and Allergies Home Medications Medication Instructions Recorded Confirmed Type Rivaroxaban [Xarelto] 20 mg PO HS 07/14/19 09/13/23 History OLANZapine 20 mg PO HS 10/29/20 09/13/23 History Omeprazole 20 mg PO DAILY 03/27/21 09/13/23 History DULoxetine HCL [Cymbalta] 60 mg PO DAILY 09/05/21 09/13/23 History Albuterol Sulfate [Ventolin HFA] 1 - 2 puff INHALATION RT-Q6H PRN 10/28/21 09/13/23 History Tamsulosin HCl [Flomax] 0.4 mg PO DAILY 10/28/21 09/13/23 History Tiotropium 2.5 Mcg/Puff [Spiriva 2 puff INHALATION RT-DAILY 10/28/21 09/13/23 History Respimat 2.5 Mcg] Cholecalciferol [Vitamin D3 (25 25 mcg PO DAILY 09/09/22 09/13/23 History Mcg = 1000 Iu)] Metoprolol Tartrate [Lopressor] 25 mg PO BID 09/09/22 09/13/23 History Spironolactone [Aldactone] 25 mg PO DAILY 09/09/22 09/13/23 History Budesonide [Pulmicort] 0.5 mg INHALATION RT-BID 03/17/23 09/13/23 History Docusate [Colace] 100 mg PO DAILY PRN 03/17/23 09/13/23 History Ipratropium-Albuterol Nebulize 3 ml INHALATION RT-QID 03/17/23 09/13/23 History [Duoneb 0.5 mg-3 mg/3 ml Soln] Potassium Chloride ER [K-Dur 20] 20 meq PO TID 03/17/23 09/13/23 History oxyCODONE-APAP 10-325MG [Percocet 1 tab PO Q6H PRN 03/17/23 09/13/23 History 10-325 mg] Ferrous Sulfate [Iron] 325 mg PO DAILY 05/21/23 09/13/23 History Magnesium Oxide [Magox 400] 400 mg PO DAILY 08/27/23 09/13/23 History Nystatin 100,000 Unit/ml Susp 10 ml PO QID PRN 08/27/23 09/13/23 History [Mycostatin Oral Susp] Relaxium Sleep Supplement 4 capsule PO HS 08/27/23 09/13/23 History Semaglutide [Ozempic] 0.25 mg SQ MO 08/27/23 09/13/23 History Naloxone HCl 1 spray NASAL DIRECTED PRN 09/10/23 09/13/23 History Bumetanide [BUMEX] 1 mg PO BID 09/13/23 09/13/23 History predniSONE 10 mg PO DAILY #30 tab 09/16/23 Rx Allergies Allergy/AdvReac Type Severity Reaction Status Date / Time codeine Allergy Severe Swelling Verified 09/25/23 22:57 OF THROAT WITH COUGH SYRUP chlorpheniramine Allergy Unknown Verified 09/25/23 22:57 febuxostat [From Uloric] Allergy Unknown Verified 09/25/23 22:57 phenylephrine Allergy Unknown Verified 09/25/23 22:57 piperacillin sodium Allergy Unknown Verified 09/25/23 22:57 [From Zosyn] tazobactam sodium Allergy Unknown Verified 09/25/23 22:57 [From Zosyn] allopurinol AdvReac NAUSEA, Verified 09/25/23 22:57 RACING HEART buspirone [From BuSpar] AdvReac Rapid Verified 09/25/23 22:57 Heart Rate sulfamethoxazole AdvReac see Verified 09/25/23 22:57 [From Bactrim] comments trimethoprim [From Bactrim] AdvReac see Verified 09/25/23 22:57 comments Physical Exam Vitals: Vital Signs Temp Pulse Resp BP Pulse Ox 09/26/23 02:45 97.8 F 20 98 09/26/23 02:32 98.6 F 98 20 127/69 97 09/26/23 01:00 107 H 16 125/57 96 09/26/23 00:57 98 09/26/23 00:38 110 H 09/25/23 22:54 98.7 F 110 H 18 123/69 94 L Intake and Output 09/25/23 09/25/23 09/26/23 14:59 22:59 06:59 Other: Weight 195.045 kg 195.045 kg Results CBC & Chem 7: 09/25/23 23:33 09/25/23 23:33 Labs: Abnormal Lab Results - Last 24 Hours (Table) 09/25/23 09/25/23 09/25/23 Range/Units 23:33 23:33 23:33 WBC 11.6 H (3.8-10.6) k/uL RBC 4.15 L (4.30-5.90) m/uL Hgb 12.6 L (13.0-17.5) gm/dL Hct 37.8 L (39.0-53.0) % RDW 16.1 H (11.5-15.5) % Neutrophils # 10.4 H (1.3-7.7) k/uL Lymphocytes # 0.6 L (1.0-4.8) k/uL VBG pH (7.31-7.41) VBG pCO2 (37-51) mmHg VBG HCO3 (24-28) mmol/L Sodium 134 L (137-145) mmol/L Chloride 85 L (98-107) mmol/L Carbon Dioxide 39 H (22-30) mmol/L BUN 45 H (9-20) mg/dL Creatinine 0.47 L (0.66-1.25) mg/dL Glucose 153 H (74-99) mg/dL Total Bilirubin 1.4 H (0.2-1.3) mg/dL AST 192 H (17-59) U/L ALT 256 H (4-49) U/L Alkaline Phosphatase 319 H (38-126) U/L Troponin I 0.070 H* (0.000-0.034) ng/mL Total Protein 5.5 L (6.3-8.2) g/dL Albumin 3.0 L (3.5-5.0) g/dL Urine Protein (Negative) Urine Blood (Negative) Urine RBC (0-5) /hpf Hyaline Casts (0-2) /lpf Urine Mucus (None) /hpf 09/25/23 09/26/23 Range/Units 23:36 03:50 WBC (3.8-10.6) k/uL RBC (4.30-5.90) m/uL Hgb (13.0-17.5) gm/dL Hct (39.0-53.0) % RDW (11.5-15.5) % Neutrophils # (1.3-7.7) k/uL Lymphocytes # (1.0-4.8) k/uL VBG pH 7.48 H (7.31-7.41) VBG pCO2 64 H (37-51) mmHg VBG HCO3 48 H (24-28) mmol/L Sodium (137-145) mmol/L Chloride (98-107) mmol/L Carbon Dioxide (22-30) mmol/L BUN (9-20) mg/dL Creatinine (0.66-1.25) mg/dL Glucose (74-99) mg/dL Total Bilirubin (0.2-1.3) mg/dL AST (17-59) U/L ALT (4-49) U/L Alkaline Phosphatase (38-126) U/L Troponin I (0.000-0.034) ng/mL Total Protein (6.3-8.2) g/dL Albumin (3.5-5.0) g/dL Urine Protein 1+ H (Negative) Urine Blood Trace H (Negative) Urine RBC 9 H (0-5) /hpf Hyaline Casts 11 H (0-2) /lpf Urine Mucus Rare H (None) /hpf Thrombosis Risk Factor Assmnt - Choose All That Apply Each Factor Represents 1 point: Medical pt on bed rest Each Risk Factor Represents 2 Points: Age 61-74 years Thrombosis Risk Factor Assessment Total Risk Factor Score: 3 Thrombosis Risk Factor Assessment Level: Moderate Risk Assessment and Plan Assessment: 62 year old male with complex past medical history , recently hospitalized for SOB (multifactorial COPD and CHF ) and pseudomonus UTI discharged on antibiotics cefepime for 7 days, coming back now for increase SOB and chest pain , found to have elevated trops , I discussed the case with ED doc and I accepted the admission for NSTEMI for further cardiac workup with anticipated length of stay > 2 midnights NSTEMI atypical chest pain EKG slight st depression over V2, V3, V4 this is new compared to his most recent EKG aspirin hold statin due to elevated liver enzymes patient was started on lovenox sc inthe ED, but dose was not sufficient for ACS protocol, will DC switch to heparin gtt per ACS protocol trops elevated 0.07. 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 monitor vital signs UTI , pseudomonus continue cefepime 2 gm IVP B q8hr for another 5 days elevated liver enzymes suspected secondary to passive congestion from CHF and fluild overload resume diuretics renal fucntion unremarkable BN 45 , Cr 0.45 monitor urine output liver enzymes elevated AST 192, ALT 256 alk phos unremarkable lasix 40 mg IVP BID discontinue IVF started in the ED chronic conditions shortness of breath with right pleural effusion , CHF and COPD resume inhalers duonebs PRN supplemental oxygen as needed pulmonary consult to evaluate right pleural effusion afib , resume metoprolol , currently on heparin gtt for ACS DM , insulin sliding scale CHF and valvular heart disease continue home cardiac meds LVEF most recent is 50% fall precautions full code DVT PPX on heparin gtt for ACS
[2023-09-26] MEDS: IPRATROPIUM-ALBUTEROL 3 ML NEB INHALATION PRN ×2 (05:10→11:32)
[2023-09-26] MEDS ORDERED: NITROGLYCERIN OINT 1 INCH/GM PACKET TOPICAL STA (05:29)
[2023-09-26] MEDS ORDERED: FUROSEMIDE 10 MG/ML 4 ML VIAL IV SCH (06:00)
[2023-09-26 06:24] LABS: Glucose,Whole Blood 137 mg/dL (70-110)
[2023-09-26] MEDS: INSULIN ASPART (NovoLOG) 100 UNIT/ML VIAL SQ SCH ×4 (06:34→20:59)
[2023-09-26] MEDS: PANTOPRAZOLE 40 MG TABLET PO SCH (06:34)
[2023-09-26 07:43] LABS: Anisocytosis Slight; Basophils % (A) 0 %; Eosinophils % (A) 0 %; HCT 35.8 % (39.0-53.0); HGB 11.5 gm/dL (13.0-17.5); Lymphocytes # (A) 0.6 k/uL (1.0-4.8); Lymphocytes % (A) 6 %; MCH 29.6 pg (25.0-35.0); MCHC 32.2 g/dL (31.0-37.0); MCV 91.9 fL (80.0-100.0); Mean Platelet Volume 7.1; Monocytes # (A) 0.4 k/uL (0-1.0); Monocytes % (A) 5 %; Neutrophils # (A) 8.7 k/uL (1.3-7.7); Neutrophils % (A) 88 %; Platelet Count 200 k/uL (150-450); RDW 16.1 % (11.5-15.5); WBC 9.9 k/uL (3.8-10.6)
[2023-09-26] MEDS: IPRATROPIUM 0.5 MG/2.5 ML NEBU INHALATION SCH ×2 (07:49→11:32)
[2023-09-26 07:51] LABS: Partial Thromboplastin Time 43.1 sec (22.0-30.0); Prothrombin Time 10.9 sec (10.0-12.5)
[2023-09-26] MEDS ORDERED: CEFEPIME 2 GM in SODIUM CHLORIDE 0.9% 100 ML IVPB SCH (08:00)
[2023-09-26] MEDS: BUDESONIDE 0.5 MG/2 ML NEBU INHALATION SCH ×2 (08:23→20:38)
[2023-09-26] MEDS: TAMSULOSIN 0.4 MG CAP.ER.24H PO SCH (08:37)
[2023-09-26] MEDS: ASPIRIN 325 MG TAB PO SCH (08:37)
[2023-09-26] MEDS: METOPROLOL TARTRATE 25 MG TAB PO SCH ×2 (08:37→20:59)
[2023-09-26] MEDS: oxyCODONE-APAP 10-325MG 1 EACH TAB PO PRN ×3 (10:21→22:09)
[2023-09-26 11:40] LABS: Glucose,Whole Blood 120 mg/dL (70-110)
[2023-09-26] MEDS: IPRATROPIUM-ALBUTEROL 3 ML NEB INHALATION SCH ×3 (12:11→20:38)
--- NOTE | 2023-09-26 12:26 | P.CNPUL ---
History of Present Illness Consult date: 09/26/23 Reason for consult: dyspnea History of present illness: History of Present Illness Consult date: 09/26/23 On 09/26/2023, the patient is being seen in for shortness of breath and chest pain and significant fluid overload. The patient is known to me. He is bedridden and he has multiple medical problems and comorbidities. He has chronic restrictive lung disease with chronic hypoxic and hypercapnic respiratory failure and he has a trilogy ventilator at home. The patient was in the hospital approximately 10 days ago and at that time the patient had a urinary tract infection with pseudomonas aeruginosa. He also had enterococcus faecalis VRE in the urine. The patient was discharged home on IV cefepime via a PICC line catheter. The patient comes in with above-mentioned complaints. He has obvious signs of fluid overload. He also encountered chest pain. Troponins are 0.07 0.05 respectively 2 and the patient has no history of coronary artery disease and his EKG is negative. Currently is feeling any chest pain. Chest x-ray findings are chronic with a chronic interstitial edema and volume loss and a chronic right- sided pleural effusion. The echoes at 9.2 with hemoglobin of 11.5 and a platelet count of 200. UA is showing only 1 WBC, 9 RBCs. The patient's proBNP level is 474. The sodium levels of 134, BUN is 45 with a creatinine of 0.7. No altered mentation. He is currently on 3 L of oxygen by nasal cannula and his hemodynamically stable. Review of Systems Constitutional: Denies chills, Denies fever Eyes: denies blurred vision, denies pain Ears, nose, mouth and throat: Denies headache, Denies sore throat Cardiovascular: Reports edema, admits to have some episodicchest pain, admits to haveshortness of breath, he has chronic edema lower extremities bilaterally Respiratory: Reports dyspnea, Denies cough Gastrointestinal: Reports abdominal pain, Reports nausea, Reports vomiting, Denies diarrhea Musculoskeletal: Denies myalgias Integumentary: Denies pruritus, Denies rash Neurological: Denies numbness, Denies weakness, no altered mentation this point in time Psychiatric: Denies anxiety, Denies depression Endocrine: Denies fatigue, Denies weight change Past Medical History Past Medical History: Atrial Fibrillation, Asthma, Cancer, Heart Failure, COPD, Deep Vein Thrombosis (DVT), GERD/Reflux, GI Bleed, Hyperlipidemia, Hypertension, Osteoarthritis (OA), Pneumonia, Pulmonary Embolus (PE), Renal Disease, R espiratory Disorder, Sleep Apnea/CPAP/BIPAP Additional Past Medical History / Comment(s): +Covid 1-05-20 and early 2022, hx chronic CHF/abnormal ECHO-see report/paroxysmal afib/bilat pleural effusions w/ R sided thoracentesis. hypoglycemia. BLE neuropathy, colitis, chronic generalized pain, fluid retention, bedbound, hiatal hernia, DDD, scoliosis, ALEXIS w/ CPAP, CKD stage III, pseudoseizures - none in 1 year, basal cell skin cancer, BLE edema, CPAP and uses Home O2 21/06, SOB. History of Any Multi-Drug Resistant Organisms: MRSA Date of last positivie culture/infection: 05/22/23 MDRO Source:: Sputum Past Surgical History: Appendectomy, Bariatric Surgery, Cholecystectomy, Heart Catheterization, Hernia Repair, Joint Replacement, Orthopedic Surgery Additional Past Surgical History / Comment(s): Gastric sleeve 2013, L inguinal hernia repair, R elbow surgery x2, total R hip arthroplasty, L knee arthroscopy/ACL surgery, R ankle ORIF, EGD, colonoscopy, basal cell skin cancer exc face, surgery for varicele,lt knee arthroscopy x2. Past Anesthesia/Blood Transfusion Reactions: Previous Problems w/ Anesthesia Additional Past Anesthesia/Blood Transfusion Reaction / Comment(s): STATES WAS TOLD HE WAS A DIFFICULT INTUBATION WITH GASTRIC SLEEVE SURGERY, no problems with gallbladder surgery after gastric sleeve surgery in Aug 2021 Past Psychological History: Anxiety, Bipolar, Depression, Panic Disorder, Schizoaffective Disorder Additional Psychological History / Comment(s): Pt resides with his son and daughter. He has help with PT/OT at home. He states he has been bedbound past 4 years. Minimal weigh bearing and requires assistance to move. He is unable to sit up independantly. He will call EMS transfer for appointments. Pt states he gets paranoid at times. Smoking Status: Former smoker Past Alcohol Use History: None Reported Additional Past Alcohol Use History / Comment(s): STARTED SMOKING AT AGE 15, QUIT SMOKING 1998, smoked 4 cigerettes- 1PPD. FORMER ETOH ABUSE. Pt states QUIT 1997 Past Drug Use History: None Reported Additional Drug Use History / Comment(s): PAST HX OF MARIJUANA USE, DENIES USE IN YEARS. - Past Family History Father Family Medical History: Cancer Additional Family Medical History / Comment(s): LUNG CA Mother Family Medical History: Coronary Artery Disease (CAD) Additional Family Medical History / Comment(s): Mother of an infection. Medications and Allergies Home Medications Medication Instructions Recorded Confirmed Type Rivaroxaban [Xarelto] 20 mg PO HS 07/14/19 09/13/23 History OLANZapine 20 mg PO HS 10/29/20 09/13/23 History Omeprazole 20 mg PO DAILY 03/27/21 09/13/23 History DULoxetine HCL [Cymbalta] 60 mg PO DAILY 09/05/21 09/13/23 History Albuterol Sulfate [Ventolin HFA] 1 - 2 puff INHALATION RT-Q6H PRN 10/28/21 09/13/23 History Tamsulosin HCl [Flomax] 0.4 mg PO DAILY 10/28/21 09/13/23 History Tiotropium 2.5 Mcg/Puff [Spiriva 2 puff INHALATION RT-DAILY 10/28/21 09/13/23 History Respimat 2.5 Mcg] Cholecalciferol [Vitamin D3 (25 25 mcg PO DAILY 09/09/22 09/13/23 History Mcg = 1000 Iu)] Metoprolol Tartrate [Lopressor] 25 mg PO BID 09/09/22 09/13/23 History Spironolactone [Aldactone] 25 mg PO DAILY 09/09/22 09/13/23 History Budesonide [Pulmicort] 0.5 mg INHALATION RT-BID 03/17/23 09/13/23 History Docusate [Colace] 100 mg PO DAILY PRN 03/17/23 09/13/23 History Ipratropium-Albuterol Nebulize 3 ml INHALATION RT-QID 03/17/23 09/13/23 History [Duoneb 0.5 mg-3 mg/3 ml Soln] Potassium Chloride ER [K-Dur 20] 20 meq PO TID 03/17/23 09/13/23 History oxyCODONE-APAP 10-325MG [Percocet 1 tab PO Q6H PRN 03/17/23 09/13/23 History 10-325 mg] Ferrous Sulfate [Iron] 325 mg PO DAILY 05/21/23 09/13/23 History Magnesium Oxide [Magox 400] 400 mg PO DAILY 08/27/23 09/13/23 History Nystatin 100,000 Unit/ml Susp 10 ml PO QID PRN 08/27/23 09/13/23 History [Mycostatin Oral Susp] Relaxium Sleep Supplement 4 capsule PO HS 08/27/23 09/13/23 History Semaglutide [Ozempic] 0.25 mg SQ MO 08/27/23 09/13/23 History Naloxone HCl 1 spray NASAL DIRECTED PRN 09/10/23 09/13/23 History Bumetanide [BUMEX] 1 mg PO BID 09/13/23 09/13/23 History predniSONE 10 mg PO DAILY #30 tab 09/16/23 Rx Allergies Allergy/AdvReac Type Severity Reaction Status Date / Time codeine Allergy Severe Swelling Verified 09/25/23 22:57 OF THROAT WITH COUGH SYRUP chlorpheniramine Allergy Unknown Verified 09/25/23 22:57 febuxostat [From Uloric] Allergy Unknown Verified 09/25/23 22:57 phenylephrine Allergy Unknown Verified 09/25/23 22:57 piperacillin sodium Allergy Unknown Verified 09/25/23 22:57 [From Zosyn] tazobactam sodium Allergy Unknown Verified 09/25/23 22:57 [From Zosyn] allopurinol AdvReac NAUSEA, Verified 09/25/23 22:57 RACING HEART buspirone [From BuSpar] AdvReac Rapid Verified 09/25/23 22:57 Heart Rate sulfamethoxazole AdvReac see Verified 09/25/23 22:57 [From Bactrim] comments trimethoprim [From Bactrim] AdvReac see Verified 09/25/23 22:57 comments Physical Exam GENERAL EXAM: Alert, obese 62-year-old male, on 3 L nasal cannula, in no apparent distress. HEAD: Normocephalic. EYES: Normal reaction of pupils, equal size. NOSE: Clear with pink turbinates. THROAT: No erythema or exudates. NECK: No masses, no JVD. CHEST: No chest wall deformity. LUNGS: Equal air entry with no crackles in the bases right greater than left, diminished CVS: S1 and S2 normal with no audible murmur, regular rhythm. ABDOMEN: No hepatosplenomegaly, normal bowel sounds, no guarding or rigidity. SPINE: No scoliosis or deformity SKIN: No rashes CENTRAL NERVOUS SYSTEM: No focal deficits, tone is normal in all 4 extremities. EXTREMITIES: There is no peripheral edema. No clubbing, no cyanosis. Peripheral pulses are intact. Assessment and Plan Chest pain under investigation, troponins are negative, EKGs negative and the patient is currently free of any chest pain Chronic third spacing of fluid overload and edema in all 4 extremities most of the legs, maintain on Bumex on outpatient basis Chronic restrictive lung disease/chronic hypoxic/hypercapnic respiratory failure. The patient is currently on 3 L of oxygen by nasal cannula. The patient also has a trilogy ventilator at home. No altered mentation this point in time. Recent hospitalization for a pseudomonal UTI, treated with IV cefepime via PICC line Chronic right side pleural effusion , chronic, transudate on previous evaluations and drainage chronic DVT of the right leg, on xarelto anemia, normocytic History of A fib, current rhythm is sinus with bundle-branch block pattern Asthma, COPD HIstory of CVA, TIA DM, type 2 History of DVT History of GERD History of GI bleed HIstory of DJD History of PE hypertension hyperlipidemia History of sleep apnea, the patient is known to have a trilogy ventilator at home. Does have a component of obesity hypoventilation syndrome. History of bilateral peripheral neuropathy History of MRSA super morbid obesity with a BMI of 51 History of bariatric surgery History of anxiety, depression, bipolar and schizoaffective disorder Remote history of nicotine dependence/ Plan Supplemented with oxygen at 3 L Allow a AVAPS machine overnight, target thousand volumes around 400 We will utilize diuretics and the patient placed on Lasix 40 mg IV every 8 hours right-sided pleural effusion is chronic and was no thoracentesis at this point in time Continue anticoagulation, the patient remains on Xarelto Continue Aldactone Monitor fluid balance Cardiology consultation regarding the chest pain which is mainly nonspecific at this point in time We'll continue to follow. Past Medical History Past Medical History: Atrial Fibrillation, Asthma, Cancer, Heart Failure, COPD, Deep Vein Thrombosis (DVT), GERD/Reflux, GI Bleed, Hyperlipidemia, Hypertension, Osteoarthritis (OA), Pneumonia, Pulmonary Embolus (PE), Renal Disease, Respiratory Disorder, Sleep Apnea/CPAP/BIPAP Additional Past Medical History / Comment(s): Pt hospitalized [facility] on 08/27/23 acute on chronic SOB, +Covid 12-04-21 and early 2022, hx chronic CHF/abnormal ECHO-see report/paroxysmal afib/bilat pleural effusions w/ R sided thoracentesis. BLE neuropathy, colitis, chronic generalized pain, fluid retention, bedbound since 2018, hiatal hernia, DDD, scoliosis, ALEXIS w/ CPAP, CKD stage III, pseudoseizures - none in 1 year, basal cell skin cancer, BLE edema History of Any Multi-Drug Resistant Organisms: MRSA Date of last positivie culture/infection: 05/22/23 MDRO Source:: Sputum Past Surgical History: Appendectomy, Bariatric Surgery, Cholecystectomy, Hernia Repair, Joint Replacement, Orthopedic Surgery Additional Past Surgical History / Comment(s): Gastric sleeve 2013, L inguinal hernia repair, R elbow surgery x2, total R hip arthroplasty, L knee arthroscopy/ACL surgery, R ankle ORIF, EGD, colonoscopy, basal cell skin cancer exc face, surgery for varicele,lt knee arthroscopy x2. Past Anesthesia/Blood Transfusion Reactions: Previous Problems w/ Anesthesia Additional Past Anesthesia/Blood Transfusion Reaction / Comment(s): STATES WAS TOLD HE WAS A DIFFICULT INTUBATION WITH GASTRIC SLEEVE SURGERY, no problems with gallbladder surgery after gastric sleeve surgery in Aug 2021 Past Psychological History: Anxiety, Bipolar, Depression, Panic Disorder, Schizoaffective Disorder Additional Psychological History / Comment(s): Pt resides with his son and daughter. He states he has been bedbound past 4 years. Minimal weight bearing and requires assistance to move. He is unable to sit up independantly. He will call EMS transfer for appointments. Pt states he gets paranoid at times. Smoking Status: Former smoker Past Alcohol Use History: None Reported Additional Past Alcohol Use History / Comment(s): STARTED SMOKING AT AGE 15, QUIT SMOKING 1998, smoked 4 cigerettes- 1PPD. FORMER ETOH ABUSE. Pt states QUIT 2004 Past Drug Use History: None Reported Additional Drug Use History / Comment(s): PAST HX OF MARIJUANA USE - Past Family History Father Family Medical History: Cancer Additional Family Medical History / Comment(s): LUNG CA Mother Family Medical History: Coronary Artery Disease (CAD) Additional Family Medical History / Comment(s): Mother of an infection. Medications and Allergies Home Medications Medication Instructions Recorded Confirmed Type Rivaroxaban [Xarelto] 20 mg PO HS 07/14/19 09/26/23 History OLANZapine 20 mg PO HS 10/29/20 09/26/23 History Omeprazole 20 mg PO DAILY 03/27/21 09/26/23 History DULoxetine HCL [Cymbalta] 60 mg PO DAILY 09/05/21 09/26/23 History Albuterol Sulfate [Ventolin HFA] 1 - 2 puff INHALATION RT-Q6H PRN 10/28/21 09/26/23 History Tamsulosin HCl [Flomax] 0.4 mg PO DAILY 10/28/21 09/26/23 History Tiotropium 2.5 Mcg/Puff [Spiriva 2 puff INHALATION RT-DAILY 10/28/21 09/26/23 History Respimat 2.5 Mcg] Cholecalciferol [Vitamin D3 (25 25 mcg PO DAILY 09/09/22 09/26/23 History Mcg = 1000 Iu)] Metoprolol Tartrate [Lopressor] 25 mg PO BID 09/09/22 09/26/23 History Spironolactone [Aldactone] 25 mg PO DAILY 09/09/22 09/26/23 History Budesonide [Pulmicort] 0.5 mg INHALATION RT-BID 03/17/23 09/26/23 History Docusate [Colace] 100 mg PO DAILY PRN 03/17/23 09/26/23 History Ipratropium-Albuterol Nebulize 3 ml INHALATION RT-QID 03/17/23 09/26/23 History [Duoneb 0.5 mg-3 mg/3 ml Soln] Potassium Chloride ER [K-Dur 20] 20 meq PO TID 03/17/23 09/26/23 History oxyCODONE-APAP 10-325MG [Percocet 1 tab PO Q6H PRN 03/17/23 09/26/23 History 10-325 mg] Ferrous Sulfate [Iron] 325 mg PO DAILY 05/21/23 09/26/23 History Magnesium Oxide [Magox 400] 400 mg PO DAILY 08/27/23 09/26/23 History Nystatin 100,000 Unit/ml Susp 10 ml PO QID PRN 08/27/23 09/26/23 History [Mycostatin Oral Susp] Relaxium Sleep Supplement 4 capsule PO HS 08/27/23 09/26/23 History Semaglutide [Ozempic] 0.25 mg SQ MO 08/27/23 09/26/23 History Naloxone HCl 1 spray NASAL DIRECTED PRN 09/10/23 09/26/23 History Bumetanide [BUMEX] 1 mg PO BID 09/13/23 09/26/23 History Ceftazidime/Avibactam [Avycaz 2.5 1 dose IM DIRECTED 09/26/23 09/26/23 History Gram Vial] predniSONE See Taper PO DIRECTED 09/26/23 09/26/23 History Allergies Allergy/AdvReac Type Severity Reaction Status Date / Time codeine Allergy Severe Swelling Verified 09/26/23 12:01 OF THROAT WITH COUGH SYRUP chlorpheniramine Allergy Unknown Verified 09/26/23 12:01 febuxostat [From Uloric] Allergy Unknown Verified 09/26/23 12:01 phenylephrine Allergy Unknown Verified 09/26/23 12:01 piperacillin sodium Allergy Unknown Verified 09/26/23 12:01 [From Zosyn] tazobactam sodium Allergy Unknown Verified 09/26/23 12:01 [From Zosyn] allopurinol AdvReac NAUSEA, Verified 09/26/23 12:01 RACING HEART buspirone [From BuSpar] AdvReac Rapid Verified 09/26/23 12:01 Heart Rate sulfamethoxazole AdvReac see Verified 09/26/23 12:01 [From Bactrim] comments trimethoprim [From Bactrim] AdvReac see Verified 09/26/23 12:01 comments Physical Exam Vitals: Vital Signs Temp Pulse Pulse Resp BP BP Pulse Ox 09/26/23 11:42 92 16 09/26/23 11:32 90 16 09/26/23 11:25 80 18 112/62 98 09/26/23 08:34 90 16 09/26/23 08:32 97.4 F L 83 18 95/69 09/26/23 08:23 90 16 98 09/26/23 05:23 22 98 09/26/23 05:22 93 22 100 09/26/23 05:21 92 09/26/23 05:18 117/67 09/26/23 05:10 99 09/26/23 04:00 132/48 09/26/23 02:45 97.8 F 20 98 09/26/23 02:32 98.6 F 98 20 127/69 97 09/26/23 01:00 107 H 16 125/57 96 09/26/23 00:57 98 09/26/23 00:38 110 H 09/25/23 22:54 98.7 F 110 H 18 123/69 94 L Intake and Output 09/25/23 09/26/23 09/26/23 22:59 06:59 14:59 Intake Total 40.191 Balance 40.191 Intake: Intake, IV Titration 40.191 Amount Heparin Sod,Pork in 0.45% 40.191 NaCl 25,000 unit In 0.45 % NaCl 1 250ml.bag @ 5.13 UNITS/KG/HR 10.006 mls/ hr IV .Q24H [facility] Rx#: [id number] Other: Voiding Method Urinal Weight 195.045 kg 195.045 kg Results - Laboratory Findings CBC and BMP: 09/26/23 07:04 09/25/23 23:33 PT/INR, D-dimer PT 10.9 sec (10.0-12.5) 09/26/23 07:04 INR 1.0 (<1.2) 09/26/23 07:04 Abnormal lab findings: Abnormal Labs 09/25/23 09/25/23 09/25/23 23:33 23:33 23:33 WBC 11.6 H RBC 4.15 L Hgb 12.6 L Hct 37.8 L RDW 16.1 H Neutrophils # 10.4 H Lymphocytes # 0.6 L APTT VBG pH VBG pCO2 VBG HCO3 Sodium 134 L Chloride 85 L Carbon Dioxide 39 H BUN 45 H Creatinine 0.47 L Glucose 153 H POC Glucose (mg/dL) Total Bilirubin 1.4 H AST 192 H ALT 256 H Alkaline Phosphatase 319 H Troponin I 0.070 H* Total Protein 5.5 L Albumin 3.0 L Urine Protein Urine Blood Urine RBC Hyaline Casts Urine Mucus 09/25/23 09/26/23 09/26/23 23:36 03:50 06:23 WBC RBC Hgb Hct RDW Neutrophils # Lymphocytes # APTT VBG pH 7.48 H VBG pCO2 64 H VBG HCO3 48 H Sodium Chloride Carbon Dioxide BUN Creatinine Glucose POC Glucose (mg/dL) 137 H Total Bilirubin AST ALT Alkaline Phosphatase Troponin I Total Protein Albumin Urine Protein 1+ H Urine Blood Trace H Urine RBC 9 H Hyaline Casts 11 H Urine Mucus Rare H 09/26/23 09/26/23 09/26/23 07:04 07:04 07:04 WBC RBC 3.90 L Hgb 11.5 L Hct 35.8 L RDW 16.1 H Neutrophils # 8.7 H Lymphocytes # 0.6 L APTT 43.1 H VBG pH VBG pCO2 VBG HCO3 Sodium Chloride Carbon Dioxide BUN Creatinine Glucose POC Glucose (mg/dL) Total Bilirubin AST ALT Alkaline Phosphatase Troponin I 0.059 H* Total Protein Albumin Urine Protein Urine Blood Urine RBC Hyaline Casts Urine Mucus 09/26/23 11:36 WBC RBC Hgb Hct RDW Neutrophils # Lymphocytes # APTT VBG pH VBG pCO2 VBG HCO3 Sodium Chloride Carbon Dioxide BUN Creatinine Glucose POC Glucose (mg/dL) 120 H Total Bilirubin AST ALT Alkaline Phosphatase Troponin I Total Protein Albumin Urine Protein Urine Blood Urine RBC Hyaline Casts Urine Mucus
[2023-09-26 14:52] LABS: Glucose,Whole Blood 60 mg/dL (70-110)
--- NOTE | 2023-09-26 14:57 | P.CRDCN ---
History of Present Illness History of present illness: HISTORY OF PRESENTING ILLNESS Patient is pleasant 62-year-old male with a history of congestive heart failure, COPD, DVT, hypertension, hyperlipidemia, atrial fibrillation, pulmonary embolis m, sleep apnea, obesity, heart catheterization 2013 with normal coronary arteries who presents secondary to chest pain. He has had multiple admissions to [facility] for heart failure and lower extremity edema. He states he has been noticing increasing lower extremity edema as well as chest tightness sensation and therefore came to emergency department. He denies any fevers or chills. Denies any lightheadedness. EKG shows sinus tachycardia, normal axis, no significant ST or T wave abnormalities. Troponin 0.07, 0.05, 0.06. Hemoglobin 11.5, white blood cell 9.9, BUN 45, creatinine 0.47. REVIEW OF SYSTEMS At the time of my exam: CONSTITUTIONAL: Denies fever or chills. CARDIOVASCULAR: +chest pain, +chronic shortness of breath, +orthopnea, no PND No palpitations, +edema. RESPIRATORY: Denies cough. GASTROINTESTINAL: Denies abdominal pain, diarrhea, constipation, nausea or vomiting. MUSCULOSKELETAL: Denies myalgias. NEUROLOGIC: Denies numbness, tingling or weakness. ENDOCRINE: Denies fatigue, weight change, polydipsia or polyurina. GENITOURINARY: Denies burning, hematuria or urgency with micturation. HEMATOLOGIC: Denies history of anemia or bleeding. PHYSICAL EXAMINATION Vital signs reviewed. CONSTITUTIONAL: No apparent distress, obese HEENT: Head is normocephalic. Pupils are equal, round. Sclerae anicteric. Mucous membranes of the mouth are moist. No JVD. No carotid bruit. CHEST EXAMINATION: Lungs are clear to auscultation. No chest wall tenderness is noted on palpation or with deep breathing. HEART EXAMINATION: Regular rate and rhythm. S1, S2 heard. No murmurs, gallops or rub. ABDOMEN: Soft, nontender. Positive bowel sounds. EXTREMITIES: 2+ peripheral pulses, +3+ lower extremity edema and no calf tenderness. NEUROLOGIC EXAMINATION: Patient is awake, alert and oriented x3. ASSESSMENT 1. Acute on chronic diastolic heart failure 2. Persistent atrial fibrillation, currently sinus rhythm 3. Morbid obesity 4. Mildly elevated troponin 5. Chest pain may be related to heart failure versus other 6. Normal coronary arteries by prior heart catheterization 2013 7. Hypertension PLAN Patient with atypical chest pain however mildly elevated troponins. May be some component of heart failure. Obtain recent workup from [facility]. Continue with IV GI diuresis and monitor response. May consider stress testing however obtain prior workup. Further recommendations to follow. Past Medical History Past Medical History: Atrial Fibrillation, Asthma, Cancer, Heart Failure, COPD, Deep Vein Thrombosis (DVT), GERD/Reflux, GI Bleed, Hyperlipidemia, Hypertension, Osteoarthritis (OA), Pneumonia, Pulmonary Embolus (PE), Renal Disease, Respiratory Disorder, Sleep Apnea/CPAP/BIPAP Additional Past Medical History / Comment(s): Pt hospitalized [facility] on 08/27/23 acute on chronic SOB, +Covid 12-04-21 and early 2022, hx chronic CHF/abnormal ECHO-see report/paroxysmal afib/bilat pleural effusions w/ R sided thoracentesis. BLE neuropathy, colitis, chronic generalized pain, fluid retention, bedbound since 2018, hiatal hernia, DDD, scoliosis, ALEXIS w/ CPAP, CKD stage III, pseudoseizures - none in 1 year, basal cell skin cancer, BLE edema History of Any Multi-Drug Resistant Organisms: MRSA Date of last positivie culture/infection: 05/22/23 MDRO Source:: Sputum Past Surgical History: Appendectomy, Bariatric Surgery, Cholecystectomy, Hernia Repair, Joint Replacement, Orthopedic Surgery Additional Past Surgical History / Comment(s): Gastric sleeve 2013, L inguinal hernia repair, R elbow surgery x2, total R hip arthroplasty, L knee arthroscopy/ACL surgery, R ankle ORIF, EGD, colonoscopy, basal cell skin cancer exc face, surgery for varicele,lt knee arthroscopy x2. Past Anesthesia/Blood Transfusion Reactions: Previous Problems w/ Anesthesia Additional Past Anesthesia/Blood Transfusion Reaction / Comment(s): STATES WAS TOLD HE WAS A DIFFICULT INTUBATION WITH GASTRIC SLEEVE SURGERY, no problems with gallbladder surgery after gastric sleeve surgery in Aug 2021 Past Psychological History: Anxiety, Bipolar, Depression, Panic Disorder, Schizoaffective Disorder Additional Psychological History / Comment(s): Pt resides with his son and daughter. He states he has been bedbound past 4 years. Minimal weight bearing and requires assistance to move. He is unable to sit up independantly. He will call EMS transfer for appointments. Pt states he gets paranoid at times. Smoking Status: Former smoker Past Alcohol Use History: None Reported Additional Past Alcohol Use History / Comment(s): STARTED SMOKING AT AGE 15, QUIT SMOKING 1998, smoked 4 cigerettes- 1PPD. FORMER ETOH ABUSE. Pt states QUIT 2004 Past Drug Use History: None Reported Additional Drug Use History / Comment(s): PAST HX OF MARIJUANA USE - Past Family History Father Family Medical History: Cancer Additional Family Medical History / Comment(s): LUNG CA Mother Family Medical History: Coronary Artery Disease (CAD) Additional Family Medical History / Comment(s): Mother of an infection. Medications and Allergies Home Medications Medication Instructions Recorded Confirmed Type Rivaroxaban [Xarelto] 20 mg PO HS 07/14/19 09/26/23 History OLANZapine 20 mg PO HS 10/29/20 09/26/23 History Omeprazole 20 mg PO DAILY 03/27/21 09/26/23 History DULoxetine HCL [Cymbalta] 60 mg PO DAILY 09/05/21 09/26/23 History Albuterol Sulfate [Ventolin HFA] 1 - 2 puff INHALATION RT-Q6H PRN 10/28/21 09/26/23 History Tamsulosin HCl [Flomax] 0.4 mg PO DAILY 10/28/21 09/26/23 History Tiotropium 2.5 Mcg/Puff [Spiriva 2 puff INHALATION RT-DAILY 10/28/21 09/26/23 History Respimat 2.5 Mcg] Cholecalciferol [Vitamin D3 (25 25 mcg PO DAILY 09/09/22 09/26/23 History Mcg = 1000 Iu)] Metoprolol Tartrate [Lopressor] 25 mg PO BID 09/09/22 09/26/23 History Spironolactone [Aldactone] 25 mg PO DAILY 09/09/22 09/26/23 History Budesonide [Pulmicort] 0.5 mg INHALATION RT-BID 03/17/23 09/26/23 History Docusate [Colace] 100 mg PO DAILY PRN 03/17/23 09/26/23 History Ipratropium-Albuterol Nebulize 3 ml INHALATION RT-QID 03/17/23 09/26/23 History [Duoneb 0.5 mg-3 mg/3 ml Soln] Potassium Chloride ER [K-Dur 20] 20 meq PO TID 03/17/23 09/26/23 History oxyCODONE-APAP 10-325MG [Percocet 1 tab PO Q6H PRN 03/17/23 09/26/23 History 10-325 mg] Ferrous Sulfate [Iron] 325 mg PO DAILY 05/21/23 09/26/23 History Magnesium Oxide [Magox 400] 400 mg PO DAILY 08/27/23 09/26/23 History Nystatin 100,000 Unit/ml Susp 10 ml PO QID PRN 08/27/23 09/26/23 History [Mycostatin Oral Susp] Relaxium Sleep Supplement 4 capsule PO HS 08/27/23 09/26/23 History Semaglutide [Ozempic] 0.25 mg SQ MO 08/27/23 09/26/23 History Naloxone HCl 1 spray NASAL DIRECTED PRN 09/10/23 09/26/23 History Bumetanide [BUMEX] 1 mg PO BID 09/13/23 09/26/23 History Ceftazidime/Avibactam [Avycaz 2.5 1 dose IM DIRECTED 09/26/23 09/26/23 History Gram Vial] predniSONE See Taper PO DIRECTED 09/26/23 09/26/23 History Allergies Allergy/AdvReac Type Severity Reaction Status Date / Time codeine Allergy Severe Swelling Verified 09/26/23 12:01 OF THROAT WITH COUGH SYRUP chlorpheniramine Allergy Unknown Verified 09/26/23 12:01 febuxostat [From Uloric] Allergy Unknown Verified 09/26/23 12:01 phenylephrine Allergy Unknown Verified 09/26/23 12:01 piperacillin sodium Allergy Unknown Verified 09/26/23 12:01 [From Zosyn] tazobactam sodium Allergy Unknown Verified 09/26/23 12:01 [From Zosyn] allopurinol AdvReac NAUSEA, Verified 09/26/23 12:01 RACING HEART buspirone [From BuSpar] AdvReac Rapid Verified 09/26/23 12:01 Heart Rate sulfamethoxazole AdvReac see Verified 09/26/23 12:01 [From Bactrim] comments trimethoprim [From Bactrim] AdvReac see Verified 09/26/23 12:01 comments Physical Exam Vitals: Vital Signs Temp Pulse Pulse Resp BP BP Pulse Ox 09/26/23 11:42 92 16 09/26/23 11:32 90 16 09/26/23 11:25 80 18 112/62 98 09/26/23 08:34 90 16 09/26/23 08:32 97.4 F L 83 18 95/69 09/26/23 08:23 90 16 98 09/26/23 05:23 22 98 09/26/23 05:22 93 22 100 09/26/23 05:21 92 09/26/23 05:18 117/67 09/26/23 05:10 99 09/26/23 04:00 132/48 09/26/23 02:45 97.8 F 20 98 09/26/23 02:32 98.6 F 98 20 127/69 97 09/26/23 01:00 107 H 16 125/57 96 09/26/23 00:57 98 09/26/23 00:38 110 H 09/25/23 22:54 98.7 F 110 H 18 123/69 94 L Intake and Output 09/25/23 09/26/23 09/26/23 22:59 06:59 14:59 Intake Total 40.191 Output Total 500 Balance -459.809 Intake: Intake, IV Titration 40.191 Amount Heparin Sod,Pork in 0.45% 40.191 NaCl 25,000 unit In 0.45 % NaCl 1 250ml.bag @ 5.13 UNITS/KG/HR 10.006 mls/ hr IV .Q24H [facility] Rx#: [id number] Output: Urine 500 Other: Voiding Method Urinal Weight 195.045 kg 195.045 kg Results 09/26/23 07:04 09/25/23 23:33 Cardiac Enzymes 09/25/23 09/25/23 09/26/23 Range/Units 23:33 23:33 07:04 AST 192 H (17-59) U/L Troponin I 0.070 H* 0.059 H* (0.000-0.034) ng/mL 09/26/23 Range/Units 12:34 AST (17-59) U/L Troponin I 0.062 H* (0.000-0.034) ng/mL Coagulation 09/25/23 09/26/23 Range/Units 23:33 07:04 PT 12.1 10.9 (10.0-12.5) sec APTT 29.2 43.1 H (22.0-30.0) sec CBC 09/25/23 09/26/23 Range/Units 23:33 07:04 WBC 11.6 H 9.9 (3.8-10.6) k/uL RBC 4.15 L 3.90 L (4.30-5.90) m/uL Hgb 12.6 L 11.5 L (13.0-17.5) gm/dL Hct 37.8 L 35.8 L (39.0-53.0) % Plt Count 188 200 (150-450) k/uL Comprehensive Metabolic Panel 09/25/23 Range/Units 23:33 Sodium 134 L (137-145) mmol/L Potassium 3.7 (3.5-5.1) mmol/L Chloride 85 L (98-107) mmol/L Carbon Dioxide 39 H (22-30) mmol/L BUN 45 H (9-20) mg/dL Creatinine 0.47 L (0.66-1.25) mg/dL Glucose 153 H (74-99) mg/dL Calcium 9.2 (8.4-10.2) mg/dL AST 192 H (17-59) U/L ALT 256 H (4-49) U/L Alkaline Phosphatase 319 H (38-126) U/L Total Protein 5.5 L (6.3-8.2) g/dL Albumin 3.0 L (3.5-5.0) g/dL Current Medications Generic Name Dose Route Start Last Admin Trade Name Freq PRN Reason Stop Dose Admin Albuterol/Ipratropium 3 ml 09/26/23 04:29 09/26/23 11:32 Ipratropium-Albuterol 3 Ml Neb INHALATION 3 ml RT-QID PRN Administration Shortness Of Breath Or Wheezing Albuterol/Ipratropium 3 ml 09/26/23 12:00 09/26/23 12:11 Ipratropium-Albuterol 3 Ml Neb INHALATION Not Given RT-QID YUN Aspirin 325 mg 09/26/23 09:00 09/26/23 08:37 Aspirin 325 Mg Tab PO 325 mg DAILY YUN Administration Budesonide 0.5 mg 09/26/23 08:00 09/26/23 08:23 Budesonide 0.5 Mg/2 Ml Nebu INHALATION 0.5 mg RT-BID YUN Administration Dextrose/Water 25 ml 10/29/23 04:44 Dextrose 50% Syringe 50 Ml IVP PER PROTOCOL PRN Hypoglycemia Protocol Dextrose/Water 50 ml 09/26/23 04:44 Dextrose 50% Syringe 50 Ml IVP PER PROTOCOL PRN Hypoglycemia Protocol Duloxetine HCl 60 mg 09/27/23 09:00 Duloxetine Hcl 60 Mg Capsule.Dr PO DAILY YUN Furosemide 40 mg 09/26/23 16:00 Furosemide 10 Mg/Ml 4 Ml Vial IV Q8HR [facility] Heparin Sodium/Sodium Chloride 250 mls @ 10.006 mls/hr 09/26/23 04:45 09/26/23 08:49 25,000 unit/ Sodium Chloride IV 09/26/23 17:30 6.15 units/kg/hr .Q24H YUN 12 mls/hr Titration Protocol 5.13 UNITS/KG/HR Cefazolin Sodium 2 gm/ Sodium 50 mls @ 100 mls/hr 09/26/23 16:00 Chloride IVPB Q8HR [facility] Protocol Insulin Aspart 0 unit 09/26/23 07:30 09/26/23 11:45 Insulin Aspart (Novolog) 100 Unit/Ml Vial SQ Not Given ACHS [facility] Protocol Metoprolol Tartrate 25 mg 09/26/23 09:00 09/26/23 08:37 Metoprolol Tartrate 25 Mg Tab PO 25 mg BID YUN Administration Naloxone HCl 0.2 mg 09/26/23 01:01 Naloxone 0.4 Mg/Ml 1 Ml Vial IV Q2M PRN Opioid Reversal Nitroglycerin 0.4 mg 09/26/23 04:28 09/26/23 04:33 Nitroglycerin Sl Tabs 0.4 Mg Tab SUBLINGUAL 0.4 mg Q5M PRN Administration Chest Pain Olanzapine 20 mg 09/26/23 21:00 Olanzapine 10 Mg Tab PO HS YUN Ondansetron HCl 4 mg 09/26/23 01:01 Ondansetron 4 Mg/2 Ml Vial IVP Q8HR PRN Nausea And Vomiting Oxycodone/Acetaminophen 1 each 09/26/23 10:13 09/26/23 10:21 Oxycodone-Apap 10-325mg 1 Each Tab PO 1 each Q6H PRN Administration Pain Pantoprazole Sodium 40 mg 09/26/23 07:30 09/26/23 06:34 Pantoprazole 40 Mg Tablet PO 40 mg [id number] [facility] Administration Prednisone 10 mg 09/27/23 09:00 Prednisone 10 Mg Tab PO 09/28/23 09:01 DAILY [facility] Rivaroxaban 20 mg 09/26/23 17:30 Rivaroxaban 20 Mg Tab PO W/SUPPER [facility] Spironolactone 25 mg 09/27/23 09:00 Spironolactone 25 Mg Tab PO DAILY [facility] Tamsulosin HCl 0.4 mg 09/26/23 09:00 09/26/23 08:37 Tamsulosin 0.4 Mg Cap.Er.24h PO 0.4 mg DAILY [facility] Administration Intake and Output 09/25/23 09/26/23 09/26/23 22:59 06:59 14:59 Intake Total 40.191 Output Total 500 Balance -459.809 Intake: Intake, IV Titration 40.191 Amount Heparin Sod,Pork in 0.45% 40.191 NaCl 25,000 unit In 0.45 % NaCl 1 250ml.bag @ 5.13 UNITS/KG/HR 10.006 mls/ hr IV .Q24H [facility] Rx#: [id number] Output: Urine 500 Other: Voiding Method Urinal Weight 195.045 kg 195.045 kg 09/26/23 07:04 09/25/23 23:33
[2023-09-26 15:13] LABS: Glucose,Whole Blood 62 mg/dL (70-110)
--- NOTE | 2023-09-26 15:38 | US ---
EXAMINATION TYPE: US venous doppler duplex LE BI DATE OF EXAM: 09/26/2023 3:14 PM COMPARISON: NONE CLINICAL INDICATION: Male, 62 years old with history of swelling; SIDE PERFORMED: Bilateral TECHNIQUE: The lower extremity deep venous system is examined utilizing real time linear array sonog snehal with graded compression, doppler sonography and color-flow sonography. VESSELS IMAGED: Common Femoral Vein Deep Femoral Vein Greater Saphenous Vein * Femoral Vein Popliteal Vein Right Leg: Negative for DVT Left Leg: Negative for DVT Grayscale, color doppler, spectral doppler imaging performed of the deep veins of the lower extremiti es. There is normal flow, compressibility, vascular waveforms. IMPRESSION: No evidence of deep venous thrombosis within the lower extremities.
--- NOTE | 2023-09-26 15:50 | US ---
EXAMINATION TYPE: US liver DATE OF EXAM: 09/26/2023 COMPARISON: NONE CLINICAL INDICATION: Male, 62 years old with history of add gall bladder obstructive transaminitis; t ransaminitis gallbladder removed 2 yeas ago per patient. Exam limitations due to large body habitus TECHNIQUE: Multiple sonographic images of the right upper quadrant are obtained. FINDINGS: Exam is limited by patient large body habitus. EXAM MEASUREMENTS: Liver Length: 20.5 cm Gallbladder Wall: Gallbladder surgically absent CBD: 0.4 cm Right Kidney: 10.9 x 6.0 x 4.7 cm SPANISHER NOTES: Pancreas: Obscured by bowel gas Liver: Increased attenuation hepatomegaly Gallbladder: Surgically absent Evidence for sonographic Shrestha's sign: No CBD: wnl Right Kidney: No hydronephrosis or masses seen IMPRESSION: 1. Status post cholecystectomy. 2. No evidence for biliary dilatation. 3. Hepatomegaly and hepatic steatosis. 4. Pancreas obscured by bowel gas.
[2023-09-26] MEDS: FUROSEMIDE 10 MG/ML 4 ML VIAL IV SCH ×2 (16:03→22:10)
[2023-09-26] MEDS: RIVAROXABAN 20 MG TAB PO SCH (16:48)
[2023-09-26 16:49] LABS: Glucose,Whole Blood 104 mg/dL (70-110)
[2023-09-26 20:21] LABS: Glucose,Whole Blood 126 mg/dL (70-110)
[2023-09-26] MEDS: OLANZapine 10 MG TAB PO SCH (20:59)
[2023-09-27 03:58] LABS: Glucose,Whole Blood 91 mg/dL (70-110)
[2023-09-27] MEDS: oxyCODONE-APAP 10-325MG 1 EACH TAB PO PRN ×2 (04:25→12:50)
[2023-09-27 06:09] LABS: Glucose,Whole Blood 93 mg/dL (70-110)
[2023-09-27 06:59] LABS: Basophils % (A) 0 %; Eosinophils # (A) 0.1 k/uL (0-0.7); Eosinophils % (A) 1 %; HCT 36.9 % (39.0-53.0); HGB 11.7 gm/dL (13.0-17.5); Hypochromasia Slight; Lymphocytes # (A) 0.4 k/uL (1.0-4.8); Lymphocytes % (A) 6 %; MCH 29.7 pg (25.0-35.0); MCHC 31.7 g/dL (31.0-37.0); MCV 93.8 fL (80.0-100.0); Mean Platelet Volume 8.3; Monocytes # (A) 0.3 k/uL (0-1.0); Monocytes % (A) 5 %; Neutrophils # (A) 5.7 k/uL (1.3-7.7); Neutrophils % (A) 87 %; Platelet Count 171 k/uL (150-450); RBC 3.93 m/uL (4.30-5.90); RDW 15.8 % (11.5-15.5); WBC 6.6 k/uL (3.8-10.6)
[2023-09-27 07:04] LABS: Prothrombin Time 11.3 sec (10.0-12.5)
[2023-09-27] MEDS: INSULIN ASPART (NovoLOG) 100 UNIT/ML VIAL SQ SCH ×4 (07:53→19:57)
--- NOTE | 2023-09-27 07:53 | P.CONS ---
History of Present Illness - Reason for Consult Consult date: 09/26/23 Difficulties with IV antibiotic initiation Requesting physician: Jovan Amato - Chief Complaint Generalized fatigue and shortness of breath x few days - History of Present Illness Patient is a 62-year-old male with a past medical history significant for hypertension hyperlipidemia osteoarthritis PE COPD DVT atrial fibrillation with recent admission to the hospital patient did have a Pseudomonas urinary tract infection for the patient was advised IV antibiotic therapy prescription was provided to the case maker and was told antibiotic were arranged before the patient was discharged however the patient did have a difficulty getting his antibiotics for unknown reason finally he was able to get his antibiotic 2 days before presentation to the hospital patient now presenting to [facility] ER last night concerning for increasing shortness of breath and generalized fatigue intermittent episodes of chest pain on the left side without any radiation no nausea no vomiting no abdominal pain no diarrhea and did have overall resolution of his urinary symptoms on presentation to the hospital the patient was afebrile and no fever has been recorded subsequently he was mildly hypoxic with O2 sats of 94% currently 97% on 3 L current oxygen patient did have a white count of 11.6 creatinine 0.47 troponins are elevated as well as liver enzymes urine has been negative with no leukocyte Estrace WBC was 1 patient was continued on cefepime infectious disease was consulted for further management of antibiotic therapy patient also noticed to have increasing swelling to bilateral lower extremity especially the right leg with some erythema and warmth and the patient has been complaining of some dull aching pain mild intensity without any radiation no skin breakdown or any drainage Review of Systems Positive point and negatives has been mentioned in the HPI, complete review of systems was performed and all other systems are negative Past Medical History Past Medical History: Atrial Fibrillation, Asthma, Cancer, Heart Failure, COPD, Deep Vein Thrombosis (DVT), GERD/Reflux, GI Bleed, Hyperlipidemia, Hypertension, Osteoarthritis (OA), Pneumonia, Pulmonary Embolus (PE), Renal Disease, Respiratory Disorder, Sleep Apnea/CPAP/BIPAP Additional Past Medical History / Comment(s): Pt hospitalized [facility] on 08/27/23 acute on chronic SOB, +Covid 12-04-21 and early 2022, hx chronic CHF/abnormal ECHO-see report/paroxysmal afib/bilat pleural effusions w/ R sided th oracentesis. BLE neuropathy, colitis, chronic generalized pain, fluid retention, bedbound since 2019, hiatal hernia, DDD, scoliosis, ALEXIS w/ CPAP, CKD stage III, pseudoseizures - none in 1 year, basal cell skin cancer, BLE edema History of Any Multi-Drug Resistant Organisms: MRSA Year Discovered:: 05/22/23 MDRO Source:: Sputum Past Surgical History: Appendectomy, Bariatric Surgery, Cholecystectomy, Hernia Repair, Joint Replacement, Orthopedic Surgery Additional Past Surgical History / Comment(s): Gastric sleeve 2014, L inguinal hernia repair, R elbow surgery x2, total R hip arthroplasty, L knee arthroscopy/ACL surgery, R ankle ORIF, EGD, colonoscopy, basal cell skin cancer exc face, surgery for varicele,lt knee arthroscopy x2. Past Anesthesia/Blood Transfusion Reactions: Previous Problems w/ Anesthesia Additional Past Anesthesia/Blood Transfusion Reaction / Comm: STATES WAS TOLD HE WAS A DIFFICULT INTUBATION WITH GASTRIC SLEEVE SURGERY, no problems with gallbladder surgery after gastric sleeve surgery in Aug 2021 Past Psychological History: Anxiety, Bipolar, Depression, Panic Disorder, Schizoaffective Disorder Additional Psychological History / Comment(s): Pt resides with his son and daughter. He states he has been bedbound past 4 years. Minimal weight bearing and requires assistance to move. He is unable to sit up independantly. He will call EMS transfer for appointments. Pt states he gets paranoid at times. Smoking Status: Former smoker Past Alcohol Use History: None Reported Additional Past Alcohol Use History / Comment(s): STARTED SMOKING AT AGE 15, QUIT SMOKING 1998, smoked 4 cigerettes- 1PPD. FORMER ETOH ABUSE. Pt states QUIT 2004 Past Drug Use History: None Reported Additional Drug Use History / Comment(s): PAST HX OF MARIJUANA USE - Past Family History Father Family Medical History: Cancer Additional Family Medical History / Comment(s): LUNG CA Mother Family Medical History: Coronary Artery Disease (CAD) Additional Family Medical History / Comment(s): Mother of an infection. Medications and Allergies Home Medications Medication Instructions Recorded Confirmed Type Rivaroxaban [Xarelto] 20 mg PO HS 07/14/19 09/26/23 History OLANZapine 20 mg PO HS 10/29/20 09/26/23 History Omeprazole 20 mg PO DAILY 03/27/21 09/26/23 History DULoxetine HCL [Cymbalta] 60 mg PO DAILY 09/05/21 09/26/23 History Albuterol Sulfate [Ventolin HFA] 1 - 2 puff INHALATION RT-Q6H PRN 10/28/21 09/26/23 History Tamsulosin HCl [Flomax] 0.4 mg PO DAILY 10/28/21 09/26/23 History Tiotropium 2.5 Mcg/Puff [Spiriva 2 puff INHALATION RT-DAILY 10/28/21 09/26/23 History Respimat 2.5 Mcg] Cholecalciferol [Vitamin D3 (25 25 mcg PO DAILY 09/09/22 09/26/23 History Mcg = 1000 Iu)] Spironolactone [Aldactone] 25 mg PO DAILY 09/09/22 09/26/23 History Budesonide [Pulmicort] 0.5 mg INHALATION RT-BID 03/17/23 09/26/23 History Docusate [Colace] 100 mg PO DAILY PRN 03/17/23 09/26/23 History Ipratropium-Albuterol Nebulize 3 ml INHALATION RT-QID 03/17/23 09/26/23 History [Duoneb 0.5 mg-3 mg/3 ml Soln] Potassium Chloride ER [K-Dur 20] 20 meq PO TID 03/17/23 09/26/23 History oxyCODONE-APAP 10-325MG [Percocet 1 tab PO Q6H PRN 03/17/23 09/26/23 History 10-325 mg] Ferrous Sulfate [Iron] 325 mg PO DAILY 05/21/23 09/26/23 History Magnesium Oxide [Magox 400] 400 mg PO DAILY 08/27/23 09/26/23 History Nystatin 100,000 Unit/ml Susp 10 ml PO QID PRN 08/27/23 09/26/23 History [Mycostatin Oral Susp] Relaxium Sleep Supplement 4 capsule PO HS 08/27/23 09/26/23 History Semaglutide [Ozempic] 0.25 mg SQ MO 08/27/23 09/26/23 History Naloxone HCl 1 spray NASAL DIRECTED PRN 09/10/23 09/26/23 History Aspirin 81 mg PO DAILY tab 09/30/23 Rx Bumetanide [BUMEX] 2 mg PO BID #60 tablet 09/30/23 Rx Cephalexin [Keflex] 500 mg PO Q6HR 7 Days #28 cap 09/30/23 Rx Metoprolol Tartrate [Lopressor] 25 mg PO TID #0 09/30/23 09/26/23 Rx acetaZOLAMIDE [Diamox] 250 mg PO BID #60 tab 09/30/23 Rx Allergies Allergy/AdvReac Type Severity Reaction Status Date / Time codeine Allergy Severe Swelling Verified 09/26/23 12:01 OF THROAT WITH COUGH SYRUP chlorpheniramine Allergy Unknown Verified 09/26/23 12:01 febuxostat [From Uloric] Allergy Unknown Verified 09/26/23 12:01 phenylephrine Allergy Unknown Verified 09/26/23 12:01 piperacillin sodium Allergy Unknown Verified 09/26/23 12:01 [From Zosyn] tazobactam sodium Allergy Unknown Verified 09/26/23 12:01 [From Zosyn] allopurinol AdvReac NAUSEA, Verified 09/26/23 12:01 RACING HEART buspirone [From BuSpar] AdvReac Rapid Verified 09/26/23 12:01 Heart Rate sulfamethoxazole AdvReac see Verified 09/26/23 12:01 [From Bactrim] comments trimethoprim [From Bactrim] AdvReac see Verified 09/26/23 12:01 comments Physical Exam Vitals: Vital Signs Temp Pulse Pulse Resp BP BP Pulse Ox 09/26/23 11:42 92 16 09/26/23 11:32 90 16 09/26/23 11:25 80 18 112/62 98 09/26/23 08:34 90 16 09/26/23 08:32 97.4 F L 83 18 95/69 09/26/23 08:23 90 16 98 09/26/23 05:23 22 98 09/26/23 05:22 93 22 100 09/26/23 05:21 92 09/26/23 05:18 117/67 09/26/23 05:10 99 09/26/23 04:00 132/48 09/26/23 02:45 97.8 F 20 98 09/26/23 02:32 98.6 F 98 20 127/69 97 09/26/23 01:00 107 H 16 125/57 96 09/26/23 00:57 98 09/26/23 00:38 110 H 09/25/23 22:54 98.7 F 110 H 18 123/69 94 L Intake and Output 09/25/23 09/26/23 09/26/23 22:59 06:59 14:59 Intake Total 40.191 Output Total 500 Balance -459.809 Intake: Intake, IV Titration 40.191 Amount Heparin Sod,Pork in 0.45% 40.191 NaCl 25,000 unit In 0.45 % NaCl 1 250ml.bag @ 5.13 UNITS/KG/HR 10.006 mls/ hr IV .Q24H [facility] Rx#: [id number] Output: Urine 500 Other: Voiding Method Urinal Weight 195.045 kg 195.045 kg GENERAL DESCRIPTION: Middle-aged male lying in bed, no distress. No tachypnea or accessory muscle of respiration use. HEENT: Shows Pallor , no scleral icterus. Oral mucous membrane is dry. No pharyngeal erythema or thrush NECK: Trachea central, no thyromegaly. LUNGS: Unlabored breathing. Decreased breath sound on the base HEART: S1, S2, regular rate and rhythm. No loud murmur ABDOMEN: Soft, no tenderness , EXTREMITIES: Diffuse swelling to bilateral lower extremity with redness to the right leg which is warm and tender to touch SKIN: No rash, no masses palpable. NEUROLOGICAL: The patient is awake, alert, oriented x3, mood and affect normal. Results CBC & Chem 7: 09/27/23 06:47 09/30/23 08:16 Labs: Abnormal Lab Results - Last 24 Hours (Table) 09/25/23 09/25/23 09/25/23 Range/Units 23:33 23:33 23:33 WBC 11.6 H (3.8-10.6) k/uL RBC 4.15 L (4.30-5.90) m/uL Hgb 12.6 L (13.0-17.5) gm/dL Hct 37.8 L (39.0-53.0) % RDW 16.1 H (11.5-15.5) % Neutrophils # 10.4 H (1.3-7.7) k/uL Lymphocytes # 0.6 L (1.0-4.8) k/uL APTT (22.0-30.0) sec VBG pH (7.31-7.41) VBG pCO2 (37-51) mmHg VBG HCO3 (24-28) mmol/L Sodium 134 L (137-145) mmol/L Chloride 85 L (98-107) mmol/L Carbon Dioxide 39 H (22-30) mmol/L BUN 45 H (9-20) mg/dL Creatinine 0.47 L (0.66-1.25) mg/dL Glucose 153 H (74-99) mg/dL POC Glucose (mg/dL) (70-110) mg/dL Total Bilirubin 1.4 H (0.2-1.3) mg/dL AST 192 H (17-59) U/L ALT 256 H (4-49) U/L Alkaline Phosphatase 319 H (38-126) U/L Troponin I 0.070 H* (0.000-0.034) ng/mL Total Protein 5.5 L (6.3-8.2) g/dL Albumin 3.0 L (3.5-5.0) g/dL Urine Protein (Negative) Urine Blood (Negative) Urine RBC (0-5) /hpf Hyaline Casts (0-2) /lpf Urine Mucus (None) /hpf 09/25/23 09/26/23 09/26/23 Range/Units 23:36 03:50 06:23 WBC (3.8-10.6) k/uL RBC (4.30-5.90) m/uL Hgb (13.0-17.5) gm/dL Hct (39.0-53.0) % RDW (11.5-15.5) % Neutrophils # (1.3-7.7) k/uL Lymphocytes # (1.0-4.8) k/uL APTT (22.0-30.0) sec VBG pH 7.48 H (7.31-7.41) VBG pCO2 64 H (37-51) mmHg VBG HCO3 48 H (24-28) mmol/L Sodium (137-145) mmol/L Chloride (98-107) mmol/L Carbon Dioxide (22-30) mmol/L BUN (9-20) mg/dL Creatinine (0.66-1.25) mg/dL Glucose (74-99) mg/dL POC Glucose (mg/dL) 137 H (70-110) mg/dL Total Bilirubin (0.2-1.3) mg/dL AST (17-59) U/L ALT (4-49) U/L Alkaline Phosphatase (38-126) U/L Troponin I (0.000-0.034) ng/mL Total Protein (6.3-8.2) g/dL Albumin (3.5-5.0) g/dL Urine Protein 1+ H (Negative) Urine Blood Trace H (Negative) Urine RBC 9 H (0-5) /hpf Hyaline Casts 11 H (0-2) /lpf Urine Mucus Rare H (None) /hpf 09/26/23 09/26/23 09/26/23 Range/Units 07:04 07:04 07:04 WBC (3.8-10.6) k/uL RBC 3.90 L (4.30-5.90) m/uL Hgb 11.5 L (13.0-17.5) gm/dL Hct 35.8 L (39.0-53.0) % RDW 16.1 H (11.5-15.5) % Neutrophils # 8.7 H (1.3-7.7) k/uL Lymphocytes # 0.6 L (1.0-4.8) k/uL APTT 43.1 H (22.0-30.0) sec VBG pH (7.31-7.41) VBG pCO2 (37-51) mmHg VBG HCO3 (24-28) mmol/L Sodium (137-145) mmol/L Chloride (98-107) mmol/L Carbon Dioxide (22-30) mmol/L BUN (9-20) mg/dL Creatinine (0.66-1.25) mg/dL Glucose (74-99) mg/dL POC Glucose (mg/dL) (70-110) mg/dL Total Bilirubin (0.2-1.3) mg/dL AST (17-59) U/L ALT (4-49) U/L Alkaline Phosphatase (38-126) U/L Troponin I 0.059 H* (0.000-0.034) ng/mL Total Protein (6.3-8.2) g/dL Albumin (3.5-5.0) g/dL Urine Protein (Negative) Urine Blood (Negative) Urine RBC (0-5) /hpf Hyaline Casts (0-2) /lpf Urine Mucus (None) /hpf 09/26/23 Range/Units 11:36 WBC (3.8-10.6) k/uL RBC (4.30-5.90) m/uL Hgb (13.0-17.5) gm/dL Hct (39.0-53.0) % RDW (11.5-15.5) % Neutrophils # (1.3-7.7) k/uL Lymphocytes # (1.0-4.8) k/uL APTT (22.0-30.0) sec VBG pH (7.31-7.41) VBG pCO2 (37-51) mmHg VBG HCO3 (24-28) mmol/L Sodium (137-145) mmol/L Chloride (98-107) mmol/L Carbon Dioxide (22-30) mmol/L BUN (9-20) mg/dL Creatinine (0.66-1.25) mg/dL Glucose (74-99) mg/dL POC Glucose (mg/dL) 120 H (70-110) mg/dL Total Bilirubin (0.2-1.3) mg/dL AST (17-59) U/L ALT (4-49) U/L Alkaline Phosphatase (38-126) U/L Troponin I (0.000-0.034) ng/mL Total Protein (6.3-8.2) g/dL Albumin (3.5-5.0) g/dL Urine Protein (Negative) Urine Blood (Negative) Urine RBC (0-5) /hpf Hyaline Casts (0-2) /lpf Urine Mucus (None) /hpf Assessment and Plan (1) Cellulitis of right leg Current Visit: Yes Status: Acute Code(s): L03.115 - CELLULITIS OF RIGHT LOWER LIMB SNOMED Code(s): 23717389584708170 (2) Leukocytosis Current Visit: Yes Status: Acute Code(s): D72.829 - ELEVATED WHITE BLOOD CELL COUNT, UNSPECIFIED SNOMED Code(s): 757962686 Plan: 1patient with recent admission to the hospital with a UTI Pseudomonas, patient was negative has been adequately treated as the patient did have a negative UA on this admission 2-patient will present hospital with increasing shortness of breath and chest pain did have elevated troponin being monitored by cardiology 3-patient also have increasing swelling to bilateral extremity and redness to the right leg concerning for cellulitis 4-we will obtain bilateral extremity Doppler to make sure-no evidence of any DVT 5-antibiotics will be directed more towards the lower extremity cellulitis and will be switched to cefazolin 2 g every 8 hours We will follow on clinical condition and cultures to further adjust medication if needed Thank you for this consultation we will follow the patient along with you Dictation was produced using [employer] dictation software. please excuse any grammatical, word or spelling errors. Time with Patient: Greater than 30
[2023-09-27] MEDS: FUROSEMIDE 10 MG/ML 4 ML VIAL IV SCH (08:21)
[2023-09-27] MEDS: SPIRONOLACTONE 25 MG TAB PO SCH (08:22)
[2023-09-27] MEDS: ASPIRIN 325 MG TAB PO SCH (08:22)
[2023-09-27] MEDS: TAMSULOSIN 0.4 MG CAP.ER.24H PO SCH (08:22)
[2023-09-27] MEDS: METOPROLOL TARTRATE 25 MG TAB PO SCH ×3 (08:22→20:31)
[2023-09-27] MEDS: DULoxetine HCL 60 MG CAPSULE.DR PO SCH (08:22)
[2023-09-27] MEDS: PANTOPRAZOLE 40 MG TABLET PO SCH (08:22)
[2023-09-27] MEDS: predniSONE 10 MG TAB PO SCH (08:25)
[2023-09-27] MEDS: IPRATROPIUM-ALBUTEROL 3 ML NEB INHALATION SCH ×4 (08:43→20:54)
[2023-09-27] MEDS: BUDESONIDE 0.5 MG/2 ML NEBU INHALATION SCH ×2 (08:43→20:54)
[2023-09-27 11:39] LABS: Glucose,Whole Blood 95 mg/dL (70-110)
--- NOTE | 2023-09-27 11:43 | P.PN ---
Subjective HISTORY OF PRESENT ILLNESS: Patient is pleasant 62-year-old male with a history of congestive heart failure, COPD, DVT, hypertension, hyperlipidemia, atrial fibrillation, pulmonary embolism, sleep apnea, obesity, heart catheterization 2013 with normal coronary arteries who presents secondary to chest pain. He has had multiple admissions to [facility] for heart failure and lower extremity edema. He states he has been noticing increasing lower extremity edema as well as chest tightness sensation and therefore came to emergency department. He denies any fevers or chills. Denies any lightheadedness. EKG shows sinus tachycardia, normal axis, no significant ST or T wave abnormalities. Troponin 0.07, 0.05, 0.06. Hemoglobin 11.5, white blood cell 9.9, BUN 45, creatinine 0.47. 09/27/2023 Patient examined this morning at the bedside. Patient denies chest pain or pressure. He continues to report shortness of breath. Patient has significant lower extremity edema. He remains on IV Lasix. Vital signs are stable. He remains on 4 L nasal cannula to maintain oxygen saturations greater than 92%. PHYSICAL EXAM: VITAL SIGNS: Reviewed. GENERAL: Well-developed in no acute distress. NECK: Supple. No JVD or thyromegaly LUNGS: Respirations even and unlabored. Lungs essentially clear to auscultation bilaterally. HEART: Regular rate and rhythm. S1 and S2 heard. EXTREMITIES: Normal range of motion. No clubbing or cyanosis. Peripheral pulses intact. 3+ bilateral lower extremity edema ASSESSMENT: 1. Acute on chronic diastolic heart failure 2. Persistent atrial fibrillation, currently sinus rhythm 3. Morbid obesity 4. Mildly elevated troponin 5. Chest pain may be related to heart failure versus other 6. Normal coronary arteries by prior heart catheterization 2013 7. Hypertension PLAN: Continue current cardiac medications Discontinue IV Lasix Begin Lasix drip at 10 mg an hour Daily weights, accurate I&O, and monitoring of kidney function Further recommendations pending patient's course Nurse practitioner note has been reviewed by physician. Signing provider agrees with the documented findings, assessment, and plan of care. Objective - Vital Signs Vital signs: Vital Signs Temp 98 F 09/27/23 08:20 Pulse 82 09/27/23 09:00 Resp 20 09/27/23 08:20 BP 153/74 09/27/23 08:20 Pulse Ox 92 L 09/27/23 08:44 FiO2 Intake & Output 10/29/23 10/30/23 10/30/23 18:59 06:59 18:59 Intake Total 1524.791 740 120 Output Total 1350 850 350 Balance 174.791 -110 -230 Intake: Intake, IV Titration 146.791 Amount Heparin Sod,Pork in 0.45% 146.791 NaCl 25,000 unit In 0.45 % NaCl 1 250ml.bag @ 5.13 UNITS/KG/HR 10.006 mls/ hr IV .Q24H [facility] Rx#: [id number] Oral 1378 740 120 Output: Urine 1350 850 350 Other: Voiding Method Urinal Urinal # Voids 1 - Labs CBC & Chem 7: 09/27/23 06:47 09/25/23 23:33 Labs: Abnormal Lab Results - Last 24 Hours (Table) 09/26/23 09/26/23 09/26/23 Range/Units 11:36 12:34 14:40 RBC (4.30-5.90) m/uL Hgb (13.0-17.5) gm/dL Hct (39.0-53.0) % RDW (11.5-15.5) % Lymphocytes # (1.0-4.8) k/uL POC Glucose (mg/dL) 120 H 60 L (70-110) mg/dL Troponin I 0.062 H* (0.000-0.034) ng/mL 09/26/23 09/26/23 09/27/23 Range/Units 15:03 20:20 06:47 RBC 3.93 L (4.30-5.90) m/uL Hgb 11.7 L (13.0-17.5) gm/dL Hct 36.9 L (39.0-53.0) % RDW 15.8 H (11.5-15.5) % Lymphocytes # 0.4 L (1.0-4.8) k/uL POC Glucose (mg/dL) 62 L 126 H (70-110) mg/dL Troponin I (0.000-0.034) ng/mL
[2023-09-27 12:14] LABS: African American GFR (CKD) >90 (>60 ml/min/1.73 sqM); Blood Urea Nitrogen 36 mg/dL (9-20); Calcium 8.5 mg/dL (8.4-10.2); Chloride 84 mmol/L (98-107); Glucose 98 mg/dL (74-99); Non-African American GFR(CKD) >90 (>60 ml/min/1.73 sqM); Potassium 3.7 mmol/L (3.5-5.1); Sodium 134 mmol/L (137-145)
[2023-09-27 12:20] LABS: Anion Gap 4 mmol/L
[2023-09-27 12:26] LABS: Carbon Dioxide 46 mmol/L (22-30)
--- NOTE | 2023-09-27 12:43 | P.PN ---
Subjective Progress Note Date: 09/27/23 Principal diagnosis: Leukocytosis and right leg cellulitis Patient is a 62-year-old male with a past medical history significant for hypertension hyperlipidemia osteoarthritis PE COPD DVT atrial fibrillation with recent admission to the hospital patient did have a Pseudomonas urinary tract infection , now presented to the hospital chest pain shortness of breath also noticed to have increasing swelling and some redness to the right leg. On today's evaluation that is 09/27/2023, the patient continues to be afebrile , the patient is breathing comfortably on 4 L nasal cannula and denies any worsening shortness of breath, the patient denies any chest pain or cough, patient denies abdominal pain and no nausea/vomiting or diarrhea , still have lower extremity swelling denies any pain Patient did have white count was 6.6, creatinine 0.52, Doppler was negative for DVT Objective - Vital Signs Vital signs: Vital Signs Temp 98 F 09/27/23 08:20 Pulse 82 09/27/23 12:10 Resp 20 09/27/23 08:20 BP 153/74 09/27/23 08:20 Pulse Ox 92 L 09/27/23 08:44 FiO2 Intake & Output 09/26/23 09/27/23 09/27/23 18:59 06:59 18:59 Intake Total 1524.791 740 120 Output Total 1350 850 350 Balance 174.791 -110 -230 Intake: Intake, IV Titration 146.791 Amount Heparin Sod,Pork in 0.45% 146.791 NaCl 25,000 unit In 0.45 % NaCl 1 250ml.bag @ 5.13 UNITS/KG/HR 10.006 mls/ hr IV .Q24H [facility] Rx#: [id number] Oral 1378 740 120 Output: Urine 1350 850 350 Other: Voiding Method Urinal Urinal Urinal # Voids 1 - Exam GENERAL DESCRIPTION: Middle-age male lying in bed in no distress RESPIRATORY SYSTEM: Unlabored breathing , clear to auscultation anteriorly HEART: S1 S2 regular rate and rhythm , ABDOMEN: Soft , no tenderness EXTREMITIES: Diffuse swelling to both legs with some redness to the right leg - Labs CBC & Chem 7: 09/27/23 06:47 09/27/23 06:47 Labs: Abnormal Lab Results - Last 24 Hours (Table) 09/26/23 09/26/23 09/26/23 Range/Units 12:34 14:40 15:03 RBC (4.30-5.90) m/uL Hgb (13.0-17.5) gm/dL Hct (39.0-53.0) % RDW (11.5-15.5) % Lymphocytes # (1.0-4.8) k/uL Sodium (137-145) mmol/L Chloride (98-107) mmol/L Carbon Dioxide (22-30) mmol/L BUN (9-20) mg/dL Creatinine (0.66-1.25) mg/dL POC Glucose (mg/dL) 60 L 62 L (70-110) mg/dL Hemoglobin A1c (<=6.0) % Troponin I 0.062 H* (0.000-0.034) ng/mL 09/26/23 09/27/23 09/27/23 Range/Units 20:20 06:47 06:47 RBC 3.93 L (4.30-5.90) m/uL Hgb 11.7 L (13.0-17.5) gm/dL Hct 36.9 L (39.0-53.0) % RDW 15.8 H (11.5-15.5) % Lymphocytes # 0.4 L (1.0-4.8) k/uL Sodium (137-145) mmol/L Chloride (98-107) mmol/L Carbon Dioxide (22-30) mmol/L BUN (9-20) mg/dL Creatinine (0.66-1.25) mg/dL POC Glucose (mg/dL) 126 H (70-110) mg/dL Hemoglobin A1c 6.5 H (<=6.0) % Troponin I (0.000-0.034) ng/mL 09/27/23 Range/Units 06:47 RBC (4.30-5.90) m/uL Hgb (13.0-17.5) gm/dL Hct (39.0-53.0) % RDW (11.5-15.5) % Lymphocytes # (1.0-4.8) k/uL Sodium 134 L (137-145) mmol/L Chloride 84 L (98-107) mmol/L Carbon Dioxide 46 H* (22-30) mmol/L BUN 36 H (9-20) mg/dL Creatinine 0.52 L (0.66-1.25) mg/dL POC Glucose (mg/dL) (70-110) mg/dL Hemoglobin A1c (<=6.0) % Troponin I (0.000-0.034) ng/mL Assessment and Plan (1) Leukocytosis Current Visit: Yes Status: Acute Code(s): D72.829 - ELEVATED WHITE BLOOD CELL COUNT, UNSPECIFIED SNOMED Code(s): 662905522 (2) Cellulitis of right leg Current Visit: Yes Status: Acute Code(s): L03.115 - CELLULITIS OF RIGHT LOWE R LIMB SNOMED Code(s): 69228971021785442 Plan: 1patient with recent admission to the hospital with a UTI Pseudomonas, patient was negative has been adequately treated as the patient did have a negative UA on this admission 2-patient will present hospital with increasing shortness of breath and chest pain did have elevated troponin being monitored by cardiology 3-patient also have increasing swelling to bilateral extremity and redness to t he right leg concerning for cellulitis 4- bilateral extremity Doppler was negative for DVT 5We will continue the patient with cefazolin 2 g every 8 hours and apply Phil wrap to keep the swelling down Dictation was produced using [employer] dictation software. please excuse any grammatical, word or spelling errors. Time with Patient: Less than 30
[2023-09-27] MEDS: FUROSEMIDE 100 MG in SODIUM CHLORIDE 0.9% 90 ML IV SCH ×2 (12:51→21:32)
--- NOTE | 2023-09-27 16:21 | P.PN ---
Subjective Progress Note Date: 09/27/23 Principal diagnosis: Chest pain, chronic restrictive lung disease with chronic hypoxic and hypercapnic respiratory failure On 09/26/2023, the patient is being seen in for shortness of breath and chest pain and significant fluid overload. The patient is known to me. He is bedri dden and he has multiple medical problems and comorbidities. He has chronic restrictive lung disease with chronic hypoxic and hypercapnic respiratory failure and he has a trilogy ventilator at home. The patient was in the hospital approximately 10 days ago and at that time the patient had a urinary tract infection with pseudomonas aeruginosa. He also had enterococcus faecalis VRE in the urine. The patient was discharged home on IV cefepime via a PICC line catheter. The patient comes in with above-mentioned complaints. He has obvious signs of fluid overload. He also encountered chest pain. Troponins are 0.07 0.05 respectively 2 and the patient has no history of coronary artery disease and his EKG is negative. Currently is feeling any chest pain. Chest x-ray findings are chronic with a chronic interstitial edema and volume loss and a chronic right- sided pleural effusion. The echoes at 9.2 with hemoglobin of 11.5 and a platelet count of 200. UA is showing only 1 WBC, 9 RBCs. The patient's proBNP level is 474. The sodium levels of 134, BUN is 45 with a creatinine of 0.7. No altered mentation. He is currently on 3 L of oxygen by nasal cannula and his hemodynamically stable. Patient was reevaluated today on 09/27/23, patient is doing better today, no further episodes of chest pain he does have some vague chest discomfort on and off, seen by cardiology, patient does not seem to be in any distress. No shortness of breath, on 3 L with O2 saturation of 98%, and his blood pressure is 129/68 temp 98 2. CBC is relatively normal basic metabolic profile is normal except for bicarb of 46. Patient does have chronic hypercapnic respiratory failure with metabolic compensation. Venous Doppler is negative for DVT chest x-ray on admission showed cardiomegaly and moderate right-sided pleural effusion/atelectasis involving right lower lobe. Patient was seen by c ardiology, felt to have persistent atrial fibrillation and acute on chronic diastolic congestive heart failure Objective - Vital Signs Vital signs: Vital Signs Temp 98.2 F 09/27/23 12:45 Pulse 80 09/27/23 12:45 Resp 18 09/27/23 12:45 BP 129/68 09/27/23 12:45 Pulse Ox 98 09/27/23 12:45 FiO2 Intake & Output 09/26/23 09/27/23 09/27/23 18:59 06:59 18:59 Intake Total 1524.791 740 360 Output Total 2264 236 0856 Balance 174.791 -110 -790 Intake: Intake, IV Titration 146.791 Amount Heparin Sod,Pork in 0.45% 146.791 NaCl 25,000 unit In 0.45 % NaCl 1 250ml.bag @ 5.13 UNITS/KG/HR 10.006 mls/ hr IV .Q24H [facility] Rx#: [id number] Oral 1378 740 360 Output: Urine 3237 250 5442 Other: Voiding Method Urinal Urinal Urinal # Voids 1 - Exam GENERAL EXAM: Alert, obese 62-year-old male, on 2 L nasal cannula, in no apparent distress. Morbidly obese HEAD: Normocephalic. HEENT: PERRLA, EOMI, nonicteric, neck masses no JVD CHEST: No chest wall deformity. LUNGS: Symmetrical chest expansion diminished breath sounds at the bases CVS: S1 and S2 normal with no audible murmur, regular rhythm. ABDOMEN: Morbidly obese No hepatosplenomegaly, normal bowel sounds, no guarding or rigidity. SKIN: No rashes CENTRAL NERVOUS SYSTEM: No focal deficits, tone is normal in all 4 extremities. EXTREMITIES: There is no peripheral edema. No clubbing, no cyanosis. Peripheral pulses are intact. - Labs CBC & Chem 7: 09/27/23 06:47 09/27/23 06:47 Labs: Abnormal Lab Results - Last 24 Hours (Table) 09/26/23 09/27/23 09/27/23 Range/Units 20:20 06:47 06:47 RBC 3.93 L (4.30-5.90) m/uL Hgb 11.7 L (13.0-17.5) gm/dL Hct 36.9 L (39.0-53.0) % RDW 15.8 H (11.5-15.5) % Lymphocytes # 0.4 L (1.0-4.8) k/uL Sodium (137-145) mmol/L Chloride (98-107) mmol/L Carbon Dioxide (22-30) mmol/L BUN (9-20) mg/dL Creatinine (0.66-1.25) mg/dL POC Glucose (mg/dL) 126 H (70-110) mg/dL Hemoglobin A1c 6.5 H (<=6.0) % 09/27/23 Range/Units 06:47 RBC (4.30-5.90) m/uL Hgb (13.0-17.5) gm/dL Hct (39.0-53.0) % RDW (11.5-15.5) % Lymphocytes # (1.0-4.8) k/uL Sodium 134 L (137-145) mmol/L Chloride 84 L (98-107) mmol/L Carbon Dioxide 46 H* (22-30) mmol/L BUN 36 H (9-20) mg/dL Creatinine 0.52 L (0.66-1.25) mg/dL POC Glucose (mg/dL) (70-110) mg/dL Hemoglobin A1c (<=6.0) % Assessment and Plan Assessment: Impression: Atypical chest pain Acute on chronic diastolic congestive heart failure Restrictive lung disease Chronic right-sided pleural effusion History of DVT, maintained on Xarelto Paroxysmal atrial fibrillation History of underlying COPD History of CVA Type 2 diabetes History of GI bleeding History of pulmonary embolism Benign essential hypertension Morbid obesity with BMI of 51 History of bariatric surgery Obstructive sleep apnea syndrome on trilogy ventilator at home Recommendation: Continue oxygen Continue Avaps at night Continue diuretics No need for thoracentesis Continue anticoagulation therapy/ Xarelto Discharge planning once cleared by cardiology We will continue to follow Time with Patient: Less than 30
[2023-09-27 17:03] LABS: Glucose,Whole Blood 96 mg/dL (70-110)
[2023-09-27] MEDS: RIVAROXABAN 20 MG TAB PO SCH (17:22)
--- NOTE | 2023-09-27 18:58 | CA ---
Transthoracic Echo Report Name: Donavon Saha Age: 62 Gender: M : 1960 Exam Date: 09/27/2023 10:37 Exam Location: [place] [facility] Ht (in): 77 Wt (lb): 430 Ordering Physician: Sven Hawthorne MD Attending/Referring Phys: [employer] Operator Marika Grimaldo RDCS Procedure CPT: Indications: trop Cardiac Hx: Technical Quality: Very technically difficult study Contrast 1: Definity Total Dose (mL): 2 Contrast 2: Total Dose (mL): MEASUREMENTS (Male / Female) Normal Values 2D ECHO LV Diastolic Diameter PLAX 3.0 cm 4.2 - 5.9 / 3.9 - 5.3 cm LV Systolic Diameter PLAX 2.3 cm IVS Diastolic Thickness 1.6 cm 0.6 - 1.0 / 0.6 - 0.9 cm LVPW Diastolic Thickness 1.0 cm 0.6 - 1.0 / 0.6 - 0.9 cm LV Relative Wall Thickness 0.9 FINDINGS Left Ventricle Moderately increased left ventricular wall thickness. Left ventricular ejection fraction is estimated at 50-55% Right Ventricle Right Atrium Left Atrium Mitral Valve Aortic Valve Tricuspid Valve Pulmonic Valve Pericardium No pericardial effusion. Aorta CONCLUSIONS Limited echo. Lumason ECHO contrast used for improved visualization of the endocardial borders (inadequate visualization of two or more contiguous segments). Left ventricle systolic function borderline normal Previewed by: Dr. Laila Marshall MD (Electronically Signed) Final Date: 27 September 2023 18:57
[2023-09-27 19:53] LABS: Glucose,Whole Blood 131 mg/dL (70-110)
--- NOTE | 2023-09-27 20:15 | P.PN ---
Progress Note - Text Progress Note Date: 09/27/23 Patient was seen. I agree with the assessment and plan done by my colleague. Increase Lasix to 40 mg IV 3 times a day. Troponins flat. Obtain echocardiogram. Liver US ordered for obstructive transaminitis. Cardiology consultation. Continue IV antibiotics. Restart home medications. Discussed with Dr. Hendrickson. Original Note: History of Present Illness H&P Date: 09/26/23 Chief Complaint: chest pain 62 year old male with complex past medical history he is coming in for chest pain and shortness of breath increase from his baseline. he was recently hospitalized and discharged on 09/16 where he was treated for multifactorial SOB (COPD , CHF) and found to have UTI pseudomonus and discharge on cefepime 2 gm IVPB q8hr for 1 week however, he could not secure the medications until 2 days ago. this time , he reports sudden onset chest pain , he is bed ridden, described and pressure like across his chest and radiates to his jaw, he claims that he had couple episodes that would last 5 minutes, but with worsening shortness of breath that has been getting worse, and feels weaker than usual, and decided to come in for evaluation . no report of fever, chills, sore throat, muscle aches, sick contacts, GI bleed, patient does not have vidales cath and claims he has been urinating with no difficulties. patient has not walked since 2019 and has chronic leg edema bilaterally and weeping edema from his left leg. he is short of breath all the time , and uses home oxygen 2 L . he is known to have moderate size right sided pleural effusion , that has not changed since his last hospital stay , which was evaluated by pulmonary service and no recommendations made for thoracentesis at that time . upon further workup in the ED , heis found to have elevated trops , and admitted for cardiac workup to rule out ACS September 27: I assumed care of the patient today. This is a 62-year-old patient who follows with visiting physicians Dr. Crenshaw. Extensive medical history. Patient been not able to walk since 2019 has gradually become very weak. Baseline some short of breath for 2 years. chronic pain in multiple joints. Normally has a bowel movement every day. Has control of his bladder. Has chronic lower extremity edema. Home oxygen 2 L. Lives with his son and daughter. Recently admitted from September 13 through September 16. [place] to be cor pulmonale and COPD exacerbation. Breathing a bit better. Oral intake good. On Lasix drip. Had a bowel movement. Active Medications Albuterol/Ipratropium (Ipratropium-Albuterol 3 Ml Neb) 3 ml INHALATION RT-QID PRN PRN Reason: Shortness Of Breath Or Wheezing Last Admin: 09/26/23 11:32 Dose: 3 ml Albuterol/Ipratropium (Ipratropium-Albuterol 3 Ml Neb) 3 ml INHALATION RT-QID [facility] Last Admin: 09/27/23 16:16 Dose: 3 ml Aspirin (Aspirin 81 Mg) 81 mg PO DAILY [facility] Budesonide (Budesonide 0.5 Mg/2 Ml Nebu) 0.5 mg INHALATION RT-BID [facility] Last Admin: 09/27/23 08:43 Dose: 0.5 mg Dextrose/Water (Dextrose 50% Syringe 50 Ml) 25 ml IVP PER PROTOCOL PRN; Protocol PRN Reason: Hypoglycemia Dextrose/Water (Dextrose 50% Syringe 50 Ml) 50 ml IVP PER PROTOCOL PRN; Protocol PRN Reason: Hypoglycemia Duloxetine HCl (Duloxetine Hcl 60 Mg Capsule.Dr) 60 mg PO DAILY [facility] Last Admin: 09/27/23 08:22 Dose: 60 mg Cefazolin Sodium 2 gm/ Sodium (Chloride) 50 mls @ 100 mls/hr IVPB Q8HR [facility]; Protocol Last Admin: 09/27/23 17:22 Dose: 100 mls/hr Furosemide 100 mg/ Sodium (Chloride) 100 mls @ 10 mls/hr IV .Q10H [facility] Last Admin: 09/27/23 12:51 Dose: 10 mg/hr, 10 mls/hr Insulin Aspart (Insulin Aspart (Novolog) 100 Unit/Ml Vial) 0 unit SQ ACHS [facility]; Protocol Last Admin: 09/27/23 19:57 Dose: Not Given Metoprolol Tartrate (Metoprolol Tartrate 25 Mg Tab) 25 mg PO TID [facility] Last Admin: 09/27/23 17:22 Dose: 25 mg Naloxone HCl (Naloxone 0.4 Mg/Ml 1 Ml Vial) 0.2 mg IV Q2M PRN PRN Reason: Opioid Reversal Nitroglycerin (Nitroglycerin Sl Tabs 0.4 Mg Tab) 0.4 mg SUBLINGUAL Q5M PRN PRN Reason: Chest Pain Last Admin: 09/26/23 04:33 Dose: 0.4 mg Olanzapine (Olanzapine 10 Mg Tab) 20 mg PO HS [facility] Last Admin: 09/26/23 20:59 Dose: 20 mg Ondansetron HCl (Ondansetron 4 Mg/2 Ml Vial) 4 mg IVP Q8HR PRN PRN Reason: Nausea And Vomiting Oxycodone/Acetaminophen (Oxycodone-Apap 10-325mg 1 Each Tab) 1 each PO Q6H PRN PRN Reason: Pain Last Admin: 09/27/23 12:50 Dose: 1 each Pantoprazole Sodium (Pantoprazole 40 Mg Tablet) 40 mg PO AC-BRKFST [facility] Last Admin: 09/27/23 08:22 Dose: 40 mg Prednisone (Prednisone 10 Mg Tab) 10 mg PO DAILY [facility] Stop: 09/28/23 09:01 Last Admin: 09/27/23 08:25 Dose: Not Given Rivaroxaban (Rivaroxaban 20 Mg Tab) 20 mg PO W/SUPPER [facility] Last Admin: 09/27/23 17:22 Dose: 20 mg Spironolactone (Spironolactone 25 Mg Tab) 25 mg PO DAILY [facility] Last Admin: 09/27/23 08:22 Dose: 25 mg Tamsulosin HCl (Tamsulosin 0.4 Mg Cap.Er.24h) 0.4 mg PO DAILY [facility] Last Admin: 09/27/23 08:22 Dose: 0.4 mg Physical examination: VITAL SIGNS: 98.2, 80, 18, 129/60, 98% on 3 L GENERAL: Reclining in bed, comfortable EYES: Pupils equal. Conjunctiva normal. HEENT: External appearance of nose and ears normal, oral cavity grossly normal. NECK: JVD unable to assess; masses not palpable. HEART: First and second heart sounds are normal; edema present. LUNGS: Respiratory rate increased; decreased breath sound./Clear ABDOMEN: Soft, nontender, liver spleen not palpable, no masses palpable. PSYCH: [Alert and oriented x3; mood and affect normal MUSCULOSKELETAL:No Clubbing/cyanosis;muscles-grossly intact. OA NEUROLOGICAL: Cranial nerves grossly intact; no facial asymmetry, chronically decreased pwer lower extremity INVESTIGATIONS, reviewed in the clinical context: Limited echocardiogram: LV function appears to be borderline normal September 27: White count 6.6 hemoglobin 11.7 platelets 171 sodium 134 potassium 3.7 BUN 36 creatinine 0.5 to Venous Doppler lower extremity: Bilateral negative for DVT Liver ultrasound: Hepatomegaly with hepatic steatosis. Assessment and plan: -Acute on chronic diastolic heart failure.: Slow to respond IV Lasix drip 10 mg an hour -Right pleural effusion, chronic Seen by by pulmonary. Not for thoracentesis. -COPD in a prior smoker: Better DuoNeb 4 times a day. . Nebulized Pulmicort - acute on chronic cor pulmonale exacerbation : Slow to respond Lasix drip 10 mg an hour Fluid restriction -BPH Flomax 0.4 mg daily -Chronic hypoxic respiratory failure, multifactorial 2-3 L of oxygen at home -Moderate secondary pulmonary hypertension, multifactorial -Mild to moderate mitral and aortic regurgitation -Essential hypertension Lopressor 25 mg twice a day -Chronic DVT Xarelto -Bipolar disorder Olanzapine. Cymbalta. -Chronic medical debility patient is chronically bedbound. -Chronic bilateral lower extremity venous insufficiency Phil wrap's -Acute cellulitis of the right leg. IV Ancef. Followed by ID -GERD Omeprazole -Obesity hypoventilation syndrome -Obstructive sleep apnea uses CPAP -Morbid obesity BMI 51 Weight loss measures, outpatient -Diabetes mellitus type 2 ozempic -Metabolic alkalosis from diuresis Diamox -Full code. Lasix drip started today. Diamox added. Discussed with patient.
[2023-09-27] MEDS: OLANZapine 10 MG TAB PO SCH (20:31)
[2023-09-28] MEDS: oxyCODONE-APAP 10-325MG 1 EACH TAB PO PRN ×3 (00:27→21:52)
[2023-09-28 05:57] LABS: Glucose,Whole Blood 187 mg/dL (70-110)
[2023-09-28] MEDS: PANTOPRAZOLE 40 MG TABLET PO SCH ×2 (06:42→06:44)
[2023-09-28] MEDS: INSULIN ASPART (NovoLOG) 100 UNIT/ML VIAL SQ SCH ×4 (06:43→20:13)
[2023-09-28] MEDS: METOPROLOL TARTRATE 25 MG TAB PO SCH ×3 (08:19→21:19)
[2023-09-28] MEDS: DULoxetine HCL 60 MG CAPSULE.DR PO SCH (08:19)
[2023-09-28] MEDS: TAMSULOSIN 0.4 MG CAP.ER.24H PO SCH (08:19)
[2023-09-28] MEDS: SPIRONOLACTONE 25 MG TAB PO SCH ×2 (08:19→21:19)
[2023-09-28] MEDS: ASPIRIN 81 MG PO SCH (08:19)
[2023-09-28] MEDS: FUROSEMIDE 100 MG in SODIUM CHLORIDE 0.9% 90 ML IV SCH ×2 (08:20→19:00)
[2023-09-28] MEDS: predniSONE 10 MG TAB PO SCH (08:26)
[2023-09-28] MEDS: IPRATROPIUM-ALBUTEROL 3 ML NEB INHALATION SCH ×4 (08:38→19:52)
[2023-09-28] MEDS: BUDESONIDE 0.5 MG/2 ML NEBU INHALATION SCH ×2 (08:38→19:52)
[2023-09-28 09:16] LABS: ALT 110 U/L (4-49); AST 40 U/L (17-59); African American GFR (CKD) >90 (>60 ml/min/1.73 sqM); Albumin 2.9 g/dL (3.5-5.0); Alkaline Phosphatase 269 U/L (38-126); Blood Urea Nitrogen 33 mg/dL (9-20); Calcium 8.1 mg/dL (8.4-10.2); Chloride 82 mmol/L (98-107); Glucose 74 mg/dL (74-99); Non-African American GFR(CKD) >90 (>60 ml/min/1.73 sqM); Potassium 3.8 mmol/L (3.5-5.1); Sodium 137 mmol/L (137-145); Total Bilirubin 0.5 mg/dL (0.2-1.3); Total Protein 5.3 g/dL (6.3-8.2)
[2023-09-28 09:22] LABS: Anion Gap 6 mmol/L
[2023-09-28 09:28] LABS: Carbon Dioxide 49 mmol/L (22-30)
--- NOTE | 2023-09-28 11:45 | P.PN ---
Subjective HISTORY OF PRESENT ILLNESS: Patient is pleasant 62-year-old male with a history of congestive heart failure, COPD, DVT, hypertension, hyperlipidemia, atrial fibrillation, pulmonary embolism, sleep apnea, obesity, heart catheterization 2013 with normal coronary arteries who presents secondary to chest pain. He has had multiple admissions to [facility] for heart failure and lower extremity edema. He states he has been noticing increasing lower extremity edema as well as chest tightness sensation and therefore came to emergency department. He denies any fevers or chills. Denies any lightheadedness. EKG shows sinus tachycardia, normal axis, no significant ST or T wave abnormalities. Troponin 0.07, 0.05, 0.06. Hemoglobin 11.5, white blood cell 9.9, BUN 45, creatinine 0.47. 09/27/2023 Patient examined this morning at the bedside. Patient denies chest pain or pressure. He continues to report shortness of breath. Patient has significant lower extremity edema. He remains on IV Lasix. Vital signs are stable. He remains on 4 L nasal cannula to maintain oxygen saturations greater than 92%. 09/28/2023 Patient examined this morning at the bedside. patient currently denies chest pain or pressure. He reports improvement in his shortness of breath. He continues to have lower extremity edema. He is maintained on a Lasix drip at 10 mg an hour. Urine output over the last 24 hours is greater than 6 L. PHYSICAL EXAM: VITAL SIGNS: Reviewed. GENERAL: Well-developed in no acute distress. NECK: Supple. No JVD or thyromegaly LUNGS: Respirations even and unlabored. Lungs essentially clear to auscultation bilaterally. HEART: Regular rate and rhythm. S1 and S2 heard. EXTREMITIES: Normal range of motion. No clubbing or cyanosis. Peripheral pul ses intact. 3+ bilateral lower extremity edema ASSESSMENT: 1. Acute on chronic diastolic heart failure 2. Persistent atrial fibrillation, currently sinus rhythm 3. Morbid obesity 4. Mildly elevated troponin 5. Chest pain may be related to heart failure versus other 6. Normal coronary arteries by prior heart catheterization 2013 7. Hypertension PLAN: Continue current cardiac medications Continue Lasix drip at 10 mg an hour Add Diamox 250 mg twice a day Daily weights, accurate I&O, and monitoring of kidney function Replace potassium Further recommendations pending patient's course Nurse practitioner note has been reviewed by physician. Signing provider agrees with the documented findings, assessment, and plan of care. Objective - Vital Signs Vital signs: Vital Signs Temp 98.1 F 09/28/23 08:18 Pulse 65 09/28/23 08:18 Resp 18 09/28/23 08:18 BP 109/62 09/28/23 08:18 Pulse Ox 99 09/28/23 04:00 FiO2 Intake & Output 09/27/23 09/28/23 09/28/23 18:59 06:59 18:59 Intake Total 1810 863.833 100 Output Total 1675 4575 Balance 135 -3711.167 100 Intake: Intake, IV Titration 86.833 100 Amount Furosemide 100 mg In 86.833 100 Sodium Chloride 0.9% 90 ml @ 10 MG/HR 10 mls/hr IV .Q10H [facility] Rx#: [id number] Oral [id number] Output: Urine 5932 4577 Other: Voiding Method Urinal Urinal - Labs CBC & Chem 7: 09/27/23 06:47 09/28/23 07:53 Labs: Abnormal Lab Results - Last 24 Hours (Table) 09/27/23 09/27/23 09/27/23 Range/Units 06:47 06:47 19:51 Sodium 134 L (137-145) mmol/L Chloride 84 L (98-107) mmol/L Carbon Dioxide 46 H* (22-30) mmol/L BUN 36 H (9-20) mg/dL Creatinine 0.52 L (0.66-1.25) mg/dL POC Glucose (mg/dL) 131 H (70-110) mg/dL Hemoglobin A1c 6.5 H (<=6.0) % 09/28/23 Range/Units 05:56 Sodium (137-145) mmol/L Chloride (98-107) mmol/L Carbon Dioxide (22-30) mmol/L BUN (9-20) mg/dL Creatinine (0.66-1.25) mg/dL POC Glucose (mg/dL) 187 H (70-110) mg/dL Hemoglobin A1c (<=6.0) %
[2023-09-28 11:57] LABS: Glucose,Whole Blood 93 mg/dL (70-110)
[2023-09-28] MEDS: POTASSIUM CHLORIDE ER 20 MEQ TAB.ER PO SCH ×2 (12:17→12:18)
[2023-09-28] MEDS: acetaZOLAMIDE 250 MG TAB PO SCH ×2 (12:18→21:18)
--- NOTE | 2023-09-28 12:50 | CDI ---
Documentation Clarification Form Date: From: Sandhya Mc Phone: [phone] Admit Date: 09/26/2023 02:05:00 AM Patient Name: Donavon Saha Visit Number: [id number] Discharge Date: ATTENTION: The Clinical Documentation Specialists (CDI) and [facility] Coding Staff appreciate your assistance in clarifying documentation. Please respond to the clarification below the line at the bottom and electronically sign. The CDI & [facility] Coding staff will review the response and follow-up if needed. Please note: Queries are made part of the Legal Health Record. If you have any questions, please contact the author of this message via ITS. Dr. Leal Fernández Your patient has elevated troponin levels. Please clarify if there is an additional diagnosis and/or clinical significance related to this value. Patient history/risk factors: "62 year old male with complex past medical history" "he is coming in for chest pain and shortness of breath increase from his baseline" " recently hospitalized and discharged on 09/16 where he was treated for multifactorial SOB (COPD , CHF) and found to have UTI pseudomonus" - Per H&P on 09/26 Clinical indicators: "reports sudden onset chest pain" "worsening shortness of breath that has been getting worse, and feels weaker" - Per H&P on 09/26 "shortness of breath and chest pain and significant fluid overload." - Pulmonology Note on 09/26 "EKG shows sinus tachycardia, normal axis, no significant ST or T wave abnormalities. Troponin 0.07, 0.05, 0.06." " +chest pain, +chronic shortness of breath, +orthopnea, no PND No palpitations, +edema." " Chest pain may be related to heart failure versus other" - Per Cardiology note on 09/26 Troponin: This admission: 09/25 - 0.070, 09/26 - 0.059, 09/26 - 0.062 Previous: 09/13 - 0.012, 09/12 - 0.012 Treatment: Per Pulmonology Note on 09/26 "Supplemented with oxygen at 3 L Allow a AVAPS machine overnight, utilize diuretics and the patient placed on Lasix 40 mg IV every 8 hours" Is there an additional diagnosis and/or clinical significance related to the above lab result/information: [ ] Type 2 MS due to heart failure [ ] Non-ischemic with acute myocardial injury [ ] No additional diagnosis/Not clinically significant [ ] Other, please specify [ ] Unable to determine No additional diagnosis/Not clinically significant MTDD
--- NOTE | 2023-09-28 13:17 | P.PN ---
Subjective Progress Note Date: 09/28/23 Principal diagnosis: Leukocytosis and right leg cellulitis Patient is a 62-year-old male with a past medical history significant for hypertension hyperlipidemia osteoarthritis PE COPD DVT atrial fibrillation with recent admission to the hospital patient did have a Pseudomonas urinary tract infection , now presented to the hospital chest pain shortness of breath also noticed to have increasing swelling and some redness to the right leg. On today's evaluation that is 09/28/2023, the patient remains to be afebrile , the patient is breathing comfortably on 3 L nasal cannula supplemental oxygen, the patient denies any chest pain and no significant cough or sputum production, patient denies abdominal pain and no nausea/vomiting or diarrhea , patient still has swelling to the lower extremity denies pain Patient did have white count was 6.6 as of yesterday, creatinine 0.56, Doppler was negative for DVT Objective - Vital Signs Vital signs: Vital Signs Temp 98.1 F 09/28/23 08:18 Pulse 74 09/28/23 12:22 Resp 16 09/28/23 12:22 BP 104/62 09/28/23 12:22 Pulse Ox 97 09/28/23 12:22 FiO2 Intake & Output 09/27/23 09/28/23 09/28/23 18:59 06:59 18:59 Intake Total 1810 863.833 100 Output Total 1675 4575 1225 Balance 135 -3711.167 -1125 Intake: Intake, IV Titration 86.833 100 Amount Furosemide 100 mg In 86.833 100 Sodium Chloride 0.9% 90 ml @ 10 MG/HR 10 mls/hr IV .Q10H [facility] Rx#: [id number] Oral [id number] Output: Urine 1675 4575 1225 Other: Voiding Method Urinal Urinal Urinal # Voids 2 - Exam GENERAL DESCRIPTION: Middle-age male lying in bed in no distress RESPIRATORY SYSTEM: Unlabored breathing , clear to auscultation anteriorly HEART: S1 S2 regular rate and rhythm , ABDOMEN: Soft , no tenderness EXTREMITIES: Diffuse swelling to both legs with some redness to the right leg - Labs CBC & Chem 7: 09/27/23 06:47 09/28/23 07:53 Labs: Abnormal Lab Results - Last 24 Hours (Table) 09/27/23 09/28/23 09/28/23 Range/Units 19:51 05:56 07:53 Chloride 82 L (98-107) mmol/L Carbon Dioxide 49 H* (22-30) mmol/L BUN 33 H (9-20) mg/dL Creatinine 0.56 L (0.66-1.25) mg/dL POC Glucose (mg/dL) 131 H 187 H (70-110) mg/dL Calcium 8.1 L (8.4-10.2) mg/dL ALT 110 H (4-49) U/L Alkaline Phosphatase 269 H (38-126) U/L Total Protein 5.3 L (6.3-8.2) g/dL Albumin 2.9 L (3.5-5.0) g/dL Assessment and Plan (1) Leukocytosis Current Visit: Yes Status: Acute Code(s): D72.829 - ELEVATED WHITE BLOOD CELL COUNT, UNSPECIFIED SNOMED Code(s): 746781271 (2) Cellulitis of right leg Current Visit: Yes Status: Acute Code(s): L03.115 - CELLULITIS OF RIGHT LOWER LIMB SNOMED Code(s): 58903678992711231 Plan: 1patient with recent admission to the hospital with a UTI Pseudomonas, patient was negative has been adequately treated as the patient did have a negative UA on this admission 2-patient will present hospital with increasing shortness of breath and chest pain did have elevated troponin being monitored by cardiology 3-patient also have increasing swelling to bilateral extremity and redness to the right leg concerning for cellulitis 4- bilateral extremity Doppler was negative for DVT 5patient will continue with cefazolin 2 g every 8 hours however will benefit from Phil wrap to keep the swelling down has been ordered again Dictation was produced using [employer] dictation software. please excuse any grammatical, word or spelling errors. Time with Patient: Less than 30
--- NOTE | 2023-09-28 14:01 | P.PN ---
Subjective Progress Note Date: 09/28/23 Principal diagnosis: Chest pain, chronic restrictive lung disease with chronic hypoxic and hypercapnic respiratory failure On 09/26/2023, the patient is being seen in for shortness of breath and chest pain and significant fluid overload. The patient is known to me. He is bedri dden and he has multiple medical problems and comorbidities. He has chronic restrictive lung disease with chronic hypoxic and hypercapnic respiratory failure and he has a trilogy ventilator at home. The patient was in the hospital approximately 10 days ago and at that time the patient had a urinary tract infection with pseudomonas aeruginosa. He also had enterococcus faecalis VRE in the urine. The patient was discharged home on IV cefepime via a PICC line catheter. The patient comes in with above-mentioned complaints. He has obvious signs of fluid overload. He also encountered chest pain. Troponins are 0.07 0.05 respectively 2 and the patient has no history of coronary artery disease and his EKG is negative. Currently is feeling any chest pain. Chest x-ray findings are chronic with a chronic interstitial edema and volume loss and a chronic right- sided pleural effusion. The echoes at 9.2 with hemoglobin of 11.5 and a platelet count of 200. UA is showing only 1 WBC, 9 RBCs. The patient's proBNP level is 474. The sodium levels of 134, BUN is 45 with a creatinine of 0.7. No altered mentation. He is currently on 3 L of oxygen by nasal cannula and his hemodynamically stable. Patient was reevaluated today on 09/27/23, patient is doing better today, no further episodes of chest pain he does have some vague chest discomfort on and off, seen by cardiology, patient does not seem to be in any distress. No shortness of breath, on 3 L with O2 saturation of 98%, and his blood pressure is 129/68 temp 98 2. CBC is relatively normal basic metabolic profile is normal except for bicarb of 46. Patient does have chronic hypercapnic respiratory failure with metabolic compensation. Venous Doppler is negative for DVT chest x-ray on admission showed cardiomegaly and moderate right-sided pleural effusion/atelectasis involving right lower lobe. Patient was seen by c ardiology, felt to have persistent atrial fibrillation and acute on chronic diastolic congestive heart failure Patient was reevaluated today on 09/28/2023, no active pulmonary symptoms, patient feels fine, he actually reports improvement in his shortness of breath, continues to have significant swelling throughout and edema, maintained on Lasix drip at 10 mg an hour. Patient put out over 6 L in the last 24 hours. Basic metabolic profile showed bicarb of 49 BUN 53 creatinine 0.56. Liver enzymes are noted to be elevated. Objective - Vital Signs Vital signs: Vital Signs Temp 98.1 F 09/28/23 08:18 Pulse 74 09/28/23 12:22 Resp 16 09/28/23 12:22 BP 104/62 09/28/23 12:22 Pulse Ox 97 09/28/23 12:22 FiO2 Intake & Output 09/27/23 09/28/23 09/28/23 18:59 06:59 18:59 Intake Total 1810 863.833 322 Output Total 1675 4575 1225 Balance 135 -3711.167 -903 Intake: Intake, IV Titration 86.833 100 Amount Furosemide 100 mg In 86.833 100 Sodium Chloride 0.9% 90 ml @ 10 MG/HR 10 mls/hr IV .Q10H [facility] Rx#: [id number] Oral 1810 [id number] Output: Urine 1675 4575 1225 Other: Voiding Method Urinal Urinal Urinal # Voids 2 - Exam GENERAL EXAM: Alert, obese 62-year-old male, on 3 L nasal cannula, in no apparent distress. Morbidly obese HEAD: Normocephalic. HEENT: PERRLA, EOMI, nonicteric, neck masses no JVD CHEST: No chest wall deformity. LUNGS: Symmetrical chest expansion diminished breath sounds at the bases CVS: S1 and S2 normal with no audible murmur, regular rhythm. ABDOMEN: Morbidly obese No hepatosplenomegaly, normal bowel sounds, no guarding or rigidity. SKIN: No rashes CENTRAL NERVOUS SYSTEM: No focal deficits, tone is normal in all 4 extremities. EXTREMITIES: 1+ bipedal edema. No clubbing, no cyanosis. Peripheral pulses are intact. - Labs CBC & Chem 7: 09/27/23 06:47 09/28/23 07:53 Labs: Abnormal Lab Results - Last 24 Hours (Table) 09/27/23 09/28/23 09/28/23 Range/Units 19:51 05:56 07:53 Chloride 82 L (98-107) mmol/L Carbon Dioxide 49 H* (22-30) mmol/L BUN 33 H (9-20) mg/dL Creatinine 0.56 L (0.66-1.25) mg/dL POC Glucose (mg/dL) 131 H 187 H (70-110) mg/dL Calcium 8.1 L (8.4-10.2) mg/dL ALT 110 H (4-49) U/L Alkaline Phosphatase 269 H (38-126) U/L Total Protein 5.3 L (6.3-8.2) g/dL Albumin 2.9 L (3.5-5.0) g/dL Assessment and Plan Assessment: Impression: Atypical chest pain Acute on chronic diastolic congestive heart failure Restrictive lung disease Chronic right-sided pleural effusion History of DVT, maintained on Xarelto Paroxysmal atrial fibrillation History of underlying COPD History of CVA Type 2 diabetes History of GI bleeding History of pulmonary embolism Benign essential hypertension Morbid obesity with BMI of 51 History of bariatric surgery Obstructive sleep apnea syndrome on trilogy ventilator at home Recommendation: Continue Lasix drip Continue oxygen Continue Avaps at night No need for thoracentesis Continue anticoagulation therapy/ Xarelto We will continue to follow Time with Patient: Less than 30
[2023-09-28 16:29] LABS: Glucose,Whole Blood 95 mg/dL (70-110)
[2023-09-28] MEDS: RIVAROXABAN 20 MG TAB PO SCH (16:41)
--- NOTE | 2023-09-28 18:34 | P.PN ---
Progress Note - Text Progress Note Date: 09/28/23 Chief Complaint: chest pain 62 year old male with complex past medical history he is coming in for chest pain and shortness of breath increase from his baseline. he was recently hospitalized and discharged on 09/16 where he was treated for multifactorial SOB (COPD , CHF) and found to have UTI pseudomonus and discharge on cefepime 2 gm IVPB q8hr for 1 week however, he could not secure the medications until 2 days ago. this time , he reports sudden onset chest pain , he is bed ridden, described and pressure like across his chest and radiates to his jaw, he claims that he had couple episodes that would last 5 minutes, but with worsening shortness of b reath that has been getting worse, and feels weaker than usual, and decided to come in for evaluation . no report of fever, chills, sore throat, muscle aches, sick contacts, GI bleed, patient does not have vidales cath and claims he has been urinating with no difficulties. patient has not walked since 2019 and has chronic leg edema bilaterally and weeping edema from his left leg. he is short of breath all the time , and uses home oxygen 2 L . he is known to have moderate size right sided pleural effusion , that has not changed since his last hospital stay , which was evaluated by pulmonary service and no recommendations made for thoracentesis at that time . upon further workup in the ED , heis found to have elevated trops , and admitted for cardiac workup to rule out ACS September 27: I assumed care of the patient today. This is a 62-year-old patient who follows with visiting physicians Dr. Crenshaw. Extensive medical history. Patient been not able to walk since 2019 has gradually become very weak. Baseline some short of breath for 2 years. chronic pain in multiple joints. Normally has a bowel movement every day. Has control of his bladder. Has chronic lower extremity edema. Home oxygen 2 L. Lives with his son and daughter. Recently admitted from September 13 through September 16. [place] to be cor pulmonale and COPD exacerbation. Breathing a bit better. Oral intake good. On Lasix drip. Had a bowel movement. September 28: Remains on Lasix drip. Negative fluid balance. Eating fair. 3 L nasal cannula Active Medications Acetazolamide (Acetazolamide 250 Mg Tab) 250 mg PO BID YUN Last Admin: 09/28/23 12:18 Dose: 250 mg Albuterol/Ipratropium (Ipratropium-Albuterol 3 Ml Neb) 3 ml INHALATION RT-QID PRN PRN Reason: Shortness Of Breath Or Wheezing Last Admin: 09/26/23 11:32 Dose: 3 ml Albuterol/Ipratropium (Ipratropium-Albuterol 3 Ml Neb) 3 ml INHALATION RT-QID [facility] Last Admin: 09/28/23 15:34 Dose: 3 ml Aspirin (Aspirin 81 Mg) 81 mg PO DAILY [facility] Last Admin: 09/28/23 08:19 Dose: 81 mg Budesonide (Budesonide 0.5 Mg/2 Ml Nebu) 0.5 mg INHALATION RT-BID [facility] Last Admin: 09/28/23 08:38 Dose: 0.5 mg Dextrose/Water (Dextrose 50% Syringe 50 Ml) 25 ml IVP PER PROTOCOL PRN; Protocol PRN Reason: Hypoglycemia Dextrose/Water (Dextrose 50% Syringe 50 Ml) 50 ml IVP PER PROTOCOL PRN; Protocol PRN Reason: Hypoglycemia Duloxetine HCl (Duloxetine Hcl 60 Mg Capsule.Dr) 60 mg PO DAILY [facility] Last Admin: 09/28/23 08:19 Dose: 60 mg Cefazolin Sodium 2 gm/ Sodium (Chloride) 50 mls @ 100 mls/hr IVPB Q8HR [facility]; Protocol Last Admin: 09/28/23 16:41 Dose: 100 mls/hr Furosemide 100 mg/ Sodium (Chloride) 100 mls @ 10 mls/hr IV .Q10H [facility] Last Admin: 09/28/23 08:20 Dose: 10 mg/hr, 10 mls/hr Insulin Aspart (Insulin Aspart (Novolog) 100 Unit/Ml Vial) 0 unit SQ ACHS [facility]; Protocol Last Admin: 09/28/23 16:43 Dose: Not Given Metoprolol Tartrate (Metoprolol Tartrate 25 Mg Tab) 25 mg PO TID [facility] Last Admin: 09/28/23 16:41 Dose: 25 mg Naloxone HCl (Naloxone 0.4 Mg/Ml 1 Ml Vial) 0.2 mg IV Q2M PRN PRN Reason: Opioid Reversal Nitroglycerin (Nitroglycerin Sl Tabs 0.4 Mg Tab) 0.4 mg SUBLINGUAL Q5M PRN PRN Reason: Chest Pain Last Admin: 09/26/23 04:33 Dose: 0.4 mg Olanzapine (Olanzapine 10 Mg Tab) 20 mg PO HS [facility] Last Admin: 09/27/23 20:31 Dose: 20 mg Ondansetron HCl (Ondansetron 4 Mg/2 Ml Vial) 4 mg IVP Q8HR PRN PRN Reason: Nausea And Vomiting Oxycodone/Acetaminophen (Oxycodone-Apap 10-325mg 1 Each Tab) 1 each PO Q6H PRN PRN Reason: Pain Last Admin: 09/28/23 06:41 Dose: 1 each Pantoprazole Sodium (Pantoprazole 40 Mg Tablet) 40 mg PO AC-BRKFST [facility] Last Admin: 09/28/23 06:44 Dose: 40 mg Rivaroxaban (Rivaroxaban 20 Mg Tab) 20 mg PO W/SUPPER [facility] Last Admin: 09/28/23 16:41 Dose: 20 mg Spironolactone (Spironolactone 25 Mg Tab) 25 mg PO DAILY [facility] Last Admin: 09/28/23 08:19 Dose: 25 mg Tamsulosin HCl (Tamsulosin 0.4 Mg Cap.Er.24h) 0.4 mg PO DAILY [facility] Last Admin: 09/28/23 08:19 Dose: 0.4 mg Physical examination: VITAL SIGNS: 98.1, 65, 18, 109/62, 99% on 3 L GENERAL: Reclining in bed, comfortable EYES: Pupils equal. Conjunctiva normal. HEENT: External appearance of nose and ears normal, oral cavity grossly normal. NECK: JVD unable to assess; masses not palpable. HEART: First and second heart sounds are normal; significant edema present. LUNGS: Respiratory rate increased; decreased breath sound. ABDOMEN: Soft, nontender, liver spleen not palpable, no masses palpable. PSYCH: [Alert and oriented x3; mood and affect normal MUSCULOSKELETAL:No Clubbing/cyanosis;muscles-grossly intact. OA NEUROLOGICAL: Cranial nerves grossly intact; no facial asymmetry, chronically decreased pwer lower extremity INVESTIGATIONS, reviewed in the clinical context: Limited echocardiogram: LV function appears to be borderline normal September 27: White count 6.6 hemoglobin 11.7 platelets 171 sodium 134 potassium 3.7 BUN 36 creatinine 0.5 to Venous Doppler lower extremity: Bilateral negative for DVT Liver ultrasound: Hepatomegaly with hepatic steatosis. Assessment and plan: -Acute on chronic diastolic heart failure.: Slow to respond IV Lasix drip 10 mg an hour -Right pleural effusion, chronic Seen by by pulmonary. Not for thoracentesis. -COPD in a prior smoker: Better DuoNeb 4 times a day. . Nebulized Pulmicort - acute on chronic cor pulmonale exacerbation : Slow to respond Lasix drip 10 mg an hour Fluid restriction -BPH Flomax 0.4 mg daily -Chronic hypoxic respiratory failure, multifactorial 2-3 L of oxygen at home -Moderate secondary pulmonary hypertension, multifactorial -Mild to moderate mitral and aortic regurgitation -Essential hypertension Lopressor 25 mg twice a day -Chronic DVT Xarelto -Bipolar disorder Olanzapine. Cymbalta. -Chronic medical debility patient is chronically bedbound. -Chronic bilateral lower extremity venous insufficiency Phil wrap's -Acute cellulitis of the right leg. IV Ancef. Followed by ID -GERD Omeprazole -Obesity hypoventilation syndrome -Obstructive sleep apnea uses CPAP -Morbid obesity BMI 51 Weight loss measures, outpatient -Diabetes mellitus type 2 ozempic -Metabolic alkalosis from diuresis Diamox -Full code. Lasix drip to continue with Diamox . GERD urine output. Follow labs closely. Increase Aldactone to 25 mg twice a day
[2023-09-28 20:12] LABS: Glucose,Whole Blood 109 mg/dL (70-110)
[2023-09-28] MEDS: OLANZapine 10 MG TAB PO SCH (21:19)
[2023-09-29] MEDS: FUROSEMIDE 100 MG in SODIUM CHLORIDE 0.9% 90 ML IV SCH ×5 (03:44→21:42)
[2023-09-29 03:59] LABS: Glucose,Whole Blood 106 mg/dL (70-110)
[2023-09-29] MEDS: oxyCODONE-APAP 10-325MG 1 EACH TAB PO PRN ×3 (05:28→21:42)
[2023-09-29 05:59] LABS: Glucose,Whole Blood 125 mg/dL (70-110)
[2023-09-29] MEDS: INSULIN ASPART (NovoLOG) 100 UNIT/ML VIAL SQ SCH ×4 (06:08→21:09)
[2023-09-29] MEDS: IPRATROPIUM-ALBUTEROL 3 ML NEB INHALATION SCH ×4 (08:08→21:37)
[2023-09-29] MEDS: BUDESONIDE 0.5 MG/2 ML NEBU INHALATION SCH ×2 (08:08→21:37)
[2023-09-29 09:04] LABS: African American GFR (CKD) >90 (>60 ml/min/1.73 sqM); Blood Urea Nitrogen 27 mg/dL (9-20); Chloride 85 mmol/L (98-107); Glucose 142 mg/dL (74-99); Non-African American GFR(CKD) >90 (>60 ml/min/1.73 sqM); Potassium 3.2 mmol/L (3.5-5.1); Sodium 136 mmol/L (137-145)
[2023-09-29] MEDS: SPIRONOLACTONE 25 MG TAB PO SCH ×2 (09:07→19:47)
[2023-09-29] MEDS: METOPROLOL TARTRATE 25 MG TAB PO SCH ×3 (09:07→19:47)
[2023-09-29] MEDS: ASPIRIN 81 MG PO SCH (09:07)
[2023-09-29] MEDS: TAMSULOSIN 0.4 MG CAP.ER.24H PO SCH (09:07)
[2023-09-29] MEDS: acetaZOLAMIDE 250 MG TAB PO SCH ×2 (09:07→19:47)
[2023-09-29] MEDS: DULoxetine HCL 60 MG CAPSULE.DR PO SCH (09:07)
[2023-09-29 09:11] LABS: Anion Gap 10 mmol/L
[2023-09-29 09:22] LABS: Carbon Dioxide 41 mmol/L (22-30)
[2023-09-29] MEDS: RIVAROXABAN 20 MG TAB PO SCH (10:27)
[2023-09-29] MEDS: POTASSIUM CHLORIDE ER 20 MEQ TAB.ER PO SCH ×3 (11:39→14:23)
[2023-09-29 11:54] LABS: Glucose,Whole Blood 136 mg/dL (70-110)
--- NOTE | 2023-09-29 12:30 | P.PN ---
Subjective HISTORY OF PRESENT ILLNESS: Patient is pleasant 62-year-old male with a history of congestive heart failure, COPD, DVT, hypertension, hyperlipidemia, atrial fibrillation, pulmonary embolism, sleep apnea, obesity, heart catheterization 2013 with normal coronary arteries who presents secondary to chest pain. He has had multiple admissions to [facility] for heart failure and lower extremity edema. He states he has been noticing increasing lower extremity edema as well as chest tightness sensation and therefore came to emergency department. He denies any fevers or chills. Denies any lightheadedness. EKG shows sinus tachycardia, normal axis, no significant ST or T wave abnormalities. Troponin 0.07, 0.05, 0.06. Hemoglobin 11.5, white blood cell 9.9, BUN 45, creatinine 0.47. 09/27/2023 Patient examined this morning at the bedside. Patient denies chest pain or pressure. He continues to report shortness of breath. Patient has significant lower extremity edema. He remains on IV Lasix. Vital signs are stable. He remains on 4 L nasal cannula to maintain oxygen saturations greater than 92%. 09/28/2023 Patient examined this morning at the bedside. patient currently denies chest pain or pressure. He reports improvement in his shortness of breath. He continues to have lower extremity edema. He is maintained on a Lasix drip at 10 mg an hour. Urine output over the last 24 hours is greater than 6 L. 09/29/2023 Patient examined this morning at the bedside. Patient denies chest pain or pressure. He currently denies shortness of breath. He remains on a Lasix drip at 10 mg an hour. Urine output over the last 24 hours is greater than 6 L. The patient does report having frequent nosebleeds this morning. PHYSICAL EXAM: VITAL SIGNS: Reviewed. GENERAL: Well-developed in no acute distress. NECK: Supple. No JVD or thyromegaly LUNGS: Respirations even and unlabored. Lungs essentially clear to auscultation bilaterally. HEART: Regular rate and rhythm. S1 and S2 heard. EXTREMITIES: Normal range of motion. No clubbing or cyanosis. Peripheral pulses intact. 2-3+ bilateral lower extremity edema ASSESSMENT: 1. Acute on chronic diastolic heart failure 2. Persistent atrial fibrillation, currently sinus rhythm 3. Morbid obesity 4. Mildly elevated troponin 5. Chest pain may be related to heart failure versus other 6. Normal coronary arteries by prior heart catheterization 2013 7. Hypertension 8. Epistaxis PLAN: Continue current cardiac medications Continue Lasix drip at 10 mg an hour. Likely transition to IVP tomorrow. Continue Diamox 250 mg twice a day Daily weights, accurate I&O, and monitoring of kidney function Replace potassium Hold Xarelto tonight secondary to epistaxis. Recommend humidification for oxygen. Further recommendations pending patient's course Nurse practitioner note has been reviewed by physician. Signing provider agrees with the documented findings, assessment, and plan of care. Objective - Vital Signs Vital signs: Vital Signs Temp 97.4 F L 09/29/23 09:09 Pulse 80 09/29/23 11:36 Resp 18 09/29/23 09:09 BP 124/55 09/29/23 09:09 Pulse Ox 97 09/29/23 09:09 FiO2 Intake & Output 09/28/23 09/29/23 09/29/23 18:59 06:59 18:59 Intake Total 422 564.333 240 Output Total 4200 2525 1250 [facility]8 -[phone] -[phone] Intake: Intake, IV Titration 200 87.333 Amount Furosemide 100 mg In 200 87.333 Sodium Chloride 0.9% 90 ml @ 10 MG/HR 10 mls/hr IV .Q10H [facility] Rx#: [id number] Oral 222 [id number] Output: Urine 4200 2525 1250 Other: Voiding Method Urinal Urinal Urinal # Voids 2 - Labs CBC & Chem 7: 09/27/23 06:47 09/29/23 08:10 Labs: Abnormal Lab Results - Last 24 Hours (Table) 09/29/23 09/29/23 09/29/23 Range/Units 05:57 08:10 11:52 Sodium 136 L (137-145) mmol/L Potassium 3.2 L (3.5-5.1) mmol/L Chloride 85 L (98-107) mmol/L Carbon Dioxide 41 H* (22-30) mmol/L BUN 27 H (9-20) mg/dL Glucose 142 H (74-99) mg/dL POC Glucose (mg/dL) 125 H 136 H (70-110) mg/dL
--- NOTE | 2023-09-29 13:04 | P.PN ---
Progress Note - Text Progress Note Date: 09/29/23 Chief Complaint: chest pain 62 year old male with complex past medical history he is coming in for chest pain and shortness of breath increase from his baseline. he was recently hospitalized and discharged on 09/16 where he was treated for multifactorial SOB (COPD , CHF) and found to have UTI pseudomonus and discharge on cefepime 2 gm IVPB q8hr for 1 week however, he could not secure the medications until 2 days ago. this time , he reports sudden onset chest pain , he is bed ridden, described and pressure like across his chest and radiates to his jaw, he claims that he had couple episodes that would last 5 minutes, but with worsening shortness of b reath that has been getting worse, and feels weaker than usual, and decided to come in for evaluation . no report of fever, chills, sore throat, muscle aches, sick contacts, GI bleed, patient does not have vidales cath and claims he has been urinating with no difficulties. patient has not walked since 2019 and has chronic leg edema bilaterally and weeping edema from his left leg. he is short of breath all the time , and uses home oxygen 2 L . he is known to have moderate size right sided pleural effusion , that has not changed since his last hospital stay , which was evaluated by pulmonary service and no recommendations made for thoracentesis at that time . upon further workup in the ED , heis found to have elevated trops , and admitted for cardiac workup to rule out ACS September 27: I assumed care of the patient today. This is a 62-year-old patient who follows with visiting physicians Dr. Crenshaw. Extensive medical history. Patient been not able to walk since 2019 has gradually become very weak. Baseline some short of breath for 2 years. chronic pain in multiple joints. Normally has a bowel movement every day. Has control of his bladder. Has chronic lower extremity edema. Home oxygen 2 L. Lives with his son and daughter. Recently admitted from September 13 through September 16. [place] to be cor pulmonale and COPD exacerbation. Breathing a bit better. Oral intake good. On Lasix drip. Had a bowel movement. September 28: Remains on Lasix drip. Negative fluid balance. Eating fair. 3 L nasal cannula September 29: On Lasix drip. Good urine output. Some decrease in edema. Eating fair. Patient very keen to go home as he has his birthday on Wednesday. Active Medications Acetazolamide (Acetazolamide 250 Mg Tab) 250 mg PO BID [facility] Last Admin: 09/29/23 09:07 Dose: 250 mg Albuterol/Ipratropium (Ipratropium-Albuterol 3 Ml Neb) 3 ml INHALATION RT-QID PRN PRN Reason: Shortness Of Breath Or Wheezing Last Admin: 09/26/23 11:32 Dose: 3 ml Albuterol/Ipratropium (Ipratropium-Albuterol 3 Ml Neb) 3 ml INHALATION RT-QID [facility] Last Admin: 09/29/23 11:24 Dose: 3 ml Aspirin (Aspirin 81 Mg) 81 mg PO DAILY [facility] Last Admin: 09/29/23 09:07 Dose: 81 mg Budesonide (Budesonide 0.5 Mg/2 Ml Nebu) 0.5 mg INHALATION RT-BID [facility] Last Admin: 09/29/23 08:08 Dose: 0.5 mg Dextrose/Water (Dextrose 50% Syringe 50 Ml) 25 ml IVP PER PROTOCOL PRN; Prot ocol PRN Reason: Hypoglycemia Dextrose/Water (Dextrose 50% Syringe 50 Ml) 50 ml IVP PER PROTOCOL PRN; Protocol PRN Reason: Hypoglycemia Duloxetine HCl (Duloxetine Hcl 60 Mg Capsule.Dr) 60 mg PO DAILY [facility] Last Admin: 09/29/23 09:07 Dose: 60 mg Cefazolin Sodium 2 gm/ Sodium (Chloride) 50 mls @ 100 mls/hr IVPB Q8HR [facility]; Protocol Last Admin: 09/29/23 09:07 Dose: 100 mls/hr Furosemide 100 mg/ Sodium (Chloride) 100 mls @ 10 mls/hr IV .Q10H [facility] Insulin Aspart (Insulin Aspart (Novolog) 100 Unit/Ml Vial) 0 unit SQ ACHS [facility]; Protocol Last Admin: 09/29/23 12:03 Dose: Not Given Metoprolol Tartrate (Metoprolol Tartrate 25 Mg Tab) 25 mg PO TID [facility] Last Admin: 09/29/23 09:07 Dose: 25 mg Naloxone HCl (Naloxone 0.4 Mg/Ml 1 Ml Vial) 0.2 mg IV Q2M PRN PRN Reason: Opioid Reversal Nitroglycerin (Nitroglycerin Sl Tabs 0.4 Mg Tab) 0.4 mg SUBLINGUAL Q5M PRN PRN Reason: Chest Pain Last Admin: 09/26/23 04:33 Dose: 0.4 mg Olanzapine (Olanzapine 10 Mg Tab) 20 mg PO HS [facility] Last Admin: 09/28/23 21:19 Dose: 20 mg Ondansetron HCl (Ondansetron 4 Mg/2 Ml Vial) 4 mg IVP Q8HR PRN PRN Reason: Nausea And Vomiting Oxycodone/Acetaminophen (Oxycodone-Apap 10-325mg 1 Each Tab) 1 each PO Q6H PRN PRN Reason: Pain Last Admin: 09/29/23 11:38 Dose: 1 each Pantoprazole Sodium (Pantoprazole 40 Mg Tablet) 40 mg PO AC-BRKFST [facility] Last Admin: 09/28/23 06:44 Dose: 40 mg Rivaroxaban (Rivaroxaban 20 Mg Tab) 20 mg PO W/SUPPER [facility] Last Admin: 09/29/23 10:27 Dose: Not Given Spironolactone (Spironolactone 25 Mg Tab) 25 mg PO BID [facility] Last Admin: 09/29/23 09:07 Dose: 25 mg Tamsulosin HCl (Tamsulosin 0.4 Mg Cap.Er.24h) 0.4 mg PO DAILY [facility] Last Admin: 09/29/23 09:07 Dose: 0.4 mg Physical examination: VITAL SIGNS: He 7.4, 74, 18, 110/64, 97% on 3 L GENERAL: Reclining in bed, comfortable EYES: Pupils equal. Conjunctiva normal. HEENT: External appearance of nose and ears normal, oral cavity grossly normal. NECK: JVD unable to assess; masses not palpable. HEART: First and second heart sounds are normal; decreased in edema LUNGS: Respiratory rate normal; decreased breath sound. ABDOMEN: Soft, nontender, liver spleen not palpable, no masses palpable. PSYCH: [Alert and oriented x3; mood and affect normal MUSCULOSKELETAL:No Clubbing/cyanosis;muscles-grossly intact. OA NEUROLOGICAL: Cranial nerves grossly intact; no facial asymmetry, chronically decreased pwer lower extremity INVESTIGATIONS, reviewed in the clinical context: September 29: Sodium 136 potassium 3.2 bicarb 41 creatinine 0.71 Limited echocardiogram: LV function appears to be borderline normal September 27: White count 6.6 hemoglobin 11.7 platelets 171 sodium 134 potassium 3.7 BUN 36 creatinine 0.5 to Venous Doppler lower extremity: Bilateral negative for DVT Liver ultrasound: Hepatomegaly with hepatic steatosis. Assessment and plan: -Acute on chronic diastolic heart failure.: Slow to respond IV Lasix drip 10 mg an hour -Right pleural effusion, chronic Seen by by pulmonary. Not for thoracentesis. -COPD in a prior smoker: Better DuoNeb 4 times a day. . Nebulized Pulmicort - acute on chronic cor pulmonale exacerbation : Slow to respond Lasix drip 10 mg an hour Fluid restriction -BPH Flomax 0.4 mg daily -Chronic hypoxic respiratory failure, multifactorial 2-3 L of oxygen at home -Moderate secondary pulmonary hypertension, multifactorial -Mild to moderate mitral and aortic regurgitation -Essential hypertension Lopressor 25 mg twice a day -Chronic DVT Xarelto -Bipolar disorder Olanzapine. Cymbalta. -Chronic medical debility patient is chronically bedbound. -Chronic bilateral lower extremity venous insufficiency Phil wrap's -Acute cellulitis of the right leg. IV Ancef. Followed by ID -GERD Omeprazole -Obesity hypoventilation syndrome -Obstructive sleep apnea uses CPAP -Morbid obesity BMI 51 Weight loss measures, outpatient -Diabetes mellitus type 2 ozempic -Metabolic alkalosis from diuresis Diamox -Full code. Continue with Lasix to 50, patient having good urine output. Other medications to continue. Discussed.
--- NOTE | 2023-09-29 13:37 | P.PN ---
Subjective Progress Note Date: 09/29/23 Principal diagnosis: Chest pain, chronic restrictive lung disease with chronic hypoxic and hypercapnic respiratory failure On 09/26/2023, the patient is being seen in for shortness of breath and chest pain and significant fluid overload. The patient is known to me. He is bedri dden and he has multiple medical problems and comorbidities. He has chronic restrictive lung disease with chronic hypoxic and hypercapnic respiratory failure and he has a trilogy ventilator at home. The patient was in the hospital approximately 10 days ago and at that time the patient had a urinary tract infection with pseudomonas aeruginosa. He also had enterococcus faecalis VRE in the urine. The patient was discharged home on IV cefepime via a PICC line catheter. The patient comes in with above-mentioned complaints. He has obvious signs of fluid overload. He also encountered chest pain. Troponins are 0.07 0.05 respectively 2 and the patient has no history of coronary artery disease and his EKG is negative. Currently is feeling any chest pain. Chest x-ray findings are chronic with a chronic interstitial edema and volume loss and a chronic right- sided pleural effusion. The echoes at 9.2 with hemoglobin of 11.5 and a platelet count of 200. UA is showing only 1 WBC, 9 RBCs. The patient's proBNP level is 474. The sodium levels of 134, BUN is 45 with a creatinine of 0.7. No altered mentation. He is currently on 3 L of oxygen by nasal cannula and his hemodynamically stable. Patient was reevaluated today on 09/27/23, patient is doing better today, no further episodes of chest pain he does have some vague chest discomfort on and off, seen by cardiology, patient does not seem to be in any distress. No shortness of breath, on 3 L with O2 saturation of 98%, and his blood pressure is 129/68 temp 98 2. CBC is relatively normal basic metabolic profile is normal except for bicarb of 46. Patient does have chronic hypercapnic respiratory failure with metabolic compensation. Venous Doppler is negative for DVT chest x-ray on admission showed cardiomegaly and moderate right-sided pleural effusion/atelectasis involving right lower lobe. Patient was seen by c ardiology, felt to have persistent atrial fibrillation and acute on chronic diastolic congestive heart failure Patient was reevaluated today on 09/28/2023, no active pulmonary symptoms, patient feels fine, he actually reports improvement in his shortness of breath, continues to have significant swelling throughout and edema, maintained on Lasix drip at 10 mg an hour. Patient put out over 6 L in the last 24 hours. Basic metabolic profile showed bicarb of 49 BUN 53 creatinine 0.56. Liver enzymes are noted to be elevated. Reevaluated today on 09/29/2023, patient continues to diurese and he continues to do well. Remains on Lasix drip at 10 mg per hour is also on Diamox 250 mg twice a day. Patient has been diuresing significantly and he is definitely in a negative fluid balance over the last few days. Pulmonary-ortega he has no cough no wheezing no shortness of breath. Patient feels great. Electrolytes noted to have low potassium of 3.2 he does have elevated bicarb of 41. BUN is 27 creatinine is 0.7 Objective - Vital Signs Vital signs: Vital Signs Temp 97.4 F L 09/29/23 09:09 Pulse 74 09/29/23 12:27 Resp 18 09/29/23 12:27 BP 110/64 09/29/23 12:27 Pulse Ox 97 09/29/23 12:27 FiO2 Intake & Output 09/28/23 09/29/23 09/29/23 18:59 06:59 18:59 Intake Total 422 564.333 240 Output Total 4200 2525 1250 Balance -3778 -1960.667 -1010 Intake: Intake, IV Titration 200 87.333 Amount Furosemide 100 mg In 200 87.333 Sodium Chloride 0.9% 90 ml @ 10 MG/HR 10 mls/hr IV .Q10H [facility] Rx#: [id number] Oral 222 [id number] 240 Output: Urine 4200 2525 1250 Other: Voiding Method Urinal Urinal Urinal # Voids 2 - Exam GENERAL EXAM: Alert, obese 62-year-old male, on 3 L nasal cannula, in no apparent distress. Morbidly obese, O2 saturations 97% HEAD: Normocephalic. HEENT: PERRLA, EOMI, nonicteric, neck masses no JVD CHEST: No chest wall deformity. LUNGS: Symmetrical chest expansion diminished breath sounds at the bases CVS: S1 and S2 normal with no audible murmur, regular rhythm. ABDOMEN: Morbidly obese No hepatosplenomegaly, normal bowel sounds, no guarding or rigidity. SKIN: No rashes CENTRAL NERVOUS SYSTEM: No focal deficits, tone is normal in all 4 extremities. EXTREMITIES: 1+ bipedal edema. No clubbing, no cyanosis. Peripheral pulses are intact. - Labs CBC & Chem 7: 09/27/23 06:47 09/29/23 08:10 Labs: Abnormal Lab Results - Last 24 Hours (Table) 09/29/23 09/29/23 09/29/23 Range/Units 05:57 08:10 11:52 Sodium 136 L (137-145) mmol/L Potassium 3.2 L (3.5-5.1) mmol/L Chloride 85 L (98-107) mmol/L Carbon Dioxide 41 H* (22-30) mmol/L BUN 27 H (9-20) mg/dL Glucose 142 H (74-99) mg/dL POC Glucose (mg/dL) 125 H 136 H (70-110) mg/dL Assessment and Plan Assessment: Impression: Atypical chest pain, resolved Acute on chronic diastolic congestive heart failure Restrictive lung disease Chronic right-sided pleural effusion History of DVT, maintained on Xarelto Paroxysmal atrial fibrillation History of underlying COPD History of CVA Type 2 diabetes History of GI bleeding History of pulmonary embolism Benign essential hypertension Morbid obesity with BMI of 51 History of bariatric surgery Obstructive sleep apnea syndrome on trilogy ventilator at home Recommendation: Continue Lasix drip, transitioned to IV push Lasix in the next 24 hours Continue Diamox Continue oxygen Continue Avaps at night Definitely no need for thoracentesis Continue anticoagulation therapy/ Xarelto We will continue to follow Time with Patient: Less than 30
[2023-09-29] MEDS: MAGNESIUM OXIDE 400 MG TAB PO SCH (14:23)
[2023-09-29 16:59] LABS: Glucose,Whole Blood 130 mg/dL (70-110)
[2023-09-29] MEDS: OLANZapine 10 MG TAB PO SCH (19:46)
[2023-09-29 20:46] LABS: Glucose,Whole Blood 172 mg/dL (70-110)
[2023-09-30 06:13] LABS: Glucose,Whole Blood 67 mg/dL (70-110)
[2023-09-30] MEDS: PANTOPRAZOLE 40 MG TABLET PO SCH (06:20)
[2023-09-30] MEDS: oxyCODONE-APAP 10-325MG 1 EACH TAB PO PRN (06:20)
[2023-09-30] MEDS: INSULIN ASPART (NovoLOG) 100 UNIT/ML VIAL SQ SCH ×2 (06:20→11:58)
[2023-09-30 06:28] LABS: Glucose,Whole Blood 61 mg/dL (70-110)
[2023-09-30 06:50] LABS: Glucose,Whole Blood 142 mg/dL (70-110)
[2023-09-30] MEDS: IPRATROPIUM-ALBUTEROL 3 ML NEB INHALATION SCH ×3 (08:09→15:58)
[2023-09-30] MEDS: BUDESONIDE 0.5 MG/2 ML NEBU INHALATION SCH (08:09)
[2023-09-30] MEDS: TAMSULOSIN 0.4 MG CAP.ER.24H PO SCH (08:22)
[2023-09-30] MEDS: MAGNESIUM OXIDE 400 MG TAB PO SCH (08:22)
[2023-09-30] MEDS: acetaZOLAMIDE 250 MG TAB PO SCH (08:22)
[2023-09-30] MEDS: METOPROLOL TARTRATE 25 MG TAB PO SCH ×2 (08:22→15:47)
[2023-09-30] MEDS: DULoxetine HCL 60 MG CAPSULE.DR PO SCH (08:22)
[2023-09-30] MEDS: ASPIRIN 81 MG PO SCH (08:22)
[2023-09-30] MEDS: SPIRONOLACTONE 25 MG TAB PO SCH (08:22)
[2023-09-30 09:07] LABS: African American GFR (CKD) >90 (>60 ml/min/1.73 sqM); Anion Gap 9 mmol/L; Blood Urea Nitrogen 33 mg/dL (9-20); Calcium 9.3 mg/dL (8.4-10.2); Chloride 89 mmol/L (98-107); Glucose 87 mg/dL (74-99); Non-African American GFR(CKD) >90 (>60 ml/min/1.73 sqM); Potassium 3.4 mmol/L (3.5-5.1); Sodium 138 mmol/L (137-145)
[2023-09-30 09:14] LABS: Carbon Dioxide 40 mmol/L (22-30)
[2023-09-30] MEDS: FUROSEMIDE 10 MG/ML 4 ML VIAL IV SCH ×2 (09:39→15:47)
[2023-09-30 10:12] LABS: Glucose,Whole Blood 107 mg/dL (70-110)
--- NOTE | 2023-09-30 11:07 | P.PN ---
Subjective HISTORY OF PRESENT ILLNESS: Patient is pleasant 62-year-old male with a history of congestive heart failure, COPD, DVT, hypertension, hyperlipidemia, atrial fibrillation, pulmonary embolism, sleep apnea, obesity, heart catheterization 2013 with normal coronary arteries who presents secondary to chest pain. He has had multiple admissions to [facility] for heart failure and lower extremity edema. He states he has been noticing increasing lower extremity edema as well as chest tightness sensation and therefore came to emergency department. He denies any fevers or chills. Denies any lightheadedness. EKG shows sinus tachycardia, normal axis, no significant ST or T wave abnormalities. Troponin 0.07, 0.05, 0.06. Hemoglobin 11.5, white blood cell 9.9, BUN 45, creatinine 0.47. 09/27/2023 Patient examined this morning at the bedside. Patient denies chest pain or pressure. He continues to report shortness of breath. Patient has significant lower extremity edema. He remains on IV Lasix. Vital signs are stable. He remains on 4 L nasal cannula to maintain oxygen saturations greater than 92%. 09/28/2023 Patient examined this morning at the bedside. patient currently denies chest pain or pressure. He reports improvement in his shortness of breath. He continues to have lower extremity edema. He is maintained on a Lasix drip at 10 mg an hour. Urine output over the last 24 hours is greater than 6 L. 09/29/2023 Patient examined this morning at the bedside. Patient denies chest pain or pressure. He currently denies shortness of breath. He remains on a Lasix drip at 10 mg an hour. Urine output over the last 24 hours is greater than 6 L. The patient does report having frequent nosebleeds this morning. 09/30/2023 Patient examined this morning at the bedside. Patient denies any chest pain or pressure. He denies shortness of breath. He remains on IV Lasix infusion. Patient's lower extremity edema has significantly improved. Urine output over the last 24 hours is almost 3 L. PHYSICAL EXAM: VITAL SIGNS: Reviewed. GENERAL: Well-developed in no acute distress. NECK: Supple. No JVD or thyromegaly LUNGS: Respirations even and unlabored. Lungs essentially clear to auscultation bilaterally. HEART: Regular rate and rhythm. S1 and S2 heard. EXTREMITIES: Normal range of motion. No clubbing or cyanosis. Peripheral pulses intact. 2-3+ bilateral lower extremity edema ASSESSMENT: 1. Acute on chronic diastolic heart failure 2. Persistent atrial fibrillation, currently sinus rhythm 3. Morbid obesity 4. Mildly elevated troponin 5. Chest pain may be related to heart failure versus other 6. Normal coronary arteries by prior heart catheterization 2013 7. Hypertension 8. Epistaxis PLAN: Continue current cardiac medications Discontinue Lasix drip. Begin IV Lasix 40 mg every 8 hours Patient is very anxious to be discharged home today. Tomorrow is his birthday and he states he does not want to be in the hospital for his birthday. From a cardiac standpoint, the patient may be discharged home this evening after receiving 2 doses of IVP Lasix Recommend Bumex 2 mg twice a day at discharge Further recommendations pending patient's course Nurse practitioner note has been reviewed by physician. Signing provider agrees with the documented findings, assessment, and plan of care. Objective - Vital Signs Vital signs: Vital Signs Temp 98.2 F 09/30/23 08:00 Pulse 72 09/30/23 08:20 Resp 16 09/30/23 08:00 BP 124/63 09/30/23 08:00 Pulse Ox 95 09/30/23 08:12 FiO2 Intake & Output 09/29/23 09/30/23 09/30/23 18:59 06:59 18:59 Intake Total 520 960 240 Output Total 1650 1200 550 Balance -1130 -240 -310 Intake: Intake, IV Titration 100 Amount Furosemide 100 mg In 100 Sodium Chloride 0.9% 90 ml @ 10 MG/HR 10 mls/hr IV .Q10H [facility] Rx#: [id number] Oral 420 [id number] 240 Output: Urine 1650 1200 550 Other: Voiding Method Urinal Urinal Urinal - Labs CBC & Chem 7: 09/27/23 06:47 09/30/23 08:16 Labs: Abnormal Lab Results - Last 24 Hours (Table) 09/29/23 09/29/23 09/29/23 Range/Units 11:52 16:57 20:44 Potassium (3.5-5.1) mmol/L Chloride (98-107) mmol/L Carbon Dioxide (22-30) mmol/L BUN (9-20) mg/dL POC Glucose (mg/dL) 136 H 130 H 172 H (70-110) mg/dL 09/30/23 09/30/23 09/30/23 Range/Units 06:11 06:27 06:48 Potassium (3.5-5.1) mmol/L Chloride (98-107) mmol/L Carbon Dioxide (22-30) mmol/L BUN (9-20) mg/dL POC Glucose (mg/dL) 67 L 61 L 142 H (70-110) mg/dL 09/30/23 Range/Units 08:16 Potassium 3.4 L (3.5-5.1) mmol/L Chloride 89 L (98-107) mmol/L Carbon Dioxide 40 H (22-30) mmol/L BUN 33 H (9-20) mg/dL POC Glucose (mg/dL) (70-110) mg/dL
[2023-09-30 11:40] LABS: Glucose,Whole Blood 139 mg/dL (70-110)
--- NOTE | 2023-09-30 12:26 | P.PN ---
Subjective Progress Note Date: 09/29/23 Principal diagnosis: Leukocytosis and right leg cellulitis Patient is a 62-year-old male with a past medical history significant for hypertension hyperlipidemia osteoarthritis PE COPD DVT atrial fibrillation with recent admission to the hospital patient did have a Pseudomonas urinary tract infection , now presented to the hospital chest pain shortness of breath also noticed to have increasing swelling and some redness to the right leg. On today's evaluation that is 09/29/2023, the patient continues to be afebrile , the patient is breathing comfortably on 4 L nasal cannula oxygen, the patient denies any shortness of breath, the patient denies any chest pain and no cough or sputum production, patient denies abdominal pain and no nausea/vomiting or diarrhea , feeling better no new symptoms Patient did have white count was 6.6 as of 09/27/2023, creatinine is 0.71, Doppler was negative for DVT Objective - Vital Signs Vital signs: Vital Signs Temp 97.4 F L 09/29/23 09:09 Pulse 80 09/29/23 11:36 Resp 18 09/29/23 09:09 BP 124/55 09/29/23 09:09 Pulse Ox 97 09/29/23 09:09 FiO2 Intake & Output 09/28/23 09/29/23 09/29/23 18:59 06:59 18:59 Intake Total 422 564.333 240 Output Total 4200 2525 1250 Balance -3778 -1960.667 -1010 Intake: Intake, IV Titration 200 87.333 Amount Furosemide 100 mg In 200 87.333 Sodium Chloride 0.9% 90 ml @ 10 MG/HR 10 mls/hr IV .Q10H [facility] Rx#: [id number] Oral 222 477 240 Output: Urine 4200 2525 1250 Other: Voiding Method Urinal Urinal Urinal # Voids 2 - Exam GENERAL DESCRIPTION: Middle-age male lying in bed in no distress RESPIRATORY SYSTEM: Unlabored breathing , clear to auscultation anteriorly HEART: S1 S2 regular rate and rhythm , ABDOMEN: Soft , no tenderness EXTREMITIES: Bilateral legs are currently wrapped in Phil wrap no drainage - Labs CBC & Chem 7: 09/27/23 06:47 09/30/23 08:16 Labs: Abnormal Lab Results - Last 24 Hours (Table) 11/01/23 11/01/23 11/01/23 Range/Units 05:57 08:10 11:52 Sodium 136 L (137-145) mmol/L Potassium 3.2 L (3.5-5.1) mmol/L Chloride 85 L (98-107) mmol/L Carbon Dioxide 41 H* (22-30) mmol/L BUN 27 H (9-20) mg/dL Glucose 142 H (74-99) mg/dL POC Glucose (mg/dL) 125 H 136 H (70-110) mg/dL Assessment and Plan (1) Leukocytosis Current Visit: Yes Status: Acute Code(s): D72.829 - ELEVATED WHITE BLOOD CELL COUNT, UNSPECIFIED SNOMED Code(s): 545641427 (2) Cellulitis of right leg Current Visit: Yes Status: Acute Code(s): L03.115 - CELLULITIS OF RIGHT LOWER LIMB SNOMED Code(s): 80000935761549663 Plan: 1patient with recent admission to the hospital with a UTI Pseudomonas, patient was negative has been adequately treated as the patient did have a negative UA on this admission 2-patient will present hospital with increasing shortness of breath and chest pain did have elevated troponin being monitored by cardiology 3-patient also have increasing swelling to bilateral extremity and redness to the right leg concerning for cellulitis 4- bilateral extremity Doppler was negative for DVT 5patient has shown clinical improvement will continue with cefazolin 2 g every 8 hours however along with Phil wrap to keep the swelling down and monitor cl inical course closely Dictation was produced using [employer] dictation software. please excuse any gr ammatical, word or spelling errors. Time with Patient: Less than 30
--- NOTE | 2023-09-30 12:28 | P.PN ---
Subjective Progress Note Date: 09/30/23 Principal diagnosis: Leukocytosis and right leg cellulitis Patient is a 62-year-old male with a past medical history significant for hypertension hyperlipidemia osteoarthritis PE COPD DVT atrial fibrillation with recent admission to the hospital patient did have a Pseudomonas urinary tract infection , now presented to the hospital chest pain shortness of breath also noticed to have increasing swelling and some redness to the right leg. On today's evaluation that is 09/30/2023, the patient denies any fever or any chills , the patient is breathing comfortably on 3 L nasal cannula supplemental oxygen, the patient denies any chest pain or cough and no sputum production, patient denies abdominal pain and no nausea/vomiting or diarrhea , no new symptoms Patient did have white count was 6.6 as of 09/27/2023, creatinine is 0.82, Doppler was negative for DVT Objective - Vital Signs Vital signs: Vital Signs Temp 98.2 F 09/30/23 08:00 Pulse 72 09/30/23 11:31 Resp 16 09/30/23 08:00 BP 124/63 09/30/23 08:00 Pulse Ox 95 09/30/23 08:12 FiO2 Intake & Output 09/29/23 09/30/23 09/30/23 18:59 06:59 18:59 Intake Total 520 960 240 Output Total 1650 1200 550 Balance -1130 -240 -310 Intake: Intake, IV Titration 100 Amount Furosemide 100 mg In 100 Sodium Chloride 0.9% 90 ml @ 10 MG/HR 10 mls/hr IV .[facility]H [facility] Rx#: [id number] Oral 420 960 240 Output: Urine 1650 1200 550 Other: Voiding Method Urinal Urinal Urinal - Exam GENERAL DESCRIPTION: Middle-age male lying in bed in no distress RESPIRATORY SYSTEM: Unlabored breathing , clear to auscultation anteriorly HEART: S1 S2 regular rate and rhythm , ABDOMEN: Soft , no tenderness EXTREMITIES: Right leg swelling and redness has decreased - Labs CBC & Chem 7: 09/27/23 06:47 09/30/23 08:16 Labs: Abnormal Lab Results - Last 24 Hours (Table) 09/29/23 09/29/23 09/30/23 Range/Units 16:57 20:44 06:11 Potassium (3.5-5.1) mmol/L Chloride (98-107) mmol/L Carbon Dioxide (22-30) mmol/L BUN (9-20) mg/dL POC Glucose (mg/dL) 130 H 172 H 67 L (70-110) mg/dL 09/30/23 09/30/23 09/30/23 Range/Units 06:27 06:48 08:16 Potassium 3.4 L (3.5-5.1) mmol/L Chloride 89 L (98-107) mmol/L Carbon Dioxide 40 H (22-30) mmol/L BUN 33 H (9-20) mg/dL POC Glucose (mg/dL) 61 L 142 H (70-110) mg/dL 09/30/23 Range/Units 11:39 Potassium (3.5-5.1) mmol/L Chloride (98-107) mmol/L Carbon Dioxide (22-30) mmol/L BUN (9-20) mg/dL POC Glucose (mg/dL) 139 H (70-110) mg/dL Assessment and Plan (1) Leukocytosis Current Visit: Yes Status: Acute Code(s): D72.829 - ELEVATED WHITE BLOOD CELL COUNT, UNSPECIFIED SNOMED Code(s): 793422332 (2) Cellulitis of right leg Current Visit: Yes Status: Acute Code(s): L03.115 - CELLULITIS OF RIGHT LOWER LIMB SNOMED Code(s): 65122565579425374 Plan: 1patient with recent admission to the hospital with a UTI Pseudomonas, patient was negative has been adequately treated as the patient did have a negative UA on this admission 2-patient will present hospital with increasing shortness of breath and chest pain did have elevated troponin being monitored by cardiology 3-patient also have increasing swelling to bilateral extremity and redness to the right leg concerning for cellulitis 4- bilateral extremity Doppler was negative for DVT 5patient has shown clinical improvement will finish therapy with oral Keflex prescription was sent to the pharmacy and patient has been advised Phil wrap to keep the swelling down and prevent recurrent cellulitis Dictation was produced using [employer] dictation software. please excuse any grammatical, word or spelling errors. Time with Patient: Less than 30
[2023-09-30 12:39] VITALS: BP 130/65; RESP 19; TEMP 98.9
--- NOTE | 2023-09-30 14:08 | P.PN ---
Subjective Progress Note Date: 09/30/23 Principal diagnosis: Chest pain, chronic restrictive lung disease with chronic hypoxic and hypercapnic respiratory failure On 09/26/2023, the patient is being seen in for shortness of breath and chest pain and significant fluid overload. The patient is known to me. He is bedri dden and he has multiple medical problems and comorbidities. He has chronic restrictive lung disease with chronic hypoxic and hypercapnic respiratory failure and he has a trilogy ventilator at home. The patient was in the hospital approximately 10 days ago and at that time the patient had a urinary tract infection with pseudomonas aeruginosa. He also had enterococcus faecalis VRE in the urine. The patient was discharged home on IV cefepime via a PICC line catheter. The patient comes in with above-mentioned complaints. He has obvious signs of fluid overload. He also encountered chest pain. Troponins are 0.07 0.05 respectively 2 and the patient has no history of coronary artery disease and his EKG is negative. Currently is feeling any chest pain. Chest x-ray findings are chronic with a chronic interstitial edema and volume loss and a chronic right- sided pleural effusion. The echoes at 9.2 with hemoglobin of 11.5 and a platelet count of 200. UA is showing only 1 WBC, 9 RBCs. The patient's proBNP level is 474. The sodium levels of 134, BUN is 45 with a creatinine of 0.7. No altered mentation. He is currently on 3 L of oxygen by nasal cannula and his hemodynamically stable. Patient was reevaluated today on 09/27/23, patient is doing better today, no further episodes of chest pain he does have some vague chest discomfort on and off, seen by cardiology, patient does not seem to be in any distress. No shortness of breath, on 3 L with O2 saturation of 98%, and his blood pressure is 129/68 temp 98 2. CBC is relatively normal basic metabolic profile is normal except for bicarb of 46. Patient does have chronic hypercapnic respiratory failure with metabolic compensation. Venous Doppler is negative for DVT chest x-ray on admission showed cardiomegaly and moderate right-sided pleural effusion/atelectasis involving right lower lobe. Patient was seen by c ardiology, felt to have persistent atrial fibrillation and acute on chronic diastolic congestive heart failure Patient was reevaluated today on 09/28/2023, no active pulmonary symptoms, patient feels fine, he actually reports improvement in his shortness of breath, continues to have significant swelling throughout and edema, maintained on Lasix drip at 10 mg an hour. Patient put out over 6 L in the last 24 hours. Basic metabolic profile showed bicarb of 49 BUN 53 creatinine 0.56. Liver enzymes are noted to be elevated. Reevaluated today on 09/29/2023, patient continues to diurese and he continues to do well. Remains on Lasix drip at 10 mg per hour is also on Diamox 250 mg twice a day. Patient has been diuresing significantly and he is definitely in a negative fluid balance over the last few days. Pulmonary-ortega he has no cough no wheezing no shortness of breath. Patient feels great. Electrolytes noted to have low potassium of 3.2 he does have elevated bicarb of 41. BUN is 27 creatinine is 0.7 Reevaluated today on 09/30/23, patient is now on Lasix IV push, continues to diurese, remains in negative balance, patient denies any specific pulmonary symptoms, no cough no wheezing no shortness of breath on 3 L nasal cannula with O2 sat showed 99% Basic metabolic profile showed a potassium of 3.4, bicarbonate 40 BUN 33 creatinine 0.8, patient is on Lasix 40 mg IV push every 8 hours, he is also on Diamox 250 mg by mouth twice a day Objective - Vital Signs Vital signs: Vital Signs Temp 98.9 F 09/30/23 12:00 Pulse 86 09/30/23 13:07 Resp 19 09/30/23 13:07 BP 130/65 09/30/23 12:00 Pulse Ox 99 09/30/23 12:00 FiO2 Intake & Output 09/29/23 09/30/23 09/30/23 18:59 06:59 18:59 Intake Total 520 960 240 Output Total 1650 1200 550 Balance -1130 -240 -310 Intake: Intake, IV Titration 100 Amount Furosemide 100 mg In 100 Sodium Chloride 0.9% 90 ml @ 10 MG/HR 10 mls/hr IV .Q10H [facility] Rx#: [id number] Oral 420 960 240 Output: Urine 1650 1200 550 Other: Voiding Method Urinal Urinal Urinal - Exam GENERAL EXAM: Alert, obese 62-year-old male, on 3 L nasal cannula, in no apparent distress. HEAD: Normocephalic. HEENT: PERRLA, EOMI, nonicteric, neck masses no JVD CHEST: No chest wall deformity. LUNGS: Symmetrical chest expansion diminished breath sounds at the bases CVS: S1 and S2 normal with no audible murmur, regular rhythm. ABDOMEN: Morbidly obese No hepatosplenomegaly, normal bowel sounds, no guarding or rigidity. SKIN: No rashes CENTRAL NERVOUS SYSTEM: No focal deficits, tone is normal in all 4 extremities. EXTREMITIES: 1+ bipedal edema. No clubbing, no cyanosis. Peripheral pulses are intact. - Labs CBC & Chem 7: 09/27/23 06:47 09/30/23 08:16 Labs: Abnormal Lab Results - Last 24 Hours (Table) 09/29/23 09/29/23 09/30/23 Range/Units 16:57 20:44 06:11 Potassium (3.5-5.1) mmol/L Chloride (98-107) mmol/L Carbon Dioxide (22-30) mmol/L BUN (9-20) mg/dL POC Glucose (mg/dL) 130 H 172 H 67 L (70-110) mg/dL 09/30/23 09/30/23 09/30/23 Range/Units 06:27 06:48 08:16 Potassium 3.4 L (3.5-5.1) mmol/L Chloride 89 L (98-107) mmol/L Carbon Dioxide 40 H (22-30) mmol/L BUN 33 H (9-20) mg/dL POC Glucose (mg/dL) 61 L 142 H (70-110) mg/dL 09/30/23 Range/Units 11:39 Potassium (3.5-5.1) mmol/L Chloride (98-107) mmol/L Carbon Dioxide (22-30) mmol/L BUN (9-20) mg/dL POC Glucose (mg/dL) 139 H (70-110) mg/dL Assessment and Plan Assessment: Impression: Atypical chest pain, resolved Acute on chronic diastolic congestive heart failure Restrictive lung disease Chronic right-sided pleural effusion History of DVT, maintained on Xarelto Paroxysmal atrial fibrillation History of underlying COPD History of CVA Type 2 diabetes History of GI bleeding History of pulmonary embolism Benign essential hypertension Morbid obesity with BMI of 51 History of bariatric surgery Obstructive sleep apnea syndrome on trilogy ventilator at home Recommendation: Continue Lasix IV push, however could consider transitioning to oral Lasix Continue Diamox, 250 mg by mouth twice a day Continue oxygen Continue Avaps at night Consider discharge planning if cleared by other consultants Continue anticoagulation therapy/ Xarelto We will continue to follow Time with Patient: Less than 30
[2023-09-30 16:23] LABS: Glucose,Whole Blood 93 mg/dL (70-110)
[2023-09-30 16:27] VITALS: PULSE 72
--- NOTE | 2023-10-01 13:55 | P.DS ---
Providers Date of admission: 09/26/23 02:05 Expected date of discharge: 10/01/23 Attending physician: Roge Bashir Consults: 09/26/23 01:01 Consult Physician Urgent Consulting Provider: [facility] Consult Reason/Comments: NSTEMI Do you want consulting provider notified?: Yes Consult Physician Urgent Consulting Provider: Leonides Whitt Consult Reason/Comments: Difficulties with IV abx initiation Do you want consulting provider notified?: Yes 09/26/23 05:06 Consult Physician Routine Consulting Provider: Ynes Hendrickson Consult Reason/Comments: SOB , right pleural effusion Do you want consulting provider notified?: Yes, Notify in am Primary care physician: Antelmo Crenshaw MD Hospital Course: Chief Complaint: chest pain 62 year old male with complex past medical history he is coming in for chest pain and shortness of breath increase from his baseline. he was recently hospitalized and discharged on 09/16 where he was treated for multifactorial SOB (COPD , CHF) and found to have UTI pseudomonus and discharge on cefepime 2 gm IVPB q8hr for 1 week however, he could not secure the medications until 2 days ago. this time , he reports sudden onset chest pain , he is bed ridden, described and pressure like across his chest and radiates to his jaw, he claims that he had couple episodes that would last 5 minutes, but with worsening shortness of breath that has been getting worse, and feels weaker than usual, and decided to come in for evaluation . no report of fever, chills, sore throat, muscle aches, sick contacts, GI bleed, patient does not have vidales cath and claims he has been urinating with no difficulties. patient has not walked since 2019 and has chronic leg edema bilaterally and weeping edema from his left leg. he is short of breath all the time , and uses home oxygen 2 L . he is known to have moderate size right sided pleural effusion , that has not changed since his last hospital stay , which was evaluated by pulmonary service and no recommendations made for thoracentesis at that time . upon further workup in the ED , heis found to have elevated trops , and admitted for cardiac workup to rule out ACS September 27: I assumed care of the patient today. This is a 62-year-old patient who follows with visiting physicians Dr. Crenshaw. Extensive medical history. Patient been not able to walk since 2018 has gradually become very weak. Baseline some short of breath for 2 years. chronic pain in multiple joints. Normally has a bowel movement every day. Has control of his bladder. Has chronic lower extremity edema. Home oxygen 2 L. Lives with his son and daughter. Recently admitted from September 13 through September 16. [place] to be cor pulmonale and COPD exacerbation. Breathing a bit better. Oral intake good. On Lasix drip. Had a bowel movement. September 28: Remains on Lasix drip. Negative fluid balance. Eating fair. 3 L nasal cannula September 29: On Lasix drip. Good urine output. Some decrease in edema. Eating fair. Patient very keen to go home as he has his birthday on [birth year]. September 30: Patient doing much better. Extremely keen to go home because of his birthday. We'll discharge on oral diuretics and fluid restriction. Questions answered. Patient to follow-up with PCP and cardiology. Physical examination: VITAL SIGNS: 98.9, 86, 19, 1:30/65, 99% on 3 L GENERAL: Reclining in bed, comfortable EYES: Pupils equal. Conjunctiva normal. HEENT: External appearance of nose and ears normal, oral cavity grossly normal. NECK: JVD unable to assess; masses not palpable. HEART: First and second heart sounds are normal; decreased in edema LUNGS: Respiratory rate normal; decreased breath sound. ABDOMEN: Soft, nontender, liver spleen not palpable, no masses palpable. PSYCH: [Alert and oriented x3; mood and affect normal MUSCULOSKELETAL:No Clubbing/cyanosis;muscles-grossly intact. OA NEUROLOGICAL: Cranial nerves grossly intact; no facial asymmetry, chronically decreased pwer lower extremity INVESTIGATIONS, reviewed in the clinical context: September 30: Sodium 138 creatinine 0.82 September 29: Sodium 136 potassium 3.2 bicarb 41 creatinine 0.71 Limited echocardiogram: LV function appears to be borderline normal September 27: White count 6.6 hemoglobin 11.7 platelets 171 sodium 134 potassium 3.7 BUN 36 creatinine 0.5 to Venous Doppler lower extremity: Bilateral negative for DVT Liver ultrasound: Hepatomegaly with hepatic steatosis. Assessment and plan: -Acute on chronic diastolic heart failure.: Much better Received IV Lasix drip. Changed to Bumex 2 mg by mouth twice a day. Diamox. Fluid restriction. -Right pleural effusion, chronic Seen by by pulmonary. Not for thoracentesis. -COPD in a prior smoker: Better DuoNeb 4 times a day. . Nebulized Pulmicort - acute on chronic cor pulmonale exacerbation : Better Lasix drip 10 mg an hour-changed to Bumex Fluid restriction -BPH Flomax 0.4 mg daily -Chronic hypoxic respiratory failure, multifactorial 2-3 L of oxygen at home -Moderate secondary pulmonary hypertension, multifactorial -Mild to moderate mitral and aortic regurgitation -Essential hypertension Lopressor 25 mg twice a day -Chronic DVT Xarelto -Bipolar disorder Olanzapine. Cymbalta. -Chronic medical debility patient is chronically bedbound. -Chronic bilateral lower extremity venous insufficiency Phil wrap's -Acute cellulitis of the right leg. IV Ancef.-Changed over to Keflex 5 mg every 6 for 7 days Followed by ID -GERD Omeprazole -Obesity hypoventilation syndrome -Obstructive sleep apnea uses CPAP -Morbid obesity BMI 51 Weight loss measures, outpatient -Diabetes mellitus type 2 ozempic -Metabolic alkalosis from diuresis Diamox -Full code. Disposition: Home Plan - Discharge Summary Discharge Rx Participant: No New Discharge Prescriptions: New Aspirin 81 mg PO DAILY tab acetaZOLAMIDE [Diamox] 250 mg PO BID #60 tab Bumetanide [BUMEX] 2 mg PO BID #60 tablet Cephalexin [Keflex] 500 mg PO Q6HR 7 Days #28 cap Continue Rivaroxaban [Xarelto] 20 mg PO HS OLANZapine 20 mg PO HS Omeprazole 20 mg PO DAILY DULoxetine HCL [Cymbalta] 60 mg PO DAILY Tamsulosin HCl [Flomax] 0.4 mg PO DAILY Albuterol Sulfate [Ventolin HFA] 1 - 2 puff INHALATION RT-Q6H PRN PRN Reason: Shortness Of Breath Cholecalciferol [Vitamin D3 (25 Mcg = 1000 Iu)] 25 mcg PO DAILY Spironolactone [Aldactone] 25 mg PO DAILY Potassium Chloride ER [K-Dur 20] 20 meq PO TID Budesonide [Pulmicort] 0.5 mg INHALATION RT-BID Magnesium Oxide [Magox 400] 400 mg PO DAILY Naloxone HCl 1 spray NASAL DIRECTED PRN PRN Reason: Opioid Reversal Tiotropium 2.5 Mcg/Puff [Spiriva Respimat 2.5 Mcg] 2 puff INHALATION RT-DAILY oxyCODONE-APAP 10-325MG [Percocet 10-325 mg] 1 tab PO Q6H PRN PRN Reason: Pain Ipratropium-Albuterol Nebulize [Duoneb 0.5 mg-3 mg/3 ml Soln] 3 ml INHALATION RT-QID Docusate [Colace] 100 mg PO DAILY PRN PRN Reason: Constipation Ferrous Sulfate [Iron] 325 mg PO DAILY Nystatin 100,000 Unit/ml Susp [Mycostatin Oral Susp] 10 ml PO QID PRN PRN Reason: thrush Semaglutide [Ozempic] 0.25 mg SQ MO Relaxium Sleep Supplement 4 capsule PO HS Changed Metoprolol Tartrate [Lopressor] 25 mg PO TID #0 Discontinued Bumetanide [BUMEX] 1 mg PO BID predniSONE See Taper PO DIRECTED Ceftazidime/Avibactam [Avycaz 2.5 Gram Vial] 2 gm IVPB Q8H Discharge Medication List Rivaroxaban [Xarelto] 20 mg PO HS 07/14/19 [History] OLANZapine 20 mg PO HS 10/29/20 [History] Omeprazole 20 mg PO DAILY 03/27/21 [History] DULoxetine HCL [Cymbalta] 60 mg PO DAILY 09/05/21 [History] Albuterol Sulfate [Ventolin HFA] 1 - 2 puff INHALATION RT-Q6H PRN 10/28/21 [History] Tamsulosin HCl [Flomax] 0.4 mg PO DAILY 10/28/21 [History] Tiotropium 2.5 Mcg/Puff [Spiriva Respimat 2.5 Mcg] 2 puff INHALATION RT-DAILY 10/28/21 [History] Cholecalciferol [Vitamin D3 (25 Mcg = 1000 Iu)] 25 mcg PO DAILY 09/09/22 [History] Spironolactone [Aldactone] 25 mg PO DAILY 09/09/22 [History] Budesonide [Pulmicort] 0.5 mg INHALATION RT-BID 03/17/23 [History] Docusate [Colace] 100 mg PO DAILY PRN 03/17/23 [History] Ipratropium-Albuterol Nebulize [Duoneb 0.5 mg-3 mg/3 ml Soln] 3 ml INHALATION RT-QID 03/17/23 [History] Potassium Chloride ER [K-Dur 20] 20 meq PO TID 03/17/23 [History] oxyCODONE-APAP 10-325MG [Percocet 10-325 mg] 1 tab PO Q6H PRN 03/17/23 [History] Ferrous Sulfate [Iron] 325 mg PO DAILY 05/21/23 [History] Magnesium Oxide [Magox 400] 400 mg PO DAILY 08/27/23 [History] Nystatin 100,000 Unit/ml Susp [Mycostatin Oral Susp] 10 ml PO QID PRN 08/27/23 [History] Relaxium Sleep Supplement 4 capsule PO HS 08/27/23 [History] Semaglutide [Ozempic] 0.25 mg SQ MO 08/27/23 [History] Naloxone HCl 1 spray NASAL DIRECTED PRN 09/10/23 [History] Aspirin 81 mg PO DAILY tab 09/30/23 [Rx] Bumetanide [BUMEX] 2 mg PO BID #60 tablet 09/30/23 [Rx] Cephalexin [Keflex] 500 mg PO Q6HR 7 Days #28 cap 09/30/23 [Rx] Metoprolol Tartrate [Lopressor] 25 mg PO TID #0 09/30/23 [Rx] acetaZOLAMIDE [Diamox] 250 mg PO BID #60 tab 09/30/23 [Rx] Follow up Appointment(s)/Referral(s): Mel Fernández MD [STAFF PHYSICIAN] - 1 Week Antelmo Crenshaw MD [Primary Care Provider] - 1-2 days [facility], [NON-STAFF] - Patient Instructions/Handouts: Cellulitis (ED) Discharge Disposition: HOME WITH HOME HEALTH SERVICES
== END 2023-09-30 17:36 | disposition home health service (06) | DRG 291 ==
LOC: EC 22:45 → 3SCARD 09-26 02:05
PROVIDERS: ADMIT Hospitalist; ATTEND Hospitalist
DX: I11.0 Hypertensive heart disease with heart failure (principal); I50.33 Acute on chronic diastolic (congestive) heart failure; I48.19 Other persistent atrial fibrillation; Z68.43 Body mass index [BMI] 50.0-59.9, adult; L03.116 Cellulitis of left lower limb; E66.2 Morbid (severe) obesity with alveolar hypoventilation; E87.3 Alkalosis; J44.1 Chronic obstructive pulmonary disease with (acute) exacerbation; L03.115 Cellulitis of right lower limb; J96.11 Chronic respiratory failure with hypoxia; J96.12 Chronic respiratory failure with hypercapnia; R53.1 Weakness; I27.20 Pulmonary hypertension, unspecified; I27.81 Cor pulmonale (chronic); I27.29 Other secondary pulmonary hypertension; F25.9 Schizoaffective disorder, unspecified; I08.0 Rheumatic disorders of both mitral and aortic valves; E11.9 Type 2 diabetes mellitus without complications; D64.9 Anemia, unspecified; R74.01 Elevation of levels of liver transaminase levels; N40.0 Benign prostatic hyperplasia without lower urinary tract symptoms; R53.81 Other malaise; K21.9 Gastro-esophageal reflux disease without esophagitis; Z99.81 Dependence on supplemental oxygen; E78.5 Hyperlipidemia, unspecified; F41.0 Panic disorder [episodic paroxysmal anxiety]; G89.29 Other chronic pain; I87.2 Venous insufficiency (chronic) (peripheral); J98.4 Other disorders of lung; R04.0 Epistaxis; F31.9 Bipolar disorder, unspecified; Z96.641 Presence of right artificial hip joint; Z79.01 Long term (current) use of anticoagulants; Z74.01 Bed confinement status; Z79.51 Long term (current) use of inhaled steroids; Z79.82 Long term (current) use of aspirin; Z85.828 Personal history of other malignant neoplasm of skin; Z86.14 Personal history of Methicillin resistant Staphylococcus aureus infection; Z86.16 Personal history of COVID-19; Z86.711 Personal history of pulmonary embolism; Z86.73 Personal history of transient ischemic attack (TIA), and cerebral infarction without residual deficits; Z98.84 Bariatric surgery status; Z87.440 Personal history of urinary (tract) infections; Z79.899 Other long term (current) drug therapy; Z86.718 Personal history of other venous thrombosis and embolism; Z82.49 Family history of ischemic heart disease and other diseases of the circulatory system
CPT/HCPCS: 36415; 71046; 76705; 80048; 80053; 81001; 82803; 83036; 83735; 83880; 84484; 85025; 85610; 85730; 93005; 93308; 93970; 94640; 94760

== ENCOUNTER 2023-11-02 12:33 | Day surgery (SDC) | payer MEDICARE, BC ==
[~2023-11-02 12:33] MED LIST: LACTATED RINGERS 1,000 ML IV SCH; ONDANSETRON 4 MG/2 ML VIAL IVP ONE; RIVAROXABAN 20 MG TAB PO SCH; ceFAZolin 3 GM in SODIUM CHLORIDE 0.9% 100 ML IVPB PRN; fentaNYL (PF) 50 MCG/ML 2 ML AMP IV PRN; metroNIDAZOLE-NS PMX 500 MG in SALINE 1 100ML.BAG IVPB PRN
[2023-11-02 13:07] LABS: Glucose,Whole Blood 87 mg/dL (70-110)
[2023-11-02 13:46] LABS: ALT 15 U/L (4-49); AST 20 U/L (17-59); African American GFR (CKD) >90 (>60 ml/min/1.73 sqM); Albumin 3.2 g/dL (3.5-5.0); Alkaline Phosphatase 96 U/L (38-126); Blood Urea Nitrogen 24 mg/dL (9-20); Calcium 9.6 mg/dL (8.4-10.2); Chloride 92 mmol/L (98-107); Glucose 79 mg/dL (74-99); Non-African American GFR(CKD) >90 (>60 ml/min/1.73 sqM); Potassium 4.1 mmol/L (3.5-5.1); Sodium 138 mmol/L (137-145); Total Bilirubin 0.5 mg/dL (0.2-1.3); Total Protein 5.6 g/dL (6.3-8.2)
[2023-11-02 13:54] LABS: Anion Gap 9 mmol/L; Carbon Dioxide 37 mmol/L (22-30)
[2023-11-02 13:55] LABS: Basophils # (A) 0.1 k/uL (0-0.2); Basophils % (A) 1 %; Eosinophils # (A) 0.1 k/uL (0-0.7); Eosinophils % (A) 3 %; HCT 34.3 % (39.0-53.0); Hypochromasia Marked; Lymphocytes # (A) 0.8 k/uL (1.0-4.8); Lymphocytes % (A) 15 %; MCH 30.1 pg (25.0-35.0); MCHC 31.9 g/dL (31.0-37.0); MCV 94.3 fL (80.0-100.0); Mean Platelet Volume 7.1; Monocytes # (A) 0.4 k/uL (0-1.0); Monocytes % (A) 7 %; Neutrophils # (A) 4.1 k/uL (1.3-7.7); Neutrophils % (A) 73 %; Platelet Count 317 k/uL (150-450); RBC 3.64 m/uL (4.30-5.90); RDW 15.6 % (11.5-15.5); WBC 5.6 k/uL (3.8-10.6)
[2023-11-02] MEDS ORDERED: GLYCOPYRROLATE 0.2 MG/ML 2 ML VIAL ONE (14:10)
[2023-11-02] MEDS ORDERED: LIDOCAINE 1% INJ 10MG/ML (20 ML MDV) ONE (14:10)
[2023-11-02] MEDS ORDERED: PROPOFOL 10 MG/ML 20 ML VIAL IV ONE (14:10)
[2023-11-02] MEDS ORDERED: SUCCINYLCHOLINE CHLORIDE 200 MG/10 ML VIAL IV ONE (14:10)
[2023-11-02] MEDS ORDERED: LIDOCAINE 2%-EPI 1:100,000 20 ML VIAL SQ ONE (14:33)
[2023-11-02] MEDS ORDERED: BUPIVACAINE (PF) 0.25% 30 ML VIAL SQ ONE (14:37)
[2023-11-02] MEDS ORDERED: GELATIN SPONGE,ABSORB (SMALL) 1 EACH SPONGE MISCELLANE ONE (15:15)
--- NOTE | 2023-11-02 16:32 | P.OP ---
Date of Procedure: 11/02/23 Preoperative Diagnosis: Decay and periodontal abscess Postoperative Diagnosis: Post surgical extraction of remaining teeth Procedure(s) Performed: Surgical extraction of all remaining teeth numbers 4,5,6,7,8,9,11,13, 14, 15, 18, 20, 21, 22, 23, 24, 25, 27, 28, 29, 30 Buccal alveoloplasty of the areas of #4 through 7 Alveoloplasty the area #9 through the 13 alveoloplasty area #20 through 23 Alveoloplasty the area #26 through 29 Anesthesia: GETA Surgeon: Julio C Garcia Estimated Blood Loss (ml): 20 IV fluids (ml): 700 Urine output (ml): 0 Pathology: none sent Condition: stable Disposition: PACU Indications for Procedure: Patient of record came in for occasional extractions over the years. When asking to have all remaining teeth removed due to limited access to dental care. We have been planning this for several years but due to social barriers that procedure had never been completed. Last August the patient tried to come into my office for an examination after not being in the office for quite some time. He reported over the phone that his teeth and degraded to the point where they needed to not be extracted. Unfortunately the patient is bedridden and EMS could not get the patient through the office door due to his increased size. Patient did have a biweekly examination by his physician and this confirmed that his dental decay was chronic in nature no acute abscess is noted. She is unsure as to whether denies any get a denture at this time but his teeth were significantly decayed per his CAT scan and physician the decision was made to bring the patient to the hospital and perform as hospital surgery. Operative Findings: None Description of Procedure: Patient was consented in the preoperative holding area including but not limited to bleeding pain infection and swelling he did report that he had stopped his Xarelto for 3 days prior and he did report that he had stopped his ozempic 1 dose prior. She was also educated again about how dentures are not easy to make without a dental office and this might not be possible given his limited access to dental care. The bedside exam revealed multiple grossly decayed teeth with no active infection but nonrestorable dentition. Patient was educated about how dry sockets were self-limiting and recommended follow-up care on his and as- needed basis or with telemedicine. Patient understood the risks the procedure and agreed to proceed. Patient wasn't taken to the operating room moved over to the bed after he was intubated and thus he was able to be team lifted and rolled over. Patient was then secured to the bed in the usual fashion and prepped and draped in usual fashion for clean contaminated oral surgery. 10 mL of quarter percent Marcaine and 10 mL of 2% lidocaine was administered and a infiltrative and block manner. The patient then had a throat pack and a bite block placed and the tube was secured off to the right side. Attention given to the left side and teeth numbers 18 201912/20/2019 02/19/2025 were approached with a buccal flap. This revealed a bony exostoses which were removed down to two thirds of the root in an effort to aid removal and nursing assistant possible future denture where. Copious irrigation was used and all sharp spots were removed. 40 plain gut suture was administered in an effort to reapproximate the tissues. Small piece of Gelfoam were placed in each socket to aid in hemostasis. Then given to the upper left were full flap from [id number] with buccal exostoses removed with a hand piece and the teeth luxated and delivered without difficulty. Sharp pieces removed primary closure with 40 Rodolfo gut and small pieces Gelfoam into each socket. Lower right accessed after removing the throat pack and the bite block and the intubation tube over to the left full-thickness flap from 30 through 25. Large exostoses to the buccal of 27 was removed as well as smaller exostoses on the premolar teeth. This allowed for easy removal of teeth numbers 20 06/25/2029 and 30 sharp bones were filed down and primary closure with 40 plain gut suture. Small piece of Gelfoam placed in each socket to aid in postoperative hemostasis. Upper right with a flap from [address]1716 the canine eminence again was reshaped and buccal bone removal with a bur. Primary closure with 40 plain gut suture and small pieces of Gelfoam into each socket. Posterior oropharynx was cleared of the throat pack and suctioned with minimal blood and saliva present. No pieces of tooth fragments of bone were noted hemostasis looked good 10 4 x 4 gauze were placed at each quadrant an effort to prevent future bleeding. The patient was transferred back to his sharp [facility] awakened in the operating room as an awake extubation and placed on BiPAP temporarily due to a elevated CO2 which appear chronic in nature. Patient to be sent home on Tylenol Extra Strength Peridex mouth rinse and a 1 week supply of amoxicillin. The patient is on Percocets for chronic pain in the Tylenol will supplement this. She is to restart his Xarelto tomorrow morning for tomorrow afternoon depending on when his normal dose time as patient's to follow up on an as-needed basis with telemedicine visit. Plan - Discharge Summary Discharge Rx Participant: No New Discharge Prescriptions: No Action Rivaroxaban [Xarelto] 20 mg PO HS OLANZapine 20 mg PO HS Omeprazole 20 mg PO DAILY DULoxetine HCL [Cymbalta] 60 mg PO DAILY Tamsulosin HCl [Flomax] 0.4 mg PO DAILY Albuterol Sulfate [Ventolin HFA] 1 - 2 puff INHALATION RT-Q6H PRN PRN Reason: Shortness Of Breath Spironolactone [Aldactone] 25 mg PO DAILY Potassium Chloride ER [K-Dur 20] 20 meq PO TID Budesonide [Pulmicort] 0.5 mg INHALATION RT-BID Magnesium Oxide [Magox 400] 400 mg PO DAILY Naloxone HCl 1 spray NASAL DIRECTED PRN PRN Reason: Opioid Reversal Aspirin 81 mg PO DAILY tab acetaZOLAMIDE [Diamox] 250 mg PO BID #60 tab Metoprolol Tartrate [Lopressor] 25 mg PO TID #0 Bumetanide [BUMEX] 2 mg PO BID #60 tablet Cephalexin [Keflex] 500 mg PO Q6HR 7 Days #28 cap Ergocalciferol [Vitamin D2 (1250 Mcg = 63062 Iu)] 1,250 mcg PO TH Tiotropium 2.5 Mcg/Puff [Spiriva Respimat 2.5 Mcg] 2 puff INHALATION RT-DAILY oxyCODONE-APAP 10-325MG [Percocet 10-325 mg] 1 tab PO Q6H PRN PRN Reason: Pain Ipratropium-Albuterol Nebulize [Duoneb 0.5 mg-3 mg/3 ml Soln] 3 ml INHALATION RT-QID Docusate [Colace] 100 mg PO DAILY PRN PRN Reason: Constipation Nystatin 100,000 Unit/ml Susp [Mycostatin Oral Susp] 10 ml PO QID PRN PRN Reason: thrush Semaglutide [Ozempic] 0.25 mg SQ MO Relaxium Sleep Supplement 4 capsule PO HS Discharge Medication List Rivaroxaban [Xarelto] 20 mg PO HS 07/14/19 [History] OLANZapine 20 mg PO HS 10/29/20 [History] Omeprazole 20 mg PO DAILY 03/27/21 [History] DULoxetine HCL [Cymbalta] 60 mg PO DAILY 09/05/21 [History] Albuterol Sulfate [Ventolin HFA] 1 - 2 puff INHALATION RT-Q6H PRN 10/28/21 [History] Tamsulosin HCl [Flomax] 0.4 mg PO DAILY 10/28/21 [History] Tiotropium 2.5 Mcg/Puff [Spiriva Respimat 2.5 Mcg] 2 puff INHALATION RT-DAILY 10/28/21 [History] Spironolactone [Aldactone] 25 mg PO DAILY 09/09/22 [History] Budesonide [Pulmicort] 0.5 mg INHALATION RT-BID 03/17/23 [History] Docusate [Colace] 100 mg PO DAILY PRN 03/17/23 [History] Ipratropium-Albuterol Nebulize [Duoneb 0.5 mg-3 mg/3 ml Soln] 3 ml INHALATION RT-QID 03/17/23 [History] Potassium Chloride ER [K-Dur 20] 20 meq PO TID 03/17/23 [History] oxyCODONE-APAP 10-325MG [Percocet 10-325 mg] 1 tab PO Q6H PRN 03/17/23 [History] Magnesium Oxide [Magox 400] 400 mg PO DAILY 08/27/23 [History] Nystatin 100,000 Unit/ml Susp [Mycostatin Oral Susp] 10 ml PO QID PRN 08/27/23 [History] Relaxium Sleep Supplement 4 capsule PO HS 08/27/23 [History] Semaglutide [Ozempic] 0.25 mg SQ MO 08/27/23 [History] Naloxone HCl 1 spray NASAL DIRECTED PRN 09/10/23 [History] Aspirin 81 mg PO DAILY tab 09/30/23 [Rx] Bumetanide [BUMEX] 2 mg PO BID #60 tablet 09/30/23 [Rx] Cephalexin [Keflex] 500 mg PO Q6HR 7 Days #28 cap 09/30/23 [Rx] Metoprolol Tartrate [Lopressor] 25 mg PO TID #0 09/30/23 [Rx] acetaZOLAMIDE [Diamox] 250 mg PO BID #60 tab 09/30/23 [Rx] Ergocalciferol [Vitamin D2 (1250 Mcg = 17113 Iu)] 1,250 mcg PO TH 10/28/23 [History]
[2023-11-02 16:35] VITALS: TEMP 97
[2023-11-02] MEDS ORDERED: HYDROmorphone 0.5 MG/0.5 ML SYRINGE IVP ONE ×2 (16:36→16:54)
[2023-11-02 16:37] LABS: Glucose,Whole Blood 109 mg/dL (70-110)
[2023-11-02 16:57] VITALS: RESP 16
[2023-11-02 18:01] VITALS: BP 122/78; PULSE 80
== END 2023-11-02 18:07 | disposition home or self-care (01) ==
LOC: OR 12:33
PROVIDERS: ATTEND Dentist Oral and Maxillofacial Surgery
DX: K02.52 Dental caries on pit and fissure surface penetrating into dentin (principal); I11.0 Hypertensive heart disease with heart failure; I50.9 Heart failure, unspecified; I48.91 Unspecified atrial fibrillation; E78.5 Hyperlipidemia, unspecified; J44.9 Chronic obstructive pulmonary disease, unspecified; G47.33 Obstructive sleep apnea (adult) (pediatric); K21.9 Gastro-esophageal reflux disease without esophagitis; Z79.01 Long term (current) use of anticoagulants; Z90.49 Acquired absence of other specified parts of digestive tract; Z96.641 Presence of right artificial hip joint; Z98.890 Other specified postprocedural states; Z79.899 Other long term (current) drug therapy
CPT/HCPCS: 80053; 85025; 41899; J0330; J0690; J2405; J2001; J2704; J1170; J0665